=== PATIENT | female | born 1975 | race Caucasian/White ===

== ENCOUNTER 2023-02-05 13:14 | Emergency (ER) | payer BC, MEDICAID, SELFPAY ==
[2023-02-05 13:18] VITALS: BP 130/97; PULSE 97; RESP 20; TEMP 36.6; O2SAT 98; BMI 42.0
--- NOTE | 2023-02-05 13:39 | ED.GENADUL1 ---
HPI - General Adult General Chief complaint: Extremity Problem, Nontraumatic Stated complaint: LOWER EXTREMITY PAIN, LEFT CALF Time Seen by Provider: 02/05/23 13:31 Source: patient Mode of arrival: walk-in Limitations: no limitations History of Present Illness HPI narrative: 48 year old female presents to the ED for left calf pain. She had left knee surgery on 12/21/22 for a torn meniscus. She has had mild calf discomfort since the surgery. Over the past few days her discomfort has increased. States it is now severe. She is in physical therapy. She has been ambulatory with crutches. Denies fever, chills, recent injury. She has intermittent swelling to the left ankle, intermittent N/T to the first and second toes of the left foot. She had a venous Doppler on Wednesday02/02/23 which ruled out a DVT. She has Percocet from her procedure that she takes PRN. Rates her pain 8/10 at this time. Denies chance of . Location: Reports lower extremity Radiation: Reports non-radiation Severity: severe Quality: Reports other (cramping, spasms) Pain Consistency: Reports constant Relieving factors: Reports none Associated symptoms: Reports denies other symptoms Review of Systems ROS Constitutional Denies: fever, chills or fatigue Cardiovascular Denies: chest pain or edema Respiratory Denies: shortness of breath or cough Gastrointestinal Denies: vomiting or diarrhea Musculoskeletal Reports: extremity pain, extremity swelling and muscle cramps; Denies: muscle weakness Integumentary/Breast Denies: rash, itching or redness Neurological Denies: headache or dizziness Exam Constitutional: Vital Signs, click to edit/add: Vital Signs - 24 hr 02/05/23 13:18 Temperature 98 F Pulse Rate [Monito r] 97 H Respiratory Rate 20 Blood Pressure [Le ft Arm] 130/97 H Pulse Oximetry 98 Oxygen Delivery Me thod Room Air Common normals: no apparent distress and oriented x3 General appearance: cooperative; not in distress, not ill appearing and not diaphoretic Respiratory: Common normals: normal respiratory effort Cardio: Rhythm: regular rhythm Peripheral pulses: popliteal pulses present, posterior tibial pulses present and dorsalis pedis pulses present Extremity: Common normals: normal to inspection General: normal exam except as noted Left lower extremity: knee joint Left knee: inspection (No erythema, drainage noted to surgical incision sites; healing well.) and ROM (Full ROM.), lower leg (Tenderness to left calf area. No swelling, erythema, wound, bruising noted.) Left lower leg: inspection and palpation and ankle joint Left ankle: inspection (No swelling noted.), palpation (Nontender.), ROM (Full ROM.) and neurovascular exam (Distal sensation intact.) Skin: Common normals: no rashes or lesions noted, no wounds and no jaundice Course Vital Signs Vital signs: Vital Signs Temperature 98 F 02/05/23 13:18 Pulse Rate 97 H 02/05/23 13:18 Respiratory Rate 20 02/05/23 13:18 Blood Pressure 130/97 H 02/05/23 13:18 Pulse Oximetry 98 02/05/23 13:18 Oxygen Delivery Method Room Air 02/05/23 13:18 Temperature 98 F 02/05/23 13:18 Pulse Rate 97 H 02/05/23 13:18 Respiratory Rate 20 02/05/23 13:18 Blood Pressure 130/97 H 02/05/23 13:18 Pulse Oximetry 98 02/05/23 13:18 Oxygen Delivery Method Room Air 02/05/23 13:18 Discharge Plan Discharge Chief Complaint: Extremity Problem, Nontraumatic Referrals: CARL MONTOYA [Primary Care Provider] - 1 week
[2023-02-05] MEDS: KETOROLAC TROMETHAMINE 60 MG/2 ML VIAL IM (13:53)
[2023-02-05 14:15] LABS: BUN Creatinine Ratio 19.1; Calcium 8.5 mg/dL (8.5-10.1); Carbon Dioxide 27.2 mmol/L (21.0-32.0); Chloride 104 mmol/L (98-107); Estimated GFR (African America >60 (>=60); Estimated GFR (Non-African Ame >60 (>=60); Glucose 93 mg/dL (74-106); Magnesium 1.8 mg/dL (1.8-2.4); Potassium 4.2 mmol/L (3.5-5.1); Sodium 139 mmol/L (136-145)
[2023-02-05 14:47] LABS: Basophils Percent Auto 0.4 % (0.2-2.0); Eosinophils Absolute Auto 0.1 10^3/uL (0.0-0.7); Eosinophils Percent Auto 1.1 % (0.9-7.0); Hematocrit 33.5 % (36.0-48.0); Immature Granulocytes Abs Auto 0.02 10^3/uL (0.00-0.03); Immature Granulocytes Pct Auto 0.2 % (0.0-0.5); Lymphocytes Percent Auto 24.4 % (20.5-60.0); Mean Corpuscular HGB Conc 29.9 g/dL (29.9-35.2); Mean Corpuscular Hemoglobin 23.9 pg (26.7-34.0); Mean Corpuscular Volume 80.1 fL (81.0-99.0); Mean Platelet Volume 11.2 fL (9.5-13.5); Monocytes Absolute Auto 0.4 10^3/uL (0.3-0.8); Monocytes Percent Auto 4.8 % (1.7-12.0); Neutrophils Absolute Auto 5.6 10^3/uL (1.4-6.5); Neutrophils Percent Auto 69.1 % (43.0-75.0); Platelet Count 308 10^3/uL (150-450); Red Blood Count 4.18 10^6/uL (4.20-5.40); Red Cell Distribution Width 14.6 % (11.0-15.0); White Blood Count 8.1 10^3/uL (4.0-11.0)
--- NOTE | 2023-02-05 15:17 | ED_ITS ---
Documented by User: Tia Monroy 02/05/23 16:22 HPI - General Adult General Chief complaint: Extremity Problem, Nontraumatic Stated complaint: LOWER EXTREMITY PAIN, LEFT CALF Time Seen by Provider: 02/05/23 13:31 Source: patient Mode of arrival: walk-in Limitations: no limitations History of Present Illness HPI narrative: 48 year old female presents to the ED for left calf pain. She had left knee surgery on 12/21/22 for a torn meniscus. She has had mild calf discomfort since the surgery. Over the past few days her discomfort has increased. States it is now severe. She is in physical therapy. She has been ambulatory with crutches. Denies fever, chills, recent injury. She has intermittent swelling to the left ankle, intermittent N/T to the first and second toes of the left foot. She had a venous Doppler on Wednesday02/02/23 which ruled out a DVT. She has Percocet from her procedure that she takes PRN. Rates her pain 8/10 at this time. Denies chance of . Location: Reports lower extremity Radiation: Reports non-radiation Severity: severe Quality: Reports other (cramping, spasms) Pain Consistency: Reports constant Relieving factors: Reports none Associated symptoms: Reports denies other symptoms Related Data Previous Rx's Medication Instructions Recorded tizanidine 2 mg capsule (Zanaflex) 2 mg PO TID PRN muscle spasm #14 02/05/23 caps Review of Systems ROS Constitutional Denies: fever, chills or fatigue Cardiovascular Denies: chest pain, edema or shortness of breath with exertion Respiratory Denies: shortness of breath or cough Gastrointestinal Denies: vomiting or diarrhea Musculoskeletal Reports: extremity pain, extremity swelling and muscle cramps; Denies: muscle weakness Integumentary/Breast Denies: rash, itching or redness Neurological Denies: headache or dizziness Endocrine Denies: fatigue Exam Constitutional: Vital Signs, click to edit/add: Vital Signs - 24 hr 02/05/23 13:18 Temperature 98 F Pulse Rate [Monito r] 97 H Respiratory Rate 20 Blood Pressure [Le ft Arm] 130/97 H Pulse Oximetry 98 Oxygen Delivery Me thod Room Air Common normals: no apparent distress and oriented x3 General appearance: cooperative; not in distress, not ill appearing and not diaphoretic Respiratory: Common normals: normal respiratory effort Cardio: Common normals: regular rhythm Rhythm: regular rhythm Peripheral pulses: popliteal pulses present, posterior tibial pulses present and dorsalis pedis pulses present Extremity: Common normals: normal to inspection General: normal exam except as noted Left lower extremity: knee joint Left knee: inspection (No erythema, drainage noted to surgical incision sites; healing well.) and ROM (Full ROM.), lower leg (Tenderness to left calf area. No swelling, erythema, wound, bruising noted.) Left lower leg: inspection and palpation, ankle joint Left ankle: inspection (No swelling noted.), palpation (Nontender.), ROM (Full ROM.) and neurovascular exam (Distal sensation intact.) and foot and digits Left foot and digits: ROM (Full ROM to left foot. ) and neurovascular exam (Distal sensation intact. ) Neuro: Common normals: oriented x3 Skin: Common normals: no rashes or lesions noted, no wounds and no jaundice General skin exam: no rashes or lesions noted Course Vital Signs Vital signs: Vital Signs Temperature 98 F 02/05/23 13:18 Pulse Rate 97 H 02/05/23 13:18 Respiratory Rate 20 02/05/23 13:18 Blood Pressure 130/97 H 02/05/23 13:18 Pulse Oximetry 98 02/05/23 13:18 Oxygen Delivery Method Room Air 02/05/23 13:18 Temperature 98 F 02/05/23 13:18 Pulse Rate 97 H 02/05/23 13:18 Respiratory Rate 20 02/05/23 13:18 Blood Pressure 130/97 H 02/05/23 13:18 Pulse Oximetry 98 02/05/23 13:18 Oxygen Delivery Method Room Air 02/05/23 13:18 Medical Decision Making MDM Narrative Medical decision making narrative: The patient had a negative venous Doppler of the LLE 3 days ago. CBC, BMP, magnesium labs were completed today. Laboratory studies were unremarkable. Follow up with pcp and orthopedist for a recheck, further evaluation and treatment. Return precautions were discussed. She has crutches with her. A prescription was provided for Zanaflex. Lab Data Lab results reviewed: Yes I reviewed the patient's lab results Labs: Lab Results 02/05/23 Range/Units 13:53 WBC 8.1 (4.0-11.0) 10^3/uL RBC 4.18 L (4.20-5.40) 10^6/uL Hgb 10.0 L (12.0-16.0) g/dL Hct 33.5 L (36.0-48.0) % MCV 80.1 L (81.0-99.0) fL MCH 23.9 L (26.7-34.0) pg MCHC 29.9 (29.9-35.2) g/dL RDW 14.6 (11.0-15.0) % Plt Count 308 (150-450) 10^3/uL MPV 11.2 (9.5-13.5) fL Neut % (Auto) 69.1 (43.0-75.0) % Lymph % (Auto) 24.4 (20.5-60.0) % [place] % (Auto) 4.8 (1.7-12.0) % Eos % (Auto) 1.1 (0.9-7.0) % Baso % (Auto) 0.4 (0.2-2.0) % Neut # (Auto) 5.6 (1.4-6.5) 10^3/uL Lymph # (Auto) 2.0 (1.2-3.8) 10^3/uL [place] # (Auto) 0.4 (0.3-0.8) 10^3/uL Eos # (Auto) 0.1 (0.0-0.7) 10^3/uL Baso # (Auto) 0.0 (0.0-0.1) 10^3/uL Sodium 139 (136-145) mmol/L Potassium 4.2 (3.5-5.1) mmol/L Chloride 104 (98-107) mmol/L Carbon Dioxide 27.2 (21.0-32.0) mmol/L Anion Gap 12.0 BUN 17.0 (7.0-18.0) mg/dL Creatinine 0.89 (0.55-1.02) mg/dL Est GFR ( Amer) >60 (>=60) Est GFR (Non-Af Amer) >60 (>=60) BUN/Creatinine Ratio 19.1 Glucose 93 (74-106) mg/dL Calcium 8.5 (8.5-10.1) mg/dL Magnesium 1.8 (1.8-2.4) mg/dL Discharge Plan Discharge Chief Complaint: Extremity Problem, Nontraumatic Clinical Impression: Pain of left calf Patient Disposition: Home, Self-Care Time of Disposition Decision: 15:34 Condition: Good Mode of Transportation: Private Vehicle Prescriptions / Home Meds: New tizanidine [Zanaflex] 2 mg capsule 2 mg PO TID PRN (Reason: muscle spasm) Qty: 14 0RF Instructions: Muscle Cramp (ED), Leg Pain (ED) Additional Instructions: Follow up with your family physician and orthopedist for a recheck, further evaluation and treatment. Stand Alone Forms: Portal Instructions Referrals: CARL MONTOYA [Physician] - 1 week Discharge Date/Time: 02/05/23 16:15 Documented by User: Alex Zamora MD 02/05/23 19:40 HPI - General Adult General Chief complaint: Extremity Problem, Nontraumatic Stated complaint: LOWER EXTREMITY PAIN, LEFT CALF Time Seen by Provider: 02/05/23 13:31 Related Data Previous Rx's Medication Instructions Recorded tizanidine 2 mg capsule (Zanaflex) 2 mg PO TID PRN muscle spasm #14 02/05/23 caps Exam Constitutional: Vital Signs, click to edit/add: Vital Signs - 24 hr 02/05/23 13:18 Temperature 98 F Pulse Rate [Monito r] 97 H Respiratory Rate 20 Blood Pressure [Le ft Arm] 130/97 H Pulse Oximetry 98 Oxygen Delivery Me thod Room Air Course Vital Signs Vital signs: Vital Signs Temperature 98 F 02/05/23 13:18 Pulse Rate 97 H 02/05/23 13:18 Respiratory Rate 20 02/05/23 13:18 Blood Pressure 130/97 H 02/05/23 13:18 Pulse Oximetry 98 02/05/23 13:18 Oxygen Delivery Method Room Air 02/05/23 13:18 Temperature 98 F 02/05/23 13:18 Pulse Rate 97 H 02/05/23 13:18 Respiratory Rate 20 02/05/23 13:18 Blood Pressure 130/97 H 02/05/23 13:18 Pulse Oximetry 98 02/05/23 13:18 Oxygen Delivery Method Room Air 02/05/23 13:18 Medical Decision Making Lab Data Labs: Lab Results 02/05/23 Range/Units 13:53 WBC 8.1 (4.0-11.0) 10^3/uL RBC 4.18 L (4.20-5.40) 10^6/uL Hgb 10.0 L (12.0-16.0) g/dL Hct 33.5 L (36.0-48.0) % MCV 80.1 L (81.0-99.0) fL MCH 23.9 L (26.7-34.0) pg MCHC 29.9 (29.9-35.2) g/dL RDW 14.6 (11.0-15.0) % Plt Count 308 (150-450) 10^3/uL MPV 11.2 (9.5-13.5) fL Neut % (Auto) 69.1 (43.0-75.0) % Lymph % (Auto) 24.4 (20.5-60.0) % [place] % (Auto) 4.8 (1.7-12.0) % Eos % (Auto) 1.1 (0.9-7.0) % Baso % (Auto) 0.4 (0.2-2.0) % Neut # (Auto) 5.6 (1.4-6.5) 10^3/uL Lymph # (Auto) 2.0 (1.2-3.8) 10^3/uL [place] # (Auto) 0.4 (0.3-0.8) 10^3/uL Eos # (Auto) 0.1 (0.0-0.7) 10^3/uL Baso # (Auto) 0.0 (0.0-0.1) 10^3/uL Sodium 139 (136-145) mmol/L Potassium 4.2 (3.5-5.1) mmol/L Chloride 104 (98-107) mmol/L Carbon Dioxide 27.2 (21.0-32.0) mmol/L Anion Gap 12.0 BUN 17.0 (7.0-18.0) mg/dL Creatinine 0.89 (0.55-1.02) mg/dL Est GFR ( Amer) >60 (>=60) Est GFR (Non-Af Amer) >60 (>=60) BUN/Creatinine Ratio 19.1 Glucose 93 (74-106) mg/dL Calcium 8.5 (8.5-10.1) mg/dL Magnesium 1.8 (1.8-2.4) mg/dL Critical Care Time Critical Care Time Attestation: I, Dr Zamora, have reviewed the above progress note and course of action in the ER; agree with the above. I have personally seen and evaluated this patient, gone over history and physical, and discussed disposition and treatment plan with the patient. Discharge Plan Discharge Chief Complaint: Extremity Problem, Nontraumatic Clinical Impression: Pain of left calf Patient Disposition: Home, Self-Care Time of Disposition Decision: 15:34 Condition: Good Mode of Transportation: Private Vehicle Prescriptions / Home Meds: New tizanidine [Zanaflex] 2 mg capsule 2 mg PO TID PRN (Reason: muscle spasm) Qty: 14 0RF Instructions: Muscle Cramp (ED), Leg Pain (ED) Additional Instructions: Follow up with your family physician and orthopedist for a recheck, further evaluation and treatment. Stand Alone Forms: Portal Instructions Referrals: CARL MONTYOA [Physician] - 1 week Discharge Date/Time: 02/05/23 16:15
== END 2023-02-05 16:15 | disposition home or self-care (01) ==
PROVIDERS: Nurse Practitioner Family; Emergency Provider Emergency Medicine
DX: M79.662 Pain in left lower leg (principal)
CPT/HCPCS: 36415; 80048; 83735; 85025; 96372; 99284

== ENCOUNTER 2024-11-01 11:33 | Outpatient (REF) | payer MEDICARE, MEDICAID, SELFPAY ==
--- OUTSIDE RECORDS SUMMARY | 2024-11-07 11:42 | XMS_ITS | CCD ---
Author Organization [facility] Care Team Providers Care Physical Therapist Aide Name Role Phone MARKER, AMY Admitting Unavailable MARKER, AMY Attending Unavailable SOFIYA COLE Primary Care UnavailRUPINDER Wahl Consulting Unavailable MARKER, AMY Consulting Unavailable AMBREEN ZENDEJAS Consulting Unavailable None, No PCP Unavailable Unavailable Unavailable Unavailable Lidnsay, Toney P Unavailable Melody Brandon Unavailable Sofiya Cole MD Primary Care Provider [phone] Korey Ford MD Attending Provider [phone] Simms DO Toney P Primary Care Provider Toney Montoya MD Primary Care Provider Lindsay KAUFMAN Toney P Primary Care Provider LINDSAY, TONEY P Referring Unavailable HOUSE, TONEY P Primary Care Unavailable NIENBERG, KYLER Whitmore Attending Unavailable HOUSE, TONEY P Referring Unavailable HOUSE, TONEY P Primary Care Unavailable PERRY, ZEESHAN Renteria Attending Unavailable PERRY, ZEESHAN E Referring Unavailable HOUSE, TONEY P Primary Care Unavailable PERRY, ZEESHAN E Admitting Unavailable PERRY, ZEESHAN E Attending Unavailable HOUSE, TONEY P Referring Unavailable HOUSE, TONEY P Primary Care Unavailable HOUSE, TONEY P Referring Unavailable HOUSE, TONEY P Primary Care Unavailable HOUSE, TONEY P Referring Unavailable HOUSE, TONEY P Primary Care Unavailable HOUSE, TONEY P Referring Unavailable HOUSE, TONEY P Primary Care Unavailable PERRY, ZEESHAN E Attending Unavailable PERRY, ZEESHAN E Referring Unavailable HOUSE, TONEY P Primary Care Unavailable PRERY, ZEESHAN E Admitting Unavailable PERRY, ZEESHAN E Attending Unavailable PERRY, ZEESHAN E Referring Unavailable HOUSE, TONEY P Primary Care Unavailable HOUSE, TONEY P Referring Unavailable HOUSE, TONEY P Primary Care Unavailable NIENBERG, KYLER S Attending Unavailable HOUSE, TONEY P Referring Unavailable HOUSE, TONEY P Primary Care Unavailable KYLER CARVAJAL Haim Attending Unavailable HOUSE, TONEY P Referring Unavailable HOUSE, TONEY P Primary Care Unavailable Naye SANTIZO, Sofiya Primary Care Provider [phone] Jorge Aguilar DO Attending Provider [phone] JORGE AGUILAR Attending Unavailable KAT, THI Hanna Attending Unavailable THI STEPHENS Referring Unavailable LAUREN, JORGE Attending Unavailable Lauren, Jorge Admitting Unavailable Sofiya Cole Primary Care Unavailable Lauren, Jorge Attending Unavailable Sofiya Cole Primary Care Unavailable Korey Ford Attending Unavailable Korey Ford Admitting Unavailable Korey Ford Attending Unavailable HOUSE, TONEY P Primary Care Unavailable HOUSE, TONEY P Primary Care Unavailable Logan, Korey Admitting Unavailable Korey Ford Attending Unavailable HOUSE, TONEY P Primary Care Unavailable HOUSE, DO TONEY P Attending Unavailable HOUSE, TONEY P Primary Care Unavailable HOUSE, DO TONEY P Attending Unavailable HOUSE, TONEY P Primary Care Unavailable HOUSE, DO TONEY P Attending Unavailable HOUSE, DO TONEY P Attending Unavailable HOUSE, TONEY P Primary Care Unavailable Allergies Allergy Classification Reported Allergen(s) Allergy Type Date of Onset Reaction(s) Facility (1 source) Amoxicillin Drug Allergy itching Acompli Other (1 source) Amoxicillin Drug Allergy 08-16-2021 [facility] Repository Medications Current Medications Medication Drug Class(es) Dates Sig (Normalized) Sig (Original) acetaminophen 500 mg oral tablet (10 sources) take 1 tablet by mouth every six hours as needed for pain acetaminophen (TYLENOL EXTRA STRENGTH) 500 mg tablet Take 1 tablet (500 mg total) by mouth every 6 (six) hours as needed for pain. Active [id number] 200 actuat albuterol 0.09 mg/actuat metered dose inhaler (2 sources) beta2-Adrenergic Agonist Start: 08-16-2021 take 2 puff(s) by inhalation four times daily as needed Albuterol Sulfate HFA 108 (90 Base) MCG/ACT 2 puffs Inhalation qid prn Aug, Active Start: 09-05-2020 End: 05-18-2024 take 2 puff(s) by mouth every four hours VENTOLIN HFA 90 mcg/actuation inhaler INHALE 2 PUFFS BY MOUTH EVERY 4 HOURS DIRECTED 09/05/2020 05/18/2024 Discontinued amitriptyline hydrochloride 100 mg oral tablet (15 sources) Tricyclic Antidepressant Start: 05-14-2024 End: 09-19-2024 take 1 tablet by mouth once daily at bedtime amitriptyline (ELAVIL) 100 mg tablet Take 1 tablet (100 mg total) by mouth once daily at bedtime. 05/14/2024 Active Azithromycin (1 source) Macrolide Antimicrobial Azithromycin Active busPIRone hydrochloride 10 mg oral tablet (20 sources) Start: 04-26-2024 End: 09-19-2024 busPIRone (BUSPAR) 10 mg tablet Take 1 tablet (10 mg total) by mouth. 04/26/2024 Active take 1 tablet by mouth in the mo rning busPIRone (BUSPAR) 5 mg tablet Take 1 tablet (5 mg total) by mouth in the morning. Active calcium carbonate 1250 mg or al tablet (16 sources) Start: 12-05-2021 calcium carbon ate (OS-CHRIS) 500 mg calcium (1,250 mg) tablet 12/05/2021 Active End: 09-19-2024 take 1 tablet by mouth in the morning calcium carbonate (Os-Chris) 1250 (500 Ca) MG tablet Take 1 tablet by mouth in the morning and 1 tablet before bedtime. 09/19/2024 Discontinued cariprazine 1.5 mg oral capsule (20 sources) Atypical Antipsychotic Start: 10-01-2020 take 1 capsule by mouth once daily VRAYLAR 1.5 mg capsule Take by mouth daily. 10/01/2020 Active Vraylar Active cholecalciferol 0.125 mg oral tablet (15 sources) Vitamin D End: 09-19-2024 take 1 tablet by mouth in the morning cholecalciferol, vitamin D3, 5,000 units tablet Take 1 tablet (5,000 Units total) by mouth in the morning. Active citalopram 20 mg oral tablet (12 sources) Serotonin Reuptake Inhibitor Start: 04-26-2024 End: 09-19-2024 take 1 tablet by mouth in the morning citalopram (CeleXA) 20 mg tablet Take 1 tablet (20 mg total) by mouth in the morning. 04/26/2024 Active dicyclomine hydrochloride 20 mg oral tablet (17 sources) Anticholinergic Start: 08-24-2023 take 1 tablet by mouth every six hours dicyclomine (Bentyl) 20 MG tablet Take 20 mg by mouth every 6 (six) hours 08/24/2023 Active ferrous gluconate 324 mg oral tablet (12 sources) Start: 08-07-2024 take 1 tablet by mouth at mealtime ferrous gluconate (Fergon) 324 (38 Fe) MG tablet Take 324 mg by mouth in the morning. Take with meals. 08/07/2024 Active levothyroxine sodium 0.2 mg oral tablet (20 sources) l-Thyroxine Start: 09-11-2024 End: 09-06-2025 take 1 tablet by mouth once daily levothyroxine (Synthroid, Levoxyl) 200 MCG tablet Indications: Postoperative hypothyroidism (CMS/HCC) Take 1 tablet (200 mcg) by mouth Daily 90 tablet 3 09/11/2024 09/06/2025 Active Start: 09-11-2024 End: 09-06-2025 take 1 tablet by mouth once daily levothyroxine (Synthroid, Levoxyl) 50 MCG tablet Indications: Postoperative hypothyroidism (CMS/HCC) Take 1 tablet (50 mcg) by mouth Daily 90 tablet 3 09/11/2024 09/06/2025 Active Start: 02-19-2024 End: 09-11-2024 take 1 tablet by mouth before mealtime levothyroxine (Synthroid, Unithroid) 300 MCG tablet Take 1 tablet by mouth in the morning. Take before meals. 02/19/2024 09/11/2024 Discontinued (Dose adjustment) Start: 01-01-2022 take 300 ug by mouth in the morning levothyroxine sodium (EUTHYROX ORAL) Take 300 mcg by mouth in the morning. 01/01/2022 Active Start: 12-05-2021 take 1 tablet by sommer th once daily Euthyrox 200 MCG Oral Tablet TAKE 1 TABLET BY MOUTH ONCE DAILY Quantity: 30 Refills: 0 Ordered: 05-Dec-2021 DO Start : 05-Dec-2021 Active End: 05-18-2024 take 1 tablet by mouth in the morning levothyroxine (EUTHYROX) 50 MCG tablet Take 1 tablet (50 mcg total) by mouth in the morning. 05/18/2024 Discontinued (Ineffective) meclizine hydrochloride 25 mg oral tablet (5 sources) Antiemetic Start: 09-14-2024 take 1 tablet by mouth three times daily as needed for dizziness meclizine (Antivert) 25 MG tablet Take 25 mg by mouth 3 (three) times a day as needed for dizziness 09/14/2024 Active meloxicam 7.5 mg oral tablet (11 sources) Nonsteroidal Anti-inflammatory Drug Start: 06-07-2024 take 1 tablet by mouth in the morning meloxicam (MOBIC) 7.5 mg tablet Take 1 tablet (7.5 mg total) by mouth in the morning. 06/07/2024 Active mirtazapine 30 mg oral tablet (11 sources) Start: 06-28-2024 take 1 tablet by mouth at bedtime mirtazapine (Remeron) 30 MG tablet Take 30 mg by mouth at bedtime 06/28/2024 Active omeprazole 40 mg delayed release oral capsule (20 sources) Proton Pump Inhibitor End: 09-19-2024 take 1 capsule by mouth once daily omeprazole (PriLOSEC) [address] capsule Take 40 mg by mouth Daily Active PriLOSEC Active Completed/Discontinued Medications Medication Drug Class(es) Dates Sig (Normalized) Sig (Original) ascorbic acid 500 mg oral capsule (2 sources) Vitamin C End: 09-19-2024 take 1 capsule by mouth once daily Ascorbic Acid (Vitamin C) 500 MG capsule Take 1 each by mouth Daily 09/19/2024 Discontinued aspirin 845 mg / caffeine 65 mg oral powder (1 source) Platelet Aggregation Inhibitor, Nonsteroidal Anti-inflammatory Drug, Central Nervous System Stimulant, Methylxanthine End: 05-18-2024 aspirin-caffeine 845-65 mg powder in packet Take by mouth as needed (headache). 05/18/2024 Discontinued diclofenac sodium 50 mg delayed release oral tablet (1 source) Nonsteroidal Anti-inflammatory Drug Start: 06-16-2023 End: 05-18-2024 take 1 tablet by mouth in the morning, then take 1 tablet by mouth at bedtime diclofenac (VOLTAREN) 50 mg EC tablet Take 1 tablet (50 mg total) by mouth in the morning and 1 tablet (50 mg total) before bedtime. 60 tablet 06/16/2023 05/18/2024 Discontinued dimenhyDRINATE 50 mg oral tablet (1 source) End: 05-18-2024 take 1 tablet by mouth once daily as needed dimenhyDRINATE (DRAMAMINE) 50 mg tablet Take 50 mg by mouth nightly as needed for movement disorders. 05/18/2024 Discontinued docusate sodium 100 mg oral capsule (6 sources) Start: 12-05-2021 End: 09-19-2024 take 1 capsule by mouth twice daily Docusate Sodium 100 MG Oral Capsule TAKE 1 CAPSULE BY MOUTH TWICE DAILY Quantity: 28 Refills: 0 Ordered: 05-Dec-2021 DO Start : 05-Dec-2021 Active doxycycline monohydrate 100 mg oral capsule (1 source) Tetracycline-class Drug Start: 12-17-2020 take 1 capsule by mouth every twelve hours Doxycycline Monohydrate 100 MG 1 capsule Orally every 12 hrs for 7 days Dec, Not-Taking fluticasone propionate 0.05 mg/actuat metered dose nasal spray (2 sources) Corticosteroid Start: 12-17-2020 take 1 spray(s) nasal route once daily Fluticasone Propionate 50 MCG/ACT 1 spray in each nostril Nasally Once a day for 30 day(s) Dec, Not-Taking Start: 11-06-2020 End: 05-18-2024 take 1 spray(s) nasal route once daily fluticasone propionate (FLONASE) 50 mcg/actuation nasal spray Indications: Chronic rhinitis Administer 1 spray into each nostril daily. 15.8 mL 12 11/06/2020 05/18/2024 Discontinued magnesium gluconate 550 mg oral tablet (1 source) End: 05-18-2024 take 1 tablet by mouth in the morning, then take 1 tablet by mouth at bedtime magnesium 30 mg tablet Take 1 tablet (30 mg total) by mouth in the morning and 1 tablet (30 mg total) before bedtime. 05/18/2024 Discontinued methylPREDNISolone 4 MG Oral Tablet Therapy Pack (1 source) Start: 08-07-2021 methylPREDNISo lone 4 MG Oral Tablet Therapy Pack TAKE BY MOUTH DIRECTED ON INSIDE OF PACKAGE Quantity: 21 Refills: 0 Ordered: 07-Aug-2021 DO Start : 07-Aug-2021 Active Omeprazole TBEC (10 sources) Omeprazole TBEC Quantity: 0 Refills: 0 Ordered: 07-Apr-2021 DO Active predniSONE 10 mg oral tablet (2 sources) Start: 08-12-2022 End: 05-18-2024 take 1 tablet by mouth twice daily, then take 1 tablet by mouth once daily predniSONE (DELTASONE) 10 mg tablet TAKE 1 TABLET BY MOUTH TWICE DAILY FOR 7 DAYS. THEN TAKE 1 TABLET ONCE DAILY FOR 7 DAYS UNTIL GONE 08/12/2022 05/18/2024 Discontinued predniSONE Activ e sertraline 25 mg oral tablet (7 sources) Serotonin Reuptake Inhibitor End: 09-19-2024 take 1 tablet by mouth once daily sertraline (Zoloft) 25 MG tablet Take 1 tablet by mouth Daily 09/19/2024 Discontinued Zoloft Active Sertraline HCl CONC (10 sources) Sertraline HCl C ONC Quantity: 0 Refills: 0 Ordered: 07-Apr-2021 DO Active traMADol hydrochloride 50 mg oral tablet (2 sources) Opioid Agonist Start: 2 take 1 tablet by mouth every six hours as needed for pain traMADol HCl - 50 MG Oral Tablet TAKE 1 TABLET Every 6 hours As Needed for pain Quantity: 12 Refills: 0 Ordered: 05-Dec-2021 Edy Dominguez MD Start : 05-Dec-2021 Active traZODone hydrochloride 50 mg oral tablet (1 source) Serotonin Reuptake Inhibitor Start: 1 End: 4 traZODone (DESYREL) 50 mg tablet 09/19/2020 05/18/2024 Discontinued Problems Active Problems Problem Classification Problem Date Documented Date Episodic/Chronic Administrative/social admission (2 sources) Patient encounter status; Translations: [Dietary counseling and surveillance] 09-11-2024 Episodic Anxiety disorders (1 source) Anxiety disorder, unspecified; Translations: [ANXIETY DISORDER UNSPECIFIED] Onset: 09-02-2020 Chronic Cancer of thyroid (11 sources) Malignant tumor of thyroid gland; Translations: [Malignant neoplasm of thyroid gland] Onset: 03-06-2024 09-11-2024 Chronic Complications of surgical procedures or medical care (8 sources) Postoperative hypothyroidism; Translations: [Postprocedural hypothyroidism] Onset: 03-06-2024 09-11-2024 Chronic Conditions associated with dizziness or vertigo (4 sources) Dizziness and giddiness; Translations: [DIZZINESS AND GIDDINESS] Onset: 08-28-2020 Episodic Deficiency and other anemia (2 sources) Iron deficiency anemia; Translations: [Iron deficiency anemia, unspecified] 09-19-2024 Episodic Deficiency and other anemia (1 source) Iron deficiency anemia, unspecified; Translations: [Iron deficiency anemia, unspecified] Onset: 08-01-2024 Episodic Disorders of lipid metabolism (1 source) Hyperlipidemia, unspecified; Translations: [Hyperlipidemia, unspecified] Onset: 06-19-2024 Chronic Essential hypertension (1 source) Essential (primary) hypertension; Translations: [Essential (primary) hypertension] Onset: 06-19-2024 Chronic Nutritional deficiencies (2 sources) Vitamin D deficiency; Translations: [Vitamin D deficiency, unspecified] 09-11-2024 Chronic Osteoarthritis (10 sources) Osteoarthritis of left knee joint; Translations: [Unilateral primary osteoarthritis, left knee] Onset: 11-03-2022 11-03-2022 Chronic Other connective tissue disease (1 source) Arthrodesis status; Translations: [ARTHRODESIS STATUS] Onset: 09-02-2020 Episodic Other female genital disorders (3 sources) Abnormal uterine bleeding; Translations: [Other specified abnormal uterine and vaginal bleeding] 09-19-2024 Chronic Other lower respiratory disease (1 source) Shortness of breath; Translations: [SHORTNESS OF BREATH] Onset: 09-02-2020 Episodic Other lower respiratory disease (1 source) Unspecified acute lower respiratory infection; Translations: [Unspecified acute lower respiratory infection] Onset: 08-14-2024 Episodic Other nervous system disorders (2 sources) Acute postoperative pain; Translations: [Other acute postoperative pain] Episodic Other non-traumatic joint disorders (1 source) Knee pain Onset: 10-26-2024 Episodic Other nutritional; endocrine; and metabolic disorders (10 sources) Body mass index 40+ - severely obese; Translations: [Body mass index (BMI) 40.0-44.9, adult] Onset: 12-04-2020 12-04-2020 Chronic Other nutritional; endocrine; and metabolic disorders (2 sources) Severe obesity; Translations: [Class 3 severe obesity due to excess calories without serious comorbidity with body mass index (BMI) of 40.0 to 44.9 in adult ([facility])] 09-11-2024 Chronic Other nutritional; endocrine; and metabolic disorders (1 source) Obesity, unspecified; Translations: [Obesity, unspecified] Onset: 06-19-2024 Chronic Pulmonary heart disease (1 source) Personal history of pulmonary embolism; Translations: [PERSONAL HISTORY PULMONARY EMBOLISM] Onset: 09-02-2020 Episodic Spondylosis; intervertebral disc disorders; other back problems (20 sources) Lumbosacral spondylosis without myelopathy; Translations: [Spondylosis without myelopathy or radiculopathy, lumbosacral region] Onset: 04-12-2017 09-07-2024 Chronic Spondylosis; intervertebral disc disorders; other back problems (20 sources) Peripheral neuritis; Translations: [Radiculopathy, lumbar region] Onset: 11-19-2021 11-19-2021 Episodic Thyroid disorders (20 sources) Nontoxic goiter, unspecified; Translations: [Thyroid nodule] Onset: 09-02-2020 01-30-2021 Chronic Urinary tract infections (1 source) Urinary tract infection, site not specified; Translations: [UTI SITE NOT SPECIFIED] Onset: 09-02-2020 Episodic Past or Other Problems Problem Classification Problem Date Documented Da te Episodic/Chronic Joint disorders and dislocations; trauma-related (10 sources) Acute tear of meniscus of left knee; Translations: [Unspecified tear of unspecified meniscus, current injury, left knee, initial encounter] Onset: 11-03-2022 11-03-2022 Episodic Mood disorders (10 sources) Mood disorders Onset: 12-25-2020 12-25-2020 Other non-traumatic joint disorders (9 sources) Hip pain; Translations: [Pain in right hip] Onset: 07-18-2018 07-18-2018 Episodic Other non-traumatic joint disorders (1 source) Pain in right hip joint; Translations: [Pain in right hip] Onset: 07-18-2018 07-18-2018 Episodic Unclassified (1 source) Cough R05.9 Onset: 08-16-2021 Resolved: 08-16-2021 Viral infection (1 source) COVID-19 Onset: 08-16-2021 Resolved: 08-16-2021 Results Test Name Value Interpretation Reference Range Facility ECG 12-LEADon 11-05-[address] [address] Electrocardiograph Report Signed Patient: LAURO PINTO MR#: [id number] : 1975 Acct:[id number] Age/Sex: 49 / F ADM Date: 11/03/24 Loc: PST Attending Dr: Jorge Aguilar D.O. Ordering Physician: Jorge Aguilar D.O. Date of Service: 11/03/24 Procedure(s): ECG 12 lead Accession Number(s): [id number] cc: [facility] Test Date: 2024-11-03 Pat Name: LAURO PINTO Department: Room: - Gender: Female Solids Control Technician: : 1975 Requested By: JORGE AGUILAR Order Number: [id number] Reading MD: CHUCKY MANZANO Measurements Intervals [place] Rate: 63 P: 56 FL: 147 QRS: -5 QRSD: 92 T: 17 QT: 410 QTc: 421 Interpretive Statements SINUS RHYTHM Electronically Signed On 11-05-2024 8:08:21 EST by CHUCKY MANZANO Dictated By: Chucky Manzano D.O. Signed By: 11/05/24 0808 DD/ 1358 TD/TT: Universal Winding Machine Operator: [facility] Radiology, Radiologi MD gwyn - 11/05/2024 [place] [address] Electrocardiograph Report Signed Patient: LAURO PINTO MR#: [id number] : 1975 Acct:[id number] Age/Sex: 49 / F ADM Date: 11/03/24 Loc: PST Attending Dr: Jorge Aguilar D.O. Ordering Physician: Jorge Aguilar D.O. Date of Service: 11/03/24 Procedure(s): ECG 12 lead Accession Number(s): [id number] cc: [facility] Test Date: 2024-11-03 Pat Name: LAURO PINTO Department: Room: - Gender: Female Solids Control Technician: : 1975 Requested By: JORGE AGUILAR Order Number: [id number] Reading MD: CHUCKY MANZANO Measurements Intervals [place] Rate: 63 P: 56 FL: 147 QRS: -5 QRSD: 92 T: 17 QT: 410 QTc: 421 Interpretive Statements SINUS RHYTHM Electronically Signed On 11-05-2024 8:08:21 EST by CHUCKY MANZANO Dictated By: Chucky Manzano D.O. Signed By: 11/05/24 0808 DD/ 1358 TD/TT: Universal Winding Machine Operator: [facility] ECG 12-LEADOrdered By: Radio logist Radiology on 11-05-2024 [facility] Work Phone: ECG 12-LEADon 11-03-2024 Radiology Study observation (narrative) [facility] HCG ( test) Ql (U)o n 11-01-2024 Interpretation and review of laboratory results Normal [facility] Preg Test, Ur Negative Negative [facility] Claudio 11-01-2024 L ------ Specimen: [id number] Received: 11/02/24123 Status: WALDO Madsen Num: [id number] Spec Type: Surgical Subm Dr: Jorge Aguilar Tissues: A Endometrium - Biopsy (ENDOMETRIAL BX) Procedures: JADA/Herson Yusuf/Va L4 Age/ Patient Sex Location Account Attending Physician Lauro Pinto 49/F LABELL [id number] Jorge Aguilar SPEC NUM: [id number] RECD: 11/02/24 STATUS: WALDO MADSEN NUM: [id number] MIGUELITO: 11/01/240000 SUBM DR: Jorge Aguilar ENTERED: 11/02/[address]: NEAL TYPE: Surgical DEPT: S ENTERED BY: [id number] RECV BY: [id number] ORDERED: HE/2, Gross/Micro L4 ORDERED: HE/2, Gross/Micro L4 Pathological Diagnosis Endometrium, biopsy: Fragments of stripped surface endometrium with ciliated cell metaplasia and scant endometrial stroma (see comment). Comment: The findings are consistent with endometrial atrophy. The differential diagnosis includes sampling error. Clinical and radiographic correlation is recommended. Clinical Information Dysfunctional uterine bleeding Gross Description Part A is received in formalin labeled with the patients name, date of , and EMBx is a pale perez mucoid material, admixed with feathery duarte-pink tissue fragments, 0.8 x 0.3 x 0.1 cm in aggregate. The specimen is filtered and entirely submitted in a single cassette. (1, ns, [id number] A) Microscopic Description Sections examined support the above rendered diagnosis. Specimen: [id number] Received: 11/02/24 Status: WALDO Madsen Num: [id number] Spec Type: Surgical Subm Dr: Jorge Aguilar Tissues: A Endometrium - Biopsy (ENDOMETRIAL BX) Procedures: HE/2, Gross/Micro L4 Patient: Lauro Pinto [id number] (Continued) Signed (signature on file) India Reyes MD 11/03/24 0838 Normal [facility] Outside Recordson 10-31-2024 Outside Records [id number][id number] Other Radiology Report on 08-15-2024 Rad - Other Radiology Report [id number]#[id number] [facility] XR CHEST 2 VWSon 08-14-2024 XR CHEST 2 VWS XR CHEST 2 VWS XR CHEST 2 VWS INDICATION: Chest cold. FINDINGS: The cardiac silhouette is normal in size. The trachea is midline. No focal pulmonary consolidation. No pleural effusion. No pneumothorax. IMPRESSION: Normal chest x-ray. Finalized by Modesto Montalvo MD on 08/14/2024 4:51 PM Normal [facility] Coding Summaryon 08-02-2024 Coding Summary HTMLBase 64 WylejypoOIb9bUi+PGhlYWQ+PE 1WKUDuZ21vcEYboY5xD0QHJHpY BrzgAWOZWTcLRoJwjrVhBB2teN NjZXJu IC8+HO7gRFDcRetfiSWsa7K4gG U2J10gis0sCEcxtJE6TKCzDfJa nicoo6duwBy2TUvlZqszHsSc BWHosK74YQA5jQ54Rf82wAWrqJ Wrw2madSw8GjQpWXCwTQC5gQow MGblg6JjNZGjK56qlUPav7Q4 CAPfcAvoyHLbKfDhsUW0hZ9yQC zdhgbye2ifiibkFwt7rr24gHHc l5R2bWK0D0XtumC0ZUYtpWUl PhoouPWJyE8sletxd6ktmiifGi FhXQJmMZc1YFf2ZBNztIzmQgLq DF96SMB5OTCvjyHcL3ExXARj rYsiNcF0j2A0Rc7FT5CBIcuaW7 VNTUFSWTwvdGQ+DX27vb25A7Vu QzoxFum1LVAkTCE8eEO3mA1o YVIxNLuwi8R9tFI9C5VmnqGbnf 9tv8sqPJGsJVazC21qjWTbc0N0 JGKfbQX0XVJlrYrpMbYmaL76 Oyc+KLNleDpwh7GbZmovs0pvd5 mygZi2WdrvVYKhwfWreFjhLSG7 l5FfJn9qSMKjvJX8yJQ5oZ6v ObEbKhH6DEpeK985QkIilYJwEv fdK90zW8HxcET+ZOQwCrr6JFWo xAesPL2aK2EkQXFlowihgJCh xXuvLJ9dTMKilirvPZFqwD7cUU DgY6s8LjNaQwL8AKlgG0SbUAYf fecpZj21yD6kHjQdRhR2HZns M6VmvwY2GDDmiYArJLkfAIU8S4 0sa2I7FIRfTVZkPUX6mSQ5pE0u bGlnbjogbGVmdDsgdmVydGlj RAkbYTokJ349OXAliPftMaGeTM luZyBEYXRlOiAgMTEvMjcvMjAy NDwvdGQ+IYRjOEY2aZpjMFFg rRSmDIdcDk1vfJxvcCqyAN6zXI XznhmeLRNvjM4lBTLdmGNzoYjw FA2lXBNpkbpdr586LsZaSEY6 FMNcvUGyT1WmfL5xCyVlSQBwEK XwU1FssAMtQQwdG111IJgxMnZ3 GQBwkxMvK6HmHWDfuFyiCsV7 h8X4Uw2Oq2ZvugcdX8OqkWCrLo GzPhdaSRg1W0PcLczytOP+PC90 ZAWoSQ58VJa0PYT7nZfrSAlx BVRgJ7EswC9tCuXoVFXwXTPlBw c+PHRhYmxlIHdpZHRoPScxMDAl OkSouPlgHW0jTn3yIRBiODGg rLujoFTdFsMzz6kkIALgJFyfHR 9nlBiwQ3EmvAF4MZBcr2b9De86 R77kJ4UdvNF+ZVFkcNW5zHQ7 oR9fGhYqPmL8APcaL248PvSshC BzVatnl9cco3slmDh8OcX3BBDn huZulNstNYC7o3YoYc66S44n IHdpZHRoPSIxNSUiIHZhbGlnbj 2qjW3hCw0+SIElbEO8nQK8uQ5z GsYuNgZ1TLneX388TiPmkRMx Ijxou3jwm8giiVw6HaJlMAFgiy DqeVjzOGH8e0VqEt37F6AerLxi v0EtZdv4kz37zJZvv9D4mUD5 D7JuBORfjpkmkLNswPhoMB3wYQ QfteplIHDpqY3gERAnR9x4MlKj XtH1IHqyW6AtaaZ7WFRdgUOc BVGhlLSBnB6bxgtta8xvxikxAs ChPCVgSVh1FUs0OVWoxKfaUkKt TRW5EuT8GBV5iSYiwR6hoJhd prmvxL5iDpo+ERL4lDKxqOMQMB 1lOjwvdGQ+PXUoDUG3uAwiLMql TWMkqD3eBKEzN0x6WqYgAfM1 XEqwK7FxftP8PPWwrJGaWBRgoC WEdG0mfkylb8wiqufzToBsIMRg MYw1XUb9DBBwdDktLkGkNPZ8 DiG7ASR4fDOctR7woIokosvgjW 9wOyc+RxupdFamHWH6XLk7D8Um Sst8GJMzdIqfSX4lwQUrLUtp Lv4dbPbjzOiqRC3lKPHkwpxrp3 00CeCrv9zaJCSilJFyORfwXZJ0 D19bx5S6ZCXbILRiHQU4yEW7 oE9jwFzdhyvitFBxqInnimLcuE iuHYtbCKcfL229QSCrtUaqWyRx VSt4K1MoCrj9UFCncDaqMD8d aNReLDigLs2vrQpflLpzYT8kYW Siaolen911DhFgg3eeCBYzkVEr AGrhNKL2V54fl7U1ECZcXCYk GAV4kOK4tC0juGfhekynoJKarB gabzBumNdhRBsdETddH086FDLd oJuxAgNofAi5H4DcHyh5XMLe cFycUB0tkJBvQKnvYg4tiEzmtL ppZX8uEALqymvqg458RaKaf0ht CXWwyXKuSLsmQIN4Q32xg0Z2 TEKbBZEgHNV5iAV4rV6exLscav ogbGVmdDsgdmVydGljYWwtYWxp Y190YZWkwUuyTdNerUskqkHt YOfpWDd5Y7TeBcxluIS+PC90YW EpQT09yOTqeFUkx6tatWi8XrLw UIQsPHY2qBszZRmla8TpVFGk T45hpGZuu1W3YIBjmZprfRHyDw QqkDC1rC3zVKihmhsuc9tcbyiu Lawpk0jxmi08mX67X24rHFem XRYgVZOpGKBnVLIftHpsvk1jsX 9wIi8+VUKokGH5gKX3jM1qBBJv UhN7WJspV168KuUhbUWjIkdd y5shb9jqiVr1ZrA9TAGgyvRaeG rlXNQ0v1AwPs18P43yRTtjBUWr CGRwNWFgTFIasUhlkk3xvK7y Ii8+PXNimED5bSL9hE9nYcDnIk J9ENnaD102NuNunTOsGniiY80a H0OspKU+SHOnNcv9GCLfeUog VX7nxZKnVNlyJy4iGRH5BvNhAg QlPRtdC3OpDFHkktashyflmFF9 ZWOuGRZuyP08Bo3alSqiJBMk mQLBcT5lfyqxu3wzkarpTpYnDL XdGPg2BRb0GANztDbbXiDmPRN1 ZtP2RHY2iSOqpT5euDihybzd aN7fS9WlMDDsdixnLq35kN8gUn SiKyG3AIqyKym+TUFSVElOLCBN LNDVVDwTBJVGBH80CD76cHBy k7Y7wJC6P1BuVXZaqiloorohzD M2FFGxAHLncW45hYOxVFfjXb0e a5X8z627NPArWYOwaD39Wp3v zPllSRWzxMQBhM1ifbmhy5nodj xnEdFnTIOiWAj7POk7HVToyCkp GaLfOXF2QeX9BEO2aBBmqU9d uFygkytlrS7eOjp+MDUvMjEvMT y9HawmrBH+RMWsRBN2gZbaWEal FNXwnZ4bICXyS6k0NxZtYaH7 JMdkB0OiNSNznrxrKw59iW4dBn GqIvX0MWtxS7IynkW5VDHyuKKj PDwtILU4Y72lw6T9ESFxPRHv EAR0nWV1aO1zrCbnpvggvCLlgD craxEyaWufPCnkOGemE243EILu uUpcFdL1MUsnIDJvOV93YZ60 uBMvg6S5iOG1D9MjUDPfmoixgx iyvIE8FTLlRDJwbZ28qPMzAGrg Pm8lg5V7l444UTHzBPAmmH16 Jb0ilVfbBDMvpHYBuO7ydjzet0 ctmpvpCoHrWHUuAUs7TSb2RDBw kVmiOlYlFLC4UcE6LXI4xERl zP3jmTdtkdcazF6pCeb+RkVNQU fASS24TK87pOKlk6P4xYO3P1Pk KEKgnngadeelzJC1YRCdWBQp nR44oSGcSVgjGi0xx8J9g867FJ PsPHAwjB96Ma1anJioHQDpcRCO nT5yzuugp5filjjoFeGeWCZl NOk0UMz9ZXDusRaxYqYcJLV9Yp Y2KLM3hDWqiT8irDxtapmylN8w Oyc+PNH3TJQ4qfoxrhd2H1Sf PjwvdHI+IC71CLWnLG84uFSzkF Qwo5mxsGg5SgSaXXQgSQF3tUgn FWxik3DsHYBxD25xsULvl8P7 QALfzTdefDZzEoUnjJO1qF5jMO ubsxatp2kdsghxJkjad7bdvb06 sR49C95aXSpzEUXmVDChHTTs NUZtyTdncm0aeT9iAq5+PGNvbC D1cKI5iM0jIzJlJuE8DAnfU811 QdJveVQpMqocx9ecs5wykFr5 OnDbQPLknjUghAjsCVV6u9SuRd 20G56mKBtlYXSpOIXhQWEyOYDs sKewil9haB0jJx4+CS6vc4id zy70jW83kVS+QAXsQKZ0dIaiPT iyFLMyaZ9vZWjkGnL9QPVjYjQi cE74sTDyAJlaFp9snDgnoVlg LO4hWTJyavjkc039MfYqg1zfUJ BiqUIhPOqoNMR3X02gn6C2PPRl AEJaUJP6jAD1oX7dgYxrbttx bGVmdDsgdmVydGljYWwtYWxpZ2 29BXLdoJgqPwDfnNZmZ5ogneAC RV2wHndplWV+YVDaTDS3iLhv BUcnNVMtxW2gHCTvZ8k5OrZsMm W8NDpaJ3OchnE4LBPjnXEgJHIb iPMDcY1dvnaun1jkporfTlIz OUTvNSo0VLp7GXIazXitKfWeVH M1VsK1BUI6wKChfH5ovGjyozot qQ2qJno+RklOOjwvdGQ+PHRk UGY7oCqyZJxbYRRmyY5eTNYrN6 h4PgSxHeX6QFnaL4LktwY3OMVk hVPpQMWrhNFPhU3andpex1si ldqvFdSmBINoBBs3AEc8LOKijV szHcPhVDH7BkR8TNU5pRJqlX2s hQfdwogysD6bAxl+TVJOOjwv dGQ+IIQqRUH9iDohPOzmRVMuxY 1bGVPnQ5c4FhSsGzG0QCguE4Ze puY2EWSlxENeMONoqUOYqI3c ngmqm5ssqeiuIfHmYRZwKUs6RD t2PDKafVsxThSzTCF5AsD7TCU8 bIWdhJ3icJoaaciiwE9iTeh+ OPL2YLJ3PO32UG13V6QkLvnloO FibGU+PHRhYmxlIHdpZHRoPScx BOYjQtXxlZzwAY8lLc3uOLZu LWN (more content not included)... Normal [facility] CBC AND AUTO DIFFon 08-01-20 ABSOLUTE BASOPHIL 0.1 X10E9/L Normal 0.0-0.2 [facility] Comment on above: Performed By: #### C BCA #### [facility] ([id number]) [address], [address] [place] [address] ABSOLUTE NEUTROPHIL 5.2 X10E9/L Normal 1.5-6.6 [facility] Comment on above: Performed By: #### C BCA #### [facility] ([id number]) [address], [address] [place] [address] Basophils/100 WBC (Bld) 0.9 % Normal [facility] Comment on above: Performed By: #### C BCA #### [facility] ([id number]) [address], [address] [place] [address] Eosinophils (Bld) [#/Vol] 0.1 10*3/uL Normal 0.0-0.4 [facility] Comment on above: Performed By: #### C BCA #### [facility] ([id number]) [address], [address] [place] [address] Eosinophils/100 WBC (Bld) 1.1 % Normal [facility] Comment on above: Performed By: #### C BCA #### [facility] ([id number]) [address], [address] [place] [address] Erythrocyte distribution width (RBC) [Ratio] 16.9 % High 11.5-15.0 [facility] Comment on above: Performed By: #### C BCA #### [facility] ([id number]) [address] [place] [address] Hematocrit (Bld) [Volume fraction] 28.5 % Low 35-47 [facility] Comment on above: Performed By: #### C BCA #### [facility] ([id number]) [address], [address] [place] [address] Hemoglobin (Bld) [Mass/Vol] 8.6 g/dL Low 11.7-15.5 [facility] Comment on above: Performed By: #### C BCA #### [facility] ([id number]) [address], [address] [place] [address] Lymphocytes (Bld) [#/Vol] 2.0 10*3/uL Normal 1.0-3.5 [facility] Comment on above: Performed By: #### C BCA #### [facility] ([id number]) [address], [address] [place] [address] Lymphocytes/100 WBC (Bld) 25.7 % Normal [facility] Comment on above: Performed By: #### C BCA #### [facility] ([id number]) [address], [address] [place] [address] MCH (RBC) [Entitic mass] 22.1 pg Low 27-34 [facility] Comment on above: Performed By: #### C BCA #### [facility] ([id number]) [address], [address] [place] [address] MCHC (RBC) [Mass/Vol] 30.3 g/dL Low 32-36 [facility] Comment on above: Performed By: #### C BCA #### [facility] ([id number]) [address], [address] [place] [address] MCV (RBC) [Entitic vol] 73 fL Low 80-100 [facility] Comment on above: Performed By: #### C BCA #### [facility] ([id number]) [address], [facility] [address] [place] [address] Monocytes (Bld) [#/Vol] 0.4 10*3/uL Normal 0-0.9 [facility] Comment on above: Performed By: #### C BCA #### [facility] ([id number]) [address] [address] [place] [address] Monocytes/100 WBC (Bld) 4.6 % Normal [facility] Comment on above: Performed By: #### C BCA #### [facility] ([id number]) [address] [address] [place] [address] Neutrophils/100 WBC (Bld) 67.7 % Normal [facility] Comment on above: Performed By: #### C BCA #### [facility] ([id number]) [address] [address] [place] [address] Platelet mean volume (Bld) [Entitic vol] 8.8 fL Normal 7-12 [facility] Comment on above: Performed By: #### C BCA #### [facility] ([id number]) [address] [address] [place] [address] Platelets (Bld) [#/Vol] 257 10*3/uL Normal 150-450 [facility] Comment on above: Performed By: #### C BCA #### [facility] ([id number]) [address] [address] [place] [address] RBC COUNT 3.91 X10E12/L Normal 3.80-5.20 [facility] Comment on above: Performed By: #### C BCA #### [facility] ([id number]) [address] [place] [address] WBC (Bld) [#/Vol] 7.7 10*3/uL Normal 4.0-11.0 [facility] Comment on above: Performed By: #### C BCA #### [facility] ([id number]) [address] [place] [address] Lab - AP Resultson Lab - AP Results [id number]#1.00[facility] Consent Form[facility] 07-26-2024 Consent Forms [id number]#1.00[facility] Provider Orderson 07-26-2024 Provider Orders [id number]#1.00[facility] Anesthesia Noteon 07-25-2024 Anesthesia Note Patient: DEBORAH PINTO Age: 49 years Sex: FEMALE : 1975 Associated Diagnoses: None Author: Chilo Abernathy MD Postoperative Information Post Operative Note Health Status Allergies: Allergic Reactions (All) No known allergies Problem list (past medical history): All Problems Anxiety / SNOMED CT 47147859 / Confirmed Arthritis / SNOMED CT 3830807 / Confirmed Asthma / SNOMED CT 812253827 / Confirmed Constipated / SNOMED CT 19283841 / Confirmed Depressed / SNOMED CT 32809060 / Confirmed Thyroid disease / SNOMED CT 67661245 / Confirmed GERD (gastroesophageal reflux disease) / SNOMED CT 197533948 / Confirmed HTN (hypertension) / SNOMED CT 7108247038 / Confirmed Hypothyroid / SNOMED CT 03229181 / Confirmed Insomnia / SNOMED CT 247695335 / Confirmed IBS (irritable bowel syndrome) / SNOMED CT 81617549 / Confirmed Microcytic anemia / SNOMED CT 833118745 / Confirmed Migraine / SNOMED CT 96180283 / Confirmed Rheumatoid arthritis / SNOMED CT 252003881 / Confirmed Physical Examination VS/Measurements Vital Signs (last 24 hrs) Last Charted Temp Temporal L 36.1 DegC (JUL 25 09:35) Heart Rate Monitored 77 bpm (JUL 25 10:06) Resp Rate 18 br/min (JUL 25:06) SBP H 132 mmHg (JUL 25 10:06) DBP H 83 mmHg (JUL 25 10:06) Weight 129.7 kg (JUL 25 06:36) Assessment Anesthetic outcome No anesthetic complications noted. Plan Transfer/ Discharge: To home, Patient can be discharged from PACU when criteria met. Condition good. [Electronically Signed on: 07/25/2024 13:53 EST] Chilo Abernathy MD [Verified on: 07/25/2024 13:53 EST] Chilo Abernathy MD [facility] Anesthesia Note Patient: DEBORAH PINTO Age: 49 years Sex: FEMALE : 1975 Associated Diagnoses: None Author: Chilo Abernathy MD Preoperative Information Anesthesia history: Patient history: No difficult intubation, No malignant hyperthermia. Family history: Malignant hyperthermia, mother's sister and possibly pts sister with ?ho MH. Review of Systems Constitutional: Negative. Respiratory: Negative, No shortness of breath. Cardiovascular: Negative, No chest pain. Gastrointestinal: No heartburn. Health Status Allergies: Allergic Reactions (All) No known allergies Current medications: Home Medications (7) Active busPIRone 10 mg oral tablet See Instructions citalopram 20 mg oral tablet 20 mg = 1 tab(s), Oral, Daily dicyclomine 20 mg oral tablet 1 tab(s), Oral, QID levothyroxine 300 mcg, Oral, Daily MiraLax oral powder for reconstitution 17 gm, Oral, Daily omeprazole 40 mg oral delayed release capsule 40 mg = 1 cap(s), Oral, Daily Remeron 30 mg oral tablet 30 mg = 1 tab(s), Oral, Once a day (at bedtime) Problem list (past medical history): All Problems Anxiety / SNOMED CT 17623182 / Confirmed Arthritis / SNOMED CT 0112623 / Confirmed Asthma / SNOMED CT 336463100 / Confirmed Constipated / SNOMED CT 99502485 / Confirmed Depressed / SNOMED CT 75317880 / Confirmed Thyroid disease / SNOMED CT 70165731 / Confirmed GERD (gastroesophageal reflux disease) / SNOMED CT 201030225 / Confirmed HTN (hypertension) / SNOMED CT 9586415086 / Confirmed Hypothyroid / SNOMED CT 70675276 / Confirmed Insomnia / SNOMED CT 850659484 / Confirmed IBS (irritable bowel syndrome) / SNOMED CT 77593992 / Confirmed Microcytic anemia / SNOMED CT 542933350 / Confirmed Migraine / SNOMED CT 67223044 / Confirmed Rheumatoid arthritis / SNOMED CT 147107710 / Confirmed Histories Family History: Thyroid Sister Anxiety Mother Diabetes mellitus Mother Hypertension Father Mother Arthritis Mother CHF - Congestive heart failure Grandparent Migraine Sister Cancer Grandparent Crohn disease Grandparent Parkinsons disease Grandparent Procedure history: Thyroid (374150616). Knee (173540333). Foot (84069598). Tonsil (354358553). Appendectomy (516545079). Back (293857530). Social History Electronic Cigarette/Vaping Assessment Electronic Cigarette Use: Never. Tobacco Assessment Never tobacco user Tobacco Use:. Home/Environment Assessment Lives with Children. Other Assessment Dr Kat Watson - Podiatry Dr Toney Montoya - PCP . Social & Psychosocial Habits Home/Environment 08/23/2023 Lives with: Children Other 08/23/2023 Category: Dr Toney Montoya - PCP 08/23/2023 Category: Dr Watson - Podiatry 08/23/2023 Category: Dr Torie Hernadez 08/23/2023 Category: Dr Orlando Davila [facility] 08/23/2023 Category: Dr Kat Nagel Tobacco 08/23/2023 Smoking tobacco use: Never tobacco user Electronic Cigarette/Vaping 08/23/2023 Electronic Cigarette Use: Never . Physical Examination VS/Measurements Measurements from flowsheet : Measurements 07/25/2024 6:36 EST Height 186 cm Weight 129.7 kg Weight Dosing 129.700 kg Body Mass Index 37.49 kg/m2 , Vital Signs (last 24 hrs) Last Charted Temp Temporal 36.3 DegC (JUL 25:) Heart Rate Monitored 87 bpm (JUL 25:) Resp Rate 18 br/min (JUL 25:) SBP H 138 mmHg (JUL 25:) DBP H 88 mmHg (JUL 25:) Weight 129.7 kg (JUL 25) Review / Management Laboratory Results Plan [place] [employer]hesiologists#(ASA) physical status classification: Class III. Anesthetic Preoperative Plan Anesthesia: Monitored anesthesia care, non-triggering, vaporizors removed and machine flushed per protocol . Anesthetic plan, risks, benefits, and alternatives discussed with the patient and/or family. Patient verbalized understanding. [Electronically Signed on: 07/25/2024 09:17 EST] Chilo Abernathy MD [Verified on: 07/25/2024 09:17 EST] Chilo Abernathy MD [facility] Inpatient Patient Summaryon 07-25-2024 Inpatient [place] [address] Patient Discharge Instructions Name: LAURO PINTO : 1975 Patient Address: [address] [place] [address] Primary Care Provider: Name: TONEY MONTOYA DO After you are discharged if you find you have any questions, please, call [phone] ext [phone] to speak to a nurse. Discharge Diagnosis: 1:Microcytic anemia Prescription Information: If you have been given a prescription for narcotics, seek immediate medical attention if you have any difficulty breathing or any sudden status changes such as confusion and sleepiness. If you or anyone you know is experiencing suicidal thoughts, mental health, alcohol and/or drug addiction problems; contact the Mental Health & Recovery Board [facility] 29/03 Crisis Hotline -Text 4HMUH hb 960293. If you received any narcotics, sedation, or any other medication that causes drowsiness for the next 24 hours, unless otherwise directed: ? Do not drive a car. ? Do not operate machinery such as power tools, lawn mowers, drills, sewing machines, or stoves ? Avoid alcoholic beverages and drugs for allergies, nerves, or sleep ? Do not make important personal or business decisions or sign any legal documents [facility] would like to thank you for allowing us to assist you with your healthcare needs. The following includes patient education materials and information regarding your injury/illness. LAURO PINTO has been given the following list of follow-up instructions, prescriptions, and patient education materials: Follow-up Instructions With: Address: When: Korey Ford [address] [place] [address], [place] [address] Business (1) , only if needed With: Address: When: TONEY MONTOYA Medications During the course of your visit, your medication list was updated with the most current information. The details of those changes are reflected below: Medications to Continue That Have Not Changed Other Medications busPIRone (busPIRone 10 mg oral tablet) 1 tab(s) Oral BID prn. Refills: 2. citalopram (citalopram 20 mg oral tablet) 1 tab(s) Oral (given by mouth) every day. Refills: 2. dicyclomine (dicyclomine 20 mg oral tablet) 1 tab(s) Oral (given by mouth) 4 times a day. Refills: 2. levothyroxine 300 Microgram Oral (given by mouth) every day. mirtazapine (Remeron 30 mg oral tablet) 1 tab(s) Oral (given by mouth) once a day (at bedtime). Refills: 2. omeprazole (omeprazole 40 mg oral delayed release capsule) 1 cap(s) Oral (given by mouth) every day. Refills: 5. polyethylene glycol 3350 (MiraLax oral powder for reconstitution) 17 gram Oral (given by mouth) every day. dissolve in water before taking. Refills: 1. It is important to always keep an active list of medications available so that you can share with other providers and manage your medications appropriately. As an additional courtesy, we are also providing you with your final active medications list that you can keep with you. busPIRone (busPIRone 10 mg oral tablet) 1 tab(s) Oral BID prn. Refills: 2. citalopram (citalopram 20 mg oral tablet) 1 tab(s) Oral (given by mouth) every day. Refills: 2. dicyclomine (dicyclomine 20 mg oral tablet) 1 tab(s) Oral (given by mouth) 4 times a day. Refills: 2. levothyroxine 300 Microgram Oral (given by mouth) every day. mirtazapine (Remeron 30 mg oral tablet) 1 tab(s) Oral (given by mouth) once a day (at bedtime). Refills: 2. omeprazole (omeprazole 40 mg oral delayed release capsule) 1 cap(s) Oral (given by mouth) every day. Refills: 5. polyethylene glycol 3350 (MiraLax oral powder for reconstitution) 17 gram Oral (given by mouth) every day. dissolve in water before taking. Refills: 1. Take only the medications listed above. Contact your doctor prior to taking any medications not on this list. Diet & Activity Patient Activity Level: Patient Diet: Regular Patient Activity Restrictions: Comment: Patient education materials, if any, will display below Upper and lower endoscopy, Care After The following information offers guidance on how to care for yourself after your procedure. Your health care provider may also give you more specific instructions. If you have problems or questions, contact your health care provider. Findings: Esophageal mucosa appeared normal. The stomach was unremarkable throughout its length. The first portion of the small intestine appeared normal. The colonoscope was advanced the entire length of the colon. The prep was pretty good. There was a small polyp in the descending colon. It was removed and will be sent to pathology. There was a small polyp in the distal sigmoid colon. It was removed and will be sent to pathology. There were some hemorrhoids. Otherwise, the colon and rectum appeared unremarkable. What can I expect after the procedure? After the procedure, (more content not included)... [facility] 07-25-2024 L ------ Specimen: [id number] Received: 07/25/24 Status: WALDO Madsen Num: [id number] Spec Type: Surgical Subm Dr: Korey Ford MD Tissues: A Colon Biopsy (DESCENDING COLON POLYP) B Colon Biopsy (SIGMOID COLON POLYP) Procedures: JADA/Alexx, Gross/[place] L4/2 Age/ Patient Sex Location Account Attending Physician Lauro Pinto 49/F [facility] [id number] Korey Ford MD SPEC NUM: [id number] RECD: 07/25/24 STATUS: WALDO MADSEN NUM: [id number] MIGUELITO: 07/25/[address]: Korey Ford MD ENTERED: 07/25/24 [facility] DR: Lucinda,Leighton SPEC TYPE: Surgical DEPT: MAG KULKARNI ENTERED BY: [id number] RECV BY: [id number] ORDERED: HE/4, Gross/Micro L4/2 ORDERED: HE/4, Gross/Micro L4/2 Pathological Diagnosis A. Polyp, descending colon: Tubular Adenoma. - Negative For High Grade Dysplasia And Malignancy. B. Polyp, sigmoid colon: Hyperplastic polyp. Clinical Information Surgery-Endo gastroduodenoscopy and colonoscopy-anemia and family history colon cancer Gross Description Part A is received in formalin labeled with the patients name, date of , and descending colon polyp is a duarte-perez, focally erythematous, delicate, 0.7 cm in length by 0.5 cm in diameter, pedunculated polypoid structure. The specimen is inked black at the apparent point of attachment, longitudinally bisected, and entirely submitted in a single cassette. (1, ns, [id number] A) J Part B is received in formalin labeled with the patients name, date of , and sigmoid colon polyp is a duarte-perez, focally erythematous, friable, 0.4 cm polypoid fragment. The specimen is inked black at the apparent point of attachment, bisected, and entirely submitted in a single cassette. (1, ns, [id number] B) JG Specimen: [id number] Received: 07/25/24 Status: WALDO Madsen Num: [id number] Spec Type: Surgical Subm Dr: Korey Ford MD Tissues: A Colon Biopsy (DESCENDING COLON POLYP) B Colon Biopsy (SIGMOID COLON POLYP) Procedures: HE/4, Gross/Micro L4/2 Patient: Lauro Pinto [id number] (Continued) Specimen: [id number] Received: 07/25/24 (Continued) Signed (signature on file) Brody Jordan MD 07/26/241444 Specimen: [id number] Received: 07/25/24 Status: WALDO Madsen Num: [id number] Spec Type: Surgical Subm Dr: Korey Ford MD Tissues: A Colon Biopsy (DESCENDING COLON POLYP) B Colon Biopsy (SIGMOID COLON POLYP) Procedures: JADA/Alexx, Herson/[place] L4/2 Patient: Lauro Pinto [id number] (Continued) Specimen: [id number] Received: 07/25/24 (Continued) CPT Codes 12322s5 Specimen: [id number] Received: 07/25/24 Status: WALDO Madsen Num: [id number] Spec Type: Surgical Subm Dr: Korey Ford MD Tissues: A Colon Biopsy (DESCENDING COLON POLYP) B Colon Biopsy (SIGMOID COLON POLYP) Procedures: JADA/Herson Coffey/Va L4/2 Patient: Lauro Pinto [id number] (Continued) Signed (signature on file) Brody Jordan MD 07/26/[address] [facility] Intraoperative Recordon 07-25-2024 MAGR Intraoperative Record MAGR Intra-Op Record Summary Primary Physician: Korey Ford MD Finalized Date/Time: 07/25/24 12:59:58 Pt. Name: LAURO PINTO/Sex: 1975 FEMALE Med Rec #: [id number] Physician: Korey Ford MD Financial #: [id number] Pt. Type: D Room/Bed: / Admit/Disch: 07/25/24 06:22:59 - 07/25/24 10:14:00 Institution: Case Times MAGR Entry 1 Patient In Room Time 07/25/24 09:01:00 Out Room Time 07/25/24 09:31:00 Anesthesia Start Time 07/25/24 09:02:00 Stop Time 07/25/24 09:30:00 Surgery Start Time 07/25/24 09:05:00 Stop Time 07/25/24 09:29:00 Last Modified By: Isabel Martinez RN 07/25/24 09:37:11 General Comments: EGD START 904, END 909 COLONOSCOPY START 913, CECUM 0918, STOP Case Attendance MAGR Entry 1 Entry 2 Entry 3 Case Attendee Korey Ford MD, John M MD Baumer, Erica RN Role Performed Surgeon - Primary Anesthesiologist of Account Retention Representative Record Time In 07/25/24 09:01:00 07/25/24 09:01:00 07/25/24 09:01:00 Time Out 07/25/24 09:31:00 07/25/24 09:31:00 07/25/24 09:31:00 Procedure Esophagogastroduodenosco Esophagogastroduodenosco Esophagogastroduodenosco py and Colonosco py and Colonosco py and Colonosco Last Modified By: Isabel Martinez RN, Erica RN Baumer, Erica RN 07/25/24 09:37:34 07/25/24 09:37:34 07/25/24 09:37:34 Entry 4 Entry 5 Case Attendee Awilda CastilloA Lianna Box [employer] Role Performed Scrub Personnel Special Inspector Time In 07/25/24 09:01:00 07/25/24 09:01:00 Time Out 07/25/24 09:31:00 07/25/24 09:31:00 Procedure Esophagogastroduodenosco Esophagogastroduodenosco py and Colonosco py and Colonosco Last Modified By: Isabel Martinez RN, Erica RN 07/25/24 09:37:34 07/25/24 09:37:34 Surgical Procedures MAGR Pre-Care Text: A.20 Verifies operative procedure, surgical site, and laterality Im.150 Develops individualized plan of care Entry 1 Procedure Esophagogastroduodenosco Primary Procedure Yes py and Colonoscopy Primary Surgeon Korey Ford MD Surgeon Comment EGD AND COLONOSCOPY WITH SNARE POLYPECTOMIES Start 07/25/24 09:05:00 Stop 07/25/24 09:29:00 Anesthesia Type MAC Surgical Service General Wound Class Clean-Contaminated Technique Details Closure Technique N/A Entire procedure No was performed via laparoscope or robotic assistance Last Modified By: Isabel Martinez RN 07/25/24 09:30:35 Post-Care Text: O.730 The patient's care is consistent with the individualized perioperative plan of care General Case Data MAGR Pre-Care Text: A.350.1 Classifies surgical wound Entry 1 Case Information OR MAGR OR 01 Case Level Level 3 Wound Class Clean-Contaminated Specialty General ASA Class 3 Diagnosis Preop Diagnosis ANEMIA AND FAMILY HX OF Postop Same As Preop No COLON CANCER Postop Diagnosis ANEMIA AND FAMILY HX OF COLON CANCER, DESCENDING COLON POLYP, SIGMOID COLON POLYP Blunt or No Is the procedure No penetrating injury considered occured prior to Emergent/Urgent? the start of the procedure: Last Modified By: Isabel Martinez RN 07/25/24 09:31:02 Post-Care Text: O.760 Patient receives consistent and comparable care regardless of the setting Time Out MAGR Entry 1 Procedure(s) Esophagogastroduodenosco py and Colonosco Time Out Checklist Verifications Team Introductions Yes Confirmed Identity, Yes Completed Procedure, Incision Site, and Consent(s) Presence of Yes Site Verification, Yes Necessary Site Marking, Site Procedural Marking Equipment, Devices, Alternative, and/or and Implants Site Marking Verified Exception in Accordance with Facility Policy Anesthesia Review Antibiotic Received n/a All Anesthesia Yes Within an Concerns Addressed Appropriate Time Interval Prior to Surgical Incision Surgeon Review Anticipated Blood Yes Expected Case Yes Loss Risk Addressed Duration Addressed Critical and Yes Non-Routine Steps to be Performed Addressed Nurse Review Equipment Yes Fire Risk Yes Checks/Concerns Assessment Addressed Completed and Interventions Performed Diagnostic and n/a Sterilization n/a Radiological Test Concerns Addressed Results Displayed are Appropriate and Labeled Other Concerns n/a Addressed Time Out Korey Ford MD, Time Out Time 07/25/24 09:03:00 Participants Chilo Abernathy MD, Isabel Martinez RN, Lianna Box [employer], Aw[facility] Castillo [facility] [employer] Last Modified By: Isabel Martinez RN 07/25/24 09:04:39 Patient Positioning MAGR Pre-Care Text: A.280 Identifies baseline musculoskeletal status Im.40 Positions the patient Im.80 Applies safety devices Entry 1 Procedure Esophagogastroduodenosco Body Position Lateral py and [place] Left Arm Position Resting at Side Right Arm Position Resting at Side Left Leg Position Extended Right Leg Position Extended Feet Uncrossed? Yes Press Points Checked Yes Positioning Device Pillow Outcome Met (O.80 (more content not included)... Normal [facility] MAGR Postoperative Recordon 07-25-2024 MAGR Postoperative Record MAGR Phase II Record Summary Primary Physician: Korey Ford MD Finalized Date/Time: 07/25/24 10:30:12 Pt. Name: LAURO PINTO/Sex: 1975 FEMALE Med Rec #: [id number] Physician: Korey Ford MD Financial #: [id number] Pt. Type: D Room/Bed: / Admit/Disch: 07/25/24 06:22:59 - Institution: Phase II Case Times MAGR Pre-Care Text: Patient is free from s/s of injury. Patient remains free from compromised physical state related to surgery or anesthesia. Patient comfort maintained. Patient/family verbalize understanding of discharge instructions. Entry 1 In PACU II 07/25/24 09:35:00 Discharge from PACU 07/25/24 10:14:00 II Last Modified By: Jumana Herbert RN 07/25/24 10:30:05 Post-Care Text: The patient remains free from s/s of injury. Patient's vital signs stable, circulation maintained, return to preop mental and physical status, opsite/dressing intact, minimal or absent nausea and vomiting, tolerates po intake. Patient verbalizes adequate pain control. Patient/family express understanding of discharge instructions. Finalized By: Jumana Herbert RN Document Signatures Signed By: Jumana Herbert RN 07/25/24 10:30 [facility] Preoperative Recordon 1 09-24-2023 [facility] Preoperative Record [facility] Pre-Op Record Summary Primary Physician: Korey Ford MD Finalized Date/Time: 07/25/24 09:05:27 Pt. Name: LAURO PINTO/Sex: 1975 FEMALE Med Rec #: [id number] Physician: Korey Ford MD Financial #: [id number] Pt. Type: D Room/Bed: / Admit/Disch: 07/25/24 06:22:59 - Institution: Pre-Op Case Times [facility] Pre-Care Text: Patient will be optimally prepared for surgery. Patient is free from s/s of injury. Provide information to patient/family related to plan of care. Verify patient allergies. Confirm identity and verify consent before the operative or invasive procedure. Entry 1 Patient Arrival Time 07/25/24 06:31:00 Preop Departure 07/25/24 09:00:00 Last Modified By: Isabel Martinez RN 07/25/24 09:05:25 Post-Care Text: Patient is prepared mentally and physically and is ready for surgery. The patient remains free from s/s of injury. Patient/family express understanding of plan of care and participate in decisions affecting his or her perioperrative plan of care. Allergies documented appropriately. Patient identifiers and consent correct. General Comments: Pt arrives to [facility]. Pt denies SOB,cp,cough and flu like symptoms. Pt also denies pacemaker,defibrillator and sleep apnea. Pt is not a diabetic Finalized By: Isabel Martinez RN Document Signatures Signed By: Isabel Martinez RN 07/25/24 09:05 Normal [facility] Patient Handouton 07-25-2024 Patient Handout Radiology Upper and lower endoscopy, Care After The following information offers guidance on how to care for yourself after your procedure. Your health care provider may also give you more specific instructions. If you have problems or questions, contact your health care provider. Findings: Esophageal mucosa appeared normal. The stomach was unremarkable throughout its length. The first portion of the small intestine appeared normal. The colonoscope was advanced the entire length of the colon. The prep was pretty good. There was a small polyp in the descending colon. It was removed and will be sent to pathology. There was a small polyp in the distal sigmoid colon. It was removed and will be sent to pathology. There were some hemorrhoids. Otherwise, the colon and rectum appeared unremarkable. What can I expect after the procedure? After the procedure, it is common to have: ? A small amount of blood in your stool for 24 hours after the procedure. ? Some gas. ? Mild cramping or bloating of your abdomen. Follow these instructions at home: Eating and drinking ? Drink enough fluid to keep your urine pale yellow. ? Follow instructions from your health care provider about eating or drinking restrictions. ? Resume your normal diet as told by your health care provider. Avoid heavy or fried foods that are hard to digest. Activity ? Rest as told by your health care provider. ? Avoid sitting for a long time without moving. Get up to take short walks every 1?2 hours. This is important to improve blood flow and breathing. Ask for help if you feel weak or unsteady. ? Return to your normal activities as told by your health care provider. Ask your health care provider what activities are safe for you. Managing cramping and bloating ? Try walking around when you have cramps or feel bloated. ? If directed, apply heat to your abdomen as told by your health care provider. Use the heat source that your health care provider recommends, such as a moist heat pack or a heating pad. ? Place a towel between your skin and the heat source. ? Leave the heat on for 20?30 minutes. ? Remove the heat if your skin turns bright red. This is especially important if you are unable to feel pain, heat, or cold. You have a greater risk of getting burned. General instructions ? If you were given a sedative during the procedure, it can affect you for several hours. Do not drive or operate machinery until your health care provider says that it is safe. ? For the first 24 hours after the procedure: ? Do not sign important documents. ? Do not drink alcohol. ? Do your regular daily activities at a slower pace than normal. ? Eat soft foods that are easy to digest. ? Take odak-mzk-yhptefq and prescription medicines only as told by your health care provider. ? Keep all follow-up visits. This is important. Contact a health care provider if: ? You have blood in your stool 2?3 days after the procedure. Get help right away if: ? You have more than a small spotting of blood in your stool. ? You have large blood clots in your stool. ? You have swelling of your abdomen. ? You have nausea or vomiting. ? You have a fever. ? You have increasing pain in your abdomen that is not relieved with medicine. These symptoms may be an emergency. Get help right away. Call 911. ? Do not wait to see if the symptoms will go away. ? Do not drive yourself to the hospital. Summary ? After the procedure, it is common to have a small amount of blood in your stool. You may also have mild cramping and bloating of your abdomen. ? If you were given a sedative during the procedure, it can affect you for several hours. Do not drive or operate machinery until your health care provider says that it is safe. ? Get help right away if you have a lot of blood in your stool, nausea or vomiting, a fever, or increased pain in your abdomen. - Dr. Ford's office will call you with the pathology results. This information is not intended to replace advice given to you by your health care provider. Make sure you discuss any questions you have with your health care provider. Document Revised: 10/05/2023 Document Reviewed: 04/15/2022 [employer] Patient Education ? 2023 [employer] Normal [facility] Test Urine 1 U Preg Negative [facility] Comment on above: Performed By: #### [id number] ####[facility] (DEFAULT)[address] [place] [address] U Preg Internal Control Pass [facility] Comment on above: Performed By: #### [id number] ####[facility] (DEFAULT)[address] [place] [address] Progress Note - Nurseon 07-07 Progress Note - Nurse Digital Forensics Examiner spoke with pt and pt stated that she has a family hx of malignant hyperthermia. Per pt her moms sister had an issue. Pt put web content writer on a 3 way call with pts mom. Per pts mom her sister had to be packed in ice and pts younger sister also had an issue. After speaking with pt and pts mom web content writer let Dr Abernathy know the above details. [Electronically Signed on: 07/24/2024 11:38 EST] Jumana Herbert RN [Verified on: 07/24/2024 11:38 EST] Jumana Herbert RN [facility] Outside Recordson 06-28-2024 Outside Records [id number]#1.00OTGTIF F [facility] Lab - Other Lab Resultson Lab - Other Lab Results [id number]#1.00OTGTIF [facility] CBC AND AUTO DIFFon 06-22-20 24 ABSOLUTE BASOPHIL 0.0 X10E9/L Normal 0.0-0.2 [facility] Comment on above: Performed By: #### C BCA, CMP, 60522-0, THYR #### [facility] ([id number]) [address], [address] [place] [address] ABSOLUTE NEUTROPHIL 5.6 X10E9/L Normal 1.5-6.6 [facility] Comment on above: Performed By: #### Rao ARREDONDO CMP, 15031-1, THYR #### [facility] ([id number]) [address], [address] [place] [address] Basophils/100 WBC (Bld) 0.5 % Normal [facility] Comment on above: Performed By: #### C BRENDA ARREDONDO, 68540-5, THYR #### [facility] ([id number]) [address], [address] [place] [address] Eosinophils (Bld) [#/Vol] 0.1 10*3/uL Normal 0.0-0.4 [facility] Comment on above: Performed By: #### Rao ARREDONDO CMP, 92419-7, THYR #### [facility] ([id number]) [address], [address] [place] [address] Eosinophils/100 WBC (Bld) 0.9 % Normal [facility] Comment on above: Performed By: #### Rao ARREDONDO CMP, 07694-1, THYR #### [facility] ([id number]) [address], [address] [place] [address] Erythrocyte distribution width (RBC) [Ratio] 16.8 % High 11.5-15.0 [facility] Comment on above: Performed By: #### Rao ARREDONDO CMP, 19289-7, THYR #### [facility] ([id number]) [address], [address] [place] [address] Hematocrit (Bld) [Volume fraction] 28.9 % Low 35-47 [facility] Comment on above: Performed By: #### C ARNULFO CMP, 66584-3, THYR #### [facility] ([id number]) [address], [address] [place] [address] Hemoglobin (Bld) [Mass/Vol] 8.8 g/dL Low 11.7-15.5 [facility] Comment on above: Performed By: #### C ARNULFO CMP, 77323-4, THYR #### [facility] ([id number]) [address], [address] [place] [address] Lymphocytes (Bld) [#/Vol] 1.7 10*3/uL Normal 1.0-3.5 [facility] Comment on above: Performed By: #### C ARNULFO CMP, 69969-0, THYR #### [facility] ([id number]) [address], [facility] [address] [place] [address] Lymphocytes/100 WBC (Bld) 22.0 % Normal [facility] Comment on above: Performed By: #### Rao ARREDONDO CMP, 26068-3, THYR #### [facility] ([id number]) [address], [address] [place] [address] MCH (RBC) [Entitic mass] 22.2 pg Low 27-34 [facility] Comment on above: Performed By: #### Rao ARREDONDO CMP, 91363-8, THYR #### [facility] ([id number]) [address], [address] [place] [address] MCHC (RBC) [Mass/Vol] 30.4 g/dL Low 32-36 [facility] Comment on above: Performed By: #### Rao BCA, CMP, 98490-9, THYR #### [facility] ([id number]) [address], [address] [place] [address] MCV (RBC) [Entitic vol] 73 fL Low 80-100 [facility] Comment on above: Performed By: #### Rao BCA CMP, 23958-6, THYR #### [facility] ([id number]) [address], [address] [place] [address] Monocytes (Bld) [#/Vol] 0.4 10*3/uL Normal 0-0.9 [facility] Comment on above: Performed By: #### C ARNULFO CMP, 07526-8, THYR #### [facility] ([id number]) [address], [address] [place] [address] Monocytes/100 WBC (Bld) 4.9 % Normal [facility] Comment on above: Performed By: #### C ARNULFO, CMP, 04661-2, THYR #### [facility] ([id number]) [address], [address] [place] [address] Neutrophils/100 WBC (Bld) 71.7 % Normal [facility] Comment on above: Performed By: #### C ARNULFO, CMP, 49215-5, THYR #### [facility] ([id number]) [address], [address] [place] [address] Platelet mean volume (Bld) [Entitic vol] 8.9 fL Normal 7-12 [facility] Comment on above: Performed By: #### Rao ARREDONDO, CMP, 34851-7, THYR #### [facility] ([id number]) [address], [address] [place] [address] Platelets (Bld) [#/Vol] 316 10*3/uL Normal 150-450 [facility] Comment on above: Performed By: #### C ARNULFO, CMP, 50161-6, THYR #### [facility] ([id number]) [address], [address] [place] [address] RBC COUNT 3.96 X10E12/L Normal 3.80-5.20 [facility] Comment on above: Performed By: #### C BCA, CMP, 39457-8, THYR #### [facility] ([id number]) [address], [address] [place] [address] WBC (Bld) [#/Vol] 7.8 10*3/uL Normal 4.0-11.0 [facility] Comment on above: Performed By: #### C BCA, CMP, 60135-4, THYR #### [facility] ([id number]) [address], [address] [place] [address] COMPREHENSIVE METABOLIC PANE Claudio 06-22-2024 Albumin [Mass/Vol] 3.7 g/dL Normal 3.2-5.3 [facility] Comment on above: Performed By: #### C BCA, CMP, 72111-9, THYR #### [facility] ([id number]) [address], [address] [place] [address] ALP [Catalytic activity/Vol] 50 U/L Normal 39-130 [facility] Comment on above: Performed By: #### C BCA, CMP, 92315-2, THYR #### [facility] ([id number]) [address], [address] [place] [address] ALT [Catalytic activity/Vol] 4 U/L Normal 0-31 [facility] Comment on above: Performed By: #### C BCA, CMP, 01132-8, THYR #### [facility] ([id number]) [address], [address] [place] [address] Anion gap [Moles/Vol] 9 mmol/L Normal 5-15 [facility] Comment on above: Performed By: #### C BCA, CMP, 76263-5, THYR #### [facility] ([id number]) [address], [address] [place] [address] AST [Catalytic activity/Vol] 14 U/L Normal 0-41 [facility] Comment on above: Performed By: #### C BCA, CMP, 51241-0, THYR #### [facility] ([id number]) [address], [address] [place] [address] Bilirubin [Mass/Vol] 0.5 mg/dL Normal 0.3-1.2 [facility] Comment on above: Performed By: #### C ARNULFO CMP, 31220-2, THYR #### [facility] ([id number]) [address], [address] [place] [address] Calcium [Mass/Vol] 9.1 mg/dL Normal 8.5-10.5 [facility] Comment on above: Performed By: #### C BCA, CMP, 66999-7, THYR #### [facility] ([id number]) [address], [address] [place] [address] Chloride [Moles/Vol] 102 mmol/L Normal 98-109 [facility] Comment on above: Performed By: #### C ARNULFO CMP, 14591-1, THYR #### [facility] ([id number]) [address], [address] [place] [address] CO2 [Moles/Vol] 26 mmol/L Normal 22-32 [facility] Comment on above: Performed By: #### C BCA, CMP, 63143-8, THYR #### [facility] ([id number]) [address], [address] [place] [address] Creatinine [Mass/Vol] 0.81 mg/dL Normal 0.40-1.00 [facility] Comment on above: Result Comment: METH OD TRACEABLE TO IDMS STANDARD Performed By: #### C BCA, CMP, 21165-8, THYR #### [facility] ([id number]) [address], [address] [place] [address] GFR/1.73 sq M.predicted among non-blacks MDRD (S/P/Bld) [Vol rate/Area] 89 mL/min/{1.73_m2} Normal >59 [facility] Comment on above: Result Comment: Reported eGFR is based on the CKD-EPI 2020 equation that does not use a race coefficient. Performed By: #### C BCA, CMP, 95542-8, THYR #### [facility] ([id number]) [address], [address] [place] [address] Glucose [Mass/Vol] 84 mg/dL Normal 65-99 [facility] Comment on above: Performed By: #### C BCA, CMP, 39338-4, THYR #### [facility] ([id number]) [address], [address] [place] [address] Potassium [Moles/Vol] 4.3 mmol/L Normal 3.5-5.0 [facility] Comment on above: Performed By: #### C BCA, CMP, 35293-7, THYR #### [facility] ([id number]) [address], [address] [place] [address] Protein [Mass/Vol] 6.8 g/dL Normal 6.0-8.0 [facility] Comment on above: Performed By: #### C BCA, CMP, 95829-7, THYR #### [facility] ([id number]) [address], [address] [place] [address] Sodium [Moles/Vol] 137 mmol/L Normal 134-146 [facility] Comment on above: Performed By: #### C BCA, CMP, 17792-4, THYR #### [facility] ([id number]) [address], [address] [place] [address] Urea nitrogen [Mass/Vol] 11 mg/dL Normal 5-23 [facility] Comment on above: Performed By: #### C BCA, CMP, 42895-1, THYR #### [facility] ([id number]) [address], [address] [place] [address] Lipid 1996 panelon 4 Cholesterol [Mass/Vol] 162 mg/dL Normal 150-200 [facility] Comment on above: Performed By: #### C BCA, CMP, 76124-1, THYR #### [facility] ([id number]) [address], [address] [place] [address] Cholesterol in HDL [Mass/Vol] 75 mg/dL Normal >39 [facility] Comment on above: Result Comment: HDL <40 mg/dL - High Risk HDL > or = 40mg/dL- Desirable HDL >60 mg/dL - Negative Risk Performed By: #### Rao ARREDONDO, BRENDA, 17288-8, THYR #### [facility] ([id number]) [address], [address] [place] [address] Cholesterol in LDL [Mass/Vol] 71 mg/dL Normal <130 [facility] Comment on above: Result Comment: LDL <100 mg/dL - Desirable LDL >160 mg/dL - High Risk Performed By: #### Rao ARREDONDO, BRENDA, 17782-7, THYR #### [facility] ([id number]) [address], [address] [place] [address] Cholesterol in VLDL [Mass/Vol] 16 mg/dL Normal 0-30 [facility] Comment on above: Performed By: #### Rao ARREDONDO, CMP, 63730-0, THYR #### [facility] ([id number]) [address], [address] [place] [address] CHOLESTEROL:HDL 2.2 Normal 1.0-5.0 [facility] Comment on above: Performed By: #### Rao ARREDONDO, CMP, 93435-2, THYR #### [facility] ([id number]) [address], [address] [place] [address] Triglyceride [Mass/Vol] 81 mg/dL Normal 27-150 [facility] Comment on above: Performed By: #### C ARNULFO CMP, 33106-2, THYR #### [facility] ([id number]) [address], [address] [place] [address] THYROID PROFILEon 06-22-2024 Free T4 [Mass/Vol] 1.62 ng/dL High 0.61-1.60 [facility] Comment on above: Performed By: #### C ARNULFO, CMP, 99543-5, THYR #### [facility] ([id number]) [address], [address] [place] [address] TSH 0.02 uIU/mL Low 0.49-4.67 [facility] Comment on above: Performed By: #### C ARNULFO, BRENDA, 66691-5, THYR #### [facility] ([id number]) [address], [address] [place] [address] FREE T3on 03-06-2024 Free T3 [Mass/Vol] 3.30 pg/mL Normal 2.50-3.90 [facility] Comment on above: Performed By: #### T HYR, 3051-0, 8098-6 #### [facility] ([id number]) [address], [address] [place] [address] #### THYROG #### [facility] ([id number]) [address] [place] [address] THYROGLOBULIN ABon 4 Thyroglobulin Ab Qn [IU]/mL Normal <4.0 [facility] Comment on above: Performed By: #### T HYR, 3051-0, 8098-6 #### [facility] ([id number]) [address], [address] [place] [address] #### THYROG #### [facility] ([id number]) [address] [place] [address] THYROGLOBULIN, S/Kin 024 THYROGLOBULIN <0.5 Low 1.3-31.8 [facility] Comment on above: Result Comment: NOTE Results obtained with different test methods or kits cannot be used interchangeably. Thyroglobulin results, regardless of concentration, should not be interpreted as absolute evidence for the presence or absence of papillary or follicular thyroid cancer. Thyroglobulin testing is not recommended for use as a screening procedure to detect the presence of thyroid cancer in the general population. INTERPRETIVE INFORMATION: Thyroglobulin by LC-MS/MS, Serum/Plasma Lower limit of detection for Thyroglobulin by LC-MS/MS is 0.5 ng/mL. This test was developed and its performance characteristics determined by [facility]. It has not been cleared or approved by the [place] Food and Drug Administration. This test was performed in a CLIA certified laboratory and is intended for clinical purposes. Performed By: [facility] [address] [place] [address] [employer] Patternmaker Apprentice: Dawit Garcia MD, PhD CLIA Number: [id number] Performed By: #### T HYR, 3051-0, 8098-6 #### [facility] ([id number]) [address] [place] [address], [address] [address] #### THYROG #### [facility] ([id number]) [address] [place] [address] THYROID PROFILEon 03-06-2024 Free T4 [Mass/Vol] 1.17 ng/dL Normal 0.61-1.60 [facility] Comment on above: Performed By: #### T HYR, 3051-0, 8098-6 #### [facility] ([id number]) [address] [place] [address], [facility] [address] [place] [address] #### THYROG #### [facility] ([id number]) [address] [place] [address] TSH 0.39 uIU/mL Low 0.49-4.67 [facility] Comment on above: Performed By: #### T HYR, 3051-0, 8098-6 #### [facility] ([id number]) [address] [place] [address] #### THYROG #### [facility] ([id number]) [address] [facility] [place] [address] Established Visit (Otolaryng ology)on 03-23-2022 Established Visit (Otolaryngology) No report was sent Normal [facility] Established Visit (Otolaryng ology)on 12-19-2021 Established Visit (Otolaryngology) Diagnoses/Problems Thyroid cancer (193) (C73) Provider Impressions 46 year old female 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 She is now s/p completion thyroidectomy -advised her to establish care with local pinion polisher to discuss BOB. They may just decide to follow lab work -follow up with me in 3 months, earlier with any issues Chief Complaint f/u thyroid cancer History of Present IllnessPatient presents today for follow up after completion thyroidectomy. Pathology after initial surgery showed multifocal carcinoma. No cancer identified on completion. She has been doing well No issues with voice or swallowing Review of Systems ENT and Constitutional systems have been reviewed and are negative for complaint except what is stated in the HPI and/or Past Medical History. Active Problems Acute postoperative pain (338.18) (G89.18) Thyroid cancer (193) (C73) Thyroid nodule (241.0) (E04.1) Allergies No Known Drug Allergies Recorded By: lAayna Vazquez; 04/07/2021 2:26:54 PM Current Meds Medication NameInstruction Docusate Sodium 100 MG Oral CapsuleTAKE 1 CAPSULE BY MOUTH TWICE DAILY Euthyrox 200 MCG Oral TabletTAKE 1 TABLET BY MOUTH ONCE DAILY methylPREDNISolone 4 MG Oral Tablet Therapy PackTAKE BY MOUTH DIRECTED ON INSIDE OF PACKAGE Omeprazole TBEC Oyster Shell Calcium 500 MG Oral TabletTAKE 1 TABLET BY MOUTH THREE TIMES DAILY - TAKE FOR ANY NUMBNESS OR TINGLING IN FINGERTIPS Sertraline HCl CONC traMADol HCl - 50 MG Oral TabletTAKE 1 TABLET Every 6 hours As Needed for pain Vraylar 1.5 MG Oral CapsuleTAKE 1 CAPSULE BY MOUTH ONCE DAILY Vitals Vital Signs Recorded: 19Dec2021 04:25PM Ymuuucbetqo28.8 F Height6 ft 1 in Ggqdek738 lb 9.6 oz BMI Bhfocujkfn91.33 kg/m2 BSA Calculated2.71 Tobacco Useb) No Fall Screeninga) No falls within the last year Physical Exam Well appearing individual in no acute distress. No stertor and no Stridor. Good voice. No LAD. Skin is soft and supple. Oral cavity and oropharynx are without lesions. No thyromegaly. Anterior rhinoscopy reveals normal nasal mucosa bilaterally. EAC normal AU with RITIKA. Cranial Nerves grossly intact. Neck incision healing well Results/Data Surgical [id number] 09:52AMEdy Dominguez [Dec 18, 2021 4:12PM Edy Dominguez] f/u 12/19 Test NameResultFlagReference Case Surgical Pathology(Report) Name LAURO PINTO Pathologist: LILLI AMAYA ASA, MD, PhD Date of Procedure: 12/04/2021 Date Received: 12/04/2021 Date Reported 12/10/2021 Submitting Physician: EDY DOMINGUEZ MD Location: [facility] External # FINAL DIAGNOSIS A. RIGHT HEMITHYROID STITCH@ ISTHMUS: MILD FOLLICULAR NODULAR DISEASE: THYROID, RIGHT COMPLETION THYROIDECTOMY SPECIMEN Electronically Signed Out By LILLI AMAYA ASA, MD, PhD/SLA By the signature on this report, the individual or group listed as making the Final Interpretation/Diagnosis certifies that they have reviewed this case. Clinical History: Completion Right Thyroidectomy Specimens Submitted As: A: RIGHT HEMITHYROID STITCH@ ISTHMUS Gross Description: Received in formalin, labeled with the patient's name and hospital number and right hemithyroid, stitch at isthmus , is an oriented thyroid lobectomy that weighs 11.8 gm and measures 4.8 x 2.6 x 1.5 cm. The surface has fibrous adhesions and is inked as follows: anterior blue, posterior black. The isthmus resection margin, as indicated by a stitch, is inked green. There are no surface nodules. On section, there are no nodules identified. The specimen is entirely submitted in 16 cassettes. Gross specimen was reviewed in person with Jennifer on 12/06/2021 at 6:00 PM. A 1-16 Lobe in toto superior to inferior AMD amd/12/06/2021 [facility] Department of Pathology [address] [place] [address] Procedure 'Scores and Scales' Signatures Electronically signed by : Edy Dominguez MD; Dec 19 2021 7:05PM EST (Author) Normal Touchworks Tobacco Screening.on Fall risk assessment a) No falls within the last year [facility] Work Phone: Tobacco use status [facility] b) No [facility] Work Phone: Daily Progress Note-ENTon Daily Progress Note-ENT Service: ENT Subjective Data: LAURO PINTO is a 46 year old Female who is Hospital Day # 2 and POD #1 for 1. Completion right thyroidectomy. Additional Information: no issues overnight eating and drinking without issue O: AFVSS postop PTH normal steris in place, neck flat A/P s/p completion thyroidectomy -d/c today -scripts provided Objective Data: Objective Information: T PRBPMAPSpO2 [id number]% Date/Time12/05 4:004 4: 4: 4: 17:004 4:00 Range(36.2C - 37.2C ) (79 - 90 ) (16 - 18 ) (117 - 142 )/ (59 - 67 ) (90 - 90 ) (93% - 94% ) Highest temp of 37.2 C was recorded at 12/04 20:00 Pain reported at 12/05 5:10: 3 = Mild ---- Intake and Output ----- Mn/Dy/Year TimeIntakeOutputNet Dec 04, 2021 10:00 pm000 Dec 04, 2021 2:00 [id number] The Intake and Output Totals for the last 24 hours are: IntakeOutputNet [id number] Recent Lab Results: Results: RFP: 12/04/2021 11:09 NA+ Cl- BUN / 136 106 15 / ------ Glucose - 116 H K+ HCO3- Creat \ 4.1 21 0.89 \ Calcium : 8.5 LAnion Gap : 13 Albumin : 3.6 Phos : 2.5 Assessment and Plan: Comorbidities: Comorbidityobesity Obesitymorbid obesity (BMI 40+) Code Status: Code StatusFull Code Electronic Signatures: Edy Dominguez) (Signed 05-Dec-2021 07:10) Authored: Service, Subjective Data, Objective Data, Assessment and Plan, Note Completion Last Updated: 05-Dec-2021 07:10 by Edy Dominguez) Normal [facility] MAGNESIUMon 12-05-2021 Magnesium [Mass/Vol] 1.80 mg/dL Normal 1.60 - 2.40 [facility] Comment on above: Performed By: #### M G #### [address] [address] Magnesium, Serumon 2 Magnesium [Mass/Vol] 1.80 mg/dL See Below [facility] Work Phone: Comment on above: Reference Range: 1.6 0 - 2.40 PARATHYROID HORMONE,INTACTon 12-05-2021 PARATHYROID HORMONE,INTACT 77.2 pg/mL Normal 12.0 - 88.0 [facility] Comment on above: Performed By: #### P TH #### [address] [address] Parathormone Intact, Serumon 12-05-2021 Parathyrin.intact [Mass/Vol] 77.2 pg/mL See Below [facility] Work Phone: Comment on above: Reference Range: 12. 0 - 88.0 RENAL FUNCTION PANELon 12-05 Albumin [Mass/Vol] 3.4 g/dL Normal 3.4 - 5.0 [facility] Comment on above: Performed By: #### R ENAL #### [address] [address] Anion gap [Moles/Vol] 11 mmol/L Normal 10 - 20 [facility] Comment on above: Performed By: #### R ENAL #### [address] [address] Calcium [Mass/Vol] 8.5 mg/dL Low 8.6 - 10.3 [facility] Comment on above: Performed By: #### R ENAL #### [address] [address] Chloride [Moles/Vol] 105 mmol/L Normal 98 - 107 [facility] Comment on above: Performed By: #### R ENAL #### [address] [address] Creatinine [Mass/Vol] 0.77 mg/dL Normal 0.50 - 1.05 [facility] Comment on above: Performed By: #### R ENAL #### [address] [address] eGFR FEMALE >90 Normal >90 [facility] Comment on above: Result Comment: CALC ULATIONS OF ESTIMATED GFR ARE PERFORMED USING THE 2020 CKD-EPI STUDY REFIT EQUATION WITHOUT THE RACE VARIABLE FOR THE IDMS-TRACEABLE CREATININE METHODS. https://jasn.asnjournals.org/content//ASN.735461772 8 Performed By: #### R ENAL #### [address] [address] Glucose [Mass/Vol] 123 mg/dL High 74 - 99 [facility] Comment on above: Performed By: #### R ENAL #### [address] [address] HCO3 (Bld) [Moles/Vol] 25 mmol/L Normal 21 - 32 [facility] Comment on above: Performed By: #### R ENAL #### [address] [address] Phosphate [Mass/Vol] 3.6 mg/dL Normal 2.5 - 4.9 [facility] Comment on above: Result Comment: The performance characteristics of phosphorus testing in heparinized plasma have been validated by the individual laboratory site where testing is performed. Testing on heparinized plasma is not approved by the FDA; however, such approval is not necessary. Performed By: #### R ENAL #### [address] [address] Potassium [Moles/Vol] 4.4 mmol/L Normal 3.5 - 5.3 [facility] Comment on above: Performed By: #### R ENAL #### [address] [address] Sodium [Moles/Vol] 137 mmol/L Normal 136 - 145 [facility] Comment on above: Performed By: #### R ENAL #### [address] [address] Urea nitrogen [Mass/Vol] 17 mg/dL Normal 6 - 23 [facility] Comment on above: Performed By: #### R ENAL #### [address] [address] Renal Function Panelon 12-05 Albumin BCP dye [Mass/Vol] 3.4 g/dL 3.4 - 5.0 [facility] Work Phone: Anion gap [Moles/Vol] 11 mmol/L 10 - 20 [facility] Work Phone: Calcium [Mass/Vol] 8.5 mg/dL below low threshold 8.6 - 10.3 [facility] Work Phone: Chloride [Moles/Vol] 105 mmol/L 98 - 107 [facility] Work Phone: CO2 [Moles/Vol] 25 mmol/L 21 - 32 [facility] yng[facility] Work Phone: Creatinine [Mass/Vol] 0.77 mg/dL See Below [facility] Work Phone: Comment on above: Reference Range: 0.5 0 - 1.05 Glucose [Mass/Vol] 123 mg/dL above high threshold 74 - 99 [facility] Work Phone: Phosphate [Mass/Vol] 3.6 mg/dL 2.5 - 4.9 [facility] Work Phone: Comment on above: The performance ya acteristics of phosphorus testing in heparinized plasma have been validated by the individual laboratory site where testing is performed. Testing on heparinized plasma is not approved by the FDA; however, such approval is not necessary. Potassium [Moles/Vol] 4.4 mmol/L 3.5 - 5.3 [facility] Work Phone: Sodium [Moles/Vol] 137 mmol/L 136 - 145 [facility] Work Phone: Urea nitrogen [Mass/Vol] 17 mg/dL 6 - 23 [facility] Work Phone: Renal Function Panel >90 >90 [facility] Work Phone: Comment on above: CALCULATIONS OF ROSALIA MATED GFR ARE PERFORMED USING THE 2020 CKD-EPI STUDY REFIT EQUATION WITHOUT THE RACE VARIABLE FOR THE IDMS-TRACEABLE CREATININE METHODS.https://jasn.asnjournals.org/content//ASN.2 306589417 Admission Risk Screen - Adul ton 12-04-2021 Admission Risk Screen - Adult Allergies: Allergies: Succinylcholine Chloride: Unknown (Severe) Patient Verification: New W ID Band Applied in my Departmentno Type of ID Patient is WearingW wristband, but not applied here Patient Transferred from Other Facility ([facility], [facility],etc)no Patient Identity Verified Bypatient ID Band FULL Name, include Middle, spelling matches patient's ID used for verificationyes ID Band Matches Patient ID used for Verficationyes ID Band MRN Matches EMR MRNyes Visitor Restriction: Coronavirus Visitor Restriction: Reasonable restrictions to in-person visitors will be observed due to current coronavirus pandemic. Travel History: COVID-19 Screening Completedno exposure or symptoms Travel or Exposure Past 30 DaysNO travel to International locations in the past 30 days Ebola AlertFor Ebola-like Symptoms: Isolate Patient and Notify Provider/Rehabilitation Manager For Contact: Notify Provider/Rehabilitation Manager Advance Directive: Advance Directive/DNRno Advance Directive Information Givenpatient/family declined [place] Fall Screen: History of falling (immediate or previous)no (0) Secondary Diagnosisno (0) Intravenous Therapy/ Heparin/Saline Lockyes (20) Gait/Transferringnormal/be drest/wheelchair (0) Ambulatory Aidsnone/bedrest/nurse assist (0) Mental Statusoriented to own ability (0) Score: Low risk (<25). Moderate risk (25-44). High risk (>44).20 [place] InterventionsLOW INTERVENTIONS: *patient oriented to surroundings and call system, * patient/family falls education completed and documented, *patients fall status communicated during bedside handoff, *whiteboard updated, *mode of toileting discussed with patient, *bed in low position with brakes locked, *call light in reach, * non-skid footwear Family Violence Screen: Are you or have you been threatened or abused physically, emotionally, or sexually by anyoneno Do you feel UNSAFE going back to the place where you are livingno Clinical assessment: Are there any apparent signs of injuries/behaviors that could be related to abuse/neglectno Social Service Consult for abuse/neglect needed this visitno Functional Screen: Functional Screen: In the recent/past 2-4 weeks, patient or family have noticedno issues that require a speech/language consult at this time AM-PAC- Basic Mobility/Daily Activity: Patient baseline bedboundno Learning Assessment (Patient): Patient is Able to be Assessed for Learningyes Factors Influencing Readiness to Learninterest in learning Factors that Impact Ability to Learnnone Devices/Methods Used to Communicatecommunication board Learning Preferencesverbal instruction Cultural Considerationsnone Developmental Considerationsnone Yazidism Considerationsnone Learning Assessment (Other Learner): Other learner availableno Depression Screen: During the past month, have you often been bothered by feeling down, depressed or hopelessno During the past month, have you often had little interest or pleasure in doing thingsno Have you had any thoughts of harming anyone elseno [place] Suicide: Risk Screen Not Applicable/Able to Answerable to be screened In the Past Month: Have you wished you were or could go to sleep and not wake upno(1) In the Past Month: Have you had any actual thoughts of killing yourself no(1) Lifetime: Have you ever done, started to do, or prepared to do anything to end your lifeno(1) [place] Suicide Risknegative Adult Nutrition Screen: Have you recently lost weight without tryingno Have you been eating poorly because of a decreased appetiteno Malnutrition Screening Tool Score0 Malnutrition Screening Tool RiskMST = 0 or 1 Not at risk. Eating well with little or no weight loss Nutrition Consult needed this visitno Can Patient Participate in Room Serviceno Patient requires Paper Dishes/Plastic Utensilsno Pain Screen: Pain Scalenumerical 0-10 Pain Scale Educationteaching provided Current Pain Level5 = Moderate Acceptable Pain Level5 = Moderate Expression of Pain (nonverbal)none Chronic Painno Spiritual Screen: Are there any cultural, spiritual, hindu practices/values/needs that are important for us to knowno CAGE: Is this an injured patient at a Trauma Center ([facility]/[place]): no Vaccinations: Vaccination - Influenza Vaccination Screen: Is it flu season (between and December 04)Yes Screening for identified contraindications to influenza vaccination patient/caregiver refusal Vaccination - Pneumonia Vaccination Screen: Patient has received a previous pneumonia vaccine:no/unknown... Immunocompetent persons with underlying chronic conditions or reside in predatory animal exterminator care facilitiesnone of these conditions Persons with Functional or Anatomic Asplenianone of these conditions Immunocompromised Personsnone of these conditions Pneumonia v (more content not included)... Normal [facility] CORONAVIRUS 2019, SCREEN ASY MPTOMATICon 12-04-2021 DATE OF SYMPTOM ONSET [[id number]]? Canceled Normal [facility] Comment on above: Order Comment: TEST PT/INR WAS CANCELLED, 07/07/2021 12:20 SPECIMEN CLOTTED.PLEASE RESUBMITDUPLICATE ORDER. Performed By: #### P TINR #### [facility] [address] [place] [address] SARS-CoV-2 (COVID-19) RNA APURVA+probe Ql (Unsp spec) Canceled Normal [facility] Comment on above: Order Comment: TEST PT/INR WAS CANCELLED, 07/07/2021 12:20 SPECIMEN CLOTTED.PLEASE RESUBMITDUPLICATE ORDER. Result Comment: . This test has received FDA Emergency Use Authorization (EUA) and has been verified by [facility]. This test is only authorized for the duration of time that circumstances exist to justify the authorization of the emergency use of in vitro diagnostic tests for the detection of SARS-CoV-2 virus and/or diagnosis of COVID-19 infection under section 564(b)(1) of the Act, 21 U.S.C. 360bbb-3(b)(1), unless the authorization is terminated or revoked sooner. [facility] is certified under CLIA-88 as qualified to perform high complexity testing. Testing is performed in the [facility] laboratory located at [address] [place] [address]. SARS-CoV-2/Flu/RSV Multiplex Test: Fact sheet for providers: https://www.fda.gov/media/811897/download Fact sheet for patients: https://www.fda.gov/media/607205/download Performed By: #### P TINR #### [place] [address] Lab Specimen Source Nasal, Nasopharyngeal Normal [facility] Comment on above: Order Comment: TEST PT/INR WAS CANCELLED, 07/07/2021 12:20 SPECIMEN CLOTTED.PLEASE RESUBMITDUPLICATE ORDER. Performed By: #### P TINR #### [place] [address] Clinical Intervention - Jona osorio 12-04-2021 Clinical Intervention - Pharmacy Pharmacist's Clinical Intervention: Is this intervention medication reconciliation related: yes, History Electronic Signatures: Feliciano Martínez (BizeeBee) (Signed 04-Dec-2021 13:41) Authored: Pharmacist's Clinical Intervention Last Updated: 04-Dec-2021 13:41 by Feliciano Martínez (BizeeBee) Normal [facility] Coronavirus 2019 RNA by PCR, Screening Asymptomticon 12-04-2021 Date and time of symptom onset Canceled [facility] Work Phone: Coronavirus 2019 RNA by PCR, Screening Asymptomtic Canceled [facility] Work Phone: Comment on above: SOURCE: Nasal, Nasop haryngeal.This test has received FDA Emergency Use Authorization (EUA) and has been verified by [facility]. This test is only authorized for the duration of time that circumstances exist to justify the authorization of the emergency use of in vitro diagnostic tests for the detection of SARS-CoV-2 virus and/or diagnosis of COVID-19 infection under section 564(b)(1) of the Act, 21 U.S.C. 360bbb-3(b)(1), unless the authorization is terminated or revoked sooner. [facility] is certified under CLIA-88 as qualified to perform high complexity testing. Testing is performed in the [facility] laboratory located at [address] [place] [address].SARS-CoV-2/Flu/RSV Multiplex Test: Fact sheet for providers: https://www.fda.gov/media/295738/downloadFact sheet for patients: https://www.fda.gov/media/466261/download Discharge [id number] 022 Discharge Profile2 Discharge Orders: Anticipated Discharge Date: Anticipated Discharge [id number] Anticipated Discharge Time11:00 Problem List: Additional Dx: Thyroid cancer: Catalog Name: Malignant neoplasm of thyroid gland Medical History: Anxiety and depression: Catalog Name: Anxiety disorder, unspecified GERD (gastroesophageal reflux disease): Catalog Name: Gastro-esophageal reflux disease without esophagitis Thyroid nodule: Catalog Name: Nontoxic single thyroid nodule Surg History: History of back surgery: Catalog Name: Other specified postprocedural states History of foot surgery: Catalog Name: Other specified postprocedural states History of umbilical hernia repair: Catalog Name: Other specified postprocedural states History of appendectomy: Catalog Name: Acquired absence of other specified parts of digestive tract History of tubal ligation: Catalog Name: Tubal ligation status History of tonsillectomy: Catalog Name: Acquired absence of other organs Significant Events: Surgical Procedure: Clinical Events This Visit, 04-Dec-2021, 1. Completion right thyroidectomy see problem list: Past Medical History Hospital Providers: Provider RoleProvider Name AttendingEdy Dominguez Charles DNAR: Code Status at Discharge: Full Code Activity: activity as tolerated. May shower. do not submerge wound. May not drive while taking narcotics. No pushing, pulling, or lifting objects greater than 10 pounds for 2 week(s). Weight-bearing Instructions: full weight bearing. Diet: Dietregular Wound Care 1: Wound SiteNeck Wound Typesurgical incision Other InstructionsYou have small paper tapes over small surgery incisions. These tapes may get wet in shower, pat dry. The strips may become loose and fall off on their own, any strips that remain will be removed at your follow up visit. Additional Orders: Additional Instructions If you have numbness or tingling of the finger tips or around the mouth, please take calcium carbonate and call Dr. Dominguez's office. This may be a sign of low calcium in the blood. Please let us know if you have any changes in speech, swallow, or breathing or any moderate to severe swelling of the front of the neck. Call Provider If (Homegoing Patients): Breathing faster than normal. Breathing harder than normal or having retractions. Fever of 100.4 F (38 C) or higher. Temperature is greater than 102 degrees. Chills. Drinking less than normal. Not being able to go 4-6 hours between albuterol treatments. Urinating less than normal, over 1 day. Urinating less than 4 times per day. Acting very sleepy and difficult to awaken. Vomiting (throwing up) and not able to eat or drink for 12 hours. 3 or more loose, watery bowel movements in 24 hours (diarrhea). Any new concerning symptoms. 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 She presented on 12/04 for completion thyroidectomy. Transferred to PACU post-operatively for monitoring, then to regular nursing floor. Post-op course was uncomplicated. PACU PTH and calcium levels were normal. Diet was advanced as tolerated. IV medication transitioned to oral as diet advanced. On the day of discharge, the pt was tolerating a diet, pain was controlled on PO pain medication, and ambulating and voiding spontaneously. They were discharged home in stable condition and will follow up as an outpatient. Infectious Disease: PPD Statusnot given MRSAno VREno C. Diffno Other Resistant Organismno Isolation Typenone Provider FINAL REVIEW of Orders: Final Review: Final Review of Medication Reconciliation and Orders Completedby Physician Reviewing ProviderModesto Blackburn MD (Resident) at 05-Dec-2021 05:34:20 Appointments: Follow-Up Appointment 01: Physician/Dept/ServiceDr. Dominguez Reason for ReferralPostoperative (POV) Call to Schedule in2 weeks Phone [phone], please call with any questions CommentsYou will be called with a follow up appointment. IF you have not heard from us in 3 business days, please call the above number. Please arrive 10-15 minutes early, bring photo ID, insurance information, and current list of medications. If unable to keep this appointment, please call to cancel at least 24 hours prior to appointment. Other Clinician Instructions: Handouts Given: Topic 1thyroidectomy Topic 2colace Topic 3calcium carbonate Topic 4tramadol Topic 5low iodine diet Electronic Signatures: Modesto Blackburn (Resident)) (Signed 05-Dec-2021 05:34) Authored: Discharge Orders, Hospital Course (Home Care/Gold Form), Provider FINAL REVIEW of Orders, Appointments, Gold Form - Credit Analysis Manager Summary Alejandra Shukla (ASST N MGR) (Signed 05-Dec-19 (more content not included)... Normal [facility] HCG,URINEon 12-04-2021 Beta HCG ( test) Ql (U) Negative Normal Negative [facility] Comment on above: Performed By: #### H CGU #### [facility] [address] [place] [address] No Panel Informationon 12-04 Name JEAN-CLAUDE PINTO Myra Pathologist: LILLI AMAYA ASA, MD, PhD Date of Procedure: 12/04/2021 Date [facility] Work Phone: Order Reconciliationon 12-04 Order Reconciliation Page 1 Discharge Reconciliation Document Reconciliation Type: Discharge requested on behalf of Edy Dominguez (Physician) done by Edy Dominguez) Discharge - Reconciliation: 04-Dec-2021 05:53 by: Modesto Blackburn (Resident)) Discharge - Reset to Incomplete: 05-Dec-2021 06:53 by: Edy Dominguez) Discharge - Reconciliation: 05-Dec-2021 06:57 by: Edy Dominguez) Home Medications EnteredHOME MEDICATIONS AT DISCHARGE DateReconciliation Comment/ Additional Information omeprazole 20 mg oral delayed release capsule 1 cap(s) orally once a day 04-Jul-2021 11:26 omeprazole 20 mg oral delayed release capsule 1 cap(s) orally once a day 04-Jul-2021 11:26 omeprazole 20 mg oral delayed release capsule is continued as omeprazole 20 mg oral delayed release capsule traMADol 50 mg oral tablet 1 tab(s) orally every 6 hours as needed for pain not controlled with tylenol cesilia mckee, ICD10: G89.18 10-Jul-2021 13:57 Discontinued; Discontinue from ORM traMADol 50 mg oral tablet is not required Vraylar 1.5 mg oral capsule 1 cap(s) orally once a day 04-Jul-2021 11:27 Vraylar 1.5 mg oral capsule 1 cap(s) orally once a day 04-Jul-2021 11:27 Vraylar 1.5 mg oral capsule is continued as Vraylar 1.5 mg oral capsule Zoloft 25 mg oral tablet 0.5 tab(s) orally once a day 07-Jul-2021 11:03 Zoloft 25 mg oral tablet 0.5 tab(s) orally once a day 07-Jul-2021 11:03 Zoloft 25 mg oral tablet is continued as Zoloft 25 mg oral tablet Current OrdersDateHOME MEDICATIONS AT DISCHARGE DateReconciliation Comment/ Additional Information Acetaminophen Tablet (TYLENOL)DOSE = 975 mg Oral Every 8 Hours 04-Dec-2021 05:03 Acetaminophen is not required Bisacodyl Enteric Coated Enteric Coated Tablet (DULCOLAX)DOSE = 10 mg Oral Daily, PRN moderate constipation 04-Dec-2021 05:03 Bisacodyl Enteric Coated is not required Bisacodyl Rectal Suppository (DULCOLAX)DOSE = 10 mg Rectal Daily, PRN moderate constipation and no bm in 3 days 04-Dec-2021 05:03 Bisacodyl Rectal is not required Calcium Carbonate TabletDOSE = 2,500 mg Oral 3 Times a Day, PRN Calcium level less than 8.0Notes from Pharmacy: Calcium Carbonate 1,250 mg = Elemental Calcium 500 mg 04-Dec-2021 05:03 calcium carbonate 1250 mg (500 mg elemental calcium) oral tablet 1 tab(s) orally 3 times a day; to be taken for any numbness or tingling in fingertips 05-Dec-2021 06:54 Calcium Carbonate reconciled with the existing calcium carbonate 1250 mg (500 mg elemental calcium) oral tablet Calcium Carbonate TabletDOSE = 2,500 mg Oral 3 Times a Day, PRN For calcium levels 8.0 - 8.5Notes from Pharmacy: Calcium Carbonate 1,250 mg = Elemental Calcium 500 mg 04-Dec-2021 05:03 Calcium Carbonate is not required Calcium Gluconate IVPB in Dextrose 5% in Water 50 mLDOSE = 1 gram(s) Once, PRN For Calcium level less than 8.0Recommended Infusion Time: 30 minute(s)Stop After 1 Doses 04-Dec-2021 05:03 Calcium Gluconate IVPB is not required Cariprazine Capsule (VRAYLAR)DOSE = 1.5 mg Oral Daily 04-Dec-2021 05:06 Cariprazine is not required Docusate Capsule (COLACE)DOSE = 100 mg Oral 2 Times a Day 04-Dec-2021 05:03 docusate sodium 100 mg oral tablet 1 tab(s) orally 2 times a day 05-Dec-2021 06:54 Docusate reconciled with the existing docusate sodium 100 mg oral tablet Fleet Adult (Sodium Phosphate) Rectal EnemaDOSE = 1 enema Rectal Daily, PRN severe constipation 04-Dec-2021 05:03 Fleet Adult (Sodium Phosphate) Rectal is not required Heparin SubCutaneous DOSE = 5,000 unit(s) SubCutaneous Every 8 HoursNotes from Pharmacy: Note Concentration Prior to Administration 04-Dec-2021 05:03 Heparin SubCutaneous is not required Magnesium Hydroxide Oral Liquid CONCENTRATE (MILK OF MAGNESIA)DOSE = 10 mL Oral Every 24 Hours, PRN no bowel movement in 3 days 04-Dec-2021 05:03 Magnesium Hydroxide Oral Liquid CONCENTRATE is not required Ondansetron Injectable (ZOFRAN)DOSE = 4 mg IntraVenous Push Every 6 Hours, PRN Nausea & Vomiting 04-Dec-2021 05:03 Ondansetron Injectable is not required oxyCODONE Immediate Release Tablet (OXYIR, ROXICODONE)DOSE = 10 mg Oral Every 4 Hours, PRN Pain - Severe (7-10) 04-Dec-2021 05:03 oxyCODONE Immediate Release is not required oxyCODONE Immediate Release Tablet (OXYIR, ROXICODONE)DOSE = 5 mg Oral Every 4 Hours, PRN Pain - Mod (4-6) 04-Dec-2021 05:03 oxyCODONE Immediate Release is not required Pantoprazole Enteric Coated Tablet (PROTONIX)DOSE = 40 mg Oral Daily, PRN indigestion/acid reflux 04-Dec-2021 05:03 Pantoprazole is not required Sennosides Tablet (SENOKOT)DOSE = 1 tablet(s) Oral Daily 04-Dec-2021 05:03 Sennosides is not required Sore Throat Lozenge LozengeDOSE = 1 lozenge(s) Oral Every 2 Hours, PRN Sore Throat 04-Dec-2021 05:03 Sore Throat Lozenge is not required Home Medications Added During Discharge Reconciliation Synthroid 200 mcg (0.2 mg) oral tablet 1 tab(s) orally once a day traMADol 50 mg oral tablet 1 tab(s) orally christina (more content not included)... Normal [facility] Order Reconciliation Page 1 Admission Reconciliation Document Reconciliation Type: Admission from OR requested on behalf of Modesto Blackburn (Resident) done by Modesto Blackburn (Resident)) Admission from OR - Reconciliation: 04-Dec-2021 05:06 by: Modesto Blackburn ( (Resident)) Home MedicationsEnteredLast Dose TakenReconciled with current Order Reconciliation Comment/ Additional Information omeprazole 20 mg oral delayed release capsule 1 cap(s) orally once a day 04-Dec-2021 Reviewed and Held traMADol 50 mg oral tablet 1 tab(s) orally every 6 hours as needed for pain not controlled with tylenol an rylee, ICD10: [id number] Reviewed and Held Vraylar 1.5 mg oral capsule 1 cap(s) orally once a [id number] Cariprazine Capsule (VRAYLAR)DOSE = 1.5 mg Oral DailyVraylar 1.5 mg oral capsule continued as the inpatient order Cariprazine Zoloft 25 mg oral tablet 0.5 tab(s) orally once a [id number] Reviewed and Held Additional Current Orders Acetaminophen Tablet (TYLENOL)DOSE = 975 mg Oral Every 8 Hours Bisacodyl Enteric Coated Enteric Coated Tablet (DULCOLAX)DOSE = 10 mg Oral Daily, PRN moderate constipation Bisacodyl Rectal Suppository (DULCOLAX)DOSE = 10 mg Rectal Daily, PRN moderate constipation and no bm in 3 days Calcium Carbonate TabletDOSE = 2,500 mg Oral 3 Times a Day, PRN Calcium level less than 8.0 Calcium Carbonate TabletDOSE = 2,500 mg Oral 3 Times a Day, PRN For calcium levels 8.0 - 8.5 Calcium Gluconate IVPB in Dextrose 5% in Water 50 mLDOSE = 1 gram(s) Once, PRN For Calcium level less than 8.0Recommended Infusion Time: 30 minute(s)Stop After 1 Doses Docusate Capsule (COLACE)DOSE = 100 mg Oral 2 Times a Day Fleet Adult (Sodium Phosphate) Rectal EnemaDOSE = 1 enema Rectal Daily, PRN severe constipation Heparin SubCutaneous DOSE = 5,000 unit(s) SubCutaneous Every 8 Hours Magnesium Hydroxide Oral Liquid CONCENTRATE (MILK OF MAGNESIA)DOSE = 10 mL Oral Every 24 Hours, PRN no bowel movement in 3 days Ondansetron Injectable (ZOFRAN)DOSE = 4 mg IntraVenous Push Every 6 Hours, PRN Nausea & Vomiting oxyCODONE Immediate Release Tablet (OXYIR, ROXICODONE)DOSE = 10 mg Oral Every 4 Hours, PRN Pain - Severe (7-10) oxyCODONE Immediate Release Tablet (OXYIR, ROXICODONE)DOSE = 5 mg Oral Every 4 Hours, PRN Pain - Mod (4-6) Pantoprazole Enteric Coated Tablet (PROTONIX)DOSE = 40 mg Oral Daily, PRN indigestion/acid reflux Sennosides Tablet (SENOKOT)DOSE = 1 tablet(s) Oral Daily Sore Throat Lozenge LozengeDOSE = 1 lozenge(s) Oral Every 2 Hours, PRN Sore Throat Normal [facility] PARATHYROID HORMONE,INTACTon 12-04-2021 PARATHYROID HORMONE,INTACT 38.9 pg/mL Normal 12.0 - 88.0 [facility] Comment on above: Performed By: #### P TH #### [facility] [address] [place] [address] Parathormone Intact, Serumon 12-04-2021 Parathyrin.intact [Mass/Vol] 38.9 pg/mL See Below MG-Otolaryngol Dave Work Phone: Comment on above: Reference Range: 12. 0 - 88.0 Patient Profile - Adult v2on 12-04-2021 Patient Profile - Adult v2 Profile: Initial Info: How to be Addressedmichelle(1) Spoken Language PreferredEnglish (1) Stated Reason for AdmissionSurgery Wants Family/Rep Notified of Admissionn/a; family present Notify PCPnotify PCP Informed of Patient Visiting Rightsyes Arrived FromOR Patient Belongingsnone Medications Brought to Hospitalno General Health: Blood Avoidance/Restrictionsnone (1) Previous Transfusion Reactionnot applicable(1) Weight in kg155.9 kilogram(s)(2) Weight in xyk063.7 pound(s) Weight Methodstated Scale Typebed Height in cm185.1 centimeter(s)(2) Height in feet6 feet Height in inches0.91 inch(es) Height Methodstated BMI (kg/m2)45.502 square meter RSP Based Care: How would you like to participate in your careas much as possible. What is the number one concern for you during this hospitalizationPain control. What is the most important thing we can do to support you during this hospitalizationPain management. Is there anything we need to know to best care for youNo. Substance: Smoking Statusnever smoker Health Mgmt: Symptoms/Conditions Managed at Homegastrointestinal Are You no (3) Are You Currently Breastfeedingno (3) Gastrointestinal 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 Relationship/Environ: Living Environment Commentsdaughter is 16yo(4) Resource/Environmental Concernsnone Primary Source of Support/Comfortsibling(s) Lives Withdependent child(fely) Living Arrangementshouse Services Anticipated at Transitionnone Anticipated Transition Tohome Significant IndicatorsComplete Information Review: Allergies, Home Meds and Significant Events have been Reviewed and Verified with Patient/Familyyes ALLERGY, INTOLERANCE, ADVERSE EVENT: Allergies: Succinylcholine Chloride: Drug, Unknown (Severe), Active Electronic Signatures: Nisha Chiu (DENISE) (Signed 04-Dec-2021 15:45) Authored: Initial Info, General Health, RSP Based Care, Substance, Health Mgmt, Relationship/Environ, Additional Information Last Updated: 04-Dec-2021 15:45 by Nisha Chiu (DENISE) References: 1. Data Referenced From Patient Profile - Preop v3 04-Dec-2021 06:23 2. Data Referenced From 1. Vital Signs 04-Dec-2021 06:23 3. Data Referenced From History and Physical - Surgery > 30 days 04-Dec-2021 07:30 4. Data Referenced From Patient Profile - Adult v2 10-Jul-2021 12:57 [facility] Patient Profile - Preop v3on 12-04-2021 Patient Profile - Preop v3 Patient Profile - Preop: Initial Info: Patient DemographicsName: LAURO PINTO Date: 1975 Address: [address] [place] [address] Primary Phone [phone] How to be Addressedmichelle Spoken Language PreferredEnglish Source of Informationpatient Stated Reason for Admissionthyroidectomy Primary Contact Name and Numberbrenda-mother Limitations on Visitors/Phone Callsonly immediate family may visit Medications Brought to Hospitalno General Health: Weight in kg155.9 kilogram(s) Weight in mxm572.7 pound(s) Weight Methodstated Height in feet6 feet Height in inches0.95 inch(es) Height in cm185.2 centimeter(s) Height Methodstated BMI (kg/m2)45.453 square meter Patient or Family Member Reaction to Anesthesiafamily reaction; no previous reaction Family Reaction to Anesthesiamalignant hyperthermia Blood Avoidance/Restrictionsnone Previous Transfusion Reactionnot applicable Health Mgmt: Symptoms/Conditions Managed at Homesee problem list; respiratory Are You no Are You Currently Breastfeedingno Barriers to Managing Healthnone Relationship/Environ: Lives Withdependent child(fely) Living Arrangementshouse Resource/Environmental Concernsnone Anticipated Transition Toinpatient acute unit Services Anticipated at Transitionnone Tobacco Use: Tobacco Useno Pre-op Checklist: Arrival [id number] Arrival Time06:03 Procedure Typethyroidectomy NPOyes Last Food [id number] 20:00 Last Clear Fluid Ohbkdq84-Wpe-1216 20:00 ID Band On Patientpatient ID (name), allergy Consent Signedyes H&P Completeyes Anesthesia Assessment Completedpending EKG Performedyes Chest X-Ray Performednot ordered Preop Antibioticsnot ordered COVID 19 Results in Last 7 daysneg Type and Screen Resultedn/a HCG Urine TestUrine Sent Chlorhexadine Bath Givennot applicable Nasal Antiseptic Appliednot applicable Soap and Water Bath the Night Before Surgeryyes Hair Washed with Shampooyes Bowel Prepno Surgical Site Infection Preventionyes Pain Scales and Managementyes Additional Information: Information Review: Allergies, Home Meds and Significant Events have been Reviewed and Verified with Patient/Familyyes Allergy, Intolerance, Adverse Event: Allergies: Succinylcholine Chloride: Drug, Unknown (Severe), Active Significant Events: 04-Dec-2021 see problem list: Past Medical History, Active Electronic Signatures: Portia Naylor (SALLY) (Signed 04-Dec-2021 06:47) Authored: Initial Info, General Health, Health Mgmt, Relationship/Environ, Tobacco Use, Pre-op Checklist, Additional Information Last Updated: 04-Dec-2021 06:47 by Portia Naylor (SALLY) Normal [facility] RENAL FUNCTION PANELon 12-04 Albumin [Mass/Vol] 3.6 g/dL Normal 3.4 - 5.0 [facility] Comment on above: Performed By: #### R ENAL #### [address] [address] Anion gap [Moles/Vol] 13 mmol/L Normal 10 - 20 [facility] Comment on above: Performed By: #### R ENAL #### [address] [address] Calcium [Mass/Vol] 8.5 mg/dL Low 8.6 - 10.3 [facility] Comment on above: Performed By: #### R ENAL #### [address] [address] Chloride [Moles/Vol] 106 mmol/L Normal 98 - 107 [facility] Comment on above: Performed By: #### R ENAL #### [address] [place] [address] Creatinine [Mass/Vol] 0.89 mg/dL Normal 0.50 - 1.05 [facility] Comment on above: Performed By: #### R ENAL #### [address] [address] GFR/1.73 sq M.predicted among non-blacks MDRD (S/P/Bld) [Vol rate/Area] 81 mL/min/{1.73_m2} Normal >90 [facility] Comment on above: Result Comment: CALC ULATIONS OF ESTIMATED GFR ARE PERFORMED USING THE 2020 CKD-EPI STUDY REFIT EQUATION WITHOUT THE RACE VARIABLE FOR THE IDMS-TRACEABLE CREATININE METHODS. https://jasn.asnjournals.org/content/early//ASN.226451189 8 Performed By: #### R ENAL #### [address] [address] Glucose [Mass/Vol] 116 mg/dL High 74 - 99 [facility] Comment on above: Performed By: #### R ENAL #### [address] [address] HCO3 (Bld) [Moles/Vol] 21 mmol/L Normal 21 - 32 [facility] Comment on above: Performed By: #### R ENAL #### [address] [address] Phosphate [Mass/Vol] 2.5 mg/dL Normal 2.5 - 4.9 [facility] Comment on above: Result Comment: The performance characteristics of phosphorus testing in heparinized plasma have been validated by the individual laboratory site where testing is performed. Testing on heparinized plasma is not approved by the FDA; however, such approval is not necessary. Performed By: #### R ENAL #### [place] [id number] [facility] [place] [address] Potassium [Moles/Vol] 4.1 mmol/L Normal 3.5 - 5.3 [facility] Comment on above: Performed By: #### R ENAL #### [address] [place] [address] Sodium [Moles/Vol] 136 mmol/L Normal 136 - 145 [facility] Comment on above: Performed By: #### R ENAL #### [address] [place] [address] Urea nitrogen [Mass/Vol] 15 mg/dL Normal 6 - 23 [facility] Comment on above: Performed By: #### R ENAL #### [address] [place] [address] Renal Function Panelon 12-04 Albumin BCP dye [Mass/Vol] 3.6 g/dL 3.4 - 5.0 [facility] Work Phone: Anion gap [Moles/Vol] 13 mmol/L 10 - 20 [facility] Work Phone: Calcium [Mass/Vol] 8.5 mg/dL below low threshold 8.6 - 10.3 [facility] Work Phone: Chloride [Moles/Vol] 106 mmol/L 98 - 107 [facility] Work Phone: CO2 [Moles/Vol] 21 mmol/L 21 - 32 [facility]Otolar yngol [facility] Work Phone: Creatinine [Mass/Vol] 0.89 mg/dL See Below [facility] Work Phone: Comment on above: Reference Range: 0.5 0 - 1.05 Glucose [Mass/Vol] 116 mg/dL above high threshold 74 - 99 [facility] Work Phone: Phosphate [Mass/Vol] 2.5 mg/dL 2.5 - 4.9 [facility] Work Phone: Comment on above: The performance ya acteristics of phosphorus testing in heparinized plasma have been validated by the individual laboratory site where testing is performed. Testing on heparinized plasma is not approved by the FDA; however, such approval is not necessary. Potassium [Moles/Vol] 4.1 mmol/L 3.5 - 5.3 [facility] Work Phone: Sodium [Moles/Vol] 136 mmol/L 136 - 145 [facility]erino laryngol [facility] Work Phone: Urea nitrogen [Mass/Vol] 15 mg/dL 6 - 23 [facility] Work Phone: Renal Function Panel 81 {mL/min/1.73m2} >90 [facility] Work Phone: Comment on above: CALCULATIONS OF ROSALIA MATED GFR ARE PERFORMED USING THE 2020 CKD-EPI STUDY REFIT EQUATION WITHOUT THE RACE VARIABLE FOR THE IDMS-TRACEABLE CREATININE METHODS.https://jasn.asnjournals.org/content/early//ASN.2 763968856 [facility] Surgical Pathology Department Name LAURO PINTO Pathologist: LILLI AMAYA ASA, MD, PhD Date of Procedure: 12/04/2021 Date Received: 12/04/2021 Date Reported 12/10/2021 Submitting Physician: EDY DOMINGUEZ MD Location: [facility] Other External # FINAL DIAGNOSIS A. RIGHT HEMITHYROID STITCH@ ISTHMUS: MILD FOLLICULAR NODULAR DISEASE: THYROID, RIGHT COMPLETION THYROIDECTOMY SPECIMEN Electronically Signed Out By LILLI AMAYA ASA, MD, PhD/SLA By the signature on this report, the individual or group listed as making the Final Interpretation/Diagnosis certifies that they have reviewed this case. Clinical History: Completion Right Thyroidectomy Specimens Submitted As: A: RIGHT HEMITHYROID STITCH@ ISTHMUS Gross Description: Received in formalin, labeled with the patient's name and hospital number and right hemithyroid, stitch at isthmus , is an oriented thyroid lobectomy that weighs 11.8 gm and measures 4.8 x 2.6 x 1.5 cm. The surface has fibrous adhesions and is inked as follows: anterior blue, posterior black. The isthmus resection margin, as indicated by a stitch, is inked green. There are no surface nodules. On section, there are no nodules identified. The specimen is entirely submitted in 16 cassettes. Gross specimen was reviewed in person with Jennifer on 12/06/2021 at 6:00 PM. A 1-16 Lobe in toto superior to inferior AMD amd/12/06/2021 [facility] Department of Pathology [address] [place] [address] Normal [facility] Comment on above: Performed By: #### [facility] #### [facility] Surgical Pathology Department [address] [place] [address] Urine Teston 12-04 HCG ( test) Ql (U) Negative Negative MG-Otolaryngol [facility] Work Phone: Established Visit (Otolaryng ology)on 10-27-2021 Established Visit (Otolaryngology) Diagnoses/Problems Thyroid nodule (241.0) (E04.1) Provider Impressions 46 year old female 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 Outside images were requested and reviewed. 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 Completion thyroidectomy recommended. We discussed risks of bleeding, infection, damage to recurrent laryngeal nerve, hypocalcemia. Since she is traveling from far away she will stay overnight for observation. All questions answered and consent was obtained Chief Complaint f/u thyroid cancer History of Present IllnessPatient presents today to discuss completion thyroidectomy. 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 She has been doing well and has not had any significant changes. No issues with voice or swallowing Review of Systems ENT and Constitutional systems have been reviewed and are negative for complaint except what is stated in the HPI and/or Past Medical History. Active Problems Thyroid nodule (241.0) (E04.1) Allergies No Known Drug Allergies Recorded By: Alayna Vazquez; 04/07/2021 2:26:54 PM Current Meds Medication NameInstruction Omeprazole TBEC Sertraline HCl CONC Vraylar 1.5 MG Oral CapsuleTAKE 1 CAPSULE BY MOUTH ONCE DAILY Vitals Vital Signs Recorded: 75Loz9506 09:32AM Lycadiykdkj09.9 F Gznhteak754 Jhqdpumkj02 Height6 ft 1 in Tpdlre826 lb BMI Yaxirznebk32.25 kg/m2 BSA Calculated2.71 Tobacco Useb) No Fall Screeninga) No falls within the last year Pain Scale0 Physical Exam Well appearing individual in no acute distress. No stertor and no Stridor. Good voice. No LAD. Skin is soft and supple. Oral cavity and oropharynx are without lesions. No thyromegaly. Anterior rhinoscopy reveals normal nasal mucosa bilaterally. EAC normal AU with RITIKA. Cranial Nerves grossly intact. Neck incision well-healed. Strong gag reflex Procedure Due to an excessive gag reflex after verbal consent a flexible laryngoscopy was performed. No lesions in the nasal cavity, nasopharynx, oropharynx, hypopharynx or larynx were seen. Normal TVC mobility was appreciated. 'Scores and Scales' Signatures Electronically signed by : Edy Dominguez MD; Oct 27 2021 10:15AM EST (Author) Normal [facility] Falls Risk Screeningon 10-27 Fall risk assessment a) No falls within the last year [facility]-Otolaryngol [employer] Work Phone: Tobacco use status [facility] b) No [facility]tol[facility] [facility] 250 Work Phone: COVID + FLU Quick Testingon 08-16-2021 SARS-CoV-2 (COVID-19) RNA APURVA+probe Ql (Unsp spec) Positive [facility] Other COVID + FLU Quick Testing Negative [facility] Other Established Visit (Otolaryng ology)on 07-21-2021 Established Visit (Otolaryngology) Diagnoses/Problems Thyroid nodule (241.0) (E04.1) Provider Impressions 46 year old female 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 Outside images were requested and reviewed. 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 She is now status post left hemithyroidectomy -Follow-up final pathology, will contact once available -She will make a follow-up for approximately 2 months, we may adjust this pending final pathology Chief Complaint postop History of Present IllnessPatient presents today after hemithyroidectomy. Final pathology pending. Doing well since her surgery. No issues with voice or swallowing Review of Systems ENT and Constitutional systems have been reviewed and are negative for complaint except what is stated in the HPI and/or Past Medical History. Active Problems Thyroid nodule (241.0) (E04.1) Allergies No Known Drug Allergies Recorded By: Alayna Vazquez; 04/07/2021 2:26:54 PM Current Meds Medication NameInstruction Omeprazole TBEC Sertraline HCl CONC Vraylar 1.5 MG Oral CapsuleTAKE 1 CAPSULE BY MOUTH ONCE DAILY Vitals Vital Signs Recorded: 68Mcr4686 02:48PM Lpplpaltqrc53.9 F Qttnphfd114 Kfrzvjxgz09 Height6 ft 1 in Usxlvu117 lb BMI Uiavcinyig58.59 kg/m2 BSA Calculated2.69 Tobacco Useb) No Fall Screeninga) No falls within the last year Pain Scale2 Physical Exam Steri-Strips removed, neck incision healing well, no sign of infection or fluid collection 'Scores and Scales' Signatures Electronically signed by : Edy Dominguez MD; Jul 25 2021 4:35AM EST (Author) Normal [facility] Tobacco Screening.on 021 Fall risk assessment a) No falls within the last year [facility] Work Phone: Tobacco use status [facility] b) No [facility] Work Phone: Daily Progress Note-ENTon Daily Progress Note-ENT Service: ENT Subjective Data: LAURO PINTO is a 46 year old Female who is Hospital Day # 2 and POD #1 for 1. Left hemithyroid lobectomy. Additional Information: no issues overnight pain and headache improved O: AFVSS drain output minimal-removed neck soft and flat steri strips in place A/P s/p left hemithyroidectomy for thyroid nodule -drain removed -d/c today Objective Data: Objective Information: T PRBPSpO2 [id number]/5698% Date/Time07/10 22:5307/10 22: 19: 22: 22:53 Range(36.2C - 36.8C ) (69 - 83 ) (13 - 18 ) (108 - 133 )/ (56 - 73 ) (97% - 98% ) As of 10-Jul-2021 16:01:00, patient is on 2 L/min of oxygen via room air. Pain reported at 07/11 2:45: 4 = Moderate ---- Intake and Output ----- Mn/Dy/Year TimeIntakeOutputNet Jul 11, 2021 6:00 [id number] Jul 10, 2021 10:00 [id number] Jul 10, 2021 2:00 [id number] The Intake and Output Totals for the last 24 hours are: IntakeOutputNet [id number] Recent Lab Results: Results: Coagulation: 07/10/2021 07:50 PT / 12.0 / -------< INR < 1.0 PTT\ 26 \ Assessment and Plan: Comorbidities: Comorbidityobesity Obesitymorbid obesity (BMI 40+) Code Status: Code StatusFull Code Electronic Signatures: Edy Dominguez) (Signed 11-Jul-2021 06:06) Authored: Service, Subjective Data, Objective Data, Assessment and Plan, Note Completion Last Updated: 11-Jul-2021 06:06 by Edy Dominguez) Normal [facility] APTTon 07-10-2021 aPTT Coag (Bld) [Time] 26 s Normal 25 - 35 [facility] Comment on above: Result Comment: THE APTT IS NO LONGER USED FOR MONITORING UNFRACTIONATED HEPARIN THERAPY. FOR MONITORING HEPARIN THERAPY, USE THE HEPARIN ASSAY. Performed By: #### A PTT #### [facility] [address] [facility] [place] [address] Activated Partial Thrombopla stin Timeon 07-10-2021 aPTT Coag (PPP) [Time] 26 s 25 - 35 [facility]tolaryngol [facility] Work Phone: Comment on above: THE APTT IS NO LONGE R USED FOR MONITORING UNFRACTIONATED HEPARIN THERAPY. FOR MONITORING HEPARIN THERAPY, USE THE HEPARIN ASSAY. Admission Risk Screen - Adul ton 07-10-2021 Admission Risk Screen - Adult Allergies: Allergies: Succinylcholine Chloride: Unknown (Severe) Patient Verification: New W ID Band Applied in my Departmentyes Patient Identity Verified Bypatient ID Band FULL Name, include Middle, spelling matches patient's ID used for verificationyes ID Band Matches Patient ID used for Verficationyes ID Band MRN Matches EMR MRNyes Visitor Restriction: Coronavirus Visitor Restriction: Reasonable restrictions to in-person visitors will be observed due to current coronavirus pandemic. Travel History: COVID-19 Screening Completedno exposure or symptoms(1) Travel or Exposure Past 30 DaysNO travel to International locations in the past 30 days Ebola AlertFor Ebola-like Symptoms: Isolate Patient and Notify Provider/Rehabilitation Manager For Contact: Notify Provider/Rehabilitation Manager Advance Directive: Advance Directive/DNRno Advance Directive Information Givenpatient/family declined [place] Fall Screen: History of falling (immediate or previous)no (0) Secondary Diagnosisno (0) Intravenous Therapy/ Heparin/Saline Lockyes (20) Gait/Transferringweak (10) Ambulatory Aidsnone/bedrest/nurse assist (0) Mental Statusoriented to own ability (0) Score: Low risk (<25). Moderate risk (25-44). High risk (>44).30 [place] InterventionsLOW INTERVENTIONS: *patient oriented to surroundings and call system, * patient/family falls education completed and documented, *patients fall status communicated during bedside handoff, *whiteboard updated, *mode of toileting discussed with patient, *bed in low position with brakes locked, *call light in reach, * non-skid footwear, MODERATE INTERVENTIONS: *Low Interventions Plus: * falls risk band/sticker applied to patient, *yellow non-skid footwear, *instruct to call for assistance before getting out of bed, *bed/chair/bedside commode/toilet alarms, *sensory devices/ambulatory aides available and in reach, *medications reviewed for potential side effects and care planning., HIGH INTERVENTIONS *Low and Moderate Interventions Plus: * supervised toileting at all times Family Violence Screen: Are you or have you been threatened or abused physically, emotionally, or sexually by anyoneno Has anyone ever threatened to hurt your family or your petsno Does anyone try to keep you from having/contacting other friends or doing things outside your homeno Do you feel UNSAFE going back to the place where you are livingno Do you feel anyone has exploited or taken advantage of you financially or of your personal propertyno Clinical assessment: Are there any apparent signs of injuries/behaviors that could be related to abuse/neglectno Social Service Consult for abuse/neglect needed this visitno Functional Screen: Functional Screen: In the recent/past 2-4 weeks, patient or family have noticedno issues that require a speech/language consult at this time AM-PAC- Basic Mobility/Daily Activity: Patient baseline bedboundno Turning from your back to your side while in a flat bed without using bedrailsa little Moving from lying on your back to sitting on the side of a flat bed without using bedrailsa little Moving to and from bed to chair (including a wheelchair)a little Standing up from a chair using your arms (e.g. wheelchair or bedside chair)a little To walk in hospital rooma little Climbing 3-5 steps with railinga little Basic Mobility - Total Score18 Putting on and taking off regular lower body clothinga little Bathing (including washing, rinsing, drying)a little Putting on and taking off regular upper body clothinga little Toileting, which includes using toilet, bedpan or urinala little Taking care of personal grooming such as brushing teethnone Eating Mealsnone Daily Activity - Total Score20 Learning Assessment (Patient): Patient is Able to be Assessed for Learningyes Factors Influencing Readiness to Learnmotivation lacking Factors that Impact Ability to Learnnone Devices/Methods Used to Communicatenone Learning Preferencesskill demonstration; verbal instruction Cultural Considerationsnone Developmental Considerationsnone Yazidism Considerationsnone Learning Assessment (Other Learner): Other learner availableno Depression Screen: During the past month, have you often been bothered by feeling down, depressed or hopelessno During the past month, have you often had little interest or pleasure in doing thingsno Have you had any thoughts of harming anyone elseno [place] Suicide: Risk Screen Not Applicable/Able to Answerable to be screened In the Past Month: Have you wished you were or could go to sleep and not wake upno(1) In the Past Month: Have you had any actual thoughts of killing yourself no(1) Lifetime: Have you ever done, started to do, or prepared to do anything to end your lifeno(1) [place] Suicide Risknegative Adult Nutrition Screen: (more content not included)... [facility] Discharge [id number] Discharge Profile2 Discharge Orders: Anticipated Discharge Date: Anticipated Discharge [id number] Anticipated Discharge Time11:00 Problem List: Medical History: Thyroid nodule: Catalog Name: Nontoxic single thyroid nodule Significant Events: Surgical Procedure: Clinical Events This Visit, 10-Jul-2021, 1. Left hemithyroid lobectomy Hospital Providers: Provider RoleProvider Name AttendingEdy Dominguez DNAR: DNAR Status: none Activity: activity as tolerated. May shower. Avoid direct water on incision. May not drive while taking narcotics. No pushing, pulling, or lifting objects greater than 10 pounds for 2 week(s). Weight-bearing Instructions: full weight bearing. Diet: Dietregular Wound Care 1: Wound SiteNeck Wound Typesurgical incision Other InstructionsYou have small paper tapes over small surgery incisions. These tapes may get wet in shower, pat dry. The strips may become loose and fall off on their own, any strips that remain will be removed at your follow up visit. Drain/Tube Care 1: TypeJP (Palmer Salamanca) Suctionself Call Provider If (Homegoing Patients): Breathing faster than normal. Breathing harder than normal or having retractions. Fever of 100.4 F (38 C) or higher. Temperature is greater than 102 degrees. Chills. Drinking less than normal. Acting very sleepy and difficult to awaken. Vomiting (throwing up) and not able to eat or drink for 12 hours. 3 or more loose, watery bowel movements in 24 hours (diarrhea). Any new concerning symptoms. Hospital Course (Home Care/Gold Form): Hospital Course: Hospital Course: include significant abnormal lab values Lauro Pinto is a 46 yr old female with a left thyroid nodule s/p left hemithyroidectomy on 07/10/[address] Dominguez. Please see operative report for full details. Patient tolerated the procedure well and recovered briefly in PACU before being transitioned to regular nursing floor. Post-op course was uncomplicated. Diet was advanced as tolerated. IV medication transitioned to oral as diet advanced. On the day of discharge, the pt was tolerating a diet, pain was controlled on PO pain medication, and they were ambulating and voiding spontaneously. She was discharged home in stable condition with instructions to follow up as outpatient. Drain was removed prior to d/c Provider FINAL REVIEW of Orders: Final Review: Final Review of Medication Reconciliation and Orders Completedby Physician Reviewing ProviderEdy Dominguez MD at 11-Jul-2021 06:07:48 Electronic Signatures: Juan Becerra (Resident)) (Signed 10-Jul-2021 13:56) Authored: Discharge Orders, Hospital Course (Home Care/Gold Form), Gold Form - Credit Analysis Manager Summary Edy Dominguez) (Signed 11-Jul-2021 06:07) Authored: Discharge Orders, Hospital Course (Home Care/Gold Form), Provider FINAL REVIEW of Orders Last Updated: 11-Jul-2021 06:07 by Edy Dominguez) [facility] HCG,URINEon 07-10-2021 Beta HCG ( test) Ql (U) Negative Normal Negative [facility] Comment on above: Performed By: #### H CGU #### [facility] [address] [place] [address] Laboratory - Coagulationon 1 09-09-2020 INR Coag (PPP) [Relative time] 1.0 {INR} 0.9 - 1.1 [facility] Work Phone: PT Coag (PPP) [Time] 12.0 s See Below [facility] Work Phone: Comment on above: Reference Range: 10. 1 - 13.3 No Panel Informationon 07-10 Name JEAN-CLAUDE PINTO Pathologist: LILLI AMAYA ASA, MD, PhD Date of Procedure: 07/10/2021 Date Receive [facility] Work Phone: Order Reconciliationon 07-10 Order Reconciliation Page 1 Discharge Reconciliation Document Reconciliation Type: Discharge requested on behalf of Juan Becerra (Resident) done by Juan Becerra ( (Resident)) Discharge - Reconciliation: 10-Jul-2021 13:57 by: Juan Becerra ( (Resident)) Home Medications EnteredHOME MEDICATIONS AT DISCHARGE DateReconciliation Comment/ Additional Information omeprazole 20 mg oral delayed release capsule 1 cap(s) orally once a day 04-Jul-2021 11:26 omeprazole 20 mg oral delayed release capsule 1 cap(s) orally once a day 04-Jul-2021 11:26 omeprazole 20 mg oral delayed release capsule is continued as omeprazole 20 mg oral delayed release capsule Vraylar 1.5 mg oral capsule 1 cap(s) orally once a day 04-Jul-2021 11:27 Vraylar 1.5 mg oral capsule 1 cap(s) orally once a day 04-Jul-2021 11:27 Vraylar 1.5 mg oral capsule is continued as Vraylar 1.5 mg oral capsule Zoloft 25 mg oral tablet 0.5 tab(s) orally once a day 07-Jul-2021 11:03 Zoloft 25 mg oral tablet 0.5 tab(s) orally once a day 07-Jul-2021 11:03 Zoloft 25 mg oral tablet is continued as Zoloft 25 mg oral tablet Current OrdersDateHOME MEDICATIONS AT DISCHARGE DateReconciliation Comment/ Additional Information Acetaminophen Tablet (TYLENOL)DOSE = 975 mg Oral Every 8 Hours 10-Jul-2021 08:48 Acetaminophen is not required Bisacodyl Enteric Coated Enteric Coated Tablet (DULCOLAX)DOSE = 10 mg Oral Daily, PRN moderate constipation 10-Jul-2021 08:48 Bisacodyl Enteric Coated is not required Cariprazine Capsule (VRAYLAR)DOSE = 1.5 mg Oral Daily 10-Jul-2021 08:48 Cariprazine is not required Heparin SubCutaneous DOSE = 5,000 unit(s) SubCutaneous Every 8 HoursNotes from Pharmacy: Note Concentration Prior to Administration 10-Jul-2021 08:48 Heparin SubCutaneous is not required Pantoprazole Enteric Coated Tablet (PROTONIX)DOSE = 40 mg Oral DailyNotes from Pharmacy: Substitution for Omeprazole 20 mg Oral Capsule Daily 10-Jul-2021 08:48 Pantoprazole is not required Sennosides Tablet (SENOKOT)DOSE = 1 tablet(s) Oral Daily 10-Jul-2021 08:48 Sennosides is not required Sertraline - PEDS Tablet (ZOLOFT)DOSE = 12.5 mg Oral DailyCa.5 mg/DOSE x 1 = 12.5 mg/Dose (Daily Total is 12.5 mg) 10-Jul-2021 08:48 Sertraline - PEDS is not required traMADol Tablet (ULTRAM)DOSE = 50 mg Oral Every 6 Hours, PRN Pain - Mod (4-6) 10-Jul-2021 08:48 traMADol is not required Home Medications Added During Discharge Reconciliation traMADol 50 mg oral tablet 1 tab(s) orally every 6 hours as needed for pain not controlled with tylenol an motrin, ICD10: G89.18 All Active Home Medications at time of Discharge Reconciliation: 10-Jul-2021 13:57 omeprazole 20 mg oral delayed release capsule 1 cap(s) orally once a day traMADol 50 mg oral tablet 1 tab(s) orally every 6 hours as needed for pain not controlled with tylenol an motrin, ICD10: G89.18 Vraylar 1.5 mg oral capsule 1 cap(s) orally once a day Zoloft 25 mg oral tablet 0.5 tab(s) orally once a day [facility] Order Reconciliation Page 1 Admission Reconciliation Document Reconciliation Type: Admission from OR requested on behalf of Juan Becerra (Resident) done by Juan Becerra (Resident)) Admission from OR - Reconciliation: 10-Jul-2021 08:48 by: Juan Becerra ( (Resident)) Home MedicationsEnteredLast Dose TakenReconciled with current Order Reconciliation Comment/ Additional Information omeprazole 20 mg oral delayed release capsule 1 cap(s) orally once a day [id number] PM Pantoprazole Enteric Coated Tablet (PROTONIX)DOSE = 40 mg Oral DailyNotes from Pharmacy: Substitution for Omeprazole 20 mg Oral Capsule Dailyomeprazole 20 mg oral delayed release capsule continued as the inpatient order Pantoprazole Vraylar 1.5 mg oral capsule 1 cap(s) orally once a [id number] PM Cariprazine Capsule (VRAYLAR)DOSE = 1.5 mg Oral DailyVraylar 1.5 mg oral capsule continued as the inpatient order Cariprazine Zoloft 25 mg oral tablet 0.5 tab(s) orally once a [id number] PM Sertraline - PEDS Tablet (ZOLOFT)DOSE = 12.5 mg Oral DailyCa.5 mg/DOSE x 1 = 12.5 mg/Dose (Daily Total is 12.5 mg)Zoloft 25 mg oral tablet continued as the inpatient order Sertraline - PEDS Additional Current Orders Acetaminophen Tablet (TYLENOL)DOSE = 975 mg Oral Every 8 Hours Bisacodyl Enteric Coated Enteric Coated Tablet (DULCOLAX)DOSE = 10 mg Oral Daily, PRN moderate constipation Call Physician For: BP, systolic Less Than 90 mmHg Greater Than 140 mmHg Call Physician For: hematocrit Less Than 25 Call Physician For: persistent oozing, drainage, swelling from incision sites Call Physician For: pulse Less Than 60 Greater Than 110 Call Physician For: respirations Less Than 10 Greater Than 22 Call Physician For: SpO2 Less Than 92% Call Physician For: temperature Greater Than 38.5 Call Physician For: urine output Less Than 120 ml over 4 hours Complete Blood Count ConditionalOrder Lab to Collect - STATLavender EDTA Compression Device, Sequential Culture, Blood ConditionalOrder Lab to Collect - STATAEROBIC (Mint or Blue capped) blood culture vial AND Anaerobic (Maroon capped) blood culture vials.-Separate sites for each set of cultures. Clean venipuncture site with alcohol then antiseptic prep. Clean top of culture bottle with Alcohol wipe. Send to microbiology lab immediately at Ambient temperature. Clinician Instructions: 1 of 2 Culture, Blood ConditionalOrder Lab to Collect - STATAEROBIC (Mint or Blue capped) blood culture vial AND Anaerobic (Maroon capped) blood culture vials.-Separate sites for each set of cultures. Clean venipuncture site with alcohol then antiseptic prep. Clean top of culture bottle with Alcohol wipe. Send to microbiology lab immediately at Ambient temperature. Clinician Instructions: 2 of 2 Diet Regular DVT Risk Assessment Complete DVT Risk Score: 6 Highest Risk DVT Risk Factors:Age 41-60 years (1), Current Major Surgery > 45 min (2), History of DVT/PE (3) Education Begin incision care and dressing change teaching. Electrocardiogram 12 Lead RoutineClinical Indications: ACS SymptomsNotify MD if performed fentaNYL Injectable (SUBLIMAZE)DOSE = 50 microgram(s) IntraVenous Push Every 5 Minutes, PRN Pain - Mod (4-6) (PACU) if unable to take oralClinician Notes: Rosalba-operative order ONLYMax total of 200 micrograms regardless of dose. Heparin SubCutaneous DOSE = 5,000 unit(s) SubCutaneous Every 8 Hours HYDROmorphone Injectable (DILAUDID)DOSE = 0.5 mg IntraVenous Push Every 5 Minutes, PRN Pain - Severe (7-10) (PACU)Clinician Notes: Rosalba-operative order ONLYMax total of 4 mg regardless of dose. Intake & Output Every 4 Hours Strict Lactate, Level ConditionalOrder Lab to Collect - STATGrey Sodium Fluoride-Draw without stasis and immediately send tube on ice to laboratory Metoclopramide Injectable (REGLAN)DOSE = 10 mg IntraVenous Push Once, PRN PONV, first lineClinician Notes: Rosalba-operative order ONLY oxyCODONE Immediate Release Tablet (OXYIR, ROXICODONE)DOSE = 10 mg Oral Every 4 Hours, PRN Pain - Severe (7-10) (PACU) when able to take oralClinician Notes: Rosalba-operative order ONLY oxyCODONE Immediate Release Tablet (OXYIR, ROXICODONE)DOSE = 5 mg Oral Every 4 Hours, PRN Pain - Mod (4-6) (PACU) when able to take OralClinician Notes: Rosalba-operative order ONLY Oxygen Nasal CannulaTitrate to Maintain SpO2 greater than: 92% Wean to humidified room air. Place Patient in Extended Stay/Outpatient Adult Observation Diagnosis, E04.1 Thyroid nodule , Attending Provider Edy Dominguez Pulse Oximetry Every 4 Hours Renal Function Panel ConditionalOrder Lab to Collect - STATPlasma/Serum Separator RN to Release Orders Release Criteria: On arrival to floor Sennosides Tablet (SENOKOT)DOSE = 1 tablet(s) Oral Daily traMADol Tablet (ULTRAM)DOSE = 50 mg Oral Every 6 Hours, PRN Pain - Mod (4-6) Up in Chair T, Routine, 4 Times a Day, and ambulat (more content not included)... [facility] PT/INRon 07-10-2021 PT Coag (PPP) [Time] 12.0 s Normal 10.1 - 13.3 [facility] Comment on above: Performed By: #### M G #### [address] [place] [address] PT, INR 1.0 Normal 0.9 - 1.1 [facility] Comment on above: Performed By: #### M G #### [address] [place] [address] Patient Profile - Adult v2on 07-10-2021 Patient Profile - Adult v2 Profile: Initial Info: How to be Addressedmichelle(1) Spoken Language PreferredEnglish (1) Source of Informationpatient Stated Reason for Admissionleft thyroidectomy Primary Contact Name and Numberheather [phone] Wants Family/Rep Notified of Admissionyes, primary contact Notify PCPnotify PCP Informed of Patient Visiting Rightsyes Arrived FromOR Was Admitted To in Past 90 Daysnone Patient Belongingsremains with patient Patient Belongings Remaining with Patientclothing; cell phone/electronics; purse/wallet; Purse, clothing, cell phone Medications Brought to Hospitalno General Health: Blood Avoidance/Restrictionsnone (1) Previous Transfusion Reactionno(1) Weight in kg152.9 kilogram(s) Weight in kcc456 pound(s) Weight Methodstated Scale Typestanding Height in cm185.4 centimeter(s) Height in feet6 feet Height in inches1 inch(es) Height Methodstated BMI (kg/m2)44.482 square meter RSP Based Care: How would you like to participate in your careKeep pain under control What is the number one concern for you during this hospitalizationn/a What is the most important thing we can do to support you during this hospitalizationn/a Is there anything we need to know to best care for baylee/a Substance: Smoking Statusnever smoker Alcohol Useoccasionally Drug Usedenies Drug 2 Usedenies Health Mgmt: Symptoms/Conditions Managed at [facility]; See problem list. 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 Barriers to Managing Healthnone Relationship/Environ: Living Environment Commentsdaughter is 16yo(2) Resource/Environmental Concernsnone Primary Source of Support/Comfortchild(fely) Lives Withadult child(fely) Living Arrangementshouse Services Anticipated at Transitionnone Anticipated Transition [place] Significant IndicatorsComplete Information Review: Allergies, Home Meds and Significant Events have been Reviewed and Verified with Patient/Familyyes ALLERGY, INTOLERANCE, ADVERSE EVENT: Allergies: Succinylcholine Chloride: Drug, Unknown (Severe), Active Electronic Signatures: Shelbie Benavides (ASST N MGR) (Signed 10-Jul-2021 13:00) Authored: Initial Info, General Health, RSP Based Care, Substance, Health Mgmt, Relationship/Environ, Additional Information Last Updated: 10-Jul-2021 13:00 by Shelbie Benavides (ASST N MGR) References: 1. Data Referenced From Patient Profile - Preop v3 10-Jul-2021 07:46 2. Data Referenced From Patient Profile - Preop v3 07-Jul-2021 11:02 [facility] Patient Profile - Preop v3on 07-10-2021 Patient Profile - Preop v3 Patient Profile - Preop: Initial Info: Patient DemographicsName: LAURO PINTO Date: 1975 Address: [address] [place] [address] Primary Phone [phone] How to be Addressedmichelle Spoken Language PreferredEnglish Source of Informationpatient Stated Reason for Admissionleft thyroidectomy Primary Contact Name and Numberheather [phone] Patient Belongingsnone Medications Brought to Hospitalno General Health: Weight Methodstated Height in feet6 feet Height in inches1 inch(es) Height in cm185.4 centimeter(s) Height Methodstated Patient or Family Member Reaction to Anesthesiano previous reaction Blood Avoidance/Restrictionsnone Previous Transfusion Reactionno Health Mgmt: Symptoms/Conditions Managed at [facility] Are You no (1) Are You Currently Breastfeedingno Barriers to Managing Healthnone Relationship/Environ: Lives Withadult child(fely) Living Arrangementshouse Resource/Environmental Concernsnone Anticipated Transition [place] Services Anticipated at Transitionnone Tobacco Use: Tobacco Useno Pre-op Checklist: Arrival [id number] Arrival Time06:45 Procedure Typeleft hemithyroidectomy NPOyes Last Food [id number] 18:00 Last Clear Fluid [id number] 06:20 ID Band On Patientpatient ID (name) Consent Signedyes H&P Completeyes Anesthesia Assessment Completedyes EKG Performedyes Chest X-Ray Performednot ordered Preop Antibioticsnot ordered COVID 19 Results in Last 7 dayscovid negative Type and Screen Resultedn/a HCG Urine TestComplete Chlorhexadine Bath Givennot applicable Nasal Antiseptic Appliednot applicable Soap and Water Bath the Night Before Surgeryyes Hair Washed with Shampooyes SCD's Appliedyes BRIA Hose Appliednot ordered Bowel Prepno Additional Information: Information Review: Allergies, Home Meds and Significant Events have been Reviewed and Verified with Patient/Familyyes Allergy, Intolerance, Adverse Event: Allergies: No Known Allergies: Active Electronic Signatures: Zainab Wright (STAFF N) (Signed 10-Jul-2021 08:04) Authored: Initial Info, General Health, Health Mgmt, Relationship/Environ, Tobacco Use, Pre-op Checklist, Additional Information Last Updated: 10-Jul-2021 08:04 by Zainab Wright (STAFF N) References: 1. Data Referenced From History and Physical - Surgical Update < 30 days 10-Jul-2021 07:14 [facility] Surgical Pathology Depar tmenton 07-10-2021 [facility] Surgical Pathology Department Name LAURO PINTO Pathologist: LILLI AMAYA ASA, MD, PhD Date of Procedure: 07/10/2021 Date Received: 07/10/2021 Date Reported 07/23/2021 Submitting Physician: EDY DOMINGUEZ MD Location: Other External # FINAL DIAGNOSIS A. 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 Within this cluster of nodules there are multiple foci of proliferations with nuclear atypia consistent with follicular variant papillary carcinoma; the largest of these measures 0.8 cm and therefore all are consistent with microcarcinomas. CANCER SUMMARY REPORT SPECIMEN Procedure: Left lobectomy with isthmusectomy (hemithyroidectomy) TUMOR Tumor Focality: Multifocal Tumor Characteristics Tumor Site: Left lobe Histologic Type: Papillary carcinoma, follicular variant, encapsulated / well demarcated, with tumor capsular invasion Tumor Size: Greatest Dimension (Centimeters): 0.8 cm Extrathyroidal Extension: Not identified Angioinvasion (vascular invasion): Not identified Lymphatic Invasion: Not identified Perineural Invasion: Not identified Margins: Uninvolved by carcinoma LYMPH NODES Regional Lymph Nodes: No lymph nodes submitted or found PATHOLOGIC STAGE CLASSIFICATION (pTNM, AJCC 8th Edition) TNM Descriptors: m (multiple primary tumors) Primary Tumor (pT): pT1a Regional Lymph Nodes (pN): pNX ADDITIONAL FINDINGS Additional Findings: Adenomatoid nodule(s) or nodular follicular disease ADDITIONAL TESTING CLEARANCE COORDINATOR BLOCKS: Normal Block: A20 Tumor Block: A8, A5, A14 Electronically Signed Out By LILLI AMAYA ASA, MD, PhD/SLA By the signature on this report, the individual or group listed as making the Final Interpretation/Diagnosis certifies that they have reviewed this case. Clinical History: NONTOXIC GOITER a) stitch at superior pole Specimens Submitted As: A: LEFT HEMITHYROID Gross Description: Received in formalin, labeled with the patient's name and hospital number, is an oriented hemithyroidectomy that weighs 57.14 gm. The lobe measures 5.6 x 3.8 x 3.2 cm, and the isthmus measures 4.7 x 3.2 x 1.4 cm. The surface has fibrous adhesions and is inked as follows: anterior blue, posterior black, and isthmic resection margin yellow. There are no surface nodules. On section, there is a nodule replacing most of the left thyroid lobe and a portion of the isthmus. The nodule is well delineated and has a heterogeneous, gelatinous cut surface. [employer] sections of the specimen are submitted in 20 cassettes. A 1 superior lobe, resources representative perpendicular sections 2-15 superior to inferior, resources representative sections 16 inferior lobe, resources representative perpendicular sections 17 isthmus resection margin, en face 18-20 resources representative sections of isthmus, from margin to lobe DLS 07/14/2021 [facility] Department of Pathology [address] [place] [address] Comment on above: Performed By: #### U HCS #### [facility] Surgical Pathology Department [address] [facility] [address] Urine Teston 07-10 HCG ( test) Ql (U) Negative Negative [facility]tolaryngol [facility] Work Phone: APTTon 07-07-2021 APTT Canceled Normal [facility] Comment on above: Order Comment: TEST APTT WAS CANCELLED, 07/07/2021 12:20 SPECIMEN CLOTTED.PLEASE RESUBMIT. Result Comment: THE APTT IS NO LONGER USED FOR MONITORING UNFRACTIONATED HEPARIN THERAPY. FOR MONITORING HEPARIN THERAPY, USE THE HEPARIN ASSAY. Performed By: #### A PTT #### [address] [address] Activated Partial Thrombopla stin Timeon 07-07-2021 aPTT Coag (PPP) [Time] Canceled [facility]-Otolaryngol [facility] Work Phone: Comment on above: THE APTT IS NO LONGE R USED FOR MONITORING UNFRACTIONATED HEPARIN THERAPY. FOR MONITORING HEPARIN THERAPY, USE THE HEPARIN ASSAY. CBC AND DIFFERENTIALon 07-07 % AUTOMATED IMMATURE GRAN 0.3 % Normal 0.0 - 0.9 [facility] Comment on above: Result Comment: Lizeth ture Granulocyte Count (IG) includes promyelocytes, myelocytes and metamyelocytes but does not include bands. Percent differential counts (%) should be interpreted in the context of the absolute cell counts (cells/L). Performed By: #### P TINR #### [address] [address] Basophils (Bld) [#/Vol] 0.03 10*3/uL Normal 0.00 - 0.10 [facility] Comment on above: Performed By: #### P TINR #### [address] [address] Basophils/100 WBC (Bld) 0.4 % Normal 0.0 - 2.0 [facility] Comment on above: Performed By: #### P TINR #### [address] [address] Eosinophils (Bld) [#/Vol] 0.10 10*3/uL Normal 0.00 - 0.70 [facility] Comment on above: Performed By: #### P TINR #### [address] [address] Eosinophils/100 WBC (Bld) 1.5 % Normal 0.0 - 6.0 [facility] Comment on above: Performed By: #### P TINR #### [address] [address] Erythrocyte distribution width (RBC) [Ratio] 13.9 % Normal 11.5 - 14.5 [facility] Comment on above: Performed By: #### P TINR #### [address] [address] Hematocrit (Bld) [Volume fraction] 39.1 % Normal 36.0 - 46.0 [facility] Comment on above: Performed By: #### P TINR #### [address] [address] Hemoglobin (Bld) [Mass/Vol] 11.7 g/dL Low 12.0 - 16.0 [facility] Comment on above: Performed By: #### P TINR #### [address] [address] Lymphocytes (Bld) [#/Vol] 1.82 10*3/uL Normal 1.20 - 4.80 [facility] Comment on above: Performed By: #### P TINR #### [address] [address] Lymphocytes/100 WBC (Bld) 26.6 % Normal 13.0 - 44.0 [facility] Comment on above: Performed By: #### P TINR #### [address] [address] MCHC (RBC) [Mass/Vol] 29.9 g/dL Low 32.0 - 36.0 [facility] Comment on above: Performed By: #### P TINR #### [address] [address] MCV (RBC) [Entitic vol] 89 fL Normal 80 - 100 [facility] Comment on above: Performed By: #### P TINR #### [address] [address] Monocytes (Bld) [#/Vol] 0.40 10*3/uL Normal 0.10 - 1.00 [facility] Comment on above: Performed By: #### P TINR #### [address] [address] Monocytes/100 WBC (Bld) 5.8 % Normal 2.0 - 10.0 [facility] Comment on above: Performed By: #### P TINR #### [address] [address] Neutrophils (Bld) [#/Vol] 4.47 10*3/uL Normal 1.20 - 7.70 [facility] Comment on above: Performed By: #### P TINR #### [address] [address] Neutrophils/100 WBC (Bld) 65.4 % Normal 40.0 - 80.0 [facility] Comment on above: Performed By: #### P TINR #### [address] [address] NUCLEATED RBC 0.0 /100 WBC Normal 0.0 - 0.0 [facility] Comment on above: Performed By: #### P TINR #### [address] [address] Platelets (Bld) [#/Vol] 243 10*3/uL Normal 150 - 450 [facility] Comment on above: Performed By: #### P TINR #### [address] [address] RBC 4.40 x10E12/L Normal 4.00 - 5.20 [facility] Comment on above: Performed By: #### P TINR #### [address] [address] WBC (Bld) [#/Vol] 6.8 10*3/uL Normal 4.4 - 11.3 [facility] Comment on above: Performed By: #### P TINR #### [address] [address] COMPREHENSIVE PANELon 2020 Albumin [Mass/Vol] 4.0 g/dL Normal 3.4 - 5.0 [facility] Comment on above: Performed By: #### P TINR #### [address] [address] ALP [Catalytic activity/Vol] 49 U/L Normal 33 - 110 [facility] Comment on above: Performed By: #### P TINR #### [address] [address] ALT [Catalytic activity/Vol] 5 U/L Low 7 - 45 [facility] Comment on above: Result Comment: Nano ents treated with Sulfasalazine may generate falsely decreased results for ALT. Performed By: #### P TINR #### [address] [address] Anion gap [Moles/Vol] 11 mmol/L Normal 10 - 20 [facility] Comment on above: Performed By: #### P TINR #### [address] [address] AST [Catalytic activity/Vol] 13 U/L Normal 9 - 39 [facility] Comment on above: Performed By: #### P TINR #### [address] [address] Bilirubin [Mass/Vol] 0.5 mg/dL Normal 0.0 - 1.2 [facility] Comment on above: Performed By: #### P TINR #### [address] [address] Calcium [Mass/Vol] 8.8 mg/dL Normal 8.6 - 10.3 [facility] Comment on above: Performed By: #### P TINR #### [address] [address] Chloride [Moles/Vol] 106 mmol/L Normal 98 - 107 [facility] Comment on above: Performed By: #### P TINR #### [address] [address] Creatinine [Mass/Vol] 0.69 mg/dL Normal 0.50 - 1.05 [facility] Comment on above: Performed By: #### P TINR #### [address] [address] GFR- AM. >60 Normal >60 [facility] Comment on above: Result Comment: CALC ULATIONS OF ESTIMATED GFR ARE PERFORMED USING THE MDRD STUDY EQUATION FOR THE IDMS-TRACEABLE CREATININE METHODS. CLIN CHEM 2007;53:766-72 Performed By: #### P TINR #### [address] [address] GFR-NON AM. >60 Normal >60 [facility] Comment on above: Performed By: #### P TINR #### [address] [address] Glucose [Mass/Vol] 101 mg/dL High 74 - 99 [facility] Comment on above: Performed By: #### P TINR #### [address] [address] HCO3 (Bld) [Moles/Vol] 24 mmol/L Normal 21 - 32 [facility] Comment on above: Performed By: #### P TINR #### [address] [address] Potassium [Moles/Vol] 4.0 mmol/L Normal 3.5 - 5.3 [facility] Comment on above: Performed By: #### P TINR #### [address] [address] Protein [Mass/Vol] 7.1 g/dL Normal 6.4 - 8.2 [facility] Comment on above: Performed By: #### P TINR #### [address] [address] Sodium [Moles/Vol] 137 mmol/L Normal 136 - 145 [facility] Comment on above: Performed By: #### P TINR #### [facility] [address] [place] [address] Urea nitrogen [Mass/Vol] 16 mg/dL Normal 6 - 23 [facility] Comment on above: Performed By: #### P TINR #### [facility] [address] [place] [address] CORONAVIRUS 2019, SCREEN ASY MPTOMATICon 07-07-2021 SARS-CoV-2 (COVID-19) RNA APURVA+probe Ql (Unsp spec) Not detected Normal Not Detected [facility] Comment on above: Result Comment: . This assay is designed to detect the N, ORF1ab and/or S genes of SARS-CoV-2 via nucleic acid amplification. A Negative (NOT DETECTED) result does not preclude 2019-nCoV infection since the adequacy of sample collection and/or low viral burden may result in presence of viral nucleic acids below the clinical sensitivity of this test method. Negative (NOT DETECTED) result should not be used as the sole basis for treatment or other patient management decisions. Rather negative results should be combined with clinical observations, patient history, and epidemiological information to make patient management decisions. Fact sheet for providers: https://www.fda.gov/media/496605/download Fact sheet for patients: https://www.fda.gov/media/709014/download This test has received FDA Emergency Use Authorization (EUA) and has been verified by [facility] ([facility]). This test is only authorized for the duration of time that circumstances exist to justify the authorization of the emergency use of in vitro diagnostic tests for the detection of SARS-CoV-2 virus and/or diagnosis of COVID-19 infection under section 564(b)(1) of the Act, 21 U.S.C. 360bbb-3(b)(1), unless the authorization is terminated or revoked sooner. [facility] is certified under CLIA-88 as qualified to perform high complexity testing. Testing is performed in the [facility] laboratories located at [address] [place] [address]. Performed By: #### C OVSC #### [facility] [id number] [place] [id number] Lab Specimen Source Nasal, Nasopharyngeal Normal [facility] Comment on above: Performed By: #### C OVSC #### [facility] [address] [place] [address] Complete Blood Count + Diffe eveline 07-07-2021 Basophils/100 WBC (Bld) 0.4 % 0.0 - 2.0 [facility] Work Phone: Erythrocyte distribution width (RBC) [Ratio] 13.9 % See Below [facility] Work Phone: Comment on above: Reference Range: 11. 5 - 14.5 Hematocrit (Bld) [Volume fraction] 39.1 % See Below [facility] Work Phone: Comment on above: Reference Range: 36. 0 - 46.0 Hemoglobin (Bld) [Mass/Vol] 11.7 g/dL below low threshold See Below [facility] Work Phone: Comment on above: Reference Range: 12. 0 - 16.0 Lymphocytes/100 WBC (Bld) 26.6 % See Below [facility] Work Phone: Comment on above: Reference Range: 13. 0 - 44.0 MCHC (RBC) [Mass/Vol] 29.9 g/dL below low threshold See Below [facility] Work Phone: Comment on above: Reference Range: 32. 0 - 36.0 MCV (RBC) [Entitic vol] 89 fL 80 - 100 [facility] Work Phone: Monocytes/100 WBC (Bld) 5.8 % 2.0 - 10.0 [facility] Work Phone: Neutrophils/100 WBC (Bld) 65.4 % See Below [facility] Work Phone: Comment on above: Reference Range: 40. 0 - 80.0 Platelets (Bld) [#/Vol] 243 10*3/uL 150 - 450 [facility]aryngol [facility] Work Phone: RBC (Bld) [#/Vol] 4.40 {x10E12/L} See Below [facility] Work Phone: Comment on above: Reference Range: 4.0 0 - 5.20 WBC (Bld) [#/Vol] 6.8 10*3/uL 4.4 - 11.3 MG-Seferino laryngol [employer] Work Phone: Complete Blood Count + Differential 0.03 {x10E9/L} See Below MG-Otolaryngol [employer] Work Phone: Comment on above: Reference Range: 0.0 0 - 0.10 Complete Blood Count + Differential 0.10 {x10E9/L} See Below MG-Otolaryngol [facility] Work Phone: Comment on above: Reference Range: 0.0 0 - 0.70 Complete Blood Count + Differential 0.40 {x10E9/L} See Below [facility]tolaryngol [employer] Work Phone: Comment on above: Reference Range: 0.1 0 - 1.00 Complete Blood Count + Differential 1.82 {x10E9/L} See Below MG[facility]Otolaryngol [employer] Work Phone: Comment on above: Reference Range: 1.2 0 - 4.80 Complete Blood Count + Differential 4.47 {x10E9/L} See Below MG-Otolaryngol [facility] Work Phone: Comment on above: Reference Range: 1.2 0 - 7.70 Complete Blood Count + Differential 1.5 % 0.0 - 6.0 [facility]tolaryngol [employer] Work Phone: Complete Blood Count + Differential 0.3 % 0.0 - 0.9 [facility] Work Phone: Comment on above: Immature Granulocyte Count (IG) includes promyelocytes, myelocytes and metamyelocytes but does not include bands. Percent differential counts (%) should be interpreted in the context of the absolute cell counts (cells/L). Complete Blood Count + Differential 0.0 {/100_WBC} 0.0 - 0.0 [facility] Work Phone: Coronavirus 2019 RNA by PCR, Screening Asymptomticon 07-07-2021 Coronavirus 2019 RNA by PCR, Screening Asymptomtic Not detected Normal See Below [facility] Work Phone: Comment on above: SOURCE: Nasal, Nasop haryngealReference Range: Not Detected.This assay is designed to detect the N, ORF1ab and/or S genes of SARS-CoV-2 via nucleic acid amplification. A Negative (NOT DETECTED) result does not preclude 2019-nCoV infection since the adequacy of sample collection and/or low viral burden may result in presence of viral nucleic acids below the clinical sensitivity of this test method. Negative (NOT DETECTED) result should not be used as the sole basis for treatment or other patient management decisions. Rather negative results should be combined with clinical observations, patient history, and epidemiological information to make patient management decisions.Fact sheet for providers: https://www.fda.gov/media/907877/downloadFact sheet for patients: https://www.fda.gov/media/191403/downloadThis test has received FDA Emergency Use Authorization (EUA) and has been verified by [facility] ([facility]). This test is only authorized for the duration of time that circumstances exist to justify the authorization of the emergency use of in vitro diagnostic tests for the detection of SARS-CoV-2 virus and/or diagnosis of COVID-19 infection under section 564(b)(1) of the Act, 21 U.S.C. 360bbb-3(b)(1), unless the authorization is terminated or revoked sooner. [facility] is certified under CLIA-88 as qualified to perform high complexity testing. Testing is performed in the [facility] laboratories located at [address] [place] [address]. Covid 19 Resultson 1 SARS-CoV-2 (COVID-19) RNA APURVA+probe Ql (Unsp spec) NEGATIVE COVID-19 Test Coronaviruses are common world-wide and are the cause of many common colds. SARS-COV2 is a new coronavirus that began circulating worldwide in 2019 so we are calling it COVID-19. It has been estimated that four out of five patients with COVID-19 will recover at home without the need for medical attention. Symptoms of COVID-19 may include cough, fever, shortness of breath, loss of taste or smell and other flu-like symptoms including chills, sore muscles, sore throat, and headache. Severe illness is more common in older people and people with other health problems such as high blood pressure, obesity, and immune system problems. If the test is positive, you have COVID-19. You will be contacted by the ordering physicians office and instructed to remain on home isolation, in accordance with CDC guidelines. You may also be contacted by the [place] Department of Health to see if any of your close contacts may have been exposed to the virus and need to quarantine. If the test is negative, you likely do not have COVID-19 at this time, but you still may have a different illness that can spread to other people (like Influenza, or the Flu) and could still be at risk for getting COVID-19. We recommend that you stay away from other people to limit the spread of illness until your symptoms are improving and you are fever-free for 24 hours without the use of fever lowering medications such as acetaminophen or ibuprofen. No test is 100% accurate so if you are still concerned you may have COVID-19, talk to your doctor about the need to continue to stay away from others. Medicines Unless your provider told you not to use the following: Acetaminophen (Tylenol and others) is generally safe. Anti-inflammatory medications, such as Ibuprofen (Advil or Motrin) or Naproxen (Aleve) can also be used. Kdqp-lyx-yuovnui cough and cold medicines can be used according to the instructions on the package. Some uvut-hft-cftjhug medicines also contain acetaminophen. Make sure you are not taking more than your recommended dose. For those not hospitalized, there is no specific treatment available for this illness. Antibiotics do not treat Coronaviruses. Follow-Up Follow up with your doctor by scheduling a virtual visit or consider follow-up at one of our urgent care fever clinics. If you are having difficulty breathing, or are very weak and having difficulty standing, this is a medical emergency. Call 911 or have someone take you to the nearest emergency room immediately. If possible, wear a facemask. Additional guidance from the CDC for patients who tested POSITIVE for COVID-19 How to isolate: Isolate yourself in a specific room at home and limit your contact with others. Use a separate bathroom from other members of the household, when possible. Leave home only to get essential medical care. Do not go to work, school or public areas. Avoid using public transportation, ride-sharing, or taxis. Restrict contact with pets and other animals. If you must care for your pet or be around animals while you are sick, wash your hands before and after your interaction and wear a facemask. Make sure that shared spaces in the home have good airflow, such as by an air conditioner or an opened window, weather permitting. Personal Hygiene Procedures: Wear a face mask when in the same room as other people or pets. If a face mask interferes with your breathing, others should wear a mask when sharing space with you. Frequent hand-washing: wash your hands with soap and water for at least 20 seconds. If soap and water are not available, use alcohol-based hand long term care pharmacist. Avoid touching your eyes, nose, and mouth with unwashed hands. Household Hygiene Procedures: Avoid sharing personal household items such as dishes, glassware, cups, eating utensils, towels or bedding with other people or pets in your home. After use, these items should be washed with soap and hot water. Disinfect all high-touch surfaces every day with antibacterial cleaning solutions such as Lysol wipes, bleach, cleansers, etc. High-touch surfaces include tabletops, doorknobs, bathroom fixtures, toilets, phones, keyboards, tablets and bedside tables. Immediately clean any surfaces that may have blood, poop or body fluids on them, using antibacterial cleaning solutions such as Lysol wipes, bleach, cleansers, etc. If clothing or bedding come into contact with blood, poop or body fluids, they should be washed immediately. Follow the directions on the laundry detergent and clothing labels but hot water is recommended when possible. Stopping home isolation precautions: If possible, consult your doctor before stopping home isolation precautions. According to the CDC, you can discontinue home isolation precautions when you have met both of these criteria: Your fever and respiratory symptoms have been gone for 24 carson (more content not included)... 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 Outside images were requested and reviewed. 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 Once her outside records were available for review we went over everything in detail. We discussed some of the Limitations of FNA with larger nodules. Considering the tracheal deviation and large size of the nodule we discussed surgical options which could include hemithyroidectomy or total thyroidectomy. We discussed the pros and cons of each. At this time she wants to proceed with hemithyroidectomy. We discussed risks of bleeding, infection, numbness, damage to recurrent laryngeal nerve, potential need for completion thyroidectomy, potential shoulder thyroid replacement. All questions answered and consent was obtained Chief Complaint Goiter, thyroid nodule History of Present [id number] female referred by Dr. Christian for evaluation of goiter and thyroid nodule. Patient had incidental finding of a left-sided thyroid nodule on a CT scan. I do not have the CT scan for review. Based on outside documentation there is substernal extension with mild tracheal compression. Patient denies any significant compressive symptoms. She also had a thyroid ultrasound which reports a 5-1/2 cm left-sided nodule. I do not have that report for review. This was biopsied and returned as benign. She denies any family history of thyroid cancer. Her TSH is reportedly normal She reports history of depression and reflux. She has had multiple prior surgeries including appendix, tonsillectomy, multiple foot surgeries, hernia repair, and back surgeries. She denies any allergies. She reports family history of diabetes and hypertension. She denies history of smoking. She reports social alcohol use. She is on disability She presents today to discuss surgery scheduled for later this week. She saw preadmission testing this morning. She has not developed any symptoms Review of Systems All other systems have been reviewed and are negative for complaint. Active Problems Thyroid nodule (241.0) (E04.1) Allergies No Known Drug Allergies Recorded By: Alayna Vazquez; 04/07/2021 2:26:54 PM Current Meds Medication NameInstruction Omeprazole TBEC Sertraline HCl CONC Vraylar 1.5 MG Oral CapsuleTAKE 1 CAPSULE BY MOUTH ONCE DAILY Physical Exam Well appearing individual in no acute distress. No stertor and no Stridor. Good voice. No LAD. Skin is soft and supple. Oral cavity and oropharynx are without lesions. No thyromegaly. Anterior rhinoscopy reveals normal nasal mucosa bilaterally. EAC normal AU with RITIKA. Cranial Nerves grossly intact. Procedure Due to an excessive gag reflex after verbal consent a flexible laryngoscopy was performed. No lesions in the nasal cavity, nasopharynx, oropharynx, hypopharynx or larynx were seen. Normal TVC mobility was appreciated. 'Scores and Scales' Signatures Electronically signed by : Edy Dominguez MD; Jul 07 2021 12:41PM EST (Author) Normal [facility] - Chemistry and C hemistry - challengeon 07-07-2021 Albumin BCP dye [Mass/Vol] 4.0 g/dL 3.4 - 5.0 [facility] Work Phone: ALP [Catalytic activity/Vol] 49 U/L 33 - 110 [facility] Work Phone: ALT With P-5'-P [Catalytic activity/Vol] 5 U/L below low threshold 7 - 45 [facility] Work Phone: Comment on above: Patients treated wit h Sulfasalazine may generate falsely decreased results for ALT. Anion gap [Moles/Vol] 11 mmol/L 10 - 20 [facility] Work Phone: AST With P-5'-P [Catalytic activity/Vol] 13 U/L 9 - 39 [facility] Work Phone: Bilirubin [Mass/Vol] 0.5 mg/dL 0.0 - 1.2 [facility] Work Phone: Calcium [Mass/Vol] 8.8 mg/dL 8.6 - 10.3 MG-Heron laryngol [facility] Work Phone: Chloride [Moles/Vol] 106 mmol/L 98 - 107 [facility] Work Phone: CO2 [Moles/Vol] 24 mmol/L 21 - 32 [facility]Otolar yngol [facility] Work Phone: Creatinine [Mass/Vol] 0.69 mg/dL See Below [facility] Work Phone: Comment on above: Reference Range: 0.5 0 - 1.05 Glucose [Mass/Vol] 101 mg/dL above high threshold 74 - 99 [facility] Work Phone: Potassium [Moles/Vol] 4.0 mmol/L 3.5 - 5.3 [facility] Work Phone: Protein [Mass/Vol] 7.1 g/dL 6.4 - 8.2 [facility] Work Phone: Sodium [Moles/Vol] 137 mmol/L 136 - 145 [facility] Work Phone: Urea nitrogen [Mass/Vol] 16 mg/dL 6 - 23 [facility] Work Phone: Laboratory - Coagulationon 1 09-06-2020 INR Coag (PPP) [Relative time] Canceled [facility] Work Phone: PT Coag (PPP) [Time] Canceled [facility] Work Phone: No Panel Informationon 07-07 >60 >60 [facility] Work Phone: Comment on above: CALCULATIONS OF ROSALIA MATED GFR ARE PERFORMED USING THE MDRD STUDY EQUATION FOR THE IDMS-TRACEABLE CREATININE METHODS. CLIN CHEM 2007;53:766-72 [email or web address] 1:[email or web address]?R etrieveTestByDateTime?Nano wulMG=[id number]&Date=09-16&Time=10%3a44%3a00%3a 00&TestType=ECG&Site=12&Ou tputType=PDF&Ext=PDF [facility] Work Phone: Normal sinus rhythm [facility] Work Phone: Abnormal [facility] Work Phone: 438 1 [facility] Work Phone: 413 1 [facility] Work Phone: 198 1 [facility] Work Phone: 147 1 [facility] Work Phone: 218 1 [facility] Work Phone: 14 1 [facility] Work Phone: 18 1 [facility] Work Phone: 9 1 [facility] Work Phone: 59 1 [facility] Work Phone: 464 1 [facility] Work Phone: 390 1 [facility] Work Phone: 76 1 [facility] Work Phone: 142 1 [facility] Work Phone: 85 1 [facility] Work Phone: PT/INRon 07-07-2021 PROTHROMBIN TIME Canceled Normal [facility] Comment on above: Order Comment: TEST PT/INR WAS CANCELLED, 07/07/2021 12:20 SPECIMEN CLOTTED.PLEASE RESUBMITDUPLICATE ORDER. Performed By: #### P TINR #### [address] [place] [address] PT, INR Canceled Normal [facility] Comment on above: Order Comment: TEST PT/INR WAS CANCELLED, 07/07/2021 12:20 SPECIMEN CLOTTED.PLEASE RESUBMITDUPLICATE ORDER. 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 Outside images were requested and reviewed. 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 Once her outside records were available for review we went over everything in detail. She does have substernal extension on the left however this can likely be accessed without sternotomy. The ultrasound report backwards in terms of the size of the nodule as it reports a larger nodule on the right-hand side. Biopsy was labeled as left benign follicular nodule. We discussed some of the Limitations of FNA with larger nodules. Considering the tracheal deviation and large size of the nodule we discussed surgical options which could include hemithyroidectomy or total thyroidectomy. We discussed the pros and cons of each. At this time she wants to proceed with hemithyroidectomy. We will arrange for an in person visit and preadmission testing Chief Complaint Goiter, thyroid nodule History of Present Yaxjrsl88-shti-nof female referred by Dr. Christian for evaluation of goiter and thyroid nodule. Patient had incidental finding of a left-sided thyroid nodule on a CT scan. I do not have the CT scan for review. Based on outside documentation there is substernal extension with mild tracheal compression. Patient denies any significant compressive symptoms. She also had a thyroid ultrasound which reports a 5-1/2 cm left-sided nodule. I do not have that report for review. This was biopsied and returned as benign. She denies any family history of thyroid cancer. Her TSH is reportedly normal She reports history of depression and reflux. She has had multiple prior surgeries including appendix, tonsillectomy, multiple foot surgeries, hernia repair, and back surgeries. She denies any allergies. She reports family history of diabetes and hypertension. She denies history of smoking. She reports social alcohol use. She is on disability 06/12: Virtual visit to review recent ultrasound. The nodules have been essentially stable in size. She has not noticed any change in symptoms Review of Systems All other systems have been reviewed and are negative for complaint. Active Problems Thyroid nodule (241.0) (E04.1) Allergies No Known Drug Allergies Recorded By: Alayna Vazquez; 04/07/2021 2:26:54 PM Current Meds Medication NameInstruction Omeprazole TBEC Sertraline HCl CONC Vraylar 1.5 MG Oral CapsuleTAKE 1 CAPSULE BY MOUTH ONCE DAILY 'Scores and Scales' Signatures Electronically signed by : Edy Dominguez MD; Jun 13 2021 4:51AM EST (Author) Normal [facility] No Panel Informationon 04-28 [facility] Work Phone: [facility] Surgical Pathology Depar tmenton 04-28-2021 [facility] Surgical Pathology Department Name LAURO PINTO Pathologist: MIGUEL GAMBLE MD Date of Procedure: 04/28/2021 Date Received: 04/28/2021 Date Reported 04/29/2021 Submitting Physician: EDY DOMINGUEZ MD Location: [facility] Other External # FINAL DIAGNOSIS A. [facility] [id number] (11/14/2020): LEFT THYROID FINE NEEDLE ASPIRATE: --BENIGN FOLLICULAR NODULAR (NODULAR HYPERPLASIA). Electronically Signed Out By MIGUEL GAMBLE MD/BEBA By the signature on this report, the individual or group listed as making the Final Interpretation/Diagnosis certifies that they have reviewed this case. Clinical History: FNA thyroid nodule Specimens Submitted As: A: [facility] [id number] (11/14/2020) Slide/Block Description Received from [facility], [address] [place] [id number], are thirteen (13) slides labeled [id number] Keep Slides: N Slides Returned: N Personal Consult: N Normal [facility] Comment on above: Performed By: #### U [facility] #### [facility] Surgical Pathology Department [address] [facility] [address] Initial Visit (Otolaryngolog y)on 04-07-2021 Initial Visit (Otolaryngology) Diagnoses/Problems Thyroid nodule (241.0) (E04.1) Provider Impressions 46 year old female 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 Outside images were requested and reviewed. 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 Once her outside records were available for review we went over everything in detail. She does have substernal extension on the left however this can likely be accessed without sternotomy. The ultrasound report backwards in terms of the size of the nodule as it reports a larger nodule on the right-hand side. Biopsy was labeled as left benign follicular nodule. We discussed some of the Limitations of FNA with larger nodules. Considering the tracheal deviation and large size of the nodule we discussed surgical options which could include hemithyroidectomy or total thyroidectomy. We discussed the pros and cons of each. She would like to think about her options. She would also like to see at least one follow-up ultrasound to see if there has been any significant change. She will likely follow-up after ultrasound to review Chief Complaint Goiter, thyroid nodule History of Present Sfkukto32-vqgg-coc female referred by Dr. Christian for evaluation of goiter and thyroid nodule. Patient had incidental finding of a left-sided thyroid nodule on a CT scan. I do not have the CT scan for review. Based on outside documentation there is substernal extension with mild tracheal compression. Patient denies any significant compressive symptoms. She also had a thyroid ultrasound which reports a 5-1/2 cm left-sided nodule. I do not have that report for review. This was biopsied and returned as benign. She denies any family history of thyroid cancer. Her TSH is reportedly normal She reports history of depression and reflux. She has had multiple prior surgeries including appendix, tonsillectomy, multiple foot surgeries, hernia repair, and back surgeries. She denies any allergies. She reports family history of diabetes and hypertension. She denies history of smoking. She reports social alcohol use. She is on disability Review of Systems All other systems have been reviewed and are negative for complaint. Allergies No Known Drug Allergies Recorded By: Alayna Vazquez; 04/07/2021 2:26:54 PM Current Meds Medication NameInstruction Omeprazole TBEC Sertraline HCl CONC Vraylar 1.5 MG Oral CapsuleTAKE 1 CAPSULE BY MOUTH ONCE DAILY Vitals Vital Signs Recorded: [id number] 02:27PM Rhcoqtiehsb52.2 F Mjzxrrlp775 Xtynxdezy05 Height6 ft 1 in Tfxsgn540 lb BMI Ejurxvrhta20.33 kg/m2 BSA Calculated2.68 Tobacco Useb) No Fall Screeninga) No falls within the last year Pain Scale0 Physical Exam CONSTITUTIONAL: Vitals -deferred due to Covid precautions, well developed, well nourished. VOICE: Normal RESPIRATION: Breathing comfortably, no stridor. CV: No clubbing/cyanosis/edema in hands. EYES: EOM Intact, sclera normal. NEURO: Alert and oriented times 3, Cranial nerves II-XII intact and symmetric bilaterally. HEAD AND FACE: Symmetric facial features, no masses or lesions, sinuses nontender to palpation. SALIVARY GLANDS: Parotid and submandibular glands normal bilaterally. EARS: Normal external ears, external auditory canals, and TMs to otoscopy, normal hearing to whispered voice. NOSE: External nose midline, anterior rhinoscopy is normal with limited visualization to the anterior aspect of the interior turbinates. No lesions noted. ORAL CAVITY/OROPHARYNX/LIPS: Normal mucous membranes, normal floor of mouth/tongue/OP, no masses or lesions are noted. PHARYNGEAL UMANZOR: No masses noted. Mucosa appears clean and moist NECK/LYMPH: No LAD, palpable left-sided goiter. Trachea palpably midline SKIN: Neck skin is without scar or injury PSYCH: Alert and oriented with appropriate mood and affect 'Scores and Scales' Signatures Electronically signed by : Edy Dominguez MD; May 04 2021 2:13PM EST (Author) Normal [employer] Tobacco Screening.on Fall risk assessment a) No falls within the last year [facility] Work Phone: Tobacco use status CPHS b) No [facility] Work Phone: CTA CHEST WO W CONon 020 CTA CHEST WO W CON EXAMINATION: CTA MITZI ST WO W CON HISTORY: SHORTNESS OF BREATH COMPARISON: None. TECHNIQUE: CT angiography of the pulmonary arteries following the administration of 100 mL of Omnipaque 350 intravenous contrast. Coronal and sagittal MIP (maximum intensity projection) images were performed. Dose reduction techniques were achieved by using automated exposure control and/or adjustment of mA and/or kV according to patient size and/or use of iterative reconstruction technique. FINDINGS: This is a limited examination due to suboptimal contrast opacification of pulmonary arteries. There is no definite CT evidence for central pulmonary arterial embolism. The pulmonary arteries are normal in caliber. The heart size is within normal limits. There is no evidence for pericardial effusion. There is no evidence for pleural effusion, pneumothorax or significant pleural thickening. Small hiatal hernia is seen. No significant enlarged hilar, mediastinal or axillary adenopathy is seen. The lungs appear clear. No focal consolidation is seen. Bilateral thyroid lobes are partially visualized. The left thyroid lobe appears enlarged and heterogeneous, and measures at least 5.3 x 3.7 cm (CC x ML) in its visualized portion, and results in mild tracheal deviation to the right. No significant tracheal narrowing is seen. At least 1 cm retrosternal extension of the left thyroid lobe is seen. IMPRESSION: Limited examination due to suboptimal contrast opacification of the pulmonary arteries. There is no CT evidence for central pulmonary embolism. No focal infiltrate or other acute pulmonary process is seen. Enlarged left thyroid lobe measuring at least 5.3 x 3.7 cm, with mild tracheal deviation to the right. Small hiatal hernia. Electronically authenticated by: AMBREEN ZENDEJAS Date: 2020-08-28 22:10 Normal [facility] CBC AUTO DIFFon 08-28-2020 Basophils (Bld) [#/Vol] 0.0 103/ul Normal 0.0-0.1 [facility] Comment on above: Performed By: #### C BC #### [facility] [address] [place], [place] [id number] Aminata Lotus Basophils/100 WBC (Bld) 0.3 % Normal 0.2-2.0 [facility] Comment on above: Performed By: #### C BC #### [facility] [address] [place] [address] Aminata Lotus Eosinophils (Bld) [#/Vol] 0.0 103/ul Normal 0.0-0.7 [facility] Comment on above: Performed By: #### C BC #### [facility] [address] [place], [place] [id number] Aminata Lotus Eosinophils/100 WBC (Bld) 0.2 % Critically low 0.9-7.0 [facility] Comment on above: Performed By: #### C BC #### [facility] [address] [place], [place] [id number] Aminata Lotus Erythrocyte distribution width (RBC) [Ratio] 13.6 % Normal 11.0-15.0 [facility] Comment on above: Performed By: #### C BC #### [facility] [address] [place], [place] [id number] Aminata Lotus Hematocrit (Bld) [Volume fraction] 39.9 % Normal 36.0-48.0 [facility] Comment on above: Performed By: #### C BC #### [facility] [address] [place], [place] [id number] Aminata Lotus Hemoglobin (Bld) [Mass/Vol] 12.5 g/dL Normal 12.0-16.0 [facility] Comment on above: Performed By: #### C BC #### [facility] [address] [place] [address] Aminata Lotus IG # 0.02 10e3/ul Normal 0.00-0.03 [facility] Comment on above: Performed By: #### C BC #### [facility] [address] [place], [place] [address] Aminata Lotus IG % 0.2 % Normal 0.0-0.5 [facility] Comment on above: Performed By: #### C BC #### [facility] [address] [place] [id number] Aminata Lotus Lymphocytes (Bld) [#/Vol] 2.3 103/ul Normal 1.2-3.8 [facility] Comment on above: Performed By: #### C BC #### [facility] [address] [place], [place] [id number] Aminata Lotus Lymphocytes/100 WBC (Bld) 20.1 % Critically low 20.5-60.0 [facility] Comment on above: Performed By: #### C BC #### [facility] [address] [place], [place] [phone] Aminata Lotus MANUAL DIFF REQ NO Normal [facility] Comment on above: Performed By: #### C BC #### [facility] [address] [place], [place] [phone] Aminata Lotus MCH (RBC) [Entitic mass] 27.0 pg Normal 26.7-34.0 [facility] Comment on above: Performed By: #### C BC #### [facility] [address] [place], [place] [phone] Aminata Lotus MCHC (RBC) [Mass/Vol] 31.3 g/dL Normal 29.9-35.2 [facility] Comment on above: Performed By: #### C BC #### [facility] [address] [place], [place] [phone] Aminata Lotus MCV (RBC) [Entitic vol] 86.2 fL Normal 81.0-99.0 [facility] Comment on above: Performed By: #### C BC #### [facility] [address] [place], [place] [phone] Aminata Lotus Monocytes (Bld) [#/Vol] 0.5 103/ul Normal 0.3-0.8 [facility] Comment on above: Performed By: #### C BC #### [facility] [address] [place], [place] [address] Aminata Lotus Monocytes/100 WBC (Bld) 4.5 % Normal 1.7-12.0 [facility] Comment on above: Performed By: #### C BC #### [facility] [address] [place], [place] [address] Aminata Lotus Neutrophils (Bld) [#/Vol] 8.4 103/ul Critically high 1.4-6.5 [facility] Comment on above: Performed By: #### C BC #### [facility] [address] [place], [place] [address] Aminata Lotus Neutrophils/100 WBC (Bld) 74.7 % Normal 43.0-75.0 [facility] Comment on above: Performed By: #### C BC #### [facility] [address] [place] [address] Aminata Lotus Platelet mean volume (Bld) [Entitic vol] 10.6 fL Normal 9.5-13.5 [facility] Comment on above: Performed By: #### C BC #### [facility] [address] [place], [place] [address] Aminata Lotus Platelets (Bld) [#/Vol] 293 103/ul Normal 150-450 [facility] Comment on above: Performed By: #### C BC #### [facility] [address] [place], [place] [address] Aminata Lotus RBC (Bld) [#/Vol] 4.63 106/ul Normal 4.20-5.40 [facility] Comment on above: Performed By: #### C BC #### [facility] [address] [place], [place] [address] Aminata Lotus WBC (Bld) [#/Vol] 11.2 103/ul Critically high 4.0-11.0 [facility] Comment on above: Performed By: #### C BC #### [facility] [address] [place], [place] [address] Aminata Lotus CULTURE URINEon 08-28-2020 CULTURE URINE Culture Observations : NORMAL GENITAL FRANK. NO POTENTIAL PATHOGENS SEEN Normal [facility] Comment on above: Performed By: #### U RCX #### [facility] [address] [place] [address] Aminata Lotus ER URINE PROFILEon 0 Bilirubin [Mass/Vol] Negative Normal NEGATIVE [facility] Comment on above: Performed By: #### U MICRO, ERUR #### [facility] [address] [place] [address] Aminata Lotus BLOOD TRACE-INTACT Abnormal NEGATIVE [facility] Comment on above: Performed By: #### U MICRO, ERUR #### [facility] [address] [place] [address] Aminata Lotus Clarity (U) CLEAR Normal CLEAR [facility] Comment on above: Performed By: #### U MICRO, ERUR #### [facility] [address] [place] [address] Aminata Lotus Color (U) LT. YELLOW Normal YELLOW [facility] Comment on above: Performed By: #### U MICRO, ERUR #### [facility] [address] [place] [address] Aminata Lotus ERUAHD A micrscopic examina tion will be performed if indicated. Normal [facility] Comment on above: Performed By: #### U MICRO, ERUR #### [facility] [address] [place] [address] Aminata Lotus Glucose [Mass/Vol] Negative Normal NEGATIVE [facility] Comment on above: Performed By: #### U MICRO, ERUR #### [facility] [address] [place] [address] Aminata Lotus Ketones Ql (U) Negative Normal NEGATIVE [facility] Comment on above: Performed By: #### U MICRO, ERUR #### [facility] [address] [place] [address] Aminata Lotus Nitrite Ql (U) Negative Normal NEGATIVE [facility] Comment on above: Performed By: #### U MICRO, ERUR #### [facility] [address] [place] [address] Aminata Lotus pH (Bld) 7.5 Normal 5-9 [facility] Comment on above: Performed By: #### U MICRO, ERUR #### [facility] [address] [place], [place] [phone] Aminata Gautam Protein (U) [Mass/Vol] Negative Normal NEGATIVE/ TRACE [facility] Comment on above: Performed By: #### U MICRO, ERUR #### [facility] [address] [place] [phone] Aminata Gautam SPEC GRAVITY 1.015 Normal 1.005-<=1.0 25 [facility] Comment on above: Performed By: #### U MICRO, ERUR #### [facility] [address] [place] [address] Aminata Gautam UR MICRO IND INDICATED Normal [facility] Comment on above: Performed By: #### U MICRO, ERUR #### [facility] [address] [place], [place] [phone] Aminata Gautam Urobilinogen Qn (U) 0.2 EU/dl Normal 0.2 - 1.0 [facility] Comment on above: Performed By: #### U MICRO, ERUR #### [facility] [address] [place], [place] [phone] Aminata Gautam WBC (Bld) [#/Vol] SMALL Abnormal NEGATIVE [facility] Comment on above: Performed By: #### U MICRO, ERUR #### [facility] [address] [place], [place] [phone] Aminata Lotus PREG HCG QUALon 08-28-2020 , QUAL Negative Normal NEGATIVE [facility] Comment on above: Performed By: #### C BC #### [facility] [address] [place], [place] [phone] Aminata Gautam PROF 14(COMP METB)on 020 Albumin [Mass/Vol] 3.7 g/dL Normal 3.5-5.0 [facility] Comment on above: Performed By: #### H STROPN, TSH, CMP #### [facility] [address] [place], [place] [phone] Aminata Gautam Albumin/Globulin [Mass ratio] 1.0 {ratio} Normal [facility] Comment on above: Performed By: #### H STROPN, TSH, CMP #### [facility] [address] [phone] Aminata Lotus ALP [Catalytic activity/Vol] 88 U/L Normal 38-126 [facility] Comment on above: Performed By: #### H STROPN, TSH, CMP #### [facility] [address] [place] [address] Aminata Lotus ALT [Catalytic activity/Vol] 13 U/L Normal 9-52 [facility] Comment on above: Performed By: #### H STROPN, TSH, CMP #### [facility] [address] [place] [address] Aminata Lotus Anion gap [Moles/Vol] 14.5 mmol/L Normal [facility] Comment on above: Performed By: #### H STROPN, TSH, CMP #### [facility] [address] [place] [address] Aminata Lotus AST [Catalytic activity/Vol] 16 U/L Normal 14-36 [facility] Comment on above: Performed By: #### H STROPN, TSH, CMP #### [facility] [address] [place] [address] Aminata Lotus Bilirubin Ql (U) 0.7 mg/dL Normal 0.2-1.3 [facility] Comment on above: Performed By: #### H STROPN, TSH, CMP #### [facility] [address] [place] [address] Aminata Lotus Calcium [Mass/Vol] 8.8 mg/dL Normal 8.4-10.2 [facility] Comment on above: Performed By: #### H STROPN, TSH, CMP #### [facility] [address] [place] [address] Aminata Lotus Chloride [Moles/Vol] 106 mmol/L Normal 98-107 [facility] Comment on above: Performed By: #### H STROPN, TSH, CMP #### [facility] [address] [address] Aminata Lotus CO2 [Moles/Vol] 24.3 mmol/L Normal 22.0-30.0 [facility] Comment on above: Performed By: #### H STROPN, TSH, CMP #### [facility] [address] [id number] Aminata Lotus Creatinine [Mass/Vol] 0.96 mg/dL Normal 0.52-1.04 [facility] Comment on above: Performed By: #### H STROPN, TSH, CMP #### [facility] [address] [place] [address] Aminata Lotus EGFR-AF TAJIK >60 Normal >=60 [facility] Comment on above: Performed By: #### H STROPN, TSH, CMP #### [facility] [address] [address] Aminata Lotus EGFR-NON AF TAJIK >60 Normal >=60 [facility] Comment on above: Performed By: #### H STROPN, TSH, CMP #### [facility] [address] [address] Aminata Lotus Globulin (S) [Mass/Vol] 3.8 g/dL Normal [facility] Comment on above: Performed By: #### H STROPN, TSH, CMP #### [facility] [address] [address] Aminata Lotus Glucose [Mass/Vol] 141 mg/dL Critically high 74-106 T [facility] Comment on above: Performed By: #### H STROPN, TSH, CMP #### [facility] [address] [address] Aminata Lotus Potassium [Moles/Vol] 3.8 mmol/L Normal 3.4-5.0 [facility] Comment on above: Performed By: #### H STROPN, TSH, CMP #### [facility] [address] [address] Aminata Lotus Protein [Mass/Vol] 7.5 g/dL Normal 6.1-8.2 [facility] Comment on above: Performed By: #### H STROPN, TSH, CMP #### [facility] [address] [address] Aminata Lotus Sodium [Moles/Vol] 141 mmol/L Normal 137-145 [facility] Comment on above: Performed By: #### H SALOMON CORTEZ, CMP #### [facility] [address] [place] [address] Aminata Lotus Urea nitrogen [Mass/Vol] 10.0 mg/dL Normal 7.0-17.0 [facility] Comment on above: Performed By: #### H SALOMON CORTEZ, CMP #### [facility] [address] [place] [address] Aminatayohan Gautam Urea nitrogen/Creatinin e [Mass ratio] 10.4 mg/mg Normal [facility] Comment on above: Performed By: #### H SALOMON CORTEZ, CMP #### [facility] [address] [place] [address] Aminatayohan Gautam PROTIMEon 08-28-2020 INR Coag (PPP) [Relative time] 1.00 {INR} Normal [facility] Comment on above: Performed By: #### P T, PTT #### [facility] [address] [place] [address] Aminata Lotus PT Coag (PPP) [Time] SEE BELOW Normal [facility] Comment on above: Result Comment: TANYA RED INR: 2.0 - 3.0 CONDITIONS NOT LISTED BELOW 2.5 - 3.5 FOR PROSTHETIC HEART VALVE REPLACEMENT 2.5 - 3.5 RECURRENT THROMBOSIS Performed By: #### P T, PTT #### [facility] [address] [place] [address] Aminata Lotus PT Coag (PPP) [Time] 10.9 s Normal 9.0-11.6 [facility] Comment on above: Performed By: #### P T, PTT #### [facility] [address] [place] [address] Aminatayohan Gautam PTTon 08-28-2020 aPTT Coag (Bld) [Time] 23.9 s Normal 22.3-36.2 [facility] Comment on above: Performed By: #### P T, PTT #### [facility] [address] [place] [address] Aminata Gautam TROPONIN, HIGH SENSITIVITYon 08-28-2020 HSTROP <4.0 Normal 4.0-35.5 [facility] Comment on above: Result Comment: CUT- OFF POINTS HAVE BEEN ESTABLISHED BASED ON THE FOURTH UNIVERSAL DEFINITIONS OF MYOCARDIAL INFARCTION. THE UPPER REFERENCE LIMIT (URL) OF TROPONIN, DEFINED THE 99TH PERCENTILE OF cTnI DISTRIBUTION IN A REFERENCE POPULATION, HAS BEEN CONFIRMED THE DECISION THRESHOLD FOR TN DIAGNOSIS. 90TH PERCENTILE (O=1006)= 35.6 - 109.2 PG/ML 99TH PERCENTILE = 51.4 PG/ML NOTE: HIGH-SENSITIVITY TROPONIN ASSAY IS NOT INTENDED TO BE USED IN ISOLATION BUT SHOULD BE INTERPRETED IN CONJUNCTION WITH OTHER DIAGNOSTIC AND CLINICAL INFORMATION. Performed By: #### H STROCHOCO, TSH, CMP #### [facility] [address] [place] [address] Aminata Gautam TSHon 08-28-2020 TSH Qn 2.034 uIU/mL Normal 0.470-4.680 [facility] Comment on above: Performed By: #### H STROPN, TSH, CMP #### [facility] [address] [place] [address] Aminata Gautam TSH Qn SEE BELOW Normal [facility] Comment on above: Result Comment: <0.3 4 UIU/ml HYPERTHYROID 0.34-5.60 UIU/ml EUTHYROID >5.60 UIU/ml HYPOTHYROID Performed By: #### H STROPN, TSH, CMP #### [facility] [address] [place] [address] Aminata Gautam URINE MICROSCOPIC ONLYon Bacteria LM.HPF (Urine sed) [#/Area] NONE SEEN Normal NONE SEEN The [facility] Comment on above: Performed By: #### U MICRO, ERUR #### [facility] [address] [place] [address] Aminata Lotus CAST SEEN Abnormal NONE SEEN [facility] Comment on above: Performed By: #### U MICRO, ERUR #### [facility] [address] [place] [address] Aminata Lotus Crystals LM Nom (Urine sed) NONE SEEN Normal NONE SEEN The [facility] Comment on above: Performed By: #### U MICRO, ERUR #### [facility] [address] [address] Aminata Lotus CULTURE INDICATED Normal [facility] Comment on above: Performed By: #### U MICRO, ERUR #### [facility] [address] [place] [address] Aminata Lotus Epithelial cells LM.HPF (Urine sed) [#/Area] FEW Abnormal NONE SEEN /RARE [facility] Comment on above: Performed By: #### U MICRO, ERUR #### [facility] [address] [place] [address] Aminata Lotus HYALINE CAST RARE Normal [facility] Comment on above: Performed By: #### U MICRO, ERUR #### [facility] [address] [place] [address] Aminata Lotus MUCOUS NONE SEEN Normal NONE SEEN The [facility] Comment on above: Performed By: #### U MICRO, ERUR #### [facility] [address] [place] [address] Aminata Lotus RBC (U) [#/Vol] 2-5 Abnormal 0-2 [facility] Comment on above: Performed By: #### U MICRO, ERUR #### [facility] [address] [place] [address] Aminata Lotus WBC (Bld) [#/Vol] 5-10 Abnormal NONE SEEN [facility] Comment on above: Performed By: #### U MICRO, ERUR #### [facility] [address] [place] [address] Aminatayohan Baileyen OPERATIVE REPORTon 7 OPERATIVE REPORT Name: LIAN PINTO LEMR: [id number]: MORIS MITTAL D.P.M.DATE OF SURGERY: 02/24/2017ANESTHESIA: General.1ST DIRECTOR OF OPTIMIZATION:PREOP DIAGNOSIS: Complication of external fixator, right.POSTOP DIAGNOSIS: Complication of external fixator, right.OPERATION: Removal of external fixator, right foot and leg.TRANSPORTATION ATTENDANT: Luis Fitzpatrick, PGY-2.HEMOSTASIS: Maintained on the field.ESTIMATED BLOOD LOSS: Minimal.COMPLICATIONS: None.SURGICAL INDICATIONS: This is a 42-year-old female, who presents to theoperating room for removal of external fixator. The patient has undergone amuscle flap transpositional procedure as well as a nerve release revisional,and the patient is ready to have her external fixator removed. The nature ofher condition, anticipated procedure, postop recovery, risks and complicationsincluding, but not limited to, numbness, tingling, burning, over and undercorrection, problems with healing of soft tissue or bone, chronic pain anddisability, need for further surgery have been explained to the patient indetail. All questions were answered to the patient's satisfaction. Nopromises or guarantees have been given.OPERATIVE REPORT: Under mild sedation, the patient was brought in to theoperating room and placed on the operating table in supine position. Generalanesthesia was induced. The right lower extremity was scrubbed, prepped, anddraped in the usual aseptic manner.Next, attention was directed to the right lower extremity. The externalfixation pins were loosened and then pulled out in a sterile fashion of theleg. It was noted that all hardware was removed in total with no remnantsleft. The external fixator was completely removed. The leg was then dressed [facility] LAURO [id number] [address] [place] [address] [id number]: CATALINO KnoxERATIVE REPORTwith sterile gauze, Rojas, Kerlix, and an William bandage. The patient toleratedthe procedure and anesthesia well in apparent satisfactory condition, wastransferred to the PACU. All vital signs were stable and vascular statusintact to her digits.COMPLICATIONS: None.PATHOLOGICAL SPECIMENS: External fixator, right leg. RADHA KNOX/Zuleyka/[id number]: 03/16/2017 10:56:16 E/S: Moris Mittal, DELMA03/25/17 1448Signature on File ___[facility] LAURO [id number] [address] [place] [address] [id number] DR: CATALINO KnoxERATIVE REPORT Normal [facility] Vital Signs Date Time Vital Sign Value Performing Clinician Facility 11-01-2024 13:03-0500 Body mass index (BMI) [Ratio] 39.46 kg/m2 Jorge Lauren DO Work Phone: [facility] 11-01-2024 13:03-0500 Body weight 135.68 kg Jorge Lauren DO Work Phone: [facility] 11-01-2024 13:03-0500 Diastolic blood pressure 74 mm[Hg] Jorge Lauren DO Work Phone: [facility] 11-01-2024 13:03-0500 Systolic blood pressure 120 mm[Hg] Jorge Lauren DO Work Phone: [facility] 10-26-2024 13:57-0500 Body height 182.9 cm Kyler FRANCO Work Phone: [facility] 10-26-2024 13:57-0500 Body mass index (BMI) [Ratio] 40.96 kg/m2 Kyler FRANCO Work Phone: [facility] 10-26-2024 13:57-0500 Body weight 136.99 kg Kyler FRANCO Work Phone: [facility] 10-26-2024 13:57-0500 Diastolic blood pressure 62 mm[Hg] Kyler Carvajal PA Work Phone: [facility] 10-26-2024 13:57-0500 Heart rate 71 /min Kyler Carvajal PA Work Phone: [facility] 10-26-2024 13:57-0500 Respiratory rate 18 /min Kyler Carvajal PA Work Phone: [facility] 10-26-2024 13:57-0500 SaO2% (BldA) [Mass fraction] 100 % Kyler Carvajal PA Work Phone: [facility] 10-26-2024 13:57-0500 Systolic blood pressure 123 mm[Hg] Kyler Carvajal PA Work Phone: [facility] 09-19-2024 13:21-0500 Body height 185.4 cm Jorge Lauren DO Work Phone: [facility] 09-19-2024 13:21-0500 Body mass index (BMI) [Ratio] 38.37 kg/m2 Jorge Lauren DO Work Phone: [facility] 09-19-2024 13:21-0500 Body weight 131.91 kg Jorge Lauren DO Work Phone: [facility] 09-19-2024 13:21-0500 Diastolic blood pressure 70 mm[Hg] Jorge Lauren DO Work Phone: [facility] 09-19-2024 13:21-0500 Systolic blood pressure 120 mm[Hg] Jorge Lauren DO Work Phone: [facility] 09-07-2024 14:37-0500 Body height 185.4 cm Kyler Carvajal PA Work Phone: [facility] 09-07-2024 14:37-0500 Body mass index (BMI) [Ratio] 38.39 kg/m2 Kyler Carvajal PA Work Phone: [facility] 09-07-2024 14:37-0500 Body weight 132 kg Kyler Nienberg PA Work Phone: [facility] [employer] [facility] 09-07-2024 14:37-0500 Diastolic blood pressure 83 mm[Hg] Kyler Nienberg PA Work Phone: [facility] [employer] [facility] 09-07-2024 14:37-0500 Heart rate 80 /min Kyler Nienberg PA Work Phone: [facility] [employer] [facility] 09-07-2024 14:37-0500 Respiratory rate 16 /min Kyler Nienberg PA Work Phone: [facility] [employer] [facility] 09-07-2024 14:37-0500 SaO2% (BldA) [Mass fraction] 100 % Kyler Nienberg PA Work Phone: [facility] [employer] [facility] 09-07-2024 14:37-0500 Systolic blood pressure 126 mm[Hg] Kyler Nienberg PA Work Phone: [facility] [employer] [facility] 05-18-2024 11:25-0400 Body height 185.4 cm Kyler Nienberg PA Work Phone: [facility] [employer] [facility] 05-18-2024 11:25-0400 Body mass index (BMI) [Ratio] 38.26 kg/m2 Kyler Nienberg PA Work Phone: [facility] [employer] [facility] 05-18-2024 11:25-0400 Body weight 131.54 kg Kyler Nienberg PA Work Phone: [facility] [employer] [facility] 05-18-2024 11:25-0400 Diastolic blood pressure 85 mm[Hg] [facility]berg [facility] 05-18-2024 11:25-0400 Heart rate 71 /min Kyler Nienberg PA Work Phone: [facility] [employer] [facility] 05-18-2024 11:25-0400 Respiratory rate 20 /min Kyler Nienberg PA Work Phone: [facility] [employer] 05-18-2024 11:25-0400 Systolic blood pressure 118 mm[Hg] Kyler Nienberg PA Work Phone: [facility] 12-19-2021 16:25-0400 Body height 185.42 cm Toney P House Work Phone: NV-Qwgdfmiitaqjao-Sy [address] Work Phone: 12-19-2021 16:25-0400 Body mass index (BMI) [Ratio] 45.33 kg/m2 Toney P House Work Phone: PU-Ljbtnonxiogvsi-Rd [address] Work Phone: 12-19-2021 16:25-0400 Body surface area Derived from formula 2.71 m2 Toney P House Work Phone: YG-Zojhzzrzffppdq-Ud [address] Work Phone: 12-19-2021 16:25-0400 Body temperature 96.8 [degF] Toney P House Work Phone: IF-Iijjzehiyxnruy-Gn [address] Work Phone: 12-19-2021 16:25-0400 Body weight 155.86 kg Toney P House Work Phone: NZ-Xemmzmemkmasax-Dy [address] Work Phone: 10-27-2021 09:32-0500 Body height 185.42 cm No PCP None MP-Otolaryngolog y-We [address] [address] Work Phone: 10-27-2021 09:32-0500 Body mass index (BMI) [Ratio] 45.25 kg/m2 No PCP None RE-Dzouzccjgdnpoh-Hl [address] Work Phone: 10-27-2021 09:32-0500 Body surface area Derived from formula 2.71 m2 No PCP None QD-Rwraibvpsrviqg-[address]q [address] Work Phone: 10-27-2021 09:32-0500 Body temperature 97.9 [degF] No PCP None MP-Otolaryngolo gy-We [address] [facility] [address] Work Phone: 10-27-2021 09:32-0500 Body weight 155.58 kg No PCP None MP-Otolaryngolog y-We [address] [facility] [address] Work Phone: 10-27-2021 09:32-0500 Diastolic blood pressure 83 mm[Hg] No PCP None ZT-Mhakmnpyuqgclq-Rz [address] [address] Work Phone: 10-27-2021 09:32-0500 Systolic blood pressure 133 mm[Hg] No PCP None WZ-Iofaxiwkgiwnok-Dk [address] Work Phone: 10-27-2021 09:32-0500 0 1 No PCP None MP-Otolaryngolog y-We [address] [address] Work Phone: Comment on above: [facility] 08-16-2021 12:45-0500 Body height 185.42 cm Melody Roma Other [facility] Other 08-16-2021 12:45-0500 Body mass index (BMI) [Ratio] 41.55 kg/m2 Melody Roma Other [facility] Other 08-16-2021 12:45-0500 Body temperature 97.6 [degF] Melody Roma Other [facility] Other 08-16-2021 12:45-0500 Body weight 142.88 kg Melody Roma Other [facility] Other 08-16-2021 12:45-0500 Respiratory rate 18 /min Melody Roma Other [facility] Other 08-16-2021 12:45-0500 SaO2% (BldA) [Mass fraction] 98 % Melody Brandon Other [facility] Other 07-21-2021 14:48-0500 Body height 185.42 cm No PCP None MG-Otolaryngolog y-We [address] Work Phone: 07-21-2021 14:48-0500 Body mass index (BMI) [Ratio] 44.59 kg/m2 No PCP None GQ-Qiqhsbzbnmllwy-Gp [address] Work Phone: 07-21-2021 14:48-0500 Body surface area Derived from formula 2.69 m2 No PCP None EM-Zeibrnllspzxzk-Kn [address] Work Phone: 07-21-2021 14:48-0500 Body temperature 97.9 [degF] No PCP None MG-Otolaryngolo gy-We [address] Work Phone: 07-21-2021 14:48-0500 Body weight 153.32 kg No PCP None MG-Otolaryngolog y-We [address] Work Phone: 07-21-2021 14:48-0500 Diastolic blood pressure 81 mm[Hg] No PCP None NB-Tbapjdtqjktvjs-Ok [address] Work Phone: 07-21-2021 14:48-0500 Systolic blood pressure 120 mm[Hg] No PCP None FC-Cquapmitdtgblt-Gx [address] Work Phone: 07-21-2021 14:48-0500 2 1 No PCP None MG-Otolaryngolog y-We [address] Work Phone: Comment on above: [facility] 04-07-2021 14:27-0400 Body height 185.42 cm No PCP None MG-Otolaryngolog y-We [address] Work Phone: 04-07-2021 14:27-0400 Body mass index (BMI) [Ratio] 44.33 kg/m2 No PCP None ZJ-Tsdtillfmyiwtb-Nl [address] Work Phone: 04-07-2021 14:27-0400 Body surface area Derived from formula 2.68 m2 No PCP None CK-Mtowakzsxvedek-Gn [address] Work Phone: 04-07-2021 14:27-0400 Body temperature 98.2 [degF] No PCP None MG-Otolaryngolo gy-We [address] Work Phone: 04-07-2021 14:27-0400 Body weight 152.41 kg No PCP None MG-Otolaryngolog y-We [address] Work Phone: 04-07-2021 14:27-0400 Diastolic blood pressure 85 mm[Hg] No PCP None KY-Bbkkdfjdlseuis-Xz [address] Work Phone: 04-07-2021 14:27-0400 Systolic blood pressure 133 mm[Hg] No PCP None GD-Xtvagostrtkzzv-Rh [address] Work Phone: 04-07-2021 14:27-0400 0 1 No PCP None MG-Otolaryngolog y-We [address] Work Phone: Comment on above: [facility] Encounters Encounter Date Encounter Type Care Provider Facility Start: 11-03-2024 End: 11-05-2024 Clinisync Result Encounter Jorge Lauren DO Work Phone: [facility] Unsolicited Start: 11-03-2024 End: 11-05-2024 Clinisync Result Encounter Jorge Lauren DO Work Phone: [facility] Unsolicited Start: 11-01-2024 End: 11-01-2024 Patient encounter procedure Jorge Lauren DO Work Phone: [facility] Comment on above: Dysfunctional uterin e bleeding; Pre-operative exam Start: 11-01-2024 End: 11-01-2024 Preprocedural examination done Jorge Lauren DO Work Phone: [facility] Start: 11-01-2024 End: 11-01-2024 ambulatory Sofiya Cole MD Work Phone: [facility] Work Phone: Start: 11-01-2024 End: 11-01-2024 Departed Referred Sofiya Cole MD Work Phone: [facility] Start: 10-26-2024 End: 10-26-2024 Office outpatient visit 25 minutes Kyler FRANCO Work Phone: [facility] Comment on above: Disorder of sacrum ( Primary Dx) Start: 10-26-2024 End: 10-26-2024 ambulatory KYLER CARVAJAL [facility] Start: 09-19-2024 End: 09-19-2024 Bamboo flowsheet Jorge Lauren DO Work Phone: [facility] Start: 09-19-2024 End: 09-19-2024 Bamboo flowsheet Jorge Lauren DO Work Phone: [facility] Start: 09-19-2024 End: 09-19-2024 Office outpatient new 20 minutes Jorge Lauren DO Work Phone: [facility] Comment on above: Dysfunctional uterin e bleeding; Iron deficiency anemia, unspecified iron deficiency anemia type Start: 09-19-2024 End: 09-19-2024 ambulatory JORGE LAUREN Not Available Start: 09-11-2024 End: 09-11-2024 Orders Only Kyler FRANCO Work Phone: [facility] Comment on above: Postprocedural hypot hyroidism; Malignant neoplasm of thyroid gland ([facility]-H[facility]) Start: 09-11-2024 End: 09-11-2024 ambulatory THI STEPHENS Not Available Start: 09-11-2024 End: 09-11-2024 Office outpatient visit 25 minutes Thi Stephens MD Work Phone: [facility] Comment on above: Postoperative hypoth yroidism (CMS/HCC) (Primary Dx); Papillary thyroid carcinoma (CMS/HCC); Vitamin D deficiency; Encounter for dietary consultation; Class 3 severe obesity due to excess calories without serious comorbidity with body mass index (BMI) of 40.0 to 44.9 in adult (CMS/HCC) Start: 09-07-2024 End: 09-07-2024 Office outpatient visit 15 minutes Kyler FRANCO Work Phone: [facility] Comment on above: 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) Start: 09-07-2024 End: 09-07-2024 ambulatory KYLER CARVAJAL [facility] Start: 08-14-2024 End: 08-14-2024 ambulatory TONEY MONTOYA [facility] Start: 08-11-2024 End: 08-11-2024 ambulatory ZEESHAN Renteria PERRY [facility] Start: 08-09-2024 End: 08-18-2024 Telephone encounter Lata Mary RN [facility] Start: 08-07-2024 End: 08-07-2024 ambulatory DO TONEY MONTOYA Facility:[facility] Start: 08-01-2024 End: 08-01-2024 ambulatory TONEY MONTOYA [facility] Start: 07-25-2024 End: 07-25-2024 Departed Referred Sofiya Cole MD Work Phone: [facility] Start: 07-25-2024 End: 07-25-2024 ambulatory Sofiya Cole MD Work Phone: [facility] Work Phone: Start: 07-25-2024 End: 07-25-2024 ambulatory TONEY MONTOYA Facility:[facility] Start: 07-25-2024 End: 07-25-2024 ambulatory Korey Ford Facility: [facility] Start: 06-28-2024 End: 06-28-2024 ambulatory TONEY MONTOYA Facility:[facility] Start: 06-22-2024 End: 06-22-2024 ambulatory TONEY Melara [facility] Start: 06-19-2024 End: 06-19-2024 ambulatory TONEY Melara [facility] Start: 06-17-2024 End: 06-17-2024 ambulatory [facility] Start: 06-16-2024 End: 06-16-2024 ambulatory [facility] Start: 06-05-2024 End: 06-05-2024 ambulatory TONEY Melara PURCELL Facility:[facility] Start: 05-29-2024 End: 08-18-2024 Telephone encounter Kyler FRANCO Work Phone: [facility] Start: 05-18-2024 End: 05-18-2024 Office outpatient visit 25 minutes Kyler FRANCO Work Phone: [facility] Comment on above: Disorder of sacrum ( Primary Dx) Start: 05-18-2024 End: 05-18-2024 ambulatory [facility] Start: 04-26-2024 End: 04-26-2024 ambulatory TONEY MONTOYA Facility:[facility] Start: 03-06-2024 End: 03-06-2024 ambulatory TONEY Melara [facility] Start: 12-19-2021 Postop follow up vis it related to original px Toney Montoya Work Phone: [facility]-Ufnqnaimgbiixr-[place] Work Phone: Start: 12-05-2021 AUDIT Toney P Hous e Work Phone: [facility] Work Phone: Start: 11-28-2021 AUDIT Toney P Hous e Work Phone: [facility] Work Phone: Start: 10-27-2021 Office outpatient vi sit 15 minutes No PCP None ES-Wgjwdpusndpivz-[place] [facility] Work Phone: Start: 08-16-2021 End: 08-16-2021 ambulatory Melody Brandon Other [facility] Other Start: 08-16-2021 Office outpatient vi sit 15 minutes Melody Brandon [facility] Start: 07-21-2021 Postop follow up vis it related to original px No PCP None GF-Fceqmrdzsuwuuj-[place] Work Phone: Start: 07-10-2021 [facility], Provider: Edy Dominguez, Status: Pen, Time: 11:00 AM No PCP None KJ-Rwuvaufpytmmjb-[place] Work Phone: Start: 07-08-2021 Chart Update No PCP None [facility] Phone: Start: 07-07-2021 Office outpatient vi sit 25 minutes No PCP None SE-Svhgybvtmgsegn-Sqdp [place] Work Phone: Start: 06-12-2021 Phys/qhp telephone evaluation 5-10 min No PCP None ZD-Aqjfzcqoecntpw-F[place]x [place] Work Phone: Start: 04-29-2021 Chart Update No PCP None [facility] Phone: Start: 04-07-2021 Office outpatient ne w 45 minutes No PCP None ER-Qgzwmtsrwriapl-Ucfz [place] Work Phone: Start: 08-28-2020 End: 08-29-2020 Patient encounter procedure AMY MARKER Facility: Procedures Date Procedure Procedure Detail Performing Clinician Start: 11-03-2024 ECG 12-LEAD Jorge Fazi o DO Work Phone: Start: 11-01-2024 Urine test visual color cmprsn meths Jorge Lauren DO Work Phone: Plan of Treatment Date Care Activity Detail Author Start: 10-26-2025 Adult BMI Screening Adult BMI Screen ing [facility] Start: 10-26-2025 Tobacco Screening Tobacco Screening [facility] Start: 09-07-2025 Adult BMI Screening Adult BMI Screen ing [facility] Start: 09-07-2025 Tobacco Screening Tobacco Screening [facility] Start: 08-11-2025 Tobacco Screening Tobacco Screening [facility] Start: 05-18-2025 Adult BMI Screening Adult BMI Screen ing [facility] Start: 05-18-2025 Tobacco Screening Tobacco Screening [facility] Start: 12-07-2024 End: 12-07-2024 Patient encounter procedure 12/07/2024 1:30 PM EDT Office Visit [facility] [address] [place] [address] Kyler Carvajal PA [address] [place] [address] [facility] Start: 11-17-2024 End: 11-17-2024 Admission to same day surgery center 11/17/2024 10:26 AM EDT - 11/17/2024 10:33 AM EDT Surgery [facility] [address] [place] [address] Zeeshan Perry MD [address] [place] [address] INJECTION BLOCK SACROILIAC JOINT [67536 (CPT )] [facility] Comment on above: INJECTION BLOCK SACR OILIAC JOINT [32618 (CPT )] Start: 11-17-2024 End: 11-17-2024 Inject si joint arthrgrphy&/anes/steroid w/trav INJECTION BLOCK SACROILIAC JOINT Disorder of sacrum 11/17/2024 10:26 AM EDT [facility] Start: 11-17-2024 Subsequent hospital visit by physician 11/17/2024 10:26 AM EDT Hospital Encounter [facility] [address] [facility] [place] [phone] Zeeshan Perry MD [address] [place], [place] [id number] [facility] Start: 11-09-2024 End: 11-09-2024 Patient encounter procedure 11/09/2024 2:45 PM EST Office Visit [facility] [address] [place] [phone] Kyler Carvajal PA [address] [place], [place] [id number] [facility] Start: 10-17-2024 End: 10-17-2024 Patient encounter procedure 10/17/2024 2:30 PM EST Procedure Visit [facility] [address] [place] [phone] Jorge Aguilar, [address] [place] [address] [facility] Start: 09-19-2024 End: 09-19-2025 US Pelvis US Pelvis w/ TV Imaging Routine Dysfunctional uterine bleeding Expected: 09/19/2024, Expires: 09/19/2025 [facility] Work Phone: Comment on above: Expected: 09/19/2024 , Expires: 09/19/2025 Start: 09-19-2024 End: 09-19-2024 Patient encounter procedure [facility] Comment on above: Arrived Start: 09-11-2024 End: 09-11-2025 Thyroglobulin [facility] Work Phone: Comment on above: Expected: 09/11/2024 (Approximate), Expires: 09/11/2025 Expected: 09/11/2024 , Expires: 09/11/2025 Start: 09-11-2024 End: 09-11-2025 Thyroglobulin Ab [Units/volume] in Serum or Plasma Thyroglobulin Ab Lab Routine Postprocedural hypothyroidism Malignant neoplasm of thyroid gland (CMS-HCC) Expected: 09/11/2024, Expires: 09/11/2025 [employer] Work Phone: Comment on above: Expected: 09/11/2024 , Expires: 09/11/2025 Start: 09-11-2024 End: 09-11-2025 Thyroglobulin Antibody Thyroglobulin Antibody Lab Routine Postoperative hypothyroidism (CMS/HCC) Papillary thyroid carcinoma (CMS/HCC) Expected: 09/11/2024 (Approximate), Expires: 09/11/2025 [facility] Comment on above: Expected: 09/11/2024 (Approximate), Expires: 09/11/2025 Start: 09-11-2024 End: 09-11-2025 Thyroid profile includes TSH FT4 Thyroid profile includes TSH FT4 Lab Routine Postprocedural hypothyroidism Malignant neoplasm of thyroid gland (CMS-HCC) Expected: 09/11/2024, Expires: 09/11/2025 [employer] Work Phone: Comment on above: Expected: 09/11/2024 , Expires: 09/11/2025 Start: 09-11-2024 End: 09-11-2025 Thyrotropin [Units/volume] in Serum or Plasma TSH Lab Routine Postoperative hypothyroidism (CMS/HCC) Papillary thyroid carcinoma (CMS/HCC) Expected: 09/11/2024 (Approximate), Expires: 09/11/2025 [facility] Comment on above: Expected: 09/11/2024 (Approximate), Expires: 09/11/2025 Start: 09-11-2024 End: 09-11-2025 Thyroxine (T4) free [Mass/volume] in Serum or Plasma [facility] [employer] [facility] Comment on above: Expected: 09/11/2024 (Approximate), Expires: 09/11/2025 Expected: 09/11/2024 , Expires: 09/11/2025 Start: 09-11-2024 End: 09-11-2025 Triiodothyronine (T3) Free [Mass/volume] in Serum or Plasma [facility] [employer] [facility] Comment on above: Expected: 09/11/2024 (Approximate), Expires: 09/11/2025 Expected: 09/11/2024 , Expires: 09/11/2025 Start: 09-07-2024 End: 09-07-2024 Patient encounter procedure 09/07/2024 2:30 PM EST Office Visit [facility] [address] [place] [address] Kyler Carvajal PA [address] [place], [place] [phone] [facility] Start: 07-04-2024 End: 07-04-2024 Patient encounter procedure 07/04/2024 12:30 PM EDT Office Visit [facility] [address] [place] [phone] Kyler Carvajal PA [address] [place], [place] [phone] [facility] Start: 06-16-2024 End: 06-16-2024 Admission to same day surgery center 06/16/2024 11:15 AM EDT - 06/16/2024 11:22 AM EDT Surgery [facility] [address] [place] [phone] Zeeshan Perry MD [address] [facility], [place] [phone] INJECTION BLOCK SACROILIAC JOINT [75946 (CPT )] [facility] Comment on above: INJECTION BLOCK SACR OILIAC JOINT [63547 (CPT )] Start: 06-16-2024 End: 06-16-2024 Inject si joint arthrgrphy&/anes/steroid w/trav INJECTION BLOCK SACROILIAC JOINT Disorder of sacrum 06/16/2024 11:15 AM EDT [facility] Start: 06-16-2024 Subsequent hospital visit by physician 06/16/2024 11:15 AM EDT Hospital Encounter [facility] [address] [place] [phone] Zeeshan Perry MD [address] [facility] [address] [facility] Start: 05-07-2024 Influenza vaccination Influenza Vacc ine [facility] Start: 03-23-2022 FUV, Provider: Edy Dominguez, Status: Pen, Time: 2:30 PM FUV, Provider: Edy Dominguez, Status: Pen, Time: 2:30 PM YB-Hyaindxgqjvdry-P [place] Work Phone: Start: 12-19-2021 POV, Provider: Edy Dominguez, Status: Pen, Time: 4:00 PM POV, Provider: Edy Dominguez, Status: Pen, Time: 4:00 PM XO-Ohqoopvsynjrau-H [place] Work Phone: Start: 12-04-2021 [facility] Provider: Edy Dominguez, Status: Pen, Time: 7:00 AM [facility], Provider: Edy Dominguez, Status: Pen, Time: 7:00 AM QU-Yotjiwwwcfvadd-A [place] Work Phone: Start: 10-06-2021 [facility], Provider: Edy Dominguez, Status: Pen, Time: 3:00 PM [facility], Provider: Edy Dominguez, Status: Pen, Time: 3:00 PM SY-Nubrfandwirpjw-T [place] Work Phone: Start: 07-10-2021 [facility], Provider: Edy Dominguez, Status: Pen, Time: 11:00 AM [facility], Provider: Edy Dominguez, Status: Pen, Time: 11:00 AM XT-Jgboplulsessbe-I [place] Work Phone: Start: 01-24-1997 Screening for malign ant neoplasm of cervix Pap Smear [facility] Start: 01-24-1995 DTaP,Tdap and Td Vac cines (1 - Tdap) DTaP,Tdap and Td Vaccines (1 - Tdap) [facility] Start: 01-24-1994 Adult BMI Follow Up Plan Adult BMI Follow Up Plan [facility] Start: 1988 Depression Screening Depression Scre ening [facility] Tissue exam Tissue exam Path ology and Cytology Routine Dysfunctional uterine bleeding Pre-operative exam Ordered: 11/01/2024 [facility] [employer] Work Phone: Comment on above: Ordered: 11/01/2024 Immunizations Immunization Date Immunization Notes Care Provider [facility] 08-21-2020 influenza, injectabl e, quadrivalent, contains preservative Thi Stephens MD Work Phone: [facility] 08-21-2020 influenza virus vaccine, unspecified formulation Kyler FRANCO Work Phone: [facility] 05-23-2019 influenza, injectabl e, quadrivalent, contains preservative Thi Stephens MD Work Phone: [facility] Healthcare Payers Date Payer Category Payer Self-pay 2023 Medicare (Managed Care) [facility] [id number] 2023 Medicaid [id number] 2022 Medicare ANTHEM MEDICARE [employer] MEDICARE ADVANTAGE [id number] 2022-Present [phone] [address] [place] [address] [id number] 2022 Medicare HMO ANTHEM MEDICARE [id number] 2022 Medicare [id number] 2019 Auto Insurance [employer] [id number] 1976 Unknown [id number] 2.840.1.769837.3.579.2. 593 1976 Unknown [id number] 2.840.1.047791.3.579.2. 1286 1976 Unknown [id number] 2.16840.1.997501.3.579.2. 1286 1976 Unknown [id number] 2.840.1.679952.3.579.2. 1286 1976 Unknown [id number] 2.16.840.1.017722.3.579.2. 1285 1976 Unknown [id number] 2.16.840.1.101653.3.579.2. 1285 1976 Unknown [id number] 2.16.840.1.254914.3.579.2. 1285 1976 Unknown [id number] 2.16.840.1.092894.3.579.2. 1285 1976 Unknown [id number] 2.16.840.1.603126.3.579.2. 1285 1976 Unknown [id number] 2.16840.1.737232.3.579.2. 1285 1976 Unknown [id number] 2.16840.1.528701.3.579.2. 1285 1976 Unknown [id number] 2.16840.1.159526.3.579.2. 1285 1976 Unknown [id number] 2.16840.1.287504.3.579.2. 1285 1976 Unknown [id number] 2.16840.1.403878.3.579.2. 1258 1976 Unknown [id number] 2.16840.1.733955.3.579.2. 1258 1976 Unknown [id number] 2.16840.1.680882.3.579.2. 1258 1976 Unknown [id number] 2.16840.1.456405.3.579.2. 1976 Unknown [id number] 2.16840.1.497697.3.579.2. 1976 Unknown [id number] 2.16840.1.903771.3.579.2. 1976 Unknown [id number] 2.16840.1.615147.3.579.2. 1976 Unknown [id number] 2.16.840.1.316790.3.579.2. 718 1976 Unknown [id number] 2.16.840.1.539550.3.579.2. 718 1959 Medicaid [id number] 1958 Medicare [id number] Private Health Insurance [employer] [id number] Unknown Unknown [id number] 2.16.840.1.155235.3.579.2. 531 Unknown [id number] 2.16.840.1.758434.3.579.2. 531 Social History Date Type Detail Facility Unknown if ever smoked [facility] Start: 08-09-2024 End: 09-07-2024 Sex Assigned At [facility] ystem Tobacco smoking stat us HIIS Unknown if ever smoked [facility] Work Phone: Start: 07-26-2024 End: 11-03-2024 Sex Female (finding) [facility] Start: 1975 Sex Assigned At Female F [facility] Start: 07-08-2022 End: 08-09-2024 Tobacco smoking status NHIS Never smoked tobacco [facility] Start: 07-08-2022 End: 08-09-2024 Tobacco use and exposure Smokeless tobacco non-user [facility] Start: 09-07-2024 End: 10-26-2024 Alcoholic beverage intake Current drinker of alcohol (finding) [facility] Start: 08-09-2024 End: 09-07-2024 History of Social function [facility] Adolescent depressio n screening assessment 0 [facility] Start: 04-12-2017 Alcohol Comment Socially [facility] Start: 1975 Sex assigned at Not on file [facility] Medical Equipment Procedure Code Equipment Code Equipment Origin al Text Equipment Identifier Dates Scr Bn Twstof Fr s 2.0x13 Ns - Sws13 - [id number] Start: 02-11-2018 Comment on above: Description: WS13 2. 0 major thread, 13 mm screw, pitch 0.87 - SCR BN TWSTOF FRS 2.0X13 NS Titanium Fixos 2.0 WS twist off screws Scr Bn Twstof Fr s 2.0x15 Ns - Sws15 - [id number] Start: 02-11-2018 Comment on above: Description: WS15 2. 0 major thread, 15 mm screw, pitch 0.87 - SCR BN TWSTOF FRS 2.0X 15 NS Titanium Fixos 2.0 WS twist off screws Clinical Notes 05-04-2021 to 11-06-2024 Lotus Bailey LPN - 11/01/2024 1:00 PM ESTJOAN John - 10/26/2024 2:00 PM ESTPatient Renny Bailey LPN - 09/19/2024 1:10 PM Rach Stephens MD - 09/11/2024 11:40 AM EST Note Date & Type Note Facility 11-06-2024 Note Entered by MILTON MONTOYA DO on November 06, 2024 11:01:24 EST From: TONEY MONTOYA DO To: [facility] Sent: 11/06/2024 11:01:24 EST Subject: Medication Management Submitted: Complete:citalopram (citalopram 20 mg oral tablet) Signed by TONEY MONTOYA DO 11/06/2024 11:01:00 EST Approved with modifications: citalopram (Citalopram Hydrobromide 20 MG Oral Tablet) Take 1 tablet by mouth once daily Qty: 30 tab(s) Days Supply: 30 Refills: 5 Substitutions Allowed Route To Pharmacy - [place] [id number] From: [place] [address] To: TONEY MONTOYA DO Sent: November 06, 2024 8:20:27 AM [employer] Subject: Medication Management Due: November 07, 2024 12:02:49 AM [employer] On Hold Pending Signature Dispensed Drug: citalopram (citalopram 20 mg oral tablet), Take 1 tablet by mouth once daily Quantity: 30 tab(s) Days Supply: 30 Refills: 0 Substitutions Allowed Notes from Pharmacy: [facility] 11-01-2024 History of Presen t illness Narrative Reason for Appointment: Patient ID: Lauro Pinto is a 49 y.o. female who presents for Vaginal Bleeding and Pre-op Visit Patient presents today for Pre Op/Endometrial Biopsy appointment. Patient is scheduled to undergo Endometrial Ablation with Anya on 11/10/[address] Aguilar at [facility]. MEDICATIONS Current Outpatient Medications Medication Instructions Cariprazine HCl (Vraylar) 1.5 MG capsule 1 capsule, Daily dicyclomine (BENTYL) 20 mg, Every 6 hours ferrous gluconate (FERGON) 324 mg, Daily with breakfast levothyroxine (SYNTHROID, LEVOXYL) 200 mcg, Oral, Daily levothyroxine (SYNTHROID, LEVOXYL) 50 mcg, Oral, Daily meclizine (ANTIVERT) 25 mg, 3 times daily PRN meloxicam (MOBIC) 7.5 mg, Daily mirtazapine (REMERON) 30 mg, Nightly omeprazole (PRILOSEC) 40 mg, Daily ALLERGIES No Known Allergies PROBLEMS Active Ambulatory Problems Diagnosis Date Noted No Active Ambulatory Problems Resolved Ambulatory Problems Diagnosis Date Noted No Resolved Ambulatory Problems Past Medical History: Diagnosis Date Dietary counseling and surveillance Morbid obesity with body mass index (BMI) of 40.0 to 49.9 (CMS/HCC) Papillary thyroid carcinoma (CMS/HCC) 07/2021 Post-surgical hypothyroidism (CMS/HCC) Vitamin D deficiency, unspecified HISTORY PAST MEDICAL HISTORY SOCIAL HISTORY Past Medical History: Diagnosis Date Dietary counseling and surveillance Morbid obesity with body mass index (BMI) of 40.0 to 49.9 (CMS/HCC) Papillary thyroid carcinoma (CMS/HCC) 07/2021 left side Jul 2021, Completion sx November 2021 Post-surgical hypothyroidism (CMS/HCC) Vitamin D deficiency, unspecified Social History Tobacco Use Smoking status: Never Smokeless tobacco: Never Substance Use Topics Alcohol use: Not on file Drug use: Not on file FAMILY HISTORY Family History Problem Relation Name Age of Onset Heart attack Sister Cancer Maternal Grandmother Heart failure Maternal Grandfather SURGICAL HISTORY Past Surgical History: Procedure Laterality Date APPENDECTOMY BACK SURGERY COLONOSCOPY FOOT SURGERY Right KNEE SURGERY THYROIDECTOMY, PARTIAL Left 07/2021 TONSILLECTOMY TOTAL THYROIDECTOMY Right 11/2021 Papillary thyroid cancer TUBAL LIGATION UMBILICAL HERNIA REPAIR US GUIDED FINE PERCUTANEOUS ASPIRATION 11/14/2020 US GUIDED FINE PERCUTANEOUS ASPIRATION 11/14/2020 REVIEW OF SYSTEMS Review of Systems: Review of Systems Constitutional: Negative. HENT: Negative. Eyes: Negative. Respiratory: Negative. Cardiovascular: Negative. Gastrointestinal: Negative. Genitourinary: Positive for menstrual problem. Musculoskeletal: Negative. Skin: Negative. Neurological: Negative. All other systems reviewed and are negative. Hematological: Negative. Endocrine: Negative. Allergic/Immunologic: Negative. OBJECTIVE Objective: Physical Exam Constitutional: Appearance: Normal appearance. She is well-developed. Genitourinary: Vulva normal. Cardiovascular: Rate and Rhythm: Normal rate and regular rhythm. Pulmonary: Effort: Pulmonary effort is normal. Breath sounds: Normal breath sounds. Abdominal: General: Bowel sounds are normal. There is no distension. Palpations: Abdomen is soft. Tenderness: There is no abdominal tenderness. There is no guarding or rebound. Musculoskeletal: General: No swelling. Normal range of motion. Right lower leg: No edema. Left lower leg: No edema. Neurological: Mental Status: She is alert and oriented to person, place, and time. Skin: General: Skin is warm and dry. Psychiatric: Mood and Affect: Mood normal. Behavior: Behavior normal. Vitals and nursing note reviewed. Exam conducted with a publication editor present. Vitals: Estimated body mass index is 39.46 kg/m as calculated from the following: Height as of 09/19/24: 6' 1 . Weight as of this encounter: 299 lb 1.9 oz. BP: 120/74 No LMP recorded (within weeks). ASSESSMENT & PLAN ICD-10-CM 1. Dysfunctional uterine bleeding N93.8 POCT , urine manually resulted Tissue exam 2. Pre-operative exam Z01.818 POCT , urine manually resulted Tissue exam EMBX: Patient was placed in dorsal lithotomy position with feet in stirrups. A sterile speculum was placed into the vagina and the cervix was visualized. The cervix was grasped with a single tooth tenaculum. The endometrial pipette was placed through the cervix into the uterus, endometrial curettage was performed and sampling was obtained, endometrial curettings were placed in formalin, and single tooth tenaculum was removed. Excellent hemostasis was assured. All instruments were removed from vagina. Pre Op: Patient is doing well but has complaints of heavy periods. I have discussed conservative management vs. surgical management with the patient in detail and patient desires surgical management at this time. Patient will undergo Endometrial Ablation with Anya on 11/10/24. Surgical consents were signed, mmc was reviewed, and patient is to proceed to [facility] OR. Follow Up: Patient is to follow up between 1-2 weeks post operative to assess proper healing and recovery from procedure. Documented by Lotus Bailey LPN on behalf of: Jorge Aguialr DO documented in this encounter [facility] 10-31-2024 Note Entered by MILTON MONTOYA DO on October 31, 2024 14:25:57 EST From: TONEY MONTOYA DO [email or web address] Sent: 10/31/2024 14:25:57 EST Subject: Medication Management Submitted: Complete:omeprazole (omeprazole 40 mg oral delayed release capsule) Signed by TONEY MONTOYA DO 10/31/2024 14:25:00 EST Approved with modifications: omeprazole (OMEPRAZOLE DR 40MG CAP) Take 1 capsule by mouth once daily Qty: 30 cap(s) Days Supply: 30 Refills: 5 Substitutions Allowed [email or web address] To: TONEY MONTOYA DO Sent: October 31, 2024 12:02:15 PM [employer] Subject: Medication Management Due: November 01, 2024 12:11:39 AM [employer] On Hold Pending Signature Dispensed Drug: omeprazole (omeprazole 40 mg oral delayed release capsule), Take 1 capsule by mouth once daily Quantity: 30 cap(s) Days Supply: 30 Refills: 0 Substitutions Allowed Notes from Pharmacy: [facility] 10-26-2024 History of Presen t illness Narrative [facility] [address] [place] [address] Patient: Lauro Pinto Sex: female : 1975 Age: 49 y.o. PCP: TONEY MONTOYA, DO 10/26/2024 Lauro Pinto is here for a(n) follow up for low back and left knee pain. Chief Complaint Patient presents with Back Pain Knee Pain HPI: PT/Water therapy 12/2022 last visit Back: 02/06/22 Bilateral L4/5, 5/1 MBB with 75% relief x1 week Bilat L4/5 5/1 MBB 03/20/2022 80% relief x few days. 04/24/2022 right then 05/15/2022 Left L4/5 L5/1 RFA w/ 25 % relief Bilat SI joint injection 08/07/2022 80% relief that continues. 07/09/23 Bilateral SI injection with 30% temporary relief. 08/11/2024 bilateral sacroiliac injection with 70% relief that continues. Back Pain This is a chronic (1993) problem. The current episode started more than 1 year ago. The problem occurs constantly. Progression since onset: SI pain has decreased. The pain is present in the lumbar spine, sacro-iliac and thoracic spine. The quality of the pain is described as aching and cramping (sharp). The pain is at a severity of 5/10 (up to 7/10). The pain is moderate. The pain is Worse during the day (thoracic pain is the worst with lying). The symptoms are aggravated by sitting, standing, position, lying down, twisting and bending. Stiffness is present In the morning (getting up from lying position). Pertinent negatives include no bladder incontinence, bowel incontinence, chest pain, fever, leg pain, numbness, tingling or weakness. Risk factors include history of steroid use, poor posture and obesity. She has tried ice, heat, bed rest, home exercises, NSAIDs, muscle relaxant and walking (Previous injections, PT/Water therapy (06/2021), Nsaidsx2, tizanadine, tyl, topical, mobic, tramadol) for the symptoms. The treatment provided mild relief. Knee Pain Incident onset: Mid Aug 2022. Incident location: n/a. There was no injury mechanism. The pain is present in the left knee (Lt Calf). The quality of the pain is described as burning, aching and stabbing (stiff, locking up, popping). The pain is at a severity of 5/10 (9/10 with work). The pain is moderate. The pain has been Constant since onset. Associated symptoms include an inability to bear weight, a loss of motion and muscle weakness (Lt knee). Pertinent negatives include no numbness or tingling. She reports no foreign bodies present. The symptoms are aggravated by movement, palpation and weight bearing. She has tried ice, heat, non-weight bearing and NSAIDs (ice, heat, bed rest, home exercises, NSAIDs, muscle relaxant and walking (Previous injections, PT/Water therapy (06/2021), Nsaidsx2, tizanadine, tyl, topical, mobic, tramadol, Post Lt Knee Arthroscopy 11/2022) for the symptoms. The treatment provided mild relief. The effect of pain on patient's ADLS: Mild Impairment. Past Medical History: Diagnosis Date Anemia Asthma Chronic back pain Chronic pain disorder Constipation Depression GERD (gastroesophageal reflux disease) Low back pain Lumbosacral disc disease Migraine Neuropathy Obesity Osteoarthritis Thyroid cancer (CMS-HCC) left side but both sides removed Past Surgical History: Procedure Laterality Date APPENDECTOMY FOOT SURGERY x4; plantar fascitis and tarsal tunnel INJECTION BLOCK NERVE MEDIAL BRANCH Bilat L 4/5, 5 Bilateral 03/20/2022 Performed by Zeeshan Perry MD at [facility] INJECTION BLOCK NERVE MEDIAL BRANCH Bilat L 4/5,5/ Bilateral 02/06/2022 Performed by Zeeshan Perry MD at [facility] INJECTION BLOCK SACROILIAC JOINT Bilateral 08/11/2024 Performed by Zeeshan Perry MD at [facility] INJECTION BLOCK SACROILIAC JOINT Bilateral 07/09/2023 Performed by Zeeshan Peryr MD at [facility] INJECTION BLOCK SACROILIAC JOINT Bilateral 08/07/2022 Performed by Zeeshan Perry MD at [facility] INJECTION MEDIAL BRANCH NERVE BLOCK Bialteral L 3/4, 4/5 Medial Branhc Block X 1 Bilateral 05/07/2017 Performed by Zeeshan Perry MD at [facility] BARROW MEDIAL BRANCH NERVE BLOCK BILATERAL L3/4, 4/5 Bilateral 10/22/2017 Performed by Zeeshan Perry MD at [facility] KNEE ARTHROSCOPY W/ MENISCECTOMY Left 11/2022 OSTEOTOMY KELTON PROCEDURE METATARSAL Right 02/11/2018 Performed by [facility] Watson DPM at [facility] RADIOFREQUENCY ABLATION SPINAL left L 4/5, 5/1 Left 05/15/2022 Performed by Zeeshan Perry MD at [facility] RADIOFREQUENCY ABLATION SPINAL right L 4/5,5/1 Right 04/24/2022 Performed by Zeeshan Perry MD at [facility] RADIOFREQUENCY ABLATION SPINAL: right L34 45 rfa Right 03/11/2018 Performed by Zeeshan Perry MD at [facility] SPINE SURGERY 09/06/2009 L5/S1 diskectomy and fusion THYROID LOBECTOMY TONSILLECTOMY TOTAL THYROIDECTOMY Bilateral TUBAL LIGATION UMBILICAL HERNIA REPAIR No Known Allergies Family History Problem Relation Age of Onset Diabetes Mother Cancer Maternal Grandmother No Known Problems Father Social History Socioeconomic History Marital status: Single Spouse name: Not on file Number of children: Not on file Years of education: Not on file Highest education level: Not on file Occupational History Not on file Tobacco Use Smoking status: Never Smokeless tobacco: Never Vaping Use Vaping status: Never Used Substance and Sexual Activity Alcohol use: Yes Comment: Socially Drug use: No Sexual activity: Defer Partners: Male Other Topics Concern Not on file Social History Narrative Not on file Social Drivers of Health Financial Resource Strain: Not on file Food Insecurity: No Food Insecurity (10/26/2024) Hunger Screening Food Insecurity - Worry: Never True Food Insecurity - Inability: Never True Transportation Needs: Not on file Physical Activity: Not on file Stress: Not on file Social Connections: Not on file Interpersonal Safety: Not on file Housing Instability: Not on file Review of Systems Constitutional: Negative. Negative for chills, fatigue and fever. Respiratory: Negative. Negative for cough and shortness of breath. Cardiovascular: Negative. Negative for chest pain. Gastrointestinal: Negative. Negative for bowel incontinence. Genitourinary: Negative. Negative for bladder incontinence. Musculoskeletal: Positive for back pain. Negative for gait problem. Skin: Negative. Negative for rash and wound. Neurological: Negative. Negative for tingling, weakness and numbness. Hematological: Negative. Does not bruise/bleed easily. Psychiatric/Behavioral: Negative. Negative for self-injury and suicidal ideas. Vital Signs: BP 123/62 Pulse 71 Resp 18 Ht 182.9 cm (6') Wt (!) 137 kg (302 lb) SpO2 100% BMI 40.96 kg/m Physical Exam: GENERAL - Healthy patient that appears stated age. HEENT - Normocephalic / Atraumatic, Extraoccular movements intact, trachea midline, thyroid within normal limits. CV - pulse regular, Warm extremities with appropriate color of nailbeds. RESP - No obvious wheezing, No Shortness of Breath, No overexertion response to exam maneuvers. COORDINATION - remains intact. PSYCH - Alert and Oriented x4, Attentive and appropriate, constitutionally normal, displays normal mood and affect per situation, answered questions appropriately during examination, demonstrated appropriate attention during discussion, demonstrated appropriate cognitive reasoning and understanding of the medical condition by asking appropriate questions regarding the diagnosis and risks/benefits/alternatives of treatment modalities. No obvious deficits in memory, reasoning, or intellect. Lumbar: SKIN - No rashes or bruising in the area of the patient s pain. LYMPH NODES - demonstrate no obvious enlargement. EXTREMITIES - Lower extremities are warm, with minimal edema and palpable pulses. Tenderness to palpation noted in the lumbar spine and paraspinal musculature. Pain is elicited with flexion, extension, and lateral rotation of the lumbar spine. Range of motion is diminished with these motions due to pain. Facet palpation is noted to be somewhat tender and facet loading maneuvers are mildly positive, but not concordant with the patient s normal pain complaints. STRENGTH - noted to be 5 out of 5 all muscle groups bilateral lower extremities including muscles involving hip flexion and abduction, knee flexion and extension, as well as foot dorsiflexion and plantarflexion. No notable atrophy, fasciculations or spasm. SENSORY - No notable sensory deficits in the bilateral lower extremities to touch or pinprick in all dermatomal distributions. Straight Leg Raise is negative. Tenderness to palpation is noted over the Bilateral SacroIliac Joint: Fabere sign (Angel's Test) is significantly positive, as is compression and distraction of the sacroiliac joints, which is consistent with some of the patient's normal pain. Gait is normal. Assessment/Treatment Plan: Lauro was seen today for back pain and knee pain. Diagnoses and all orders for this visit: Disorder of sacrum - Case request operating room: INJECTION BLOCK SACROILIAC JOINT Bilateral Sacroiliac Joint Injection - under fluoroscopy with the use of contrast dye (unless contraindicated) It is hopeful that the described procedure will provide symptomatic pain relief. It is felt to be medically necessary noting that the patient has tried and failed more conservative modalities of therapy and this is the next most appropriate step. The procedure was described in detail to the patient as well as the potential benefits of pain reduction alongside risks of the procedure and alternatives. Risks were described as including, but not limited to bleeding, infection, nerve damage, spinal cord injury, paralysis, stroke, dural puncture headache, and medication reaction. The patient expressed understanding regarding the risks and benefits and wishes to proceed. SI injections should provide information to confirm that the noted SI Joint arthropathy is the patient s most significant pain generator. Follow up 2 weeks after procedure The medications prescribed have been reviewed for medication interactions/contraindications and/or for upcoming procedures: continue current medication regimen without any changes. DISCUSSION: Treatment options discussed with patient and all questions answered to patient's satisfaction. Discussed the rules and regulations surrounding prescription of opioids and compliance at length. Failure to follow the rules and regulation will result in tapering and discontinuation of medications if applicable. Prescribed medication that requires intensive monitoring for toxicity We do not currently prescribe any controlled substance from this practice. It is noted that the patient did have good response from the previously performed procedure. It is felt that the patient would benefit from an additional procedure of the same nature in that the same symptoms have returned. It is hopeful that this additional injection will provide additional benefit and duration when combined with the previous injection. The spine model was demonstrated and MRI was reviewed and used to explain the condition. Chronic conditions not treated during this visit that affected my overall medical decision making: Comorbidity- Obesity The patient does have a comorbid condition of obesity. This will be taken into account in that obesity will contribute to certain pain conditions. It can contribute to pain from degenerative disc disease as well as osteoarthritis of the joints. Many neuropathic symptoms are also amplified due to axial spine loading. Special benefits will also need to be given to procedures. Many procedures are technically more difficult in the light of severe obesity. I will also consider the possibility of undiagnosed obstructive sleep apnea (which often accompanies obesity) when prescribing any narcotic medications. I will weigh the risks and benefits and fully discuss them with the patient for these reasons. Comorbidity- Depression The patient has an ongoing issue with depression and currently feels these symptoms are under control and further feels that appropriate pain management would also help these symptoms. The patient is optimistic about the treatment plan we have laid out. We will continue to monitor these symptoms and remain cogniscent that they may affect the patients perceived improvement from the treatment and willingness to pursue further treatment. At this time the patient appears to be mentally and emotionally stable to undergo procedural and medical therapy. If any warning signs become present, I may refer the patient to a mental health professional for further evaluation. OARRS: Reviewed. Scribe Statement: Zainab Hunt CNA, scribed for and in the presence of JOAN JOHN who performed the above service. Provider Statement: KYLER Hunt PA, personally performed the services described in the documentation, as scribed by Zainab Robles CNA in my presence, and it is both accurate and complete. Zainab Robles CNA 10/26/24 [id number] JOAN John 10/31/24 [id number] documented in this encounter [employer] 10-26-2024 Instructions Zainab Robles CNA - 10/26/2024 2:00 PM EST Facet Injection / Medial Branch Block (MBB) / Sacroiliac (SI) Joint Injection / Cluneal NB A facet injection and sacroiliac joint injection are injections of local anesthetic and steroid into a joint in the spine. A medial branch block is similar, but the medication is placed outside the joint space near the nerve that supplies the joint called the medial branch (steroid may or may not be used). You may require multiple injections depending upon how many joints are involved. How Long Will This Procedure Last? The extent and duration of pain relief may depend on the amount of inflammation and how many areas are involved. Other coexisting factors may be responsible for your pain. If your pain goes away for a short time, but then returns, you may be a candidate for radiofrequency ablation (RFA). Activity Be active. Attempt activities and movements that typically cause pain to see if it feels better while doing them. We will give you a pain diary. Please fill this out as directed by your nurse in pre-op. This will help your doctor determine the effectiveness of the injection, and how to proceed. Bring the pain diary with you to your follow-up appointment. Medications You should not take your pain medications for 4-6 hours before or after the injection in order to properly diagnose if the injection provides adequate relief. Resume your routine medications after your procedure. You may resume blood thinners per your regular schedule after the procedure. If you received sedation: If you received sedation for your procedure, you may feel sleepy or not yourself for several hours today. For the next 24 hours avoid activities that requires alertness or coordination. This includes: Driving or operating heavy machinery Using power tools Consuming alcohol Do not make important or complex decisions or sign legal documents in the next 24 hours. Other Instructions: If you feel severe pain at the injection site with swelling and redness, increased leg weakness, a fever of 101 or higher, headache (or worsening headache), changes in vision or urinary retention: Please call the office at , or have someone take you to the nearest emergency room. Tell the emergency room staff that you recently had a spine injection. A doctor must evaluate you for bleeding and injection complications. If you lose control over bowel, bladder, or legs: Go to the nearest emergency room. documented in this encounter [employer] 10-09-2024 Note Entered by MILTON MONTOYA DO on October 09, 2024 07:30:49 EST From: TONEY MONTOYA DO To: [id number] Sent: 10/09/2024 07:30:49 EST Subject: Medication Management Submitted: Complete:busPIRone (busPIRone 10 mg oral tablet) Signed by TONEY MONTOYA DO 10/09/2024 07:30:00 EST Approved with modifications: busPIRone (busPIRone HCl 10 MG Oral Tablet) Take 1 tablet by mouth twice daily as needed Qty: 60 tab(s) Days Supply: 30 Refills: 2 Substitutions Allowed Route To Pharmacy - [id number] To: TONEY MONTOYA DO Sent: October 06, 2024 12:01:36 PM [employer] Subject: Medication Management Due: October 07, 2024 12:04:38 AM [employer] On Hold Pending Signature Dispensed Drug: busPIRone (busPIRone 10 mg oral tablet), Take 1 tablet by mouth twice daily as needed Quantity: 60 tab(s) Days Supply: 30 Refills: 0 Substitutions Allowed Notes from Pharmacy: [facility] 09-19-2024 History of Presen t illness Narrative Reason for Appointment: Patient ID: Lauro Pinto is a 49 y.o. female who presents for Vaginal Bleeding and anemia Patient presents today for Acute Visit. and Consult appointment. MEDICATIONS Current Outpatient Medications Medication Instructions Cariprazine HCl (Vraylar) 1.5 MG capsule 1 capsule, Daily dicyclomine (BENTYL) 20 mg, Every 6 hours ferrous gluconate (FERGON) 324 mg, Daily with breakfast levothyroxine (SYNTHROID, LEVOXYL) 200 mcg, Oral, Daily levothyroxine (SYNTHROID, LEVOXYL) 50 mcg, Oral, Daily meclizine (ANTIVERT) 25 mg, 3 times daily PRN meloxicam (MOBIC) 7.5 mg, Daily mirtazapine (REMERON) 30 mg, Nightly omeprazole (PRILOSEC) 40 mg, Daily ALLERGIES No Known Allergies PROBLEMS Active Ambulatory Problems Diagnosis Date Noted No Active Ambulatory Problems Resolved Ambulatory Problems Diagnosis Date Noted No Resolved Ambulatory Problems Past Medical History: Diagnosis Date Dietary counseling and surveillance Morbid obesity with body mass index (BMI) of 40.0 to 49.9 ([facility]) Papillary thyroid carcinoma ([facility]) 07/2021 Post-surgical hypothyroidism ([facility]) Vitamin D deficiency, unspecified HISTORY PAST MEDICAL HISTORY SOCIAL HISTORY Past Medical History: Diagnosis Date Dietary counseling and surveillance Morbid obesity with body mass index (BMI) of 40.0 to 49.9 ([facility]) Papillary thyroid carcinoma ([facility]) 07/2021 left side Jul 2021, Completion sx November 2021 Post-surgical hypothyroidism ([facility]) Vitamin D deficiency, unspecified Social History Tobacco Use Smoking status: Never Smokeless tobacco: Never Substance Use Topics Alcohol use: Not on file Drug use: Not on file FAMILY HISTORY Family History Problem Relation Name Age of Onset Heart attack Sister Cancer Maternal Grandmother Heart failure Maternal Grandfather SURGICAL HISTORY Past Surgical History: Procedure Laterality Date APPENDECTOMY BACK SURGERY COLONOSCOPY FOOT SURGERY Right KNEE SURGERY THYROIDECTOMY, PARTIAL Left 07/2021 TONSILLECTOMY TOTAL THYROIDECTOMY Right 11/2021 Papillary thyroid cancer TUBAL LIGATION UMBILICAL HERNIA REPAIR US GUIDED FINE PERCUTANEOUS ASPIRATION 11/14/2020 US GUIDED FINE PERCUTANEOUS ASPIRATION 11/14/2020 REVIEW OF SYSTEMS Review of Systems: Review of Systems Constitutional: Negative. HENT: Negative. Eyes: Negative. Respiratory: Negative. Cardiovascular: Negative. Gastrointestinal: Negative. Genitourinary: Positive for menstrual problem. Musculoskeletal: Negative. Skin: Negative. Neurological: Negative. All other systems reviewed and are negative. Hematological: Negative. Endocrine: Negative. Allergic/Immunologic: Negative. OBJECTIVE Objective: Physical Exam Constitutional: Appearance: Normal appearance. She is well-developed. Cardiovascular: Rate and Rhythm: Normal rate and regular rhythm. Pulmonary: Effort: Pulmonary effort is normal. Breath sounds: Normal breath sounds. Abdominal: General: Bowel sounds are normal. There is no distension. Palpations: Abdomen is soft. Tenderness: There is no abdominal tenderness. There is no guarding or rebound. Musculoskeletal: General: No swelling. Normal range of motion. Right lower leg: No edema. Left lower leg: No edema. Neurological: Mental Status: She is alert and oriented to person, place, and time. Skin: General: Skin is warm and dry. Psychiatric: Mood and Affect: Mood normal. Behavior: Behavior normal. Vitals and nursing note reviewed. Exam conducted with a publication editor present. Vitals: Estimated body mass index is 38.37 kg/m as calculated from the following: Height as of this encounter: 6' 1 . Weight as of this encounter: 290 lb 12.8 oz. BP: 120/70 Patient's last menstrual period was 09/16/2023. ASSESSMENT & PLAN ICD-10-CM 1. Dysfunctional uterine bleeding N93.8 2. Iron deficiency anemia, unspecified iron deficiency anemia type D50.9 Pt presents as a referral for AUB and anemia. Pt last hemoglobin was 8.6. Pt on iron. Pt given ultrasound to have obtained. Discussed all options with pt in detail mirena vs endometrial ablation. Pt desires surgical management- pt to be scheduled for Endometrial ablation pt to return in preop/embx. Documented by Lotus Bailey LPN on behalf of: Jorge Aguilar DO documented in this encounter [facility] 09-11-2024 History of Presen t illness Narrative Lauro Pinto is a 49 y.o. female Thi Stephens MD presents with chief complaint of No chief complaint on file. HPI: IM : 09/2024 follow up visit on 09/11/2024 on 300 mcg daily, lab on 07/2024 TSH 0.02, FT4 1.62(0.61-1.6), we saw her with tele, clinically he she feels hyper IM : 03/2024 follow up visit on 03/08/2024 on 300 mcg daily, lab on 03/2024 TSH 0.39, FT4 1.17(0.61-1.6), FT3 3.30(2.5-3.9). we saw her with tele. IM : 08/2023 follow up visit on 08/25/2023 on 250 mcg daily, lab on 08/2023 TSH 13, FT4 1.39(0.61-1.6), FT3 2.71(2.5-3.9). IM : 08/2022 follow up visit on 08/18/2022 on 200+78=971 mcg daily. no new lab yet. HPI: 01/2022 New patient sent from Dr. Edy Dominguez, the surgeon, with the surgery for her twice in [facility] in [place], first one in left lobe for thyroid cancer, papillary, in July 2021. She does not remember if had been told if she needed radioactive treatment. Then, completion surgery done in November 2021, and ultrasound done of that, no lymphadenopathy. She is currently on 200 Euthyrox. She takes it without other medication. The pathology report on her right side normal. I do not have the pathology report left side. [id number], largest foci 0.8 cm. SUBJECTIVE: MEDICATIONS: Current Outpatient Medications Medication Instructions amitriptyline (ELAVIL) 100 mg, Nightly calcium carbonate (Os-Chris) 1250 (500 Ca) MG tablet 1 tablet, Oral, 2 times daily Cariprazine HCl (Vraylar) 1.5 MG capsule 1 capsule, Oral, Daily cholecalciferol (VITAMIN D-3) 5,000 Units, Oral, Daily RT dicyclomine (BENTYL) 20 mg, Every 6 hours docusate sodium (Colace) 100 MG capsule 1 capsule, Oral, 2 times daily PRN levothyroxine (SYNTHROID, LEVOXYL) 200 mcg, Oral, Daily levothyroxine (SYNTHROID, LEVOXYL) 50 mcg, Oral, Daily omeprazole (PRILOSEC) 40 mg, Oral, Daily sertraline (Zoloft) 25 MG tablet 1 tablet, Oral, Daily ALLERGIES: No Known Allergies Past Medical History: Diagnosis Date Dietary counseling and surveillance Morbid obesity with body mass index (BMI) of 40.0 to 49.9 (CMS/HCC) Papillary thyroid carcinoma (CMS/HCC) 07/2021 left side Jul 2021, Completion sx November 2021 Post-surgical hypothyroidism (CMS/HCC) Vitamin D deficiency, unspecified Past Surgical History: Procedure Laterality Date THYROIDECTOMY, PARTIAL Left 07/2021 TOTAL THYROIDECTOMY Right 11/2021 Papillary thyroid cancer US GUIDED FINE PERCUTANEOUS ASPIRATION 11/14/2020 US GUIDED FINE PERCUTANEOUS ASPIRATION 11/14/2020 REVIEW OF SYMPTOMS: 14 POINT OF SYSTEM REVIEWED AND NEGATIVE OBJECTIVE: Visit Vitals Smoking Status Never ASSESSMENT AND PLAN: Assessment/Plan Diagnoses and all orders for this visit: Postoperative hypothyroidism (CMS/HCC) - levothyroxine (Synthroid, Levoxyl) 200 MCG tablet; Take 1 tablet (200 mcg) by mouth Daily - levothyroxine (Synthroid, Levoxyl) 50 MCG tablet; Take 1 tablet (50 mcg) by mouth Daily - Thyroglobulin; Future - Thyroglobulin Antibody; Future - T3, free; Future - T4, free; Future - TSH; Future Overcorrected in July/2024, I will cut the dose to 250 mcg daily. Papillary thyroid carcinoma (CMS/HCC) - Thyroglobulin; Future - Thyroglobulin Antibody; Future - T3, free; Future - T4, free; Future - TSH; Future thyroid cancer, done completion in two surgeries, first one in July 2021 showing papillary thyroid cancer, then they do completion surgery in November 2021 for the right side. Vitamin D deficiency Encounter for dietary consultation Diet and exercise reviewed with the patient Class 3 severe obesity due to excess calories without serious comorbidity with body mass index (BMI) of 40.0 to 44.9 in adult (CMS/HCC) Follow up in about 3 months (around 12/10/2024). documented in this encounter [facility] 09-07-2024 History of Presen t illness Narrative [facility] [address] [place] [address] Patient: Lauro Pinto Sex: female : 1975 Age: 49 y.o. PCP: TONEY MONTOYA DO 09/07/2024 Lauronathen Pinto is here for a(n) post procedure follow up 08/11/2024 bilateral sacroiliac injection with 70% relief that continues. Pain is the worst to thoracic spine. The pain is the worst with lying down. Date of onset of pain: 1993 , pain has lasted greater than 3 months. Pain scale before treatment: 6/10 Pre-op pain score: 6/10 Post-op pain score: 6/10 Percentage of relief after and duration: see above Pain scale after treatment: 2-11/13 Chief Complaint Patient presents with Back Pain HPI: PT/Water therapy (06/2021) Back: 02/06/22 Bilateral L4/5, 5/1 MBB with 75% relief x1 week Bilat L4/5 5/1 MBB 03/20/2022 80% relief x few days. 04/24/2022 right then 05/15/2022 Left L4/5 L5/1 RFA w/ 25 % relief Bilat SI joint injection 08/07/2022 80% relief that continues. 07/09/23 Bilateral SI injection with 30% temporary relief. 08/11/2024 bilateral sacroiliac injection with 70% relief that continues. Back Pain This is a chronic (1993) problem. The current episode started more than 1 year ago. The problem occurs constantly. Progression since onset: SI pain has decreased. The pain is present in the lumbar spine, sacro-iliac and thoracic spine. The quality of the pain is described as aching and cramping (sharp). The pain is at a severity of 3/10 (2-3/10 for lower back, 3/10 thoracic - increases to 8/10 with lying down). The pain is moderate. The pain is Worse during the day (thoracic pain is the worst with lying). The symptoms are aggravated by sitting, standing, position, lying down, twisting and bending. Stiffness is present In the morning (getting up from lying position). Pertinent negatives include no bladder incontinence, bowel incontinence, chest pain, fever, leg pain, numbness, tingling or weakness. Risk factors include history of steroid use, poor posture and obesity. She has tried ice, heat, bed rest, home exercises, NSAIDs, muscle relaxant and walking (Previous injections, PT/Water therapy (06/2021), Nsaidsx2, tizanadine, tyl, topical, mobic, tramadol) for the symptoms. The treatment provided mild relief. Knee Pain Incident onset: Mid Aug 2022. Incident location: n/a. There was no injury mechanism. The pain is present in the left knee (Lt Calf). The quality of the pain is described as burning, aching and stabbing (stiff, locking up, popping). The pain is at a severity of 7/10. The pain is moderate. The pain has been Constant since onset. Associated symptoms include an inability to bear weight, a loss of motion and muscle weakness (Lt knee). Pertinent negatives include no numbness or tingling. She reports no foreign bodies present. The symptoms are aggravated by movement, palpation and weight bearing. She has tried ice, heat, non-weight bearing and NSAIDs (ice, heat, bed rest, home exercises, NSAIDs, muscle relaxant and walking (Previous injections, PT/Water therapy (06/2021), Nsaidsx2, tizanadine, tyl, topical, mobic, tramadol, Post Lt Knee Arthroscopy 11/2022) for the symptoms. The treatment provided mild relief. The effect of pain on patient's ADLS: Moderate Impairment. Past Medical History: Diagnosis Date Asthma Chronic back pain Chronic pain disorder Constipation Depression GERD (gastroesophageal reflux disease) Low back pain Lumbosacral disc disease Migraine Neuropathy Obesity Osteoarthritis Thyroid cancer (CMS-HCC) left side but both sides removed Past Surgical History: Procedure Laterality Date APPENDECTOMY FOOT SURGERY x4; plantar fascitis and tarsal tunnel INJECTION BLOCK NERVE MEDIAL BRANCH Bilat L 4/5, 5/ Bilateral 03/20/2022 Performed by Zeeshan Perry MD at [facility] INJECTION BLOCK NERVE MEDIAL BRANCH Bilat L 4/5,/ Bilateral 02/06/2022 Performed by Zeeshan Perry MD at [facility] INJECTION BLOCK SACROILIAC JOINT Bilateral 08/11/2024 Performed by Zeeshan Perry MD at [facility] INJECTION BLOCK SACROILIAC JOINT Bilateral 07/09/2023 Performed by Zeeshan Perry MD at [facility] INJECTION BLOCK SACROILIAC JOINT Bilateral 08/07/2022 Performed by Zeeshan Perry MD at [facility] INJECTION MEDIAL BRANCH NERVE BLOCK Bialteral L 3/4, 4/5 Medial Branhc Block X 1 Bilateral 05/07/2017 Performed by Zeeshan Perry MD at [facility] INJECTION MEDIAL BRANCH NERVE BLOCK BILATERAL L3/4, 4/5 Bilateral 10/22/2017 Performed by Zeeshan Perry MD at [facility] KNEE ARTHROSCOPY W/ MENISCECTOMY Left 11/2022 OSTEOTOMY KELTON PROCEDURE METATARSAL Right 02/11/2018 Performed by Hector Watson DPM at [facility] RADIOFREQUENCY ABLATION SPINAL left L 4/5, 5/ Left 05/15/2022 Performed by Zeeshan Perry MD at [facility] RADIOFREQUENCY ABLATION SPINAL right L 4/5,5/ Right 04/24/2022 Performed by Zeeshan Perry MD at [facility] RADIOFREQUENCY ABLATION SPINAL: right L34 45 rfa Right 03/11/2018 Performed by Zeeshan Perry MD at [facility] SPINE SURGERY 09/06/2009 L5/S1 diskectomy and fusion THYROID LOBECTOMY TONSILLECTOMY TOTAL THYROIDECTOMY Bilateral TUBAL LIGATION UMBILICAL HERNIA REPAIR No Known Allergies Family History Problem Relation Age of Onset Diabetes Mother Cancer Maternal Grandmother No Known Problems Father Social History Socioeconomic History Marital status: Single Spouse name: Not on file Number of children: Not on file Years of education: Not on file Highest education level: Not on file Occupational History Not on file Tobacco Use Smoking status: Never Smokeless tobacco: Never Vaping Use Vaping status: Never Used Substance and Sexual Activity Alcohol use: Yes Comment: Socially Drug use: No Sexual activity: Defer Partners: Male Other Topics Concern Not on file Social History Narrative Not on file Social Drivers of Health Financial Resource Strain: Not on file Food Insecurity: No Food Insecurity (05/18/2024) Hunger Screening Food Insecurity - Worry: Never True Food Insecurity - Inability: Never True Transportation Needs: Not on file Physical Activity: Not on file Stress: Not on file Social Connections: Not on file Interpersonal Safety: Not on file Housing Instability: Not on file Review of Systems Constitutional: Negative for fever. Cardiovascular: Negative for chest pain. Gastrointestinal: Negative for bowel incontinence. Genitourinary: Negative for bladder incontinence. Musculoskeletal: Positive for back pain. Neurological: Negative for tingling, weakness and numbness. Vital Signs: BP 126/83 Pulse 80 Resp 16 Ht 185.4 cm (6' 1 ) Wt 132 kg (291 lb) SpO2 100% BMI 38.39 kg/m Physical Exam: GENERAL - Healthy patient that appears stated age. HEENT - Normocephalic / Atraumatic, Extraoccular movements intact, trachea midline, thyroid within normal limits. CV - pulse regular, Warm extremities with appropriate color of nailbeds. RESP - No obvious wheezing, No Shortness of Breath, No overexertion response to exam maneuvers. COORDINATION - remains intact. PSYCH - Alert and Oriented x4, Attentive and appropriate, constitutionally normal, displays normal mood and affect per situation, answered questions appropriately during examination, demonstrated appropriate attention during discussion, demonstrated appropriate cognitive reasoning and understanding of the medical condition by asking appropriate questions regarding the diagnosis and risks/benefits/alternatives of treatment modalities. No obvious deficits in memory, reasoning, or intellect. Lumbar: SKIN - No rashes or bruising in the area of the patient s pain. LYMPH NODES - demonstrate no obvious enlargement. EXTREMITIES - Lower extremities are warm, with minimal edema and palpable pulses. Tenderness to palpation noted in the lumbar spine and paraspinal musculature. Pain is elicited with flexion, extension, and lateral rotation of the lumbar spine. Range of motion is diminished with these motions due to pain. Facet palpation is noted to be somewhat tender and facet loading maneuvers are mildly positive, but not concordant with the patient s normal pain complaints. STRENGTH - noted to be 5 out of 5 all muscle groups bilateral lower extremities including muscles involving hip flexion and abduction, knee flexion and extension, as well as foot dorsiflexion and plantarflexion. No notable atrophy, fasciculations or spasm. SENSORY - No notable sensory deficits in the bilateral lower extremities to touch or pinprick in all dermatomal distributions. Straight Leg Raise is negative Gait is normal. Assessment/Treatment Plan: Lauro was seen today for back pain. Diagnoses and all orders for this visit: Lumbosacral spondylosis without myelopathy Monitor Follow up 2 months The medications prescribed have been reviewed for medication interactions/contraindications and/or for upcoming procedures: continue current medication regimen without any changes. DISCUSSION: Treatment options discussed with patient and all questions answered to patient's satisfaction. Prescribed medication that requires intensive monitoring for toxicity We do not currently prescribe any controlled substance from this practice. It does appear that the patient benefited from the previous injection and the benefit has continued through this visit. At this time, we will monitor the patient s symptoms from an interventional standpoint and consider another injection in the future if the patient s symptoms return or intensify severely. The patient was made aware that they should call if symptoms worsen or if their pain begins to have a negative impact on their quality of life and activities of daily living again. The spine model was demonstrated and MRI was reviewed and used to explain the condition. OARRS: Reviewed. Scribe Statement: Scribed for and in the presence of JOAN JOHN by Zainab Robles CNA. Provider Statement: IKYLER PA, personally performed the services described in the documentation, as scribed by Zainab Robles CNA in my presence, and it is both accurate and complete. Zainab Robles CNA 09/07/24 [id number] documented in this encounter [facility] 08-09-2024 Miscellaneous Notes Pt calls asking if she can still have bilateral SI joint injection this Saturday 08/11 with MAC; as she currently has a cold, symptoms include cough, runny nose, sore throat, hoarseness, denies fevers; has SOB but she relates it to low hemoglobin. Advised pt to call PCP to address sick symptoms and I will ask provider in this office if she can proceed with procedure. PVU noted documented in this encounter [facility] 08-09-2024 Telephone encounter Note Pt calls asking if she can still have bilateral SI joint injection this Saturday 08/11 with MAC; as she currently has a cold, symptoms include cough, runny nose, sore throat, hoarseness, denies fevers; has SOB but she relates it to low hemoglobin. Advised pt to call PCP to address sick symptoms and I will ask provider in this office if she can proceed with procedure. PVU [facility] 08-09-2024 Telephone encounter Note noted [facility] 07-27-2024 Note [id number] [id number] SURGERY Clinical Discharge Summary PERSON INFORMATION Name LAURO PINTO Age 49 Years 1975 Sex FEMALE Language Divehi TONEY BARRAGAN DO Marital Status Single [facility] Service Ambulatory Surgery Acct# Arrival 07/25/2024 06:22:59 Visit Reason SURGERY - EGD AND COLONOSCOPY - ANEMIA AND FAMILY HX COLON CANCER Acuity LOS 019 02:30 Address: [address] [place] [id number] Comment: PROVIDER INFORMATION VITALS INFORMATION Vital Sign Triage Latest Temp Oral Temp Temporal Temp Intravascular Temp Axillary Temp Rectal 02 Sat 100 % 97 % Respiratory Rate Peripheral Pulse Rate Apical Heart Rate Blood Pressure / 88 mmHg / 69 mmHg Comment: MEDICAL INFORMATION Allergy Info: No known allergies Prescriptions Given: busPIRone (busPIRone 10 mg oral tablet) 1 tab(s) Oral BID prn. Refills: 2. citalopram (citalopram 20 mg oral tablet) 1 tab(s) Oral (given by mouth) every day. Refills: 2. dicyclomine (dicyclomine 20 mg oral tablet) 1 tab(s) Oral (given by mouth) 4 times a day. Refills: 2. levothyroxine 300 Microgram Oral (given by mouth) every day. mirtazapine (Remeron 30 mg oral tablet) 1 tab(s) Oral (given by mouth) once a day (at bedtime). Refills: 2. omeprazole (omeprazole 40 mg oral delayed release capsule) 1 cap(s) Oral (given by mouth) every day. Refills: 5. polyethylene glycol 3350 (MiraLax oral powder for reconstitution) 17 gram Oral (given by mouth) every day. dissolve in water before taking. Refills: 1. Medication List: Medications to Continue That Have Not Changed Other Medications busPIRone (busPIRone 10 mg oral tablet) 1 tab(s) Oral BID prn. Refills: 2. citalopram (citalopram 20 mg oral tablet) 1 tab(s) Oral (given by mouth) every day. Refills: 2. dicyclomine (dicyclomine 20 mg oral tablet) 1 tab(s) Oral (given by mouth) 4 times a day. Refills: 2. levothyroxine 300 Microgram Oral (given by mouth) every day. mirtazapine (Remeron 30 mg oral tablet) 1 tab(s) Oral (given by mouth) once a day (at bedtime). Refills: 2. omeprazole (omeprazole 40 mg oral delayed release capsule) 1 cap(s) Oral (given by mouth) every day. Refills: 5. polyethylene glycol 3350 (MiraLax oral powder for reconstitution) 17 gram Oral (given by mouth) every day. dissolve in water before taking. Refills: 1. Medications to Continue That Have Not Changed Other Medications busPIRone (busPIRone 10 mg oral tablet) 1 tab(s) Oral BID prn. Refills: 2. citalopram (citalopram 20 mg oral tablet) 1 tab(s) Oral (given by mouth) every day. Refills: 2. dicyclomine (dicyclomine 20 mg oral tablet) 1 tab(s) Oral (given by mouth) 4 times a day. Refills: 2. levothyroxine 300 Microgram Oral (given by mouth) every day. mirtazapine (Remeron 30 mg oral tablet) 1 tab(s) Oral (given by mouth) once a day (at bedtime). Refills: 2. omeprazole (omeprazole 40 mg oral delayed release capsule) 1 cap(s) Oral (given by mouth) every day. Refills: 5. polyethylene glycol 3350 (MiraLax oral powder for reconstitution) 17 gram Oral (given by mouth) every day. dissolve in water before taking. Refills: 1. Medications to Continue That Have Not Changed Other Medications busPIRone (busPIRone 10 mg oral tablet) 1 tab(s) Oral BID prn. Refills: 2. citalopram (citalopram 20 mg oral tablet) 1 tab(s) Oral (given by mouth) every day. Refills: 2. dicyclomine (dicyclomine 20 mg oral tablet) 1 tab(s) Oral (given by mouth) 4 times a day. Refills: 2. levothyroxine 300 Microgram Oral (given by mouth) every day. mirtazapine (Remeron 30 mg oral tablet) 1 tab(s) Oral (given by mouth) once a day (at bedtime). Refills: 2. omeprazole (omeprazole 40 mg oral delayed release capsule) 1 cap(s) Oral (given by mouth) every day. Refills: 5. polyethylene glycol 3350 (MiraLax oral powder for reconstitution) 17 gram Oral (given by mouth) every day. dissolve in water before taking. Refills: 1. Comment: Lab and Radiology Results Laboratory or Other Results This Visit (last charted value for your 07/25/2024 visit) Chemistry 07/25/2024 6:31 AM U Preg: Negative DIET & ACTIVITY Patient Activity Level: Patient Diet: Patient Activity Restrictions: DISCHARGE INFORMATION Discharge Disposition: Discharge Location: DEPART REASON INCOMPLETE INFORMATION PATIENT EDUCATION INFORMATION Instructions: Colonoscopy, Adult, Care After Follow up: With: Address: When: [place] [address] [place] [address], [address] [place] [id number] Business (1) , only if needed With: Address: When: TONEY MONTOYA DIAGNOSIS 1:Microcytic anemia Comment: PHYS DOC NOTES [facility] 07-07-2024 Note Entered by MILTON MONTOYA DO on July 07, 2024 16:49:08 EDT From: TONEY MONTOYA DO To: [place] [id number] Sent: 07/07/2024 16:49:08 EDT Subject: Medication Management Submitted: Complete:amitriptyline (amitriptyline 100 mg oral tablet) Signed by TONEY MONTOYA DO 07/07/2024 16:49:00 EDT Approved with modifications: amitriptyline (Amitriptyline HCl 100 MG Oral Tablet) TAKE 1 TABLET BY MOUTH ONCE DAILY AT BEDTIME Qty: 30 tab(s) Days Supply: 30 Refills: 5 Substitutions Allowed Route To Pharmacy - [place] [id number] From: [place] [id number] To: TONEY MONTOYA DO Sent: July 07, 2024 4:41:06 AM CDT Subject: Medication Management Due: July 08, 2024 12:19:20 AM CDT On Hold Pending Signature Dispensed Drug: amitriptyline (amitriptyline 100 mg oral tablet), TAKE 1 TABLET BY MOUTH ONCE DAILY AT BEDTIME Quantity: 30 tab(s) Days Supply: 30 Refills: 0 Substitutions Allowed Notes from Pharmacy: [facility] 05-29-2024 Miscellaneous Notes Insurance called requesting further clinical information regarding procedure that was requested. They stated Case not meeting criteria for requested procedure because: The notes do not show that the previous injection met requirements for 50% and 3 months duration of relief. How do you want to proceed? Chart please Please call pt and ask how much relief she had after SI injection last year. I can do appeal if she had greater than 50%. Called patient and she reported that 30% was a mistake. She claims she received at least 50% temporary relief. May appeal: It is noted that the patient last completed a bilateral SI joint injection in July of 2023 which resulted in at least 50% pain reduction that led to considerable improvements in ADL performance and quality of life. This result lasted for over 6 months. As a result, it is felt that repeat SI injection is medically necessary. Date of service changed for patient. Could not change date of service with insurance so a new authorization needed to be submitted. New auth is pending further medical review. Insurance states The notes do not show Low back pain below L5 without radiculopathy. Clinicals have been submitted. Waiting response from insurance. Auth came back approved. documented in this encounter [facility] 05-29-2024 Telephone encounter Note Insurance called requesting further clinical information regarding procedure that was requested. They stated Case not meeting criteria for requested procedure because: The notes do not show that the previous injection met requirements for 50% and 3 months duration of relief. How do you want to proceed? [facility] 05-29-2024 Telephone encounter Note Chart please [facility] 05-29-2024 Telephone encounter Note Please call pt and ask how much relief she had after SI injection last year. I can do appeal if she had greater than 50%. [facility] 05-29-2024 Telephone encounter Note Called patient and she reported that 30% was a mistake. She claims she received at least 50% temporary relief. [facility] 05-29-2024 Telephone encounter Note May appeal: It is noted that the patient last completed a bilateral SI joint injection in July of 2023 which resulted in at least 50% pain reduction that led to considerable improvements in ADL performance and quality of life. This result lasted for over 6 months. As a result, it is felt that repeat SI injection is medically necessary. [facility] 05-29-2024 Telephone encounter Note Date of service changed for patient. Could not change date of service with insurance so a new authorization needed to be submitted. New auth is pending further medical review. Insurance states The notes do not show Low back pain below L5 without radiculopathy. Clinicals have been submitted. Waiting response from insurance. [facility] 05-29-2024 Telephone encounter Note Auth came back approved. [facility] 05-18-2024 History of Presen t illness Narrative [facility] [address] [place] [address] Patient: Lauro Pinto Sex: female : 1975 Age: 49 y.o. PCP: TONEY MONTOYA, 05/18/2024 Lauro Pinto is here for a(n) follow up for chronic low back and knee pain. Knee pain is currently being treated by Dr paiz (ortho). Patient requests treatment for pain across low back worse on right side and occasionally gets burning feeling on thigh. Chief Complaint Patient presents with Back Pain HPI: PT/Water therapy (06/2021) Back: 02/06/22 Bilateral L4/5, 5/1 MBB with 75% relief x1 week Bilat L4/5 5/1 MBB 03/20/2022 80% relief x few days. 04/24/2022 right then 05/15/2022 Left L4/5 L5/1 RFA w/ 25 % relief Bilat SI joint injection 08/07/2022 80% relief that continues. 07/09/23 Bilateral SI injection with 30% temporary relief. Back Pain This is a chronic (1993) problem. The current episode started more than 1 year ago. The problem occurs constantly. The problem is unchanged. The pain is present in the lumbar spine, sacro-iliac and thoracic spine (across low back but right side is worse). The quality of the pain is described as aching, cramping and burning. Radiates to: bilateral anterior ankles lisha horses. Pain scale: 5/10 today; can reach 8/10. The pain is moderate. The pain is Worse during the day (worse depending on what patient is doing). The symptoms are aggravated by sitting, standing, position, lying down, twisting and bending. Stiffness is present In the morning (getting up from lying position). Associated symptoms include numbness (Daniel hands, Daniel feet), tingling (Daniel hands, Daniel feet) and weakness (Lt Knee). Pertinent negatives include no bladder incontinence, bowel incontinence, chest pain, fever or leg pain. Risk factors include history of steroid use, poor posture and obesity. She has tried ice, heat, bed rest, home exercises, NSAIDs, muscle relaxant and walking (Previous injections, PT/Water therapy (06/2021), Nsaidsx2, tizanadine, tyl, topical, mobic, tramadol) for the symptoms. The treatment provided mild relief. Knee Pain Incident onset: Mid Aug 2022. Incident location: n/a. There was no injury mechanism. The pain is present in the left knee (Lt Calf). The quality of the pain is described as burning, aching and stabbing (stiff, locking up, popping). The pain is at a severity of 7/10. The pain is moderate. The pain has been Constant since onset. Associated symptoms include an inability to bear weight, a loss of motion, muscle weakness (Lt knee), numbness (Daniel hands, Daniel feet) and tingling (Daniel hands, Daniel feet). She reports no foreign bodies present. The symptoms are aggravated by movement, palpation and weight bearing. She has tried ice, heat, non-weight bearing and NSAIDs (ice, heat, bed rest, home exercises, NSAIDs, muscle relaxant and walking (Previous injections, PT/Water therapy (06/2021), Nsaidsx2, tizanadine, tyl, topical, mobic, tramadol, Post Lt Knee Arthroscopy 11/2022) for the symptoms. The treatment provided mild relief. The effect of pain on patient's ADLS: Moderate Impairment. Past Medical History: Diagnosis Date Asthma Chronic back pain Chronic pain disorder Constipation Depression GERD (gastroesophageal reflux disease) Low back pain Lumbosacral disc disease Migraine Neuropathy Obesity Osteoarthritis Thyroid cancer (CMS-HCC) left side but both sides removed Past Surgical History: Procedure Laterality Date APPENDECTOMY FOOT SURGERY x4; plantar fascitis and tarsal tunnel INJECTION BLOCK NERVE MEDIAL BRANCH Bilat L 12/09, 01/04 Bilateral 03/20/2022 Performed by Zeeshan Perry MD at [facility] INJECTION BLOCK NERVE MEDIAL BRANCH Bilat L 4/5,5/1 Bilateral 02/06/2022 Performed by Zeeshan Perry MD at [facility] INJECTION BLOCK SACROILIAC JOINT Bilateral 07/09/2023 Performed by Zeeshan Perry MD at [facility] INJECTION BLOCK SACROILIAC JOINT Bilateral 08/07/2022 Performed by Zeeshan Perry MD at [facility] [place] MEDIAL BRANCH NERVE BLOCK Bialteral L 3/4, 4/5 Medial Branhc Block X 1 Bilateral 05/07/2017 Performed by Zeeshan Perry MD at [facility] BARROW MEDIAL BRANCH NERVE BLOCK BILATERAL L3/4, 4/5 Bilateral 10/22/2017 Performed by Zeeshan Perry MD at [facility] KNEE ARTHROSCOPY W/ MENISCECTOMY Left 11/2022 OSTEOTOMY KELTON PROCEDURE METATARSAL Right 02/11/2018 Performed by Hector Watson DPM at [facility] RADIOFREQUENCY ABLATION SPINAL left L 4/5, 5/1 Left 05/15/2022 Performed by Zeeshan Perry MD at [facility] RADIOFREQUENCY ABLATION SPINAL right L 4/5,5/1 Right 04/24/2022 Performed by Zeeshan Perry MD at [facility] RADIOFREQUENCY ABLATION SPINAL: right L34 45 rfa Right 03/11/2018 Performed by Zeeshan Perry MD at [facility] SPINE SURGERY 09/06/2009 L5/S1 diskectomy and fusion THYROID LOBECTOMY TONSILLECTOMY TOTAL THYROIDECTOMY Bilateral TUBAL LIGATION UMBILICAL HERNIA REPAIR No Known Allergies Family History Problem Relation Age of Onset Diabetes Mother Cancer Maternal Grandmother No Known Problems Father Social History Socioeconomic History Marital status: Single Spouse name: Not on file Number of children: Not on file Years of education: Not on file Highest education level: Not on file Occupational History Not on file Tobacco Use Smoking status: Never Smokeless tobacco: Never Vaping Use Vaping status: Never Used Substance and Sexual Activity Alcohol use: Yes Comment: Socially Drug use: No Sexual activity: Defer Partners: Male Other Topics Concern Not on file Social History Narrative Not on file Social Determinants of Health Financial Resource Strain: Not on file Food Insecurity: No Food Insecurity (05/18/2024) Hunger Screening Food Insecurity - Worry: Never True Food Insecurity - Inability: Never True Transportation Needs: Not on file Physical Activity: Not on file Stress: Not on file Social Connections: Not on file Interpersonal Safety: Not on file Housing Instability: Not on file Review of Systems Constitutional: Negative. Negative for chills, fatigue and fever. HENT: Negative. Eyes: Negative. Respiratory: Negative. Negative for cough and shortness of breath. Cardiovascular: Negative. Negative for chest pain. Gastrointestinal: Negative. Negative for bowel incontinence. Endocrine: Negative. Genitourinary: Negative. Negative for bladder incontinence. Musculoskeletal: Positive for back pain. Negative for gait problem. Skin: Negative. Neurological: Positive for tingling (Daniel hands, Daniel feet), weakness (Lt Knee) and numbness (Daniel hands, Daniel feet). Hematological: Negative. Psychiatric/Behavioral: Negative. Negative for suicidal ideas. Vital Signs: BP 118/85 (BP Site: Left Arm, BP Postition: Sitting) Pulse 71 Resp 20 Ht 185.4 cm (6' 1 ) Wt 131.5 kg (290 lb) BMI 38.26 kg/m Physical Exam: GENERAL - Healthy patient that appears stated age. HEENT - Normocephalic / Atraumatic, Extraoccular movements intact, trachea midline, thyroid within normal limits. CV - pulse regular, Warm extremities with appropriate color of nailbeds. RESP - No obvious wheezing, No Shortness of Breath, No overexertion response to exam maneuvers. COORDINATION - remains intact. PSYCH - Alert and Oriented x4, Attentive and appropriate, constitutionally normal, displays normal mood and affect per situation, answered questions appropriately during examination, demonstrated appropriate attention during discussion, demonstrated appropriate cognitive reasoning and understanding of the medical condition by asking appropriate questions regarding the diagnosis and risks/benefits/alternatives of treatment modalities. No obvious deficits in memory, reasoning, or intellect. Lumbar: SKIN - No rashes or bruising in the area of the patient s pain. LYMPH NODES - demonstrate no obvious enlargement. EXTREMITIES - Lower extremities are warm, with minimal edema and palpable pulses. No significant tenderness to palpation noted in the lumbar spine and paraspinal musculature. Mild pain is elicited with flexion, extension, and lateral rotation of the lumbar spine. Range of motion is not diminished with these motions. Facet palpation is negative for significant pain and facet loading maneuvers elicit only mild pain that is not concordant with the patient s normal pain complaints. STRENGTH - noted to be 5 out of 5 all muscle groups bilateral lower extremities including muscles involving hip flexion and abduction, knee flexion and extension, as well as foot dorsiflexion and plantarflexion. No notable atrophy, fasciculations or spasm. SENSORY - No notable sensory deficits in the bilateral lower extremities to touch or pinprick in all dermatomal distributions. Straight Leg Raise is negative bilaterally. Tenderness to palpation is noted over the Bilateral SacroIliac Joint: Fabere sign (Angel's Test) is significantly positive, as is compression and distraction of the sacroiliac joints, which is consistent with some of the patient's normal pain. Gait is normal. Assessment/Treatment Plan: Lauro was seen today for back pain. Diagnoses and all orders for this visit: Disorder of sacrum - Case request operating room: INJECTION BLOCK SACROILIAC JOINT Bilateral Sacroiliac Joint Injection - under fluoroscopy with the use of contrast dye (unless contraindicated) It is hopeful that the described procedure will provide symptomatic pain relief. It is felt to be medically necessary noting that the patient has tried and failed more conservative modalities of therapy and this is the next most appropriate step. The procedure was described in detail to the patient as well as the potential benefits of pain reduction alongside risks of the procedure and alternatives. Risks were described as including, but not limited to bleeding, infection, nerve damage, spinal cord injury, paralysis, stroke, dural puncture headache, and medication reaction. The patient expressed understanding regarding the risks and benefits and wishes to proceed. Diagnostic SI injections should provide information to confirm that the noted SI Joint arthropathy is the patient s most significant pain generator. If this provides significant but only temporary pain relief, the patient may in the future be a candidate for radiofrequency denervation of the SI joint to provide pain relief for approximately 1 year. Follow up 2 weeks after procedure The medications I have prescribed have been reviewed for medication interactions/contraindications and/or for upcoming procedures: continue current medication regimen without any changes. DISCUSSION: Treatment options discussed with patient and all questions answered to patient's satisfaction. Discussed the rules and regulations surrounding prescription of opioids and compliance at length. Failure to follow the rules and regulation will result in tapering and discontinuation of medications if applicable. Prescribed medication that requires intensive monitoring for toxicity We do not currently prescribe any controlled substance from this practice. It is noted that the patient did have good response from the previously performed procedure. It is felt that the patient would benefit from an additional procedure of the same nature in that the same symptoms have returned. It is hopeful that this additional injection will provide additional benefit and duration when combined with the previous injection. The spine model was demonstrated and MRI was reviewed and used to explain the condition. Chronic conditions not treated during this visit that affected my overall medical decision making: Comorbidity- Obesity The patient does have a comorbid condition of obesity. This will be taken into account in that obesity will contribute to certain pain conditions. It can contribute to pain from degenerative disc disease as well as osteoarthritis of the joints. Many neuropathic symptoms are also amplified due to axial spine loading. Special benefits will also need to be given to procedures. Many procedures are technically more difficult in the light of severe obesity. I will also consider the possibility of undiagnosed obstructive sleep apnea (which often accompanies obesity) when prescribing any narcotic medications. I will weigh the risks and benefits and fully discuss them with the patient for these reasons. Comorbidity- Depression The patient has an ongoing issue with depression and currently feels these symptoms are under control and further feels that appropriate pain management would also help these symptoms. The patient is optimistic about the treatment plan we have laid out. We will continue to monitor these symptoms and remain cogniscent that they may affect the patients perceived improvement from the treatment and willingness to pursue further treatment. At this time the patient appears to be mentally and emotionally stable to undergo procedural and medical therapy. If any warning signs become present, I may refer the patient to a mental health professional for further evaluation. OARRS: Reviewed. Scribe Statement: Scribed for and in the presence of JOAN JOHN by Zainab Robles CNA. Provider Statement: I, JOAN JOHN, personally performed the services described in the documentation, as scribed by Zainab Robles CNA in my presence, and it is both accurate and complete. Zainab Robles CNA 05/18/24 1204 JOAN John 05/18/24 1340 documented in this encounter [employer] 05-18-2024 Instructions Zainab Robles CNA - 05/18/2024 10:45 AM EDT Facet Injection / Medial Branch Block (MBB) / Sacroiliac (SI) Joint Injection / Cluneal NB A facet injection and sacroiliac joint injection are injections of local anesthetic and steroid into a joint in the spine. A medial branch block is similar, but the medication is placed outside the joint space near the nerve that supplies the joint called the medial branch (steroid may or may not be used). You may require multiple injections depending upon how many joints are involved. How Long Will This Procedure Last? The extent and duration of pain relief may depend on the amount of inflammation and how many areas are involved. Other coexisting factors may be responsible for your pain. If your pain goes away for a short time, but then returns, you may be a candidate for radiofrequency ablation (RFA). Activity Be active. Attempt activities and movements that typically cause pain to see if it feels better while doing them. We will give you a pain diary. Please fill this out as directed by your nurse in pre-op. This will help your doctor determine the effectiveness of the injection, and how to proceed. Bring the pain diary with you to your follow-up appointment. Medications You should not take your pain medications for 4-6 hours before or after the injection in order to properly diagnose if the injection provides adequate relief. Resume your routine medications after your procedure. You may resume blood thinners per your regular schedule after the procedure. If you received sedation: If you received sedation for your procedure, you may feel sleepy or not yourself for several hours today. For the next 24 hours avoid activities that requires alertness or coordination. This includes: Driving or operating heavy machinery Using power tools Consuming alcohol Do not make important or complex decisions or sign legal documents in the next 24 hours. Other Instructions: If you feel severe pain at the injection site with swelling and redness, increased leg weakness, a fever of 101 or higher, headache (or worsening headache), changes in vision or urinary retention: Please call the office at , or have someone take you to the nearest emergency room. Tell the emergency room staff that you recently had a spine injection. A doctor must evaluate you for bleeding and injection complications. If you lose control over bowel, bladder, or legs: Go to the nearest emergency room. documented in this encounter [employer] 04-11-2024 Note Entered by MILTON MONTOYA DO on April 11, 2024 07:45:16 EDT From: TONEY MONTOYA DO To: [place] [id number] Sent: 04/11/2024 07:45:16 EDT Subject: Medication Management Submitted: Complete:dicyclomine (dicyclomine 20 mg oral tablet) Signed by TONEY MONTOYA DO 04/11/2024 07:45:00 EDT Approved with modifications: dicyclomine (Dicyclomine HCl 20 MG Oral Tablet) Take 1 tablet by mouth 4 times daily Qty: 120 tab(s) Days Supply: 30 Refills: 2 Substitutions Allowed Route To Pharmacy - [place] [id number] From: [place] [id number] To: TONEY MONTOYA DO Sent: April 11, 2024 4:41:15 AM CDT Subject: Medication Management Due: April 12, 2024 12:06:30 AM CDT On Hold Pending Signature Dispensed Drug: dicyclomine (dicyclomine 20 mg oral tablet), Take 1 tablet by mouth 4 times daily Quantity: 120 tab(s) Days Supply: 30 Refills: 0 Substitutions Allowed Notes from Pharmacy: [facility] 01-14-2024 Note Entered by MILTON MONTOYA DO on January 14, 2024 18:17:35 EDT From: TONEY MONTOYA DO To: [place] [id number] Sent: 01/14/2024 18:17:35 EDT Subject: Medication Management Submitted: Complete:amitriptyline (amitriptyline 100 mg oral tablet) Signed by TONEY MONTOYA DO 01/14/2024 18:17:00 EDT Approved with modifications: amitriptyline (Amitriptyline HCl 100 MG Oral Tablet) TAKE 1 TABLET BY MOUTH ONCE DAILY AT BEDTIME Qty: 30 tab(s) Days Supply: 30 Refills: 5 Substitutions Allowed Route To Pharmacy - [id number] From: [facility] To: TONEY MONTOYA DO Sent: January 14, 2024 8:12:24 AM CDT Subject: Medication Management Due: January 15, 2024 12:11:58 AM CDT On Hold Pending Signature Dispensed Drug: amitriptyline (amitriptyline 100 mg oral tablet), TAKE 1 TABLET BY MOUTH ONCE DAILY AT BEDTIME Quantity: 30 tab(s) Days Supply: 30 Refills: 0 Substitutions Allowed Notes from Pharmacy: [facility] 12-05-2021 Note Send Summary: Discharge Summary Providers: Provider RoleProvider Name Edy Morrow Jason PrimaryHouse, Charles Note Recipients: Toney Montoya MD - [id number] [] Edy Dominguez MD Discharge: Summary: Admission Date: .04-Dec-2021 05:12:00 Discharge Date: 05-Dec-2021 Admission Reason: thyroid cancer Final Discharge Diagnoses: thyroid cancer Procedures: Date: 04-Dec-2021 10:30:00 Procedure Name: 1. 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 She presented on 12/04 for completion thyroidectomy. Transferred to PACU post-operatively for monitoring, then to regular nursing floor. Post-op course was uncomplicated. PACU PTH and calcium levels were normal. Diet was advanced as tolerated. IV medication transitioned to oral as diet advanced. On the day of discharge, the pt was tolerating a diet, pain was controlled on PO pain medication, and ambulating and voiding spontaneously. They were discharged home in stable condition and will follow up as an outpatient. Discharge Information: and Continuing Care: Lab Results - Pending: Magnesium, Serum Drawn at 05-Dec-2021 05:24:00 Renal Function Panel Drawn at 05-Dec-2021 05:24:00 Parathormone Intact, Serum Drawn at 05-Dec-2021 05:24:00 Surgical Pathology Drawn at 04-Dec-2021 09:52:00 Radiology Results - Pending: None Discharge Instructions: Activity: activity as tolerated. May shower.. do not submerge wound May not drive while taking narcotics. No pushing, pulling, or lifting objects greater than 10 pounds for 2 week(s). Weight-bearing Instructions: full weight bearing. Nutrition/Diet: regular Wound Care: Wound Site: Neck Wound Type: surgical incision Other Instructions: You have small paper tapes over small surgery incisions. These tapes may get wet in shower, pat dry. The strips may become loose and fall off on their own, any strips that remain will be removed at your follow up visit. Additional Orders: Additional Instructions: If you have numbness or tingling of the finger tips or around the mouth, please take calcium carbonate and call Dr. Dominguez's office. This may be a sign of low calcium in the blood. Please let us know if you have any changes in speech, swallow, or breathing or any moderate to severe swelling of the front of the neck. Infectious Disease: PPD Status: not given MRSA: no VRE: no C. Diff: no Other Resistant Organism: no Isolation Type: none Follow Up Appointments: Follow-Up Appointment 01: Physician/Dept/Service: Dr. Dominguez Reason for Referral: Postoperative (POV) Call to Schedule in: 2 weeks , please call with any questions Discharge Medications: Home Medication omeprazole 20 mg oral delayed release capsule - 1 cap(s) orally once a day Vraylar 1.5 mg oral capsule - 1 cap(s) orally once a day Zoloft 25 mg oral tablet - 0.5 tab(s) orally once a day traMADol 50 mg oral tablet - 1 tab(s) orally every 6 hours as needed for pain, ICD-10: G89.18 calcium carbonate 1250 mg (500 mg elemental calcium) oral tablet - 1 tab(s) orally 3 times a day; to be taken for any numbness or tingling in fingertips docusate sodium 100 mg oral tablet - 1 tab(s) orally 2 times a day Synthroid 200 mcg (0.2 mg) oral tablet - 1 tab(s) orally once a day PRN Medication DNR Status: Code StatusCode Status order at time of discharge: Full Code Electronic Signatures: Edy Dominguez) (Signed 05-Dec-2021 07:11) Authored: Send Summary, Summary Content, Ongoing Care, DNR Status, Note Completion Last Updated: 05-Dec-2021 07:11 by Edy Dominguez) [facility] [place] 12-04-2021 Note PROCEDURE DETAILS Preoperative Diagnosis: Follicular variant papillary thyroid cancer Postoperative Diagnosis: Follicular variant papillary thyroid cancer Surgeon: Edy Dominguez MD Resident/Fellow/Other Adjunct Nursing Faculty: Alexey Procedure: 1. Completion right thyroidectomy with intraoperative nerve monitoring Anesthesia: GET Estimated Blood Loss: 15 Blood Replaced: None Findings: Please see operative report Specimens(s) Collected: yes, R thyroid Complications: No immediate intraoperative complications Urine Output: NR Drains and/or Catheters: Please see operative report Implants: None Patient Returned To/Condition: PACU/Stable Operative Report: Findings: 1. 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 She underwent left hemithyroidectomy on 07/10/21. 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 After discussion of risks (bleeding, infection, numbness, recurrent laryngeal nerve injury, hypocalcemia.), benefits, and alternatives, the decision was made to pursue the above listed procedure. All questions were answered, the patient expressed understanding. Description of Procedure: Patient was seen and evaluated in the pre-op area. Informed consent was obtained as described above. Patient was then taken to the operating room by the anesthesia team. General anesthesia was induced and patient was orotracheally intubated using a Glidescope and a nerve monitoring tube. Appropriate position was confirmed by anesthesia and ENT. The nerve monitor was hooked up and confirmed to be working appropriately. This was used throughout the case to identify and ensure function of the bilateral recurrent laryngeal nerves. Pre-operative huddle was performed by Dr. Dominguez. The previous incision low in the midline neck was outlined, injected, and then prepped and draped in appropriate fashion. A #15 blade was used to incise the skin. Electrocautery was used to incise down to the anterior jugular veins. Subplatysmal flaps were elevated superiorly and inferiorly. The strap muscles were identified and and elevated off the thyroid, and retractors were placed. The superior pole was identified, isolated, clipped, and cut. A [place] was placed on the superior pole being careful not to rupture any nodules/masses, as we mobilized the superior pole further. It was retracted down and all the soft tissue down to the joint space was freed. We then identified the lateral aspect of the gland and the middle thyroid vein which was isolated, clipped, and cut. The inferior pole vessels were isolated, clipped, and cut. The fascia was swept off the gland. The trachea had been identified. The inferior pole was mobilized off the trachea and the tubercle of Zuckerkandl was identified, it was mobilized up. The parathyroids were released and protected. All the vessels lateral to the recurrent nerve were isolated, clipped, and cut. Dhillon's ligament was released. The vessels medial to the nerve were isolated, clipped, and cut. The thyroid lobe was removed. It was oriented and sent to Pathology. There were no complications noted. The vagus nerve stimulated at the end of the case. A small amount of fibrillar was placed after Valsalva and hemostasis was achieved and a single 3-0 vicryl stitch was placed in the straps. The platysma was reapproximated with interrupted deep 3-0 vicryl sutures and a 4-0 Biosyn was used for skin closure. Steri-Strips and mastisol were placed. Patient's care was then turned over to the anesthesia and was awakened, extubated and transported to the PACU in stable condition. Dr. Dominguez was present and participated in all critical portions of the procedure.. Attestation: Note Completion: I am a:Resident/Fellow Attending AttestationI was present for reis portions of the procedure and the procedure lasted longer than 5 minutes. Electronic Signatures: Modesto Blackburn (Resident)) (Signed 04-Dec-2021 06:24) Authored: Post-Operative Note, Chart Review, Note Completion Edy Dominguez) (Signed 04-Dec-2021 09:55) Authored: Post-Operative Note, Chart Review, Note Completion Last Updated: 04-Dec-2021 09:55 by Edy Dominguez) [facility] [place] 12-04-2021 Note History of Present I llness: /Lactating: Are You no Are You Currently Breastfeedingno History Present Illness: Reason for surgery: Thyroid cancer - completion thyroidectomy HPI: Surgery: Completion Right Thyroidectomy Name: Lauro Pinto ([id number]) Surgeon: Edy Dominguez MD Age: 46 Date of Surgery: 12/04/21 Dispo: Outpt vs ext stay HPI: Lauro is a 46 year old woman who 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 She underwent left hemithyroidectomy on 07/10/21. 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 After discussion of risks, benefits, and alternatives, the decision was made to pursue the above listed procedure. All questions were answered, the patient expressed understanding. PMH: Thyroid cancer PSH: Thyroidectomy, left SHx: Denies current tobacco use FHx: NR All: NKDA Rx: Vraylar, sertraline, omeprazole Imaging: TUS dated 11/19/21 with now TIRADS 5 nodule in the left thyroid isthmus F/U: To be scheduled Allergies: Allergies: Succinylcholine Chloride: Unknown (Severe) Home Medication Review: Home Medications Reviewed: yes Impression/Procedure: Impression and Planned Procedure: Thyroid Ca - Thyroidectomy ERAS (Enhanced Recovery After Surgery): ERAS Patient: no Physical Exam by System: Respiratory/Thorax: Unlabored room air Cardiovascular: Well perfused Consent: COVID-19 Consent: COVID-19 Risk ConsentSurgeon has reviewed reis risks related to the risk of petrona COVID-19 and if they contract COVID-19 what the risks are. Attestation: Note Completion: I am a: Resident/Fellow Attending AttestationI saw and evaluated the patient. I personally obtained the reis and critical portions of the history and physical exam or was physically present for reis and critical portions performed by the resident/fellow. I reviewed the resident/fellows documentation and discussed the patient with the resident/fellow. I agree with the resident/fellows medical decision making as documented in the note. I personally evaluated the patient [id number] Electronic Signatures: Modesto Blackburn (Resident)) (Signed 04-Dec-2021 04:52) Authored: History of Present Illness, Allergies, Home Medication Review, Impression/Procedure, ERAS, Physical Exam, Consent, Note Completion Edy Dominguez) (Signed 04-Dec-2021 05:52) Authored: History of Present Illness, Note Completion Co-Signer: History of Present Illness, Allergies, Home Medication Review, Impression/Procedure, ERAS, Physical Exam, Consent, Note Completion Last Updated: 04-Dec-2021 05:52 by Edy Dominguez) [facility] [place] 08-16-2021 Evaluation note Encounter Date Diagnosis Assessment Notes Aug, Cough (ICD-10 - R05.9) Aug, COVID-19 (ICD-10 - U07.1) Drink plenty fluids, get plenty of rest. Continue home medications as prescribed. Use the albuterol inhaler as prescribed as needed for cough or shortness of breath. Follow-up with your family physician if no improvement in 2 to 3 days [employer] Other 11-05-2021 NoteSend Summary: Discharge Summary Providers: Provider RoleProvider Name AttendingEdy Dominguez ReferringEdy Dominguez PrimaryRequired, No Pcp Note Recipients: Required, No Pcp, Edy Loyd MD Discharge: Summary: Admission Date: .10-Jul-2021 05:38:00 Discharge Date: 11-Jul-2021 Admission Reason: left thyroid nodule Final Discharge Diagnoses: thyroid nodule Procedures: Date: 10-Jul-2021 13:32:00 Procedure Name: 1. Left hemithyroidectomy with nerve monitor Hospital Course: Lauro Pinto is a 46 yr old female with a left thyroid nodule s/p left hemithyroidectomy on 07/10/[address] Dominguez. Please see operative report for full details. Patient tolerated the procedure well and recovered briefly in PACU before being transitioned to regular nursing floor. Post-op course was uncomplicated. Diet was advanced as tolerated. IV medication transitioned to oral as diet advanced. On the day of discharge, the pt was tolerating a diet, pain was controlled on PO pain medication, and they were ambulating and voiding spontaneously. She was discharged home in stable condition with instructions to follow up as outpatient. Drain was removed prior to d/c Discharge Information: and Continuing Care: Lab Results - Pending: Surgical Pathology Drawn at 10-Jul-2021 10:38:00 Radiology Results - Pending: None Discharge Instructions: Activity: activity as tolerated. May shower.. Avoid direct water on incision May not drive while taking narcotics. No pushing, pulling, or lifting objects greater than 10 pounds for 2 week(s). Weight-bearing Instructions: full weight bearing. Nutrition/Diet: regular Wound Care: Wound Site: Neck Wound Type: surgical incision Other Instructions: You have small paper tapes over small surgery incisions. These tapes may get wet in shower, pat dry. The strips may become loose and fall off on their own, any strips that remain will be removed at your follow up visit. Drain/Tube Care: Type: LAST ([place]mer [place]) Suction: self Discharge Medications: Home Medication traMADol 50 mg oral tablet - 1 tab(s) orally every 6 hours as needed for pain not controlled with tylenol an motrin ICD10: G89.18 omeprazole 20 mg oral delayed release capsule - 1 cap(s) orally once a day Vraylar 1.5 mg oral capsule - 1 cap(s) orally once a day Zoloft 25 mg oral tablet - 0.5 tab(s) orally once a day PRN Medication Electronic Signatures: Edy Dominguez) (Signed 11-Jul-2021 06:09) Authored: Send Summary, Summary Content, Ongoing Care, Note Completion Last Updated: 11-Jul-2021 06:09 by Edy Dominguez)[facility] [place] 07-10-2021 NotePROCEDURE DETAILS Preoperative Diagnosis: Left thyroid nodule Postoperative Diagnosis: Left thyroid nodule Surgeon: Edy Dominguez Resident/Fellow/Other Adjunct Nursing Faculty: Juan Becerra Procedure: 1. Left hemithyroidectomy with nerve monitor Anesthesia: GET Estimated Blood Loss: 10cc Findings: Left thyroid nodule removed, left RLN identified, preserved, and stimulated at the end of the case. Specimens(s) Collected: yes, Left hemithyroidectomy, stitch beaver left superior pole Complications: None Operative Report: Indications: Patient is a 46 yo female with an incidentally found 5.5cm left thyroid nodule. Therefore, discussion was held in clinic regarding proceeding to the OR for the above procedures. After discussing all risks (bleeding, infection, numbness, damage to recurrent laryngeal nerve and parathyroid glands), benefits, indications and alternatives to the planned procedures patient signed written informed consent to proceed. Description of Procedure: Patient was seen and evaluated in the pre-op area. Informed consent was obtained as described above. Patient was then taken to the operating room by the anesthesia team. General anesthesia was induced and patient was orotracheally intubated using a Glidescope and a nerve monitoring tube. Appropriate position was confirmed by anesthesia and ENT. The nerve monitor was hooked up and confirmed to be working appropriately. This was used throughout the case to identify and ensure function of the bilateral recurrent laryngeal nerves. A 8-cm incision low in the midline neck was outlined, injected with 1% lidocaine with 1:100,000 epinephrine, and then prepped and draped in appropriate fashion with a shoulder roll in place. A #15 blade was used to incise the skin. Electrocautery was used to incise down to the anterior jugular veins. Subplatysmal flaps were elevated superiorly and inferiorly. The strap muscles were identified and on the left and elevated off the left thyroid and isthmus, and retractors were placed. The superior pole was identified, isolated, clipped, and cut. A Garry was placed on the superior pole being careful not to rupture any nodules/masses, as we mobilized the superior pole further. It was retracted down and all the soft tissue down to the joint space was freed. We then identified the lateral aspect of the gland and the middle thyroid vein which was isolated, clipped, and cut. The inferior pole vessels were isolated, clipped, and cut. The fascia was swept off the gland. The trachea had been identified. The inferior pole was mobilized off the trachea and the tubercle of Zuckerkandl was identified, it was mobilized up off the recurrent nerve which was encountered at this point, heading towards the joint space. The parathyroids were released and protected. All the vessels lateral to the recurrent nerve were isolated, clipped, and cut. Dhillon's ligament was released. The vessels medial to the nerve were isolated, clipped, and cut. The thyroid lobe was removed. It was oriented and sent to Pathology. There were no complications noted. The recurrent laryngeal nerve stimulated at the end of the case. A Valsalva was performed and hemostasis obtained with bipolar electrocautery. A drain was placed in the left neck and sutured in placed. The left strap mucles were reapproximated with 3-0 vicryl suture and a single 3-0 vicryl stitch was placed to reapproximate the straps in midline. The platysma was reapproximated with interrupted deep 3-0 vicryl sutures and a 4-0 Monocryl was used for skin closure. Steri-Strips and mastisol were placed. Patient's care was then turned over to the anesthesia and was awakened, extubated and transported to the PACU in stable condition. Dr. Dominguez was present and participated in all critical portions of the procedure.. Attestation: Note Completion: I am a:Resident/Fellow Attending Janine was present for reis portions of the procedure and the procedure lasted longer than 5 minutes. Electronic Signatures: Juan Becerra (Resident)) (Signed 10-Jul-2021 13:40) Authored: Post-Operative Note, Chart Review, Note Completion Edy Dominguez) (Signed 10-Jul-2021 13:54) Authored: Post-Operative Note, Chart Review, Note Completion Co-Signer: Post-Operative Note, Chart Review, Note Completion Last Updated: 10-Jul-2021 13:54 by Edy Dominguez)[facility] [place] 07-10-2021 NoteHistory & Physical Reviewed: /Lactating: Are You no Are You Currently Breastfeedingno I have reviewed the History and Physical dated: 07-Jul-2021 History and Physical reviewed and relevant findings noted. Patient examined to review pertinent physical findings.: No significant changes Home Medications Reviewed: no changes noted Allergies Reviewed: no changes noted ERAS (Enhanced Recovery After Surgery): ERAS Patient: no Consent: COVID-19 Consent: COVID-19 Risk ConsentSurgeon has reviewed reis risks related to the risk of petrona COVID-19 and if they contract COVID-19 what the risks are. Attestation: Note Completion: I am a: Resident/Fellow Attending Janine saw and evaluated the patient. I personally obtained the reis and critical portions of the history and physical exam or was physically present for reis and critical portions performed by the resident/fellow. I reviewed the resident/fellows documentation and discussed the patient with the resident/fellow. I agree with the resident/fellows medical decision making as documented in the note. I personally evaluated the patient [id number] Electronic Signatures: Juan Becerra (Resident)) (Signed 10-Jul-2021 07:14) Authored: History & Physical Reviewed, ERAS, Consent, Note Completion Edy Dominguez) (Signed 10-Jul-2021 08:58) Authored: Note Completion Co-Signer: History & Physical Reviewed, ERAS, Consent, Note Completion Last Updated: 10-Jul-2021 08:58 by Edy Dominguez)[facility] [place] [facility] 07-07-2021 History of Present illness Narrative* 46-year-old female referred by Dr. Christian for evaluation of goiter and thyroid nodule. Patient had incidental finding of a left-sided thyroid nodule on a CT scan. I do not have the CT scan for review. Based on outside documentation there is substernal extension with mild tracheal compression. Patient denies any significant compressive symptoms. She also had a thyroid ultrasound which reports a 5-1/2 cm left- sided nodule. I do not have that report for review. This was biopsied and returned as benign. She denies any family history of thyroid cancer. Her TSH is reportedly normal * She reports history of depression and reflux. She has had multiple prior surgeries including appendix, tonsillectomy, multiple foot surgeries, hernia repair, and back surgeries. She denies any allergies. She reports family history of diabetes and hypertension. She denies history of smoking. She repo rts social alcohol use. She is on disability * She presents today to discuss surgery scheduled for later this week. She saw preadmission testing this morning. She has not developed any symptoms EA-Adoqoghakjxjob-Ytcjxzzx Work Phone: [phone]) 722-832508-29-2021 History of Present illness Narrative* 46-year-old female referred by Dr. Christian for evaluation of goiter and thyroid nodule. Patient had incidental finding of a left-sided thyroid nodule on a CT scan. I do not have the CT scan for review. Based on outside documentation there is substernal extension with mild tracheal compression. Patient denies any significant compressive symptoms. She also had a thyroid ultrasound which reports a 5-1/2 cm left-sided nodule. I do not have that report for review. This was biopsied and returned as benign. She denies any family history of thyroid cancer. Her TSH is reportedly normal * She reports history of depression and reflux. She has had multiple prior surgeries including appendix, tonsillectomy, multiple foot surgeries, hernia repair, and back surgeries. She denies any allergies. She reports family history of diabetes and hypertension. She denies history of smoking. She repo rts social alcohol use. She is on disability OJ-Aczrsqaezkcjvg-Jhgfzykq Work Phone: Evaluation noteNo assessment information available [facility] Work Phone: Evaluation note* Diagnosis Lumbosacral spondylosis without myelopathy- Primary [facility] Diagnosis Postprocedural hypothyroidism Postsurgical hypothyroidism Malignant neoplasm of thyroid gland (CMS-HCC) Malignant neoplasm of thyroid gland [facility] Diagnosis Postoperative hypothyroidism (CMS/HCC)- Primary Postsurgical hypothyroidism Papillary thyroid carcinoma (CMS/HCC) Vitamin D deficiency Encounter for dietary consultation Class 3 severe obesity due to excess calories without serious comorbidity with body mass index (BMI) of 40.0 to 44.9 in adult (CMS/HCC) documented in this encounter [facility]* Diagnosis Dysfunctional uterine bleeding Other disorder of menstruation and other abnormal bleeding from female genital tract Iron deficiency anemia, unspecified iron deficiency anemia type documented in this encounter [facility]* Diagnosis Disorder of sacrum- Primary Disorders of sacrum Disorder of sacrum- Primary Disorders of sacrum Disorder of sacrum Disorders of sacrum [facility] Diagnosis Disorder of sacrum- Primary Disorders of sacrum Disorder of sacrum- Primary Disorders of sacrum Disorder of sacrum Disorders of sacrum [facility]* Diagnosis Dysfunctional uterine bleeding Other disorder of menstruation and other abnormal bleeding from female genital tract Pre-operative exam Unspecified pre-operative examination documented in [facility] encounter [facility] Healthcare[facility] general Narrative - Reported* Type Description Date Medical History heartburn Medical History pulmonary embolism Surgical History tonsillectomy Surgical History umbilical hernia repair Surgical History appendectomy Surgical History tubal ligation Surgical History back surgery x2 Surgical History right foot x5 Hospitalization History see above Acompli Other History of Present illness Narrative* 46-year-old female referred by Dr. Christian for evaluation of goiter and thyroid nodule. Patient had incidental finding of a left-sided thyroid nodule on a CT scan. I do not have the CT scan for review. Based on outside documentation there is substernal extension with mild tracheal compression. Patient denies any significant compressive symptoms. She also had a thyroid ultrasound which reports a 5-1/2 cm left-sided nodule. I do not have that report for review. This was biopsied and returned as benign. She denies any family history of thyroid cancer. Her TSH is reportedly normal * She reports history of depression and reflux. She has had multiple prior surgeries including appendix, tonsillectomy, multiple foot surgeries, hernia repair, and back surgeries. She denies any allergies. She reports family history of diabetes and hypertension. She denies history of smoking. She repo rts social alcohol use. She is on disability * 06/12: Virtual visit to review recent ultrasound. The nodules have been essentially stable in size. She has not noticed any change in symptoms PW-Eoddiutverbxbr-Qpjgizzs Work Phone: History of Present illness NarrativePatient presents today after hemithyroidectomy. Final pathology pending. Doing well since her surgery. No issues with voice or ohmmgxjeglRL-Glezobtntxwrdh-Klsnpbif Work Phone: History of Present illness NarrativePatient presents today to discuss completion thyroidectomy. 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 She has been doing well and has not had any significant changes. No issues with voice or tfagyytbeoWI-Upybsbblnlonng-Caeotoms [address] Work Phone: History of Present illness NarrativePatient presents today for follow up after completion thyroidectomy. Pathology after initial surgery showed multifocal carcinoma. No cancer identified on completion. She has been doing well No issueswith voice or svojlpiolqDM-Cwaijwimajzery-Klbuglyn Work Phone: InstructionsNot on filedocumented in this encounter [facility] on filedocumented in this encounter [facility] filed[facility]ructionsNot on filedocumented in this [facility] Summary Purpose Family History No Family History Records Found Relationship Condition Age at Onset Recorded Date/T margot mother Diabetes mellitus Unknown Advance Directives No Advanced Directives Records FoundNo Advanced Directives Records FoundNo Advanced Directives Records FoundNo Advanced Directives Records FoundNo Advanced Directives Records FoundNo Advanced Directives Records FoundNo Advanced Directives Records FoundNo Advanced Directives Records FoundNo Advanced Directives Records Found Chief Complaint Goiter, thyroid noduleGoiter, thyroid noduleGoiter, thyroid nodulepostopf/u thyroid cancerf/u thyroid cancer Reason for Referral Specialty Diagnoses / Procedures Referred By Contac t Referred To Contact Diagnoses Disorder of sacrum Procedures Case request operating room: INJECTION BLOCK SACROILIAC JOINT Kyler Carvajal, JOAN [address] [place] [id number] Referral ID Status Reason Start Date Expiration Date V isits Requested Visits Authorized [id number] Pending Review 05/18/2024 05/18/2025 1 1 Additional Source Comments INFORMATION SOURCE (unrecogn ized section and content) DATE CREATED AUTHOR 03/02/2018 [facility] DATE CREATED AUTHOR AUTHOR'S ORGANIZ ATION 10/03/2020 [facility] DATE CREATED AUTHOR AUTHOR'S ORGANIZ ATION 12/13/2021 [facility] [place] [facility] DATE CREATED AUTHOR AUTHOR'S ORGANIZ ATION 12/21/2021 [facility] DATE CREATED AUTHOR AUTHOR'S ORGANIZ ATION 03/27/2022 [employer] DATE CREATED AUTHOR AUTHOR'S ORGANIZ ATION 10/28/2024 [facility] DATE CREATED AUTHOR AUTHOR'S ORGANIZ ATION 11/03/2024 [facility] DATE CREATED AUTHOR AUTHOR'S ORGANIZ ATION 11/04/2024 [facility] DATE CREATED AUTHOR AUTHOR'S ORGANIZ ATION 11/07/2024 [facility] REASON FOR VISIT (unrecogniz ed section and content) Reason Comments Back Pain Reason Comments Vaginal Bleeding anemia Reason Comments Back Pain Reason Comments Back Pain Knee Pain Reason Comments Vaginal Bleeding Pre-op Visit Care Teams (unrecognized sec tion and content) Team Status: Active Member Role Status Dates Sofiya Cole MD Primary Care Provider Active Team Status: Inactive Member Role Status Dates Sofiya Cole MD Primary Care Provider Active Start: July 25, 2024 End: July 25, 2024 Korey Ford MD Attending Provider Active Start: July 25, 2024 End: July 25, 2024 Physical Therapist Aide Relationship Specialty Start Date End Date Toney Montoya DO PCP - General Family Medicine 09/13/20 Physical Therapist Aide Relationship Specialty Start Date End Date Tnoey Montoya DO PCP - General Family Medicine 09/13/20 Physical Therapist Aide Relationship Specialty Start Date End Date Toney Montoya MD [address] [place] [address] PCP - General Family Medicine 08/09/24 Physical Therapist Aide Relationship Specialty Start Date End Date Toney Montoya MD [address] [place] [address] PCP - General Family Medicine 08/09/24 Physical Therapist Aide Relationship Specialty Start Date End Date Toney Montoya MD [address] [place] [address] PCP - General Family Medicine 08/09/24 Physical Therapist Aide Relationship Specialty Start Date End Date Toney Montoya DO [address] [place] [address] PCP - General Family Medicine 09/13/20 Physical Therapist Aide Relationship Specialty Start Date End Date Toney Montoya DO PCP - General Family Medicine 09/13/20 Physical Therapist Aide Relationship Specialty Start Date End Date Toney Montoya DO PCP - General Family Medicine 09/13/20 Physical Therapist Aide Relationship Specialty Start Date End Date Toney Montoya DO PCP - General Family Medicine 09/13/20 Physical Therapist Aide Relationship Specialty Start Date End Date Toney Montoya MD [address] [place] [address] PCP - General Family Medicine 08/09/24 Team Status: Inactive Member Role Status Tom Cole MD Primary Care Provider Active Start: November 01, 2024 End: November 01, 2024 Jorge Aguilar DO Attending Provider Active Start : November 01, 2024 End: November 01, 2024 Physical Therapist Aide Relationship Specialty Start Date End Date Toney Montoya MD [address] [place] [address] PCP - General Family Medicine 08/09/24 Goals (unrecognized section and content) Goals may be documented in a n alternate section FOR RECORDS PERTAINING TO PATIENTS WHO ARE OR HAVE BEEN ENROLLED IN A CHEMICAL DEPENDENCY/SUBSTANCEABUSE PROGRAM, SOME INFORMATION MAY BE OMITTED. This clinical summary was aggregated from multiple sources. Caution should be exercised in using it in the provision of clinical care. This summary normalizes information from multiple sources, and as a consequence, information in this document may materially change the coding, format and clinical context of patient data. In addition, data may be omitted in some cases. CLINICAL DECISIONS SHOULD BE BASED ON THE PRIMARY CLINICAL RECORDS. [employer] provides no warranty or guarantee of the accuracy or completeness of information in this document.
== END 2024-11-01 11:34 | disposition home or self-care (01) ==
LOC: LAB 11:33
PROVIDERS: PCP Family Medicine; Visit Provider Obstetrics & Gynecology
DX: N93.8 Other specified abnormal uterine and vaginal bleeding (principal)

== ENCOUNTER 2024-11-03 13:18 | Outpatient (OUT) | payer MEDICARE, MEDICAID, SELFPAY ==
--- NOTE | 2024-11-03 13:26 | ECG_ITS ---
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
== END 2024-11-03 13:19 | disposition home or self-care (01) ==
LOC: PST 13:21
PROVIDERS: PCP Family Medicine; Visit Provider Obstetrics & Gynecology
DX: Z01.810 Encounter for preprocedural cardiovascular examination (principal); N92.0 Excessive and frequent menstruation with regular cycle; N93.9 Abnormal uterine and vaginal bleeding, unspecified; R10.2 Pelvic and perineal pain
CPT/HCPCS: 93005

== ENCOUNTER 2024-11-10 08:02 | Day surgery (SDC) | payer MEDICARE, MEDICAID, SELFPAY ==
[2024-11-03 13:58] VITALS: BP 113/74; PULSE 68; TEMP 36.2; O2SAT 100; BMI 40.0
[2024-11-10] VITALS (9 sets, daily range): BP systolic 116–136; BP diastolic 69–86; PULSE 59–89; TEMP 36.3–36.6; O2SAT 94–100; BMI 39.4
[2024-11-10 08:12] LABS: Basophils Percent Auto 0.5 % (0.2-2.0); Eosinophils Absolute Auto 0.1 10^3/uL (0.0-0.7); Eosinophils Percent Auto 1.2 % (0.9-7.0); Hemoglobin 11.6 g/dL (12.0-16.0); Immature Granulocytes Abs Auto 0.01 10^3/uL (0.00-0.03); Immature Granulocytes Pct Auto 0.1 % (0.0-0.5); Lymphocytes Absolute Auto 2.8 10^3/uL (1.2-3.8); Lymphocytes Percent Auto 33.9 % (20.5-60.0); Mean Corpuscular Hemoglobin 24.8 pg (26.7-34.0); Mean Corpuscular Volume 85.5 fL (81.0-99.0); Mean Platelet Volume 10.4 fL (9.5-13.5); Monocytes Absolute Auto 0.5 10^3/uL (0.3-0.8); Monocytes Percent Auto 6.5 % (1.7-12.0); Neutrophils Absolute Auto 4.7 10^3/uL (1.4-6.5); Neutrophils Percent Auto 57.8 % (43.0-75.0); Platelet Count 264 10^3/uL (150-450); Red Blood Count 4.68 10^6/uL (4.20-5.40); Red Cell Distribution Width 15.9 % (11.0-15.0); White Blood Count 8.1 10^3/uL (4.0-11.0)
--- OUTSIDE RECORDS SUMMARY | 2024-11-10 08:16 | XMS_ITS | CCD ---
Author Organization [facility] Care Team Providers Care Marine Design Engineer Name Role Phone MARKER, AMY Admitting Unavailable MARKER, AMY Attending Unavailable SOFIYA COLE Primary Care UnavailRUPINDER Wahl Consulting Unavailable MARKER, AMY Consulting Unavailable AMBREEN ZENDEJAS Consulting Unavailable None, No PCP Unavailable Unavailable Unavailable Unavailable Lindsay, Toney P Unavailable Melody Brandon Unavailable Sofiya Cole MD Primary Care Provider Korey Ford MD Attending Provider [place] DO Toney P Primary Care Provider Toney [...] TONEY P Primary Care Unavailable KYLER CARVAJAL Attending Unavailable HOUSE, TONEY P Referring Unavailable HOUSE, TONEY P Primary Care Unavailable Naye SANTIZO, Sofiya Primary Care Provider Jorge Aguilar DO Attending Provider JORGE AGUILAR Attending Unavailable KAT, THI F Attending Unavailable THI STEPHENS F Referring Unavailable JORGE AGUILAR Attending Unavailable Korey Ford Attending Unavailable HOUSE, TONEY P Primary Care Unavailable HOUSE, TONEY P Primary Care Unavailable Korey Ford Admitting Unavailable Korey Ford Attending Unavailable HOUSE, TONEY P Primary Care Unavailable HOUSE, DO TONEY P Attending Unavailable HOUSE, TONEY P Primary Care Unavailable HOUSE, DO TONEY P Attending Unavailable HOUSE, TONEY P Primary Care Unavailable HOUSE, DO TONEY P Attending Unavailable HOUSE, DO TONEY P Attending Unavailable HOUSE, TONEY P Primary Care Unavailable Sofiya Cole Primary Care Unavailable Jorge Aguilar Admitting Unavailable Jorge Aguilar Attending Unavailable Sofiya Cole Primary Care Unavailable Korey Ford Admitting Unavailable Korey Ford Attending Unavailable Allergies Allergy Classification Reported Allergen(s) Allergy Type Date of Onset Reaction(s) Facility (1 source) Amoxicillin Drug Allergy itching [facility] Other (1 source) Amoxicillin Drug Allergy 08-16-2021 [facility] Repository Medications Current Medications Medication Drug Class(es) Dates Sig (Normalized) Sig (Original) acetaminophen 500 mg oral tablet (10 sources) take 1 tablet by mouth every six hours as needed for pain acetaminophen (TYLENOL EXTRA STRENGTH) 500 mg tablet Take 1 tablet (500 mg total) by mouth every 6 (six) hours as needed for pain. Active [id number] 200 actuat albuterol 0.09 mg/actuat metered dose [...] (BMI) of 40.0 to 44.9 in adult ([facility])] 09-11-2024 Chronic Other nutritional; endocrine; and metabolic [...] Interpretation Reference Range Facility ECG 12-LEADon 11-05-[address] [address] Electrocardiograph Report Signed Patient: LAURO PINTO MR#: [id number] : 1975 Acct:[id number] Age/Sex: 49 / F ADM Date: 11/03/24 Loc: PST Attending Dr: Jorge Aguilar D.O. Ordering Physician: Jorge Aguilar D.O. Date of Service: 11/03/24 Procedure(s): ECG 12 lead Accession Number(s): [id number] cc: [facility] Test Date: 2024-11-03 Pat Name: LAURO PINTO Department: Room: - Gender: Female Way Inspector: : 1975 Requested By: JORGE AGUILAR Order Number: [id number] Reading MD: CHUCKY MANZANO Measurements Intervals [place] Rate: 63 P: 56 PA: 147 QRS: -5 QRSD: 92 T: 17 QT: 410 QTc: 421 Interpretive Statements SINUS RHYTHM Electronically Signed On 11-05-2024 8:08:21 EST by CHUCKY MANZANO Dictated By: Chucky Manzano D.O. Signed By: 11/05/24 0808 DD/ 1358 TD/TT: Bulk Station Operator: [facility] Radiology, Radiologi MD gwyn - 11/05/2024 [place] [address] Electrocardiograph Report Signed Patient: LAURO PINTO MR#: [id number] : 1975 Acct:[id number] Age/Sex: 49 / F ADM Date: 11/03/24 Loc: PST Attending Dr: Jorge Aguilar D.O. Ordering Physician: Jorge Aguilar D.O. Date of Service: 11/03/24 Procedure(s): ECG 12 lead Accession Number(s): [id number] cc: [facility] Test Date: 2024-11-03 Pat Name: LAURO PINTO Department: Room: - Gender: Female Way Inspector: : 1975 Requested By: JORGE AGUILAR Order Number: [id number] Reading MD: CHUCKY MANZANO Measurements Intervals [place] Rate: 63 P: 56 PA: 147 QRS: -5 QRSD: 92 T: 17 QT: 410 QTc: 421 Interpretive Statements SINUS RHYTHM Electronically Signed On 11-05-2024 8:08:21 EST by CHUCKY MANZANO Dictated By: Chucky Manzano D.O. Signed By: 11/05/24 0808 DD/ 1358 TD/TT: Bulk Station Operator: [facility] ECG 12-LEADOrdered By: Radio logist Radiology on 11-05-2024 [facility] Work Phone: ECG 12-LEADon 11-03-2024 Radiology Study observation (narrative) [facility] HCG ( test) Ql (U)o n 11-01-2024 Interpretation and review of laboratory results Normal [facility] Preg Test, Ur Negative Negative [facility] Claudio 11-01-2024 L ------ Specimen: [id number] Received: 11/02/24123 Status: WALDO Madsen Num: [id number] Spec Type: Surgical Subm Dr: Jorge Aguilar Tissues: A Endometrium - Biopsy (ENDOMETRIAL BX) Procedures: JADA/Herson Yusuf/Va L4 Age/ Patient Sex Location Account Attending Physician Lauro Pinto 49/F [place] [id number] Jorge Aguilar SPEC NUM: [id number] RECD: 11/02/24 STATUS: WALDO MADSEN NUM: [id number] MIGUELITO: 11/01/240000 SUBM DR: Jorge Aguilar ENTERED: 11/02/[address]: NEAL TYPE: Surgical DEPT: S ENTERED BY: [id number] RECV BY: [id number] ORDERED: HE/2, Gross/Micro L4 ORDERED: HE/2, Gross/Micro [...] submitted in a single cassette. (1, ns, [id number] A) Microscopic Description Sections examined support the above rendered diagnosis. Specimen: [id number] Received: 11/02/24 Status: WALDO Madsen Num: [id number] Spec Type: Surgical Subm Dr: Jorge Aguilar Tissues: A Endometrium - Biopsy (ENDOMETRIAL BX) Procedures: Herson HURT/Va L4 Patient: Lauro Pinto [id number] (Continued) Signed (signature on file) India Reyes MD 11/03/24 0838 Normal [facility] L ------ Specimen: [id number] Received: 11/02/24-135 Status: WALDO Madsen Num: [id number] Spec Type: Surgical Subm Dr: Jorge Aguilar Tissues: A Endometrium - Biopsy (ENDOMETRIAL BIOPSY) Procedures: Herson HURT/Va L4 Age/ Patient Sex Location Account Attending Physician Lauro Pinto 49/F [place] [id number] Jorge Aguilar SPEC NUM: [id number] RECD: 11/02/24 STATUS: WALDO MADSEN NUM: [id number] MIGUELITO: 11/01/24-[address]: Jorge Aguilar ENTERED: 11/07/24-[address] [facility] [address]: NEAL TYPE: Surgical DEPT: JORGE KULKARNI ENTERED BY: [id number] RECV BY: [id number] ORDERED: HE/2, Gross/Micro L4 ORDERED: HE/2, Gross/Micro L4 Pathological Diagnosis Endometrium, biopsy: -Fragments of stripped surface endometrium with ciliated cell metaplasia of the irregular glandular strips, and only scant endometrial stromal portion obtained -Incidental rare cells with eosinophilic metaplasia per reparative effect of prior breakdown (see comment) Comment: -The findings may suggest inactive endometrium versus evolving atrophy. The differential diagnosis may include limited superficial sampling. No evidence of hyperplasia or atypia observed or suspected. Clinical and radiographic correlations are recommended -A correction of the surgical case number is also noted. The proxy pathologist sign off the case on behalf of the initially assigned staff Clinical Information Dysfunctional uterine bleeding Specimen: [id number] Received: 11/02/24 Status: WALDO Madsen Num: [id number] Spec Type: Surgical Subm Dr: Jorge Aguilar Tissues: A Endometrium - Biopsy (ENDOMETRIAL BIOPSY) Procedures: HE/2, Gross/Micro L4 Patient: Lauro Pinto [id number] (Continued) Specimen: [id number] Received: 11/02/24 (Continued) Signed (signature on file) Elisabeth Beaulieu MD 11/07/24 1928 Specimen: [id number] Received: 11/02/24 Status: WALDO Madsen Num: [id number] Spec Type: Surgical Subm Dr: Jorge Aguilar Tissues: A Endometrium - Biopsy (ENDOMETRIAL BIOPSY) Procedures: HE/2, Gross/Micro L4 Patient: Lauro Pinto [id number] (Continued) Specimen: [id number] Received: 11/02/24 (Continued) Gross Description Part A is received in formalin labeled with the patients name, date of , and EMBx is a pale perez mucoid material, admixed with feathery duarte-pink tissue fragments, 0.8 x 0.3 x 0.1 cm in aggregate. The specimen is filtered and entirely submitted in a single cassette. (1, ns, [id number] A) Microscopic Description Sections examined support the above rendered diagnosis. CPT Codes 60317 Specimen: [id number] Received: 11/02/24 Status: WALDO Madsen Num: [id number] Spec Type: Surgical Subm Dr: Jorge Aguilar Tissues: A Endometrium - Biopsy (ENDOMETRIAL BIOPSY) Procedures: HE/2, Gross/Micro L4 Patient: Lauro Pinto [id number] (Continued) Signed (signature on file) Dunia Beaulieu MD 11/07/241927 Normal [facility] Outside Recordson 10-31-2024 Outside Records [id number]#1.00[facility] Rad - Other Radiology Report on 08-15-2024 Rad - Other Radiology Report [id number]#1.00[facility]IFF [facility] XR CHEST 2 VWSon 08-14-2024 XR CHEST 2 VWS XR CHEST 2 VWS XR CHEST 2 VWS INDICATION: Chest cold. FINDINGS: The cardiac silhouette is normal in size. The trachea is midline. No focal pulmonary consolidation. No pleural effusion. No pneumothorax. IMPRESSION: Normal chest x-ray. Finalized by Modesto Montalvo MD on 08/14/2024 4:51 PM Normal [facility] Coding Summaryon 08-02-2024 Coding Summary HTMLBase 64 PxgjtibcGGm9sVh+PGhlYWQ+PE 5EHWPmX73oeVWgfI2cR0AHQXaZ QwsoAFSJOScQMoByesDhHU9mmJ NjZXJu IC8+BU1qYWXkBaspgKWvy7M0sR F5V10cba3lCCkfmRB2VBAkLfRw yrqpi3zyeVf7IOoxSqxoEtBu QHTxnL97DUF7oL25Qj16sIAmuQ Rpf3uicEp7KgTkIRKyWWV2nGrc MIdyk7OrZJEcJ47qjETmt3Q7 TQQkdLnhbMVeTqAitHX1yU9hIJ ulxanws4tkxgdpElr1lv53pGXj x8N4tWH6J6PdqwG1JJCxqQDo YxzxgFNDdD5tkppje8vqtqqcTq EjLUAoBSz6ORp7NTStaNytYwSg VJ53MTO3GBUohvFiT5UbFUUh xPtqCfZ3w1Y9Co0BJ4VVAhgzV5 VNTUFSWTwvdGQ+QU40wz41E6Bb VqumAeq8KDSuDCB3vRW4xJ2n XBEsGPfpc9B3oAB3V0XnjnVpig 0lm1npZPAvZRkwX88ueZJir0V5 TAJauXZ9BHCkuQpoKeUorR00 Oyc+TNWslVmno5MjVijso3mix8 swnPc7WsudMYKhnlYvnJzzUMJ0 u5AcIx9cHHVcnUV5qJS1mH6p XkTdBkH9SEnrT765RwTqdKCxEs pnK17dL5EjiVQ+HECbFxm2ICFe gOreHD8sB6ImQKSxzggzhQHw mDhhOR7nUTTlektgAATsqA6jYB IhP3d2PdJaVyR7JXxdZ0CmSFMt qwsiZs38eM2dNhInYrC6NJyj Z7DqejC6JTOzwMKuJTkoGVC9O8 9ss5X9FAWaFBFdDHC2zTC8sV4p bGlnbjogbGVmdDsgdmVydGlj REscGBziR913NJSrsBsiPjMlCZ luZyBEYXRlOiAgMTEvMjcvMjAy NDwvdGQ+QZKlMJF0uMiaOXLl nDLrJObzUc6sjNsnpFhiBW5vHR MvgpttHUZxvT0bBXClsYBiaMcp BP5wRMAmgdmqp635GtIhKSQ2 IYNvoWPhU4WpvH0yKgKxKNIzXI IdL7KhoTNcKXfdV780MAlyJiK6 IYYbdyFjO7BfAIOkcYnwPaU9 o0Q7Tk9Qm8HuakhyF9AziKKiKd CjFjjvKIs4P9KqHemioKT+PC90 WTMgLJ82LVv9YIL6dZwcFOzs HTCiU8TawC6bPkXdBXBcQJJrFm c+PHRhYmxlIHdpZHRoPScxMDAl HdDoyMcmNS1xLx1uZWDjGMXb qFwvwUCmPfHwh5fkPYZwKFlsRZ 5hnPmyX7DvrYZ0ICGjr7e6Fh26 X98dP8OtxBD+YWXzdEJ6dPF0 qF6oOnPfUzB6GOvrW893LhPhsX DoAvswj9qys9efdHb0DpQ6GRPm skKufItkRZD8u5HaXe21O46k IHdpZHRoPSIxNSUiIHZhbGlnbj 9ehH4iLy3+JFUnhBS6yED5uG8v KsXpBtJ7ZLsqC638UeLuxRUq Raqgm5bxq8mtaUe8ZsGxZADyeu YxxQdgNAI6b6CsVg03T1HreHce c2WtDpf5an85wVNix8I5dYA7 J6IsCHRjlbzszISpuTlhFR4fPC LpmlmwBIFfyK3qSVJuD9u0XrZu XnV9ORncI7JxqlL8FJVekPNq UKTekPTPhK7ylhrbk7nphqirYg WnXPDjQDw9YTr0VWSscWvyLbYn SRS6RyP6CPH1sRWirC7yaDqv ireqrC9fZsd+TXK5tXDipEJBOM 1lOjwvdGQ+KEYsBZA3dSfeLYza QPNvhV5mISDoL2p3PhLiRdE7 DAevF8JxxhT5MHWvvGDtJJZxzE FSoG9waqjbx7robdxyGdLnNRKc YGg2WQw0XXAtbPzvRnBkUMT4 MnR9IKZ3wLCflS3onNeluvspnI 9wOyc+QuobhPjsKXM3CKp1N4Tw Yjb1FAAopTxhKA6ieSUdIBkd Og3gaJnqaKwiYP4gQIJnypnal6 55ShBew7brCJLycRKxNQumPGB1 U75le7G7JPNkKWKgOPK4zMZ5 mX5tkRptqxfnlGJppRimtqLktQ taYMomMCffJ771JSGsiCreGzMs OXd4F1QvCmw4JWFzbJuaYU1z dJWrGIboAl9fqPrvnMeeFR4pRP Jiitzjq467SlEpv0pwYHBiwLJp UVzzJUB1Z81bd7X0ZVQfVSNo DDU1wMH4pT1nsHksfckijPXonO xqgpXgbOiiTZecYNqgD208ZHIw qUsuPnKuyHu2M0HgOuv9LSLb bHuvZU3fdLTfIVbfCh9rdZgahL wwNZ3nRBEaaplyp174TdIzf9ah UDLebKHuNQndINB4X91te1D7 JTUvVNPkYIV1hAS8oO8gkLxnxb ogbGVmdDsgdmVydGljYWwtYWxp E318NLGoiAgdHfNiyAdcikAz AAolTLu5N2AzNorgqBR+PC90YW ZqSJ72wPHqsQVee9dadMv3LxUk EILaZYS0cFvqWRiui9OjBWCt N43grIFye2M6KLPbmDoymXZxHe BebEI0dO8xTMbufjunn5gfqkcx Iamis5atra81dD84X26uNFrx NJWsHWJxSJLbKDFtdPvksu2gyS 9wIi8+SBPhaPA0jIU9jI5lTCUz MwD3QTlhC895SqRwtTSyUohu b4xrp8fojDe0OwA9MEBrxrEbwS lpAUA2r1ZlDf74T21cGPmgQHFk NUGxLTEuEALuvIzveb4qhF2f Ii8+VIYuwEG4dFP5nD0oVaLvLe V4NDbjD837EvHhgKWmOtalI53r M9SbfKN+USPtEgi4NIJuaBtv SS2wxQAqNKytVh4tBQF8UfTsUd GgPBmqD4XzMFDuweyzkrdgiIG7 FPHjEUQawF85Zr7hcIckDEJp dNONxD8yhqqay8vktwnbWgQvKQ KlTRe7OCf3IKBfjNtcDlKmDCE5 VuZ8APT3aBZdaM4ouEhvdjyy gI3hB6CzCOBnikxsYc28jJ6wXm IrIaL6WQcnDzt+TUFSVElOLCBN ZHMAUJzPFUHIZD65BT42bDAj n6B3yUC2O4KqZSNblorqakvfvN K1BKJgFXVuyB36eGNqYHzjGb8g i1D7o890ZKExLJHgyC03Ne4c kQoiNTYbqNEHxV3yqakmd4kerb bkWzNfRRPuQOq3QRg8EGKbdDhi RyGkWJG8QiW2IKM4qUPjdY9v yWusfntqhA2oJxk+MDUvMjEvMT o7VtkplGH+OZIpEMA5tMhrELjm EFWmlW8rLTBdR3y6HxIrVeN2 FWpqX9AuLKGdwogoIb98kF5yTi GjDeS3OElmP6CvpzC8URRokRDt FZzhGDM6A08lt3A0CZUeDRTn AKN3uEE2kG4cyRflmgsnnLHsxX kubfCojHrkEBxrPHwkK447KAGx tWkhEmM4OGdbBNXtOJ59VZ19 uXZgd1X3kUP8S4RmCVPzcbmbxr hqjME0XCRrQIMwgB66tETsFAuz Ji9xz7E9j103RWOpAWDpeM94 Er4qsKxkYWEocJTUeA6uqeskg0 gobfktVqShPXVbBXs4UNr6DXIc zOowHfRyEJE7UfP0QMN6pMHv gF6zuAlsmeonhO3tQis+RkVNQU rRJD46MY77fNJyf8F1vIL6T7Nv ZLHonsezqqmtmCT5NMYqCCBw cR30sWKeMFtzGr9gs6Y4n002ME BlSYYscZ36Av4myFghJBDbhJZQ hQ6kurovf4nolqznTxVaFXLe FTx8CVd4MGIggUpoPuCvLVL3Rz G4OOJ6lKGunG8fvCkzwejxcQ3r Oyc+PDH3WCU2hemxtpo5H9Ve PjwvdHI+NK98DSQoNF76pDKepJ Tgf8mrcNs4OlRtSVXuODF2mQtr GJdcj7DdIFBaT14qpFBaa7A3 LTGdtWpjqKAyMwFuzLP0xV1xYS qxbchkz4qawufqZkblc7yavj15 zI29W59uQCkwAXMjENEaEYAy SPAfrBgfrv9jyH8cGx2+PGNvbC C0sIF1iP4dFsEaTtA0OOmmV558 RfLgfDXjTrtol1qjr7zltRp4 BmToXBZvckDzoHdrKHK5y0BaEy 39C15dVGkiDOVtWACiOFHfHIQg kIzqjz9dqZ2mEx2+EF0sa9uk vb82tN52tZR+GIWkHIZ6wCftEP upAJLhpP0yZKtuPsE6ABVrHyPb iP65yORhFAtoKd5daInilGje GN6nYDYslligt882VhNhg7ymSF UmiPUtEClcWZX9Z22ny7H5GRIi TLLoXLV8gNP6dV2jjUsdfeyl bGVmdDsgdmVydGljYWwtYWxpZ2 54ISBmvKrgUzOumWCzD0tuspUC RB5qLoximOW+BJElNQD9nFsk XLhwLWGvaT4jQBUmM6h1KqMrNg A4GJkjE4RunrA6FRGroOSlORQl zBTStC6admmew8ecngnuTtXd QYRjHYp4WJd5MXMtzWzwTyZkZX L1QtH1NHX2iCFrkD5joVywmstt hH1oExk+RklOOjwvdGQ+PHRk RCQ5bOhfZBpeFBHlkK7yLWWrD2 m6GbZxBzL7ZRaaJ8AtfyC2TVXb bCYeGQRdcJBLpL6tbkfuq6kf efbvVhBgQCOyKQq7LXr5XXTmaO apNiCvNWT3ZuF4QFI9rEMpgA6l aJbgpyzotE8pNsu+TVJOOjwv dGQ+ASToZSE0lLhtTDyeYFVugV 1oHYFiG3a1QfOvVkY3OLygV4Nk maC4IZLtqAAsFZVmcOXNgI1e hkeju6hkuqnmAcCbZSBiAXl0OZ v5NRJnoZcoGdQsINP4LnN4JHK3 zGImiK9xfKruaieylN9gHyx+ EHL3JBG9FZ21OX19K8AgDueghH FibGU+PHRhYmxlIHdpZHRoPScx GZOiOrBmbKfdLE5jCp0kZIAg LWN (more content not included)... Normal [facility] CBC AND AUTO DIFFon 08-01-20 ABSOLUTE BASOPHIL 0.1 X10E9/L Normal 0.0-0.2 [facility] Comment on above: Performed By: #### C BCA #### [facility] ([id number]) [address], [address] [place] [address] ABSOLUTE NEUTROPHIL 5.2 X10E9/L Normal 1.5-6.6 [facility] Comment on above: Performed By: #### C BCA #### [facility] ([id number]) [address], [address] [place] [address] Basophils/100 WBC (Bld) 0.9 % Normal [facility] Comment on above: Performed By: #### C BCA #### [facility] ([id number]) [address], [address] [place] [address] Eosinophils (Bld) [#/Vol] 0.1 10*3/uL Normal 0.0-0.4 [facility] Comment on above: Performed By: #### C BCA #### [facility] ([id number]) [address], [address] [place] [address] Eosinophils/100 WBC (Bld) 1.1 % Normal [facility] Comment on above: Performed By: #### C BCA #### [facility] ([id number]) [address], [address] [place] [address] Erythrocyte distribution width (RBC) [Ratio] 16.9 % High 11.5-15.0 [facility] Comment on above: Performed By: #### C BCA #### [facility] ([id number]) [address], [address] [place] [address] Hematocrit (Bld) [Volume fraction] 28.5 % Low 35-47 [facility] Comment on above: Performed By: #### C BCA #### [facility] ([id number]) [address] [place] [address] Hemoglobin (Bld) [Mass/Vol] 8.6 g/dL Low 11.7-15.5 [facility] Comment on above: Performed By: #### C BCA #### [facility] ([id number]) [address], [address] [place] [address] Lymphocytes (Bld) [#/Vol] 2.0 10*3/uL Normal 1.0-3.5 [facility] Comment on above: Performed By: #### C BCA #### [facility] ([id number]) [address], [address] [place] [address] Lymphocytes/100 WBC (Bld) 25.7 % Normal [facility] Comment on above: Performed By: #### C BCA #### [facility] ([id number]) [address], [address] [place] [address] MCH (RBC) [Entitic mass] 22.1 pg Low 27-34 [facility] Comment on above: Performed By: #### C BCA #### [facility] ([id number]) [address], [address] [place] [address] MCHC (RBC) [Mass/Vol] 30.3 g/dL Low 32-36 [facility] Comment on above: Performed By: #### C BCA #### [facility] ([id number]) [address], [address] [place] [address] MCV (RBC) [Entitic vol] 73 fL Low 80-100 [facility] Comment on above: Performed By: #### C BCA #### [facility] ([id number]) [address], [address] [place] [address] Monocytes (Bld) [#/Vol] 0.4 10*3/uL Normal 0-0.9 [facility] Comment on above: Performed By: #### C BCA #### [facility] ([id number]) [address], [address] [place] [address] Monocytes/100 WBC (Bld) 4.6 % Normal [facility] Comment on above: Performed By: #### C BCA #### [facility] ([id number]) [address], [address] [place] [address] Neutrophils/100 WBC (Bld) 67.7 % Normal [facility] Comment on above: Performed By: #### C BCA #### [facility] ([id number]) [address] [place] [address] Platelet mean volume (Bld) [Entitic vol] 8.8 fL Normal 7-12 [facility] Comment on above: Performed By: #### C BCA #### [facility] ([id number]) [address], [address] [place] [address] Platelets (Bld) [#/Vol] 257 10*3/uL Normal 150-450 [facility] Comment on above: Performed By: #### C BCA #### [facility] ([id number]) [address], [address] [place] [address] RBC COUNT 3.91 X10E12/L Normal 3.80-5.20 [facility] Comment on above: Performed By: #### C BCA #### [facility] ([id number]) [address] [place] [address], [address] [place] [address] WBC (Bld) [#/Vol] 7.7 10*3/uL Normal 4.0-11.0 [facility] Comment on above: Performed By: #### C BCA #### [facility] ([id number]) [address], [address] [place] [address] Lab - AP Resultson Lab - AP Results [id number]#1.00[facility] Consent Formson 07-26-2024 Consent Forms [id number]#1.00[facility] Provider Orderson 07-26-2024 Provider Orders [id number]#1.00[facility] Anesthesia Noteon 07-25-2024 Anesthesia Note Patient: DEBORAH PINTO Age: 49 years Sex: FEMALE : 1975 Associated Diagnoses: None Author: Chilo Abernathy MD Postoperative Information Post Operative Note Health Status Allergies: Allergic Reactions (All) No known allergies Problem list (past medical history): All Problems Anxiety / SNOMED CT 23273594 / Confirmed Arthritis / SNOMED CT 2752621 / Confirmed Asthma / SNOMED CT 135255914 / Confirmed Constipated / SNOMED CT 53752631 / Confirmed Depressed / SNOMED CT 26634651 / Confirmed Thyroid disease / SNOMED CT 75297036 / Confirmed GERD (gastroesophageal reflux disease) / SNOMED CT 718640019 / Confirmed HTN (hypertension) / SNOMED CT 6636508051 / Confirmed Hypothyroid / SNOMED CT 36192043 / Confirmed Insomnia / SNOMED CT 624903824 / Confirmed IBS (irritable bowel syndrome) / SNOMED CT 56353869 / Confirmed Microcytic anemia / SNOMED CT 493604800 / Confirmed Migraine / SNOMED CT 60053671 / Confirmed Rheumatoid arthritis / SNOMED CT 189873891 / Confirmed Physical Examination VS/Measurements Vital Signs (last 24 hrs) Last Charted Temp Temporal L 36.1 DegC (JUL 25 09:35) Heart Rate Monitored 77 bpm (JUL 25:06) Resp Rate 18 br/min (JUL 25:) SBP H 132 mmHg (JUL 25:) DBP H 83 mmHg (JUL 25:) Weight 129.7 kg (JUL 25 06:36) Assessment Anesthetic outcome No anesthetic complications noted. Plan Transfer/ Discharge: To home, Patient can be discharged from PACU when criteria met. Condition good. [Electronically Signed on: 07/25/2024 13:53 EST] Chilo Abernathy MD [Verified on: 07/25/2024 13:53 EST] Chilo Abernathy MD [facility] Anesthesia Note Patient: DEBORAH PINTO Age: 49 years Sex: FEMALE : 1975 Associated Diagnoses: None Author: Chiol Abernathy MD Preoperative Information Anesthesia history: Patient [...] history): All Problems Anxiety / SNOMED CT 98262771 / Confirmed Arthritis / SNOMED CT 1783490 / Confirmed Asthma / SNOMED CT 844187316 / Confirmed Constipated / SNOMED CT 35913637 / Confirmed Depressed / SNOMED CT 36701456 / Confirmed Thyroid disease / SNOMED CT 77032848 / Confirmed GERD (gastroesophageal reflux disease) / SNOMED CT 703730950 / Confirmed HTN (hypertension) / SNOMED CT 8419959252 / Confirmed Hypothyroid / SNOMED CT 80789277 / Confirmed Insomnia / SNOMED CT 638818288 / Confirmed IBS (irritable bowel syndrome) / SNOMED CT 72701822 / Confirmed Microcytic anemia / SNOMED CT 653182198 / Confirmed Migraine / SNOMED CT 86452690 / Confirmed Rheumatoid arthritis / SNOMED CT 363695265 / Confirmed Histories Family History: Thyroid Sister Anxiety Mother Diabetes mellitus Mother Hypertension Father Mother Arthritis Mother CHF - Congestive heart failure Grandparent Migraine Sister Cancer Grandparent Crohn disease Grandparent Parkinsons disease Grandparent Procedure history: Thyroid (372924476). Knee (931901477). Foot (63948264). Tonsil (402789299). Appendectomy (153989746). Back (681063652). Social History Electronic Cigarette/Vaping Assessment Electronic Cigarette [...] Dr Torie Hernadez 08/23/2023 Category: Dr Orlando Matute 08/23/2023 Category: Dr Kat Nagel Tobacco 08/23/2023 Smoking tobacco use: Never tobacco user Electronic Cigarette/Vaping 08/23/2023 Electronic Cigarette Use: Never . Physical Examination VS/Measurements Measurements from flowsheet : Measurements 07/25/2024 6:36 EST Height 186 cm Weight 129.7 kg Weight Dosing 129.700 kg Body Mass Index 37.49 kg/m2 , Vital Signs (last 24 hrs) Last Charted Temp Temporal 36.3 DegC (JUL 25 06:36) Heart Rate Monitored 87 bpm (JUL 25:36) Resp Rate 18 br/min (JUL 25:36) SBP H 138 mmHg (JUL 25:36) DBP H 88 mmHg (JUL 25:36) Weight 129.7 kg (JUL 25:36) Review / Management Laboratory Results Plan [place] [employer]#(ASA) physical status classification: Class III. Anesthetic Preoperative Plan Anesthesia: Monitored anesthesia care, non-triggering, vaporizors removed and machine flushed per protocol . Anesthetic plan, risks, benefits, and alternatives discussed with the patient and/or family. Patient verbalized understanding. [Electronically Signed on: 07/25/2024 09:17 EST] Chilo Abernathy MD [Verified on: 07/25/2024 09:17 EST] Chilo Abernathy MD Normal [facility] Inpatient Patient Summaryon 07-25-2024 Inpatient Patient Summary [place] [id number] Patient Discharge Instructions Name: LAURO PINTO : 1975 Patient Address: [address] [place] [address] Primary Care Provider: Name: TONEY MONTOYA DO After you are discharged if you find you have any questions, please, call [phone] ext [phone] to speak to a nurse. Discharge Diagnosis: 1:Microcytic anemia Prescription Information: If you have been given a prescription for narcotics, seek immediate medical attention if you have any difficulty breathing or any sudden status changes such as confusion and sleepiness. If you or anyone you know is experiencing suicidal thoughts, mental health, alcohol and/or drug addiction problems; contact the [facility] [facility] 29/03 Crisis Hotline -Text 4HYQD to [id number]. If you received any narcotics, sedation, or [...] business decisions or sign any legal documents [facility] would like to thank you for allowing us to assist you with your healthcare needs. The following includes patient education materials and information regarding your injury/illness. LAURO PINTO has been given the following list of follow-up instructions, prescriptions, and patient education materials: Follow-up Instructions With: Address: When: Korey Ford [address] [place] [address], [place] [address] Business (1) , only if needed With: [...] After the procedure, (more content not included)... [facility] 07-25-2024 L ------ Specimen: [id number] Received: 07/25/24 Status: WALDO Madsen Num: [id number] Spec Type: Surgical Subm Dr: Korey Ford MD Tissues: A Colon Biopsy (DESCENDING COLON POLYP) B Colon Biopsy (SIGMOID COLON POLYP) Procedures: JADA/Alexx, Gross/Micro L4/2 Age/ Patient Sex Location Account Attending Physician Lauro Pinto 49/F [facility] [id number] Korey Ford MD SPEC NUM: [id number] RECD: 07/25/24 STATUS: WALDO MADSEN NUM: [id number] MIGUELITO: 07/25/[address] [facility] [address]: Korey Ford MD ENTERED: 07/25/[address] [facility] [address]: Lucinda,Lab SPEC TYPE: Surgical DEPT: MAG KULKARNI ENTERED BY: [id number] RECV BY: [id number] ORDERED: HE/4, Gross/Micro L4/2 ORDERED: HE/4, Gross/Micro [...] submitted in a single cassette. (1, ns, [id number] A) JG Part B is received in formalin labeled with the patients name, date of , and sigmoid colon polyp is a duarte-perez, focally erythematous, friable, 0.4 cm polypoid fragment. The specimen is inked black at the apparent point of attachment, bisected, and entirely submitted in a single cassette. (1, ns, [id number] B) JG Specimen: [id number] Received: 07/25/24 Status: WALDO Madsen Num: [id number] Spec Type: Surgical Subm Dr: Korey Ford MD Tissues: A Colon Biopsy (DESCENDING COLON POLYP) B Colon Biopsy (SIGMOID COLON POLYP) Procedures: HE/4, Gross/Micro L4/2 Patient: Lauro Pinto [id number] (Continued) Specimen: [id number] Received: 07/25/24 (Continued) Signed (signature on file) Brody Jordan MD 07/26/24 1445 Specimen: [id number] Received: 07/25/24 Status: WALDO Madsen Num: [id number] Spec Type: Surgical Subm Dr: Korey Ford MD Tissues: A Colon Biopsy (DESCENDING COLON POLYP) B Colon Biopsy (SIGMOID COLON POLYP) Procedures: JADAHerson Coffey/Micro L4/2 Patient: Lauro Pinto [id number] (Continued) Specimen: [id number] Received: 07/25/24 (Continued) CPT Codes 24438v4 Specimen: [id number] Received: 07/25/24 Status: WALDO Madsen Num: [id number] Spec Type: Surgical Subm Dr: Korey Ford MD Tissues: A Colon Biopsy (DESCENDING COLON POLYP) B Colon Biopsy (SIGMOID COLON POLYP) Procedures: HE/4, Gross/Micro L4/2 Patient: Lauro Pinto [id number] (Continued) Signed (signature on file) Brody Jordan MD 07/26/24 1445 Normal [facility] MAGR Intraoperative Recordon 07-25-2024 MAGR Intraoperative Record MAGR Intra-Op Record Summary Primary Physician: Korey Ford MD Finalized Date/Time: 07/25/24 12:59:58 Pt. Name: LAURO PINTO Stephanie Blair/Sex: 1975 FEMALE Med Rec #: [id number] Physician: Korey Ford MD Financial #: [id number] Pt. Type: D Room/Bed: / Admit/Disch: 07/25/24 [...] 904, END 909 COLONOSCOPY START 913, CECUM 917, STOP Case Attendance MAGR Entry 1 Entry 2 Entry 3 Case Attendee Korey Ford MD, John M MD Baumer, Erica RN Role Performed Surgeon - Primary Anesthesiologist of Phlebotomy Manager Record Time In 07/25/24 09:01:00 07/25/24 09:01:00 07/25/24 09:01:00 Time Out 07/25/24 09:31:00 07/25/24 09:31:00 07/25/24 09:31:00 Procedure Esophagogastroduodenosco Esophagogastroduodenosco Esophagogastroduodenosco py and Colonosco py and Colonosco py and Colonosco Last Modified By: Isabel Martinez RN, Erica RN Baumer, Erica RN 07/25/24 09:37:34 07/25/24 09:37:34 07/25/24 09:37:34 Entry 4 Entry 5 Case Attendee Awilda Castillo CSFA Lianna Box MEDICAL CLERICAL ASSISTANT MEDICAL CLERICAL ASSISTANT CSFA Role Performed Scrub Personnel Credit Director Time In 07/25/24 09:01:00 07/25/24 09:01:00 Time [...] Abernathy MD, Isabel Martinez RN, Lianna Box MEDICAL CLERICAL ASSISTANT CSFA, Awilda Castillo CSFA MEDICAL CLERICAL ASSISTANT Last Modified By: Isabel Martinez RN 07/25/24 [...] Met (O.80 (more content not included)... [facility] MAGR Postoperative Record MAGR Phase II Record Summary Primary Physician: Korey Ford MD Finalized Date/Time: 07/25/24 10:30:12 Pt. Name: LAURO PINTO D.O.B./Sex: 1975 FEMALE Med Rec #: [id number] Physician: Korey Ford MD Financial #: [id number] Pt. Type: D Room/Bed: / Admit/Disch: 07/25/24 [...] Signed By: Jumana Herbert RN 07/25/24 10:30 [facility]2023 [facility] Record Summary Primary Physician: Korey Ford MD Finalized Date/Time: 07/25/24 09:05:27 Pt. Name: BLAIR LAURO Stephanie Hernandez/Sex: 1975 FEMALE Med Rec #: [id number] Physician: Korey Ford MD Financial #: [id number] Pt. Type: D Room/Bed: / Admit/Disch: 07/25/24 06:22:59 - Institution: Pre-Op Case Times MAGR Pre-Care Text: Patient will be optimally prepared [...] Signed By: Isabel Martinez RN 07/25/24 09:05 [facility] Patient Handouton 07-25-2024 Patient Handout [...] that are easy to digest. ? Take yafj-tha-sszotib and prescription medicines only as told by [...] provider. Document Revised: 10/05/2023 Document Reviewed: 04/15/2022 [employer] Patient Education ? 2023 [employer] [facility] Test Urine 1on U Preg Negative [facility] Comment on above: Performed By: #### 3 [id number] ####[facility] (DEFAULT)[address] [place] [address] U Preg Internal Control Pass [facility] Comment on above: Performed By: #### 3 [id number] ####[facility] (DEFAULT)[address] [place] [address] Progress Note - Nurseon 07-07 Progress Note - Nurse Tests Superintendent spoke with pt and pt stated that she has a family hx of malignant hyperthermia. Per pt her moms sister had an issue. Pt put insurance underwriter on a 3 [address] call with pts mom. Per pts mom her sister had to be packed in ice and pts younger sister also had an issue. After speaking with pt and pts mom insurance underwriter let Dr Abernathy know the above details. [Electronically Signed on: 07/24/2024 11:38 EST] Jumana Herbert RN [Verified on: 07/24/2024 11:38 EST] Jumana Herbert RN [facility] Outside Recordson 06-28-2024 Outside Records [id number]#1.00OTGTIF F [facility] Lab - Other Lab Resultson Lab - Other Lab Results [id number]#1.00OTGTIF F [facility] CBC AND AUTO DIFFon 06-22-20 ABSOLUTE BASOPHIL 0.0 X10E9/L Normal 0.0-0.2 [facility] Comment on above: Performed By: #### C ARNULFO CMP, 29329-5, THYR #### [facility] ([id number]) [address], [address] [place] [address] ABSOLUTE NEUTROPHIL 5.6 X10E9/L Normal 1.5-6.6 [facility] Comment on above: Performed By: #### C ARUNLFO CMP, 02223-2, THYR #### [facility] ([id number]) [address], [address] [place] [address] Basophils/100 WBC (Bld) 0.5 % Normal [facility] Comment on above: Performed By: #### C ARNULFO CMP, 08885-2, THYR #### [facility] ([id number]) [address], [address] [place] [address] Eosinophils (Bld) [#/Vol] 0.1 10*3/uL Normal 0.0-0.4 [facility] Comment on above: Performed By: #### C ARNULFO CMP, 71707-5, THYR #### [facility] ([id number]) [address], [address] [place] [address] Eosinophils/100 WBC (Bld) 0.9 % Normal [facility] Comment on above: Performed By: #### C ARNULFO CMP, 03750-5, THYR #### [facility] ([id number]) [address], [address] [place] [address] Erythrocyte distribution width (RBC) [Ratio] 16.8 % High 11.5-15.0 [facility] Comment on above: Performed By: #### C BCA, CMP, 49700-7, THYR #### [facility] ([id number]) [address], [address] [place] [address] Hematocrit (Bld) [Volume fraction] 28.9 % Low 35-47 [facility] Comment on above: Performed By: #### C BCA, CMP, 08664-8, THYR #### [facility] ([id number]) [address], [address] [place] [address] Hemoglobin (Bld) [Mass/Vol] 8.8 g/dL Low 11.7-15.5 [facility] Comment on above: Performed By: #### C BRENDA ARREDONDO, 92776-2, THYR #### [facility] ([id number]) [address], [address] [place] [address] Lymphocytes (Bld) [#/Vol] 1.7 10*3/uL Normal 1.0-3.5 [facility] Comment on above: Performed By: #### C BRENDA ARREDONDO, 00769-4, THYR #### [facility] ([id number]) [address], [address] [place] [address] Lymphocytes/100 WBC (Bld) 22.0 % Normal [facility] Comment on above: Performed By: #### Rao ARREDONDO CMP, 85586-8, THYR #### [facility] ([id number]) [address], [address] [place] [address] MCH (RBC) [Entitic mass] 22.2 pg Low 27-34 [facility] Comment on above: Performed By: #### C BRENDA ARREDONDO, 38643-4, THYR #### [facility] ([id number]) [address], [address] [place] [address] MCHC (RBC) [Mass/Vol] 30.4 g/dL Low 32-36 [facility] Comment on above: Performed By: #### C ARNULFO, CMP, 21797-3, THYR #### [facility] ([id number]) [address], [address] [place] [address] MCV (RBC) [Entitic vol] 73 fL Low 80-100 [facility] Comment on above: Performed By: #### C BCA, CMP, 09999-5, THYR #### [facility] ([id number]) [address], [address] [place] [address] Monocytes (Bld) [#/Vol] 0.4 10*3/uL Normal 0-0.9 [facility] Comment on above: Performed By: #### C BCA, CMP, 35399-7, THYR #### [facility] ([id number]) [address], [address] [place] [address] Monocytes/100 WBC (Bld) 4.9 % Normal [facility] Comment on above: Performed By: #### C ARNULFO, CMP, 68089-8, THYR #### [facility] ([id number]) [address], [address] [place] [address] Neutrophils/100 WBC (Bld) 71.7 % Normal [facility] Comment on above: Performed By: #### C BCA, CMP, 22001-8, THYR #### [facility] ([id number]) [address], [address] [place] [address] Platelet mean volume (Bld) [Entitic vol] 8.9 fL Normal 7-12 [facility] Comment on above: Performed By: #### C ARNULFO, CMP, 12395-4, THYR #### [facility] ([id number]) [address], [address] [place] [address] Platelets (Bld) [#/Vol] 316 10*3/uL Normal 150-450 [facility] Comment on above: Performed By: #### C BCA, CMP, 40749-3, THYR #### [facility] ([id number]) [address], [address] [place] [address] RBC COUNT 3.96 X10E12/L Normal 3.80-5.20 [facility] Comment on above: Performed By: #### C BCA, CMP, 12659-3, THYR #### [facility] ([id number]) [address], [address] [place] [address] WBC (Bld) [#/Vol] 7.8 10*3/uL Normal 4.0-11.0 [facility] Comment on above: Performed By: #### C BCA, CMP, 14649-8, THYR #### [facility] ([id number]) [address], [address] [place] [address] COMPREHENSIVE METABOLIC PANE Claudio 06-22-2024 Albumin [Mass/Vol] 3.7 g/dL Normal 3.2-5.3 [facility] Comment on above: Performed By: #### C BCA, CMP, 02465-5, THYR #### [facility] ([id number]) [address], [address] [place] [address] ALP [Catalytic activity/Vol] 50 U/L Normal 39-130 [facility] Comment on above: Performed By: #### C BCA, CMP, 29468-2, THYR #### [facility] ([id number]) [address], [address] [place] [address] ALT [Catalytic activity/Vol] 4 U/L Normal 0-31 [facility] Comment on above: Performed By: #### C BCA, CMP, 71496-3, THYR #### [facility] ([id number]) [address], [address] [place] [address] Anion gap [Moles/Vol] 9 mmol/L Normal 5-15 [facility] Comment on above: Performed By: #### C BCA, CMP, 36439-7, THYR #### [facility] ([id number]) [address], [address] [place] [address] AST [Catalytic activity/Vol] 14 U/L Normal 0-41 [facility] Comment on above: Performed By: #### C BCA, CMP, 25841-2, THYR #### [facility] ([id number]) [address], [address] [place] [address] Bilirubin [Mass/Vol] 0.5 mg/dL Normal 0.3-1.2 [facility] Comment on above: Performed By: #### C BCA, CMP, 33464-6, THYR #### [facility] ([id number]) [address], [address] [place] [address] Calcium [Mass/Vol] 9.1 mg/dL Normal 8.5-10.5 [facility] Comment on above: Performed By: #### C BCA, CMP, 15497-2, THYR #### [facility] ([id number]) [address], [address] [place] [address] Chloride [Moles/Vol] 102 mmol/L Normal 98-109 [facility] Comment on above: Performed By: #### C BCA, CMP, 90193-2, THYR #### [facility] ([id number]) [address], [address] [place] [address] CO2 [Moles/Vol] 26 mmol/L Normal 22-32 [facility] Comment on above: Performed By: #### C BCA, CMP, 12878-0, THYR #### [facility] ([id number]) [address], [address] [place] [address] Creatinine [Mass/Vol] 0.81 mg/dL Normal 0.40-1.00 [facility] Comment on above: Result Comment: METH OD TRACEABLE TO IDMS STANDARD Performed By: #### C BCA, CMP, 62361-2, THYR #### [facility] ([id number]) [address], [address] [place] [address] GFR/1.73 sq M.predicted among non-blacks MDRD (S/P/Bld) [Vol rate/Area] 89 mL/min/{1.73_m2} Normal >59 [facility] Comment on above: Result Comment: Reported eGFR is based on the CKD-EPI 2020 equation that does not use a race coefficient. Performed By: #### C BRENDA ARREDONDO, 77275-5, THYR #### [facility] ([id number]) [address], [address] [place] [address] Glucose [Mass/Vol] 84 mg/dL Normal 65-99 [facility] Comment on above: Performed By: #### C ARNULFO, BRENDA, 09411-4, THYR #### [facility] ([id number]) [address], [address] [place] [address] Potassium [Moles/Vol] 4.3 mmol/L Normal 3.5-5.0 [facility] Comment on above: Performed By: #### C BRENDA ARREDONDO, 26288-5, THYR #### [facility] ([id number]) [address] [place] [address] Protein [Mass/Vol] 6.8 g/dL Normal 6.0-8.0 [facility] Comment on above: Performed By: #### C ARNULFO, CMP, 26793-1, THYR #### [facility] ([id number]) [address] [place] [address] Sodium [Moles/Vol] 137 mmol/L Normal 134-146 [facility] Comment on above: Performed By: #### C BCA, CMP, 75562-1, THYR #### [facility] ([id number]) [address] [place] [address] Urea nitrogen [Mass/Vol] 11 mg/dL Normal 5-23 [facility] Comment on above: Performed By: #### C BCA, CMP, 65011-4, THYR #### [facility] ([id number]) [address], [address] [place] [address] Lipid 1996 panelon 10-17-202 4 Cholesterol [Mass/Vol] 162 mg/dL Normal 150-200 [facility] Comment on above: Performed By: #### Rao ARREDONDO CMP, 31394-0, THYR #### [facility] ([id number]) [address] [place] [address] Cholesterol in HDL [Mass/Vol] 75 mg/dL Normal >39 [facility] Comment on above: Result Comment: HDL <40 mg/dL - High Risk HDL > or = 40mg/dL- Desirable HDL >60 mg/dL - Negative Risk Performed By: #### Rao ARREDONDO, BRENDA, 53492-1, THYR #### [facility] ([id number]) [address] [place] [address] Cholesterol in LDL [Mass/Vol] 71 mg/dL Normal <130 [facility] Comment on above: Result Comment: LDL <100 mg/dL - Desirable LDL >160 mg/dL - High Risk Performed By: #### Rao ARREDONDO CMP, 52842-5, THYR #### [facility] ([id number]) [address], [address] [place] [address] Cholesterol in VLDL [Mass/Vol] 16 mg/dL Normal 0-30 [facility] Comment on above: Performed By: #### Rao ARREDONDO CMP, 66882-0, THYR #### [facility] ([id number]) [address], [address] [place] [address] CHOLESTEROL:HDL 2.2 Normal 1.0-5.0 [facility] Comment on above: Performed By: #### Rao ARREDONDO, BRENDA, 54304-4, THYR #### [facility] ([id number]) [address], [address] [place] [address] Triglyceride [Mass/Vol] 81 mg/dL Normal 27-150 [facility] Comment on above: Performed By: #### C BCA, CMP, 46213-4, THYR #### [facility] ([id number]) [address], [address] [place] [address] THYROID PROFILEon 06-22-2024 Free T4 [Mass/Vol] 1.62 ng/dL High 0.61-1.60 [facility] Comment on above: Performed By: #### C BCA, CMP, 35231-2, THYR #### [facility] ([id number]) [address], [address] [place] [address] TSH 0.02 uIU/mL Low 0.49-4.67 [facility] Comment on above: Performed By: #### C BCA, CMP, 41785-0, THYR #### [facility] ([id number]) [address], [address] [place] [address] FREE T3on 03-06-2024 Free T3 [Mass/Vol] 3.30 pg/mL Normal 2.50-3.90 [facility] Comment on above: Performed By: #### T HYR, 3051-0, 8098-6 #### [facility] ([id number]) [address] [place] [address] #### THYROG #### [facility] ([id number]) [address] [place] [address], [place] [address] THYROGLOBULIN ABon 4 Thyroglobulin Ab Qn [IU]/mL Normal <4.0 [facility] Comment on above: Performed By: #### T HYR, 305-0, 8098-6 #### [facility] ([id number]) [address] [place] [address] #### THYROG #### [facility] ([id number]) [address] [place] [address] THYROGLOBULIN, S/Kin 024 THYROGLOBULIN <0.5 Low 1.3-31.8 [facility] Comment on above: Result Comment: NOTE Results [...] developed and its performance characteristics determined by [employer] [facility]. It has not been cleared or approved by the US Food and Drug Administration. This test was performed in a CLIA certified laboratory and is intended for clinical purposes. Performed By: [facility] [address] [place] [address] Aerial Survey Technician: Dawit Garcia MD, PhD CLIA Number: [id number] Performed By: #### T CATHY, 3051-0, 8098-6 #### [facility] ([id number]) [address] [facility], [address] [place] [address] #### THYROG #### [facility] ([id number]) [address] [place] [address] THYROID PROFILEon 03-06-2024 Free T4 [Mass/Vol] 1.17 ng/dL Normal 0.61-1.60 [facility] Comment on above: Performed By: #### T SANDYR, 3051-0, 8098-6 #### [facility] ([id number]) [address] [place] [address] #### THYROG #### [facility] ([id number]) [address] [facility] [address] [address], [place] [address] TSH 0.39 uIU/mL Low 0.49-4.67 [facility] Comment on above: Performed By: #### T HYR, 3051-0, 8098-6 #### [facility] ([id number]) [address] [place] [address] #### THYROG #### [facility] ([id number]) [address] [facility] [address], [place] [address] Established Visit (Otolaryng ology)on 03-23-2022 Established Visit [...] -advised her to establish care with local gluing machine offbearer to discuss BOB. They may just decide [...] DAILY Vitals Vital Signs Recorded: 19Dec2021 04:25PM Eiqdnfqpxlw54.8 F Height6 ft 1 in Pgoykt737 lb 9.6 oz BMI Bjtcibssiq46.33 kg/m2 BSA Calculated2.71 Tobacco Useb) No Fall [...] intact. Neck incision healing well Results/Data Surgical [id number] 09:52AMEdy Dominguez [Dec 18, 2021 4:12PM Edy Dominguez] f/u 12/19 Test NameResultFlagReference Case Surgical Pathology(Report) Name LAURO PINTO Pathologist: LILLI AMAYA ASA, MD, PhD Date of Procedure: 12/04/2021 Date Received: 12/04/2021 Date Reported 12/10/2021 Submitting Physician: EDY DOMINGUEZ MD Location: [facility] External # FINAL DIAGNOSIS A. RIGHT HEMITHYROID [...] in toto superior to inferior AMD amd/12/06/2021 [facility] Department of Pathology [address] [place] [address] Procedure 'Scores and Scales' Signatures Electronically signed by : Edy Dominguez MD; Dec 19 2021 7:05PM EST (Author) Normal [employer] Tobacco Screening.on 022 Fall risk assessment a) No falls within [...] provided Objective Data: Objective Information: T PRBPMAPSpO2 Value36.27326869/016556% Date/Time12/05 4:004 4:004 4: 4: 17:004 4:00 Range(36.2C - 37.2C [...] 2021 10:00 pm000 Dec 04, 2021 2:00 [id number] The Intake and Output Totals for the last 24 hours are: IntakeOutputNet [id number] Recent Lab Results: Results: RFP: 12/04/2021 11:09 [...] Updated: 05-Dec-2021 07:10 by Edy Dominguez) Normal [facility] MAGNESIUMon 12-05-2021 Magnesium [Mass/Vol] 1.80 mg/dL Normal 1.60 - 2.40 [facility] Comment on above: Performed By: #### M G #### [facility] [id number] [place] [address] Magnesium, Serumon Magnesium [Mass/Vol] 1.80 mg/dL See Below MG-Otolaryngol [facility] Work Phone: Comment on above: Reference Range: 1.6 0 - 2.40 PARATHYROID HORMONE,INTACTon 12-05-2021 PARATHYROID HORMONE,INTACT 77.2 pg/mL Normal 12.0 - 88.0 [facility] Comment on above: Performed By: #### P TH #### [address] [address] Parathormone Intact, Serumon 12-05-2021 Parathyrin.intact [Mass/Vol] 77.2 pg/mL See Below MG-Otolaryngol [facility] Work Phone: Comment on above: Reference Range: 12. 0 - 88.0 RENAL FUNCTION PANELon 12-05 Albumin [Mass/Vol] 3.4 g/dL Normal 3.4 - 5.0 [facility] Comment on above: Performed By: #### R ENAL #### [address] [address] Anion gap [Moles/Vol] 11 mmol/L Normal 10 - 20 [facility] [place] above: Performed By: #### R ENAL #### [address] [address] Calcium [Mass/Vol] 8.5 mg/dL Low 8.6 - 10.3 [facility] Comment on above: Performed By: #### R ENAL #### [address] [address] Chloride [Moles/Vol] 105 mmol/L Normal 98 - 107 [facility] [place] above: Performed By: #### R ENAL #### [address] [address] Creatinine [Mass/Vol] 0.77 mg/dL Normal 0.50 - 1.05 [facility] [place] above: Performed By: #### R ENAL #### [address] [address] eGFR FEMALE >90 Normal >90 [facility] [place] above: Result Comment: CALC ULATIONS OF ESTIMATED GFR ARE PERFORMED USING THE 2020 CKD-EPI STUDY REFIT EQUATION WITHOUT THE RACE VARIABLE FOR THE IDMS-TRACEABLE CREATININE METHODS. [email or web address]://jasn.asnjournals.org/[email or web address] Performed By: #### R ENAL #### [address] [address] Glucose [Mass/Vol] 123 mg/dL High 74 - 99 [facility] [facility] Comment on above: Performed By: #### R ENAL #### [address] [address] HCO3 (Bld) [Moles/Vol] 25 mmol/L Normal 21 - 32 [facility] Comment on above: Performed By: #### R ENAL #### [address] [address] Phosphate [Mass/Vol] 3.6 mg/dL Normal 2.5 - 4.9 [facility] Comment on above: Result Comment: The performance characteristics of phosphorus testing in heparinized plasma have been validated by the individual laboratory site where testing is performed. Testing on heparinized plasma is not approved by the FDA; however, such approval is not necessary. Performed By: #### R ENAL #### [address] [address] Potassium [Moles/Vol] 4.4 mmol/L Normal 3.5 - 5.3 [facility] Comment on above: Performed By: #### R ENAL #### [address] [address] Sodium [Moles/Vol] 137 mmol/L Normal 136 - 145 [facility] Comment on above: Performed By: #### R ENAL #### [address] [address] Urea nitrogen [Mass/Vol] 17 mg/dL Normal 6 - 23 [facility] Comment on above: Performed By: #### R ENAL #### [address] [address] Renal Function Panelon 12-05 Albumin BCP dye [Mass/Vol] 3.4 g/dL 3.4 - 5.0 [facility] Work Phone: Anion gap [Moles/Vol] 11 mmol/L 10 - 20 [facility] Work Phone: Calcium [Mass/Vol] 8.5 mg/dL below low threshold 8.6 - 10.3 [facility] Work Phone: Chloride [Moles/Vol] 105 mmol/L 98 - 107 [facility] Work Phone: CO2 [Moles/Vol] 25 mmol/L 21 - 32 [facility] Work Phone: Creatinine [Mass/Vol] 0.77 mg/dL See Below [facility] Work Phone: Comment on above: Reference Range: 0.5 0 - 1.05 Glucose [Mass/Vol] 123 mg/dL above high threshold 74 - 99 [facility] Work Phone: Phosphate [Mass/Vol] 3.6 mg/dL 2.5 - 4.9 [facility] Work Phone: Comment on above: The performance ya acteristics of phosphorus testing in heparinized plasma have been validated by the individual laboratory site where testing is performed. Testing on heparinized plasma is not approved by the FDA; however, such approval is not necessary. Potassium [Moles/Vol] 4.4 mmol/L 3.5 - 5.3 [facility] Work Phone: Sodium [Moles/Vol] 137 mmol/L 136 - 145 [facility] Work Phone: Urea nitrogen [Mass/Vol] 17 mg/dL 6 - 23 [facility] Work Phone: Renal Function Panel >90 >90 [facility] Work Phone: Comment on above: CALCULATIONS OF ROSALIA MATED GFR ARE PERFORMED USING THE 2020 CKD-EPI STUDY REFIT EQUATION WITHOUT THE RACE VARIABLE FOR THE IDMS-TRACEABLE CREATININE METHODS.https://jasn.asnjournals.org/content//ASN.2 690127386 Admission Risk Screen - Adul ton 12-04-2021 Admission Risk Screen - Adult Allergies: Allergies: Succinylcholine Chloride: Unknown (Severe) Patient Verification: New W ID Band Applied in my Departmentno Type of ID Patient is WearingW wristband, but not applied here Patient Transferred from Other Facility ([facility], [facility],etc)no Patient Identity Verified Bypatient [...] AlertFor Ebola-like Symptoms: Isolate Patient and Notify Provider/Research And Development Manager For Contact: Notify Provider/Research And Development Manager Advance Directive: Advance Directive/DNRno Advance Directive [...] Learning Preferencesverbal instruction Cultural Considerationsnone Developmental Considerationsnone Religion Considerationsnone Learning Assessment (Other Learner): Other learner availableno Depression Screen: During the past month, have you often been bothered by feeling down, depressed or hopelessno During the past month, have you often had little interest or pleasure in doing thingsno Have you had any thoughts of harming anyone elseno [place] Suicide: Risk Screen Not Applicable/Able to Answerable to be screened In the Past Month: Have you wished you were or could go to sleep and not wake upno(1) In the Past Month: Have you had any actual thoughts of killing yourself no(1) Lifetime: Have you ever done, started to do, or prepared to do anything to end your lifeno(1) [place] Suicide Risknegative Adult Nutrition Screen: Have you [...] Spiritual Screen: Are there any cultural, spiritual, denominational practices/values/needs that are important for us to knowno CAGE: Is this an injured patient at a Trauma Center ([facility]): no Vaccinations: Vaccination - Influenza Vaccination Screen: Is it flu season (between and December 04)Yes Screening for identified contraindications to influenza vaccination patient/caregiver refusal Vaccination - Pneumonia Vaccination Screen: Patient has received a previous pneumonia vaccine:no/unknown... Immunocompetent persons with underlying chronic conditions or reside in halfway care facilitiesnone of these conditions Persons with Functional or Anatomic Asplenianone of these conditions Immunocompromised Personsnone of these conditions Pneumonia v (more content not included)... Normal [facility] CORONAVIRUS 2019, SCREEN ASY MPTOMATICon 12-04-2021 DATE OF SYMPTOM ONSET [YYYYMMDD]? Canceled Normal [facility] Comment on above: Order Comment: TEST PT/INR WAS CANCELLED, 07/07/2021 12:20 SPECIMEN CLOTTED.PLEASE RESUBMITDUPLICATE ORDER. Performed By: #### P TINR #### [place] [address] SARS-CoV-2 (COVID-19) RNA APURVA+probe Ql (Unsp spec) Canceled Normal [facility] Comment on above: Order Comment: TEST PT/INR WAS CANCELLED, 07/07/2021 12:20 SPECIMEN CLOTTED.PLEASE RESUBMITDUPLICATE ORDER. Result Comment: . This test has received FDA Emergency Use Authorization (EUA) and has been verified by [facility]. This test is only authorized for the duration of time that circumstances exist to justify the authorization of the emergency use of in vitro diagnostic tests for the detection of SARS-CoV-2 virus and/or diagnosis of COVID-19 infection under section 564(b)(1) of the Act, 21 U.S.C. 360bbb-3(b)(1), unless the authorization is terminated or revoked sooner. [facility] is certified under CLIA-88 as qualified to perform high complexity testing. Testing is performed in the [facility] laboratory located at [address] [place] [address]. SARS-CoV-2/Flu/RSV Multiplex Test: Fact sheet for providers: https://www.fda.gov/media/036633/download Fact sheet for patients: https://www.fda.gov/media/343000/download Performed By: #### P TINR #### [place] [address] Lab Specimen Source Nasal, Nasopharyngeal Normal [facility] Comment on above: Order Comment: TEST PT/INR WAS CANCELLED, 07/07/2021 12:20 SPECIMEN CLOTTED.PLEASE RESUBMITDUPLICATE ORDER. Performed By: #### P TINR #### [place] [id number] Clinical Intervention - Jona osorio 12-04-2021 Clinical Intervention - Pharmacy Pharmacist's Clinical Intervention: Is this intervention medication reconciliation related: yes, History Electronic Signatures: Feliciano Martínez ([email or web address]) (Signed 04-Dec-2021 13:41) Authored: Pharmacist's Clinical Intervention Last Updated: 04-Dec-2021 13:41 by Feliciano Martínez ([facility]) Normal [facility] Coronavirus 2019 RNA by PCR, Screening Asymptomticon 12-04-2021 Date and time of symptom onset Canceled [facility] Work Phone: Coronavirus 2019 RNA by PCR, Screening Asymptomtic Canceled [facility] Work Phone: Comment on above: SOURCE: Nasal, Nasop haryngeal.This test has received FDA Emergency Use Authorization (EUA) and has been verified by [facility]. This test is only authorized for the duration of time that circumstances exist to justify the authorization of the emergency use of in vitro diagnostic tests for the detection of SARS-CoV-2 virus and/or diagnosis of COVID-19 infection under section 564(b)(1) of the Act, 21 U.S.C. 360bbb-3(b)(1), unless the authorization is terminated or revoked sooner. [facility] is certified under CLIA-88 as qualified to perform high complexity testing. Testing is performed in the [facility] laboratory located at [address] [place] [address].SARS-CoV-2/Flu/RSV Multiplex Test: Fact sheet for providers: https://www.fda.gov/media/025103/downloadFact sheet for patients: https://www.fda.gov/media/462124/download Discharge Vzomekp1yi 022 Discharge Profile2 Discharge Orders: Anticipated Discharge Date: Anticipated Discharge [id number]-[id number] Anticipated Discharge Time11:00 Problem List: Additional Dx: [...] (POV) Call to Schedule in2 weeks Phone [phone], please call with any questions CommentsYou will [...] REVIEW of Orders, Appointments, Gold Form - Belt Machine Operator Summary Alejandra Shukla (ASST N MGR) (Signed 05-Dec-19 (more content not included)... Normal [facility] HCG,URINEon 12-04-2021 Beta HCG ( test) Ql (U) Negative Normal Negative [facility] Comment on above: Performed By: #### H CGU #### [facility] [address] [place] [address] No Panel Informationon 12-04 Name JEAN-CLAUDE PINTO Pathologist: LILLI AMAYA ASA, MD, PhD Date of Procedure: 12/04/2021 Date Receive [facility] Work Phone: Order Reconciliationon 12-04 Order Reconciliation [...] orally christina (more content not included)... Normal [facility] Order Reconciliation Page 1 Admission Reconciliation Document Reconciliation Type: Admission from OR requested on behalf of Modesto Blackburn (Resident) done by Modesto Blackburn ( (Resident)) Admission from OR - Reconciliation: 04-Dec-2021 05:06 by: Modesto Blackburn ( (Resident)) Home MedicationsEnteredLast Dose TakenReconciled with current Order Reconciliation Comment/ Additional Information omeprazole 20 mg oral delayed release capsule 1 cap(s) orally once a day 04-Dec-2021 Reviewed and Held traMADol 50 mg oral tablet 1 tab(s) orally every 6 hours as needed for pain not controlled with tylenol an motrin, ICD10: [id number] Reviewed and Held Vraylar 1.5 mg oral capsule 1 cap(s) orally once a aif06-Hee-1077 Cariprazine Capsule (VRAYLAR)DOSE = 1.5 mg Oral DailyVraylar 1.5 mg oral capsule continued as the inpatient order Cariprazine Zoloft 25 mg oral tablet 0.5 tab(s) orally once a [id number]-1128 Reviewed and Held Additional Current Orders Acetaminophen [...] Every 2 Hours, PRN Sore Throat Normal [facility] PARATHYROID HORMONE,INTACTon 12-04-2021 PARATHYROID HORMONE,INTACT 38.9 pg/mL Normal 12.0 - 88.0 [facility] Comment on above: Performed By: #### P TH #### [facility] [address] [place] [address] Parathormone Intact, Serumon 12-04-2021 Parathyrin.intact [Mass/Vol] 38.9 [...] applicable(1) Weight in kg155.9 kilogram(s)(2) Weight in wlj568.7 pound(s) Weight Methodstated Scale Typebed Height in [...] Chloride: Drug, Unknown (Severe), Active Electronic Signatures: iNsha Chiu (RN) (Signed 04-Dec-2021 15:45) Authored: Initial Info, General Health, RSP Based Care, Substance, Health Mgmt, Relationship/Environ, Additional Information Last Updated: 04-Dec-2021 15:45 by Nisha Chiu (RN) References: 1. Data Referenced From Patient Profile - Preop v3 04-Dec-2021 06:23 2. Data Referenced From 1. Vital Signs 04-Dec-2021 06:23 3. Data Referenced From History and Physical - Surgery > 30 days 04-Dec-2021 07:30 4. Data Referenced From Patient Profile - Adult v2 10-Jul-2021 12:57 Normal [facility] Patient Profile - Preop v3on 12-04-2021 Patient Profile - Preop v3 Patient Profile - Preop: Initial Info: Patient DemographicsName: LAURO PINTO Date: 1975 Address: [address] [place] [address] Primary Phone [phone] How to be Addressedmichelle Spoken Language PreferredEnglish Source of Informationpatient Stated Reason for Admissionthyroidectomy Primary Contact Name and Numberbrenda-mother Limitations on Visitors/Phone Callsonly immediate family may visit Medications Brought to Hospitalno General Health: Weight in kg155.9 kilogram(s) Weight in czh190.7 pound(s) Weight Methodstated Height in feet6 feet [...] Tobacco Use: Tobacco Useno Pre-op Checklist: Arrival [id number] Arrival Time06:03 Procedure Typethyroidectomy NPOyes Last Food Ykhskb78-Iby-4102 20:00 Last Clear Fluid Wshqup08-Wxu-9368 20:00 ID Band On Patientpatient ID (name), [...] Past Medical History, Active Electronic Signatures: Portia Naylor) (Signed 04-Dec-2021 06:47) Authored: Initial Info, General Health, Health Mgmt, Relationship/Environ, Tobacco Use, Pre-op Checklist, Additional Information Last Updated: 04-Dec-2021 06:47 by Portia Naylor (SALLY) Normal [facility] RENAL FUNCTION PANELon 12-04 Albumin [Mass/Vol] 3.6 g/dL Normal 3.4 - 5.0 [facility] Comment on above: Performed By: #### R ENAL #### [facility] [address] [place] [address] Anion gap [Moles/Vol] 13 mmol/L Normal 10 - 20 [facility] Comment on above: Performed By: #### R ENAL #### [address] [place] [address] Calcium [Mass/Vol] 8.5 mg/dL Low 8.6 - 10.3 [facility] Comment on above: Performed By: #### R ENAL #### [address] [address] Chloride [Moles/Vol] 106 mmol/L Normal 98 - 107 [facility] Comment on above: Performed By: #### R ENAL #### [address] [address] Creatinine [Mass/Vol] 0.89 mg/dL Normal 0.50 - 1.05 [facility] Comment on above: Performed By: #### R ENAL #### [address] [address] GFR/1.73 sq M.predicted among non-blacks MDRD (S/P/Bld) [Vol rate/Area] 81 mL/min/{1.73_m2} Normal >90 [facility] Comment on above: Result Comment: CALC ULATIONS OF ESTIMATED GFR ARE PERFORMED USING THE 2020 CKD-EPI STUDY REFIT EQUATION WITHOUT THE RACE VARIABLE FOR THE IDMS-TRACEABLE CREATININE METHODS. https://jasn.asnjournals.org/content//ASN.209932296 8 Performed By: #### R ENAL #### [address] [address] Glucose [Mass/Vol] 116 mg/dL High 74 - 99 [facility] Comment on above: Performed By: #### R ENAL #### [address] [address] HCO3 (Bld) [Moles/Vol] 21 mmol/L Normal 21 - 32 [facility] Comment on above: Performed By: #### R ENAL #### [address] [address] Phosphate [Mass/Vol] 2.5 mg/dL Normal 2.5 - 4.9 [facility] Comment on above: Result Comment: The performance characteristics of phosphorus testing in heparinized plasma have been validated by the individual laboratory site where testing is performed. Testing on heparinized plasma is not approved by the FDA; however, such approval is not necessary. Performed By: #### R ENAL #### [address] [place] [address] Potassium [Moles/Vol] 4.1 mmol/L Normal 3.5 - 5.3 [facility] Comment on above: Performed By: #### R ENAL #### [address] [address] Sodium [Moles/Vol] 136 mmol/L Normal 136 - 145 [facility] Comment on above: Performed By: #### R ENAL #### [address] [place] [address] Urea nitrogen [Mass/Vol] 15 mg/dL Normal 6 - 23 [facility] Comment on above: Performed By: #### R ENAL #### [address] [place] [address] Renal Function Panelon 12-04 Albumin BCP dye [Mass/Vol] 3.6 g/dL 3.4 - 5.0 [facility] Work Phone: Anion gap [Moles/Vol] 13 mmol/L 10 - 20 [facility] Work Phone: Calcium [Mass/Vol] 8.5 mg/dL below low threshold 8.6 - 10.3 [facility] Work Phone: Chloride [Moles/Vol] 106 mmol/L 98 - 107 [facility] Work Phone: CO2 [Moles/Vol] 21 mmol/L 21 - 32 [facility] Work Phone: Creatinine [Mass/Vol] 0.89 mg/dL See Below [facility] Work Phone: Comment on above: Reference Range: 0.5 0 - 1.05 Glucose [Mass/Vol] 116 mg/dL above high threshold 74 - 99 [facility] Work Phone: Phosphate [Mass/Vol] 2.5 mg/dL 2.5 - 4.9 [facility] Work Phone: Comment on above: The performance ya acteristics of phosphorus testing in heparinized plasma have been validated by the individual laboratory site where testing is performed. Testing on heparinized plasma is not approved by the FDA; however, such approval is not necessary. Potassium [Moles/Vol] 4.1 mmol/L 3.5 - 5.3 [facility] Work Phone: Sodium [Moles/Vol] 136 mmol/L 136 - 145 [facility] [facility] Work Phone: Urea nitrogen [Mass/Vol] 15 mg/dL 6 - 23 [facility] Work Phone: Renal Function Panel 81 {mL/min/1.73m2} >90 [facility] Work Phone: Comment on above: CALCULATIONS OF ROSALIA MATED GFR ARE PERFORMED USING THE 2020 CKD-EPI STUDY REFIT EQUATION WITHOUT THE RACE VARIABLE FOR THE IDMS-TRACEABLE CREATININE METHODS.https://jasn.asnjournals.org/content//ASN.2 353612877 [facility] Surgical Pathology Depar tmenton 12-04-2021 [facility] Surgical Pathology Department Name LAURO PINTO Pathologist: LILLI AMAYA ASA, MD, PhD Date of Procedure: 12/04/2021 Date Received: 12/04/2021 Date Reported 12/10/2021 Submitting Physician: EDY DOMINGUEZ MD Location: [facility] Other External # FINAL DIAGNOSIS [...] in toto superior to inferior AMD amd/12/06/2021 [facility] Department of Pathology [address] [place] [address] Normal [facility] Comment on above: Performed By: #### [facility] #### [facility] Surgical Pathology Department [address] [place] [address] Urine Teston 12-04 HCG ( test) Ql (U) Negative Negative [facility]ol [facility]FAA[facility] Work Phone: Established Visit (Otolaryng ology)on 10-27-2021 [...] MOUTH ONCE DAILY Vitals Vital Signs Recorded: [id number] 09:32AM Jofofqilval15.9 F Untbgkyf368 Cmmdvdndy34 Height6 ft 1 in Eajovy304 lb BMI Hbxkwzmwmm88.25 kg/m2 BSA Calculated2.71 Tobacco Useb) No Fall [...] Oct 27 2021 10:15AM EST (Author) Normal [place] [place] Risk Screeningon 10-27 Fall risk assessment a) No falls within the last year [facility] Work Phone: Tobacco use status CPHS b) No [facility] Work Phone: COVID + FLU Quick Testingon 08-16-2021 SARS-CoV-2 (COVID-19) RNA APURVA+probe Ql (Unsp spec) Positive [facility] Other COVID + FLU Quick Testing Negative [facility] Other Established Visit (Otolaryng ology)on 07-21-2021 Established [...] MOUTH ONCE DAILY Vitals Vital Signs Recorded: 57Way1214 02:48PM Fbaxvquzihs88.9 F Ziohksvv065 Rjlnqlnev21 Height6 ft 1 in Eoyvoz759 lb BMI Ewpomqhmxx85.59 kg/m2 BSA Calculated2.69 Tobacco Useb) No Fall Screeninga) No falls within the last year Pain Scale2 Physical Exam Steri-Strips removed, neck incision healing well, no sign of infection or fluid collection 'Scores and Scales' Signatures Electronically signed by : Edy Dominguez MD; Jul 25 2021 4:35AM EST (Author) Normal [facility] Tobacco Screening.on 021 Fall risk assessment a) No falls within the last year [facility] Work Phone: Tobacco use status CPHS b) No [facility] Work Phone: Daily Progress Note-ENTon Daily Progress [...] today Objective Data: Objective Information: T PRBPSpO2 [id number]/5698% Date/Time07/10 22:5307/10 22:5307/10 19:40109/09 22:5307/10 22:53 Range(36.2C - 36.8C ) (69 - 83 ) (13 - 18 ) (108 - 133 )/ (56 - 73 ) (97% - 98% ) As of 10-Jul-2021 16:01:00, patient is on 2 L/min of oxygen via room air. Pain reported at 07/11 2:45: 4 = Moderate ---- Intake and Output ----- Mn/Dy/Year TimeIntakeOutputNet Jul 11, 2021 6:00 [id number] Jul 10, 2021 10:00 [id number] Jul 10, 2021 2:00 [id number] The Intake and Output Totals for the last 24 hours are: IntakeOutputNet [id number] Recent Lab Results: Results: Coagulation: 07/10/2021 07:50 PT / 12.0 / -------< INR < 1.0 PTT\ 26 \ Assessment and Plan: Comorbidities: Comorbidityobesity Obesitymorbid obesity (BMI 40+) Code Status: Code StatusFull Code Electronic Signatures: Edy Dominguez) (Signed 11-Jul-2021 06:06) Authored: Service, Subjective Data, Objective Data, Assessment and Plan, Note Completion Last Updated: 11-Jul-2021 06:06 by Edy Dominguez) Normal [facility] APTTon 07-10-2021 aPTT Coag (Bld) [Time] 26 s Normal 25 - 35 [facility] Comment on above: Result Comment: THE APTT IS NO LONGER USED FOR MONITORING UNFRACTIONATED HEPARIN THERAPY. FOR MONITORING HEPARIN THERAPY, USE THE HEPARIN ASSAY. Performed By: #### A PTT #### [facility] [address] [facility] [place] [id number] Activated Partial Thrombopla stin Timeon 07-10-2021 aPTT [...] AlertFor Ebola-like Symptoms: Isolate Patient and Notify Provider/Research And Development Manager For Contact: Notify Provider/Research And Development Manager Advance Directive: Advance Directive/DNRno Advance Directive [...] demonstration; verbal instruction Cultural Considerationsnone Developmental Considerationsnone Religion Considerationsnone Learning Assessment (Other Learner): Other learner availableno Depression Screen: During the past month, have you often been bothered by feeling down, depressed or hopelessno During the past month, have you often had little interest or pleasure in doing thingsno Have you had any thoughts of harming anyone elseno [place] Suicide: Risk Screen Not Applicable/Able to Answerable to be screened In the Past Month: Have you wished you were or could go to sleep and not wake upno(1) In the Past Month: Have you had any actual thoughts of killing yourself no(1) Lifetime: Have you ever done, started to do, or prepared to do anything to end your lifeno(1) [place] Suicide Risknegative Adult Nutrition Screen: (more content not included)... Normal [facility] Discharge Givtdsw6xg 021 Discharge Profile2 Discharge Orders: Anticipated Discharge Date: Anticipated Discharge Mhgn49-Ppt-7212 Anticipated Discharge Time11:00 Problem List: Medical History: Thyroid nodule: Catalog Name: Nontoxic single thyroid nodule Significant Events: Surgical Procedure: Clinical Events This Visit, 10-Jul-2021, 1. Left hemithyroid lobectomy Hospital Providers: Provider RoleProvider Name Edy Morrow DNAR: DNAR Status: none Activity: activity as [...] Course (Home Care/Gold Form), Gold Form - Belt Machine Operator Summary Edy Dominguez) (Signed 11-Jul-2021 06:07) Authored: Discharge Orders, Hospital Course (Home Care/Gold Form), Provider FINAL REVIEW of Orders Last Updated: 11-Jul-2021 06:07 by Edy Dominguez) Normal [facility] HCG,URINEon 07-10-2021 Beta HCG ( test) Ql (U) Negative Normal Negative [facility] Comment on above: Performed By: #### H CGU #### [facility] [address] [place] [address] Laboratory - Coagulationon 1 09-09-2020 INR Coag (PPP) [Relative time] 1.0 {INR} 0.9 - 1.1 [facility] Work Phone: PT Coag (PPP) [Time] 12.0 s See Below [facility] Work Phone: Comment on above: Reference Range: 10. 1 - 13.3 No Panel Informationon 07-10 Name JEAN-CLAUDE PINTO Pathologist: LILLI AMAYA ASA, MD, PhD Date of Procedure: 07/10/2021 Date Receive [facility] Work Phone: Order Reconciliationon 07-10 Order Reconciliation [...] 0.5 tab(s) orally once a day Normal [facility] Order Reconciliation Page 1 Admission Reconciliation Document Reconciliation Type: Admission from OR requested on behalf of Juan Becerra (Resident) done by Juan Becerra ( (Resident)) Admission from OR - Reconciliation: 10-Jul-2021 08:48 by: Juan Becerra ( (Resident)) Home MedicationsEnteredLast Dose TakenReconciled with current Order Reconciliation Comment/ Additional Information omeprazole 20 mg oral delayed release capsule 1 cap(s) orally once a day [id number] PM Pantoprazole Enteric Coated Tablet (PROTONIX)DOSE = 40 mg Oral DailyNotes from Pharmacy: Substitution for Omeprazole 20 mg Oral Capsule Dailyomeprazole 20 mg oral delayed release capsule continued as the inpatient order Pantoprazole Vraylar 1.5 mg oral capsule 1 cap(s) orally once a [id number] PM Cariprazine Capsule (VRAYLAR)DOSE = 1.5 mg Oral DailyVraylar 1.5 mg oral capsule continued as the inpatient order Cariprazine Zoloft 25 mg oral tablet 0.5 tab(s) orally once a [id number] PM Sertraline - PEDS Tablet (ZOLOFT)DOSE = [...] and ambulat (more content not included)... Normal [facility] PT/INRon 07-10-2021 PT Coag (PPP) [Time] 12.0 s Normal 10.1 - 13.3 [facility] Comment on above: Performed By: #### M G #### [address] [place] [address] PT, INR 1.0 Normal 0.9 - 1.1 [facility] Comment on above: Performed By: #### M G #### [address] [place] [address] Patient Profile - Adult v2on 07-10-2021 Patient Profile - Adult v2 Profile: Initial Info: How to be Addressedmichelle(1) Spoken Language PreferredEnglish (1) Source of Informationpatient Stated Reason for Admissionleft thyroidectomy Primary Contact Name and Numberheather [phone] Wants Family/Rep Notified of Admissionyes, primary contact Notify PCPnotify PCP Informed of Patient Visiting Rightsyes Arrived FromOR Was Admitted To in Past 90 Daysnone Patient Belongingsremains with patient Patient Belongings Remaining with Patientclothing; cell phone/electronics; purse/wallet; Purse, clothing, cell phone Medications Brought to Hospitalno General Health: Blood Avoidance/Restrictionsnone (1) Previous Transfusion Reactionno(1) Weight in kg152.9 kilogram(s) Weight in zlj656 pound(s) Weight Methodstated Scale Typestanding Height in [...] no (1) Are You Currently Breastfeedingno (1) HANDER IN 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 Barriers to Managing Healthnone Relationship/Environ: Living [...] Profile - Preop v3 07-Jul-2021 11:02 Normal [facility] Patient Profile - Preop v3on 07-10-2021 Patient Profile - Preop v3 Patient Profile - Preop: Initial Info: Patient DemographicsName: LAURO PINTO Date: 1975 Address: [address] [place] [address] Primary Phone [phone] How to be Addressedmichelle Spoken Language PreferredEnglish Source of Informationpatient Stated Reason for Admissionleft thyroidectomy Primary Contact Name and Numberheather [phone] Patient Belongingsnone Medications Brought to Hospitalno General [...] child(fely) Living Arrangementshouse Resource/Environmental Concernsnone [facility] Anticipated at Transitionnone Tobacco Use: Tobacco Useno Pre-op Checklist: Arrival [id number] Arrival Time06:45 Procedure Typeleft hemithyroidectomy NPOyes Last Food [id number] 18:00 Last Clear Fluid [id number]-[id number]-7290 06:20 ID Band On Patientpatient ID (name) [...] Update < 30 days 10-Jul-2021 07:14 Normal [facility] Surgical Pathology Depar tmenton 07-10-2021 [facility] Surgical Pathology Department Name LAURO PINTO Pathologist: [...] nodule(s) or nodular follicular disease ADDITIONAL TESTING STUDIO TECHNICIAN VIDEO OPERATOR BLOCKS: Normal Block: A20 Tumor Block: A8, [...] and has a heterogeneous, gelatinous cut surface. Hose Inspector And Patcher sections of the specimen are submitted in 20 cassettes. A 1 superior lobe, telephone claims representative perpendicular sections 2-15 superior to inferior, telephone claims representative sections 16 inferior lobe, telephone claims representative perpendicular sections 17 isthmus resection margin, en face 18-20 telephone claims representative sections of isthmus, from margin to lobe DLS dls/07/14/2021 [facility] Department of Pathology [address] [place] [address] Normal [facility] Comment on above: Performed By: #### U HCS #### [facility] Surgical Pathology Department [address] [facility] [address] Urine Teston 07-10 HCG ( test) Ql (U) Negative Negative [facility] Work Phone: APTTon 07-07-2021 APTT Canceled Normal [facility] Comment on above: Order Comment: TEST APTT WAS CANCELLED, 07/07/2021 12:20 SPECIMEN CLOTTED.PLEASE RESUBMIT. Result Comment: THE APTT IS NO LONGER USED FOR MONITORING UNFRACTIONATED HEPARIN THERAPY. FOR MONITORING HEPARIN THERAPY, USE THE HEPARIN ASSAY. Performed By: #### A PTT #### [address] [address] Activated Partial Thrombopla stin Timeon 07-07-2021 aPTT Coag (PPP) [Time] Canceled [facility] Work Phone: Comment on above: THE APTT IS NO LONGE R USED FOR MONITORING UNFRACTIONATED HEPARIN THERAPY. FOR MONITORING HEPARIN THERAPY, USE THE HEPARIN ASSAY. CBC AND DIFFERENTIALon 07-07 % AUTOMATED IMMATURE GRAN 0.3 % Normal 0.0 - 0.9 [facility] Comment on above: Result Comment: Lizeth ture Granulocyte Count (IG) includes promyelocytes, myelocytes and metamyelocytes but does not include bands. Percent differential counts (%) should be interpreted in the context of the absolute cell counts (cells/L). Performed By: #### P TINR #### [address] [address] Basophils (Bld) [#/Vol] 0.03 10*3/uL Normal 0.00 - 0.10 [facility] Comment on above: Performed By: #### P TINR #### [address] [address] Basophils/100 WBC (Bld) 0.4 % Normal 0.0 - 2.0 [facility] Comment on above: Performed By: #### P TINR #### [address] [address] Eosinophils (Bld) [#/Vol] 0.10 10*3/uL Normal 0.00 - 0.70 [facility] Comment on above: Performed By: #### P TINR #### [address] [address] Eosinophils/100 WBC (Bld) 1.5 % Normal 0.0 - 6.0 [facility] Comment on above: Performed By: #### P TINR #### [address] [address] Erythrocyte distribution width (RBC) [Ratio] 13.9 % Normal 11.5 - 14.5 [facility] Comment on above: Performed By: #### P TINR #### [address] [address] Hematocrit (Bld) [Volume fraction] 39.1 % Normal 36.0 - 46.0 [facility] Comment on above: Performed By: #### P TINR #### [address] [address] Hemoglobin (Bld) [Mass/Vol] 11.7 g/dL Low 12.0 - 16.0 [facility] Comment on above: Performed By: #### P TINR #### [address] [address] Lymphocytes (Bld) [#/Vol] 1.82 10*3/uL Normal 1.20 - 4.80 [facility] Comment on above: Performed By: #### P TINR #### [address] [address] Lymphocytes/100 WBC (Bld) 26.6 % Normal 13.0 - 44.0 [facility] Comment on above: Performed By: #### P TINR #### [address] [address] MCHC (RBC) [Mass/Vol] 29.9 g/dL Low 32.0 - 36.0 [facility] Comment on above: Performed By: #### P TINR #### [address] [address] MCV (RBC) [Entitic vol] 89 fL Normal 80 - 100 [facility] Comment on above: Performed By: #### P TINR #### [address] [address] Monocytes (Bld) [#/Vol] 0.40 10*3/uL Normal 0.10 - 1.00 [facility] Comment on above: Performed By: #### P TINR #### [address] [address] Monocytes/100 WBC (Bld) 5.8 % Normal 2.0 - 10.0 [facility] Comment on above: Performed By: #### P TINR #### [address] [address] Neutrophils (Bld) [#/Vol] 4.47 10*3/uL Normal 1.20 - 7.70 [facility] Comment on above: Performed By: #### P TINR #### [address] [address] Neutrophils/100 WBC (Bld) 65.4 % Normal 40.0 - 80.0 [facility] Comment on above: Performed By: #### P TINR #### [address] [address] NUCLEATED RBC 0.0 /100 WBC Normal 0.0 - 0.0 [facility] Comment on above: Performed By: #### P TINR #### [address] [address] Platelets (Bld) [#/Vol] 243 10*3/uL Normal 150 - 450 [facility] Comment on above: Performed By: #### P TINR #### [address] [address] RBC 4.40 x10E12/L Normal 4.00 - 5.20 [facility] Comment on above: Performed By: #### P TINR #### [address] [address] WBC (Bld) [#/Vol] 6.8 10*3/uL Normal 4.4 - 11.3 [facility] Comment on above: Performed By: #### P TINR #### [address] [address] COMPREHENSIVE PANELon 2020 Albumin [Mass/Vol] 4.0 g/dL Normal 3.4 - 5.0 [facility] Comment on above: Performed By: #### P TINR #### [address] [address] ALP [Catalytic activity/Vol] 49 U/L Normal 33 - 110 [facility] Comment on above: Performed By: #### P TINR #### [address] [address] ALT [Catalytic activity/Vol] 5 U/L Low 7 - 45 [facility] Comment on above: Result Comment: Nano ents treated with Sulfasalazine may generate falsely decreased results for ALT. Performed By: #### P TINR #### [address] [address] Anion gap [Moles/Vol] 11 mmol/L Normal 10 - 20 [facility] Comment on above: Performed By: #### P TINR #### [address] [address] AST [Catalytic activity/Vol] 13 U/L Normal 9 - 39 [facility] Comment on above: Performed By: #### P TINR #### [address] [address] Bilirubin [Mass/Vol] 0.5 mg/dL Normal 0.0 - 1.2 [facility] Comment on above: Performed By: #### P TINR #### [address] [address] Calcium [Mass/Vol] 8.8 mg/dL Normal 8.6 - 10.3 [facility] Comment on above: Performed By: #### P TINR #### [address] [address] Chloride [Moles/Vol] 106 mmol/L Normal 98 - 107 [facility] Comment on above: Performed By: #### P TINR #### [address] [address] Creatinine [Mass/Vol] 0.69 mg/dL Normal 0.50 - 1.05 [facility] Comment on above: Performed By: #### P TINR #### [address] [address] GFR- AM. >60 Normal >60 [facility] Comment on above: Result Comment: CALC ULATIONS OF ESTIMATED GFR ARE PERFORMED USING THE MDRD STUDY EQUATION FOR THE IDMS-TRACEABLE CREATININE METHODS. CLIN CHEM 2007;53:766-72 Performed By: #### P TINR #### [address] [address] GFR-NON AM. >60 Normal >60 [facility] Comment on above: Performed By: #### P TINR #### [address] [address] Glucose [Mass/Vol] 101 mg/dL High 74 - 99 [facility] Comment on above: Performed By: #### P TINR #### [address] [address] HCO3 (Bld) [Moles/Vol] 24 mmol/L Normal 21 - 32 [facility] Comment on above: Performed By: #### P TINR #### [address] [address] Potassium [Moles/Vol] 4.0 mmol/L Normal 3.5 - 5.3 [facility] Comment on above: Performed By: #### P TINR #### [address] [address] Protein [Mass/Vol] 7.1 g/dL Normal 6.4 - 8.2 [facility] Comment on above: Performed By: #### P TINR #### [facility] [address] [place] [address] Sodium [Moles/Vol] 137 mmol/L Normal 136 - 145 [facility] Comment on above: Performed By: #### P TINR #### [facility] [address] [place] [address] Urea nitrogen [Mass/Vol] 16 mg/dL Normal 6 - 23 [facility] Comment on above: Performed By: #### P TINR #### [place] [id number] [place] [address] CORONAVIRUS 2019, SCREEN ASY MPTOMATICon 07-07-2021 SARS-CoV-2 (COVID-19) RNA APURVA+probe Ql (Unsp spec) Not detected Normal Not Detected [facility] Comment on above: Result Comment: . This [...] patient management decisions. Fact sheet for providers: https://www.fda.gov/media/648236/download Fact sheet for patients: https://www.fda.gov/media/687098/download This test has received FDA Emergency Use Authorization (EUA) and has been verified by [facility] ([facility]). This test is only authorized for the duration of time that circumstances exist to justify the authorization of the emergency use of in vitro diagnostic tests for the detection of SARS-CoV-2 virus and/or diagnosis of COVID-19 infection under section 564(b)(1) of the Act, 21 U.S.C. 360bbb-3(b)(1), unless the authorization is terminated or revoked sooner. [facility] is certified under CLIA-88 as qualified to perform high complexity testing. Testing is performed in the [facility] laboratories located at [address] [place] [address]. Performed By: #### C OVSC #### [facility] [address] [facility] [place] [id number] Lab Specimen Source Nasal, Nasopharyngeal Normal [facility] Comment on above: Performed By: #### C OVSC #### [facility] [address] [place] [id number] Complete Blood Count + Diffe felytialon 07-07-2021 Basophils/100 WBC (Bld) 0.4 % 0.0 - 2.0 [facility] Work Phone: Erythrocyte distribution width (RBC) [Ratio] 13.9 % See Below [facility] Work Phone: Comment on above: Reference Range: 11. 5 - 14.5 Hematocrit (Bld) [Volume fraction] 39.1 % See Below [facility] Work Phone: Comment on above: Reference Range: 36. 0 - 46.0 Hemoglobin (Bld) [Mass/Vol] 11.7 g/dL below low threshold See Below [facility] Work Phone: Comment on above: Reference Range: 12. 0 - 16.0 Lymphocytes/100 WBC (Bld) 26.6 % See Below [facility] Work Phone: Comment on above: Reference Range: 13. 0 - 44.0 MCHC (RBC) [Mass/Vol] 29.9 g/dL below low threshold See Below [facility] Work Phone: Comment on above: Reference Range: 32. 0 - 36.0 MCV (RBC) [Entitic vol] 89 fL 80 - 100 [facility] Work Phone: Monocytes/100 WBC (Bld) 5.8 % 2.0 - 10.0 [facility] Work Phone: Neutrophils/100 WBC (Bld) 65.4 % See Below [facility] Work Phone: Comment on above: Reference Range: 40. 0 - 80.0 Platelets (Bld) [#/Vol] 243 10*3/uL 150 - 450 [facility] Work Phone: RBC (Bld) [#/Vol] 4.40 {x10E12/L} See Below [facility] Work Phone: Comment on above: Reference Range: 4.0 0 - 5.20 WBC (Bld) [#/Vol] 6.8 10*3/uL 4.4 - 11.3 [facility]erino laryngol [employer] Work Phone: Complete Blood Count + Differential 0.03 {x10E9/L} See Below [facility] Work Phone: Comment on above: Reference Range: 0.0 0 - 0.10 Complete Blood Count + Differential 0.10 {x10E9/L} See Below [facility] Work Phone: Comment on above: Reference Range: 0.0 0 - 0.70 Complete Blood Count + Differential 0.40 {x10E9/L} See Below [facility] Work Phone: Comment on above: Reference Range: 0.1 0 - 1.00 Complete Blood Count + Differential 1.82 {x10E9/L} See Below [facility] Work Phone: Comment on above: Reference Range: 1.2 0 - 4.80 Complete Blood Count + Differential 4.47 {x10E9/L} See Below [facility] Work Phone: Comment on above: Reference Range: 1.2 0 - 7.70 Complete Blood Count + Differential 1.5 % 0.0 - 6.0 [facility] Work Phone: Complete Blood Count + Differential 0.3 % 0.0 - 0.9 [facility] Work Phone: Comment on above: Immature Granulocyte Count (IG) includes promyelocytes, myelocytes and metamyelocytes but does not include bands. Percent differential counts (%) should be interpreted in the context of the absolute cell counts (cells/L). Complete Blood Count + Differential 0.0 {/100_WBC} 0.0 - 0.0 [facility] Work Phone: Coronavirus 2019 RNA by PCR, Screening Asymptomticon 07-07-2021 Coronavirus 2019 RNA by PCR, Screening Asymptomtic Not detected Normal See Below [facility] Work Phone: Comment on above: SOURCE: Nasal, [...] make patient management decisions.Fact sheet for providers: https://www.fda.gov/media/835833/downloadFact sheet for patients: https://www.fda.gov/media/168142/downloadThis test has received FDA Emergency Use Authorization (EUA) and has been verified by [facility] ([facility]). This test is only authorized for the duration of time that circumstances exist to justify the authorization of the emergency use of in vitro diagnostic tests for the detection of SARS-CoV-2 virus and/or diagnosis of COVID-19 infection under section 564(b)(1) of the Act, 21 U.S.C. 360bbb-3(b)(1), unless the authorization is terminated or revoked sooner. [facility] is certified under CLIA-88 as qualified to perform high complexity testing. Testing is performed in the [facility] laboratories located at [address] [place] [address]. Covid 19 Resultson 1 SARS-CoV-2 (COVID-19) RNA [...] You may also be contacted by the [facility] to see if any [...] or Naproxen (Aleve) can also be used. Afab-fno-zwodhjx cough and cold medicines can be used according to the instructions on the package. Some iphh-ejy-hlhnrxm medicines also contain acetaminophen. Make sure you [...] water are not available, use alcohol-based hand house admin. Avoid touching your eyes, nose, and mouth [...] 24 carson (more content not included)... Normal [facility] Established Visit (Otolaryng ology)on 07-07-2021 Established Visit [...] Complaint Goiter, thyroid nodule History of Present Gvvoyup08-gpiz-eqx female referred by Dr. Christian for evaluation [...] Jul 07 2021 12:41PM EST (Author) Normal [facility] - Chemistry and C hemistry - challengeon 07-07-2021 Albumin BCP dye [Mass/Vol] 4.0 g/dL 3.4 - 5.0 [facility] Work Phone: ALP [Catalytic activity/Vol] 49 U/L 33 - 110 [facility] Work Phone: ALT With P-5'-P [Catalytic activity/Vol] 5 U/L below low threshold 7 - 45 [facility] Work Phone: Comment on above: Patients treated wit h Sulfasalazine may generate falsely decreased results for ALT. Anion gap [Moles/Vol] 11 mmol/L 10 - 20 [facility] Work Phone: AST With P-5'-P [Catalytic activity/Vol] 13 U/L 9 - 39 [facility] Work Phone: Bilirubin [Mass/Vol] 0.5 mg/dL 0.0 - 1.2 [facility] Work Phone: Calcium [Mass/Vol] 8.8 mg/dL 8.6 - 10.3 [facility] [facility] Work Phone: Chloride [Moles/Vol] 106 mmol/L 98 - 107 [facility] Work Phone: CO2 [Moles/Vol] 24 mmol/L 21 - 32 [facility] [employer] Work Phone: Creatinine [Mass/Vol] 0.69 mg/dL See Below [facility] Work Phone: Comment on above: Reference Range: 0.5 0 - 1.05 Glucose [Mass/Vol] 101 mg/dL above high threshold 74 - 99 [facility] Work Phone: Potassium [Moles/Vol] 4.0 mmol/L 3.5 - 5.3 [facility] Work Phone: Protein [Mass/Vol] 7.1 g/dL 6.4 - 8.2 [facility] [facility] Work Phone: Sodium [Moles/Vol] 137 mmol/L 136 - 145 [facility] Work Phone: Urea nitrogen [Mass/Vol] 16 mg/dL 6 - 23 [facility] Work Phone: Laboratory - Coagulationon 1 09-06-2020 INR Coag (PPP) [Relative time] Canceled [facility] Work Phone: PT Coag (PPP) [Time] Canceled [facility] Work Phone: No Panel Informationon 07-07 >60 >60 [facility] Work Phone: Comment on above: CALCULATIONS OF ROSALIA MATED GFR ARE PERFORMED USING THE MDRD STUDY EQUATION FOR THE IDMS-TRACEABLE CREATININE METHODS. CLIN CHEM 2007;53:766-72 [email or web address] 1:8080 /musescripts/museweb.dll?R etrieveTestByDateTime?Nano wnbNC=[id number]&Date=09-16&Time=10%3a44%3a00%3a 00&TestType=ECG&Site=12&Ou tputType=PDF&Ext=PDF [facility] Work Phone: Normal sinus rhythm [facility] Work Phone: Abnormal [facility] Work Phone: 438 1 [facility] Work Phone: 413 1 [facility] Work Phone: 198 1 [facility] Work Phone: 147 1 [facility] Work Phone: 218 1 [facility] Work Phone: 14 1 [facility] Work Phone: 18 1 [facility] Work Phone: 9 1 [facility] Work Phone: 59 1 [facility] Work Phone: 464 1 [facility] Work Phone: 390 1 [facility] Work Phone: 76 1 [facility] Work Phone: 142 1 [facility] Work Phone: 85 1 [facility] Work Phone: PT/INRon 07-07-2021 PROTHROMBIN TIME Canceled Normal [facility] Comment on above: Order Comment: TEST PT/INR WAS CANCELLED, 07/07/2021 12:20 SPECIMEN CLOTTED.PLEASE RESUBMITDUPLICATE ORDER. Performed By: #### P TINR #### [address] [place] [address] PT, INR Canceled Normal [facility] Comment on above: Order Comment: TEST PT/INR WAS CANCELLED, 07/07/2021 12:20 SPECIMEN CLOTTED.PLEASE RESUBMITDUPLICATE ORDER. Performed By: #### P TINR #### [address] [place] [address] Established Visit (Otolaryng ology)on 06-12-2021 Established Visit [...] Complaint Goiter, thyroid nodule History of Present Fzhbjxy05-utzj-gny female referred by Dr. Christian for evaluation [...] alcohol use. She is on disability 06/12: visit to review recent ultrasound. The nodules [...] Jun 13 2021 4:51AM EST (Author) Normal [facility] No Panel Informationon 04-28 [facility] Work Phone: [facility] Surgical Pathology Depar tmenton 04-28-2021 [facility] Surgical Pathology Department Name LAURO PINTO Pathologist: MIGUEL GAMBLE MD Date of Procedure: 04/28/2021 Date Received: 04/28/2021 Date Reported 04/29/2021 Submitting Physician: EDY DOMINGUEZ MD Location: [facility] Other External # FINAL DIAGNOSIS A. [facility] [id number] (11/14/2020): LEFT THYROID FINE NEEDLE ASPIRATE: --BENIGN FOLLICULAR NODULAR (NODULAR HYPERPLASIA). Electronically Signed Out By MIGUEL GAMBLE MD/BEBA By the signature on this report, the individual or group listed as making the Final Interpretation/Diagnosis certifies that they have reviewed this case. Clinical History: FNA thyroid nodule Specimens Submitted As: A: [facility] [id number] (11/14/2020) Slide/Block Description Received from [facility], [address] [place] [address], are thirteen (13) slides labeled [id number] Keep Slides: N Slides Returned: N Personal Consult: N Normal [facility] Comment on above: Performed By: #### U [facility] #### [facility] Surgical Pathology Department [address] [facility] [address] Initial Visit (Otolaryngolog y)on 04-07-2021 Initial Visit [...] Complaint Goiter, thyroid nodule History of Present Qlougkp31-cfms-gws female referred by Dr. Christian for evaluation [...] MOUTH ONCE DAILY Vitals Vital Signs Recorded: 07Apr2021 02:27PM Twomcloopkf99.2 F Xnbfzilb698 Igdgoowfa08 Height6 ft 1 in Nwaiin878 lb BMI Vbvgaljszk75.33 kg/m2 BSA Calculated2.68 Tobacco Useb) No Fall [...] May 04 2021 2:13PM EST (Author) Normal [facility] Tobacco Screening.on Fall risk assessment a) No falls within the last year [facility] Work Phone: Tobacco use status CPHS b) No [facility] Work Phone: CTA CHEST WO W CONon [...] AMBREEN ZENDEJAS Date: 2020-08-28 22:10 Normal [facility] CBC AUTO DIFFon 08-28-2020 Basophils (Bld) [#/Vol] 0.0 103/ul Normal 0.0-0.1 [facility] Comment on above: Performed By: #### C BC #### [facility] [address] [place] [address] Aminata Lotus Basophils/100 WBC (Bld) 0.3 % Normal 0.2-2.0 [facility] Comment on above: Performed By: #### C BC #### [facility] [address] [place] [address] [phone] Aminata Lotus Eosinophils (Bld) [#/Vol] 0.0 103/ul Normal 0.0-0.7 [facility] Comment on above: Performed By: #### C BC #### [facility] [address] [place] [address] 11477 Aminata Lotus Eosinophils/100 WBC (Bld) 0.2 % Critically low 0.9-7.0 [facility] Comment on above: Performed By: #### C BC #### [facility] [address] [place] [address] 78095 Aminata Lotus Erythrocyte distribution width (RBC) [Ratio] 13.6 % Normal 11.0-15.0 [facility] Comment on above: Performed By: #### C BC #### [facility] [address] [place] [address] 11903 Aminata Lotus Hematocrit (Bld) [Volume fraction] 39.9 % Normal 36.0-48.0 [facility] Comment on above: Performed By: #### C BC #### [facility] [address] [place] [address] 77841 Aminata Lotus Hemoglobin (Bld) [Mass/Vol] 12.5 g/dL Normal 12.0-16.0 [facility] Comment on above: Performed By: #### C BC #### [facility] [address] [id number] Aminata Lotus IG # 0.02 10e3/ul Normal 0.00-0.03 [facility] Comment on above: Performed By: #### C BC #### [facility] [address] [phone] Aminata Lotus IG % 0.2 % Normal 0.0-0.5 [facility] Comment on above: Performed By: #### C BC #### [facility] [address] [place], [place] [id number] Aminata Lotus Lymphocytes (Bld) [#/Vol] 2.3 103/ul Normal 1.2-3.8 [facility] Comment on above: Performed By: #### C BC #### [facility] [address] [place] [address] Aminata Lotus Lymphocytes/100 WBC (Bld) 20.1 % Critically low 20.5-60.0 [facility] Comment on above: Performed By: #### C BC #### [facility] [address] [place], [place] [phone] Aminata Lotus MANUAL DIFF REQ NO Normal [facility] Comment on above: Performed By: #### C BC #### [facility] [address] [place], [place] [phone] Aminata Lotus MCH (RBC) [Entitic mass] 27.0 pg Normal 26.7-34.0 [facility] Comment on above: Performed By: #### C BC #### [facility] [address] [place] [address] Aminata Lotus MCHC (RBC) [Mass/Vol] 31.3 g/dL Normal 29.9-35.2 [facility] Comment on above: Performed By: #### C BC #### [facility] [address] [place], [place] [phone] Aminata Lotus MCV (RBC) [Entitic vol] 86.2 fL Normal 81.0-99.0 [facility] Comment on above: Performed By: #### C BC #### [facility] [address], [place] [address] Aminata Lotus Monocytes (Bld) [#/Vol] 0.5 103/ul Normal 0.3-0.8 [facility] Comment on above: Performed By: #### C BC #### [facility] [address] [place] [address] 61889 Aminata Lotus Monocytes/100 WBC (Bld) 4.5 % Normal 1.7-12.0 [facility] Comment on above: Performed By: #### C BC #### [facility] [address] [place] [address] 51201 Aminata Lotus Neutrophils (Bld) [#/Vol] 8.4 103/ul Critically high 1.4-6.5 [facility] Comment on above: Performed By: #### C BC #### [facility] [address] [place], [place] [phone] Aminata Lotus Neutrophils/100 WBC (Bld) 74.7 % Normal 43.0-75.0 [facility] Comment on above: Performed By: #### C BC #### [facility] [address] [place] [address] 22642 Aminata Lotus Platelet mean volume (Bld) [Entitic vol] 10.6 fL Normal 9.5-13.5 [facility] Comment on above: Performed By: #### C BC #### [facility] [address] [place] [address] 06839 Aminata Lotus Platelets (Bld) [#/Vol] 293 103/ul Normal 150-450 [facility] Comment on above: Performed By: #### C BC #### [facility] [address] [place] [address] 02239 Aminata Lotus RBC (Bld) [#/Vol] 4.63 106/ul Normal 4.20-5.40 [facility] [place] Comment on above: Performed By: #### C BC #### [facility] [address] [place] [address] 54991 Aminata Lotus WBC (Bld) [#/Vol] 11.2 103/ul Critically high 4.0-11.0 [facility] Comment on above: Performed By: #### C BC #### [facility] [address] [place] [address] Aminata Lotus CULTURE URINEon 08-28-2020 CULTURE URINE Culture Observations : NORMAL GENITAL FRANK. NO POTENTIAL PATHOGENS SEEN Normal [facility] Comment on above: Performed By: #### U RCX #### [facility] [address] [place] [address] Aminata Lotus ER URINE PROFILEon 0 Bilirubin [Mass/Vol] Negative Normal NEGATIVE [facility] Comment on above: Performed By: #### U MICRO, ERUR #### [facility] [address] [place] [address] Aminata Lotus BLOOD TRACE-INTACT Abnormal NEGATIVE [facility] Comment on above: Performed By: #### U MICRO, ERUR #### [facility] [address] [place] [address] Aminata Lotus Clarity (U) CLEAR Normal CLEAR [facility] Comment on above: Performed By: #### U MICRO, ERUR #### [facility] [address] [place] [address] Aminata Lotus Color (U) LT. YELLOW Normal YELLOW [facility] Comment on above: Performed By: #### U MICRO, ERUR #### [facility] [address] [place] [address] Aminata Lotus ERUAHD A micrscopic examina tion will be performed if indicated. Normal [facility] Comment on above: Performed By: #### U MICRO, ERUR #### [facility] [address] [place] [address] Aminata Lotus Glucose [Mass/Vol] Negative Normal NEGATIVE [facility] [place] Comment on above: Performed By: #### U MICRO, ERUR #### [facility] [address] [place] [address] Aminata Lotus Ketones Ql (U) Negative Normal NEGATIVE [facility] Comment on above: Performed By: #### U MICRO, ERUR #### [facility] [address] [place] [address] Aminata Lotus Nitrite Ql (U) Negative Normal NEGATIVE [facility] Comment on above: Performed By: #### U MICRO, ERUR #### [facility] [address] [place], [place] [phone] Aminata Gautam pH (Bld) 7.5 Normal 5-9 [facility] Comment on above: Performed By: #### U MICRO, ERUR #### [facility] [address] [place], [place] [phone] Aminata Gautam Protein (U) [Mass/Vol] Negative Normal NEGATIVE/ TRACE [facility] Comment on above: Performed By: #### U MICRO, ERUR #### [facility] [address] [place] [address] Aminata Gautam SPEC GRAVITY 1.015 Normal 1.005-<=1.0 25 [facility] Comment on above: Performed By: #### U MICRO, ERUR #### [facility] [address] [place] [address] Aminata Gautam UR MICRO IND INDICATED Normal [facility] Comment on above: Performed By: #### U MICRO, ERUR #### [facility] [address] [place], [place] [phone] Aminata Gautam Urobilinogen Qn (U) 0.2 EU/dl Normal 0.2 - 1.0 [facility] Comment on above: Performed By: #### U MICRO, ERUR #### [facility] [address] [place], [place] [phone] Aminata Gautam WBC (Bld) [#/Vol] SMALL Abnormal NEGATIVE [facility] Comment on above: Performed By: #### U MICRO, ERUR #### [facility] [address] [place], [place] [phone] Aminata Lotus PREG HCG QUALon 08-28-2020 , QUAL Negative Normal NEGATIVE [facility] Comment on above: Performed By: #### C BC #### [facility] [address] [place], [place] [phone] Aminata Gautam PROF 14(COMP METB)on 020 Albumin [Mass/Vol] 3.7 g/dL Normal 3.5-5.0 [facility] Comment on above: Performed By: #### H STROPN, TSH, CMP #### [facility] [address] [place], [place] [address] Aminata Lotus Albumin/Globulin [Mass ratio] 1.0 {ratio} Normal [facility] Comment on above: Performed By: #### H STROPN, TSH, CMP #### [facility] [address] [place], [place] [address] Aminata Lotus ALP [Catalytic activity/Vol] 88 U/L Normal 38-126 [facility] Comment on above: Performed By: #### H STROPN, TSH, CMP #### [facility] [address] [phone] Aminata Lotus ALT [Catalytic activity/Vol] 13 U/L Normal 9-52 [facility] Comment on above: Performed By: #### H STROPN, TSH, CMP #### [facility] [address] [phone] Aminata Lotus Anion gap [Moles/Vol] 14.5 mmol/L Normal [facility] Comment on above: Performed By: #### H STROPN, TSH, CMP #### [facility] [address] [phone] Aminata Lotus AST [Catalytic activity/Vol] 16 U/L Normal 14-36 [facility] Comment on above: Performed By: #### H STROPN, TSH, CMP #### [facility] [address] [place], [place] [address] Aminata Lotus Bilirubin Ql (U) 0.7 mg/dL Normal 0.2-1.3 [facility] Comment on above: Performed By: #### H STROPN, TSH, CMP #### [facility] [address] [place], [place] [address] Aminata Lotus Calcium [Mass/Vol] 8.8 mg/dL Normal 8.4-10.2 [facility] [place] Comment on above: Performed By: #### H STROPN, TSH, CMP #### [facility] [address] [place], [place] [address] Aminata Lotus Chloride [Moles/Vol] 106 mmol/L Normal 98-107 [facility] Comment on above: Performed By: #### H STROPN, TSH, CMP #### [facility] [address] [phone] Aminata Lotus CO2 [Moles/Vol] 24.3 mmol/L Normal 22.0-30.0 [facility] Comment on above: Performed By: #### H STROPN, TSH, CMP #### [facility] [address] [address] Aminata Lotus Creatinine [Mass/Vol] 0.96 mg/dL Normal 0.52-1.04 [facility] Comment on above: Performed By: #### H STROPN, TSH, CMP #### [facility] [address] [address] Aminata Lotus EGFR-AF CYMRAES >60 Normal >=60 [facility] Comment on above: Performed By: #### H STROPN, TSH, CMP #### [facility] [address] [address] Aminata Lotus EGFR-NON AF CYMRAES >60 Normal >=60 [facility] Comment on above: Performed By: #### H STROPN, TSH, CMP #### [facility] [address] [address] Aminata Lotus Globulin (S) [Mass/Vol] 3.8 g/dL Normal [facility] Comment on above: Performed By: #### H STROPN, TSH, CMP #### [facility] [address] [address] Aminata Lotus Glucose [Mass/Vol] 141 mg/dL Critically high 74-106 T [facility] Comment on above: Performed By: #### H STROPN, TSH, CMP #### [facility] [address] [address] Aminata Lotus Potassium [Moles/Vol] 3.8 mmol/L Normal 3.4-5.0 [facility] Comment on above: Performed By: #### H STROPN, TSH, CMP #### [facility] [address] [address] Aminata Lotus Protein [Mass/Vol] 7.5 g/dL Normal 6.1-8.2 [facility] Comment on above: Performed By: #### H STROPN, TSH, CMP #### [facility] [address] [place] [address] Aminata Lotus Sodium [Moles/Vol] 141 mmol/L Normal 137-145 [facility] [place] Comment on above: Performed By: #### H STROPN, TSH, CMP #### [facility] [address] [place] [address] Aminata Lotus Urea nitrogen [Mass/Vol] 10.0 mg/dL Normal 7.0-17.0 [facility] Comment on above: Performed By: #### H STROCHOCO, TSH, CMP #### [facility] [address] [place] [address] Aminata Lotus Urea nitrogen/Creatinin e [Mass ratio] 10.4 mg/mg Normal [facility] Comment on above: Performed By: #### H DIEGO, TSH, CMP #### [facility] [address] [place] [address] Aminata Lotus PROTIMEon 08-28-2020 INR Coag (PPP) [Relative time] 1.00 {INR} Normal [facility] Comment on above: Performed By: #### P T, PTT #### [facility] [address] [place] [address] Aminata Lotus PT Coag (PPP) [Time] SEE BELOW Normal [facility] Comment on above: Result Comment: TANYA RED INR: 2.0 - 3.0 CONDITIONS NOT LISTED BELOW 2.5 - 3.5 FOR PROSTHETIC HEART VALVE REPLACEMENT 2.5 - 3.5 RECURRENT THROMBOSIS Performed By: #### P T, PTT #### [facility] [address] [place] [address] Aminata Lotus PT Coag (PPP) [Time] 10.9 s Normal 9.0-11.6 [facility] Comment on above: Performed By: #### P T, PTT #### [facility] [address] [place] [address] Aminata Lotus PTTon 08-28-2020 aPTT Coag (Bld) [Time] 23.9 s Normal 22.3-36.2 [facility] Comment on above: Performed By: #### P T, PTT #### [facility] [address] [place] [address] Aminata Gautam TROPONIN, HIGH SENSITIVITYon 08-28-2020 HSTROP <4.0 Normal 4.0-35.5 [facility] Comment on above: Result Comment: CUT- OFF POINTS HAVE BEEN ESTABLISHED BASED ON THE FOURTH UNIVERSAL DEFINITIONS OF MYOCARDIAL INFARCTION. THE UPPER REFERENCE LIMIT (URL) OF TROPONIN, DEFINED THE 99TH PERCENTILE OF cTnI DISTRIBUTION IN A REFERENCE POPULATION, HAS BEEN CONFIRMED THE DECISION THRESHOLD FOR NE DIAGNOSIS. 90TH PERCENTILE (A=0546)= 35.6 - 109.2 PG/ML 99TH PERCENTILE = 51.4 PG/ML NOTE: HIGH-SENSITIVITY TROPONIN ASSAY IS NOT INTENDED TO BE USED IN ISOLATION BUT SHOULD BE INTERPRETED IN CONJUNCTION WITH OTHER DIAGNOSTIC AND CLINICAL INFORMATION. Performed By: #### H STROPN, TSH, CMP #### [facility] [address] [place] [address] Aminata Gautam TSHon 08-28-2020 TSH Qn 2.034 uIU/mL Normal 0.470-4.680 [facility] Comment on above: Performed By: #### H STROPN, TSH, CMP #### [facility] [address] [place] [address] Aminata Gautam TSH Qn SEE BELOW Normal [facility] Comment on above: Result Comment: <0.3 4 UIU/ml HYPERTHYROID 0.34-5.60 UIU/ml EUTHYROID >5.60 UIU/ml HYPOTHYROID Performed By: #### H STROPN, TSH, CMP #### [facility] [address] [place] [address] Aminata Gautam URINE MICROSCOPIC ONLYon Bacteria LM.HPF (Urine sed) [#/Area] NONE SEEN Normal NONE SEEN [facility] Comment on above: Performed By: #### U MICRO, ERUR #### [facility] [address] [place] [address] Aminata Gautam CAST SEEN Abnormal NONE SEEN [facility] Comment on above: Performed By: #### U MICRO, ERUR #### [facility] [address] [address] Aminata Lotus Crystals LM Nom (Urine sed) NONE SEEN Normal NONE SEEN [facility] Comment on above: Performed By: #### U MICRO, ERUR #### [facility] [address] [address] Aminata Lotus CULTURE INDICATED Normal [facility] Comment on above: Performed By: #### U MICRO, ERUR #### [facility] [address] [address] Aminata Lotus Epithelial cells LM.HPF (Urine sed) [#/Area] FEW Abnormal NONE SEEN /RARE [facility] Comment on above: Performed By: #### U MICRO, ERUR #### [facility] [address] [place] [address] Aminata Lotus HYALINE CAST RARE Normal [facility] Comment on above: Performed By: #### U MICRO, ERUR #### [facility] [address] [place] [address] Aminata Lotus MUCOUS NONE SEEN Normal NONE SEEN [facility] Comment on above: Performed By: #### U MICRO, ERUR #### [facility] [address] [place] [address] Aminata Lotus RBC (U) [#/Vol] 2-5 Abnormal 0-2 [facility] Comment on above: Performed By: #### U MICRO, ERUR #### [facility] [address] [place] [address] Aminata Lotus WBC (Bld) [#/Vol] 5-10 Abnormal NONE SEEN [facility] Comment on above: Performed By: #### U MICRO, ERUR #### [facility] [address] [address] Aminata Lotus OPERATIVE REPORTon 7 OPERATIVE REPORT Name: LIAN PINTO GILLES: [id number]: MORIS MITTAL D.P.M.DATE OF SURGERY: 02/24/2017ANESTHESIA: General.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 It was noted that all hardware was removed in total with no remnantsleft. The external fixator was completely removed. The leg was then dressed [facility] LAURO [id number] [address] [place] [id number]: Moris Mittal, DOPERATIVE REPORTwith sterile gauze, Rojas, Kerlix, and an William bandage. The patient toleratedthe procedure and anesthesia well in apparent satisfactory condition, wastransferred to the PACU. All vital signs were stable and vascular statusintact to her digits.COMPLICATIONS: None.PATHOLOGICAL SPECIMENS: External fixator, right leg. MORIS MITTAL D.P.M.CC/MedQ/[id number]: 03/16/2017 10:56:16 E/S: Moris Mittal, DPM07 1448Signature on File ___[facility] TRUNG [id number] [address] [place] [address] [id number]CTATING DR: Moris Mittal, DOPERATIVE REPORT Normal [facility] Vital Signs Date Time Vital Sign Value Performing Clinician Facility 11-01-2024 13:03-0500 Body mass index (BMI) [Ratio] 39.46 kg/m2 Jorge Lauren DO Work Phone: [facility] 11-01-2024 13:03-0500 Body weight 135.68 kg Jorge Lauren DO Work Phone: [facility] 11-01-2024 13:03-0500 Diastolic blood pressure 74 mm[Hg] Jorge Lauren DO Work Phone: [facility] 11-01-2024 13:03-0500 Systolic blood pressure 120 mm[Hg] Jorge Lauren DO Work Phone: [facility] 10-26-2024 13:57-0500 Body height 182.9 cm Kyler FRANCO Work Phone: [facility] 10-26-2024 13:57-0500 Body mass index (BMI) [Ratio] 40.96 kg/m2 Kyler FRANCO Work Phone: [facility] 10-26-2024 13:57-0500 Body weight 136.99 kg Kyler Carvajal PA Work Phone: [facility] [employer] [facility] 10-26-2024 13:57-0500 Diastolic blood pressure 62 mm[Hg] Kyler Carvajal PA Work Phone: [facility] 10-26-2024 13:57-0500 Heart rate 71 /min Kyler Carvajal PA Work Phone: [facility] 10-26-2024 13:57-0500 Respiratory rate 18 /min Kyler Carvajal PA Work Phone: [facility] 10-26-2024 13:57-0500 SaO2% (BldA) [Mass fraction] 100 % Kyler Carvajal PA Work Phone: [facility] 10-26-2024 13:57-0500 Systolic blood pressure 123 mm[Hg] Kyler Carvajal PA Work Phone: [facility] 09-19-2024 13:21-0500 Body height 185.4 cm Jorge Lauren DO Work Phone: [facility] [employer] 09-19-2024 13:21-0500 Body mass index (BMI) [Ratio] 38.37 kg/m2 Jorge Lauren DO Work Phone: [facility] 09-19-2024 13:21-0500 Body weight 131.91 kg Jorge Lauren DO Work Phone: [facility] [employer] 09-19-2024 13:21-0500 Diastolic blood pressure 70 mm[Hg] Jorge Lauren DO Work Phone: [facility] [employer] 09-19-2024 13:21-0500 Systolic blood pressure 120 mm[Hg] Jorge Lauren DO Work Phone: [facility] 09-07-2024 14:37-0500 Body height 185.4 cm Kyler Carvajal PA Work Phone: [facility] 09-07-2024 14:37-0500 Body mass index (BMI) [Ratio] 38.39 kg/m2 Kyler Nienberg PA [facility] 09-07-2024 14:37-0500 Body weight 132 kg Kyler Nienberg PA Work Phone: [facility] [employer] 09-07-2024 14:37-0500 Diastolic blood pressure 83 mm[Hg] Kyler Nienberg PA Work Phone: [facility] [employer] [facility] 09-07-2024 14:37-0500 Heart rate 80 /min Kyler Nienberg PA [facility] 09-07-2024 14:37-0500 Respiratory rate 16 /min Kyler Nienberg PA Work Phone: [facility] [employer] 09-07-2024 14:37-0500 SaO2% (BldA) [Mass fraction] 100 % Kyler Nienberg PA Work Phone: [facility] [employer] 09-07-2024 14:37-0500 Systolic blood pressure 126 mm[Hg] Kyler Nienberg PA [facility] 05-18-2024 11:25-0400 Body height 185.4 cm Kyler Nienberg PA Work Phone: [facility] [employer] [facility] 05-18-2024 11:25-0400 Body mass index (BMI) [Ratio] 38.26 kg/m2 Kyler Nienberg PA Work Phone: [facility] [employer] [facility] 05-18-2024 11:25-0400 Body weight 131.54 kg Kyler Nienberg PA [facility] 05-18-2024 11:25-0400 Diastolic blood pressure 85 mm[Hg] Kyler Nienberg PA Work Phone: [facility] [employer] 05-18-2024 11:25-0400 Heart rate 71 /min Kyler Nienberg PA Work Phone: [facility] [employer] 05-18-2024 11:25-0400 Respiratory rate 20 /min Kyler Nienberg PA Work Phone: [email or web address] 05-18-2024 11:25-0400 Systolic blood pressure 118 mm[Hg] Kyler FRANCO Work Phone: [email or web address] 12-19-2021 16:25-0400 Body height 185.42 cm Toney icomply Work Phone: WP-Aktxzfwozxylna-Um [place] Work Phone: 12-19-2021 16:25-0400 Body mass index (BMI) [Ratio] 45.33 kg/m2 Toney P ADOP Work Phone: CA-Qrwisvzmgbauqe-Lf [place] Work Phone: 12-19-2021 16:25-0400 Body surface area Derived from formula 2.71 m2 Toney [employer] Work Phone: DS-Ufwjfyxqthykjm-Sm [place] Work Phone: 12-19-2021 16:25-0400 Body temperature 96.8 [degF] Toney [employer]ply Work Phone: CL-Vukaqjbipmxrmx-In [place] Work Phone: 12-19-2021 16:25-0400 Body weight 155.86 kg Toney P ADOP Work Phone: IH-Vpnqkqlgnzsocl-Fn [place] Work Phone: 10-27-2021 09:32-0500 Body height 185.42 cm No PCP None MP-Otolaryngolog y-We [place] [facility] Work Phone: 10-27-2021 09:32-0500 Body mass index (BMI) [Ratio] 45.25 kg/m2 No PCP None KD-Rhoyefkscxvnvj-Fx [place] [facility] [address] Work Phone: 10-27-2021 09:32-0500 Body surface area Derived from formula 2.71 m2 No PCP None UN-Rhlluwhpgsmzxu-Gk [place] [facility] [address] Work Phone: 10-27-2021 09:32-0500 Body temperature 97.9 [degF] No PCP None MP-Otolaryngolo gy-We [place] [facility] [address] Work Phone: 10-27-2021 09:32-0500 Body weight 155.58 kg No PCP None MP-Otolaryngolog y-We [place] [facility] [address] Work Phone: 10-27-2021 09:32-0500 Diastolic blood pressure 83 mm[Hg] No PCP None YU-Eoyazhdedtgcgm-Fj [place] [facility] [address] Work Phone: 10-27-2021 09:32-0500 Systolic blood pressure 133 mm[Hg] No PCP None KZ-Tbmykxiqeugash-Lv [place] [facility] [address] Work Phone: 10-27-2021 09:32-0500 0 1 No PCP None MP-Otolaryngolog y-We [place] [facility] [address] Work Phone: Comment on above: [employer] 08-16-2021 12:45-0500 Body height 185.42 cm Melody Brandon Other [employer] Other 08-16-2021 12:45-0500 Body mass index (BMI) [Ratio] 41.55 kg/m2 Melody Brandon Other [employer] Other 08-16-2021 12:45-0500 Body temperature 97.6 [degF] Melody Brandon Other [employer] Other 08-16-2021 12:45-0500 Body weight 142.88 kg Melody Brandon Other [employer] Other 08-16-2021 12:45-0500 Respiratory rate 18 /min Melody Brandon Other [employer] Other 08-16-2021 12:45-0500 SaO2% (BldA) [Mass fraction] 98 % Melody Brandon Other [facility] Other 07-21-2021 14:48-0500 Body height 185.42 cm No PCP None MG-Otolaryngolog y-We [place] Work Phone: 07-21-2021 14:48-0500 Body mass index (BMI) [Ratio] 44.59 kg/m2 No PCP None ZR-Ggpajbbvahadet-Ol [place] Work Phone: 07-21-2021 14:48-0500 Body surface area Derived from formula 2.69 m2 No PCP None KN-Iavncsdwsdixtd-Da [place] Work Phone: 07-21-2021 14:48-0500 Body temperature 97.9 [degF] No PCP None MG-Otolaryngolo gy-We [place] Work Phone: 07-21-2021 14:48-0500 Body weight 153.32 kg No PCP None MG-Otolaryngolog y-We [place] Work Phone: 07-21-2021 14:48-0500 Diastolic blood pressure 81 mm[Hg] No PCP None HZ-Ujiamtqqmkowim-Xy [place] Work Phone: 07-21-2021 14:48-0500 Systolic blood pressure 120 mm[Hg] No PCP None KW-Kzxpcswvynvekx-Fh [place] Work Phone: 07-21-2021 14:48-0500 2 1 No PCP None MG-Otolaryngolog y-We [place] Work Phone: Comment on above: [facility] 04-07-2021 14:27-0400 Body height 185.42 cm No PCP None MG-Otolaryngolog y-We [place] Work Phone: 04-07-2021 14:27-0400 Body mass index (BMI) [Ratio] 44.33 kg/m2 No PCP None NY-Wfrbosekdxshsu-Dr [place] Work Phone: 04-07-2021 14:27-0400 Body surface area Derived from formula 2.68 m2 No PCP None JP-Umotphupcaovnw-Aa [place] Work Phone: 04-07-2021 14:27-0400 Body temperature 98.2 [degF] No PCP None MG-Otolaryngolo gy-We [place] Work Phone: 04-07-2021 14:27-0400 Body weight 152.41 kg No PCP None MG-Otolaryngolog y-We [place] Work Phone: 04-07-2021 14:27-0400 Diastolic blood pressure 85 mm[Hg] No PCP None CF-Yhbmbzcyrgoagc-Ct [place] Work Phone: 04-07-2021 14:27-0400 Systolic blood pressure 133 mm[Hg] No PCP None VU-Lgfcgxngtvqigl-Xu [place] Work Phone: 04-07-2021 14:27-0400 0 1 [...] 11-01-2024 ambulatory Sofiya Cole MD Work Phone: [facility] Work Phone: Start: 11-01-2024 End: 11-01-2024 Departed Referred Sofiya Cole MD Work Phone: [facility] Start: 10-26-2024 End: 10-26-2024 Office outpatient visit 25 minutes Kyler FRANCO Work Phone: [facility] Comment on above: Disorder of sacrum ( Primary Dx) Start: 10-26-2024 End: 10-26-2024 ambulatory KYLER CARVAJAL [facility] Start: 09-19-2024 End: 09-19-2024 Bamboo flowsheet Jorge [...] hypot hyroidism; Malignant neoplasm of thyroid gland ([facility]-HCC) Start: 09-11-2024 End: 09-11-2024 ambulatory THI STEPHENS Not Available Start: 09-11-2024 End: 09-11-2024 Office outpatient visit 25 minutes Thi Stephens MD Work Phone: [facility] Comment on above: Postoperative hypoth yroidism (CMS/HCC) (Primary Dx); Papillary thyroid carcinoma (CMS/HCC); Vitamin D deficiency; Encounter for dietary consultation; Class 3 severe obesity due to excess calories without serious comorbidity with body mass index (BMI) of 40.0 to 44.9 in adult (CMS/HCC) Start: 09-07-2024 End: 09-07-2024 Office outpatient visit 15 minutes Kyler FRANCO Work Phone: [facility] Comment on above: 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) Start: 09-07-2024 End: 09-07-2024 ambulatory KYLER CARVAJAL [facility] Start: 08-14-2024 End: 08-14-2024 ambulatory TONEY Melara [facility] Start: 08-11-2024 End: 08-11-2024 ambulatory ZEESHAN Renteria PERRY [facility] Start: 08-09-2024 End: 08-18-2024 Telephone encounter Lata Mary RN [facility] Start: 08-07-2024 End: 08-07-2024 ambulatory DO TONEY MONTOYA Facility:[facility] Start: 08-01-2024 End: 08-01-2024 ambulatory TONEY MONTOYA [facility] Start: 07-25-2024 End: 07-25-2024 Departed Referred Sofiya Cole MD Work Phone: [facility] Start: 07-25-2024 End: 07-25-2024 ambulatory Sofiya Cole MD Work Phone: [facility] Work Phone: Start: 07-25-2024 End: 07-25-2024 ambulatory TONEY MONTOYA Facility:[facility] Start: 07-25-2024 End: 07-25-2024 ambulatory Korey Ford Facility[facility] Start: 06-28-2024 End: 06-28-2024 ambulatory TONEY MONTOYA Facility:[facility] Start: 06-22-2024 End: 06-22-2024 ambulatory TONEY MONTOYA [facility] Start: 06-19-2024 End: 06-19-2024 ambulatory TONEY MONTOYA [facility] Start: 06-17-2024 End: 06-17-2024 ambulatory [facility] Start: 06-16-2024 End: 06-16-2024 ambulatory [facility] Start: 06-05-2024 End: 06-05-2024 ambulatory TONEY MONTOYA Facility:[facility] Start: 05-29-2024 End: 08-18-2024 Telephone encounter Kyler FRANCO Work Phone: [facility] Start: 05-18-2024 End: 05-18-2024 Office outpatient visit 25 minutes Kyler FRANCO Work Phone: [facility] Comment on above: Disorder of sacrum ( Primary Dx) Start: 05-18-2024 End: 05-18-2024 ambulatory KYLER CARVAJAL [facility] Start: 04-26-2024 End: 04-26-2024 ambulatory TONEY MONTOYA Facility:[facility] Start: 03-06-2024 End: 03-06-2024 ambulatory TONEY MONTOYA [facility] Start: 12-19-2021 Postop follow up vis it related to original px Toney Montoya Work Phone: UB-Mzousrxfcliocg-Nrmw lake Work Phone: Start: 12-05-2021 AUDIT Toney P Hous e Work Phone: WO-Ekiukqnnhndixa-Elcf lake Work Phone: Start: 11-28-2021 AUDIT Toney P Hous e Work Phone: BI-Abywwtteldrmez-Giux lake Work Phone: Start: 10-27-2021 Office outpatient vi sit 15 minutes No PCP None RM-Srtnzsramuxjtl-Tncn lake [facility] [address] Work Phone: Start: 08-16-2021 End: 08-16-2021 ambulatory Melody Roma Other [facility] Other Start: 08-16-2021 Office outpatient vi sit 15 minutes Melody Brandon [facility] Start: 07-21-2021 Postop follow up vis it related to original px No PCP None QO-Zutfrmccholiju-Tjrz lake Work Phone: Start: 07-10-2021 [facility], Provider: Edy Dominguez, Status: Pen, Time: 11:00 AM No PCP None ZL-Wsqnepkltlgdws-Hjlu lake Work Phone: Start: 07-08-2021 Chart Update No PCP None -Otolary [facility] Work Phone: Start: 07-07-2021 Office outpatient vi sit 25 minutes No PCP None LC-Ugiozgkrsgkgpi-Hvef lake Work Phone: Start: 06-12-2021 Phys/qhp telephone evaluation 5-10 min No PCP None QO-Rpkgweoswisekd-Vczk lake Work Phone: Start: 04-29-2021 Chart Update No PCP None -Otolary [facility] Work Phone: Start: 04-07-2021 Office outpatient ne w 45 minutes No PCP None HR-Ywltpylxkdrswm-Ktyk lake Work Phone: Start: 08-28-2020 End: 08-29-2020 Patient encounter procedure AMY MARKER Facility:[facility]1 Procedures Date Procedure Procedure Detail Performing Clinician Start: 11-03-2024 ECG 12-LEAD Jorge Fazi o DO Work Phone: Start: 11-01-2024 Urine test visual color cmprsn meths Jorge Lauren DO Work Phone: Plan of Treatment Date Care Activity Detail Author Start: 10-26-2025 Adult BMI Screening Adult BMI Screen ing [facility] Start: 10-26-2025 Tobacco Screening Tobacco Screening [facility] Start: 09-07-2025 Adult BMI Screening Adult BMI Screen ing [facility] Start: 09-07-2025 Tobacco Screening Tobacco Screening [facility] Start: 08-11-2025 Tobacco Screening Tobacco Screening [facility] Start: 05-18-2025 Adult BMI Screening Adult BMI Screen ing [facility] Start: 05-18-2025 Tobacco Screening Tobacco Screening [facility] Start: 12-07-2024 End: 12-07-2024 Patient encounter procedure 12/07/2024 1:30 PM EDT Office Visit [facility] [address] [place] [phone] Kyler Carvajal PA [address] [place], [place] [phone] [facility] Start: 11-17-2024 End: 11-17-2024 Admission to same day surgery center 11/17/2024 10:26 AM EDT - 11/17/2024 10:33 AM EDT Surgery [facility] [address] [place] [phone] Zeeshan Perry MD [address] [place], [place] [id number] INJECTION BLOCK SACROILIAC JOINT [13847 (CPT )] [facility] Comment on above: INJECTION BLOCK SACR OILIAC JOINT [76059 (CPT )] Start: 11-17-2024 End: 11-17-2024 Inject si joint arthrgrphy&/anes/steroid w/trav INJECTION BLOCK SACROILIAC JOINT Disorder of sacrum 11/17/2024 10:26 AM EDT [facility] Start: 11-17-2024 Subsequent hospital visit by physician 11/17/2024 10:26 AM EDT Hospital Encounter [facility] [address] [place] [phone] Zeeshan Perry MD [address] [place] [address] [facility] Start: 11-09-2024 End: 11-09-2024 Patient encounter procedure 11/09/2024 2:45 PM EST Office Visit [facility] [address] [place] [phone] Kyler Carvajal PA [address] [place] [address] [facility] Start: 10-17-2024 End: 10-17-2024 Patient encounter procedure 10/17/2024 2:30 PM EST Procedure Visit [facility] [address] [place] [phone] Jorge Aguilar DO [address] [place] [address] [facility] Start: 09-19-2024 End: 09-19-2025 [...] thyroid gland (CMS-HCC) Expected: 09/11/2024, Expires: 09/11/2025 [facility] Work Phone: Comment on above: Expected: 09/11/2024 , Expires: 09/11/2025 Start: 09-11-2024 End: 09-11-2025 Thyroglobulin Antibody Thyroglobulin Antibody Lab Routine Postoperative hypothyroidism (CMS/HCC) Papillary thyroid carcinoma (CMS/HCC) Expected: 09/11/2024 (Approximate), Expires: 09/11/2025 [facility] Comment on above: Expected: 09/11/2024 (Approximate), Expires: 09/11/2025 Start: 09-11-2024 End: 09-11-2025 Thyroid profile includes TSH FT4 Thyroid profile includes TSH FT4 Lab Routine Postprocedural hypothyroidism Malignant neoplasm of thyroid gland (CMS-HCC) Expected: 09/11/2024, Expires: 09/11/2025 [facility] Work Phone: Comment on above: Expected: 09/11/2024 , Expires: 09/11/2025 Start: 09-11-2024 End: 09-11-2025 Thyrotropin [Units/volume] in Serum or Plasma TSH Lab Routine Postoperative hypothyroidism (CMS/HCC) Papillary thyroid carcinoma (CMS/HCC) Expected: 09/11/2024 (Approximate), Expires: 09/11/2025 [facility] Comment on above: Expected: 09/11/2024 (Approximate), Expires: 09/11/2025 Start: 09-11-2024 End: 09-11-2025 Thyroxine (T4) free [Mass/volume] in Serum or Plasma [facility] Comment on above: Expected: 09/11/2024 (Approximate), Expires: 09/11/2025 Expected: 09/11/2024 , Expires: 09/11/2025 Start: 09-11-2024 End: 09-11-2025 Triiodothyronine (T3) Free [Mass/volume] in Serum or Plasma [facility] Comment on above: Expected: 09/11/2024 (Approximate), Expires: 09/11/2025 Expected: 09/11/2024 , Expires: 09/11/2025 Start: 09-07-2024 End: 09-07-2024 Patient encounter procedure 09/07/2024 2:30 PM EST Office Visit [facility] [address] [place] [phone] Kyler Carvajal PA [address] [place], [place] [phone] [facility] Start: 07-04-2024 End: 07-04-2024 Patient encounter procedure 07/04/2024 12:30 PM EDT Office Visit [facility] [address] [place] [phone] Kyler Carvajal PA [address], [address] [place] [phone] [facility] Start: 06-16-2024 End: 06-16-2024 Admission to same day surgery center 06/16/2024 11:15 AM EDT - 06/16/2024 11:22 AM EDT Surgery [facility] [address] [place] [phone] Zeeshan Perry MD [address] [place], [place] [phone] INJECTION BLOCK SACROILIAC JOINT [94205 (CPT )] [facility] Comment on above: INJECTION BLOCK SACR OILIAC JOINT [23186 (CPT )] Start: 06-16-2024 End: 06-16-2024 Inject si joint arthrgrphy&/anes/steroid w/trav INJECTION BLOCK SACROILIAC JOINT Disorder of sacrum 06/16/2024 11:15 AM EDT [facility] Start: 06-16-2024 Subsequent hospital visit by physician 06/16/2024 11:15 AM EDT Hospital Encounter [facility] [address] [place] [phone] Zeeshan Perry MD [address] [facility] [address] [facility] Start: 05-07-2024 Influenza vaccination Influenza Vacc ine [facility] Start: 03-23-2022 [facility], Provider: Edy Dominguez, Status: Pen, Time: 2:30 PM [facility], Provider: Edy Dominguez, Status: Pen, Time: 2:30 PM UK-Qwqkcrxpucozut-N [place] Work Phone: Start: 12-19-2021 POV, Provider: Edy Dominguez, Status: Pen, Time: 4:00 PM POV, Provider: Edy Dominguez, Status: Pen, Time: 4:00 PM VL-Dheleisfdylach-Z [place] Work Phone: Start: 12-04-2021 [facility]: Edy Dominguez, Status: Pen, Time: 7:00 AM [facility] Provider: Edy Dominguez, Status: Pen, Time: 7:00 AM SC-Nbyzhgrwoikmhr-W [place] Work Phone: Start: 10-06-2021 [facility], Provider: Edy Dominguez, Status: Pen, Time: 3:00 PM [facility], Provider: Edy Dominguez, Status: Pen, Time: 3:00 PM YK-Xtkautukdrlidv-X [place] Work Phone: Start: 07-10-2021 [facility] Provider: Edy Dominguez, Status: Pen, Time: 11:00 AM [facility], Provider: Edy Dominguez, Status: Pen, Time: 11:00 AM GK-Ukerjnvhglzomm-P [place] Work Phone: Start: 01-24-1997 Screening for malign ant neoplasm of cervix Pap Smear [facility] Start: 01-24-1995 DTaP,Tdap and Td Vac cines (1 - Tdap) DTaP,Tdap and Td Vaccines (1 - Tdap) [facility] Start: 01-24-1994 Adult BMI Follow Up Plan Adult BMI Follow Up Plan [facility] Start: 1988 Depression Screening Depression Scre ening [facility] Tissue exam Tissue exam Path ology and Cytology Routine Dysfunctional uterine bleeding Pre-operative exam Ordered: 11/01/2024 [facility] Work Phone: Comment on above: Ordered: 11/01/2024 Immunizations Immunization Date Immunization Notes Care Provider [facility] 08-21-2020 influenza, injectabl e, quadrivalent, contains preservative Thi Stephens MD Work Phone: [facility] 08-21-2020 influenza virus vaccine, unspecified formulation Kyler FRANCO Work Phone: [facility] 05-23-2019 influenza, injectabl e, quadrivalent, contains preservative Thi Stephens MD Work Phone: [facility] Payers Date Payer Category Payer Self-pay 2023 Medicare (Managed Care) VERENICE VIVEROS [id number] 2023 Medicaid [id number] 2022 Medicare [facility] MEDICARE ANTHEM MEDICARE ADVANTAGE [id number] 2022-Present [phone] [address] [place] [address] [id number] 2022 Medicare HMO [employer]M MEDICARE [id number] 2022 Medicare [id number] 2019 Auto Insurance [employer] [id number] 1976 Unknown [id number] 2.16.840.1.526276.3.579.2. 593 1976 Unknown [id number] 2.16.840.1.069091.3.579.2. 1286 1976 Unknown [id number] 2..840.1.473507.3.579.2. 1285 1976 Unknown [id number] 2.16.840.1.252245.3.579.2. 1285 1976 Unknown [id number] 2.16.840.1.174041.3.579.2. 1285 1976 Unknown [id number] 2.16.840.1.200019.3.579.2. 1285 1976 Unknown [id number] 2.16.840.1.074755.3.579.2. 1285 1976 Unknown [id number] 2.16.840.1.987541.3.579.2. 1285 1976 Unknown [id number] 2.16.840.1.640377.3.579.2. 1285 1976 Unknown [id number] 2.16.840.1.400678.3.579.2. 1285 1976 Unknown [id number] 2.16.840.1.363442.3.579.2. 1285 1976 Unknown [id number] 2.16.840.1.131593.3.579.2. 1285 1976 Unknown [id number] 2.16.840.1.391028.3.579.2. 1285 1976 Unknown [id number] 2.16.840.1.273270.3.579.2. 1258 1976 Unknown [id number] 2.16.840.1.274483.3.579.2. 1258 1976 Unknown [id number] 2.16.840.1.616858.3.579.2. 1258 1976 Unknown [id number] 2.16.840.1.045379.3.579.2. 1976 Unknown [id number] 2.16.840.1.059910.3.579.2. 1976 Unknown [id number] 2.16.840.1.341361.3.579.2. 718 1976 Unknown [id number] 2.16.840.1.850255.3.579.2. 718 1976 Unknown [id number] 2.16.840.1.077837.3.579.2. 718 1976 Unknown [id number] 2.16.840.1.497981.3.579.2. 718 1959 Medicaid [id number] 1958 Medicare [id number] Private Health Insurance [employer] [id number] Unknown Unknown [id number] 2.16.840.1.864135.3.579.2. 531 Unknown [id number] 2.16.840.1.206764.3.579.2. 531 Social History Date Type Detail Facility Unknown if ever smoked [facility] Other Start: 08-09-2024 End: 09-07-2024 Sex Assigned At [facility] ystem Tobacco smoking stat us GAIS Unknown if ever smoked [facility] Work Phone: Start: 07-26-2024 End: 11-03-2024 Sex Female (finding) [facility] Start: 1975 Sex Assigned At Female F [facility] Start: 07-08-2022 End: 08-09-2024 Tobacco smoking status NHIS Never smoked tobacco [facility] Start: 07-08-2022 End: 08-09-2024 Tobacco use and exposure Smokeless tobacco non-user [facility] Start: 09-07-2024 End: 10-26-2024 Alcoholic beverage intake Current drinker of alcohol (finding) [facility] Start: 08-09-2024 End: 09-07-2024 History of Social function [facility] Adolescent depressio n screening assessment 0 [facility] Start: 04-12-2017 Alcohol Comment Socially [facility] Start: 1975 Sex assigned at [facility] Equipment Procedure Code Equipment Code Equipment Origin al Text Equipment Identifier Dates Scr Bn Twstof Fr s 2.0x13 Ns - Sws13 - [id number] Start: 02-11-2018 Comment on above: Description: WS13 2. 0 major thread, 13 mm screw, pitch 0.87 - SCR BN TWSTOF FRS 2.0X13 NS Titanium Fixos 2.0 WS twist off screws Scr Bn Twstof Fr s 2.0x15 Ns - Sws15 - [id number] Start: 02-11-2018 Comment on above: Description: WS15 2. 0 major thread, 15 mm screw, pitch 0.87 - SCR BN TWSTOF FRS 2.0X 15 NS Titanium Fixos 2.0 WS twist off screws Clinical Notes 05-04-2021 to 11-06-2024 Lotus Bailey LPN - 11/01/2024 1:00 PM ESTMaJOAN Spears - 10/26/2024 2:00 PM ESTPatient Renny Bailey LPN - 09/19/2024 1:10 PM Rach Stephens MD - 09/11/2024 11:40 AM EST Note Date & Type Note Facility 11-06-2024 Note Entered by MILTON MONTOYA DO on November 06, 2024 11:01:24 EST From: TONEY MONTOYA DO To: [place] [id number] Sent: 11/06/2024 11:01:24 EST Subject: Medication Management Submitted: Complete:citalopram (citalopram 20 mg oral tablet) Signed by TONEY MONTOYA DO 11/06/2024 11:01:00 EST Approved with modifications: citalopram (Citalopram Hydrobromide 20 MG Oral Tablet) Take 1 tablet by mouth once daily Qty: 30 tab(s) Days Supply: 30 Refills: 5 Substitutions Allowed Route To Pharmacy - [place] [id number] From: [facility] To: TONEY MONTOYA DO Sent: November 06, 2024 8:20:27 AM MEDICAL CLERICAL ASSISTANT Subject: Medication Management Due: November 07, 2024 12:02:49 AM MEDICAL CLERICAL ASSISTANT On Hold Pending Signature Dispensed Drug: citalopram (citalopram 20 mg oral tablet), Take 1 tablet by mouth once daily Quantity: 30 tab(s) Days Supply: 30 Refills: 0 Substitutions Allowed Notes from Pharmacy: [facility] 11-01-2024 History of Presen t illness Narrative Reason for Appointment: Patient ID: Lauro Pinto is a 49 y.o. female who presents for Vaginal Bleeding and Pre-op Visit Patient presents today for Pre Op/Endometrial Biopsy appointment. Patient is scheduled to undergo Endometrial Ablation with Anya on 11/10/[address] Aguilar at [facility]. 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 Exam conducted with a recreation clerk present. Vitals: Estimated body mass index is [...] reviewed, and patient is to proceed to [facility]. Follow Up: Patient is to follow up between 1-2 weeks post operative to assess proper healing and recovery from procedure. Documented by Lotus Bailey LPN on behalf of: Jorge Aguilar DO documented in this encounter [facility] 10-31-2024 Note Entered by MILTON MONTOYA DO on October 31, 2024 14:25:57 EST From: TONEY MONTOYA DO To: [place] [id number] Sent: 10/31/2024 14:25:57 EST Subject: Medication Management Submitted: Complete:omeprazole (omeprazole 40 mg oral delayed release capsule) Signed by TONEY MONTOYA DO 10/31/2024 14:25:00 EST Approved with modifications: omeprazole (OMEPRAZOLE DR 40MG CAP) Take 1 capsule by mouth once daily Qty: 30 cap(s) Days Supply: 30 Refills: 5 Substitutions Allowed Route To Pharmacy - [place] [id number] From: [facility] To: TONEY MONTOYA DO Sent: October 31, 2024 12:02:15 PM MEDICAL CLERICAL ASSISTANT Subject: Medication Management Due: November 01, 2024 12:11:39 AM MEDICAL CLERICAL ASSISTANT On Hold Pending Signature Dispensed Drug: omeprazole (omeprazole 40 mg oral delayed release capsule), Take 1 capsule by mouth once daily Quantity: 30 cap(s) Days Supply: 30 Refills: 0 Substitutions Allowed Notes from Pharmacy: [facility] 10-26-2024 History of Presen t illness Narrative [facility] [address] [place] [address] Patient: Lauro A Blair Sex: female : 1975 Age: 49 y.o. PCP: TONEY MONTOYA DO 10/26/2024 Lauro Pinto is here for [...] 03/20/2022 Performed by Zeeshan Perry MD at [facility] INJECTION BLOCK NERVE MEDIAL BRANCH Bilat L 4/5,5/1 Bilateral 02/06/2022 Performed by Zeeshan Perry MD at [facility] INJECTION BLOCK SACROILIAC JOINT Bilateral 08/11/2024 Performed by Zeeshan Perry MD at [facility] INJECTION BLOCK SACROILIAC JOINT Bilateral 07/09/2023 Performed by Zeeshan Perry MD at [facility] INJECTION BLOCK SACROILIAC JOINT Bilateral 08/07/2022 Performed by Zeeshan Perry MD at [facility] MEDIAL BRANCH NERVE BLOCK Bialteral L 3/4, 4/5 Medial Branhc Block X 1 Bilateral 05/07/2017 Performed by Zeeshan Perry MD at [facility] MEDIAL BRANCH NERVE BLOCK BILATERAL L3/4, 4/5 Bilateral 10/22/2017 Performed by Zeeshan Perry MD at [facility] KNEE ARTHROSCOPY W/ MENISCECTOMY Left 11/2022 OSTEOTOMY KELTON PROCEDURE METATARSAL Right 02/11/2018 Performed by Hector Watson DPM at [facility] RADIOFREQUENCY ABLATION SPINAL left L 4/5, 5/1 Left 05/15/2022 Performed by Zeeshan Perry MD at [facility] RADIOFREQUENCY ABLATION SPINAL right L 4/5,5/1 Right 04/24/2022 Performed by Zeeshan Perry MD at [facility] RADIOFREQUENCY ABLATION SPINAL: right [id number] [id number] Right 03/11/2018 Performed by Zeeshan Perry MD at [facility] SPINE SURGERY 09/06/2009 L5/S1 diskectomy and [...] John 10/31/24 1146 documented in this encounter [email or web address] 10-26-2024 Instructions Zainab Robles CNA - 10/26/2024 [...] nearest emergency room. documented in this encounter [email or web address] 10-09-2024 Note Entered by MILTON MONTOYA DO on October 09, 2024 07:30:49 EST From: TONEY MONTOYA DO To: [facility] Sent: 10/09/2024 07:30:49 EST Subject: Medication Management Submitted: Complete:busPIRone (busPIRone 10 mg oral tablet) Signed by TONEY MONTOYA DO 10/09/2024 07:30:00 EST Approved with modifications: busPIRone (busPIRone HCl 10 MG Oral Tablet) Take 1 tablet by mouth twice daily as needed Qty: 60 tab(s) Days Supply: 30 Refills: 2 Substitutions Allowed Route To Pharmacy - [place] [address] From: [place] [address] To: TONEY MONTOYA DO Sent: October 06, 2024 12:01:36 PM MEDICAL CLERICAL ASSISTANT Subject: Medication Management Due: October 07, 2024 12:04:38 AM MEDICAL CLERICAL ASSISTANT On Hold Pending Signature Dispensed Drug: busPIRone (busPIRone 10 mg oral tablet), Take 1 tablet by mouth twice daily as needed Quantity: 60 tab(s) Days Supply: 30 Refills: 0 Substitutions Allowed Notes from Pharmacy: [facility] 09-19-2024 History of Presen t illness Narrative [...] mass index (BMI) of 40.0 to 49.9 ([facility]) Papillary thyroid carcinoma ([facility]) 07/2021 Post-surgical hypothyroidism ([facility]) Vitamin D deficiency, unspecified HISTORY PAST MEDICAL HISTORY SOCIAL HISTORY Past Medical History: Diagnosis Date Dietary counseling and surveillance Morbid obesity with body mass index (BMI) of 40.0 to 49.9 ([facility]) Papillary thyroid carcinoma ([facility]) 07/2021 left side Jul 2021, Completion sx November 2021 Post-surgical hypothyroidism ([facility]) Vitamin D deficiency, unspecified Social History Tobacco [...] nursing note reviewed. Exam conducted with a recreation clerk present. Vitals: Estimated body mass index is [...] Jorge Aguilar DO documented in this encounter [facility] 09-11-2024 History of Presen t illness Narrative [...] 08/2022 follow up visit on 08/18/2022 on 200+21=825 mcg daily. no new lab yet. HPI: 01/2022 New patient sent from Dr. Edy Dominguez, the surgeon, with the surgery for her twice in [facility] in [place], first one in left lobe for thyroid [...] not have the pathology report left side. tH2vqVy, largest foci 0.8 cm. SUBJECTIVE: MEDICATIONS: Current [...] months (around 12/10/2024). documented in this encounter [facility] 09-07-2024 History of Presen t illness Narrative [facility] [address] [place] [address] Patient: Lauro Pinto Sex: female : 1975 Age: 49 y.o. PCP: TONEY MONTOYA DO 09/07/2024 Lauro Pinto is here for a(n) post procedure [...] duration: see above Pain scale after treatment: 2-310 Chief Complaint Patient presents with Back Pain [...] BLOCK NERVE MEDIAL BRANCH Bilat L 4/5, 5/1 Bilateral 03/20/2022 Performed by Zeeshan Perry MD at [facility] INJECTION BLOCK NERVE MEDIAL BRANCH Bilat L 4/5,5/ Bilateral 02/06/2022 Performed by Zeeshan Perry MD at [facility] INJECTION BLOCK SACROILIAC JOINT Bilateral 08/11/2024 Performed by Zeeshan Perry MD at [facility] INJECTION BLOCK SACROILIAC JOINT Bilateral 07/09/2023 Performed by Zeeshan Perry MD at [facility] INJECTION BLOCK SACROILIAC JOINT Bilateral 08/07/2022 Performed by Zeeshan Perry MD at [facility] INJECTION MEDIAL BRANCH NERVE BLOCK Bialteral L 3/4, 4/5 Medial Branhc Block X 1 Bilateral 05/07/2017 Performed by Zeeshan Perry MD at [facility] MEDIAL BRANCH NERVE BLOCK BILATERAL L3/4, 4/5 Bilateral 10/22/2017 Performed by Zeeshan Perry MD at [facility] KNEE ARTHROSCOPY W/ MENISCECTOMY Left 11/2022 OSTEOTOMY KELTON PROCEDURE METATARSAL Right 02/11/2018 Performed by Hector Watson DPM at [facility] RADIOFREQUENCY ABLATION SPINAL left L 4/5, 5/1 Left 05/15/2022 Performed by Zeeshan Perry MD at [facility] RADIOFREQUENCY ABLATION SPINAL right L 4/5,5/ Right 04/24/2022 Performed by Zeeshan Perry MD at [facility] RADIOFREQUENCY ABLATION SPINAL: right L34 45 rfa Right 03/11/2018 Performed by Zeeshan Perry MD at [facility] SPINE SURGERY 09/06/2009 L5/S1 diskectomy and [...] and it is both accurate and complete. Zainba Robles CNA 09/07/24 1507 documented in this encounter [facility] 08-09-2024 Miscellaneous Notes Pt calls asking [...] procedure. PVU noted documented in this encounter [facility] 08-09-2024 Telephone encounter Note Pt calls [...] if she can proceed with procedure. PVU [facility] 08-09-2024 Telephone encounter Note noted [facility] 07-27-2024 Note [phone] [id number] [facility] 07-25-2024 Note [facility] SURGERY Clinical Discharge Summary PERSON INFORMATION Name LAURO PINTO Age 49 Years 1975 Sex FEMALE Language Swiss PCP TONEY MONTOYA DO Marital Status Single Med Service Ambulatory Surgery Acct# Arrival 07/25/2024 06:22:59 Visit Reason SURGERY - EGD AND COLONOSCOPY - ANEMIA AND FAMILY HX COLON CANCER [facility] 019 02:30 Address: [address] [place] [address] Comment: PROVIDER INFORMATION VITALS INFORMATION Vital Sign [...] Care After Follow up: With: Address: When: Koreyisaiah Ford [address] [place] [address], [place] [address] Business (1) , only if needed With: Address: When: TONEY MONTOYA DIAGNOSIS 1:Microcytic anemia Comment: PHYS DOC NOTES [facility] 07-07-2024 Note Entered by MILTON MONTOYA DO on July 07, 2024 16:49:08 EDT From: TONEY MONTOYA DO To: [facility] 142 Sent: 07/07/2024 16:49:08 EDT Subject: Medication Management Submitted: Complete:amitriptyline (amitriptyline 100 mg oral tablet) Signed by TONEY MONTOYA DO 07/07/2024 16:49:00 EDT Approved with modifications: amitriptyline (Amitriptyline HCl 100 MG Oral Tablet) TAKE 1 TABLET BY MOUTH ONCE DAILY AT BEDTIME Qty: 30 tab(s) Days Supply: 30 Refills: 5 Substitutions Allowed Route To Pharmacy - [facility] 1429 From: [facility] 1429 To: TONEY MONTOYA DO Sent: July 07, 2024 4:41:06 AM CDT Subject: Medication Management Due: July 08, 2024 12:19:20 AM CDT On Hold Pending Signature Dispensed Drug: amitriptyline (amitriptyline 100 mg oral tablet), TAKE 1 TABLET BY MOUTH ONCE DAILY AT BEDTIME Quantity: 30 tab(s) Days Supply: 30 Refills: 0 Substitutions Allowed Notes from Pharmacy: [facility] 05-29-2024 Miscellaneous Notes Insurance called requesting further [...] came back approved. documented in this encounter [facility] 05-29-2024 Telephone encounter Note Insurance called requesting further clinical information regarding procedure that was requested. They stated Case not meeting criteria for requested procedure because: The notes do not show that the previous injection met requirements for 50% and 3 months duration of relief. How do you want to proceed? [facility] 05-29-2024 Telephone encounter Note Chart please [facility] 05-29-2024 Telephone encounter Note Please call pt and ask how much relief she had after SI injection last year. I can do appeal if she had greater than 50%. [facility] 05-29-2024 Telephone encounter Note Called patient and she reported that 30% was a mistake. She claims she received at least 50% temporary relief. [facility] 05-29-2024 Telephone encounter Note May appeal: [...] that repeat SI injection is medically necessary. [facility] 05-29-2024 Telephone encounter Note Date of service changed for patient. Could not change date of service with insurance so a new authorization needed to be submitted. New auth is pending further medical review. Insurance states The notes do not show Low back pain below L5 without radiculopathy. Clinicals have been submitted. Waiting response from insurance. [facility] 05-29-2024 Telephone encounter Note Auth came back approved. [facility] 05-18-2024 History of Presen t illness Narrative [facility] [address] [place] [address] Patient: Lauro Pinto Sex: female : 1975 [...] BLOCK NERVE MEDIAL BRANCH Bilat L 4/5, 5/1 Bilateral 03/20/2022 Performed by Zeeshan Perry MD at [facility] INJECTION BLOCK NERVE MEDIAL BRANCH Bilat L 4/5,5/1 Bilateral 02/06/2022 Performed by Zeeshan Perry MD at [facility] INJECTION BLOCK SACROILIAC JOINT Bilateral 07/09/2023 Performed by Zeeshan Perry MD at [facility] INJECTION BLOCK SACROILIAC JOINT Bilateral 08/07/2022 Performed by Zeeshan Perry MD at [facility] MEDIAL BRANCH NERVE BLOCK Bialteral L 3/4, 4/5 Medial Branhc Block X 1 Bilateral 05/07/2017 Performed by Zeeshan Perry MD at [facility] MEDIAL BRANCH NERVE BLOCK BILATERAL L3/4, 4/5 Bilateral 10/22/2017 Performed by Zeeshan Perry MD at [facility] KNEE ARTHROSCOPY W/ MENISCECTOMY Left 11/2022 OSTEOTOMY KELTON PROCEDURE METATARSAL Right 02/11/2018 Performed by Hector Watson DPM at [facility] RADIOFREQUENCY ABLATION SPINAL left L 4/5, 5/1 Left 05/15/2022 Performed by Zeeshan Perry MD at [facility] RADIOFREQUENCY ABLATION SPINAL right L 4/5,5/1 Right 04/24/2022 Performed by Zeeshan Perry MD at [facility] RADIOFREQUENCY ABLATION SPINAL: right L34 45 rfa Right 03/11/2018 Performed by Zeeshan Perry MD at [facility] SPINE SURGERY 09/06/2009 L5/S1 diskectomy and [...] John 05/18/24 1340 documented in this encounter [facility] 05-18-2024 Instructions Zainab Robles CNA - 05/18/2024 [...] nearest emergency room. documented in this encounter [facility] 04-11-2024 Note Entered by MILTON MONTOYA DO on April 11, 2024 07:45:16 EDT From: TONEY MONTOYA DO To: [place] [address] Sent: 04/11/2024 07:45:16 EDT Subject: Medication Management Submitted: Complete:dicyclomine (dicyclomine 20 mg oral tablet) Signed by TONEY MONTOYA DO 04/11/2024 07:45:00 EDT Approved with modifications: dicyclomine (Dicyclomine HCl 20 MG Oral Tablet) Take 1 tablet by mouth 4 times daily Qty: 120 tab(s) Days Supply: 30 Refills: 2 Substitutions Allowed Route To Pharmacy - [place] [address] From: [place] [address] To: TONEY MONTOYA DO Sent: April 11, 2024 4:41:15 AM CDT Subject: Medication Management Due: April 12, 2024 12:06:30 AM CDT On Hold Pending Signature Dispensed Drug: dicyclomine (dicyclomine 20 mg oral tablet), Take 1 tablet by mouth 4 times daily Quantity: 120 tab(s) Days Supply: 30 Refills: 0 Substitutions Allowed Notes from Pharmacy: [facility] 01-14-2024 Note Entered by MILTON MONTOYA DO on January 14, 2024 18:17:35 EDT From: TONEY MONTOYA DO To: [place] [address] Sent: 01/14/2024 18:17:35 EDT Subject: Medication Management Submitted: Complete:amitriptyline (amitriptyline 100 mg oral tablet) Signed by TONEY MONTOYA DO 01/14/2024 18:17:00 EDT Approved with modifications: amitriptyline (Amitriptyline HCl 100 MG Oral Tablet) TAKE 1 TABLET BY MOUTH ONCE DAILY AT BEDTIME Qty: 30 tab(s) Days Supply: 30 Refills: 5 Substitutions Allowed Route To Pharmacy - [facility] From: [facility] To: TONEY MONTOYA DO Sent: January 14, 2024 8:12:24 AM CDT Subject: Medication Management Due: January 15, 2024 12:11:58 AM CDT On Hold Pending Signature Dispensed Drug: amitriptyline (amitriptyline 100 mg oral tablet), TAKE 1 TABLET BY MOUTH ONCE DAILY AT BEDTIME Quantity: 30 tab(s) Days Supply: 30 Refills: 0 Substitutions Allowed Notes from Pharmacy: [facility] 12-05-2021 Note Send Summary: Discharge Summary Providers: Provider RoleProvider Name Edy Morrow Jason PrimaryHouse, Charles Note Recipients: Toney Montoya MD - [id number] [] Edy Dominguez MD Discharge: Summary: Admission [...] Last Updated: 05-Dec-2021 07:11 by Edy Dominguez) [facility] 12-04-2021 Note PROCEDURE DETAILS Preoperative Diagnosis: Follicular variant papillary thyroid cancer Postoperative Diagnosis: Follicular variant papillary thyroid cancer Surgeon: Edy Dominguez MD Resident/Fellow/Other Waste Collector: Alexey Procedure: 1. Completion right thyroidectomy with [...] was identified, isolated, clipped, and cut. A [place] was placed on the superior pole being [...] than 5 minutes. Electronic Signatures: Modesto Blackburn ( (Resident)) (Signed 04-Dec-2021 06:24) Authored: Post-Operative Note, Chart Review, Note Completion Edy Dominguez) (Signed 04-Dec-2021 09:55) Authored: Post-Operative Note, Chart Review, Note Completion Last Updated: 04-Dec-2021 09:55 by Edy Dominguez) [facility] 12-04-2021 Note History of Present I llness: /Lactating: Are You no Are You Currently Breastfeedingno History Present Illness: Reason for surgery: Thyroid cancer - completion thyroidectomy HPI: Surgery: Completion Right Thyroidectomy Name: Lauro Pinto ([id number]) Surgeon: Edy Dominguez MD Age: 46 Date [...] the note. I personally evaluated the patient [id number] Electronic Signatures: Modesto Blackburn (Resident)) (Signed 04-Dec-2021 04:52) Authored: History of Present Illness, Allergies, Home Medication Review, Impression/Procedure, ERAS, Physical Exam, Consent, Note Completion Edy Dominguez) (Signed 04-Dec-2021 05:52) Authored: History of Present Illness, Note Completion Co-Signer: History of Present Illness, Allergies, Home Medication Review, Impression/Procedure, ERAS, Physical Exam, Consent, Note Completion Last Updated: 04-Dec-2021 05:52 by Edy Dominguez) [facility] 08-16-2021 Evaluation note Encounter Date Diagnosis Assessment Notes Aug, Cough (ICD-10 - R05.9) Aug, COVID-19 (ICD-10 - U07.1) Drink plenty fluids, get plenty of rest. Continue home medications as prescribed. Use the albuterol inhaler as prescribed as needed for cough or shortness of breath. Follow-up with your family physician if no improvement in 2 to 3 days [facility] Other 11-05-2021 NoteSend Summary: Discharge Summary Providers: [...] Completion Last Updated: 11-Jul-2021 06:09 by Edy Dominguez)[facility] 07-10-2021 NotePROCEDURE DETAILS Preoperative Diagnosis: Left thyroid nodule Postoperative Diagnosis: Left thyroid nodule Surgeon: Edy Dominguez Resident/Fellow/Other Waste Collector: Juan Becerra Procedure: 1. Left hemithyroidectomy with [...] was identified, isolated, clipped, and cut. A [place] was placed on the superior pole being [...] Completion Last Updated: 10-Jul-2021 13:54 by Edy Dominguez)[facility] 07-10-2021 NoteHistory & Physical Reviewed: /Lactating: Are [...] the note. I personally evaluated the patient [id number] Electronic Signatures: Juan Becerra (Resident)) (Signed 10-Jul-2021 07:14) Authored: History & Physical Reviewed, ERAS, Consent, Note Completion Edy Dominguez) (Signed 10-Jul-2021 08:58) Authored: Note Completion Co-Signer: History & Physical Reviewed, ERAS, Consent, Note Completion Last Updated: 10-Jul-2021 08:58 by Edy Dominguez)[facility] 07-07-2021 History of Present illness Narrative* 46-year-old [...] morning. She has not developed any symptoms UP-Vnatdlctomfyai-Zsfibpdm Work Phone: [phone]) 463-631808-29-2021 History of Present illness Narrative* 46-year-old female [...] social alcohol use. She is on disability FF-Cjhxewxflbqdmd-Stsvoqba Work Phone: Evaluation noteNo assessment information available [facility] Work Phone: Evaluation note* Diagnosis Lumbosacral spondylosis without myelopathy- Primary [facility] Diagnosis Postprocedural hypothyroidism Postsurgical hypothyroidism Malignant neoplasm of thyroid gland (CMS-HCC) Malignant neoplasm of thyroid gland [facility] Diagnosis Postoperative hypothyroidism (CMS/HCC)- Primary Postsurgical hypothyroidism Papillary thyroid carcinoma (CMS/HCC) Vitamin D deficiency Encounter for dietary consultation Class 3 severe obesity due to excess calories without serious comorbidity with body mass index (BMI) of 40.0 to 44.9 in adult (CMS/HCC) documented in this encounter [facility]* Diagnosis Dysfunctional uterine bleeding Other disorder of menstruation and other abnormal bleeding from female genital tract Iron deficiency anemia, unspecified iron deficiency anemia type documented in this encounter [facility] HealthcareEvaluation note* Diagnosis Disorder of sacrum- Primary Disorders of sacrum Disorder of sacrum- Primary Disorders of sacrum Disorder of sacrum Disorders of sacrum [facility] Diagnosis Disorder of sacrum- Primary Disorders of sacrum Disorder of sacrum- Primary Disorders of sacrum Disorder of sacrum Disorders of sacrum [facility] Diagnosis Dysfunctional uterine bleeding Other disorder of menstruation and other abnormal bleeding from female genital tract Pre-operative exam Unspecified pre-operative examination documented [facility] this encounter [facility] Narrative - Reported* Type Description Date Medical History heartburn Medical History pulmonary embolism Surgical History tonsillectomy Surgical History umbilical hernia repair Surgical History appendectomy Surgical History tubal ligation Surgical History back surgery x2 Surgical History right foot x5 Hospitalization History see above [facility] Other History of Present illness Narrative* 46-year-old [...] has not noticed any change in symptoms [employer]jem[employer]ph[facility] Work Phone: History of Present illness NarrativePatient presents today after hemithyroidectomy. Final pathology pending. Doing well since her surgery. No issues with voice or iepkmdfqauLY-Siqkiehojhrjyz-Ybhsdlfe Work Phone: History of Present illness NarrativePatient presents today to discuss completion thyroidectomy. 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 She has been doing well and has not had any significant changes. No issues with voice or znhqzpfrhpBC-Vkwwkmdlmkeqaw-Pagugsff [facility] Work Phone: History of Present illness NarrativePatient presents today for follow up after completion thyroidectomy. Pathology after initial surgery showed multifocal carcinoma. No cancer identified on completion. She has been doing well No issueswith voice or aopztomiqwSJ-Jxmgtrozykuhzd-Qpxltuul Work Phone: InstructionsNot on filedocumented in this encounter [facility] filed[facility]ed [facility] filedocumented in this encounter [facility] filedocumented in this encounter [facility] Summary Purpose Family History No Family [...] Referral Specialty Diagnoses / Procedures Referred By Alicia abbott Referred To Contact Diagnoses Disorder of sacrum Procedures Case request operating room: INJECTION BLOCK SACROILIAC JOINT Kyler Carvajal, JOAN [address], [address] [place] [address] Referral ID Status Reason Start Date Expiration Date V isits Requested Visits Authorized [id number] Pending Review 05/18/2024 05/18/2025 1 1 Additional Source Comments INFORMATION SOURCE (unrecogn ized section and content) DATE CREATED AUTHOR 03/02/2018 [facility] DATE CREATED AUTHOR AUTHOR'S ORGANIZ ATION 10/03/2020 [facility] DATE CREATED AUTHOR AUTHOR'S ORGANIZ ATION 12/13/2021 [facility] DATE CREATED AUTHOR AUTHOR'S ORGANIZ ATION 12/21/2021 [facility] DATE CREATED AUTHOR AUTHOR'S ORGANIZ ATION 03/27/2022 [employer] DATE CREATED AUTHOR AUTHOR'S ORGANIZ ATION 10/28/2024 [facility] DATE CREATED AUTHOR AUTHOR'S ORGANIZ ATION 11/03/2024 [facility] DATE CREATED AUTHOR AUTHOR'S ORGANIZ ATION 11/07/2024 [facility] DATE CREATED AUTHOR AUTHOR'S ORGANIZ ATION 11/09/2024 [facility] REASON FOR VISIT (unrecogniz ed section and content) Reason Comments Back Pain Reason Comments Vaginal Bleeding anemia Reason Comments Back Pain Reason Comments Back Pain Knee Pain Reason Comments Vaginal Bleeding Pre-op Visit Care Teams (unrecognized sec tion and content) Team Status: Active Member Role Status Dates Sofiya Cole MD Primary Care Provider Active Team Status: Inactive Member Role Status Dates Sofyia Cole MD Primary Care Provider Active Start: July 25, 2024 End: July 25, 2024 Korey Ford MD Attending Provider Active Start: July 25, 2024 End: July 25, 2024 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 Design 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 Relationship Specialty Start Date End Date Toney Montoya DO PCP - General Family Medicine 09/13/20 Marine Design Engineer Relationship Specialty Start Date End Date Toney Montoya DO PCP - General Family Medicine 09/13/20 Marine Design Engineer Relationship Specialty Start Date End Date Toney Montoya MD [address] [place] [address] PCP - General Family Medicine 08/09/24 Marine Design Engineer Relationship Specialty Start Date End Date Toney Montoya MD [address] [place] [address] PCP - General Family Medicine 08/09/24 Marine Design Engineer Relationship Specialty Start Date End Date Toney Montoya MD [address] [place] [address] PCP - General Family Medicine 08/09/24 Marine Design Engineer Relationship Specialty Start Date End Date Toney Montoya DO [address] [place] [id number] PCP - General Family Medicine 09/13/20 Marine Design Engineer Relationship Specialty Start Date End Date Toney Montoya DO PCP - General Family Medicine 09/13/20 Marine Design Engineer Relationship Specialty Start Date End Date Toney Montoya DO PCP - General Family Medicine 09/13/20 Marine Design Engineer Relationship Specialty Start Date End Date Toney Montoya DO PCP - General Family Medicine 09/13/20 Marine Design Engineer Relationship Specialty Start Date End Date Toney Montoya MD [address] [place] [address] PCP - General Family Medicine 08/09/24 Team Status: Inactive Member Role Status Tom Cole MD Primary Care Provider Active Start: November 01, 2024 End: November 01, 2024 Jorge Aguilar DO Attending Provider Active Start : November 01, 2024 End: November 01, 2024 Marine Design Engineer Relationship Specialty Start Date End Date Toney Montoya MD [address] [place] [address] PCP - General Family Medicine 08/09/24 Goals [...] BE BASED ON THE PRIMARY CLINICAL RECORDS. [facility] [employer] [facility]. provides no warranty or guarantee of the accuracy or completeness of information in this document.
[2024-11-10 08:35] LABS: HCG Quantitative 3 mIU/mL
[2024-11-10] MEDS: LACTATED RINGER'S SOLUTION 1,000 ML 50 ML IV ×2 (08:44→11:28)
--- NOTE | 2024-11-10 10:17 | PM.ONB ---
Brief Operative Note Date of procedure: 11/10/24 Pre-op diagnosis general: menorrhagia, uterine polyp Post-op diagnosis: same as pre-op Procedure: NAME OF PROCEDURE: [ ] Anya endometrial ablation with hysteroscopy. with polypectomy PROCEDURE: The patient was taken back to the OR where she was prepped and draped in the normal sterile fashion after being placed in the dorsal lithotomy position, after being placed under general anesthesia without difficulty.? A weighted speculum was placed into the vagina. The anterior lip was grasped with a single tooth tenaculum. The patient was then sounded to approximated 8cm. The patient?s cervix was gently dilated using hegar dilators. The hysteroscope was passed through the cervix into the uterus where both ostia were seen. No gross evidence of fibroids or malignancy. uterine polyp noted. The cervical length was noted to be 4 cm. The total cavity length is 4cm.?please note prior to ablation uterine polyp was removed using polyp forcep. The Anya ablation apparatus was set to approximately 4cm in length. This was placed through the cervix and into the uterus. After the seal was tested, at that time the total ablation of 120 seconds was performed with the Anya withoutdifficulty. All instruments were removed from the vagina. Excellent hemostasis noted.? Sponge and lap count correct times 2.? Patient taken to recovery in stable condition. Anesthesia: MAC Surgeon: Jorge Aguilar Estimated blood loss (mL): 5 Pathology: other (uterine polyp) Condition: stable Disposition: PACU Urinary Catheter Management Urinary Catheter Management Straight: Cath placed during this visit: no
--- NOTE | 2024-11-10 12:28 | PC.NURSE ---
PATIENT URINATED PRIOR TO DISCHARGE. PATIENT DENIES ANY PAIN AT THIS TIME
== END 2024-11-10 12:20 | disposition home or self-care (01) ==
PROVIDERS: PCP Family Medicine; Visit Provider Obstetrics & Gynecology
PROC: (CPT 952; principal; 2024-11-10 09:25)
DX: N92.0 Excessive and frequent menstruation with regular cycle (principal); N93.8 Other specified abnormal uterine and vaginal bleeding; R10.2 Pelvic and perineal pain; N84.0 Polyp of corpus uteri; E89.0 Postprocedural hypothyroidism; E66.01 Morbid (severe) obesity due to excess calories; Z68.39 Body mass index [BMI] 39.0-39.9, adult; Z98.51 Tubal ligation status; Z86.711 Personal history of pulmonary embolism; K21.9 Gastro-esophageal reflux disease without esophagitis; Z85.850 Personal history of malignant neoplasm of thyroid
CPT/HCPCS: 58563; 36415; 84702; 85025; 88305; J1100; J1171; J1885; J2250; J2405; J2704; J3010

== ENCOUNTER 2025-05-29 19:40 | Outpatient (REF) | payer MEDICARE, MEDICAID, SELFPAY ==
--- OUTSIDE RECORDS SUMMARY | 2025-05-29 19:45 | XMS_ITS | CCD ---
Author Organization [facility] Care Team Providers Care Gold Nib Grinder Name Role Phone MARKER, AMY Admitting Unavailable MARKER, AMY Attending Unavailable SOFIYA COLE Primary Care Unavailabl e RUPINDER CHANG Consulting Unavailable MARKER, AMY Consulting Unavailable AMBREEN ZENDEJAS Consulting Unavailable None, No PCP Unavailable Unavailable Unavailable Unavailable Toney Montoya Unavailable Melody Brandon Unavailable Sofiya Cole MD Primary Care Provider [phone] Korey Ford MD Attending Provider Toney Montoya DO Primary Care Provider Toney Montoya MD Primary Care Provider Toney Montoya DO Primary Care Provider Sofiya Cole MD Primary Care Provider [phone] Jorge Aguilar DO Attending Provider [phone] Jose Aguilary Admitting Unavailable Jorge Aguilar Attending Unavailable Sofiya Cole Primary Care Unavailable Lauren, Jorge Admitting Unavailable Lauren, Joreg Attending Unavailable Korey Ford Admitting Unavailable Korey Ford Attending Unavailable Sofiya Cole Primary Care Unavailable Sofiya Cole MD Primary Care Provider [phone] Jorge Aguilar DO Attending Provider Toney Montoya DO Primary Care Provider KYLER CARVAJAL Attending Unavailable TONEY MONTOYA Referring Unavailable TONEY MONTOYA Primary Care Unavailable ZEESHAN PERRY Attending Unavailable ZEESHAN PERRY Referring Unavailable HOUSE, TONEY P Primary Care Unavailable PERRY, ZEESHAN Renteria Admitting Unavailable PERRY, ZEESHAN Renteria Attending Unavailable HOUSE, TONEY P Referring Unavailable [...] P Primary Care Unavailable PERRY, ZEESHAN Renteria Admitting Unavailable PERRY, ZEESHAN Renteria Attending Unavailable PERRY, ZEESHAN E Referring Unavailable HOUSE, TONEY P Primary Care Unavailable HOUSE, TONEY P Referring Unavailable HOUSE, TONEY P Primary Care Unavailable NIENBERG, KYLER S Attending Unavailable HOUSE, TONEY P Referring Unavailable HOUSE, TONEY P Primary Care Unavailable NIENBERG, KYLER S Attending Unavailable HOUSE, TONEY P Referring Unavailable HOUSE, TONEY P Primary Care Unavailable PERRY, ZEESHAN Renteria Admitting Unavailable PERRY, ZEESHAN Renteria Attending Unavailable HOUSE, TONEY P Referring Unavailable HOUSE, TONEY P Primary Care Unavailable PERRY, ZEESHAN Renteria Attending Unavailable PERRY, ZEESHAN Renteria Referring Unavailable HOUSE, TONEY P Primary Care Unavailable NIENBERG, KYLER S Attending Unavailable HOUSE, TONEY P Referring Unavailable HOUSE, TONEY P Primary Care Unavailable NIENBERG, KYLER S Attending Unavailable HOUSE, TONEY P Referring Unavailable HOUSE, TONEY P Primary Care Unavailable PERRY, ZEESHAN Renteria Attending Unavailable PERRY, ZEESHAN Renteria Referring Unavailable HOUSE, TONEY P Primary Care Unavailable PERRY, ZEESHAN Renteria Admitting Unavailable PERRY, ZEESHAN Renteria Attending Unavailable HOUSE, TONEY P Referring Unavailable HOUSE, TONEY P Primary Care Unavailable NIENBERG, KYLER S Attending Unavailable HOUSE, TONEY P Referring Unavailable HOUSE, TONEY P Primary Care Unavailable House Toney SANTIZO Primary Care Provider JORGE AGUILAR Attending Unavailable THI STEPHENS Attending Unavailable JORGE AGUILAR Attending Unavailable KATTHI HER F Attending Unavailable KAT, AHMAD F Referring Unavailable JORGE AGUILAR Attending Unavailable HOUSE, TONEY P Primary Care Unavailable HOUSE, DO TONEY P Attending Unavailable HOUSE, DO TONEY P Attending Unavailable HOUSE, TONEY P Primary Care Unavailable Korey Ford Attending Unavailable HOUSE, TONEY P Primary Care Unavailable Korey Ford Admitting Unavailable Korey Ford Attending Unavailable HOUSE, TONEY P Primary Care Unavailable HOUSE, TONEY P Primary Care Unavailable HOUSE, DO TONEY Melara Attending Unavailable HOUSE, DO TONEY P Attending Unavailable HOUSE, TONEY P Primary Care Unavailable HOUSE, DO TONEY P Attending Unavailable HOUSE, TONEY Melara Primary Care Unavailable HOUSE, DO TONEY Melara Attending Unavailable HOUSE, TONEY Melara Primary Care Unavailable Allergies Allergy Classification Reported Allergen(s) Allergy Type Date of Onset Reaction(s) Facility (1 source) Amoxicillin Drug Allergy itching [facility] [employer] Other (1 source) Amoxicillin Drug Allergy 08-16-2021 [facility] Repository Medications Current Medications Medication Drug Class(es) Dates Sig (Normalized) Sig (Original) acetaminophen 500 mg oral tablet (12 sources) take 1 tablet by mouth every six hours as needed for pain acetaminophen (TYLENOL EXTRA STRENGTH) 500 mg tablet Take 1 tablet (500 mg total) by mouth every 6 (six) hours as needed for pain. Active [id number] 200 actuat albuterol 0.09 mg/actuat metered dose [...] Discontinued amitriptyline hydrochloride 100 mg oral tablet (17 sources) Tricyclic Antidepressant Start: 05-14-2024 End: 09-19-2024 [...] calcium carbonate 1250 mg or al tablet (18 sources) Start: 12-05-2021 calcium carbon ate (OS-CHRIS) 500 mg calcium (1,250 mg) tablet 12/05/2021 Active End: 09-19-2024 take 1 tablet by mouth in the morning calcium carbonate (Os-Chris) 1250 (500 Ca) MG tablet Take 1 tablet by mouth in the morning and 1 tablet before bedtime. 09/19/2024 Discontinued cariprazine 1.5 mg oral capsule (20 sources) Atypical Antipsychotic Start: 10-01-2020 End: 04-18-2025 take 1 capsule by mouth in the morning VRAYLAR 1.5 mg capsule Take by mouth in the morning. 10/01/2020 Active Vraylar Active cholecalciferol 0.125 mg oral tablet (17 sources) Vitamin D End: 09-19-2024 take 1 tablet by mouth in the morning cholecalciferol, vitamin D3, 5,000 units tablet Take 1 tablet (5,000 Units total) by mouth in the morning. Active citalopram 20 mg oral tablet (19 sources) Serotonin Reuptake Inhibitor Start: 04-26-2024 End: 09-19-2024 take 1 tablet by mouth in the morning citalopram (CeleXA) 20 mg tablet Take 1 tablet (20 mg total) by mouth in the morning. 04/26/2024 Active take 1 tablet by mouth once eboni y citalopram (CeleXA) 10 MG tablet Take 10 mg by mouth Daily Active dicyclomine hydrochloride 20 mg oral tablet (20 sources) Anticholinergic Start: 08-24-2023 take 1 tablet by mouth every six hours dicyclomine (Bentyl) 20 MG tablet Take 20 mg by mouth every 6 (six) hours 08/24/2023 Active ferrous gluconate 324 mg oral tablet (20 sources) Start: 08-07-2024 take 1 tablet by mouth at mealtime ferrous gluconate (Fergon) 324 (38 Fe) MG tablet Take 324 mg by mouth in the morning. Take with meals. 08/07/2024 Active hydrOXYzine hydrochloride 10 mg oral tablet (1 source) Antihistamine Start: 01-24-2025 take 1 tablet by mouth three times daily as needed for anxiety hydrOXYzine (ATARAX) 10 mg tablet Take 1 tablet (10 mg total) by mouth 3 (three) times a day as needed for anxiety. 01/24/2025 Active levothyroxine sodium 0.2 mg oral tablet (20 sources) l-Thyroxine Start: 09-11-2024 End: 09-06-2025 take 1 tablet by mouth once daily levothyroxine (Synthroid, Levoxyl) 200 MCG tablet Indications: Postoperative hypothyroidism Take 1 tablet (200 mcg) by mouth Daily 90 tablet 3 09/11/2024 09/06/2025 Active Start: 09-11-2024 End: 09-06-2025 take 1 tablet by mouth once daily levothyroxine (Synthroid, Levoxyl) 50 MCG tablet Indications: Postoperative hypothyroidism Take 1 tablet (50 mcg) by mouth [...] mouth in the morning. 05/18/2024 Discontinued (Ineffective) LORazepam 0.5 mg oral tablet (6 sources) Benzodiazepine Start: 02-12-2025 take 1 tablet by mouth in the morning, then take 1 tablet by mouth at bedtime LORazepam (ATIVAN) 0.5 mg tablet Take 1 tablet (0.5 mg total) by mouth in the morning and 1 tablet (0.5 mg total) before bedtime. 02/12/2025 Active meclizine hydrochloride 25 mg oral tablet (13 sources) Antiemetic Start: 09-14-2024 meclizine (Antivert) 25 MG tablet Take 25 mg by mouth as needed in the morning and 25 mg as needed at noon and 25 mg as needed in the evening for dizziness. 09/14/2024 Active meloxicam 7.5 mg oral tablet (19 sources) Nonsteroidal Anti-inflammatory Drug Start: 06-07-2024 take 1 tablet by mouth in the morning meloxicam (MOBIC) 7.5 mg tablet Take 1 tablet (7.5 mg total) by mouth in the morning. 06/07/2024 Active mirtazapine 30 mg oral tablet (19 sources) Start: 06-28-2024 take 1 tablet by [...] Problem Classification Problem Date Documented Date Episodic/Chronic Abdominal pain (1 source) Pain in pelvis; Translations: [Pelvic and perineal pain] 05-29-2025 Episodic Administrative/social admission (5 sources) Patient encounter status; Translations: [Dietary counseling and surveillance] 09-11-2024 Episodic Anxiety disorders (2 sources) Anxiety disorder, unspecified; Translations: [ANXIETY DISORDER UNSPECIFIED] Onset: 09-02-2020 Chronic Cancer of thyroid (12 sources) Malignant tumor of thyroid gland; Translations: [Malignant neoplasm of thyroid gland] 09-11-2024 Chronic Complications of surgical procedures or medical care (9 sources) Postoperative hypothyroidism; Translations: [Postprocedural hypothyroidism] 09-11-2024 Chronic Conditions associated with dizziness or vertigo (4 sources) Dizziness and giddiness; Translations: [DIZZINESS AND GIDDINESS] Onset: 08-28-2020 Episodic Deficiency and other anemia (2 sources) Iron deficiency anemia; Translations: [Iron deficiency anemia, unspecified] 09-19-2024 Episodic Disorders of lipid metabolism (1 source) Hyperlipidemia, unspecified; Translations: [Hyperlipidemia, unspecified] Onset: 06-19-2024 Chronic Essential hypertension (2 sources) Essential (primary) hypertension; Translations: [Essential (primary) hypertension] Onset: 06-19-2024 Chronic Menstrual disorders (2 sources) Menorrhagia; Translations: [Excessive and frequent menstruation with regular cycle] 05-29-2025 Chronic Nutritional deficiencies (4 sources) Vitamin D deficiency; Translations: [Vitamin D deficiency, unspecified] 09-11-2024 Chronic Osteoarthritis (12 sources) Osteoarthritis of left knee joint; Translations: [Unilateral primary osteoarthritis, left knee] Onset: 11-03-2022 11-03-2022 Chronic Other connective tissue disease (1 source) Arthrodesis status; Translations: [ARTHRODESIS STATUS] Onset: 09-02-2020 Episodic Other female genital disorders (4 sources) Abnormal uterine bleeding; Translations: [Other specified abnormal uterine and vaginal bleeding] 09-19-2024 Chronic Other female genital disorders (1 source) Pain in female genitalia on intercourse; Translations: [Unspecified dyspareunia] 05-29-2025 Chronic Other hereditary and degenerative nervous system conditions (1 source) Drug induced akathisia; Translations: [Drug induced akathisia] Onset: 05-15-2025 Chronic Other lower respiratory disease (1 source) Shortness of breath; Translations: [SHORTNESS OF BREATH] Onset: 09-02-2020 Episodic Other nervous system disorders (2 sources) Acute postoperative pain; Translations: [Other acute postoperative pain] Episodic Other nutritional; endocrine; and metabolic disorders (12 sources) Body mass index 40+ - severely obese; Translations: [Body mass index (BMI) 40.0-44.9, adult] Onset: 12-04-2020 12-04-2020 Chronic Other nutritional; endocrine; and metabolic disorders (4 sources) Severe obesity; Translations: [Class 3 severe obesity due to excess calories without serious comorbidity with body mass index (BMI) of 40.0 to 44.9 in adult ([facility])] 09-11-2024 Chronic Other nutritional; endocrine; and metabolic disorders (2 sources) Obesity, unspecified; Translations: [Obesity, unspecified] Onset: 06-19-2024 Chronic Pulmonary heart disease (1 source) Personal history of pulmonary embolism; Translations: [PERSONAL HISTORY PULMONARY EMBOLISM] Onset: 09-02-2020 Episodic Residual codes; unclassified (1 source) Insomnia, unspecified; Translations: [Insomnia, unspecified] Onset: 05-15-2025 Episodic Rheumatoid arthritis and related disease (1 source) Rheumatoid arthritis, unspecified; Translations: [Rheumatoid arthritis, unspecified] Onset: 05-15-2025 Chronic Spondylosis; intervertebral disc disorders; other back [...] Classification Problem Date Documented Da te Episodic/Chronic Deficiency and other anemia (1 source) Iron deficiency anemia, unspecified; Translations: [Iron deficiency anemia, unspecified] Onset: 08-01-2024 Episodic Joint disorders and dislocations; trauma-related (12 sources) Acute tear of meniscus of left knee; Translations: [Unspecified tear of unspecified meniscus, current injury, left knee, initial encounter] Onset: 11-03-2022 11-03-2022 Episodic Mood disorders (12 sources) Mood disorders Onset: 12-25-2020 12-25-2020 Other lower respiratory disease (1 source) Unspecified acute lower respiratory infection; Translations: [Unspecified acute lower respiratory infection] Onset: 08-14-2024 Episodic Other non-traumatic joint disorders (11 sources) Hip pain; Translations: [Pain in right hip] Onset: 07-18-2018 07-18-2018 Episodic Other non-traumatic joint disorders (1 source) Pain in right hip joint; Translations: [Pain in right hip] Onset: 07-18-2018 07-18-2018 Episodic Other non-traumatic joint disorders (1 source) Knee pain Onset: 10-26-2024 Episodic Unclassified (1 source) Cough R05.9 Onset: 08-16-2021 Resolved: 08-16-2021 Viral infection (1 source) COVID-19 Onset: 08-16-2021 Resolved: 08-16-2021 Results Test Name Value Interpretation Reference Range Facility Outside Recordson 04-09-2025 Outside Records [id number]#1.00OTGTI [facility] Outside Recordson 03-05-2025 Outside Records [id number]#1.00OTGTIFF [facility] Pathology Sendout Teston Pathology Send Out. See Report [facility] Comment on above: Order Comment: SIGMO ID COLON POLYPFAMILY HX COLON CANCER, ANEMIA Performed By: #### [id number] ####[facility] (DEFAULT)[address] [place] [address] Pathology Send Out. See Report [facility] Comment on above: Order Comment: VOLODYMYRE NDING COLON POLYPFAMILY HX COLON CANCER, ANEMIA Performed By: #### 2 [id number] ####[facility] (DEFAULT)[address] [place] [address] Outside [facility] 11-14-2024 Outside Records [id number]#1.00OTGTI [facility] Pathology study report docum entOrdered By: Dunia Beaulieu on 11-13-2024 Pathology study [facility] Other Claudio 11-10-2024 L ------ Specimen: [id number] Received: 11/10/24 Status: WALDO Madsen Num: [id number] Spec Type: Surgical Subm Dr: Jorge Aguilar Tissues: A Endometrial Polyp (ENDOMETRIAL POLYP) Procedures: HE/2, Gross/Micro L4 Age/ Patient Sex Location Account Attending Physician Lauro Pinto 49/F LABELL [id number] Jorge Aguilar SPEC NUM: [id number] RECD: 11/10/24 STATUS: WALDO MADSEN NUM: [id number] MIGUELITO: 11/10/24 [facility] DR: Jorge Aguilar ENTERED: 11/10/24 [facility] DR: Leighton Cristina SPEC TYPE: Surgical DEPT: JORGE KULKARNI ORDERED: HE/2, Gross/Micro L4 ORDERED: HE/2, Gross/Micro L4 Pathological Diagnosis Endometrial polyp, polypectomy: -1 large benign endometrial polyp with mildly associated simple cystic hyperplasia without atypia Clinical Information Menorrhagia, abnormal uterine bleeding, pelvic pain Gross Description Part A is received in formalin labeled with the patients name, date of , and endometrial polyp is a duarte-pink, delicate 2 x 1.1 x 0.6 cm polypoid structure. The specimen is inked black at the apparent point of attachment, longitudinally bisected, and entirely submitted in a single cassette. (1, matthew, [id number] A) Microscopic Description Microscopic examinations are performed supporting the above interpretation Specimen: [id number] Received: 11/10/24 Status: WALDO Madsen Num: [id number] Spec Type: Surgical Subm Dr: Jorge Aguilar Tissues: A Endometrial Polyp (ENDOMETRIAL POLYP) Procedures: HE/2, Gross/Micro L4 Patient: Lauro Pinto [id number] (Continued) Specimen: [id number] Received: 11/10/24 (Continued) Signed (signature on file) Dunia Beaulieu MD 11/13/24 1608 Specimen: [id number] Received: 11/10/24 Status: WALDO Madsen Num: [id number] Spec Type: Surgical Subm Dr: Jorge Aguilar Tissues: A Endometrial Polyp (ENDOMETRIAL POLYP) Procedures: /, Herson/Va L4 Patient: Lauro Pinto [id number] (Continued) Specimen: [id number] Received: 11/10/24 (Continued) CPT Codes 96146 Specimen: [id number] Received: 11/10/24 Status: WALDO Madsen Num: [id number] Spec Type: Surgical Subm Dr: Jorge Aguilra Tissues: A Endometrial Polyp (ENDOMETRIAL POLYP) Procedures: JADA/Herson Yusuf/Va L4 Patient: Lauro Pinto [id number] (Continued) Signed (signature on file) Dunia Beaulieu MD 11/13/24 1608 Normal [facility] ECG 12-LEADon 11-05-2024 [place] [address] Electrocardiograph Report Signed Patient: LAURO PINTO MR#: [id number] : 1975 Acct:[id number] Age/Sex: 49 / F ADM Date: 11/03/24 Loc: [facility] Attending Dr: Jorge Aguilar D.O. Ordering Physician: Jorge Aguilar D.O. 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 Signed By: 11/05/24 0808 DD/ 1358 TD/TT: Cad Detailer: [employer] Rad[facility], Radiologduarte pascal MD - 11/05/2024 [place] [address] Electrocardiograph Report Signed Patient: LAURO PINTO MR#: [id number] : 1975 Acct:[id number] Age/Sex: 49 / F ADM Date: 11/03/24 Loc: PST Attending Dr: Jorge Aguilar D.O. Ordering Physician: Jorge Aguilar D.O. 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 Signed By: 11/05/24 0808 DD/ 1358 TD/TT: Cad Detailer: [facility] ECG 12-LEADOrdered By: Radio logist Radiology on 11-05-2024 [facility] Work Phone: ECG 12-LEADon 11-03-2024 Radiology Study observation (narrative) [facility] HCG ( test) Ql (U)o n 11-01-2024 Interpretation and review of laboratory results Normal [facility] Preg Test, Ur Negative Negative [facility] Claudio 11-01-2024 L ------ Specimen: [id number] Received: 11/02/24 Status: WALDO Cale Num: [id number] Spec Type: Surgical Subm Dr: Jorge Aguilar Tissues: A Endometrium - Biopsy (ENDOMETRIAL BX) Procedures: HE/2, Herson/Va L4 Age/ Patient Sex Location Account Attending Physician Lauro Pinto 49/F LABELL [id number] Jorge Aguilar SPEC NUM: [id number] RECD: 11/02/24 STATUS: WALDO MADSEN NUM: [id number] MIGUELITO: 11/01/24- SUBM DR: Jorge Aguilar ENTERED: 11/02/24 [facility] DR: SPEC TYPE: Surgical DEPT: S ENTERED BY: [id number] RECV BY: [id number] ORDERED: HE/2, Gross/Micro L4 ORDERED: HE/2, Gross/Micro [...] submitted in a single cassette. (1, ns, [id number] A) Microscopic Description Sections examined support the above rendered diagnosis. Specimen: [id number] Received: 11/02/24 Status: WALDO Cale Num: [id number] Spec Type: Surgical Subm Dr: Jorge Aguilar Tissues: A Endometrium - Biopsy (ENDOMETRIAL BX) Procedures: Rosa Elena HURT L4 Patient: Lauro Pinto [id number] (Continued) Signed (signature on file) India Reyes MD 11/03/24 0838 [facility] L ------ Specimen: [id number] Received: 11/02/24 Status: WALDO Madsen Num: [id number] Spec Type: Surgical Subm : Jorge Aguilar Tissues: A Endometrium - Biopsy (ENDOMETRIAL BIOPSY) Procedures: Rosa Elena HURT L4 Age/ Patient Sex Location Account Attending Physician Lauro Pinto 49/F LABELL [id number] Jorge Aguilar SPEC NUM: [id number] RECD: 11/02/24 STATUS: WALDO CALE NUM: [id number] MIGUELITO: 11/01/24-[address]: Jorge Aguilar ENTERED: 11/07/24 [facility] : NEAL TYPE: Surgical DEPT: JORGE KULKARNI ENTERED BY: [id number] RECV BY: [id number] ORDERED: HE/2, Gross/Micro L4 ORDERED: HE/2, Gross/Micro [...] staff Clinical Information Dysfunctional uterine bleeding Specimen: [id number] Received: 11/02/24 Status: WALDO Madsen Num: [id number] Spec Type: Surgical Subm Dr: Jorge Aguilar Tissues: A Endometrium - Biopsy (ENDOMETRIAL BIOPSY) Procedures: Herson HURT/Va L4 Patient: Lauro Pinto [id number] (Continued) Specimen: [id number] Received: 11/02/24 (Continued) Signed (signature on file) Dunia Beaulieu MD 11/07/24 1928 Specimen: [id number] Received: 11/02/24 Status: WALDO Madsen Num: [id number] Spec Type: Surgical Subm Dr: Jorge Aguilar Tissues: A Endometrium - Biopsy (ENDOMETRIAL BIOPSY) Procedures: HE/2, Gross/Micro L4 Patient: Lauro Pinto [id number] (Continued) Specimen: [id number] Received: 11/02/24-1350 (Continued) Gross Description Part A is received in formalin labeled with the patients name, date of , and EMBx is a pale perez mucoid material, admixed with feathery duarte-pink tissue fragments, 0.8 x 0.3 x 0.1 cm in aggregate. The specimen is filtered and entirely submitted in a single cassette. (1, ns, [id number] A) Microscopic Description Sections examined support the above rendered diagnosis. CPT Codes 86121 Specimen: [id number] Received: 11/02/24135 Status: WALDO Madsen Num: [id number] Spec Type: Surgical Subm Dr: Jorge Aguilar Tissues: A Endometrium - Biopsy (ENDOMETRIAL BIOPSY) Procedures: HE/2, Gross/Micro L4 Patient: BlairLauro [id number] (Continued) Signed (signature on file) Dunia Beaulieu MD 11/07/241927 Normal [facility] Outside [facility] 10-31-2024 Outside Records [id number]#1.00OTGTIFF [facility] Rad - Other Radiology Report on 08-15-2024 Rad - Other Radiology Report [id number]#1.00OTGTIFF [facility] XR CHEST 2 VWSon 08-14-2024 XR CHEST 2 VWS XR CHEST 2 VWS XR CHEST 2 VWS INDICATION: Chest cold. FINDINGS: The cardiac silhouette is normal in size. The trachea is midline. No focal pulmonary consolidation. No pleural effusion. No pneumothorax. IMPRESSION: Normal chest x-ray. Finalized by Modesto Montalvo MD on 08/14/2024 4:[address] [facility] Coding Summaryon 08-02-2024 Coding Summary HTMLBase 64 QnffnbdaHZp5hQt+PGhlYWQ+PE 8YAXRvY01lfAHwwR0yT2GPWNrV EbqaYMUDLExQBkOtabKeFV1etS NjZXJu IC8+LC2kZTFqAzeflQHoo5H0xX C0F68vtc3lXXixuCJ6OUUlBrTe gawyo7gpkCh7ZZhyJxbaYuEf HOSqpX05FGR4iE09Ut97cQLhoA Fja6nduQs4EmAfWVExNIV1dJbx KAggj6FoREOvO45ucLZad6B0 HOOwaFvhlLJjFgNmkJL7nZ8bRU ialgevn9lbvfctGdq2it85vXKu r8K9mBC4K3TzgsL4UPHxsGSt VmwvxKYSzJ6sydtju6xaqjhjWo VmMAMtYNb0CZx1KCBkgDvqRqBe PL06YDJ2TBQeqyOwL6BaGJTy qUgbQsT8u6J2Sb7ZH1YRUgjiR4 VNTUFSWTwvdGQ+DQ42ws94R8Zf VseeNta9XFLlUKB1hEC7pY7o VBKhTSgkt3B1bSN1U4MfiwUcbc 4tg7baONQdAPxuY68ouXCgw3A6 PZRshNM2KVXssKdaCzOvgE41 Oyc+FBPlyZdjm9EiGxmxm0omz0 inlSg3KzraTVVnnzQtuTdtDOT2 o7FtMr8eNQJjlRN2kSW6mO3q TiVwSqH7NAsjV814ObWapDXoRs vmX12sJ6EgvLY+IXBeLsj7JWPe yQefXP3bN2ViFZIkqlponXHh hGpqEK4oNAJnjhzlKHDjdL9qVN KmK9r8DzXqKsB0HGtrK6MnTBNz ygruBr07fZ5xFqPpYgO2JUuz J7CfgpH6TJKbvDKrFOliXDN4M9 5vq5Y5EUOyPLCtDQP4vIX8xP7y bGlnbjogbGVmdDsgdmVydGlj XPwzGKcfH887IDRsqLarBhQqMJ luZyBEYXRlOiAgMTEvMjcvMjAy NDwvdGQ+MWBwXGH6wIwgILIv wTWdXZcyLz6weDzasYfhED9qLH JkirmkJJLsfC0bHXOqsHQguYta OE3nBVRrpnnbq118BkPsZPY1 ASIizKPtC1BizB5iIeGdYJQqWM OrQ6FzeTLgBColD938MHwtGbB4 NZUdmaSnK4WzWMFhnExjJcL9 i6A3Gb5Mu6IxhyzsM4MhxUUtFp AoLmrsWCs0R2VsRmpcgAP+PC90 KRXdAA43QPj0XMC5mBfePXsh VQSuG1YvcY9eLeXyFONbKXNvGl c+PHRhYmxlIHdpZHRoPScxMDAl ZpZvcUcaDH3eYm2rADBfFLGp zFbzlENiHgHaj1poOPTkTBffAY 8hqSouB4EbbGP7UPSyv6c9Pg33 Q24oD1NpfGZ+DQWinZG7uYE2 jK5iBhBdGaM6UAmoF221XsNveT SzGlwnm6kse5xeiEl9VhR7LQBw ggLcwRedBEF3p5KqNe93R02h IHdpZHRoPSIxNSUiIHZhbGlnbj 9pdL4iNg4+DSPwhOC3tHG3hM7h MjXlCxK4ZAecL832QtWkcMIc Eoszu2rnm2cmgZw1MoDwKQTexd DydCsoPBC9g6KrXj90T9MenHss e5OfNwu7xc12aEZnb9N4pON9 X5OfUGRinoxtbWMffMnwMP0eTT RfcgtaGNIcnB4xQTHpV4j0OwIl MuL1STziU3FalgJ0QATqnRWv PQYukQPHiP8zdjpxp3drutaaAd JlEVZsYPf3LIt7GMTzyKzjDxMj QFE9KxP9LOE6xWLflY8utBwv smzlcJ5kWzx+VIY1iTAbrYJDKY 1lOjwvdGQ+CYTpLKZ4pQpyXMnv BYTruX8oIXHmA0z0FoSqBpY6 XZdaW7GjmyB9FYHjlRDmJHXzaS IYgP9ahjvln3vsohonQdBiMOMb WJp0MWv8DZOlmBkrZuOvUWX3 CoS8USR7mHClyH1nvBhhnfayrU 9wOyc+UgeobLauLPJ3ASi8J4Rw Xyz2PPRrdEafNO1afEKuJHmn Fw0saKdjqOspVF1oFREextgsa6 87GeVpw3wqJZJgvKVkFYbxZOA8 E38yq5H2CUJiGBEmXCV8cNF3 kY2xaBguvrjgiYXnhZzqbvLjuN cvZKxqBEtpW871RDIpuAjnJbLs SEq0Y6XrNwb9NEYxjLykHZ5g gDDyCJypVk7mjYwamIljOC6vTA Dvlnjpr953RpZds0owMVBbkDXm LPtcPSO1B73hf2F7NISqBWMh JGZ0wYN9zF5bwKngzbieiARsqK ypeyTvcIcrVYqkXPnpX569EQIr fCzkYsRqiHs5R8WjNsu3SYRt mQvtKZ9mdYWpYAjwTw5rbNcebR qsUM4fWEPvaguoo050BhAfg1wl BSJxlDBrXQooMGQ9Q02mv4C6 SVRtCNCyQNV4zMJ4kK0wfYpcop ogbGVmdDsgdmVydGljYWwtYWxp J061XPWqxHzaTtLyvUcakbXd OUjnHKw4Y6AhMphxjDH+PC90YW FyDQ99cHQtjEIxv4uhjNw3KjLa OMPtZWX0iDqcXXyek2SsFCHl U69waMUuu0K6YUZagJbvzCPqFk HveZD9lQ0gTHwdzzciw3pkeqst Guthi1gdrx15rP85P24xYYlh ZHIcMTDaIGSyCWBkvDwast7beM 9wIi8+TOHosQC6gAU2mJ8cNKVe DkU2TUllG110MeLjoKSiBxsf a4esy5fquFt1MpH9VJEoquNciX xdMJJ8e2YlNr09N94tLYiyRNAm BDWvCOJtPATzzVlazn6biY4m Ii8+QHEdrXG3gSD4rU1rJyXtRk Q2PUnlT570AoKsiPYtKrstO58q G0BeuDC+WLFvGlp5WZSjtYtv MA9kuDJjASfaMg4pPGL8VeEkGw ImXLxrV1EbTVXmuasfbpvlbBV6 OXKfGAOodS15Wb0ugIwkGIMl eRMRvY2bssooa6gdosrvVpMkHZ JmJUn2ALx6PGOumSdwQfPmICS3 DsL1MKW9zJBgsC9zaUygexvx eP7tX5DqFZDzjwjwUj55cW6eDg XrGoH8PDrzOaf+TUFSVElOLCBN OBORIYkDCIYHLS04PK48xPMu s3N8zOF9K2QdAGWtcefcxpxzpM D2ZDYuEYHmeX69gXYiIBnwPo9x b5U2d313AYZqHFGrnD55Kq9f bTnqOKGcyQJPvG3liskgo9hljn ipFxHfPEJeCTs5MAp0TODytSig RcRbPNV5KvT7AAX9vHCgpU5f qJsqgnrzpE3nLvk+MDUvMjEvMT b3ZhnxzVX+JHGsNNS4nOwoYNrw SXLmqP1rPZMeE9g1YsIiOhX8 DDpgM7CoWKZtbwkkGm49aW8xPb MgLhE7OSplH3NabzK3KBPykHQt KUrdRGS4H58eu9Z7UZCvCFBq YON1kEZ3lQ5wgErsechidLHijJ othzUxtUkxQChlRPqcQ931BQBm fAdnSzV0UWjiUQZxBX78VY84 tXVah8X4eLB3M5WuDWQzohccin jeeJZ3VSEjCGIgtE21mHEvOXqu Dt7gk1S1x752KYOfYEWdxG30 Sg2eiGbjLIIagKRXqT1cchebi2 tfuiuuPlRdQULmDIg5SKk4BFYt zHrwKmNzYPB3YdM2XRY2kEEj oH7ivQshzraghG4gHpz+RkVNQU zIYH11DJ57iQEnw0A1zUW0W3Bb QXHmsmkdawwjjXU2CDUpFAOu jY44wDJkLClgCj3io2C0e146ED VnYGQmiF82Op9wbVqvEJLvfMIP bY2oiaedc2rrsympAhTjFGDj HBh8UTq5JBYmkRfdYnFtIRN8Lh V6CWX2fFPicF5jmJljzhthhM4c Oyc+IVL2UJD4suecjqe6G6Ua PjwvdHI+LX66FVOqKU38dNLosK Dvd2rhcKd6XvSmCKZnQII1wMxr KVbfw5RvSYZzV33avUWjd1W7 ZMJakWxdiPZvPgVhgSX6bX4nNK bligcbl2ghfcfsNzjtx6ymli02 tJ24H39jLFggEQAjRDMcAVXf MPSxxKwlxx0iiL1yFe1+PGNvbC G6fYI7iO6aBaDbRtW4IWgcE143 PfTojBIqVhdio6pkb2lqhPh6 XcYyXFGnmqElbCwkPDV7r4OaTk 74I57tUSnbFTNpYCWjLSJfRPXo xVotkt8hqH5aGc2+SH9yg0ih pj60kI59nFU+QDEbFEN2uVlcKK gqVULwdS0sCAvjNvW1OMLcEdSk wA48mLPkGHtaXc4huQkyjVfk DM9yFAStvhqcc084MwXke2hrOT BegMGpBMwmZYK1J33nk1P9MTEc NZQsGYP3mHU4oE7umVxuhesk bGVmdDsgdmVydGljYWwtYWxpZ2 76RHQwhZthZuQcrNKfN8npefKZ LC7zAobyjTL+EIDoQAY4uRnn LWgaEMGqnG5wRENaR7x6ZtYtFy W6SXdsW3UdrzH0UEKefDZuWAWl cBYBjD4pfyfwt3lvdetcIiNd PCLdWWu8ZKg5OGLmoXkmGvPrMI F9EtZ2NEZ3oAHdyP5etXnjcqfb kK9dRmy+RklOOjwvdGQ+PHRk DWS9tMhlIZvvUSAxeD2dRUWrV8 v6TiYpFtT6VTpeC2HbhmF5MIZg hCEnAWOxaORVyU1khogmp1wh zduoZdXuZVOgHAr7QGh6CAUugZ paDiYcSLB7LdJ7UQE4aEAgjT8p aMnmuooydJ6bLik+TVJOOjwv dGQ+CWLaSXX8pNofUOpnQGDuaU 1bNGDzT6l9MvAdMmL3AWqlK8Mk vfO4UXZxzAMrMYLxvIXRuJ9q rvdir3sbmbeeRlZsZYBcZTl1WF t4ZVDmwInpCuVlTIE4XzP2USE1 rSUjiM0leHinxcqmvP4aEks+ YLS7NRX0YP49ZQ01C2RxAmnbnO FibGU+PHRhYmxlIHdpZHRoPScx HTKkYmOwjZseVB1rIb3kWIKn LWN (more content not included)... Normal [facility] CBC AND AUTO DIFFon 08-01-20 ABSOLUTE BASOPHIL 0.1 X10E9/L Normal 0.0-0.2 [facility] Comment on above: Performed By: #### C BCA #### [facility] ([id number]) [address], [address] [place] [address] ABSOLUTE NEUTROPHIL 5.2 X10E9/L Normal 1.5-6.6 [facility] Comment on above: Performed By: #### C BCA #### [facility] ([id number]) [address], [address] [place] [address] Basophils/100 WBC (Bld) 0.9 % Normal [facility] Comment on above: Performed By: #### C BCA #### [facility] ([id number]) [address], [address] [place] [address] Eosinophils (Bld) [#/Vol] 0.1 10*3/uL Normal 0.0-0.4 [facility] Comment on above: Performed By: #### C BCA #### [facility] ([id number]) [address], [address] [place] [address] Eosinophils/100 WBC (Bld) 1.1 % Normal [facility] Comment on above: Performed By: #### C BCA #### [facility] ([id number]) [address], [address] [place] [address] Erythrocyte distribution width (RBC) [Ratio] 16.9 % High 11.5-15.0 [facility] Comment on above: Performed By: #### C BCA #### [facility] ([id number]) [address], [address] [place] [address] Hematocrit (Bld) [Volume fraction] 28.5 % Low 35-47 [facility] Comment on above: Performed By: #### C BCA #### [facility] ([id number]) [address], [address] [place] [address] Hemoglobin (Bld) [Mass/Vol] 8.6 g/dL Low 11.7-15.5 [facility] Comment on above: Performed By: #### C BCA #### [facility] ([id number]) [address], [address] [place] [address] Lymphocytes (Bld) [#/Vol] 2.0 10*3/uL Normal 1.0-3.5 [facility] Comment on above: Performed By: #### C BCA #### [facility] ([id number]) [address], [address] [place] [address] Lymphocytes/100 WBC (Bld) 25.7 % Normal [facility] Comment on above: Performed By: #### C BCA #### [facility] ([id number]) [address], [address] [place] [address] MCH (RBC) [Entitic mass] 22.1 pg Low 27-34 [facility] Comment on above: Performed By: #### C BCA #### [facility] ([id number]) [address], [address] [place] [address] MCHC (RBC) [Mass/Vol] 30.3 g/dL Low 32-36 [facility] Comment on above: Performed By: #### C BCA #### [facility] ([id number]) [address], [address] [place] [address] MCV (RBC) [Entitic vol] 73 fL Low 80-100 [facility] Comment on above: Performed By: #### C BCA #### [facility] ([id number]) [address], [address] [place] [address] Monocytes (Bld) [#/Vol] 0.4 10*3/uL Normal 0-0.9 [facility] Comment on above: Performed By: #### C BCA #### [facility] ([id number]) [address], [address] [place] [address] Monocytes/100 WBC (Bld) 4.6 % Normal [facility] Comment on above: Performed By: #### C BCA #### [facility] ([id number]) [address], [address] [place] [address] Neutrophils/100 WBC (Bld) 67.7 % Normal [facility] Comment on above: Performed By: #### C BCA #### [facility] ([id number]) [address], [address] [place] [address] Platelet mean volume (Bld) [Entitic vol] 8.8 fL Normal 7-12 [facility] Comment on above: Performed By: #### C BCA #### [facility] ([id number]) [address], [address] [place] [address] Platelets (Bld) [#/Vol] 257 10*3/uL Normal 150-450 [facility] Comment on above: Performed By: #### C BCA #### [facility] ([id number]) [address], [address] [place] [address] RBC COUNT 3.91 X10E12/L Normal 3.80-5.20 [facility] Comment on above: Performed By: #### C BCA #### [facility] ([id number]) [address], [address] [place] [address] WBC (Bld) [#/Vol] 7.7 10*3/uL Normal 4.0-11.0 [facility] Comment on above: Performed By: #### C BCA #### [facility] ([id number]) [address] [place] [address] Lab - AP Resultson Lab - AP Results [id number]#1.[facility] Consent [facility] 07-26-2024 Consent Forms [id number]#1.00[facility] Provider Orderson 07-26-2024 Provider Orders [id number]#1.00[facility] Anesthesia Noteon 07-25-2024 Anesthesia Note Patient: DEBORAH PINTO Age: 49 years Sex: FEMALE : 1975 Associated Diagnoses: None Author: Chilo Abernathy MD Postoperative Information Post Operative Note Health Status Allergies: Allergic Reactions (All) No known allergies Problem list (past medical history): All Problems Anxiety / SNOMED CT 00010392 / Confirmed Arthritis / SNOMED CT 6184216 / Confirmed Asthma / SNOMED CT 072184077 / Confirmed Constipated / SNOMED CT 94446430 / Confirmed Depressed / SNOMED CT 47896574 / Confirmed Thyroid disease / SNOMED CT 21487674 / Confirmed GERD (gastroesophageal reflux disease) / SNOMED CT 570685999 / Confirmed HTN (hypertension) / SNOMED CT 9526421035 / Confirmed Hypothyroid / SNOMED CT 63680967 / Confirmed Insomnia / SNOMED CT 957128130 / Confirmed IBS (irritable bowel syndrome) / SNOMED CT 47380362 / Confirmed Microcytic anemia / SNOMED CT 678534635 / Confirmed Migraine / SNOMED CT 78671960 / Confirmed Rheumatoid arthritis / SNOMED CT 074312585 / Confirmed Physical Examination VS/Measurements Vital Signs (last 24 hrs) Last Charted Temp Temporal L 36.1 DegC (JUL 25 09:35) Heart Rate Monitored 77 bpm (JUL 25 10:06) Resp Rate 18 br/min (JUL 25 10:06) SBP H 132 mmHg (JUL 25 10:06) DBP H 83 mmHg (JUL 25 10:06) Weight 129.7 kg (JUL 25 06:36) Assessment Anesthetic outcome No anesthetic complications noted. Plan Transfer/ Discharge: To home, Patient can be discharged from PACU when criteria met. Condition good. [Electronically Signed on: 07/25/2024 13:53 EST] Chilo Abernathy MD [Verified on: 07/25/2024 13:53 EST] Chilo Abernathy MD [facility] Anesthesia Note Patient: DEBORAH PINTO Age: 49 [...] history): All Problems Anxiety / SNOMED CT 57490169 / Confirmed Arthritis / SNOMED CT 8128417 / Confirmed Asthma / SNOMED CT 469865616 / Confirmed Constipated / SNOMED CT 86446390 / Confirmed Depressed / SNOMED CT 37264590 / Confirmed Thyroid disease / SNOMED CT 62568943 / Confirmed GERD (gastroesophageal reflux disease) / SNOMED CT 915252034 / Confirmed HTN (hypertension) / SNOMED CT 0395830981 / Confirmed Hypothyroid / SNOMED CT 08189367 / Confirmed Insomnia / SNOMED CT 185717889 / Confirmed IBS (irritable bowel syndrome) / SNOMED CT 53005765 / Confirmed Microcytic anemia / SNOMED CT 822462730 / Confirmed Migraine / SNOMED CT 77245246 / Confirmed Rheumatoid arthritis / SNOMED CT 306558965 / Confirmed Histories Family History: Thyroid Sister Anxiety Mother Diabetes mellitus Mother Hypertension Father Mother Arthritis Mother CHF - Congestive heart failure Grandparent Migraine Sister Cancer Grandparent Crohn disease Grandparent Parkinsons disease Grandparent Procedure history: Thyroid (491108773). Knee (619341994). Foot (54245903). Tonsil (844802539). Appendectomy (086214959). Back (556718901). Social History Electronic Cigarette/Vaping Assessment Electronic Cigarette [...] Torie Hernadez 08/23/2023 Category: Dr Orlando Davila [facility] 08/23/2023 Category: Dr Kat Nagel Tobacco 08/23/2023 Smoking tobacco use: Never tobacco user Electronic Cigarette/Vaping 08/23/2023 Electronic Cigarette Use: Never . Physical Examination VS/Measurements Measurements from flowsheet : Measurements 07/25/2024 6:36 EST Height 186 cm Weight 129.7 kg Weight Dosing 129.700 kg Body Mass Index 37.49 kg/m2 , Vital Signs (last 24 hrs) Last Charted Temp Temporal 36.3 DegC (JUL 25:36) Heart Rate Monitored 87 bpm (JUL 25:36) Resp Rate 18 br/min (JUL 25) SBP H 138 mmHg (JUL 25:) DBP H 88 mmHg (JUL 25:) Weight 129.7 kg (JUL 25:) Review / Management Laboratory Results Plan [place] [employer]hesi[employer]#(ASA) physical status classification: Class III. Anesthetic Preoperative Plan Anesthesia: Monitored anesthesia care, non-triggering, vaporizors removed and machine flushed per protocol . Anesthetic plan, risks, benefits, and alternatives discussed with the patient and/or family. Patient verbalized understanding. [Electronically Signed on: 07/25/2024 09:17 EST] Chilo Abernathy MD [Verified on: 07/25/2024 09:17 EST] Chilo Abernathy MD [facility] Inpatient Patient Summaryon 07-25-2024 Inpatient [place] [address] Patient Discharge Instructions Name: LAURO PINTO : 1975 Patient Address: [address] [place] [address] Primary Care Provider: Name: TONEY MONTOYA DO After you are discharged if you find you have any questions, please, call [phone] ext [phone] to speak to a nurse. Discharge Diagnosis: 1:Microcytic anemia Prescription Information: If you have been given a prescription for narcotics, seek immediate medical attention if you have any difficulty breathing or any sudden status changes such as confusion and sleepiness. If you or anyone you know is experiencing suicidal thoughts, mental health, alcohol and/or drug addiction problems; contact the [facility] 29/03 Crisis Hotline -Text 7GGNZ sr 470047. If you received any narcotics, sedation, or [...] business decisions or sign any legal documents [facility] would like to thank you for allowing us to assist you with your healthcare needs. The following includes patient education materials and information regarding your injury/illness. LAURO PINTO has been given the following list of follow-up instructions, prescriptions, and patient education materials: Follow-up Instructions With: Address: When: Korey Ford [address] [place] [address], [place] [address] Business (1) , only if needed With: Address: When: [facility] Medications During the course of your visit, [...] After the procedure, (more content not included)... [facility] 07-25-2024 L ------ Specimen: [id number] Received: 07/25/24 Status: WALDO Cale Num: [id number] Spec Type: Surgical Subm Dr: Korey Ford MD Tissues: A Colon Biopsy (DESCENDING COLON POLYP) B Colon Biopsy (SIGMOID COLON POLYP) Procedures: HE/4, Gross/Micro L4/2 Age/ Patient Sex Location Account Attending Physician Lauro Pinto 49/F [facility] [id number] Korey Ford MD SPEC NUM: [id number] RECD: 07/25/24 STATUS: WALDO CALE NUM: [id number] MIGUELITO: 07/25/24 [facility] DR: Korey Ford MD ENTERED: 07/25/24 [facility] DR: LucindaLeighton SPEC TYPE: Surgical DEPT: MAG KULKARNI ENTERED BY: [id number] RECV BY: [id number] ORDERED: HE/4, Gross/Micro L4/2 ORDERED: HE/, Gross/Micro L4/2 Pathological Diagnosis A. Polyp, descending [...] submitted in a single cassette. (1, ns, [id number] A) JG Part B is received in formalin labeled with the patients name, date of , and sigmoid colon polyp is a duarte-perez, focally erythematous, friable, 0.4 cm polypoid fragment. The specimen is inked black at the apparent point of attachment, bisected, and entirely submitted in a single cassette. (1, ns, [id number] B) JG Specimen: [id number] Received: 07/25/24 Status: WALDO Cale Num: [id number] Spec Type: Surgical Subm Dr: Korey Ford MD Tissues: A Colon Biopsy (DESCENDING COLON POLYP) B Colon Biopsy (SIGMOID COLON POLYP) Procedures: HE/4, Gross/Micro L4/2 Patient: Lauro Pinto [id number] (Continued) Specimen: [id number] Received: 07/25/24 (Continued) Signed (signature on file) Brody Jordan MD 07/26/24 144 Specimen: [id number] Received: 07/25/24 Status: WALDO Madsen Num: [id number] Spec Type: Surgical Subm Dr: Korey Ford MD Tissues: A Colon Biopsy (DESCENDING COLON POLYP) B Colon Biopsy (SIGMOID COLON POLYP) Procedures: Herson SARAVIA/Va L4/2 Patient: Lauro Pinto [id number] (Continued) Specimen: [id number] Received: 07/25/24 (Continued) CPT Codes 48632c1 Specimen: [id number] Received: 07/25/24 Status: WALDO Madsen Num: [id number] Spec Type: Surgical Subm Dr: Korey Ford MD Tissues: A Colon Biopsy (DESCENDING COLON POLYP) B Colon Biopsy (SIGMOID COLON POLYP) Procedures: JADA/Alexx Gross/Micro L4/2 Patient: Lauro Pinto [id number] (Continued) Signed (signature on file) Brody Jordan MD 07/26/24 1445 Normal [facility]R Intraoperative Recordon 07-25-2024 MAGR Intraoperative Record MAGR Intra-Op Record Summary Primary Physician: Korey Ford MD Finalized Date/Time: 07/25/24 12:59:58 Pt. Name: LAURO PINTO/Sex: 1975 FEMALE Med Rec #: [id number] Physician: Korey Ford MD Financial #: [id number] Pt. Type: D Room/Bed: / Admit/Disch: 07/25/24 [...] Role Performed Surgeon - Primary Anesthesiologist of Director Of Transportation Record Time In 07/25/24 09:01:00 07/25/24 09:01:00 07/25/24 09:01:00 Time Out 07/25/24 09:31:00 07/25/24 09:31:00 07/25/24 09:31:00 Procedure Esophagogastroduodenosco Esophagogastroduodenosco Esophagogastroduodenosco py and Colonosco py and Colonosco py and Colonosco Last Modified By: Isabel Martinez RN, Erica RN Baumer, Erica RN 07/25/24 09:37:34 07/25/24 09:37:34 07/25/24 09:37:34 Entry 4 Entry 5 Case Attendee Awilda Castillo Lauren M PRODUCT MANAGEMENT CONSULTANT PRODUCT MANAGEMENT CONSULTANT CSFA Role Performed Scrub Personnel Asp Net Developer Time In 07/25/24 09:01:00 07/25/24 09:01:00 Time [...] Abernathy MD, Isabel Martinez RN, Lianna Box PRODUCT MANAGEMENT CONSULTANT CSFA, Awilda Castillo CSFA PRODUCT MANAGEMENT CONSULTANT Last Modified By: Isabel Martinez RN 07/25/24 [...] Met (O.80 (more content not included)... [facility] Postoperative Record MAGR Phase II Record Summary Primary Physician: Korey Ford MD Finalized Date/Time: 07/25/24 10:30:12 Pt. Name: LAURO PINTO/Sex: 1975 FEMALE Med Rec #: [id number] Physician: Korey Ford MD Financial #: [id number] Pt. Type: D Room/Bed: / Admit/Disch: 07/25/24 [...] Signed By: Jumana Herbert RN 07/25/24 10:30 [facility] Preoperative Recordon 1 09-24-2023 [facility] Preoperative Record [facility] Pre-Op Record Summary Primary Physician: Korey Ford MD Finalized Date/Time: 07/25/24 09:05:27 Pt. Name: LAURO PINTO/Sex: 1975 FEMALE Med Rec #: [id number] Physician: Korey Ford MD Financial #: [id number] Pt. Type: D Room/Bed: / Admit/Disch: 07/25/24 06:22:59 - Institution: Pre-Op Case Times [facility] Pre-Care Text: Patient will be optimally prepared [...] By: Isabel Martinez RN 07/25/24 09:05 Normal [facility] Patient Handouton 07-25-2024 Patient Handout Radiology Upper [...] that are easy to digest. ? Take afww-tfj-gswsbae and prescription medicines only as told by [...] provider. Document Revised: 10/05/2023 Document Reviewed: 04/15/2022 [employer] Patient Education ? 2023 [employer]. Normal [facility] Test Urine 1on U Preg Negative [facility] Comment on above: Performed By: #### 3 [id number] ####[facility] (DEFAULT)[address] [place] [address] U Preg Internal Control Pass [facility] Comment on above: Performed By: #### 3 [id number] ####[facility] (DEFAULT)[address] [place] [address] Progress Note - Nurseon - Progress Note - Nurse Maxillofacial Pathology spoke with pt and pt stated that she has a family hx of malignant hyperthermia. Per pt her moms sister had an issue. Pt put policy writer sales on a 3 way call with pts mom. Per pts mom her sister had to be packed in ice and pts younger sister also had an issue. After speaking with pt and pts mom policy writer sales let Dr Abernathy know the above details. [Electronically Signed on: 07/24/2024 11:38 EST] Jumana Herbert RN [Verified on: 07/24/2024 11:38 EST] Jumana Herbert RN [facility] Outside Recordson 06-28-2024 Outside Records [id number]#1.00OTGTIF F [facility] Lab - Other Lab Resultson Lab - Other Lab Results [id number]#1.00OTGTIF F [facility] CBC AND AUTO DIFFon 06-22-20 24 ABSOLUTE BASOPHIL 0.0 X10E9/L Normal 0.0-0.2 [facility] Comment on above: Performed By: #### 2 4331-1, THYR, CBCA, CMP #### [facility] ([id number]) [address] [place] [address] ABSOLUTE NEUTROPHIL 5.6 X10E9/L Normal 1.5-6.6 [facility] Comment on above: Performed By: #### 2 4331-1, THYR, CBCA, CMP #### [facility] ([id number]) [address], [address] [place] [address] Basophils/100 WBC (Bld) 0.5 % Normal [facility] Comment on above: Performed By: #### 2 4331-1, THYR, CBCA, CMP #### [facility] ([id number]) [address] [address] [place] [address] Eosinophils (Bld) [#/Vol] 0.1 10*3/uL Normal 0.0-0.4 [facility] Comment on above: Performed By: #### 2 4331-1, THYR, CBCA, CMP #### [facility] ([id number]) [address] [address] [place] [address] Eosinophils/100 WBC (Bld) 0.9 % Normal [facility] Comment on above: Performed By: #### 2 4331-1, THYR, CBCA, CMP #### [facility] ([id number]) [address] [address] [place] [address] Erythrocyte distribution width (RBC) [Ratio] 16.8 % High 11.5-15.0 [facility] Comment on above: Performed By: #### 2 4331-1, THYR, CBCA, CMP #### [facility] ([id number]) [address] [address] [place] [address] Hematocrit (Bld) [Volume fraction] 28.9 % Low 35-47 [facility] Comment on above: Performed By: #### 2 4331-1, THYR, CBCA, CMP #### [facility] ([id number]) [address] [address] [place] [address] Hemoglobin (Bld) [Mass/Vol] 8.8 g/dL Low 11.7-15.5 [facility] Comment on above: Performed By: #### 2 4331-1, THYR, CBCA, CMP #### [facility] ([id number]) [address], [address] [place] [address] Lymphocytes (Bld) [#/Vol] 1.7 10*3/uL Normal 1.0-3.5 [facility] Comment on above: Performed By: #### 2 4331-1, THYR, CBCA, CMP #### [facility] ([id number]) [address] [address] [place] [address] Lymphocytes/100 WBC (Bld) 22.0 % Normal [facility] Comment on above: Performed By: #### 2 4331-1, THYR, CBCA, CMP #### [facility] ([id number]) [address] [facility] [address] [place] [address] MCH (RBC) [Entitic mass] 22.2 pg Low 27-34 [facility] Comment on above: Performed By: #### 2 4331-1, THYR, CBCA, CMP #### [facility] ([id number]) [address] [address] [place] [address] MCHC (RBC) [Mass/Vol] 30.4 g/dL Low 32-36 [facility] Comment on above: Performed By: #### 2 4331-1, THYR, CBCA, CMP #### [facility] ([id number]) [address] [address] [place] [address] MCV (RBC) [Entitic vol] 73 fL Low 80-100 [facility] Comment on above: Performed By: #### 2 4331-1, THYR, CBCA, CMP #### [facility] ([id number]) [address], [address] [place] [address] Monocytes (Bld) [#/Vol] 0.4 10*3/uL Normal 0-0.9 [facility] Comment on above: Performed By: #### 2 4331-1, THYR, CBCA, CMP #### [facility] ([id number]) [address], [address] [place] [address] Monocytes/100 WBC (Bld) 4.9 % Normal [facility] Comment on above: Performed By: #### 2 4331-1, THYR, CBCA, CMP #### [facility] ([id number]) [address], [facility] [address] [place] [address] Neutrophils/100 WBC (Bld) 71.7 % Normal [facility] Comment on above: Performed By: #### 2 4331-1, THYR, CBCA, CMP #### [facility] ([id number]) [address], [address] [place] [address] Platelet mean volume (Bld) [Entitic vol] 8.9 fL Normal 7-12 [facility] Comment on above: Performed By: #### 2 4331-1, THYR, CBCA, CMP #### [facility] ([id number]) [address], [address] [place] [address] Platelets (Bld) [#/Vol] 316 10*3/uL Normal 150-450 [facility] Comment on above: Performed By: #### 2 4331-1, THYR, CBCA, CMP #### [facility] ([id number]) [address], [address] [place] [address] RBC COUNT 3.96 X10E12/L Normal 3.80-5.20 [facility] Comment on above: Performed By: #### 2 4331-1, THYR, CBCA, CMP #### [facility] ([id number]) [address], [address] [place] [address] WBC (Bld) [#/Vol] 7.8 10*3/uL Normal 4.0-11.0 [facility] Comment on above: Performed By: #### 2 4331-1, THYR, CBCA, CMP #### [facility] ([id number]) [address], [address] [place] [address] COMPREHENSIVE METABOLIC PANE Claudio 06-22-2024 Albumin [Mass/Vol] 3.7 g/dL Normal 3.2-5.3 [facility] Comment on above: Performed By: #### 2 4331-1, THYR, CBCA, CMP #### [facility] ([id number]) [address], [address] [place] [address] ALP [Catalytic activity/Vol] 50 U/L Normal 39-130 [facility] Comment on above: Performed By: #### 2 4331-1, THYR, CBCA, CMP #### [facility] ([id number]) [address], [address] [place] [address] ALT [Catalytic activity/Vol] 4 U/L Normal 0-31 [facility] Comment on above: Performed By: #### 2 4331-1, THYR, CBCA, CMP #### [facility] ([id number]) [address], [address] [place] [address] Anion gap [Moles/Vol] 9 mmol/L Normal 5-15 [facility] Comment on above: Performed By: #### 2 4331-1, THYR, CBCA, CMP #### [facility] ([id number]) [address], [address] [place] [address] AST [Catalytic activity/Vol] 14 U/L Normal 0-41 [facility] Comment on above: Performed By: #### 2 4331-1, THYR, CBCA, CMP #### [facility] ([id number]) [address], [address] [place] [address] Bilirubin [Mass/Vol] 0.5 mg/dL Normal 0.3-1.2 [facility] Comment on above: Performed By: #### 2 4331-1, THYR, CBCA, CMP #### [facility] ([id number]) [address], [address] [place] [address] Calcium [Mass/Vol] 9.1 mg/dL Normal 8.5-10.5 [facility] Comment on above: Performed By: #### 2 4331-1, THYR, CBCA, CMP #### [facility] ([id number]) [address], [address] [place] [address] Chloride [Moles/Vol] 102 mmol/L Normal 98-109 [facility] Comment on above: Performed By: #### 2 4331-1, THYR, CBCA, CMP #### [facility] ([id number]) [address], [address] [place] [address] CO2 [Moles/Vol] 26 mmol/L Normal 22-32 [facility] Comment on above: Performed By: #### 2 4331-1, THYR, CBCA, CMP #### [facility] ([id number]) [address], [address] [place] [address] Creatinine [Mass/Vol] 0.81 mg/dL Normal 0.40-1.00 [facility] Comment on above: Result Comment: METH OD TRACEABLE TO IDMS STANDARD Performed By: #### 2 4331-1, THYR, CBCA, CMP #### [facility] ([id number]) [address], [address] [place] [address] GFR/1.73 sq M.predicted among non-blacks MDRD (S/P/Bld) [Vol rate/Area] 89 mL/min/{1.73_m2} Normal >59 [facility] Comment on above: Result Comment: Reported eGFR is based on the CKD-EPI 2020 equation that does not use a race coefficient. Performed By: #### 2 4331-1, THYR, CBCA, CMP #### [facility] ([id number]) [address], [address] [place] [address] Glucose [Mass/Vol] 84 mg/dL Normal 65-99 [facility] Comment on above: Performed By: #### 2 4331-1, THYR, CBCA, CMP #### [facility] ([id number]) [address], [address] [place] [address] Potassium [Moles/Vol] 4.3 mmol/L Normal 3.5-5.0 [facility] Comment on above: Performed By: #### 2 4331-1, THYR, CBCA, CMP #### [facility] ([id number]) [address], [address] [place] [address] Protein [Mass/Vol] 6.8 g/dL Normal 6.0-8.0 [facility] Comment on above: Performed By: #### 2 4331-1, THYR, CBCA, CMP #### [facility] ([id number]) [address], [address] [place] [address] Sodium [Moles/Vol] 137 mmol/L Normal 134-146 [facility] Comment on above: Performed By: #### 2 4331-1, THYR, CBCA, CMP #### [facility] ([id number]) [address], [address] [place] [address] Urea nitrogen [Mass/Vol] 11 mg/dL Normal 5-23 [facility] Comment on above: Performed By: #### 2 4331-1, THYR, CBCA, CMP #### [facility] ([id number]) [address], [address] [place] [address] Lipid 1996 panelon 4 Cholesterol [Mass/Vol] 162 mg/dL Normal 150-200 [facility] Comment on above: Performed By: #### 2 4331-1, THYR, CBCA, CMP #### [facility] ([id number]) [address], [address] [place] [address] Cholesterol in HDL [Mass/Vol] 75 mg/dL Normal >39 [facility] Comment on above: Result Comment: HDL <40 mg/dL - High Risk HDL > or = 40mg/dL- Desirable HDL >60 mg/dL - Negative Risk Performed By: #### 2 4331-1, THYR, CBCA, CMP #### [facility] ([id number]) [address], [address] [place] [address] Cholesterol in LDL [Mass/Vol] 71 mg/dL Normal <130 [facility] Comment on above: Result Comment: LDL <100 mg/dL - Desirable LDL >160 mg/dL - High Risk Performed By: #### 2 4331-1, THYR, CBCA, CMP #### [facility] ([id number]) [address], [address] [place] [address] Cholesterol in VLDL [Mass/Vol] 16 mg/dL Normal 0-30 [facility] Comment on above: Performed By: #### 2 4331-1, THYR, CBCA, CMP #### [facility] ([id number]) [address], [address] [place] [address] CHOLESTEROL:HDL 2.2 Normal 1.0-5.0 [facility] Comment on above: Performed By: #### 2 4331-1, THYR, CBCA, CMP #### [facility] ([id number]) [address], [address] [place] [address] Triglyceride [Mass/Vol] 81 mg/dL Normal 27-150 [facility] Comment on above: Performed By: #### 2 4331-1, THYR, CBCA, CMP #### [facility] ([id number]) [address] [facility] [place] [address] THYROID PROFILEon 06-22-2024 Free T4 [Mass/Vol] 1.62 ng/dL High 0.61-1.60 [facility] Comment on above: Performed By: #### 2 4331-1, THYR, CBCA, CMP #### [facility] ([id number]) [address] [facility] [facility] [place] [address] TSH 0.02 uIU/mL Low 0.49-4.67 [facility] Comment on above: Performed By: #### 2 4331-1, THYR, CBCA, CMP #### [facility] ([id number]) [address], [address] [place] [address] Established Visit (Otolaryng ology)on 03-23-2022 Established Visit [...] -advised her to 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 They may just decide [...] DAILY Vitals Vital Signs Recorded: 19Dec2021 04:25PM Cjfaghpwzjw09.8 F Height6 ft 1 in Aybxkq137 lb 9.6 oz BMI Nyervfmhjw14.33 kg/m2 BSA Calculated2.71 Tobacco Useb) No Fall [...] intact. Neck incision healing well Results/Data Surgical [id number] 09:52AMEdy Dominguez [Dec 18, 2021 4:12PM Edy Dominguez] f/u 12/19 Test NameResultFlagReference Case Surgical Pathology(Report) Name LAURO PINTO Pathologist: LILLI AMAYA ASA, MD, PhD Date of Procedure: 12/04/2021 Date Received: 12/04/2021 Date Reported 12/10/2021 Submitting Physician: EDY DOMINGUEZ MD Location: [facility] Other External # FINAL DIAGNOSIS A. RIGHT [...] in toto superior to inferior AMD amd/12/06/2021 [facility] Department of Pathology [address] [place] [address] Procedure 'Scores and Scales' Signatures Electronically signed by : Edy Dominguez MD; Dec 19 2021 7:05PM EST (Author) Normal [facility] Tobacco Screening.on 022 Fall risk assessment a) No falls within the last year [facility] Work Phone: Tobacco use status CP b) No [facility] Work Phone: Daily [...] provided Objective Data: Objective Information: T PRBPMAPSpO2 [id number]/414956% Date/Time12/05 4:004/ 4:004/ 4:004/ 4:003/31 17:004/ 4:00 Range(36.2C - 37.2C ) (79 - 90 ) (16 - 18 ) (117 - 142 )/ (59 - 67 ) (90 - 90 ) (93% - 94% ) Highest temp of 37.2 C was recorded at 12/04 20:00 Pain reported at 12/05 5:10: 3 = Mild ---- Intake and Output ----- Mn/Dy/Year TimeIntakeOutputNet Dec 04, 2021 10:00 pm000 Dec 04, 2021 2:00 [id number] The Intake and Output Totals for the last 24 hours are: IntakeOutputNet [id number] Recent Lab Results: Results: RFP: 12/04/2021 11:09 [...] Updated: 05-Dec-2021 07:10 by Edy Dominguez) Normal [facility] MAGNESIUMon 12-05-2021 Magnesium [Mass/Vol] 1.80 mg/dL Normal 1.60 - 2.40 [facility] Comment on above: Performed By: #### M G #### [facility] [address] [place] [address] Magnesium, Serumon Magnesium [Mass/Vol] 1.80 mg/dL See Below [facility] Work Phone: Comment on above: Reference Range: 1.6 0 - 2.40 PARATHYROID HORMONE,INTACTon 12-05-2021 PARATHYROID HORMONE,INTACT 77.2 pg/mL Normal 12.0 - 88.0 [facility] Comment on above: Performed By: #### P TH #### [address] [address] Parathormone Intact, Serumon 12-05-2021 Parathyrin.intact [Mass/Vol] 77.2 pg/mL See Below [facility] Work Phone: Comment on above: Reference Range: 12. 0 - 88.0 RENAL FUNCTION PANELon 12-05 Albumin [Mass/Vol] 3.4 g/dL Normal 3.4 - 5.0 [facility] Comment on above: Performed By: #### R ENAL #### [address] [address] Anion gap [Moles/Vol] 11 mmol/L Normal 10 - 20 [facility] Comment on above: Performed By: #### R ENAL #### [address] [address] Calcium [Mass/Vol] 8.5 mg/dL Low 8.6 - 10.3 [facility] Comment on above: Performed By: #### R ENAL #### [address] [address] Chloride [Moles/Vol] 105 mmol/L Normal 98 - 107 [facility] Comment on above: Performed By: #### R ENAL #### [address] [address] Creatinine [Mass/Vol] 0.77 mg/dL Normal 0.50 - 1.05 [facility] Comment on above: Performed By: #### R ENAL #### [address] [address] eGFR FEMALE >90 Normal >90 [facility] Comment on above: Result Comment: CALC ULATIONS OF ESTIMATED GFR ARE PERFORMED USING THE 2020 CKD-EPI STUDY REFIT EQUATION WITHOUT THE RACE VARIABLE FOR THE IDMS-TRACEABLE CREATININE METHODS. https://jasn.asnjournals.org/content//ASN.883337888 8 Performed By: #### R ENAL #### [address] [address] Glucose [Mass/Vol] 123 mg/dL High 74 - 99 [facility] Comment on above: Performed By: #### R ENAL #### [address] [address] HCO3 (Bld) [Moles/Vol] 25 mmol/L Normal 21 - 32 [facility] Comment on above: Performed By: #### R ENAL #### [address] [address] Phosphate [Mass/Vol] 3.6 mg/dL Normal 2.5 - 4.9 [facility] Comment on above: Result Comment: The performance characteristics of phosphorus testing in heparinized plasma have been validated by the individual laboratory site where testing is performed. Testing on heparinized plasma is not approved by the FDA; however, such approval is not necessary. Performed By: #### R ENAL #### [address] [address] Potassium [Moles/Vol] 4.4 mmol/L Normal 3.5 - 5.3 [facility] Comment on above: Performed By: #### R ENAL #### [address] [address] Sodium [Moles/Vol] 137 mmol/L Normal 136 - 145 [facility] Comment on above: Performed By: #### R ENAL #### [address] [address] Urea nitrogen [Mass/Vol] 17 mg/dL Normal 6 - 23 [facility] Comment on above: Performed By: #### R ENAL #### [address] [address] Renal Function Panelon 12-05 Albumin BCP dye [Mass/Vol] 3.4 g/dL 3.4 - 5.0 [facility] Work Phone: Anion gap [Moles/Vol] 11 mmol/L 10 - 20 [facility] Work Phone: Calcium [Mass/Vol] 8.5 mg/dL below low threshold 8.6 - 10.3 [facility] Work Phone: Chloride [Moles/Vol] 105 mmol/L 98 - 107 [facility] Work Phone: CO2 [Moles/Vol] 25 mmol/L 21 - 32 [facility] yng[facility] Work Phone: Creatinine [Mass/Vol] 0.77 mg/dL See Below [facility] Work Phone: Comment on above: Reference Range: 0.5 0 - 1.05 Glucose [Mass/Vol] 123 mg/dL above high threshold 74 - 99 [facility] Work Phone: Phosphate [Mass/Vol] 3.6 mg/dL 2.5 - 4.9 [facility] Work Phone: Comment on above: The performance ya acteristics of phosphorus testing in heparinized plasma have been validated by the individual laboratory site where testing is performed. Testing on heparinized plasma is not approved by the FDA; however, such approval is not necessary. Potassium [Moles/Vol] 4.4 mmol/L 3.5 - 5.3 [facility] Work Phone: Sodium [Moles/Vol] 137 mmol/L 136 - 145 [facility] [facility] Work Phone: Urea nitrogen [Mass/Vol] 17 mg/dL 6 - 23 [facility] Work Phone: Renal Function Panel >90 >90 [facility] Work Phone: Comment on above: CALCULATIONS OF ROSALIA MATED GFR ARE PERFORMED USING THE 2020 CKD-EPI STUDY REFIT EQUATION WITHOUT THE RACE VARIABLE FOR THE IDMS-TRACEABLE CREATININE METHODS.https://jasn.asnjournals.org/content//ASN.2 897878561 Admission Risk Screen - Adul ton 12-04-2021 Admission Risk Screen - Adult Allergies: Allergies: Succinylcholine Chloride: Unknown (Severe) Patient Verification: New W ID Band Applied in my Departmentno Type of ID Patient is WearingW wristband, but not applied here Patient Transferred from Other Facility ([facility], [facility],etc)no Patient Identity Verified Bypatient [...] AlertFor Ebola-like Symptoms: Isolate Patient and Notify Provider/Cafeteria Attendant For Contact: Notify Provider/Cafeteria Attendant Advance Directive: Advance Directive/DNRno Advance Directive Information [...] Learning Preferencesverbal instruction Cultural Considerationsnone Developmental Considerationsnone Hindu Considerationsnone Learning Assessment (Other Learner): Other learner availableno Depression Screen: During the past month, have you often been bothered by feeling down, depressed or hopelessno During the past month, have you often had little interest or pleasure in doing thingsno Have you had any thoughts of harming anyone elseno [place] Suicide: Risk Screen Not Applicable/Able to Answerable to be screened In the Past Month: Have you wished you were or could go to sleep and not wake upno(1) In the Past Month: Have you had any actual thoughts of killing yourself no(1) Lifetime: Have you ever done, started to do, or prepared to do anything to end your lifeno(1) [place] Suicide Risknegative Adult Nutrition Screen: Have you [...] Spiritual Screen: Are there any cultural, spiritual, holiness practices/values/needs that are important for us to knowno CAGE: Is this an injured patient at a Trauma Center ([facility]/[place]/Wily/Haim Woo/Kristine): no Vaccinations: Vaccination - Influenza Vaccination Screen: Is it flu season (between and December 04)Yes Screening for identified contraindications to influenza vaccination patient/caregiver refusal Vaccination - Pneumonia Vaccination Screen: Patient has received a previous pneumonia vaccine:no/unknown... Immunocompetent persons with underlying chronic conditions or reside in terminal worker care facilitiesnone of these conditions Persons with Functional or Anatomic Asplenianone of these conditions Immunocompromised Personsnone of these conditions Pneumonia v (more content not included)... Normal [facility] CORONAVIRUS 2019, SCREEN ASY MPTOMATICon 12-04-2021 DATE OF SYMPTOM ONSET [YYYYMMDD]? Canceled Normal [facility] Comment on above: Order Comment: TEST PT/INR WAS CANCELLED, 07/07/2021 12:20 SPECIMEN CLOTTED.PLEASE RESUBMITDUPLICATE ORDER. Performed By: #### P TINR #### [place] [id number] SARS-CoV-2 (COVID-19) RNA APURVA+probe Ql (Unsp spec) Canceled Normal [facility] Comment on above: Order Comment: TEST PT/INR WAS CANCELLED, 07/07/2021 12:20 SPECIMEN CLOTTED.PLEASE RESUBMITDUPLICATE ORDER. Result Comment: . This test has received FDA Emergency Use Authorization (EUA) and has been verified by [facility]. This test is only authorized for the duration of time that circumstances exist to justify the authorization of the emergency use of in vitro diagnostic tests for the detection of SARS-CoV-2 virus and/or diagnosis of COVID-19 infection under section 564(b)(1) of the Act, 21 U.S.C. 360bbb-3(b)(1), unless the authorization is terminated or revoked sooner. [facility] is certified under CLIA-88 as qualified to perform high complexity testing. Testing is performed in the [facility] laboratory located at [address] [place] [address]. SARS-CoV-2/Flu/RSV Multiplex Test: Fact sheet for providers: https://www.fda.gov/media/802285/download Fact sheet for patients: https://www.fda.gov/media/140154/download Performed By: #### P TINR #### [address] [place] [id number] Lab Specimen Source Nasal, Nasopharyngeal Normal [facility] Comment on above: Order Comment: TEST PT/INR WAS CANCELLED, 07/07/2021 12:20 SPECIMEN CLOTTED.PLEASE RESUBMITDUPLICATE ORDER. Performed By: #### P TINR #### [facility] [id number] [place] [address] [place] [id number] Clinical Intervention - Jona osorio 12-04-2021 Clinical Intervention - Pharmacy Pharmacist's Clinical Intervention: Is this intervention medication reconciliation related: yes, History Electronic Signatures: Feliciano Martínez ([employer] (Signed 04-Dec-2021 13:41) Authored: Pharmacist's Clinical Intervention Last Updated: 04-Dec-2021 13:41 by Feliciano Martínez ([employer] Normal [facility] Coronavirus 2019 RNA by PCR, Screening Asymptomticon 12-04-2021 Date and time of symptom onset Canceled [facility] Work Phone: Coronavirus 2019 RNA by PCR, Screening Asymptomtic Canceled [facility] Work Phone: Comment on above: SOURCE: Nasal, Nasop haryngeal.This test has received FDA Emergency Use Authorization (EUA) and has been verified by [facility]. This test is only authorized for the duration of time that circumstances exist to justify the authorization of the emergency use of in vitro diagnostic tests for the detection of SARS-CoV-2 virus and/or diagnosis of COVID-19 infection under section 564(b)(1) of the Act, 21 U.S.C. 360bbb-3(b)(1), unless the authorization is terminated or revoked sooner. [facility] is certified under CLIA-88 as qualified to perform high complexity testing. Testing is performed in the [facility] laboratory located at [address] [place] [address].SARS-CoV-2/Flu/RSV Multiplex Test: Fact sheet for providers: https://www.fda.gov/media/166470/downloadFact sheet for patients: https://www.fda.gov/media/918208/download Discharge Hxqzmzt5yx 022 Discharge Profile2 Discharge Orders: Anticipated Discharge Date: Anticipated Discharge [id number] Anticipated Discharge Time11:00 Problem List: Additional Dx: [...] Medical History Hospital Providers: Provider RoleProvider Name Edy Morrow Charles DNAR: Code Status at Discharge: Full [...] (POV) Call to Schedule in2 weeks Phone [phone], please call with any questions CommentsYou will [...] REVIEW of Orders, Appointments, Gold Form - Bureau Chief Summary Mogus, Alejandra (ASST N MGR) (Signed 05-Dec-19 (more content not included)... Normal [facility] HCG,URINEon 12-04-2021 Beta HCG ( test) Ql (U) Negative Normal Negative [facility] Comment on above: Performed By: #### H CGU #### [facility] [address] [place] [address] No Panel Informationon 12-04 Name JEAN-CLAUDE PINTO Pathologist: LILLI AMAYA ASA, MD, PhD Date of Procedure: 12/04/2021 Date Receive [facility] Work Phone: Order Reconciliationon 12-04 Order Reconciliation [...] controlled with tylenol an motrin, ICD10: G89.18 10-Jul-2021 13:57 Discontinued; Discontinue from [...] orally christina (more content not included)... Normal [facility] Order Reconciliation Page 1 Admission Reconciliation Document [...] not controlled with tylenol an motrin, ICD10: [id number]-6989 Reviewed and Held Vraylar 1.5 mg oral capsule 1 cap(s) orally once a [id number] Cariprazine Capsule (VRAYLAR)DOSE = 1.5 mg Oral DailyVraylar 1.5 mg oral capsule continued as the inpatient order Cariprazine Zoloft 25 mg oral tablet 0.5 tab(s) orally once a [id number] Reviewed and Held Additional Current Orders Acetaminophen [...] Every 2 Hours, PRN Sore Throat Normal [facility] PARATHYROID HORMONE,INTACTon 12-04-2021 PARATHYROID HORMONE,INTACT 38.9 pg/mL Normal 12.0 - 88.0 [facility] Comment on above: Performed By: #### P TH #### [facility] [address] [place] [address] Parathormone Intact, Serumon 12-04-2021 Parathyrin.intact [Mass/Vol] 38.9 [...] Arrived FromOR Patient Belongingsnone [facility]: Blood Avoidance/Restrictionsnone (1) Previous Transfusion Reactionnot applicable(1) Weight in kg155.9 kilogram(s)(2) Weight in lnq955.7 pound(s) Weight Methodstated Scale Typebed Height in [...] Profile - Adult v2 10-Jul-2021 12:57 Normal [facility] Patient Profile - Preop v3on 12-04-2021 Patient Profile - Preop v3 Patient Profile - Preop: Initial Info: Patient DemographicsName: LAURO PINTO Date: 1975 Address: [address] [place] [address] Primary Phone [phone] How to be Addressedmichelle Spoken Language PreferredEnglish Source of Informationpatient Stated Reason for Admissionthyroidectomy Primary Contact Name and Numberbrenda-mother Limitations on Visitors/Phone Callsonly immediate family may visit Medications Brought to [facility]: Weight in kg155.9 kilogram(s) Weight in kkv730.7 pound(s) Weight Methodstated Height in feet6 feet Height in inches0.95 inch(es) Height in cm185.2 centimeter(s) Height Methodstated BMI (kg/m2)45.453 square meter Patient or Family Member Reaction to Anesthesiafamily reaction; no previous reaction Family Reaction to Anesthesiamalignant hyperthermia Blood Avoidance/Restrictionsnone Previous Transfusion Reactionnot applicable Health Mgmt: [facility]; respiratory Are You no Are You Currently Breastfeedingno Barriers to Managing Healthnone Relationship/Environ: Lives Withdependent child(fely) Living Arrangementshouse Resource/Environmental Concernsnone Anticipated Transition Toinpatient acute unit Services Anticipated at Transitionnone Tobacco Use: Tobacco Useno Pre-op Checklist: Arrival [id number] Arrival Time06:03 Procedure Typethyroidectomy NPOyes Last Food Kbuwuc77-Wyk-8998 20:00 Last Clear Fluid Lunbbh04-Iax-7783 20:00 ID Band On Patientpatient ID (name), [...] 04-Dec-2021 06:47 by Portia Naylor (SALLY) Normal [facility] RENAL FUNCTION PANELon 12-04 Albumin [Mass/Vol] 3.6 g/dL Normal 3.4 - 5.0 [facility] Comment on above: Performed By: #### R ENAL #### [address] [place] [address] Anion gap [Moles/Vol] 13 mmol/L Normal 10 - 20 [facility] Comment on above: Performed By: #### R ENAL #### [address] [place] [address] Calcium [Mass/Vol] 8.5 mg/dL Low 8.6 - 10.3 [facility] Comment on above: Performed By: #### R ENAL #### [address] [place] [address] Chloride [Moles/Vol] 106 mmol/L Normal 98 - 107 [facility] Comment on above: Performed By: #### R ENAL #### [address] [address] Creatinine [Mass/Vol] 0.89 mg/dL Normal 0.50 - 1.05 [facility] Comment on above: Performed By: #### R ENAL #### [address] [place] [address] GFR/1.73 sq M.predicted among non-blacks MDRD (S/P/Bld) [Vol rate/Area] 81 mL/min/{1.73_m2} Normal >90 [facility] Comment on above: Result Comment: CALC ULATIONS OF ESTIMATED GFR ARE PERFORMED USING THE 2020 CKD-EPI STUDY REFIT EQUATION WITHOUT THE RACE VARIABLE FOR THE IDMS-TRACEABLE CREATININE METHODS. https://jasn.asnjournals.org/content/early/ASN.920743407 8 Performed By: #### R ENAL #### [address] [place] [address] Glucose [Mass/Vol] 116 mg/dL High 74 - 99 [facility] Comment on above: Performed By: #### R ENAL #### [address] [place] [address] HCO3 (Bld) [Moles/Vol] 21 mmol/L Normal 21 - 32 [facility] Comment on above: Performed By: #### R ENAL #### [address] [place] [address] Phosphate [Mass/Vol] 2.5 mg/dL Normal 2.5 - 4.9 [facility] Comment on above: Result Comment: The performance characteristics of phosphorus testing in heparinized plasma have been validated by the individual laboratory site where testing is performed. Testing on heparinized plasma is not approved by the FDA; however, such approval is not necessary. Performed By: #### R ENAL #### [address] [place] [address] Potassium [Moles/Vol] 4.1 mmol/L Normal 3.5 - 5.3 [facility] Comment on above: Performed By: #### R ENAL #### [address] [address] Sodium [Moles/Vol] 136 mmol/L Normal 136 - 145 [facility] Comment on above: Performed By: #### R ENAL #### [address] [address] Urea nitrogen [Mass/Vol] 15 mg/dL Normal 6 - 23 [facility] Comment on above: Performed By: #### R ENAL #### [address] [place] [address] Renal Function Panelon 12-04 Albumin BCP dye [Mass/Vol] 3.6 g/dL 3.4 - 5.0 [facility] Work Phone: Anion gap [Moles/Vol] 13 mmol/L 10 - 20 [facility] Work Phone: Calcium [Mass/Vol] 8.5 mg/dL below low threshold 8.6 - 10.3 [facility] Work Phone: Chloride [Moles/Vol] 106 mmol/L 98 - 107 [facility] Work Phone: CO2 [Moles/Vol] 21 mmol/L 21 - 32 [facility] yngol [facility] Work Phone: Creatinine [Mass/Vol] 0.89 mg/dL See Below [facility] Work Phone: Comment on above: Reference Range: 0.5 0 - 1.05 Glucose [Mass/Vol] 116 mg/dL above high threshold 74 - 99 [facility] Work Phone: Phosphate [Mass/Vol] 2.5 mg/dL 2.5 - 4.9 [facility] Work Phone: Comment on above: The performance ya acteristics of phosphorus testing in heparinized plasma have been validated by the individual laboratory site where testing is performed. Testing on heparinized plasma is not approved by the FDA; however, such approval is not necessary. Potassium [Moles/Vol] 4.1 mmol/L 3.5 - 5.3 [facility] Work Phone: Sodium [Moles/Vol] 136 mmol/L 136 - 145 [facility] [facility] Work Phone: Urea nitrogen [Mass/Vol] 15 mg/dL 6 - 23 [facility] Work Phone: Renal Function Panel 81 {mL/min/1.73m2} >90 [facility] Work Phone: Comment on above: CALCULATIONS OF ROSALIA MATED GFR ARE PERFORMED USING THE 2020 CKD-EPI STUDY REFIT EQUATION WITHOUT THE RACE VARIABLE FOR THE IDMS-TRACEABLE CREATININE METHODS.https://jasn.asnjournals.org/content//ASN.2 274670671 [facility] Surgical Pathology Depar tmenton 12-04-2021 [facility] Surgical Pathology Department Name LAURO PINTO Pathologist: LILLI AMAYA ASA, MD, PhD Date of Procedure: 12/04/2021 Date Received: 12/04/2021 Date Reported 12/10/2021 Submitting Physician: EDY DOMINGUEZ MD Location: [facility] Other External # FINAL DIAGNOSIS A. RIGHT [...] in toto superior to inferior AMD amd/12/06/2021 [facility] Department of Pathology [address] [place] [address] Normal [facility] Comment on above: Performed By: #### U [facility] #### [facility] Surgical Pathology Department [address] [place] [address] Urine Teston 12-04 HCG ( test) Ql (U) Negative Negative [facility] Work Phone: Established Visit (Otolaryng ology)on 10-27-2021 [...] MOUTH ONCE DAILY Vitals Vital Signs Recorded: [id number] 09:32AM Zxriscwjlrv79.9 F Aiouyskm574 Tvrzjsbrc50 Height6 ft 1 in Aorfpm911 lb BMI Ihssziwjmm54.25 kg/m2 BSA Calculated2.71 Tobacco Useb) No Fall [...] Oct 27 2021 10:15AM EST (Author) Normal [place] Risk Screeningon 10-27 Fall risk assessment a) No falls within the last year [facility] Work Phone: Tobacco use status [facility] b) No [facility] Work Phone: COVID + FLU Quick Testingon 08-16-2021 SARS-CoV-2 (COVID-19) RNA APURVA+probe Ql (Unsp spec) Positive [facility] Other COVID + FLU Quick Testing Negative [facility] Other Established Visit (Otolaryng ology)on 07-21-2021 Established [...] MOUTH ONCE DAILY Vitals Vital Signs Recorded: 21Jul2021 02:48PM Kaerpkfayko48.9 F Mcakevtu401 Vmxydcnxi84 Height6 ft 1 in Xfcrsk082 lb BMI Wvzrnxemxh33.59 kg/m2 BSA Calculated2.69 Tobacco Useb) No Fall Screeninga) No falls within the last year Pain Scale2 Physical Exam Steri-Strips removed, neck incision healing well, no sign of infection or fluid collection 'Scores and Scales' Signatures Electronically signed by : Edy Dominguez MD; Jul 25 2021 4:35AM EST (Author) Normal [place] Tobacco Screening.on Fall risk assessment a) No falls within the last year [facility] Work Phone: Tobacco use status CP b) No [facility] Work Phone: Daily Progress Note-ENTon Daily Progress [...] today Objective Data: Objective Information: T PRBPSpO2 Value36.69816630/5698% Date/Time07/10 22:5311/4 22:5311/4 19:4011/4 22:5311/4 22:53 Range(36.2C - 36.8C ) (69 - 83 ) (13 - 18 ) (108 - 133 )/ (56 - 73 ) (97% - 98% ) As of 10-Jul-2021 16:01:00, patient is on 2 L/min of oxygen via room air. Pain reported at 07/11 2:45: 4 = Moderate ---- Intake and Output ----- Mn/Dy/Year TimeIntakeOutputNet Jul 11, 2021 6:00 [id number] Jul 10, 2021 10:00 [id number] Jul 10, 2021 2:00 [id number] The Intake and Output Totals for the last 24 hours are: IntakeOutputNet [id number] Recent Lab Results: Results: Coagulation: 07/10/2021 07:50 PT / 12.0 / -------< INR < 1.0 PTT\ 26 \ Assessment and Plan: Comorbidities: Comorbidityobesity Obesitymorbid obesity (BMI 40+) Code Status: Code StatusFull Code Electronic Signatures: Edy Dominguez) (Signed 11-Jul-2021 06:06) Authored: Service, Subjective Data, Objective Data, Assessment and Plan, Note Completion Last Updated: 11-Jul-2021 06:06 by Edy Dominguez) Normal [facility] APTTon 07-10-2021 aPTT Coag (Bld) [Time] 26 s Normal 25 - 35 [facility] Comment on above: Result Comment: THE APTT IS NO LONGER USED FOR MONITORING UNFRACTIONATED HEPARIN THERAPY. FOR MONITORING HEPARIN THERAPY, USE THE HEPARIN ASSAY. Performed By: #### A PTT #### [facility] [address] [place] [id number] Activated Partial Thrombopla stin Timeon 07-10-2021 aPTT Coag (PPP) [Time] 26 s 25 - 35 [facility] Work Phone: Comment on above: THE APTT [...] AlertFor Ebola-like Symptoms: Isolate Patient and Notify Provider/Cafeteria Attendant For Contact: Notify Provider/Cafeteria Attendant Advance Directive: Advance Directive/DNRno Advance Directive Information [...] demonstration; verbal instruction Cultural Considerationsnone Developmental Considerationsnone Hindu Considerationsnone Learning Assessment (Other Learner): Other learner availableno Depression Screen: During the past month, have you often been bothered by feeling down, depressed or hopelessno During the past month, have you often had little interest or pleasure in doing thingsno Have you had any thoughts of harming anyone elseno [place] Suicide: Risk Screen Not Applicable/Able to Answerable to be screened In the Past Month: Have you wished you were or could go to sleep and not wake upno(1) In the Past Month: Have you had any actual thoughts of killing yourself no(1) Lifetime: Have you ever done, started to do, or prepared to do anything to end your lifeno(1) [place] Suicide Risknegative Adult Nutrition Screen: (more content not included)... Normal [facility] Discharge Mcilcxn0sc 021 Discharge Profile2 Discharge Orders: Anticipated Discharge Date: Anticipated Discharge Tyyp12-Poe-8602 Anticipated Discharge Time11:00 Problem List: Medical History: [...] Course (Home Care/Gold Form), Gold Form - Bureau Chief Summary Edy Dominguez) (Signed 11-Jul-2021 06:07) Authored: Discharge Orders, Hospital Course (Home Care/Gold Form), Provider FINAL REVIEW of Orders Last Updated: 11-Jul-2021 06:07 by Edy Dominguez) Normal [facility] HCG,URINEon 07-10-2021 Beta HCG ( test) Ql (U) Negative Normal Negative [facility] Comment on above: Performed By: #### H CGU #### [facility] [address] [place] [address] Laboratory - Coagulationon 1 09-09-2020 INR Coag (PPP) [Relative time] 1.0 {INR} 0.9 - 1.1 [facility] Work Phone: PT Coag (PPP) [Time] 12.0 s See Below [facility] Work Phone: Comment on above: Reference Range: 10. 1 - 13.3 No Panel Informationon 07-10 Name JEAN-CLAUDE PINTO Pathologist: LILLI AMAYA ASA, MD, PhD Date of Procedure: 07/10/2021 Date Receive [facility] Work Phone: Order Reconciliationon 07-10 Order Reconciliation Page 1 Discharge Reconciliation Document Reconciliation Type: Discharge requested on behalf of Juan Becerra (Resident) done by Juan Becerra ( (Resident)) Discharge - Reconciliation: 10-Jul-2021 13:57 by: Juan Becerra (Resident)) Home Medications EnteredHOME MEDICATIONS AT DISCHARGE [...] 0.5 tab(s) orally once a day Normal [facility] Order Reconciliation Page 1 Admission Reconciliation Document Reconciliation Type: Admission from OR requested on behalf of Juan Becerra (Resident) done by Juan Becerra ( (Resident)) Admission from OR - Reconciliation: 10-Jul-2021 08:48 by: Juan Becerra ( (Resident)) Home MedicationsEnteredLast Dose TakenReconciled with current Order Reconciliation Comment/ Additional Information omeprazole 20 mg oral delayed release capsule 1 cap(s) orally once a day [id number] PM Pantoprazole Enteric Coated Tablet (PROTONIX)DOSE = 40 mg Oral DailyNotes from Pharmacy: Substitution for Omeprazole 20 mg Oral Capsule Dailyomeprazole 20 mg oral delayed release capsule continued as the inpatient order Pantoprazole Vraylar 1.5 mg oral capsule 1 cap(s) orally once a [id number]-Mye-412989-Oxl-9354 PM Cariprazine Capsule (VRAYLAR)DOSE = 1.5 mg Oral DailyVraylar 1.5 mg oral capsule continued as the inpatient order Cariprazine Zoloft 25 mg oral tablet 0.5 tab(s) orally once a [id number]-Tdp-086847-Lvj-9708 PM Sertraline - PEDS Tablet (ZOLOFT)DOSE = [...] and ambulat (more content not included)... Normal [facility] PT/INRon 07-10-2021 PT Coag (PPP) [Time] 12.0 s Normal 10.1 - 13.3 [facility] Comment on above: Performed By: #### M G #### [address] [address] PT, INR 1.0 Normal 0.9 - 1.1 [facility] Comment on above: Performed By: #### M G #### [address] [address] Patient Profile - Adult v2on 07-10-2021 Patient Profile - Adult v2 Profile: Initial Info: How to be Addressedmichelle(1) Spoken Language PreferredEnglish (1) Source of Informationpatient Stated Reason for Admissionleft thyroidectomy Primary Contact Name and Numberheather [phone] Wants Family/Rep Notified of Admissionyes, primary contact Notify PCPnotify PCP Informed of Patient Visiting Rightsyes Arrived FromOR Was Admitted To in Past 90 Daysnone Patient Belongingsremains with patient Patient Belongings Remaining with Patientclothing; cell phone/electronics; purse/wallet; Purse, clothing, cell phone Medications Brought to Hospitalno General Health: Blood Avoidance/Restrictionsnone (1) Previous Transfusion Reactionno(1) Weight in kg152.9 kilogram(s) Weight in xep518 pound(s) Weight Methodstated Scale Typestanding Height in [...] no (1) Are You Currently Breastfeedingno (1) 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 Barriers to Managing Healthnone Relationship/Environ: [...] Profile - Preop v3 07-Jul-2021 11:02 Normal [facility] Patient Profile - Preop v3on 07-10-2021 Patient Profile - Preop v3 Patient Profile - Preop: Initial Info: Patient DemographicsName: LAURO PINTO Date: 1975 Address: [address] [place] [address] Primary Phone [phone] How to be Addressedmichelle Spoken Language PreferredEnglish Source of Informationpatient Stated Reason for Admissionleft thyroidectomy Primary Contact Name and Numberheather [phone] Patient Belongingsnone Medications Brought to Hospitalno General [...] child(fely) Living Arrangementshouse Resource/Environmental Concernsnone [facility] at [facility] Tobacco Use: Tobacco Useno Pre-op Checklist: Arrival Ltaw99-Dzz-8148 Arrival Time06:45 Procedure Typeleft hemithyroidectomy NPOyes Last Food Tgfybs45-Tuw-8153 18:00 Last Clear Fluid Xqkvya70-Mav-7136 06:20 ID Band On Patientpatient ID (name) [...] Update < 30 days 10-Jul-2021 07:14 Normal [facility] Surgical Pathology Depar tmenton 07-10-2021 [facility] Surgical Pathology Department Name LAURO PINTO Pathologist: [...] nodule(s) or nodular follicular disease ADDITIONAL TESTING CYLINDER WORKER BLOCKS: Normal Block: A20 Tumor Block: A8, [...] and has a heterogeneous, gelatinous cut surface. Fire Apparatus Engineer sections of the specimen are submitted in 20 cassettes. A 1 superior lobe, environmental marketing representative perpendicular sections 2-15 superior to inferior, environmental marketing representative sections 16 inferior lobe, environmental marketing representative perpendicular sections 17 isthmus resection margin, en face 18-20 environmental marketing representative sections of isthmus, from margin to lobe DLS dls/07/14/2021 [facility] Department of Pathology [address] [place] [address] Normal [facility] Comment on above: Performed By: #### U HCS #### [facility] Surgical Pathology Department [address] [facility] [address] Urine Teston 07-10 HCG ( test) Ql (U) Negative Negative [facility] Work Phone: APTTon 07-07-2021 APTT Canceled Normal [facility] Comment on above: Order Comment: TEST APTT WAS CANCELLED, 07/07/2021 12:20 SPECIMEN CLOTTED.PLEASE RESUBMIT. Result Comment: THE APTT IS NO LONGER USED FOR MONITORING UNFRACTIONATED HEPARIN THERAPY. FOR MONITORING HEPARIN THERAPY, USE THE HEPARIN ASSAY. Performed By: #### A PTT #### [facility] [address] [place] [address] Activated Partial Thrombopla stin Timeon 07-07-2021 aPTT Coag (PPP) [Time] Canceled [facility] Work Phone: Comment on above: THE APTT IS NO LONGE R USED FOR MONITORING UNFRACTIONATED HEPARIN THERAPY. FOR MONITORING HEPARIN THERAPY, USE THE HEPARIN ASSAY. CBC AND DIFFERENTIALon 07-07 % AUTOMATED IMMATURE GRAN 0.3 % Normal 0.0 - 0.9 [facility] Comment on above: Result Comment: Lizeth ture Granulocyte Count (IG) includes promyelocytes, myelocytes and metamyelocytes but does not include bands. Percent differential counts (%) should be interpreted in the context of the absolute cell counts (cells/L). Performed By: #### P TINR #### [address] [address] Basophils (Bld) [#/Vol] 0.03 10*3/uL Normal 0.00 - 0.10 [facility] Comment on above: Performed By: #### P TINR #### [address] [address] Basophils/100 WBC (Bld) 0.4 % Normal 0.0 - 2.0 [facility] Comment on above: Performed By: #### P TINR #### [address] [address] Eosinophils (Bld) [#/Vol] 0.10 10*3/uL Normal 0.00 - 0.70 [facility] Comment on above: Performed By: #### P TINR #### [address] [address] Eosinophils/100 WBC (Bld) 1.5 % Normal 0.0 - 6.0 [facility] Comment on above: Performed By: #### P TINR #### [address] [address] Erythrocyte distribution width (RBC) [Ratio] 13.9 % Normal 11.5 - 14.5 [facility] Comment on above: Performed By: #### P TINR #### [address] [address] Hematocrit (Bld) [Volume fraction] 39.1 % Normal 36.0 - 46.0 [facility] Comment on above: Performed By: #### P TINR #### [address] [address] Hemoglobin (Bld) [Mass/Vol] 11.7 g/dL Low 12.0 - 16.0 [facility] Comment on above: Performed By: #### P TINR #### [address] [address] Lymphocytes (Bld) [#/Vol] 1.82 10*3/uL Normal 1.20 - 4.80 [facility] Comment on above: Performed By: #### P TINR #### [address] [address] Lymphocytes/100 WBC (Bld) 26.6 % Normal 13.0 - 44.0 [facility] Comment on above: Performed By: #### P TINR #### [address] [address] MCHC (RBC) [Mass/Vol] 29.9 g/dL Low 32.0 - 36.0 [facility] Comment on above: Performed By: #### P TINR #### [address] [address] MCV (RBC) [Entitic vol] 89 fL Normal 80 - 100 [facility] Comment on above: Performed By: #### P TINR #### [address] [address] Monocytes (Bld) [#/Vol] 0.40 10*3/uL Normal 0.10 - 1.00 [facility] Comment on above: Performed By: #### P TINR #### [address] [address] Monocytes/100 WBC (Bld) 5.8 % Normal 2.0 - 10.0 [facility] Comment on above: Performed By: #### P TINR #### [address] [address] Neutrophils (Bld) [#/Vol] 4.47 10*3/uL Normal 1.20 - 7.70 [facility] Comment on above: Performed By: #### P TINR #### [address] [address] Neutrophils/100 WBC (Bld) 65.4 % Normal 40.0 - 80.0 [facility] Comment on above: Performed By: #### P TINR #### [address] [address] NUCLEATED RBC 0.0 /100 WBC Normal 0.0 - 0.0 [facility] Comment on above: Performed By: #### P TINR #### [address] [address] Platelets (Bld) [#/Vol] 243 10*3/uL Normal 150 - 450 [facility] Comment on above: Performed By: #### P TINR #### [address] [address] RBC 4.40 x10E12/L Normal 4.00 - 5.20 [facility] Comment on above: Performed By: #### P TINR #### [address] [address] WBC (Bld) [#/Vol] 6.8 10*3/uL Normal 4.4 - 11.3 [facility] Comment on above: Performed By: #### P TINR #### [address] [address] COMPREHENSIVE PANELon 2020 Albumin [Mass/Vol] 4.0 g/dL Normal 3.4 - 5.0 [facility] Comment on above: Performed By: #### P TINR #### [address] [address] ALP [Catalytic activity/Vol] 49 U/L Normal 33 - 110 [facility] Comment on above: Performed By: #### P TINR #### [address] [address] ALT [Catalytic activity/Vol] 5 U/L Low 7 - 45 [facility] Comment on above: Result Comment: Nano ents treated with Sulfasalazine may generate falsely decreased results for ALT. Performed By: #### P TINR #### [address] [address] Anion gap [Moles/Vol] 11 mmol/L Normal 10 - 20 [facility] Comment on above: Performed By: #### P TINR #### [address] [address] AST [Catalytic activity/Vol] 13 U/L Normal 9 - 39 [facility] Comment on above: Performed By: #### P TINR #### [address] [address] Bilirubin [Mass/Vol] 0.5 mg/dL Normal 0.0 - 1.2 [facility] Comment on above: Performed By: #### P TINR #### [address] [address] Calcium [Mass/Vol] 8.8 mg/dL Normal 8.6 - 10.3 [facility] Comment on above: Performed By: #### P TINR #### [address] [address] Chloride [Moles/Vol] 106 mmol/L Normal 98 - 107 [facility] Comment on above: Performed By: #### P TINR #### [address] [address] Creatinine [Mass/Vol] 0.69 mg/dL Normal 0.50 - 1.05 [facility] Comment on above: Performed By: #### P TINR #### [address] [address] GFR- AM. >60 Normal >60 [facility] Comment on above: Result Comment: CALC ULATIONS OF ESTIMATED GFR ARE PERFORMED USING THE MDRD STUDY EQUATION FOR THE IDMS-TRACEABLE CREATININE METHODS. CLIN CHEM 2007;53:766-72 Performed By: #### P TINR #### [address] [address] GFR-NON AM. >60 Normal >60 [facility] Comment on above: Performed By: #### P TINR #### [address] [address] Glucose [Mass/Vol] 101 mg/dL High 74 - 99 [facility] Comment on above: Performed By: #### P TINR #### [address] [address] HCO3 (Bld) [Moles/Vol] 24 mmol/L Normal 21 - 32 [facility] Comment on above: Performed By: #### P TINR #### [address] [place] [address] Potassium [Moles/Vol] 4.0 mmol/L Normal 3.5 - 5.3 [facility] Comment on above: Performed By: #### P TINR #### [address] [place] [address] Protein [Mass/Vol] 7.1 g/dL Normal 6.4 - 8.2 [facility] Comment on above: Performed By: #### P TINR #### [address] [place] [address] Sodium [Moles/Vol] 137 mmol/L Normal 136 - 145 [facility] Comment on above: Performed By: #### P TINR #### [address] [place] [address] Urea nitrogen [Mass/Vol] 16 mg/dL Normal 6 - 23 [facility] Comment on above: Performed By: #### P TINR #### [address] [place] [address] CORONAVIRUS 2019, SCREEN ASY MPTOMATICon 07-07-2021 SARS-CoV-2 (COVID-19) RNA APURVA+probe Ql (Unsp spec) Not detected Normal Not Detected [facility] Comment on above: Result Comment: [...] patient management decisions. Fact sheet for providers: https://www.fda.gov/media/740166/download Fact sheet for patients: https://www.fda.gov/media/347670/download This test has received FDA Emergency Use Authorization (EUA) and has been verified by [facility] ([facility]). This test is only authorized for the duration of time that circumstances exist to justify the authorization of the emergency use of in vitro diagnostic tests for the detection of SARS-CoV-2 virus and/or diagnosis of COVID-19 infection under section 564(b)(1) of the Act, 21 U.S.C. 360bbb-3(b)(1), unless the authorization is terminated or revoked sooner. [facility] is certified under CLIA-88 as qualified to perform high complexity testing. Testing is performed in the [facility] laboratories located at [address] [place] [address]. Performed By: #### C OVSC #### [place] [address] Lab Specimen Source Nasal, Nasopharyngeal Normal [facility] Comment on above: Performed By: #### C OVSC #### [address] [place] [address] Complete Blood Count + Diffe eveline 07-07-2021 Basophils/100 WBC (Bld) 0.4 % 0.0 - 2.0 [facility] Work Phone: Erythrocyte distribution width (RBC) [Ratio] 13.9 % See Below [facility] Work Phone: Comment on above: Reference Range: 11. 5 - 14.5 Hematocrit (Bld) [Volume fraction] 39.1 % See Below [facility] Work Phone: Comment on above: Reference Range: 36. 0 - 46.0 Hemoglobin (Bld) [Mass/Vol] 11.7 g/dL below low threshold See Below [facility] Work Phone: Comment on above: Reference Range: 12. 0 - 16.0 Lymphocytes/100 WBC (Bld) 26.6 % See Below [facility] Work Phone: Comment on above: Reference Range: 13. 0 - 44.0 MCHC (RBC) [Mass/Vol] 29.9 g/dL below low threshold See Below [facility] Work Phone: Comment on above: Reference Range: 32. 0 - 36.0 MCV (RBC) [Entitic vol] 89 fL 80 - 100 [facility] Work Phone: Monocytes/100 WBC (Bld) 5.8 % 2.0 - 10.0 [facility] Work Phone: Neutrophils/100 WBC (Bld) 65.4 % See Below [facility] Work Phone: Comment on above: Reference Range: 40. 0 - 80.0 Platelets (Bld) [#/Vol] 243 10*3/uL 150 - 450 [facility] Work Phone: RBC (Bld) [#/Vol] 4.40 {x10E12/L} See Below [facility] Work Phone: Comment on above: Reference Range: 4.0 0 - 5.20 WBC (Bld) [#/Vol] 6.8 10*3/uL 4.4 - 11.3 MG-Seferino laryngol [employer] Work Phone: Complete Blood Count + Differential 0.03 {x10E9/L} See Below [facility] Work Phone: Comment on above: Reference Range: 0.0 0 - 0.10 Complete Blood Count + Differential 0.10 {x10E9/L} See Below [facility] Work Phone: Comment on above: Reference Range: 0.0 0 - 0.70 Complete Blood Count + Differential 0.40 {x10E9/L} See Below [facility] Work Phone: Comment on above: Reference Range: 0.1 0 - 1.00 Complete Blood Count + Differential 1.82 {x10E9/L} See Below [facility] Work Phone: Comment on above: Reference Range: 1.2 0 - 4.80 Complete Blood Count + Differential 4.47 {x10E9/L} See Below [facility] Work Phone: Comment on above: Reference Range: 1.2 0 - 7.70 Complete Blood Count + Differential 1.5 % 0.0 - 6.0 [facility] Work Phone: Complete Blood Count + Differential 0.3 % 0.0 - 0.9 [facility] Work Phone: Comment on above: Immature Granulocyte Count (IG) includes promyelocytes, myelocytes and metamyelocytes but does not include bands. Percent differential counts (%) should be interpreted in the context of the absolute cell counts (cells/L). Complete Blood Count + Differential 0.0 {/100_WBC} 0.0 - 0.0 [facility] Work Phone: Coronavirus 2019 RNA by PCR, Screening Asymptomticon 07-07-2021 Coronavirus 2019 RNA by PCR, Screening Asymptomtic Not detected Normal See Below [facility] Work Phone: Comment on above: SOURCE: Nasal, [...] make patient management decisions.Fact sheet for providers: https://www.fda.gov/media/914531/downloadFact sheet for patients: https://www.fda.gov/media/628358/downloadThis test has received FDA Emergency Use Authorization (EUA) and has been verified by [facility] ([facility]). This test is only authorized for the duration of time that circumstances exist to justify the authorization of the emergency use of in vitro diagnostic tests for the detection of SARS-CoV-2 virus and/or diagnosis of COVID-19 infection under section 564(b)(1) of the Act, 21 U.S.C. 360bbb-3(b)(1), unless the authorization is terminated or revoked sooner. [facility] is certified under CLIA-88 as qualified to perform high complexity testing. Testing is performed in the [facility] laboratories located at [address] [place] [address]. Covid 19 Resultson 1 SARS-CoV-2 (COVID-19) RNA [...] You may also be contacted by the [facility] to see if any of your [...] or Naproxen (Aleve) can also be used. Uanb-olr-qtgqgph cough and cold medicines can be used according to the instructions on the package. Some izjr-ebz-kezumqi medicines also contain acetaminophen. Make sure you [...] water are not available, use alcohol-based hand embedded systems designer. Avoid touching your eyes, nose, and mouth [...] 24 carson (more content not included)... Normal [facility] Established Visit (Otolaryng ology)on 07-07-2021 [...] Complaint Goiter, thyroid nodule History of Present Mxdhhqx31-fiwf-fcp female referred by Dr. Christian for evaluation [...] Jul 07 2021 12:41PM EST (Author) Normal [facility] - Chemistry and C hemistry - challengeon 07-07-2021 Albumin BCP dye [Mass/Vol] 4.0 g/dL 3.4 - 5.0 [facility] Work Phone: ALP [Catalytic activity/Vol] 49 U/L 33 - 110 [facility] Work Phone: ALT With P-5'-P [Catalytic activity/Vol] 5 U/L below low threshold 7 - 45 [facility] Work Phone: Comment on above: Patients treated wit h Sulfasalazine may generate falsely decreased results for ALT. Anion gap [Moles/Vol] 11 mmol/L 10 - 20 [facility] Work Phone: AST With P-5'-P [Catalytic activity/Vol] 13 U/L 9 - 39 [facility] Work Phone: Bilirubin [Mass/Vol] 0.5 mg/dL 0.0 - 1.2 [facility] Work Phone: Calcium [Mass/Vol] 8.8 mg/dL 8.6 - 10.3 [facility] laryngol [facility] Work Phone: Chloride [Moles/Vol] 106 mmol/L 98 - 107 [facility] Work Phone: CO2 [Moles/Vol] 24 mmol/L 21 - 32 MG-Otolar yngol [facility] Work Phone: Creatinine [Mass/Vol] 0.69 mg/dL See Below [facility] Work Phone: Comment on above: Reference Range: 0.5 0 - 1.05 Glucose [Mass/Vol] 101 mg/dL above high threshold 74 - 99 [facility] Work Phone: Potassium [Moles/Vol] 4.0 mmol/L 3.5 - 5.3 [facility] Work Phone: Protein [Mass/Vol] 7.1 g/dL 6.4 - 8.2 [facility] [facility] Work Phone: Sodium [Moles/Vol] 137 mmol/L 136 - 145 [facility] [facility] Work Phone: Urea nitrogen [Mass/Vol] 16 mg/dL 6 - 23 [facility] Work Phone: Laboratory - Coagulationon 1 09-06-2020 INR Coag (PPP) [Relative time] Canceled [facility] Work Phone: PT Coag (PPP) [Time] Canceled [facility] Work Phone: No Panel Informationon 07-07 >60 >60 [facility] Work Phone: Comment on above: CALCULATIONS OF ROSALIA MATED GFR ARE PERFORMED USING THE MDRD STUDY EQUATION FOR THE IDMS-TRACEABLE CREATININE METHODS. CLIN CHEM 2007;53:766-72 [email or web address] 1:8080 /musescripts/museweb.dll?R etrieveTestByDateTime?Nano iykPO=[id number]&Date=09-16&Time=10%3a44%3a00%3a 00&TestType=ECG&Site=12&Ou tputType=PDF&Ext=PDF [facility] Work Phone: Normal sinus rhythm [facility] ol[facility] Work Phone: Abnormal [facility] Work Phone: 438 1 [facility] Work Phone: 413 1 [facility] Work Phone: 198 1 [facility] Work Phone: 147 1 [facility] Work Phone: 218 1 [facility] Work Phone: 14 1 [facility] Work Phone: 18 1 [facility] Work Phone: 9 1 [facility] Work Phone: 59 1 [facility] Work Phone: 464 1 [facility] Work Phone: 390 1 [facility] Work Phone: 76 1 [facility] Work Phone: 142 1 [facility] Work Phone: 85 1 [facility] Work Phone: PT/INRon 07-07-2021 PROTHROMBIN TIME Canceled Normal [facility] Comment on above: Order Comment: TEST PT/INR WAS CANCELLED, 07/07/2021 12:20 SPECIMEN CLOTTED.PLEASE RESUBMITDUPLICATE ORDER. Performed By: #### P TINR #### [address] [place] [address] PT, INR Canceled Normal [facility] Comment on above: Order Comment: TEST PT/INR WAS CANCELLED, 07/07/2021 12:20 SPECIMEN CLOTTED.PLEASE RESUBMITDUPLICATE ORDER. Performed By: #### P TINR #### [address] [place] [address] Established Visit (Otolaryng ology)on 06-12-2021 Established Visit [...] Complaint Goiter, thyroid nodule History of Present Cnhilcl01-sojo-vyy female referred by Dr. Christian for evaluation [...] Jun 13 2021 4:51AM EST (Author) Normal [facility] No Panel Informationon 04-28 [facility]ol [facility] Work Phone: [facility] Surgical Pathology Depar tmenton 04-28-2021 [facility] Surgical Pathology Department Name LAURO PINTO Pathologist: MIGUEL GAMBLE MD Date of Procedure: 04/28/2021 Date Received: 04/28/2021 Date Reported 04/29/2021 Submitting Physician: EDY DOMINGUEZ MD Location: [facility] [place] Other External # FINAL DIAGNOSIS A. [facility] Lab [id number] (11/14/2020): LEFT THYROID FINE NEEDLE ASPIRATE: --BENIGN FOLLICULAR NODULAR (NODULAR HYPERPLASIA). Electronically Signed Out By MIGUEL GAMBLE MD/[facility] By the signature on this report, the individual or group listed as making the Final Interpretation/Diagnosis certifies that they have reviewed this case. Clinical History: FNA thyroid nodule Specimens Submitted As: A: [facility] [id number] (11/14/2020) Slide/Block Description Received from [email or web address], [address] [place] [id number], are thirteen (13) slides labeled [id number] Keep Slides: N Slides Returned: N Personal Consult: N Normal [facility] Comment on above: Performed By: #### U [facility] #### [facility] Surgical Pathology Department [id number] [facility] [address] Initial Visit (Otolaryngolog y)on 04-07-2021 Initial Visit [...] Complaint Goiter, thyroid nodule History of Present Tmfedqp34-muym-nxj female referred by Dr. Christian for evaluation [...] DAILY Vitals Vital Signs Recorded: 07Apr2021 02:27PM Cdnomwbbaxc00.2 F Sodrvkgp380 Coexspsmm55 Height6 ft 1 in Swlofe123 lb BMI Payaixcdct66.33 kg/m2 BSA Calculated2.68 Tobacco Useb) No Fall [...] May 04 2021 2:13PM EST (Author) Normal [facility] Tobacco Screening.on 021 Fall risk assessment a) No falls within the last year [facility] Work Phone: Tobacco use status CPHS b) No [facility] Work Phone: CTA CHEST WO W CONon [...] AMBREEN ZENDEJAS Date: 2020-08-28 22:10 Normal [facility] CBC AUTO DIFFon 08-28-2020 Basophils (Bld) [#/Vol] 0.0 103/ul Normal 0.0-0.1 [facility] Comment on above: Performed By: #### C BC #### [facility] [address] [place] [address] Aminata Lotus Basophils/100 WBC (Bld) 0.3 % Normal 0.2-2.0 [facility] Comment on above: Performed By: #### C BC #### [facility] [address] [place] [address] Aminata Lotus Eosinophils (Bld) [#/Vol] 0.0 103/ul Normal 0.0-0.7 [facility] Comment on above: Performed By: #### C BC #### [facility] [address] [place], [place] [address] Aminata Lotus Eosinophils/100 WBC (Bld) 0.2 % Critically low 0.9-7.0 [facility] Comment on above: Performed By: #### C BC #### [facility] [address] [place] [address] Aminata Lotus Erythrocyte distribution width (RBC) [Ratio] 13.6 % Normal 11.0-15.0 [facility] Comment on above: Performed By: #### C BC #### [facility] [address] [place] [phone] Aminata Lotus Hematocrit (Bld) [Volume fraction] 39.9 % Normal 36.0-48.0 [facility] Comment on above: Performed By: #### C BC #### [facility] [address] [place] [phone] Aminata Lotus Hemoglobin (Bld) [Mass/Vol] 12.5 g/dL Normal 12.0-16.0 [facility] Comment on above: Performed By: #### C BC #### [facility] [address] [phone] Aminata Lotus IG # 0.02 10e3/ul Normal 0.00-0.03 [facility] Comment on above: Performed By: #### C BC #### [facility] [address] [place] [address] Aminata Lotus IG % 0.2 % Normal 0.0-0.5 [facility] Comment on above: Performed By: #### C BC #### [facility] [address] [phone] Aminata Lotus Lymphocytes (Bld) [#/Vol] 2.3 103/ul Normal 1.2-3.8 [facility] Comment on above: Performed By: #### C BC #### [facility] [address] [place], [place] [phone] Aminata Lotus Lymphocytes/100 WBC (Bld) 20.1 % Critically low 20.5-60.0 [facility] Comment on above: Performed By: #### C BC #### [facility] [address] [phone] Aminata Lotus MANUAL DIFF REQ NO Normal [facility] Comment on above: Performed By: #### C BC #### [facility] [address] [place], [place] [phone] Aminata Lotus MCH (RBC) [Entitic mass] 27.0 pg Normal 26.7-34.0 [facility] Comment on above: Performed By: #### C BC #### [facility] [address] [place], [place] [address] Aminata Lotus MCHC (RBC) [Mass/Vol] 31.3 g/dL Normal 29.9-35.2 [facility] Comment on above: Performed By: #### C BC #### [facility] [address] [place], [place] [address] Aminata Lotus MCV (RBC) [Entitic vol] 86.2 fL Normal 81.0-99.0 [facility] Comment on above: Performed By: #### C BC #### [facility] [address] [place] [address] Aminata Lotus Monocytes (Bld) [#/Vol] 0.5 103/ul Normal 0.3-0.8 [facility] Comment on above: Performed By: #### C BC #### [facility] [address] [place] [address] Aminata Lotus Monocytes/100 WBC (Bld) 4.5 % Normal 1.7-12.0 [facility] Comment on above: Performed By: #### C BC #### [facility] [address] [place] [address] Aminata Lotus Neutrophils (Bld) [#/Vol] 8.4 103/ul Critically high 1.4-6.5 [facility] Comment on above: Performed By: #### C BC #### [facility] [address] [place] [address] Aminata Lotus Neutrophils/100 WBC (Bld) 74.7 % Normal 43.0-75.0 [facility] Comment on above: Performed By: #### C BC #### [facility] [address] [place] [address] Aminata Lotus Platelet mean volume (Bld) [Entitic vol] 10.6 fL Normal 9.5-13.5 [facility] Comment on above: Performed By: #### C BC #### [facility] [address] [place] [address] Aminata Lotus Platelets (Bld) [#/Vol] 293 103/ul Normal 150-450 [facility] Comment on above: Performed By: #### C BC #### [facility] [address] [place] [address] Aminata Gautam RBC (Bld) [#/Vol] 4.63 106/ul Normal 4.20-5.40 [facility] Comment on above: Performed By: #### C BC #### [facility] [address] [place] [address] Aminata Gautam WBC (Bld) [#/Vol] 11.2 103/ul Critically high 4.0-11.0 [facility] Comment on above: Performed By: #### C BC #### [facility] [address] [place], [place] [phone] Aminata Gautam CULTURE URINEon 08-28-2020 CULTURE URINE Culture Observations : NORMAL GENITAL FRANK. NO POTENTIAL PATHOGENS SEEN [facility] Comment on above: Performed By: #### U RCX #### [facility] [address] [place] [address] Aminata Gautam ER URINE PROFILEon 0 Bilirubin [Mass/Vol] Negative Normal NEGATIVE [facility] Comment on above: Performed By: #### U MICRO, ERUR #### [facility] [address] [place] [address] Aminata Gautam BLOOD TRACE-INTACT Abnormal NEGATIVE [facility] Comment on above: Performed By: #### U MICRO, ERUR #### [facility] [address] [place] [address] Aminata Gautam Clarity (U) CLEAR Normal CLEAR [facility] Comment on above: Performed By: #### U MICRO, ERUR #### [facility] [address] [place] [address] Aminata Gautam Color (U) LT. YELLOW Normal YELLOW [facility] Comment on above: Performed By: #### U MICRO, ERUR #### [facility] [address] [place] [address] Aminata Gautam ERUAHD A micrscopic examina tion will be performed if indicated. Normal [facility] Comment on above: Performed By: #### U MICRO, ERUR #### [facility] [address] [place] [address] Aminata Lotus Glucose [Mass/Vol] Negative Normal NEGATIVE [facility] Comment on above: Performed By: #### U MICRO, ERUR #### [facility] [address] [place] [address] Aminata Lotus Ketones Ql (U) Negative Normal NEGATIVE [facility] Comment on above: Performed By: #### U MICRO, ERUR #### [facility] [address] [place] [address] Aminata Lotus Nitrite Ql (U) Negative Normal NEGATIVE [facility] Comment on above: Performed By: #### U MICRO, ERUR #### [facility] [address] [place] [address] Aminata Lotus pH (Bld) 7.5 Normal 5-9 [facility] Comment on above: Performed By: #### U MICRO, ERUR #### [facility] [address] [place] [address] Aminata Lotus Protein (U) [Mass/Vol] Negative Normal NEGATIVE/ TRACE [facility] Comment on above: Performed By: #### U MICRO, ERUR #### [facility] [address] [place] [address] Aminata Lotus SPEC GRAVITY 1.015 Normal 1.005-<=1.0 25 [facility] Comment on above: Performed By: #### U MICRO, ERUR #### [facility] [address] [place] [address] Aminata Lotus UR MICRO IND INDICATED Normal [facility] Comment on above: Performed By: #### U MICRO, ERUR #### [facility] [address] [place] [address] Aminata Lotus Urobilinogen Qn (U) 0.2 EU/dl Normal 0.2 - 1.0 [facility] Comment on above: Performed By: #### U MICRO, ERUR #### [facility] [address] [place] [address] Aminata Lotus WBC (Bld) [#/Vol] SMALL Abnormal NEGATIVE [facility] Comment on above: Performed By: #### U MICRO, ERUR #### [facility] [address] [place], [place] [address] Aminata Lotus PREG HCG QUALon 08-28-2020 , QUAL Negative Normal NEGATIVE [facility] Comment on above: Performed By: #### C BC #### [facility] [address] [place], [place] [address] Aminatayohan Baileyen PROF 14(COMP METB)on 020 Albumin [Mass/Vol] 3.7 g/dL Normal 3.5-5.0 [facility] Comment on above: Performed By: #### H STROPN, TSH, CMP #### [facility] [address] [place] [phone] Aminata Lotus Albumin/Globulin [Mass ratio] 1.0 {ratio} Normal [facility] Comment on above: Performed By: #### H STROPN, TSH, CMP #### [facility] [address] [place] [phone] Aminata Lotus ALP [Catalytic activity/Vol] 88 U/L Normal 38-126 [facility] Comment on above: Performed By: #### H STROPN, TSH, CMP #### [facility] [address] [phone] Aminata Lotus ALT [Catalytic activity/Vol] 13 U/L Normal 9-52 [facility] Comment on above: Performed By: #### H STROPN, TSH, CMP #### [facility] [address] [phone] Aminata Lotus Anion gap [Moles/Vol] 14.5 mmol/L Normal [facility] Comment on above: Performed By: #### H STROPN, TSH, CMP #### [facility] [address] [phone] Aminata Lotus AST [Catalytic activity/Vol] 16 U/L Normal 14-36 [facility] Comment on above: Performed By: #### H STROPN, TSH, CMP #### [facility] [address] [phone] Aminata Lotus Bilirubin Ql (U) 0.7 mg/dL Normal 0.2-1.3 [facility] Comment on above: Performed By: #### H STROPN, TSH, CMP #### [facility] [address] [place] [address] Aminata Lotus Calcium [Mass/Vol] 8.8 mg/dL Normal 8.4-10.2 [facility] Comment on above: Performed By: #### H STROPN, TSH, CMP #### [facility] [address] [address] Aminata Lotus Chloride [Moles/Vol] 106 mmol/L Normal 98-107 [facility] Comment on above: Performed By: #### H STROPN, TSH, CMP #### [facility] [address] [place] [address] Aminata Lotus CO2 [Moles/Vol] 24.3 mmol/L Normal 22.0-30.0 [facility] Comment on above: Performed By: #### H STROPN, TSH, CMP #### [facility] [address] [place] [address] Aminata Lotus Creatinine [Mass/Vol] 0.96 mg/dL Normal 0.52-1.04 [facility] Comment on above: Performed By: #### H STROPN, TSH, CMP #### [facility] [address] [place] [address] Aminata Lotus EGFR-AF SOMALI >60 Normal >=60 [facility] Comment on above: Performed By: #### H STROPN, TSH, CMP #### [facility] [address] [place] [address] Aminata Lotus EGFR-NON AF SOMALI >60 Normal >=60 [facility] Comment on above: Performed By: #### H STROPN, TSH, CMP #### [facility] [address] [place] [address] Aminata Lotus Globulin (S) [Mass/Vol] 3.8 g/dL Normal [facility] Comment on above: Performed By: #### H STROPN, TSH, CMP #### [facility] [address] [place] [address] Aminata Lotus Glucose [Mass/Vol] 141 mg/dL Critically high 74-106 T [facility] Comment on above: Performed By: #### H STROCHOCO, TSH, CMP #### [facility] [address] [place] [address] Aminata Lotus Potassium [Moles/Vol] 3.8 mmol/L Normal 3.4-5.0 [facility] Comment on above: Performed By: #### H STROCHOCO, TSH, CMP #### [facility] [address] [place] [address] Aminata Lotus Protein [Mass/Vol] 7.5 g/dL Normal 6.1-8.2 [facility] Comment on above: Performed By: #### H STROCHOCO TSH, CMP #### [facility] [address] [place] [address] Aminata Lotus Sodium [Moles/Vol] 141 mmol/L Normal 137-145 [facility] Comment on above: Performed By: #### H STROPN, TSH, CMP #### [facility] [address] [place] [address] Aminata Lotus Urea nitrogen [Mass/Vol] 10.0 mg/dL Normal 7.0-17.0 [facility] Comment on above: Performed By: #### H STROCHOCO TSH, CMP #### [facility] [address] [place] [address] Aminata Lotus Urea nitrogen/Creatinin e [Mass ratio] 10.4 mg/mg Normal [facility] Comment on above: Performed By: #### H STROCHOCO, TSH, CMP #### [facility] [address] [place] [address] Aminata Lotus PROTIMEon 08-28-2020 INR Coag (PPP) [Relative time] 1.00 {INR} Normal [facility] Comment on above: Performed By: #### P T, PTT #### [facility] [address] [place] [address] Aminata Lotus PT Coag (PPP) [Time] SEE BELOW Normal [facility] Comment on above: Result Comment: TANYA RED INR: 2.0 - 3.0 CONDITIONS NOT LISTED BELOW 2.5 - 3.5 FOR PROSTHETIC HEART VALVE REPLACEMENT 2.5 - 3.5 RECURRENT THROMBOSIS Performed By: #### P T, PTT #### [facility] [address] [address] Aminata Gautam PT Coag (PPP) [Time] 10.9 s Normal 9.0-11.6 [facility] Comment on above: Performed By: #### P T, PTT #### [facility] [address] [address] Aminata Gautam PTTon 08-28-2020 aPTT Coag (Bld) [Time] 23.9 s Normal 22.3-36.2 [facility] Comment on above: Performed By: #### P T, PTT #### [facility] [address] [place] [address] Aminata Gautam TROPONIN, HIGH SENSITIVITYon 08-28-2020 HSTROP <4.0 Normal 4.0-35.5 [facility] Comment on above: Result Comment: CUT- OFF POINTS HAVE BEEN ESTABLISHED BASED ON THE FOURTH UNIVERSAL DEFINITIONS OF MYOCARDIAL INFARCTION. THE UPPER REFERENCE LIMIT (URL) OF TROPONIN, DEFINED THE 99TH PERCENTILE OF cTnI DISTRIBUTION IN A REFERENCE POPULATION, HAS BEEN CONFIRMED THE DECISION THRESHOLD FOR VA DIAGNOSIS. 90TH PERCENTILE (C=9386)= 35.6 - 109.2 PG/ML 99TH PERCENTILE = 51.4 PG/ML NOTE: HIGH-SENSITIVITY TROPONIN ASSAY IS NOT INTENDED TO BE USED IN ISOLATION BUT SHOULD BE INTERPRETED IN CONJUNCTION WITH OTHER DIAGNOSTIC AND CLINICAL INFORMATION. Performed By: #### H STROPN, TSH, CMP #### [facility] [address] [place] [address] Aminata Gautam TSHon 08-28-2020 TSH Qn 2.034 uIU/mL Normal 0.470-4.680 [facility] Comment on above: Performed By: #### H STROPN, TSH, CMP #### [facility] [address] [place] [address] Aminata Gautam TSH Qn SEE BELOW Normal [facility] Comment on above: Result Comment: <0.3 4 UIU/ml HYPERTHYROID 0.34-5.60 UIU/ml EUTHYROID >5.60 UIU/ml HYPOTHYROID Performed By: #### H ELHAMPN, TSH, CMP #### [facility] [address] [id number] Aminata Lotus URINE MICROSCOPIC ONLYon Bacteria LM.HPF (Urine sed) [#/Area] NONE SEEN Normal NONE SEEN [facility] Comment on above: Performed By: #### U MICRO, ERUR #### [facility] [address] [place] [address] Aminata Lotus CAST SEEN Abnormal NONE SEEN [facility] Comment on above: Performed By: #### U MICRO, ERUR #### [facility] [address] [place] [address] Aminata Lotus Crystals LM Nom (Urine sed) NONE SEEN Normal NONE SEEN [facility] Comment on above: Performed By: #### U MICRO, ERUR #### [facility] [address] [place] [address] Aminata Lotus CULTURE INDICATED Normal [facility] Comment on above: Performed By: #### U MICRO, ERUR #### [facility] [address] [place] [address] Aminata Lotus Epithelial cells LM.HPF (Urine sed) [#/Area] FEW Abnormal NONE SEEN /RARE [facility] Comment on above: Performed By: #### U MICRO, ERUR #### [facility] [address] [place] [address] Aminata Lotus HYALINE CAST RARE Normal [facility] Comment on above: Performed By: #### U MICRO, ERUR #### [facility] [address] [place] [address] Aminata Lotus MUCOUS NONE SEEN Normal NONE SEEN [facility] Comment on above: Performed By: #### U MICRO, ERUR #### [facility] [address] [place] [address] Aminata Lotus RBC (U) [#/Vol] 2-5 Abnormal 0-2 [facility] Comment on above: Performed By: #### U MICRO, ERUR #### [facility] [address] [place] [address] Aminata Lotus WBC (Bld) [#/Vol] 5-10 Abnormal NONE SEEN The [facility] Comment on above: Performed By: #### U MICRO, ERUR #### [facility] [address] [place] [address] Aminata Gautam OPERATIVE REPORTon 7 OPERATIVE REPORT Name: LIAN PINTOR: [id number]: IDANIA MOBLEY D.P.M.DATE OF SURGERY: 02/24/2017ANESTHESIA: General.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 The leg was then dressed [facility] BLAIR,[id number] [address] [place] [id number]: ANA M Knox REPORTwith sterile gauze, Rojas, Kerlix, and an William bandage. The patient toleratedthe procedure and anesthesia well in apparent satisfactory condition, wastransferred to the PACU. All vital signs were stable and vascular statusintact to her digits.COMPLICATIONS: None.PATHOLOGICAL SPECIMENS: External fixator, right leg. RADHA KNOX/[facility]/[id number]: 03/16/2017 10:56:16 E/S: DELMA Knox03/25/17 1448Signature on File ___[facility] [id number] [address] [place] [address] [id number] DR: ANA M Knox REPORT Normal [facility] Vital Signs Date Time Vital Sign Value Performing Clinician Facility 05-29-2025 14: Body mass index (BMI) [Ratio] 40.24 kg/m2 [employer] Work Phone: [facility] 05-29-2025 14: Body weight 138.35 kg [employer] Work Phone: [facility] 05-29-2025 14:040 Diastolic blood pressure 74 mm[Hg] Jorge Lauren DO Work Phone: [facility] 05-29-2025 14:22-0400 Systolic blood pressure 110 mm[Hg] Jorge Lauren DO Work Phone: [facility] 04-18-2025 14:11-0400 Body mass index (BMI) [Ratio] 39.86 kg/m2 Jorge Lauren DO Work Phone: [facility] 04-18-2025 14:11-0400 Body weight 137.04 kg Jorge Lauren DO Work Phone: [facility] 04-18-2025 14:11-0400 Diastolic blood pressure 70 mm[Hg] Jorge Lauren DO Work Phone: [facility] 04-18-2025 14:11-0400 Systolic blood pressure 108 mm[Hg] Jorge Lauren DO Work Phone: [facility] 03-01-2025 13:08-0400 Body height 185.4 cm Kyler Carvajal PA Work Phone: [facility] 03-01-2025 13:08-0400 Body mass index (BMI) [Ratio] 39.71 kg/m2 Kyler Carvajal PA Work Phone: [facility] 03-01-2025 13:08-0400 Body weight 136.53 kg Kyler Carvajal PA Work Phone: [facility] 03-01-2025 13:08-0400 Diastolic blood pressure 80 mm[Hg] Kyler Carvajal PA Work Phone: [facility] 03-01-2025 13:08-0400 Heart rate 70 /min Kyler Carvajal PA Work Phone: [facility] 03-01-2025 13:08-0400 Respiratory rate 16 /min Kyler Carvajal PA Work Phone: [facility] 03-01-2025 13:08-0400 SaO2% (BldA) [Mass fraction] 96 % Kyler Carvajal PA Work Phone: [facility] 03-01-2025 13:08-0400 Systolic blood pressure 122 mm[Hg] Kyler FRANCO Work Phone: [facility] 02-28-2025 13:15-0400 Body height 185.4 cm Thi Stephens MD Work Phone: [facility] 02-28-2025 13:15-0400 Body mass index (BMI) [Ratio] 40.11 kg/m2 Thi Stephens MD Work Phone: [facility] 02-28-2025 13:15-0400 Body weight 137.89 kg Thi Stephens MD Work Phone: [facility] 02-28-2025 13:15-0400 Heart rate 73 /min Thi Stephens MD Work Phone: [facility] 02-28-2025 13:15-0400 Respiratory rate 16 /min Thi Stephens MD Work Phone: [facility] 02-28-2025 13:15-0400 SaO2% (BldA) [Mass fraction] 99 % Thi Stephens MD Work Phone: [facility] 11-30-2024 09:00-0400 Body height 185.4 cm Kyler FRANCO Work Phone: [facility] 11-30-2024 09:00-0400 Body mass index (BMI) [Ratio] 39.98 kg/m2 Kyler FRANCO Work Phone: [facility] 11-30-2024 09:00-0400 Body weight 137.44 kg Kyler FRANCO Work Phone: [facility] 11-30-2024 09:00-0400 Diastolic blood pressure 80 mm[Hg] Kyler FRANCO Work Phone: [facility] 11-30-2024 09:00-0400 Heart rate 82 /min Kyler FRANCO Work Phone: [facility] 11-30-2024 09:00-0400 Respiratory rate 18 /min Kyler FRANCO Work Phone: [facility] 11-30-2024 09:00-0400 SaO2% (BldA) [Mass fraction] 99 % Kyler FRANCO Work Phone: [facility] 11-30-2024 09:00-0400 Systolic blood pressure 118 mm[Hg] Kyler FRANCO Work Phone: [facility] 11-01-2024 13:03-0500 Body mass index (BMI) [Ratio] 39.46 kg/m2 Jorge Lauren DO Work Phone: [facility] 11-01-2024 13:03-0500 Body weight 135.68 kg Jorge Lauren DO Work Phone: [facility] 11-01-2024 13:03-0500 Diastolic blood pressure 74 mm[Hg] Jorge Lauren DO Work Phone: [facility] 11-01-2024 13:03-0500 Systolic blood pressure 120 mm[Hg] Jorge Lauren DO Work Phone: [facility] 10-26-2024 13:57-0500 Body height 182.9 cm Kyler FRANCO Work Phone: [facility] 10-26-2024 13:57-0500 Body mass index (BMI) [Ratio] 40.96 kg/m2 Kyler FRANCO Work Phone: [facility] 10-26-2024 13:57-0500 Body weight 136.99 kg Kyler Carvajal PA Work Phone: [facility] 10-26-2024 13:57-0500 Diastolic blood pressure 62 mm[Hg] Kyler FRANCO Work Phone: [facility] 10-26-2024 13:57-0500 Heart rate 71 /min Kyler FRANCO Work Phone: [facility] 10-26-2024 13:57-0500 Respiratory rate 18 /min Kyler Carvajal PA Work Phone: [facility] 10-26-2024 13:57-0500 SaO2% (BldA) [Mass fraction] 100 % Kyler Carvajal PA Work Phone: [facility] 10-26-2024 13:57-0500 Systolic blood pressure 123 mm[Hg] Kyler Carvajal PA Work Phone: [facility] 09-19-2024 13:21-0500 Body height 185.4 cm Jorge Lauren DO Work Phone: [facility] 09-19-2024 13:21-0500 Body mass index (BMI) [Ratio] 38.37 kg/m2 Jorge Lauren DO Work Phone: [facility] 09-19-2024 13:21-0500 Body weight 131.91 kg Jorge Lauren DO Work Phone: [facility] 09-19-2024 13:21-0500 Diastolic blood pressure 70 mm[Hg] Jorge Lauren DO Work Phone: [facility] 09-19-2024 13:21-0500 Systolic blood pressure 120 mm[Hg] Jorge Lauren DO Work Phone: [facility] 09-07-2024 14:37-0500 Body height 185.4 cm Kyler Carvajal PA Work Phone: [facility] 09-07-2024 14:37-0500 Body mass index (BMI) [Ratio] 38.39 kg/m2 Kyler Carvajal PA Work Phone: [facility] 09-07-2024 14:37-0500 Body weight 132 kg Kyler Carvajal PA Work Phone: [facility] 09-07-2024 14:37-0500 Diastolic blood pressure 83 mm[Hg] Kyler Carvajal PA Work Phone: [facility] 09-07-2024 14:37-0500 Heart rate 80 /min Kyler Nienberg PA Work Phone: [facility] 09-07-2024 14:37-0500 Respiratory rate 16 /min Kyler Nienberg PA Work Phone: [facility] [employer] [facility] 09-07-2024 14:37-0500 SaO2% (BldA) [Mass fraction] 100 % Kyler Nienberg PA Work Phone: [facility] [employer] 09-07-2024 14:37-0500 Systolic blood pressure 126 mm[Hg] Kyler Nienberg PA Work Phone: [facility] 05-18-2024 11:25-0400 Body height 185.4 cm Kyler Nienberg PA Work Phone: [facility] [employer] 05-18-2024 11:25-0400 Body mass index (BMI) [Ratio] 38.26 kg/m2 Kyler Nienberg PA Work Phone: [facility] [employer] 05-18-2024 11:25-0400 Body weight 131.54 kg Kyler Nienberg PA Work Phone: [facility] 05-18-2024 11:25-0400 Diastolic blood pressure 85 mm[Hg] Kyler Nienberg PA Work Phone: [facility] [employer] 05-18-2024 11:25-0400 Heart rate 71 /min Kyler Nienberg PA Work Phone: [facility] 05-18-2024 11:25-0400 Respiratory rate 20 /min Kyler Nienberg PA Work Phone: [facility] [facility] 05-18-2024 11:25-0400 Systolic blood pressure 118 mm[Hg] Kyler Nienberg PA Work Phone: [facility] 12-19-2021 16:25-0400 Body height 185.42 cm Toney P House Work Phone: MP-Rzicyrilaghuln-Sa [address] Work Phone: 12-19-2021 16:25-0400 Body mass index (BMI) [Ratio] 45.33 kg/m2 Toney P House Work Phone: GH-Ixablgyjtdohuq-Pa [address] Work Phone: 12-19-2021 16:25-0400 Body surface area Derived from formula 2.71 m2 Toney P House Work Phone: BD-Fwwtavkyfkqwxb-Oj [address] Work Phone: 12-19-2021 16:25-0400 Body temperature 96.8 [degF] Toney P House Work Phone: NV-Efdqqnhvqkpmur-Sl [address] Work Phone: 12-19-2021 16:25-0400 Body weight 155.86 kg Toney P House Work Phone: AI-Xneuvnbipotrnh-Ij [address] Work Phone: 10-27-2021 09:32-0500 Body height 185.42 cm No PCP None MP-Otolaryngolog y-We [address] [facility] Work Phone: 10-27-2021 09:32-0500 Body mass index (BMI) [Ratio] 45.25 kg/m2 No PCP None CJ-Pfffweswxunlvu-Ra [address] [facility] [address] Work Phone: 10-27-2021 09:32-0500 Body surface area Derived from formula 2.71 m2 No PCP None YI-Yiwpeewpothdln-Kl [address] [facility] [address] Work Phone: 10-27-2021 09:32-0500 Body temperature 97.9 [degF] No PCP None MP-Otolaryngolo gy-We [address] [facility] [address] Work Phone: 10-27-2021 09:32-0500 Body weight 155.58 kg No PCP None MP-Otolaryngolog y-We [address] [facility] [address] Work Phone: 10-27-2021 09:32-0500 Diastolic blood pressure 83 mm[Hg] No PCP None OO-Exruvwwytjapwm-Mt [address] [facility] [address] Work Phone: 10-27-2021 09:32-0500 Systolic blood pressure 133 mm[Hg] No PCP None SG-Lpawwvohlznetc-Do [address] [facility] [address] Work Phone: 10-27-2021 09:32-0500 0 1 No PCP None MP-Otolaryngolog y-We [address] [facility] [address] Work Phone: Comment on above: [facility] 08-16-2021 12:45-0500 Body height 185.42 cm Melody Roma Other [facility] Other 08-16-2021 12:45-0500 Body mass index (BMI) [Ratio] 41.55 kg/m2 Melody Roma Other [facility] Other 08-16-2021 12:45-0500 Body temperature 97.6 [degF] Melody Roma Other [facility] Other 08-16-2021 12:45-0500 Body weight 142.88 kg Melody Roma Other [facility] Other 08-16-2021 12:45-0500 Respiratory rate 18 /min Melody Roma Other [facility] Other 08-16-2021 12:45-0500 SaO2% (BldA) [Mass fraction] 98 % Melody Brandon Other [facility] Other 07-21-2021 14:48-0500 Body height 185.42 cm No PCP None MG-Otolaryngolog y-We [place] Work Phone: 07-21-2021 14:48-0500 Body mass index (BMI) [Ratio] 44.59 kg/m2 No PCP None DG-Xyzhbzbfzzjcyu-He [address] Work Phone: 07-21-2021 14:48-0500 Body surface area Derived from formula 2.69 m2 No PCP None OM-Mafutqtfcdiios-Dl [address] Work Phone: 07-21-2021 14:48-0500 Body temperature 97.9 [degF] No PCP None MG-Otolaryngolo gy-We [place] Work Phone: 07-21-2021 14:48-0500 Body weight 153.32 kg No PCP None MG-Otolaryngolog y-We [place] Work Phone: 07-21-2021 14:48-0500 Diastolic blood pressure 81 mm[Hg] No PCP None KC-Xzocorlrcrcftd-Xd [address] Work Phone: 07-21-2021 14:48-0500 Systolic blood pressure 120 mm[Hg] No PCP None ZJ-Ppicsyfaucnfty-Cf [place] Work Phone: 07-21-2021 14:48-0500 2 1 No PCP None MG-Otolaryngolog y-We [address] Work Phone: Comment on above: [facility] 04-07-2021 14:27-0400 Body height 185.42 cm No PCP None MG-Otolaryngolog y-We [place] Work Phone: 04-07-2021 14:27-0400 Body mass index (BMI) [Ratio] 44.33 kg/m2 No PCP None EY-Nylttedfnibsbq-Ia [place] Work Phone: 04-07-2021 14:27-0400 Body surface area Derived from formula 2.68 m2 No PCP None GA-Xdvxnkcoeytzlm-Hc [address] Work Phone: 04-07-2021 14:27-0400 Body temperature 98.2 [degF] No PCP None MG-Otolaryngolo gy-We [place] Work Phone: 04-07-2021 14:27-0400 Body weight 152.41 kg No PCP None MG-Otolaryngolog y-We [place] Work Phone: 04-07-2021 14:27-0400 Diastolic blood pressure 85 mm[Hg] No PCP None SB-Prkivgbnvswjoh-Ap [address] Work Phone: 04-07-2021 14:27-0400 Systolic blood pressure 133 mm[Hg] No PCP None ZV-Fvkumyujndguuo-Yd [address] Work Phone: 04-07-2021 14:27-0400 0 1 No PCP None MG-Otolaryngolog y-We [place] Work Phone: Comment on above: [facility] Encounters Encounter Date Encounter Type Care Provider Facility Start: 05-29-2025 End: 05-29-2025 Patient encounter procedure Jorge Lauren DO Work Phone: [facility] Comment on above: Pre-op examination; Menorrhagia with regular cycle; Pelvic pain; Dysmenorrhea; Dyspareunia in female; Well woman exam with routine gynecological exam; Breast cancer screening by mammogram Start: 05-29-2025 End: 05-29-2025 Preprocedural examination done Jorge Lauren DO Work Phone: [facility] Start: 05-15-2025 Encounter for genera l adult medical examination without abnormal findings DO [facility] Start: 05-15-2025 End: 05-15-2025 ambulatory DO [facility] Facility:[facility] Start: 04-18-2025 End: 04-18-2025 Bamboo flowsheet Jorge Lauren DO Work Phone: [facility] Start: 04-18-2025 End: 04-18-2025 Bamboo flowsheet Jorge Lauren DO Work Phone: [facility] Start: 04-18-2025 End: 04-18-2025 Office outpatient visit 15 minutes Jorgefederica Bermano DO Work Phone: [facility] Comment on above: Dysfunctional uterin e bleeding Start: 04-18-2025 End: 04-18-2025 ambulatory JORGE LAUREN Not Available Start: 04-12-2025 End: 04-12-2025 ambulatory [facility] Start: 03-30-2025 End: 03-30-2025 ambulatory ZEESHAN Renteria PERRY [facility] Start: 03-27-2025 ambulatory DO TONEY MONTOYA Faci lity:[facility] Start: 03-01-2025 End: 03-01-2025 Office outpatient visit 15 minutes [facility] PA Work Phone: [facility] Comment on above: Disorder of sacrum ( Primary Dx) Start: 03-01-2025 End: 03-01-2025 ambulatory [facility] Start: 02-28-2025 End: 02-28-2025 Bamboo flowsheet Thi Stephens MD Work Phone: [facility] Start: 02-28-2025 End: 02-28-2025 Bamboo flowsheet Thi Stephens MD Work Phone: [facility] Start: 02-28-2025 End: 02-28-2025 Office outpatient visit 25 minutes Thi Stephens MD Work Phone: [facility] Comment on above: Postoperative hypoth yroidism (Primary Dx); Papillary thyroid carcinoma (HCC); Vitamin D deficiency; Encounter for dietary consultation; Class 3 severe obesity due to excess calories without serious comorbidity with body mass index (BMI) of 40.0 to 44.9 in adult ([facility]) Start: 02-28-2025 End: 02-28-2025 ambulatory THI STEPHENS Not Available Start: 02-12-2025 ambulatory TONEY MONTOYA Facilit y:[facility] Start: 11-30-2024 End: 11-30-2024 Office outpatient visit 15 minutes Kyler FRANCO Work Phone: [facility] Comment on above: Lumbar spondylosis ( Primary Dx) Start: 11-30-2024 End: 11-30-2024 ambulatory KYLER CARVAJAL [facility] Start: 11-17-2024 End: 11-17-2024 ambulatory ZEESHAN PERRY [facility] Start: 11-10-2024 End: 11-10-2024 ambulatory Jorge Lauren Facility:[facility] Start: 11-10-2024 End: 11-10-2024 Departed Referred Sofiya Cole MD Work Phone: [facility] Start: 11-03-2024 End: 11-05-2024 Clinisync Result Encounter [...] 11-01-2024 ambulatory Sofiya Cole MD Work Phone: [facility] Work Phone: Start: 11-01-2024 End: 11-01-2024 Departed Referred Sofiya Cole MD Work Phone: [facility] Start: 10-26-2024 End: 10-26-2024 Office outpatient visit 25 minutes Kyler FRANCO Work Phone: [facility] Comment on above: Disorder of sacrum ( Primary Dx) Start: 10-26-2024 End: 10-26-2024 ambulatory KYLER CARVAJAL [facility] Start: 09-19-2024 End: 09-19-2024 Bamboo flowsheet Jorge Lauren DO Work Phone: [facility] Start: 09-19-2024 End: 09-19-2024 Bamboo flowsheet Jorge Lauren DO Work Phone: [facility] Start: 09-19-2024 End: 09-19-2024 Office outpatient new 20 minutes Jorge Lauren DO Work Phone: [facility] Comment on above: Dysfunctional uterin e bleeding; Iron deficiency anemia, unspecified iron deficiency anemia type Start: 09-19-2024 End: 09-19-2024 ambulatory JORGE LAUREN Not Available Start: 09-11-2024 End: 09-11-2024 Orders Only Kyler FRANCO Work Phone: [facility] Comment on above: Postprocedural hypot hyroidism; Malignant neoplasm of thyroid gland (CMS-HCC) Start: 09-11-2024 End: 09-11-2024 ambulatory THI STEPHENS Not Available Start: 09-11-2024 End: 09-11-2024 Office outpatient visit 25 minutes Thi Stephens MD Work Phone: [facility] Comment on above: Postoperative hypoth yroidism (CMS/HCC) (Primary Dx); Papillary thyroid carcinoma (CMS/HCC); Vitamin D deficiency; Encounter for dietary consultation; Class 3 severe obesity due to excess calories without serious comorbidity with body mass index (BMI) of 40.0 to 44.9 in adult (CMS/HCC) Start: 09-07-2024 End: 09-07-2024 Office outpatient visit 15 minutes Kyler FRANCO Work Phone: [place] [facility] Comment on above: 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) Start: 09-07-2024 End: 09-07-2024 ambulatory KYLER DUMONTELIZABETH [facility] Start: 08-14-2024 End: 08-14-2024 ambulatory TONEY Melara [facility] Start: 08-11-2024 End: 08-11-2024 ambulatory [facility] Start: 08-09-2024 End: 08-18-2024 Telephone encounter Lata Mary RN [facility] Start: 08-07-2024 End: 08-07-2024 ambulatory TONEY MONTOYA Facility:[facility] Start: 08-01-2024 End: 08-01-2024 ambulatory TONEY Melara [facility] Start: 07-25-2024 End: 07-25-2024 Departed Referred Sofiya Cole MD Work Phone: [facility] Start: 07-25-2024 End: 07-25-2024 ambulatory Sofiya Cole MD Work Phone: [facility] Work Phone: Start: 07-25-2024 End: 07-25-2024 ambulatory Korey [facility] Facility:[facility] Start: 07-25-2024 End: 07-25-2024 ambulatory Korey [place] Facility: [facility] Start: 06-28-2024 End: 06-28-2024 ambulatory TONEY MONTOYA Facility:[facility] Start: 06-22-2024 End: 06-22-2024 ambulatory TONEY MONTOYA [facility] Start: 06-19-2024 End: 06-19-2024 ambulatory TONEY MONTOYA [facility] Start: 06-17-2024 End: 06-17-2024 ambulatory ZEESHAN Myra [facility] Start: 06-16-2024 End: 06-16-2024 ambulatory [facility] Start: 06-05-2024 End: 06-05-2024 ambulatory DO TONEY MONTOYA Facility:[facility] Start: 05-29-2024 End: 08-18-2024 Telephone encounter Kyler FRANCO Work Phone: [facility] Start: 05-18-2024 End: 05-18-2024 Office outpatient visit 25 minutes Kyler FRANCO Work Phone: [facility] Comment on above: Disorder of sacrum ( Primary Dx) Start: 05-18-2024 End: 05-18-2024 ambulatory KYLER CARVAJAL [facility] Start: 12-19-2021 Postop follow up vis it related to original px Toney Melara Xavier Work Phone: LU-Zwrvbwckdistch-Qtuz [place] Work Phone: Start: 12-05-2021 AUDIT Toney renteria Work Phone: OL-Hjtgzwtkgiqvxk-Esiv [place] Work Phone: Start: 11-28-2021 AUDIT Toney renteria Work Phone: QP-Ecukoacfqlegic-Vagl [place] Work Phone: Start: 10-27-2021 Office outpatient vi sit 15 minutes No PCP None BZ-Caeqaxwbgjobyj-Imqc [place] [facility] Work Phone: Start: 08-16-2021 End: 08-16-2021 ambulatory Melody Brandon Other [facility] Other Start: 08-16-2021 Office outpatient vi sit 15 minutes Melody Brandon [facility] Start: 07-21-2021 Postop follow up vis it related to original px No PCP None SG-Wpmxcahkfwnxnt-Rxoz [place] Work Phone: Start: 07-10-2021 [facility], Provider: Edy Dominguez, Status: Pen, Time: 11:00 AM No PCP None KI-Stshadpuddokwa-Axpc [place] Work Phone: Start: 07-08-2021 Chart Update No PCP None -Otolary [facility] Work Phone: Start: 07-07-2021 Office outpatient vi sit 25 minutes No PCP None CJ-Yhpgkihgususkg-Haqf [place] Work Phone: Start: 06-12-2021 Phys/qhp telephone evaluation 5-10 min No PCP None RL-Dpenolyqtxqkyu-Kegn [place] Work Phone: Start: 04-29-2021 Chart Update No PCP None -Otolary [facility] Work Phone: Start: 04-07-2021 Office outpatient ne w 45 minutes No PCP None HX-Kmcexqmjcvfpjx-Shdk [place] Work Phone: Start: 08-28-2020 End: 08-29-2020 Patient encounter procedure AMY MARKER Facility: Procedures Date Procedure Procedure Detail Performing Clinician Start: 11-03-2024 ECG 12-LEAD Jorge Fazi o DO Work Phone: Start: 11-01-2024 Urine test visual color cmprsn meths Jorge Lauren DO Work Phone: Plan of Treatment Date Care Activity Detail Author Start: 03-01-2026 Adult BMI Screening Adult BMI Screening [facility] Start: 03-01-2026 Tobacco Screening Tobacco Screening [facility] Start: 11-30-2025 Adult BMI Screening Adult BMI Screening [facility] Start: 11-30-2025 Tobacco Screening Tobacco Screening [facility] Start: 10-26-2025 Adult BMI Screening Adult BMI Screening [facility] Start: 10-26-2025 Tobacco Screening Tobacco Screening [facility] Start: 09-07-2025 Adult BMI Screening Adult BMI Screening [facility] Start: 09-07-2025 Tobacco Screening Tobacco Screening [facility] Start: 08-22-2025 End: 08-22-2025 Patient encounter procedure [facility] Start: 08-11-2025 Tobacco Screening Tobacco Screening [facility] Start: 05-29-2025 End: 11-23-2026 MG Breast - bilateral Screening Bilateral screening mammogram Imaging Routine Breast cancer screening by mammogram Expected: 05/29/2025 (Approximate), Expires: 07/29/2026 [facility] Work Phone: Comment on above: Expected: 05/29/2025 (Approximate), Expi res: 07/29/2026 Start: 05-29-2025 End: 05-29-2025 Patient encounter procedure 05/29/2025 1:40 PM EDT Procedure Visit MAZIN MENDOZA [address] [place] [address] Jorge Aguilar DO [address] [place] [address] MAZIN MENDOZA Start: 05-23-2025 End: 05-23-2025 Professional / ancillary services management 05/23/2025 1:00 PM EDT Ancillary Procedure MAZIN MENDOZA [address] [place] [address] MAZIN Cristina OBERLIN Start: 05-18-2025 Adult BMI Screening Adult BMI Screening [facility] Start: 05-18-2025 Tobacco Screening Tobacco Screening [facility] Start: 05-07-2025 Influenza vaccination Influenza Vaccine [facility] Start: 04-18-2025 End: 10-19-2025 US Pelvis US Pelvis w/ TV Imaging Routine Dysfunctional uterine bleeding Expected: 04/18/2025, Expires: 10/19/2025 [facility] Work Phone: Comment on above: Expected: 04/18/2025, Expires: Start: 04-12-2025 End: 04-12-2025 Patient encounter procedure 04/12/2025 1:30 PM EDT Office Visit [facility] [address] [place] [phone] Kyler Carvajal, PA [address] [place] [address] [facility] Start: 03-30-2025 End: 03-30-2025 Admission to same day surgery center 03/30/2025 11:58 AM EDT - 03/30/2025 12:05 PM EDT Surgery [facility] [address] [place] [address] Zeeshan Perry MD [address] [place] [facility] [place] [address] INJECTION BLOCK NERVE SACROILIAC [40615 (CPT )] [facility] Comment on above: INJECTION BLOCK NERVE SACROILIAC [79389 (CPT )] Start: 03-30-2025 End: 03-30-2025 Inject si joint arthrgrphy&/anes/steroid w/trav INJECTION BLOCK NERVE SACROILIAC Disorder of sacrum 03/30/2025 11:58 AM EDT [facility] Start: 03-30-2025 Subsequent hospital visit by physician 03/30/2025 11:58 AM EDT Hospital Encounter [facility] [address] [place] [phone] Zeeshan Perry MD [address] [facility] [place] [address] [facility] Start: 02-28-2025 End: 02-28-2026 Thyroglobulin Thyroglobulin Lab Routine Postoperative hypothyroidism Papillary thyroid carcinoma (HCC) Expected: 02/28/2025 (Approximate), Expires: 02/28/2026 [facility] Work Phone: Comment on above: Expected: 02/28/2025 (Approximate), Expi res: 02/28/2026 Start: 02-28-2025 End: 02-28-2026 Thyroglobulin Antibody Thyroglobulin Antibody Lab Routine Postoperative hypothyroidism Papillary thyroid carcinoma (HCC) Expected: 02/28/2025 (Approximate), Expires: 02/28/2026 [facility] Comment on above: Expected: 02/28/2025 (Approximate), Expi res: 02/28/2026 Start: 02-28-2025 End: 02-28-2026 Thyrotropin [Units/volume] in Serum or Plasma TSH Lab Routine Postoperative hypothyroidism Expected: 02/28/2025 (Approximate), Expires: 02/28/2026 [facility] Comment on above: Expected: 02/28/2025 (Approximate), Expi res: 02/28/2026 Start: 02-28-2025 End: 02-28-2026 Thyroxine (T4) free [Mass/volume] in Serum or Plasma T4, free Lab Routine Postoperative hypothyroidism Expected: 02/28/2025 (Approximate), Expires: 02/28/2026 [facility] Comment on above: Expected: 02/28/2025 (Approximate), Expi res: 02/28/2026 Start: 02-28-2025 End: 02-28-2026 Triiodothyronine (T3) Free [Mass/volume] in Serum or Plasma T3, free Lab Routine Postoperative hypothyroidism Expected: 02/28/2025 (Approximate), Expires: 02/28/2026 [facility] Comment on above: Expected: 02/28/2025 (Approximate), Expi res: 02/28/2026 Start: 02-28-2025 End: 02-28-2025 Patient encounter procedure 02/28/2025 1:20 PM EDT Office Visit [facility] [address] [place] [address] Thi Stephens MD [address] [place] [address] Arrived [facility] Comment on above: Arrived Start: 01-30-2025 End: 01-30-2025 Patient encounter procedure 01/30/2025 2:30 PM EDT Office Visit [facility] [address] [place] [phone] Kyler Carvajal PA [address] [place] [address] [facility] Start: 12-07-2024 End: 12-07-2024 Patient encounter procedure 12/07/2024 1:30 PM EDT Office Visit [facility] [address] [place] [phone] Kyler Carvajal PA [address] [facility] [place] [address] [facility] Start: 11-17-2024 End: 11-17-2024 Admission to same day surgery center 11/17/2024 10:26 AM EDT - 11/17/2024 10:33 AM EDT Surgery [facility] [address] [place] [phone] Zeeshan ePrry MD [address] [place] [address] INJECTION BLOCK SACROILIAC JOINT [80360 (CPT )] [facility] Comment on above: INJECTION BLOCK SACROILIAC JOINT [76869 (CPT )] Start: 11-17-2024 End: 11-17-2024 Inject si joint arthrgrphy&/anes/steroid w/trav INJECTION BLOCK SACROILIAC JOINT Disorder of sacrum 11/17/2024 10:26 AM EDT [facility] Start: 11-17-2024 Subsequent hospital visit by physician 11/17/2024 10:26 AM EDT Hospital Encounter [facility] [address] [place] [phone] Zeeshan Perry MD [address] [place] [address] [facility] Start: 11-09-2024 End: 11-09-2024 Patient encounter procedure 11/09/2024 2:45 PM EST Office Visit [facility] [address] [place] [phone] Kyler Carvajal PA [address] [place] [address] [facility] Start: 10-17-2024 End: 10-17-2024 Patient encounter procedure 10/17/2024 2:30 PM EST Procedure Visit [facility] [address] [place] [address] Jorge Aguilar DO [address] [place] [address] [facility] Start: 09-19-2024 End: 09-19-2025 US Pelvis US Pelvis w/ TV Imaging Routine Dysfunctional uterine bleeding Expected: 09/19/2024, Expires: 09/19/2025 [facility] Work Phone: Comment on above: Expected: 09/19/2024, Expires: Start: 09-19-2024 End: 09-19-2024 Patient encounter procedure [facility] Comment on above: Arrived Start: 09-11-2024 End: 09-11-2025 Thyroglobulin [facility] Work Phone: Comment on above: Expected: 09/11/2024 (Approximate), Expi res: 09/11/2025 Expected: 09/11/2024 , Expires: 09/11/2025 Start: 09-11-2024 End: 09-11-2025 Thyroglobulin Ab [Units/volume] in Serum or Plasma Thyroglobulin Ab Lab Routine Postprocedural hypothyroidism Malignant neoplasm of thyroid gland (CMS-HCC) Expected: 09/11/2024, Expires: 09/11/2025 [facility] Work Phone: Comment on above: Expected: 09/11/2024, Expires: Start: 09-11-2024 End: 09-11-2025 Thyroglobulin Antibody Thyroglobulin Antibody Lab Routine Postoperative hypothyroidism (CMS/HCC) Papillary thyroid carcinoma (CMS/HCC) Expected: 09/11/2024 (Approximate), Expires: 09/11/2025 [facility] Comment on above: Expected: 09/11/2024 (Approximate), Expi res: 09/11/2025 Start: 09-11-2024 End: 09-11-2025 Thyroid profile includes TSH FT4 Thyroid profile includes TSH FT4 Lab Routine Postprocedural hypothyroidism Malignant neoplasm of thyroid gland (CMS-HCC) Expected: 09/11/2024, Expires: 09/11/2025 [facility] Work Phone: Comment on above: Expected: 09/11/2024, Expires: Start: 09-11-2024 End: 09-11-2025 Thyrotropin [Units/volume] in Serum or Plasma TSH Lab Routine Postoperative hypothyroidism (CMS/HCC) Papillary thyroid carcinoma (CMS/HCC) Expected: 09/11/2024 (Approximate), Expires: 09/11/2025 [facility] Comment on above: Expected: 09/11/2024 (Approximate), Expi res: 09/11/2025 Start: 09-11-2024 End: 09-11-2025 Thyroxine (T4) free [Mass/volume] in Serum or Plasma [facility] Comment on above: Expected: 09/11/2024 (Approximate), Expi res: 09/11/2025 Expected: 09/11/2024 , Expires: 09/11/2025 Start: 09-11-2024 End: 09-11-2025 Triiodothyronine (T3) Free [Mass/volume] in Serum or Plasma [facility] Comment on above: Expected: 09/11/2024 (Approximate), Expi res: 09/11/2025 Expected: 09/11/2024 , Expires: 09/11/2025 Start: 09-07-2024 End: 09-07-2024 Patient encounter procedure 09/07/2024 2:30 PM EST Office Visit [facility] [address] [place] [address] Kyler Carvajal PA [address] [facility] [place], [place] [phone] [facility] Start: 07-04-2024 End: 07-04-2024 Patient encounter procedure 07/04/2024 12:30 PM EDT Office Visit [facility] [address] [place] [address] Kyelr Carvajal PA [address] [place], [place] [address] [facility] Start: 06-16-2024 End: 06-16-2024 Admission to same day surgery center 06/16/2024 11:15 AM EDT - 06/16/2024 11:22 AM EDT Surgery [facility] [address] [place] [phone] Zeeshan Perry MD [address] [place], [place] [phone] INJECTION BLOCK SACROILIAC JOINT [95446 (CPT )] [facility] Comment on above: INJECTION BLOCK SACROILIAC JOINT [10373 (CPT )] Start: 06-16-2024 End: 06-16-2024 Inject si joint arthrgrphy&/anes/steroid w/trav INJECTION BLOCK SACROILIAC JOINT Disorder of sacrum 06/16/2024 11:15 AM EDT [facility] Start: 06-16-2024 Subsequent hospital visit by physician 06/16/2024 11:15 AM EDT Hospital Encounter [facility] [address] [place] [phone] Zeeshan Perry MD [address] [place] [address] [facility] Start: 05-07-2024 Influenza vaccination Influenza Vaccine [facility] Start: 03-23-2022 [facility], Provider: Edy Dominguez, Status: Pen, Time: 2:30 PM [facility], Provider: Edy Dominguez, Status: Pen, Time: 2:30 PM FH-Rerwxhrxabyuny-Cwy tlake Work Phone: Start: 12-19-2021 POV, Provider: Edy Dominguez, Status: Pen, Time: 4:00 PM POV, Provider: Edy Dominguez, Status: Pen, Time: 4:00 PM XS-Wacdhedgdxaiiv-Pqy tlake Work Phone: Start: 12-04-2021 [facility], Provider: Edy Dominguez, Status: Pen, Time: 7:00 AM [facility], Provider: Edy Dominguez, Status: Pen, Time: 7:00 AM OZ-Gulkihfqsodkcl-Liv tlake Work Phone: Start: 10-06-2021 [facility], Provider: Edy Dominguez, Status: Pen, Time: 3:00 PM [facility], Provider: Edy Dominguez, Status: Pen, Time: 3:00 PM LK-Bwsqghkeslzbeh-Uju tlake Work Phone: Start: 07-10-2021 [facility], Provider: Edy Dominguez, Status: Pen, Time: 11:00 AM [facility], Provider: Edy Dominguez, Status: Pen, Time: 11:00 AM QP-Hjkjnijxgdcjgs-Syy tlake Work Phone: Start: 01-24-1997 Screening for malignant neoplasm of cervix Pap Smear [facility] Start: 01-24-1995 DTaP,Tdap and Td Vaccines (1 - Tdap) DTaP,Tdap and Td Vaccines (1 - Tdap) [facility] Start: 01-24-1994 Adult BMI Follow Up Plan Adult BMI Follow Up Plan [facility] Start: 1988 Depression Screening Depression Screening [facility] THIN PREP TIS PAP AN D HR HPV DNA THIN PREP TIS PAP AND HR HPV DNA Pathology and Cytology Routine Well woman exam with routine gynecological exam Ordered: 05/29/2025 [facility] Comment on above: Ordered: 05/29/2025 Tissue exam Tissue exam Path ology and Cytology Routine Dysfunctional uterine bleeding Pre-operative exam Ordered: 11/01/2024 [facility] Work Phone: Comment on above: Ordered: 11/01/2024 Immunizations Immunization Date Immunization Notes Care Provider Fa [facility] 08-21-2020 influenza, injectabl e, quadrivalent, contains preservative Thi Stephens MD Work Phone: [facility] 08-21-2020 influenza virus vaccine, unspecified formulation Kyler FRANCO Work Phone: [facility] 05-23-2019 influenza, injectabl e, quadrivalent, contains preservative Thi Stephens MD Work Phone: [facility] Payers Date Payer Category Payer Self-pay 2023 Medicare (Managed Care) [facility] [employer] [id number] 2023 Medicaid [id number] 2022 Medicare ANTHEM MEDICARE ANTHEM MEDICARE ADVANTAGE [id number] 2022-Present [phone] [address] [place] [address] [id number] 2022 Medicare HMO [facility] MEDICARE [id number] 2022 Unknown [id number] 2019 Auto Insurance [employer]ber [id number] 1976 Unknown [id number] 2.840.1.509955.3.579.2. 593 1976 Unknown [id number] 2.840.1.378762.3.579.2. 128 1976 Unknown [id number] 2840.1.686024.3.579.2. 128 1976 Unknown [id number] 2.0.1.714422.3.579.2. 128 1976 Unknown [id number] 2.16.840.1.303390.3.579.2. 1285 1976 Unknown [id number] 2.16.840.1.701005.3.579.2. 1285 1976 Unknown [id number] 2.16.840.1.014436.3.579.2. 1285 1976 Unknown [id number] 2.16.840.1.976107.3.579.2. 1285 1976 Unknown [id number] 2.16.840.1.977238.3.579.2. 1285 1976 Unknown [id number] 2.16.840.1.178941.3.579.2. 1285 1976 Unknown [id number] 2.16.840.1.738593.3.579.2. 1285 1976 Unknown [id number] 2.16.840.1.719028.3.579.2. 1285 1976 Unknown [id number] 2.16.840.1.843208.3.579.2. 1285 1976 Unknown [id number] 2.16.840.1.127973.3.579.2. 1285 1976 Unknown [id number] 2.16.840.1.678123.3.579.2. 1285 1976 Unknown [id number] 2.16.840.1.934673.3.579.2. 1285 1976 Unknown [id number] 2.16.840.1.994001.3.579.2. 1285 1976 Unknown [id number] 2.16.840.1.052120.3.579.2. 1285 1976 Unknown [id number] 2.16.840.1.106580.3.579.2. 1285 1976 Unknown [id number] 2.16.840.1.389875.3.579.2. 1258 1976 Unknown [id number] 2.16.840.1.733989.3.579.2. 1258 1976 Unknown [id number] 2.16.840.1.291013.3.579.2. 1258 1976 Unknown [id number] 2.16.840.1.277407.3.579.2. 1258 1976 Unknown [id number] 2.16.840.1.290307.3.579.2. 1258 1976 Unknown [id number] 2.16.840.1.245912.3.579.2. 1976 Unknown [id number] 2.16.840.1.612435.3.579.2. 1976 Unknown [id number] 2.16.840.1.483596.3.579.2. 1976 Unknown [id number] 2.16.840.1.327965.3.579.2. 1976 Unknown [id number] 2.16.840.1.327236.3.579.2. 1976 Unknown [id number] 2.16.840.1.282379.3.579.2. 1976 Unknown [id number] 2.16.840.1.130984.3.579.2. 1976 Unknown [id number] 2.16.840.1.641324.3.579.2. 1959 Medicaid [id number] 1958 Medicare [id number] Private Health Insurance [employer] [id number] Unknown Unknown [id number] 2.16.840.1.012750.3.579.2. 531 Unknown [id number] 2.16.840.1.048327.3.579.2. 531 Unknown [id number] 2.16.840.1.222638.3.579.2. 531 Social History Date Type Detail Facility Unknown if ever smoked [facility] Other Start: 08-09-2024 End: 09-07-2024 Sex Assigned At [facility] Tobacco smoking stat us NHIS Unknown if ever smoked [facility] Work Phone: Start: 04-11-2015 End: 07-26-2024 Sex Female (finding) [facility] Start: 1975 Sex Assigned At Female [facility] Start: 07-08-2022 End: 08-09-2024 Tobacco smoking status NHIS Never smoked tobacco [facility] Start: 07-08-2022 End: 08-09-2024 Tobacco use and exposure Smokeless tobacco non-user [facility] Start: 09-07-2024 End: 03-01-2025 Alcoholic beverage intake Current drinker of alcohol (finding) [facility] Start: 08-09-2024 End: 09-07-2024 History of Social function [facility] Adolescent depressio n screening assessment 0 [facility] Start: 04-12-2017 Alcohol Comment Socially [facility] Start: 1975 Sex assigned at Not on file P [facility] Medical Equipment Procedure Code Equipment Code Equipment Origin al Text Equipment Identifier Dates Scr Bn Twstof Fr s 2.0x13 Ns - Sws13 - [id number] Start: 02-11-2018 Comment on above: Description: WS13 2. 0 major thread, 13 mm screw, pitch 0.87 - SCR BN TWSTOF FRS 2.0X13 NS Titanium Fixos 2.0 WS twist off screws Scr Bn Twstof Fr s 2.0x15 Ns - Sws15 - [id number] Start: 02-11-2018 Comment on above: Description: WS15 2. 0 major thread, 15 mm screw, pitch 0.87 - SCR BN TWSTOF FRS 2.0X 15 NS Titanium Fixos 2.0 WS twist off screws Clinical Notes 05-04-2021 to 05-29-2025 Leandra Rangel - 05/29/2025 1:40 PM Vu Bailey LPN - 04/18/2025 1:50 PM JOAN Maldonado - 03/01/2025 1:00 PM EDTPatient Thao Stephens MD - 02/28/2025 1:20 PM EDT Note Date & Type Note Facility 05-29-2025 History of Presen t illness Narrative Reason for Appointment: Patient ID: Lauro Pinto is a 50 y.o. female who presents for Gynecologic Exam and Pre-op Visit Patient presents today for Pre Op/Annual appointment. Patient is scheduled to undergo Da Alison assisted Laparoscopic Hysterectomy, possible exploratory laparotomy, possible BSO, possible cystoscopy on 06-27-[address] Aguilar at [facility]. MEDICATIONS Current Outpatient Medications Medication Instructions citalopram (CELEXA) 10 mg, Daily dicyclomine (BENTYL) 20 mg, Every 6 hours ferrous gluconate (FERGON) 324 mg, Daily with breakfast levothyroxine (SYNTHROID, LEVOXYL) 200 mcg, Oral, Daily levothyroxine (SYNTHROID, LEVOXYL) 50 mcg, Oral, Daily LORazepam (ATIVAN) 0.5 mg, 2 times daily meclizine (ANTIVERT) 25 mg, 3 times daily [...] mass index (BMI) of 40.0 to 49.9 ([facility]-HCC) Papillary thyroid carcinoma (HCC) 07/2021 Post-surgical hypothyroidism Vitamin D deficiency, unspecified HISTORY PAST MEDICAL HISTORY SOCIAL HISTORY Past Medical History: Diagnosis Date Dietary counseling and surveillance Morbid obesity with body mass index (BMI) of 40.0 to 49.9 (CMS-HCC) Papillary thyroid carcinoma (HCC) 07/2021 left side Jul 2021, Completion sx November 2021 Post-surgical hypothyroidism Vitamin D deficiency, unspecified Social History Tobacco Use Smoking status: Never Smokeless tobacco: Never Substance Use Topics Alcohol use: Not on file Drug use: Not on file FAMILY HISTORY Family History Problem Relation Name Age of Onset Heart attack Sister Cancer Maternal Grandmother Heart failure Maternal Grandfather SURGICAL HISTORY Past Surgical History: Procedure Laterality Date APPENDECTOMY BACK SURGERY COLONOSCOPY ENDOMETRIAL ABLATION FOOT SURGERY Right KNEE SURGERY THYROIDECTOMY, PARTIAL Left 07/2021 TONSILLECTOMY TOTAL THYROIDECTOMY Right 11/2021 Papillary thyroid cancer TUBAL LIGATION UMBILICAL HERNIA REPAIR US GUIDED FINE PERCUTANEOUS ASPIRATION 11/14/2020 US GUIDED FINE PERCUTANEOUS ASPIRATION 11/14/2020 REVIEW OF SYSTEMS Review of Systems: Review of Systems Constitutional: Negative. HENT: Negative. Eyes: Negative. Respiratory: Negative. Cardiovascular: Negative. Gastrointestinal: Negative. Genitourinary: Positive for dyspareunia, menstrual problem and pelvic pain. Musculoskeletal: Negative. Skin: Negative. Neurological: Negative. All other systems reviewed and are negative. Hematological: Negative. Endocrine: Negative. Allergic/Immunologic: Negative. OBJECTIVE Objective: Physical Exam Constitutional: Appearance: Normal appearance. She is well-developed. Genitourinary: Vulva normal. Breasts: Breasts are soft. Right: Normal. Left: Normal. Cardiovascular: Rate and Rhythm: Normal rate and [...] nursing note reviewed. Exam conducted with a coil builder present. Vitals: Estimated body mass index is 39.86 kg/m as calculated from the following: Height as of 02/28/25: 6' 1 . Weight as of 04/18/25: 302 lb 1.9 oz. BP: No LMP recorded. Patient has had an ablation. ASSESSMENT & PLAN ICD-10-CM 1. Pre-op examination Z01.818 2. Menorrhagia with regular cycle N92.0 3. Pelvic pain R10.2 4. Dysmenorrhea N94.6 5. Dyspareunia in female N94.10 Annual: Patient presents today for an annual exam. Patient states she is doing well and has no complaints. Pap was obtained without difficulty. Pre Op: Patient is doing well but has complaints of menorrhagia, dyspareunia, dysmenorrhea and pelvic pain. I have discussed conservative management vs. surgical management with the patient in detail and patient desires surgical management at this time. Patient will undergo [facility] Alison assisted Laparoscopic Hysterectomy, possible exploratory laparotomy, possible BSO, possible cystoscopy on 06-27-25. Surgical consents were signed, mmc was reviewed, and patient is to proceed to [facility] OR. Follow Up: Patient is to follow up at 1 & 6 weeks post operative to assess proper healing and recovery from procedure. Documented by Lotus Bailey LPN on behalf of: Jorge Aguilar DO documented in this encounter [facility] 05-28-2025 Note - From: TONEY MONTOYA DO To: [facility] Clinical Pool ([id number]); Sent: 05/28/2025 12:54:45 EDT Subject: FW: Medication Management Due Date/Time: 05/29/2025 12:26:00 EDT Caller Name: LAURO PINTO; Caller Number: , From: [id number] To: TONEY MONTOYA DO Sent: May 28, 2025 11:26:13 AM CDT Subject: Medication Management Due: May 29, 2025 12:02:02 AM CDT On Hold Pending Signature Dispensed Drug: LORazepam (LORazepam 0.5 mg oral tablet), TAKE 1 TABLET BY MOUTH THREE TIMES DAILY Quantity: 90 tab(s) Days Supply: 30 Refills: 0 Substitutions Allowed Notes from Pharmacy: From: Mey Gutierrez To: [place] [address] Sent: 05/28/2025 13:25:06 EDT Subject: FW: Medication Management Not Approved: proposed to provider LORazepam (LORazepam 0.5 MG Oral Tablet) TAKE 1 TABLET BY MOUTH THREE TIMES DAILY Qty: 90 tab(s) Days Supply: 30 Refills: 0 Substitutions Allowed Route To [place] [id number] Signed by Mey Gutierrez rx sent [facility] 05-12-2025 Note Entered by MILTON MONTOYA DO on May 12, 2025 11:34:27 EDT From: TONEY MONTOYA DO To: [place] [address] Sent: 05/12/2025 11:34:27 EDT Subject: Medication Management Submitted: Complete:deutetrabenazine (Austedo 6 mg oral tablet) Signed by TONEY MONTOYA DO 05/12/2025 11:34:00 EDT Approved deutetrabenazine (Austedo 6 MG Oral Tablet) Take 1 tablet by mouth twice daily with food Qty: 60 tab(s) Days Supply: 30 Refills: 0 Substitutions Allowed Route To [facility] [place] [address] From: [place] [address] To: TONEY MONTOYA DO Sent: May 12, 2025 9:03:43 AM CDT Subject: Medication Management Due: May 13, 2025 12:23:41 AM CDT On Hold Pending Signature Dispensed Drug: deutetrabenazine (Austedo 6 mg oral tablet), Take 1 tablet by mouth twice daily with food Quantity: 60 tab(s) Days Supply: 30 Refills: 0 Substitutions Allowed Notes from Pharmacy: [facility] 04-30-2025 Note Entered by MILTON MONTOYA DO on April 30, 2025 11:41:27 EDT From: TONEY MONTOYA DO To: [place] [address] Sent: 04/30/2025 11:41:27 EDT Subject: Medication Management Submitted: Complete:citalopram (citalopram 20 mg oral tablet) Signed by TONEY MONTOYA DO 04/30/2025 11:41:00 EDT Approved with modifications: citalopram (Citalopram Hydrobromide 20 MG Oral Tablet) Take 1 tablet by mouth once daily Qty: 30 tab(s) Days Supply: 30 Refills: 5 Substitutions Allowed Route To Pharmacy - [place] [address] From: [place] [address] To: TONEY MONTOYA DO Sent: April 30, 2025 10:03:45 AM CDT Subject: Medication Management Due: May 01, 2025 12:02:58 AM CDT On Hold Pending Signature Dispensed Drug: citalopram (citalopram 20 mg oral tablet), Take 1 tablet by mouth once daily Quantity: 30 tab(s) Days Supply: 30 Refills: 0 Substitutions Allowed Notes from Pharmacy: [facility] 04-18-2025 History of Presen t illness Narrative Reason for Appointment: Patient ID: Lauro Pinto is a 50 y.o. female who presents for Consult For Hysterectomy and Vaginal Bleeding Patient presents today for Consult appointment. MEDICATIONS Current Outpatient Medications Medication Instructions citalopram (CELEXA) 10 mg, Daily dicyclomine (BENTYL) 20 mg, Every 6 hours ferrous gluconate (FERGON) 324 mg, Daily with breakfast levothyroxine (SYNTHROID, LEVOXYL) 200 mcg, Oral, Daily levothyroxine (SYNTHROID, LEVOXYL) 50 mcg, Oral, Daily LORazepam (ATIVAN) 0.5 mg, 2 times daily meclizine (ANTIVERT) 25 mg, 3 times daily [...] mass index (BMI) of 40.0 to 49.9 ([facility]) Papillary thyroid carcinoma (HCC) 07/2021 Post-surgical hypothyroidism Vitamin D deficiency, unspecified HISTORY PAST MEDICAL HISTORY SOCIAL HISTORY Past Medical History: Diagnosis Date Dietary counseling and surveillance Morbid obesity with body mass index (BMI) of 40.0 to 49.9 ([facility]) Papillary thyroid carcinoma (HCC) 07/2021 left side Jul 2021, Completion sx November 2021 Post-surgical hypothyroidism Vitamin D deficiency, unspecified Social History Tobacco Use Smoking status: Never Smokeless tobacco: Never Substance Use Topics Alcohol use: Not on file Drug use: Not on file FAMILY HISTORY Family History Problem Relation Name Age of Onset Heart attack Sister Cancer Maternal Grandmother Heart failure Maternal Grandfather SURGICAL HISTORY Past Surgical History: Procedure Laterality Date APPENDECTOMY BACK SURGERY COLONOSCOPY ENDOMETRIAL ABLATION FOOT SURGERY Right KNEE SURGERY THYROIDECTOMY, PARTIAL [...] nursing note reviewed. Exam conducted with a coil builder present. Vitals: Estimated body mass index is 39.86 kg/m as calculated from the following: Height as of 02/28/25: 6' 1 . Weight as of this encounter: 302 lb 1.9 oz. BP: 108/70 No LMP recorded. Patient has had an ablation. ASSESSMENT & PLAN ICD-10-CM 1. Dysfunctional uterine bleeding N93.8 Pt desires hysterectomy . Pt had ablation in november still having heavy bleeding every month. Pt given ultrasound to have obtained. Pt to return for preop exam. Documented by Lotus Bailey LPN on behalf of: Jorge Aguilar DO documented in this encounter [facility] 03-08-2025 Note Entered by MILTON MONTOYA DO on March 08, 2025 10:58:59 EDT From: TONEY MONTOYA DO To: [place] [address] Sent: 03/08/2025 10:58:58 EDT Subject: Medication Management Submitted: Complete:cariprazine (Vraylar 6 mg oral capsule) Signed by TONEY MONTOYA DO 03/08/2025 10:58:00 EDT Approved with modifications: cariprazine (Vraylar 6 MG Oral Capsule) Take 1 capsule by mouth once daily Qty: 30 cap(s) Days Supply: 30 Refills: 2 Substitutions Allowed Route To Pharmacy - [place] [address] From: [facility] To: TONEY MONTOYA DO Sent: March 08, 2025 9:53:19 AM CDT Subject: Medication Management Due: March 09, 2025 12:01:42 AM CDT On Hold Pending Signature Dispensed Drug: cariprazine (Vraylar 6 mg oral capsule), Take 1 capsule by mouth once daily Quantity: 30 cap(s) Days Supply: 30 Refills: 0 Substitutions Allowed Notes from Pharmacy: [facility] 03-01-2025 History of Presen t illness Narrative [facility] [address] [place] [address] Patient: Lauro A Blair Sex: female : 1975 Age: 50 y.o. PCP: TONEY MONTOYA DO 03/01/2025 Lauro Pinto is here for a(n) 3 month follow up. Chief Complaint Patient presents with Back Pain HPI: PT/Water therapy 12/2022 last visit Back: Bilat SI joint injection 60% relief that continues. Preop pain was 5/10 now 2/10 continued relief. 02/06/22 Bilateral L4/5, 5/1 MBB with 75% [...] present in the lumbar spine, sacro-iliac and gluteal. The quality of the pain is described as aching (sharp intermittently). The pain does not radiate. The pain is at a severity of 4/10 (up to 8/10). The pain is moderate (to severe). Worse during: after working or prolonged standing. The symptoms are aggravated by sitting, standing, position, lying down, twisting and bending. Stiffness is present In the morning (getting up from lying position). Pertinent negatives include no bladder incontinence, bowel incontinence, chest pain, fever, leg pain or weakness. Risk factors include history of steroid use, poor posture and obesity. She has tried ice, heat, bed rest, home exercises, NSAIDs, muscle relaxant and walking (Previous injections, PT/Water therapy (06/2021), Nsaidsx2, tizanadine, tyl, topical, mobic, tramadol) for the symptoms. The treatment provided mild relief. The effect of pain on patient's ADLS: Moderate Impairment. Past Medical History: Diagnosis Date Anemia [...] 03/20/2022 Performed by Zeeshan Perry MD at [facility] INJECTION BLOCK NERVE MEDIAL BRANCH Bilat L 4/5,5/ Bilateral 02/06/2022 Performed by Zeeshan Perry MD at [facility] IN[facility] BLOCK SACROILIAC JOINT Bilateral 11/17/2024 Performed by Zeeshan Perry MD at [facility] INJECTION BLOCK SACROILIAC JOINT Bilateral 08/11/2024 Performed by Zeeshan Perry MD at [facility] IN[facility]CTION BLOCK SACROILIAC JOINT Bilateral 07/09/2023 Performed by Zeeshan Perry MD at [facility] IN[facility]CTION BLOCK SACROILIAC JOINT Bilateral 08/07/2022 Performed by Zeeshan Perry MD at [facility] IN[facility] MEDIAL BRANCH NERVE BLOCK Bialteral L 3/4, 4/5 Medial Branhc Block X 1 Bilateral 05/07/2017 Performed by Zeeshan Perry MD at [facility] INJECTION MEDIAL BRANCH NERVE BLOCK BILATERAL L3/4, 4/5 Bilateral 10/22/2017 Performed by Zeeshan Perry MD at [facility] KNEE ARTHROSCOPY W/ MENISCECTOMY Left 11/2022 OSTEOTOMY KELTON PROCEDURE METATARSAL Right 02/11/2018 Performed by Hector Watson DPM at [facility] RADIOFREQUENCY ABLATION SPINAL left L 4/5, 5/1 Left 05/15/2022 Performed by Zeeshan Perry MD at [facility] RADIOFREQUENCY ABLATION SPINAL right L 4/5,5/1 Right 04/24/2022 Performed by Zeeshan Perry MD at [facility] RADIOFREQUENCY ABLATION SPINAL: right L34 45 rfa Right 03/11/2018 Performed by Zeeshan Perry MD at [facility] SPINE SURGERY 09/06/2009 L5/S1 diskectomy and fusion [...] on file Food Insecurity: No Food Insecurity (03/01/2025) Hunger Screening Food Insecurity - Worry: Never True Food Insecurity - Inability: Never True Transportation Needs: Not on file Physical Activity: Not on file Stress: Not on file Social Connections: Not on file Interpersonal Safety: Not on file Housing Instability: Not on file Review of Systems Constitutional: Negative for fever. HENT: Negative. Respiratory: Negative for cough and shortness of breath. Cardiovascular: Negative for chest pain. Gastrointestinal: Negative for blood in stool, bowel incontinence and constipation. Genitourinary: Negative for bladder incontinence, difficulty urinating, frequency and urgency. Musculoskeletal: Positive for back pain. Skin: Negative. Neurological: Negative for weakness. Psychiatric/Behavioral: Negative. Vital Signs: BP 122/80 Pulse 70 Resp 16 Ht 185.4 cm (6' 1 ) Wt (!) 136.5 kg (301 lb) SpO2 96% BMI 39.71 kg/m Physical Exam: GENERAL - Healthy patient [...] - Case request operating room: INJECTION BLOCK NERVE SACROILIAC Therapeutic Bilateral Sacroiliac Joint Injection - under fluoroscopy [...] risks and benefits and wishes to proceed. Follow up 2 weeks after procedure DISCUSSION: Treatment options discussed with patient and [...] them with the patient for these reasons. OARRS: Reviewed. Scribe Statement: I, Zainab Robles CNA, scribed for and in the presence of JOAN JOHN who performed the above service. Zainab Robles CNA 03/01/25 [id number] JOAN John 03/01/25 [id number] documented in this encounter [facility] 03-01-2025 Instructions Zainab Robles CNA - 03/01/2025 1:00 PM EDT Facet Injection / Medial Branch Block [...] nearest emergency room. [facility] History of Presen t illness Narrative Images from the original note were not included. Lauro Pinto is a 50 y.o. female No ref. provider found presents with chief complaint of Thyroid Problem and Follow-up HPI: IM : 02/2025 follow up visit on 02/28/2025 on 250 mcg daily, no new lab IM : 09/2024 follow up visit on [...] 08/2022 follow up visit on 08/18/2022 on 200+65=593 mcg daily. no new lab yet. HPI: 01/2022 New patient sent from Dr. Edy Dominguez, the surgeon, with the surgery for her twice in [facility] in [place], first one in left lobe for thyroid [...] not have the pathology report left side. [id number], largest foci 0.8 cm. SUBJECTIVE: MEDICATIONS: Current Outpatient Medications Medication Instructions Cariprazine HCl (Vraylar) 1.5 MG capsule 1 capsule, Daily citalopram (CELEXA) 10 mg, Daily dicyclomine (BENTYL) 20 mg, Every 6 hours ferrous gluconate (FERGON) 324 mg, Daily with breakfast levothyroxine (SYNTHROID, LEVOXYL) 200 mcg, Oral, Daily levothyroxine (SYNTHROID, LEVOXYL) 50 mcg, Oral, Daily LORazepam (ATIVAN) 0.5 mg, 2 times daily meclizine (ANTIVERT) 25 mg, 3 times daily PRN meloxicam (MOBIC) 7.5 mg, Daily mirtazapine (REMERON) 30 mg, Nightly omeprazole (PRILOSEC) 40 mg, Daily ALLERGIES: No Known Allergies Past Medical History: Diagnosis Date Dietary counseling and surveillance Morbid obesity with body mass index (BMI) of 40.0 to 49.9 ([facility]) Papillary thyroid carcinoma (HCC) 07/2021 left side Jul 2021, Completion sx November 2021 Post-surgical hypothyroidism Vitamin D deficiency, unspecified Past Surgical History: Procedure Laterality Date APPENDECTOMY BACK SURGERY COLONOSCOPY FOOT SURGERY Right KNEE SURGERY THYROIDECTOMY, PARTIAL Left 07/2021 TONSILLECTOMY TOTAL THYROIDECTOMY Right 11/2021 Papillary thyroid cancer TUBAL LIGATION UMBILICAL HERNIA REPAIR US GUIDED FINE PERCUTANEOUS ASPIRATION 11/14/2020 US GUIDED FINE PERCUTANEOUS ASPIRATION 11/14/2020 REVIEW OF SYMPTOMS: 14 POINT OF SYSTEM REVIEWED AND NEGATIVE OBJECTIVE: 08/11/2021 12:00 PM 09/17/2021 12:00 PM 08/12/2022 12:00 PM 08/25/2023 12:51 PM 09/19/2024 1:21 PM 11/01/2024 1:03 PM 02/28/2025 1:15 PM Vitals BMI 44.46 kg/m2 44.46 kg/m2 44.46 kg/m2 41.56 kg/m2 38.37 kg/m2 39.46 kg/m2 40.11 kg/m2 BSA (m2) 2.81 m2 2.81 m2 2.81 m2 2.71 m2 2.61 m2 2.65 m2 2.67 m2 Systolic 118 120 120 Diastolic 70 70 74 Heart Rate 77 73 SpO2 99 % 99 % Resp 18 16 Height (in) 6' 1 6' 1 6' 1 6' 1 6' 1 6' 1 Weight (lb) 337 337 337 315 290.8 299.12 304 Visit Report Report Report ASSESSMENT AND PLAN: Assessment/Plan Diagnoses and all orders for this visit: Postoperative hypothyroidism - Thyroglobulin; Future - Thyroglobulin Antibody; Future - T3, free; Future - T4, free; Future - TSH; Future We will continue with levothyroxine 250 mcg daily, we will check lab and adjust the dose now. Papillary thyroid carcinoma (HCC) - Thyroglobulin; Future - Thyroglobulin Antibody; Future thyroid cancer, done completion in two surgeries, first one in July 2021 showing papillary thyroid cancer, then they do completion surgery in November 2021 for the right side. Vitamin D deficiency Encounter for dietary consultation Class 3 severe obesity due to excess calories without serious comorbidity with body mass index (BMI) of 40.0 to 44.9 in adult ([facility]) Diet and exercise reviewed with the patient Follow up in about 6 months (around 08/30/2025). documented in this encounter [facility] 02-07-2025 Note Entered by MILTON MONTOYA DO on February 07, 2025 16:09:29 EDT From: TONEY MONTOYA DO To: [id number] Sent: 02/07/2025 16:09:29 EDT Subject: Medication Management Submitted: Complete:ferrous gluconate (ferrous gluconate 324 mg (38 mg elemental iron) oral tablet) Signed by TONEY MONTOYA DO 02/07/2025 16:09:00 EDT Approved with modifications: ferrous gluconate (Ferrous Gluconate 324 (38 Fe) MG Oral Tablet) Take 1 tablet by mouth once daily Qty: 100 tab(s) Days Supply: 100 Refills: 1 Substitutions Allowed Route To Pharmacy - [facility] Hester From: [facility] [employer] [address] To: TONEY MONTOYA DO Sent: February 07, 2025 2:42:48 PM CDT Subject: Medication Management Due: February 08, 2025 12:58:21 PM CDT On Hold Pending Signature Dispensed Drug: ferrous gluconate (ferrous gluconate 324 mg (38 mg elemental iron) oral tablet), Take 1 tablet by mouth once daily Quantity: 100 tab(s) Days Supply: 100 Refills: 0 Substitutions Allowed Notes from Pharmacy: [facility] 01-01-2025 Note Entered by MILTON MONTOYA DO on January 01, 2025 11:36:04 EDT From: TONEY MONTOYA DO To: [facility] Sent: 01/01/2025 11:36:03 EDT Subject: Medication Management Submitted: Complete:busPIRone (busPIRone 10 mg oral tablet) Signed by TONEY MONTOYA DO 01/01/2025 11:36:00 EDT Approved with modifications: busPIRone (busPIRone HCl 10 MG Oral Tablet) Take 1 tablet by mouth twice daily as needed Qty: 60 tab(s) Days Supply: 30 Refills: 1 Substitutions Allowed Route To Pharmacy - [place] [address] From: [place] [address] To: TONEY MONTOYA DO Sent: January 01, 2025 10:01:56 AM CDT Subject: Medication Management Due: January 02, 2025 9:38:10 AM CDT On Hold Pending Signature Dispensed Drug: busPIRone (busPIRone 10 mg oral tablet), Take 1 tablet by mouth twice daily as needed Quantity: 60 tab(s) Days Supply: 30 Refills: 0 Substitutions Allowed Notes from Pharmacy: [facility] 12-18-2024 Note Entered by MILTON MONTOYA DO on December 18, 2024 07:29:23 EDT From: TONEY MONTOYA DO To: [place] [address] Sent: 12/18/2024 07:29:23 EDT Subject: Medication Management Submitted: Complete:mirtazapine (Remeron 30 mg oral tablet) Signed by TONEY MONTOYA DO 12/18/2024 07:29:00 EDT Submitted: Complete:dicyclomine (dicyclomine 20 mg oral tablet) Signed by TONEY MONTOYA DO 12/18/2024 07:29:00 EDT Approved with modifications: dicyclomine (Dicyclomine HCl 20 MG Oral Tablet) Take 1 tablet by mouth 4 times daily Qty: 120 tab(s) Days Supply: 30 Refills: 5 Substitutions Allowed Route To Pharmacy - [place] [address] Approved with modifications: mirtazapine (Mirtazapine 30 MG Oral Tablet) TAKE 1 TABLET BY MOUTH ONCE DAILY AT BEDTIME Qty: 30 tab(s) Days Supply: 30 Refills: 5 Substitutions Allowed Route To [facility] [place] [address] From: [place] [address] To: TONEY MONTOYA DO Sent: December 17, 2024 5:41:55 AM CDT Subject: Medication Management Due: December 18, 2024 12:21:47 AM CDT On Hold Pending Signature Dispensed Drug: dicyclomine (dicyclomine 20 mg oral tablet), Take 1 tablet by mouth 4 times daily Quantity: 120 tab(s) Days Supply: 30 Refills: 0 Substitutions Allowed Notes from Pharmacy: On Hold Pending Signature Dispensed Drug: mirtazapine (mirtazapine 30 mg oral tablet), TAKE 1 TABLET BY MOUTH ONCE DAILY AT BEDTIME Quantity: 30 tab(s) Days Supply: 30 Refills: 0 Substitutions Allowed Notes from Pharmacy: [facility] 11-30-2024 History of Presen t illness Narrative [facility] [address] [place] [address] Patient: Lauro Pinto Sex: female : 1975 Age: 49 y.o. PCP: TONEY MONTOYA, DO 11/30/2024 Lauro Pinto is here for a(n) post procedure follow up Bilateral sacroiliac joint injection with 60% relief that continues. Preop pain was 5/10 now 2/10 continued relief.. . Date of onset of pain: 1993 , pain has lasted greater than 3 months. Pain scale before treatment: 5/10 Pre-op pain score: 5/10 Post-op pain score: 2/10 2 hour post-op pain score: 2/10 4 hour post-op pain score: 2/10 Percentage and duration of relief after treatment: see above Pain scale after treatment: 2/10 Chief Complaint Patient presents with Back Pain HPI: PT/Water therapy 12/2022 last visit Back: Bilat SI joint injection 60% relief that continues. Preop pain was 5/10 now 2/10 continued relief. 02/06/22 Bilateral L4/5, 5/1 MBB with 75% [...] as aching and cramping (sharp). The pain does not radiate. The pain is at a severity of 2/10. The pain is mild. The symptoms are aggravated by sitting, standing, [...] 03/20/2022 Performed by Zeeshan Perry MD at [facility] INJECTION BLOCK NERVE MEDIAL BRANCH Bilat L 4/5,5/1 Bilateral 02/06/2022 Performed by Zeeshan Perry MD at [facility] INJECTION BLOCK SACROILIAC JOINT Bilateral 11/17/2024 Performed by Zeeshan Perry MD at [facility] INJECTION BLOCK SACROILIAC JOINT Bilateral 08/11/2024 Performed by Zeeshan Perry MD at [facility] INJECTION BLOCK SACROILIAC JOINT Bilateral 07/09/2023 Performed by Zeeshan Perry MD at [facility] INJECTION BLOCK SACROILIAC JOINT Bilateral 08/07/2022 Performed by Zeeshan Perry MD at [facility] MEDIAL BRANCH NERVE BLOCK Bialteral L 3/4, 4/5 Medial Branhc Block X 1 Bilateral 05/07/2017 Performed by Zeeshan Perry MD at [facility] MEDIAL BRANCH NERVE BLOCK BILATERAL L3/4, 4/5 Bilateral 10/22/2017 Performed by Zeeshan Perry MD at [facility] KNEE ARTHROSCOPY W/ MENISCECTOMY Left 11/2022 OSTEOTOMY KELTON PROCEDURE METATARSAL Right 02/11/2018 Performed by Hector Watson DPM at [facility] RADIOFREQUENCY ABLATION SPINAL left L 4/5, 5/1 Left 05/15/2022 Performed by Zeeshan Perry MD at [facility] RADIOFREQUENCY ABLATION SPINAL right L 4/5,5/1 Right 04/24/2022 Performed by Zeeshan Perry MD at [facility] RADIOFREQUENCY ABLATION SPINAL: right L34 45 rfa Right 03/11/2018 Performed by Zeeshan Perry MD at [facility] SPINE SURGERY 09/06/2009 L5/S1 diskectomy and fusion [...] on file Food Insecurity: No Food Insecurity (11/30/2024) Hunger Screening Food Insecurity - Worry: Never True Food Insecurity - Inability: Never True Transportation Needs: Not on file Physical Activity: Not on file Stress: Not on file Social Connections: Not on file Interpersonal Safety: Not on file Housing Instability: Not on file Review of Systems Constitutional: Negative. Negative for chills, fatigue and fever. HENT: Negative. Respiratory: Negative. Negative for cough and shortness of breath. Cardiovascular: Negative. Negative for chest pain. Gastrointestinal: Negative. Negative for bowel incontinence. Genitourinary: Negative. Negative for bladder incontinence. Musculoskeletal: Positive for arthralgias (left knee) and back pain. Negative for gait problem. Skin: Negative. Negative for rash and wound. Neurological: Negative. Negative for tingling, weakness and numbness. Hematological: Negative. Does not bruise/bleed easily. Psychiatric/Behavioral: Negative. Negative for self-injury and suicidal ideas. Vital Signs: BP 118/80 Pulse 82 Resp 18 Ht 185.4 cm (6' 1 ) Wt (!) 137.4 kg (303 lb) SpO2 99% BMI 39.98 kg/m Physical Exam: GENERAL - Healthy patient [...] pain. Facet palpation is noted to be painful and facet loading maneuvers elicit pain that is concordant with the patient s normal pain complaints. Some muscle spasm is noted in the overlying musculature. STRENGTH - noted to be 5 out [...] distributions. Straight Leg Raise is negative bilaterally. Gait is normal. Assessment/Treatment Plan: Lauro was seen today for back pain. Diagnoses and all orders for this visit: Lumbar spondylosis Monitor Follow up 2-3 months The medications prescribed have been reviewed [...] prescribe any controlled substance from this practice. Treatment plans discussed but not opted for at this time: Lumbar Medial Branch Block. Pain is under adequate control. It does appear that the patient benefited [...] that affected my overall medical decision making: Obesity OARRS: Reviewed. Scribe Statement: I, Camelia Chakraborty RN, scribed for and in the presence of JOAN JOHN who performed the above service. Camleia Chakraborty RN 11/30/24 0924 JOAN John 11/30/24 0932 documented in this encounter 5 Minutes 11-20-2024 Note Entered by MILTON MONTOYA DO on November 20, 2024 07:29:00 EDT From: TONEY MONTOYA DO To: [place] [address] Sent: 11/20/2024 07:29:00 EDT Subject: Medication Management Submitted: Complete:cariprazine (Vraylar 1.5 mg oral capsule) Signed by TONEY MONTOYA DO 11/20/2024 07:28:00 EDT Approved with modifications: cariprazine (Vraylar 1.5 MG Oral Capsule) Take 1 capsule by mouth once daily Qty: 30 cap(s) Days Supply: 30 Refills: 5 Substitutions Allowed Route To Pharmacy - [place] [address] From: [place] [address] To: TONEY MONTOYA DO Sent: November 19, 2024 5:41:47 AM CDT Subject: Medication Management Due: November 20, 2024 12:27:06 AM CDT On Hold Pending Signature Dispensed Drug: cariprazine (Vraylar 1.5 mg oral capsule), Take 1 capsule by mouth once daily Quantity: 30 cap(s) Days Supply: 30 Refills: 0 Substitutions Allowed Notes from Pharmacy: [facility] 11-06-2024 Note Entered by MILTON MONTOYA DO on November 06, 2024 11:01:24 EST From: TONEY MONTOYA DO To: [place] [address] Sent: 11/06/2024 11:01:24 EST Subject: Medication Management Submitted: Complete:citalopram (citalopram 20 mg oral tablet) Signed by TONEY MONTOYA DO 11/06/2024 11:01:00 EST Approved with modifications: citalopram (Citalopram Hydrobromide 20 MG Oral Tablet) Take 1 tablet by mouth once daily Qty: 30 tab(s) Days Supply: 30 Refills: 5 Substitutions Allowed Route To Pharmacy - [facility] From: [facility] To: TONEY MONTOYA DO Sent: November 06, 2024 8:20:27 AM PRODUCT MANAGEMENT CONSULTANT Subject: Medication Management Due: November 07, 2024 12:02:49 AM PRODUCT MANAGEMENT CONSULTANT On Hold Pending Signature Dispensed Drug: citalopram (citalopram 20 mg oral tablet), Take 1 tablet by mouth once daily Quantity: 30 tab(s) Days Supply: 30 Refills: 0 Substitutions Allowed Notes from Pharmacy: [facility] 11-01-2024 History of Presen t illness Narrative Reason for Appointment: Patient ID: Lauro Pinto is a 49 y.o. female who presents for Vaginal Bleeding and Pre-op Visit Patient presents today for Pre Op/Endometrial Biopsy appointment. Patient is scheduled to undergo Endometrial Ablation with Anya on 11/10/[address] Aguilar at [facility] MEDICATIONS Current Outpatient Medications Medication Instructions Cariprazine [...] mass index (BMI) of 40.0 to 49.9 ([facility]) Papillary thyroid carcinoma ([facility]) 07/2021 Post-surgical hypothyroidism ([facility]) Vitamin D deficiency, unspecified HISTORY PAST MEDICAL HISTORY SOCIAL HISTORY Past Medical History: Diagnosis Date Dietary counseling and surveillance Morbid obesity with body mass index (BMI) of 40.0 to 49.9 ([facility]) Papillary thyroid carcinoma ([facility]) 07/2021 left side Jul 2021, Completion sx November 2021 Post-surgical hypothyroidism ([facility]) Vitamin D deficiency, unspecified Social History Tobacco [...] nursing note reviewed. Exam conducted with a coil builder present. Vitals: Estimated body mass index is [...] reviewed, and patient is to proceed to [facility] OR. Follow Up: Patient is to follow up between 1-2 weeks post operative to assess proper healing and recovery from procedure. Documented by Lotus Bailey LPN on behalf of: Jorge Aguilar DO documented in this encounter [facility] 10-31-2024 Note Entered by MILTON MONTOYA DO on October 31, 2024 14:25:57 EST From: TONEY MONTOYA DO To: [facility] Sent: 10/31/2024 14:25:57 EST Subject: Medication Management Submitted: Complete:omeprazole (omeprazole 40 mg oral delayed release capsule) Signed by TONEY MONTOYA DO 10/31/2024 14:25:00 EST Approved with modifications: omeprazole (OMEPRAZOLE DR 40MG CAP) Take 1 capsule by mouth once daily Qty: 30 cap(s) Days Supply: 30 Refills: 5 Substitutions Allowed Route To Pharmacy - [facility] From: [facility] To: TONEY MONTOYA DO Sent: October 31, 2024 12:02:15 PM PRODUCT MANAGEMENT CONSULTANT Subject: Medication Management Due: November 01, 2024 12:11:39 AM PRODUCT MANAGEMENT CONSULTANT On Hold Pending Signature Dispensed Drug: omeprazole (omeprazole 40 mg oral delayed release capsule), Take 1 capsule by mouth once daily Quantity: 30 cap(s) Days Supply: 30 Refills: 0 Substitutions Allowed Notes from Pharmacy: [facility] 10-26-2024 History of Presen t illness Narrative [facility] [address] [place] [address] Patient: Lauro Pinto Sex: female : 1975 [...] 03/20/2022 Performed by Zeeshan Perry MD at [facility] INJECTION BLOCK NERVE MEDIAL BRANCH Bilat L 4/5,5/1 Bilateral 02/06/2022 Performed by Zeeshan Perry MD at [facility] INJECTION BLOCK SACROILIAC JOINT Bilateral 08/11/2024 Performed by Zeeshan Perry MD at [facility] INJECTION BLOCK SACROILIAC JOINT Bilateral 07/09/2023 Performed by Zeeshan Perry MD at [facility] INJECTION BLOCK SACROILIAC JOINT Bilateral 08/07/2022 Performed by Zeeshan Perry MD at [facility] MEDIAL BRANCH NERVE BLOCK Bialteral L 3/4, 4/5 Medial Branhc Block X 1 Bilateral 05/07/2017 Performed by Zeeshan Perry MD at [facility] MEDIAL BRANCH NERVE BLOCK BILATERAL L3/4, 4/5 Bilateral 10/22/2017 Performed by Zeeshan Perry MD at [facility] KNEE ARTHROSCOPY W/ MENISCECTOMY Left 11/2022 OSTEOTOMY KELTON PROCEDURE METATARSAL Right 02/11/2018 Performed by Hector Watson DPM at [facility] RADIOFREQUENCY ABLATION SPINAL left L 4/5, 5/1 Left 05/15/2022 Performed by Zeeshan Perry MD at [facility] RADIOFREQUENCY ABLATION SPINAL right L 4/5,5/1 Right 04/24/2022 Performed by Zeeshan Perry MD at [facility] RADIOFREQUENCY ABLATION SPINAL: right L34 45 rfa Right 03/11/2018 Performed by Zeeshan Perry MD at [facility] SPINE SURGERY 09/06/2009 L5/S1 diskectomy and fusion [...] accurate and complete. Zainab Robles CNA 10/26/24 3953 JOAN John 10/31/24 1146 [facility] Instructions Zainab Robles SPEECH LANGUAGE PATHOLOGY ASSISTANT - 10/26/2024 2:00 PM EST Facet Injection [...] nearest emergency room. documented in this encounter [facility] 10-09-2024 Note Entered by MILTON MONTOYA DO on October 09, 2024 07:30:49 EST From: TONEY MONTOYA DO To: [place] [address] Sent: 10/09/2024 07:30:49 EST Subject: Medication Management Submitted: Complete:busPIRone (busPIRone 10 mg oral tablet) Signed by TONEY MONTOYA DO 10/09/2024 07:30:00 EST Approved with modifications: busPIRone (busPIRone HCl 10 MG Oral Tablet) Take 1 tablet by mouth twice daily as needed Qty: 60 tab(s) Days Supply: 30 Refills: 2 Substitutions Allowed Route To Pharmacy - [place] [address] From: [place] [address] To: TONEY MONTOYA DO Sent: October 06, 2024 12:01:36 PM PRODUCT MANAGEMENT CONSULTANT Subject: Medication Management Due: October 07, 2024 12:04:38 AM PRODUCT MANAGEMENT CONSULTANT On Hold Pending Signature Dispensed Drug: busPIRone (busPIRone 10 mg oral tablet), Take 1 tablet by mouth twice daily as needed Quantity: 60 tab(s) Days Supply: 30 Refills: 0 Substitutions Allowed Notes from Pharmacy: [facility] 09-19-2024 History of Presen t illness [...] mass index (BMI) of 40.0 to 49.9 ([facility]) Papillary thyroid carcinoma ([facility]) 07/2021 Post-surgical hypothyroidism ([facility]) Vitamin D deficiency, unspecified HISTORY PAST MEDICAL HISTORY SOCIAL HISTORY Past Medical History: Diagnosis Date Dietary counseling and surveillance Morbid obesity with body mass index (BMI) of 40.0 to 49.9 ([facility]) Papillary thyroid carcinoma (CMS/HCC) 07/2021 left side Jul 2021, Completion sx November 2021 Post-surgical hypothyroidism ([facility]) Vitamin D deficiency, unspecified Social History Tobacco [...] nursing note reviewed. Exam conducted with a coil builder present. Vitals: Estimated body mass index is [...] Jorge Aguilar DO documented in this encounter [facility] 09-11-2024 History of Presen t illness [...] 08/2022 follow up visit on 08/18/2022 on 200+50=869 mcg daily. no new lab yet. HPI: 01/2022 New patient sent from Dr. Edy Dominguez, the surgeon, with the surgery for her twice in [facility] in [place], first one in left lobe for thyroid [...] not have the pathology report left side. [id number], largest foci 0.8 cm. SUBJECTIVE: MEDICATIONS: Current [...] mass index (BMI) of 40.0 to 49.9 ([facility]) Papillary thyroid carcinoma (CMS/HCC) 07/2021 left side [...] months (around 12/10/2024). documented in this encounter [facility] 09-07-2024 History of Presen t illness Narrative [facility] [address] [place] [address] Patient: Lauro Pinto Sex: female : 1975 Age: 49 y.o. PCP: TONEY MONTOYA, 09/07/2024 Lauro Pinto is here for a(n) [...] 03/20/2022 Performed by Zeeshan Perry MD at [facility] INJECTION BLOCK NERVE MEDIAL BRANCH Bilat L 4/5,5/ Bilateral 02/06/2022 Performed by Zeeshan Perry MD at [facility] INJECTION BLOCK SACROILIAC JOINT Bilateral 08/11/2024 Performed by Zeeshan Perry MD at [facility] INJECTION BLOCK SACROILIAC JOINT Bilateral 07/09/2023 Performed by Zeeshan Perry MD at [facility] INJECTION BLOCK SACROILIAC JOINT Bilateral 08/07/2022 Performed by Zeeshan Perry MD at [facility] INJECTION MEDIAL BRANCH NERVE BLOCK Bialteral L 3/4, 4/5 Medial Branhc Block X 1 Bilateral 05/07/2017 Performed by Zeeshan Perry MD at [facility] IN[facility]CTION MEDIAL BRANCH NERVE BLOCK BILATERAL L3/4, 4/5 Bilateral 10/22/2017 Performed by Zeeshan Perry MD at [facility] KNEE ARTHROSCOPY W/ MENISCECTOMY Left 11/2022 OSTEOTOMY KELTON PROCEDURE METATARSAL Right 02/11/2018 Performed by Hector Watson DPM at [facility] RADIOFREQUENCY ABLATION SPINAL left L 4/5, 5/1 Left 05/15/2022 Performed by Zeeshan Perry MD at [facility] RADIOFREQUENCY ABLATION SPINAL right L 4/5,5/1 Right 04/24/2022 Performed by Zeeshan Perry MD at [facility] RADIOFREQUENCY ABLATION SPINAL: right L34 45 rfa Right 03/11/2018 Performed by Zeeshan Perry MD at [facility] SPINE SURGERY 09/06/2009 L5/S1 diskectomy and fusion [...] accurate and complete. Zainab Robles CNA 09/07/24 1507 documented in this encounter [facility] 08-09-2024 Miscellaneous Notes Pt calls asking [...] procedure. PVU noted documented in this encounter [facility] 08-09-2024 Telephone encounter Note Pt calls [...] if she can proceed with procedure. PVU [facility] 08-09-2024 Telephone encounter Note noted [facility] 07-27-2024 Note [id number] [facility] 07-25-2024 Note [facility] SURGERY Clinical Discharge Summary PERSON INFORMATION Name LAURO PINTO Age 49 Years 1975 Sex FEMALE Language Kuwaiti PCP TONEY MONTOYA DO Marital Status Single Med Service Ambulatory Surgery Acct# Arrival 07/25/2024 06:22:59 Visit Reason SURGERY - EGD AND COLONOSCOPY - ANEMIA AND FAMILY HX COLON CANCER Ac[facility] LOS 019 02:30 Address: [address] [place] [id number] Comment: PROVIDER INFORMATION VITALS INFORMATION Vital Sign [...] Follow up: With: Address: When: [place]y [place] [address] [place], [place] [id number] [employer] () , only if needed With: Address: When: TONEY MONTOYA DIAGNOSIS 1:Microcytic anemia Comment: PHYS DOC NOTES [facility] 07-07-2024 Note Entered by MILTON MONTOYA DO on July 07, 2024 16:49:08 EDT From: TONEY MONTOYA DO To: [place] [address] Sent: 07/07/2024 16:49:08 EDT Subject: Medication Management Submitted: Complete:amitriptyline (amitriptyline 100 mg oral tablet) Signed by TONEY MONTOYA DO 07/07/2024 16:49:00 EDT Approved with modifications: amitriptyline (Amitriptyline HCl 100 MG Oral Tablet) TAKE 1 TABLET BY MOUTH ONCE DAILY AT BEDTIME Qty: 30 tab(s) Days Supply: 30 Refills: 5 Substitutions Allowed Route To Pharmacy - [place] [address] From: [facility] To: TONEY MONTOYA DO Sent: July 07, 2024 4:41:06 AM CDT Subject: Medication Management Due: July 08, 2024 12:19:20 AM CDT On Hold Pending Signature Dispensed Drug: amitriptyline (amitriptyline 100 mg oral tablet), TAKE 1 TABLET BY MOUTH ONCE DAILY AT BEDTIME Quantity: 30 tab(s) Days Supply: 30 Refills: 0 Substitutions Allowed Notes from Pharmacy: [facility] 05-29-2024 Miscellaneous Notes Insurance called requesting [...] came back approved. documented in this encounter [facility] 05-29-2024 Telephone encounter Note Insurance called requesting further clinical information regarding procedure that was requested. They stated Case not meeting criteria for requested procedure because: The notes do not show that the previous injection met requirements for 50% and 3 months duration of relief. How do you want to proceed? [facility] 05-29-2024 Telephone encounter Note Chart please [facility] 05-29-2024 Telephone encounter Note Please call pt and ask how much relief she had after SI injection last year. I can do appeal if she had greater than 50%. [facility] 05-29-2024 Telephone encounter Note Called patient and she reported that 30% was a mistake. She claims she received at least 50% temporary relief. [facility] 05-29-2024 Telephone encounter Note May appeal: [...] that repeat SI injection is medically necessary. [facility] 05-29-2024 Telephone encounter Note Date of service changed for patient. Could not change date of service with insurance so a new authorization needed to be submitted. New auth is pending further medical review. Insurance states The notes do not show Low back pain below L5 without radiculopathy. Clinicals have been submitted. Waiting response from insurance. [facility] 05-29-2024 Telephone encounter Note Auth came back approved. [facility] 05-18-2024 History of Presen t illness Narrative [facility] [address] [place] [address] Patient: Lauro Pinto Sex: female : 1975 [...] 03/20/2022 Performed by Zeeshan Perry MD at [facility] INJECTION BLOCK NERVE MEDIAL BRANCH Bilat L 4/5,5/1 Bilateral 02/06/2022 Performed by Zeeshan Perry MD at [facility] INJECTION BLOCK SACROILIAC JOINT Bilateral 07/09/2023 Performed by Zeeshan Perry MD at [facility] INJECTION BLOCK SACROILIAC JOINT Bilateral 08/07/2022 Performed by Zeeshan Perry MD at [facility] MEDIAL BRANCH NERVE BLOCK Bialteral L 3/4, 4/5 Medial Branhc Block X 1 Bilateral 05/07/2017 Performed by Zeeshan Perry MD at [facility] INJECTION MEDIAL BRANCH NERVE BLOCK BILATERAL L3/4, 4/5 Bilateral 10/22/2017 Performed by Zeeshan Perry MD at [facility] KNEE ARTHROSCOPY W/ MENISCECTOMY Left 11/2022 OSTEOTOMY KELTON PROCEDURE METATARSAL Right 02/11/2018 Performed by Hector Watson DPM at [facility] RADIOFREQUENCY ABLATION SPINAL left L 4/5, 5/1 Left 05/15/2022 Performed by Zeeshan Perry MD at [facility] RADIOFREQUENCY ABLATION SPINAL right L 4/5,5/1 Right 04/24/2022 Performed by Zeeshan Perry MD at [facility] RADIOFREQUENCY ABLATION SPINAL: right L34 45 rfa Right 03/11/2018 Performed by Zeeshan Perry MD at [facility] SPINE SURGERY 09/06/2009 L5/S1 diskectomy and fusion [...] John 05/18/24 1340 documented in this encounter 5 Minutes 05-18-2024 Instructions Zainab Robles CNA - 05/18/2024 [...] nearest emergency room. documented in this encounter [facility] 12-05-2021 Note Send Summary: Discharge Summary Providers: Provider RoleProvider Name Edy Morrow Jason [facility], Charles Note Recipients: Toney Montoya MD - [phone] [] Edy Dominguez MD Discharge: Summary: Admission [...] Last Updated: 05-Dec-2021 07:11 by Edy Dominguez) [facility] 12-04-2021 Note PROCEDURE DETAILS Preoperative Diagnosis: Follicular variant papillary thyroid cancer Postoperative Diagnosis: Follicular variant papillary thyroid cancer Surgeon: Edy Dominguez MD Resident/Fellow/Other Fha Underwriter: Alexey Procedure: 1. Completion right thyroidectomy with [...] was identified, isolated, clipped, and cut. A [place] was placed on the superior pole being [...] Last Updated: 04-Dec-2021 09:55 by Edy Dominguez) [facility] 12-04-2021 Note History of Present I llness: /Lactating: Are You no Are You Currently Breastfeedingno History Present Illness: Reason for surgery: Thyroid cancer - completion thyroidectomy HPI: Surgery: Completion Right Thyroidectomy Name: Lauro Pinto ([id number]) Surgeon: Edy Dominguez MD Age: 46 Date [...] the note. I personally evaluated the patient [id number] Electronic Signatures: Modesto Blackburn (Resident)) (Signed 04-Dec-2021 04:52) Authored: History of Present Illness, Allergies, Home Medication Review, Impression/Procedure, ERAS, Physical Exam, Consent, Note Completion Edy Dominguez) (Signed 04-Dec-2021 05:52) Authored: History of Present Illness, Note Completion Co-Signer: History of Present Illness, Allergies, Home Medication Review, Impression/Procedure, ERAS, Physical Exam, Consent, Note Completion Last Updated: 04-Dec-2021 05:52 by Edy Dominguez) [facility] 08-16-2021 Evaluation note Encounter Date Diagnosis Assessment Notes Aug, Cough (ICD-10 - R05.9) Aug, COVID-19 (ICD-10 - U07.1) Drink plenty fluids, get plenty of rest. Continue home medications as prescribed. Use the albuterol inhaler as prescribed as needed for cough or shortness of breath. Follow-up with your family physician if no improvement in 2 to 3 days [facility] Other 11-05-2021 NoteSend Summary: Discharge Summary Providers: [...] Completion Last Updated: 11-Jul-2021 06:09 by Edy Dominguez)[facility] 07-10-2021 NotePROCEDURE DETAILS Preoperative Diagnosis: Left thyroid nodule Postoperative Diagnosis: Left thyroid nodule Surgeon: Edy Dominguez Resident/Fellow/Other Fha Underwriter: Juan Becerra Procedure: 1. Left hemithyroidectomy with [...] Completion Last Updated: 10-Jul-2021 13:54 by Edy Dominguez)[facility] 07-10-2021 NoteHistory & Physical Reviewed: /Lactating: Are [...] the note. I personally evaluated the patient [id number] Electronic Signatures: Juan Becerra (Resident)) (Signed 10-Jul-2021 07:14) Authored: History & Physical Reviewed, ERAS, Consent, Note Completion Edy Dominguez) (Signed 10-Jul-2021 08:58) Authored: Note Completion Co-Signer: History & Physical Reviewed, ERAS, Consent, Note Completion Last Updated: 10-Jul-2021 08:58 by Edy Dominguez)[facility] 07-07-2021 History of Present illness Narrative* 46-year-old [...] She denies history of smoking. She repo [employer] social alcohol use. She is on disability * She presents today to discuss surgery scheduled for later this week. She saw preadmission testing this morning. She has not developed any symptoms [facility] Work Phone: 1(179) 734-379208-29-2021 History of Present illness Narrative* 46-year-old female [...] social alcohol use. She is on disability [employer] Work Phone: Evaluation noteNo assessment information available [facility] Work Phone: Evaluation note* Diagnosis Lumbosacral spondylosis without myelopathy- Primary [facility] Diagnosis Postprocedural hypothyroidism Postsurgical hypothyroidism Malignant neoplasm of thyroid gland (CMS-HCC) Malignant neoplasm of thyroid gland [facility] Diagnosis Postoperative hypothyroidism (CMS/HCC)- Primary Postsurgical hypothyroidism Papillary thyroid carcinoma (CMS/HCC) Vitamin D deficiency Encounter for dietary consultation Class 3 severe obesity due to excess calories without serious comorbidity with body mass index (BMI) of 40.0 to 44.9 in adult ([facility]) documented in this encounter [facility]* Diagnosis Dysfunctional uterine bleeding Other disorder of menstruation and other abnormal bleeding from female genital tract Iron deficiency anemia, unspecified iron deficiency anemia type documented in this encounter [facility]* Diagnosis Disorder of sacrum- Primary Disorders of sacrum Disorder of sacrum- Primary Disorders of sacrum Disorder of sacrum Disorders of sacrum [facility] Diagnosis Disorder of sacrum- Primary Disorders of sacrum Disorder of sacrum- Primary Disorders of sacrum Disorder of sacrum Disorders of sacrum [facility] Diagnosis Dysfunctional uterine bleeding Other disorder of menstruation and other abnormal bleeding from female genital tract Pre-operative exam Unspecified pre-operative examination documented in this encounter [facility]* Diagnosis Lumbar spondylosis- Primary Lumbosacral spondylosis without myelopathy [facility] Diagnosis Postoperative hypothyroidism- Primary Postsurgical hypothyroidism Papillary thyroid carcinoma (HCC) Vitamin D deficiency Encounter for dietary consultation Class 3 severe obesity due to excess calories without serious comorbidity with body mass index (BMI) of 40.0 to 44.9 in adult ([facility]) documented in this encounter [facility]* Diagnosis Disorder of sacrum- Primary Disorders of sacrum Disorder of sacrum- Primary Disorders of sacrum Disorder of sacrum Disorders of sacrum [facility] Diagnosis Dysfunctional uterine bleeding Other disorder of menstruation and other abnormal bleeding from female genital tract documented in this encounter [facility]* Diagnosis Pre-op examination Menorrhagia with regular cycle Pelvic pain Dysmenorrhea Dyspareunia in female Well woman exam with routine gynecological exam Routine gynecological examination Breast cancer screening by mammogram documented in this encounter [facility] HealthcareHistory general Narrative - Reported* Type Description Date Medical History heartburn Medical History pulmonary embolism Surgical History tonsillectomy Surgical History umbilical hernia repair Surgical History appendectomy Surgical History tubal ligation Surgical History back surgery x2 Surgical History right foot x5 Hospitalization History see above [facility] Other History of Present illness Narrative* 46-year-old [...] has not noticed any change in symptoms [facility]pt[facility]ax[facility]ue[facility] Work Phone: History of Present illness NarrativePatient presents today after hemithyroidectomy. Final pathology pending. Doing well since her surgery. No issues with voice or [id number]-Tgsytwyjhfpbdn-Edhjenus Work Phone: History of Present illness NarrativePatient presents today to discuss completion thyroidectomy. 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 She has been doing well and has not had any significant changes. No issues with voice or [id number]-Yqladgwzlsodms-[id number] SJ[facility] [address] Work Phone: History of Present illness NarrativePatient presents today for follow up after completion thyroidectomy. Pathology after initial surgery showed multifocal carcinoma. No cancer identified on completion. She has been doing well No issueswith voice or kmpdaofyuoCZ-Dbskihwuvwbwge-Vmugywhl [facility] Phone: InstructionsNot on filedocumented in this encounter [facility]ructionsNot on filedocumented in this encounter [facility] SystemInstructionsNot on filedocumented in this encounter [facility] SystemInstructionsNot on filedocumented in this encounter [facility] SystemInstructionsNot on filedocumented in this encounter [facility] Summary Purpose Family History Relationship Condition Age at Onset Recorded Date/T margot mother Diabetes mellitus Unknown Advance Directives Advance Directive Response Recorded Date/ Time Advance Directives No November 10 1:38pm Chief Complaint Goiter, thyroid noduleGoiter, thyroid noduleGoiter, thyroid nodulepostopf/u thyroid cancerf/u thyroid cancer Reason for Referral Specialty Diagnoses / Procedures Referred By Alicia abbott Referred To Contact Diagnoses Disorder of sacrum Procedures Case request operating room: INJECTION BLOCK SACROILIAC JOINT Kyler Carvajal, JOAN [address], [address] [place] [address] Referral ID Status Reason Start Date Expiration Date V isits Requested Visits Authorized [id number] Pending Review 05/18/2024 05/18/2025 1 1 Additional Source Comments INFORMATION SOURCE (unrecogn ized section and content) DATE CREATED AUTHOR 03/02/2018 [facility] DATE CREATED AUTHOR AUTHOR'S ORGANIZ ATION 10/03/2020 [facility] DATE CREATED AUTHOR AUTHOR'S ORGANIZ ATION 12/13/2021 [facility] DATE CREATED AUTHOR AUTHOR'S ORGANIZ ATION 12/21/2021 [facility] [place] DATE CREATED AUTHOR AUTHOR'S ORGANIZ ATION 03/27/2022 [facility] DATE CREATED AUTHOR AUTHOR'S ORGANIZ ATION 11/15/2024 [facility] DATE CREATED AUTHOR AUTHOR'S ORGANIZ ATION 04/15/2025 [facility] DATE CREATED AUTHOR AUTHOR'S ORGANIZ ATION 04/20/2025 [facility] DATE CREATED AUTHOR AUTHOR'S ORGANIZ ATION 05/29/2025 [facility] REASON FOR VISIT (unrecogniz ed section and content) Reason Comments Back Pain Reason Comments Vaginal Bleeding anemia Reason Comments Back Pain Reason Comments Back Pain Knee Pain Reason Comments Vaginal Bleeding Pre-op Visit Reason Comments Thyroid Problem Follow-up Reason Comments Consult For Hysterectomy Vaginal Bleeding Reason Comments Gynecologic Exam Pre-op Visit Care Teams (unrecognized sec tion and content) Team Status: Active Member Role Status Dates Sofiya Cole MD Primary Care Provider Active Team Status: Inactive Member Role Status Dates Sofiya Cole MD Primary Care Provider Active Start: July 25, 2024 End: July 25, 2024 Korey Ford MD Attending Provider Active Start: July 25, 2024 End: July 25, 2024 [employer] Relationship Specialty Start Date End Date Toney Montoya DO PCP - General Family Medicine 09/13/20 [employer] Grinder Relationship Specialty Start Date End Date Toney Montoya DO PCP - General Family Medicine 09/13/20 Gold Nib Grinder Relationship Specialty Start Date End Date Toney Montoya MD [address] [place] [id number] PCP - General Family Medicine 08/09/24 Gold Nib Grinder Relationship Specialty Start Date End Date Toney Montoya MD [address] [place] [address] PCP - General Family Medicine 08/09/24 Gold Nib Grinder Relationship Specialty Start Date End Date Toney Montoya MD [address] [place] [address] PCP - General Family Medicine 08/09/24 Gold Nib Grinder Relationship Specialty Start Date End Date Toney Montoya DO [address] [place] [id number] PCP - General Family Medicine 09/13/20 Gold Nib Grinder Relationship Specialty Start Date End Date Toney Montoya DO PCP - General Family Medicine 09/13/20 Gold Nib Grinder Relationship Specialty Start Date End Date Toney Montoya DO PCP - General Family Medicine 09/13/20 Gold Nib Grinder Relationship Specialty Start Date End Date Toney Montoya DO PCP - General Family Medicine 09/13/20 Gold Nib Grinder Relationship Specialty Start Date End Date Toney Montoya MD [address] [place] [id number] PCP - General Family Medicine 08/09/24 Team Status: Inactive Member Role Status Dates Sofiya Cole MD Primary Care Provider Active Start: November 01, 2024 End: November 01, 2024 Jorge Aguilar DO Attending Provider Active Start : November 01, 2024 End: November 01, 2024 Gold Nib Grinder Relationship Specialty Start Date End Date Toney Montoya MD [address] [place] [phone] PCP - General Family Medicine 08/09/24 Team Status: Inactive Member Role Status Dates Jorge Aguilar DO Attending Provider Active Start : November 10, 2024 End: November 10, 2024 Gold Nib Grinder Relationship Specialty Start Date End Date Toney Montoya DO PCP - General Family Medicine 09/13/20 Gold Nib Grinder Relationship Specialty Start Date End Date Toney Montoya MD [address] [place] [id number] PCP - General Family Medicine 08/09/24 Gold Nib Grinder Relationship Specialty Start Date End Date Toney Montoya MD [address] [place] [address] PCP - General Family Medicine 08/09/24 Gold Nib Grinder Relationship Specialty Start Date End Date Toney Montoya MD [address] [place] [address] PCP - General Family Medicine 08/09/24 Gold Nib Grinder Relationship Specialty [place] [address] [place] [phone] PCP - General Family Medicine 08/09/24 Goals [...] BE BASED ON THE PRIMARY CLINICAL RECORDS. [facility]. provides no warranty or guarantee of the accuracy or completeness of information in this document.
[2025-06-05 13:08] LABS: Age Gdln ACOG Testing Note (.); IGP, Aptima HPV, rfx 16/18,45 Note (.)
== END 2025-05-29 19:41 | disposition home or self-care (01) ==
LOC: LAB 19:40
PROVIDERS: PCP Family Medicine; Visit Provider Obstetrics & Gynecology
DX: Z01.419 Encounter for gynecological examination (general) (routine) without abnormal findings (principal)
CPT/HCPCS: 87624; 88175

== ENCOUNTER 2025-05-31 13:43 | Outpatient (OUT) | payer MEDICARE, MEDICAID, SELFPAY ==
--- OUTSIDE RECORDS SUMMARY | 2025-05-31 13:47 | XMS_ITS | CCD ---
Author Organization [facility] Care Team Providers Care Supervisor [place]chard Name Role Phone MARKER, AMY Admitting Unavailable MARKER, AMY Attending Unavailable SOFIYA COLE Primary Care UnavailRUPINDER Wahl Consulting Unavailable MARKER, AMY Consulting Unavailable AMBREEN ZENDEJAS Consulting Unavailable None, No PCP Unavailable Unavailable Unavailable Unavailable Toney Montoya Unavailable Melody Brandon Unavailable Sofiya Cole MD Primary Care Provider [phone] Korey Ford MD Attending Provider Tnoey Montoya DO Primary Care Provider Toney Montoya MD Primary Care Provider Toney Montoya DO Primary Care Provider Sofiya Cole MD Primary Care Provider Jorge Aguilar DO Attending Provider Lauren, Jorge Admitting Unavailable Jorge Aguilar Attending Unavailable Sofiya Cole Primary Care Unavailable Lauren, Jorge Admitting Unavailable Lauren, Jorge Attending Unavailable Korey Ford Admitting Unavailable Korey Ford Attending Unavailable Sofiya Cole Primary Care Unavailable Sofiya Cole MD Primary Care Provider [phone] Jorge Aguilar DO Attending Provider Toney Montoya DO Primary Care Provider KYLER CARVAJAL Attending Unavailable TONEY MONTOYA Referring Unavailable TONEY MONTOYA Primary Care Unavailable ZEESHAN PERRY Attending Unavailable PERRY, ZEESHAN Renteria Referring Unavailable HOUSE, TONEY P Primary Care Unavailable PERRY, ZEESHAN E Admitting Unavailable PERRY, ZEESHAN Renteria Attending Unavailable [...] PERRY, ZEESHAN E Admitting Unavailable PERRY, ZEESHAN Renteria Attending Unavailable [...] Unavailable House Toney SANTIZO Primary Care Provider HOUSE, TONEY P Primary Care Unavailable HOUSE, [...] Unavailable HOUSE, TONEY P Primary Care Unavailable JORGE AGUILAR Attending Unavailable THI STEPHENS Attending Unavailable JORGE AGUILAR Attending Unavailable JORGE AGUILAR Attending Unavailable THI STEPHENS Attending Unavailable THI STEPHENS Referring Unavailable JORGE AGUILAR Attending Unavailable Allergies Allergy Classification Reported Allergen(s) Allergy Type Date of Onset Reaction(s) Facility (1 source) Amoxicillin Drug Allergy itching [facility] Other (1 source) Amoxicillin Drug Allergy 08-16-2021 [facility] Repository Medications Current Medications Medication Drug Class(es) Dates Sig (Normalized) Sig (Original) acetaminophen 500 mg oral tablet (12 sources) take 1 tablet by mouth every six hours as needed for pain acetaminophen (TYLENOL EXTRA STRENGTH) 500 mg tablet Take 1 tablet (500 mg total) by mouth every 6 (six) hours as needed for pain. Active [id number] 200 actuat albuterol 0.09 mg/actuat metered dose [...] (BMI) of 40.0 to 44.9 in adult ([facility])] 09-11-2024 Chronic Other nutritional; endocrine; [...] Range Facility Outside [facility] 04-09-2025 Outside Records [id number]#1.00OTGTI FF [facility] Outside [facility] 03-05-2025 Outside Records [id number]#1.00OTGTIFF [facility] Pathology Sendout Teston Pathology Send Out. See Report [facility] Comment on above: Order Comment: SIGMO ID COLON POLYPFAMILY HX COLON CANCER, ANEMIA Performed By: #### 2 [id number] ####[facility] (DEFAULT)[address] [place] [address] Pathology Send Out. See Report [facility] Comment on above: Order Comment: ELENA NDING COLON POLYPFAMILY HX COLON CANCER, ANEMIA Performed By: #### 2 [id number] ####[facility] (DEFAULT)[address] [place] [address] Outside [facility] 11-14-2024 Outside Records [id number]#1.00OTGTI FF [facility] Pathology study report docum entOrdered By: Dunia Beaulieu on 11-13-2024 Pathology study [facility] Other Claudio 11-10-2024 L ------ Specimen: [id number] Received: 11/10/24 Status: WALDO Cale Num: [id number] Spec Type: Surgical Subm Dr: Jorge Aguilar Tissues: A Endometrial Polyp (ENDOMETRIAL POLYP) Procedures: HE/2, Gross/Micro L4 Age/ Patient Sex Location Account Attending Physician Lauro Pinto 49/F LABELL [id number] Jorge gAuilar SPEC NUM: [id number] RECD: 11/10/24 STATUS: WALDO CALE NUM: [id number] MIGUELITO: 11/10/24-[address]: Jorge Aguilar ENTERED: 11/10/[address]: Leighton Cristina SPEC TYPE: Surgical DEPT: [...] submitted in a single cassette. (1, ns, [id number]) Microscopic Description Microscopic examinations are performed supporting the above interpretation Specimen: [id number] Received: 11/10/24 Status: WALDO Madsen Num: [id number] Spec Type: Surgical Subm Dr: Jorge Aguilar Tissues: A Endometrial Polyp (ENDOMETRIAL POLYP) Procedures: HE/2, Gross/Micro L4 Patient: Lauro Pinto [id number] (Continued) Specimen: [id number] Received: 11/10/24 (Continued) Signed (signature on file) Chin-Antione Beaulieu, MD 11/13/24 1608 Specimen: [id number] Received: 11/10/24 Status: WALDO Jeanyashira Num: [id number] Spec Type: Surgical Subm Dr: Jorge Aguilar Tissues: A Endometrial Polyp (ENDOMETRIAL POLYP) Procedures: HE/Paramjit, Herson/Tg L4 Patient: Lauro Pinto [id number] (Continued) Specimen: [id number] Received: 11/10/24 (Continued) CPT Codes 88579 Specimen: [id number] Received: 11/10/24 Status: WALDO Madsen Num: [id number] Spec Type: Surgical Subm Dr: Jorge Aguilar Tissues: A Endometrial Polyp (ENDOMETRIAL POLYP) Procedures: HE/2, Gross/Micro L4 Patient: Lauro Pinto [id number] (Continued) Signed (signature on file) Dunia Beaulieu MD 11/13/24 1608 Normal [facility] ECG 12-LEADon 11-05-2024 [place] [address] Electrocardiograph Report Signed Patient: LAURO PINTO MR#: [id number] : 1975 Acct:[id number] Age/Sex: 49 / F ADM Date: 11/03/24 Loc: PST Attending Dr: Jorge Aguilar D.O. Ordering Physician: Jorge Aguilar D.O. 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 Signed By: 11/05/24 0808 DD/ 1358 TD/TT: [employer] Whe[employer] Ax[employer] Inspector: [facility] Radiology, Radiologi MD gwyn - 11/05/2024 [place] [address] Electrocardiograph Report Signed Patient: LAURO PINTO MR#: [id number] : 1975 Acct:[id number] Age/Sex: 49 / F ADM Date: 11/03/24 Loc: [facility] Attending Dr: Jorge Aguilar D.O. Ordering Physician: Jorge Aguilar D.O. 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 Signed By: 11/05/24 0808 DD/ 1358 TD/TT: [employer] Inspector: [facility] ECG 12-LEADOrdered By: Radio logist Radiology on 11-05-2024 [facility] Work Phone: ECG 12-LEADon 11-03-2024 Radiology Study observation (narrative) [facility] HCG ( test) Ql (U)o n 11-01-2024 Interpretation and review of laboratory results Normal [facility] Preg Test, Ur Negative Negative [facility] Claudio 11-01-2024 L ------ Specimen: [id number] Received: 11/02/24 Status: WALDO Jeanyashira Num: [id number] Spec Type: Surgical Subm Dr: Jorge Aguilar Tissues: A Endometrium - Biopsy (ENDOMETRIAL BX) Procedures: JADA/Herson Yusuf/Tg Maxwell Age/ Patient Sex Location Account Attending Physician Lauro Pinto 49/F LABELL [id number] Jorge Aguilar SPEC NUM: [id number] RECD: 11/02/24 STATUS: WALDO MADSEN NUM: [id number] MIGUELITO: 11/01/24-0000 [facility] DR: Jorge Aguilar ENTERED: 11/02/[address]: NEAL TYPE: Surgical DEPT: S ENTERED BY: [id number] RECV BY: [id number] ORDERED: HE/2, Gross/Micro L4 ORDERED: HE/2, Gross/Micro [...] submitted in a single cassette. (1, ns, [id number] A) Microscopic Description Sections examined support the above rendered diagnosis. Specimen: [id number] Received: 11/02/24 Status: WALDO Cale Num: [id number] Spec Type: Surgical Subm Dr: Jorge Aguilar Tissues: A Endometrium - Biopsy (ENDOMETRIAL BX) Procedures: Rosa Elena HURT L4 Patient: Lauro Pinto [id number] (Continued) Signed (signature on file) India Reyes MD 11/03/24 0893 Normal [facility] L ------ Specimen: [id number] Received: 11/02/24 Status: WALDO Madsen Num: [id number] Spec Type: Surgical Subm Dr: Jorge Aguilar Tissues: A Endometrium - Biopsy (ENDOMETRIAL BIOPSY) Procedures: Herson HURT/Tg L4 Age/ Patient Sex Location Account Attending Physician Lauro Pinto 49/F LABELL [id number] Jorge Aguilar SPEC NUM: [id number] RECD: 11/02/24 STATUS: WALDO MADSEN NUM: [id number] MIGUELITO: 11/01/24-[address]: Jorge Agiular ENTERED: 11/07/[address] [facility] [address]: NEAL TYPE: Surgical DEPT: JORGE KULKARNI ENTERED BY: [id number] RECV BY: [id number] ORDERED: HE/2, Gross/Micro L4 ORDERED: HE/2, Gross/Micro [...] staff Clinical Information Dysfunctional uterine bleeding Specimen: [id number] Received: 11/02/24 Status: WALDO Madsen Num: [id number] Spec Type: Surgical Subm Dr: Jorge Aguilar Tissues: A Endometrium - Biopsy (ENDOMETRIAL BIOPSY) Procedures: HE/2, Gross/Micro L4 Patient: Lauro Pinto [id number] (Continued) Specimen: [id number] Received: 11/02/24 (Continued) Signed (signature on file) Dunia Beaulieu MD 11/07/24 1928 Specimen: [id number] Received: 11/02/24 Status: WALDO Madsen Num: [id number] Spec Type: Surgical Subm Dr: Jorge Aguilar Tissues: A Endometrium - Biopsy (ENDOMETRIAL BIOPSY) Procedures: HE/2, Gross/Micro L4 Patient: Lauro Pinto [id number] (Continued) Specimen: [id number] Received: 11/02/24-1351 (Continued) Gross Description Part A is received in formalin labeled with the patients name, date of , and EMBx is a pale perez mucoid material, admixed with feathery duarte-pink tissue fragments, 0.8 x 0.3 x 0.1 cm in aggregate. The specimen is filtered and entirely submitted in a single cassette. (1, ns, [id number] A) Microscopic Description Sections examined support the above rendered diagnosis. CPT Codes 08399 Specimen: [id number] Received: 11/02/24 Status: WALDO Madsen Num: [id number] Spec Type: Surgical Subm Dr: Jorge Aguilar Tissues: A Endometrium - Biopsy (ENDOMETRIAL BIOPSY) Procedures: HE/2, Gross/Micro L4 Patient: BlairLauro [id number] (Continued) Signed (signature on file) Dunia Beaulieu MD 11/07/241927 Normal [facility] Outside [facility] 10-31-2024 Outside Records [id number]#1.00OTGTIFF [facility] Rad - Other Radiology Report on 08-15-2024 Rad - Other Radiology Report [id number]#1.00OTGTIFF [facility] XR CHEST 2 VWSon 08-14-2024 XR CHEST 2 VWS XR CHEST 2 VWS XR CHEST 2 VWS INDICATION: Chest cold. FINDINGS: The cardiac silhouette is normal in size. The trachea is midline. No focal pulmonary consolidation. No pleural effusion. No pneumothorax. IMPRESSION: Normal chest x-ray. Finalized by Modesto Montalvo MD on 08/14/2024 4:51 PM Normal [facility] Coding Summaryon 08-02-2024 Coding Summary HTMLBase 64 MsscqwngZKj4tBl+PGhlYWQ+PE 4WCUZnP05ymBEnxY7iD4UXSHlR MvccYMVNXGhDMmQwmmGqMY3zgY NjZXJu IC8+AY0qKWKlJfnaxYUmf8H6qF C0S84peg7nBElryUA1JPXgIjPj ckeni5nbcGw2OYieHdplVtNd HNOyxL70IAU2nZ85Tf60yATydW Xxo0ftuPn1OxNxRPDhJSI3bVnt KIkqv5AkGCZpZ64tqBPfz6I4 DKYqtVbglDPtQmDxmOE0qF2yWY ngteung0zfvocyZqb3zf48wMAr j9W8jFY7G5IpcsK6TXJifGSq TdcnqEICzE2cvplyc0grhsnlFg KcMZAyURi5PJm1TOHfwZarVhGa IF98FEO4SNEbxjDfH3GqVGHl cVouXzX8e8G0Xi2IV3NSIwxlY2 VNTUFSWTwvdGQ+ZU20vg79J9Fp XjcrCyq6KUQxOWQ7aDG1nI6x HRDqJPszh1Y8cCY5Y8BzpfErlx 4pf2rdUMDhJCyeF80tkJPru6V0 GRPfsMU6YCWwiNxiLaTtkW74 Oyc+PEXbxEmau5LnCqlss9iir9 jxvNu7LjjlNRMxwhAzsRcrQJR7 l4RnTu8lTBQwqOX8yRU6lL7l GzRcTrA2ETdsU752OrXxoZTtYk ztT71lX5IehZO+WRIpDwi7VYMt cJhzFD1kN2XaALUwmulubGNz bHbpPQ2uONZnnpntVXRweJ9tKO IoH1m6VbEvRmY3FTzuU4DnPIYw lprsMz74yK7yVsXkWpQ9JJzi Z2IuatW9ECYprYHcAZpiPHN7T4 7dr6H3LGGpFAQxIWL5aBN3bK8w bGlnbjogbGVmdDsgdmVydGlj HTwsJOgdT752GPCznEwgKuQnTV luZyBEYXRlOiAgMTEvMjcvMjAy NDwvdGQ+SFOdBNZ8jCsoCKKl aNUwRQmyBh1cjVuteCkfJT8tGC PwugxuPMMscU7iMOJgkDTqfYum WO1uJASjzykvf837VzPsXHO6 HTGwhJXqI3QchI0hClFeEJJpKW LcQ8XslNCgXItqI192BGxtFlF4 ZCBuwgZjX6HkKWNmuKejLvP3 h4M9Fz2Du7LbduwfO9YihREqEf UuZaanSQu8V0UtDnsgrWZ+PC90 EPInAA45EKb2JFW4cTokVQvj ERHzU5YszO8kBkXdFMLcZWBtFy c+PHRhYmxlIHdpZHRoPScxMDAl WgBeqCowWD1tHd0fVRTuVNIg oWbblXEsCjGke8fmZVGdSXenTT 6xnPiaF2UljGI7BKDlt9y4Pr79 Y91vX6ZpeCE+BIOkpSP4eYZ5 vI8pGgMiUzH6AFcvK401TjEgjJ WxPkpyl9dwe4gbbDh3UgX9FXZy fsHkmLfiPMT8r7UfJg21I34c IHdpZHRoPSIxNSUiIHZhbGlnbj 2hyR6gRh3+WLTmqWH7iUV0tM8u UpMcErU5ZCekJ431LnSblADk Peyyq0prv8tnoBq2VfHfMTIiqt DpzCscRQF1o9XoAa52L1BbeEjk e3DmEzs8qc65xOOoc8I4wQF6 F6LlWBQhavfvwBMvgRaoTZ7lVH JxoggwSPLjgC0kAKOpD0s7EbCo IsP1TRlrJ8LrunJ8SFVkeGSu SAQeeNQKgA0dipvhk9mfgsbmQp LqTWSwLXi6UPg4MSAugRkaClTw FWA5FnT3FST0qAYmsC4juScs ntztaU9wYta+MEV3dLExyROMMY 1lOjwvdGQ+TNUhNMU2vIqsBDoz OWIgnY7wBSZxG9j6WxEkDpT9 WGsjE5QnykB4XLYdzUElWPTjaA ZDnG1hyrovd5atdgowAtZnMZKy CDf4VHd6AXQrnXscIoQrETX7 EiX0EVX3mYCmsU0unUvrkbaxcX 9wOyc+BaarvKjoZDO2ZLi3H7Gr Jto8DQZdaJpeEG8gnNDqLPzd Wc5duGkfwLeqAP4bQLLlezqvu6 33UnAkw1rvSUFvxZOdDAnpRVF3 S35fp7B9RWAlWGKgGGS3nDQ0 iB2wkMghuvhorRPwePxcksFzeM lpJKexSJthY690OBIbgIzpGrUs YIv3E5SyZxe0PJGpyEwgTQ9i fGNwNRhgRt9gpOmnfHteET7iVT Hklbixt834WbLxn5qnWNHiwXPt FWpvUNZ5Y43dm2D7UYDsHOOn JUB2vHZ5rP8puYknezxurTMxdX chwdGejIqnUDmoFUjeM360YIZu xYupGmAuiJb3H8XiOeb0XVIr oSagYR1umBDnGTwoSm7xcQvrxK ryOK3rYSZnvsvvl861CvMpq7dk WSXlhXSmKJfsZYL2W78ar2J9 EXHmSXQqRQC8hZJ0lY8qeYkptq ogbGVmdDsgdmVydGljYWwtYWxp A045RRFcxYxzOiUpuHgyxhMs LUzpUIi3M3SdYhucnFN+PC90YW FbDN59sFGlwXOes7rucEt4GkUp JZZeNQO1dZfgFUnnh0OlPCEt H83xoLDaa4D1RKNtnFcjcPIyMf ZlnCE8tF6dNEqmpasrc6iiwzmv Kvydx2tyld40pJ39K19cMRwl AJBiOZFrYYKuEYTvkGutrz3moX 9wIi8+IZZztIL7qPO9lE8lDNGm MnK0FUtyH867GcNetZOeXohw a6era3ajhAm5SuT8MBWessSciA vfEHN1l3IuCy27J67aUMiyQDNd QIMnOBSfDPAoiEiert1ilJ1c Ii8+MQMlbJC8wIB9yP1bGbBjEx I4LBxvJ998GdMjzNEmYgpkL55u B1PvaYY+ANTgHgj5YNKemBkq HZ4btXTzMHvpMk2aXKV3EcVvZm WwTPhtM4IhFPKeiaqhnaeioSS1 RAOwTMNtzF55Qk3ccQjvCLCa fFMOkB5nnneon6vyvkgcWgDqEI OkYLc5KOd1YQAmrLkmSrVwSEW4 CdU1FTK3nOIgwA0hsDzidhhh zK1rP4MyVWWgpnjuVy69kC2pNb KyBpH6RLxeKit+TUFSVElOLCBN IJEEVYvPXPJJIV09CP54bNIg d5W9oSF8Y8CwBISajsfcxxnysP V1OKSqVYSfbB06jTTsPFbkSd5x k7W0w813ALYmUXOacT05Av9v iVuhTYMsyMBPaF5yxgpcq0tvix fdIlOfMBAjWYj7TMi0YIQdvPum KiVsJZB3KwY6ZHH7pCGihF5b eTlieuubhZ2oNzt+MDUvMjEvMT c5WtgugOW+RIJxUOK1yPowNEzm SQLvrJ8sASYwR6i9OsCsNiR2 TQnrC1BzYABsfbrrDq21xF9hDt RnCrT9YJfxS6AnwyC1WQYehGXn OYjxMBH1F57jo9M6APPyQYOn KQC0kDJ4rR8feKvpkzzwrKGxiG csuoGdjWvxOTeqHRmaS090TAKo rDqoJzH8NDylBYEtNS57OE09 bYKuo8Z8qGI4B0RsMGFxvpnais gxpQT8XIRrBCGftI24iURxYFhv Mq3lu3Y0a469NSOdZTTwlW97 Jd3vtGvlEZJslDNJrS3nnmory5 vcluqoSrVhZYQgQLf7ARa2XRVn rGjjMfPiMIH2LbA7MVZ9bXFm jB1txKltsmhufW5pOnv+RkVNQU sMRF19SN00pTVpy6D6tIT5R4Et SXCekfuzwzvkdAD4OIEbUONg eC24yAEfCLgkUk0wu9P0i404MP YyVFQpzA73Nj5qkSpqULFfeZRD lD0psbdzz8lrvfsjLgWpQDTf QZa2XYq3QBPxzDfxIiBoKFC0Dy Q3GZL6iZKlmW2wrJjlkdjscO2e Oyc+CYK4INS6bjanfga6F7Ys PjwvdHI+AB95GMGeMM81hJHzkR Vvy0plnCl2QrWeCJRmLXR2zZod MUmfr2CsVDLnB99tbWTib8A7 EVHhlPqegQZvOqYaaUP6xZ5pHP pkstfxb9smhscfJembp5aqnp50 kX53W00fIWmlJFSlVVRmVAPq JSPaiCgfdm3uwP5aYo3+PGNvbC S5fHO3tF2tBhFcQfZ5XOvqD383 BzNscSSqVqjhh7hiz8shrLd0 OoQzLFRyesAsiFjoZWW9r2VeMd 58H02cYFgsYSDuPOAcMHUfWQKn pNjvmz6msG2mZj6+UC5sv3nd xc79kJ68uRK+WPZqWVR6oIoyXC haBPBasF2cELsyPnL4JGObCdEa oW04mERlUEypFt3yeNyccUwo IH0fHMKzfyijt662WjHgm6vnSL BpuHHuZQbpTYY9G39ed2F8TUPn YEUtZRP5xLF9oJ6gfQpumunt bGVmdDsgdmVydGljYWwtYWxpZ2 25CGUcmGhzNmNbyAAjN5rxlnXP UU1kAejxpYB+LNTuJES5bDqr PQvrUBZseH7nTZWuL7b6PcCnQn E8YLhkC0XqtqZ4JOXfoPMjMSHz yFQVuB6nkbemq0txlyuuJgEx JFSlNMu8XGs4WGHyjAkrFiLrDH P9OsH9ADB4uINebK8ooMetqiqd oL8wNrk+RklOOjwvdGQ+PHRk ONV6bFpzYFamCYRtgD2iJROxB9 g6JeKdHxL9AHssF9MusdL0YJRu aNRiBMJzgVZHtH4woojym3oh zkdpVrYeENXyJOq6AVy1UDEkpC fyMoMtBCT8GfR7WLG0sSDjsX4k tKphxqtazY1sNiy+TVJOOjwv dGQ+WALuANS6bEkcXHedAXGciN 2gNKFyM5k0WwArEyX9HBnbM3Zi blV1NHCrgOPeNZUmcTMNvX4x ajocx8gztlxcXdEtPHTwRPq5BR o7EQRqsEahUbFhKOD1AyR0TEQ4 fCFutK3wdSvqwungrP5fHee+ DND8CFQ4RN95XL93O2PeMwegsW FibGU+PHRhYmxlIHdpZHRoPScx LOXvIoJtcMrdUF9kXx5hPJFz LWN (more content not included)... Normal [facility] CBC AND AUTO DIFFon 08-01-20 ABSOLUTE BASOPHIL 0.1 X10E9/L Normal 0.0-0.2 [facility] Comment on above: Performed By: #### C BCA #### [facility] ([id number]) [address], [address] [place] [address] ABSOLUTE NEUTROPHIL 5.2 X10E9/L Normal 1.5-6.6 [facility] Comment on above: Performed By: #### C BCA #### [facility] ([id number]) [address], [address] [place] [address] Basophils/100 WBC (Bld) 0.9 % Normal [facility] Comment on above: Performed By: #### C BCA #### [facility] ([id number]) [address], [address] [place] [address] Eosinophils (Bld) [#/Vol] 0.1 10*3/uL Normal 0.0-0.4 [facility] Comment on above: Performed By: #### C BCA #### [facility] ([id number]) [address], [address] [place] [address] Eosinophils/100 WBC (Bld) 1.1 % Normal [facility] Comment on above: Performed By: #### C BCA #### [facility] ([id number]) [address], [address] [place] [address] Erythrocyte distribution width (RBC) [Ratio] 16.9 % High 11.5-15.0 [facility] Comment on above: Performed By: #### C BCA #### [facility] ([id number]) [address], [address] [place] [address] Hematocrit (Bld) [Volume fraction] 28.5 % Low 35-47 [facility] Comment on above: Performed By: #### C BCA #### [facility] ([id number]) [address] [place] [address] Hemoglobin (Bld) [Mass/Vol] 8.6 g/dL Low 11.7-15.5 [facility] Comment on above: Performed By: #### C BCA #### [facility] ([id number]) [address], [address] [place] [address] Lymphocytes (Bld) [#/Vol] 2.0 10*3/uL Normal 1.0-3.5 [facility] Comment on above: Performed By: #### C BCA #### [facility] ([id number]) [address], [address] [place] [address] Lymphocytes/100 WBC (Bld) 25.7 % Normal [facility] Comment on above: Performed By: #### C BCA #### [facility] ([id number]) [address], [address] [place] [address] MCH (RBC) [Entitic mass] 22.1 pg Low 27-34 [facility] Comment on above: Performed By: #### C BCA #### [facility] ([id number]) [address], [address] [place] [address] MCHC (RBC) [Mass/Vol] 30.3 g/dL Low 32-36 [facility] Comment on above: Performed By: #### C BCA #### [facility] ([id number]) [address], [address] [place] [address] MCV (RBC) [Entitic vol] 73 fL Low 80-100 [facility] Comment on above: Performed By: #### C BCA #### [facility] ([id number]) [address], [address] [place] [address] Monocytes (Bld) [#/Vol] 0.4 10*3/uL Normal 0-0.9 [facility] Comment on above: Performed By: #### C BCA #### [facility] ([id number]) [address], [address] [place] [address] Monocytes/100 WBC (Bld) 4.6 % Normal [facility] Comment on above: Performed By: #### C BCA #### [facility] ([id number]) [address], [address] [place] [address] Neutrophils/100 WBC (Bld) 67.7 % Normal [facility] Comment on above: Performed By: #### C BCA #### [facility] ([id number]) [address], [address] [place] [address] Platelet mean volume (Bld) [Entitic vol] 8.8 fL Normal 7-12 [facility] Comment on above: Performed By: #### C BCA #### [facility] ([id number]) [address], [address] [place] [address] Platelets (Bld) [#/Vol] 257 10*3/uL Normal 150-450 [facility] Comment on above: Performed By: #### C BCA #### [facility] ([id number]) [address], [address] [place] [address] RBC COUNT 3.91 X10E12/L Normal 3.80-5.20 [facility] Comment on above: Performed By: #### C BCA #### [facility] ([id number]) [address], [address] [place] [address] WBC (Bld) [#/Vol] 7.7 10*3/uL Normal 4.0-11.0 [facility] Comment on above: Performed By: #### C BCA #### [facility] ([id number]) [address] [facility], [address] [place] [address] Lab - AP Resultson Lab - AP Results [id number]#1.[facility] 07-26-2024 Consent Forms [id number]#1.00[facility] Provider Orderson 07-26-2024 Provider Orders [id number]#1.00[facility] Anesthesia Noteon 07-25-2024 Anesthesia Note Patient: DEBORAH PINTO Age: 49 years Sex: FEMALE : 1975 Associated Diagnoses: None Author: Chilo Abernathy MD Postoperative Information Post Operative Note Health Status Allergies: Allergic Reactions (All) No known allergies Problem list (past medical history): All Problems Anxiety / SNOMED CT 40125061 / Confirmed Arthritis / SNOMED CT 5843318 / Confirmed Asthma / SNOMED CT 326876469 / Confirmed Constipated / SNOMED CT 09515444 / Confirmed Depressed / SNOMED CT 51770043 / Confirmed Thyroid disease / SNOMED CT 97684530 / Confirmed GERD (gastroesophageal reflux disease) / SNOMED CT 278495859 / Confirmed HTN (hypertension) / SNOMED CT 2054232483 / Confirmed Hypothyroid / SNOMED CT 56116006 / Confirmed Insomnia / SNOMED CT 250877426 / Confirmed IBS (irritable bowel syndrome) / SNOMED CT 06112712 / Confirmed Microcytic anemia / SNOMED CT 516184527 / Confirmed Migraine / SNOMED CT 62961522 / Confirmed Rheumatoid arthritis / SNOMED CT 874975785 / Confirmed Physical Examination VS/Measurements Vital Signs [...] on: 07/25/2024 13:53 EST] Chilo Abernathy MD [facility] Anesthesia Note Patient: DEBORAH PINTO Age: 49 [...] history): All Problems Anxiety / SNOMED CT 08758528 / Confirmed Arthritis / SNOMED CT 5338708 / Confirmed Asthma / SNOMED CT 156652721 / Confirmed Constipated / SNOMED CT 80835341 / Confirmed Depressed / SNOMED CT 18652245 / Confirmed Thyroid disease / SNOMED CT 09691780 / Confirmed GERD (gastroesophageal reflux disease) / SNOMED CT 252950246 / Confirmed HTN (hypertension) / SNOMED CT 0295199794 / Confirmed Hypothyroid / SNOMED CT 30996803 / Confirmed Insomnia / SNOMED CT 019782292 / Confirmed IBS (irritable bowel syndrome) / SNOMED CT 04870908 / Confirmed Microcytic anemia / SNOMED CT 318737280 / Confirmed Migraine / SNOMED CT 96571989 / Confirmed Rheumatoid arthritis / SNOMED CT 305513581 / Confirmed Histories Family History: Thyroid Sister Anxiety Mother Diabetes mellitus Mother Hypertension Father Mother Arthritis Mother CHF - Congestive heart failure Grandparent Migraine Sister Cancer Grandparent Crohn disease Grandparent Parkinsons disease Grandparent Procedure history: Thyroid (148273935). Knee (234774878). Foot (61572045). Tonsil (263731684). Appendectomy (238505848). Back (924693489). Social History Electronic Cigarette/Vaping Assessment Electronic Cigarette [...] (JUL 25:) Resp Rate 18 br/min (JUL 25) SBP H 138 mmHg (JUL 25:) DBP H 88 mmHg (JUL 25:) Weight 129.7 kg (JUL 25:) Review / Management Laboratory Results Plan [employer]#(ASA) physical status classification: Class III. Anesthetic Preoperative Plan Anesthesia: Monitored anesthesia care, non-triggering, vaporizors removed and machine flushed per protocol . Anesthetic plan, risks, benefits, and alternatives discussed with the patient and/or family. Patient verbalized understanding. [Electronically Signed on: 07/25/2024 09:17 EST] Chilo Abernathy MD [Verified on: 07/25/2024 09:17 EST] Chilo Abernathy MD [facility] Inpatient Patient Summaryon 07-25-2024 [place]patient [place] [address] Patient Discharge Instructions Name: BLAIRSUKUMARLAURO A : 1975 Patient Address: [address] [place] [address] Primary Care Provider: Name: TONEY MONTOYA DO After you are discharged if you find you have any questions, please, call [phone] ext [phone] to speak to a nurse. Discharge Diagnosis: 1:Microcytic anemia Prescription Information: If you have been given a prescription for narcotics, seek immediate medical attention if you have any difficulty breathing or any sudden status changes such as confusion and sleepiness. If you or anyone you know is experiencing suicidal thoughts, mental health, alcohol and/or drug addiction problems; contact the Mental Health & Recovery [facility] 29/03 Crisis Hotline -Text 4HUAI fs 938497. If you received any narcotics, sedation, or [...] business decisions or sign any legal documents [facility] would like to thank you for allowing us to assist you with your healthcare needs. The following includes patient education materials and information regarding your injury/illness. LAURO PINTO has been given the following list of follow-up instructions, prescriptions, and patient education materials: Follow-up Instructions With: Address: When: Korey Ford [address] [place] [address] Business (1) , only if needed With: [...] After the procedure, (more content not included)... [facility] 07-25-2024 L ------ Specimen: [id number] Received: 07/25/24 Status: WALDO Madsen Num: [id number] Spec Type: Surgical Subm Dr: Korey Ford MD Tissues: A Colon Biopsy (DESCENDING COLON POLYP) B Colon Biopsy (SIGMOID COLON POLYP) Procedures: HE/Alexx, Gross/Tg L4/2 Age/ Patient Sex Location Account Attending Physician Lauro Pinto 49/F [facility] [id number] Korey Ford MD SPEC NUM: [id number] RECD: 07/25/24 STATUS: WALDO MADSEN NUM: [id number] MIGUELITO: 07/25/24 [facility] DR: Korey Ford MD ENTERED: 07/25/[address] [facility] [address]: Leighton Jane SPEC TYPE: Surgical DEPT: MAG KULKARNI ENTERED BY: [id number] RECV BY: [id number] ORDERED: HE/4, Gross/Micro L4/2 ORDERED: HE/4, Gross/Micro [...] submitted in a single cassette. (1, ns, [id number] A) J Part B is received in formalin labeled with the patients name, date of , and sigmoid colon polyp is a duarte-perez, focally erythematous, friable, 0.4 cm polypoid fragment. The specimen is inked black at the apparent point of attachment, bisected, and entirely submitted in a single cassette. (1, ns, [id number] B) JG Specimen: [id number] Received: 07/25/24 Status: WALDO Jeanyashira Num: [id number] Spec Type: Surgical Subm Dr: Korey Ford MD Tissues: A Colon Biopsy (DESCENDING COLON POLYP) B Colon Biopsy (SIGMOID COLON POLYP) Procedures: HE/4, Gross/Micro L4/2 Patient: Lauro Pinto [id number] (Continued) Specimen: [id number] Received: 07/25/24 (Continued) Signed (signature on file) Brody Jordan MD 07/26/24 1445 Specimen: [id number] Received: 07/25/24 Status: WALDO Madsen Num: [id number] Spec Type: Surgical Subm Dr: Korey Ford MD Tissues: A Colon Biopsy (DESCENDING COLON POLYP) B Colon Biopsy (SIGMOID COLON POLYP) Procedures: JADA/Herson Coffey/Tg L4/2 Patient: Lauro Pinto [id number] (Continued) Specimen: [id number] Received: 07/25/24 (Continued) CPT Codes 61516h9 Specimen: [id number] Received: 07/25/24 Status: WALDO Madsen Num: [id number] Spec Type: Surgical Subm Dr: Korey Ford MD Tissues: A Colon Biopsy (DESCENDING COLON POLYP) B Colon Biopsy (SIGMOID COLON POLYP) Procedures: JAAD/Herson Coffey/Tg L4/2 Patient: Lauro Pinto [id number] (Continued) Signed (signature on file) Brody Jordan MD 07/26/[address] [facility]R Intraoperative Recordon 07-25-2024 MAGR Intraoperative Record MAGR Intra-Op Record Summary Primary Physician: Korey Ford MD Finalized Date/Time: 07/25/24 12:59:58 Pt. Name: LAURO PINTO/Sex: 1975 FEMALE Med Rec #: [id number] Physician: Korey Ford MD Financial #: [id number] Pt. Type: D Room/Bed: / Admit/Disch: 07/25/24 [...] Role Performed Surgeon - Primary Anesthesiologist of Sprinkler Fitter Helper Record Time In 07/25/24 09:01:00 07/25/24 09:01:00 07/25/24 09:01:00 Time Out 07/25/24 09:31:00 07/25/24 09:31:00 07/25/24 09:31:00 Procedure Esophagogastroduodenosco Esophagogastroduodenosco Esophagogastroduodenosco py and Colonosco py and Colonosco py and Colonosco Last Modified By: Isabel Martinez RN, Erica RN Baumer, Erica RN 07/25/24 09:37:34 07/25/24 09:37:34 07/25/24 09:37:34 Entry 4 Entry 5 Case Attendee Awilda Castillo CSFA Lianna Box CUSTOMER ACCOUNT MANAGER CUSTOMER ACCOUNT MANAGER CSFA Role Performed Scrub Personnel Returned Goods Repairer Time In 07/25/24 09:01:00 07/25/24 09:01:00 Time [...] Abernathy MD, Isabel Martinez RN, Lianna Box CUSTOMER ACCOUNT MANAGER CSFA, Awilda Castillo [facility] CUSTOMER ACCOUNT MANAGER Last Modified By: Isabel Martinez RN 07/25/24 [...] Met (O.80 (more content not included)... Normal [facility] MAGR Postoperative Recordon 07-25-2024 MAGR Postoperative Record MAGR Phase II Record Summary Primary Physician: Korey Ford MD Finalized Date/Time: 07/25/24 10:30:12 Pt. Name: LAURO PINTO/Sex: 1975 FEMALE Med Rec #: [id number] Physician: Korey Ford MD Financial #: [id number] Pt. Type: D Room/Bed: / Admit/Disch: 07/25/24 [...] Signed By: Jumana Herbert RN 07/25/24 10:30 [facility] Preoperative Recordon 1 09-24-2023 [facility] Preoperative Record [facility] Pre-Op Record Summary Primary Physician: Korey Ford MD Finalized Date/Time: 07/25/24 09:05:27 Pt. Name: LAURO PINTO/Sex: 1975 FEMALE Med Rec #: [id number] Physician: Korey Ford MD Financial #: [id number] Pt. Type: D Room/Bed: / Admit/Disch: 07/25/24 [...] By: Isabel Martinez RN 07/25/24 09:05 Normal [facility] Patient Handouton 07-25-2024 Patient Handout Radiology [...] that are easy to digest. ? Take iooz-nzt-sjkdori and prescription medicines only as told by [...] provider. Document Revised: 10/05/2023 Document Reviewed: 04/15/2022 [employer] Patient Education ? 2023 [employer]. Normal [facility] Test Urine 1on U Preg Negative [facility] Comment on above: Performed By: #### 3 [id number] ####[facility] (DEFAULT)[address] [place] [address] U Preg Internal Control Pass [facility] Comment on above: Performed By: #### 3 [id number] ####[facility] (DEFAULT)[address] [place] [address] Progress Note - Nurseon 07-07 Progress Note - Nurse Provider Scribe spoke with pt and pt stated that she has a family hx of malignant hyperthermia. Per pt her moms sister had an issue. Pt put life underwriter on a 3 way call with pts mom. Per pts mom her sister had to be packed in ice and pts younger sister also had an issue. After speaking with pt and pts mom life underwriter let Dr Abernathy know the above details. [Electronically Signed on: 07/24/2024 11:38 EST] Jumana Herbert RN [Verified on: 07/24/2024 11:38 EST] Jumana Herbert RN [facility] Outside Recordson 06-28-2024 Outside Records [id number]#1.00OTGTIF F [facility] Lab - Other Lab Resultson Lab - Other Lab Results [id number]#1.00OTGTIF F [facility] CBC AND AUTO DIFFon 06-22-20 24 ABSOLUTE BASOPHIL 0.0 X10E9/L Normal 0.0-0.2 [facility] Comment on above: Performed By: #### 2 4331-1, THYR, CBCA, CMP #### [facility] ([id number]) [address] [facility], [address] [place] [address] ABSOLUTE NEUTROPHIL 5.6 X10E9/L Normal 1.5-6.6 [facility] Comment on above: Performed By: #### 2 4331-1, THYR, CBCA, CMP #### [facility] ([id number]) [address], [address] [place] [address] Basophils/100 WBC (Bld) 0.5 % Normal [facility] Comment on above: Performed By: #### 2 4331-1, THYR, CBCA, CMP #### [facility] ([id number]) [address] [address] [place] [address] Eosinophils (Bld) [#/Vol] 0.1 10*3/uL Normal 0.0-0.4 [facility] Comment on above: Performed By: #### 2 4331-1, THYR, CBCA, CMP #### [facility] ([id number]) [address], [address] [place] [address] Eosinophils/100 WBC (Bld) 0.9 % Normal [facility] Comment on above: Performed By: #### 2 4331-1, THYR, CBCA, CMP #### [facility] ([id number]) [address] [address] [place] [address] Erythrocyte distribution width (RBC) [Ratio] 16.8 % High 11.5-15.0 [facility] Comment on above: Performed By: #### 2 4331-1, THYR, CBCA, CMP #### [facility] ([id number]) [address] [address] [place] [address] Hematocrit (Bld) [Volume fraction] 28.9 % Low 35-47 [facility] Comment on above: Performed By: #### 2 4331-1, THYR, CBCA, CMP #### [facility] ([id number]) [address] [facility] [address] [place] [address] Hemoglobin (Bld) [Mass/Vol] 8.8 g/dL Low 11.7-15.5 [facility] Comment on above: Performed By: #### 2 4331-1, THYR, CBCA, CMP #### [facility] ([id number]) [address] [address] [place] [address] Lymphocytes (Bld) [#/Vol] 1.7 10*3/uL Normal 1.0-3.5 [facility] Comment on above: Performed By: #### 2 4331-1, THYR, CBCA, CMP #### [facility] ([id number]) [address] [address] Lymphocytes/100 WBC (Bld) 22.0 % Normal [facility] Comment on above: Performed By: #### 2 4331-1, THYR, CBCA, CMP #### [facility] ([id number]) [address] [address] MCH (RBC) [Entitic mass] 22.2 pg Low 27-34 [facility] Comment on above: Performed By: #### 2 4331-1, THYR, CBCA, CMP #### [facility] ([id number]) [address] [address] MCHC (RBC) [Mass/Vol] 30.4 g/dL Low 32-36 [facility] Comment on above: Performed By: #### 2 4331-1, THYR, CBCA, CMP #### [facility] ([id number]) [address] [address] [place] [address] MCV (RBC) [Entitic vol] 73 fL Low 80-100 [facility] Comment on above: Performed By: #### 2 4331-1, THYR, CBCA, CMP #### [facility] ([id number]) [address] [address] [place] [address] Monocytes (Bld) [#/Vol] 0.4 10*3/uL Normal 0-0.9 [facility] Comment on above: Performed By: #### 2 4331-1, THYR, CBCA, CMP #### [facility] ([id number]) [address] [facility] [address] [place] [address] Monocytes/100 WBC (Bld) 4.9 % Normal [facility] Comment on above: Performed By: #### 2 4331-1, THYR, CBCA, CMP #### [facility] ([id number]) [address], [facility] [address] [place] [address] Neutrophils/100 WBC (Bld) 71.7 % Normal [facility] Comment on above: Performed By: #### 2 4331-1, THYR, CBCA, CMP #### [facility] ([id number]) [address], [address] [place] [address] Platelet mean volume (Bld) [Entitic vol] 8.9 fL Normal 7-12 [facility] Comment on above: Performed By: #### 2 4331-1, THYR, CBCA, CMP #### [facility] ([id number]) [address] [address] [place] [address] Platelets (Bld) [#/Vol] 316 10*3/uL Normal 150-450 [facility] Comment on above: Performed By: #### 2 4331-1, THYR, CBCA, CMP #### [facility] ([id number]) [address], [address] [place] [address] RBC COUNT 3.96 X10E12/L Normal 3.80-5.20 [facility] Comment on above: Performed By: #### 2 4331-1, THYR, CBCA, CMP #### [facility] ([id number]) [address], [address] [place] [address] WBC (Bld) [#/Vol] 7.8 10*3/uL Normal 4.0-11.0 [facility] Comment on above: Performed By: #### 2 4331-1, THYR, CBCA, CMP #### [facility] ([id number]) [address], [address] [place] [address] COMPREHENSIVE METABOLIC PANE Claudio 06-22-2024 Albumin [Mass/Vol] 3.7 g/dL Normal 3.2-5.3 [facility] Comment on above: Performed By: #### 2 4331-1, THYR, CBCA, CMP #### [facility] ([id number]) [address], [address] [place] [address] ALP [Catalytic activity/Vol] 50 U/L Normal 39-130 [facility] Comment on above: Performed By: #### 2 4331-1, THYR, CBCA, CMP #### [facility] ([id number]) [address], [address] [place] [address] ALT [Catalytic activity/Vol] 4 U/L Normal 0-31 [facility] Comment on above: Performed By: #### 2 4331-1, THYR, CBCA, CMP #### [facility] ([id number]) [address], [address] [place] [address] Anion gap [Moles/Vol] 9 mmol/L Normal 5-15 [facility] Comment on above: Performed By: #### 2 4331-1, THYR, CBCA, CMP #### [facility] ([id number]) [address], [address] [place] [address] AST [Catalytic activity/Vol] 14 U/L Normal 0-41 [facility] Comment on above: Performed By: #### 2 4331-1, THYR, CBCA, CMP #### [facility] ([id number]) [address] [address] [place] [address] Bilirubin [Mass/Vol] 0.5 mg/dL Normal 0.3-1.2 [facility] Comment on above: Performed By: #### 2 4331-1, THYR, CBCA, CMP #### [facility] ([id number]) [address] [address] [place] [address] Calcium [Mass/Vol] 9.1 mg/dL Normal 8.5-10.5 [facility] Comment on above: Performed By: #### 2 4331-1, THYR, CBCA, CMP #### [facility] ([id number]) [address] [address] [place] [address] Chloride [Moles/Vol] 102 mmol/L Normal 98-109 [facility] Comment on above: Performed By: #### 2 4331-1, THYR, CBCA, CMP #### [facility] ([id number]) [address] [address] [place] [address] CO2 [Moles/Vol] 26 mmol/L Normal 22-32 [facility] Comment on above: Performed By: #### 2 4331-1, THYR, CBCA, CMP #### [facility] ([id number]) [address] [address] [place] [address] Creatinine [Mass/Vol] 0.81 mg/dL Normal 0.40-1.00 [facility] Comment on above: Result Comment: METH OD TRACEABLE TO IDMS STANDARD Performed By: #### 2 4331-1, THYR, CBCA, CMP #### [facility] ([id number]) [address] [address] [place] [address] GFR/1.73 sq M.predicted among non-blacks MDRD (S/P/Bld) [Vol rate/Area] 89 mL/min/{1.73_m2} Normal >59 [facility] Comment on above: Result Comment: Reported eGFR is based on the CKD-EPI 2021 equation that does not use a race coefficient. Performed By: #### 2 4331-1, THYR, CBCA, CMP #### [facility] ([id number]) [address] [address] [place] [address] Glucose [Mass/Vol] 84 mg/dL Normal 65-99 [facility] Comment on above: Performed By: #### 2 4331-1, THYR, CBCA, CMP #### [facility] ([id number]) [address] [address] [place] [address] Potassium [Moles/Vol] 4.3 mmol/L Normal 3.5-5.0 [facility] Comment on above: Performed By: #### 2 4331-1, THYR, CBCA, CMP #### [facility] ([id number]) [address] [address] [place] [address] Protein [Mass/Vol] 6.8 g/dL Normal 6.0-8.0 [facility] Comment on above: Performed By: #### 2 4331-1, THYR, CBCA, CMP #### [facility] ([id number]) [address] [address] [place] [address] Sodium [Moles/Vol] 137 mmol/L Normal 134-146 [facility] Comment on above: Performed By: #### 2 4331-1, THYR, CBCA, CMP #### [facility] ([id number]) [address] [address] [place] [address] Urea nitrogen [Mass/Vol] 11 mg/dL Normal 5-23 [facility] Comment on above: Performed By: #### 2 4331-1, THYR, CBCA, CMP #### [facility] ([id number]) [address] [address] [place] [address] Lipid 1996 panelon 4 Cholesterol [Mass/Vol] 162 mg/dL Normal 150-200 [facility] Comment on above: Performed By: #### 2 4331-1, THYR, CBCA, CMP #### [facility] ([id number]) [address], [address] [place] [address] Cholesterol in HDL [Mass/Vol] 75 mg/dL Normal >39 [facility] Comment on above: Result Comment: HDL <40 mg/dL - High Risk HDL > or = 40mg/dL- Desirable HDL >60 mg/dL - Negative Risk Performed By: #### 2 4331-1, THYR, CBCA, CMP #### [facility] ([id number]) [address], [address] [place] [address] Cholesterol in LDL [Mass/Vol] 71 mg/dL Normal <130 [facility] Comment on above: Result Comment: LDL <100 mg/dL - Desirable LDL >160 mg/dL - High Risk Performed By: #### 2 4331-1, THYR, CBCA, CMP #### [facility] ([id number]) [address], [address] [place] [address] Cholesterol in VLDL [Mass/Vol] 16 mg/dL Normal 0-30 [facility] Comment on above: Performed By: #### 2 4331-1, THYR, CBCA, CMP #### [facility] ([id number]) [address], [address] [place] [address] CHOLESTEROL:HDL 2.2 Normal 1.0-5.0 [facility] Comment on above: Performed By: #### 2 4331-1, THYR, CBCA, CMP #### [facility] ([id number]) [address], [address] [place] [address] Triglyceride [Mass/Vol] 81 mg/dL Normal 27-150 [facility] Comment on above: Performed By: #### 2 4331-1, THYR, CBCA, CMP #### [facility] ([id number]) [address], [address] [place] [address] THYROID PROFILEon 06-22-2024 Free T4 [Mass/Vol] 1.62 ng/dL High 0.61-1.60 [facility] Comment on above: Performed By: #### 2 4331-1, THYR, CBCA, CMP #### [facility] ([id number]) [address], [address] [place] [address] TSH 0.02 uIU/mL Low 0.49-4.67 [facility] Comment on above: Performed By: #### 2 4331-1, THYR, CBCA, CMP #### 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 She is now s/p completion thyroidectomy -advised her to establish care with local maintenance mechanic elevators to discuss BOB. They may just decide [...] DAILY Vitals Vital Signs Recorded: 19Dec2021 04:25PM Vbtgxqugtlm72.8 F Height6 ft 1 in Pojfmx331 lb 9.6 oz BMI Akqwyavcxt96.33 kg/m2 BSA Calculated2.71 Tobacco Useb) No Fall [...] intact. Neck incision healing well Results/Data Surgical [id number] 09:52AMEdy Dominguez [Dec 18, 2021 4:12PM Edy Dominguez] f/u 12/19 Test NameResultFlagReference Case Surgical Pathology(Report) Name LAURO PINTO Pathologist: LILLI AMAYA ASA, MD, PhD Date of Procedure: 12/04/2021 Date Received: 12/04/2021 Date Reported 12/10/2021 Submitting Physician: EDY DOMINGUEZ MD Location: [facility] Other External # FINAL DIAGNOSIS A. RIGHT [...] in toto superior to inferior AMD amd/12/06/2021 [facility] Department of Pathology [address] [place] [address] Procedure 'Scores and Scales' Signatures Electronically signed by : Edy Dominguez MD; Dec 19 2021 7:05PM EST (Author) Normal [employer] Tobacco Screening.on 022 Fall risk assessment a) No falls within the last year [facility]-Otolaryngol [facility] Work Phone: Tobacco use status [facility] b) [...] provided Objective Data: Objective Information: T PRBPMAPSpO2 Value36.51931397/871699% Date/Time12/05 4:004/ 4:004/ 4:004/ 4:003/31 17:004/1 4:00 Range(36.2C - 37.2C ) (79 - 90 ) (16 - 18 ) (117 - 142 )/ (59 - 67 ) (90 - 90 ) (93% - 94% ) Highest temp of 37.2 C was recorded at 12/04 20:00 Pain reported at 12/05 5:10: 3 = Mild ---- Intake and Output ----- Mn/Dy/Year TimeIntakeOutputNet Dec 04, 2021 10:00 pm000 Dec 04, 2021 2:00 [id number] The Intake and Output Totals for the last 24 hours are: IntakeOutputNet [id number] Recent Lab Results: Results: RFP: 12/04/2021 11:09 [...] Updated: 05-Dec-2021 07:10 by Edy Dominguez) Normal [facility] MAGNESIUMon 12-05-2021 Magnesium [Mass/Vol] 1.80 mg/dL Normal 1.60 - 2.40 [facility] Comment on above: Performed By: #### M G #### [facility] [address] [place] [address] Magnesium, Serumon Magnesium [Mass/Vol] 1.80 mg/dL See Below MG-Otolaryngol Dave Work Phone: Comment on above: Reference Range: 1.6 0 - 2.40 PARATHYROID HORMONE,INTACTon 12-05-2021 PARATHYROID HORMONE,INTACT 77.2 pg/mL Normal 12.0 - 88.0 [facility] Comment on above: Performed By: #### P TH #### [address] [address] Parathormone Intact, Serumon 12-05-2021 Parathyrin.intact [Mass/Vol] 77.2 pg/mL See Below -Otolaryngol Dave Work Phone: Comment on above: Reference Range: 12. 0 - 88.0 RENAL FUNCTION PANELon 12-05 Albumin [Mass/Vol] 3.4 g/dL Normal 3.4 - 5.0 [facility] Comment on above: Performed By: #### R ENAL #### [address] [address] Anion gap [Moles/Vol] 11 mmol/L Normal 10 - 20 [facility] Comment on above: Performed By: #### R ENAL #### [address] [address] Calcium [Mass/Vol] 8.5 mg/dL Low 8.6 - 10.3 [facility] Comment on above: Performed By: #### R ENAL #### [address] [address] Chloride [Moles/Vol] 105 mmol/L Normal 98 - 107 [facility] Comment on above: Performed By: #### R ENAL #### [address] [address] Creatinine [Mass/Vol] 0.77 mg/dL Normal 0.50 - 1.05 [facility] Comment on above: Performed By: #### R ENAL #### [address] [address] eGFR FEMALE >90 Normal >90 [facility] Comment on above: Result Comment: CALC ULATIONS OF ESTIMATED GFR ARE PERFORMED USING THE 2020 CKD-EPI STUDY REFIT EQUATION WITHOUT THE RACE VARIABLE FOR THE IDMS-TRACEABLE CREATININE METHODS. https://jasn.asnjournals.org/content/early//ASN.163206303 8 Performed By: #### R ENAL #### [address] [address] Glucose [Mass/Vol] 123 mg/dL High 74 - 99 [facility] Comment on above: Performed By: #### R ENAL #### [address] [address] HCO3 (Bld) [Moles/Vol] 25 mmol/L Normal 21 - 32 [facility] Comment on above: Performed By: #### R ENAL #### [address] [address] Phosphate [Mass/Vol] 3.6 mg/dL Normal 2.5 - 4.9 [facility] Comment on above: Result Comment: The performance characteristics of phosphorus testing in heparinized plasma have been validated by the individual laboratory site where testing is performed. Testing on heparinized plasma is not approved by the FDA; however, such approval is not necessary. Performed By: #### R ENAL #### [address] [address] Potassium [Moles/Vol] 4.4 mmol/L Normal 3.5 - 5.3 [facility] [place] Comment on above: Performed By: #### R ENAL #### [address] [address] Sodium [Moles/Vol] 137 mmol/L Normal 136 - 145 [facility] Comment on above: Performed By: #### R ENAL #### [address] [address] Urea nitrogen [Mass/Vol] 17 mg/dL Normal 6 - 23 [facility] [place] Comment on above: Performed By: #### R ENAL #### [address] [address] Renal Function Panelon 12-05 Albumin BCP dye [Mass/Vol] 3.4 g/dL 3.4 - 5.0 [facility] Work Phone: Anion gap [Moles/Vol] 11 mmol/L 10 - 20 [facility] Work Phone: Calcium [Mass/Vol] 8.5 mg/dL below low threshold 8.6 - 10.3 [facility] Work Phone: Chloride [Moles/Vol] 105 mmol/L 98 - 107 [facility] Work Phone: CO2 [Moles/Vol] 25 mmol/L 21 - 32 [facility] Work Phone: Creatinine [Mass/Vol] 0.77 mg/dL See Below [facility] Work Phone: Comment on above: Reference Range: 0.5 0 - 1.05 Glucose [Mass/Vol] 123 mg/dL above high threshold 74 - 99 [facility] Work Phone: Phosphate [Mass/Vol] 3.6 mg/dL 2.5 - 4.9 [facility] Work Phone: Comment on above: The performance ya acteristics of phosphorus testing in heparinized plasma have been validated by the individual laboratory site where testing is performed. Testing on heparinized plasma is not approved by the FDA; however, such approval is not necessary. Potassium [Moles/Vol] 4.4 mmol/L 3.5 - 5.3 [facility] Work Phone: Sodium [Moles/Vol] 137 mmol/L 136 - 145 [facility] l[facility] Work Phone: Urea nitrogen [Mass/Vol] 17 mg/dL 6 - 23 [facility] Work Phone: Renal Function Panel >90 >90 [facility] Work Phone: Comment on above: CALCULATIONS OF ROSALIA MATED GFR ARE PERFORMED USING THE 2020 CKD-EPI STUDY REFIT EQUATION WITHOUT THE RACE VARIABLE FOR THE IDMS-TRACEABLE CREATININE METHODS.https://jasn.asnjournals.org/content//ASN.2 119263738 Admission Risk Screen - Adul ton 12-04-2021 Admission Risk Screen - Adult Allergies: Allergies: Succinylcholine Chloride: Unknown (Severe) Patient Verification: New W ID Band Applied in my Departmentno Type of ID Patient is WearingW wristband, but not applied here Patient Transferred from Other Facility ([facility], [facility],etc)no Patient Identity Verified Bypatient ID [...] AlertFor Ebola-like Symptoms: Isolate Patient and Notify Provider/Joiners Supervisor For Contact: Notify Provider/Joiners Supervisor Advance Directive: Advance Directive/DNRno Advance Directive Information [...] Learning Preferencesverbal instruction Cultural Considerationsnone Developmental Considerationsnone Holiness Considerationsnone Learning Assessment (Other Learner): Other learner availableno Depression Screen: During the past month, have you often been bothered by feeling down, depressed or hopelessno During the past month, have you often had little interest or pleasure in doing thingsno Have you had any thoughts of harming anyone elseno Nocona Suicide: Risk Screen Not Applicable/Able to Answerable to be screened In the Past Month: Have you wished you were or could go to sleep and not wake upno(1) In the Past Month: Have you had any actual thoughts of killing yourself no(1) Lifetime: Have you ever done, started to do, or prepared to do anything to end your lifeno(1) Nocona Suicide Risknegative Adult Nutrition Screen: Have you [...] Spiritual Screen: Are there any cultural, spiritual, methodist practices/values/needs that are important for us to knowno CAGE: Is this an injured patient at a Trauma Center ([facility]/Cathy/Keyona/Wily/Haim Woo/Kristine): no Vaccinations: Vaccination - Influenza Vaccination Screen: Is it flu season (between and December 04)Yes Screening for identified contraindications to influenza vaccination patient/caregiver refusal Vaccination - Pneumonia Vaccination Screen: Patient has received a previous pneumonia vaccine:no/unknown... Immunocompetent persons with underlying chronic conditions or reside in ad terminal makeup operator care facilitiesnone of these conditions Persons with Functional or Anatomic Asplenianone of these conditions Immunocompromised Personsnone of these conditions Pneumonia v (more content not included)... Normal [facility] CORONAVIRUS 2019, SCREEN ASY MPTOMATICon 12-04-2021 DATE OF SYMPTOM ONSET [YYYYMMDD]? Canceled Normal [facility] Comment on above: Order Comment: TEST PT/INR WAS CANCELLED, 07/07/2021 12:20 SPECIMEN CLOTTED.PLEASE RESUBMITDUPLICATE ORDER. Performed By: #### P TINR #### [place] [address] SARS-CoV-2 (COVID-19) RNA APURVA+probe Ql (Unsp spec) Canceled Normal [facility] Comment on above: Order Comment: TEST PT/INR WAS CANCELLED, 07/07/2021 12:20 SPECIMEN CLOTTED.PLEASE RESUBMITDUPLICATE ORDER. Result Comment: . This test has received FDA Emergency Use Authorization (EUA) and has been verified by [facility]. This test is only authorized for the duration of time that circumstances exist to justify the authorization of the emergency use of in vitro diagnostic tests for the detection of SARS-CoV-2 virus and/or diagnosis of COVID-19 infection under section 564(b)(1) of the Act, 21 U.S.C. 360bbb-3(b)(1), unless the authorization is terminated or revoked sooner. [facility] is certified under CLIA-88 as qualified to perform high complexity testing. Testing is performed in the [facility] laboratory located at [address] [place] [address]. SARS-CoV-2/Flu/RSV Multiplex Test: Fact sheet for providers: https://www.fda.gov/media/869494/download Fact sheet for patients: https://www.fda.gov/media/171735/download Performed By: #### P TINR #### [address] [place] [address] Lab Specimen Source Nasal, Nasopharyngeal Normal [facility] Comment on above: Order Comment: TEST PT/INR WAS CANCELLED, 07/07/2021 12:20 SPECIMEN CLOTTED.PLEASE RESUBMITDUPLICATE ORDER. Performed By: #### P TINR #### [address] [place] [facility] Clinical Intervention - Phar macyon 12-04-2021 Clinical Intervention - Pharmacy Pharmacist's Clinical Intervention: Is this intervention medication reconciliation related: yes, History Electronic Signatures: Feliciano Martínez ([employer]) (Signed 04-Dec-2021 13:41) Authored: Pharmacist's Clinical Intervention Last Updated: 04-Dec-2021 13:41 by Feliciano Martínez ([employer]) Normal [facility] Coronavirus 2019 RNA by PCR, Screening Asymptomticon 12-04-2021 Date and time of symptom onset Canceled [facility] Work Phone: Coronavirus 2019 RNA by PCR, Screening Asymptomtic Canceled [facility] Work Phone: Comment on above: SOURCE: Nasal, Nasop haryngeal.This test has received FDA Emergency Use Authorization (EUA) and has been verified by [facility]. This test is only authorized for the duration of time that circumstances exist to justify the authorization of the emergency use of in vitro diagnostic tests for the detection of SARS-CoV-2 virus and/or diagnosis of COVID-19 infection under section 564(b)(1) of the Act, 21 U.S.C. 360bbb-3(b)(1), unless the authorization is terminated or revoked sooner. [facility] is certified under CLIA-88 as qualified to perform high complexity testing. Testing is performed in the [facility] laboratory located at [address] [place] [address] [address] [place] [id number].SARS-CoV-2/Flu/RSV Multiplex Test: Fact sheet for providers: https://www.fda.gov/media/718504/downloadFact sheet for patients: https://www.fda.gov/media/032512/download Discharge Oikzeuv9pe 022 Discharge Profile2 Discharge Orders: Anticipated Discharge Date: Anticipated Discharge Tlqj55-Mnn-4887 Anticipated Discharge Time11:00 Problem List: Additional Dx: [...] (POV) Call to Schedule in2 weeks Phone [phone], please call with any questions CommentsYou will [...] REVIEW of Orders, Appointments, Gold Form - Nurse Ldr Summary Alejandra Shukla (ASST N MGR) (Signed 05-Dec-19 (more content not included)... Normal [facility] HCG,URINEon 12-04-2021 Beta HCG ( test) Ql (U) Negative Normal Negative [facility] Comment on above: Performed By: #### H CGU #### [facility] [address] [place] [address] No Panel Informationon 12-04 Name JEAN-CLAUDE PINTO Pathologist: LILLI AMAYA ASA, MD, PhD Date of Procedure: 12/04/2021 Date Receive [facility] Work Phone: Order Reconciliationon 12-04 Order Reconciliation [...] orally christina (more content not included)... Normal [facility] Order Reconciliation Page 1 Admission Reconciliation Document [...] for pain not controlled with tylenol an roserin, ICD10: [id number]-3720 Reviewed and Held Vraylar 1.5 mg oral capsule 1 cap(s) orally once a [id number]-8315 Cariprazine Capsule (VRAYLAR)DOSE = 1.5 mg Oral DailyVraylar 1.5 mg oral capsule continued as the inpatient order Cariprazine Zoloft 25 mg oral tablet 0.5 tab(s) orally once a [id number]-4889 Reviewed and Held Additional Current Orders Acetaminophen [...] Every 2 Hours, PRN Sore Throat Normal [facility] PARATHYROID HORMONE,INTACTon 12-04-2021 PARATHYROID HORMONE,INTACT 38.9 pg/mL Normal 12.0 - 88.0 [facility] Comment on above: Performed By: #### P TH #### [facility] [address] [place] [id number] Parathormone Intact, Serumon 12-04-2021 Parathyrin.intact [Mass/Vol] 38.9 [...] applicable(1) Weight in kg155.9 kilogram(s)(2) Weight in kny613.7 pound(s) Weight Methodstated Scale Typebed Height in [...] Profile - Adult v2 10-Jul-2021 12:57 Normal [facility] Patient Profile - Preop v3on 12-04-2021 Patient Profile - Preop v3 Patient Profile - Preop: Initial Info: Patient DemographicsName: LAURO PINTO Date: 1975 Address: [address] [place] [address] Primary Phone [phone] How to be Addressedmichelle Spoken Language PreferredEnglish Source of Informationpatient Stated Reason for Admissionthyroidectomy Primary Contact Name and Numberbrenda-mother Limitations on Visitors/Phone Callsonly immediate family may visit Medications Brought to Hospitalno General Health: Weight in kg155.9 kilogram(s) Weight in toe823.7 pound(s) Weight Methodstated Height in feet6 feet Height in inches0.95 inch(es) Height in cm185.2 centimeter(s) Height Methodstated BMI (kg/m2)45.453 square meter Patient or Family Member Reaction to Anesthesiafamily reaction; no previous reaction Family Reaction to Anesthesiamalignant hyperthermia Blood Avoidance/Restrictionsnone Previous Transfusion Reactionnot applicable Health Mgmt: [facility]; respiratory Are You no Are You Currently Breastfeedingno Barriers to Managing Healthnone Relationship/Environ: Lives Withdependent child(fely) Living Arrangementshouse Resource/Environmental Concernsnone Anticipated Transition Toinpatient acute unit Services Anticipated at Transitionnone Tobacco Use: Tobacco Useno Pre-op Checklist: Arrival [id number] Arrival Time06:03 Procedure Typethyroidectomy NPOyes Last Food Fpeuhw44-Qgq-8287 20:00 Last Clear Fluid Tbtfxy75-Bkb-3431 20:00 ID Band On Patientpatient ID (name), [...] 04-Dec-2021 06:47 by Portia Naylor (SALLY) Normal [facility] RENAL FUNCTION PANELon 12-04 Albumin [Mass/Vol] 3.6 g/dL Normal 3.4 - 5.0 [facility] Comment on above: Performed By: #### R ENAL #### [address] [address] Anion gap [Moles/Vol] 13 mmol/L Normal 10 - 20 [facility] Comment on above: Performed By: #### R ENAL #### [address] [address] Calcium [Mass/Vol] 8.5 mg/dL Low 8.6 - 10.3 [facility] Comment on above: Performed By: #### R ENAL #### [address] [address] Chloride [Moles/Vol] 106 mmol/L Normal 98 - 107 [facility] Comment on above: Performed By: #### R ENAL #### [address] [address] Creatinine [Mass/Vol] 0.89 mg/dL Normal 0.50 - 1.05 [facility] Comment on above: Performed By: #### R ENAL #### [address] [address] GFR/1.73 sq M.predicted among non-blacks MDRD (S/P/Bld) [Vol rate/Area] 81 mL/min/{1.73_m2} Normal >90 [facility] Comment on above: Result Comment: CALC ULATIONS OF ESTIMATED GFR ARE PERFORMED USING THE 2020 CKD-EPI STUDY REFIT EQUATION WITHOUT THE RACE VARIABLE FOR THE IDMS-TRACEABLE CREATININE METHODS. https://jasn.asnjournals.org/content/early//ASN.877742941 8 Performed By: #### R ENAL #### [address] [place] [address] Glucose [Mass/Vol] 116 mg/dL High 74 - 99 [facility] Comment on above: Performed By: #### R ENAL #### [address] [address] HCO3 (Bld) [Moles/Vol] 21 mmol/L Normal 21 - 32 [facility] Comment on above: Performed By: #### R ENAL #### [address] [address] Phosphate [Mass/Vol] 2.5 mg/dL Normal 2.5 - 4.9 [facility] Comment on above: Result Comment: The performance characteristics of phosphorus testing in heparinized plasma have been validated by the individual laboratory site where testing is performed. Testing on heparinized plasma is not approved by the FDA; however, such approval is not necessary. Performed By: #### R ENAL #### [address] [address] Potassium [Moles/Vol] 4.1 mmol/L Normal 3.5 - 5.3 [facility] Comment on above: Performed By: #### R ENAL #### [address] [address] Sodium [Moles/Vol] 136 mmol/L Normal 136 - 145 [facility] Comment on above: Performed By: #### R ENAL #### [address] [address] Urea nitrogen [Mass/Vol] 15 mg/dL Normal 6 - 23 [facility] Comment on above: Performed By: #### R ENAL #### [address] [address] Renal Function Panelon 12-04 Albumin BCP dye [Mass/Vol] 3.6 g/dL 3.4 - 5.0 [facility] Work Phone: Anion gap [Moles/Vol] 13 mmol/L 10 - 20 [facility] Work Phone: Calcium [Mass/Vol] 8.5 mg/dL below low threshold 8.6 - 10.3 [facility] Work Phone: Chloride [Moles/Vol] 106 mmol/L 98 - 107 [facility] Work Phone: CO2 [Moles/Vol] 21 mmol/L 21 - 32 [facility] Work Phone: Creatinine [Mass/Vol] 0.89 mg/dL See Below [facility] Work Phone: Comment on above: Reference Range: 0.5 0 - 1.05 Glucose [Mass/Vol] 116 mg/dL above high threshold 74 - 99 [facility] Work Phone: Phosphate [Mass/Vol] 2.5 mg/dL 2.5 - 4.9 [facility] Work Phone: Comment on above: The performance ya acteristics of phosphorus testing in heparinized plasma have been validated by the individual laboratory site where testing is performed. Testing on heparinized plasma is not approved by the FDA; however, such approval is not necessary. Potassium [Moles/Vol] 4.1 mmol/L 3.5 - 5.3 [facility] Work Phone: Sodium [Moles/Vol] 136 mmol/L 136 - 145 [facility] Work Phone: Urea nitrogen [Mass/Vol] 15 mg/dL 6 - 23 [facility] Work Phone: Renal Function Panel 81 {mL/min/1.73m2} >90 [facility] Work Phone: Comment on above: CALCULATIONS OF ROSALIA MATED GFR ARE PERFORMED USING THE 2020 CKD-EPI STUDY REFIT EQUATION WITHOUT THE RACE VARIABLE FOR THE IDMS-TRACEABLE CREATININE METHODS.https://jasn.asnjournals.org/content/early//ASN.2 050219197 [facility] Surgical Pathology Depar tmenton 12-04-2021 [facility] Surgical Pathology Department Name LAURO PINTO Pathologist: LILLI AMAYA ASA, MD, PhD Date of Procedure: 12/04/2021 Date Received: 12/04/2021 Date Reported 12/10/2021 Submitting Physician: EDY DOMINGUEZ MD Location: [facility] Other External # FINAL DIAGNOSIS A. RIGHT [...] in toto superior to inferior AMD amd/12/06/2021 [facility] Department of Pathology [address] [place] [address] [facility] Comment on above: Performed By: #### U [facility] #### [facility] Surgical Pathology Department [address] [place], [place] [id number] Urine Teston 12-04 HCG ( test) Ql (U) Negative Negative [facility] brainUnveilCon[facility] Work Phone: Established Visit (Otolaryng ology)on 10-27-2021 [...] MOUTH ONCE DAILY Vitals Vital Signs Recorded: 73Nmv1156 09:32AM Ytnepjaiunv04.9 F Qdxtlmrd539 Codevahra47 Height6 ft 1 in Kwmeuf849 lb BMI Rqfodxyixy24.25 kg/m2 BSA Calculated2.71 Tobacco Useb) No Fall [...] Oct 27 2021 10:15AM EST (Author) Normal [facility] Falls Risk Screeningon 02-21 -2022 Fall risk assessment a) No falls within the last year [facility] Work Phone: Tobacco use status [facility] b) No [facility] [facility] Work Phone: COVID + FLU Quick Testingon 08-16-2021 SARS-CoV-2 (COVID-19) RNA APURVA+probe Ql (Unsp spec) Positive [employer] Other COVID + FLU Quick Testing Negative [employer] Other Established Visit (Otolaryng ology)on 07-21-2021 Established [...] DAILY Vitals Vital Signs Recorded: 21Jul2021 02:48PM Ucczwrzogxg75.9 F Dweecgoj703 Wukfxwubz25 Height6 ft 1 in Mfhinw906 lb BMI Tomollaekn28.59 kg/m2 BSA Calculated2.69 Tobacco Useb) No Fall Screeninga) No falls within the last year Pain Scale2 Physical Exam Steri-Strips removed, neck incision healing well, no sign of infection or fluid collection 'Scores and Scales' Signatures Electronically signed by : Edy Dominguez MD; Jul 25 2021 4:35AM EST (Author) Normal [facility] Tobacco Screening.on 021 Fall risk assessment a) [...] today Objective Data: Objective Information: T PRBPSpO2 Value36.74817914/5698% Date/Time07/10 22:5311/4 22:5311/4 19:401/4 22:5311/4 22:53 Range(36.2C - 36.8C ) (69 - 83 ) (13 - 18 ) (108 - 133 )/ (56 - 73 ) (97% - 98% ) As of 10-Jul-2021 16:01:00, patient is on 2 L/min of oxygen via room air. Pain reported at 07/11 2:45: 4 = Moderate ---- Intake and Output ----- Mn/Dy/Year TimeIntakeOutputNet Jul 11, 2021 6:00 ab716-52 Jul 10, 2021 10:00 [id number] Jul 10, 2021 2:00 [id number] The Intake and Output Totals for the last 24 hours are: IntakeOutputNet [id number] Recent Lab Results: Results: Coagulation: 07/10/2021 07:50 PT / 12.0 / -------< INR < 1.0 PTT\ 26 \ Assessment and Plan: Comorbidities: Comorbidityobesity Obesitymorbid obesity (BMI 40+) Code Status: Code StatusFull Code Electronic Signatures: Edy Dominguez) (Signed 11-Jul-2021 06:06) Authored: Service, Subjective Data, Objective Data, Assessment and Plan, Note Completion Last Updated: 11-Jul-2021 06:06 by Edy Dominguez) Normal [facility] APTTon 07-10-2021 aPTT Coag (Bld) [Time] 26 s Normal 25 - 35 [facility] Comment on above: Result Comment: THE APTT IS NO LONGER USED FOR MONITORING UNFRACTIONATED HEPARIN THERAPY. FOR MONITORING HEPARIN THERAPY, USE THE HEPARIN ASSAY. Performed By: #### A PTT #### [facility] [address] [place] [address] Activated Partial Thrombopla stin Timeon 07-10-2021 aPTT Coag (PPP) [Time] 26 s 25 - 35 -Otolaryngol [facility] Work Phone: Comment on above: THE [...] AlertFor Ebola-like Symptoms: Isolate Patient and Notify Provider/Joiners Supervisor For Contact: Notify Provider/Joiners Supervisor Advance Directive: Advance Directive/DNRno Advance Directive Information [...] demonstration; verbal instruction Cultural Considerationsnone Developmental Considerationsnone Holiness Considerationsnone Learning Assessment (Other Learner): Other learner availableno Depression Screen: During the past month, have you often been bothered by feeling down, depressed or hopelessno During the past month, have you often had little interest or pleasure in doing thingsno Have you had any thoughts of harming anyone elseno Nocona Suicide: Risk Screen Not Applicable/Able to Answerable to be screened In the Past Month: Have you wished you were or could go to sleep and not wake upno(1) In the Past Month: Have you had any actual thoughts of killing yourself no(1) Lifetime: Have you ever done, started to do, or prepared to do anything to end your lifeno(1) Nocona Suicide Risknegative Adult Nutrition Screen: (more content not included)... Normal [facility] Discharge Ndjsmtx1yc 021 Discharge Profile2 Discharge Orders: Anticipated Discharge Date: Anticipated Discharge Hlgt06-Sjv-3338 Anticipated Discharge Time11:00 Problem List: Medical History: [...] Course (Home Care/Gold Form), Gold Form - Nurse Ldr Summary Edy Dominguez) (Signed 11-Jul-2021 06:07) Authored: Discharge Orders, Hospital Course (Home Care/Gold Form), Provider FINAL REVIEW of Orders Last Updated: 11-Jul-2021 06:07 by Edy Dominguez) Normal [facility] HCG,URINEon 07-10-2021 Beta HCG ( test) Ql (U) Negative Normal Negative [facility] Comment on above: Performed By: #### H CGU #### [facility] [address] [place] [address] Laboratory - Coagulationon 1 09-09-2020 INR Coag (PPP) [Relative time] 1.0 {INR} 0.9 - 1.1 [facility] Work Phone: PT Coag (PPP) [Time] 12.0 s See Below [facility] Work Phone: Comment on above: Reference Range: 10. 1 - 13.3 No Panel Informationon 07-10 Name JEAN-CLAUDE PINTO Pathologist: LILLI AMAYA ASA, MD, PhD Date of Procedure: 07/10/2021 Date Receive [facility] Work Phone: Order Reconciliationon 07-10 Order Reconciliation [...] 0.5 tab(s) orally once a day Normal [facility] Order Reconciliation Page 1 Admission Reconciliation Document Reconciliation Type: Admission from OR requested on behalf of Juan Becerra (Resident) done by Juan Becerra ( (Resident)) Admission from OR - Reconciliation: 10-Jul-2021 08:48 by: Juan Becerra ( (Resident)) Home MedicationsEnteredLast Dose TakenReconciled with current Order Reconciliation Comment/ Additional Information omeprazole 20 mg oral delayed release capsule 1 cap(s) orally once a day [id number]-[id number] PM Pantoprazole Enteric Coated Tablet (PROTONIX)DOSE = 40 mg Oral DailyNotes from Pharmacy: Substitution for Omeprazole 20 mg Oral Capsule Dailyomeprazole 20 mg oral delayed release capsule continued as the inpatient order Pantoprazole Vraylar 1.5 mg oral capsule 1 cap(s) orally once a [id number]-Uda-224325-Cmc-5190 PM Cariprazine Capsule (VRAYLAR)DOSE = 1.5 mg Oral DailyVraylar 1.5 mg oral capsule continued as the inpatient order Cariprazine Zoloft 25 mg oral tablet 0.5 tab(s) orally once a yyt00-Azg-210055-Iro-3740 PM Sertraline - PEDS Tablet (ZOLOFT)DOSE = [...] and ambulat (more content not included)... Normal [facility] PT/INRon 07-10-2021 PT Coag (PPP) [Time] 12.0 s Normal 10.1 - 13.3 [facility] Comment on above: Performed By: #### M G #### [place] [address] PT, INR 1.0 Normal 0.9 - 1.1 [facility] Comment on above: Performed By: #### M G #### [place] [id number] Patient Profile - Adult v2on 07-10-2021 Patient Profile - Adult v2 Profile: Initial Info: How to be Addressedmichelle(1) Spoken Language PreferredEnglish (1) Source of Informationpatient Stated Reason for Admissionleft thyroidectomy Primary Contact Name and Numberheather [phone] Wants Family/Rep Notified of Admissionyes, primary contact Notify PCPnotify PCP Informed of Patient Visiting Rightsyes Arrived FromOR Was Admitted To in Past 90 Daysnone Patient Belongingsremains with patient Patient Belongings Remaining with Patientclothing; cell phone/electronics; purse/wallet; Purse, clothing, cell phone Medications Brought to Hospitalno General Health: Blood Avoidance/Restrictionsnone (1) Previous Transfusion Reactionno(1) Weight in kg152.9 kilogram(s) Weight in ove325 pound(s) Weight Methodstated Scale Typestanding Height in [...] no (1) Are You Currently Breastfeedingno (1) STERILE PROCESS TECH 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 Barriers to Managing Healthnone Relationship/Environ: Living [...] Profile - Preop v3 07-Jul-2021 11:02 Normal [facility] Patient Profile - Preop v3on 07-10-2021 Patient Profile - Preop v3 Patient Profile - Preop: Initial Info: Patient DemographicsName: LAURO PINTO Date: 1975 Address: [address] [place] [address] Primary Phone [phone] How to be Addressedmichelle Spoken Language PreferredEnglish Source of Informationpatient Stated Reason for Admissionleft thyroidectomy Primary Contact Name and Numberheather [phone] Patient Belongingsnone Medications Brought to Hospitalno General [...] child(fely) Living Arrangementshouse Resource/Environmental Concernsnone Anticipated Transition [place] Services Anticipated at Transitionnone Tobacco Use: Tobacco Useno Pre-op Checklist: Arrival Szam78-Cfj-3573 Arrival Time06:45 Procedure Typeleft hemithyroidectomy NPOyes Last Food [id number] 18:00 Last Clear Fluid [id number] 06:20 ID Band On Patientpatient ID (name) [...] Update < 30 days 10-Jul-2021 07:14 Normal [facility] Surgical Pathology Depar tmenton 07-10-2021 [facility] Surgical Pathology Department Name LAURO PINTO Pathologist: [...] nodule(s) or nodular follicular disease ADDITIONAL TESTING SERVICE TEAM LEADER BLOCKS: Normal Block: A20 Tumor Block: A8, [...] and has a heterogeneous, gelatinous cut surface. Charge Rn sections of the specimen are submitted in 20 cassettes. A 1 superior lobe, manufacturer representative perpendicular sections 2-15 superior to inferior, manufacturer representative sections 16 inferior lobe, manufacturer representative perpendicular sections 17 isthmus resection margin, en face 18-20 manufacturer representative sections of isthmus, from margin to lobe DLS dls/07/14/2021 [facility] Department of Pathology [address] [place] [address] [facility] Comment on above: Performed By: #### U HCS #### [facility] Surgical Pathology Department [address] [facility] [address] Urine Teston 07-10 HCG ( test) Ql (U) Negative Negative [facility] Work Phone: APTTon 07-07-2021 APTT Canceled Normal [facility] Comment on above: Order Comment: TEST APTT WAS CANCELLED, 07/07/2021 12:20 SPECIMEN CLOTTED.PLEASE RESUBMIT. Result Comment: THE APTT IS NO LONGER USED FOR MONITORING UNFRACTIONATED HEPARIN THERAPY. FOR MONITORING HEPARIN THERAPY, USE THE HEPARIN ASSAY. Performed By: #### A PTT #### [facility] [address] [place] [address] Activated Partial Thrombopla stin Timeon 07-07-2021 aPTT Coag (PPP) [Time] Canceled [facility] Work Phone: Comment on above: THE APTT IS NO LONGE R USED FOR MONITORING UNFRACTIONATED HEPARIN THERAPY. FOR MONITORING HEPARIN THERAPY, USE THE HEPARIN ASSAY. CBC AND DIFFERENTIALon 07-07 % AUTOMATED IMMATURE GRAN 0.3 % Normal 0.0 - 0.9 [facility] Comment on above: Result Comment: Lizeth ture Granulocyte Count (IG) includes promyelocytes, myelocytes and metamyelocytes but does not include bands. Percent differential counts (%) should be interpreted in the context of the absolute cell counts (cells/L). Performed By: #### P TINR #### [address] [address] Basophils (Bld) [#/Vol] 0.03 10*3/uL Normal 0.00 - 0.10 [facility] Comment on above: Performed By: #### P TINR #### [address] [address] Basophils/100 WBC (Bld) 0.4 % Normal 0.0 - 2.0 [facility] Comment on above: Performed By: #### P TINR #### [address] [address] Eosinophils (Bld) [#/Vol] 0.10 10*3/uL Normal 0.00 - 0.70 [facility] Comment on above: Performed By: #### P TINR #### [address] [address] Eosinophils/100 WBC (Bld) 1.5 % Normal 0.0 - 6.0 [facility] Comment on above: Performed By: #### P TINR #### [address] [address] Erythrocyte distribution width (RBC) [Ratio] 13.9 % Normal 11.5 - 14.5 [facility] Comment on above: Performed By: #### P TINR #### [address] [address] Hematocrit (Bld) [Volume fraction] 39.1 % Normal 36.0 - 46.0 [facility] Comment on above: Performed By: #### P TINR #### [address] [address] Hemoglobin (Bld) [Mass/Vol] 11.7 g/dL Low 12.0 - 16.0 [facility] Comment on above: Performed By: #### P TINR #### [address] [address] Lymphocytes (Bld) [#/Vol] 1.82 10*3/uL Normal 1.20 - 4.80 [facility] Comment on above: Performed By: #### P TINR #### [address] [address] Lymphocytes/100 WBC (Bld) 26.6 % Normal 13.0 - 44.0 [facility] Comment on above: Performed By: #### P TINR #### [address] [address] MCHC (RBC) [Mass/Vol] 29.9 g/dL Low 32.0 - 36.0 [facility] Comment on above: Performed By: #### P TINR #### [address] [address] MCV (RBC) [Entitic vol] 89 fL Normal 80 - 100 [facility] Comment on above: Performed By: #### P TINR #### [address] [address] Monocytes (Bld) [#/Vol] 0.40 10*3/uL Normal 0.10 - 1.00 [facility] Comment on above: Performed By: #### P TINR #### [address] [address] Monocytes/100 WBC (Bld) 5.8 % Normal 2.0 - 10.0 [facility] Comment on above: Performed By: #### P TINR #### [address] [address] Neutrophils (Bld) [#/Vol] 4.47 10*3/uL Normal 1.20 - 7.70 [facility] Comment on above: Performed By: #### P TINR #### [address] [address] Neutrophils/100 WBC (Bld) 65.4 % Normal 40.0 - 80.0 [facility] Comment on above: Performed By: #### P TINR #### [address] [address] NUCLEATED RBC 0.0 /100 WBC Normal 0.0 - 0.0 [facility] Comment on above: Performed By: #### P TINR #### [address] [address] Platelets (Bld) [#/Vol] 243 10*3/uL Normal 150 - 450 [facility] Comment on above: Performed By: #### P TINR #### [address] [address] RBC 4.40 x10E12/L Normal 4.00 - 5.20 [facility] Comment on above: Performed By: #### P TINR #### [address] [address] WBC (Bld) [#/Vol] 6.8 10*3/uL Normal 4.4 - 11.3 [facility] Comment on above: Performed By: #### P TINR #### [address] [address] COMPREHENSIVE PANELon 2020 Albumin [Mass/Vol] 4.0 g/dL Normal 3.4 - 5.0 [facility] Comment on above: Performed By: #### P TINR #### [address] [address] ALP [Catalytic activity/Vol] 49 U/L Normal 33 - 110 [facility] Comment on above: Performed By: #### P TINR #### [address] [address] ALT [Catalytic activity/Vol] 5 U/L Low 7 - 45 [facility] Comment on above: Result Comment: Nano ents treated with Sulfasalazine may generate falsely decreased results for ALT. Performed By: #### P TINR #### [address] [address] Anion gap [Moles/Vol] 11 mmol/L Normal 10 - 20 [facility] Comment on above: Performed By: #### P TINR #### [address] [address] AST [Catalytic activity/Vol] 13 U/L Normal 9 - 39 [facility] Comment on above: Performed By: #### P TINR #### [address] [address] Bilirubin [Mass/Vol] 0.5 mg/dL Normal 0.0 - 1.2 [facility] Comment on above: Performed By: #### P TINR #### [address] [address] Calcium [Mass/Vol] 8.8 mg/dL Normal 8.6 - 10.3 [facility] Comment on above: Performed By: #### P TINR #### [address] [address] Chloride [Moles/Vol] 106 mmol/L Normal 98 - 107 [facility] Comment on above: Performed By: #### P TINR #### [address] [address] Creatinine [Mass/Vol] 0.69 mg/dL Normal 0.50 - 1.05 [facility] Comment on above: Performed By: #### P TINR #### [address] [address] GFR- AM. >60 Normal >60 [facility] Comment on above: Result Comment: CALC ULATIONS OF ESTIMATED GFR ARE PERFORMED USING THE MDRD STUDY EQUATION FOR THE IDMS-TRACEABLE CREATININE METHODS. CLIN CHEM 2007;53:766-72 Performed By: #### P TINR #### [address] [address] GFR-NON AM. >60 Normal >60 [facility] Comment on above: Performed By: #### P TINR #### [address] [address] Glucose [Mass/Vol] 101 mg/dL High 74 - 99 [facility] Comment on above: Performed By: #### P TINR #### [address] [address] HCO3 (Bld) [Moles/Vol] 24 mmol/L Normal 21 - 32 [facility] Comment on above: Performed By: #### P TINR #### [address] [address] Potassium [Moles/Vol] 4.0 mmol/L Normal 3.5 - 5.3 [facility] Comment on above: Performed By: #### P TINR #### [address] [address] Protein [Mass/Vol] 7.1 g/dL Normal 6.4 - 8.2 [facility] Comment on above: Performed By: #### P TINR #### [address] [address] Sodium [Moles/Vol] 137 mmol/L Normal 136 - 145 [facility] Comment on above: Performed By: #### P TINR #### [address] [address] Urea nitrogen [Mass/Vol] 16 mg/dL Normal 6 - 23 [facility] Comment on above: Performed By: #### P TINR #### [address] [address] CORONAVIRUS 2019, SCREEN ASY MPTOMATICon 07-07-2021 SARS-CoV-2 (COVID-19) RNA APURVA+probe Ql (Unsp spec) Not detected Normal Not Detected [facility] Comment on above: Result Comment: [...] patient management decisions. Fact sheet for providers: https://www.fda.gov/media/918659/download Fact sheet for patients: https://www.fda.gov/media/652131/download This test has received FDA Emergency Use Authorization (EUA) and has been verified by [facility] ([facility]). This test is only authorized for the duration of time that circumstances exist to justify the authorization of the emergency use of in vitro diagnostic tests for the detection of SARS-CoV-2 virus and/or diagnosis of COVID-19 infection under section 564(b)(1) of the Act, 21 U.S.C. 360bbb-3(b)(1), unless the authorization is terminated or revoked sooner. [facility] is certified under CLIA-88 as qualified to perform high complexity testing. Testing is performed in the [facility] laboratories located at [address] [place] [address]. Performed By: #### C OVSC #### [facility] [address] [facility] [place] [address] Lab Specimen Source Nasal, Nasopharyngeal Normal [facility] Comment on above: Performed By: #### C OVSC #### [facility] [id number] [place] [address]. [place] [address] Complete Blood Count + Diffe shiramica 07-07-2021 Basophils/100 WBC (Bld) 0.4 % 0.0 - 2.0 [facility] Work Phone: Erythrocyte distribution width (RBC) [Ratio] 13.9 % See Below [facility] Work Phone: Comment on above: Reference Range: 11. 5 - 14.5 Hematocrit (Bld) [Volume fraction] 39.1 % See Below [facility] Work Phone: Comment on above: Reference Range: 36. 0 - 46.0 Hemoglobin (Bld) [Mass/Vol] 11.7 g/dL below low threshold See Below [facility] Work Phone: Comment on above: Reference Range: 12. 0 - 16.0 Lymphocytes/100 WBC (Bld) 26.6 % See Below [facility] Work Phone: Comment on above: Reference Range: 13. 0 - 44.0 MCHC (RBC) [Mass/Vol] 29.9 g/dL below low threshold See Below MG-Otolaryngol [employer] Work Phone: Comment on above: Reference Range: 32. 0 - 36.0 MCV (RBC) [Entitic vol] 89 fL 80 - 100 [facility]Otolaryngol [employer] Work Phone: Monocytes/100 WBC (Bld) 5.8 % 2.0 - 10.0 [facility] Work Phone: Neutrophils/100 WBC (Bld) 65.4 % See Below MG-Otolaryngol [employer] Work Phone: Comment on above: Reference Range: 40. 0 - 80.0 Platelets (Bld) [#/Vol] 243 10*3/uL 150 - 450 [facility] [place] Work Phone: RBC (Bld) [#/Vol] 4.40 {x10E12/L} See Below [facility] -[facility]tolaryngol [place] Work Phone: Comment on above: Reference Range: 4.0 0 - 5.20 WBC (Bld) [#/Vol] 6.8 10*3/uL 4.4 - 11.3 [facility]-Seferino laryngol [place] Work Phone: Complete Blood Count + Differential 0.03 {x10E9/L} See Below [facility]tolaryngol [place] Work Phone: Comment on above: Reference Range: 0.0 0 - 0.10 Complete Blood Count + Differential 0.10 {x10E9/L} See Below MG-Otolaryngol [employer] Work Phone: Comment on above: Reference Range: 0.0 0 - 0.70 Complete Blood Count + Differential 0.40 {x10E9/L} See Below [facility]tolaryngol [place] Work Phone: Comment on above: Reference Range: 0.1 0 - 1.00 Complete Blood Count + Differential 1.82 {x10E9/L} See Below [place]-Otolaryngol [place] Work Phone: Comment on above: Reference Range: 1.2 0 - 4.80 Complete Blood Count + Differential 4.47 {x10E9/L} See Below [place]-Otolaryngol [place] Work Phone: Comment on above: Reference Range: 1.2 0 - 7.70 Complete Blood Count + Differential 1.5 % 0.0 - 6.0 [facility]tolaryng[facility] [place] Work Phone: Complete Blood Count + Differential 0.3 % 0.0 - 0.9 [place] [place] Work Phone: Comment on above: Immature Granulocyte Count (IG) includes promyelocytes, myelocytes and metamyelocytes but does not include bands. Percent differential counts (%) should be interpreted in the context of the absolute cell counts (cells/L). Complete Blood Count + Differential 0.0 {/100_WBC} 0.0 - 0.0 [facility] [place] Work Phone: Coronavirus 2019 RNA by PCR, Screening Asymptomticon 07-07-2021 Coronavirus 2019 RNA by PCR, Screening Asymptomtic Not detected Normal See Below [place]-Otolaryngol [place] Work Phone: Comment on above: SOURCE: Nasal, [...] make patient management decisions.Fact sheet for providers: https://www.fda.gov/media/640858/downloadFact sheet for patients: https://www.fda.gov/media/450907/downloadThis test has received FDA Emergency Use Authorization (EUA) and has been verified by [facility] ([facility]). This test is only authorized for the duration of time that circumstances exist to justify the authorization of the emergency use of in vitro diagnostic tests for the detection of SARS-CoV-2 virus and/or diagnosis of COVID-19 infection under section 564(b)(1) of the Act, 21 U.S.C. 360bbb-3(b)(1), unless the authorization is terminated or revoked sooner. [facility] is certified under CLIA-88 as qualified to perform high complexity testing. Testing is performed in the [facility] laboratories located at [address] [place] [address]. Covid 19 Resultson 1 SARS-CoV-2 (COVID-19) RNA [...] You may also be contacted by the [facility] to see if any of your close [...] or Naproxen (Aleve) can also be used. Zdxj-kqr-tjaolyr cough and cold medicines can be used according to the instructions on the package. Some mxuy-jwf-ozyuhgm medicines also contain acetaminophen. Make sure you [...] water are not available, use alcohol-based hand slip feeder. Avoid touching your eyes, nose, and mouth [...] 24 carson (more content not included)... Normal [facility] Established Visit (Otolaryng ology)on 07-07-2021 [...] Complaint Goiter, thyroid nodule History of Present Iqdlias05-rvfs-yas female referred by Dr. Christian for evaluation [...] Jul 07 2021 12:41PM EST (Author) Normal [facility] - Chemistry and C hemistry - challengeon 07-07-2021 Albumin BCP dye [Mass/Vol] 4.0 g/dL 3.4 - 5.0 MG-Otolaryngol [employer] Work Phone: ALP [Catalytic activity/Vol] 49 U/L 33 - 110 [facility] Work Phone: ALT With P-5'-P [Catalytic activity/Vol] 5 U/L below low threshold 7 - 45 [facility] Work Phone: Comment on above: Patients treated wit h Sulfasalazine may generate falsely decreased results for ALT. Anion gap [Moles/Vol] 11 mmol/L 10 - 20 [facility]Otolaryngol [employer] Work Phone: AST With P-5'-P [Catalytic activity/Vol] 13 U/L 9 - 39 [facility]Otolaryngol [employer] Work Phone: Bilirubin [Mass/Vol] 0.5 mg/dL 0.0 - 1.2 [facility] [place] Work Phone: Calcium [Mass/Vol] 8.8 mg/dL 8.6 - 10.3 [facility] laryngol [place] Work Phone: Chloride [Moles/Vol] 106 mmol/L 98 - 107 [facility] [place] Work Phone: CO2 [Moles/Vol] 24 mmol/L 21 - 32 [facility]-Otolar yngol [place] Work Phone: Creatinine [Mass/Vol] 0.69 mg/dL See Below [facility]Otolaryngol [employer] Work Phone: Comment on above: Reference Range: 0.5 0 - 1.05 Glucose [Mass/Vol] 101 mg/dL above high threshold 74 - 99 [facility]aryngol [employer] Work Phone: Potassium [Moles/Vol] 4.0 mmol/L 3.5 - 5.3 [facility] Work Phone: Protein [Mass/Vol] 7.1 g/dL 6.4 - 8.2 [facility]er[facility] laryngol [facility] Work Phone: Sodium [Moles/Vol] 137 mmol/L 136 - 145 [facility] laryngol [facility] Work Phone: Urea nitrogen [Mass/Vol] 16 mg/dL 6 - 23 [facility] Work Phone: Laboratory - Coagulationon 1 09-06-2020 INR Coag (PPP) [Relative time] Canceled [facility] Work Phone: PT Coag (PPP) [Time] Canceled [facility] Work Phone: No Panel Informationon 07-07 >60 >60 [facility] Work Phone: Comment on above: CALCULATIONS OF ROSALIA MATED GFR ARE PERFORMED USING THE MDRD STUDY EQUATION FOR THE IDMS-TRACEABLE CREATININE METHODS. CLIN CHEM 2007;53:766-72 [email or web address] 1:8080 /musescripts/museweb.dll?R etrieveTestByDateTime?Nano xtfQP=[id number]&Date=09-16&Time=10%3a44%3a00%3a 00&TestType=ECG&Site=12&Ou tputType=PDF&Ext=PDF [facility] Work Phone: Normal sinus rhythm [facility]-Ot olaryngol [facility] Work Phone: Abnormal [facility] Work Phone: 438 1 [facility] Work Phone: 413 1 [facility] Work Phone: 198 1 [facility] Work Phone: 147 1 [facility] Work Phone: 218 1 [facility] Work Phone: 14 1 [facility] Work Phone: 18 1 [facility] Work Phone: 9 1 [facility] Work Phone: 59 1 [facility] Work Phone: 464 1 [facility] Work Phone: 390 1 [facility] Work Phone: 76 1 [facility] Work Phone: 142 1 [facility] Work Phone: 85 1 [facility] Work Phone: PT/INRon 07-07-2021 PROTHROMBIN TIME Canceled Normal [facility] Comment on above: Order Comment: TEST PT/INR WAS CANCELLED, 07/07/2021 12:20 SPECIMEN CLOTTED.PLEASE RESUBMITDUPLICATE ORDER. Performed By: #### P TINR #### [address] [place] [address] PT, INR Canceled Normal [facility] Comment on above: Order Comment: TEST PT/INR WAS CANCELLED, 07/07/2021 12:20 SPECIMEN CLOTTED.PLEASE RESUBMITDUPLICATE ORDER. Performed By: #### P TINR #### [address] [place] [address] Established Visit (Otolaryng ology)on 06-12-2021 Established Visit [...] Complaint Goiter, thyroid nodule History of Present Pzpzwkq84-wcru-cmb female referred by Dr. Christian for evaluation [...] and Scales' Signatures Electronically signed by : Eyd Dominguez MD; Jun 13 2021 4:51AM EST (Author) Normal [facility] No Panel Informationon 04-28 [facility]-Otolaryngol [facility] Work Phone: [facility] Surgical Pathology Depar tmenton 04-28-2021 [facility] Surgical Pathology Department Name LAURO PINTO Pathologist: MIGUEL GAMBLE MD Date of Procedure: 04/28/2021 Date Received: 04/28/2021 Date Reported 04/29/2021 Submitting Physician: EDY DOMINGUEZ MD Location: [facility] Other External # FINAL DIAGNOSIS A. [employer] [id number] (11/14/2020): LEFT THYROID FINE NEEDLE ASPIRATE: --BENIGN FOLLICULAR NODULAR (NODULAR HYPERPLASIA). Electronically Signed Out By MIGUEL GAMBLE MD/[facility] By the signature on this report, the individual or group listed as making the Final Interpretation/Diagnosis certifies that they have reviewed this case. Clinical History: FNA thyroid nodule Specimens Submitted As: A: [facility] [id number] (11/14/2020) Slide/Block Description Received from [employer], [address] [place] [address], are thirteen (13) slides labeled [id number] Keep Slides: N Slides Returned: N Personal Consult: N Normal [facility] Comment on above: Performed By: #### U [facility] #### [facility] Surgical Pathology Department [address] [facility] [address] Initial Visit (Otolaryngolog y)on 04-07-2021 Initial Visit [...] Complaint Goiter, thyroid nodule History of Present Wrpzihu82-jpfs-mih female referred by Dr. Christian for evaluation [...] DAILY Vitals Vital Signs Recorded: 07Apr2021 02:27PM Xggutajfjco97.2 F Eicsgqww566 Lajyrsofb30 Height6 ft 1 in Omapzs633 lb BMI Ahnbdjxoll93.33 kg/m2 BSA Calculated2.68 Tobacco Useb) No Fall [...] May 04 2021 2:13PM EST (Author) Normal [facility] Tobacco Screening.on 021 Fall risk assessment a) No falls within the last year [facility] Work Phone: Tobacco use status CPHS b) No [facility] Work Phone: CTA CHEST WO W CONon [...] AMBREEN ZENDEJAS Date: 2020-08-28 22:10 Normal [facility] CBC AUTO DIFFon 08-28-2020 Basophils (Bld) [#/Vol] 0.0 103/ul Normal 0.0-0.1 [facility] Comment on above: Performed By: #### C BC #### [facility] [address] [place], [place] [address] Amin[employer] Lotus Basophils/100 WBC (Bld) 0.3 % Normal 0.2-2.0 [facility] Comment on above: Performed By: #### C BC #### [facility] [address] [place], [place] [address] [employer] Eosinophils (Bld) [#/Vol] 0.0 103/ul Normal 0.0-0.7 [facility] Comment on above: Performed By: #### C BC #### [facility] [address] [place], [place] [address] [employer] Eosinophils/100 WBC (Bld) 0.2 % Critically low 0.9-7.0 [facility] Comment on above: Performed By: #### C BC #### [facility] [address] [place], [place] [address] [employer] Erythrocyte distribution width (RBC) [Ratio] 13.6 % Normal 11.0-15.0 [facility] Comment on above: Performed By: #### C BC #### [facility] [address] [place] [address] Aminata Gautam Hematocrit (Bld) [Volume fraction] 39.9 % Normal 36.0-48.0 [facility] Comment on above: Performed By: #### C BC #### [facility] [address] [place], [place] [address] Aminatayohan Gautam Hemoglobin (Bld) [Mass/Vol] 12.5 g/dL Normal 12.0-16.0 [facility] Comment on above: Performed By: #### C BC #### [facility] [address] [place] [address] Aminata Gautam IG # 0.02 10e3/ul Normal 0.00-0.03 [facility] Comment on above: Performed By: #### C BC #### [facility] [address] [place] [address] Aminata Gautam IG % 0.2 % Normal 0.0-0.5 [facility] Comment on above: Performed By: #### C BC #### [facility] [address] [place], [place] [id number] Aminata Gautam Lymphocytes (Bld) [#/Vol] 2.3 103/ul Normal 1.2-3.8 [facility] Comment on above: Performed By: #### C BC #### [facility] [address] [place], [place] [address] Aminata Gautam Lymphocytes/100 WBC (Bld) 20.1 % Critically low 20.5-60.0 [facility] Comment on above: Performed By: #### C BC #### [facility] [address] [place], [place] [address] Aminata Gautam MANUAL DIFF REQ NO Normal [facility] Comment on above: Performed By: #### C BC #### [facility] [address] [place], [place] [address] Aminata Gautam MCH (RBC) [Entitic mass] 27.0 pg Normal 26.7-34.0 [facility] Comment on above: Performed By: #### C BC #### [facility] [address] [place], [place] [address] Aminata Lotus MCHC (RBC) [Mass/Vol] 31.3 g/dL Normal 29.9-35.2 [facility] Comment on above: Performed By: #### C BC #### [facility] [address] [place], [place] [address] Aminata Lotus MCV (RBC) [Entitic vol] 86.2 fL Normal 81.0-99.0 [facility] Comment on above: Performed By: #### C BC #### [facility] [address] [place], [place] [address] Aminata Lotus Monocytes (Bld) [#/Vol] 0.5 103/ul Normal 0.3-0.8 [facility] Comment on above: Performed By: #### C BC #### [facility] [address] [place], [place] [address] Amin[employer] Lotus Monocytes/100 WBC (Bld) 4.5 % Normal 1.7-12.0 [facility] Comment on above: Performed By: #### C BC #### [facility] [address] [place] [address] Aminata Lotus Neutrophils (Bld) [#/Vol] 8.4 103/ul Critically high 1.4-6.5 [facility] Comment on above: Performed By: #### C BC #### [facility] [address] [place] [address] Amin[employer] Lotus Neutrophils/100 WBC (Bld) 74.7 % Normal 43.0-75.0 [facility] Comment on above: Performed By: #### C BC #### [facility] [address] [place], [place] [address] Aminata Lotus Platelet mean volume (Bld) [Entitic vol] 10.6 fL Normal 9.5-13.5 [facility] [facility] Comment on above: Performed By: #### C BC #### [facility] [address], [place] [address] Aminata Lotus Platelets (Bld) [#/Vol] 293 103/ul Normal 150-450 [facility] Comment on above: Performed By: #### C BC #### [facility] [address] [place] [address] Aminata Gautam RBC (Bld) [#/Vol] 4.63 106/ul Normal 4.20-5.40 [facility] Comment on above: Performed By: #### C BC #### [facility] [address] [place] [address] Aminata Gautam WBC (Bld) [#/Vol] 11.2 103/ul Critically high 4.0-11.0 [facility] Comment on above: Performed By: #### C BC #### [facility] [address] [place] [address] Aminata Gautam CULTURE URINEon 08-28-2020 CULTURE URINE Culture Observations : NORMAL GENITAL FRANK. NO POTENTIAL PATHOGENS SEEN [facility] Comment on above: Performed By: #### U RCX #### [facility] [address] [place] [address] Aminata Gautam ER URINE PROFILEon 0 Bilirubin [Mass/Vol] Negative Normal NEGATIVE [facility] Comment on above: Performed By: #### U MICRO, ERUR #### [facility] [address] [place] [address] Aminata Gautam BLOOD TRACE-INTACT Abnormal NEGATIVE [facility] Comment on above: Performed By: #### U MICRO, ERUR #### [facility] [address] [place] [address] Aminata Gautam Clarity (U) CLEAR Normal CLEAR [facility] Comment on above: Performed By: #### U MICRO, ERUR #### [facility] [address] [place] [address] Aminata Gautam Color (U) LT. YELLOW Normal YELLOW [facility] Comment on above: Performed By: #### U MICRO, ERUR #### [facility] [address] [place] [address] Aminata Gautam ERUAHD A micrscopic examina tion will be performed if indicated. [facility] Comment on above: Performed By: #### U MICRO, ERUR #### [facility] [address] [address] Aminata Lotus Glucose [Mass/Vol] Negative Normal NEGATIVE [facility] Comment on above: Performed By: #### U MICRO, ERUR #### [facility] [address] [place] [address] Aminata Lotus Ketones Ql (U) Negative Normal NEGATIVE [facility] Comment on above: Performed By: #### U MICRO, ERUR #### [facility] [address] [place] [address] Aminata Lotus Nitrite Ql (U) Negative Normal NEGATIVE [facility] Comment on above: Performed By: #### U MICRO, ERUR #### [facility] [address] [place] [address] Aminata Lotus pH (Bld) 7.5 Normal 5-9 [facility] Comment on above: Performed By: #### U MICRO, ERUR #### [facility] [address] [place] [address] Aminata Lotus Protein (U) [Mass/Vol] Negative Normal NEGATIVE/ TRACE [facility] Comment on above: Performed By: #### U MICRO, ERUR #### [facility] [address] [place] [address] Aminata Lotus SPEC GRAVITY 1.015 Normal 1.005-<=1.0 25 [facility] Comment on above: Performed By: #### U MICRO, ERUR #### [facility] [address] [place] [address] Aminaat Lotus UR MICRO IND INDICATED [facility] Comment on above: Performed By: #### U MICRO, ERUR #### [facility] [address] [place] [address] Aminata Lotus Urobilinogen Qn (U) 0.2 EU/dl Normal 0.2 - 1.0 [facility] Comment on above: Performed By: #### U MICRO, ERUR #### [facility] [address] [place] [address] Aminata Lotus WBC (Bld) [#/Vol] SMALL Abnormal NEGATIVE [facility] Comment on above: Performed By: #### U MICRO, ERUR #### [facility] [address] [place], [place] [address] Aminata Lotus PREG HCG QUALon 08-28-2020 , QUAL Negative Normal NEGATIVE [facility] Comment on above: Performed By: #### C BC #### [facility] [address] [id number] Aminatayohan Gautam PROF 14(COMP METB)on 020 Albumin [Mass/Vol] 3.7 g/dL Normal 3.5-5.0 [facility] Comment on above: Performed By: #### H STROPN, TSH, CMP #### [facility] [address] [id number] Aminata Lotus Albumin/Globulin [Mass ratio] 1.0 {ratio} [facility] Comment on above: Performed By: #### H STROPN, TSH, CMP #### [facility] [address] [phone] Aminata Lotus ALP [Catalytic activity/Vol] 88 U/L Normal 38-126 [facility] Comment on above: Performed By: #### H STROPN, TSH, CMP #### [facility] [address] [phone] Aminata Lotus ALT [Catalytic activity/Vol] 13 U/L Normal 9-52 [facility] Comment on above: Performed By: #### H STROPN, TSH, CMP #### [facility] [address] [phone] Aminata Lotus Anion gap [Moles/Vol] 14.5 mmol/L [facility] Comment on above: Performed By: #### H STROPN, TSH, CMP #### [facility] [address] [phone] Aminata Lotus AST [Catalytic activity/Vol] 16 U/L Normal 14-36 [facility] Comment on above: Performed By: #### H STROPN, TSH, CMP #### [facility] [address] [phone] Aminata Lotus Bilirubin Ql (U) 0.7 mg/dL Normal 0.2-1.3 [facility] Comment on above: Performed By: #### H STROPN, TSH, CMP #### [facility] [address] [place] [address] Aminata Lotus Calcium [Mass/Vol] 8.8 mg/dL Normal 8.4-10.2 [facility] Comment on above: Performed By: #### H STROPN, TSH, CMP #### [facility] [address] [place] [address] Aminata Lotus Chloride [Moles/Vol] 106 mmol/L Normal 98-107 [facility] Comment on above: Performed By: #### H STROPN, TSH, CMP #### [facility] [address] [place] [address] Aminata Lotus CO2 [Moles/Vol] 24.3 mmol/L Normal 22.0-30.0 [facility] Comment on above: Performed By: #### H STROPN, TSH, CMP #### [facility] [address] [place] [address] Aminata Lotus Creatinine [Mass/Vol] 0.96 mg/dL Normal 0.52-1.04 [facility] Comment on above: Performed By: #### H STROPN, TSH, CMP #### [facility] [address] [place] [address] Aminata Lotus EGFR-AF ARGENTINE >60 Normal >=60 [facility] Comment on above: Performed By: #### H STROPN, TSH, CMP #### [facility] [address] [place] [address] Aminata Lotus EGFR-NON AF ARGENTINE >60 Normal >=60 [facility] Comment on above: Performed By: #### H STROPN, TSH, CMP #### [facility] [address] [place] [address] Aminata Lotus Globulin (S) [Mass/Vol] 3.8 g/dL Normal [facility] Comment on above: Performed By: #### H STROPN, TSH, CMP #### [facility] [address] [place] [address] Aminata Lotus Glucose [Mass/Vol] 141 mg/dL Critically high 74-[address] [facility] Comment on above: Performed By: #### H DIEGO TSH, CMP #### [facility] [address] [address] Aminata Lotus Potassium [Moles/Vol] 3.8 mmol/L Normal 3.4-5.0 [facility] Comment on above: Performed By: #### H DIEOG TSH, CMP #### [facility] [address] [place] [address] Aminata Lotus Protein [Mass/Vol] 7.5 g/dL Normal 6.1-8.2 [facility] Comment on above: Performed By: #### H DIEGO TSH, CMP #### [facility] [address] [place] [address] Aminata Lotus Sodium [Moles/Vol] 141 mmol/L Normal 137-145 [facility] Comment on above: Performed By: #### H DIEGO TSH, CMP #### [facility] [address] [place] [address] Aminata Lotus Urea nitrogen [Mass/Vol] 10.0 mg/dL Normal 7.0-17.0 [facility] Comment on above: Performed By: #### H DIEGO TSH, CMP #### [facility] [address] [place] [address] Aminata Lotus Urea nitrogen/Creatinin e [Mass ratio] 10.4 mg/mg [facility] Comment on above: Performed By: #### H DIEGO TSH, CMP #### [facility] [address] [place] [address] Aminata Lotus PROTIMEon 08-28-2020 INR Coag (PPP) [Relative time] 1.00 {INR} Normal [facility] Comment on above: Performed By: #### P T, PTT #### [facility] [address] [place], [place] [id number] Aminata Lotus PT Coag (PPP) [Time] SEE BELOW Normal [facility] Comment on above: Result Comment: TANYA RED INR: 2.0 - 3.0 CONDITIONS NOT LISTED BELOW 2.5 - 3.5 FOR PROSTHETIC HEART VALVE REPLACEMENT 2.5 - 3.5 RECURRENT THROMBOSIS Performed By: #### P T, PTT #### [facility] [address] [place] [address] Aminata Gautam PT Coag (PPP) [Time] 10.9 s Normal 9.0-11.6 [facility] Comment on above: Performed By: #### P T, PTT #### [facility] [address] [phone] Aminata Gautam PTTon 08-28-2020 aPTT Coag (Bld) [Time] 23.9 s Normal 22.3-36.2 [facility] Comment on above: Performed By: #### P T, PTT #### [facility] [address] [place] [address] Aminata Gautam TROPONIN, HIGH SENSITIVITYon 08-28-2020 HSTROP <4.0 Normal 4.0-35.5 [facility] Comment on above: Result Comment: CUT- OFF POINTS HAVE BEEN ESTABLISHED BASED ON THE FOURTH UNIVERSAL DEFINITIONS OF MYOCARDIAL INFARCTION. THE UPPER REFERENCE LIMIT (URL) OF TROPONIN, DEFINED THE 99TH PERCENTILE OF cTnI DISTRIBUTION IN A REFERENCE POPULATION, HAS BEEN CONFIRMED THE DECISION THRESHOLD FOR SD DIAGNOSIS. 90TH PERCENTILE (X=[phone])= 35.6 - 109.2 PG/ML 99TH PERCENTILE = 51.4 PG/ML NOTE: HIGH-SENSITIVITY TROPONIN ASSAY IS NOT INTENDED TO BE USED IN ISOLATION BUT SHOULD BE INTERPRETED IN CONJUNCTION WITH OTHER DIAGNOSTIC AND CLINICAL INFORMATION. Performed By: #### H STROPN, TSH, CMP #### [facility] [address] [place] [address] Aminata Gautam TSHon 08-28-2020 TSH Qn 2.034 uIU/mL Normal 0.470-4.680 [facility] Comment on above: Performed By: #### H STROPN, TSH, CMP #### [facility] [address] [place] [address] Aminata Gautma TSH Qn SEE BELOW Normal [facility] Comment on above: Result Comment: <0.3 4 UIU/ml HYPERTHYROID 0.34-5.60 UIU/ml EUTHYROID >5.60 UIU/ml HYPOTHYROID Performed By: #### H STROPN, TSH, CMP #### [facility] [address] [place] [address] Aminata Lotus URINE MICROSCOPIC ONLYon Bacteria LM.HPF (Urine sed) [#/Area] NONE SEEN Normal NONE SEEN [facility] Comment on above: Performed By: #### U MICRO, ERUR #### [facility] [address] [place] [address] Aminata Lotus CAST SEEN Abnormal NONE SEEN [facility] Comment on above: Performed By: #### U MICRO, ERUR #### [facility] [address] [place] [address] Aminata Lotus Crystals LM Nom (Urine sed) NONE SEEN Normal NONE SEEN [facility] Comment on above: Performed By: #### U MICRO, ERUR #### [facility] [address] [place] [address] Aminata Lotus CULTURE INDICATED Normal [facility] Comment on above: Performed By: #### U MICRO, ERUR #### [facility] [address] [place] [address] Aminata Lotus Epithelial cells LM.HPF (Urine sed) [#/Area] FEW Abnormal NONE SEEN /RARE [facility] Comment on above: Performed By: #### U MICRO, ERUR #### [facility] [address] [place] [address] Aminata Lotus HYALINE CAST RARE Normal [facility] Comment on above: Performed By: #### U MICRO, ERUR #### [facility] [address] [place] [address] Aminata Lotus MUCOUS NONE SEEN Normal NONE SEEN [facility] Comment on above: Performed By: #### U MICRO, ERUR #### [facility] [address] [place] [address] Aminata Lotus RBC (U) [#/Vol] 2-5 Abnormal 0-2 [facility] Comment on above: Performed By: #### U MICRO, ERUR #### [facility] [address] [place] [address] Aminata Lotus WBC (Bld) [#/Vol] 5-10 Abnormal NONE SEEN [facility] Comment on above: Performed By: #### U TG, ERUR #### [facility] [address] [phone] Aminata Gautam OPERATIVE REPORTon OPERATIVE REPORT Name: LIAN PINTO LEMR: [id number]: MORIS MITTAL D.P.M.DATE OF SURGERY: 02/24/2017ANESTHESIA: General.1ST ELECTRICAL TECH/PROJECT MANAGER:PREOP DIAGNOSIS: Complication of external fixator, right.POSTOP DIAGNOSIS: Complication of external fixator, right.OPERATION: Removal of external fixator, right foot and leg.MACHINE OPERATOR TRANSPLANTER: Luis Fitzpatrick, PGY-2.HEMOSTASIS: Maintained on the field.ESTIMATED [...] completely removed. The leg was then dressed [facility] LAURO [id number] [address] [place] [address] [id number] DR: ANA M Knox REPORTwith sterile gauze, Rojas, Kerlix, and an William bandage. The patient toleratedthe procedure and anesthesia well in apparent satisfactory condition, wastransferred to the PACU. All vital signs were stable and vascular statusintact to her digits.COMPLICATIONS: None.PATHOLOGICAL SPECIMENS: External fixator, right leg. MORIS MITTAL D.P.M./[facility]/[id number]: 03/16/2017 10:56:16 E/S: Moris Mittal [facility]/25[facility]17 1448Signature on File ___[facility] [id number] [address] [place] [address] [id number] 76DICTATING DR: ANA M Knox REPORT Normal [facility] Vital Signs Date Time Vital Sign Value Performing Clinician Facility 05-29-2025 14: Body mass index (BMI) [Ratio] 40.24 kg/m2 [employer] Work Phone: [facility] 05-29-2025 14: Body weight 138.35 kg [employer] Work Phone: [facility] 05-29-2025 14:-0400 Diastolic blood pressure 74 mm[Hg] Jorge Lauren DO Work Phone: [facility] 05-29-2025 14:220400 Systolic blood pressure 110 mm[Hg] Jorge Lauren DO Work Phone: [facility] 04-18-2025 14:11-0400 Body mass index (BMI) [Ratio] 39.86 kg/m2 Jorge Lauren DO Work Phone: [facility] 04-18-2025 14:11040 Body weight 137.04 kg Jorge Lauren DO Work Phone: [facility] 04-18-2025 14:11040 Diastolic blood pressure 70 mm[Hg] Jorge Lauren DO Work Phone: [facility] 04-18-2025 14:11-0400 Systolic blood pressure 108 mm[Hg] Jorge Lauren DO Work Phone: [facility] 03-01-2025 13:08-0400 Body height 185.4 cm Kyler Carvajal PA Work Phone: [facility] 03-01-2025 13:08-0400 Body mass index (BMI) [Ratio] 39.71 kg/m2 Kyler Carvajal PA Work Phone: [facility] 03-01-2025 13:08-0400 Body weight 136.53 kg Kyler Carvajal PA Work Phone: [facility] 03-01-2025 13:08-0400 Diastolic blood pressure 80 mm[Hg] Kyler Carvaajl PA Work Phone: [facility] 03-01-2025 13:08-0400 Heart rate 70 /min Kyler Carvajal PA Work Phone: [facility] 03-01-2025 13:08-0400 Respiratory rate 16 /min Kyler Carvajal PA Work Phone: [facility] 03-01-2025 13:08-0400 SaO2% (BldA) [Mass fraction] 96 % Kyler FRANCO Work Phone: [facility] 03-01-2025 13:08-0400 Systolic blood pressure 122 mm[Hg] Kyler FRANCO Work Phone: [facility] 02-28-2025 13:15-0400 Body height 185.4 cm Thi Stephens MD Work Phone: [facility] 02-28-2025 13:15-0400 Body mass index (BMI) [Ratio] 40.11 kg/m2 Thi Stephens MD Work Phone: [facility] 02-28-2025 13:15-0400 Body weight 137.89 kg Thi Stephens MD Work Phone: [facility] 02-28-2025 13:15-0400 Heart rate 73 /min Thi Stephens MD Work Phone: [facility] 02-28-2025 13:15-0400 Respiratory rate 16 /min Thi Stephens MD Work Phone: [facility] 02-28-2025 13:15-0400 SaO2% (BldA) [Mass fraction] 99 % hTi Stephens MD Work Phone: [facility] 11-30-2024 09:00-0400 Body height 185.4 cm Kyler FRANCO Work Phone: [facility] 11-30-2024 09:00-0400 Body mass index (BMI) [Ratio] 39.98 kg/m2 Kyler FRANCO Work Phone: [facility] 11-30-2024 09:00-0400 Body weight 137.44 kg Kyler FRANCO Work Phone: [facility] 11-30-2024 09:00-0400 Diastolic blood pressure 80 mm[Hg] Kyler FRANCO Work Phone: [facility] 11-30-2024 09:00-0400 Heart rate 82 /min Kyler FRANCO Work Phone: [facility] 11-30-2024 09:00-0400 Respiratory rate 18 /min Kylerterence Carvajal PA Work Phone: [facility] 11-30-2024 09:00-0400 SaO2% (BldA) [Mass fraction] 99 % Kyler Carvajal PA Work Phone: [facility] 11-30-2024 09:00-0400 Systolic blood pressure 118 mm[Hg] Kyler Carvajal PA Work Phone: [facility] 11-01-2024 13:03-0500 Body mass index (BMI) [Ratio] 39.46 kg/m2 Jorge Lauren DO Work Phone: [facility] 11-01-2024 13:03-0500 Body weight 135.68 kg Jorge Lauren DO Work Phone: [facility] 11-01-2024 13:03-0500 Diastolic blood pressure 74 mm[Hg] Jorge Lauren DO Work Phone: [facility] 11-01-2024 13:03-0500 Systolic blood pressure 120 mm[Hg] Jorge Lauren DO Work Phone: [facility] 10-26-2024 13:57-0500 Body height 182.9 cm Kylerterence Carvajal PA Work Phone: [facility] 10-26-2024 13:57-0500 Body mass index (BMI) [Ratio] 40.96 kg/m2 Kyler Carvajal PA Work Phone: [facility] 10-26-2024 13:57-0500 Body weight 136.99 kg Kyler Carvajal PA Work Phone: [facility] 10-26-2024 13:57-0500 Diastolic blood pressure 62 mm[Hg] Kyler Carvajal PA Work Phone: [facility] 10-26-2024 13:57-0500 Heart rate 71 /min Kyler Carvajal PA Work Phone: [facility] 10-26-2024 13:57-0500 Respiratory rate 18 /min Kyler Carvajal PA Work Phone: [facility] 10-26-2024 13:57-0500 SaO2% (BldA) [Mass fraction] 100 % Kyler Carvajal PA Work Phone: [facility] 10-26-2024 13:57-0500 Systolic blood pressure 123 mm[Hg] Kyler Carvajal PA Work Phone: [facility] 09-19-2024 13:21-0500 Body height 185.4 cm Jorge Lauren DO Work Phone: [facility] 09-19-2024 13:21-0500 Body mass index (BMI) [Ratio] 38.37 kg/m2 Jorge Lauren DO Work Phone: [facility] 09-19-2024 13:21-0500 Body weight 131.91 kg Jorge Lauren DO Work Phone: [facility] 09-19-2024 13:21-0500 Diastolic blood pressure 70 mm[Hg] Jorge Lauren DO Work Phone: [facility] 09-19-2024 13:21-0500 Systolic blood pressure 120 mm[Hg] Jorge Lauren DO Work Phone: [facility] 09-07-2024 14:37-0500 Body height 185.4 cm Kyler Carvajal PA Work Phone: [facility] 09-07-2024 14:37-0500 Body mass index (BMI) [Ratio] 38.39 kg/m2 Kyler Carvajal PA Work Phone: [facility] 09-07-2024 14:37-0500 Body weight 132 kg Kyler Carvajal PA Work Phone: [facility] 09-07-2024 14:37-0500 Diastolic blood pressure 83 mm[Hg] Kyler Carvajal PA Work Phone: [facility] 09-07-2024 14:37-0500 Heart rate 80 /min Kyler Nienberg PA Work Phone: [facility] 09-07-2024 14:37-0500 Respiratory rate 16 /min Kyler Nienberg PA Work Phone: [facility] 09-07-2024 14:37-0500 SaO2% (BldA) [Mass fraction] 100 % Kyler Nienberg PA Work Phone: [facility] 09-07-2024 14:37-0500 Systolic blood pressure 126 mm[Hg] Kyler Nienberg PA Work Phone: [facility] 05-18-2024 11:25-0400 Body height 185.4 cm Kyler Nienberg PA Work Phone: [facility] 05-18-2024 11:25-0400 Body mass index (BMI) [Ratio] 38.26 kg/m2 Kyler Nienberg PA Work Phone: [facility] 05-18-2024 11:25-0400 Body weight 131.54 kg Kyler Nienberg PA Work Phone: [facility] 05-18-2024 11:25-0400 Diastolic blood pressure 85 mm[Hg] Kyler Nienberg PA Work Phone: [facility] 05-18-2024 11:25-0400 Heart rate 71 /min Kyler Nienberg PA Work Phone: [facility] 05-18-2024 11:25-0400 Respiratory rate 20 /min [facility]berg [facility] 05-18-2024 11:25-0400 Systolic blood pressure 118 mm[Hg] Kyler Nienberg PA Work Phone: [facility] 12-19-2021 16:25-0400 Body height 185.42 cm Toney P House Work Phone: TO-Ecvsvzlxsvzayu-[place] Work Phone: 12-19-2021 16:25-0400 Body mass index (BMI) [Ratio] 45.33 kg/m2 Toney P House Work Phone: WD-Dldpudhbmywvgc-Rj [place] Work Phone: 12-19-2021 16:25-0400 Body surface area Derived from formula 2.71 m2 Toney P House Work Phone: GJ-Ozxmikshkazadn-Vy [place] Work Phone: 12-19-2021 16:25-0400 Body temperature 96.8 [degF] Toney P House Work Phone: IK-Tuczlxvlhrmcbg-Hg [place] Work Phone: 12-19-2021 16:25-0400 Body weight 155.86 kg Toney P House Work Phone: DH-Wpbnteahczkmzq-St [place] Work Phone: 10-27-2021 09:32-0500 Body height 185.42 cm No PCP None MP-Otolaryngolog y-We [place] [facility] Work Phone: 10-27-2021 09:32-0500 Body mass index (BMI) [Ratio] 45.25 kg/m2 No PCP None QY-Uluspcvqsmnvql-Up [place] [facility] [address] Work Phone: 10-27-2021 09:32-0500 Body surface area Derived from formula 2.71 m2 No PCP None NB-Xcfftergyneywb-Tz [place] [facility] [address] Work Phone: 10-27-2021 09:32-0500 Body temperature 97.9 [degF] No PCP None MP-Otolaryngolo gy-We [place] [facility] Work Phone: 10-27-2021 09:32-0500 Body weight 155.58 kg No PCP None MP-Otolaryngolog y-We [place] [facility] Work Phone: 10-27-2021 09:32-0500 Diastolic blood pressure 83 mm[Hg] No PCP None WJ-Liflokyptadnjn-Qw [place] [facility] Work Phone: 10-27-2021 09:32-0500 Systolic blood pressure 133 mm[Hg] No PCP None WB-Grktmqqopzlivy-Qo [place] [facility] [address] Work Phone: 10-27-2021 09:32-0500 0 1 No PCP None MP-Otolaryngolog y-We [place] [facility] Work Phone: Comment on above: [employer] 08-16-2021 12:45-0500 Body height 185.42 cm Melody Casonmond Other [employer] Other 08-16-2021 12:45-0500 Body mass index (BMI) [Ratio] 41.55 kg/m2 Melody Casonmond Other [employer] Other 08-16-2021 12:45-0500 Body temperature 97.6 [degF] Melody Casonmond Other [employer] Other 08-16-2021 12:45-0500 Body weight 142.88 kg Melody Casonmond Other [employer] Other 08-16-2021 12:45-0500 Respiratory rate 18 /min Melody Casonmond Other [employer] Other 08-16-2021 12:45-0500 SaO2% (BldA) [Mass fraction] 98 % Melody Casonmond Other [employer] Other 07-21-2021 14:48-0500 Body height 185.42 cm No PCP None MG-Otolaryngolog y-We [place] Work Phone: 07-21-2021 14:48-0500 Body mass index (BMI) [Ratio] 44.59 kg/m2 No PCP None EP-Szrjdthemaufzt-Oa [place] Work Phone: 07-21-2021 14:48-0500 Body surface area Derived from formula 2.69 m2 No PCP None CY-Xacgkphjqzdfib-Zq [place] Work Phone: 07-21-2021 14:48-0500 Body temperature 97.9 [degF] No PCP None MG-Otolaryngolo gy-We [place] Work Phone: 07-21-2021 14:48-0500 Body weight 153.32 kg No PCP None MG-Otolaryngolog y-We stlake Work Phone: 07-21-2021 14:48-0500 Diastolic blood pressure 81 mm[Hg] No PCP None IY-Cmgbqohwzbkznn-Yl stlake Work Phone: 07-21-2021 14:48-0500 Systolic blood pressure 120 mm[Hg] No PCP None ZX-Gpgipiyposyvwb-Gl stlake Work Phone: 07-21-2021 14:48-0500 2 1 No PCP None MG-Otolaryngolog y-We [place]lake Work Phone: Comment on above: [employer] 04-07-2021 14:27-0400 Body height 185.42 cm No PCP None MG-Otolaryngolog y-We [facility]lake Work Phone: 04-07-2021 14:27-0400 Body mass index (BMI) [Ratio] 44.33 kg/m2 No PCP None EX-Nfglztzttufsgm-Zf stlake Work Phone: 04-07-2021 14:27-0400 Body surface area Derived from formula 2.68 m2 No PCP None EU-Whrnrlqjqxhgso-Nl stlake Work Phone: 04-07-2021 14:27-0400 Body temperature 98.2 [degF] No PCP None MG-Otolaryngolo gy-We stlake Work Phone: 04-07-2021 14:27-0400 Body weight 152.41 kg No PCP None MG-Otolaryngolog y-We [facility] Work Phone: 04-07-2021 14:27-0400 Diastolic blood pressure 85 mm[Hg] No PCP None LH-Ufdtzzejtijpeg-Kf stlake Work Phone: 04-07-2021 14:27-0400 Systolic blood pressure 133 mm[Hg] No PCP None DJ-Qeiwclseiysxkc-Fh stlake Work Phone: 04-07-2021 14:27-0400 0 1 [...] examination done Jorge Lauren DO Work Phone: [facility] Start: 05-29-2025 End: 05-29-2025 ambulatory JORGE LAUREN Not Available Start: 05-15-2025 Encounter for genera l adult medical examination without abnormal findings DO TONEY Melara [facility] Start: 05-15-2025 End: 05-15-2025 ambulatory DO TONEY [facility] Facility:[facility] Start: 04-18-2025 End: 04-18-2025 Bamboo flowsheet Jorge Lauren DO Work Phone: [facility] Start: 04-18-2025 End: 04-18-2025 Bamboo flowsheet Jorge Lauren DO Work Phone: [facility] Start: 04-18-2025 End: 04-18-2025 Office outpatient visit 15 minutes Jorge Lauren DO Work Phone: [facility] Comment on above: Dysfunctional uterin e bleeding Start: 04-18-2025 End: 04-18-2025 ambulatory JORGE LAUREN Not Available Start: 04-12-2025 End: 04-12-2025 ambulatory [facility] Start: 03-30-2025 End: 03-30-2025 ambulatory ZEESHAN Myra PERRY [facility] Start: 03-27-2025 ambulatory DO TONEY Pickett lity:[facility] Start: 03-01-2025 End: 03-01-2025 Office outpatient visit 15 minutes Kyler Justa FRANCO Work Phone: [facility] Comment on above: Disorder of sacrum ( Primary Dx) Start: 03-01-2025 End: 03-01-2025 ambulatory [facility] Start: 02-28-2025 End: 02-28-2025 Bamboo flowsheet Thi Stephens MD Work Phone: [facility] Start: 02-28-2025 End: 02-28-2025 Bamboo flowsheet Thi Stephens MD Work Phone: [facility] Start: 02-28-2025 End: 02-28-2025 Office outpatient visit 25 minutes Thi Stephens MD Work Phone: [facility] Comment on above: Postoperative hypoth yroidism (Primary Dx); Papillary thyroid carcinoma (HCC); Vitamin D deficiency; Encounter for dietary consultation; Class 3 severe obesity due to excess calories without serious comorbidity with body mass index (BMI) of 40.0 to 44.9 in adult ([facility]) Start: 02-28-2025 End: 02-28-2025 ambulatory THI STEPHENS Not Available Start: 02-12-2025 ambulatory TONEY MONTOYA Facilit y:[facility] Start: 11-30-2024 End: 11-30-2024 Office outpatient visit 15 minutes Kyler FRANCO Work Phone: [facility] Comment on above: Lumbar spondylosis ( Primary Dx) Start: 11-30-2024 End: 11-30-2024 ambulatory KYLER CARVAJAL [facility] Start: 11-17-2024 End: 11-17-2024 ambulatory ZEESHAN PERRY [facility] Start: 11-10-2024 End: 11-10-2024 ambulatory Jorge Lauren Facility:[facility] Start: 11-10-2024 End: 11-10-2024 Departed Referred Sofiya Cole MD Work Phone: [facility] Start: 11-03-2024 [...] 11-01-2024 ambulatory Sofiya Cole MD Work Phone: [facility] Work Phone: Start: 11-01-2024 End: 11-01-2024 Departed Referred Sofiya Cole MD Work Phone: [facility] Start: 10-26-2024 End: 10-26-2024 Office outpatient visit 25 minutes Kyler FRANCO Work Phone: [facility] Comment on above: Disorder of sacrum ( Primary Dx) Start: 10-26-2024 End: 10-26-2024 ambulatory KYLER CARVAJAL [facility] Start: 09-19-2024 End: 09-19-2024 Bamboo flowsheet Jorge [...] 25 minutes Thi Stephens MD Work Phone: [facility] Comment on above: Postoperative hypoth yroidism (CMS/HCC) (Primary Dx); Papillary thyroid carcinoma (CMS/HCC); Vitamin D deficiency; Encounter for dietary consultation; Class 3 severe obesity due to excess calories without serious comorbidity with body mass index (BMI) of 40.0 to 44.9 in adult (CMS/HCC) Start: 09-07-2024 End: 09-07-2024 Office outpatient visit 15 minutes Kyler FRANCO Work Phone: [facility] Comment on above: 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) Start: 09-07-2024 End: 09-07-2024 ambulatory KYLER CARVAJAL [facility] Start: 08-14-2024 End: 08-14-2024 ambulatory TONEY [facility] Start: 08-11-2024 End: 08-11-2024 ambulatory ZEESHAN [facility] Start: 08-09-2024 End: 08-18-2024 Telephone encounter Lata Mary RN [facility] Start: 08-07-2024 End: 08-07-2024 ambulatory TONEY Melara LINDSAY Facility:[facility] Start: 08-01-2024 End: 08-01-2024 ambulatory TONEY [facility] Start: 07-25-2024 End: 07-25-2024 Departed Referred Sofiya Cole MD Work Phone: [facility] Start: 07-25-2024 End: 07-25-2024 ambulatory Sofiya Cole MD Work Phone: [facility] Work Phone: Start: 07-25-2024 End: 07-25-2024 ambulatory [facility] Facility:[facility] Start: 07-25-2024 End: 07-25-2024 ambulatory Korey Ford Facility: [facility] Start: 06-28-2024 End: 06-28-2024 ambulatory TONEY Melara LINDSAY Facility:[facility] Start: 06-22-2024 End: 06-22-2024 ambulatory TONEY [facility] Start: 06-19-2024 End: 06-19-2024 ambulatory TONEY Melara [facility] Start: 06-17-2024 End: 06-17-2024 ambulatory [facility] Start: 06-16-2024 End: 06-16-2024 ambulatory ZEESHAN PERRY [facility] Start: 06-05-2024 End: 06-05-2024 ambulatory DO TONEY MONTOYA Facility:[facility] Start: 05-29-2024 End: 08-18-2024 Telephone encounter Kyler FRANCO Work Phone: [facility] Start: 05-18-2024 End: 05-18-2024 Office outpatient visit 25 minutes Kyler FRANCO Work Phone: [facility] Comment on above: Disorder of sacrum ( Primary Dx) Start: 05-18-2024 End: 05-18-2024 ambulatory KYLERTERENCE CARVAJAL [facility] Start: 12-19-2021 Postop follow up vis it related to original px Toney Melara Lindsay Work Phone: SN-Tkpzsdhzxfxldn-Gmuq lake Work Phone: Start: 12-05-2021 AUDIT Toney renteria Work Phone: GD-Hlygeybffrnlfe-Zudc lake Work Phone: Start: 11-28-2021 AUDIT Toney renteria Work Phone: YL-Ddqujxgvnhisdn-Lyli lake Work Phone: Start: 10-27-2021 Office outpatient vi sit 15 minutes No PCP None CS-Erqsdfjfdhfxfu-Vftz lake [facility] [address] Work Phone: Start: 08-16-2021 End: 08-16-2021 ambulatory Melody Brandon Other [employer] Other Start: 08-16-2021 Office outpatient vi sit 15 minutes Melody Brandon [facility] Start: 07-21-2021 Postop follow up vis it related to original px No PCP None EE-Vnpgutxdkdyvkv-Vwex lake Work Phone: Start: 07-10-2021 [facility], Provider: Edy Dominguez, Status: Pen, Time: 11:00 AM No PCP None AH-Dnwatthmgqyaqc-Boaj lake Work Phone: Start: 07-08-2021 Chart Update No PCP None -Otolary [facility] Work Phone: Start: 07-07-2021 Office outpatient vi sit 25 minutes No PCP None EI-Xagveuhzibrdas-Twgk lake Work Phone: Start: 06-12-2021 Phys/qhp telephone evaluation 5-10 min No PCP None DI-Fflhlltzezfras-Cdfc lake Work Phone: Start: 04-29-2021 Chart Update No PCP None -Otolary [facility] Work Phone: Start: 04-07-2021 Office outpatient ne w 45 minutes No PCP None WZ-Omlojpxhykubqy-Ejff lake Work Phone: Start: 08-28-2020 End: 08-29-2020 Patient encounter procedure AMY MARKER Facility: Procedures Date Procedure Procedure Detail Performing Clinician Start: 11-03-2024 ECG 12-LEAD Jorge Fazi o DO Work Phone: Start: 11-01-2024 Urine test visual color cmprsn meths Jorge Lauren DO Work Phone: Plan of Treatment Date Care Activity Detail Author Start: 03-01-2026 Adult BMI Screening Adult BMI Screening [facility] Start: 03-01-2026 Tobacco Screening Tobacco Screening [facility] Start: 11-30-2025 Adult BMI Screening Adult BMI Screening [facility] Start: 11-30-2025 Tobacco Screening Tobacco Screening [facility] Start: 10-26-2025 Adult BMI Screening Adult BMI Screening [facility] Start: 10-26-2025 Tobacco Screening Tobacco Screening [facility] Start: 09-07-2025 Adult BMI Screening Adult BMI Screening [facility] Start: 09-07-2025 Tobacco Screening Tobacco Screening [facility] Start: 08-22-2025 End: 08-22-2025 Patient encounter procedure [facility] Start: 08-11-2025 Tobacco Screening Tobacco Screening [facility] Start: 05-29-2025 End: 07-29-2026 MG Breast - bilateral Screening Bilateral screening mammogram Imaging Routine Breast cancer screening by mammogram Expected: 05/29/2025 (Approximate), Expires: 07/29/2026 [facility] Work Phone: Comment on above: Expected: 05/29/2025 (Approximate), Expi res: 07/29/2026 Start: 05-29-2025 End: 05-29-2025 Patient encounter procedure 05/29/2025 1:40 PM EDT Procedure Visit MAZIN MENDOZA [address] [place] [address] Jorge Aguilar DO [address] [place] Crist[place], [place] [id number] [facility] Start: 05-23-2025 End: 05-23-2025 Professional / ancillary services management 05/23/2025 1:00 PM EDT Ancillary Procedure MAZIN MENDOZA [address] [place] [address] [facility] Start: 05-18-2025 Adult BMI Screening Adult BMI Screening [facility] Start: 05-18-2025 Tobacco Screening Tobacco Screening [facility] Start: 05-07-2025 Influenza vaccination Influenza Vaccine [facility] Start: 04-18-2025 End: 10-19-2025 US Pelvis US Pelvis w/ TV Imaging Routine Dysfunctional uterine bleeding Expected: 04/18/2025, Expires: 10/19/2025 [facility] Work Phone: Comment on above: Expected: 04/18/2025, Expires: Start: 04-12-2025 End: 04-12-2025 Patient encounter procedure 04/12/2025 1:30 PM EDT Office Visit [facility] [address] [place] [address] Kyler Carvajal PA [address] [place], [place] [id number] [facility] Start: 03-30-2025 End: 03-30-2025 Admission to same day surgery center 03/30/2025 11:58 AM EDT - 03/30/2025 12:05 PM EDT Surgery [facility] [address] [place] [phone] Zeeshan Perry MD [address] [place], [place] [id number] INJECTION BLOCK NERVE SACROILIAC [84084 (CPT )] [facility] Comment on above: INJECTION BLOCK NERVE SACROILIAC [81150 (CPT )] Start: 03-30-2025 End: 03-30-2025 Inject si joint arthrgrphy&/anes/steroid w/trav INJECTION BLOCK NERVE SACROILIAC Disorder of sacrum 03/30/2025 11:58 AM EDT [facility] Start: 03-30-2025 Subsequent hospital visit by physician 03/30/2025 11:58 AM EDT Hospital Encounter [facility] [address] [place] [phone] Zeeshan Perry MD [address] [place], [place] [phone] [facility] Start: 02-28-2025 End: 02-28-2026 Thyroglobulin Thyroglobulin Lab Routine Postoperative hypothyroidism Papillary thyroid carcinoma (HCC) Expected: 02/28/2025 (Approximate), Expires: 02/28/2026 [facility] Work Phone: Comment on above: Expected: 02/28/2025 (Approximate), Expi res: 02/28/2026 Start: 02-28-2025 End: 02-28-2026 Thyroglobulin Antibody Thyroglobulin Antibody Lab Routine Postoperative hypothyroidism Papillary thyroid carcinoma (HCC) Expected: 02/28/2025 (Approximate), Expires: 02/28/2026 [facility] Comment on above: Expected: 02/28/2025 (Approximate), Expi res: 02/28/2026 Start: 02-28-2025 End: 02-28-2026 Thyrotropin [Units/volume] in Serum or Plasma TSH Lab Routine Postoperative hypothyroidism Expected: 02/28/2025 (Approximate), Expires: 02/28/2026 [facility] Comment on above: Expected: 02/28/2025 (Approximate), Expi res: 02/28/2026 Start: 02-28-2025 End: 02-28-2026 Thyroxine (T4) free [Mass/volume] in Serum or Plasma T4, free Lab Routine Postoperative hypothyroidism Expected: 02/28/2025 (Approximate), Expires: 02/28/2026 [facility] Comment on above: Expected: 02/28/2025 (Approximate), Expi res: 02/28/2026 Start: 02-28-2025 End: 02-28-2026 Triiodothyronine (T3) Free [Mass/volume] in Serum or Plasma T3, free Lab Routine Postoperative hypothyroidism Expected: 02/28/2025 (Approximate), Expires: 02/28/2026 [facility] Comment on above: Expected: 02/28/2025 (Approximate), Expi res: 02/28/2026 Start: 02-28-2025 End: 02-28-2025 Patient encounter procedure 02/28/2025 1:20 PM EDT Office Visit [facility] [address] [place] [address] Thi Stephens MD [address] [place] [address] [facility] Comment on above: Arrived Start: 01-30-2025 End: 01-30-2025 Patient encounter procedure 01/30/2025 2:30 PM EDT Office Visit [facility] [address] [place] [address] Kyler Carvajal, PA [address] [place], [place] [phone] [facility] Start: 12-07-2024 End: 12-07-2024 Patient encounter procedure 12/07/2024 1:30 PM EDT Office Visit [facility] [address] [place] [address] Kyler Carvajal PA [address] [place], [place] [phone] [facility] Start: 11-17-2024 End: 11-17-2024 Admission to same day surgery center 11/17/2024 10:26 AM EDT - 11/17/2024 10:33 AM EDT Surgery [facility] [address] [place] [phone] Zeeshan Perry MD [address] [place], [place] [phone] INJECTION BLOCK SACROILIAC JOINT [10601 (CPT )] [facility] Comment on above: INJECTION BLOCK SACROILIAC JOINT [61209 (CPT )] Start: 11-17-2024 End: 11-17-2024 Inject si joint arthrgrphy&/anes/steroid w/trav INJECTION BLOCK SACROILIAC JOINT Disorder of sacrum 11/17/2024 10:26 AM EDT [facility] Start: 11-17-2024 Subsequent hospital visit by physician 11/17/2024 10:26 AM EDT Hospital Encounter [facility] [address] [place] [phone] Zeeshan Perry MD [address] [place] [address] [facility] Start: 11-09-2024 End: 11-09-2024 Patient encounter procedure 11/09/2024 2:45 PM EST Office Visit [facility] [address] [place] [phone] Kyler Carvajal, PA [address] [place] [address] [facility] Start: 10-17-2024 End: 10-17-2024 Patient encounter procedure 10/17/2024 2:30 PM EST Procedure Visit [facility] [address] [place] [phone] Jorge Aguilar, [address] [place] [address] [facility] Start: 09-19-2024 End: 09-19-2025 [...] thyroid gland (CMS-HCC) Expected: 09/11/2024, Expires: 09/11/2025 [employer] Work Phone: Comment on above: Expected: 09/11/2024, Expires: Start: 09-11-2024 End: 09-11-2025 Thyroglobulin Antibody Thyroglobulin Antibody Lab Routine Postoperative hypothyroidism (CMS/HCC) Papillary thyroid carcinoma (CMS/HCC) Expected: 09/11/2024 (Approximate), Expires: 09/11/2025 [facility] Comment on above: Expected: 09/11/2024 (Approximate), Expi res: 09/11/2025 Start: 09-11-2024 End: 09-11-2025 Thyroid profile includes TSH FT4 Thyroid profile includes TSH FT4 Lab Routine Postprocedural hypothyroidism Malignant neoplasm of thyroid gland (CMS-HCC) Expected: 09/11/2024, Expires: 09/11/2025 [employer] Work Phone: Comment on above: Expected: 09/11/2024, Expires: Start: 09-11-2024 End: 09-11-2025 Thyrotropin [Units/volume] in Serum or Plasma TSH Lab Routine Postoperative hypothyroidism (CMS/HCC) Papillary thyroid carcinoma (CMS/HCC) Expected: 09/11/2024 (Approximate), Expires: 09/11/2025 [facility] Comment on above: Expected: 09/11/2024 (Approximate), Expi res: 09/11/2025 Start: 09-11-2024 End: 09-11-2025 Thyroxine (T4) free [Mass/volume] in Serum or Plasma [facility] Comment on above: Expected: 09/11/2024 (Approximate), Expi res: 09/11/2025 Expected: 09/11/2024 , Expires: 09/11/2025 Start: 09-11-2024 End: 09-11-2025 Triiodothyronine (T3) Free [Mass/volume] in Serum or Plasma [facility] Comment on above: Expected: 09/11/2024 (Approximate), Expi res: 09/11/2025 Expected: 09/11/2024 , Expires: 09/11/2025 Start: 09-07-2024 End: 09-07-2024 Patient encounter procedure 09/07/2024 2:30 PM EST Office Visit [facility] [address] [place] [address] Kyler Carvajal PA [address] [place] [address] [facility] Start: 07-04-2024 End: 07-04-2024 Patient encounter procedure 07/04/2024 12:30 PM EDT Office Visit [facility] [address] [place] [address] Kyler Carvajal PA [address] [place] [address] [facility] Start: 06-16-2024 End: 06-16-2024 Admission to same day surgery center 06/16/2024 11:15 AM EDT - 06/16/2024 11:22 AM EDT Surgery [facility] [address] [place] [address] Zeeshan Perry MD [address] [place] [address] INJECTION BLOCK SACROILIAC JOINT [27407 (CPT )] [facility] Comment on above: INJECTION BLOCK SACROILIAC JOINT [83929 (CPT )] Start: 06-16-2024 End: 06-16-2024 Inject si joint arthrgrphy&/anes/steroid w/trav INJECTION BLOCK SACROILIAC JOINT Disorder of sacrum 06/16/2024 11:15 AM EDT [facility] Start: 06-16-2024 Subsequent hospital visit by physician 06/16/2024 11:15 AM EDT Hospital Encounter [facility] [address] [facility] [phone] Zeeshan Perry MD [address] [place] [address] [facility] Start: 05-07-2024 Influenza vaccination Influenza Vaccine [facility] Start: 03-23-2022 FUV, Provider: Edy Dominguez, Status: Pen, Time: 2:30 PM FUV, Provider: Edy Dominguez, Status: Pen, Time: 2:30 PM BB-Nolkjyuvxqmvbj-Nri tlake Work Phone: Start: 12-19-2021 POV, Provider: Edy Dominguez, Status: Pen, Time: 4:00 PM POV, Provider: Edy Dominguez, Status: Pen, Time: 4:00 PM TQ-Ljgyduvzlggncg-Uva tlake Work Phone: Start: 12-04-2021 [facility]: Edy Dominguez, Status: Pen, Time: 7:00 AM [facility], Provider: Edy Dominguez, Status: Pen, Time: 7:00 AM BI-Bwjtwfdmmxnppa-Vse tlake Work Phone: Start: 10-06-2021 [facility], Provider: Edy Dominguez, Status: Pen, Time: 3:00 PM FUV, Provider: Edy Dominguez, Status: Pen, Time: 3:00 PM KJ-Khfqucjfyytwte-Qli tlake Work Phone: Start: 07-10-2021 [facility] Provider: Edy Dominguez, Status: Pen, Time: 11:00 AM [facility] Provider: Edy Dominguez, Status: Pen, Time: 11:00 AM EZ-Pevsfovlbwmzuz-Mfk tlake Work Phone: Start: 01-24-1997 Screening for malignant neoplasm of cervix Pap Smear [facility] Start: 01-24-1995 DTaP,Tdap and Td Vaccines (1 - Tdap) DTaP,Tdap and Td Vaccines (1 - Tdap) [facility] Start: 01-24-1994 Adult BMI Follow Up Plan Adult BMI Follow Up Plan [facility] Start: 1988 Depression Screening Depression Screening [facility] THIN PREP TIS PAP AN D HR HPV DNA THIN PREP TIS PAP AND HR HPV DNA Pathology and Cytology Routine Well woman exam with routine gynecological exam Ordered: 05/29/2025 [facility] Comment on above: Ordered: 05/29/2025 Tissue exam Tissue exam Path ology and Cytology Routine Dysfunctional uterine bleeding Pre-operative exam Ordered: 11/01/2024 [facility] Work Phone: Comment on above: Ordered: 11/01/2024 Immunizations Immunization Date Immunization Notes Care Provider [facility] 08-21-2020 influenza, injectabl e, quadrivalent, contains preservative Thi Stephens MD Work Phone: [facility] 08-21-2020 influenza virus vaccine, unspecified formulation Kyler FRANCO Work Phone: [facility] 05-23-2019 influenza, injectabl e, quadrivalent, contains preservative Thi Stephens MD Work Phone: [facility] Payers Date Payer Category Payer Self-pay 2023 Medicare (Managed Care) VERENICE DRISCOLL [facility] [id number] 2023 Medicaid [id number] 2022 Medicare [facility] MEDICARE [employer]AGE [id number] 2022-Present [phone] [address] [place] [address] [id number] 2022 Medicare HMO [employer]ICARE [id number] 2022 Unknown [id number] 2019 Auto Insurance [employer] [id number] 1976 Unknown [id number] 2.840.1.827833.3.579.2. 593 1976 Unknown [id number] 2..840.1.464772.3.579.2. 1286 1976 Unknown [id number] 2.840.1.008709.3.579.2. 128 1976 Unknown [id number] 2.16.840.1.099969.3.579.2. 1285 1976 Unknown [id number] 2.16.840.1.282519.3.579.2. 1285 1976 Unknown [id number] 2.16.840.1.963355.3.579.2. 1285 1976 Unknown [id number] 2.16.840.1.193537.3.579.2. 1285 1976 Unknown [id number] 2.16.840.1.312342.3.579.2. 1285 1976 Unknown [id number] 2.16.840.1.047679.3.579.2. 1285 1976 Unknown [id number] 2.16.840.1.354901.3.579.2. 1285 1976 Unknown [id number] 2.16.840.1.085287.3.579.2. 1285 1976 Unknown [id number] 2.16.840.1.828441.3.579.2. 1285 1976 Unknown [id number] 2.16.840.1.163728.3.579.2. 1285 1976 Unknown [id number] 2.16.840.1.901953.3.579.2. 1285 1976 Unknown [id number] 2.16.840.1.552447.3.579.2. 1285 1976 Unknown [id number] 2.16.840.1.970624.3.579.2. 1285 1976 Unknown [id number] 2.16.840.1.206521.3.579.2. 1285 1976 Unknown [id number] 2.16.840.1.233622.3.579.2. 1285 1976 Unknown [id number] 2.16.840.1.526182.3.579.2. 1286 1976 Unknown [id number] 2.16.840.1.943218.3.579.2. 1976 Unknown [id number] 2.16.840.1.261057.3.579.2. 1976 Unknown [id number] 2.16.840.1.941361.3.579.2. 1976 Unknown [id number] 2.16.840.1.760382.3.579.2. 1976 Unknown [id number] 2.16.840.1.395290.3.579.2. 1976 Unknown [id number] 2.16.840.1.705084.3.579.2. 1976 Unknown [id number] 1975 Unknown [id number]. 1975 Unknown [id number]. 1258 1975 Unknown [id number]. 1258 1975 Unknown [id number]. 1258 1975 Unknown [id number] [id number]. 1258 1975 Unknown [id number]. 1258 1975 Unknown [id number]. 1259 1958 Medicaid [id number] 1958 Medicare [id number] Private Health Insurance [employer] [place] [id number] Unknown Unknown [id number]. 531 Unknown [id number]. 531 Unknown [id number]. 531 Social History Date Type Detail Facility Unknown if ever smoked [employer] Other Start: 08-09-2024 End: 09-07-2024 Sex Assigned At [facility] ystem Tobacco smoking stat us NHIS Unknown if ever smoked [facility] Work Phone: Start: 04-11-2015 End: 07-26-2024 Sex Female (finding) [facility] Start: 1975 Sex Assigned At Female F [facility] Start: 07-08-2022 End: 08-09-2024 Tobacco smoking status NHIS Never smoked tobacco [facility] Start: 07-08-2022 End: 08-09-2024 Tobacco use and exposure Smokeless tobacco non-user [facility] Start: 09-07-2024 End: 03-01-2025 Alcoholic beverage intake Current drinker of alcohol (finding) [facility] Start: 08-09-2024 End: 09-07-2024 History of Social function [facility] Adolescent depressio n screening assessment 0 [facility] Start: 04-12-2017 Alcohol Comment Socially [facility] Start: 1975 Sex assigned at Not on file P [facility] Medical Equipment Procedure Code Equipment Code Equipment Origin al Text Equipment Identifier Dates Scr Bn Twstof Fr s 2.0x13 Ns - Sws13 - [id number] Start: 02-11-2018 Comment on above: Description: WS13 2. 0 major thread, 13 mm screw, pitch 0.87 - SCR BN TWSTOF FRS 2.0X13 NS Titanium Fixos 2.0 WS twist off screws Scr Bn Twstof Fr s 2.0x15 Ns - Sws15 - [id number] Start: 02-11-2018 Comment on above: Description: WS15 2. 0 major thread, 15 mm screw, pitch 0.87 - SCR BN TWSTOF FRS 2.0X 15 NS Titanium Fixos 2.0 WS twist off screws Clinical Notes 05-04-2021 to 05-29-2025 Leandra Rangel - 05/29/2025 1:40 PM EDTLotus Bailey LPN - 04/18/2025 1:50 PM EDJOAN Ramirez - 03/01/2025 1:00 PM EDTPatient Thao Stephens [...] on 06-27-[address] Aguilar at [facility]. MEDICATIONS Current Outpatient Medications Medication [...] mass index (BMI) of 40.0 to 49.9 ([facility]) Papillary thyroid carcinoma (HCC) 07/2021 Post-surgical hypothyroidism Vitamin D deficiency, unspecified HISTORY PAST MEDICAL HISTORY SOCIAL HISTORY Past Medical History: Diagnosis Date Dietary counseling and surveillance Morbid obesity with body mass index (BMI) of 40.0 to 49.9 ([facility]) Papillary thyroid carcinoma (HCC) 07/2021 left side [...] nursing note reviewed. Exam conducted with a moving picture operator present. Vitals: Estimated body mass index is [...] reviewed, and patient is to proceed to [facility] OR. Follow Up: Patient is to follow up at 1 & 6 weeks post operative to assess proper healing and recovery from procedure. Documented by Lotus Bailey LPN on behalf of: Jorge Aguilar DO documented in this encounter [facility] 05-28-2025 Note - From: TONEY MONTOYA DO To: [facility] Clinical Pool ([facility]); Sent: 05/28/2025 12:54:45 EDT Subject: FW: Medication Management Due Date/Time: 05/29/2025 12:26:00 EDT Caller Name: BLAIR LAURO Brown; Caller Number: , From: [facility] To: TONEY MONTOYA DO Sent: May 28, 2025 11:26:13 AM CDT Subject: Medication Management Due: May 29, 2025 12:02:02 AM CDT On Hold Pending Signature Dispensed Drug: LORazepam (LORazepam 0.5 mg oral tablet), TAKE 1 TABLET BY MOUTH THREE TIMES DAILY Quantity: 90 tab(s) Days Supply: 30 Refills: 0 Substitutions Allowed Notes from Pharmacy: From: Mey Gutierrez To: [place] [address] Sent: 05/28/2025 13:25:06 EDT Subject: FW: Medication Management Not Approved: proposed to provider LORazepam (LORazepam 0.5 MG Oral Tablet) TAKE 1 TABLET BY MOUTH THREE TIMES DAILY Qty: 90 tab(s) Days Supply: 30 Refills: 0 Substitutions Allowed Route To Pharmacy - [place] [address] Signed by Mey Gutierrez rx sent [facility] 05-12-2025 Note Entered by MILTON MONTOYA DO on May 12, 2025 11:34:27 EDT From: TONEY MONTOYA DO To: [place] [address] Sent: 05/12/2025 11:34:27 EDT Subject: Medication Management Submitted: Complete:deutetrabenazine (Austedo 6 mg oral tablet) Signed by TONEY MONTOYA DO 05/12/2025 11:34:00 EDT Approved deutetrabenazine (Austedo 6 MG Oral Tablet) Take 1 tablet by mouth twice daily with food Qty: 60 tab(s) Days Supply: 30 Refills: 0 Substitutions Allowed Route To Pharmacy - [place] [address] From: [place] [address] To: TONEY MONTOYA DO Sent: May 12, 2025 9:03:43 AM CDT Subject: Medication Management Due: May 13, 2025 12:23:41 AM CDT On Hold Pending Signature Dispensed Drug: deutetrabenazine (Austedo 6 mg oral tablet), Take 1 tablet by mouth twice daily with food Quantity: 60 tab(s) Days Supply: 30 Refills: 0 Substitutions Allowed Notes from Pharmacy: [facility] 04-30-2025 Note Entered by MILTON MONTOYA DO on April 30, 2025 11:41:27 EDT From: TONEY MONTOYA DO To: [place] [address] Sent: 04/30/2025 11:41:27 EDT Subject: Medication Management Submitted: Complete:citalopram (citalopram 20 mg oral tablet) Signed by TONEY MONTOYA DO 04/30/2025 11:41:00 EDT Approved with modifications: citalopram (Citalopram Hydrobromide 20 MG Oral Tablet) Take 1 tablet by mouth once daily Qty: 30 tab(s) Days Supply: 30 Refills: 5 Substitutions Allowed Route To Pharmacy - [place] [address] From: [place] [address] To: TONEY MONTOYA DO Sent: April 30, 2025 10:03:45 AM CDT Subject: Medication Management Due: May 01, 2025 12:02:58 AM CDT On Hold Pending Signature Dispensed Drug: citalopram (citalopram 20 mg oral tablet), Take 1 tablet by mouth once daily Quantity: 30 tab(s) Days Supply: 30 Refills: 0 Substitutions Allowed Notes from Pharmacy: [facility] 04-18-2025 History of Presen t illness [...] mass index (BMI) of 40.0 to 49.9 ([facility]) Papillary thyroid carcinoma (HCC) 07/2021 Post-surgical hypothyroidism Vitamin D deficiency, unspecified HISTORY PAST MEDICAL HISTORY SOCIAL HISTORY Past Medical History: Diagnosis Date Dietary counseling and surveillance Morbid obesity with body mass index (BMI) of 40.0 to 49.9 ([facility]) Papillary thyroid carcinoma (HCC) 07/2021 [...] nursing note reviewed. Exam conducted with a moving picture operator present. Vitals: Estimated body mass index is [...] Jorge Aguilar DO documented in this encounter [facility] 03-08-2025 Note Entered by MILTON MONTOYA DO on March 08, 2025 10:58:59 EDT From: TONEY MONTOYA DO To: [facility] Sent: 03/08/2025 10:58:58 EDT Subject: Medication Management Submitted: Complete:cariprazine (Vraylar 6 mg oral capsule) Signed by TONEY MONTOYA DO 03/08/2025 10:58:00 EDT Approved with modifications: cariprazine (Vraylar 6 MG Oral Capsule) Take 1 capsule by mouth once daily Qty: 30 cap(s) Days Supply: 30 Refills: 2 Substitutions Allowed Route To Pharmacy - [facility] From: [facility] To: TONEY MONTOYA DO Sent: March 08, 2025 9:53:19 AM CDT Subject: Medication Management Due: March 09, 2025 12:01:42 AM CDT On Hold Pending Signature Dispensed Drug: cariprazine (Vraylar 6 mg oral capsule), Take 1 capsule by mouth once daily Quantity: 30 cap(s) Days Supply: 30 Refills: 0 Substitutions Allowed Notes from Pharmacy: [facility] 03-01-2025 History of Presen t illness Narrative [facility] [address] [place] [address] Patient: Lauro Pinto Sex: female : 1975 Age: 50 y.o. PCP: TONEY MONTOYA DO 03/01/2025 Lauroneena Pinto is here for a(n) 3 month [...] 03/20/2022 Performed by Zeeshan Perry MD at [facility] INJECTION BLOCK NERVE MEDIAL BRANCH Bilat L 4/5,5/ Bilateral 02/06/2022 Performed by Zeeshan Perry MD at [facility] INJECTION BLOCK SACROILIAC JOINT Bilateral 11/17/2024 Performed by Zeeshan Perry MD at [facility] INJECTION BLOCK SACROILIAC JOINT Bilateral 08/11/2024 Performed by Zeeshan Perry MD at [facility] IN[facility]CTION BLOCK SACROILIAC JOINT Bilateral 07/09/2023 Performed by Zeeshan Perry MD at [facility] INJECTION BLOCK SACROILIAC JOINT Bilateral 08/07/2022 Performed by Zeeshan Perry MD at [facility] MEDIAL BRANCH NERVE BLOCK Bialteral L 3/4, 4/5 Medial Branhc Block X 1 Bilateral 05/07/2017 Performed by Zeeshan Perry MD at [facility] MEDIAL BRANCH NERVE BLOCK BILATERAL L3/4, 4/5 Bilateral 10/22/2017 Performed by Zeeshan Perry MD at [facility] KNEE ARTHROSCOPY W/ MENISCECTOMY Left 11/2022 OSTEOTOMY KELTON PROCEDURE METATARSAL Right 02/11/2018 Performed by Hector Watson DPM at [facility] RADIOFREQUENCY ABLATION SPINAL left L 4/5, 5/1 Left 05/15/2022 Performed by Zeeshan Perry MD at [facility] RADIOFREQUENCY ABLATION SPINAL right L 4/5,5/1 Right 04/24/2022 Performed by Zeeshan Perry MD at [facility] RADIOFREQUENCY ABLATION SPINAL: right L34 45 rfa Right 03/11/2018 Performed by Zeeshan Perry MD at [facility] SPINE SURGERY 09/06/2009 L5/S1 diskectomy and [...] the above service. Zainab Robles CNA 03/01/25 1336 JOAN John 03/01/25 1342 documented in this encounter [facility] Arav 03-01-2025 Instructions Zainab VIVIAN Robles - 03/01/2025 1:00 PM EDT Facet Injection [...] nearest emergency room. documented in this encounter [facility] 02-28-2025 History of Presen t illness Narrative [...] 08/2022 follow up visit on 08/18/2022 on 200+32=973 mcg daily. no new lab yet. HPI: 01/2022 New patient sent from Dr. Edy Dominguez, the surgeon, with the surgery for her twice in [facility] in [place], first one in left lobe for thyroid [...] not have the pathology report left side. [id number], largest foci 0.8 cm. SUBJECTIVE: MEDICATIONS: Current [...] mass index (BMI) of 40.0 to 49.9 ([facility]) Papillary thyroid carcinoma (HCC) 07/2021 left side [...] (BMI) of 40.0 to 44.9 in adult ([facility]) Diet and exercise reviewed with the patient Follow up in about 6 months (around 08/30/2025). documented in this encounter [facility] 02-07-2025 Note Entered by MILTON MONTOYA DO on February 07, 2025 16:09:29 EDT From: TONEY MONTOYA DO To: [facility] Sent: 02/07/2025 16:09:29 EDT Subject: Medication Management Submitted: Complete:ferrous gluconate (ferrous gluconate 324 mg (38 mg elemental iron) oral tablet) Signed by TONEY MONTOYA DO 02/07/2025 16:09:00 EDT Approved with modifications: ferrous gluconate (Ferrous Gluconate 324 (38 Fe) MG Oral Tablet) Take 1 tablet by mouth once daily Qty: 100 tab(s) Days Supply: 100 Refills: 1 Substitutions Allowed Route To Pharmacy - [facility] 1429 From: [place] [address] To: TONEY MONTOYA DO Sent: February 07, 2025 2:42:48 PM CDT Subject: Medication Management Due: February 08, 2025 12:58:21 PM CDT On Hold Pending Signature Dispensed Drug: ferrous gluconate (ferrous gluconate 324 mg (38 mg elemental iron) oral tablet), Take 1 tablet by mouth once daily Quantity: 100 tab(s) Days Supply: 100 Refills: 0 Substitutions Allowed Notes from Pharmacy: [facility] 01-01-2025 Note Entered by MILTON MONTOYA DO on January 01, 2025 11:36:04 EDT From: TONEY MONTOYA DO To: [place] [address] Sent: 01/01/2025 11:36:03 EDT Subject: Medication Management Submitted: Complete:busPIRone (busPIRone 10 mg oral tablet) Signed by TONEY MONTOYA DO 01/01/2025 11:36:00 EDT Approved with modifications: busPIRone (busPIRone HCl 10 MG Oral Tablet) Take 1 tablet by mouth twice daily as needed Qty: 60 tab(s) Days Supply: 30 Refills: 1 Substitutions Allowed Route To Pharmacy - [place] [address] From: [place] [address] To: TONEY MONTOYA DO Sent: January 01, 2025 10:01:56 AM CDT Subject: Medication Management Due: January 02, 2025 9:38:10 AM CDT On Hold Pending Signature Dispensed Drug: busPIRone (busPIRone 10 mg oral tablet), Take 1 tablet by mouth twice daily as needed Quantity: 60 tab(s) Days Supply: 30 Refills: 0 Substitutions Allowed Notes from Pharmacy: [facility] 12-18-2024 Note Entered by MILTON MONTOYA DO on December 18, 2024 07:29:23 EDT From: TONEY MONTOYA DO To: [place] [address] Sent: 12/18/2024 07:29:23 EDT Subject: Medication Management [...] 30 Refills: 5 Substitutions Allowed Route To [place] [address] Approved with modifications: mirtazapine (Mirtazapine 30 MG Oral Tablet) TAKE 1 TABLET BY MOUTH ONCE DAILY AT BEDTIME Qty: 30 tab(s) Days Supply: 30 Refills: 5 Substitutions Allowed Route To [place] [address] From: [place] [address] To: TONEY MONTOYA DO Sent: December 17, [...] Refills: 0 Substitutions Allowed Notes from Pharmacy: [facility] 11-30-2024 History of Presen t illness Narrative [facility] [address] [place] [address] Patient: Lauro Pinto Sex: female : 1975 Age: 49 y.o. PCP: TONEY MONTOYA, 11/30/2024 Lauro Pinto is here for a(n) [...] 03/20/2022 Performed by Zeeshan Perry MD at [facility] INJECTION BLOCK NERVE MEDIAL BRANCH Bilat L 4/5,5/1 Bilateral 02/06/2022 Performed by Zeeshan Perry MD at [facility] INJECTION BLOCK SACROILIAC JOINT Bilateral 11/17/2024 Performed by Zeeshan Perry MD at [facility] INJECTION BLOCK SACROILIAC JOINT Bilateral 08/11/2024 Performed by Zeeshan Perry MD at [facility] INJECTION BLOCK SACROILIAC JOINT Bilateral 07/09/2023 Performed by Zeeshan Perry MD at [facility] INJECTION BLOCK SACROILIAC JOINT Bilateral 08/07/2022 Performed by Zeeshan Perry MD at [facility] MEDIAL BRANCH NERVE BLOCK Bialteral L 3/4, 4/5 Medial Branhc Block X 1 Bilateral 05/07/2017 Performed by Zeeshan Perry MD at [facility] MEDIAL BRANCH NERVE BLOCK BILATERAL L3/4, 4/5 Bilateral 10/22/2017 Performed by Zeeshan Perry MD at [facility] KNEE ARTHROSCOPY W/ MENISCECTOMY Left 11/2022 OSTEOTOMY KELTON PROCEDURE METATARSAL Right 02/11/2018 Performed by Hector Watson DPM at [facility] RADIOFREQUENCY ABLATION SPINAL left L 4/5, 5/1 Left 05/15/2022 Performed by Zeeshan Perry MD at [facility] RADIOFREQUENCY ABLATION SPINAL right L 4/5,5/1 Right 04/24/2022 Performed by Zeeshan Perry MD at [facility] RADIOFREQUENCY ABLATION SPINAL: right L34 45 rfa Right 03/11/2018 Performed by Zeeshan Perry MD at [facility] SPINE SURGERY 09/06/2009 L5/S1 diskectomy and [...] decision making: Obesity OARRS: Reviewed. Scribe Statement: Camelia Hunt RN, scribed for and in the presence of JOAN JOHN who performed the above service. Camelia Chakraborty RN 11/30/2424 JOAN John 11/30/24 0932 documented in this encounter [facility] 11-20-2024 Note Entered by MILTON MONTOYA DO on November 20, 2024 07:29:00 EDT From: TONEY MONTOYA DO To: [place] [address] Sent: 11/20/2024 07:29:00 EDT Subject: Medication Management Submitted: Complete:cariprazine (Vraylar 1.5 mg oral capsule) Signed by TONEY MONTOYA DO 11/20/2024 07:28:00 EDT Approved with modifications: cariprazine (Vraylar 1.5 MG Oral Capsule) Take 1 capsule by mouth once daily Qty: 30 cap(s) Days Supply: 30 Refills: 5 Substitutions Allowed Route To Pharmacy - [place] [address] From: [place] [address] To: TONEY MONTOYA DO Sent: November 19, 2024 5:41:47 AM CDT Subject: Medication Management Due: November 20, 2024 12:27:06 AM CDT On Hold Pending Signature Dispensed Drug: cariprazine (Vraylar 1.5 mg oral capsule), Take 1 capsule by mouth once daily Quantity: 30 cap(s) Days Supply: 30 Refills: 0 Substitutions Allowed Notes from Pharmacy: [facility] 11-06-2024 Note Entered by MILTON MONTOYA DO on November 06, 2024 11:01:24 EST From: TONEY MONTOYA DO To: [facility] Sent: 11/06/2024 11:01:24 EST Subject: Medication Management Submitted: Complete:citalopram (citalopram 20 mg oral tablet) Signed by TONEY MONTOYA DO 11/06/2024 11:01:00 EST Approved with modifications: citalopram (Citalopram Hydrobromide 20 MG Oral Tablet) Take 1 tablet by mouth once daily Qty: 30 tab(s) Days Supply: 30 Refills: 5 Substitutions Allowed Route To Pharmacy - [place] [address] From: [place] [address] To: TONEY MONTOYA DO Sent: November 06, 2024 8:20:27 AM CUSTOMER ACCOUNT MANAGER Subject: Medication Management Due: November 07, 2024 12:02:49 AM CUSTOMER ACCOUNT MANAGER On Hold Pending Signature Dispensed Drug: citalopram (citalopram 20 mg oral tablet), Take 1 tablet by mouth once daily Quantity: 30 tab(s) Days Supply: 30 Refills: 0 Substitutions Allowed Notes from Pharmacy: [facility] 11-01-2024 History of Presen t illness Narrative Reason for Appointment: Patient ID: Lauro Pinto is a 49 y.o. female who presents for Vaginal Bleeding and Pre-op Visit Patient presents today for Pre Op/Endometrial Biopsy appointment. Patient is scheduled to undergo Endometrial Ablation with Anya on 11/10/[address] Aguilar at [facility]. MEDICATIONS Current Outpatient Medications Medication [...] mass index (BMI) of 40.0 to 49.9 ([facility]) Papillary thyroid carcinoma ([facility]) 07/2021 Post-surgical hypothyroidism ([facility]) Vitamin D deficiency, unspecified HISTORY PAST MEDICAL HISTORY SOCIAL HISTORY Past Medical History: Diagnosis Date Dietary counseling and surveillance Morbid obesity with body mass index (BMI) of 40.0 to 49.9 ([facility]) Papillary thyroid carcinoma ([facility]) 07/2021 left side Jul 2021, Completion sx November 2021 Post-surgical hypothyroidism ([facility]) Vitamin D deficiency, unspecified Social [...] nursing note reviewed. Exam conducted with a moving picture operator present. Vitals: Estimated body mass index is [...] reviewed, and patient is to proceed to [facility]. Follow Up: Patient is to follow up between 1-2 weeks post operative to assess proper healing and recovery from procedure. Documented by Lotus Bailey LPN on behalf of: Jorge Aguilar DO documented in this encounter [facility] 10-31-2024 Note Entered by MILTON MONTOYA DO on October 31, 2024 14:25:57 EST From: TONEY MONTOYA DO To: [facility] 14[facility] Sent: 10/31/2024 14:25:57 EST Subject: Medication Management Submitted: Complete:omeprazole (omeprazole 40 mg oral delayed release capsule) Signed by TONEY MONTOYA DO 10/31/2024 14:25:00 EST Approved with modifications: omeprazole (OMEPRAZOLE DR 40MG CAP) Take 1 capsule by mouth once daily Qty: 30 cap(s) Days Supply: 30 Refills: 5 Substitutions Allowed Route To Pharmacy - [facility] From: [facility] 14[facility] To: TONEY MONTOYA DO Sent: October 31, 2024 12:02:15 PM CUSTOMER ACCOUNT MANAGER Subject: Medication Management Due: November 01, 2024 12:11:39 AM CUSTOMER ACCOUNT MANAGER On Hold Pending Signature Dispensed Drug: omeprazole (omeprazole 40 mg oral delayed release capsule), Take 1 capsule by mouth once daily Quantity: 30 cap(s) Days Supply: 30 Refills: 0 Substitutions Allowed Notes from Pharmacy: [facility] 10-26-2024 History of Presen t illness Narrative [facility] [address] [place] [address] Patient: Lauro Brown Blair Sex: female : 1975 Age: 49 y.o. PCP: TONEY MONTOYA DO 10/26/2024 Lauroneena Pinot is here for a(n) follow up for [...] 03/20/2022 Performed by Zeeshan Perry MD at [facility] INJECTION BLOCK NERVE MEDIAL BRANCH Bilat L 4/5,5/1 Bilateral 02/06/2022 Performed by Zeeshan Perry MD at [facility] INJECTION BLOCK SACROILIAC JOINT Bilateral 08/11/2024 Performed by Zeeshan Perry MD at [facility] IN[facility]CTION BLOCK SACROILIAC JOINT Bilateral 07/09/2023 Performed by Zeeshan Perry MD at [facility] INJECTION BLOCK SACROILIAC JOINT Bilateral 08/07/2022 Performed by Zeeshan Perry MD at [facility] INJECTION MEDIAL BRANCH NERVE BLOCK Bialteral L 3/4, 4/5 Medial Branhc Block X 1 Bilateral 05/07/2017 Performed by Zeeshan Perry MD at [facility] INJECTION MEDIAL BRANCH NERVE BLOCK BILATERAL L3/4, 4/5 Bilateral 10/22/2017 Performed by Zeeshan Perry MD at [facility] KNEE ARTHROSCOPY W/ MENISCECTOMY Left 11/2022 OSTEOTOMY KELTON PROCEDURE METATARSAL Right 02/11/2018 Performed by Hector Watson DPM at [facility] RADIOFREQUENCY ABLATION SPINAL left L 4/5, 5/1 Left 05/15/2022 Performed by Zeeshan Perry MD at [facility] RADIOFREQUENCY ABLATION SPINAL right L 4/5,5/1 Right 04/24/2022 Performed by Zeeshan Perry MD at [facility] RADIOFREQUENCY ABLATION SPINAL: right L34 45 rfa Right 03/11/2018 Performed by Zeeshan Perry MD at [facility] SPINE SURGERY 09/06/2009 L5/S1 diskectomy and [...] in the documentation, as scribed by Zainab Boonie, HOME CARE MANAGER in my presence, and it is both accurate and complete. Zainab Robles CNA 10/26/24 1434 JOAN John 10/31/24 1146 documented in this encounter [facility] 10-26-2024 Instructions Zainab Robles CNA - 10/26/2024 [...] nearest emergency room. documented in this encounter [facility] 10-09-2024 Note Entered by MILTON MONTOYA DO on October 09, 2024 07:30:49 EST From: TONEY MONTOYA DO To: [place] [address] Sent: 10/09/2024 07:30:49 EST Subject: Medication Management Submitted: Complete:busPIRone (busPIRone 10 mg oral tablet) Signed by TONEY MONTOYA DO 10/09/2024 07:30:00 EST Approved with modifications: busPIRone (busPIRone HCl 10 MG Oral Tablet) Take 1 tablet by mouth twice daily as needed Qty: 60 tab(s) Days Supply: 30 Refills: 2 Substitutions Allowed Route To Pharmacy - [place] [address] From: [place] [address] To: TONEY MONTOYA DO Sent: October 06, 2024 12:01:36 PM CUSTOMER ACCOUNT MANAGER Subject: Medication Management Due: October 07, 2024 12:04:38 AM CUSTOMER ACCOUNT MANAGER On Hold Pending Signature Dispensed Drug: busPIRone (busPIRone 10 mg oral tablet), Take 1 tablet by mouth twice daily as needed Quantity: 60 tab(s) Days Supply: 30 Refills: 0 Substitutions Allowed Notes from Pharmacy: [facility] 09-19-2024 History of Presen t illness [...] mass index (BMI) of 40.0 to 49.9 ([facility]) Papillary thyroid carcinoma ([facility]) 07/2021 Post-surgical hypothyroidism ([facility]) Vitamin D deficiency, unspecified HISTORY PAST MEDICAL HISTORY SOCIAL HISTORY Past Medical History: Diagnosis Date Dietary counseling and surveillance Morbid obesity with body mass index (BMI) of 40.0 to 49.9 (CMS/HCC) Papillary thyroid carcinoma (CMS/HCC) 07/2021 left side Jul 2021, Completion sx November 2021 Post-surgical hypothyroidism ([facility]/HCC) Vitamin D deficiency, unspecified Social History Tobacco [...] nursing note reviewed. Exam conducted with a moving picture operator present. Vitals: Estimated body mass index is [...] Jorge Aguilar DO documented in this encounter [facility] 09-11-2024 History of Presen t illness [...] 08/2022 follow up visit on 08/18/2022 on 200+94=786 mcg daily. no new lab yet. HPI: 01/2022 New patient sent from Dr. Edy Dominguez, the surgeon, with the surgery for her twice in [facility] in [place], first one in left lobe for thyroid [...] not have the pathology report left side. [id number], largest foci 0.8 cm. SUBJECTIVE: MEDICATIONS: Current [...] months (around 12/10/2024). documented in this encounter [facility] 09-07-2024 History of Presen t illness Narrative [facility] [address] [place] [address] Patient: Lauro Pinto Sex: female : 1975 [...] 03/20/2022 Performed by Zeeshan Perry MD at [facility] INJECTION BLOCK NERVE MEDIAL BRANCH Bilat L 4/5,/ Bilateral 02/06/2022 Performed by Zeeshan Perry MD at [facility] INJECTION BLOCK SACROILIAC JOINT Bilateral 08/11/2024 Performed by Zeeshan Perry MD at [facility] INJECTION BLOCK SACROILIAC JOINT Bilateral 07/09/2023 Performed by Zeeshan Perry MD at [facility] INJECTION BLOCK SACROILIAC JOINT Bilateral 08/07/2022 Performed by Zeeshan Perry MD at [facility] INJECTION MEDIAL BRANCH NERVE BLOCK Bialteral L 3/4, 4/5 Medial Branhc Block X 1 Bilateral 05/07/2017 Performed by Zeeshan Perry MD at [facility] INJECTION MEDIAL BRANCH NERVE BLOCK BILATERAL L3/4, 4/5 Bilateral 10/22/2017 Performed by Zeeshan Perry MD at [facility] KNEE ARTHROSCOPY W/ MENISCECTOMY Left 11/2022 OSTEOTOMY KELTON PROCEDURE METATARSAL Right 02/11/2018 Performed by Hector Watson DPM at [facility] RADIOFREQUENCY ABLATION SPINAL left L 4/5, 5/1 Left 05/15/2022 Performed by Zeeshan Perry MD at [facility] RADIOFREQUENCY ABLATION SPINAL right L 4/5,5/1 Right 04/24/2022 Performed by Zeeshan Perry MD at [facility] RADIOFREQUENCY ABLATION SPINAL: right L34 45 rfa Right 03/11/2018 Performed by Zeeshan Perry MD at [facility] SPINE SURGERY 09/06/2009 L5/S1 diskectomy and [...] CNA 09/07/24 1507 documented in this encounter [facility] 08-09-2024 Miscellaneous Notes Pt calls asking [...] procedure. PVU noted documented in this encounter [facility] 08-09-2024 Telephone encounter Note Pt calls [...] if she can proceed with procedure. PVU [facility] 08-09-2024 Telephone encounter Note noted [facility] 07-27-2024 Note [id number] [facility] 07-25-2024 Note [facility] SURGERY Clinical Discharge Summary PERSON INFORMATION Name LAURO PINTO Age 49 Years 1975 Sex FEMALE Language Danish PCP TONEY MONTOYA DO Marital Status Single Med Service Ambulatory Surgery Acct# Arrival 07/25/2024 06:22:59 Visit Reason SURGERY - EGD AND COLONOSCOPY - ANEMIA AND FAMILY HX COLON CANCER Acuity LOS 019 02:30 Address: [address] [place] [address] Comment: PROVIDER INFORMATION VITALS INFORMATION Vital Sign [...] Follow up: With: Address: When: Korey Ford [address] [place] [address], [place] [id number] Business (1) , only if needed With: Address: When: TONEY MONTOYA DIAGNOSIS 1:Microcytic anemia Comment: PHYS DOC NOTES [facility] 07-07-2024 Note Entered by MILTON MONTOYA DO on July 07, 2024 16:49:08 EDT From: TONEY MONTOYA DO To: [id number] Sent: 07/07/2024 16:49:08 EDT Subject: Medication Management Submitted: Complete:amitriptyline (amitriptyline 100 mg oral tablet) Signed by TONEY MONTOYA DO 07/07/2024 16:49:00 EDT Approved with modifications: amitriptyline (Amitriptyline HCl 100 MG Oral Tablet) TAKE 1 TABLET BY MOUTH ONCE DAILY AT BEDTIME Qty: 30 tab(s) Days Supply: 30 Refills: 5 Substitutions Allowed Route To Pharmacy - [facility] From: [place] [id number] To: TOENY MONTOYA DO Sent: July 07, 2024 4:41:06 AM CDT Subject: Medication Management Due: July 08, 2024 12:19:20 AM CDT On Hold Pending Signature Dispensed Drug: amitriptyline (amitriptyline 100 mg oral tablet), TAKE 1 TABLET BY MOUTH ONCE DAILY AT BEDTIME Quantity: 30 tab(s) Days Supply: 30 Refills: 0 Substitutions Allowed Notes from Pharmacy: [facility] 05-29-2024 Miscellaneous Notes Insurance called requesting [...] came back approved. [facility] Telephone encounter Note Insurance called requesting further clinical information regarding procedure that was requested. They stated Case not meeting criteria for requested procedure because: The notes do not show that the previous injection met requirements for 50% and 3 months duration of relief. How do you want to proceed? [facility] 05-29-2024 Telephone encounter Note Chart please [facility] 05-29-2024 Telephone encounter Note Please call pt and ask how much relief she had after SI injection last year. I can do appeal if she had greater than 50%. [facility] Telephone encounter Note Called patient and she reported that 30% was a mistake. She claims she received at least 50% temporary relief. [facility] 05-29-2024 Telephone encounter Note May appeal: [...] that repeat SI injection is medically necessary. [facility] 05-29-2024 Telephone encounter Note Date of service changed for patient. Could not change date of service with insurance so a new authorization needed to be submitted. New auth is pending further medical review. Insurance states The notes do not show Low back pain below L5 without radiculopathy. Clinicals have been submitted. Waiting response from insurance. [facility] 05-29-2024 Telephone encounter Note Auth came back approved. [facility] 05-18-2024 History of Presen t illness Narrative [facility] [address] [place] [address] Patient: Lauro Pinto Sex: female : 1975 [...] 03/20/2022 Performed by Zeeshan Perry MD at [facility] INJECTION BLOCK NERVE MEDIAL BRANCH Bilat L 4/5,5/ Bilateral 02/06/2022 Performed by Zeeshan Perry MD at [facility] INJECTION BLOCK SACROILIAC JOINT Bilateral 07/09/2023 Performed by Zeeshan Perry MD at [facility] INJECTION BLOCK SACROILIAC JOINT Bilateral 08/07/2022 Performed by Zeeshan Perry MD at [facility] MEDIAL BRANCH NERVE BLOCK Bialteral L 3/4, 4/5 Medial Branhc Block X 1 Bilateral 05/07/2017 Performed by Zeeshan Perry MD at [facility] MEDIAL BRANCH NERVE BLOCK BILATERAL L3/4, 4/5 Bilateral 10/22/2017 Performed by Zeeshan Perry MD at [facility] KNEE ARTHROSCOPY W/ MENISCECTOMY Left 11/2022 OSTEOTOMY KELTON PROCEDURE METATARSAL Right 02/11/2018 Performed by Hector Watson DPM at [facility] RADIOFREQUENCY ABLATION SPINAL left L 4/5, 5/ Left 05/15/2022 Performed by Zeeshan Perry MD at [facility] RADIOFREQUENCY ABLATION SPINAL right L 4/5,5/1 Right 04/24/2022 Performed by Zeeshan Perry MD at [facility] RADIOFREQUENCY ABLATION SPINAL: right L34 45 rfa Right 03/11/2018 Performed by Zeehsan Perry MD at [facility] SPINE SURGERY 09/06/2009 L5/S1 diskectomy and [...] John 05/18/24 1340 documented in this encounter [facility] 05-18-2024 Instructions Zainab Robles CNA - 05/18/2024 [...] nearest emergency room. [facility] Note Send Summary: Discharge Summary Providers: Provider RoleProvider Name Edy Morrow Jason [facility], Charles Note Recipients: Toney Montoya MD - [id number] [] Edy Dominguez MD Discharge: Summary: Admission [...] Last Updated: 05-Dec-2021 07:11 by Edy Dominguez) [facility] 12-04-2021 Note PROCEDURE DETAILS Preoperative Diagnosis: Follicular variant papillary thyroid cancer Postoperative Diagnosis: Follicular variant papillary thyroid cancer Surgeon: Edy Dominguez MD Resident/Fellow/Other Install Technician: Alexey Procedure: 1. Completion right thyroidectomy with [...] Last Updated: 04-Dec-2021 09:55 by Edy Dominguez) [facility] 12-04-2021 Note History of Present I llness: /Lactating: Are You no Are You Currently Breastfeedingno History Present Illness: Reason for surgery: Thyroid cancer - completion thyroidectomy HPI: Surgery: Completion Right Thyroidectomy Name: Lauro Pinto ([id number]) Surgeon: Edy Dominguez MD Age: 46 Date [...] the note. I personally evaluated the patient [id number] Electronic Signatures: Modesto Blackburn (Resident)) (Signed 04-Dec-2021 04:52) Authored: History of Present Illness, Allergies, Home Medication Review, Impression/Procedure, ERAS, Physical Exam, Consent, Note Completion Edy Dominguez) (Signed 04-Dec-2021 05:52) Authored: History of Present Illness, Note Completion Co-Signer: History of Present Illness, Allergies, Home Medication Review, Impression/Procedure, ERAS, Physical Exam, Consent, Note Completion Last Updated: 04-Dec-2021 05:52 by Edy Dominguez) [facility] 08-16-2021 Evaluation note Encounter Date Diagnosis Assessment Notes Aug, Cough (ICD-10 - R05.9) Aug, COVID-19 (ICD-10 - U07.1) Drink plenty fluids, get plenty of rest. Continue home medications as prescribed. Use the albuterol inhaler as prescribed as needed for cough or shortness of breath. Follow-up with your family physician if no improvement in 2 to 3 days [employer] Other 11-05-2021 NoteSend Summary: Discharge Summary Providers: [...] Completion Last Updated: 11-Jul-2021 06:09 by Edy Dominguez)[facility] 07-10-2021 NotePROCEDURE DETAILS Preoperative Diagnosis: Left thyroid nodule Postoperative Diagnosis: Left thyroid nodule Surgeon: Edy Dominguez Resident/Fellow/Other Install Technician: Juan Becerra Procedure: 1. Left hemithyroidectomy with [...] was identified, isolated, clipped, and cut. A [place] was placed on the superior pole being [...] recurrent nerve were isolated, clipped, and cut. Hdillon's ligament was released. The vessels medial to [...] than 5 minutes. Electronic Signatures: Juan Becerra ( (Resident)) (Signed 10-Jul-2021 13:40) Authored: Post-Operative Note, Chart Review, Note Completion Edy Dominguez) (Signed 10-Jul-2021 13:54) Authored: Post-Operative Note, Chart Review, Note Completion Co-Signer: Post-Operative Note, Chart Review, Note Completion Last Updated: 10-Jul-2021 13:54 by Edy Dominguez)[facility] 07-10-2021 NoteHistory & Physical Reviewed: /Lactating: Are [...] the note. I personally evaluated the patient [id number] Electronic Signatures: Juan Becerra (Resident)) (Signed 10-Jul-2021 07:14) Authored: History & Physical Reviewed, ERAS, Consent, Note Completion Edy Dominguez) (Signed 10-Jul-2021 08:58) Authored: Note Completion Co-Signer: History & Physical Reviewed, ERAS, Consent, Note Completion Last Updated: 10-Jul-2021 08:58 by Edy Dominguez)[facility] 07-07-2021 History of Present illness Narrative* 46-year-old [...] morning. She has not developed any symptoms EH-Bzjerwkikehagx-Owjxsocb Work Phone: 1(519) 458-983908-29-2021 History of Present illness Narrative* 46-year-old female [...] social alcohol use. She is on disability EW-Gnqfajxxtciydv-Lfoifigy Work Phone: Evaluation noteNo assessment information available [facility] Work Phone: Evaluation note* Diagnosis Lumbosacral spondylosis without myelopathy- Primary documented in this encounter [facility]* Diagnosis Postprocedural hypothyroidism Postsurgical hypothyroidism Malignant neoplasm of thyroid gland (CMS-HCC) Malignant neoplasm of thyroid gland [facility] Diagnosis Postoperative hypothyroidism (CMS/HCC)- Primary Postsurgical hypothyroidism Papillary thyroid carcinoma (CMS/HCC) Vitamin D deficiency Encounter for dietary consultation Class 3 severe obesity due to excess calories without serious comorbidity with body mass index (BMI) of 40.0 to 44.9 in adult ([facility]) documented in this encounter [facility] Healthcare[facility]* Diagnosis Dysfunctional uterine bleeding Other disorder of menstruation and other abnormal bleeding from female genital tract Iron deficiency anemia, unspecified iron deficiency anemia type documented in this encounter [facility] Healthcare[facility]* Diagnosis Disorder of sacrum- Primary Disorders of sacrum Disorder of sacrum- Primary Disorders of sacrum Disorder of sacrum Disorders of sacrum documented in this encounter [facility]* Diagnosis Disorder of sacrum- Primary Disorders of sacrum Disorder of sacrum- Primary Disorders of sacrum Disorder of sacrum Disorders of sacrum documented in this encounter [facility] SystemEvaluation note* Diagnosis Dysfunctional uterine bleeding Other disorder of menstruation and other abnormal bleeding from female genital tract Pre-operative exam Unspecified pre-operative examination documented in this encounter [facility] HealthcareEvaluation note* Diagnosis Lumbar spondylosis- Primary Lumbosacral spondylosis without myelopathy documented in this encounter [facility]* Diagnosis Postoperative hypothyroidism- Primary Postsurgical hypothyroidism Papillary thyroid carcinoma (HCC) Vitamin D deficiency Encounter for dietary consultation Class 3 severe obesity due to excess calories without serious comorbidity with body mass index (BMI) of 40.0 to 44.9 in adult ([facility]-HCC) documented in this encounter [facility]* Diagnosis Disorder of sacrum- Primary Disorders of sacrum Disorder of sacrum- Primary Disorders of sacrum Disorder of sacrum Disorders of sacrum documented in this encounter [facility] SystemEvaluation note* Diagnosis Dysfunctional uterine bleeding Other disorder of menstruation and other abnormal bleeding from female genital tract documented in this encounter [facility]* Diagnosis Pre-op examination Menorrhagia with regular cycle Pelvic pain Dysmenorrhea Dyspareunia in female Well woman exam with routine gynecological exam Routine gynecological examination Breast cancer screening by mammogram documented in this encounter [facility] HealthcareHistory general Narrative - Reported* Type Description Date Medical History heartburn Medical History pulmonary embolism Surgical History tonsillectomy Surgical History umbilical hernia repair Surgical History appendectomy Surgical History tubal ligation Surgical History back surgery x2 Surgical History right foot x5 Hospitalization History see above [employer] Other History of Present illness Narrative* 46-year-old [...] has not noticed any change in symptoms FL-Skyhcnngvbdris-Xbvohfir Work Phone: History of Present illness NarrativePatient presents today after hemithyroidectomy. Final pathology pending. Doing well since her surgery. No issues with voice or irsjjzqedkDS-Zbpxdmkrdzggct-Dbmpvjob Work Phone: History of Present illness NarrativePatient presents today to discuss completion thyroidectomy. 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 She has been doing well and has not had any significant changes. No issues with voice or azxzundebjGZ-Vrihsttarswfdt-Ddrazcxc SJW 250 Work Phone: History of Present illness NarrativePatient presents today for follow up after completion thyroidectomy. Pathology after initial surgery showed multifocal carcinoma. No cancer identified on completion. She has been doing well No issueswith voice or etowrhwxryWL-Sjmuybfgnoarwp-Zbwnlmdn Work Phone: InstructionsNot on filedocumented in this [...] Unknown Advance Directives No Advanced Directives Records Found Advance Directive Response Recorded Date/ Time Advance Directives No November 10 1:38pm Chief Complaint Goiter, thyroid noduleGoiter, thyroid noduleGoiter, thyroid nodulepostopf/u thyroid cancerf/u thyroid cancer Reason for Referral Specialty Diagnoses / Procedures Referred By Contangela t Referred To Contact Diagnoses Disorder of sacrum Procedures Case request operating room: INJECTION BLOCK SACROILIAC JOINT Kyler Carvajal, JOAN [address], [address] [place] [address] Referral ID Status Reason Start Date Expiration Date V isits Requested Visits Authorized [id number] Pending Review 05/18/2024 05/18/2025 1 1 Additional Source Comments INFORMATION SOURCE (unrecogn ized section and content) DATE CREATED AUTHOR 03/02/2018 [facility] DATE CREATED AUTHOR AUTHOR'S ORGANIZ ATION 10/03/2020 [facility] DATE CREATED AUTHOR AUTHOR'S ORGANIZ ATION 12/13/2021 [facility] DATE CREATED AUTHOR AUTHOR'S ORGANIZ ATION 12/21/2021 [facility] DATE CREATED AUTHOR AUTHOR'S ORGANIZ ATION 03/27/2022 [facility] DATE CREATED AUTHOR AUTHOR'S ORGANIZ ATION 11/15/2024 [facility] DATE CREATED AUTHOR AUTHOR'S ORGANIZ ATION 04/15/2025 [facility] DATE CREATED AUTHOR AUTHOR'S ORGANIZ ATION 05/29/2025 [facility] DATE CREATED AUTHOR AUTHOR'S ORGANIZ ATION 05/30/2025 [facility] EPIC REASON FOR VISIT (unrecogniz ed section and [...] July 25, 2024 End: July 25, 2024 Supervisor Orchard Relationship Specialty Start Date End Date Toney Montoya DO PCP - General Family Medicine 09/13/20 Supervisor Orchard Relationship Specialty Start Date End Date Toney Montoya DO PCP - General Family Medicine 09/13/20 Supervisor Orchard Relationship Specialty Start Date End Date Toney Montoya MD [address] [place] [address] PCP - General Family Medicine 08/09/24 Supervisor Orchard Relationship Specialty Start Date End Date Toney Montoya MD [address] [place] [address] PCP - General Family Medicine 08/09/24 Supervisor Orchard Relationship Specialty Start Date End Date Toney Montoya MD [address] [place] [address] PCP - General Family Medicine 08/09/24 Supervisor Orchard Relationship Specialty Start Date End Date Toney Montoya DO [address] [place] [id number] PCP - General Family Medicine 09/13/20 Supervisor Orchard Relationship Specialty Start Date End Date Toney Montoya DO PCP - General Family Medicine 09/13/20 Supervisor Orchard Relationship Specialty Start Date End Date Toney Montoya DO PCP - General Family Medicine 09/13/20 Supervisor Orchard Relationship Specialty Start Date End Date Toney Montoya DO PCP - General Family Medicine 09/13/20 Supervisor Orchard Relationship Specialty Start Date End Date Toney Montoya MD [address] [place] [address] PCP - General Family Medicine 08/09/24 Team Status: Inactive Member Role Status Dates Sofiya Cole MD Primary Care Provider Active Start: November 01, 2024 End: November 01, 2024 Jorge Aguilar DO Attending Provider Active Start : November 01, 2024 End: November 01, 2024 Supervisor Orchard Relationship Specialty Start Date End Date Toney Montoya MD [address] [place] [address] PCP - General Family Medicine 08/09/24 Team Status: Inactive Member Role Status Dates Jorge Aguilar DO Attending Provider Active Start : November 10, 2024 End: November 10, 2024 Supervisor Orchard Relationship Specialty Start Date End Date Toney Montoya DO PCP - General Family Medicine 09/13/20 Supervisor Orchard Relationship Specialty Start Date End Date Toney Montoya MD [address] [place] [address] PCP - General Family Medicine 08/09/24 Supervisor Orchard Relationship Specialty Start Date End Date Toney Montoya MD [address] [facility] [place] [address] PCP - [facility] 08/09/24 Supervisor Orchard Relationship Specialty Start Date End Date Toney Montoya MD [address] [facility] [place] [address] PCP - General [facility] 08/09/24 Supervisor Orchard Relationship Specialty Start Date End Date Toney Montoya MD [address] [facility] [place] [address] PCP - General [facility] 08/09/24 Goals (unrecognized section and content) Goals [...] BASED ON THE PRIMARY CLINICAL RECORDS. [employer] [facility]. provides no warranty or guarantee of the accuracy or completeness of information in this document.
--- NOTE | 2025-05-31 13:50 | US_ITS ---
The [address] [address] Patient Name: LAURO TRAVIS MRN: [id number] date: 1975 Sex: F Assigned Patient Location: US Current Patient Location: Accession/Order Number: [id number] Exam Date: 05/31/2025 13:55 Report Date: 05/31/2025 14:52 At the request of: ISAI QUINN DO Procedure: US pelvis w/ transvaginal Pelvic ultrasound. Reason for exam: Dysfunctional bleeding. Comparison: none Technique: Transabdominal imaging of the uterus and ovaries was performed. Transvaginal imaging of the uterus and ovaries was also obtained. Findings: Uterus measures 9.7 x 3.6 x 4.5 cm. No measurable fibroid. Endometrium measures 8.5 mm without focal abnormality. Right ovary not visualized. Left ovary measures 2.0 x 2.0 x 2.1 cm. No adnexal mass or cyst. No free fluid. US/US pelvis w/ transvaginal Impression: Unremarkable uterus, endometrium and left ovary. Right ovary not visualized. Impression dictated by: Vlad Chamberlain Jr., D.O. 05/31/2025 2:52 PM Dictation Location: [place] [address] Electronically authenticated by: [id number] Y Date: 05/31/2025 14:52
== END 2025-05-31 13:44 | disposition home or self-care (01) ==
LOC: US 13:43
PROVIDERS: PCP Family Medicine; Visit Provider Obstetrics & Gynecology
DX: N93.8 Other specified abnormal uterine and vaginal bleeding (principal)
CPT/HCPCS: 76830; 76856

== ENCOUNTER 2025-06-14 13:24 | Outpatient (OUT) | payer MEDICARE, MEDICAID, SELFPAY ==
--- NOTE | 2025-06-14 13:27 | ECG_ITS ---
The [facility] Test Date: 2025-06-14 Pat Name: LAURO TRAVIS Department: Room: - Gender: Female [employer]: : 1975 Requested By: ISAI QUINN Order Number: [id number] Reading MD: MICHELLE HIDALGO M.D. Measurements Intervals [place] Rate: 61 P: 56 TX: 138 QRS: -18 QRSD: 86 T: 24 QT: 407 QTc: 411 Interpretive Statements SINUS RHYTHM POSSIBLE LEFT ATRIAL ENLARGEMENT [-0.1mV P WAVE IN V1/V2] Abnormal ECG Compared to ECG 11/03/2024 13:58:01 No significant changes Electronically Signed On 06-14-2025 14:08:13 EDT by MICHELLE HIDALGO M.D.
--- OUTSIDE RECORDS SUMMARY | 2025-06-14 13:33 | XMS_ITS | CCD ---
Author Organization [facility] Care Team Providers Care [employer] Driver Name Role Phone MARKER, AMY Admitting Unavailable MARKER, AMY Attending Unavailable SOFIYA COLE Primary Care Unavailabl RUPINDER Roblero Consulting Unavailable MARKER, AMY Consulting Unavailable AMBREEN ZENDEJAS Consulting Unavailable None, No PCP Unavailable Unavailable Unavailable Unavailable Toney Montoya Unavailable Melody Brandon Unavailable Sofiya Cole MD Primary Care Provider [phone] Korey Ford MD Attending Provider Toney Montoya DO Primary Care Provider Toney Montoya MD Primary Care Provider Toney Montoya DO Primary Care Provider Sofiya Cole MD Primary Care Provider Jorge Aguilar DO Attending Provider [phone] Lauren Jorge Admitting Unavailable Jorge Aguilar Attending Unavailable Sofiya Cole Primary Care Unavailable Lauren, Jorge Admitting Unavailable Jose Aguilary Attending Unavailable Korey Ford Admitting Unavailable Korey Ford Attending Unavailable Sofiya Cole Primary Care Unavailable Sofiya Cole MD Primary Care Provider [phone] Jorge Aguilar DO Attending Provider [phone] Toney Montoya DO Primary Care Provider Toney Montoya MD Primary Care Provider JORGE AGUILAR Attending Unavailable KAT, AHMAD F Attending Unavailable LAUREN, JORGE Attending Unavailable LAUREN, JORGE Attending Unavailable KAT, AHMAD F Attending Unavailable KAT, GISELAMAD F Referring Unavailable LAUREN, JORGE Attending Unavailable PERRY, ZEESHAN Renteria Attending Unavailable PERRY, [...] Care Unavailable NIENBERG, KYLER S Attending Unavailable NIENBERG, KYLER S Referring Unavailable HOUSE, TONEY P Primary Care Unavailable HOUSE, TONEY P Primary Care Unavailable Korey Ford Attending Unavailable Korey Ford Admitting Unavailable Korey Ford Attending Unavailable HOUSE, TONEY P Primary Care Unavailable HOUSE, DO TONYE P Admitting Unavailable HOUSE, DO TONEY P Attending Unavailable [...] Facility (1 source) Amoxicillin Drug Allergy itching [facility] Other (1 source) Amoxicillin Drug Allergy 08-16-2021 [facility] Repository Medications Current Medications Medication Drug Class(es) Dates Sig (Normalized) Sig (Original) acetaminophen 500 mg oral tablet (13 sources) take 1 tablet by mouth every six hours as needed for pain acetaminophen (TYLENOL EXTRA STRENGTH) 500 mg tablet Take 1 tablet (500 mg total) by mouth every 6 (six) hours as needed for pain. Active [id number] 200 actuat albuterol 0.09 mg/actuat metered dose [...] Discontinued amitriptyline hydrochloride 100 mg oral tablet (18 sources) Tricyclic Antidepressant Start: 05-14-2024 End: 09-19-2024 [...] calcium carbonate 1250 mg or al tablet (19 sources) Start: 12-05-2021 calcium carbon ate (OS-CHRIS) [...] Vraylar Active cholecalciferol 0.125 mg oral tablet (18 sources) Vitamin D End: 09-19-2024 take 1 tablet by mouth in the morning cholecalciferol, vitamin D3, 5,000 units tablet Take 1 tablet (5,000 Units total) by mouth in the morning. Active citalopram 20 mg oral tablet (20 sources) Serotonin Reuptake Inhibitor Start: 04-26-2024 End: [...] tablet by mouth every six hours dicyclomine (BENTYL) 20 mg tablet Take 1 tablet (20 mg total) by mouth every 6 (six) hours. 08/24/2023 Active ferrous gluconate 324 mg oral tablet (20 sources) Start: 08-07-2024 take 1 tablet by mouth once daily at breakfast ferrous gluconate (FERGON) 324 mg tablet Take 1 tablet (324 mg total) by mouth daily with breakfast. 08/09/2024 Active hydrOXYzine hydrochloride 10 mg oral tablet (2 sources) Antihistamine Start: 01-24-2025 take 1 tablet by [...] Start: 12-05-2021 take 1 tablet by sommer once daily Euthyrox 200 MCG Oral Tablet TAKE 1 TABLET BY MOUTH ONCE DAILY Quantity: 30 Refills: 0 Ordered: 05-Dec-2021 DO Start : 05-Dec-2021 Active End: 05-18-2024 take 1 tablet by mouth in the morning levothyroxine (EUTHYROX) 50 MCG tablet Take 1 tablet (50 mcg total) by mouth in the morning. 05/18/2024 Discontinued (Ineffective) LORazepam 0.5 mg oral tablet (9 sources) Benzodiazepine Start: 02-12-2025 take 1 tablet by mouth in the morning, then take 1 tablet by mouth at bedtime LORazepam (ATIVAN) 0.5 mg tablet Take 1 tablet (0.5 mg total) by mouth in the morning and 1 tablet (0.5 mg total) before bedtime. 02/12/2025 Active meclizine hydrochloride 25 mg oral tablet (16 sources) Antiemetic Start: 09-14-2024 meclizine (Antivert) 25 MG tablet Take 25 mg by mouth as needed in the morning and 25 mg as needed at noon and 25 mg as needed in the evening for dizziness. 09/14/2024 Active meloxicam 7.5 mg oral tablet (20 sources) Nonsteroidal Anti-inflammatory Drug Start: 06-07-2024 take 1 tablet by mouth in the morning meloxicam (MOBIC) 7.5 mg tablet Take 1 tablet (7.5 mg total) by mouth in the morning. 06/07/2024 Active methylPREDNISolone (1 source) Corticosteroid Start: 06-07-2025 methylPREDNISolone (MEDROL, GEMMA,) 4 mg tablet follow package directions 21 tablet 06/07/2025 Active mirtazapine 30 mg oral tablet (20 sources) Start: 06-28-2024 take 1 tablet by mouth at bedtime mirtazapine (Remeron) 30 MG tablet Take 30 mg by mouth at bedtime 06/28/2024 Active omeprazole 40 mg delayed release oral capsule (20 sources) Proton Pump Inhibitor End: 09-19-2024 take 1 capsule by mouth once daily before breakfast omeprazole (PriLOSEC) 40 mg capsule Take 1 capsule (40 mg total) by mouth every morning before breakfast. Active PriLOSEC Active Completed/Discontinued Medications Medication Drug [...] [Vitamin D deficiency, unspecified] 09-11-2024 Chronic Osteoarthritis (13 sources) Osteoarthritis of left knee joint; Translations: [...] Episodic Other nutritional; endocrine; and metabolic disorders (13 sources) Body mass index 40+ - severely obese; Translations: [Body mass index (BMI) 40.0-44.9, adult] Onset: 12-04-2020 12-04-2020 Chronic Other nutritional; endocrine; and metabolic disorders (4 sources) Severe obesity; Translations: [Class 3 severe obesity due to excess calories without serious comorbidity with body mass index (BMI) of 40.0 to 44.9 in adult ([facility])] 09-11-2024 Chronic Other nutritional; endocrine; and metabolic disorders (2 sources) Obesity, unspecified; Translations: [Obesity, unspecified] Onset: 06-19-2024 Chronic Other screening for suspected conditions (not mental disorders or infectious disease) (1 source) Encounter for screening mammogram for malignant neoplasm of breast; Translations: [Encounter for screening mammogram for malignant neoplasm of breast] Onset: 05-30-2025 Episodic Pulmonary heart disease (1 source) Personal history [...] radiculopathy, lumbosacral region] Onset: 04-12-2017 09-07-2024 Chronic Thyroid disorders (20 sources) Nontoxic goiter, unspecified; [...] 08-01-2024 Episodic Joint disorders and dislocations; trauma-related (13 sources) Acute tear of meniscus of left knee; Translations: [Unspecified tear of unspecified meniscus, current injury, left knee, initial encounter] Onset: 11-03-2022 11-03-2022 Episodic Mood disorders (13 sources) Mood disorders Onset: 12-25-2020 12-25-2020 Other lower respiratory disease (1 source) Unspecified acute lower respiratory infection; Translations: [Unspecified acute lower respiratory infection] Onset: 08-14-2024 Episodic Other non-traumatic joint disorders (12 sources) Hip pain; Translations: [Pain in right hip] Onset: 07-18-2018 07-18-2018 Episodic Other non-traumatic joint disorders (1 source) Pain in right hip joint; Translations: [Pain in right hip] Onset: 07-18-2018 07-18-2018 Episodic Other non-traumatic joint disorders (1 source) Knee pain Onset: 10-26-2024 Episodic Spondylosis; intervertebral disc disorders; other back problems (20 sources) Peripheral neuritis; Translations: [Radiculopathy, lumbar region] Onset: 11-19-2021 11-19-2021 Episodic Unclassified (1 source) Cough R05.9 Onset: 08-16-2021 Resolved: 08-16-2021 Viral infection (1 source) COVID-19 Onset: 08-16-2021 Resolved: 08-16-2021 Results Test Name Value Interpretation Reference Range Facility Coding Summaryon 06-11-2025 Coding Summary HTMLBase 64 KyvhexvkRDb9eUh+PGhlYWQ+PE 6FPYSgE43utFJzbI9wI7LXUGgQ FvhyHJDFBXdZTsVijxDpBM2cyN NjZXJu IC8+WH0eVMWqHoydaYWkl6N1rW O0P06crx2gEVdkjTB7DEYjXhQl hhmri2rbtFs2PGpePvtwFzUh FAScwV13UVX8mI85Ug94hNZtxU Syw8qmpNx4HhDmTRYzBHY3uHxe IUmtx2GiJKPwT12cwLNmr5S1 IEFcsZfelMCcDeFsaGL9zR7uCL evtjmrd9todfldZmy1dw47xNLn t7F4yOG1M4WfuwJ2IMAygOSu LxyrhCGYsI0myheos4qptbmzEl JkWNYiKLb5FTu1SYSaoHpxRuQx CS45XNW2VVSxmiSrY6FqPSBv lEkrXpJ6g3H1Aa8ES0NIItftR9 VNTUFSWTwvdGQ+SK79ka59O0Ra DqvzRjh7LBKsDWS7qXR2tQ4f XFRuFRtkk8V9iKE1M3WmgfQyha 2us6psOKOcXCriS44iyZZxf0F2 ZSNsdVM8NCMhvTjrFvOzvY94 Oyc+CVTsiSmmb2HgDpcqc9ywv9 wamWm9WefiVKBxieSwvRmjLPF1 g8YjBg1eLTHwePI5sAW9eZ7h OyWnPzT5RKkqT819TsFcqVOcMe bjE05aX1XuxHM+SPVaOpl0YAUb iKrtYS6uP0PqJMHyjcvclEIh jMhxLT9iQZGdpsoxJZFffI2dRW EhF9q5VbUhSpV9UDuyW9NgNHSg tnruQi58jT5zIwIfMkR1KQlw A4BjdrN3NQMxyNImTYxiZWD3S7 0ui9G3MXWmKPAcURH5aQZ3dZ9a bGlnbjogbGVmdDsgdmVydGlj BHycUVwaX245NHReiDtgXwFdVU luZyBEYXRlOiAgMTAvMDYvMjAy NTwvdGQ+ZPYtRHP4gNbnJOSj uSDoUFvrZl8zqCaioFmiKM6sJQ VblgtyDBTraJ4gSGLbxFVqbGep UF6pBQZlypudo103KkIcPPM7 CMFslTOmL6HoqN6oJaXhSZDtGS YpL5DigJRyZMmkO380GYlcGvA1 JIXubkFfB7HlRKWtlVbyNhC1 v3N3Kg0Yu2HjzxwlJ4ZmpXWhJo MbBkonUVy0C6YbFogchPJ+PC90 DQNhWX65JUf6GIK2sOjdSRdo KFRgL0QxjU9lBbKoZMRhNMYrUk c+PHRhYmxlIHdpZHRoPScxMDAl KzBspTaxJG6qDd6eTYCnBOUf zOyypOWjXyAhn3wkKFDgBYmzAU 9omSzyK9IqdCV0KOBbp2k9Tn74 M76yV2MhjGZ+OQDjrSQ7vPO5 lE0aPmEzAzP2TCmlW542UoFdjP XrZgmht6ljk5ihsSv0VaU4TFXs cxDkxGsyRRC1s4UaBb87E48o IHdpZHRoPSIxNSUiIHZhbGlnbj 8msE3wGu8+TSYoxXK6tOQ8iV9c YcTkOgR7BZzbU087GdPceVZf Sxfzc6rzj1tlrOn3FyDsXZPqxg UzzImbCGJ1h5OyIl34S7CdiDcx p8IpShc9aq11nLDen8K9wWQ4 D4RtCFAqjjshuRNqgPpxYB8sAR SpkvthXHOalA9oORCmW0i6HmDh FzD8KWzvF5GasrE7ZADxeXHb PXHpaCFEdF0bukqbi0zejfehDj SdPVHeRNt5WVn6JGBrpMybAdVn HAS1VgQ2ILA4cYNmeB5ojGso pcyfjJ1fYul+NYK7rSAkdKTQAS 1lOjwvdGQ+ADMgRMY2qOvgFGwc RETovB8lKRDoE4t5IdWiQjC4 INrrC5XywjN7PFPdiHZoRHRhxI KPoR8ibqlzj7ttllmbYrVvNGSg SBv4QCr7WJTmmGxkAxUuSXN3 ExE3PQE9nOBgcS1wkYdyxqwxwR 9wOyc+MhkocSogJDC9JAh2W6Bu Mqe8COCgpGilKX8kuVLhNRli Nf0nzDvgwIdjVS2mVGGawyjev1 65HtRqo7chLEPizPWrVEuhLMH6 S46ob3D9EBEePWGlLTB5gPJ5 lC5joCwzdtbndFDleTthxaSriO cmEIizUKwfP148ZOXmxLwkKoZs NXn8N2QcMky4RRLmdUtaSD5m mUEdVKdeIv3kzMoorJpwGY5fKY Whyvttn548BgNbw2rrLCNvbYCf ASxrPZA6F36og6R2GBXaWIQp LAU3vJP0vN2pfYsjjpxciRDgiA vuvcZzdXlyJFkaLKocK641IQIl vXrmPeQxvJg4J3LyDbo8NDUg uLobZU6qvWDmQYyyKh1fxQltsO cwLP4zDTSufxsji990ByHvz9eh TTCkrXKuFOqgHOW1P75qy1B7 ZGMjHDBwVUR4rZQ7bX4jgPdjrq ogbGVmdDsgdmVydGljYWwtYWxp Y448NUPgpUgeBcLetOrqydGu FLsxCSx1S3XbYavtpOW+PC90YW OrNQ85nZBznMIeg5pxiGq6LwUt TLHnRBE4hLtpAXgzn2SxCJXg L13pdHRmc0D3JFFzvCvofILbXb ZhwZS8kG6wZXkxeocdc7sockmw Awyyq8ivsr31vF40X99tJInz JDXnSNGmIVRiPYOnzEvhti7ldD 9wIi8+XIRdkYL6gTO2gQ0uBSAo NgI3CWnoI059BdQvaGJrLhtt z2jwq2wfzOi9XoE4YRMbqwUvmK blZFJ7f9KgUb57B24iBYqaSPMd WUPaPBJdTGWmmOpexc4swX1r Ii8+YQHskVJ4nXZ8nX8aBnCwEq W4WSehE704HuZooBQwHjzaX71d X4KhkDS+UCPuWgh1NPDkvLzz YG0aoFOyFKedBz3xRTR0EbLnSv MbYLvvF0VnJWXhorompxwgqMX9 UYSmYFVtrN11Cc7svXbdNWFa sQPOtQ3hwwbpt8hsgvypXjXzFO QnFZi9RUe2YWWxaDsqYvJxSCB8 RwT6QZW4xQXciG0tbZghntqs xW6hQ0ClQSLgibhvGs90kA5zEt QmPsS7ZCymXtx+TUFSVElOLCBN NQDNXOvZZAYBNP85MF90nHTk w5K3hCE9I4BpPORdbisfnebmrZ C2FBKvZYNpzA95lTKfEMelOy3b z3U6e366JSCiLTCckH19Jw3h kEmaYNCqtBHNpM2xrilxh8znjb fxZqHbKWKwTQf6GCf4QYBapZeu CkXuQTX3WnF7YYK5pMBlaW6k kFoxlrzbpF1oLtp+MDUvMjEvMT v7LeapzAZ+YEHxVBT9kYmgTXdi DFEfwX6gZBHjB3o6CgBwWpO8 XVjnR5FaQTCprfmnCg14cS7fXy FzAcI2SFhwV9BdykK5PURlnQWd MNfqDHE5A92at0G5BQHbDEJw ZKK0dSG2fY3tvXlftlwxjKAfbR zeecIgqMqzNJrsJYilU981XHPh sMtcFnG6GWlkDHXzAI96VL35 oUZzw9Y5tHN4R7RtBOAyftuyrl bvaEN3MESjPMZznP47zWAiBRct Xp6gf6Q2v548ANFsDZZnoZ11 Sf1ueFiyAPSacMVQiT0cnjzlj2 wscxmrLnQtWJXkHDk0DIj4YXJn iUtaEiLvGQY1ByN3RQT2gHHi cD8upGknqtahoS9vXie+RkVNQU eWQM78YR72hSKgw0I6mZZ2T2Bu XIDjmqeieqpdeNF2SURnGSAk bA90rIVnVLbeFt5ab6V1x870FC DwFIEveJ02Bs9owEnrVOExuFPU hV1fbemtu1lrbdeeFhVvONAe IZq9EFk2VWCfsAdoWtPxBWZ7Cf K6WTI1rVVekD2bfGvcgxzojD8f Oyc+K8N4C8MqZvploIL+PC90 ZTRoNV17xZEnySCgd0hafXo9Yt MpXNNjLGU2dFviCGlcm3JfBBVo C46zbWPof0U6AHStwDzryQWc CoWziWM7lC8oEPaioraak2psns ycBptvo2pves84qN01O30bBDwv OGFfNZSkPXGtNCBzbGrnqj3w yA9hFq8+SUKvlLH3yXB2hQ4hYg XbNpA6BSrfY352WqUimIFyBtkt z2vst8opqOy6UzSuROTvrjNp kFwfKGT2k6AtCf67L78cUQbrSR DbOCVnZVAwFOJhrIngyz9nbK7b Ii8+TE4bh6rwxf76wS05uQS+ NVNzLEK9xAukNDvyQHJryB4zDA kyPjE7YLKiXoDobS35lUMvIXzp Xq5ogWezlUdoEA5nREBogpox i565WfBil1agTWGurGGoMKwhDD Z3V26qq5E5XKZbDMDhRKI8sES0 iN7ygNznbfwgkUEkwTolnqVw dTpuYDuiASjpN696ZPSnmKpoEq RnpFAbU5zmskSMWF0yIwkynWK+ PJMiCKM1cFuvUFotUSEnhZ4q HUPlQ7l1HqBfXfR3ITflT3Xasm S5HSLbdNPyMDVirRBAdY6twmtg u5lxqiueXmMcNTUaRGe7HYt6 QDFxdUtjEnRlEUQ5BkB9ISK8kE JmhD6dmUkafwgsjE5kYzr+RklO OjwvdGQ+OMIdSFJ4mAgaYHsv JRDpmV3lSFDoI3l6KdLwVnR7YR adJ2VetxF5EUOtxJFkOWTamBTP jK5awpudo9iktwowFzTpOABq DCo0IXf6YGEcxNkgXwKiHNZ5Um M7AID7fVWbkR1vaYwxlhubjT1r Oyc+TVJOOjwvdGQ+PHRkIHN0 wGeuXDckOUAurI4dFFXxL0u7Fb YpHpQ3YRbaG9UjdrR4XWXqvGVf IXQacMURoU8fcayfl7pzjqbb RuXnKYEwAGa5GCr3BGAgxDhxXu IlESV9KwG8SFA1yXZxsT8awFtd gxnuzT6dIcu+KFR3PHK8RL24 CN80V7UqFmmxrVItoKU+PHRhYm xlIHdpZHRoPScxMDAlJyBzdHls VV8xZo6kMVUdHLNpnUrmiPOv OiB (more content not included)... Normal [facility] XR SPINE LUMBAR 2 OR 3 VWSon 06-08-2025 XR SPINE LUMBAR 2 OR 3 VWS XR SPINE LUMBAR 2 OR 3 VWS HISTORY: Pain TECHNIQUE: Frontal lateral and spot views of the lumbar spine were obtained. . COMPARISON: 03/20/2019. FINDINGS: Right-sided interpedicular screws are again seen at L5-S1. Metallic cages are seen in the L5-S1 intervertebral disc space. There is increasing disc space narrowing at L4-5 since the prior study. The vertebral body heights and remaining disc spaces are well-maintained. There is no evidence for an acute osseous abnormalities.. IMPRESSION: * Increased displacement at L4-5 * Stable postoperative changes at L5-S1.. Finalized by Ty De Los Santos MD on 06/08/2025 10:19 AM Normal [facility] IGP,APTIMA HPV,AGE GDLNon AGE GDLN ACOG TESTING Note . [facility] Comment on above: TESTS RESULT FLAG UN ITS REF RANGE LAB Clinician Provided Cytology Information Source.............Cervix;Endocervix No. of containers..01 ThinPrep Vial Age Algo ACOG Kyleigh... FLAG LEGEND: L-Low Normal,H-High Normal,LL-Alert Low,HH-Alert High <-Panic Low,>-Panic High,A-Abnormal,AA-Critical Abnormal Performed at: 01 =[address] [place] [address] Salome Li MD, HPV APTIMA Negative Negative [facility] Comment on above: This nucleic acid am plification test detects fourteen high- risk HPV types (16,18,31,33,35,39,45,51,52,56,58,59,66,68) without differentiation. Performed at: =[address] [id number] Eligibility Worker: Salome Li MD, Phone: [phone] Performed at: [address] [id number] Eligibility Worker: Salome Li MD, Phone: [phone] IGP, APTIMA HPV, RFX 16/18,45 Note . [facility] Comment on above: TESTS RESULT FLAG UN ITS REF RANGE LAB DIAGNOSIS: 02 NEGATIVE FOR INTRAEPITHELIAL LESION OR MALIGNANCY. TRICHOMONAS VAGINALIS IS PRESENT. Specimen adequacy: 02 Satisfactory for evaluation. Endocervical and/or squamous metaplastic cells (endocervical component) are present. Performed by: 02 Shayy Mclain [facility] Operations Specialist ([facility]) . 02 Note: Note 02 The Pap smear is a screening test designed to aid in the detection of premalignant and malignant conditions of the uterine cervix. It is not a diagnostic procedure and should not be used as the sole means of detecting cervical cancer. Both false-positive and false-negative reports do occur. Test Methodology: Note 02 This liquid based ThinPrep(R) pap test was screened with the use of an image guided system. HPV Genotype Reflex Note 02 Criteria not met, HPV Genotype not performed. FLAG LEGEND: L-Low Normal,H-High Normal,LL-Alert Low,HH-Alert High <-Panic Low,>-Panic High,A-Abnormal,AA-Critical Abnormal Performed at: [address] [facility] [address] [address] Salome Li MD, BRUSH-SPATULA CERVIX ENDOCERVIX [facility] Rad - Mammography Reporton 0 06-05-2025 Rad - Mammography Report [id number] [facility] Reminder Messageson 06-05-20 Reminder Messages - From: TONEY MONTOYA DO To: [facility] Clinical [place] ([facility]); Sent: 06/04/2025 07:49:47 EDT ! Show up: 06/04/2025 07:49:47 EDT Subject: Results Follow Up Actions: Call the patient with result(s) Due Date/Time: 06/05/2025 07:49:00 EDT Reminder Comments: looks okay Results: Date Result Name Ind Value Ref Range 06/01/2025 12:29 T4 12.11 mcg/dL (6.09 - 12.23) 06/01/2025 12:29 TSH (L) 0.07 mcIU/mL (0.45 - 5.33) Patient notified of results Normal [facility] Rad - Other Radiology Report on 06-04-2025 Rad - Other Radiology Report [id number] [facility] Reminder Messageson 06-04-20 Reminder Messages - From: TONEY MONTOYA DO To: [facility] Clinical [place] ([facility]); Sent: 06/01/2025 14:32:11 EDT ! Show up: 06/01/2025 14:32:11 EDT Subject: Results Follow Up Actions: Call the patient with result(s) Due Date/Time: 06/02/2025 14:32:00 EDT Reminder Comments: looks okay Results: Date Result Name Ind Value Ref Range 06/01/2025 12:29 Sodium Level (L) 133.0 mmol/L (136.0 - 144.0) 06/01/2025 12:29 Potassium Level 4.1 mmol/L (3.6 - 5.1) 06/01/2025 12:29 Chloride Level 102 mmol/L (101 - 111) 06/01/2025 12:29 CO2 22 mmol/L (21 - 32) 06/01/2025 12:29 Anion Gap 13.1 mmol/L (5.0 - 19.0) 06/01/2025 12:29 Glucose Level 85.0 mg/dL (74.0 - 118.0) 06/01/2025 12:29 BUN 15 mg/dL (8 - 26) 06/01/2025 12:29 Creatinine Level 0.79 mg/dL (0.60 - 1.30) 06/01/2025 12:29 BUN/Creat Ratio (H) 18.9 (4.6 - 16.2) 06/01/2025 12:29 eGFR AA >60 mL/min/1.73m2 06/01/2025 12:29 eGFR Non AA >60 mL/min/1.73m2 06/01/2025 12:29 Calcium Level (L) 8.8 mg/dL (8.9 - 10.3) 06/01/2025 12:29 Bili Total 0.7 mg/dL (0.3 - 1.2) 06/01/2025 12:29 Alk Phos 49 IU/L (32 - 91) 06/01/2025 12:29 AST/SGOT 17 IU/L (15 - 41) 06/01/2025 12:29 ALT/SGPT (L) 7.0 IU/L (14.0 - 54.0) 06/01/2025 12:29 Protein Total 6.9 gm/dL (6.5 - 8.1) 06/01/2025 12:29 Albumin Level (L) 3.4 gm/dL (3.5 - 5.0) 06/01/2025 12:29 Globulin 3.5 gm/dL (1.5 - 4.3) 06/01/2025 12:29 A/G Ratio (L) 0.9 (1.4 - 2.6) 06/01/2025 12:29 Osmolality 266 mOsm/L 06/01/2025 12:29 Cholesterol 194.0 mg/dL (66.0 - 200.0) 06/01/2025 12:29 HDL 64 mg/dL (40 - 71) 06/01/2025 12:29 Chol/HDL Ratio 3.0 (0.0 - 4.5) 06/01/2025 12:29 LDL (H) 117 mg/dL (1 - 100) 06/01/2025 12:29 Trig 65.0 mg/dL (0.0 - 150.0) 06/01/2025 12:29 VLDL. 13 mg/dL (5 - 40) 06/01/2025 12:29 WBC 6.9 x103/mcL (3.5 - 10.5) 06/01/2025 12:29 RBC 4.74 x106/mcL (3.70 - 5.30) 06/01/2025 12:29 Hgb 14.0 gm/dL (11.3 - 15.9) 06/01/2025 12:29 Hct (H) 41.6 % (33.7 - 40.4) 06/01/2025 12:29 MCV 88 fL (81 - 100) 06/01/2025 12: MCH 30 pg (24 - 34) 06/01/2025 12:29 MCHC 34 gm/dL (26 - 37) 06/01/2025 12:29 RDW 14.0 % (11.5 - 15.0) 06/01/2025 12:29 Platelet 256 x103/mcL (138 - 427) 06/01/2025 12:29 MPV 9.5 fL (6.3 - 10.2) 06/01/2025 12:29 Auto Neut % 65 % (44 - 88) 06/01/2025 12:29 Auto Lymph % 28 % (14 - 48) 06/01/2025 12:29 Auto [place] % 5 % (1 - 12) 06/01/2025 12:29 Auto Eos % 1.4 % (0.9 - 4.0) 06/01/2025 12:29 Auto Baso % 0.9 % (0.2 - 2.0) 06/01/2025 12:29 Neut Abs# 4.5 x103/mcL (1.5 - 9.2) 06/01/2025 12:29 Lymph Abs# 1.9 x103/mcL (1.3 - 2.9) 06/01/2025 12:29 [place] Abs# 0.3 x103/mcL (0.0 - 0.8) 06/01/2025 12:29 Eos Abs# 0.1 x103/mcL (0.0 - 0.4) 06/01/2025 12:29 Baso Abs# 0.1 x103/mcL (0.0 - 0.2) pt notified Normal [facility] .Auto Diff 06-01-2025 Auto [place] % 5 % Normal -12 [facility] Comment on above: Performed By: #### 1 [id number], [id number], [id number], [id number], 9838865, 8371888 ####[facility] (DEFAULT)[address] [place] [address] Baso Abs# 0.1 x10 Normal 0.0-0.2 [facility] Comment on above: Performed By: #### 1 [id number], 99163978, 96901256, [id number], 9218194, 9152521 ####[facility] (DEFAULT)[address] [place] [address] Basophils/100 WBC (Bld) 0.9 % Normal 0.2-2.0 [facility] Comment on above: Performed By: #### 1 [id number], 47392946, 44612417, [id number], 2088009, 7079452 ####[facility] (DEFAULT)[address] [place] [address] Eos Abs# 0.1 x10 Normal 0.0-0.4 [facility] Comment on above: Performed By: #### 1 [id number], 73087554, 06927029, [id number], 1891480, 9121287 ####[facility] (DEFAULT)[address] [place] [address] Eosinophils/100 WBC (Bld) 1.4 % Normal 0.9-4.0 [facility] Comment on above: Performed By: #### 1 [id number], 90275475, 66585192, [id number], 4330866, 3050653 ####[facility] (DEFAULT)[address] [place] [address] Lymph Abs# 1.9 x10 Normal 1.3-2.9 [facility] Comment on above: Performed By: #### 1 [id number], 46465100, 20064651, 3134486545, 2836890, 3857930 ####[facility] (DEFAULT)[address] [place] [address] Lymphocytes/100 WBC (Bld) 28 % Normal 14-48 [facility] Comment on above: Performed By: #### 1 [id number], 00281110, 05161526, 9038509449, 7842467, 8225483 ####[facility] (DEFAULT)[address] [place] [address] [place] Abs# 0.3 x10 Normal 0.0-0.8 [facility] Comment on above: Performed By: #### 1 [id number], 60378512, 59848923, 7829869502, 4935480, 2834150 ####[facility] (DEFAULT)[address] [place] [address] Neut Abs# 4.5 x10 Normal 1.5-9.2 [facility] Comment on above: Performed By: #### 1 [id number], 54370113, 05853057, 1034346362, 5456334, 0018981 ####[facility] (DEFAULT)[address] [place] [address] Neutrophils/100 WBC (Bld) 65 % Normal 44-88 [facility] Comment on above: Performed By: #### 1 [id number], 94077935, 48136447, 1081054716, 6217195, 2683103 ####[facility] (DEFAULT)[address] [place] [address] CBC w/ Auto Diffon 5 Erythrocyte distribution width (RBC) [Ratio] 14.0 % Normal 11.5-15.0 [facility] Comment on above: Performed By: #### 1 [id number], 88145553, 68058574, 1944669618, 8150915, 9188926 #### [facility] (DEFAULT) [address] [place] [address] Hematocrit (Bld) [Volume fraction] 41.6 % High 33.7-40.4 [facility] Comment on above: Performed By: #### 1 [id number], 51507730, 83193547, 4868514673, 7046259, 7452602 #### [facility] (DEFAULT) [address] [place] [address] Hemoglobin (Bld) [Mass/Vol] 14.0 g/dL Normal 11.3-15.9 [facility] Comment on above: Performed By: #### 1 [id number], 21333704, 62981029, 8650010641, 2976685, 9233756 #### [facility] (DEFAULT) [address] [place] [address] Man Diff? Auto Invalid Interpretation Code [facility] Comment on above: Performed By: #### 1 [id number], 76925160, 96974254, [id number], 7200421, 6089255 #### [facility] (DEFAULT) [address] [place] [address] MCH (RBC) [Entitic mass] 30 pg Normal 24-34 [facility] Comment on above: Performed By: #### 1 [id number], 64944327, 99533470, 8598586841, 2657944, 9065777 #### [facility] (DEFAULT) [address] [place] [address] MCHC (RBC) [Mass/Vol] 34 g/dL Normal 26-37 [facility] Comment on above: Performed By: #### 1 [id number], 62916391, 50229315, 0299150594, 8023041, 3260418 #### [facility] (DEFAULT) [address] [place] [address] MCV (RBC) [Entitic vol] 88 fL Normal 81-100 [facility] Comment on above: Performed By: #### 1 [id number], 50625467, 90623476, 8903643607, 3172577, 9096406 #### [facility] (DEFAULT) [address] [place] [address] Platelet 256 x10 Normal 138-427 [facility] Comment on above: Performed By: #### 1 [id number], 91673917, 57750763, 9351172833, 3241616, 4029437 #### [facility] (DEFAULT) [address] [place] [address] Platelet mean volume (Bld) [Entitic vol] 9.5 fL Normal 6.3-10.2 [facility] Comment on above: Performed By: #### 1 [id number], 43124268, 14542748, 3852235130, 4874528, 0943523 #### [facility] (DEFAULT) [address] [place] [address] RBC 4.74 x10 Normal 3.70-5.30 [facility] Comment on above: Performed By: #### 1 [id number], 20728484, 51095857, 9014605389, 4165233, 9761394 #### [facility] (DEFAULT) [address] [place] [address] WBC 6.9 x10 Normal 3.5-10.5 [facility] Comment on above: Performed By: #### 1 [id number], 59491073, 66068631, 4008464758, 9317563, 4541460 #### [facility] (DEFAULT) [address] [place] [address] CMP Standardon 06-01-2025 eGFR Non AA >60 Invalid Interpretation Code [facility] Comment on above: Performed By: #### 1 [id number], 81946649, 96503047, 5285635115, 2146343, 8467717 ####[facility] (DEFAULT)[address] [place] [address] eGFR AA >60 Invalid Interpretation Code [facility] Comment on above: Performed By: #### 1 [id number], 20858445, 98092802, 6576262026, 7651808, 5235891 ####[facility] (DEFAULT)[address] [place] [address] Albumin [Mass/Vol] 3.4 g/dL Low 3.5-5.0 [facility] Comment on above: Performed By: #### 1 [id number], 99796034, 73002764, 2028633184, 5078359, 1062037 ####[facility] (DEFAULT)[address] [place] [address] Alk Phos 49 IU/L Normal 32-91 [facility] Comment on above: Performed By: #### 1 [id number], 77432477, 41118618, 9696904050, 5530303, 4458746 ####[facility] (DEFAULT)[address] [place] [address] ALT [Catalytic activity/Vol] 7.0 U/L Low 14.0-54.0 [facility] Comment on above: Performed By: #### 1 [id number], 68531532, 25543821, 4897940113, 6424653, 3818789 ####[facility] (DEFAULT)[address] [place] [address] AST [Catalytic activity/Vol] 17 U/L Normal 15-41 [facility] Comment on above: Performed By: #### 1 [id number], 07037163, 29117632, 8469926636, 3262861, 6253441 ####[facility] (DEFAULT)[address] [place] [address] Bili Total 0.7 mg/dL Normal 0.3-1.2 [facility] Comment on above: Performed By: #### 1 419398745, 40753292, 57312740, 1587914649, 6878606, 8599185 ####[facility] (DEFAULT)[address] [place] [address] Calcium [Mass/Vol] 8.8 mg/dL Low 8.9-10.3 [facility] Comment on above: Performed By: #### 1 [id number], 25508841, 99517942, 5449700439, 3100260, 5402962 ####[facility] (DEFAULT)[address] [place] [address]98 Chloride [Moles/Vol] 102 mmol/L Normal 101-111 [facility] Comment on above: Performed By: #### 1 [id number], 93065711, 04625601, 1946357593, 5577516, 6417035 ####[facility] (DEFAULT)[address] [place] [address]606 CO2 [Moles/Vol] 22 mmol/L Normal 21-32 [facility] Comment on above: Performed By: #### 1 [id number], 42162621, 41866677, 1617199645, 1801634, 3814466 ####[facility] (DEFAULT)[address] [place] [address]58 Creatinine [Mass/Vol] 0.79 mg/dL Normal 0.60-1.30 [facility] Comment on above: Performed By: #### 1 [id number], 19947886, 64526936, 4375118369, 2734597, 3035005 ####[facility] (DEFAULT)[address] [place] [address] Glucose [Mass/Vol] 85.0 mg/dL Normal 74.0-118.0 [facility] Comment on above: Performed By: #### 1 [id number], 75580211, 72872939, 4907002661, 9355162, 9446128 ####[facility] (DEFAULT)[address] [place] [address] Potassium [Moles/Vol] 4.1 mmol/L Normal 3.6-5.1 [facility] Comment on above: Performed By: #### 1 897553638, 03029369, 78934676, 7647690596, 5850467, 2343322 ####[facility] (DEFAULT)[address] [place] [address]46 Protein [Mass/Vol] 6.9 g/dL Normal 6.5-8.1 [facility] Comment on above: Performed By: #### 1 124622304, 51038043, 25758901, 2181485002, 6605716, 4840443 ####[facility] (DEFAULT)[address] [place] [address] Sodium [Moles/Vol] 133.0 mmol/L Low 136.0-144 . 0 [facility] Comment on above: Performed By: #### 1 466558814, 29819162, 22488726, 4354128629, 3702256, 2121019 ####[facility] (DEFAULT)[address] [place] [address]1507 Urea nitrogen [Mass/Vol] 15 mg/dL Normal 8-26 [facility] Comment on above: Performed By: #### 1 932449870, 87611134, 90700567, 0248569469, 4089177, 6229541 ####[facility] (DEFAULT)[address] [place] [address] Albumin/Globulin [Mass ratio] 0.9 {ratio} Low 1.4-2.6 [facility] Comment on above: Performed By: #### 1 422721073, 74180088, 11008810, 7343519529, 5026808, 3593358 ####[facility] (DEFAULT)[address] [place] [address] Anion gap [Moles/Vol] 13.1 mmol/L Normal 5.0-19.0 [facility] Comment on above: Performed By: #### 1 517797237, 62407428, 76378766, 1848875855, 8059368, 7312103 ####[facility] (DEFAULT)[address] [place] [address] Globulin (S) [Mass/Vol] 3.5 g/dL Normal 1.5-4.3 [facility] Comment on above: Performed By: #### 1 435702278, 51611835, 55529160, 0544786112, 0952765, 3790720 ####[facility] (DEFAULT)[address] [place] [address] Osmolality 266 mOsm/L Invalid Interpretation Code [facility] Comment on above: Performed By: #### 1 [id number], 65540445, 08441816, 9934732400, 6979358, 4737735 ####[facility] (DEFAULT)[address] [place] [address] 37398 Urea nitrogen/Creatinine [Mass ratio] 18.9 mg/mg High 4.6-16.2 [facility] Comment on above: Performed By: #### 1 [id number], 14954019, 04089362, 0063871211, 5404474, 3851516 ####[facility] (DEFAULT)[address] [place] [address] Lipid Panel Standardon 06-01 Cholesterol [Mass/Vol] 194.0 mg/dL Normal 66.0-200.0 [facility] Comment on above: Performed By: #### 1 066186169, 11461347, 06620629, 5496915238, 5117206, 7247962 ####[facility] (DEFAULT)[address] [place] [address] 98595 Cholesterol in HDL [Mass/Vol] 64 mg/dL Normal 40-71 [facility] Comment on above: Performed By: #### 1 444124085, 20554657, 43055924, 1406572989, 8219853, 0362593 ####[facility] (DEFAULT)[address] [place] [address]1909 Triglyceride [Mass/Vol] 65.0 mg/dL Normal 0.0-150.0 [facility] Comment on above: Performed By: #### 1 666092191, 82168768, 91248091, 0683177128, 8981970, 8195629 ####[facility] (DEFAULT)[address] [place] [address] 80105 Cholesterol in LDL [Mass/Vol] 117 mg/dL High 1-100 [facility] Comment on above: Performed By: #### 1 911715654, 42103313, 46669498, 9914822813, 5227517, 4738953 ####[facility] (DEFAULT)[address] [place] [address] 58053 Cholesterol.total/Cho lesterol in HDL [Mass ratio] 3.0 {ratio} Normal 0.0-4.5 [facility] Comment on above: Performed By: #### 1 189864152, 04280301, 36741160, 8937424585, 8737291, 1909092 ####[facility] (DEFAULT)[address] [place] [address] 87239 VLDL. 13 mg/dL Normal 5-40 [facility] Comment on above: Performed By: #### 1 153603007, 17676413, 88242650, 1829568471, 3877121, 4959669 ####[facility] (DEFAULT)[address] [place] [address] T4, Totalon 06-01-2025 T4 [Mass/Vol] 12.11 ug/dL Normal 6.09-12.23 [facility] Comment on above: Performed By: #### 1 237212005, 86366677, 26125590, 7506899565, 5901318, 1060437 ####[facility] (DEFAULT)[address] [place] [address] 99256 TSHon 06-01-2025 TSH Qn 0.07 m[IU]/L Low 0.45-5.33 [facility] Comment on above: Result Comment: Gene ral Population (males and non- females, aged 21-88) 0.45 - 5.33 Females, 1st Trimester 0.05 - 3.70 Females, 2nd Trimester 0.31 - 4.35 Females, 3rd Trimester 0.41 - 5.18 Performed By: #### 1 [id number], 11764625, 89932180, 9735678307, 8858412, 2252495 ####[facility] (DEFAULT)[address] [place] [address] 93066 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 TECHNIQUE: Bilateral digital tomosynthesis MLO and CC views of the breasts were obtained, with creation of synthetic 2D views. Computer aided detection was utilized. FINDINGS: There are scattered areas of fibroglandular density. Right breast: Mass at the 9:00 position of the right breast at anterior depth 2 cm from the nipple. Mass in the right axilla seen on the MLO projection, likely representing a small lymph node. No suspicious calcifications or architectural distortion. Left breast: Negative for malignancy. IMPRESSION: Right breast mass and right axillary mass. Right breast/axillary ultrasound recommended for further assessment. BI-RADS: BI-RADS 0 - Incomplete. Needs additional imaging evaluation. RECOMMENDATION: Additional imaging required. RISK ASSESSMENT: TC Lifetime risk: 11.03%. The patient's reported personal and family medical history was used calculate their Tyrer-Cuzick lifetime risk of malignancy. Scores less than 20% are not considered high risk per ACR guidelines and patient should continue with the above recommendation. Finalized by Joss Richey MD on 05/31/2025 12:22 PM 0A b ADDITIONAL I Normal [facility] US PELVIS W/ TRANSVAGINALon 05-31-2025 [place] [address] Ultrasound Report Signed Patient: LAURO PINTO MR#: [id number] : 1975 Acct:[id number] Age/Sex: 50 / F ADM Date: 05/31/25 Loc: US Attending Dr: Jorge Aguilar D.O. Ordering Physician: Jorge Aguilar D.O. Date of Service: 05/31/25 Procedure(s): US pelvis w/ transvaginal Accession Number(s): [id number] cc: Jorge Aguilar D.O.; TONEY MONTOYA [place] [address] Patient Name: LAURO PINTO MRN: TBH:[id number] date: 1975 Sex: F Assigned Patient Location: Current Patient Location: Accession/Order Number: [id number] Exam Date: 05/31/2025 13:55 Report Date: 05/31/2025 14:52 At the request of: JORGE AGUILAR DO Procedure: US pelvis w/ transvaginal Pelvic ultrasound. Reason for exam: Dysfunctional bleeding. Comparison: none Technique: Transabdominal imaging of the uterus and ovaries was performed. Transvaginal imaging of the uterus and ovaries was also obtained. Findings: Uterus measures 9.7 x 3.6 x 4.5 cm. No measurable fibroid. Endometrium measures 8.5 mm without focal abnormality. Right ovary not visualized. Left ovary measures 2.0 x 2.0 x 2.1 cm. No adnexal mass or cyst. No free fluid. US/US pelvis w/ transvaginal Impression: Unremarkable uterus, endometrium and left ovary. Right ovary not visualized. Impression dictated by: Vlad Chamberlain Jr., D.O. 05/31/2025 2:52 PM Dictation Location: [place] [address] Electronically authenticated by: [id number] Y Date: 05/31/2025 14:52 Dictated By: Vlad Chamberlain M.D. Signed By: 05/31/25 1455 DD/ 51 TD/TT: Supervisor Compressed Yeast: [facility] Radiology, Radiologduarte pascal MD - 05/31/2025 [place] [address] Ultrasound Report Signed Patient: LAURO PINTO MR#: [id number] : 1975 Acct:[id number] Age/Sex: 50 / F ADM Date: 05/31/25 Loc: US Attending Dr: Jorge Aguilar D.O. Ordering Physician: Jorge Aguilar D.O. Date of Service: 05/31/25 Procedure(s): US pelvis w/ transvaginal Accession Number(s): [id number] cc: Jorge Aguilar D.O.; TONEY MONTOYA [place] [id number] Patient Name: LAURO PINTO MRN: [facility]:[id number] date: 1975 Sex: F Assigned Patient Location: Current Patient Location: US Accession/Order Number: [id number] Exam Date: 05/31/2025 13:55 Report Date: 05/31/2025 14:52 At the request of: JORGE AGUILAR DO Procedure: US pelvis w/ transvaginal Pelvic ultrasound. Reason for exam: Dysfunctional bleeding. Comparison: none Technique: Transabdominal imaging of the uterus and ovaries was performed. Transvaginal imaging of the uterus and ovaries was also obtained. Findings: Uterus measures 9.7 x 3.6 x 4.5 cm. No measurable fibroid. Endometrium measures 8.5 mm without focal abnormality. Right ovary not visualized. Left ovary measures 2.0 x 2.0 x 2.1 cm. No adnexal mass or cyst. No free fluid. US/US pelvis w/ transvaginal Impression: Unremarkable uterus, endometrium and left ovary. Right ovary not visualized. Impression dictated by: Vlad Chamberlain Jr., D.O. 05/31/2025 2:52 PM Dictation Location: [place] [address] Electronically authenticated by: [id number] Y Date: 05/31/2025 14:52 Dictated By: Vlad Chamberlain M.D. Signed By: 05/31/251454 DD/ 51 TD/TT: Supervisor Compressed Yeast: [facility] Radiology Study observation (narrative) [facility] US PELVIS W/ TRANSVAGINALOrd ered By: Radiologist Radiology on 05-31-2025 [facility] Work Phone: Outside Recordson 04-09-2025 Outside Records [id number]#1.00OTGTI FF [facility] Outside Recordson 03-05-2025 Outside Records [id number]#1.00OTGTIFF [facility] Pathology Sendout Teston Pathology Send Out. See Report Normal [facility] Comment on above: Order Comment: SIGMO ID COLON POLYPFAMILY HX COLON CANCER, ANEMIA Performed By: #### 2 [id number] ####[facility] (DEFAULT)[address] [place] [address] Pathology Send Out. See Report Normal [facility] Comment on above: Order Comment: DESCE NDING COLON POLYPFAMILY HX COLON CANCER, ANEMIA Performed By: #### 2 [id number] ####[facility] (DEFAULT)[address] [place] [address] Outside [facility] 11-14-2024 Outside Records [id number]#1.00OTGTI FF [facility] Pathology study report docum entOrdered By: Dunia Beaulieu on 11-13-2024 Pathology study [facility] Other Claudio 11-10-2024 L ------ Specimen: [id number] Received: 11/10/24 Status: WALDO Madsen Num: [id number] Spec Type: Surgical Subm Dr: Jorge Aguilar Tissues: A Endometrial Polyp (ENDOMETRIAL POLYP) Procedures: HE/2, Herson/Va L4 Age/ Patient Sex Location Account Attending Physician Lauro Pinto/F LABELL [id number] Jorge Aguilar SPEC NUM: [id number] RECD: 11/10/24 STATUS: WALDO MADSEN NUM: [id number] MIGUELITO: 11/10/24-1011 SUBM : Jorge Aguilar ENTERED: 11/10/24-[address] [facility] [address]: Ibeth,Lab SPEC TYPE: Surgical DEPT: JORGE KULKARNI ORDERED: HE/2, Gross/Micro L4 ORDERED: HE2, Gross/Micro L4 Pathological Diagnosis Endometrial polyp, polypectomy: [...] submitted in a single cassette. (1, ns, [id number] A) Microscopic Description Microscopic examinations are performed supporting the above interpretation Specimen: [id number] Received: 11/10/24 Status: WALDO Madsen Num: [id number] Spec Type: Surgical Subm Dr: Jorge Aguilar Tissues: A Endometrial Polyp (ENDOMETRIAL POLYP) Procedures: LICHA, Gross/Micro L4 Patient: Lauro Pinto [id number] (Continued) Specimen: [id number] Received: 11/10/24 (Continued) Signed (signature on file) AngelaAntione Beaulieu MD 11/13/24 1608 Specimen: [id number] Received: 11/10/24 Status: WALDO Bradley Num: [id number] Spec Type: Surgical Subm Dr: Jorge Aguilar Tissues: A Endometrial Polyp (ENDOMETRIAL POLYP) Procedures: JADA/Herson Yusuf/Va L4 Patient: Lauro Pinto [id number] (Continued) Specimen: [id number] Received: 11/10/24 (Continued) CPT Codes 07946 Specimen: [id number] Received: 11/10/24 Status: WALDO Madsen Num: [id number] Spec Type: Surgical Subm Dr: Jorge Aguilar Tissues: A Endometrial Polyp (ENDOMETRIAL POLYP) Procedures: Herson HURT/Va L4 Patient: Lauro Pinto [id number] (Continued) Signed (signature on file) Dunia Beaulieu MD 11/13/24 6439 Normal [facility] ECG 12-LEADon 11-05-[address] [address] Electrocardiograph Report Signed Patient: LAURO PINTO MR#: [id number] : 1975 Acct:[id number] Age/Sex: 49 / F ADM Date: 11/03/24 Loc: PST Attending Dr: Jorge Aguilar D.O. Ordering Physician: Jorge Aguilar D.O. 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 Signed By: 11/05/24 0808 DD/ 1358 TD/TT: Supervisor Compressed Yeast: [facility] Radiology, Radiologi MD gwyn - 11/05/2024 [place] [address] Electrocardiograph Report Signed Patient: LAURO PINTO MR#: [id number] : 1975 Acct:[id number] Age/Sex: 49 / F ADM Date: 11/03/24 Loc: PST Attending Dr: Jorge Aguilar D.O. Ordering Physician: Jorge Aguilar D.O. 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 Signed By: 11/05/24 0808 DD/ 1358 TD/TT: Supervisor Compressed Yeast: [facility] ECG 12-LEADOrdered By: Radio logist Radiology on 11-05-2024 [facility] Work Phone: ECG 12-LEADon 11-03-2024 Radiology Study observation (narrative) [facility] HCG ( test) Ql (U)o n 11-01-2024 Interpretation and review of laboratory results Normal [facility] Preg Test, Ur Negative Negative [facility] Claudio 11-01-2024 L ------ Specimen: [id number] Received: 11/02/24-123 Status: WALDO Bradley Num: [id number] Spec Type: Surgical Subm Dr: Jorge Aguilar Tissues: A Endometrium - Biopsy (ENDOMETRIAL BX) Procedures: HE/2, Gross/Micro L4 Age/ Patient Sex Location Account Attending Physician Lauro Pinto 49/F LABELL [id number] Jorge Aguilar SPEC NUM: [id number] RECD: 11/02/24 STATUS: WALDO MADSEN NUM: [id number] MIGUELITO: 11/01/240000 SUBM DR: Jorge Aguilar ENTERED: 11/02/[address]: NEAL TYPE: Surgical DEPT: S ENTERED BY: [id number] RECV BY: [id number] ORDERED: HE/2, Gross/Micro L4 ORDERED: HE/2, Gross/Micro [...] submitted in a single cassette. (1, ns, [id number] A) Microscopic Description Sections examined support the above rendered diagnosis. Specimen: [id number] Received: 11/02/241 Status: WALDO Madsen Num: [id number] Spec Type: Surgical Subm Dr: Jorge Aguilar Tissues: A Endometrium - Biopsy (ENDOMETRIAL BX) Procedures: Herson HURT/Va L4 Patient: Lauro Pinto [id number] (Continued) Signed (signature on file) India Reyes MD 11/03/24 0850 [facility] L ------ Specimen: [id number] Received: 11/02/24-135 Status: WALDO Madsen Num: [id number] Spec Type: Surgical Subm Dr: Jorge Aguilar Tissues: A Endometrium - Biopsy (ENDOMETRIAL BIOPSY) Procedures: HE/2, Gross/Micro L4 Age/ Patient Sex Location Account Attending Physician Lauro Pinto 49/F LABELL [id number] Jorge Aguilar SPEC NUM: [id number] RECD: 11/02/24 STATUS: WALDO MADSEN NUM: [id number] MIGUELITO: 11/01/24-0000 [facility] DR: Jorge Aguilar ENTERED: 11/07/24-[address] [facility] [address]: NEAL TYPE: Surgical DEPT: JORGE KULKARNI ENTERED BY: [id number] RECV BY: [id number] ORDERED: HE/2, Gross/Micro L4 ORDERED: HE/2, Gross/Micro [...] staff Clinical Information Dysfunctional uterine bleeding Specimen: [id number] Received: 11/02/24 Status: WALDO Madsen Num: [id number] Spec Type: Surgical Subm Dr: Jorge Aguilar Tissues: A Endometrium - Biopsy (ENDOMETRIAL BIOPSY) Procedures: HE/2, Gross/Micro L4 Patient: BlairLauro [id number] (Continued) Specimen: [id number] Received: 11/02/24 (Continued) Signed (signature on file) Dunia Beaulieu MD 11/07/24 1928 Specimen: [id number] Received: 11/02/24 Status: WALDO Madsen Num: [id number] Spec Type: Surgical Subm Dr: Jorge Aguilar Tissues: A Endometrium - Biopsy (ENDOMETRIAL BIOPSY) Procedures: HE/2, Gross/Micro L4 Patient: Lauro Pinto [id number] (Continued) Specimen: [id number] Received: 11/02/24 (Continued) Gross Description Part A is received in formalin labeled with the patients name, date of , and EMBx is a pale perez mucoid material, admixed with feathery duarte-pink tissue fragments, 0.8 x 0.3 x 0.1 cm in aggregate. The specimen is filtered and entirely submitted in a single cassette. (1, ns, [id number] A) Microscopic Description Sections examined support the above rendered diagnosis. CPT Codes 37200 Specimen: [id number] Received: 11/02/24 Status: WALDO Jeanyashira Num: [id number] Spec Type: Surgical Subm Dr: Jorge Aguilar Tissues: A Endometrium - Biopsy (ENDOMETRIAL BIOPSY) Procedures: HE/2, Gross/Micro L4 Patient: Lauro Pinto [id number] (Continued) Signed (signature on file) Dunia Beaulieu MD 11/07/241927 Normal [facility] Outside Recordson 10-31-2024 Outside Records [id number]#[facility] Other Radiology Report on 08-15-2024 Rad - Other Radiology Report [id number]#1.00OTGTIFF [facility] XR CHEST 2 VWSon 08-14-2024 XR CHEST 2 VWS XR CHEST 2 VWS XR CHEST 2 VWS INDICATION: Chest cold. FINDINGS: The cardiac silhouette is normal in size. The trachea is midline. No focal pulmonary consolidation. No pleural effusion. No pneumothorax. IMPRESSION: Normal chest x-ray. Finalized by Modesto Montalvo MD on 08/14/2024 4:51 PM Normal [facility] Coding Summaryon 08-02-2024 Coding Summary HTMLBase 64 NccvhzokWWt1aSt+PGhlYWQ+PE 7HSXOpQ59kcQFvjF8mT5MSUVtG KpdtOIGXWUxDRyYjzyKyUI2cbO NjZXJu IC8+TR0sXHDfYolseZGxl8D7jN Y4J45jkp9kFZpjlAJ3WXCaUaWu egdej8fkiXl3AOylFsqrVzVh DBLweL55YAT1cD18Nq22aUVmiE Pvn0qkwRk5PzOuZZLcQQU5lIdj BJhmv0FqALBzX06iuICyb2J5 TCFtgJyuqWMgWjShsWX9aC0hPY liohkee8aslgfgEqq5pb10oJPk g1C7hOY5R5YqcpC1EYJgiVCu XybqrEXUiC1seplsp8sstlqsRw ViOIMnWZh2YSa8JIMwoFzfSjBa CV42XAF7CLYcizXbA0IlASSn wVfcReI0k8J1Ss7KK1NLCyxbY0 VNTUFSWTwvdGQ+KM91cd62Z5Hl CvktWeg9UYPyTUG7xEJ7wH0o GXYiPApdm1J0bVQ1J5YnqgFeqr 4dw8puKVXmTGuhP61veRMke9I5 MPKirZC2USIgoTomCaGmuY12 Oyc+CEVdbYoiy8WjPnucn4mzl0 lexGv5BhoyDDVgwjPbsIhzBSP5 u1UkBc4vTYBmcMX6hXC4pA3a XqAxAtO2MJfnL617IuUnnPKoPm znW69hF2MqgLD+CBTiBec5EESp tPbkGV7fD1JqUEHsqjmqyUNp tSipDS2lMBEncmpzXHRruV0fQJ VlY7c3VuLtYiT6FGetM5XnPHCi biffWe76vV3tJwJsMeR2ZUil A6CfweY8RBTfsWWlMVlcWSY2Y2 5yu6K3JQUyLXVpKQF0dLR6gK0d bGlnbjogbGVmdDsgdmVydGlj XYbfQFhrW426VGJelQjpLgJeQP luZyBEYXRlOiAgMTEvMjcvMjAy NDwvdGQ+IGIwHUE3uAhmHQKh bSXmCPhwPa5ogSlcpYupXF5iIU YgvcjcFZWofL7rCBBhyYMqaXhq OU1wCHAxxilel496UxYoILF5 XDRmqYFjO4JauD3vNkHpQQIgHY KxU7GjiVKyBKozN433IAjgZoU3 JZGktuAtM1BkWALrgPbhFqB7 h0B1Xr2Fe7MihpvkA3VbbHJtKq DzJjqtMBm2A0PqLlqqjUK+PC90 YMRjDH69YJh9LYN5cOhgLUnj MHQaJ4FgaK6vAeNlMIKpPTGsAm c+PHRhYmxlIHdpZHRoPScxMDAl EcGgsOujHS4vOl7uOSZiORXi xZcqyKBtZgIeb4sqQVIpFGpcKB 8neVzfJ6YxcXJ0DYLgc2d7Rn79 S71zQ6BhlFK+XSEvvSJ6dSS9 zB9yZxByAyH5YOzaT963NxXryQ YgTjbgf6lxm9kcyUw4GxS9CZDh zwOunJgvZTP4h8IpNs85S35s IHdpZHRoPSIxNSUiIHZhbGlnbj 3reD7kJq3+WMAbhQR9mZB7xU0q OvBvIzL8XZfxJ402UxNroFMu Nudbx8xpm6dvaJy9KiPaXCInwe EagNncZNM2g1UyUs78J8RzkMqh t4MiCrv3jb47sITvs2H0qRN3 G7ViBZSrdxoihBVxeNhcCI3zWO GxalbiZITxyB6dXJVvQ9t9IkRo OdZ3FLxaJ1VwsbR9YYMzcATg RHDrcYEXcN4zwsvgg4apzmfjFo XuXOJlPKt9IXx0PMYifBrxIxAj CUI2NtY8EKH5uMDmyI5ybUmt kopcrA5hTkf+VRK9iCDmcTYDKF 1lOjwvdGQ+VYOuYBY1zEcfDKfq SBRtiR1jDGJyY1y6CgKfPeT2 TItoQ3ZagyD4BPFmwBVmFHMceJ NSoN0dgxvyg8vdujroIbSuKXBy VCy6YJk4HHCnpUolIfWbGFY3 DbZ6SZS3gIFzdN2vnAygytnvuA 9wOyc+YhnvlPfaRYC8YVv3D6Gl Bll3KXRzxOaqMZ5tkVHvCEqq Fd2hqAcpbTqcRZ9qHWEsztarg4 30ThKnb9olUKAuhCJzJXapFQJ1 L69kj0U2AEVpGHAsMIP0iTH4 pI6ayZgvrnvlwHEhpWpduwItiB yyLIskIAenX100LPWpmTozHfTp ZDr8L6BoSnb6LGQztSxbUY6a kACkTCcxCs6wyVtvxQvpUP9ySJ Fjovuum423WsYoo3arSSXfwBBh SLirEPR0L31ga3T6MZDnMNKb IDD4nAI4nH8fsTgkguupeUWonM diwiFsuRlwVUkjBVaeO735CQRf cAuoMmPhvYj3J8YpNup8ESGu zFpeSW1zdFXxQRoaXq7wmKbqmE puZQ1jOJIgjpftw075SfHhi3xn LZOivBReFZgnCKU0I73fx6H0 BGFkBNWqJZP7yYM0cF2vvJmhjs ogbGVmdDsgdmVydGljYWwtYWxp O771SOYneVxoLzNypYezonBv EUurJTk2Z1IjSgsxzWP+PC90YW DxPF79uCHmrGHkl8yolSq5TrYm ENSmQBV0uMrxGSgkc8PzHLBl N30fxBZqf3S3MRUulRjwmMIdAr PdxGG7vS5rNAioiatrz1mbtupz Lwsdo5ytgx93bW90S75xDFvg DJPtFESlPAIjMHOejUjwgk1vuM 9wIi8+CZPzoHU5qEK0aA5wNJRl ZhC7JDuuZ075GzOvxCSsMgkd p3lte7rsgKb8TnS6FQMdsmVuyE xoXCE2n2OdBp17N50aNWunBMXc JIEnONFlRRXbmFjpvq5xbZ6n Ii8+UBGudCD2rWO7oU1kPhFfKl R6TOvxE199PoWjhDClLresT70h X0IutYE+MBQjYto2NFFroIpw QX3piFVlFXvbBs8sIXB1CvVdFe IvJPgzI7PtEDTqacuccegyuEO2 HSLwSWDqkJ23Zr3jbJvlANDu zZQZwX8cffkou3ywyjuyUyExMK SpLBf5AKm9SOVuwRcjFjRnYQO0 AkZ0XJY5xSCbmT0rcMpljxly tI3iZ3TrSVAczkhvKb41wJ2fAf LaRjS8WDdeWyi+TUFSVElOLCBN USHLVRuJMSTKDW34RU22pUYk y9H0eMH2I8EnRQAgkibfuzuzvG X0BZAqEGRwfK37cICkQFhsDd2d c1Y6v635JMZbRKBvhL51Kk2m dXuwFCVtjHAQwU8qbugho8oupi eeHmOlXXZvIXy1KHg0RTSmeIns SoRbANM2GcF4MOD1tSUdiQ4q iBrbsielpS0jZkp+MDUvMjEvMT g6GuhwcYL+CLCaOQE4sMjrPHwe LCLuxX1dMOPyZ9a5TfCoExO2 GUunC9FhNQLvrkqfVu67vI4eBu KlZjV0NNzzK3HekbO1FBHmaHOx VOicGTM2S09gd6C9DNLeGDXj KLJ9qSL1wA8ltNcagiicrGBauY gyodByxAupUGfpYZkxO184AUJh vJhwXzE8SEqjGHSzGH43QT69 rIRqj1C7gHL5G8QpUYBqlqhtbl onfXN2KJIxKCXshK43kZGtIYim Pa4gw6D4h228RLGxFSNnqU18 Ug4waRaoSKGjvMAMbU3czawla6 rdmmaoKkTqJPCbDIs4SBf8VGSs sZxqNkLfVGC6ZbR0WEW2kRRr nF5rlTciogdjyN3sDjl+RkVNQU vRQW58SV46kLWau7F8fKM1X0Ko SROfbremgqdtrXB5BHGiEMCz eM52oJAhVNbsWs7cd8G9o794QJ WaSFSdgF60Tp3vlShbIWSnfZWY zB1lpeshy1ststzrSjBzHOVf AKo2AYj4JBBseQhhAhDaEUP8Vq Q9SQP5dAWwdX1wrPhhmgtiiJ7s Oyc+GKM5FXF2xyrelke4O3Qb PjwvdHI+SL33CGBcHJ14sYHvhK Vqr0nvxIb1DtKpBVBiKKK1hQip HAoxd2FiTFCdZ66roKOil3D0 EFOxkWcawIQuAoUzsMX5fJ0mKS biykcvc4kdtaldBbstj2dfpn36 hB26L53cEItaYNBkBTAzDMSh DUDepIczwh5csU6hTx8+PGNvbC J9yTT4hZ5oBkFqLyZ1BMdeV769 KhSnoBWhYqbpp5owu1mfhWs2 QwFqRMJslkRxkYzrOAE9m5SySx 59V05oPPyrITPgBMEsJEWjUCOv yWetcv5cvV7pLg4+WK9sa1zi hh83eZ74pSQ+FLQdZTQ6cZfdRF bkTHMoyB6kJTscVhJ3JOBvHbTo aB45lGAhJGmtVu4fyWowoZbl IE9bEIMuzkqlw340IeSfs2twTV RitODiZPxwLJG5W61fx2A1QEXz LZJdLUF3gTP6dJ8fuDqxvptr bGVmdDsgdmVydGljYWwtYWxpZ2 63NWUndFikIrWduSToR4tcgyQH VS4aPxspjUZ+MIToRVL2pVch YWlmFUHpoP3fRPCvV7v3HmQkWf C0QXozB4NofeN0ISOayKIkYASn pBSFjW8pqkgyq5zhaldfTkUp JLHnLZe0JKi3QHMacLvvVtXiUK Y5ClG9RGG0tYDshK1syAuhhcfc lL0kHlh+RklOOjwvdGQ+PHRk ZRM9lAcvMWeaYNBcmF3zRPDdM1 m1JtXxErU6ARdiA9TrbfG2TLWf xBPsJZOoyUOHzL4jjreed4vp hrnaMaSiQWEoJFp9CSn9WKTuuQ yoPwFwENW5MlD4LRU5mRStgT1x bVaspmsflG0sGfz+TVJOOjwv dGQ+JWGlAOK7rWhdNUtkEQSjxZ 3cWLLwK3u3JgPgAkP5YFucV1Cv tbU6DDEsePGpUTYnlXRZaM2c kmtds0kuywoqMyUkEYTuHDh5MS x9XDWgcIkzRhSdCTT0ElL3GUR8 eBUsfS9lmExsqgrgeP6oPya+ WZP0RHR5NA85DI62I6VhCbdvjL FibGU+PHRhYmxlIHdpZHRoPScx TGZbRaZegYkuWT9aUh2iBLEk LWN (more content not included)... Normal [facility] CBC AND AUTO DIFFon 08-01-20 ABSOLUTE BASOPHIL 0.1 X10E9/L Normal 0.0-0.2 [facility] Comment on above: Performed By: #### C BCA #### [facility] ([id number]) [address], [address] [place] [address] ABSOLUTE NEUTROPHIL 5.2 X10E9/L Normal 1.5-6.6 [facility] Comment on above: Performed By: #### C BCA #### [facility] ([id number]) [address], [address] [place] [address] Basophils/100 WBC (Bld) 0.9 % Normal [facility] Comment on above: Performed By: #### C BCA #### [facility] ([id number]) [address], [address] [place] [address] Eosinophils (Bld) [#/Vol] 0.1 10*3/uL Normal 0.0-0.4 [facility] Comment on above: Performed By: #### C BCA #### [facility] ([id number]) [address], [address] [place] [address] Eosinophils/100 WBC (Bld) 1.1 % Normal [facility] Comment on above: Performed By: #### C BCA #### [facility] ([id number]) [address], [address] [place] [address] Erythrocyte distribution width (RBC) [Ratio] 16.9 % High 11.5-15.0 [facility] Comment on above: Performed By: #### C BCA #### [facility] ([id number]) [address], [address] [place] [address] Hematocrit (Bld) [Volume fraction] 28.5 % Low 35-47 [facility] Comment on above: Performed By: #### C BCA #### [facility] ([id number]) [address] [address] [place] [address] Hemoglobin (Bld) [Mass/Vol] 8.6 g/dL Low 11.7-15.5 [facility] Comment on above: Performed By: #### C BCA #### [facility] ([id number]) [address], [address] [place] [address] Lymphocytes (Bld) [#/Vol] 2.0 10*3/uL Normal 1.0-3.5 [facility] Comment on above: Performed By: #### C BCA #### [facility] ([id number]) [address], [address] [place] [address] Lymphocytes/100 WBC (Bld) 25.7 % Normal [facility] Comment on above: Performed By: #### C BCA #### [facility] ([id number]) [address], [address] [place] [address] MCH (RBC) [Entitic mass] 22.1 pg Low 27-34 [facility] Comment on above: Performed By: #### C BCA #### [facility] ([id number]) [address] [address] [place] [address] MCHC (RBC) [Mass/Vol] 30.3 g/dL Low 32-36 [facility] Comment on above: Performed By: #### C BCA #### [facility] ([id number]) [address], [address] [place] [address] MCV (RBC) [Entitic vol] 73 fL Low 80-100 [facility] Comment on above: Performed By: #### C BCA #### [facility] ([id number]) [address], [address] [place] [address] Monocytes (Bld) [#/Vol] 0.4 10*3/uL Normal 0-0.9 [facility] Comment on above: Performed By: #### C BCA #### [facility] ([id number]) [address], [address] [place] [address] Monocytes/100 WBC (Bld) 4.6 % Normal [facility] Comment on above: Performed By: #### C BCA #### [facility] ([id number]) [address], [address] [place] [address] Neutrophils/100 WBC (Bld) 67.7 % Normal [facility] Comment on above: Performed By: #### C BCA #### [facility] ([id number]) [address], [address] [place] [address] Platelet mean volume (Bld) [Entitic vol] 8.8 fL Normal 7-12 [facility] Comment on above: Performed By: #### C BCA #### [facility] ([id number]) [address], [address] [place] [address] Platelets (Bld) [#/Vol] 257 10*3/uL Normal 150-450 [facility] Comment on above: Performed By: #### C BCA #### [facility] ([id number]) [address], [address] [place] [address] RBC COUNT 3.91 X10E12/L Normal 3.80-5.20 [facility] Comment on above: Performed By: #### C BCA #### [facility] ([id number]) [address] [facility], [address] [place] [address] WBC (Bld) [#/Vol] 7.7 10*3/uL Normal 4.0-11.0 [facility] Comment on above: Performed By: #### C BCA #### [facility] ([id number]) [address] [facility] [place] [address] Lab - AP Resultson Lab - AP Results [id number]#1.00[facility] Consent Formson 07-26-2024 Consent Forms [id number]#[address] Provider Orderson 07-26-2024 Provider Orders [id number]#[address] Anesthesia Noteon 07-25-2024 Anesthesia Note Patient: DEBORAH PINTO Age: 49 years Sex: FEMALE : 1975 Associated Diagnoses: None Author: Chilo Abernathy MD Postoperative Information Post Operative Note Health Status Allergies: Allergic Reactions (All) No known allergies Problem list (past medical history): All Problems Anxiety / SNOMED CT 42072500 / Confirmed Arthritis / SNOMED CT 1417312 / Confirmed Asthma / SNOMED CT 527234139 / Confirmed Constipated / SNOMED CT 45536258 / Confirmed Depressed / SNOMED CT 41192214 / Confirmed Thyroid disease / SNOMED CT 78265034 / Confirmed GERD (gastroesophageal reflux disease) / SNOMED CT 633748045 / Confirmed HTN (hypertension) / SNOMED CT 1692501440 / Confirmed Hypothyroid / SNOMED CT 99212007 / Confirmed Insomnia / SNOMED CT 302946439 / Confirmed IBS (irritable bowel syndrome) / SNOMED CT 15363516 / Confirmed Microcytic anemia / SNOMED CT 944061416 / Confirmed Migraine / SNOMED CT 47187616 / Confirmed Rheumatoid arthritis / SNOMED CT 365201404 / Confirmed Physical Examination VS/Measurements Vital Signs (last 24 hrs) Last Charted Temp Temporal L 36.1 DegC (JUL 25 09:35) Heart Rate Monitored 77 bpm (JUL 25:) Resp Rate 18 br/min [...] on: 07/25/2024 13:53 EST] Chilo Abernathy MD [facility] Anesthesia Note Patient: DEBORAH PINTO [...] history): All Problems Anxiety / SNOMED CT 29680852 / Confirmed Arthritis / SNOMED CT 7993624 / Confirmed Asthma / SNOMED CT 544840957 / Confirmed Constipated / SNOMED CT 69185868 / Confirmed Depressed / SNOMED CT 18902501 / Confirmed Thyroid disease / SNOMED CT 43826767 / Confirmed GERD (gastroesophageal reflux disease) / SNOMED CT 637004971 / Confirmed HTN (hypertension) / SNOMED CT 5371015108 / Confirmed Hypothyroid / SNOMED CT 41787621 / Confirmed Insomnia / SNOMED CT 455591082 / Confirmed IBS (irritable bowel syndrome) / SNOMED CT 51227827 / Confirmed Microcytic anemia / SNOMED CT 118069584 / Confirmed Migraine / SNOMED CT 20941645 / Confirmed Rheumatoid arthritis / SNOMED CT 752114204 / Confirmed Histories Family History: Thyroid Sister Anxiety Mother Diabetes mellitus Mother Hypertension Father Mother Arthritis Mother CHF - Congestive heart failure Grandparent Migraine Sister Cancer Grandparent Crohn disease Grandparent Parkinsons disease Grandparent Procedure history: Thyroid (619232317). Knee (158657722). Foot (05887205). Tonsil (504500151). Appendectomy (419554920). Back (694016848). Social History Electronic Cigarette/Vaping Assessment Electronic Cigarette Use: Never. Tobacco Assessment Never tobacco user Tobacco Use:. Home/Environment Assessment Lives with Children. Other Assessment Dr Kat Perry - Lola Watson - Podiatry Dr Toney Montoya - PCP . Social & Psychosocial Habits Home/Environment 08/23/2023 Lives with: Children Other 08/23/2023 Category: Dr Toney Montoya - PCP 08/23/2023 Category: Dr Watson - Podiatry 08/23/2023 Category: Dr Torie Hernadez 08/23/2023 Category: Dr Perry - [facility] 08/23/2023 Category: Dr Kat Nagel Tobacco 08/23/2023 [...] 25:36) Heart Rate Monitored 87 bpm (JUL 25:) Resp Rate 18 br/min (JUL 25) SBP H 138 mmHg (JUL 25:) DBP H 88 mmHg (JUL 25:) Weight 129.7 kg (JUL 25:) Review / Management Laboratory Results Plan [place] [employer]esthesiologists#(ASA) physical status classification: Class III. Anesthetic Preoperative Plan Anesthesia: Monitored anesthesia care, non-triggering, vaporizors removed and machine flushed per protocol . Anesthetic plan, risks, benefits, and alternatives discussed with the patient and/or family. Patient verbalized understanding. [Electronically Signed on: 07/25/2024 09:17 EST] Chilo Abernathy MD [Verified on: 07/25/2024 09:17 EST] Chilo Abernathy MD [facility] Inpatient Patient Summaryon 07-25-2024 [place]patient [place] [address] Patient Discharge Instructions Name: LAURO PINTO Stephanie : 1975 Patient Address: [address] [place] [address] Primary Care Provider: Name: TONEY MONTOYA DO After you are discharged if you find you have any questions, please, call [phone] ext [phone] to speak to a nurse. Discharge Diagnosis: 1:Microcytic anemia Prescription Information: If you have been given a prescription for narcotics, seek immediate medical attention if you have any difficulty breathing or any sudden status changes such as confusion and sleepiness. If you or anyone you know is experiencing suicidal thoughts, mental health, alcohol and/or drug addiction problems; contact the [facility] 29/03 Crisis Hotline -Text 4HOPE to 771435. If you received any narcotics, sedation, or [...] business decisions or sign any legal documents [facility] would like to thank you for allowing us to assist you with your healthcare needs. The following includes patient education materials and information regarding your injury/illness. LAURO PINTO has been given the following list of follow-up instructions, prescriptions, and patient education materials: Follow-up Instructions With: Address: When: Korey Ford [address] [place] [address], [place] [address] Business (1) , only if needed With: [...] After the procedure, (more content not included)... [facility] 07-25-2024 L ------ Specimen: [id number] Received: 07/25/24 Status: WALDO Madsen Num: [id number] Spec Type: Surgical Subm Dr: Korey Ford MD Tissues: A Colon Biopsy (DESCENDING COLON POLYP) B Colon Biopsy (SIGMOID COLON POLYP) Procedures: JADA/Alexx, Herson/Va L4/2 Age/ Patient Sex Location Account Attending Physician Lauro Pinto 49/F [facility] [id number] Korey Ford MD SPEC NUM: [id number] RECD: 07/25/24 STATUS: WALDO MADSEN NUM: [id number] MIGUELITO: 07/25/[address] [facility] [address]: Korey Ford MD ENTERED: 07/25/[address] [facility] [address]: Lucinda,Leighton SPEC TYPE: Surgical DEPT: MAG KULKARNI ENTERED BY: [id number] RECV BY: [id number] ORDERED: HE/4, Gross/Micro L4/2 ORDERED: HE/4, Gross/Micro [...] submitted in a single cassette. (1, ns, [id number] A) JG Part B is received in formalin labeled with the patients name, date of , and sigmoid colon polyp is a duarte-perez, focally erythematous, friable, 0.4 cm polypoid fragment. The specimen is inked black at the apparent point of attachment, bisected, and entirely submitted in a single cassette. (1, ns, [id number] B) JG Specimen: [id number] Received: 07/25/24 Status: WALDO Madsen Num: [id number] Spec Type: Surgical Subm Dr: Korey Ford MD Tissues: A Colon Biopsy (DESCENDING COLON POLYP) B Colon Biopsy (SIGMOID COLON POLYP) Procedures: Herson SARAVIA/Micro L4/2 Patient: Lauro Pinto [id number] (Continued) Specimen: [id number] Received: 07/25/24 (Continued) Signed (signature on file) Brody Jordan MD 07/26/24 1445 Specimen: [id number] Received: 07/25/24 Status: WALDO Madsen Num: [id number] Spec Type: Surgical Subm Dr: Korey Ford MD Tissues: A Colon Biopsy (DESCENDING COLON POLYP) B Colon Biopsy (SIGMOID COLON POLYP) Procedures: Herson SARAVIA/Micro L4/2 Patient: Lauro Pinto [id number] (Continued) Specimen: [id number] Received: 07/25/24 (Continued) CPT Codes 56213z5 Specimen: [id number] Received: 07/25/24 Status: WALDO Madsen Num: [id number] Spec Type: Surgical Subm Dr: Korey Ford MD Tissues: A Colon Biopsy (DESCENDING COLON POLYP) B Colon Biopsy (SIGMOID COLON POLYP) Procedures: HE/4, Gross/Micro L4/2 Patient: Lauro Pinto [id number] (Continued) Signed (signature on file) Brody Jordan MD 07/26/24 1445 [facility] MAGR Intraoperative Recordon 07-25-2024 MAGR Intraoperative Record MAGR Intra-Op Record Summary Primary Physician: Korey Ford MD Finalized Date/Time: 07/25/24 12:59:58 Pt. Name: LAURO PINTO Stephanie /Sex: 1975 FEMALE Med Rec #: [id number] Physician: Korey Ford MD Financial #: [id number] Pt. Type: D Room/Bed: / Admit/Disch: 07/25/24 [...] Role Performed Surgeon - Primary Anesthesiologist of Steel Shot Header Operator Record Time In 07/25/24 09:01:00 07/25/24 09:01:00 07/25/24 09:01:00 Time Out 07/25/24 09:31:00 07/25/24 09:31:00 07/25/24 09:31:00 Procedure Esophagogastroduodenosco Esophagogastroduodenosco Esophagogastroduodenosco py and Colonosco py and Colonosco py and Colonosco Last Modified By: Isabel Martinez RN, Erica RN Baumer, Erica RN 07/25/24 09:37:34 07/25/24 09:37:34 07/25/24 09:37:34 Entry 4 Entry 5 Case Attendee Awilda Castillo CSFA Lianna Box PLUMBING INSPECTOR PLUMBING INSPECTOR CSFA Role Performed Scrub Personnel Auger Press Operator Time In 07/25/24 09:01:00 07/25/24 09:01:00 Time [...] Abernathy MD, Isabel Martinez RN, Lianna Box PLUMBING INSPECTOR CSFA, Awilda Castillo CSFA PLUMBING INSPECTOR Last Modified By: Isabel Martinez RN 07/25/24 [...] Met (O.80 (more content not included)... Normal [facility] MAGR Postoperative Recordon 07-25-2024 MAGR Postoperative Record MAGR Phase II Record Summary Primary Physician: Korey Ford MD Finalized Date/Time: 07/25/24 10:30:12 Pt. Name: LAURO PINTO/Sex: 1975 FEMALE Med Rec #: [id number] Physician: Korey Ford MD Financial #: [id number] Pt. Type: D Room/Bed: / Admit/Disch: 07/25/24 [...] Signed By: Jumana Herbert RN 07/25/24 10:30 [facility] Preoperative Record MAGR Pre-Op Record Summary Primary Physician: Korey Ford MD Finalized Date/Time: 07/25/24 09:05:27 Pt. Name: LAURO PINTO Stephanie Hernandez/Sex: 1975 FEMALE Med Rec #: [id number] Physician: Korey Ford MD Financial #: [id number] Pt. Type: D Room/Bed: / Admit/Disch: 07/25/24 [...] Signed By: Isabel Martinez RN 07/25/24 09:05 [facility] Patient Handouton 07-25-2024 Patient Handout [...] that are easy to digest. ? Take oyho-rnz-hhvecxj and prescription medicines only as told by [...] provider. Document Revised: 10/05/2023 Document Reviewed: 04/15/2022 Elsevier Patient Education ? 2023 [employer] [facility] Test Urine 1on U Preg Negative [facility] Comment on above: Performed By: #### 3 [id number] ####[facility] (DEFAULT)[address] [place] [address] U Preg Internal Control Pass [facility] Comment on above: Performed By: #### 3 [id number] ####[facility] (DEFAULT)[address] [place] [address] Progress Note - Nurseon 07-07 Progress Note - Nurse Retail Experience Specialist spoke with pt and pt stated that she has a family hx of malignant hyperthermia. Per pt her moms sister had an issue. Pt put chart writer on a 3 way call with pts mom. Per pts mom her sister had to be packed in ice and pts younger sister also had an issue. After speaking with pt and pts mom chart writer let Dr Abernathy know the above details. [Electronically Signed on: 07/24/2024 11:38 EST] Jumana Herbert RN [Verified on: 07/24/2024 11:38 EST] Jumana Herbert RN [facility] Lab - Other Lab [facility] Lab - Other Lab Results [id number]#[id number] F [facility] CBC AND AUTO DIFFon 06-22-20 24 ABSOLUTE BASOPHIL 0.0 X10E9/L Normal 0.0-0.2 [facility] Comment on above: Performed By: #### 2 4331-1, THYR, CMP, CBCA #### [facility] ([id number]) [address], [address] [place] [address] ABSOLUTE NEUTROPHIL 5.6 X10E9/L Normal 1.5-6.6 [facility] Comment on above: Performed By: #### 2 4331-1, THYR, CMP, CBCA #### [facility] ([id number]) [address], [facility] [address] [place] [address] Basophils/100 WBC (Bld) 0.5 % Normal [facility] Comment on above: Performed By: #### 2 4331-1, THYR, CMP, CBCA #### [facility] ([id number]) [address] [address] [place] [address] Eosinophils (Bld) [#/Vol] 0.1 10*3/uL Normal 0.0-0.4 [facility] Comment on above: Performed By: #### 2 4331-1, THYR, CMP, CBCA #### [facility] ([id number]) [address] [address] [place] [address] Eosinophils/100 WBC (Bld) 0.9 % Normal [facility] Comment on above: Performed By: #### 2 4331-1, THYR, CMP, CBCA #### [facility] ([id number]) [address] [address] [place] [address] Erythrocyte distribution width (RBC) [Ratio] 16.8 % High 11.5-15.0 [facility] Comment on above: Performed By: #### 2 4331-1, THYR, CMP, CBCA #### [facility] ([id number]) [address] [address] [place] [address] Hematocrit (Bld) [Volume fraction] 28.9 % Low 35-47 [facility] Comment on above: Performed By: #### 2 4331-1, THYR, CMP, CBCA #### [facility] ([id number]) [address], [address] [place] [address] Hemoglobin (Bld) [Mass/Vol] 8.8 g/dL Low 11.7-15.5 [facility] Comment on above: Performed By: #### 2 4331-1, THYR, CMP, CBCA #### [facility] ([id number]) [address], [facility] [address] [place] [address] Lymphocytes (Bld) [#/Vol] 1.7 10*3/uL Normal 1.0-3.5 [facility] Comment on above: Performed By: #### 2 4331-1, THYR, CMP, CBCA #### [facility] ([id number]) [address] [address] [place] [address] Lymphocytes/100 WBC (Bld) 22.0 % Normal [facility] Comment on above: Performed By: #### 2 4331-1, THYR, CMP, CBCA #### [facility] ([id number]) [address] [place] [address] MCH (RBC) [Entitic mass] 22.2 pg Low 27-34 [facility] Comment on above: Performed By: #### 2 4331-1, THYR, CMP, CBCA #### [facility] ([id number]) [address] [place] [address] MCHC (RBC) [Mass/Vol] 30.4 g/dL Low 32-36 [facility] Comment on above: Performed By: #### 2 4331-1, THYR, CMP, CBCA #### [facility] ([id number]) [address], [address] [place] [address] MCV (RBC) [Entitic vol] 73 fL Low 80-100 [facility] Comment on above: Performed By: #### 2 4331-1, THYR, CMP, CBCA #### [facility] ([id number]) [address] [address] [place] [address] Monocytes (Bld) [#/Vol] 0.4 10*3/uL Normal 0-0.9 [facility] Comment on above: Performed By: #### 2 4331-1, THYR, CMP, CBCA #### [facility] ([id number]) [address] [address] [place] [address] Monocytes/100 WBC (Bld) 4.9 % Normal [facility] Comment on above: Performed By: #### 2 4331-1, THYR, CMP, CBCA #### [facility] ([id number]) [address] [address] [place] [address] Neutrophils/100 WBC (Bld) 71.7 % Normal [facility] Comment on above: Performed By: #### 2 4331-1, THYR, CMP, CBCA #### [facility] ([id number]) [address] [address] [place] [address] Platelet mean volume (Bld) [Entitic vol] 8.9 fL Normal 7-12 [facility] Comment on above: Performed By: #### 2 4331-1, THYR, CMP, CBCA #### [facility] ([id number]) [address] [address] [place] [address] Platelets (Bld) [#/Vol] 316 10*3/uL Normal 150-450 [facility] Comment on above: Performed By: #### 2 4331-1, THYR, CMP, CBCA #### [facility] ([id number]) [address] [address] [place] [address] RBC COUNT 3.96 X10E12/L Normal 3.80-5.20 [facility] Comment on above: Performed By: #### 2 4331-1, THYR, CMP, CBCA #### [facility] ([id number]) [address] [facility] [address] [place] [address] WBC (Bld) [#/Vol] 7.8 10*3/uL Normal 4.0-11.0 [facility] Comment on above: Performed By: #### 2 4331-1, THYR, CMP, CBCA #### [facility] ([id number]) [address], [address] [place] [address] COMPREHENSIVE METABOLIC PANE Claudio 06-22-2024 Albumin [Mass/Vol] 3.7 g/dL Normal 3.2-5.3 [facility] Comment on above: Performed By: #### 2 4331-1, THYR, CMP, CBCA #### [facility] ([id number]) [address] [address] [place] [address] ALP [Catalytic activity/Vol] 50 U/L Normal 39-130 [facility] Comment on above: Performed By: #### 2 4331-1, THYR, CMP, CBCA #### [facility] ([id number]) [address], [facility] [address] [place] [address] ALT [Catalytic activity/Vol] 4 U/L Normal 0-31 [facility] Comment on above: Performed By: #### 2 4331-1, THYR, CMP, CBCA #### [facility] ([id number]) [address] [facility] [address] [place], [place] [address] Anion gap [Moles/Vol] 9 mmol/L Normal 5-15 [facility] Comment on above: Performed By: #### 2 4331-1, THYR, CMP, CBCA #### [facility] ([id number]) [address], [facility] [address] [place] [address] AST [Catalytic activity/Vol] 14 U/L Normal 0-41 [facility] Comment on above: Performed By: #### 2 4331-1, THYR, CMP, CBCA #### [facility] ([id number]) [address] [address] [place] [address] Bilirubin [Mass/Vol] 0.5 mg/dL Normal 0.3-1.2 [facility] Comment on above: Performed By: #### 2 4331-1, THYR, CMP, CBCA #### [facility] ([id number]) [address] [address] [place] [address] Calcium [Mass/Vol] 9.1 mg/dL Normal 8.5-10.5 [facility] Comment on above: Performed By: #### 2 4331-1, THYR, CMP, CBCA #### [facility] ([id number]) [address] [address] [place] [address] Chloride [Moles/Vol] 102 mmol/L Normal 98-109 [facility] Comment on above: Performed By: #### 2 4331-1, THYR, CMP, CBCA #### [facility] ([id number]) [address] [address] [place] [address] CO2 [Moles/Vol] 26 mmol/L Normal 22-32 [facility] Comment on above: Performed By: #### 2 4331-1, THYR, CMP, CBCA #### [facility] ([id number]) [address] [address] [place] [address] Creatinine [Mass/Vol] 0.81 mg/dL Normal 0.40-1.00 [facility] Comment on above: Result Comment: METH OD TRACEABLE TO IDMS STANDARD Performed By: #### 2 4331-1, THYR, CMP, CBCA #### [facility] ([id number]) [address] [address] [place] [address] GFR/1.73 sq M.predicted among non-blacks MDRD (S/P/Bld) [Vol rate/Area] 89 mL/min/{1.73_m2} Normal >59 [facility] Comment on above: Result Comment: Reported eGFR is based on the CKD-EPI 2020 equation that does not use a race coefficient. Performed By: #### 2 4331-1, THYR, CMP, CBCA #### [facility] ([id number]) [address] [address] [place] [address] Glucose [Mass/Vol] 84 mg/dL Normal 65-99 [facility] Comment on above: Performed By: #### 2 4331-1, THYR, CMP, CBCA #### [facility] ([id number]) [address] [address] [place] [address] Potassium [Moles/Vol] 4.3 mmol/L Normal 3.5-5.0 [facility] Comment on above: Performed By: #### 2 4331-1, THYR, CMP, CBCA #### [facility] ([id number]) [address], [address] [place] [address] Protein [Mass/Vol] 6.8 g/dL Normal 6.0-8.0 [facility] Comment on above: Performed By: #### 2 4331-1, THYR, CMP, CBCA #### [facility] ([id number]) [address] [address] [place] [address] Sodium [Moles/Vol] 137 mmol/L Normal 134-146 [facility] Comment on above: Performed By: #### 2 4331-1, THYR, CMP, CBCA #### [facility] ([id number]) [address] [address] [place] [address] Urea nitrogen [Mass/Vol] 11 mg/dL Normal 5-23 [facility] Comment on above: Performed By: #### 2 4331-1, THYR, CMP, CBCA #### [facility] ([id number]) [address], [address] [place] [address] Lipid 1996 panelon 4 Cholesterol [Mass/Vol] 162 mg/dL Normal 150-200 [facility] Comment on above: Performed By: #### 2 4331-1, THYR, CMP, CBCA #### [facility] ([id number]) [address], [address] [place] [address] Cholesterol in HDL [Mass/Vol] 75 mg/dL Normal >39 [facility] Comment on above: Result Comment: HDL <40 mg/dL - High Risk HDL > or = 40mg/dL- Desirable HDL >60 mg/dL - Negative Risk Performed By: #### 2 4331-1, THYR, CMP, CBCA #### [facility] ([id number]) [address], [address] [place] [address] Cholesterol in LDL [Mass/Vol] 71 mg/dL Normal <130 [facility] Comment on above: Result Comment: LDL <100 mg/dL - Desirable LDL >160 mg/dL - High Risk Performed By: #### 2 4331-1, THYR, CMP, CBCA #### [facility] ([id number]) [address], [address] [place] [address] Cholesterol in VLDL [Mass/Vol] 16 mg/dL Normal 0-30 [facility] Comment on above: Performed By: #### 2 4331-1, THYR, CMP, CBCA #### [facility] ([id number]) [address], [address] [place] [address] CHOLESTEROL:HDL 2.2 Normal 1.0-5.0 [facility] Comment on above: Performed By: #### 2 4331-1, THYR, CMP, CBCA #### [facility] ([id number]) [address], [address] [place] [address] Triglyceride [Mass/Vol] 81 mg/dL Normal 27-150 [facility] Comment on above: Performed By: #### 2 4331-1, THYR, CMP, CBCA #### [facility] ([id number]) [address], [address] [place] [address] THYROID PROFILEon 06-22-2024 Free T4 [Mass/Vol] 1.62 ng/dL High 0.61-1.60 [facility] Comment on above: Performed By: #### 2 4331-1, THYR, CMP, CBCA #### [facility] ([id number]) [address], [address] [place] [address] TSH 0.02 uIU/mL Low 0.49-4.67 [facility] Comment on above: Performed By: #### 2 4331-1, THYR, CMP, CBCA #### [facility] ([id number]) [address], [address] [place] [address] Established Visit (Otolaryng ology)on 03-23-2022 Established Visit [...] -advised her to establish care with local movement therapist to discuss BOB. They may just decide [...] DAILY Vitals Vital Signs Recorded: 19Dec2021 04:25PM Nexoifxuihh89.8 F Height6 ft 1 in Zutter688 lb 9.6 oz BMI Jzftivnmtl41.33 kg/m2 BSA Calculated2.71 Tobacco Useb) No Fall [...] intact. Neck incision healing well Results/Data Surgical [id number] 09:52AMEdy Dominguez [Dec 18, 2021 4:12PM Edy Dominguez] f/u 12/19 Test NameResultFlagReference Case Surgical Pathology(Report) Name LAURO PINTO Pathologist: LILLI AMAYA ASA, MD, PhD Date of Procedure: 12/04/2021 Date Received: 12/04/2021 Date Reported 12/10/2021 Submitting Physician: EDY DOMINGUEZ MD Location: [facility] Other External # FINAL DIAGNOSIS A. RIGHT [...] in toto superior to inferior AMD amd/12/06/2021 [facility] Department of Pathology [address] [place] [address] Procedure 'Scores and Scales' Signatures Electronically signed by : Edy Dominguez MD; Dec 19 2021 7:05PM EST (Author) Normal [facility] Tobacco Screening.on 022 Fall risk assessment a) No falls within the last year [facility] Work Phone: Tobacco use status [facility] b) No [place]-Otolaryngo [facility] Work Phone: Daily Progress Note-ENTon Daily Progress [...] provided Objective Data: Objective Information: T PRBPMAPSpO2 [id number]/777773% Date/Time12/05 4: 4: 4: 4: 17:004 4:00 Range(36.2C - [...] 2021 10:00 pm000 Dec 04, 2021 2:00 [id number] The Intake and Output Totals for the last 24 hours are: IntakeOutputNet [id number] Recent Lab Results: Results: RFP: 12/04/2021 11:09 [...] Updated: 05-Dec-2021 07:10 by Edy Dominguez) Normal [facility] MAGNESIUMon 12-05-2021 Magnesium [Mass/Vol] 1.80 mg/dL Normal 1.60 - 2.40 [facility] Comment on above: Performed By: #### M G #### [facility] [address] [facility] [place] [place] [address] Magnesium, Serumon Magnesium [Mass/Vol] 1.80 mg/dL See Below MG-O tolaryngo [facility] Work Phone: Comment on above: Reference Range: 1.6 0 - 2.40 PARATHYROID HORMONE,INTACTon 12-05-2021 PARATHYROID HORMONE,INTACT 77.2 pg/mL Normal 12.0 - 88.0 [facility] Comment on above: Performed By: #### P TH #### [address] [place] [address] Parathormone Intact, Serumon 12-05-2021 Parathyrin.intact [Mass/Vol] 77.2 pg/mL See Below -[facility]o [facility] Work Phone: Comment on above: Reference Range: 12. 0 - 88.0 RENAL FUNCTION PANELon 12-05 Albumin [Mass/Vol] 3.4 g/dL Normal 3.4 - 5.0 [facility] Comment on above: Performed By: #### R ENAL #### [address] [address] Anion gap [Moles/Vol] 11 mmol/L Normal 10 - 20 [facility] Comment on above: Performed By: #### R ENAL #### [address] [address] Calcium [Mass/Vol] 8.5 mg/dL Low 8.6 - 10.3 [facility] Comment on above: Performed By: #### R ENAL #### [address] [address] Chloride [Moles/Vol] 105 mmol/L Normal 98 - 107 [facility] Comment on above: Performed By: #### R ENAL #### [address] [address] Creatinine [Mass/Vol] 0.77 mg/dL Normal 0.50 - 1.05 [facility] Comment on above: Performed By: #### R ENAL #### [address] [address] eGFR FEMALE >90 Normal >90 [facility] Comment on above: Result Comment: CALC ULATIONS OF ESTIMATED GFR ARE PERFORMED USING THE 2020 CKD-EPI STUDY REFIT EQUATION WITHOUT THE RACE VARIABLE FOR THE IDMS-TRACEABLE CREATININE METHODS. https://jasn.asnjournals.org/content//ASN.680824 6531 Performed By: #### R ENAL #### [address] [address] Glucose [Mass/Vol] 123 mg/dL High 74 - 99 [facility] Comment on above: Performed By: #### R ENAL #### [address] [address] HCO3 (Bld) [Moles/Vol] 25 mmol/L Normal 21 - 32 [facility] Comment on above: Performed By: #### R ENAL #### [address] [address] Phosphate [Mass/Vol] 3.6 mg/dL Normal 2.5 - 4.9 [facility] Comment on above: Result Comment: The performance characteristics of phosphorus testing in heparinized plasma have been validated by the individual laboratory site where testing is performed. Testing on heparinized plasma is not approved by the FDA; however, such approval is not necessary. Performed By: #### R ENAL #### [address] [address] Potassium [Moles/Vol] 4.4 mmol/L Normal 3.5 - 5.3 [facility] Comment on above: Performed By: #### R ENAL #### [address] [address] Sodium [Moles/Vol] 137 mmol/L Normal 136 - 145 [facility] Comment on above: Performed By: #### R ENAL #### [address] [address] Urea nitrogen [Mass/Vol] 17 mg/dL Normal 6 - 23 [facility] Comment on above: Performed By: #### R ENAL #### [address] [address] Renal Function Panelon 12-05 Albumin BCP dye [Mass/Vol] 3.4 g/dL 3.4 - 5.0 [facility] Work Phone: [phone] Anion gap [Moles/Vol] 11 mmol/L 10 - 20 [facility] Work Phone: Calcium [Mass/Vol] 8.5 mg/dL below low threshold 8.6 - 10.3 [facility] Work Phone: Chloride [Moles/Vol] 105 mmol/L 98 - 107 [facility]o [facility] Work Phone: CO2 [Moles/Vol] 25 mmol/L 21 - 32 [facility]Otolar yngo [facility] Work Phone: [phone] Creatinine [Mass/Vol] 0.77 mg/dL See Below [facility] Work Phone: Comment on above: Reference Range: 0.5 0 - 1.05 Glucose [Mass/Vol] 123 mg/dL above high threshold 74 - 99 [facility] Work Phone: [phone] Phosphate [Mass/Vol] 3.6 mg/dL 2.5 - 4.9 [facility] Work Phone: [phone] Comment on above: The performance ya acteristics of phosphorus testing in heparinized plasma have been validated by the individual laboratory site where testing is performed. Testing on heparinized plasma is not approved by the FDA; however, such approval is not necessary. Potassium [Moles/Vol] 4.4 mmol/L 3.5 - 5.3 [facility] Work Phone: Sodium [Moles/Vol] 137 mmol/L 136 - 145 [facility]eferino laryngo [facility] Work Phone: Urea nitrogen [Mass/Vol] 17 mg/dL 6 - 23 [facility] Work Phone: Renal Function Panel >90 >90 [facility] Work Phone: Comment on above: CALCULATIONS OF ROSALIA MATED GFR ARE PERFORMED USING THE 2020 CKD-EPI STUDY REFIT EQUATION WITHOUT THE RACE VARIABLE FOR THE IDMS-TRACEABLE CREATININE METHODS.https://jasn.asnjournals.org/content/early/ N.8490856494 Admission Risk Screen - Adul ton 12-04-2021 Admission Risk Screen - Adult Allergies: Allergies: Succinylcholine Chloride: Unknown (Severe) Patient Verification: New W ID Band Applied in my Departmentno Type of ID Patient is WearingW wristband, but not applied here Patient Transferred from Other Facility ([facility], [facility],etc)no Patient Identity Verified [...] AlertFor Ebola-like Symptoms: Isolate Patient and Notify Provider/Milk Receiver For Contact: Notify Provider/Milk Receiver Advance Directive: Advance Directive/DNRno Advance Directive Information [...] Learning Preferencesverbal instruction Cultural Considerationsnone Developmental Considerationsnone Mandaeism Considerationsnone Learning Assessment (Other Learner): Other learner availableno Depression Screen: During the past month, have you often been bothered by feeling down, depressed or hopelessno During the past month, have you often had little interest or pleasure in doing thingsno Have you had any thoughts of harming anyone elseno [place] Suicide: Risk Screen Not Applicable/Able to Answerable to be screened In the Past Month: Have you wished you were or could go to sleep and not wake upno(1) In the Past Month: Have you had any actual thoughts of killing yourself no(1) Lifetime: Have you ever done, started to do, or prepared to do anything to end your lifeno(1) [place] Suicide Risknegative Adult Nutrition Screen: Have you [...] Spiritual Screen: Are there any cultural, spiritual, yarsani practices/values/needs that are important for us to knowno CAGE: Is this an injured patient at a Trauma Center ([facility]/Cathy/[place]/Wily/Haim Woo/Kristine): no Vaccinations: Vaccination - Influenza Vaccination Screen: Is it flu season (between and December 04)Yes Screening for identified contraindications to influenza vaccination patient/caregiver refusal Vaccination - Pneumonia Vaccination Screen: Patient has received a previous pneumonia vaccine:no/unknown... Immunocompetent persons with underlying chronic conditions or reside in technician terminal and repeater care facilitiesnone of these conditions Persons with Functional or Anatomic Asplenianone of these conditions Immunocompromised Personsnone of these conditions Pneumonia v (more content not included)... Normal [facility] CORONAVIRUS 2019, SCREEN ASY MPTOMATICon 12-04-2021 DATE OF SYMPTOM ONSET [YYYYMMDD]? Canceled Normal [facility] Comment on above: Order Comment: TEST PT/INR WAS CANCELLED, 07/07/2021 12:20 SPECIMEN CLOTTED.PLEASE RESUBMITDUPLICATE ORDER. Performed By: #### P TINR #### [place] [address] SARS-CoV-2 (COVID-19) RNA APURVA+probe Ql (Unsp spec) Canceled Normal [facility] Comment on above: Order Comment: TEST PT/INR WAS CANCELLED, 07/07/2021 12:20 SPECIMEN CLOTTED.PLEASE RESUBMITDUPLICATE ORDER. Result Comment: . This test has received [facility] Emergency Use Authorization (EUA) and has been verified by [facility]. This test is only authorized for the duration of time that circumstances exist to justify the authorization of the emergency use of in vitro diagnostic tests for the detection of SARS-CoV-2 virus and/or diagnosis of COVID-19 infection under section 564(b)(1) of the Act, 21 U.S.C. 360bbb-3(b)(1), unless the authorization is terminated or revoked sooner. [facility] is certified under CLIA-88 as qualified to perform high complexity testing. Testing is performed in the [facility] laboratory located at [address] [place] [address]. SARS-CoV-2/Flu/RSV Multiplex Test: Fact sheet for providers: https://www.fda.gov/media/547773/download Fact sheet for patients: https://www.fda.gov/media/669071/download Performed By: #### P TINR #### [address] [place] [id number] Lab Specimen Source Nasal, Nasopharyngeal Normal [facility] Comment on above: Order Comment: TEST PT/INR WAS CANCELLED, 07/07/2021 12:20 SPECIMEN CLOTTED.PLEASE RESUBMITDUPLICATE ORDER. Performed By: #### P TINR #### [address] [place] [id number] Clinical Intervention - Jona osorio 12-04-2021 Clinical Intervention - Pharmacy Pharmacist's Clinical Intervention: Is this intervention medication reconciliation related: yes, History Electronic Signatures: Feliciano Martínez ([employer]) (Signed 04-Dec-2021 13:41) Authored: Pharmacist's Clinical Intervention Last Updated: 04-Dec-2021 13:41 by Feliciano Martínez ([employer]) Normal [facility] Coronavirus 2019 RNA by PCR, Screening Asymptomticon 12-04-2021 Date and time of symptom onset Canceled [facility] Work Phone: Coronavirus 2019 RNA by PCR, Screening Asymptomtic Canceled [facility] Work Phone: Comment on above: SOURCE: Nasal, Nasop haryngeal.This test has received FDA Emergency Use Authorization (EUA) and has been verified by [facility]. This test is only authorized for the duration of time that circumstances exist to justify the authorization of the emergency use of in vitro diagnostic tests for the detection of SARS-CoV-2 virus and/or diagnosis of COVID-19 infection under section 564(b)(1) of the Act, 21 U.S.C. 360bbb-3(b)(1), unless the authorization is terminated or revoked sooner. [facility] is certified under CLIA-88 as qualified to perform high complexity testing. Testing is performed in the [facility] laboratory located at [address] [place] [address].SARS-CoV-2/Flu/RSV Multiplex Test: Fact sheet for providers: https://www.fda.gov/media/803816/downloadFact sheet for patients: https://www.[employer]out[employer].gov/media/853940/download Discharge Ojnvchh4ff 022 Discharge Profile2 Discharge Orders: Anticipated Discharge Date: Anticipated Discharge [id number] Anticipated Discharge Time11:00 Problem List: Additional Dx: [...] (POV) Call to Schedule in2 weeks Phone [phone], please call with any questions CommentsYou will [...] 5low iodine diet Electronic Signatures: Modesto Blackburn ( (Resident)) (Signed 05-Dec-2021 05:34) Authored: Discharge Orders, Hospital Course (Home Care/Gold Form), Provider FINAL REVIEW of Orders, Appointments, Gold Form - Director Of Design Summary Jasmine Alejandra (ASST N MGR) (Signed 05-Dec-19 (more content not included)... Normal [facility] HCG,URINEon 12-04-2021 Beta HCG ( test) Ql (U) Negative Normal Negative [facility] Comment on above: Performed By: #### H CGU #### [facility] [address] [place] [address] No Panel Informationon 12-04 Name JEAN-CLAUDE PINTO Pathologist: LILLI AMAYA ASA, MD, PhD Date of Procedure: 12/04/2021 Date Receive [facility] Work Phone: Order Reconciliationon 12-04 Order Reconciliation [...] orally christina (more content not included)... Normal [facility] Order Reconciliation Page 1 [...] not controlled with tylenol cesilia mckee, ICD10: [id number] Reviewed and Held Vraylar 1.5 mg oral capsule 1 cap(s) orally once a [id number]-7930 Cariprazine Capsule (VRAYLAR)DOSE = 1.5 mg Oral DailyVraylar 1.5 mg oral capsule continued as the inpatient order Cariprazine Zoloft 25 mg oral tablet 0.5 tab(s) orally once a [id number]-7500 Reviewed and Held Additional Current Orders Acetaminophen [...] Every 2 Hours, PRN Sore Throat Normal [facility] PARATHYROID HORMONE,INTACTon 12-04-2021 PARATHYROID HORMONE,INTACT 38.9 pg/mL Normal 12.0 - 88.0 [facility] Comment on above: Performed By: #### P TH #### [facility] [address] [place] [id number] Parathormone Intact, Serumon 12-04-2021 Parathyrin.intact [Mass/Vol] 38.9 pg/mL See Below [facility] Work Phone: Comment on above: Reference Range: 12. 0 - 88.0 Patient Profile - Adult v2on 12-04-2021 Patient Profile - Adult v2 Profile: Initial Info: How to be Addressedmichelle(1) Spoken Language PreferredEnglish (1) Stated Reason for AdmissionSurgery Wants Family/Rep Notified of Admissionn/a; family present Notify PCPnotify PCP Informed of Patient Visiting Rightsyes Arrived FromOR Patient Belongingsnone Medications Br[facility] to [facility]: Blood Avoidance/Restrictionsnone (1) Previous Transfusion Reactionnot applicable(1) Weight in kg155.9 kilogram(s)(2) Weight in hmy488.7 pound(s) Weight Methodstated Scale Typebed Height in [...] Profile - Adult v2 10-Jul-2021 12:[address] [facility] Patient Profile - Preop v3on 12-04-2021 Patient Profile - Preop v3 Patient Profile - Preop: Initial Info: Patient DemographicsName: LAURO PINTO Date: 1975 Address: [address] [place] [address] Primary Phone [phone] How to be Addressedmichelle Spoken Language PreferredEnglish Source of Informationpatient Stated Reason for Admissionthyroidectomy Primary Contact Name and Numberbrenda-mother Limitations on Visitors/Phone Callsonly immediate family may visit Medications Brought to Hospitalno General Health: Weight in kg155.9 kilogram(s) Weight in hcg664.7 pound(s) Weight Methodstated Height in feet6 feet [...] Tobacco Use: Tobacco Useno Pre-op Checklist: Arrival [id number] Arrival Time06:03 Procedure Typethyroidectomy NPOyes Last Food Xbtltt00-Iet-5829 20:00 Last Clear Fluid Ylwgou97-Pvl-8239 20:00 ID Band On Patientpatient ID (name), [...] 04-Dec-2021 06:47 by Portia Naylor (SALLY) Normal [facility] RENAL FUNCTION PANELon 12-04 Albumin [Mass/Vol] 3.6 g/dL Normal 3.4 - 5.0 [facility] Comment on above: Performed By: #### R ENAL #### [address] [address] Anion gap [Moles/Vol] 13 mmol/L Normal 10 - 20 [facility] Comment on above: Performed By: #### R ENAL #### [address] [address] Calcium [Mass/Vol] 8.5 mg/dL Low 8.6 - 10.3 [facility] Comment on above: Performed By: #### R ENAL #### [address] [address] Chloride [Moles/Vol] 106 mmol/L Normal 98 - 107 [facility] Comment on above: Performed By: #### R ENAL #### [address] [address] Creatinine [Mass/Vol] 0.89 mg/dL Normal 0.50 - 1.05 [facility] Comment on above: Performed By: #### R ENAL #### [address] [address] GFR/1.73 sq M.predicted among non-blacks MDRD (S/P/Bld) [Vol rate/Area] 81 mL/min/{1.73_m2} Normal >90 [facility] Comment on above: Result Comment: CALC ULATIONS OF ESTIMATED GFR ARE PERFORMED USING THE 2020 CKD-EPI STUDY REFIT EQUATION WITHOUT THE RACE VARIABLE FOR THE IDMS-TRACEABLE CREATININE METHODS. https://jasn.asnjournals.org/content//ASN.477678 5489 Performed By: #### R ENAL #### [address] [address] Glucose [Mass/Vol] 116 mg/dL High 74 - 99 [facility] Comment on above: Performed By: #### R ENAL #### [address] [address] HCO3 (Bld) [Moles/Vol] 21 mmol/L Normal 21 - 32 [facility] Comment on above: Performed By: #### R ENAL #### [address] [address] Phosphate [Mass/Vol] 2.5 mg/dL Normal 2.5 - 4.9 [facility] Comment on above: Result Comment: The performance characteristics of phosphorus testing in heparinized plasma have been validated by the individual laboratory site where testing is performed. Testing on heparinized plasma is not approved by the FDA; however, such approval is not necessary. Performed By: #### R ENAL #### [address] [address] Potassium [Moles/Vol] 4.1 mmol/L Normal 3.5 - 5.3 [facility] [facility] [place] on above: Performed By: #### R ENAL #### [address] [address] Sodium [Moles/Vol] 136 mmol/L Normal 136 - 145 [facility] Comment on above: Performed By: #### R ENAL #### [address] [address] Urea nitrogen [Mass/Vol] 15 mg/dL Normal 6 - 23 [facility] Comment on above: Performed By: #### R ENAL #### [address] [address] Renal Function Panelon 12-04 Albumin BCP dye [Mass/Vol] 3.6 g/dL 3.4 - 5.0 MG-Otolaryngo [facility] Work Phone: [phone] Anion gap [Moles/Vol] 13 mmol/L 10 - 20 MG- Otolaryn [facility] Work Phone: Calcium [Mass/Vol] 8.5 mg/dL below low threshold 8.6 - 10.3 [facility] Work Phone: [phone] Chloride [Moles/Vol] 106 mmol/L 98 - 107 [facility] tol[facility]o [facility] Work Phone: CO2 [Moles/Vol] 21 mmol/L 21 - 32 MG-Otolar yngo [facility] Work Phone: Creatinine [Mass/Vol] 0.89 mg/dL See Below [facility]- Otolaryngo [facility] Work Phone: Comment on above: Reference Range: 0.5 0 - 1.05 Glucose [Mass/Vol] 116 mg/dL above high threshold 74 - 99 [facility]tol[facility]o [facility] Work Phone: Phosphate [Mass/Vol] 2.5 mg/dL 2.5 - 4.9 MG-O tolaryngo [facility] Work Phone: Comment on above: The performance ya acteristics of phosphorus testing in heparinized plasma have been validated by the individual laboratory site where testing is performed. Testing on heparinized plasma is not approved by the FDA; however, such approval is not necessary. Potassium [Moles/Vol] 4.1 mmol/L 3.5 - 5.3 [facility]- Otolaryngo [facility] Work Phone: Sodium [Moles/Vol] 136 mmol/L 136 - 145 [facility] laryngo [facility] Work Phone: Urea nitrogen [Mass/Vol] 15 mg/dL 6 - 23 [facility] Work Phone: Renal Function Panel 81 {mL/min/1.73m2} >90 [facility] Work Phone: Comment on above: CALCULATIONS OF ROSALIA MATED GFR ARE PERFORMED USING THE 2020 CKD-EPI STUDY REFIT EQUATION WITHOUT THE RACE VARIABLE FOR THE IDMS-TRACEABLE CREATININE METHODS.https://jasn.asnjournals.org/content/early// N.1226945426 [facility] Surgical Pathology Depar tmenton 12-04-2021 [facility] Surgical Pathology Department Name LAURO PINTO Pathologist: LILLI AMAYA ASA, MD, PhD Date of Procedure: 12/04/2021 Date Received: 12/04/2021 Date Reported 12/10/2021 Submitting Physician: EDY DOMINGUEZ MD Location: [facility] Other External # FINAL DIAGNOSIS A. RIGHT [...] in toto superior to inferior AMD amd/12/06/2021 [facility] Department of Pathology [address] [place] [address] Normal [facility] Comment on above: Performed By: #### U [facility] #### [facility] Surgical Pathology Department [address] [place] [address] Urine Teston 12-04 HCG ( test) Ql (U) Negative Negative MG-Otolaryngo [facility] Work Phone: Established Visit (Otolaryng ology)on 10-27-2021 [...] MOUTH ONCE DAILY Vitals Vital Signs Recorded: [id number] 09:32AM Btaxsybjdwj69.9 F Xgbeqzqs568 Zwpvlxlzr68 Height6 ft 1 in Saoavw802 lb BMI Dtfbtznmyd44.25 kg/m2 BSA Calculated2.71 Tobacco Useb) No Fall [...] Oct 27 2021 10:15AM EST (Author) Normal [facility] Falls Risk Screeningon 02-21 -2022 Fall risk assessment a) No falls within the last year MP-Otolaryngo [facility] Work Phone: Tobacco use status [facility] b) No [facility]o [facility] Work Phone: COVID + FLU Quick Testingon 08-16-2021 SARS-CoV-2 (COVID-19) RNA APURVA+probe Ql (Unsp spec) Positive [facility] Other COVID + FLU Quick Testing Negative [facility] Other Established Visit (Otolaryng ology)on 07-21-2021 Established [...] DAILY Vitals Vital Signs Recorded: 21Jul2021 02:48PM Cqajnkiprdp70.9 F Wbjyejcw293 Sbwxkqxah91 Height6 ft 1 in Texxdn701 lb BMI Ouawdqmfgl32.59 kg/m2 BSA Calculated2.69 Tobacco Useb) No Fall Screeninga) No falls within the last year Pain Scale2 Physical Exam Steri-Strips removed, neck incision healing well, no sign of infection or fluid collection 'Scores and Scales' Signatures Electronically signed by : Edy Dominguez MD; Jul 25 2021 4:35AM EST (Author) Normal [facility] Tobacco Screening.on 021 Fall risk assessment a) No falls within the last year [facility]Otolaryngo [facility] Work Phone: Tobacco use status [facility] b) No [facility]-Otolaryngo [facility] Work Phone: Daily Progress Note-ENTon Daily Progress [...] today Objective Data: Objective Information: T PRBPSpO2 [id number]/5698% Date/Time07/10 22:5311/4 22:5311/4 19:4011/4 22:5311/4 22:53 Range(36.2C - 36.8C ) (69 - 83 ) (13 - 18 ) (108 - 133 )/ (56 - 73 ) (97% - 98% ) As of 10-Jul-2021 16:01:00, patient is on 2 L/min of oxygen via room air. Pain reported at 07/11 2:45: 4 = Moderate ---- Intake and Output ----- Mn/Dy/Year TimeIntakeOutputNet Jul 11, 2021 6:00 [id number] Jul 10, 2021 10:00 [id number] Jul 10, 2021 2:00 [id number] The Intake and Output Totals for the last 24 hours are: IntakeOutputNet [id number] Recent Lab Results: Results: Coagulation: 07/10/2021 07:50 PT / 12.0 / -------< INR < 1.0 PTT\ 26 \ Assessment and Plan: Comorbidities: Comorbidityobesity Obesitymorbid obesity (BMI 40+) Code Status: Code StatusFull Code Electronic Signatures: Edy Dominguez) (Signed 11-Jul-2021 06:06) Authored: Service, Subjective Data, Objective Data, Assessment and Plan, Note Completion Last Updated: 11-Jul-2021 06:06 by Edy Dominguez) Normal [facility] APTTon 07-10-2021 aPTT Coag (Bld) [Time] 26 s Normal 25 - 35 [facility] Comment on above: Result Comment: THE APTT IS NO LONGER USED FOR MONITORING UNFRACTIONATED HEPARIN THERAPY. FOR MONITORING HEPARIN THERAPY, USE THE HEPARIN ASSAY. Performed By: #### A PTT #### [facility] [address] [place] [address] Activated Partial Thrombopla stin Timeon 07-10-2021 aPTT Coag (PPP) [Time] 26 s 25 - 35 -[facility]o [facility] Work Phone: Comment on above: THE APTT [...] AlertFor Ebola-like Symptoms: Isolate Patient and Notify Provider/Milk Receiver For Contact: Notify Provider/Milk Receiver Advance Directive: Advance Directive/DNRno Advance Directive Information [...] demonstration; verbal instruction Cultural Considerationsnone Developmental Considerationsnone Mandaeism Considerationsnone Learning Assessment (Other Learner): Other learner availableno Depression Screen: During the past month, have you often been bothered by feeling down, depressed or hopelessno During the past month, have you often had little interest or pleasure in doing thingsno Have you had any thoughts of harming anyone elseno [place] Suicide: Risk Screen Not Applicable/Able to Answerable to be screened In the Past Month: Have you wished you were or could go to sleep and not wake upno(1) In the Past Month: Have you had any actual thoughts of killing yourself no(1) Lifetime: Have you ever done, started to do, or prepared to do anything to end your lifeno(1) [place] Suicide Risknegative Adult Nutrition Screen: (more content not included)... Normal [facility] Discharge Ihhwfau7la 021 Discharge Profile2 Discharge Orders: Anticipated Discharge Date: Anticipated Discharge [id number] Anticipated Discharge Time11:00 Problem List: Medical History: [...] Course (Home Care/Gold Form), Gold Form - Director Of Design Summary Edy Dominguez) (Signed 11-Jul-2021 06:07) Authored: Discharge Orders, Hospital Course (Home Care/Gold Form), Provider FINAL REVIEW of Orders Last Updated: 11-Jul-2021 06:07 by Edy Dominguez) Normal [facility] HCG,URINEon 07-10-2021 Beta HCG ( test) Ql (U) Negative Normal Negative [facility] Comment on above: Performed By: #### H CGU #### [facility] [address] [facility] [place] [address] Laboratory - Coagulationon 1 09-09-2020 INR Coag (PPP) [Relative time] 1.0 {INR} 0.9 - 1.1 MG-Otolaryngo [facility] Work Phone: PT Coag (PPP) [Time] 12.0 s See Below MG-O tolaryngo [facility] Work Phone: Comment on above: Reference Range: 10. 1 - 13.3 No Panel Informationon 07-10 Name JEAN-CLAUDE PINTO Pathologist: LILLI AMAYA ASA, MD, PhD Date of Procedure: 07/10/2021 Date Receive MG-Otolaryngo [facility] Work Phone: Order Reconciliationon 07-10 Order Reconciliation [...] 0.5 tab(s) orally once a day Normal [facility] Order Reconciliation Page 1 [...] capsule 1 cap(s) orally once a day [id number] PM Pantoprazole Enteric Coated Tablet (PROTONIX)DOSE = 40 mg Oral DailyNotes from Pharmacy: Substitution for Omeprazole 20 mg Oral Capsule Dailyomeprazole 20 mg oral delayed release capsule continued as the inpatient order Pantoprazole Vraylar 1.5 mg oral capsule 1 cap(s) orally once a [id number] PM Cariprazine Capsule (VRAYLAR)DOSE = 1.5 mg Oral DailyVraylar 1.5 mg oral capsule continued as the inpatient order Cariprazine Zoloft 25 mg oral tablet 0.5 tab(s) orally once a [id number]-[id number] PM Sertraline - PEDS Tablet (ZOLOFT)DOSE = [...] and ambulat (more content not included)... Normal [facility] PT/INRon 07-10-2021 PT Coag (PPP) [Time] 12.0 s Normal 10.1 - 13.3 [facility] Comment on above: Performed By: #### M G #### [place] [address] PT, INR 1.0 Normal 0.9 - 1.1 [facility] Comment on above: Performed By: #### M G #### [place] [id number] Patient Profile - Adult v2on 07-10-2021 Patient Profile - Adult v2 Profile: Initial Info: How to be Addressedmichelle(1) Spoken Language PreferredEnglish (1) Source of Informationpatient Stated Reason for Admissionleft thyroidectomy Primary Contact Name and Numberheather [phone] Wants Family/Rep Notified of Admissionyes, primary contact Notify PCPnotify PCP Informed of Patient Visiting Rightsyes Arrived FromOR Was Admitted To in Past 90 Daysnone Patient Belongingsremains with patient Patient Belongings Remaining with Patientclothing; cell phone/electronics; purse/wallet; Purse, clothing, cell phone Medications Brought to Hospitalno General Health: Blood Avoidance/Restrictionsnone (1) Previous Transfusion Reactionno(1) Weight in kg152.9 kilogram(s) Weight in did482 pound(s) Weight Methodstated Scale Typestanding Height in [...] no (1) Are You Currently Breastfeedingno (1) EGG SEPARATOR 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 Barriers to Managing Healthnone Relationship/Environ: Living [...] Profile - Preop v3 07-Jul-2021 11:[address] [facility] Patient Profile - Preop v3on 07-10-2021 Patient Profile - Preop v3 Patient Profile - Preop: Initial Info: Patient DemographicsName: LAURO PINTO Date: 1975 Address: [address] [place] [address] Primary Phone [phone] How to be Addressedmichelle Spoken Language PreferredEnglish Source of Informationpatient Stated Reason for Admissionleft thyroidectomy Primary Contact Name and Numberheather [phone] Patient Belongingsnone Medications Brought to Hospitalno General [...] child(fely) Living Arrangementshouse Resource/Environmental Concernsnone [facility] Anticipated at Transitionnone Tobacco Use: Tobacco Useno Pre-op Checklist: Arrival [id number] Arrival Time06:45 Procedure Typeleft hemithyroidectomy NPOyes Last Food Hieqsq71-Bzj-6152 18:00 Last Clear Fluid Hqnirq65-Ngg-3643 06:20 ID Band On Patientpatient ID (name) [...] Update < 30 days 10-Jul-2021 07:14 Normal [facility] Surgical Pathology Depar tmenton 07-10-2021 [facility] Surgical Pathology Department Name LAURO PINTO [...] nodule(s) or nodular follicular disease 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 Nondestructive Tester sections of the specimen are submitted in 20 cassettes. A 1 superior lobe, mechanical service representative perpendicular sections 2-15 superior to inferior, mechanical service representative sections 16 inferior lobe, mechanical service representative perpendicular sections 17 isthmus resection margin, en face 18-20 mechanical service representative sections of isthmus, from margin to lobe DLS dls/07/14/2021 [facility] Department of Pathology [address] [place] [address] Normal [facility] Comment on above: Performed By: #### U HCS #### [facility] Surgical Pathology Department [address] [facility] [address] Urine Teston 07-10 HCG ( test) Ql (U) Negative Negative -[facility]o [facility] Work Phone: APTTon 07-07-[address] [facility] Comment on above: Order Comment: TEST APTT WAS CANCELLED, 07/07/2021 12:20 SPECIMEN CLOTTED.PLEASE RESUBMIT. Result Comment: THE APTT IS NO LONGER USED FOR MONITORING UNFRACTIONATED HEPARIN THERAPY. FOR MONITORING HEPARIN THERAPY, USE THE HEPARIN ASSAY. Performed By: #### A PTT #### [facility] [address] [place] [address] Activated Partial Thrombopla stin Timeon 07-07-2021 aPTT Coag (PPP) [Time] Canceled [facility] Work Phone: Comment on above: THE APTT IS NO LONGE R USED FOR MONITORING UNFRACTIONATED HEPARIN THERAPY. FOR MONITORING HEPARIN THERAPY, USE THE HEPARIN ASSAY. CBC AND DIFFERENTIALon 07-07 % AUTOMATED IMMATURE GRAN 0.3 % Normal 0.0 - 0.9 [facility] Comment on above: Result Comment: Lizeth ture Granulocyte Count (IG) includes promyelocytes, myelocytes and metamyelocytes but does not include bands. Percent differential counts (%) should be interpreted in the context of the absolute cell counts (cells/L). Performed By: #### P TINR #### [address] [address] Basophils (Bld) [#/Vol] 0.03 10*3/uL Normal 0.00 - 0.10 [facility] Comment on above: Performed By: #### P TINR #### [address] [address] Basophils/100 WBC (Bld) 0.4 % Normal 0.0 - 2.0 [facility] Comment on above: Performed By: #### P TINR #### [address] [address] Eosinophils (Bld) [#/Vol] 0.10 10*3/uL Normal 0.00 - 0.70 [facility] Comment on above: Performed By: #### P TINR #### [address] [address] Eosinophils/100 WBC (Bld) 1.5 % Normal 0.0 - 6.0 [facility] Comment on above: Performed By: #### P TINR #### [address] [address] Erythrocyte distribution width (RBC) [Ratio] 13.9 % Normal 11.5 - 14.5 [facility] Comment on above: Performed By: #### P TINR #### [address] [address] Hematocrit (Bld) [Volume fraction] 39.1 % Normal 36.0 - 46.0 [facility] Comment on above: Performed By: #### P TINR #### [address] [address] Hemoglobin (Bld) [Mass/Vol] 11.7 g/dL Low 12.0 - 16.0 [facility] Comment on above: Performed By: #### P TINR #### [address] [address] Lymphocytes (Bld) [#/Vol] 1.82 10*3/uL Normal 1.20 - 4.80 [facility] Comment on above: Performed By: #### P TINR #### [address] [address] Lymphocytes/100 WBC (Bld) 26.6 % Normal 13.0 - 44.0 [facility] Comment on above: Performed By: #### P TINR #### [address] [address] MCHC (RBC) [Mass/Vol] 29.9 g/dL Low 32.0 - 36.0 [facility] Comment on above: Performed By: #### P TINR #### [address] [address] MCV (RBC) [Entitic vol] 89 fL Normal 80 - 100 [facility] Comment on above: Performed By: #### P TINR #### [address] [address] Monocytes (Bld) [#/Vol] 0.40 10*3/uL Normal 0.10 - 1.00 [facility] Comment on above: Performed By: #### P TINR #### [address] [address] Monocytes/100 WBC (Bld) 5.8 % Normal 2.0 - 10.0 [facility] Comment on above: Performed By: #### P TINR #### [address] [address] Neutrophils (Bld) [#/Vol] 4.47 10*3/uL Normal 1.20 - 7.70 [facility] Comment on above: Performed By: #### P TINR #### [address] [address] Neutrophils/100 WBC (Bld) 65.4 % Normal 40.0 - 80.0 [facility] Comment on above: Performed By: #### P TINR #### [address] [place] [address] NUCLEATED RBC 0.0 /100 WBC Normal 0.0 - 0.0 [facility] Comment on above: Performed By: #### P TINR #### [address] [address] Platelets (Bld) [#/Vol] 243 10*3/uL Normal 150 - 450 [facility] Comment on above: Performed By: #### P TINR #### [address] [address] RBC 4.40 x10E12/L Normal 4.00 - 5.20 [facility] Comment on above: Performed By: #### P TINR #### [address] [address] WBC (Bld) [#/Vol] 6.8 10*3/uL Normal 4.4 - 11.3 [facility] Comment on above: Performed By: #### P TINR #### [address] [address] COMPREHENSIVE PANELon 2020 Albumin [Mass/Vol] 4.0 g/dL Normal 3.4 - 5.0 [facility] Comment on above: Performed By: #### P TINR #### [address] [address] ALP [Catalytic activity/Vol] 49 U/L Normal 33 - 110 [facility] Comment on above: Performed By: #### P TINR #### [address] [address] ALT [Catalytic activity/Vol] 5 U/L Low 7 - 45 [facility] Comment on above: Result Comment: Nano ents treated with Sulfasalazine may generate falsely decreased results for ALT. Performed By: #### P TINR #### [address] [address] Anion gap [Moles/Vol] 11 mmol/L Normal 10 - 20 [facility] Comment on above: Performed By: #### P TINR #### [address] [address] AST [Catalytic activity/Vol] 13 U/L Normal 9 - 39 [facility] Comment on above: Performed By: #### P TINR #### [address] [address] Bilirubin [Mass/Vol] 0.5 mg/dL Normal 0.0 - 1.2 [facility] Comment on above: Performed By: #### P TINR #### [address] [address] Calcium [Mass/Vol] 8.8 mg/dL Normal 8.6 - 10.3 [facility] Comment on above: Performed By: #### P TINR #### [address] [address] Chloride [Moles/Vol] 106 mmol/L Normal 98 - 107 [facility] Comment on above: Performed By: #### P TINR #### [address] [address] Creatinine [Mass/Vol] 0.69 mg/dL Normal 0.50 - 1.05 [facility] Comment on above: Performed By: #### P TINR #### [address] [address] GFR- AM. >60 Normal >60 [facility] Comment on above: Result Comment: CALC ULATIONS OF ESTIMATED GFR ARE PERFORMED USING THE MDRD STUDY EQUATION FOR THE IDMS-TRACEABLE CREATININE METHODS. CLIN CHEM 2007;53:766-72 Performed By: #### P TINR #### [address] [address] GFR-NON AM. >60 Normal >60 [facility] Comment on above: Performed By: #### P TINR #### [address] [address] Glucose [Mass/Vol] 101 mg/dL High 74 - 99 [facility] Comment on above: Performed By: #### P TINR #### [address] [address] HCO3 (Bld) [Moles/Vol] 24 mmol/L Normal 21 - 32 [facility] Comment on above: Performed By: #### P TINR #### [address] [address] Potassium [Moles/Vol] 4.0 mmol/L Normal 3.5 - 5.3 [facility] Comment on above: Performed By: #### P TINR #### [address] [address] Protein [Mass/Vol] 7.1 g/dL Normal 6.4 - 8.2 [facility] Comment on above: Performed By: #### P TINR #### [address] [address] Sodium [Moles/Vol] 137 mmol/L Normal 136 - 145 [facility] Comment on above: Performed By: #### P TINR #### [address] [address] Urea nitrogen [Mass/Vol] 16 mg/dL Normal 6 - 23 [facility] Comment on above: Performed By: #### P TINR #### [address] [address] CORONAVIRUS 2019, SCREEN ASY MPTOMATICon 07-07-2021 SARS-CoV-2 (COVID-19) RNA APURVA+probe Ql (Unsp spec) Not detected Normal Not Detected [facility] Comment on above: Result Comment: [...] patient management decisions. Fact sheet for providers: https://www.fda.gov/media/034685/download Fact sheet for patients: https://www.fda.gov/media/267659/download This test has received FDA Emergency Use Authorization (EUA) and has been verified by [facility] ([facility]). This test is only authorized for the duration of time that circumstances exist to justify the authorization of the emergency use of in vitro diagnostic tests for the detection of SARS-CoV-2 virus and/or diagnosis of COVID-19 infection under section 564(b)(1) of the Act, 21 U.S.C. 360bbb-3(b)(1), unless the authorization is terminated or revoked sooner. [facility] is certified under CLIA-88 as qualified to perform high complexity testing. Testing is performed in the [facility] laboratories located at [id number] [place] [address]. Performed By: #### C OVSC #### [facility] [address] [place] [address] Lab Specimen Source Nasal, Nasopharyngeal Normal [facility] Comment on above: Performed By: #### C OVSC #### [facility] [address] [place] [address] Complete Blood Count + Diffe felykeylaon 07-07-2021 Basophils/100 WBC (Bld) 0.4 % 0.0 - 2.0 [employer] Work Phone: Erythrocyte distribution width (RBC) [Ratio] 13.9 % See Below [employer] Work Phone: Comment on above: Reference Range: 11. 5 - 14.5 Hematocrit (Bld) [Volume fraction] 39.1 % See Below [employer] Work Phone: Comment on above: Reference Range: 36. 0 - 46.0 Hemoglobin (Bld) [Mass/Vol] 11.7 g/dL below low threshold See Below [employer] Work Phone: Comment on above: Reference Range: 12. 0 - 16.0 Lymphocytes/100 WBC (Bld) 26.6 % See Below [employer] Work Phone: Comment on above: Reference Range: 13. 0 - 44.0 MCHC (RBC) [Mass/Vol] 29.9 g/dL below low threshold See Below MG-Otolaryng[facility] Work Phone: Comment on above: Reference Range: 32. 0 - 36.0 MCV (RBC) [Entitic vol] 89 fL 80 - 100 [facility]aryng[facility] Work Phone: Monocytes/100 WBC (Bld) 5.8 % 2.0 - 10.0 [facility]aryng[facility] Work Phone: Neutrophils/100 WBC (Bld) 65.4 % See Below [facility] Work Phone: Comment on above: Reference Range: 40. 0 - 80.0 Platelets (Bld) [#/Vol] 243 10*3/uL 150 - 450 [facility] Work Phone: RBC (Bld) [#/Vol] 4.40 {x10E12/L} See Below [place] -Otolaryng[facility] Work Phone: Comment on above: Reference Range: 4.0 0 - 5.20 WBC (Bld) [#/Vol] 6.8 10*3/uL 4.4 - 11.3 MG-Seferino laryngo [facility] [employer] Work Phone: Complete Blood Count + Differential 0.03 {x10E9/L} See Below [facility]tolaryng[facility] [employer] Work Phone: Comment on above: Reference Range: 0.0 0 - 0.10 Complete Blood Count + Differential 0.10 {x10E9/L} See Below [facility]tolaryng[facility] [employer] Work Phone: Comment on above: Reference Range: 0.0 0 - 0.70 Complete Blood Count + Differential 0.40 {x10E9/L} See Below [facility]Otol[facility] [employer] Work Phone: Comment on above: Reference Range: 0.1 0 - 1.00 Complete Blood Count + Differential 1.82 {x10E9/L} See Below [employer] Work Phone: Comment on above: Reference Range: 1.2 0 - 4.80 Complete Blood Count + Differential 4.47 {x10E9/L} See Below [employer] Work Phone: Comment on above: Reference Range: 1.2 0 - 7.70 Complete Blood Count + Differential 1.5 % 0.0 - 6.0 [facility] Work Phone: Complete Blood Count + Differential 0.3 % 0.0 - 0.9 [employer] Work Phone: Comment on above: Immature Granulocyte Count (IG) includes promyelocytes, myelocytes and metamyelocytes but does not include bands. Percent differential counts (%) should be interpreted in the context of the absolute cell counts (cells/L). Complete Blood Count + Differential 0.0 {/100_WBC} 0.0 - 0.0 [employer] Work Phone: Coronavirus 2019 RNA by PCR, Screening Asymptomticon 07-07-2021 Coronavirus 2019 RNA by PCR, Screening Asymptomtic Not detected Normal See Below [employer] Work Phone: Comment on above: SOURCE: Nasal, [...] make patient management decisions.Fact sheet for providers: https://www.fda.gov/media/118251/downloadFact sheet for patients: https://www.fda.gov/media/064339/downloadThis test has received FDA Emergency Use Authorization (EUA) and has been verified by [facility] ([facility]). This test is only authorized for the duration of time that circumstances exist to justify the authorization of the emergency use of in vitro diagnostic tests for the detection of SARS-CoV-2 virus and/or diagnosis of COVID-19 infection under section 564(b)(1) of the Act, 21 U.S.C. 360bbb-3(b)(1), unless the authorization is terminated or revoked sooner. [facility] is certified under CLIA-88 as qualified to perform high complexity testing. Testing is performed in the [facility] laboratories located at [address] [place] [address]. Covid 19 Resultson 1 SARS-CoV-2 (COVID-19) RNA [...] You may also be contacted by the [facility] to see if any of your [...] or Naproxen (Aleve) can also be used. Vukq-fhd-rfnijvh cough and cold medicines can be used according to the instructions on the package. Some veda-kvq-ymupcev medicines also contain acetaminophen. Make sure you [...] water are not available, use alcohol-based hand environmental health nurse. Avoid touching your eyes, nose, and mouth [...] 24 carson (more content not included)... Normal [facility] Established Visit (Otolaryng ology)on 07-07-2021 [...] Complaint Goiter, thyroid nodule History of Present Praplqs84-hrsl-vha female referred by Dr. Christian for evaluation [...] Jul 07 2021 12:41PM EST (Author) Normal [facility] - Chemistry and C hemistry - challengeon 07-07-2021 Albumin BCP dye [Mass/Vol] 4.0 g/dL 3.4 - 5.0 MG-Otolaryngo logy[facility] Work Phone: ALP [Catalytic activity/Vol] 49 U/L 33 - 110 MG-Otolaryngo [employer] Work Phone: ALT With P-5'-P [Catalytic activity/Vol] 5 U/L below low threshold 7 - 45 MG-Otolaryngo [employer] Work Phone: Comment on above: Patients treated wit h Sulfasalazine may generate falsely decreased results for ALT. Anion gap [Moles/Vol] 11 mmol/L 10 - 20 MG- Otolaryngo [employer] Work Phone: AST With P-5'-P [Catalytic activity/Vol] 13 U/L 9 - 39 MG-Otolaryngo [employer] Work Phone: Bilirubin [Mass/Vol] 0.5 mg/dL 0.0 - 1.2 MG-O tolaryngo [employer] Work Phone: Calcium [Mass/Vol] 8.8 mg/dL 8.6 - 10.3 MG-Seferino laryngo [employer] Work Phone: Chloride [Moles/Vol] 106 mmol/L 98 - 107 MG-O tolaryngo [employer] Work Phone: CO2 [Moles/Vol] 24 mmol/L 21 - 32 MG-Otolar yngo [employer] Work Phone: Creatinine [Mass/Vol] 0.69 mg/dL See Below MG- Otolaryngo [employer] Work Phone: Comment on above: Reference Range: 0.5 0 - 1.05 Glucose [Mass/Vol] 101 mg/dL above high threshold 74 - 99 MG-Otolaryngo [employer] Work Phone: Potassium [Moles/Vol] 4.0 mmol/L 3.5 - 5.3 MG- Otolaryngo [employer] Work Phone: Protein [Mass/Vol] 7.1 g/dL 6.4 - 8.2 MG-[place] laryngo logy[facility] Work Phone: Sodium [Moles/Vol] 137 mmol/L 136 - 145 MG-Seferino laryngo [facility] Work Phone: Urea nitrogen [Mass/Vol] 16 mg/dL 6 - 23 MG-Otolaryngo [facility] Work Phone: Laboratory - Coagulationon 1 09-06-2020 INR Coag (PPP) [Relative time] Canceled MG-Otolaryngo [facility] Work Phone: PT Coag (PPP) [Time] Canceled MG-O tolaryngo log[facility] Work Phone: No Panel Informationon 07-07 >60 >60 MG-Otolaryngo [facility] Work Phone: Comment on above: CALCULATIONS OF ROSALIA MATED GFR ARE PERFORMED USING THE MDRD STUDY EQUATION FOR THE IDMS-TRACEABLE CREATININE METHODS. CLIN CHEM 2007;53:766-72 [email or web address] 1:8080 [email or web address]?R etrieveTestByDateTime?Nano hsuLT=[id number]&Date=09-16&Time=10%3a44%3a00%3a 00&TestType=ECG&Site=12&Ou tputType=PDF&Ext=PDF [facility] Work Phone: Normal sinus rhythm MG-Ot olaryngo [facility] Work Phone: [phone] Abnormal MG-Otolaryngo logy[facility] Work Phone: [phone] MG-Otolaryngo [facility] Work Phone: 413 1 [facility]-Otolaryngo [facility] Work Phone: [phone] 198 1 MG-Otolaryngo logy[facility] Work Phone: [phone] 147 1 [facility]-Otolaryngo log[facility] Work Phone: 218 1 [facility]-Otolaryngo [facility] Work Phone: 14 1 [facility]-Otolaryngo log[facility] Work Phone: 18 1 [facility]-Otolaryngo [facility] Work Phone: 9 1 [facility]-Otolaryngo log[facility] Work Phone: 59 1 [facility]Otolaryngo [facility] Work Phone: 464 1 [facility]-Otolaryngo log[facility] Work Phone: 390 1 [facility]tolaryngo [facility] Work Phone: 76 1 [facility]Otolaryngo log[facility] Work Phone: 142 1 [facility]Otolaryngo [facility] Work Phone: 85 1 [facility]Otolaryngo [facility] Work Phone: PT/INRon 07-07-2021 PROTHROMBIN TIME Canceled Normal [facility] Comment on above: Order Comment: TEST PT/INR WAS CANCELLED, 07/07/2021 12:20 SPECIMEN CLOTTED.PLEASE RESUBMITDUPLICATE ORDER. Performed By: #### P TINR #### [address] [address] PT, INR Canceled Normal [facility] Comment on above: Order Comment: TEST PT/INR WAS CANCELLED, 07/07/2021 12:20 SPECIMEN CLOTTED.PLEASE RESUBMITDUPLICATE ORDER. Performed By: #### P TINR #### [address] [address] Established Visit (Otolaryng ology)on 06-12-2021 Established Visit [...] Complaint Goiter, thyroid nodule History of Present Hfnzcmv24-wenw-jvi female referred by Dr. Christian for evaluation [...] (Author) Normal [facility] No Panel Informationon 04-28 [facility]-Otolaryngo [facility] Work Phone: [facility] Surgical Pathology Depar tmenton 04-28-2021 [facility] Surgical Pathology Department Name LAURO PINTO Pathologist: MIGUEL GAMBLE MD Date of Procedure: 04/28/2021 Date Received: 04/28/2021 Date Reported 04/29/2021 Submitting Physician: EDY DOMINGUEZ MD Location: [facility] Other External # FINAL DIAGNOSIS A. [facility] [id number] (11/14/2020): LEFT THYROID FINE NEEDLE ASPIRATE: --BENIGN FOLLICULAR NODULAR (NODULAR HYPERPLASIA). Electronically Signed Out By MIGUEL GAMBLE MD/M By the signature on this report, the individual or group listed as making the Final Interpretation/Diagnosis certifies that they have reviewed this case. Clinical History: FNA thyroid nodule Specimens Submitted As: A: [facility] [id number] (11/14/2020) Slide/Block Description Received from [facility] [employer], [address] [place] [id number], are thirteen (13) slides labeled [id number] Keep Slides: N Slides Returned: N Personal Consult: N Normal [facility] Comment on above: Performed By: #### U [facility] #### [facility] Surgical Pathology Department [address] [facility] [address] Initial Visit (Otolaryngolog y)on 04-07-2021 Initial Visit [...] Complaint Goiter, thyroid nodule History of Present Wsyfuwo49-zkrb-bsk female referred by Dr. Christian for evaluation [...] DAILY Vitals Vital Signs Recorded: 07Apr2021 02:27PM Kftldgisxmu53.2 F Vaarxppo290 Rgmxiyeij02 Height6 ft 1 in Synvqz367 lb BMI Atlgqrrqck14.33 kg/m2 BSA Calculated2.68 Tobacco Useb) No Fall [...] May 04 2021 2:13PM EST (Author) Normal [facility] Tobacco Screening.on Fall risk assessment a) No falls within the last year [facility] Work Phone: Tobacco use status CPHS b) No [facility]tolaryngo [facility] Work Phone: CTA CHEST WO W CONon [...] AMBREEN ZENDEJAS Date: 2020-08-28 22:10 Normal [facility] CBC AUTO DIFFon 08-28-2020 Basophils (Bld) [#/Vol] 0.0 103/ul Normal 0.0-0.1 [facility] Comment on above: Performed By: #### C BC #### [facility] [address] [id number] Aminata Lotus Basophils/100 WBC (Bld) 0.3 % Normal 0.2-2.0 [facility] Comment on above: Performed By: #### C BC #### [facility] [address] [place], [place] [address] Aminata Lotus Eosinophils (Bld) [#/Vol] 0.0 103/ul Normal 0.0-0.7 [facility] Comment on above: Performed By: #### C BC #### [facility] [address] [place], [place] [address] Aminata Lotus Eosinophils/100 WBC (Bld) 0.2 % Critically low 0.9-7.0 [facility] Comment on above: Performed By: #### C BC #### [facility] [address], [place] [address] Aminata Lotus Erythrocyte distribution width (RBC) [Ratio] 13.6 % Normal 11.0-15.0 [facility] Comment on above: Performed By: #### C BC #### [facility] [address], [place] [address] Aminata Lotus Hematocrit (Bld) [Volume fraction] 39.9 % Normal 36.0-48.0 [facility] Comment on above: Performed By: #### C BC #### [facility] [address] [place], [place] [address] Aminata Lotus Hemoglobin (Bld) [Mass/Vol] 12.5 g/dL Normal 12.0-16.0 [facility] Comment on above: Performed By: #### C BC #### [facility] [address] [place], [place] [address] Aminata Lotus IG # 0.02 10e3/ul Normal 0.00-0.03 [facility] Comment on above: Performed By: #### C BC #### [facility] [address] [place] [address] Aminata Lotus IG % 0.2 % Normal 0.0-0.5 [facility] Comment on above: Performed By: #### C BC #### [facility] [address] [place] [address] Aminata Lotus Lymphocytes (Bld) [#/Vol] 2.3 103/ul Normal 1.2-3.8 [facility] Comment on above: Performed By: #### C BC #### [facility] [address] [place], [place] [address] Aminata Lotus Lymphocytes/100 WBC (Bld) 20.1 % Critically low 20.5-60.0 [facility] Comment on above: Performed By: #### C BC #### [facility] [address] [place], [place] [address] Aminata Lotus MANUAL DIFF REQ NO Normal [facility] Comment on above: Performed By: #### C BC #### [facility] [address] [place], [place] [address] Aminata Lotus MCH (RBC) [Entitic mass] 27.0 pg Normal 26.7-34.0 [facility] Comment on above: Performed By: #### C BC #### [facility] [address] [place], [place] [address] Aminata Lotus MCHC (RBC) [Mass/Vol] 31.3 g/dL Normal 29.9-35.2 [facility] Comment on above: Performed By: #### C BC #### [facility] [address], [place] [address] Aminata Lotus MCV (RBC) [Entitic vol] 86.2 fL Normal 81.0-99.0 [facility] Comment on above: Performed By: #### C BC #### [facility] [address], [place] [address] Aminata Lotus Monocytes (Bld) [#/Vol] 0.5 103/ul Normal 0.3-0.8 [facility] Comment on above: Performed By: #### C BC #### [facility] [address] [place], [place] [address] Aminata Lotus Monocytes/100 WBC (Bld) 4.5 % Normal 1.7-12.0 [facility] Comment on above: Performed By: #### C BC #### [facility] [address] [place], [place] [address] Aminata Lotus Neutrophils (Bld) [#/Vol] 8.4 103/ul Critically high 1.4-6.5 [facility] Comment on above: Performed By: #### C BC #### [facility] [address] [place] [address] Aminata Lotus Neutrophils/100 WBC (Bld) 74.7 % Normal 43.0-75.0 [facility] Comment on above: Performed By: #### C BC #### [facility] [address] [place] [address] Aminata Lotus Platelet mean volume (Bld) [Entitic vol] 10.6 fL Normal 9.5-13.5 [facility] Comment on above: Performed By: #### C BC #### [facility] [address], [place] [address] Aminata Lotus Platelets (Bld) [#/Vol] 293 103/ul Normal 150-450 [facility] Comment on above: Performed By: #### C BC #### [facility] [address] [place], [place] [address] Aminata Lotus RBC (Bld) [#/Vol] 4.63 106/ul Normal 4.20-5.40 [facility] Comment on above: Performed By: #### C BC #### [facility] [address] [place] [address] Aminata Gautam WBC (Bld) [#/Vol] 11.2 103/ul Critically high 4.0-11.0 T [facility] Comment on above: Performed By: #### C BC #### [facility] [address] [place] [address] Aminata Lotus CULTURE URINEon 08-28-2020 CULTURE URINE Culture Observations : NORMAL GENITAL FRANK. NO POTENTIAL PATHOGENS SEEN Normal [facility] Comment on above: Performed By: #### U RCX #### [facility] [address] [place] [address] Aminatayohan Gautam ER URINE PROFILEon 0 Bilirubin [Mass/Vol] Negative Normal NEGATIVE [facility] Comment on above: Performed By: #### U MICRO, ERUR #### [facility] [address] [place] [address] Aminata Gautam BLOOD TRACE-INTACT Abnormal NEGATIVE [facility] Comment on above: Performed By: #### U MICRO, ERUR #### [facility] [address] [place] [address] Aminata Gautam Clarity (U) CLEAR Normal CLEAR [facility] Comment on above: Performed By: #### U MICRO, ERUR #### [facility] [address] [place] [address] Aminata Lotus Color (U) LT. YELLOW Normal YELLOW [facility] Comment on above: Performed By: #### U MICRO, ERUR #### [facility] [address] [place] [address] Aminata Lotus ERUAHD A micrscopic examina tion will be performed if indicated. Normal [facility] Comment on above: Performed By: #### U MICRO, ERUR #### [facility] [address] [place] [address] Aminata Lotus Glucose [Mass/Vol] Negative Normal NEGATIVE [facility] Comment on above: Performed By: #### U MICRO, ERUR #### [facility] [address] [place] [address] Aminata Lotus Ketones Ql (U) Negative Normal NEGATIVE [facility] Comment on above: Performed By: #### U MICRO, ERUR #### [facility] [address] [place] [address] Aminata Lotus Nitrite Ql (U) Negative Normal NEGATIVE [facility] Comment on above: Performed By: #### U MICRO, ERUR #### [facility] [address] [place] [address] Aminata Lotus pH (Bld) 7.5 Normal 5-9 [facility] Comment on above: Performed By: #### U MICRO, ERUR #### [facility] [address] [place] [address] Aminata Lotus Protein (U) [Mass/Vol] Negative Normal NEGATIVE/ TRACE [facility] Comment on above: Performed By: #### U MICRO, ERUR #### [facility] [address] [place] [address] Aminata Gautam SPEC GRAVITY 1.015 Normal 1.005-<=1. 025 [facility] Comment on above: Performed By: #### U MICRO, ERUR #### [facility] [address] [place] [address] Aminata Gautam UR MICRO IND INDICATED Normal [facility] Comment on above: Performed By: #### U MICRO, ERUR #### [facility] [address] [place] [address] Aminatayohan Gautam Urobilinogen Qn (U) 0.2 EU/dl Normal 0.2 - 1.0 [facility] Comment on above: Performed By: #### U MICRO, ERUR #### [facility] [address] [place], [place] [address] Aminata Gautam WBC (Bld) [#/Vol] SMALL Abnormal NEGATIVE [facility] Comment on above: Performed By: #### U MICRO, ERUR #### [facility] [address] [place], [place] [address] Aminatayohan Gautam PREG HCG QUALon 08-28-2020 , QUAL Negative Normal NEGATIVE [facility] Comment on above: Performed By: #### C BC #### [facility] [address] [id number] Aminatayohan Baileyen PROF 14(COMP METB)on 020 Albumin [Mass/Vol] 3.7 g/dL Normal 3.5-5.0 [facility] Comment on above: Performed By: #### H STROPN, TSH, CMP #### [facility] [address] [id number] Aminata Lotus Albumin/Globulin [Mass ratio] 1.0 {ratio} Normal [facility] Comment on above: Performed By: #### H STROCHOCO, TSH, CMP #### [facility] [address] [id number] Aminata Lotus ALP [Catalytic activity/Vol] 88 U/L Normal 38-126 [facility] Comment on above: Performed By: #### H STROCHOCO, TSH, CMP #### [facility] [address] [address] Aminata Lotus ALT [Catalytic activity/Vol] 13 U/L Normal 9-52 [facility] Comment on above: Performed By: #### H STROCHOCO, TSH, CMP #### [facility] [address] [id number] Aminata Lotus Anion gap [Moles/Vol] 14.5 mmol/L Normal [facility] Comment on above: Performed By: #### H STROPN, TSH, CMP #### [facility] [address] [id number] Aminata Lotus AST [Catalytic activity/Vol] 16 U/L Normal 14-36 [facility] Comment on above: Performed By: #### H STROPN, TSH, CMP #### [facility] [address] [id number] Aminata Lotus Bilirubin Ql (U) 0.7 mg/dL Normal 0.2-1.3 [facility] Comment on above: Performed By: #### H STROPN, TSH, CMP #### [facility] [address] [id number] Aminata Lotus Calcium [Mass/Vol] 8.8 mg/dL Normal 8.4-10.2 [facility] Comment on above: Performed By: #### H STROCHOCO, TSH, CMP #### [facility] [address] [address] Aminata Lotus Chloride [Moles/Vol] 106 mmol/L Normal 98-107 [facility] Comment on above: Performed By: #### H STROPN, TSH, CMP #### [facility] [address] [address] Aminata Lotus CO2 [Moles/Vol] 24.3 mmol/L Normal 22.0-30.0 [facility] Comment on above: Performed By: #### H STROCHOCO, TSH, CMP #### [facility] [address] [place] [address] Aminata Lotus Creatinine [Mass/Vol] 0.96 mg/dL Normal 0.52-1.04 [facility] Comment on above: Performed By: #### H STROPN, TSH, CMP #### [facility] [address] [place] [address] Aminata Lotus EGFR-AF ALBANIAN >60 Normal >=60 [facility] Comment on above: Performed By: #### H STROPN, TSH, CMP #### [facility] [address] [place] [address] Aminata Lotus EGFR-NON AF ALBANIAN >60 Normal >=60 [facility] Comment on above: Performed By: #### H STROPN, TSH, CMP #### [facility] [address] [place] [address] Aminata Lotus Globulin (S) [Mass/Vol] 3.8 g/dL Normal [facility] Comment on above: Performed By: #### H STROPN, TSH, CMP #### [facility] [address] [place] [address] Aminata Lotus Glucose [Mass/Vol] 141 mg/dL Critically high 74-106 T [facility] Comment on above: Performed By: #### H STROPN, TSH, CMP #### [facility] [address] [place] [address] Aminata Lotus Potassium [Moles/Vol] 3.8 mmol/L Normal 3.4-5.0 [facility] Comment on above: Performed By: #### H SALOMON CORTEZ, CMP #### [facility] [address] [address] Aminata Lotus Protein [Mass/Vol] 7.5 g/dL Normal 6.1-8.2 [facility] Comment on above: Performed By: #### H SALOMON CORTEZ, CMP #### [facility] [address] [place] [address] Aminata Lotus Sodium [Moles/Vol] 141 mmol/L Normal 137-145 [facility] Comment on above: Performed By: #### H SALOMON CORTEZ, CMP #### [facility] [address] [place] [address] Aminata Lotus Urea nitrogen [Mass/Vol] 10.0 mg/dL Normal 7.0-17.0 [facility] Comment on above: Performed By: #### H DIEGO TSH, CMP #### [facility] [address] [place] [address] Aminata Lotus Urea nitrogen/Creatinine [Mass ratio] 10.4 mg/mg Normal [facility] Comment on above: Performed By: #### H SALOMON CORTEZ, CMP #### [facility] [address] [place] [address] Aminata Lotus PROTIMEon 08-28-2020 INR Coag (PPP) [Relative time] 1.00 {INR} Normal [facility] Comment on above: Performed By: #### P T, PTT #### [facility] [address] [place] [address] Aminata Lotus PT Coag (PPP) [Time] SEE BELOW Normal [facility] Comment on above: Result Comment: TANYA RED INR: 2.0 - 3.0 CONDITIONS NOT LISTED BELOW 2.5 - 3.5 FOR PROSTHETIC HEART VALVE REPLACEMENT 2.5 - 3.5 RECURRENT THROMBOSIS Performed By: #### P T, PTT #### [facility] [address] [place] [address] Aminata Lotus PT Coag (PPP) [Time] 10.9 s Normal 9.0-11.6 [facility] Comment on above: Performed By: #### P T, PTT #### [facility] [address] [place], [place] [address] Aminata Gautam PTTon 08-28-2020 aPTT Coag (Bld) [Time] 23.9 s Normal 22.3-36.2 [facility] Comment on above: Performed By: #### P T, PTT #### [facility] [address] [place] [address] Aminata Gautam TROPONIN, HIGH SENSITIVITYon 08-28-2020 HSTROP <4.0 Normal 4.0-35.5 [facility] Comment on above: Result Comment: CUT- OFF POINTS HAVE BEEN ESTABLISHED BASED ON THE FOURTH UNIVERSAL DEFINITIONS OF MYOCARDIAL INFARCTION. THE UPPER REFERENCE LIMIT (URL) OF TROPONIN, DEFINED THE 99TH PERCENTILE OF cTnI DISTRIBUTION IN A REFERENCE POPULATION, HAS BEEN CONFIRMED THE DECISION THRESHOLD FOR LA DIAGNOSIS. 90TH PERCENTILE (B=6186)= 35.6 - 109.2 PG/ML 99TH PERCENTILE = 51.4 PG/ML NOTE: HIGH-SENSITIVITY TROPONIN ASSAY IS NOT INTENDED TO BE USED IN ISOLATION BUT SHOULD BE INTERPRETED IN CONJUNCTION WITH OTHER DIAGNOSTIC AND CLINICAL INFORMATION. Performed By: #### H STROPN, TSH, CMP #### [facility] [address] [place] [address] Aminata Gautam TSHon 08-28-2020 TSH Qn 2.034 uIU/mL Normal 0.470-4.68 0 [facility] Comment on above: Performed By: #### H STROPN, TSH, CMP #### [facility] [address] [place] [address] Aminata Gautam TSH Qn SEE BELOW Normal [facility] Comment on above: Result Comment: <0.3 4 UIU/ml HYPERTHYROID 0.34-5.60 UIU/ml EUTHYROID >5.60 UIU/ml HYPOTHYROID Performed By: #### H STROPN, TSH, CMP #### [facility] [address] [place] [address] Aminata Gautam URINE MICROSCOPIC ONLYon Bacteria LM.HPF (Urine sed) [#/Area] NONE SEEN Normal NONE SEEN [facility] Comment on above: Performed By: #### U MICRO, ERUR #### [facility] [address] [address] Aminata Lotus CAST SEEN Abnormal NONE SEEN [facility] Comment on above: Performed By: #### U MICRO, ERUR #### [facility] [address] [address] Aminata Lotus Crystals LM Nom (Urine sed) NONE SEEN Normal NONE SEEN [facility] Comment on above: Performed By: #### U MICRO, ERUR #### [facility] [address] [place] [address] Aminata Lotus CULTURE INDICATED Normal [facility] Comment on above: Performed By: #### U MICRO, ERUR #### [facility] [address] [place] [address] Aminata Lotus Epithelial cells LM.HPF (Urine sed) [#/Area] FEW Abnormal NONE SEEN /RARE [facility] Comment on above: Performed By: #### U MICRO, ERUR #### [facility] [address] [place] [address] Aminata Lotus HYALINE CAST RARE Normal [facility] Comment on above: Performed By: #### U MICRO, ERUR #### [facility] [address] [place] [address] Aminata Lotus MUCOUS NONE SEEN Normal NONE SEEN [facility] Comment on above: Performed By: #### U MICRO, ERUR #### [facility] [address] [address] Aminata Lotus RBC (U) [#/Vol] 2-5 Abnormal 0-2 [facility] Comment on above: Performed By: #### U MICRO, ERUR #### [facility] [address] [place] [address] Aminata Lotus WBC (Bld) [#/Vol] 5-10 Abnormal NONE SEEN [facility] Comment on above: Performed By: #### U MICRO, ERUR #### [facility] [address] [place] [address] Aminata Lotus OPERATIVE REPORTon 06-21-201 7 OPERATIVE REPORT Name: LIAN PINTO LEMR: [id number]: IDANIA MOBLEY D.P.M.DATE OF SURGERY: 02/24/2017ANESTHESIA: General.1ST PNEUMATIC RIVETER:PREOP DIAGNOSIS: Complication of external fixator, right.POSTOP DIAGNOSIS: Complication of external fixator, right.OPERATION: Removal of external fixator, right foot and leg.CUTTER WET MACHINE: Luis Fitzpatrick, PGY-2.HEMOSTASIS: Maintained on the field.ESTIMATED [...] completely removed. The leg was then dressed [facility] [id number] [address] [place] [id number]: ANA M Knox REPORTwith sterile gauze, Rojas, Kerlix, and an William bandage. The patient toleratedthe procedure and anesthesia well in apparent satisfactory condition, wastransferred to the PACU. All vital signs were stable and vascular statusintact to her digits.COMPLICATIONS: None.PATHOLOGICAL SPECIMENS: External fixator, right leg. IDANIA MOBLEY D.P.M./[facility]/[id number]: 03/16/2017 10:56:16 E/S: DELMA KnoxM03/25/17 1448Signature on File ___[facility] [id number] [address] [address] [id number] DR: ANA M Knox REPORT Normal [facility] Vital Signs Date Time Vital Sign Value Performing Clinician Facility 06-07-2025 13: Body height 185.4 cm Kyler FRANCO Work Phone: [facility] 06-07-2025 13: Body mass index (BMI) [Ratio] 39.58 kg/m2 [facility] 06-07-2025 13: Body weight 136.08 kg Kyler FRANCO Work Phone: [facility] 06-07-2025 13: Diastolic blood pressure 76 mm[Hg] Kyler FRANCO Work Phone: [facility] 06-07-2025 13:10-0400 Heart rate 92 /min Kyler FRANCO Work Phone: [facility] 06-07-2025 13:10-0400 Respiratory rate 18 /min Kyler FRANCO Work Phone: [facility] 06-07-2025 13:10-0400 SaO2% (BldA) [Mass fraction] 100 % Kyler FRANCO Work Phone: [facility] 06-07-2025 13:10-0400 Systolic blood pressure 111 mm[Hg] Kyler FRANCO Work Phone: [facility] 05-29-2025 14:22-0400 Body mass index (BMI) [Ratio] 40.24 kg/m2 Jorge Lauren DO Work Phone: [facility] 05-29-2025 14:22-0400 Body weight 138.35 kg Jorge Lauren DO Work Phone: [facility] 05-29-2025 14:22-0400 Diastolic blood pressure 74 mm[Hg] Jorge Lauren DO Work Phone: [facility] 05-29-2025 14:22-0400 Systolic blood pressure 110 mm[Hg] Jorge Lauren DO Work Phone: [facility] 04-18-2025 14:11-0400 Body mass index (BMI) [Ratio] 39.86 kg/m2 Jorge Lauren DO Work Phone: [facility] 04-18-2025 14:11-0400 Body weight 137.04 kg Jorge Lauren DO Work Phone: [facility] 04-18-2025 14:11-0400 Diastolic blood pressure 70 mm[Hg] Jorge Lauren DO Work Phone: [facility] 04-18-2025 14:11-0400 Systolic blood pressure 108 mm[Hg] Jorge Lauren DO Work Phone: [facility] 03-01-2025 13:08-0400 Body height 185.4 cm Kyler Carvajal PA Work Phone: [facility] 03-01-2025 13:08-0400 Body mass index (BMI) [Ratio] 39.71 kg/m2 Kyler Carvajal PA Work Phone: [facility] 03-01-2025 13:08-0400 Body weight 136.53 kg Kyler Carvajal PA Work Phone: [facility] 03-01-2025 13:08-0400 Diastolic blood pressure 80 mm[Hg] Kyler Carvajal PA Work Phone: [facility] 03-01-2025 13:08-0400 Heart rate 70 /min Kyler Carvajal PA Work Phone: [facility] 03-01-2025 13:08-0400 Respiratory rate 16 /min Kyler Carvajal PA Work Phone: [facility] 03-01-2025 13:08-0400 SaO2% (BldA) [Mass fraction] 96 % Kyler Carvajal PA Work Phone: [facility] 03-01-2025 13:08-0400 Systolic blood pressure 122 mm[Hg] Kyler Carvajal PA Work Phone: [facility] 02-28-2025 13:15-0400 Body height 185.4 cm Thi Stephens MD Work Phone: [facility] 02-28-2025 13:15-0400 Body mass index (BMI) [Ratio] 40.11 kg/m2 Thi Stephens MD Work Phone: [facility] 02-28-2025 13:15-0400 Body weight 137.89 kg Thi Stephens MD Work Phone: [facility] 02-28-2025 13:15-0400 Heart rate 73 /min Thi Stephens MD Work Phone: [facility] 02-28-2025 13:15-0400 Respiratory rate 16 /min Thi Stephens MD Work Phone: [facility] 02-28-2025 13:15-0400 SaO2% (BldA) [Mass fraction] 99 % Thi Stephens MD Work Phone: [facility] 11-30-2024 09:00-0400 Body height 185.4 cm Kylerhelga Carvajal PA Work Phone: [facility] 11-30-2024 09:00-0400 Body mass index (BMI) [Ratio] 39.98 kg/m2 Kyler Justa PA Work Phone: [facility] 11-30-2024 09:00-0400 Body weight 137.44 kg Kyler Justa PA Work Phone: [facility] 11-30-2024 09:00-0400 Diastolic blood pressure 80 mm[Hg] Kylerhelga Carvajal PA Work Phone: [facility] 11-30-2024 09:00-0400 Heart rate 82 /min Kyler Nienberg PA Work Phone: [facility] 11-30-2024 09:00-0400 Respiratory rate 18 /min Kyler Hongenberg PA Work Phone: [facility] 11-30-2024 09:00-0400 SaO2% (BldA) [Mass fraction] 99 % Kyler Nienberg PA Work Phone: [facility] 11-30-2024 09:00-0400 Systolic blood pressure 118 mm[Hg] Kyler Gelyenberg PA Work Phone: [facility] 11-01-2024 13:03-0500 Body mass index (BMI) [Ratio] 39.46 kg/m2 Jorge Lauren DO Work Phone: [facility] 11-01-2024 13:03-0500 Body weight 135.68 kg Jorge Lauren DO Work Phone: [facility] 11-01-2024 13:03-0500 Diastolic blood pressure 74 mm[Hg] Jorge Lauren DO Work Phone: [facility] 11-01-2024 13:03-0500 Systolic blood pressure 120 mm[Hg] Jorge Lauren DO Work Phone: [facility] 10-26-2024 13:57-0500 Body height 182.9 cm Kyler Carvajal PA Work Phone: [facility] 10-26-2024 13:57-0500 Body mass index (BMI) [Ratio] 40.96 kg/m2 Kyler Nienberg PA Work Phone: [facility] 10-26-2024 13:57-0500 Body weight 136.99 kg Kyler Hongenberg PA Work Phone: [facility] 10-26-2024 13:57-0500 Diastolic blood pressure 62 mm[Hg] Kyler Nienberg PA Work Phone: [facility] 10-26-2024 13:57-0500 Heart rate 71 /min Kyler Nienberg PA Work Phone: [facility] 10-26-2024 13:57-0500 Respiratory rate 18 /min Kyler Nienberg PA Work Phone: [facility] 10-26-2024 13:57-0500 SaO2% (BldA) [Mass fraction] 100 % Kyler Nienberg PA Work Phone: [facility] 10-26-2024 13:57-0500 Systolic blood pressure 123 mm[Hg] Kyler Hongenberg PA Work Phone: [facility] 09-19-2024 13:21-0500 Body height 185.4 cm Jorge Lauren DO Work Phone: [facility] 09-19-2024 13:21-0500 Body mass index (BMI) [Ratio] 38.37 kg/m2 Jorge Lauren DO Work Phone: [facility] 09-19-2024 13:21-0500 Body weight 131.91 kg Jorge Lauren DO Work Phone: [facility] 09-19-2024 13:21-0500 Diastolic blood pressure 70 mm[Hg] Jorge Lauren DO Work Phone: [facility] 09-19-2024 13:21-0500 Systolic blood pressure 120 mm[Hg] Jorge Lauren DO Work Phone: [facility] 09-07-2024 14:37-0500 Body height 185.4 cm Kyler Carvajal PA Work Phone: [facility] 09-07-2024 14:37-0500 Body mass index (BMI) [Ratio] 38.39 kg/m2 Kyler Hongenberg PA Work Phone: [facility] 09-07-2024 14:37-0500 Body weight 132 kg Kyler Carvajal PA Work Phone: [facility] 09-07-2024 14:37-0500 Diastolic blood pressure 83 mm[Hg] Kyler Carvajal PA Work Phone: [facility] 09-07-2024 14:37-0500 Heart rate 80 /min Kyler Gelyenberg PA Work Phone: [facility] 09-07-2024 14:37-0500 Respiratory rate 16 /min Kyler Nienberg PA Work Phone: [facility] 09-07-2024 14:37-0500 SaO2% (BldA) [Mass fraction] 100 % Kyler Hongenberg PA Work Phone: [facility] 09-07-2024 14:37-0500 Systolic blood pressure 126 mm[Hg] Kyler Carvajal PA Work Phone: [facility] 05-18-2024 11:25-0400 Body height 185.4 cm Kyler Carvajal PA Work Phone: [facility] 05-18-2024 11:25-0400 Body mass index (BMI) [Ratio] 38.26 kg/m2 Kyler Nienberg PA Work Phone: [employer] 05-18-2024 11:25-0400 Body weight 131.54 kg K[facility] Justa [facility] 05-18-2024 11:25-0400 Diastolic blood pressure 85 mm[Hg] Kyler Justa [facility] 05-18-2024 11:25-0400 Heart rate 71 /min [facility]a [facility] 05-18-2024 11:25-0400 Respiratory rate 20 /min K[facility] Justa [facility] 05-18-2024 11:25-0400 Systolic blood pressure 118 mm[Hg] Kyler Hongtima PA [facility] 12-19-2021 16:25-0400 Body height 185.42 cm Toney P [employer] Work Phone: EC-Uljppseewyitqb-Ek [address] Work Phone: 12-19-2021 16:25-0400 Body mass index (BMI) [Ratio] 45.33 kg/m2 Toney P [employer] Work Phone: BY-Vhqgtkdwwbatml-Bw [address] Work Phone: 12-19-2021 16:25-0400 Body surface area Derived from formula 2.71 m2 Toney P House Work Phone: RS-Ucgjidvmjuflyp-Uw [address] Work Phone: 12-19-2021 16:25-0400 Body temperature 96.8 [degF] Toney P House Work Phone: FJ-Lwmbwxjqwbeaqq-Og [address] Work Phone: 12-19-2021 16:25-0400 Body weight 155.86 kg Toney P House Work Phone: OA-Sjyrcqcglrvzji-Or [address] Work Phone: 10-27-2021 09:32-0500 Body height 185.42 cm No PCP None MP-Otolaryngolog y-We [address] [facility] [address] Work Phone: 10-27-2021 09:32-0500 Body mass index (BMI) [Ratio] 45.25 kg/m2 No PCP None LW-Uidydvahnxkkcz-Gy [address] [facility] [address] Work Phone: 10-27-2021 09:32-0500 Body surface area Derived from formula 2.71 m2 No PCP None RT-Jgndszzydudfky-Lp [address] [facility] [address] Work Phone: 10-27-2021 09:32-0500 Body temperature 97.9 [degF] No PCP None MP-Otolaryngolo gy-We [address] [facility] [address] Work Phone: 10-27-2021 09:32-0500 Body weight 155.58 kg No PCP None MP-Otolaryngolog y-We [address] [facility] [address] Work Phone: 10-27-2021 09:32-0500 Diastolic blood pressure 83 mm[Hg] No PCP None VM-Hmhxmjlvkruteo-Cv [address] [facility] [address] Work Phone: 10-27-2021 09:32-0500 Systolic blood pressure 133 mm[Hg] No PCP None YG-Tibdsrcyydxrnm-Vn [address] [facility] [address] Work Phone: 10-27-2021 09:32-0500 0 1 No PCP None MP-Otolaryngolog y-We [address] [facility] [address] Work Phone: Comment on above: Dolly 08-16-2021 12:45-0500 Body height 185.42 cm Melody Brandon Other [facility] Other 08-16-2021 12:45-0500 Body mass index (BMI) [Ratio] 41.55 kg/m2 Melody Brandon Other [facility] Other 08-16-2021 12:45-0500 Body temperature 97.6 [degF] Melody Brandon Other [facility] Other 08-16-2021 12:45-0500 Body weight 142.88 kg Melody Brandon Other [facility] Other 08-16-2021 12:45-0500 Respiratory rate 18 /min Melody Brandon Other [facility] Other 08-16-2021 12:45-0500 SaO2% (BldA) [Mass fraction] 98 % Melody Brandon Other [facility] Other 07-21-2021 14:48-0500 Body height 185.42 cm No PCP None MG-Otolaryngolog y-We [address] Work Phone: 07-21-2021 14:48-0500 Body mass index (BMI) [Ratio] 44.59 kg/m2 No PCP None RP-Gdbnmwhegeivko-Ms [address] Work Phone: 07-21-2021 14:48-0500 Body surface area Derived from formula 2.69 m2 No PCP None WS-Okypxpmakvsdpy-Lq [address] Work Phone: 07-21-2021 14:48-0500 Body temperature 97.9 [degF] No PCP None MG-Otolaryngolo gy-We [place] Work Phone: 07-21-2021 14:48-0500 Body weight 153.32 kg No PCP None MG-Otolaryngolog y-We [address] Work Phone: 07-21-2021 14:48-0500 Diastolic blood pressure 81 mm[Hg] No PCP None EB-Oawkwnjjdqktsh-Pn [address] Work Phone: 07-21-2021 14:48-0500 Systolic blood pressure 120 mm[Hg] No PCP None WK-Zackdelrfzihlb-Kf [address] Work Phone: 07-21-2021 14:48-0500 2 1 No PCP None MG-Otolaryngolog y-We [address] Work Phone: Comment on above: [facility] 04-07-2021 14:27-0400 Body height 185.42 cm No PCP None MG-Otolaryngolog y-We [address] Work Phone: 04-07-2021 14:27-0400 Body mass index (BMI) [Ratio] 44.33 kg/m2 No PCP None TP-Ccmdiewakoxgnk-Pe [address] Work Phone: 04-07-2021 14:27-0400 Body surface area Derived from formula 2.68 m2 No PCP None ZK-Eljneqemdnlxxc-Rb [address] Work Phone: 04-07-2021 14:27-0400 Body temperature 98.2 [degF] No PCP None MG-Otolaryngolo gy-We [place] Work Phone: 04-07-2021 14:27-0400 Body weight 152.41 kg No PCP None MG-Otolaryngolog y-We [place] Work Phone: 04-07-2021 14:27-0400 Diastolic blood pressure 85 mm[Hg] No PCP None VZ-Tzfcfcozmlshlx-Yu [address] Work Phone: 04-07-2021 14:27-0400 Systolic blood pressure 133 mm[Hg] No PCP None CU-Qknnkghkgxipay-Ru [address] Work Phone: 04-07-2021 14:27-0400 0 1 No PCP None MG-Otolaryngolog y-We [address] Work Phone: Comment on above: [employer] Encounters Encounter Date Encounter Type Care Provider Facility Start: 06-14-2025 ambulatory TONEY MONTOYA Facilit y:[facility] Start: 06-07-2025 End: 06-07-2025 Office outpatient visit 25 minutes Kyler Carvajal PA Work Phone: [facility] Comment on above: 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) Start: 06-07-2025 End: 06-07-2025 ambulatory KYLER CARVAJAL [facility] Start: 06-01-2025 ambulatory DO TONEY MONTOYA Faci lity:[facility] Start: 05-31-2025 End: 05-31-2025 Clinisync Result Encounter Jorge Lauren DO Work Phone: [facility] Unsolicited Start: 05-31-2025 End: 05-31-2025 Clinisync Result Encounter Jorge Lauren DO Work Phone: [facility] Unsolicited Start: 05-30-2025 End: 05-30-2025 ambulatory TONEY MONTOYA [facility] Start: 05-29-2025 End: 06-05-2025 Clinisync Result Encounter Jorge Lauren DO Work Phone: [facility] Unsolicited Start: 05-29-2025 End: 06-05-2025 Clinisync Result Encounter Jorge Lauren DO Work Phone: [facility] Unsolicited Start: 05-29-2025 End: 05-29-2025 Patient encounter procedure Jorge Lauren DO Work Phone: [facility] Comment on above: Pre-op examination; Menorrhagia with regular cycle; Pelvic pain; Dysmenorrhea; Dyspareunia in female; Well woman exam with routine gynecological exam; Breast cancer screening by mammogram Start: 05-29-2025 End: 05-29-2025 Preprocedural examination done Jorge Lauren DO Work Phone: [facility] Start: 05-29-2025 End: 05-29-2025 ambulatory JORGE LAUREN Not Available Start: 05-15-2025 Encounter for genera l adult medical examination without abnormal findings DO TONEY [facility] Start: 05-15-2025 End: 05-15-2025 ambulatory DO [facility] Facility:[facility] Start: 04-18-2025 End: 04-18-2025 Bamboo flowsheet Jorge Lauren DO Work Phone: [facility] Start: 04-18-2025 End: 04-18-2025 Bamboo flowsheet Jorge Lauren DO Work Phone: [facility] Start: 04-18-2025 End: 04-18-2025 Office outpatient visit 15 minutes Jorge Lauren DO Work Phone: [facility] Comment on above: Dysfunctional uterin e bleeding Start: 04-18-2025 End: 04-18-2025 ambulatory JORGE LAUREN Not Available Start: 04-12-2025 End: 04-12-2025 ambulatory [facility] Start: 03-30-2025 End: 03-30-2025 ambulatory ZEESHAN Myra [facility] Start: 03-27-2025 ambulatory DO [facility] Faci lity:[facility] Start: 03-01-2025 End: 03-01-2025 Office outpatient visit 15 minutes Kyler FRANCO Work Phone: [facility] Comment on above: Disorder of sacrum ( Primary Dx) Start: 03-01-2025 End: 03-01-2025 ambulatory [facility] Start: 02-28-2025 End: 02-28-2025 Bamboo flowsheet Thi Stephens MD [facility] Start: 02-28-2025 End: 02-28-2025 Bamboo flowsheet Thi Stephens MD Work Phone: [facility] Start: 02-28-2025 End: 02-28-2025 Office outpatient visit 25 minutes Thi Stephens MD Work Phone: [facility] Comment on above: Postoperative hypoth yroidism (Primary Dx); Papillary thyroid carcinoma (HCC); Vitamin D deficiency; Encounter for dietary consultation; Class 3 severe obesity due to excess calories without serious comorbidity with body mass index (BMI) of 40.0 to 44.9 in adult ([facility]) Start: 02-28-2025 End: 02-28-2025 ambulatory THI STEPHENS Not Available Start: 02-12-2025 ambulatory DO TONEY Melara LINDSAY Pickett lity:[facility] Start: 11-30-2024 End: 11-30-2024 Office outpatient visit 15 minutes Kyler FRANCO Work Phone: [facility] Comment on above: Lumbar spondylosis ( Primary Dx) Start: 11-30-2024 End: 11-30-2024 ambulatory KYLER CARVAJAL [facility] Start: 11-17-2024 End: 11-17-2024 ambulatory ZEESHAN Renteria [facility] Start: 11-10-2024 End: 11-10-2024 ambulatory Jorge Lauren Facility:[facility] Start: 11-10-2024 End: 11-10-2024 Departed Referred Sofiya Cole MD Work Phone: [facility] Start: 11-03-2024 [...] 11-01-2024 ambulatory Sofiya Cole MD Work Phone: [facility] Work Phone: Start: 11-01-2024 End: 11-01-2024 Departed Referred Sofiya Cole MD Work Phone: [facility] Start: 10-26-2024 End: 10-26-2024 Office outpatient visit 25 minutes Kyler FRANCO Work Phone: [facility] Comment on above: Disorder of sacrum ( Primary Dx) Start: 10-26-2024 End: 10-26-2024 ambulatory KYLER CARVAJAL [facility] Start: 09-19-2024 End: 09-19-2024 Bamboo flowsheet [...] hypot hyroidism; Malignant neoplasm of thyroid gland ([facility]) Start: 09-11-2024 End: 09-11-2024 ambulatory THI STEPHENS [...] visit 15 minutes Kyler FRANCO Work Phone: [facility] Comment on above: 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) Start: 09-07-2024 End: 09-07-2024 ambulatory KYLER CARVAJAL [facility] Start: 08-14-2024 End: 08-14-2024 ambulatory TONEY MONTOYA [facility] Start: 08-11-2024 End: 08-11-2024 ambulatory ZEESHAN PERRY [facility] Start: 08-09-2024 End: 08-18-2024 Telephone encounter Lata Mary RN [facility] Start: 08-07-2024 End: 08-07-2024 ambulatory DO TONEY MONTOYA Facility:[facility] Start: 08-01-2024 End: 08-01-2024 ambulatory TONEY MONTOYA [facility] Start: 07-25-2024 End: 07-25-2024 Departed Referred Sofiya Cole MD Work Phone: [facility] Start: 07-25-2024 End: 07-25-2024 ambulatory Sofiya Cole MD Work Phone: [facility] Work Phone: Start: 07-25-2024 End: 07-25-2024 ambulatory [facility] Facility[facility] Start: 07-25-2024 End: 07-25-2024 ambulatory TONEY MONTOYA Facility: [facility] Start: 06-28-2024 End: 06-28-2024 ambulatory DO TONEY MONTOYA Facility:[facility] Start: 06-22-2024 End: 06-22-2024 ambulatory TONEY MONTOYA [facility] Start: 06-19-2024 End: 06-19-2024 ambulatory TONEY MONTOYA [facility] Start: 06-17-2024 End: 06-17-2024 ambulatory ZEESHAN Myra [facility] Start: 06-16-2024 End: 06-16-2024 ambulatory [facility] Myra [facility] Start: 05-29-2024 End: 08-18-2024 Telephone encounter Kyler FRANCO Work Phone: [facility] Start: 05-18-2024 End: 05-18-2024 Office outpatient visit 25 minutes Kyler FRANCO Work Phone: [facility] Comment on above: Disorder of sacrum ( Primary Dx) Start: 12-19-2021 Postop follow up vis it related to original px Toney Montoya Work Phone: RY-Dmeljewxcfgzgd-Iztj [place] Work Phone: Start: 12-05-2021 AUDIT Toney Melara Hous e Work Phone: [facility] Work Phone: Start: 11-28-2021 AUDIT Toney Melara Hous e Work Phone: [facility] Work Phone: Start: 10-27-2021 Office outpatient vi sit 15 minutes No PCP None BZ-Azmukcoibphalu-Ifqx [place] [facility] Work Phone: Start: 08-16-2021 End: 08-16-2021 ambulatory Melody Brandon Other [facility] Other Start: 08-16-2021 Office outpatient vi sit 15 minutes Melody Brandon [facility] [place] Start: 07-21-2021 Postop follow up vis it related to original px No PCP None NZ-Xsbroeqdothmeq-Mqqn [place] Work Phone: Start: 07-10-2021 [facility], Provider: Edy Dominguez, Status: Pen, Time: 11:00 AM No PCP None IP-Dlrsitwgedhnhq-Ldhn [place] Work Phone: Start: 07-08-2021 Chart Update No PCP None -[facility]tolary [employer] [place] Work Phone: Start: 07-07-2021 Office outpatient vi sit 25 minutes No PCP None JW-Vnmqfrfxsgttdp-Drvx [place] Work Phone: Start: 06-12-2021 Phys/qhp telephone evaluation 5-10 min No PCP None CR-Knianneoekcept-Lgnv [place] Work Phone: Start: 04-29-2021 Chart Update No PCP None -Otolary [employer]ologyArray [employer] [place] Work Phone: Start: 04-07-2021 Office outpatient ne w 45 minutes No PCP None YE-Hjdzyayjuhabmj-Mjsv [place] Work Phone: Start: 08-28-2020 End: 08-29-2020 Patient encounter procedure AMY MARKER Facility: Procedures Date Procedure Procedure Detail Performing Clinician Start: 05-31-2025 US PELVIS W/ TRANSVAGINAL Jorge Lauren DO Work Phone: Start: 05-29-2025 IGP,APTIMA HPV,AGE GDLN Jorge Lauren DO Work Phone: Start: 11-03-2024 ECG 12-LEAD Jorge Fazi o DO Work Phone: Start: 11-01-2024 Urine test visual color cmprsn meths Jorge Lauren DO Work Phone: Plan of Treatment Date Care Activity Detail Author Start: 06-07-2026 Adult BMI Screening Adult BMI Screening [facility] Start: 06-07-2026 Tobacco Screening Tobacco Screening [facility] Start: 03-01-2026 Adult BMI Screening Adult BMI Screening [facility] Start: 03-01-2026 Tobacco Screening Tobacco Screening [facility] Start: 11-30-2025 Adult BMI Screening Adult BMI Screening [facility] Start: 11-30-2025 Tobacco Screening Tobacco Screening [facility] Start: 10-26-2025 Adult BMI Screening Adult BMI Screening [facility] Start: 10-26-2025 Tobacco Screening Tobacco Screening [facility] Start: 09-07-2025 Adult BMI Screening Adult BMI Screening [facility] Start: 09-07-2025 Tobacco Screening Tobacco Screening [facility] Start: 08-22-2025 End: 08-22-2025 Patient encounter procedure [facility] Start: 08-11-2025 Tobacco Screening Tobacco Screening [facility] Start: 08-08-2025 End: 08-08-2025 Patient encounter procedure 08/08/2025 2:30 PM EST Office Visit MAZIN MENDOZA [address] [facility] [place] [id number] Lindsey Collier, PA [address] [place] [address] MZAIN MENDOZA Start: 07-26-2025 End: 07-26-2025 Patient encounter procedure 07/26/2025 1:00 PM EST Office Visit [facility] [address] [place] [address] Kyler Carvajal PA [address], [address] [place] [address] [facility] Start: 07-04-2025 End: 07-04-2025 Patient encounter procedure 07/04/2025 2:30 PM EDT Office Visit MAZIN MENDOZA [address] [place] [phone] Lindsey Collier, PA [address] [place] [address] MAZIN Cristina [facility] Start: 05-29-2025 End: 07-29-2026 MG Breast - bilateral Screening Bilateral screening mammogram Imaging Routine Breast cancer screening by mammogram Expected: 05/29/2025 (Approximate), Expires: 07/29/2026 [facility] Work Phone: Comment on above: Expected: 05/29/2025 (Approximate), Expi res: 07/29/2026 Start: 05-29-2025 End: 05-29-2025 Patient encounter procedure 05/29/2025 1:40 PM EDT Procedure Visit MAZIN MENDOZA [address] [place] [address] Jorge Aguilar DO [address] [place] [address] MAZIN Cristina OBERLIN Start: 05-23-2025 End: 05-23-2025 Professional / ancillary services management 05/23/2025 1:00 PM EDT Ancillary Procedure MAZIN MENDOZA [address] [place] [address] MAZIN Cristina OBGYN Start: 05-18-2025 Adult BMI Screening Adult BMI Screening [facility] Start: 05-18-2025 Tobacco Screening Tobacco Screening [facility] Start: 05-07-2025 Influenza vaccination Influenza Vaccine [facility] Start: 04-18-2025 End: 10-19-2025 US Pelvis US Pelvis w/ TV Imaging Routine Dysfunctional uterine bleeding Expected: 04/18/2025, Expires: 10/19/2025 [facility] Work Phone: Comment on above: Expected: 04/18/2025, Expires: Start: 04-12-2025 End: 04-12-2025 Patient encounter procedure 04/12/2025 1:30 PM EDT Office Visit [facility] [address] [place] [address] Kyler Carvajal PA [address] [place], [place] [id number] [facility] Start: 03-30-2025 End: 03-30-2025 Admission to same day surgery center 03/30/2025 11:58 AM EDT - 03/30/2025 12:05 PM EDT Surgery [facility] [address] [facility] [place] [phone] Zeeshan Perry MD [address] [facility] [place], [place] [phone] INJECTION BLOCK NERVE SACROILIAC [13727 (CPT )] [facility] Comment on above: INJECTION BLOCK NERVE SACROILIAC [76702 (CPT )] Start: 03-30-2025 End: 03-30-2025 Inject si joint arthrgrphy&/anes/steroid w/trav INJECTION BLOCK NERVE SACROILIAC Disorder of sacrum 03/30/2025 11:58 AM EDT [facility] Start: 03-30-2025 Subsequent hospital visit by physician 03/30/2025 11:58 AM EDT Hospital Encounter [facility] [address] [place] [phone] Zeeshan Perry MD [address] [place], [place] [id number] [facility] Start: 02-28-2025 End: 02-28-2026 Thyroglobulin Thyroglobulin Lab Routine Postoperative hypothyroidism Papillary thyroid carcinoma (HCC) Expected: 02/28/2025 (Approximate), Expires: 02/28/2026 [facility] Work Phone: Comment on above: Expected: 02/28/2025 (Approximate), Expi res: 02/28/2026 Start: 02-28-2025 End: 02-28-2026 Thyroglobulin Antibody Thyroglobulin Antibody Lab Routine Postoperative hypothyroidism Papillary thyroid carcinoma (HCC) Expected: 02/28/2025 (Approximate), Expires: 02/28/2026 [facility] Comment on above: Expected: 02/28/2025 (Approximate), Expi res: 02/28/2026 Start: 02-28-2025 End: 02-28-2026 Thyrotropin [Units/volume] in Serum or Plasma TSH Lab Routine Postoperative hypothyroidism Expected: 02/28/2025 (Approximate), Expires: 02/28/2026 [facility] Comment on above: Expected: 02/28/2025 (Approximate), Expi res: 02/28/2026 Start: 02-28-2025 End: 02-28-2026 Thyroxine (T4) free [Mass/volume] in Serum or Plasma T4, free Lab Routine Postoperative hypothyroidism Expected: 02/28/2025 (Approximate), Expires: 02/28/2026 [facility] Comment on above: Expected: 02/28/2025 (Approximate), Expi res: 02/28/2026 Start: 02-28-2025 End: 02-28-2026 Triiodothyronine (T3) Free [Mass/volume] in Serum or Plasma T3, free Lab Routine Postoperative hypothyroidism Expected: 02/28/2025 (Approximate), Expires: 02/28/2026 [facility] Comment on above: Expected: 02/28/2025 (Approximate), Expi res: 02/28/2026 Start: 02-28-2025 End: 02-28-2025 Patient encounter procedure 02/28/2025 1:20 PM EDT Office Visit [facility] [address] [place] [address] Thi Stephens MD [address] [place] [address] Arrived [facility] Comment on above: Arrived Start: 01-30-2025 End: 01-30-2025 Patient encounter procedure 01/30/2025 2:30 PM EDT Office Visit [facility] [address] [place] [phone] Kyler Carvajal, PA [address] [place], [place] [phone] [facility] Start: 12-07-2024 End: 12-07-2024 Patient encounter procedure 12/07/2024 1:30 PM EDT Office Visit [facility] [address] [place] [phone] Kyler Carvajal PA [address] [facility], [place] [phone] [facility] Start: 11-17-2024 End: 11-17-2024 Admission to same day surgery center 11/17/2024 10:26 AM EDT - 11/17/2024 10:33 AM EDT Surgery [facility] [address] [place] [phone] Zeeshan Perry MD [address] [place], [place] [phone] INJECTION BLOCK SACROILIAC JOINT [97534 (CPT )] [facility] Comment on above: INJECTION BLOCK SACROILIAC JOINT [51671 (CPT )] Start: 11-17-2024 End: 11-17-2024 Inject si joint arthrgrphy&/anes/steroid w/trav INJECTION BLOCK SACROILIAC JOINT Disorder of sacrum 11/17/2024 10:26 AM EDT [place] [facility] Start: 11-17-2024 Subsequent hospital visit by physician 11/17/2024 10:26 AM EDT Hospital Encounter [facility] [address] [place] [phone] Zeeshan Perry MD [address] [place] [address] [facility] Start: 11-09-2024 End: 11-09-2024 Patient encounter procedure 11/09/2024 2:45 PM EST Office Visit [facility] [address] [place] [phone] Kyler Carvajal PA [address] [place] [address] [facility] Start: 10-17-2024 End: 10-17-2024 Patient encounter procedure 10/17/2024 2:30 PM EST Procedure Visit [facility] [address] [place] [address] Jorge Aguilar DO [address] [place] [address] [facility] Start: 09-19-2024 End: 09-19-2025 [...] thyroid gland (CMS-HCC) Expected: 09/11/2024, Expires: 09/11/2025 [facility] Work Phone: Comment on above: Expected: 09/11/2024, Expires: Start: 09-11-2024 End: 09-11-2025 Thyroglobulin Antibody Thyroglobulin Antibody Lab Routine Postoperative hypothyroidism (CMS/HCC) Papillary thyroid carcinoma (CMS/HCC) Expected: 09/11/2024 (Approximate), Expires: 09/11/2025 [facility] Comment on above: Expected: 09/11/2024 (Approximate), Expi res: 09/11/2025 Start: 09-11-2024 End: 09-11-2025 Thyroid profile includes TSH FT4 Thyroid profile includes TSH FT4 Lab Routine Postprocedural hypothyroidism Malignant neoplasm of thyroid gland (CMS-HCC) Expected: 09/11/2024, Expires: 09/11/2025 [facility] Work Phone: Comment on above: Expected: 09/11/2024, Expires: Start: 09-11-2024 End: 09-11-2025 Thyrotropin [Units/volume] in Serum or Plasma TSH Lab Routine Postoperative hypothyroidism (CMS/HCC) Papillary thyroid carcinoma (CMS/HCC) Expected: 09/11/2024 (Approximate), Expires: 09/11/2025 [facility] Comment on above: Expected: 09/11/2024 (Approximate), Expi res: 09/11/2025 Start: 09-11-2024 End: 09-11-2025 Thyroxine (T4) free [Mass/volume] in Serum or Plasma [facility] Comment on above: Expected: 09/11/2024 (Approximate), Expi res: 09/11/2025 Expected: 09/11/2024 , Expires: 09/11/2025 Start: 09-11-2024 End: 09-11-2025 Triiodothyronine (T3) Free [Mass/volume] in Serum or Plasma [facility] Comment on above: Expected: 09/11/2024 (Approximate), Expi res: 09/11/2025 Expected: 09/11/2024 , Expires: 09/11/2025 Start: 09-07-2024 End: 09-07-2024 Patient encounter procedure 09/07/2024 2:30 PM EST Office Visit [facility] [address] [place] [address] Kyler Carvajal, PA [address] [place] [address] [facility] Start: 07-04-2024 End: 07-04-2024 Patient encounter procedure 07/04/2024 12:30 PM EDT Office Visit [facility] Management [facility] [address] [place] [phone] Kyler Carvajal, PA [address] [place] [address] [facility] Start: 06-16-2024 End: 06-16-2024 Admission to same day surgery center 06/16/2024 11:15 AM EDT - 06/16/2024 11:22 AM EDT Surgery [facility] [address] [place] [phone] Zeeshan Perry MD [address] [place] [address] INJECTION BLOCK SACROILIAC JOINT [59454 (CPT )] [facility] Comment on above: INJECTION BLOCK SACROILIAC JOINT [96815 (CPT )] Start: 06-16-2024 End: 06-16-2024 Inject si joint arthrgrphy&/anes/steroid w/trav INJECTION BLOCK SACROILIAC JOINT Disorder of sacrum 06/16/2024 11:15 AM EDT [facility] Start: 06-16-2024 Subsequent hospital visit by physician 06/16/2024 11:15 AM EDT Hospital Encounter [facility] [address] [facility] [place] [address] Zeeshan Perry MD [address] [facility] [place] [address] [facility] Start: 05-07-2024 Influenza vaccination Influenza Vaccine [facility] Start: 03-23-2022 FUV, Provider: Edy Dominguez, Status: Pen, Time: 2:30 PM FUV, Provider: Edy Dominguez, Status: Pen, Time: 2:30 PM WK[facility]Lov[facility]ak[facility]ls [facility] Work Phone: Start: 12-19-2021 POV, Provider: Edy Dominguez, Status: Pen, Time: 4:00 PM POV, Provider: Edy Dominguez, Status: Pen, Time: 4:00 PM PY-Cgupphzainboht-Tpm [place] Work Phone: Start: 12-04-2021 [facility]: Edy Dominguez, Status: Pen, Time: 7:00 AM [facility], Provider: Edy Dominguez, Status: Pen, Time: 7:00 AM PX-Sogksaxulfflsl-Erz [place] Work Phone: Start: 10-06-2021 [facility], Provider: Edy Dominguez, Status: Pen, Time: 3:00 PM [facility], Provider: Edy Dominguez, Status: Pen, Time: 3:00 PM JH-Vigojkytpnsopo-Fpo [place] Work Phone: Start: 07-10-2021 [facility] Provider: Edy Dominguez, Status: Pen, Time: 11:00 AM [facility], Provider: Edy Dominguez, Status: Pen, Time: 11:00 AM YD-Bdutpparvhinge-Lhk [place] Work Phone: Start: 01-24-1997 Screening for malignant neoplasm of cervix Pap Smear [facility] Start: 01-24-1995 DTaP,Tdap and Td Vaccines (1 - Tdap) DTaP,Tdap and Td Vaccines (1 - Tdap) [facility] Start: 01-24-1994 Adult BMI Follow Up Plan Adult BMI Follow Up Plan [facility] Start: 1988 Depression Screening Depression Screening [facility] THIN PREP TIS PAP AN D HR HPV DNA THIN PREP TIS PAP AND HR HPV DNA Pathology and Cytology Routine Well woman exam with routine gynecological exam Ordered: 05/29/2025 [facility] [employer] Comment on above: Ordered: 05/29/2025 Tissue exam Tissue exam Path ology and Cytology Routine Dysfunctional uterine bleeding Pre-operative exam Ordered: 11/01/2024 [facility] Work Phone: Comment on above: Ordered: 11/01/2024 End: 06-07-2026 XR Lumbar spine 2 or 3 Views X-ray spine lumbar 2 or 3 views Imaging Routine Lumbosacral spondylosis without myelopathy 1 Occurrences starting 06/07/2025 until 06/07/2026 [facility] Work Phone: Comment on above: 1 Occurrences starting 06/07/2025 until 06/07/2026 XR Lumbar spine 2 or 3 Views X-ray spine lumbar 2 or 3 views Imaging Routine Lumbosacral spondylosis without myelopathy 06/07/2025 1:49 PM EDT [facility] Immunizations Immunization Date Immunization Notes Care Provider [facility] 08-21-2020 influenza, injectabl e, quadrivalent, contains preservative Thi Stephens MD Work Phone: [facility] 08-21-2020 influenza virus vaccine, unspecified formulation Kyler FRANCO Work Phone: [facility] 05-23-2019 influenza, injectabl e, quadrivalent, contains preservative Thi Stephens MD Work Phone: [facility] Payers Date Payer Category Payer Self-pay 2023 Medicare (Managed Care) VERENICE VIVEROS [id number] 2023 Medicaid [id number] 2022 Medicare AN[employer]M MEDICARE [facility]IC[facility] ADV[facility]AGE [id number] 2022-Present [id number] [place] [address] [id number] 2022 Medicare O [facility] MEDIC[facility] [id number] 2022 Unknown [id number] 2019 Auto Insurance [employer] [id number] 1976 Unknown [id number] 2.16.840.1.593306.3.579.2. 593 1976 Unknown [id number] 2.16.840.1.051205.3.579.2. 9 1976 Unknown [id number] 2.16.840.1.485538.3.579.2. 1258 1976 Unknown [id number] 2.16.840.1.009462.3.579.2. 1258 1976 Unknown [id number] 2.16.840.1.634122.3.579.2. 1258 1976 Unknown [id number] 2.16.840.1.769781.3.579.2. 1258 1976 Unknown [id number] 2.16.840.1.900092.3.579.2. 1258 1976 Unknown [id number] 2.16.840.1.996270.3.579.2. 1285 1976 Unknown [id number] 2.16.840.1.782023.3.579.2. 1285 1976 Unknown [id number] 2.16.840.1.828833.3.579.2. 1285 1976 Unknown [id number] 2.16.840.1.120436.3.579.2. 1285 1976 Unknown [id number] 2.16.840.1.304332.3.579.2. 1285 1976 Unknown [id number] 2.16.840.1.033144.3.579.2. 1285 1976 Unknown [id number] 2.16.840.1.327833.3.579.2. 1285 1976 Unknown [id number] 2.16.840.1.587841.3.579.2. 1285 1976 Unknown [id number] 2.16.840.1.005348.3.579.2. 1285 1976 Unknown [id number] 2.16.840.1.489539.3.579.2. 1285 1976 Unknown [id number] 2.16.840.1.979971.3.579.2. 1285 1976 Unknown [id number] 2.16.840.1.276559.3.579.2. 1285 1976 Unknown [id number] 2.16.840.1.351235.3.579.2. 1285 1976 Unknown [id number] 2.16.840.1.121956.3.579.2. 1285 1976 Unknown [id number] 2.16.840.1.091984.3.579.2. 1285 1976 Unknown [id number] 2.16.840.1.433132.3.579.2. 1285 1976 Unknown [id number] 2.16.840.1.736830.3.579.2. 1285 1976 Unknown [id number] 2.16.840.1.575080.3.579.2. 1285 1976 Unknown [id number] 2.16.840.1.004843.3.579.2. 1285 1976 Unknown [id number] 2.16.840.1.726306.3.579.2. 1285 1976 Unknown [id number] 2.16.840.1.928233.3.579.2. 1976 Unknown [id number] 2.16.840.1.325971.3.579.2. 1976 Unknown [id number] 2.16.840.1.220834.3.579.2. 1976 Unknown [id number] 2.16.840.1.933289.3.579.2. 8 1976 Unknown [id number] 2.16.840.1.274816.3.579.2. 1976 Unknown [id number] 2.16.840.1.294336.3.579.2. 1976 Unknown [id number] 2.16.840.1.542188.3.579.2. 1976 Unknown [id number] 2.16.840.1.781957.3.579.2. 1976 Unknown [id number] 2.16.840.1.484689.3.579.2. 718 1959 Medicaid [id number] 1959 Medicare [id number] Private Health Insurance [employer] [id number] Unknown Unknown [id number] 2.16.840.1.667029.3.579.2. 531 Unknown [id number] 2.16.840.1.485624.3.579.2. 531 Unknown [id number] 2.16.840.1.024672.3.579.2. 531 Social History Date Type Detail Facility Unknown if ever smoked [facility] Start: 09-26-2020 End: 09-07-2024 [facility]igned At [facility] Tobacco smoking stat us NHIS Unknown if ever smoked [facility] Work Phone: Start: 04-11-2015 End: 07-26-2024 Sex Female (finding) [facility] Start: 1975 Sex Assigned At Female F [facility] Start: 07-08-2022 End: 08-09-2024 Tobacco smoking status NHIS Never smoked tobacco [facility] Start: 07-08-2022 End: 08-09-2024 Tobacco use and exposure Smokeless tobacco non-user [facility] Start: 09-07-2024 End: 06-07-2025 Alcoholic beverage intake Current drinker of alcohol (finding) [facility] Start: 09-26-2020 End: 09-07-2024 History of Social function [facility] Adolescent depressio n screening assessment 0 [facility] Start: 04-12-2017 Alcohol Comment Socially [facility] Start: 1975 Sex assigned at Not on file P [facility] Medical Equipment Procedure Code Equipment Code Equipment Origin al Text Equipment Identifier Dates Scr Bn Twstof Fr s 2.0x13 Ns - Sws13 - [id number] Start: 02-11-2018 Comment on above: Description: WS13 2. 0 major thread, 13 mm screw, pitch 0.87 - SCR BN TWSTOF FRS 2.0X13 NS Titanium Fixos 2.0 WS twist off screws Scr Bn Twstof Fr s 2.0x15 Ns - Sws15 - [id number] Start: 02-11-2018 Comment on above: Description: WS15 2. 0 major thread, 15 mm screw, pitch 0.87 - SCR BN TWSTOF FRS 2.0X 15 NS Titanium Fixos 2.0 WS twist off screws Clinical Notes 05-04-2021 to 06-11-2025 JOAN John - 06/07/2025 1:15 PM EDTBmitchell Rangel - 05/29/2025 1:40 PM Vu Bailey LPN - 04/18/2025 1:50 PM EDJOAN Ramirez - 03/01/2025 1:00 PM EDTPatient Instructions Note Date & Type Note Facility 06-11-2025 Note Entered by MILTON MONTOYA DO on June 11, 2025 07:37:34 EDT From: TONEY MONTOYA DO To: [facility] Sent: 06/11/2025 07:37:34 EDT Subject: Medication Management Submitted: Complete:dicyclomine (dicyclomine 20 mg oral tablet) Signed by TONEY MONTOYA DO 06/11/2025 07:37:00 EDT Approved with modifications: dicyclomine (DICYCLOMINE 20MG TAB) Take 1 tablet by mouth 4 times daily Qty: 120 tab(s) Days Supply: 30 Refills: 5 Substitutions Allowed Route To Pharmacy - [facility] --------- From: [facility] To: TONEY MONTOYA DO Sent: June 10, 2025 5:41:15 AM CDT Subject: Medication Management Due: June 11, 2025 12:18:16 AM CDT On Hold Pending Signature Dispensed Drug: dicyclomine (dicyclomine 20 mg oral tablet), Take 1 tablet by mouth 4 times daily Quantity: 120 tab(s) Days Supply: 30 Refills: 0 Substitutions Allowed Notes from Pharmacy: --------- [facility] 06-07-2025 History of Present illness Narrative [facility] [address] [place] [address] Patient: Lauro Pinto Sex: female : 1975 Age: 50 y.o. PCP: TONEY MONTOYA DO 06/07/2025 Lauro Pinto is here for a(n) 2 month follow up. Patient has had worsening back and knee pain after a recent fall. Chief Complaint Patient presents with Back Pain [...] sacroiliac injection with 70% relief that continues. Bilat SI joint injection 60% relief that continues. Preop pain was 5/10 now 2/10 continued relief. 03/30/2025 bilateral sacroiliac joint injections with 80% relief that continues. Pain scale before treatment: 6/10 Pain scale after treatment: 1-2/10 Back Pain This is a chronic (1993) problem. The current episode started more than 1 year ago. The problem occurs constantly. The problem has been gradually worsening since onset. The pain is present in the lumbar spine, sacro-iliac and gluteal. The quality of the pain is described as aching. The pain does not radiate. The pain is at a severity of 9/10 (pain can reach a 9/10 (especially when patient is working); currently 6/10 in clinic today). The pain is severe. Worse during: after working or prolonged standing. The symptoms are aggravated by sitting, standing, position, lying down, twisting and bending. Stiffness is present In the morning (getting up from lying position). Associated symptoms include leg pain (left knee can radiate down leg to foot) and weakness (BLE; 2 falls 05-31-2025 because legs gave out ). Pertinent negatives include no bladder incontinence, bowel incontinence, chest pain, fever, numbness or tingling. Risk factors include history of steroid use, [...] 02/06/2022 Performed by Zeeshan Perry MD at [facility] INJECTION BLOCK SACROILIAC JOINT Bilateral 03/30/2025 Performed by Zeeshan Perry MD at [facility] INJECTION BLOCK SACROILIAC JOINT Bilateral 11/17/2024 Performed by Zeeshan Perry MD at [facility] INJECTION BLOCK SACROILIAC JOINT Bilateral 08/11/2024 Performed by Zeeshan Perry MD at [facility] INJECTION BLOCK SACROILIAC JOINT Bilateral 07/09/2023 Performed by Zeeshan Perry MD at [facility] INJECTION BLOCK SACROILIAC JOINT Bilateral 08/07/2022 Performed by Zeeshan Perry MD at [facility] MEDIAL BRANCH NERVE BLOCK Bialteral L 3/4, 4/5 Medial Branhc Block X 1 Bilateral 05/07/2017 Performed by Zeeshan Perry MD at [facility] MEDIAL BRANCH NERVE BLOCK BILATERAL L3/4, 4/5 Bilateral 10/22/2017 Performed by Zeeshan Perry MD at [facility] KNEE ARTHROSCOPY W/ MENISCECTOMY Left 11/2022 OSTEOTOMY KELTON PROCEDURE METATARSAL Right 02/11/2018 Performed by Hector Watson DPM at [facility] RADIOFREQUENCY ABLATION SPINAL left L 4/5, 5/1 Left 05/15/2022 Performed by Zeeshan Perry MD at [facility] RADIOFREQUENCY ABLATION SPINAL right L 4/5,5/1 Right 04/24/2022 Performed by Zeeshan Perry MD at [facility] RADIOFREQUENCY ABLATION SPINAL: right L34 45 rfa Right 03/11/2018 Performed by Zeeshan Perry MD at [facility] SPINE SURGERY 09/06/2009 L5/S1 diskectomy and fusion THYROID LOBECTOMY TONSILLECTOMY TOTAL THYROIDECTOMY Bilateral TUBAL LIGATION UMBILICAL HERNIA REPAIR No Known Allergies Family History Problem Relation Age of Onset Diabetes Mother No Known Problems Father Colon cancer Maternal Grandmother Cancer Maternal Grandmother Social History Socioeconomic History Marital status: Single [...] on file Food Insecurity: No Food Insecurity (06/07/2025) Hunger Screening Food Insecurity - Worry: Never True Food Insecurity - Inability: Never True Transportation Needs: Not on file Physical Activity: Not on file Stress: Not on file Social Connections: Not on file Interpersonal Safety: Not on file Housing Instability: Not on file Review of Systems Constitutional: Negative. Negative for fever. HENT: Negative. Eyes: Negative. Respiratory: Negative. Cardiovascular: Negative. Negative for chest pain. Gastrointestinal: Negative. Negative for bowel incontinence. Genitourinary: Negative. Negative for bladder incontinence. Musculoskeletal: Positive for back pain. Skin: Bruising on left knee from recent fall Neurological: Positive for weakness (BLE; 2 falls 05-31-2025 because legs gave out ). Negative for tingling and numbness. Vital Signs: BP 111/76 (BP Site: Left Arm, BP Postition: Sitting) Pulse 92 Resp 18 Ht 185.4 cm (6' 1 ) Wt 136.1 kg (300 lb) LMP 05/23/2025 SpO2 100% BMI 39.58 kg/m Physical Exam: GENERAL - Healthy patient [...] dermatomal distributions. Straight Leg Raise is negative. Gait is normal. Assessment/Treatment Plan: Lauro was seen today for back pain. Diagnoses and all orders for this visit: Lumbosacral spondylosis without myelopathy - X-ray spine lumbar 2 or 3 views; Future Other orders - methylPREDNISolone (MEDROL, GEMMA,) 4 mg tablet; follow package directions Medrol dose pack With Regard to medication management, it is felt that the patient would benefit from the changes mentioned above. This should provide symptomatic pain relief as part of the comprehensive pain management strategy outlined. Risks, Benefits, Side effects, and possible interactions of these medications were reviewed and the medication agreement has been discussed, agreed upon, and signed. The patient understands compliance concerns and the requirement of pill counts and drug screens while taking medications prescribed by this clinic. Lumbar spine xray Imaging/Diagnostic Testing - It is felt that additional diagnostic testing is necessary to further evaluate the patients current pain pathology. For this reason, we will order additional imaging/diagnostic testing noted above. It is hopeful that this study will identify a significant pain generator that will be amenable to therapy. It is felt that this modality is necessary due to the severity and chronicity of symptoms and physical exam findings combined with the lack of recent imaging/diagnostic testing of the area. Follow up 1 month The medications I have prescribed have been [...] not opted for at this time: Lumbar medial branch block injection. Patient would like to proceed with the current outlined treatment plan before moving forward with any other options. The spine model was demonstrated and MRI was reviewed and used to explain the condition. Chronic conditions not treated during this visit that affected my overall medical decision making: Obesity OARRS: Reviewed. Scribe Statement: I, Zainab Robles CNA, scribed for and in the presence of JOAN JOHN who performed the above service. Zainab Robles CNA 06/07/25 1347 JOAN John 06/07/25 1415 documented in this encounter [facility] 06-04-2025 Note Entered by MILTON MONTOYA DO on June 04, 2025 07:37:41 EDT From: TONEY MONTOYA DO To: [place] [address] Sent: 06/04/2025 07:37:41 EDT Subject: Medication Management Submitted: Complete:mirtazapine (mirtazapine 30 mg oral tablet) Signed by TONEY MONTOYA DO 06/04/2025 07:37:00 EDT Approved with modifications: mirtazapine (Mirtazapine 30 MG Oral Tablet) TAKE 1 TABLET BY MOUTH ONCE DAILY AT BEDTIME Qty: 30 tab(s) Days Supply: 30 Refills: 5 Substitutions Allowed Route To Pharmacy - [place] [address] --------- From: [place] [address] To: TONEY MONTOYA DO Sent: June 03, 2025 5:41:18 AM CDT Subject: Medication Management Due: June 04, 2025 12:20:17 AM CDT On Hold Pending Signature Dispensed Drug: mirtazapine (mirtazapine 30 mg oral tablet), TAKE 1 TABLET BY MOUTH ONCE DAILY AT BEDTIME Quantity: 30 tab(s) Days Supply: 30 Refills: 0 Substitutions Allowed Notes from Pharmacy: --------- [facility] 05-29-2025 History of Present illness Narrative Reason for Appointment: Patient ID: Lauro Pinto is a 50 y.o. female who presents for Gynecologic Exam and Pre-op Visit Patient presents today for Pre Op/Annual appointment. Patient is scheduled to undergo Da Alison assisted Laparoscopic Hysterectomy, possible exploratory laparotomy, possible BSO, possible cystoscopy on 06-27-[address] Aguilar at [facility]. MEDICATIONS Current Outpatient Medications Medication Instructions citalopram [...] mass index (BMI) of 40.0 to 49.9 ([facility]) Papillary thyroid carcinoma (HCC) 07/2021 Post-surgical hypothyroidism Vitamin D deficiency, unspecified HISTORY PAST MEDICAL HISTORY SOCIAL HISTORY Past Medical History: Diagnosis Date Dietary counseling and surveillance Morbid obesity with body mass index (BMI) of 40.0 to 49.9 ([facility]) Papillary thyroid carcinoma (HCC) 07/2021 [...] nursing note reviewed. Exam conducted with a sports medicine specialist present. Vitals: Estimated body mass index is [...] at this time. Patient will undergo Da Laison assisted Laparoscopic Hysterectomy, possible exploratory laparotomy, possible BSO, possible cystoscopy on 06-27-25. Surgical consents were signed, mmc was reviewed, and patient is to proceed to [facility] OR. Follow Up: Patient is to follow up at 1 & 6 weeks post operative to assess proper healing and recovery from procedure. Documented by Lotus Bailey LPN on behalf of: Jorge Aguilar DO documented in this encounter [facility] 05-28-2025 Note - From: TONEY MONTOYA DO To: [facility] Clinical Pool ([facility]_[place]); Sent: 05/28/2025 12:54:45 EDT Subject: FW: Medication Management Due Date/Time: 05/29/2025 12:26:00 EDT Caller Name: LAURO PINTO; Caller Number: , --------- [facility] To: TONEY MONTOYA DO Sent: May 28, 2025 11:26:13 AM CDT Subject: Medication Management Due: May 29, 2025 12:02:02 AM CDT On Hold Pending Signature Dispensed Drug: LORazepam (LORazepam 0.5 mg oral tablet), TAKE 1 TABLET BY MOUTH THREE TIMES DAILY Quantity: 90 tab(s) Days Supply: 30 Refills: 0 Substitutions Allowed Notes from Pharmacy: --------- From: Mey Gutierrez To: [place] [address] Sent: 05/28/2025 13:25:06 EDT Subject: FW: Medication Management Not Approved: proposed to provider LORazepam (LORazepam 0.5 MG Oral Tablet) TAKE 1 TABLET BY MOUTH THREE TIMES DAILY Qty: 90 tab(s) Days Supply: 30 Refills: 0 Substitutions Allowed Route To [place] [address] Signed by Mey Gutierrez sent [facility] 05-12-2025 Note Entered by MILTON MONTOYA DO on May 12, 2025 11:34:27 EDT From: TONEY MONTOYA DO To: [place] [address] Sent: 05/12/2025 11:34:27 EDT Subject: Medication Management Submitted: Complete:deutetrabenazine (Austedo 6 mg oral tablet) Signed by TONEY MONTOYA DO 05/12/2025 11:34:00 EDT Approved deutetrabenazine (Austedo 6 MG Oral Tablet) Take 1 tablet by mouth twice daily with food Qty: 60 tab(s) Days Supply: 30 Refills: 0 Substitutions Allowed Route To [facility] - [place] [address] --------- From: [place] [address] To: TONEY MONTOYA DO Sent: May 12, 2025 9:03:43 AM CDT Subject: Medication Management Due: May 13, 2025 12:23:41 AM CDT On Hold Pending Signature Dispensed Drug: deutetrabenazine (Austedo 6 mg oral tablet), Take 1 tablet by mouth twice daily with food Quantity: 60 tab(s) Days Supply: 30 Refills: 0 Substitutions Allowed Notes from Pharmacy: --------- [facility] 04-30-2025 Note Entered by MILTON MONTOYA DO on April 30, 2025 11:41:27 EDT From: TONEY MONTOYA DO To: [facility] 1429 Sent: 04/30/2025 11:41:27 EDT Subject: Medication Management Submitted: Complete:citalopram (citalopram 20 mg oral tablet) Signed by TONEY MONTOYA DO 04/30/2025 11:41:00 EDT Approved with modifications: citalopram (Citalopram Hydrobromide 20 MG Oral Tablet) Take 1 tablet by mouth once daily Qty: 30 tab(s) Days Supply: 30 Refills: 5 Substitutions Allowed Route To Pharmacy - [place] [address] --------- From: [place] [address] To: TONEY MONTOYA DO Sent: April 30, 2025 10:03:45 AM CDT Subject: Medication Management Due: May 01, 2025 12:02:58 AM CDT On Hold Pending Signature Dispensed Drug: citalopram (citalopram 20 mg oral tablet), Take 1 tablet by mouth once daily Quantity: 30 tab(s) Days Supply: 30 Refills: 0 Substitutions Allowed Notes from Pharmacy: --------- [facility] 04-18-2025 History of Present illness Narrative Reason for Appointment: Patient ID: [...] mass index (BMI) of 40.0 to 49.9 [place] Papillary thyroid carcinoma (HCC) 07/2021 Post-surgical hypothyroidism Vitamin D deficiency, unspecified HISTORY PAST MEDICAL HISTORY SOCIAL HISTORY Past Medical History: Diagnosis Date Dietary counseling and surveillance Morbid obesity with body mass index (BMI) of 40.0 to 49.9 [place] Papillary thyroid carcinoma (HCC) 07/2021 left side [...] nursing note reviewed. Exam conducted with a sports medicine specialist present. Vitals: Estimated body mass index is [...] Jorge Aguilar DO documented in this encounter [facility] 03-08-2025 Note Entered by MILTON MONTOYA DO on March 08, 2025 10:58:59 EDT From: TONEY MONTOYA DO To: [place] [address] Sent: 03/08/2025 10:58:58 EDT Subject: Medication Management Submitted: Complete:cariprazine (Vraylar 6 mg oral capsule) Signed by TONEY MONTOYA DO 03/08/2025 10:58:00 EDT Approved with modifications: cariprazine (Vraylar 6 MG Oral Capsule) Take 1 capsule by mouth once daily Qty: 30 cap(s) Days Supply: 30 Refills: 2 Substitutions Allowed Route To Pharmacy - [place] [address] --------- From: [facility] To: TONEY MONTOYA DO Sent: March 08, 2025 9:53:19 AM CDT Subject: Medication Management Due: March 09, 2025 12:01:42 AM CDT On Hold Pending Signature Dispensed Drug: cariprazine (Vraylar 6 mg oral capsule), Take 1 capsule by mouth once daily Quantity: 30 cap(s) Days Supply: 30 Refills: 0 Substitutions Allowed Notes from Pharmacy: --------- [facility] 03-01-2025 History of Present illness Narrative [facility] [address] [place] [address] Patient: Lauro Pinto Sex: female : 1975 Age: 50 y.o. PCP: TONEY MONTOYA, DO 03/01/2025 Lauro Pinto is here for [...] 03/20/2022 Performed by Zeeshan Perry MD at [facility] INJECTION BLOCK NERVE MEDIAL BRANCH Bilat L 4/5,5/ Bilateral 02/06/2022 Performed by Zeeshan Perry MD at [facility] INJECTION BLOCK SACROILIAC JOINT Bilateral 11/17/2024 Performed by Zeeshan Perry MD at [facility] INJECTION BLOCK SACROILIAC JOINT Bilateral 08/11/2024 Performed by Zeeshan Perry MD at [facility] INJECTION BLOCK SACROILIAC JOINT Bilateral 07/09/2023 Performed by Zeeshan Perry MD at [facility] INJECTION BLOCK SACROILIAC JOINT Bilateral 08/07/2022 Performed by Zeeshan Perry MD at [facility] INJECTION MEDIAL BRANCH NERVE BLOCK Bialteral L 3/4, 4/5 Medial Branhc Block X 1 Bilateral 05/07/2017 Performed by Zeeshan Perry MD at [facility] INJECTION MEDIAL BRANCH NERVE BLOCK BILATERAL L3/4, 4/5 Bilateral 10/22/2017 Performed by Zeeshan Perry MD at [facility] KNEE ARTHROSCOPY W/ MENISCECTOMY Left 11/2022 OSTEOTOMY KELTON PROCEDURE METATARSAL Right 02/11/2018 Performed by Hector Watson DPM at [facility] RADIOFREQUENCY ABLATION SPINAL left L 4/5, 5/1 Left 05/15/2022 Performed by Zeeshan Perry MD at [facility] RADIOFREQUENCY ABLATION SPINAL right L 4/5,5/1 Right 04/24/2022 Performed by Zeeshan Perry MD at [facility] RADIOFREQUENCY ABLATION SPINAL: right L34 45 rfa Right 03/11/2018 Performed by Zeeshan Perry MD at [facility] SPINE SURGERY 09/06/2009 L5/S1 diskectomy [...] for these reasons. OARRS: Reviewed. Scribe Statement: IZainab CNA, scribed for and in the presence of JOAN JOHN who performed the above service. Zainab Robles CNA 03/01/25 1336 JOAN John 03/01/25 1342 documented in this encounter [employer] 03-01-2025 Instructions Zainab Robles CNA - 03/01/2025 [...] nearest emergency room. [facility] History of Present illness Narrative Images from the original note [...] 08/2022 follow up visit on 08/18/2022 on 200+05=702 mcg daily. no new lab yet. HPI: 01/2022 New patient sent from Dr. Edy Dominguez, the surgeon, with the surgery for her twice in [facility] in [place], first one in left lobe for thyroid [...] not have the pathology report left side. [id number], largest foci 0.8 cm. SUBJECTIVE: MEDICATIONS: Current [...] mass index (BMI) of 40.0 to 49.9 ([facility]) Papillary thyroid carcinoma (HCC) 07/2021 left side [...] (BMI) of 40.0 to 44.9 in adult ([facility]) Diet and exercise reviewed with the patient Follow up in about 6 months (around 08/30/2025). documented in this encounter [facility] 02-07-2025 Note Entered by MILTON MONTOYA DO on February 07, 2025 16:09:29 EDT From: TONEY MONTOYA DO To: [place] [address] Sent: 02/07/2025 16:09:29 EDT Subject: Medication Management Submitted: Complete:ferrous gluconate (ferrous gluconate 324 mg (38 mg elemental iron) oral tablet) Signed by TONEY MONTOYA DO 02/07/2025 16:09:00 EDT Approved with modifications: ferrous gluconate (Ferrous Gluconate 324 (38 Fe) MG Oral Tablet) Take 1 tablet by mouth once daily Qty: 100 tab(s) Days Supply: 100 Refills: 1 Substitutions Allowed Route To Pharmacy - [place] [address] --------- From: [facility] To: TONEY MONTOYA DO Sent: February 07, 2025 2:42:48 PM CDT Subject: Medication Management Due: February 08, 2025 12:58:21 PM CDT On Hold Pending Signature Dispensed Drug: ferrous gluconate (ferrous gluconate 324 mg (38 mg elemental iron) oral tablet), Take 1 tablet by mouth once daily Quantity: 100 tab(s) Days Supply: 100 Refills: 0 Substitutions Allowed Notes from Pharmacy: --------- [facility] 01-01-2025 Note Entered by MILTON MONTOYA DO on January 01, 2025 11:36:04 EDT From: TONEY MONTOYA DO To: [place] [address] Sent: 01/01/2025 11:36:03 EDT Subject: Medication Management Submitted: Complete:busPIRone (busPIRone 10 mg oral tablet) Signed by TONEY MONTOYA DO 01/01/2025 11:36:00 EDT Approved with modifications: busPIRone (busPIRone HCl 10 MG Oral Tablet) Take 1 tablet by mouth twice daily as needed Qty: 60 tab(s) Days Supply: 30 Refills: 1 Substitutions Allowed Route To Pharmacy - [place] [address] --------- From: [place] [address] To: TONEY MONTOYA DO Sent: January 01, 2025 10:01:56 AM CDT Subject: Medication Management Due: January 02, 2025 9:38:10 AM CDT On Hold Pending Signature Dispensed Drug: busPIRone (busPIRone 10 mg oral tablet), Take 1 tablet by mouth twice daily as needed Quantity: 60 tab(s) Days Supply: 30 Refills: 0 Substitutions Allowed Notes from Pharmacy: --------- [facility] 12-18-2024 Note Entered by MILTON MONTOYA DO on December 18, 2024 07:29:23 EDT From: TONEY MONTOYA DO To: [place] [address] Sent: 12/18/2024 07:29:23 EDT Subject: Medication Management [...] 5 Substitutions Allowed Route To Pharmacy - [facility] Approved with modifications: mirtazapine (Mirtazapine 30 MG Oral Tablet) TAKE 1 TABLET BY MOUTH ONCE DAILY AT BEDTIME Qty: 30 tab(s) Days Supply: 30 Refills: 5 Substitutions Allowed Route To Pharmacy - [place] [address] --------- From: [place] [address] To: TONEY MONTOYA DO Sent: December 17, [...] Refills: 0 Substitutions Allowed Notes from Pharmacy: --------- [facility] 11-30-2024 History of Present illness Narrative [facility] [address] [place] [address] Patient: Lauro Pinto Sex: female : 1975 [...] treatment: see above Pain scale after treatment: 10/16 Chief Complaint Patient presents with Back Pain [...] 03/20/2022 Performed by Zeeshan Perry MD at [facility] IN[facility]CTION BLOCK NERVE MEDIAL BRANCH Bilat L 4/5,5/ Bilateral 02/06/2022 Performed by Zeeshan Perry MD at [facility] INJECTION BLOCK SACROILIAC JOINT Bilateral 11/17/2024 Performed by Zeeshan Perry MD at [facility] INJECTION BLOCK SACROILIAC JOINT Bilateral 08/11/2024 Performed by Zeeshan Perry MD at [facility] INJECTION BLOCK SACROILIAC JOINT Bilateral 07/09/2023 Performed by Zeeshan Perry MD at [facility] INJECTION BLOCK SACROILIAC JOINT Bilateral 08/07/2022 Performed by Zeeshan Perry MD at [facility] MEDIAL BRANCH NERVE BLOCK Bialteral L 3/4, 4/5 Medial Branhc Block X 1 Bilateral 05/07/2017 Performed by Zeeshan Perry MD at [facility] MEDIAL BRANCH NERVE BLOCK BILATERAL L3/4, 4/5 Bilateral 10/22/2017 Performed by Zeeshan Perry MD at [facility] KNEE ARTHROSCOPY W/ MENISCECTOMY Left 11/2022 OSTEOTOMY KELTON PROCEDURE METATARSAL Right 02/11/2018 Performed by Hector Watson DPM at [facility] RADIOFREQUENCY ABLATION SPINAL left L 4/5, 5/1 Left 05/15/2022 Performed by Zeeshan Perry MD at [facility] RADIOFREQUENCY ABLATION SPINAL right L 4/5,5/1 Right 04/24/2022 Performed by Zeeshan Perry MD at [facility] RADIOFREQUENCY ABLATION SPINAL: right L34 45 rfa Right 03/11/2018 Performed by Zeeshan Perry MD at [facility] SPINE SURGERY 09/06/2009 L5/S1 diskectomy [...] performed the above service. Camelia Chakraborty RN 11/30/24 0924 JOAN John 11/30/24 0932 documented in this encounter [facility] 11-20-2024 Note Entered by MILTON MONTOYA DO on November 20, 2024 07:29:00 EDT From: TONEY MONTOYA DO To: [facility] Sent: 11/20/2024 07:29:00 EDT Subject: Medication Management Submitted: Complete:cariprazine (Vraylar 1.5 mg oral capsule) Signed by TONEY MONTOYA DO 11/20/2024 07:28:00 EDT Approved with modifications: cariprazine (Vraylar 1.5 MG Oral Capsule) Take 1 capsule by mouth once daily Qty: 30 cap(s) Days Supply: 30 Refills: 5 Substitutions Allowed Route To Pharmacy - [place] [address] --------- From: [place] [address] To: TONEY MONTOYA DO Sent: November 19, 2024 5:41:47 AM CDT Subject: Medication Management Due: November 20, 2024 12:27:06 AM CDT On Hold Pending Signature Dispensed Drug: cariprazine (Vraylar 1.5 mg oral capsule), Take 1 capsule by mouth once daily Quantity: 30 cap(s) Days Supply: 30 Refills: 0 Substitutions Allowed Notes from Pharmacy: --------- [facility] 11-06-2024 Note Entered by MILTON MONTOYA DO on November 06, 2024 11:01:24 EST From: TONEY MONTOYA DO To: [place] [address] Sent: 11/06/2024 11:01:24 EST Subject: Medication Management Submitted: Complete:citalopram (citalopram 20 mg oral tablet) Signed by TONEY MONTOYA DO 11/06/2024 11:01:00 EST Approved with modifications: citalopram (Citalopram Hydrobromide 20 MG Oral Tablet) Take 1 tablet by mouth once daily Qty: 30 tab(s) Days Supply: 30 Refills: 5 Substitutions Allowed Route To Pharmacy - [place] [address] --------- From: [facility] To: TONEY MONTOYA DO Sent: November 06, 2024 8:20:27 AM PLUMBING INSPECTOR Subject: Medication Management Due: November 07, 2024 12:02:49 AM PLUMBING INSPECTOR On Hold Pending Signature Dispensed Drug: citalopram (citalopram 20 mg oral tablet), Take 1 tablet by mouth once daily Quantity: 30 tab(s) Days Supply: 30 Refills: 0 Substitutions Allowed Notes from Pharmacy: --------- [facility] 11-01-2024 History of Present illness Narrative Reason for Appointment: Patient ID: Lauro Pinto is a 49 y.o. female who presents for Vaginal Bleeding and Pre-op Visit Patient presents today for Pre Op/Endometrial Biopsy appointment. Patient is scheduled to undergo Endometrial Ablation with Anya on 11/10/[address] Aguilar at [facility]. MEDICATIONS Current Outpatient Medications Medication Instructions Cariprazine [...] mass index (BMI) of 40.0 to 49.9 ([facility] Papillary thyroid carcinoma ([facility]) 07/2021 Post-surgical hypothyroidism ([facility]) Vitamin D deficiency, unspecified HISTORY PAST MEDICAL HISTORY SOCIAL HISTORY Past Medical History: Diagnosis Date Dietary counseling and surveillance Morbid obesity with body mass index (BMI) of 40.0 to 49.9 ([facility]) Papillary thyroid carcinoma ([facility]) 07/2021 left side Jul 2021, Completion sx November 2021 Post-surgical hypothyroidism ([facility]) Vitamin D deficiency, unspecified Social [...] nursing note reviewed. Exam conducted with a sports medicine specialist present. Vitals: Estimated body mass index is [...] reviewed, and patient is to proceed to [facility] OR. Follow Up: Patient is to follow up between 1-2 weeks post operative to assess proper healing and recovery from procedure. Documented by Lotus Bailey LPN on behalf of: Jorge Aguilar DO documented in this encounter [facility] 10-31-2024 Note Entered by MILTON MONTOYA DO on October 31, 2024 14:25:57 EST From: TONEY MONTOYA DO To: [place] [address] Sent: 10/31/2024 14:25:57 EST Subject: Medication Management Submitted: Complete:omeprazole (omeprazole 40 mg oral delayed release capsule) Signed by TONEY MONTOYA DO 10/31/2024 14:25:00 EST Approved with modifications: omeprazole (OMEPRAZOLE DR 40MG CAP) Take 1 capsule by mouth once daily Qty: 30 cap(s) Days Supply: 30 Refills: 5 Substitutions Allowed Route To Pharmacy - [place] [address] --------- From: [facility] To: TONEY MONTOYA DO Sent: October 31, 2024 12:02:15 PM PLUMBING INSPECTOR Subject: Medication Management Due: November 01, 2024 12:11:39 AM PLUMBING INSPECTOR On Hold Pending Signature Dispensed Drug: omeprazole (omeprazole 40 mg oral delayed release capsule), Take 1 capsule by mouth once daily Quantity: 30 cap(s) Days Supply: 30 Refills: 0 Substitutions Allowed Notes from Pharmacy: --------- [facility] 10-26-2024 History of Present illness Narrative [facility] [address] [place] [address] Patient: Lauro A Blair Sex: female : [...] BLOCK NERVE MEDIAL BRANCH Bilat L 12/09, 5/1 Bilateral 03/20/2022 Performed by Zeeshan Perry MD at [facility] INJECTION BLOCK NERVE MEDIAL BRANCH Bilat L 4/5,5/1 Bilateral 02/06/2022 Performed by Zeeshan Perry MD at [facility] INJECTION BLOCK SACROILIAC JOINT Bilateral 08/11/2024 Performed by Zeeshan Perry MD at [facility] INJECTION BLOCK SACROILIAC JOINT Bilateral 07/09/2023 Performed by Zeeshan Perry MD at [facility] INJECTION BLOCK SACROILIAC JOINT Bilateral 08/07/2022 Performed by Zeeshan Perry MD at [facility] MEDIAL BRANCH NERVE BLOCK Bialteral L 3/4, 4/5 Medial Branhc Block X 1 Bilateral 05/07/2017 Performed by Zeeshan Perry MD at [facility] MEDIAL BRANCH NERVE BLOCK BILATERAL L3/4, 4/5 Bilateral 10/22/2017 Performed by Zeeshan Perry MD at [facility] KNEE ARTHROSCOPY W/ MENISCECTOMY Left 11/2022 OSTEOTOMY KELTON PROCEDURE METATARSAL Right 02/11/2018 Performed by Hector Watson DPM at [facility] RADIOFREQUENCY ABLATION SPINAL left L 4/5, 5/1 Left 05/15/2022 Performed by Zeeshan Perry MD at [facility] RADIOFREQUENCY ABLATION SPINAL right L 4/5,5/1 Right 04/24/2022 Performed by Zeeshan Perry MD at [facility] RADIOFREQUENCY ABLATION SPINAL: right L34 45 rfa Right 03/11/2018 Performed by Zeeshan Perry MD at [facility] SPINE SURGERY 09/06/2009 L5/S1 diskectomy [...] who performed the above service. Provider Statement: IKYLER PA, personally performed the services described in the documentation, as scribed by Zainab Robles CNA in my presence, and it is both accurate and complete. Zainab Robles CNA 10/26/24 1434 JOAN John 10/31/24 1146 documented in this encounter [employer] 10-26-2024 Instructions Zainab Robles CNA - 10/26/2024 [...] nearest emergency room. [facility] Note Entered by MILTON MONTOYA DO on October 09, 2024 07:30:49 EST From: TONEY MONTOYA DO To: [facility] Sent: 10/09/2024 07:30:49 EST Subject: Medication Management Submitted: Complete:busPIRone (busPIRone 10 mg oral tablet) Signed by TONEY MONTOYA DO 10/09/2024 07:30:00 EST Approved with modifications: busPIRone (busPIRone HCl 10 MG Oral Tablet) Take 1 tablet by mouth twice daily as needed Qty: 60 tab(s) Days Supply: 30 Refills: 2 Substitutions Allowed Route To Pharmacy - [place] [address] --------- From: [place] [address] To: TONEY MONTOYA DO Sent: October 06, 2024 12:01:36 PM PLUMBING INSPECTOR Subject: Medication Management Due: October 07, 2024 12:04:38 AM PLUMBING INSPECTOR On Hold Pending Signature Dispensed Drug: busPIRone (busPIRone 10 mg oral tablet), Take 1 tablet by mouth twice daily as needed Quantity: 60 tab(s) Days Supply: 30 Refills: 0 Substitutions Allowed Notes from Pharmacy: --------- [facility] 09-19-2024 History of Present illness Narrative Reason for Appointment: Patient ID: [...] mass index (BMI) of 40.0 to 49.9 ([facility]) Papillary thyroid carcinoma ([facility]/HCC) 07/2021 Post-surgical hypothyroidism ([facility]) Vitamin D deficiency, unspecified HISTORY PAST MEDICAL HISTORY SOCIAL HISTORY Past Medical History: Diagnosis Date Dietary counseling and surveillance Morbid obesity with body mass index (BMI) of 40.0 to 49.9 ([facility]) Papillary thyroid carcinoma ([facility]/HCC) 07/2021 left side Jul 2021, Completion sx November 2021 Post-surgical hypothyroidism ([facility]) Vitamin D deficiency, unspecified Social [...] nursing note reviewed. Exam conducted with a sports medicine specialist present. Vitals: Estimated body mass index is [...] Jorge Aguilar DO documented in this encounter [facility] 09-11-2024 History of Present illness Narrative Lauro Pinto is a 49 [...] 08/2022 follow up visit on 08/18/2022 on 200+36=733 mcg daily. no new lab yet. HPI: 01/2022 New patient sent from Dr. Edy Dominguez, the surgeon, with the surgery for her twice in [facility] in [place], first one in left lobe for thyroid [...] not have the pathology report left side. [id number], largest foci 0.8 cm. SUBJECTIVE: MEDICATIONS: Current [...] months (around 12/10/2024). documented in this encounter [facility] 09-07-2024 History of Present illness Narrative [facility] [address] [place] [address] Patient: Lauro Pinto Sex: female : 1975 [...] duration: see above Pain scale after treatment: 2-3/10 Chief Complaint Patient presents with Back Pain [...] 03/20/2022 Performed by Zeeshan Perry MD at [facility] INJECTION BLOCK NERVE MEDIAL BRANCH Bilat L 4/5,5/ Bilateral 02/06/2022 Performed by Zeeshan Perry MD at [facility] INJECTION BLOCK SACROILIAC JOINT Bilateral 08/11/2024 Performed by Zeeshan Perry MD at [facility] INJECTION BLOCK SACROILIAC JOINT Bilateral 07/09/2023 Performed by Zeeshan Perry MD at [facility] INJECTION BLOCK SACROILIAC JOINT Bilateral 08/07/2022 Performed by Zeeshan Perry MD at [facility] INJECTION MEDIAL BRANCH NERVE BLOCK Bialteral L 3/4, 4/5 Medial Branhc Block X 1 Bilateral 05/07/2017 Performed by Zeeshan Perry MD at [facility] INJECTION MEDIAL BRANCH NERVE BLOCK BILATERAL L3/4, 4/5 Bilateral 10/22/2017 Performed by Zeeshan Perry MD at [facility] KNEE ARTHROSCOPY W/ MENISCECTOMY Left 11/2022 OSTEOTOMY KELTON PROCEDURE METATARSAL Right 02/11/2018 Performed by Hector Watson DPM at [facility] RADIOFREQUENCY ABLATION SPINAL left L 4/5, 5/ Left 05/15/2022 Performed by Zeeshan Perry MD at [facility] RADIOFREQUENCY ABLATION SPINAL right L 4/5,5/ Right 04/24/2022 Performed by Zeeshan Perry MD at [facility] RADIOFREQUENCY ABLATION SPINAL: right L34 45 rfa Right 03/11/2018 Performed by Zeeshan Perry MD at [facility] SPINE SURGERY 09/06/2009 L5/S1 diskectomy [...] JOHN by Zainab Robles CNA. Provider Statement: KYLER Hunt PA, personally performed the services described in the documentation, as scribed by Zainab Robles CNA in my presence, and it is both accurate and complete. Zainab Robles CNA 09/07/24 1507 documented in this encounter [facility] 08-09-2024 Miscellaneous Notes Pt calls [...] procedure. PVU noted documented in this encounter [facility] 08-09-2024 Telephone encounter Note Pt [...] if she can proceed with procedure. PVU [facility] 08-09-2024 Telephone encounter Note noted [facility] 07-27-2024 Note [id number] [facility] 07-25-2024 Note [facility] SURGERY Clinical Discharge Summary PERSON INFORMATION Name LAURO PINTO Age 49 Years 1975 Sex FEMALE Language Luxembourgish PCP TONEY MONTOYA DO Marital Status Single [facility] Service Ambulatory Surgery Acct# Arrival 07/25/2024 06:22:59 Visit Reason SURGERY - EGD AND COLONOSCOPY - ANEMIA AND FAMILY HX COLON CANCER Acuity LOS 019 02:30 Address: [address] [place] [id number] Comment: PROVIDER INFORMATION VITALS INFORMATION Vital Sign [...] Follow up: With: Address: When: Korey Ford [address] [place] [address], [place] [address] Business (1) , only if needed With: Address: When: TONEY MONTOYA DIAGNOSIS 1:Microcytic anemia Comment: PHYS DOC NOTES [facility] 07-07-2024 Note Entered by MILTON MONTOYA DO on July 07, 2024 16:49:08 EDT From: TONEY MONTOYA DO To: [facility] Sent: 07/07/2024 16:49:08 EDT Subject: Medication Management Submitted: Complete:amitriptyline (amitriptyline 100 mg oral tablet) Signed by TONEY MONTOYA DO 07/07/2024 16:49:00 EDT Approved with modifications: amitriptyline (Amitriptyline HCl 100 MG Oral Tablet) TAKE 1 TABLET BY MOUTH ONCE DAILY AT BEDTIME Qty: 30 tab(s) Days Supply: 30 Refills: 5 Substitutions Allowed Route To Pharmacy - [facility] 1429 --------- From: [facility] To: TONEY MONTOYA DO Sent: July 07, 2024 4:41:06 AM CDT Subject: Medication Management Due: July 08, 2024 12:19:20 AM CDT On Hold Pending Signature Dispensed Drug: amitriptyline (amitriptyline 100 mg oral tablet), TAKE 1 TABLET BY MOUTH ONCE DAILY AT BEDTIME Quantity: 30 tab(s) Days Supply: 30 Refills: 0 Substitutions Allowed Notes from Pharmacy: --------- [facility] 05-29-2024 Miscellaneous Notes Insurance called [...] came back approved. documented in this encounter [facility] 05-29-2024 Telephone encounter Note Insurance called requesting further clinical information regarding procedure that was requested. They stated Case not meeting criteria for requested procedure because: The notes do not show that the previous injection met requirements for 50% and 3 months duration of relief. How do you want to proceed? [facility] 05-29-2024 Telephone encounter Note Chart please [facility] 05-29-2024 Telephone encounter Note Please call pt and ask how much relief she had after SI injection last year. I can do appeal if she had greater than 50%. [facility] 05-29-2024 Telephone encounter Note Called patient and she reported that 30% was a mistake. She claims she received at least 50% temporary relief. [facility] 05-29-2024 Telephone encounter Note May [...] that repeat SI injection is medically necessary. [facility] 05-29-2024 Telephone encounter Note Date of service changed for patient. Could not change date of service with insurance so a new authorization needed to be submitted. New auth is pending further medical review. Insurance states The notes do not show Low back pain below L5 without radiculopathy. Clinicals have been submitted. Waiting response from insurance. [facility] 05-29-2024 Telephone encounter Note Auth came back approved. [facility] 05-18-2024 History of Present illness Narrative [facility] [address] [place] [address] Patient: Lauro Pinto Sex: female : 1975 [...] 03/20/2022 Performed by Zeeshan Perry MD at [facility] INJECTION BLOCK NERVE MEDIAL BRANCH Bilat L 4/5,5/1 Bilateral 02/06/2022 Performed by Zeeshan Perry MD at [facility] INJECTION BLOCK SACROILIAC JOINT Bilateral 07/09/2023 Performed by Zeeshan Perry MD at [facility] INJECTION BLOCK SACROILIAC JOINT Bilateral 08/07/2022 Performed by Zeeshan Perry MD at [facility] MEDIAL BRANCH NERVE BLOCK Bialteral L 3/4, 4/5 Medial Branhc Block X 1 Bilateral 05/07/2017 Performed by Zeeshan Perry MD at [facility] MEDIAL BRANCH NERVE BLOCK BILATERAL L3/4, 4/5 Bilateral 10/22/2017 Performed by Zeeshan Perry MD at [facility] KNEE ARTHROSCOPY W/ MENISCECTOMY Left 11/2022 OSTEOTOMY KELTON PROCEDURE METATARSAL Right 02/11/2018 Performed by Hector Watson DPM at [facility] RADIOFREQUENCY ABLATION SPINAL left L 4/5, 5/1 Left 05/15/2022 Performed by Zeeshan Perry MD at [facility] RADIOFREQUENCY ABLATION SPINAL right L 4/5,5/1 Right 04/24/2022 Performed by Zeeshan Perry MD at [facility] RADIOFREQUENCY ABLATION SPINAL: right L34 45 rfa Right 03/11/2018 Performed by Zeeshan Perry MD at [facility] SPINE SURGERY 09/06/2009 L5/S1 diskectomy [...] John 05/18/24 1340 documented in this encounter [employer] 05-18-2024 Instructions Zainab RoblesSALLYA - 05/18/2024 10:45 AM EDT Facet Injection [...] nearest emergency room. documented in this encounter [facility] 12-05-2021 Note Send Summary: Discharge Summary Providers: Provider RoleProvider Name AttendingEdy Dominguez ReferringEdy Dominguez Charles Note Recipients: Toney Montoya MD - [id number] [] Edy Dominguez MD Discharge: Summary: Admission [...] Last Updated: 05-Dec-2021 07:11 by Edy Dominguez) [facility] [place] PROCEDURE DETAILS Preoperative Diagnosis: Follicular variant papillary thyroid cancer Postoperative Diagnosis: Follicular variant papillary thyroid cancer Surgeon: Edy Dominguez MD Resident/Fellow/Other Weed Thinner: Alexey Procedure: 1. Completion right thyroidectomy with [...] was identified, isolated, clipped, and cut. A [place] was placed on the superior pole being [...] Last Updated: 04-Dec-2021 09:55 by Edy Dominguez) [facility] [place]-04[place]21 Note History of Present I llness: /Lactating: Are You no Are You Currently Breastfeedingno History Present Illness: Reason for surgery: Thyroid cancer - completion thyroidectomy HPI: Surgery: Completion Right Thyroidectomy Name: Lauro Pinto ([id number]) Surgeon: Edy Dominguez MD Age: 46 Date [...] the note. I personally evaluated the patient [id number] Electronic Signatures: Modesto Blackburn (Resident)) (Signed 04-Dec-2021 04:52) Authored: History of Present Illness, Allergies, Home Medication Review, Impression/Procedure, ERAS, Physical Exam, Consent, Note Completion Edy Dominguez) (Signed 04-Dec-2021 05:52) Authored: History of Present Illness, Note Completion Co-Signer: History of Present Illness, Allergies, Home Medication Review, Impression/Procedure, ERAS, Physical Exam, Consent, Note Completion Last Updated: 04-Dec-2021 05:52 by Edy Dominguez) [facility] [place]-16-2021 Evaluation note Encounter Date Diagnosis Assessment Notes Aug, Cough (ICD-10 - R05.9) Aug, COVID-19 (ICD-10 - U07.1) Drink plenty fluids, get plenty of rest. Continue home medications as prescribed. Use the albuterol inhaler as prescribed as needed for cough or shortness of breath. Follow-up with your family physician if no improvement in 2 to 3 days [facility] Other 11-05-2021 NoteSend Summary: Discharge Summary Providers: [...] Completion Last Updated: 11-Jul-2021 06:09 by Edy Dominguez)[facility] [place]10-2021 NotePROCEDURE DETAILS Preoperative Diagnosis: Left thyroid nodule Postoperative Diagnosis: Left thyroid nodule Surgeon: Edy Dominguez Resident/Fellow/Other Weed Thinner: Juan Becerra Procedure: 1. Left hemithyroidectomy with [...] was identified, isolated, clipped, and cut. A [place] was placed on the superior pole being [...] Completion Last Updated: 10-Jul-2021 13:54 by Edy Dominguez)[facility] 07-10-2021 NoteHistory & Physical [...] the note. I personally evaluated the patient [id number] Electronic Signatures: Juan Becerra (Resident)) (Signed 10-Jul-2021 07:14) Authored: History & Physical Reviewed, ERAS, Consent, Note Completion Edy Dominguez) (Signed 10-Jul-2021 08:58) Authored: Note Completion Co-Signer: History & Physical Reviewed, ERAS, Consent, Note Completion Last Updated: 10-Jul-2021 08:58 by Edy Dominguez)[facility] [place]-07-2021 History of Present [...] morning. She has not developed any symptoms XM-Mznkvdnjljzerx-Uhcxwgvr Work Phone: [phone]) 139-589608-29-2021 History of Present illness Narrative* 46-year-old female [...] social alcohol use. She is on disability HM-Wncasygqzojjdy-Pcrrdclo Work Phone: Evaluation noteNo assessment information available [facility] Work Phone: Evaluation note* Diagnosis Lumbosacral spondylosis without myelopathy- Primary documented in this encounter [facility]* Diagnosis Postprocedural hypothyroidism Postsurgical hypothyroidism Malignant neoplasm of thyroid gland (CMS-HCC) Malignant neoplasm of thyroid gland [facility] Diagnosis Postoperative hypothyroidism (CMS/HCC)- Primary Postsurgical hypothyroidism Papillary thyroid carcinoma (CMS/HCC) Vitamin D deficiency Encounter for dietary consultation Class 3 severe obesity due to excess calories without serious comorbidity with body mass index (BMI) of 40.0 to 44.9 in adult (CMS/HCC) documented in this encounter [facility]* Diagnosis Dysfunctional uterine bleeding Other disorder of menstruation and other abnormal bleeding from female genital tract Iron deficiency anemia, unspecified iron deficiency anemia type documented in this encounter [facility]* Diagnosis Disorder of sacrum- Primary Disorders of sacrum Disorder of sacrum- Primary Disorders of sacrum Disorder of sacrum Disorders of sacrum [facility] Diagnosis Disorder of sacrum- Primary Disorders of sacrum Disorder of sacrum- Primary Disorders of sacrum Disorder of sacrum Disorders of sacrum documented in this encounter [facility]* Diagnosis Dysfunctional uterine bleeding Other disorder of menstruation and other abnormal bleeding from female genital tract Pre-operative exam Unspecified pre-operative examination documented in this encounter [facility]* Diagnosis Lumbar spondylosis- Primary Lumbosacral spondylosis without myelopathy documented in this encounter [facility]* Diagnosis Postoperative hypothyroidism- Primary Postsurgical hypothyroidism Papillary thyroid carcinoma (HCC) Vitamin D deficiency Encounter for dietary consultation Class 3 severe obesity due to excess calories without serious comorbidity with body mass index (BMI) of 40.0 to 44.9 in adult ([facility]) documented in this encounter [facility]* Diagnosis Disorder of sacrum- Primary Disorders of sacrum Disorder of sacrum- Primary Disorders of sacrum Disorder of sacrum Disorders of sacrum documented in this encounter [facility]* Diagnosis Dysfunctional uterine bleeding Other disorder of menstruation and other abnormal bleeding from female genital tract documented in this encounter [facility]* Diagnosis Pre-op examination Menorrhagia with regular cycle Pelvic pain Dysmenorrhea Dyspareunia in female Well woman exam with routine gynecological exam Routine gynecological examination Breast cancer screening by mammogram documented in this encounter [facility]* Diagnosis Lumbosacral spondylosis without myelopathy- Primary documented in this encounter [facility] general Narrative - Reported* Type Description Date Medical History heartburn Medical History pulmonary embolism Surgical History tonsillectomy Surgical History umbilical hernia repair Surgical History appendectomy Surgical History tubal ligation Surgical History back surgery x2 Surgical History right foot x5 Hospitalization History see above [facility] Other History of Present illness Narrative* 46-year-old [...] has not noticed any change in symptoms LV-Ezfmtuqtsffgnw-Meenayrx Work Phone: History of Present illness NarrativePatient presents today after hemithyroidectomy. Final pathology pending. Doing well since her surgery. No issues with voice or ejcynbrfhqYD-Kftingwzvdhwik-Fvbvkuev Work Phone: History of Present illness NarrativePatient presents today to discuss completion thyroidectomy. 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 She has been doing well and has not had any significant changes. No issues with voice or ctxqxoghirCP-Utbdnjmkteihtd-Ctavupjw SJ[address] Work Phone: History of Present illness NarrativePatient presents today for follow up after completion thyroidectomy. Pathology after initial surgery showed multifocal carcinoma. No cancer identified on completion. She has been doing well No issueswith voice or skrazvwtofOE-Apmotheucwlejk-Xwejkytn Work Phone: InstructionsNot on filedocumented in this [...] operating room: INJECTION BLOCK SACROILIAC JOINT Kyler Carvajal PA [address] [place] [address] Referral ID Status Reason Start Date Expiration Date V isits Requested Visits Authorized [id number] Pending Review 05/18/2024 05/18/2025 1 1 Additional Source Comments INFORMATION SOURCE (unrecogn ized section and content) DATE CREATED AUTHOR 03/02/2018 [facility] DATE CREATED AUTHOR AUTHOR'S ORGANIZ ATION 10/03/2020 [facility] DATE CREATED AUTHOR AUTHOR'S ORGANIZ ATION 12/13/2021 [facility] DATE CREATED AUTHOR AUTHOR'S ORGANIZ ATION 12/21/2021 [facility] DATE CREATED AUTHOR AUTHOR'S ORGANIZ ATION 03/27/2022 [employer] DATE CREATED AUTHOR AUTHOR'S ORGANIZ ATION 11/15/2024 [facility] DATE CREATED AUTHOR AUTHOR'S ORGANIZ ATION 05/30/2025 [facility] EPIC DATE CREATED AUTHOR AUTHOR'S ORGANIZ ATION 06/12/[address] [facility] DATE CREATED AUTHOR AUTHOR'S ORGANIZ ATION 06/13/2025 [facility] REASON FOR VISIT (unrecogniz ed section and [...] July 25, 2024 End: July 25, 2024 [employer] Relationship Specialty Start Date End Date Toney Montoya DO PCP - General Family Medicine 09/13/20 [employer] Relationship Specialty Start Date End Date Toney Montoya DO PCP - General Family Medicine 09/13/20 [employer] Relationship Specialty Start Date End Date Toney Montoya MD [address] [place] [id number] PCP - General Family Medicine 08/09/24 [employer] Relationship Specialty Start Date End Date Toney Montoya MD [address] [place] [address] PCP - General Family Medicine 08/09/24 [employer] Relationship Specialty Start Date End Date Toney Montoya MD [address] [place] [address] PCP - General Family Medicine 08/09/24 [employer] Relationship Specialty Start Date End Date Toney Montoya DO [address] [place] [address] PCP - General Family Medicine 09/13/20 [employer] Relationship Specialty Start Date End Date Toney Montoya DO PCP - General Family Medicine 09/13/20 [employer] Relationship Specialty Start Date End Date Toney Montoya DO PCP - General Family Medicine 09/13/20 [employer] Relationship Specialty Start Date End Date Toney Montoya DO PCP - General Family Medicine 09/13/20 [employer] Relationship Specialty Start Date End Date Toney Montoya MD [address] [place] [address] PCP - [facility] 08/09/24 Team Status: Inactive Member Role Status Dates Sofiya Cole MD Primary Care Provider Active Start: November 01, 2024 End: November 01, 2024 Jorge Aguilar DO Attending Provider Active Start : November 01, 2024 End: November 01, 2024 [employer] Relationship Specialty Start Date End Date Toney Montoya MD [address] [place] [address] PCP - [facility] Family Medicine 08/09/24 Team Status: Inactive Member Role Status Dates Jorge Aguilar DO Attending Provider Active Start : November 10, 2024 End: November 10, 2024 [employer] Relationship Specialty Start Date End Date Toney Montoya DO PCP - General Family Medicine 09/13/20 [employer] Relationship Specialty Start Date End Date Toney Montoya MD [address] [place] [address] PCP - General Family Medicine 08/09/24 [employer] Relationship Specialty Start Date End Date Toney Montoya MD [address] [place] [address] PCP - General Family Medicine 08/09/24 [employer] Relationship Specialty Start Date End Date Toney Montoya MD [address] [place] [address] PCP - General Family Medicine 08/09/24 [employer] Relationship Specialty Start Date End Date Toney Montoya MD [address] [place] [address] PCP - General Family Medicine 08/09/24 [employer] Relationship Specialty Start Date End Date Toney Montoya MD [address] [place] [address] PCP - General Family Medicine 08/09/24 [employer] Relationship Specialty Start Date End Date Toney Montoya DO PCP - General Family Medicine 09/13/20 Goals (unrecognized section and content) Goals may [...] BE BASED ON THE PRIMARY CLINICAL RECORDS. [employer] [facility]. provides no warranty or guarantee of the accuracy or completeness of information in this document.
[2025-06-14 14:09] LABS: Hematocrit 44.7 % (36.0-48.0); Hemoglobin 14.8 g/dL (12.0-16.0); Immature Granulocytes Abs Auto 0.03 10^3/uL (0.00-0.03); Immature Granulocytes Pct Auto 0.3 % (0.0-0.5); Lymphocytes Absolute Auto 1.0 10^3/uL (1.2-3.8); Mean Corpuscular HGB Conc 33.1 g/dL (29.9-35.2); Mean Corpuscular Hemoglobin 29.8 pg (26.7-34.0); Mean Corpuscular Volume 89.9 fL (81.0-99.0); Platelet Count 266 10^3/uL (150-450); Red Blood Count 4.97 10^6/uL (4.20-5.40); White Blood Count 9.4 10^3/uL (4.0-11.0)
[2025-06-14 14:36] LABS: Alanine Aminotransferase 8 U/L (14-59); Albumin Globulin Ratio 0.9; Albumin Level 3.7 g/dL (3.4-5.0); Alkaline Phosphatase 59 U/L (46-116); Anion Gap 13.9; Aspartate Amino Transferase 9 U/L (15-37); Blood Urea Nitrogen 16.0 mg/dL (7.0-18.0); Calcium 9.1 mg/dL (8.5-10.1); Carbon Dioxide 26.9 mmol/L (21.0-32.0); Chloride 103 mmol/L (98-107); Estimated GFR (African America >60 (>=60 mL/min/1.73m^2); Estimated GFR (Non-African Ame >60 (>=60 mL/min/1.73m^2); Globulin 4.0 g/dL; Glucose 118 mg/dL (74-106); Potassium 4.8 mmol/L (3.5-5.1); Sodium 139 mmol/L (136-145); Total Protein 7.7 g/dL (6.4-8.2)
[2025-06-14 14:59] LABS: INR 1.06; Partial Thromboplastin Time 25.4 sec (22.3-36.2); Prothrombin Time 11.2 sec (9.0-11.6)
== END 2025-06-14 13:25 | disposition home or self-care (01) ==
LOC: PST 13:25
PROVIDERS: PCP Family Medicine; Visit Provider Obstetrics & Gynecology
DX: Z01.810 Encounter for preprocedural cardiovascular examination (principal); Z01.812 Encounter for preprocedural laboratory examination; N93.8 Other specified abnormal uterine and vaginal bleeding; N92.0 Excessive and frequent menstruation with regular cycle; N94.10 Unspecified dyspareunia; N94.6 Dysmenorrhea, unspecified; R10.30 Lower abdominal pain, unspecified
CPT/HCPCS: 80048; 80076; 85025; 85610; 85730; 86850; 86900; 86901; 93005

== ENCOUNTER 2025-06-27 06:14 | Day surgery (SDC) | payer MEDICARE, MEDICAID, SELFPAY ==
[2025-06-14 13:57] VITALS: BP 123/84; PULSE 87; TEMP 36.3; O2SAT 100; BMI 39.1
--- OUTSIDE RECORDS SUMMARY | 2025-06-26 10:33 | XMS_ITS | Encounter Summary ---
Author Organization [facility] tem Address [id number] [address] [place] [address] Care Team Providers Care Poultry Cleaner Name Role Phone Toney Park DO Primary Care Provider [phone] Encounter Details DateTypeDepartmentCare Team (Latest Contact Info)Hobhprocqps29/21/2025 10:33 AM EDT - 06/26/2025 11:59 PM EDTHospital Encounter [facility] - Ultrasound [address] [place] [address] Abnormal mammogram Discharge Disposition: Home Social History Tobacco UseTypesPacks/DayYears UsedDateSmoking Tobacco: NeverSmokeless Tobacco: NeverAlcohol UseStandard Drinks/WeekCommentsYes0 (1 standard drink = 0.6 oz pure alcohol)SociallyPHQ-2AnswerDate RecordedTotal Khuyo2041ChildcareAnswer Date RuwajfvoMoypqgpiiQuwipjv05/10/2019EmploymentAnswerDate RecordedEmployment Zytkzmb4102/13/2019Hunger ScreeningAnswerDate RecordedWithin the past 12 months we worried whether our food would run out before we got money to buy more.Never True06/07/2025Within the past 12 months the food we bought just didn't last and we didn't have money to get more.Never True06/07/2025Purpose - LifeAnswerDate RecordedPurpose and direction in rjyqZazhtzi88/21/2021CommentsNoSex and Gender InformationValueDate RecordedSex Assigned at BirthNot on fileLegal Sex Bnwynz5604/11/2015 11:40 AM EDTGender IdentityNot on fileSexual OrientationNot [...] Plan of Treatment DateTypeDepartmentCare Team (Latest Contact Info)Djcifkchvnl55/20/2025 1:00 PM ESTOffice Visit [facility] [address] [place] [address] Eros Marr PA [address] [place] [address] documented as of this encounter Procedures Procedure NamePriorityDate/TimeAssociated DiagnosisCommentsUS BREAST RT LIMITED Kmryhhw9706/26/2025 11:14 AM EDT Abnormal mammogram documented in this encounter Results * Ultrasound breast limited right (06/26/2025 11:14 AM EDT)Anatomical Region LateralityModalityBreastRightUltrasoundSpecimen (Source)Anatomical Location / LateralityCollection Method / VolumeCollection TimeReceived Time06/26/2025 11:21 AM EDT Narrative 06/26/2025 11:24 AM EDT MALI PINTO 1975 [id number] EXAM: US BREAST RT LIMITED, 06/26/2025 10:58 [...] Betancur DO - 06/26/2025 MALI PINTO 1975 [id number] EXAM: US BREAST RT LIMITED, 06/26/2025 10:58 [...] MemberRelationshipSpecialtyStart DateEnd Date Toney Park DO [address] [place] [address] PCP - GeneralFamily Nrdkvzrm28/21/25documented as of this encounter
[2025-06-27] VITALS (24 sets, daily range): BP systolic 105–152; BP diastolic 68–118; PULSE 59–89; TEMP 36.1–36.9; O2SAT 86–98; BMI 38.9
--- OUTSIDE RECORDS SUMMARY | 2025-06-27 06:16 | XMS_ITS | Clinical Summary ---
Author Organization [facility] Address [address] [place] [address] Phone Care Team Providers Care Hand Surgeon Name Role Phone Toney Park DO Primary Care Provider [phone] Social History Tobacco UseTypesPacks/DayYears UsedDateSmoking Tobacco: Never Assessed CommentsUnknownSex and Gender InformationValueDate RecordedSex Assigned at Not on fileLegal WkfKtxsqx25/26/2022 4:58 AM ESTGender IdentityNot on fileSexual OrientationNot on file Last Filed Vital Signs Vital SignReadingTime TakenCommentsBlood Oolmqbce524/8302 9:32 AM EST Pulse--Gupvtuzipte73 ??C (96.8 ??F)12/19/2021 4:25 PM EDTRespiratory Rate-- Oxygen Saturation--Inhaled Oxygen Concentration--Lxbcly247 kg (343 lb 9.6 oz) 12/19/2021 4:25 PM SKDIddyge372.4 cm (6' 1 )12/19/2021 4:25 PM EDTBody Mass Index45.33012/19/2021 4:25 PM EDT Plan of Treatment Not on file Care Teams Team MemberRelationshipSpecialtyStart DateEnd Date Toney Park DO PCP - General11/04/21
--- OUTSIDE RECORDS SUMMARY | 2025-06-27 06:16 | XMS_ITS | Encounter Summary ---
[facility] tem Address [facility] [id number] [address] [place] [address] Care Team Providers Care Radio Time Salesperson Name Role Phone Toney Park DO Primary Care Provider Encounter Details DateTypeDepartmentCare Team (Latest Contact Info)Xpdchgrmhut80/21/2025Travel Social History Tobacco UseTypesPacks/DayYears UsedDateSmoking Tobacco: NeverSmokeless Tobacco: NeverAlcohol UseStandard Drinks/WeekCommentsYes0 (1 standard drink = 0.6 oz pure alcohol)SociallyPHQ-2AnswerDate RecordedTotal Unzat2801ChildcareAnswer Date TsiiuoizUbojptbtlBzateuf73/10/2019EmploymentAnswerDate RecordedEmployment Fqkjqge2902/13/2019Hunger ScreeningAnswerDate RecordedWithin the past 12 months we worried whether our food would run out before we got money to buy more.Never True06/07/2025Within the past 12 months the food we bought just didn't last and we didn't have money to get more.Never True06/07/2025Purpose - LifeAnswerDate RecordedPurpose and direction in qxxcUotnppw95/21/2021CommentsNoSex and Gender InformationValueDate RecordedSex Assigned at BirthNot on fileLegal Sex Txhwbe9204/11/2015 11:40 AM EDTGender IdentityNot on fileSexual OrientationNot on filedocumented as of this encounter Plan of Treatment DateTypeDepartmentCare Team (Latest Contact Info)Fpourtejjtq74/20/2025 1:00 PM ESTOffice Visit [facility] [address] [place] [address] Eros Marr, PA [address] [place] [address] documented as of this encounter Visit Diagnoses Not on filedocumented in this encounter Additional Health Concerns AssessmentNoted TimePHQ-9 Depression Total Score: 9:57 AM EDT documented as of this encounter Care Teams Team MemberRelationshipSpecialtyStart DateEnd Date Toney Park DO [address] [place] [address] PCP - GeneralFamily Etftfivg21/21/25documented as of this encounter
--- OUTSIDE RECORDS SUMMARY | 2025-06-27 06:17 | XMS_ITS | Encounter Summary ---
Author Organization [facility] Address [address] [place] [address] Care Team Providers Care Industrial Tractor Driver Name Role Phone House, Toney Melara MD Primary Care Provider [phone] Encounter Details DateTypeDepartmentCare Team (Latest Contact Info)Omrvgxtblcb98/09/2025linisync Result Encounter [facility] Unsolicited Isai Aguilar DO [address] [facility] [address] Nuris Cristina, [facility] Social History Tobacco UseTypesPacks/DayYears UsedDateSmoking Tobacco: NeverSmokeless Tobacco: NeverCommentsNoSex and Gender InformationValueDate RecordedSex Assigned at BirthNot on fileLegal SgtKlrnwe45/15/2023 7:23 PM EDTGender IdentityNot on fileSexual OrientationNot on filedocumented as of this encounter Plan of Treatment DateTypeDepartmentCare Team (Latest Contact Info)Eeiwqtwpkvx03/29/2025 2:30 PM EDTOffice Visit [facility]ENDO[facility] [address] [place] [address] [place] [address] Lindsey Collier PA [address] [facility] [facility] [address] [place], [place] [address] 08/08/2025 2:30 PM ESTOffice Visit MAZIN MENDOZA [address] [place] [address] [place] [address] Lindsey Collier, PA [address] [facility] [place], [facility] 08/22/2025 1:20 PM ESTOffice Visit [facility] [address] [place] [address] Thi Stephens MD [address] [place] [address] documented as of this encounter Procedures Procedure NamePriorityDate/TimeAssociated DiagnosisCommentsSRMCOH PROTHROMBIN TIME INR W/O ZFYCTfsxdse46/09/2025 2:00 PM EDT HMHP LIVER ZEGIQPbopukd94/09/2025 2:00 PM EDT C[facility] JNSWIuepfif77/09/2025 2:00 PM EDT ALL TYPE AND ESSJTQFvitqpc15/09/2025 2:00 PM EDT ALL CBC WITH AUTO BNBCRnfmoil99/09/2025 2:00 PM EDT ALL BASIC METABOLIC UTVSWChjlofd70/09/2025 2:00 PM EDT ECG 12-LEAD06/14/2025 11:55 AM EDT documented in this encounter Results * ALL TYPE AND SCREEN (06/14/2025 2:00 PM EDT)ComponentValueRef RangeTest Method Analysis TimePerformed AtPathologist SignatureBLOOD TYPEA PositiveTBHANTIBODY SCREENNEGATIVETBHSpecimen (Source)Anatomical Location / LateralityCollection Method / VolumeCollection TimeReceived Time06/14/2025 2:00 PM EDT1 2:05 PM EDT Narrative [facility] - 06/14/2025 3:34 PM EDT [facility] , ?? Authorizing ProviderResult TypeResult StatusCorey Lauren DOCLINISYNCFinal Result Performing OrganizationAddressCity/State/ZIP CodePhone Number [facility] TB * [facility] APTT (06/14/2025 2:00 PM EDT)ComponentValueRef RangeTest MethodAnalysis TimePerformed AtPathologist SignaturePARTIAL THROMBOPLASTIN TIME25.422.3 - 36.2 secTBHSpecimen (Source)Anatomical Location / LateralityCollection Method / VolumeCollection TimeReceived Time06/14/2025 2:00 PM EDT1 2:05 PM EDT Narrative [facility]IN[facility]RI - 06/14/2025 3:00 PM EDT Authorizing ProviderResult TypeResult StatusCorey Lauren DOCLINISYNCFinal Result Performing OrganizationAddressCity/State/ZIP CodePhone Number [facility] * SRMCOH PROTHROMBIN TIME INR W/O COUM (06/14/2025 2:00 PM EDT)ComponentValueRef RangeTest MethodAnalysis TimePerformed AtPathologist SignaturePROTHROMBIN TIME 11.29.0 - 11.6 secTBHTBH INR1.06TBHComment: DESIRED INR: 2.0-3.0 CONDITIONS NOT LISTED BELOW 2.5-3.5 FOR PROSTHETIC HEART VALVE REPLACEMENT 2.5-3.5 RECURRENT THROMBOSIS Specimen (Source)Anatomical Location / LateralityCollection Method / Volume Collection TimeReceived Time06/14/2025 2:00 PM EDT1 2:05 PM EDT [facility] - 06/14/2025 3:00 PM EDT Authorizing ProviderResult TypeResult StatusCorey Lauren DOCLINISYNCFinal Result Performing OrganizationAddressCity/State/ZIP CodePhone Number [facility] * (ABNORMAL) ALL BASIC METABOLIC PANEL (06/14/2025 2:00 PM EDT)ComponentValueRef RangeTest MethodAnalysis TimePerformed AtPathologist SnorrdkevLJZDNE040366 - 145 mmol/LTBHPOTASSIUM4.83.5 - 5.1 mmol/RKACUYYJAHAN68398 - 107 mmol/LTBH CAR[place] LKXTFZK11.921.0 - 32.0 mmol/LTBHANION GAP13.5WOWUGFEHKI329(H)74 - 106 mg/dLTBHBLOOD UREA PRSNIXFO83.07.0 - 18.0 mg/dLTBHCREATININE0.760.55 - 1.02 mg/dLTBHTBH EGFR-AF SINGAPOREAN>60>=60 mL/min/1.73m 2TBHTBH EGFR-NON AF [place]ING[place]OREAN >60>=60 mL/min/1.73m 2TBHBUN CREATININE RATIO21.9PBWUOMOGVC0.18.5 - 10.1 mg/dL TBHSpecimen (Source)Anatomical Location / LateralityCollection Method / Volume Collection TimeReceived Time06/14/2025 2:00 PM EDT1 2:05 PM EDT Narrative [facility] - 06/14/2025 2:38 PM EDT Authorizing ProviderResult TypeResult StatusCorey Lauren DOCLINISYNCFinal Result Performing OrganizationAddressCity/State/ZIP CodePhone Number [facility] * (ABNORMAL) [facility] LIVER PANEL (06/14/2025 2:00 PM EDT)ComponentValueRef Range Test MethodAnalysis TimePerformed AtPathologist SignatureBILIRUBIN TOTAL0.70.2 - 1.0 mg/dLTBHBILIRUBIN DIRECT0.20.0 - 0.2 mg/dLTBHASPARTATE AMINO TRANSFERASE 9(L)15 - 37 U/LTBHALANINE AMINOTRANSFERASE8(L)14 - 59 U/LTBHALKALINE BOGQQAXDLUR7253 - 116 U/LTBHTOTAL PROTEIN7.76.4 - 8.2 g/dLTBHALBUMIN LEVEL3.7 3.4 - 5.0 g/dLTBHGLOBULIN4.0g/dLTBHALBUMIN GLOBULIN RATIO0.9TBHSpecimen (Source)Anatomical Location / LateralityCollection Method / VolumeCollection TimeReceived Time06/14/2025 2:00 PM EDT1 2:05 PM EDT Narrative [facility] - 06/14/2025 2:38 PM EDT Authorizing ProviderResult TypeResult StatusCorey Lauren DOCLINISYNCFinal Result Performing OrganizationAddressty/State/ZIP CodePhone Number [facility] * (ABNORMAL) ALL CBC WITH AUTO DIFF (06/14/2025 2:00 PM EDT)ComponentValueRef RangeTest MethodAnalysis TimePerformed AtPathologist SignatureTBH WBC9.44.0 - 11.0 10 3/uLTBHTBH RBC4.974.20 - 5.40 10 6/uLTBHTBH HGB14.812.0 - 16.0 g/dLTBH TBH HCT44.736.0 - 48.0 %TBHTBH MCV89.981.0 - 99.0 fLTBHTBH MCH29.826.7 - 34.0 pgTBHTBH MCHC33.129.9 - 35.2 g/dLTBHTBH RDW13.211.0 - 15.0 %TBHTBH DKV874343 - 450 10 3/uLTBHTBH MPV10.59.5 - 13.5 fLTBHNEUTROPHILS PERCENT AUTO87.5(H)43.0 - 75.0 %TBHLYMPHOCYTES PERCENT AUTO10.1(L)20.5 - 60.0 %TBHMONOCYTES PERCENT AUTO 1.81.7 - 12.0 %TBHTBH EO %0.1(L)0.9 - 7.0 %TBHBASOPHILS PERCENT AUTO0.20.2 - 2.0 %TBHIMMATURE GRANULOCYTES PCT AUTO0.30.0 - 0.5 %TBHNEUTROPHILS ABSOLUTE AUTO8.2(H)1.4 - 6.5 10 3/uLTBHLYMPHOCYTES ABSOLUTE AUTO1.0(L)1.2 - 3.8 10 3/uL TBHMONOCYTES ABSOLUTE AUTO0.2(L)0.3 - 0.8 10 3/uLTBHTBH EO #0.00.0 - 0.7 10 3/uLTBHBASOPHILS ABSOLUTE AUTO0.00.0 - 0.1 10 3/uLTBHIMMATURE GRANULOCYTES ABS AUTO0.030.00 - 0.03 10 3/uLTBHSpecimen (Source)Anatomical Location / LateralityCollection Method / VolumeCollection TimeReceived Time06/14/2025 2:00 PM EDT1 2:05 PM EDT Narrative [facility] - 06/14/2025 2:14 PM EDT Authorizing ProviderResult TypeResult StatusCorey Lauren DOCLINISYNCFinal Result Performing OrganizationAddressCity/State/ZIP CodePhone Number [facility] * ECG 12-LEAD (06/14/2025 11:55 AM EDT)Anatomical RegionLateralityModalityOther Specimen (Source)Anatomical Location / LateralityCollection Method / Volume Collection TimeReceived Time06/14/2025 11:55 AM EDT Narrative 06/14/2025 2:08 PM EDT [facility] ?[address] ? [place] [address] ? Electrocardiograph Report ? Signed ? Patient: MALI PINTO ?MR#: [id number] ?? : 1975 ?Acct:[id number] ?? Age/Sex: 50 / F ?ADM Date: 06/14/25 ?? Loc: PST ? Attending Dr: Isai Aguilar D.O. ? Ordering Physician: Isai Aguilar D.O. ?? Date of Service: 06/14/25 ?? Procedure(s): ECG 12 lead ?? Accession Number(s): [id number] ? cc: ?[facility] ? Test Date: ?2025-06-14 ?? Pat Name: ? MALI PINTO ?Department: ? Room: ? - ?? Gender: ? Female ? Hedge Fund Accountant: ? : ?1975 ? Requested By: ISAI AGUILAR ?? Order Number: [id number] ?Reading MD: ?? MICHELLE ??Alicia HIDALGO ? Measurements ?? Intervals ?[place] ? Rate: ? 61 ? P: ?56 ?? [place]: ? 138 ?QRS: ?-18 ?? QRSD: ? 86 ? T: ?24 ?? QT: ? 407 ? QTc: ?411 ? Interpretive Statements ?? SINUS RHYTHM ?? POSSIBLE LEFT ATRIAL ENLARGEMENT [-0.1mV P WAVE IN V1/V2] ?? Abnormal ECG ?? Compared to ECG 11/03/2024 13:58:01 ?? No significant changes ?? Electronically Signed On 06-14-2025 14:08:13 EDT by MICHELLE ??Alicia HIDALGO ? Dictated By: ?MICHELLE HIDALGO ? Signed By: ?06/14/25 1408 ? DD/ 1155 ? TD/TT: ? Deicer Inspector Pneumatic: Procedure Note Radiology, Radiologist, MD - 06/14/2025 [place] [address] Electrocardiograph Report Signed Patient: MALI PINTO AMR#: [id number] : 1975Acct:[id number] Age/Sex: 50 / FADM Date: 06/14/25 Loc: [facility] Attending Dr: Isai Aguilar D.O. Ordering Physician: Isai Aguilar D.O. Date of Service: 06/14/25 Procedure(s): ECG 12 lead Accession Number(s): [id number] cc: [facility] Test Date: 2025-06-14 Pat Name: MALI PINTO Department: Room: - Gender: Female Hedge Fund Accountant: : 1975 Requested By: ISAI AGUILAR Order Number: [id number] Christine MD: MICHELLE HIDALGO M.D. Measurements Intervals [place] Rate: 61 P: 56 [place]: 138 QRS: -18 QRSD: 86 T: 24 QT: 407 QTc: 411 Interpretive Statements SINUS RHYTHM POSSIBLE LEFT ATRIAL ENLARGEMENT [-0.1mV P WAVE IN V1/V2] Abnormal ECG Compared to ECG 11/03/2024 13:58:01 No significant changes Electronically Signed On 06-14-2025 14:08:13 EDT by MICHELLE HIDALGO M.D. Dictated By: MICHELLE HIDALGO Signed By:06/14/25 1408 DD/ 1155 TD/TT: Deicer Inspector Pneumatic: Authorizing ProviderResult TypeResult StatusCorey Lauren DOCLINISYNC IMAGINGFinal Result documented in this encounter Visit Diagnoses Not on filedocumented in this encounter Care Teams Team MemberRelationshipSpecialtyStart DateEnd Date Toney Park MD [address] [place] [address] PCP - GeneralFamily Zrwehvcj42/4/24documented as of this encounter
--- OUTSIDE RECORDS SUMMARY | 2025-06-27 06:17 | XMS_ITS | Patient Health Record ---
Author Organization Formerly [facility] vices Address [address] [place], [place] [address] Support Name Relationship Address Phone Ariela Pinto [facility] , [place] [phone] BlairMali Guarantor Unknown Allergies No Known Allergies Reason For Referral No Information Problems Problem Type SNOMED Code ICD Code Onset Dates Problem Status W/U Status Risk Notes Problem Bacteremia (8937345) Bacteremia (R78.81) 04/04/2009 Acti ve confirmed ProblemDysphagia (82960913)Symptom, dysphagia (787.2) (787.2)08/13/2009ctive confirmedProblemAcute labyrinthitis (391823215254805)Acute labyrinthitis (H83.09)12/13/2007ctiveconfirmedDescription:LabyrinthitisProblemAcute sinusitis (25791765)Acute infection of nasal sinus (J01.90)12/20/2007ctiveconfirmed Description:Acute sinusitisProblemLow back pain (754349283)Lumbago (724.2) (724.2)07/10/2009ctiveconfirmedStory:ASSESSMENT: 1. Add Neurontin. 2. Keep follow up with Pain clinic and neurosurgery.,ProblemParoxysmal digital cyanosis (421029699)Paroxysmal digital cyanosis (I73.00)08/13/2009ctiveconfirmed Story:ASSESSMENT: Improving, CARROL, CRP, ESR, RF negative.,Description:Raynaud's syndromeProblemSpasm (37965459)Spasm, muscle (728.85) (728.85)03/05/2009ctive confirmedProblemSciatica (88962410)Neuralgia neuritis, sciatic nerve (M54.30) 07/10/2009ctiveconfirmedDescription:SciaticaProblemPyelonephritis, acute (590.1) (590.1)04/04/2009ctiveconfirmedProblemBackache (272071973)Backache (724.5) (724.5)03/05/2009ctiveconfirmedProblemSpinal stenosis of lumbar region (59275737)Lumbar canal stenosis (M48.061)10/01/2009ctiveconfirmed Description:Spinal stenosis of lumbar regionProblemIncreased frequency of urination (065302476)Urinary frequency (788.41) (788.41)04/18/2009ctive confirmedProblemDegeneration of lumbar intervertebral disc (90705202) Degeneration of lumbar or lumbosacral intervertebral disc (722.52) (722.52) 10/01/2009ctiveconfirmedProblemScleroderma (176965894)Scleroderma (M34.9) 08/13/2009ctiveconfirmedDescription:Systemic sclerosisProblemUrinary tract infectious disease (06504393)Infection of urinary tract (N39.0)04/18/2009ctive confirmedDescription:Urinary tract infection Plan Of Treatment No Information Medical (General) History Surgical History Surgery Date(Month/Year) SURGICAL: Appendectomy, ProblemStatus: A ctive, 2009-10-01 SURGICAL: Tonsillectomy and adenoidectom y, ProblemStatus: Active, 2009-10-01 SURGICAL: Laparoscopic tubal ligation by cautery, ProblemStatus: Active, 2009-10-01
--- OUTSIDE RECORDS SUMMARY | 2025-06-27 06:17 | XMS_ITS | Clinical Summary ---
Author Organization [facility] Healthcare Address [address] [place] [address] Care Team Providers Care Head Waiter Name Role Phone HouseToney MD Primary Care Provider [phone] Allergies No known active allergies Medications MedicationSigDispense QuantityRefillsLast FilledStart DateEnd DateStatus dicyclomine (Bentyl) 20 MG tablet Take 20 mg by mouth every 6 (six) hours08/24/2023ctive omeprazole (PriLOSEC) [address] capsule Take 40 mg by mouth DailyActive levothyroxine (Synthroid, Levoxyl) 200 MCG tablet Indications:Postoperative hypothyroidismTake 1 tablet (200 mcg) by mouth Daily 90 tablet 5009/06/2025ctive levothyroxine (Synthroid, Levoxyl) 50 MCG tablet Indications:Postoperative hypothyroidismTake 1 tablet (50 mcg) by mouth Daily 90 tablet 5009/06/2025ctive mirtazapine (Remeron) 30 MG tablet Take 30 mg by mouth at afkfyso8206/28/2024ctive meclizine (Antivert) 25 MG tablet Take 25 mg by mouth as needed in the morning and 25 mg as needed at noon and 25 mg as needed in theevening for dizziness.5Active ferrous gluconate (Fergon) 324 (38 Fe) MG tablet Take 324 mg by mouth in the morning. Take with meals.08/07/2024ctive meloxicam (Mobic) 7.5 MG tablet Take 7.5 mg by mouth DailyActive LORazepam (Ativan) 0.5 MG tablet Take 0.5 mg by mouth in the morning and 0.5 mg before bedtime.Active citalopram (CeleXA) 10 MG tablet Take 10 mg by mouth DailyActive metroNIDAZOLE (Flagyl) 500 MG tablet Indications:Vaginitis due to TrichomonasTake 1 tablet (500 mg) by mouth in the morning and 1 tablet (500 mg) before bedtime. Do all this for 7 days. Do not drink alcohol while taking this medication. 14 tablet Expired Encounters DateTypeDepartmentCare AbfdVqweadyretr51/09/2025[place] [address] Simi Weldon LPN 06/14/2025b[place] [address] Isai Aguilar, 5Clinisync Result Encounter NOMS External Department Unsolicited Isai Aguilar, 06/06/2025[place] [address] Barbie Manzano MA 5Clinisync Result Encounter NOMS External Department Unsolicited Isai Aguilar, 05/29/2025 1:40 PM EDTPro[place] [address] Isai Aguilar, Pre-op examination; Menorrhagia with regular cycle; Pelvic pain; Dysmenorrhea; Dyspareunia in female; Well woman exam with routine gynecological exam; Breast cancer screening by gakcpzhhc46/23/2025linisync Result Encounter NOMS External Department Unsolicited Isai Aguilar, 04/18/2025 1:50 [place] [address] Isai Aguilar, DO Dysfunctional uterine modcydud23/13/2025[place] [address] Isai Aguilar DO from Last 3 Months Immunizations ImmunizationAdministration DatesNext DueInfluenza, injectable, quadrivalent 08/21/2020,05/23/2019 Family History Medical HistoryRelationNameCommentsHeart failureMaternal GrandfatherCancer Maternal GrandmotherHeart attackSisterRelationNameStatusCommentsMaternal GrandfatherMaternal GrandmotherSister Social History Tobacco UseTypesPacks/DayYears UsedDateSmoking Tobacco: NeverSmokeless Tobacco: Never Tobacco Cessation:Counseling Given: Not Answered CommentsNoSex and Gender InformationValueDate RecordedSex Assigned at BirthNot on fileLegal WdqMqvffo50/15/2023 7:23 PM EDTGender IdentityNot on file Sexual OrientationNot on file Last Filed Vital Signs Vital SignReadingTime TakenCommentsBlood Qeryzpym275/7409 2:22 PM EDT Zgdob7766 1:15 PM EDTTemperature--Respiratory Xrvo291202/28/2025 1:15 PM EDTOxygen Rvciodthmy20%02/28/2025 1:15 PM EDTInhaled Oxygen Concentration-- Jzlmrl226 kg (305 lb)05/29/2025 2:22 PM MDEPifgns289.4 cm (6' 1 )02/28/2025 1:15 PM EDTBody Mass Index40.24002/28/2025 1:15 PM EDT Plan of Treatment DateTypeDepartmentCare Team (Latest Contact Info)Nkshnrnuyfi74/29/2025 2:30 PM EDTOffice Visit MAZIN MENDOZA [address] [place] [address] [place] [phone] Lindsey Collier, PA [address] [facility] [place] [address] 08/08/2025 2:30 PM ESTOffice Visit MAZIN MENDOZA [address] [place] [address] [place] [address] Lindsey Collier, PA [address] [facility] [facility] [address] [place], [place] [id number] 08/22/2025 1:20 PM ESTOffice Visit [facility] [place] [facility] [address] [place] [phone] Thi Stephens MD [address] [place] [address] Procedures Procedure NamePriorityDate/TimeAssociated DiagnosisCommentsALL TYPE AND SCREEN Bvcrucl9006/14/2025 2:00 PM EDT [facility] UNKJEfdcwoh93/09/2025 2:00 PM EDT SRMCOH PROTHROMBIN TIME INR W/O OHDFFceymsd22/09/2025 2:00 PM EDT ALL BASIC METABOLIC RWFHWIpmoqbz85/09/2025 2:00 PM EDT HMHP LIVER HCWMMArefrxm56/09/2025 2:00 PM EDT ALL CBC WITH AUTO BWXTKdlqsyy47/09/2025 2:00 PM EDT ECG 12-LEAD06/14/2025 11:55 AM EDT US PELVIS W/ CIRZMMQSVBQX68/25/2025 2:52 PM EDT IGP,APTIMA HPV,AGE DPDANjypwnp58/23/2025 2:15 PM EDT PAP FGIZLGwslqou59/23/2025 12:00 AM EDTfrom Last 3 Months Results * SRMCOH PROTHROMBIN TIME INR W/O COUM (06/14/2025 2:00 PM EDT)ComponentValueRef RangeTest MethodAnalysis TimePerformed AtPathologist SignaturePROTHROMBIN TIME 11.29.0 - 11.6 secTBHTBH INR1.06TBHComment: DESIRED INR: 2.0-3.0 CONDITIONS NOT LISTED BELOW 2.5-3.5 FOR PROSTHETIC HEART VALVE REPLACEMENT 2.5-3.5 RECURRENT THROMBOSIS Specimen (Source)Anatomical Location / LateralityCollection Method / Volume Collection TimeReceived Time06/14/2025 2:00 PM EDT1 2:05 PM EDT Narrative [facility] - 06/14/2025 3:00 PM EDT Authorizing ProviderResult TypeResult StatusCorey Lauren DOCLINISYNCFinal Result Performing OrganizationAddressCity/State/ZIP CodePhone Number [facility] * (ABNORMAL) [facility] LIVER PANEL (06/14/2025 2:00 PM EDT)ComponentValueRef Range Test MethodAnalysis TimePerformed AtPathologist SignatureBILIRUBIN TOTAL0.70.2 - 1.0 mg/dLTBHBILIRUBIN DIRECT0.20.0 - 0.2 mg/dLTBHASPARTATE AMINO TRANSFERASE 9(L)15 - 37 U/LTBHALANINE AMINOTRANSFERASE8(L)14 - 59 U/LTBHALKALINE JJDDDLSJCXH9183 - 116 U/LTBHTOTAL PROTEIN7.76.4 - 8.2 g/dLTBHALBUMIN LEVEL3.7 3.4 - 5.0 g/dLTBHGLOBULIN4.0g/dLTBHALBUMIN GLOBULIN RATIO0.9TBHSpecimen (Source)Anatomical Location / LateralityCollection Method / VolumeCollection TimeReceived Time06/14/2025 2:00 PM EDT1 2:05 PM EDT Narrative [facility] - 06/14/2025 2:38 PM EDT Authorizing ProviderResult TypeResult StatusCorey Lauren DOCLINISYNCFinal Result Performing OrganizationAddressCity/State/ZIP CodePhone Number [facility] * [facility]CF APTT (06/14/2025 2:00 PM EDT)ComponentValueRef RangeTest MethodAnalysis TimePerformed AtPathologist SignaturePARTIAL THROMBOPLASTIN TIME25.422.3 - 36.2 secTBHSpecimen (Source)Anatomical Location / LateralityCollection Method / VolumeCollection TimeReceived Time06/14/2025 2:00 PM EDT1 2:05 PM EDT Narrative [facility] - 06/14/2025 3:00 PM EDT Authorizing ProviderResult TypeResult StatusCorey Lauren DOCLINISYNCFinal Result Performing OrganizationAddressCity/State/ZIP CodePhone Number [facility] * ALL TYPE AND SCREEN (06/14/2025 2:00 PM EDT)ComponentValueRef RangeTest Method Analysis TimePerformed AtPathologist SignatureBLOOD TYPEA PositiveTBHANTIBODY SCREENNEGATIVETBHSpecimen (Source)Anatomical Location / LateralityCollection Method / VolumeCollection TimeReceived Time06/14/2025 2:00 PM EDT1 2:05 PM EDT Narrative [facility] - 06/14/2025 3:34 PM EDT [facility] , ?? Authorizing ProviderResult TypeResult StatusCorey Lauren DOCLINISYNCFinal Result Performing OrganizationAddressCity/State/ZIP CodePhone Number [facility] * (ABNORMAL) ALL CBC WITH AUTO DIFF (06/14/2025 2:00 PM EDT)ComponentValueRef RangeTest MethodAnalysis TimePerformed AtPathologist SignatureTBH WBC9.44.0 - 11.0 10 3/uLTBHTBH RBC4.974.20 - 5.40 10 6/uLTBHTBH HGB14.812.0 - 16.0 g/dLTBH TBH HCT44.736.0 - 48.0 %TBHTBH MCV89.981.0 - 99.0 fLTBHTBH MCH29.826.7 - 34.0 pgTBHTBH MCHC33.129.9 - 35.2 g/dLTBHTBH RDW13.211.0 - 15.0 %TBHTBH JFK660628 - 450 10 3/uLTBHTBH MPV10.59.5 - 13.5 [...] 2:00 PM EDT1 2:05 PM EDT Narrative KAREEN - 06/14/2025 2:14 PM EDT Authorizing ProviderResult TypeResult StatusCorey Lauren DOCLINISYNCFinal Result Performing OrganizationAddressCity/State/ZIP CodePhone Number [facility] * (ABNORMAL) ALL BASIC METABOLIC PANEL (06/14/2025 2:00 PM EDT)ComponentValueRef RangeTest MethodAnalysis TimePerformed AtPathologist VtbocpklhBTAXPR839362 - 145 mmol/LTBHPOTASSIUM4.83.5 - 5.1 mmol/AFWCECSZEHFH43503 - 107 mmol/LTBH CARBON OPBSAAK90.921.0 - 32.0 mmol/LTBHANION GAP13.5KUGFVDZYGS940(H)74 - 106 mg/dLTBHBLOOD UREA AJPKPPHU82.07.0 - 18.0 mg/dLTBHCREATININE0.760.55 - 1.02 mg/dLTBHTBH EGFR-AF IRAQI>60>=60 mL/min/1.73m 2TBHTBH EGFR-NON AF IRAQI >60>=60 mL/min/1.73m 2TBHBUN CREATININE RATIO21.3LKZKLNVPRL8.18.5 - 10.1 mg/dL TBHSpecimen (Source)Anatomical Location / LateralityCollection Method / Volume Collection TimeReceived Time06/14/2025 2:00 PM EDT1 2:05 PM EDT Narrative [facility] - 06/14/2025 2:38 PM EDT Authorizing ProviderResult TypeResult StatusCorey Lauren DOCLINISYNCFinal Result Performing OrganizationAddressCity/State/ZIP CodePhone Number [facility] * ECG 12-LEAD (06/14/2025 11:55 AM EDT)Anatomical RegionLateralityModalityOther Specimen (Source)Anatomical Location / LateralityCollection Method / Volume Collection TimeReceived Time06/14/2025 11:55 AM EDT Narrative 06/14/2025 2:08 PM EDT [facility] ?[address] ? [place], [place] [address] ? Electrocardiograph Report ? Signed ? Patient: MALI PINTO ?MR#: [id number] ?? : 1975 ?Acct:[id number] ?? Age/Sex: 50 / F ?ADM Date: 06/14/25 ?? Loc: PST ? Attending Dr: Isai Aguilar D.O. ? Ordering Physician: Isai Aguilar D.O. ?? Date of Service: 06/14/25 ?? Procedure(s): ECG 12 lead ?? Accession Number(s): [id number] ? cc: ?[facility] ? Test Date: ?2025-06-14 ?? Pat Name: ? MALI PITNO ?Department: ? Room: ? - ?? Gender: ? Female ? 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 Requested By: ISAI LOPEZZIO ?? Order Number: [id number] ?Reading MD: ?? MICHELLE ??Alicia HIDALGO ? Measurements ?? Intervals ?Soso ? Rate: ? 61 ? P: ?56 ?? MO: ? 138 ?QRS: ?-18 ?? QRSD: ? [...] 1408 ? DD/ 1155 ? TD/TT: ? Plant Sciences Professor: Procedure Note Radiology, Radiologist, MD - 06/14/[address] [address] Electrocardiograph Report Signed Patient: MALI PINTO [facility]#: [id number] : 1975Acct:[id number] Age/Sex: 50 / FADM Date: 06/14/25 Loc: PST Attending Dr: Isai Aguilar D.O. Ordering Physician: Isai Aguilar D.O. 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 Measurements Intervals Soso Rate: 61 P: 56 MO: 138 QRS: -18 QRSD: 86 T: 24 QT: 407 QTc: 411 Interpretive Statements SINUS RHYTHM POSSIBLE LEFT ATRIAL ENLARGEMENT [-0.1mV P WAVE IN V1/V2] Abnormal ECG Compared to ECG 11/03/2024 13:58:01 No significant changes Electronically Signed On 06-14-2025 14:08:13 EDT by MICHELLE HIDALGO M.D. Dictated By: MICHELLE HIDALGO Signed By:06/14/25 1408 DD/ 1155 TD/TT: Plant Sciences Professor: Authorizing ProviderResult TypeResult StatusCorefederica Aguilar DOCLINISYNC IMAGINGFinal Result * US PELVIS W/ TRANSVAGINAL (05/31/2025 2:52 PM EDT)Anatomical RegionLaterality ModalityOtherSpecimen (Source)Anatomical Location / LateralityCollection Method / VolumeCollection TimeReceived Time05/31/2025 2:52 PM EDT Narrative 05/31/2025 2:55 PM EDT [facility] ?[address] ? [place] [address] ? Ultrasound Report ? Signed ? Patient: MALI PINTO ?MR#: [id number] ?? : 1975 ?Acct:[id number] ?? Age/Sex: 50 / F ?ADM Date: 05/31/25 ?? Loc: US ? Attending Dr: Isai Aguilar D.O. ? Ordering Physician: Isai Aguilar D.O. ?? Date of Service: 05/31/25 ?? Procedure(s): US pelvis w/ transvaginal ?? Accession Number(s): [id number] ? cc: Isai Aguilar D.O.; TONEY MONTOYA ? [facility] ? [address] ? [place] [address] ? Patient Name: ?? MALI PINTO ? MRN: [facility]:[id number] ? date: 1975 ?Sex: F ?? Assigned Patient Location: ?? Current Patient Location: US ?? Accession/Order Number: [id number] ?? Exam Date: 05/31/2025 ??13:55 ?Report Date: 05/31/2025 ??14:52 ? At the request of: ?? ISAI ??LAUREN ??DO ? Procedure: ??US pelvis w/ transvaginal ? Pelvic ultrasound. ? Reason for exam: Dysfunctional bleeding. ? Comparison: none ? Technique: Transabdominal imaging of the uterus and ovaries was performed. ? Transvaginal imaging of the uterus and ovaries was also obtained. ? Findings: Uterus measures 9.7 x 3.6 x 4.5 cm. ??No measurable fibroid. ? Endometrium measures 8.5 mm without focal abnormality. ? Right ovary not visualized. ??Left ovary measures 2.0 x 2.0 x 2.1 cm. ??No ?? adnexal mass or cyst. ??No free fluid. ? US/US pelvis w/ transvaginal ?? Impression: Unremarkable uterus, endometrium and left ovary. ??Right ovary not ?? visualized. ? Impression dictated by: Vlad Chamberlain Jr., DMaryOMary ??05/31/2025 2:52 PM ? Dictation Location: [facility]PC-23 ? Electronically authenticated by: [id number] ??Y ?? Date: 05/31/2025 ??14:52 ? Dictated By: ?Vlad Chamberlain M.D. ? Signed By: ?05/31/25 1455 ? DD/ 51 ? TD/TT: ? Plant Sciences Professor: Procedure Note Radiology, Radiologist, MD - 05/31/[address] [address] Ultrasound Report Signed Patient: MALI PINTO [facility]#: [id number] : 1975Acct:[id number] Age/Sex: 50 / FADM Date: 05/31/25 Loc: US Attending Dr: Isai Lauren D.O. Ordering Physician: Isai Aguilar D.O. Date of Service: 05/31/25 Procedure(s): US pelvis w/ transvaginal Accession Number(s): [id number] cc: Isai Aguilar D.O.; TONEY MONTOYA [place] [id number] Patient Name: MALI PINTO MRN: [facility]:[id number] date: 1975 Sex: F Assigned Patient Location: US Current Patient Location: US Accession/Order Number: [id number] Exam Date: 05/31/2025 13:55 Report Date: 05/31/2025 14:52 At the request of: ISAI AGUILAR DO Procedure: US pelvis w/ transvaginal [...] Unremarkable uterus, endometrium and left ovary. Right ovarynot visualized. Impression dictated by: Vlad Chamberlain Jr., D.O. 05/31/2025 2:52 PM Dictation Location: [place] [address] Electronically authenticated by: [id number] Y Date: 4:52 Dictated By: Vlad Chamberlain M.D. Signed By:05/31/25 1455 DD/ 1452 TD/TT: Plant Sciences Professor: Authorizing ProviderResult TypeResult StatusCorey Lauren DOCLINISYNC IMAGINGFinal Result * IGP,APTIMA HPV,AGE GDLN (05/29/2025 2:15 PM EDT)ComponentValueRef RangeTest MethodAnalysis TimePerformed AtPathologist SignatureAGE GDLN ACOG TESTINGNote. TBHComment: ?? TESTS ? RESULT ??FLAG ??UNITS ?REF RANGE ??LAB ?? Clinician Provided Cytology Information ?? Source.............Cervix;Endocervix ?? No. of containers..01 ThinPrep Vial Age Algo ACOG Kyleigh... ??30-65 ? 01 ?FLAG LEGEND: ?L-Low Normal,H-High Normal,LL-Alert Low,HH-Alert High <-Panic Low,>-Panic High,A-Abnormal,AA-Critical Abnormal Performed at: 01 =G ?[facility] ?? [address] [place] ??[address] ?? Salome Li MD, IGP, APTIMA HPV, RFX 16/18,45Note.TBHComment: ?? TESTS ? RESULT ??FLAG ??UNITS ?REF RANGE ??LAB DIAGNOSIS: ?02 ?? NEGATIVE FOR INTRAEPITHELIAL LESION OR MALIGNANCY. ?? TRICHOMONAS VAGINALIS IS PRESENT. Specimen adequacy: ?02 ?? Satisfactory for evaluation. ??Endocervical and/or squamous metaplastic ?? cells (endocervical component) are present. Performed by: ? 02 ?? Shayy Mclain, Graphics Edit Technician (ASCP) . ? 02 Note: ? Note ?02 ?? The Pap smear is a screening test designed to aid in the ?? detection of premalignant and malignant conditions of the ?? uterine cervix. ??It is not a diagnostic procedure and ?? should not be used as the sole means of detecting cervical ?? cancer. ??Both false-positive and false-negative reports do ?? occur. Test Methodology: ? Note ?02 ?? This liquid based ThinPrep(R) pap test was screened with ?? the use of an image guided system. HPV Genotype Reflex ?? Note ?02 ?? Criteria not met, HPV Genotype not performed. ?FLAG LEGEND: ?L-Low Normal,H-High Normal,LL-Alert Low,HH-Alert High <-Panic Low,>-Panic High,A-Abnormal,AA-Critical Abnormal Performed at: 02 WB ?[facility] ?? [address] [place], [place] ??[address] ?? Salome Li MD, HPV APTIMANegativeNegativeTBHComment: This nucleic acid amplification test detects fourteen high- risk HPV types (16,18,31,33,35,39,45,51,52,56,58,59,66,68) without differentiation. Performed at: ??=G - [facility] ??[id number] [employer] Teacher: Salome Li MD, Phone: ??[phone] Performed at: ?? - [address] ??[id number] [employer] Teacher: Salome Li MD, Phone: ??[phone] Specimen (Source)Anatomical Location / LateralityCollection Method / Volume Collection TimeReceived Time05/29/2025 2:15 PM EDT05/29/2025 7:52 PM EDT Narrative [facility] - 06/05/2025 1:08 PM EDT BRUSH-SPATULA CERVIX ENDOCERVIX Authorizing ProviderResult TypeResult StatusCorey Lauren DOL BLOOD ORDERABLES Final ResultPerforming OrganizationAddressCity/State/[facility] CodePhone Number [facility] * Pap Smear (05/29/2025 12:00 AM EDT)Specimen (Source)Anatomical Location / LateralityCollection Method / VolumeCollection TimeReceived TimeSwabCervical swab / Unknown Narrative Authorizing ProviderResult TypeResult StatusFazio Nurse Noms Bcp ObLAB CYTOLOGY ORDERABLESFinal ResultPerforming OrganizationAddressCity/State/ZIP CodePhone Number EXTERNAL LAB from Last 3 Months Insurance Care Teams Team MemberRelationshipSpecialtyStart Date Toney Montoya MD [address] [place] [address] PCP - GeneralFamily Avqutnts54/4/24
--- OUTSIDE RECORDS SUMMARY | 2025-06-27 06:17 | XMS_ITS | Encounter Summary ---
Author Organization [facility] Address [address] [facility] [place] [address] Care Team Providers Care Lab Scientist Name Role Phone House, Toney Melara MD Primary Care Provider [phone] Encounter Details DateTypeDepartmentCare Team (Latest Contact Info)Tfvhrhpalzh85/09/2025bstract MAZIN MENDOZA [address] [place] [address] Jorge Aguilar DO [address] [facility] [address] Nuris Cristina, [facility] Social History Tobacco UseTypesPacks/DayYears UsedDateSmoking Tobacco: NeverSmokeless Tobacco: NeverCommentsNoSex and Gender InformationValueDate RecordedSex Assigned at BirthNot on fileLegal CmcHzjtfo60/15/2023 7:23 PM EDTGender IdentityNot on fileSexual OrientationNot on filedocumented as of this encounter Plan of Treatment DateTypeDehoward memorial hospitalCare Team (Latest Contact Info)Wtxhckdijbr75/29/2025 2:30 PM EDTOffice Visit MAZIN MENDOZA [address] [place] [address] [place] [address] Lindsey Collier PA [address] [facility] [place] [address] 08/08/2025 2:30 PM ESTOffice Visit MAZIN MENDOZA [address] [facility] [place] [address] Lindsey Collier, PA [address] [place] [address] 08/22/2025 1:20 PM ESTOffice Visit [facility] [address] [place] [address] Thi Stephens MD [address] [place] [address] documented as of this encounter Visit Diagnoses Not on filedocumented in this encounter Care Teams Team MemberRelationshipSpecialtyStart DateEnd Date CusickToney MD [address] [place] [address] PCP - GeneralFamily Ebphgssv19/4/24documented as of this encounter
--- OUTSIDE RECORDS SUMMARY | 2025-06-27 06:17 | XMS_ITS | Clinical Summary ---
Author Organization Priori Datas tem Address [id number] [address] [place] [address] Care Team Providers Care Nuclear Medicine Chief Technologist Name Role Phone Toney Park DO Primary Care Provider [phone] Allergies No known active allergies Medications MedicationSigDispense QuantityRefillsLast FilledStart DateEnd DateStatus omeprazole (PriLOSEC) 40 mg capsule Take 1 capsule (40 mg total) by mouth every morning before breakfast.Active busPIRone (BUSPAR) 5 mg tablet Take 1 tablet (5 mg total) by mouth in the morning.Active cholecalciferol, vitamin D3, 5,000 units tablet Take 1 tablet (5,000 Units total) by mouth in the morning.Active levothyroxine sodium (EUTHYROX ORAL) Take 300 mcg by mouth in the morning.01/01/2022ctive calcium carbonate (OS-CHRIS) 500 mg calcium (1,250 mg) tablet 12/05/2021ctive acetaminophen (TYLENOL EXTRA STRENGTH) 500 mg tablet Take 1 tablet (500 mg total) by mouth every 6 (six) hours as needed for pain. Active amitriptyline (ELAVIL) 100 mg tablet Take 1 tablet (100 mg total) by mouth once daily at bedtime.05/14/2024ctive busPIRone (BUSPAR) 10 mg tablet Take 1 tablet (10 mg total) by mouth.04/26/2024ctive citalopram (CeleXA) 20 mg tablet Take 1 tablet (20 mg total) by mouth in the morning.04/26/2024ctive dicyclomine (BENTYL) 20 mg tablet Take 1 tablet (20 mg total) by mouth every 6 (six) hours.3Active meloxicam (MOBIC) 7.5 mg tablet Take 1 tablet (7.5 mg total) by mouth in the morning.4Active mirtazapine (REMERON) 30 mg tablet Take 1 tablet (30 mg total) by mouth once daily at bedtime.Active ferrous gluconate (FERGON) 324 mg tablet Take 1 tablet (324 mg total) by mouth daily with breakfast.4Active meclizine (ANTIVERT) 25 mg tablet Active ferrous gluconate (FERGON) 324 mg tablet Take 1 tablet (324 mg total) by mouth in the morning.4Active LORazepam (ATIVAN) 0.5 mg tablet Take 1 tablet (0.5 mg total) by mouth in the morning and 1 tablet (0.5 mg total) before bedtime.5Active hydrOXYzine (ATARAX) 10 mg tablet Take 1 tablet (10 mg total) by mouth 3 (three) times a day as needed for anxiety.5Active methylPREDNISolone (MEDROL, GEMMA,) 4 mg tablet follow package directions 21 tablet 5Active Active Problems ProblemNoted DateDiagnosed DateThoracic spine pain3Primary osteoarthritis of left knee11/03/2022cute meniscal tear of left knee11/03/2022 Disorder of pppixw9807/08/2022 Overview (07/08/2022): Added automatically from request for surgery [id number] Thoracic dbwgobuihidqt67/22/2022Lumbar deosgbktfgz81/16/2022Lumbar neuritis 11/19/2021Thyroid kbkfnx791BMI 40.0-44.9, adult12/04/2020ight hip pain 07/18/2018 Overview (07/18/2018): Added automatically from request for surgery [id number] Cervical spondylosis without odlusrdlcw86/11/2018Lumbosacral spondylosis without cidiqmgcrh80/07/2017 Encounters DateTypeDepartmentCare RjgoZapwjmftkru77/21/2025 10:33 AM EDT - 06/26/2025 11:59 PM EDTHospital Encounter [facility] [address] [place] [address] Abnormal mammogram Discharge Disposition: Home06/26/20255033Psuite53/02/2025 1:35 PM EDT - 06/07/2025 11:59 PM EDTHospital Encounter [facility] Radiology [address] [place] [address] Eros Marr PA Lumbosacral spondylosis without myelopathy Discharge Disposition: Home06/07/2025 1:15 PM EDTOffice Visit [facility] [address] [place] [address] Eros Marr PA Lumbosacral spondylosis without myelopathy (Primary Dx)06/06/2025Travel 06/04/20252653Tbcnmp25/24/2025 2:49 PM EDT - 05/30/2025 11:59 PM EDTHospital Encounter [facility] Mammography[facility]DEXA Imaging [address] [place] [address] Visit for screening mammogram Discharge Disposition: Home05/29/20253977Cvqzlz25/07/2025 1:30 PM EDTOffice Visit [facility] [address] [place] [address] Eros Marr PA Lumbosacral spondylosis without myelopathy (Primary Dx)04/12/2025Travel 03/30/2025 11:59 AM EDT - 03/30/2025 12:06 PM EDTSurgery [facility] Procedures [address] [place] [address] Zeeshan Perry MD INJECTION BLOCK SACROILIAC JOINT [[id number] (CPT??)]03/30/2025 11:24 AM EDT Anesthesia Event [facility] Pain Procedures [address] [place] [address] Ty Lopez MD Gray, Barbara C, APRN-TIMING ADJUSTER 03/30/2025 11:04 AM EDT - 03/30/2025 11:59 PM EDTHospital Encounter [facility] [address] [place] [address] Zeeshan Perry MD Discharge Disposition: Home03/30/2025 8:15 AM EDT - 03/30/2025 11:03 AM EDT Hospital Encounter [facility] - Radiology [address] [place] [address] Zeeshan Perry MD Discharge Disposition: Homefrom Last 3 Months Family History Medical HistoryRelationNameCommentsNo Known ProblemsFatherCancerMaternal GrandmotherColon cancerMaternal GrandmotherDiabetesMotherRelationNameStatus CommentsFatherAliveMaternal GrandmotherMotherAlive Social History Tobacco UseTypesPacks/DayYears UsedDateSmoking Tobacco: NeverSmokeless Tobacco: Never Tobacco Cessation:Counseling Given: Not Answered Alcohol UseStandard Drinks/WeekCommentsYes0 (1 standard drink = 0.6 oz pure alcohol)SociallyPHQ-2AnswerDate RecordedTotal Shnat1361ChildcareAnswer Date PgowwfaxQkrpxnvhaGkzkugf13/10/2019EmploymentAnswerDate RecordedEmployment Ytqcqlj5502/13/2019Hunger ScreeningAnswerDate RecordedWithin the past 12 months we worried whether our food would run out before we got money to buy more.Never True06/07/2025Within the past 12 months the food we bought just didn't last and we didn't have money to get more.Never True06/07/2025Purpose - LifeAnswerDate RecordedPurpose and direction in xqwqIauodcg81/21/2021CommentsNoSex and Gender InformationValueDate RecordedSex Assigned at BirthNot on fileLegal Sex Bjuaxo6204/11/2015 11:40 AM EDTGender IdentityNot on fileSexual OrientationNot on file Last Filed Vital Signs Vital SignReadingTime TakenCommentsBlood Xuatnunf904/7610 1:10 PM EDT Ilryw880506/07/2025 1:10 PM FEGJhubhjpbjdf21 ??C (96.8 ??F)11/17/2024 11:08 AM EDT Respiratory Abbe2084 1:10 PM EDTOxygen Duebphleej326%06/07/2025 1:10 PM EDTInhaled Oxygen Concentration--Lgeorj266.1 kg (300 lb)06/07/2025 1:10 PM EDT Jruigw066.4 cm (6' 1 )06/07/2025 1:10 PM EDTBody Mass Index39.5806/07/2025 1:10 PM EDT Plan of Treatment DateTypeDepartmentCare Team (Latest Contact Info)Itakfrqpest89/20/2025 1:00 PM ESTOffice Visit [facility] [address] [place] [address] Eros Marr PA [address] [facility] [place], [place] [id number] Health MaintenanceDue DateLast DoneCommentsDepression Qkvxbpybx44/21/1988Adult BMI Follow Up Plan01/24/1994DTaP,Tdap and Td Vaccines (1 - Tdap)01/24/1995 Influenza Rwukyyn99/, 05/23/2019Adult BMI Kuwouwqsp61/02/2026 06/07/2025Tobacco Xgehhlyqv29/10/2024Pap Smear/ Medical Devices ImplantedTypeAreaManufacturerDevice IdentifierShelf Expiration DateModel / Serial / LotScr Bn Twstof Frs 2.0x13 Ns - Sws13 - [id number] Implanted:Qty: 1 on 02/11/2018 [facility] Foot[employer] [id number] / WS13 / NADescription:WS13 2.0 major thread, 13 mm screw, pitch 0.87 - SCR BN TWSTOF FRS 2.0X13 NS Titanium Fixos 2.0 WS twist off screwsScr Bn Twstof Frs 2.0x15 Ns - Sws15 - [id number] Implanted:Qty: 1 on 02/11/2018 [facility]: Foot/ WS15 / NADescription:WS15 2.0 major thread, 15 mm screw, pitch 0.87 - SCR BN TWSTOF FRS 2.0X 15 NS Titanium Fixos 2.0 WS twist off screwsLumbar Fusion Hardware Procedures Procedure NamePriorityDate/TimeAssociated DiagnosisCommentsUS BREAST RT LIMITED Nabvyod8406/26/2025 11:14 AM EDT Abnormal mammogram XR SPINE LUMBAR 2 OR 3 CLKGvjcwfa70/02/2025 1:49 PM EDT Lumbosacral spondylosis without myelopathy MAMM SCREENING BILATERAL W VLESnedhmj17/24/2025 3:08 PM EDT Visit for screening mammogram [place] FLUOROSCOPY UP TO 1 ALJKHhbdmyp83/25/2025 11:31 AM EDT Disorder of sacrum [place] INJECTION,SACROILIAC JOINT03/30/2025 11:23 AM EDT Disorder of sacrum Special Needs 2cc Total from Last 3 Months Results * Ultrasound breast limited right (06/26/2025 11:14 AM EDT)Anatomical Region LateralityModalityBreastRightUltrasoundSpecimen (Source)Anatomical Location / LateralityCollection Method / VolumeCollection TimeReceived Time06/26/2025 11:21 AM EDT Narrative 06/26/2025 11:24 AM EDT LAURO PINTO 1975 [id number] EXAM: US BREAST RT LIMITED, 06/26/2025 10:58 [...] Procedure Note Mao Betancur DO - 06/26/2025 LAURO PINTO 1975 [id number] EXAM: US BREAST RT LIMITED, 06/26/2025 10:58 [...] 2 MAMM 1 YR Authorizing ProviderResult TypeResult StatusCharles P House [facility] ORDERABLES Final Result * X-ray spine lumbar 2 or 3 views (06/07/2025 1:49 PM EDT)Anatomical Region LateralityModalityMSK, Neuro, Spine, L-spineN/AComputed RadiographySpecimen (Source)Anatomical Location / LateralityCollection Method / VolumeCollection TimeReceived Time06/08/2025 10:18 AM EDT Narrative 06/08/2025 10:19 AM EDT HISTORY: Pain TECHNIQUE: ??Frontal lateral and spot views of the lumbar spine were obtained. . COMPARISON: ??03/20/2019. FINDINGS: ??Right-sided interpedicular screws are again seen at L5-S1. Metallic cages are seen in the L5-S1 intervertebral disc space. There is increasing disc space narrowing at L4-5 since the prior study. The vertebral body heights and remaining disc spaces are well-maintained. There is no evidence for an acute osseous abnormalities.. IMPRESSION: ?? * ??Increased displacement at L4-5 * ??Stable postoperative changes at L5-S1.. Finalized by Ty De Los Santos MD on 06/08/2025 10:19 AM Procedure Note Ty De Los Santos MD - 06/08/2025 HISTORY: Pain TECHNIQUE: Frontal lateral and spot views of the lumbar spine wereobtained. . COMPARISON: 03/20/2019. FINDINGS: Right-sided interpedicular screws are again seen at L5-S1.Metallic cages are seen in the L5-S1 intervertebral disc space. There is increasing disc space narrowing at L4-5 since the prior study.The vertebral body heights and remaining disc spaces are well-maintained.There is no evidence for an acute osseous abnormalities.. IMPRESSION: * Increased displacement at L4-5 * Stable postoperative changes at L5-S1.. Finalized by Ty De Los Santos MD on 06/08/2025 10:19 AM Authorizing ProviderResult TypeResult StatusMattOur Lady of the Sea Hospital DIAGNOSTIC IMAGING ORDERABLESFinal Result * (ABNORMAL) Mammography screening bilateral with CAD (05/30/2025 3:08 PM EDT) Anatomical RegionLateralityModalityBreastBilateralMammographySpecimen (Source) Anatomical Location / LateralityCollection Method / VolumeCollection Time Received Time05/31/2025 12:17 PM EDT Narrative 05/31/2025 12:22 PM EDT LAURO PINTO 1975 [id number] EXAM: MAMM SCREENING BILATERAL W CAD, 05/30/2025 [...] at anterior depth 2 cm from the nipple.Mass in the right axilla seen on the MLO projection, likely representing a small lymph node. No suspicious calcifications or architectural distortion. Left breast: Negative for malignancy. IMPRESSION: Right breast mass and right axillary mass. Right breast/axillary ultrasound recommended for furtherassessment. BI-RADS: BI-RADS 0 - Incomplete. Needs additional imaging evaluation. RECOMMENDATION: ??Additional imaging required. RISK ASSESSMENT: TC Lifetime risk: 11.03%. The patient's reported personal and family medical history was used calculate their Tyrer-Cuzick lifetime risk of malignancy. Scores less than 20% are not considered high risk per ACR guidelines and patient should continue with the above recommendation. Finalized by Joss Richey MD on 05/31/2025 12:22 PM 0A b ADDITIONAL I FDA Accredited Performing Facility: [facility] - Mammography/DEXA Imaging [address] [facility] [id number] Procedure Note Joss Richey MD - 05/31/2025 LAURO Brown THADDEUS 1975 [id number] EXAM: MAMM SCREENING BILATERAL W CAD, 05/30/2025 2:49 PM CLINICAL INDICATIONS: Screening, Visit for screening mammogram COMPARISON: No prior studies currently available for comparison. TECHNIQUE: Bilateral digital tomosynthesis MLO and CC views of the breastswere obtained, with creation of synthetic 2D views. Computer aideddetection was utilized. FINDINGS: There are scattered areas of fibroglandular density. Right breast: Mass at the 9:00 position of the right breast at anteriordepth 2 cm from the nipple. Mass in the right axilla seen on the MLOprojection, likely representing a small lymph node. No suspiciouscalcifications or architectural distortion. Left breast: Negative for malignancy. IMPRESSION: Right breast mass and right axillary mass. Right breast/axillaryultrasound recommended for further assessment. BI-RADS: BI-RADS 0 - Incomplete. Needs additional imaging evaluation. RECOMMENDATION: Additional imaging required. RISK ASSESSMENT: TC Lifetime risk: 11.03%. The patient's reported personal and family medical history was usedcalculate their Tyrer-Cuzick lifetime risk of malignancy. Scores less than20% are not considered high risk per ACR guidelines and patient shouldcontinue with the above recommendation. Finalized by Joss Richey MD on 05/31/2025 12:22 PM 0A b ADDITIONAL I FDA Accredited Performing Facility: [facility]ammography[facility]DEXA Imaging [address] [facility] [id number] Authorizing ProviderResult TypeResult Jen Park DOIMG MAMMOGRAPHY ORDERABLESFinal Result * Fluoroscopy less than one hour (03/30/2025 11:31 AM EDT)Specimen (Source) Anatomical Location / LateralityCollection Method / VolumeCollection Time Received Time Narrative SYSTEMGENERATED, DOCUMENTATION - 03/30/2025 11:31 AM EDT No Reading Required. This procedure does not require a formal dictation. Non-Radiologist provider performed procedures can be reviewed under Post-Op, Procedure or Progress notes. For full report details, please reach out to your physician. ??Effective 01/21/2021 this image will be visible to you in [employer]. Authorizing ProviderResult TypeResult Bobbi Perry MDIMG FLUOROSCOPY ORDERABLESFinal Result from Last 3 Months Insurance * Guarantor: Lauro Pinto AAc TypeRelation to PatientDate of BirthPhone Billing AddressPersonal/WxlifdBdhh1975 [facility] [address] Care Teams Team MemberRelationshipSpecialtyStart DateEnd Toney Jose DO [address] [place] [address] PCP - GeneralFamily Afaheucz52/21/25
--- OUTSIDE RECORDS SUMMARY | 2025-06-27 06:17 | XMS_ITS | Encounter Summary ---
Author Organization [facility] Address [address] [facility] [place] [address] Care Team Providers Care Catheter Finisher And Inspector Name Role Phone House, Toney Melara MD Primary Care Provider Encounter Details DateTypeDepartmentCare Team (Latest Contact Info)Dmqjdxidrcv30/09/2025Orders Only MAZIN MENDOZA [address] [place] [address] Simi Weldon LPN [address] [facility] Social History Tobacco UseTypesPacks/DayYears UsedDateSmoking Tobacco: NeverSmokeless Tobacco: NeverCommentsNoSex and Gender InformationValueDate RecordedSex Assigned at BirthNot on fileLegal AimUgwnsq73/15/2023 7:23 PM EDTGender IdentityNot on fileSexual OrientationNot on filedocumented as of this encounter Plan of Treatment DateTypeDepartmclaren thumb regionCare Team (Latest Contact Info)Yzfxbgvczlz36/29/2025 2:30 PM EDTOffice Visit MAZIN MENDOZA [address] [place] [address] [place] [address] Lindsey Collier PA [address] [place] [address] 08/08/2025 2:30 PM ESTOffice Visit MAZIN MENDOZA [address] [place] [address] [place] [address] Lindsey Collier, PA [address] [place] [address] 08/22/2025 1:20 PM ESTOffice Visit [facility] [address] [place] [address] Thi Stephens MD [address] [place] [address] documented as of this encounter Procedures Procedure NamePriorityDate/TimeAssociated DiagnosisCommentsPAP SMEARRoutine 05/29/2025 12:00 AM EDTdocumented in this encounter Results * Pap Smear (05/29/2025 12:00 AM EDT)Specimen (Source)Anatomical Location / LateralityCollection Method / VolumeCollection TimeReceived TimeSwabCervical swab / Unknown Narrative Authorizing ProviderResult TypeResult StatusFazio Nurse Noms [facility]cp ObLAB CYTOLOGY ORDERABLESFinal ResultPerforming OrganizationAddressCity/State/ZIP CodePhone Number EXTERNAL LAB documented in this encounter Visit Diagnoses Not on filedocumented in this encounter Care Teams Team MemberRelationshipSpecialtyStart DateEnd Date Toney Park MD [address] [place] [address] PCP - GeneralFamily Lsysmopk30/4/24documented as of this encounter
--- OUTSIDE RECORDS SUMMARY | 2025-06-27 06:17 | XMS_ITS | Clinical Summary ---
Author Organization [facility] Address [address] [place] [address] Care Team Providers Care Staple Shear Operator Name Role Phone Twila Yancey Primary Care Provider Allergies No known active allergies Medications MedicationSigDispense QuantityRefillsLast FilledStart DateEnd DateStatus GABAPENTIN (NEURONTIN ORAL) Take by mouth.Active acetaminophen (TYLENOL) 325 mg tablet Take 650 mg by mouth every 6 hours as needed.Active traMADOL 50 mg tablet Indications:Postlaminectomy syndrome,Lumbar spondylosis,Lumbar facet arthropathy Take 1 tablet by mouth every 4 hours as needed for Pain. 20 tablet ctive omeprazole 10 mg capsule Take 1 capsule by mouth twice daily.08/23/2012ctive tiZANidine (ZANAFLEX) 4 mg tablet Take 1 tablet by mouth twice daily as needed. 60 tablet ctive gabapentin (NEURONTIN) 300 mg capsule Take 1 capsule by mouth three times daily. 90 capsule ctive amitriptyline 25 mg tablet Take 1 tablet by mouth daily at bedtime. 30 tablet ctive TENS Units Libby 1 Device as needed. 1 Device ctive PE/HYDROCOD/ACETAMINOPHEN/CPM (XZPKZCOY-NJE-KG-ACETAMINOPHEN ORAL) Take by mouth.Active RANITIDINE HCL ORAL Take by mouth.Active Family History Medical HistoryRelationCommentsDiabetesMotherHypertensionMotherRelationStatus CommentsFatherAliveMotherAlive Social History Tobacco UseTypesPacks/DayYears UsedDateSmoking Tobacco: NeverSmokeless Tobacco: NeverAlcohol UseStandard Drinks/WeekCommentsYes0 (1 standard drink = 0.6 oz pure alcohol)socialCommentsNoSex and Gender InformationValueDate RecordedSex Assigned at BirthNot on fileLegal WpkPzanou53/02/2012 10:16 AM ESTGender IdentityNot on fileSexual OrientationNot on fileOccupationIndustryJob Start Date Job End DateUNKNOWNNot on fileNot on fileNot on file Last Filed Vital Signs Vital SignReadingTime TakenCommentsBlood Tmcxtpxb124/8109/21/2012 11:15 AM EST Nymfm176309/21/2012 11:15 AM BTVCwnlaqbojys28.4 ??C (97.5 ??F)09/21/2012 11:15 AM ESTRespiratory Wzwx040509/21/2012 11:15 AM ESTOxygen Qbxgwxjaqg99%09/21/2012 11:15 AM ESTInhaled Oxygen Concentration--Lgaovb677.4 kg (250 lb)08/23/2012 9:41 AM EUKNxamxm557.4 cm (6' 1 )04/29/2012 12:02 PM EDTBody Mass Index32.9808 12:02 PM EDT Plan of Treatment Health MaintenanceDue DateLast DoneCommentsAnxiety Xmljnxqwc49/21/1994Depression Swnbsqggw05/21/1994HIV Iauxtxcxw21/21/1994Hepatitis C Jelisffyy77/21/1994 DTaP,Tdap,Td Vaccine (1 - Tdap)01/24/1995Hepatitis B Vaccine (1 of 3 - 19+ 3- dose series)01/24/1995Cervical Cancer Chxlsaqpu32/21/1997Mammogram Screening 2016CT Igrwkskhowsj82/21/2021Cologuard (FIT-DNA)01/24/2021olonoscopy 01/24/2021olorectal Cancer Ygntorznc18/21/2021Diabetes Gqzbuspdr96/21/2021Fecal Occult Blood1Lipid Tdxrssxzf70/21/0625Xyfrtubwensvf29/21/2021ovid-19 Vaccine (2024- season)2025Influenza Vaccine (#1)2025 Insurance * Guarantor: Mali PintoAccorhianna TypeRelation to PatientDate of BirthPhone Billing AddressSelf PkqFrdt4601/25/1975 [address] [place] [address] Care Teams Team MemberRelationshipSpecialtyStart DateEnd Date Twila Yancey [address] [facility] [place] [address] PCP - GeneralInternal Medicine03/01/12
--- OUTSIDE RECORDS SUMMARY | 2025-06-27 06:17 | XMS_ITS | CCD ---
Author Organization [facility] Care Team Providers Care Button Sewer Name Role Phone MARKER, AMY Admitting Unavailable MARKER, AMY Attending Unavailable SOFIYA COLE Primary Care Unavailabl RUPINDER Roblero Consulting Unavailable MARKER, AMY Consulting Unavailable AMBREEN ZENDEJAS Consulting Unavailable None, No PCP Unavailable Unavailable Unavailable Unavailable Toney Montoya Unavailable Melody Brandon Unavailable Sofiya Cole MD Primary Care Provider [phone] Korey Ford MD Attending Provider Toney Montoya DO Primary Care Provider Toney Montoya MD Primary Care Provider Toney Montoya DO Primary Care Provider Sofiya Cole MD Primary Care Provider Jorge Aguilar DO Attending Provider [phone] Lauren Jorge Admitting Unavailable Jorge Aguilar Attending Unavailable Sofiya Cole Primary Care Unavailable Lauren, Jorge Admitting Unavailable Jose Aguilary Attending Unavailable Korey Ford Admitting Unavailable Korey Ford Attending Unavailable Sofiya Cole Primary Care Unavailable Sofiya Cole MD Primary Care Provider [phone] Jorge Aguilar DO Attending Provider [phone] Toney Montoya DO Primary Care Provider [...] TONEY P Primary Care Unavailable PERRY, ZEESHAN Renteira Attending Unavailable PERRY, ZEESHAN Renteria Referring Unavailable [...] P Attending Unavailable HOUSE, DO TONEY P Admitting Unavailable HOUSE, TONEY P Primary Care Unavailable [...] Unavailable HOUSE, DO TONEY P Attending Unavailable Logan, Korey Attending Unavailable HOUSE, TONEY P Primary Care Unavailable Korey Ford Admitting Unavailable Logan, Korey Attending Unavailable HOUSE, TONEY P Primary Care Unavailable Allergies Allergy ClassificationReported Allergen(s)Allergy TypeDate of OnsetReaction(s) Facility (1 source)AmoxicillinDrug AllergyHeartland [facility]al [facility] Services [facility] Other (1 source)AmoxicillinDrug Snuirfb82-00-4330HaucmtlbfRegency Hospital Company Repository Medications Current Medications MedicationDrug Class(es)DatesSig (Normalized)Sig (Original)acetaminophen 500 mg oral tablet (13 sources)take 1 tablet by mouth every six hours as needed for pain acetaminophen (TYLENOL EXTRA STRENGTH) 500 mg tablet Take 1 tablet (500 mg total) by mouth every 6 (six) hours as needed for pain. [id number] 200 actuat albuterol 0.09 mg/actuat metered dose inhaler (2 sources)beta2-Adrenergic AgonistStart: 16-79-0025znsi 2 puff(s) by inhalation four times daily as neededAlbuterol Sulfate HFA 108 (90 Base) MCG/ACT 2 puffs Inhalation qid prn Aug, ActiveStart: 09-05-2020 End: 44-86-2274ulbe 2 puff(s) by mouth every four hoursVENTOLIN HFA 90 mcg/actuation inhaler INHALE 2 PUFFS BY MOUTH EVERY 4 HOURS DIRECTED 09/05/2020 05/18/2024 Discontinuedamitriptyline hydrochloride 100 mg oral tablet (18 sources)Tricyclic AntidepressantStart: 05-14-2024 End: 39-74-0267zbky 1 tablet by mouth once daily at bedtimeamitriptyline (ELAVIL) 100 mg tablet Take 1 tablet (100 mg total) by mouth once daily at bedtime. 05/14/2024 ActiveAzithromycin (1 source)Macrolide AntimicrobialAzithromycin ActivebusPIRone hydrochloride 10 mg oral tablet (20 sources)Start: 04-26-2024 End: 78-53-2135sckNJRhva (BUSPAR) 10 mg tablet Take 1 tablet (10 mg total) by mouth. 04/26/2024 Activetake 1 tablet by mouth in the morningbusPIRone (BUSPAR) 5 mg tablet Take 1 tablet (5 mg total) by mouth in the morning. Activecalcium carbonate 1250 mg oral tablet (19 sources)Start: 79-14-5685eavcche carbonate (OS-CHRIS) 500 mg calcium (1,250 mg) tablet 12/05/2021 Active End: 65-38-7567href 1 tablet by mouth in the morningcalcium carbonate (Os-Chris) 1250 (500 Ca) MG tablet Take 1 tablet by mouth in the morning and 1 tablet before bedtime. 09/19/2024 Discontinuedcariprazine 1.5 mg oral capsule (20 sources)Atypical AntipsychoticStart: 10-01-2020 End: 37-07-0231qbti 1 capsule by mouth in the morningVRAYLAR 1.5 mg capsule Take by mouth in the morning. 10/01/2020 ActiveVraylar Activecholecalciferol 0.125 mg oral tablet (18 sources)Vitamin D End: 37-95-3041sowb 1 tablet by mouth in the morningcholecalciferol, vitamin D3, 5,000 units tablet Take 1 tablet (5,000 Units total) by mouth in the morning. Activecitalopram 20 mg oral tablet (20 sources)Serotonin Reuptake InhibitorStart: 04-26-2024 End: 70-97-8591bkta 1 tablet by mouth in the morningcitalopram (CeleXA) 20 mg tablet Take 1 tablet (20 mg total) by mouth in the morning. 04/26/2024 Active take 1 tablet by mouth once dailycitalopram (CeleXA) 10 MG tablet Take 10 mg by mouth Daily Activedicyclomine hydrochloride 20 mg oral tablet (20 sources)AnticholinergicStart: 56-26-0035yhoh 1 tablet by mouth every six hoursdicyclomine (Bentyl) 20 MG tablet Take 20 mg by mouth every 6 (six) hours 08/24/2023 Activeferrous gluconate 324 mg oral tablet (20 sources)Start: 98-74-6989txjx 1 tablet by mouth at mealtimeferrous gluconate (Fergon) 324 (38 Fe) MG tablet Take 324 mg by mouth in the morning. Take with meals. 08/07/2024 ActivehydrOXYzine hydrochloride 10 mg oral tablet (2 sources)AntihistamineStart: 81-20-4473xyna 1 tablet by mouth three times daily as needed for anxietyhydrOXYzine (ATARAX) 10 mg tablet Take 1 tablet (10 mg total) by mouth 3 (three) times a day as needed for anxiety. 01/24/2025 Activelevothyroxine sodium 0.2 mg oral tablet (20 sources)l-ThyroxineStart: 09-11-2024 End: 63-69-5800ykhh 1 tablet by mouth once dailylevothyroxine (Synthroid, Levoxyl) 200 MCG tablet Indications: Postoperative hypothyroidism Take 1 tablet (200 mcg) by mouth Daily 90 tablet 3 09/11/2024 09/06/2025 ActiveStart: 09-11-2024 End: 62-08-7860odob 1 tablet by mouth once dailylevothyroxine (Synthroid, Levoxyl) 50 MCG tablet Indications: Postoperative hypothyroidism Take 1 tablet (50 mcg) by mouth Daily 90 tablet 3 09/11/2024 09/06/2025 ActiveStart: 02-19-2024 End: 65-37-9872femd 1 tablet by mouth before mealtimelevothyroxine (Synthroid, Unithroid) 300 MCG tablet Take 1 tablet by mouth in the morning. Take before meals. 02/19/2024 09/11/2024 Discontinued (Dose adjustment)Start: 84-45-4750jvdf 300 ug by mouth in the morninglevothyroxine sodium (EUTHYROX ORAL) Take 300 mcg by mouth in the morning. 01/01/2022 ActiveStart: 62-86-8180fakh 1 tablet by mouth once dailyEuthyrox 200 MCG Oral Tablet TAKE 1 TABLET BY MOUTH ONCE DAILY Quantity: 30 Refills: 0 Ordered: 05-Dec-2021 DO Start : 05-Dec-2021 Active End: 23-81-7432qqge 1 tablet by mouth in the morninglevothyroxine (EUTHYROX) 50 MCG tablet Take 1 tablet (50 mcg total) by mouth in the morning. 05/18/2024 Discontinued (Ineffective)LORazepam 0.5 mg oral tablet (10 sources)BenzodiazepineStart: 12-14-1478xazv 1 tablet by mouth in the morning, then take 1 tablet by mouth at bedtimeLORazepam (ATIVAN) 0.5 mg tablet Take 1 tablet (0.5 mg total) by mouth in the morning and 1 tablet (0.5 mg total) before bedtime. 02/12/2025 Activemeclizine hydrochloride 25 mg oral tablet (17 sources)AntiemeticStart: 36-61-2419ftqkjuvux (Antivert) 25 MG tablet Take 25 mg by mouth as needed in the morning and 25 mg as needed at noon and 25 mg as needed in the evening for dizziness. 09/14/2024 Activemeloxicam 7.5 mg oral tablet (20 sources)Nonsteroidal Anti-inflammatory DrugStart: 30-85-2752iukc 1 tablet by mouth in the morningmeloxicam (MOBIC) 7.5 mg tablet Take 1 tablet (7.5 mg total) by mouth in the morning. 06/07/2024 ActivemethylPREDNISolone (1 source)CorticosteroidStart: 86-10-3835vtwpkbAKMHKNKzgddy (MEDROL, GEMMA,) 4 mg tablet follow package directions 21 tablet 06/07/2025 Activemirtazapine 30 mg oral tablet (20 sources)Start: 25-12-3602cfas 1 tablet by mouth at bedtimemirtazapine (Remeron) 30 MG tablet Take 30 mg by mouth at bedtime 06/28/2024 Active omeprazole 40 mg delayed release oral capsule (20 sources)Proton Pump Inhibitor End: 10-72-4856yyqb 1 capsule by mouth once dailyomeprazole (PriLOSEC) [address] capsule Take 40 mg by mouth Daily ActivePriLOSEC Active Completed/Discontinued Medications MedicationDrug Class(es)DatesSig (Normalized)Sig (Original)ascorbic acid 500 mg oral capsule (2 sources)Vitamin C End: 83-59-0849ufcd 1 capsule by mouth once dailyAscorbic Acid (Vitamin C) 500 MG capsule Take 1 each by mouth Daily 09/19/2024 Discontinuedaspirin 845 mg / caffeine 65 mg oral powder (1 source)Platelet Aggregation Inhibitor, Nonsteroidal Anti-inflammatory Drug, Central Nervous System Stimulant, Methylxanthine End: 64-70-6070ipwqdgs-caffeine 845-65 mg powder in packet Take by mouth as needed (headache). 05/18/2024 Discontinueddiclofenac sodium 50 mg delayed release oral tablet (1 source)Nonsteroidal Anti-inflammatory DrugStart: 06-16-2023 End: 54-37-1283mkwm 1 tablet by mouth in the morning, then take 1 tablet by mouth at bedtimediclofenac (VOLTAREN) 50 mg EC tablet Take 1 tablet (50 mg total) by mouth in the morning and 1 tablet (50 mg total) before bedtime. 60 tablet 06/16/2023 05/18/2024 DiscontinueddimenhyDRINATE 50 mg oral tablet (1 source) End: 39-50-4528yvpc 1 tablet by mouth once daily as neededdimenhyDRINATE (DRAMAMINE) 50 mg tablet Take 50 mg by mouth nightly as needed for movement disorders. 05/18/2024 Discontinueddocusate sodium 100 mg oral capsule (6 sources)Start: 12-05-2021 End: 18-08-2775xnqo 1 capsule by mouth twice dailyDocusate Sodium 100 MG Oral Capsule TAKE 1 CAPSULE BY MOUTH TWICE DAILY Quantity: 28 Refills: 0 Ordered: 05-Dec-2021 DO Start : 05-Dec-2021 Activedoxycycline monohydrate 100 mg oral capsule (1 source)Tetracycline-class DrugStart: 92-18-3245nwko 1 capsule by mouth every twelve hoursDoxycycline Monohydrate 100 MG 1 capsule Orally every 12 hrs for 7 days Dec, Not-Takingfluticasone propionate 0.05 mg/actuat metered dose nasal spray (2 sources)CorticosteroidStart: 33-53-5962qewu 1 spray(s) nasal route once daily Fluticasone Propionate 50 MCG/ACT 1 spray in each nostril Nasally Once a day for 30 day(s) Dec, Not-TakingStart: 11-06-2020 End: 97-96-7812wrya 1 spray(s) nasal route once dailyfluticasone propionate (FLONASE) 50 mcg/actuation nasal spray Indications: Chronic rhinitis Administer 1 spray into each nostril daily. 15.8 mL 12 11/06/2020 05/18/2024 Discontinued magnesium gluconate 550 mg oral tablet (1 source) End: 73-00-1728aeum 1 tablet by mouth in the morning, then take 1 tablet by mouth at bedtimemagnesium 30 mg tablet Take 1 tablet (30 mg total) by mouth in the morning and 1 tablet (30 mg total) before bedtime. 05/18/2024 Discontinued methylPREDNISolone 4 MG Oral Tablet Therapy Pack (1 source)Start: 51-57-5633rjtjnaJUOIEWBnftvg 4 MG Oral Tablet Therapy Pack TAKE BY MOUTH DIRECTED ON INSIDE OF PACKAGE Quantity: 21 Refills: 0 Ordered: 07-Aug-2021 DO Start : 07-Aug-2021 ActiveOmeprazole TBEC (10 sources)Omeprazole TBEC Quantity: 0 Refills: 0 Ordered: 07-Apr-2021 DO Active predniSONE 10 mg oral tablet (2 sources)Start: 08-12-2022 End: 42-68-1336bmkf 1 tablet by mouth twice daily, then take 1 tablet by mouth once dailypredniSONE (DELTASONE) 10 mg tablet TAKE 1 TABLET BY MOUTH TWICE DAILY FOR 7 DAYS. THEN TAKE 1 TABLET ONCE DAILY FOR 7 DAYS UNTIL GONE 08/12/2022 05/18/2024 DiscontinuedpredniSONE Activesertraline 25 mg oral tablet (7 sources)Serotonin Reuptake Inhibitor End: 73-39-2100ykhw 1 tablet by mouth once dailysertraline (Zoloft) 25 MG tablet Take 1 tablet by mouth Daily 09/19/2024 DiscontinuedZoloft ActiveSertraline HCl CONC (10 sources)Sertraline HCl CONC Quantity: 0 Refills: 0 Ordered: 07-Apr-2021 DO ActivetraMADol hydrochloride 50 mg oral tablet (2 sources)Opioid AgonistStart: 29-11-8386jtqa 1 tablet by mouth every six hours as needed for paintraMADol HCl - 50 MG Oral Tablet TAKE 1 TABLET Every 6 hours As Needed for pain Quantity: 12 Refills: 0 Ordered: 05-Dec-2021 Edy Dominguez MD Start : 05-Dec-2021 ActivetraZODone hydrochloride 50 mg oral tablet (1 source)Serotonin Reuptake InhibitorStart: 09-19-2020 End: 50-77-9424zpnJYLsis (DESYREL) 50 mg tablet 09/19/2020 05/18/2024 Discontinued Problems Active Problems Problem ClassificationProblemDateDocumented DateEpisodic/ChronicAbdominal pain (1 source)Pain in pelvis; Translations: [Pelvic and perineal pain]05-29-2025 EpisodicAdministrative/social admission (5 sources)Patient encounter status; Translations: [Dietary counseling and surveillance]90-19-8334LaaxavyfSlzcdxv disorders (2 sources)Anxiety disorder, unspecified; Translations: [ANXIETY DISORDER UNSPECIFIED]Onset: 88-76-7113OjoehekJegpzg of thyroid (12 sources)Malignant tumor of thyroid gland; Translations: [Malignant neoplasm of thyroid gland]15-15-2238GcocuprStiqywuprtmzc of surgical procedures or medical care (9 sources)Postoperative hypothyroidism; Translations: [Postprocedural hypothyroidism]68-55-3957VgdohzgOhlyeegxrn associated with dizziness or vertigo (4 sources)Dizziness and giddiness; Translations: [DIZZINESS AND GIDDINESS] Onset: 74-32-0868VwwmrrdwGdqnkfucxp and other anemia (2 sources)Iron deficiency anemia; Translations: [Iron deficiency anemia, unspecified]36-27-3914JktddkdcXldnyaegs of lipid metabolism (1 source)Hyperlipidemia, unspecified; Translations: [Hyperlipidemia, unspecified]Onset: 36-72-7726OhyuwaxPbsksjcdh hypertension (2 sources)Essential (primary) hypertension; Translations: [Essential (primary) hypertension]Onset: 03-07-5528XwaczzpTwjuroddu disorders (2 sources)Menorrhagia; Translations: [Excessive and frequent menstruation with regular cycle]63-45-0760DwdtfakWlkfyqxattp deficiencies (4 sources)Vitamin D deficiency; Translations: [Vitamin D deficiency, unspecified]81-63-1005RdkprynYrbloyyztlmyub (13 sources)Osteoarthritis of left knee joint; Translations: [Unilateral primary osteoarthritis, left knee]Onset: 056740-72-2153FkzpuypHntkn connective tissue disease (1 source)Arthrodesis status; Translations: [ARTHRODESIS STATUS]Onset: 44-16-6282PycemwzjRiqwd female genital disorders (4 sources)Abnormal uterine bleeding; Translations: [Other specified abnormal uterine and vaginal bleeding]88-63-5997TlcoqcjXmdxq female genital disorders (1 source)Pain in female genitalia on intercourse; Translations: [Unspecified dyspareunia]45-76-4053KnffnhtHwxeu hereditary and degenerative nervous system conditions (1 source)Drug induced akathisia; Translations: [Drug induced akathisia]Onset: 34-98-7812TohmssbRtfwg lower respiratory disease (1 source)Shortness of breath; Translations: [SHORTNESS OF BREATH]Onset: 65-04-4873LdllloawGgdnj nervous system disorders (2 sources)Acute postoperative pain; Translations: [Other acute postoperative pain]EpisodicOther nutritional; endocrine; and metabolic disorders (13 sources)Body mass index 40+ - severely obese; Translations: [Body mass index (BMI) 40.0-44.9, adult]Onset: 817053-39-7656XonuxjtJpdiq nutritional; endocrine; and metabolic disorders (4 sources)Severe obesity; Translations: [Class 3 severe obesity due to excess calories without serious comorbidity with body mass index (BMI) of 40.0 to 44.9 in adult ([facility])]41-91-7272UaulvayAaqgj nutritional; endocrine; and metabolic disorders (2 sources)Obesity, unspecified; Translations: [Obesity, unspecified]Onset: 75-56-9573UqkmklnKbnwt screening for suspected conditions (not mental disorders or infectious disease) (1 source)Encounter for screening mammogram for malignant neoplasm of breast; Translations: [Encounter for screening mammogram for malignant neoplasm of breast]Onset: 73-41-5485FdcpgoryLekatwqja heart disease (1 source)Personal history of pulmonary embolism; Translations: [PERSONAL HISTORY PULMONARY EMBOLISM]Onset: 53-61-8928FwlmgovtUqiafqdb codes; unclassified (1 source)Insomnia, unspecified; Translations: [Insomnia, unspecified]Onset: 89-94-9513JcvpgotfGeaveeryly arthritis and related disease (1 source)Rheumatoid arthritis, unspecified; Translations: [Rheumatoid arthritis, unspecified]Onset: 79-78-0083XnzctdvWdemhortets; intervertebral disc disorders; other back problems (20 sources)Lumbosacral spondylosis without myelopathy; Translations: [Spondylosis without myelopathy or radiculopathy, lumbosacral region]Onset: 183198-49-2723HmjyqwrNkpohtj disorders (20 sources)Nontoxic goiter, unspecified; Translations: [Thyroid nodule]Onset: 398669-32-8548SkhrzomNbypqvk tract infections (1 source)Urinary tract infection, site not specified; Translations: [UTI SITE NOT SPECIFIED]Onset: 54-06-6240Hdmnlopa Past or Other Problems Problem ClassificationProblemDateDocumented DateEpisodic/ChronicDeficiency and other anemia (1 source)Iron deficiency anemia, unspecified; Translations: [Iron deficiency anemia, unspecified]Onset: 40-77-9516CnfbemukRxenk disorders and dislocations; trauma-related (13 sources)Acute tear of meniscus of left knee; Translations: [Unspecified tear of unspecified meniscus, current injury, left knee, initial encounter]Onset: 032151-14-8830MifbjbfiHbtk disorders (13 sources)Mood disordersOnset: 188058-53-8378Hnumd lower respiratory disease (1 source)Unspecified acute lower respiratory infection; Translations: [Unspecified acute lower respiratory infection]Onset: 11-32-5861MchztejnJswcx non-traumatic joint disorders (12 sources)Hip pain; Translations: [Pain in right hip]Onset: 07-18-2018 16-50-4219YzgquimgMherg non-traumatic joint disorders (1 source)Pain in right hip joint; Translations: [Pain in right hip]Onset: 546518-98-2635EoyqsardFlnmc non-traumatic joint disorders (1 source)Knee painOnset: 57-08-7959WoygilqrEyhsboproyr; intervertebral disc disorders; other back problems (20 sources)Peripheral neuritis; Translations: [Radiculopathy, lumbar region] Onset: 992944-35-1539JchbzmjjGpmodemsmybp (1 source)Cough R05.9Onset: 08-16-2021 Resolved: 40-99-4266Rhivn infection (1 source)COVID-19Onset: 08-16-2021 Resolved: 08-16-2021 Results Test NameValueInterpretationReference RangeFacilityECG 12-LEADon 71-01-4946Dkx[address] [address] Electrocardiograph Report Signed Patient: LAURO PINTO MR#: [id number] : 1975 Acct:[id number] Age/Sex: 50 / F ADM Date: 06/14/25 Loc: PST Attending Dr: Jorge Aguilar D.O. Ordering Physician: Jorge Aguilar D.O. Date of Service: 06/14/25 Procedure(s): ECG 12 lead Accession Number(s): [id number] cc: [facility] Test Date: 2025-06-14 Pat Name: LAURO PINTO Department: Room: - Gender: Female Biochemistry Technician: : 1975 Requested By: JORGE AGUILAR Order Number: [id number] Reading MD: MICHELLE HIDALGO M.D. Measurements Intervals [place] Rate: 61 P: 56 SC: 138 QRS: -18 QRSD: 86 T: 24 QT: 407 QTc: 411 Interpretive Statements SINUS RHYTHM POSSIBLE LEFT ATRIAL ENLARGEMENT [-0.1mV P WAVE IN V1/V2] Abnormal ECG Compared to ECG 11/03/2024 13:58:01 No significant changes Electronically Signed On 06-14-2025 14:08:13 EDT by MICHELLE HIDALGO M.D. Dictated By: MICHELLE HIDALGO Signed By: 06/14/25 1408 DD/ 1155 TD/TT: Machine Wood Sander:TBHRadiology, Radiologist, - 06/14/2025 [place] [address] Electrocardiograph Report Signed Patient: LAURO PINTO MR#: [id number] : 1975 Acct:[id number] Age/Sex: 50 / F ADM Date: 06/14/25 Loc: PST Attending Dr: Jorge Aguilar D.O. Ordering Physician: Jorge Aguilar D.O. Date of Service: 06/14/25 Procedure(s): ECG 12 lead Accession Number(s): [id number] cc: [facility] Test Date: 2025-06-14 Pat Name: LAURO PINTO Department: Room: - Gender: Female Biochemistry Technician: : 1975 Requested By: JORGE AGUILAR Order Number: [id number] Reading MD: MICHELLE HIDALGO M.D. Measurements Intervals [place] Rate: 61 P: 56 SC: 138 QRS: -18 QRSD: 86 T: 24 QT: 407 QTc: 411 Interpretive Statements SINUS RHYTHM POSSIBLE LEFT ATRIAL ENLARGEMENT [-0.1mV P WAVE IN V1/V2] Abnormal ECG Compared to ECG 11/03/2024 13:58:01 No significant changes Electronically Signed On 06-14-2025 14:08:13 EDT by MICHELLE HIDALGO M.D. Dictated By: MICHELLE HIDALGO Signed By: 06/14/25 1408 DD/ 1155 TD/TT: Machine Wood Sander: [facility] HealthcareRadiology Study observation (narrative)[facility] 12-LEAD Ordered By: Radiologist Radiology on 67-13-0002JIVX [employer] Work Phone: coding Summaryon 52-66-0542Zuifjm SummaryHTMLBase 64 AyonwhwtMIl8wSt+PGhlYWQ+ST9CLYNlT87olHBodC9qX4GZDEnNHdcaGDAWOWxBIpIccuVwGT5htGXl ZXJu [file] OiB (more content not included)...[facility] CenterXR SP[facility] LUM[facility] 2 OR 3 VWSon 58-59-9536XQ SPINE LUMBAR 2 OR 3 VWSXR SPINE LUMBAR 2 OR 3 VWS HISTORY: Pain TECHNIQUE: Frontal lateral and spot views of the lumbar spine were obtained. . COMPARISON: 03/20/2019. FINDINGS: Right-sided interpedicular screws are again seen at L5-S1. Metallic cages are seen in theL5-S1 intervertebral disc space. There is increasing disc space narrowing at L4-5 since the prior study. The vertebral body heights and remaining disc spaces are well-maintained. There is no evidence for an acute osseous abnormalities.. IMPRESSION: * Increased displacement at L4-5 * Stable postoperative changes at L5-S1.. Finalized by Ty De Los Santos MD on 06/08/2025 10:19 AMNormalProMedica San Francisco Va Medical CenterIGP,APTIMA HPV,AGE GDLNon 46-19-1973AND GDLN ACOG TESTINGNote.NOMS HealthcareComment on above:TESTS RESULT FLAG UNITS REF RANGE LAB Clinician Provided Cytology Information Source.............Cervix;Endocervix No. of containers..01 ThinPrep Vial Age Stano GARDENIAOG Kyleigh... FLAG LEGEND: L-Low Normal,H-High Normal,LL-Alert Low,HH-Alert High <-Panic Low,>-Panic High,A-Abnormal,AA-Critical Abnormal Performed at: 01 =[address] [address] Salome Li MD, HPV APTIMANegativeNegativeNOMS HealthcareComment on above:This nucleic acid amplification test detects fourteen high- risk HPV types (16,18,31,33,35,39,45,51,52,56,58,59,66,68) without differentiation. Performed at: =[address] [id number] [place]: Salome Li MD, Phone: [phone] Performed at: [address] [id number] [place]: Salome Li MD, Phone: [phone] IGP, APTIMA HPV, RFX 16/18,45Note.NOMS HealthcareComment on above:TESTS RESULT FLAG UNITS REF RANGE LAB DIAGNOSIS: 02 NEGATIVE FOR INTRAEPITHELIAL LESION OR MALIGNANCY. TRICHOMONAS VAGINALIS IS PRESENT. Specimen adequacy: 02 Satisfactory for evaluation. Endocervical and/or squamous metaplastic cells (endocervical component) are present. Performed by: 02 Shayy Mclain Sandblaster Supervisor ([facility]) . 02 Note: Note 02 The Pap [...] <-Panic Low,>-Panic High,A-Abnormal,AA-Critical Abnormal Performed at: [address] [address] Salome Li MD, BRUSH-SPATULA CERVIX ENDOCERVIX CLINISYNCNOMS [facility] Private HospitalRad - Mammography Reporton [id number] - Mammography [id number]#1.00OTGTCincinnati VA Medical CenterReminder Messageson 21-74-9480Sawtcsqk Messages From: TONEY MONTOYA DO To: [facility] Clinical Pool ([facility]); Sent: 06/04/2025 07:49:47 EDT ! Show up: 06/04/2025 07:49:47 EDT Subject: Results Follow Up Actions: Call the patient with result(s) Due Date/Time: 06/05/2025 07:49:00 EDT Reminder Comments: looks okay Results: Date Result Name Ind Value Ref Range 06/01/2025 12:29 T4 12.11 mcg/dL (6.09 - 12.23) 06/01/2025 12:29 TSH (L) 0.07 mcIU/mL (0.45 - 5.33) Patient notified of [facility] FoundationRad - Other Radiology Reporton [id number] - Other Radiology Report [id number]#1.00OTGTCincinnati VA Medical Center Reminder Messageson 70-82-2909Kgwlfzex Messages From: TONEY MONTOYA DO To: [facility] Clinical Pool ([facility]); Sent: 06/01/2025 14:32:11 EDT ! Show up: [...] WBC 6.9 x103/mcL (3.5 - 10.5) 06/01/2025 12: RBC 4.74 x106/mcL (3.70 - 5.30) 06/01/2025 12:29 Hgb 14.0 gm/dL (11.3 - 15.9) 06/01/2025 12:29 Hct (H) 41.6 % (33.7 - 40.4) 06/01/2025 12: MCV 88 fL (81 - 100) 06/01/2025 12: MCH 30 pg (24 - 34) 06/01/2025 12: MCHC 34 gm/dL (26 - 37) 06/01/2025 12: RDW 14.0 % (11.5 - 15.0) 06/01/2025 12: Platelet 256 x103/mcL (138 - 427) 06/01/2025 12: MPV 9.5 fL (6.3 - 10.2) 06/01/2025 12:29 Auto Neut % 65 % (44 - 88) 06/01/2025 12:29 Auto Lymph % 28 % (14 - 48) 06/01/2025 12:29 Auto [place] % 5 % (1 - 12) 06/01/2025 12:29 Auto Eos % 1.4 % (0.9 - 4.0) 06/01/2025 12:29 Auto Baso % 0.9 % (0.2 - 2.0) 06/01/2025 12: Neut Abs# 4.5 x103/mcL (1.5 - 9.2) 06/01/2025 12:29 Lymph Abs# 1.9 x103/mcL (1.3 - 2.9) 06/01/2025 12:29 [place] Abs# 0.3 x103/mcL (0.0 - 0.8) 06/01/2025 12: Eos Abs# 0.1 x103/mcL (0.0 - 0.4) 06/01/2025 12: Baso Abs# 0.1 x103/mcL (0.0 - 0.2) pt [facility]ifMer[facility].Auto Diff 141-05-5415Ywgt [place] %5 %Normal 1-12Magruder HospitalComment on above:Performed By: #### [id number], 19245519, 62289184, 1852327110, 0602984, 3236738 ####[facility] (DEFAULT)[address] [place] [address] 19474Tgjs Abs#0.1 t34Szayia1.0-0.2[facility] Comment on above:Performed By: #### 0141910243, 41371950, 95349270, 6206480831, 2427949, 4474602 ####[facility] (DEFAULT)[address] [place] [address] 87481Wifzyndet/100 WBC (Bld)0.9 %Normal0.2-2.0[facility] HospitalComment on above:Performed By: #### 7663868252, 81389316, 33071565, 5605668220, 1223280, 9585286 ####[facility] (DEFAULT)[address] [place] [address] 49836 Eos Abs#0.1 h82Wnrfrc9.0-0.4Magruder HospitalComment on above:Performed By: #### 0878724627, 14086643, 62927281, 1425660024, 2189924, 0379078 ####[facility] (DEFAULT)[address] [place] [address] 81096Uznsabezken/100 WBC (Bld)1.4 %Normal0.9-4.0[facility]rihealth HospitalComment on above:Performed By: #### 9005393216, 47807652, 60481548, 1370851477, 1881593, 1352339 ####[facility] (DEFAULT)[address] [place] [address] 77441Rsgao Abs#1.9 m75Ealiff 1.3-2.9Magrtri[facility] HospitalComment on above:Performed By: #### 3984702253, 86554140, 23898572, 4121712471, 9406434, 7217418 ####[facility] (DEFAULT)[address] [place] [address] 46036Jholztznazu/100 WBC (Bld)28 % Yihprq53-78Ketisbxh HospitalComment on above:Performed By: #### 1539025009, 68596183, 27786328, 9765145838, 6978428, 7269955 ####[facility] (DEFAULT)[address] [place] [address] 28907Mmss Abs#0.3 g66Adhrtp3.0-0.8 [facility] HospitalComment on above:Performed By: #### [id number], 09450485, 59281935, 8278550451, 0778428, 0048093 ####[facility] (DEFAULT)[address] [place] [address] 86160Etfi Abs#4.5 e67Rnwaqx0.5-9.2[facility] Hospital Comment on above:Performed By: #### 8610931499, 85845848, 84543515, 1331106925, 2046747, 9362757 ####[facility] (DEFAULT)[address] [place] [address] 06419Arvvzwcxkyt/100 WBC (Bld)65 %Mujbra53-16Vckbyfyb HospitalComment on above:Performed By: #### 3213354113, 67304651, 56900728, 0869863731, 3861857, 0272145 ####[facility] (DEFAULT)[address] [place] [address] 81021 CBC w/ Auto Diffon 25-26-2619Mgeffpumkwf distribution width (RBC) [Ratio]14.0 % Qbgaoi51.5-15.0[facility] HospitalComment on above:Performed By: #### [id number], 32140548, 77262982, 7477692809, 3363195, 1780709 #### [facility] (DEFAULT) [address] [place] [address] 18568Fnbhqynahs (Bld) [Volume fraction]41.6 %High33.7-40.4 [facility] HospitalComment on above:Performed By: #### [id number], 25984613, 23246538, 3803027222, 3266603, 3967973 #### [facility] (DEFAULT) [address] [place] [address] 25129Qeodoslnhb (Bld) [Mass/Vol]14.0 g/mUKgylml34.3-15.9 [facility] HospitalComment on above:Performed By: #### 5153376049, 44707603, 71269050, 0425721911, 1694112, 1171171 #### [facility] (DEFAULT) [address] [place], [place] [address]Man Diff?AutoInvalid Interpretation [facility] Comment on above:Performed By: #### 6991756146, 00823091, 06730124, 3507873774, 3352525, 6970511 #### [facility] (DEFAULT) [address] [place], [place] [address]H (RBC) [Entitic mass]30 orIolbaq80-17Uindvskz Hospital Comment on above:Performed By: #### 8616405723, 62928524, 61778835, 4424955410, 2262915, 4505302 #### [facility] (DEFAULT) [address] [place] [address] 48212ACHD (RBC) [Mass/Vol]34 g/nWQbduaw71-86Spzxkrwh Hospital Comment on above:Performed By: #### 3313524921, 34178985, 40546689, 5341271056, 1386864, 1477013 #### [facility] (DEFAULT) [address] [place] [address] 81703HHB (RBC) [Entitic vol]88 jZQtpmtr29-255Axieolaa Hospital Comment on above:Performed By: #### 9290759134, 50261420, 45677634, 7483544027, 2163778, 8649746 #### [facility] (DEFAULT) [address] [place], [place] [address]Platelet256 s55Dsvtnq367-122Ynwlfwqu HospitalComment on above:Performed By: #### 2097339357, 95407235, 64010917, 2532075245, 5706905, 6943171 #### [facility] (DEFAULT) [address] [place] [address] 63017Pevgidqd mean volume (Bld) [Entitic vol]9.5 fLNormal 6.3-10.2[facility]rtri[facility] HospitalComment on above:Performed By: #### 4866326789, 61119053, 28984633, 5367775725, 9786372, 9337316 #### [facility] (DEFAULT) [address] [place] [address] 95496URS2.74 g15Shffha1.70-5.30[facility] HospitalComment on above:Performed By: #### 0443578723, 19295900, 12991112, 3135871834, 3797993, 5224650 #### [facility] (DEFAULT) [address] [place] [address] 02353YRH0.9 b36Ajejpk0.5-10.5[facility] HospitalComment on above: Performed By: #### 7846519086, 87139776, 47515558, 4585894014, 5826823, 2583257 #### [facility] (DEFAULT) [address] [place] [address] 27072CAZ Standardon 40-19-8402uWUC Non AA>60Invalid Interpretation CodeKettering Health Dayton HospitalComment on above:Performed By: #### 8703852228, 89437777, 99954463, 9804417831, 6467212, 5559580 ####[facility] (DEFAULT)[address] [place] [address] 23037nFCE AA>60Invalid Interpretation CodeKettering Health Dayton HospitalComment on above:Performed By: #### 5257556955, 45835080, 14203880, 3183133564, 7667080, 7900678 ####[facility] (DEFAULT)[address] [place] [address] 68108Qrzdjls [Mass/Vol]3.4 g/dLLow3.5-5.0[facility] HospitalComment on above:Performed By: #### 8708645467, 91212201, 96800837, 4667650125, 7920548, 7470545 ####[facility] (DEFAULT)[address] [place] [address] 49377Bnu Phos49 IU/BNibcis10-79 [facility] HospitalComment on above:Performed By: #### 0079141493, 09036775, 05316821, 1385820599, 1581090, 4016360 ####[facility] (DEFAULT)[address] [place] [address] 18253TPX [Catalytic activity/Vol]7.0 U/LLow14.0-54.0 [facility] HospitalComment on above:Performed By: #### 5671394616, 61051792, 74142322, 2123353073, 6177471, 8100439 ####[facility] (DEFAULT)[address] [place] [address] 88404TPV [Catalytic activity/Vol]17 U/ZJfbzki27-72 [facility] HospitalComment on above:Performed By: #### 5189363555, 84634750, 95719518, 9809243375, 1945706, 1512453 ####[facility] (DEFAULT)[address] [place] [address] 40499Wocl Total0.7 mg/dLNormal0.3-1.2[facility] Hospital Comment on above:Performed By: #### 8726341766, 26669403, 43356761, 1916636024, 4646058, 6084704 ####[facility] (DEFAULT)[address] [place] [address] 89692Wypigzo [Mass/Vol]8.8 mg/dLLow8.9-10.3[facility] hospital HospitalComment on above: Performed By: #### 8989706655, 44607848, 44396212, 4772155138, 7814616, 2595031 ####[facility] (DEFAULT)[address] [place] [address] 24734Dbdzvxsx [Moles/Vol]102 mmol/TIrnvdb894-021Qtahozap HospitalComment on above:Performed By: #### 3903820323, 09554135, 89533694, 1265372283, 2152752, 8956970 ####[facility] (DEFAULT)[address] [place] [address] 45942VO1 [Moles/Vol]22 mmol/AOpfdpu27-36Fddaxznp HospitalComment on above:Performed By: #### 5618274054, 24929259, 06869600, 2274526239, 6538862, 5348586 ####[facility] (DEFAULT)[address] [place] [address] 83114Jdgcvkvezh [Mass/Vol] 0.79 mg/dLNormal0.60-1.30[facility] HospitalComment on above:Performed By: #### 6503717160, 71314971, 14509224, 9852627453, 2480947, 0938054 ####[facility] (DEFAULT)[address] [place] [address] 62554Tkvhfmw [Mass/Vol]85.0 mg/qNPamckj09.0-118.0[facility] HospitalComment on above:Performed By: #### 7433687765, 64158418, 01308532, 2813408040, 8275450, 0236623 ####[facility] (DEFAULT)[address] [place] [address] 98266Bwmhaixmf [Moles/Vol] 4.1 mmol/LNormal3.6-5.1[facility] HospitalComment on above:Performed By: #### 0195241978, 41331959, 34805777, 6992419019, 2654542, 7399603 ####[facility] (DEFAULT)[address] [place] [address] 33930Baplxka [Mass/Vol]6.9 g/dLNormal6.5-8.1Magrt[facility] HospitalComment on above:Performed By: #### 8230527216, 80030832, 38254643, 3172551807, 6461250, 5257853 ####[facility] (DEFAULT)[address] [place] [address] 42866Typoni [Moles/Vol]133.0 mmol/BWak140.0-144.0[facility] HospitalComment on above:Performed By: #### 1008366884, 62470413, 15539364, 3240055208, 4741035, 9857466 ####[facility] (DEFAULT)[address] [place] [address] 18799Ewsz nitrogen [Mass/Vol]15 mg/dLNormal8-26[facility] HospitalComment on above:Performed By: #### 9608355345, 89035462, 58971974, 0690156664, 8786140, 3882530 ####[facility] (DEFAULT)[address] [place] [address] 45841Hluhthq/Globulin [Mass ratio]0.9 {ratio}Low1.4-2.6[facility] HospitalComment on above:Performed By: #### 9177328041, 47984832, 69315198, 9912783963, 0156025, 9553119 ####[facility] (DEFAULT)[address] [place] [address] 98167Iprih gap [Moles/Vol] 13.1 mmol/LNormal5.0-19.0[facility] HospitalComment on above:Performed By: #### 0637631298, 06106844, 53401402, 8384244789, 6541618, 6945558 ####[facility] (DEFAULT)[address] [place] [address] 99458Askpziim (S) [Mass/Vol] 3.5 g/dLNormal1.5-4.3[facility] HospitalComment on above:Performed By: #### 1807200339, 06911723, 04723108, 2244562778, 4989951, 4395103 ####[facility] (DEFAULT)[address] [place] [address] 89810Rybnidtuub144 mOsm/L Invalid Interpretation CodeKettering Health Dayton HospitalComment on above:Performed By: #### 2598019514, 78479518, 39546739, 4202964220, 1509057, 0281256 ####[facility] (DEFAULT)[address] [place] [address] 64744Mxdm nitrogen/Creatinine [Mass ratio]18.9 mg/mgHigh4.6-16.2[facility] HospitalComment on above:Performed By: #### 5529596977, 12890356, 65498743, 8895826868, 3269637, 9388147 ####[facility] (DEFAULT)[address] [place] [address] 93533 Lipid Panel Standardon 36-79-0152Wxstugyhsga [Mass/Vol]194.0 mg/dLNormal 66.0-200.0[facility] HospitalComment on above:Performed By: #### 3372058371, 98616075, 98595384, 4104878764, 6055878, 0499311 ####[facility] (DEFAULT)[address] [place] [address] 53422Pnzsbcgwjxn in HDL [Mass/Vol]64 mg/bSNibqrs80-31Xldtiruk HospitalComment on above:Performed By: #### 7552385237, 65266815, 08846730, 4542449669, 3690877, 0002580 ####[facility] (DEFAULT)[address] [place] [address] 04810Gqtavkcekmpm [Mass/Vol]65.0 mg/dLNormal0.0-150.0[facility] HospitalComment on above:Performed By: #### 8108374482, 58268368, 92215785, 3933901143, 8133753, 3766539 ####[facility] (DEFAULT)[address] [place] [address] 15310Eraiqvdevgm in LDL [Mass/Vol]117 mg/dLHigh1-100[facility] HospitalComment on above:Performed By: #### 8021432222, 18685576, 32667387, 8579868783, 1818269, 9331025 ####[facility] (DEFAULT)[address] [place] [address] 30613 Cholesterol.total/Cholesterol in HDL [Mass ratio]3.0 {ratio}Normal0.0-4.5 [facility] HospitalComment on above:Performed By: #### 2903003697, 91271802, 48666183, 3956853387, 8376421, 0002027 ####[facility] (DEFAULT)[address] [place] [address] 94838IREX.13 mg/dLNormal5-40[facility] HospitalComment on above:Performed By: #### 6262629206, 26357014, 93598093, 5431678383, 8360751, 2594420 ####[facility] (DEFAULT)[address] [place] [address] T4, Totalon 96-34-8580X6 [Mass/Vol]12.11 ug/dLNormal6.09-12.23[facility] Comment on above:Performed By: #### 8857356822, 03807685, 46466243, 3771675807, 6758756, 9469973 ####[facility] (DEFAULT)[address] [place], [place] [address]FHIsu 61-51-2408HSL Qn0.07 m[IU]/LLow0.45-5.33[facility] HospitalComment on above:Result Comment: General Population (males and non- females, aged 21-88) 0.45 - 5.33 Females, 1st Trimester 0.05 - 3.70 Females, 2nd Trimester 0.31 - 4.35 Females, 3rd Trimester 0.41 - 5.18Performed By: #### 6875525873, 19747724, 46494947, 7045214865, 8365692, 4892919 ####[facility] (DEFAULT)[address] [place], [place] [address]MMFR SCREENING BILATERAL W CADon 60-04-3516NZSQ SCREENING BILATERAL W CADMAMM SCREENING BILATERAL W CAD LAURO PINTO 1975 [id number] EXAM: MAMM SCREENING BILATERAL W CAD, 05/30/2025 [...] on 05/31/2025 12:22 PM 0A b ADDITIONAL INormalProMedica Pat[facility] PELVIS W/ TRANSVAGINALon 73-96-[place]275[place] [address] Ultrasound Report Signed Patient: LAURO PINTO MR#: [id number] : 1975 Acct:[id number] Age/Sex: 50 / F ADM Date: 05/31/25 Loc: US Attending Dr: Jorge Aguilar D.O. Ordering Physician: Jorge Aguilar D.O. Date of Service: 05/31/25 Procedure(s): US pelvis w/ transvaginal Accession Number(s): [id number] cc: Jorge Aguilar D.O.; TONEY MONTOYA [address] [address] Patient Name: LAURO PINTO MRN: [id number] date: 1975 Sex: F Assigned Patient Location: Current Patient Location: [place] Accession/Order Number: [id number] Exam Date: 05/31/2025 13:55 Report Date: 05/31/2025 [...] Jr., D.O. 05/31/2025 2:52 PM Dictation Location: [place] [address] Electronically authenticated by: [id number] Y Date: 05/31/2025 14:52 Dictated By: Vlad Chamberlain M.D. Signed By: 05/31/251454 DD/ 51 TD/TT: Machine Wood Sander:ELIadiology, Radiologist, - 05/31/2025 [place] [address] Ultrasound Report Signed Patient: LAURO PINTO MR#: [id number] : 1975 Acct:[id number] Age/Sex: 50 / F ADM Date: 05/31/25 Loc: US Attending Dr: Jorge Aguilar D.O. Ordering Physician: Jorge Aguilar D.O. Date of Service: 05/31/25 Procedure(s): US pelvis w/ transvaginal Accession Number(s): [id number] cc: Jorge Aguilar D.O.; TONEY MONTOYA [place] [id number] Patient Name: LAURO PINTO MRN: [id number] date: 1975 Sex: F Assigned Patient Location: US Current Patient Location: [place] Accession/Order Number: [id number] Exam Date: 05/31/2025 13:55 Report Date: 05/31/2025 [...] Jr., D.O. 05/31/2025 2:52 PM Dictation Location: [place] [address] Electronically authenticated by: [id number] Y Date: 05/31/2025 14:52 Dictated By: Vlad Chamberlain M.D. Signed By: 05/31/251454 DD/ 51 TD/TT: Machine Wood Sander: [facility] HospitalRadiology Study observation (narrative)[facility] HospitalUS PELVIS W/ TRANSVAGINALOrdered By: Radiologist Radiology on 01-84-9437OIWBSalem Memorial District Hospital Work Phone: Outside Recordson 87-61-7777Vkidjvv Records [id number]#1.00[facility] Outside Recordson 95-94-3582Rgznesn Records [id number]#1.00[facility] Pathology Sendout Teston 32-33-0717Ucfenpvai Send Out.See ReportUniversity Hospitals Conneaut Medical CenterComment on above:Order Comment: SIGMOID COLON POLYPFAMILY HX COLON CANCER, ANEMIAPerformed By: #### [id number] ####[facility] (DEFAULT)[address] [place], [place] [address]Gttiyekyb Send Out.See ReportUniversity Hospitals Conneaut Medical CenterComment on above:Order Comment: DESCENDING COLON POLYPFAMILY HX COLON CANCER, ANEMIAPerformed By: #### [id number] ####[facility] (DEFAULT)[address] [place] [address]Mldqalo Recordson 69-26-3111Xlvavbc Records [id number]#1.00OTOhioHealth [facility]ide [facility] Pathology study report documentOrdered By: Dunia Beaulieu on 11-13-2024 Pathology studyRegency Hospital Company Other Lol 11-10-2024L Specimen: [id number] Received: 11/10/24 Status: WALDO Madsen Num: [id number] Spec Type: Surgical Subm Dr: Jorge Aguilar Tissues: A Endometrial Polyp (ENDOMETRIAL POLYP) Procedures: JADA/Herson Yusuf/Va Maxwell Age/ Patient Sex Location Account Attending Physician Lauro Pinto 49/F LABELL [id number] Jorge Aguilar SPEC NUM: [id number] RECD: 11/10/24 STATUS: WALDO MADSEN NUM: [id number] MIGUELITO: 11/10/24-[address]: Jorge Aguilar ENTERED: 11/10/24 [facility] DR: Ibeth,Lab SPEC TYPE: Surgical DEPT: [...] submitted in a single cassette. (1, ns, [id number] A) Microscopic Description Microscopic examinations are performed supporting the above interpretation Specimen: [id number] Received: 11/10/24 Status: WADLO Cale Num: [id number] Spec Type: Surgical Subm Dr: Jorge Aguilar Tissues: A Endometrial Polyp (ENDOMETRIAL POLYP) Procedures: HE/2, Gross/Micro L4 Patient: Lauro Pinto [id number] (Continued) Specimen: [id number] Received: 11/10/24 (Continued) Signed (signature on file) Dunia Beaulieu MD 11/13/24 1608 Specimen: [id number] Received: 11/10/24 Status: WALDO Madsen Num: [id number] Spec Type: Surgical Subm Dr: Jorge Aguilar Tissues: A Endometrial Polyp (ENDOMETRIAL POLYP) Procedures: Herson HURT/Va Maxwell Patient: Lauro Pinto [id number] (Continued) Specimen: [id number] Received: 11/10/24 (Continued) CPT Codes 46450 Specimen: [id number] Received: 11/10/24 Status: ADRIANDayana Cale Num: [id number] Spec Type: Surgical Subm Dr: Jorge Aguilar Tissues: A Endometrial Polyp (ENDOMETRIAL POLYP) Procedures: Herson HURT/Va L4 Patient: Lauro Pinto [id number] (Continued) Signed (signature on file) Zbigniew-Antione Beaulieu MD 11/13/[address] [place] [address] Physician GroupECG 12-LEADon 41-47-5778[place] [id number] Electrocardiograph Report Signed Patient: LAURO PINTO MR#: [id number] : 1975 Acct:[id number] Age/Sex: 49 / F ADM Date: 11/03/24 Loc: PST Attending Dr: Jorge Aguilar D.O. Ordering Physician: Jorge Aguilar D.O. Date of Service: 11/03/24 Procedure(s): ECG 12 lead Accession Number(s): [id number] cc: [facility] Test Date: 2024-11-03 Pat Name: LAURO PINTO Department: Room: - Gender: Female Biochemistry Technician: : 1975 Requested By: JORGE AGUILAR Order Number: [id number] Reading MD: CHUCKY MANZANO Measurements Intervals [place] Rate: 63 P: 56 SC: 147 QRS: -5 QRSD: 92 T: 17 QT: 410 QTc: 421 Interpretive Statements SINUS RHYTHM Electronically Signed On 11-05-2024 8:08:21 EST by CHUCKY MANZANO Dictated By: Chucky Manzano D.O. Signed By: 11/05/24 0808 DD/ 1358 TD/TT: Machine Wood Sander:TBHRadiology, Radiologist, - 11/05/2024 The [place] [id number] Electrocardiograph Report Signed Patient: LAURO PINTO MR#: [id number] : 1975 Acct:[id number] Age/Sex: 49 / F ADM Date: 11/03/24 Loc: PST Attending Dr: Jorge Aguilar D.O. Ordering Physician: Jorge Aguilar D.O. Date of Service: 11/03/24 Procedure(s): ECG 12 lead Accession Number(s): [id number] cc: [facility] Test Date: 2024-11-03 Pat Name: LAURO PINTO Department: Room: - Gender: Female Biochemistry Technician: : 1975 Requested By: JORGE AGUILAR Order Number: [id number] Reading MD: CHUCKY MANZANO Measurements Intervals [place] Rate: 63 P: 56 SC: 147 QRS: -5 QRSD: 92 T: 17 QT: 410 QTc: 421 Interpretive Statements SINUS RHYTHM Electronically Signed On 11-05-2024 8:08:21 EST by CHUCKY MANZANO Dictated By: Chucky Manzano D.O. Signed By: 11/05/24 0808 DD/ 1358 TD/TT: Machine Wood Sander: [facility] FlowdockGREAT PLAINS [facility] [place] 12-LEADOrdered By: Radiologist Radiology on 15-83-2677CHHY [employer] Work Phone: ECG 12-LEADon 75-51-3815Nehoepdvd Study observation (narrative)[facility] Medical CenterG ( test) Ql (U)on 96-88-7942Agycrwkxjrncbu and review of laboratory resultsNormalSalem Memorial District HospitalPre Test, UrNegative NegativeCritical access hospitalLon 11-01-2024L Specimen: [id number] Received: 11/02/24 Status: WALDO Madsen Num: [id number] Spec Type: Surgical Subm Dr: Jorge Aguilar Tissues: A Endometrium - Biopsy (ENDOMETRIAL BX) Procedures: HE/2, Gross/Micro L4 Age/ Patient Sex Location Account Attending Physician Lauro Pinto 49/F LABELL [id number] Jorge Aguilar SPEC NUM: [id number] RECD: 11/02/24 STATUS: WALDO MADSEN NUM: [id number] MIGUELITO: 11/01/24-[address]: Jogre Aguilar ENTERED: 11/02/[address]: NEAL TYPE: Surgical DEPT: S ENTERED BY: [id number] RECV BY: [id number] ORDERED: HE/2, Gross/Micro L4 ORDERED: HE/2, Gross/Micro [...] submitted in a single cassette. (1, ns, [id number] A) Microscopic Description Sections examined support the above rendered diagnosis. Specimen: [id number] Received: 11/02/24 Status: WALDO Madsen Num: [id number] Spec Type: Surgical Subm Dr: Jorge Aguilar Tissues: A Endometrium - Biopsy (ENDOMETRIAL BX) Procedures: Herson HURT/Va Maxwell Patient: Lauro Pitno [id number] (Continued) Signed (signature on file) India Reyes MD 11/03/24 [facility] Specimen: [id number] Received: 11/02/24 Status: WALDO Madsen Num: [id number] Spec Type: Surgical Subm Dr: Jorge Aguilar Tissues: A Endometrium - Biopsy (ENDOMETRIAL BIOPSY) Procedures: HE/Paramjit, Gross/Va L4 Age/ Patient Sex Location Account Attending Physician Lauro Pinto 49/F [facility] [id number] Jorge Aguilar SPEC NUM: [id number] RECD: 11/02/24 STATUS: WALDO CALE NUM: [id number] MIGUELITO: 11/01/24-[address]: Jorge Aguilar ENTERED: 11/07/[address]: SPEC TYPE: Surgical DEPT: JORGE KULKARNI ENTERED BY: [id number] RECV BY: [id number] ORDERED: HE/2, Gross/Micro L4 ORDERED: HE/2, Gross/Micro [...] staff Clinical Information Dysfunctional uterine bleeding Specimen: [id number] Received: 11/02/24 Status: WALDO Madsen Num: [id number] Spec Type: Surgical Subm Dr: Jorge Aguilar Tissues: A Endometrium - Biopsy (ENDOMETRIAL BIOPSY) Procedures: , Gross/Micro L4 Patient: Lauro Pinto [id number] (Continued) Specimen: [id number] Received: 11/02/24 (Continued) Signed (signature on file) Dunia Beaulieu MD 11/07/248 Specimen: [id number] Received: 11/02/24 Status: WALDO Cale Num: [id number] Spec Type: Surgical Subm Dr: Jorge Aguilar Tissues: A Endometrium - Biopsy (ENDOMETRIAL BIOPSY) Procedures: HE/2, Gross/Micro L4 Patient: Lauro Pinto [id number] (Continued) Specimen: [id number] Received: 11/02/24 (Continued) Gross Description Part A is received in formalin labeled with the patients name, date of , and EMBx is a pale perez mucoid material, admixed with feathery duarte-pink tissue fragments, 0.8 x 0.3 x 0.1 cm in aggregate. The specimen is filtered and entirely submitted in a single cassette. (1, ns, [id number] A) Microscopic Description Sections examined support the above rendered diagnosis. CPT Codes 23456 Specimen: [id number] Received: 11/02/24 Status: WALDO Madsen Num: [id number] Spec Type: Surgical Subm Dr: Jorge Aguilar Tissues: A Endometrium - Biopsy (ENDOMETRIAL BIOPSY) Procedures: JADA/Herson Yusuf/Va L4 Patient: Lauro Pinto [id number] (Continued) Signed (signature on file) Dunia Beaulieu MD 11/07/[address] [place] [address] Physician GroupOutside Recordson 66-44-0065Euvpoqm [id number]#1.00OTOhioHealth Riverside Methodist HospitalRad - Other Radiology Reporton 44-16-5871Neh - Other Radiology Report [id number]#1.00OTOhioHealth Riverside Methodist HospitalXR CHEST 2 VWSon 54-35-7446YK CHEST 2 VWSXR CHEST 2 VWS XR CHEST 2 VWS INDICATION: Chest cold. FINDINGS: The cardiac silhouette is normal in size. The trachea is midline. No focal pulmonary consolidation. No pleural effusion. No pneumothorax. IMPRESSION: Normal chest x-ray. Finalized by Modesto Montalvo MD on 08/14/2024 4:51 PMNormalProOur Lady Of Mercy Hospital - Andersonca [facility] Va Medical CenterCoding Summaryon 92-48-5342Pdqquc SummaryMLBase 64 FsxrwchbWMv8mVg+PGhlYWQ+BW2LRXCaF61heZZhrL1yM9ABQIzGRmeoPVRNMBfEFcUsoqVbZC5tiGOv ZXJu [file] LWN (more content not included)...[facility] AND AUTO DIFFon 09-14-3086BSUUTJOS BASOPHIL0.1 X10E9/LNormal0.0-0.2PHolzer Hospital Comment on above:Performed By: #### CBCA #### [facility] ([id number]) [address] [place], [place] [address]XHXAAXOF NEUTROPHIL5.2 X10E9/LNormal1.5-6.6Ohio[facility]field HospitalComment on above:Performed By: #### CBCA #### [facility] ([id number]) [address], [address] [place], [place] [address]Ktaubtprc/100 WBC (Bld)0.9 %[facility] Comment on above:Performed By: #### CBCA #### [facility] ([id number]) [address], [address] [place], [place] [address]Qziijwqqcpj (Bld) [#/Vol]0.1 10*3/uLNormal0.0-0.4OhioHealth Mansfield HospitalComment on above:Performed By: #### CBCA #### [facility] ([id number]) [address], [address] [place], [place] [address]Uyqofhvktin/100 WBC (Bld)1.1 %NormalProParkview Regional Hospital Comment on above:Performed By: #### CBCA #### [facility] ([id number]) [address], [address] [place], [place] [address]Hyjmwzoftcq distribution width (RBC) [Ratio]16.9 %High11.5-15.0 [facility] HospitalComment on above:Performed By: #### CBCA #### [facility] ([id number]) [address], [address] [place], [place] [address]Pqggtqolwf (Bld) [Volume fraction]28.5 %Sfj59-10JbnAhvfoyOhioHealth Mansfield HospitalComment on above:Performed By: #### CBCA #### [facility] ([id number]) [address] [place], [place] [address]Knlanyibxe (Bld) [Mass/Vol]8.6 g/dLLow11.7-15.5PHolzer HospitalComment on above:Performed By: #### CBCA #### [facility] ([id number]) [address], [address] [place], [place] [address]Gzmaarurcdg (Bld) [#/Vol]2.0 10*3/uLNormal1.0-3.5PHolzer HospitalComment on above:Performed By: #### CBCA #### [facility] ([id number]) [address], [address] [place], [place] [address]Nvxqlbbdbsq/100 WBC (Bld)25.7 %[facility] Comment on above:Performed By: #### CBCA #### [facility] ([id number]) [address], [address] [place], [place] [address]DDQ (RBC) [Entitic mass]22.1 smLvg34-05RlsGgaajuOhioHealth Mansfield HospitalComment on above:Performed By: #### CBCA #### [facility] ([id number]) [address], [address] [place], [place] [address]OEGR (RBC) [Mass/Vol]30.3 g/bCGtr36-50VeqAolzgrOhioHealth Mansfield Hospital Comment on above:Performed By: #### CBCA #### [facility] ([id number]) [address], [address] [place], [place] [address]ROB (RBC) [Entitic vol]73 fGEiw46-682UlpSwcvxoOhioHealth Mansfield Hospital Comment on above:Performed By: #### CBCA #### [facility] ([id number]) [address], [address] [place], [place] [address]Hsirpzjje (Bld) [#/Vol]0.4 10*3/uLNormal0-0.9Ohio[facility] Mansfield HospitalComment on above:Performed By: #### CBCA #### [facility] ([id number]) [address], [address] [place], [place] [address]Zrsrgznrv/100 WBC (Bld)4.6 %[facility] Comment on above:Performed By: #### CBCA #### [facility] ([id number]) [address], [address] [place], [place] [address]Tqxnpqfdcsx/100 WBC (Bld)67.7 %[facility] Comment on above:Performed By: #### CBCA #### [facility] ([id number]) [address], [address] [place], [place] [address]Aylwtyal mean volume (Bld) [Entitic vol]8.8 fLNormal7-12 [facility] HospitalComment on above:Performed By: #### CBCA #### [facility] ([id number]) [address], [address] [place], [place] [address]Mrrsnwwqd (Bld) [#/Vol]257 10*3/tYLzulbf653-856SlgIzgtut Fremont HospitalComment on above:Performed By: #### CBCA #### [facility] ([id number]) [address], [address] [place], [place] [address]QTR COUNT3.91 X10E12/LNormal3.80-5.20[facility] Comment on above:Performed By: #### CBCA #### [facility] ([id number]) [address], [address] [place], [place] [address]AVB (Bld) [#/Vol]7.7 10*3/uLNormal4.0-11.0Ohio[facility] Mansfield HospitalComment on above:Performed By: #### CBCA #### [facility] ([id number]) [address], [address] [place], [place] [address]Aih - AP Resultson 44-37-3085Qjj - AP Results [id number]#1.00[facility] Consent Formson 52-91-4480Lrjznss Forms [id number]#1.00[facility] Provider Orderson 08-04-7998Bmosevvg Orders [id number]#1.00[facility] Anesthesia Noteon 70-68-4729Anhgbmplpp NotePatient: LAURO PINTO Age: 49 years Sex: FEMALE : 1975 Associated Diagnoses: None Author: Chilo Abernathy MD Postoperative Information Post Operative Note Health Status Allergies: Allergic Reactions (All) No known allergies Problem list (past medical history): All Problems Anxiety / SNOMED CT 41064356 / Confirmed Arthritis / SNOMED CT 8531615 / Confirmed Asthma / SNOMED CT 921362019 / Confirmed Constipated / SNOMED CT 08815465 / Confirmed Depressed / SNOMED CT 71715681 / Confirmed Thyroid disease / SNOMED CT 51105253 / Confirmed GERD (gastroesophageal reflux disease) / SNOMED CT 950091564 / Confirmed HTN (hypertension) / SNOMED CT 0134944480 / Confirmed Hypothyroid / SNOMED CT 36539754 / Confirmed Insomnia / SNOMED CT 205136126 / Confirmed IBS (irritable bowel syndrome) / SNOMED CT 98154321 / Confirmed Microcytic anemia / SNOMED CT 642195128 / Confirmed Migraine / SNOMED CT 98775234 / Confirmed Rheumatoid arthritis / SNOMED CT 461506176 / Confirmed Physical Examination VS/Measurements Vital Signs (last 24 hrs) Last Charted Temp Temporal L 36.1 DegC (JUL 25 09:35) Heart Rate Monitored 77 bpm (JUL 25:06) Resp Rate 18 br/min (JUL 25:06) SBP H 132 mmHg (JUL 25:06) DBP H 83 mmHg (JUL 25:) Weight 129.7 kg (JUL 25 06:36) Assessment Anesthetic outcome No anesthetic complications noted. Plan Transfer/ Discharge: To home, Patient can be discharged from PACU when criteria met. Condition good. [Electronically Signed on: 07/25/2024 13:53 EST] Chilo Abernathy MD [Verified on: 07/25/2024 13:53 EST] Chilo Abernathy MDSelect Medical [facility] NotePatient: LAURO PINTO Age: 49 years Sex: FEMALE : [...] history): All Problems Anxiety / SNOMED CT 61022427 / Confirmed Arthritis / SNOMED CT 4064540 / Confirmed Asthma / SNOMED CT 652413655 / Confirmed Constipated / SNOMED CT 13419681 / Confirmed Depressed / SNOMED CT 95194192 / Confirmed Thyroid disease / SNOMED CT 15301571 / Confirmed GERD (gastroesophageal reflux disease) / SNOMED CT 806122250 / Confirmed HTN (hypertension) / SNOMED CT 3676713619 / Confirmed Hypothyroid / SNOMED CT 35897550 / Confirmed Insomnia / SNOMED CT 696253020 / Confirmed IBS (irritable bowel syndrome) / SNOMED CT 12615121 / Confirmed Microcytic anemia / SNOMED CT 618122961 / Confirmed Migraine / SNOMED CT 25406064 / Confirmed Rheumatoid arthritis / SNOMED CT 916365203 / Confirmed Histories Family History: Thyroid Sister Anxiety Mother Diabetes mellitus Mother Hypertension Father Mother Arthritis Mother CHF - Congestive heart failure Grandparent Migraine Sister Cancer Grandparent Crohn disease Grandparent Parkinsons disease Grandparent Procedure history: Thyroid (531145056). Knee (952222780). Foot (77738030). Tonsil (299498701). Appendectomy (435707522). Back (766020802). Social History Electronic Cigarette/Vaping Assessment Electronic Cigarette [...] Torie Hernadez 08/23/2023 Category: Dr Orlando Davila Mgmt 08/23/2023 Category: Dr Kat Nagel Tobacco 08/23/2023 [...] 06:36) Heart Rate Monitored 87 bpm (JUL 25 06:36) Resp Rate 18 br/min (JUL 25 06:36) SBP H 138 mmHg (JUL 25 06:36) DBP H 88 mmHg (JUL 25:36) Weight 129.7 kg (JUL 25 06:36) Review / Management Laboratory Results Plan [place] [employer]esthesiologists#(ASA) physical status classification: Class III. Anesthetic Preoperative Plan Anesthesia: Monitored anesthesia care, non-triggering, vaporizors removed and machine flushed per protocol . Anesthetic plan, risks, benefits, and alternatives discussed with the patient and/or family. Patient verbalized understanding. [Electronically Signed on: 07/25/2024 09:17 EST] Chilo Abernathy MD [Verified on: 07/25/2024 09:17 EST] Chilo Abernathy MDNoSuburban Community Hospital & Brentwood HospitalInpatient Patient Summaryon 07-25-2024 [facility] [address] [place], [place] [id number] Patient Discharge Instructions Name: LAURO PINTO : 1975 Patient Address: [address] [place] [address] Primary Care Provider: Name: TONEY MONTOYA DO After you are discharged if you find you have any questions, please, call [phone] ext [phone] to speak to a nurse. Discharge Diagnosis: 1:Microcytic anemia Prescription Information: If you have been given a prescription for narcotics, seek immediate medical attention if you have any difficulty breathing or any sudden status changes such as confusion andsleepiness. If you or anyone you know is experiencing suicidal thoughts, mental health, alcohol and/or drug addiction problems; contact the [facility] 29/03 Crisis Hotline -Text 4HUHJ zw 945432. If you received any narcotics, sedation, or [...] or sign any legal documents [facility] would like to thank you for allowing us to assist you with your healthcare needs.The following includes patient education materials and information regarding your injury/illness. LAURO PINTO has been given the following list of follow-up instructions, prescriptions, and patient education materials: Follow-up Instructions With: Address: When: Korey Ford [address] [place] [address], [place] [address] Business (1) , only if needed With: [...] procedure? After the procedure, (more content not included)...[facility] 07-25-2024L Specimen: [id number] Received: 07/25/24 Status: WALDO Madsen Num: [id number] Spec Type: Surgical Subm Dr: Korey Ford MD Tissues: A Colon Biopsy (DESCENDING COLON POLYP) B Colon Biopsy (SIGMOID COLON POLYP) Procedures: HE/4, Gross/Micro L4/2 Age/ Patient Sex Location Account Attending Physician Lauro Pinto 49/F [facility] [id number] Korey Ford MD SPEC NUM: [id number] RECD: 07/25/24 STATUS: WALDO MADSEN NUM: [id number] MIGUELITO: 07/25/[address] [facility] [address]: Korey Ford MD ENTERED: 07/25/[address] [facility] [address]: Leighton Jane SPEC TYPE: Surgical DEPT: MAG KULKARNI ENTERED BY: [id number] RECV BY: [id number] ORDERED: HE/4, Gross/Micro L4/2 ORDERED: HE/4, Gross/Micro [...] submitted in a single cassette. (1, ns, [id number] A) Part B is received in formalin labeled with the patients name, date of , and sigmoid colon polyp is a duarte-perez, focally erythematous, friable, 0.4 cm polypoid fragment. The specimen is inked black at the apparent point of attachment, bisected, and entirely submitted in a single cassette. (1, ns, [id number] B) BLANK Specimen: [id number] Received: 07/25/24 Status: WALDO Jeanyashira Num: [id number] Spec Type: Surgical Subm Dr: Korey Ford MD Tissues: A Colon Biopsy (DESCENDING COLON POLYP) B Colon Biopsy (SIGMOID COLON POLYP) Procedures: HE/4, Gross/Micro L4/2 Patient: Lauro Pinto [id number] (Continued) Specimen: [id number] Received: 07/25/24 (Continued) Signed (signature on file) Brody Jordan MD 07/26/24 6309 Specimen: [id number] Received: 07/25/24 Status: WALDO Madsen Num: [id number] Spec Type: Surgical Subm Dr: Korey Ford MD Tissues: A Colon Biopsy (DESCENDING COLON POLYP) B Colon Biopsy (SIGMOID COLON POLYP) Procedures: HE/4, Gross/Micro L4/2 Patient: Lauro Pinto [id number] (Continued) Specimen: [id number] Received: 07/25/24 (Continued) CPT Codes 07257n9 Specimen: [id number] Received: 07/25/24 Status: WALDO Madsen Num: [id number] Spec Type: Surgical Subm Dr: Korey Ford MD Tissues: A Colon Biopsy (DESCENDING COLON POLYP) B Colon Biopsy (SIGMOID COLON POLYP) Procedures: HE/4, Gross/Micro L4/2 Patient: Lauro Pinto [id number] (Continued) Signed (signature on file) Brody Jordan MD 07/26/[address] [place] [address] Physician GroupMAGR Intraoperative Recordon 55-61-5813DTLK Intraoperative RecordMAGR Intra-Op Record Summary Primary Physician: Korey Ford MD Finalized Date/Time: 07/25/24 12:59:58 Pt. Name: LAURO PINTO D.O.B./Sex: 1975 FEMALE Med Rec #: [id number] Physician: Korey Ford MD Financial #: [id number] Pt. Type: D Room/Bed: / Admit/Disch: 07/25/24 [...] Entry 3 Case Attendee Korey Ford MD, Isabel Tabares MD, RN Role Performed Surgeon - Primary Anesthesiologist of Head Miller Record Time In 07/25/24 09:01:00 07/25/24 09:01:00 07/25/24 09:01:00 Time Out 07/25/24 09:31:00 07/25/24 09:31:00 07/25/24 09:31:00 Procedure Esophagogastroduodenosco Esophagogastroduodenosco Esophagogastroduodenosco py and Colonosco py and Colonosco py and Colonosco Last Modified By: Isabel Martinez RN, Erica RN Baumer, Erica RN 07/25/24 09:37:34 07/25/24 09:37:34 07/25/24 09:37:34 Entry 4 Entry 5 Case Attendee Awilda Castillo Lauren M CST STAFF NURSE CSFA Role Performed Scrub Personnel Surgical Assistant Time In 07/25/24 09:01:00 07/25/24 09:01:00 Time [...] Abernathy MD, Isabel Martinez RN, Lianna Box STAFF NURSE CSFA, Awilda Castillo CSFA STAFF NURSE Last Modified By: Isabel Martinez RN 07/25/24 [...] Pillow Outcome Met (O.80 (more content not included)...Normal [facility] Postoperative Recordon 60-27-7732FOQJ Postoperative Record [facility] Phase II Record Summary Primary Physician: Korey Ford MD Finalized Date/Time: 07/25/24 10:30:12 Pt. Name: LAURO PINTO./Sex: 1975 FEMALE Med Rec #: [id number] Physician: Korey Ford MD Financial #: [id number] Pt. Type: D Room/Bed: / Admit/Disch: 07/25/24 06:22:59 - Institution: Phase II Case Times MAGR Pre-Care Text: Patient is free from s/s of injury. Patient remains free from compromised physical state related tosurgery or anesthesia. Patient comfort maintained. Patient/family verbalize [...] Signatures Signed By: Jumana Herbert RN 07/25/24 10:30[facility] Preoperative Recordon 84-23-4170IAGS Preoperative RecordCOP[facility] Pre-Op Record Summary Primary Physician: Korey Ford MD Finalized Date/Time: 07/25/24 09:05:27 Pt. Name: LAURO PINTO /Sex: 1975 FEMALE Med Rec #: [id number] Physician: Korey Ford MD Financial #: [id number] Pt. Type: D Room/Bed: / Admit/Disch: 07/25/24 [...] ready for surgery. The patient remains free froms/s of injury. Patient/family express understanding of plan of care and participate in decisions affectinghis or her perioperrative plan of care. Allergies documented appropriately. Patient identifiers and consent correct. General Comments: Pt arrives to PSW. Pt denies SOB,cp,cough and flu like symptoms. Pt also denies pacemaker,defibrillator and sleep apnea. Pt is not a diabetic Finalized By: Isabel Martinez RN Document Signatures Signed By: Isabel Martinez RN 07/25/24 09:05[facility] CenterPatient Handouton 61-38-7788Dqvxfjz HandoutRadiology Upper and lower endoscopy, Care After The [...] provider. Avoid heavy or fried foods that arehard to digest. Activity ? Rest as told by your health care provider. ? Avoid sitting for a long time without moving. Get up to take short walks every 1?2 hours. This isimportant to improve blood flow and breathing. Ask [...] your health care provider. Use the heat sourcethat your health care provider recommends, such as [...] that are easy to digest. ? Take wtkt-dzs-vvvqfot and prescription medicines only as told by [...] provider. Document Revised: 10/05/2023 Document Reviewed: 04/15/2022 [employer] Patient Education ? 2023 [employer].[facility] Conne[facility] Medical CenterPregnancy Test Urine 1on 07-25-2024U PregNegativeUniversity Hospitals Conneaut Medical CenterComment on above: Performed By: #### [id number] ####[facility] (DEFAULT)[address] [place] [address] Preg Internal ControlOhioHealth Marion General Hospital Comment on above:Performed By: #### [id number] ####[facility] (DEFAULT)[address] [place] [address]Bscxzktg Note - Nurseon 10-30-8078Dtqhfdzd Note - NurseWriter spoke with pt and pt stated that she has a family hx of malignant hyperthermia. Per pt her moms sister had an issue. Pt put specification writer on a 3 way call with pts mom. Per pts mom her sister had to be packed in ice and pts younger sister also had an issue. After speaking with pt and pts mom specification writer let Dr Abernathy know the above details. [Electronically Signed on: 07/24/2024 11:38 EST] Jumana Herbert RN [Verified on: 07/24/2024 11:38 EST] Jumana Herbert RNSt. Francis Hospital AND AUTO DIFFon 00-27-7186AAADENCJ BASOPHIL0.0 X10E9/LNormal0.0-0.2PHolzer HospitalComment on above: Performed By: #### 25821-8, THYR, CMP, CBCA #### [facility] ([id number]) [address], [address] [place] [address]KFHYEWGA NEUTROPHIL5.6 X10E9/LNormal1.5-6.6Ohio[facility] HospitalComment on above:Performed By: #### 22136-3, THYR, CMP, CBCA #### [facility] ([id number]) [address], [address] [place], [place] [address]Qkaewtxqj/100 WBC (Bld)0.5 %[facility] Comment on above:Performed By: #### 49570-4, THYR, CMP, CBCA #### [facility] ([id number]) [address], [address] [place], [place] [address]Jiyzcatjhbb (Bld) [#/Vol]0.1 10*3/uLNormal0.0-0.4OhioHealth Mansfield HospitalComment on above:Performed By: #### 77413-8, THYR, CMP, CBCA #### [facility] ([id number]) [address], [address] [place], [place] [address]Vyolbfakale/100 WBC (Bld)0.9 %[facility] Comment on above:Performed By: #### 24820-8, THYR, CMP, CBCA #### [facility] ([id number]) [address], [address] [place], [place] [address]Evbesstiwwz distribution width (RBC) [Ratio]16.8 %High11.5-15.0 [facility] HospitalComment on above:Performed By: #### 76065-8, THYR, CMP, CBCA #### [facility] ([id number]) [address], [address] [place] [address]Vbyqezeqpm (Bld) [Volume fraction]28.9 %Plj38-11AuzZobsuyParkview Regional HospitalComment on above:Performed By: #### 45276-5, THYR, CMP, CBCA #### [facility] ([id number]) [address], [address] [place] [address]Yjjdwrwyap (Bld) [Mass/Vol]8.8 g/dLLow11.7-15.5PHolzer HospitalComment on above:Performed By: #### 83935-4, THYR, CMP, CBCA #### [facility] ([id number]) [address], [address] [place], [place] [address]Yahzrbpgcix (Bld) [#/Vol]1.7 10*3/uLNormal1.0-3.5PHolzer HospitalComment on above:Performed By: #### 40066-7, THYR, CMP, CBCA #### [facility] ([id number]) [address], [address] [place] [address]Lntywriwwxc/100 WBC (Bld)22.0 %NormalOhioHealth Mansfield Hospital Comment on above:Performed By: #### 95651-4, THYR, CMP, CBCA #### [facility] ([id number]) [address], [address] [place] [address]QVV (RBC) [Entitic mass]22.2 wsEyh66-83CmjUqckypOhioHealth Mansfield HospitalComment on above:Performed By: #### 62806-7, THYR, CMP, CBCA #### [facility] ([id number]) [address], [address] [place], [place] [address]LERW (RBC) [Mass/Vol]30.4 g/hNFdi53-80VwpGwmjegOhioHealth Mansfield Hospital Comment on above:Performed By: #### 79846-3, THYR, CMP, CBCA #### [facility] ([id number]) [address], [address] [place], [place] [address]VFA (RBC) [Entitic vol]73 qVZoi81-984GavYwmuhmOhioHealth Mansfield Hospital Comment on above:Performed By: #### 11858-2, THYR, CMP, CBCA #### [facility] ([id number]) [address], [address] [place], [place] [address]Gyficraky (Bld) [#/Vol]0.4 10*3/uLNormal0-0.9OhioHealth Mansfield HospitalComment on above:Performed By: #### 12688-0, THYR, CMP, CBCA #### [facility] ([id number]) [address], [address] [place], [place] [address]Tlyaldgbu/100 WBC (Bld)4.9 %[facility] Comment on above:Performed By: #### 01522-1, THYR, CMP, CBCA #### [facility] ([id number]) [address], [address] [place], [place] [address]Sqghqymttts/100 WBC (Bld)71.7 %[facility] Comment on above:Performed By: #### 65248-4, THYR, CMP, CBCA #### [facility] ([id number]) [address], [address] [place], [place] [address]Rfurhrll mean volume (Bld) [Entitic vol]8.9 fLNormal7-12 [facility] HospitalComment on above:Performed By: #### 90601-1, THYR, CMP, CBCA #### [facility] ([id number]) [address], [address] [place], [place] [address]Wlnbpdfud (Bld) [#/Vol]316 10*3/eYEjdrav703-070VteNqgmtd [facility]remont HospitalComment on above:Performed By: #### 89175-2, THYR, CMP, CBCA #### [facility] ([id number]) [address], [address] [place], [place] [address]BZI COUNT3.96 X10E12/LNormal3.80-5.20[facility] on above:Performed By: #### 48678-2, THYR, CMP, CBCA #### [facility] ([id number]) [address], [address] [place], [place] [address]ITK (Bld) [#/Vol]7.8 10*3/uLNormal4.0-11.0OhioHealth Mansfield HospitalComment on above:Performed By: #### 68943-4, THYR, CMP, CBCA #### [facility] ([id number]) [address], [address] [place], [place] [address]YTOIEDPMOSGQS METABOLIC PANELon 89-21-7952Czmmwck [Mass/Vol]3.7 g/dLNormal3.2-5.3PHolzer HospitalComment on above:Performed By: #### 73665-5, THYR, CMP, CBCA #### [facility] ([id number]) [address], [address] [place], [place] [address]PSN [Catalytic activity/Vol]50 U/GEcobhj87-642KmfNthvqaOhioHealth Mansfield HospitalComment on above:Performed By: #### 28116-5, THYR, CMP, CBCA #### [facility] ([id number]) [address], [address] [place] [address]YKH [Catalytic activity/Vol]4 U/LNormal0-31PHolzer HospitalComment on above:Performed By: #### 26139-0, THYR, CMP, CBCA #### [facility] ([id number]) [address], [address] [place] [address]Ohztc gap [Moles/Vol]9 mmol/LNormal5-15ProParkview Regional HospitalComment on above:Performed By: #### 98066-4, THYR, CMP, CBCA #### [facility] ([id number]) [address], [address] [place] [address]AKE [Catalytic activity/Vol]14 U/LNormal0-41ProParkview Regional HospitalComment on above:Performed By: #### 44484-3, THYR, CMP, CBCA #### [facility] ([id number]) [address], [address] [place] [address]Qrssfmkfm [Mass/Vol]0.5 mg/dLNormal0.3-1.2PHolzer HospitalComment on above:Performed By: #### 60965-5, THYR, CMP, CBCA #### [facility] ([id number]) [address], [address] [place] [address]Vtiohny [Mass/Vol]9.1 mg/dLNormal8.5-10.5PHolzer HospitalComment on above:Performed By: #### 30553-5, THYR, CMP, CBCA #### [facility] ([id number]) [address], [address] [place] [address]Ikdvrkdi [Moles/Vol]102 mmol/DTausws94-719FtxEaqqmaParkview Regional HospitalComment on above:Performed By: #### 96167-2, THYR, CMP, CBCA #### [facility] ([id number]) [address], [address] [place], [place] [address]NI4 [Moles/Vol]26 mmol/CXpajps25-41WprPbscylHolzer Hospital Comment on above:Performed By: #### 90746-9, THYR CMP, CBCA #### [facility] ([id number]) [address], [facility] [address] [place], [place] [address]Xqayeblaxq [Mass/Vol]0.81 mg/dLNormal0.40-1.00OhioHealth Mansfield HospitalComment on above:Result Comment: METHOD TRACEABLE TO IDMS STANDARD Performed By: #### 17005-2, THYR, CMP, CBCA #### [facility] ([id number]) [address], [facility] [address] [place], [place] [address]PEJ/1.73 sq M.predicted among non-blacks MDRD (S/P/Bld) [Vol rate/Area]89 mL/min/{1.73_m2}Normal>59ProParkview Regional HospitalComment on above:Result Comment: Reported eGFR is based on the CKD-EPI 2020 equation that does not use a race coefficient.Performed By: #### 84109-5, THYR, CMP, CBCA #### [facility] ([id number]) [address] [address] [place] [address]Vpfzzod [Mass/Vol]84 mg/hZZwybst77-44UvpLiffjfOhioHealth Mansfield Hospital Comment on above:Performed By: #### 92700-2, THYR, CMP, CBCA #### [facility] ([id number]) [address] [address] [place], [place] [address]Qanpqkzwt [Moles/Vol]4.3 mmol/LNormal3.5-5.0OhioHealth Mansfield HospitalComment on above:Performed By: #### 01630-4, THYR, CMP, CBCA #### [facility] ([id number]) [address] [address] [place], [place] [address]Jnwpbvk [Mass/Vol]6.8 g/dLNormal6.0-8.0OhioHealth Mansfield HospitalComment on above:Performed By: #### 07263-9, THYR, CMP, CBCA #### [facility] ([id number]) [address], [address] [place], [place] [address]Jlnhpf [Moles/Vol]137 mmol/UMtvrzh284-619JhrRnecdk [facility]remont HospitalComment on above:Performed By: #### 18213-5, THYR, CMP, CBCA #### [facility] ([id number]) [address], [address] [place], [place] [address]Gnah nitrogen [Mass/Vol]11 mg/dLNormal5-23ProParkview Regional HospitalComment on above:Performed By: #### 84645-9, THYR, CMP, CBCA #### [facility] ([id number]) [address], [address] [place], [place] [address]Gzcgk 1996 panelon 68-45-6714Lxlxpmlpcyj [Mass/Vol]162 mg/dL Qnrevl444-150KprXqmumoParkview Regional HospitalComment on above:Performed By: #### 44965-6, THYR, CMP, CBCA #### [facility] ([id number]) [address], [address] [place] [address]Glcevlptayh in HDL [Mass/Vol]75 mg/dLNormal>39ProParkview Regional HospitalComment on above:Result Comment: HDL <40 mg/dL - High Risk HDL > or = 40mg/dL- Desirable HDL >60 mg/dL - Negative Risk Performed By: #### 04563-9, THYR, CMP, CBCA #### [facility] ([id number]) [address], [address] [place], [place] [address]Wtgxbtnzwdz in LDL [Mass/Vol]71 mg/dLNormal<130ProParkview Regional HospitalComment on above:Result Comment: LDL <100 mg/dL - Desirable LDL >160 mg/dL - High Risk Performed By: #### 84004-9, THYR, CMP, CBCA #### [facility] ([id number]) [address], [address] [place], [place] [address]Fwfugcvlymt in VLDL [Mass/Vol]16 mg/dLNormal0-30ProParkview Regional HospitalComment on above:Performed By: #### 22230-7, THYR, CMP, CBCA #### [facility] ([id number]) [address], [address] [place] [address]OQCXKDGWQGL:HDL2.7Xbntha6.0-5.0ProParkview Regional HospitalComment on above:Performed By: #### 30933-8, THYR, CMP, CBCA #### [facility] ([id number]) [address], [address] [place] [address]Pbdoivqnzckx [Mass/Vol]81 mg/oDNhkzzl06-835KrxMmtgoc [facility]remont HospitalComment on above:Performed By: #### 71871-6, THYR, CMP, CBCA #### [facility] ([id number]) [address], [address] [place] [address]HCGCSCA PROFILEon 83-58-8894Vrbc T4 [Mass/Vol]1.62 ng/dLHigh 0.61-1.60ProParkview Regional HospitalComment on above:Performed By: #### 11557-1, THYR, CMP, CBCA #### [facility] ([id number]) [address], [address] [place], [place] [address]DPY2.02 uIU/mLLow0.49-4.67ProParkview Regional HospitalComment on above:Performed By: #### 73135-5, THYR, CMP, CBCA #### [facility] ([id number]) [address] [facility] [place], [place] [address]Mhohrkwwwhy Visit (Otolaryngology)on 92-28-6743Vsvfeoeflki Visit (Otolaryngology)No report was sentNormalUH TouchworksEstablished Visit (Otolaryngology)on 13-36-9478Pdfjacsliaz Visit (Otolaryngology) Diagnoses/Problems Thyroid cancer (193) (C73) Provider Impressions 46 year old female 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 She is now s/p completion thyroidectomy -advised her to establish care with local job printer to discuss BOB. They may just decide to follow lab work -follow up with me in 3 months, earlier with any issues Chief Complaint f/u thyroid cancer History of Present IllnessPatient presents today for follow up after completion thyroidectomy. Pathology after initial surgery showed multifocal carcinoma. No cancer identified on completion. She hasbeen doing well No issues with voice or [...] DAILY Vitals Vital Signs Recorded: 19Dec2021 04:25PM Ivvmyraublu89.8 F Height6 ft 1 in Svdrlk674 lb 9.6 oz BMI Mreindblhn20.33 kg/m2 BSA Calculated2.71 Tobacco Useb) No Fall Screeninga) No falls within the last year Physical Exam Well appearing individual in no acute distress. No stertor and no Stridor. Good voice. No LAD. Skinis soft and supple. Oral cavity and oropharynx are without lesions. No thyromegaly. Anterior rhinoscopy reveals normal nasal mucosa bilaterally. EAC normal AU with RITIKA. Cranial Nerves grossly intact.Neck incision healing well Results/Data Surgical Wllfxjult21Rjb5294 09:52AMEdy Dominguez [Dec 18, 2021 4:12PM Edy Dominguez] f/u 12/19 Test NameResultFlagReference Case Surgical Pathology(Report) Name LAURO PINTO Pathologist: LILLI AMAYA ASA, MD, PhD Date of Procedure: 12/04/2021 Date Received: 12/04/2021 Date Reported 12/10/2021 Submitting Physician: EDY DOMINGUEZ MD Location: [facility] External # FINAL DIAGNOSIS A. RIGHT HEMITHYROID STITCH@ ISTHMUS: MILD FOLLICULAR NODULAR DISEASE: THYROID, RIGHT COMPLETION THYROIDECTOMY SPECIMEN Electronically Signed Out By S ELENO AMAYA ASA, MD, PhD/SLA By the signature [...] that weighs 11.8 gm and measures 4.8 x2.6 x 1.5 cm. The surface has fibrous [...] in toto superior to inferior AMD amd/12/06/2021 [facility] Department of Pathology [address] [place] [address] Procedure 'Scores and Scales' Signatures Electronically signed by : Edy Dominguez MD; Dec 19 2021 7:05PM EST (Author) Normal TouchworksTobacco Screening.on 40-78-9161Fkxv risk assessmenta) No falls within the last ycocIX-Hjtvgwsntcdyjf-Redbnvvg Work Phone: Tobacco use status CPHSb) ErYO-Rksjsdnnftjfem-Etfbipfd Work Phone: Daily Progress Note-ENTon 34-45-7087Izvzc Progress Note-ENTService: ENT Subjective Data: LAURO PINTO is a 46 year old Female who is Hospital Day # 2 and POD #1 for 1. Completion right thyroidectomy. Additional Information: no issues overnight eating and drinking without issue O: AFVSS postop PTH normal steris in place, neck flat A/P s/p completion thyroidectomy -d/c today -scripts provided Objective Data: Objective Information: T PRBPMAPSpO2 Value36.36104208/789125% Date/Time12/05 4:004 4:004 4:004 4: 17:004 4:00 Range(36.2C - 37.2C ) [...] 2021 10:00 pm000 Dec 04, 2021 2:00 [id number] The Intake and Output Totals for the last 24 hours are: IntakeOutputNet [id number] Recent Lab Results: Results: RFP: 12/04/2021 11:09 NA+ Cl- BUN / 136 106 15 / Glucose 116 H K+ HCO3- Creat \ 4.1 21 0.89 \ Calcium : 8.5 LAnion Gap : 13 Albumin : 3.6 Phos : 2.5 Assessment and Plan: Comorbidities: Comorbidityobesity Obesitymorbid obesity (BMI 40+) Code Status: Code StatusFull Code Electronic Signatures: Edy Dominguez) (Signed 05-Dec-2021 07:10) Authored: Service, Subjective Data, Objective Data, Assessment and Plan, Note Completion Last Updated: 05-Dec-2021 07:10 by Edy Dominguez)NormalSt. Greene County HospitalMAGNESIUMon 99-89-6695Oxosivbgv [Mass/Vol]1.80 mg/dLNormal1.60 - 2.40St. Greene County HospitalComment on above:Performed By: #### MG #### [address] [address]Ojzkpzmkn, Serumon 86-73-4320Pdjfwjayp [Mass/Vol]1.80 mg/dLSee LjaqnVS-Fnmxbfaixqembl-Edccwqcf Work Phone: comment on above:Reference Range: 1.60 - 2.40 PARATHYROID HORMONE,INTACTon 85-43-6796VFZADOKGJWJ HORMONE,DYPOID86.2 pg/mL Koeykp37.0 - 88.0St. Greene County HospitalComment on above:Performed By: #### PTH #### [address], [place] [address]Xuibgouayxbw Intact, Serumon 06-01-1048Uyysbfwhcm.intact [Mass/Vol]77.2 pg/mLSee JdihqDH-Lpwtcgqzugxmsa-Vysqmkni Work Phone: comment on above:Reference Range: 12.0 - 88.0RENAL FUNCTION PANELon 66-12-7147Mqxgddd [Mass/Vol]3.4 g/dLNormal3.4 - 5.0St. Greene County HospitalComment on above:Performed By: #### RENAL #### [address] [place], [place] [address]Lzdsp gap [Moles/Vol]11 mmol/RZxaqdz79 - 20St. Greene County HospitalComment on above:Performed By: #### RENAL #### [address] [place], [place] [address]Mhvgmel [Mass/Vol]8.5 mg/dLLow8.6 - 10.3St. Greene County HospitalComment on above:Performed By: #### RENAL #### [address] [place], [place] [address]Cavymsqz [Moles/Vol]105 mmol/JPttzfb52 - 107St. Greene County HospitalComment on above:Performed By: #### RENAL #### [address] [place], [place] [address]Xrihurdjav [Mass/Vol]0.77 mg/dLNormal0.50 - 1.05St. Greene County HospitalComment on above:Performed By: #### RENAL #### [address] [place], [place] [address]vFRC FEMALE>90Normal>90St. Greene County HospitalComment on above:Result Comment: CALCULATIONS OF ESTIMATED GFR ARE PERFORMED USING THE 2020 CKD-EPI STUDY REFIT EQUATION WITHOUT THE RACE VARIABLE FOR THE IDMS-TRACEABLE CREATININE METHODS. https://jasn.asnjournals.org/content/early/ASN.9091536376Thkfnomyg By: #### RENAL #### [address] [place], [place] [address]Ehkruyb [Mass/Vol]123 mg/hJWvzj33 - 99[facility] Comment on above:Performed By: #### RENAL #### [address] [place], [place] [address]AMH7 (Bld) [Moles/Vol]25 mmol/JCfntbg91 - 32St. Greene County HospitalComment on above:Performed By: #### RENAL #### [address] [place], [place] [address]Svoydnhxu [Mass/Vol]3.6 mg/dLNormal2.5 - 4.9St. Greene County HospitalComment on above:Result Comment: The performance characteristics of phosphorus testing in heparinized plasma have been validated by the individual laboratory site where testing is performed. Testing on heparinized plasma is not approved by the FDA; however, such approval is not necessary.Performed By: #### RENAL #### [address] [place], [place] [address]Nrljgtyac [Moles/Vol]4.4 mmol/LNormal3.5 - 5.3St. [facility] County HospitalComment on above:Performed By: #### RENAL #### [address] [place], [place] [address]Pmuntw [Moles/Vol]137 mmol/MTkmrew008 - 145St. Greene County HospitalComment on above:Performed By: #### RENAL #### [address] [place], [place] [address]Azrp nitrogen [Mass/Vol]17 mg/dLNormal6 - 23St. Greene County HospitalComment on above:Performed By: #### RENAL #### [address] [place], [place] [address]Gquls Function Panelon 49-97-9289Vqarirv BCP dye [Mass/Vol]3.4 g/dL3.4 - 5.8KG-Jnsnrqcqbmdqpo-Wxrxmcfj Work Phone: [phone] gap [Moles/Vol]11 mmol/L10 - 20 NJ-Eldkstxjdzoxob-Aysbeedl Work Phone: [phone] [Mass/Vol]8.5 mg/dLbelow low threshold8.6 - 10.6DY-Sprpxvzxnefnpl-Ozikqcql Work Phone: [phone] [Moles/Vol]105 mmol/L98 - 107 HH-Ysuyvhqwuuflaw-Utmltyjv Work Phone: [phone] [Moles/Vol]25 mmol/L21 - 32 HL-Ilhokajgjqejyk-Ufdkenbp Work Phone: [phone] [Mass/Vol]0.77 mg/dLSee Below MO-Ncdapjpuliuqof-Tcntlhfy Work Phone: Comment on above:Reference Range: 0.50 - 1.05Glucose [Mass/Vol]123 mg/dLabove high isgigpjyi69 - 08BJ-Zofnmzlfvdamvf-Atbemmwf Work Phone: Phosphate [Mass/Vol]3.6 mg/dL2.5 - 4.9 IH-Dboseyoemwdrvd-Alqbsltb Work Phone: Comment on above:The performance characteristics of phosphorus testing in heparinized plasma have been validated by the individual laboratory site where testing is performed. Testing on heparinized plasma is not approved by the FDA; however, such approval is not necessary.Potassium [Moles/Vol]4.4 mmol/L3.5 - 5.6LE-Ujbrymuhdamsak-Ysatsapq Work Phone: Sodium [Moles/Vol]137 mmol/L136 - 145 ZN-Erqeylxjzkksly-Kqedytkv Work Phone: Urea nitrogen [Mass/Vol]17 mg/dL6 - 23 DU-Nfzcjprdbdeevl-Qquohyee Work Phone: Renal Function Panel>90>18MF-Hgdtvndmbdhqqd-Ranlwjud Work Phone: Comment on above:CALCULATIONS OF ESTIMATED GFR ARE PERFORMED USING THE 2020 CKD-EPI STUDY REFIT EQUATION WITHOUT THERACE VARIABLE FOR THE IDMS-TRACEABLE CREATININE METHODS.https://jasn.asnjournals.org/content/early/ASN.9955758021 Admission Risk Screen - Adulton 60-74-6870Bjspfewzg Risk Screen - Adult Allergies: Allergies: Succinylcholine Chloride: Unknown (Severe) Patient Verification: New W ID Band Applied in my Departmentno Type of ID Patient is WearingW wristband, but not applied here Patient Transferred from Other Facility ([facility], [facility],etc)no Patient Identity Verified Bypatient ID [...] AlertFor Ebola-like Symptoms: Isolate Patient and Notify Provider/Film Reader For Contact: Notify Provider/Film Reader Advance Directive: Advance Directive/DNRno Advance Directive Information Givenpatient/family declined [place] Fall Screen: History of falling (immediate or previous)no (0) Secondary Diagnosisno (0) Intravenous Therapy/ Heparin/Saline Lockyes (20) Gait/Transferringnormal/bedrest/wheelchair (0) Ambulatory Aidsnone/bedrest/nurse assist (0) Mental Statusoriented [...] Learning Preferencesverbal instruction Cultural Considerationsnone Developmental Considerationsnone Anglican Considerationsnone Learning Assessment (Other Learner): Other learner availableno Depression Screen: During the past month, have you often been bothered by feeling down, depressed or hopelessno During the past month, have you often had little interest or pleasure in doing thingsno Have you had any thoughts of harming anyone elseno [place] Suicide: Risk Screen Not Applicable/Able to Answerable to be screened In the Past Month: Have you wished you were or could go to sleep and not wake upno(1) In the Past Month: Have you had any actual thoughts of killing yourself no(1) Lifetime: Have you ever done, started to do, or prepared to do anything to end your lifeno(1) [place] Suicide Risknegative Adult Nutrition Screen: Have you [...] Spiritual Screen: Are there any cultural, spiritual, mormonism practices/values/needs that are important for us to knowno CAGE: Is this an injured patient at a Trauma Center ([facility]/[place]): no Vaccinations: Vaccination - Influenza Vaccination Screen: Is it flu season (between and December 04)Yes Screening for identified contraindications to influenza vaccination patient/caregiver refusal Vaccination - Pneumonia Vaccination Screen: Patient has received a previous pneumonia vaccine:no/unknown... Immunocompetent persons with underlying chronic conditions or reside in half-way care facilitiesnone of these conditions Persons with Functional or Anatomic Asplenianone of these conditions Immunocompromised Personsnone of these conditions Pneumonia v (more content not included)...NormalSt. Greene County Hospital CORONAVIRUS 2019, SCREEN ASYMPTOMATICon 23-64-7764HGMX OF SYMPTOM ONSET [YYYYMMDD]?CanceledNormalSt. Greene County HospitalComment on above:Order Comment: TEST PT/INR WAS CANCELLED, 07/07/2021 12:20 SPECIMEN CLOTTED.PLEASE RESUBMITDUPLICATE ORDER.Performed By: #### PTINR #### [facility] [address] [place] [address]QHIO-TbX-9 (COVID-19) RNA APURVA+probe Ql (Unsp spec)Canceled NormalSt. Greene County HospitalComment on above:Order Comment: TEST PT/INR WAS CANCELLED, 07/07/2021 12:20 SPECIMEN CLOTTED.PLEASE RESUBMITDUPLICATE ORDER.Result Comment: . This test has received FDA Emergency Use Authorization (EUA) and has been verified by [facility]. This test is only authorized for the duration of time that circumstances exist to justify the authorization of the emergency use of in vitro diagnostic tests for the detection of SARS-CoV-2 virus and/or diagnosis of COVID-19 infection under section 564(b)(1) of the Act, 21 U.S.C. 360bbb-3(b)(1), unless the authorization is terminated or revoked sooner. [facility] is certified under CLIA-88 as qualified to perform high complexity testing. Testing is performed in [place] [facility] [place] at [address] [place] [address]. SARS-CoV-2/Flu/RSV Multiplex Test: Fact sheet for providers: https://www.fda.gov/media/935722/download Fact sheet for patients: https://www.fda.gov/media/084603/downloadPerformed By: #### PTINR #### [address] [address]Sqt Specimen SourceNasal, NasopharyngealNormalSt. Greene County HospitalComment on above:Order Comment: TEST PT/INR WAS CANCELLED, 07/07/2021 12:20 SPECIMEN CLOTTED.PLEASE RESUBMITDUPLICATE ORDER.Performed By: #### PTINR #### [address] [address]Dlkeisuc Intervention - Pharmacyon 74-37-9808Tmcrkbse Intervention - PharmacyPharmacist's Clinical Intervention: Is this intervention medication reconciliation related: yes, History Electronic Signatures: Feliciano Martínez ([employer]) (Signed 04-Dec-2021 13:41) Authored: Pharmacist's Clinical Intervention Last Updated: 04-Dec-2021 13:41 by Feliciano Martínez ([employer])NormalMercy Hospital [place] [facility] – [place] CityCoronavirus 2019 RNA by PCR, Screening Asymptomticon 12-04-2021 Date and time of symptom jzaxzIfodrchrHO-Pocreljgcgbyzu-Bkcwypnq Work Phone: coronavirus 2019 RNA by PCR, Screening Asymptomtic SmmmaworKF-Qfnyybklikwtiq-Jjllmihx Work Phone: comment on above:SOURCE: Nasal, Nasopharyngeal.This test has received FDA Emergency Use Authorization (EUA) and has been verified by [facility]. This test is only authorized for the duration of time that circumstances exist to justify the authorization of the emergency use of in vitro diagnostic tests for the detection of SARS-CoV-2 virus and/or diagnosis of COVID-19 infection under section 564(b)(1) of the Act, 21 U.S.C. 360bbb-3(b)(1), unless the authorization is terminated or revoked sooner. [facility] is certified under CLIA-88 as qualified to perform high complexity testing. Testing [place] [facility] [place] at [address] [place] [address].SARS-CoV-2/Flu/RSV Multiplex Test: Fact sheetfor providers: https://www.fda.gov/media/088428/downloadFact sheet for patients: https://www.fda.gov/media/561964/downloadDischarge Svqhcgs6ng 12-04-2021 Discharge Kgnbiot7Tsssorwmv Orders: Anticipated Discharge Date: Anticipated Discharge Estb96-Hsr-5255 Anticipated Discharge Time11:00 Problem List: Additional Dx: [...] (POV) Call to Schedule in2 weeks Phone [phone], please call with any questions CommentsYou will [...] REVIEW of Orders, Appointments, Gold Form - Implementation Project Coordinator Summary Alejandra Shukla (ASST N MGR) (Signed 05-Dec-19 (more content not included)... NormalSt. Greene County HospitalHCG,URINEon 89-87-3461Ztly HCG ( test) Ql (U)NegativeNormalNegativeSt. Greene County HospitalComment on above:Performed By: #### HCGU #### [facility] [address] [place] [address]Tw Panel Informationon 60-93-1490Dsrb LAURO PINTO Pathologist: LILLI AMAYA ASA, MD, PhD Date of Procedure: 12/04/2021 Date PywodtsQF-Ooyrvswmyoduei-Egvwxzjb Work Phone: Order Reconciliationon 75-22-1014Sagrx Reconciliation Page 1 Discharge Reconciliation Document Reconciliation [...] tab(s) orally christina (more content not included)... NormalSt. Greene County HospitalOrder ReconciliationPage 1 Admission Reconciliation Document Reconciliation Type: Admission from OR requested on behalf of Modesto Blackburn (Resident) done by Modesto Blackburn (Resident)) Admission from OR - Reconciliation: 04-Dec-2021 05:06 by: Modesto Blackburn (Resident)) Home MedicationsEnteredLast Dose TakenReconciled with current Order Reconciliation Comment/ Additional Information omeprazole 20 mg oral delayed release capsule 1 cap(s) orally once a day 04-Dec-2021 Reviewed and Held traMADol 50 mg oral tablet 1 tab(s) orally every 6 hours as needed for pain not controlled with tylenol cesilia mckee, ICD10: G89.1761-Ecg-1894 Reviewed and Held Vraylar 1.5 mg oral capsule 1 cap(s) orally once a jbn16-Lzm-7123 Cariprazine Capsule (VRAYLAR)DOSE = 1.5 mg Oral DailyVraylar 1.5 mg oral capsule continued as the inpatient order Cariprazine Zoloft 25 mg oral tablet 0.5 tab(s) orally once a wqz14-Mto-2800 Reviewed and Held Additional Current Orders Acetaminophen [...] lozenge(s) Oral Every 2 Hours, PRN Sore ThroatNormalSt. Greene County HospitalPARATHYROID HORMONE,INTACTon 12-04-2021 PARATHYROID HORMONE,KLEGNP02.9 pg/xOXjyjed36.0 - 88.0[facility] Comment on above:Performed By: #### PTH #### [facility] [address] [place], [place] [address]Jukkpugwcmcg Intact, Serumon 88-50-4618Ijakjcvwuz.intact [Mass/Vol]38.9 pg/mLSee BipexZL-Bhqdvcvsvwzpsh-Nxmfyvsg Work Phone: comment on above:Reference Range: 12.0 - 88.0Patient Profile - Adult v2on 69-58-0957Jtpbakb Profile - Adult b6Otjvvcg: Initial Info: How to be Addressedmichelle(1) Spoken Language PreferredEnglish (1) Stated Reason for AdmissionSurgery Wants Family/Rep Notified of Admissionn/a; family present Notify PCPnotify PCP Informed of Patient Visiting Rightsyes Arrived FromOR Patient Belongingsnone Medications Brought to Hospitalno General Health: Blood Avoidance/Restrictionsnone(1) Previous Transfusion Reactionnot applicable(1) Weight in kg155.9 kilogram(s)(2) Weight in cnt847.7 pound(s) Weight Methodstated Scale Typebed Height in [...] From Patient Profile - Adult v2 10-Jul-2021 12:57NormalSt. Greene County HospitalPatient Profile - Preop v3on 37-37-9850Nikkcdl Profile - Preop n0Mxglyhy Profile - Preop: Initial Info: Patient DemographicsName: LAURO PINTO Date: 1975 Address: [address] [place] [address] Primary Phone [phone] How to be Addressedmichelle Spoken Language PreferredEnglish Source of Informationpatient Stated Reason for Admissionthyroidectomy Primary Contact Name and Numberbrenda-mother Limitations on Visitors/Phone Callsonly immediate family may visit Medications Brought to Hospitalno General Health: Weight in kg155.9 kilogram(s) Weight in dis833.7 pound(s) Weight Methodstated Height in feet6 feet [...] Tobacco Use: Tobacco Useno Pre-op Checklist: Arrival Irfy30-Xhw-7613 Arrival Time06:03 Procedure Typethyroidectomy NPOyes Last Food Digxyo77-Swd-6024 20:00 Last Clear Fluid Vshfhn33-Dqf-3791 20:00 ID Band On Patientpatient ID (name), [...] Last Updated: 04-Dec-2021 06:47 by Portia Naylor (SALLY)[facility] County HospitalRENAL FUNCTION PANELon 49-58-7827Lpiqkah [Mass/Vol]3.6 g/dLNormal3.4 - 5.0 [facility] [place] CityComment on above:Performed By: #### RENAL #### [address] [address]Xpqst gap [Moles/Vol]13 mmol/KVdtczc38 - 20SComanche County Memorial Hospital – LawtonComment on above:Performed By: #### RENAL #### [address] [address]Ogicxrb [Mass/Vol]8.5 mg/dLLow8.6 - 10.3St. Greene County HospitalComment on above:Performed By: #### RENAL #### [address] [place], [place] [address]Ebamffal [Moles/Vol]106 mmol/PQwzdfx60 - 107St. Greene County HospitalComment on above:Performed By: #### RENAL #### [address] [place], [place] [address]Ekpstwwnyv [Mass/Vol]0.89 mg/dLNormal0.50 - 1.05St. Greene County HospitalComment on above:Performed By: #### RENAL #### [address] [place], [place] [address]HAQ/1.73 sq M.predicted among non-blacks MDRD (S/P/Bld) [Vol rate/Area]81 mL/min/{1.73_m2}Normal>90St. Greene County HospitalComment on above: Result Comment: CALCULATIONS OF ESTIMATED GFR ARE PERFORMED USING THE 2020 CKD-EPI STUDY REFIT EQUATION WITHOUT THE RACE VARIABLE FOR THE IDMS-TRACEABLE CREATININE METHODS. https://jasn.asnjournals.org/content/early/ASN.5826274175Savdmswlq By: #### RENAL #### [address] [place], [place] [address]Wkvzetj [Mass/Vol]116 mg/yXRzqc17 - 99[facility] Comment on above:Performed By: #### RENAL #### [address] [place], [place] [address]NIJ0 (Bld) [Moles/Vol]21 mmol/MRtipor03 - 32St. [facility] County HospitalComment on above:Performed By: #### RENAL #### [address] [place], [place] [address]Ytambuywx [Mass/Vol]2.5 mg/dLNormal2.5 - 4.9St. Greene County HospitalComment on above:Result Comment: The performance characteristics of phosphorus testing in heparinized plasma have been validated by the individual laboratory site where testing is performed. Testing on heparinized plasma is not approved by the FDA; however, such approval is not necessary.Performed By: #### RENAL #### [address] [place], [place] [address]Nkhthnbnz [Moles/Vol]4.1 mmol/LNormal3.5 - 5.3St. [facility] HospitalComment on above:Performed By: #### RENAL #### [address] [place], [place] [address]Csuicr [Moles/Vol]136 mmol/QRojmcz095 - 145St. [facility] HospitalComment on above:Performed By: #### RENAL #### [address] [place], [place] [address]Owbv nitrogen [Mass/Vol]15 mg/dLNormal6 - 23St. [facility] HospitalComment on above:Performed By: #### RENAL #### [address] [place], [place] [address]Kgtoi Function Panelon 86-66-0617Zvinitv BCP dye [Mass/Vol]3.6 g/dL3.4 - 5.1BP-Sxoqzapwfpuggu-Rmsmxkfp Work Phone: [phone] gap [Moles/Vol]13 mmol/L10 - 20 GE-Mnzaoqzizrgamb-Bnxpgfyn Work Phone: [phone] [Mass/Vol]8.5 mg/dLbelow low threshold8.6 - 10.8WB-Gqlfpburwpmtcr-Bzgkhptx Work Phone: [phone] [Moles/Vol]106 mmol/L98 - 107 JD-Omirstpundviow-Dzhfrela Work Phone: [phone] [Moles/Vol]21 mmol/L21 - 32 VP-Dtqiyqsilbweis-Phygavnc Work Phone: [phone] [Mass/Vol]0.89 mg/dLSee Below ED-Bhqjnvldxcmolp-Jwftxmzb Work Phone: Comment on above:Reference Range: 0.50 - 1.05Glucose [Mass/Vol]116 mg/dLabove high - 57LC-Idhktigntuhrar-Tegqapcf Work Phone: Phosphate [Mass/Vol]2.5 mg/dL2.5 - 4.9 IJ-Luvdyahfgwdxgt-Tzqhzfwx Work Phone: Comment on above:The performance characteristics of phosphorus testing in heparinized plasma have been validated by the individual laboratory site where testing is performed. Testing on heparinized plasma is not approved by the FDA; however, such approval is not necessary.Potassium [Moles/Vol]4.1 mmol/L3.5 - 5.1UJ-Rtdejxrjepkzdl-Kvdcmwub Work Phone: [phone] [Moles/Vol]136 mmol/L136 - 145 MU-Wuvmyeijeniiru-Rwjtlaju Work Phone: [phone] nitrogen [Mass/Vol]15 mg/dL6 - 23 YJ-Ijqkkyitsqmzrf-Oswzlrvn Work Phone: [phone] Function Panel81 {mL/min/1.73m2}>90 JP-Smjezueavndfxa-Tvgsxmpn Work Phone: Comment on above:CALCULATIONS OF ESTIMATED GFR ARE PERFORMED USING THE 2020 CKD-EPI STUDY REFIT EQUATION WITHOUT THERACE VARIABLE FOR THE IDMS-TRACEABLE CREATININE METHODS.https://jasn.asnjournals.org/content//ASN.6389212043ZKE Surgical Pathology Departmenton [id number] Surgical Pathology DepartmentName LAURO PINTO Pathologist: LILLI AMAYA ASA, MD, PhD Date of Procedure: 12/04/2021 Date Received: 12/04/2021 Date Reported 12/10/2021 Submitting Physician: EDY DOMINGUEZ MD Location: [facility] External # FINAL DIAGNOSIS A. RIGHT [...] in toto superior to inferior AMD amd/12/06/2021 [facility] Department of Pathology [address] [place], [place] [id number] Hospital at St. Anthony Medical CampusComment on above:Performed By: #### [facility] #### [facility] Surgical Pathology Department [address] [place], [place] [id number] Teston 79-15-4958QMD ( test) Ql (U) IbhjrgxqExxfnrcxMP-Vgucxxftktpmtd-Spygpmyg Work Phone: Established Visit (Otolaryngology)on 10-27-2021 Established Visit (Otolaryngology)Diagnoses/Problems Thyroid nodule (241.0) (E04.1) Provider Impressions 45 [...] doing well and has not had any significantchanges. No issues with voice or swallowing Review [...] MOUTH ONCE DAILY Vitals Vital Signs Recorded: 27Oct2021 09:32AM Ayjtdeudirp40.9 F Incqwakl612 Mborgtkfb34 Height6 ft 1 in Nhapcb582 lb BMI Bxtqsjmact65.25 kg/m2 BSA Calculated2.71 Tobacco Useb) No Fall Screeninga) No falls within the last year Pain Scale0 Physical Exam Well appearing individual in no acute distress. No stertor and no Stridor. Good voice. No LAD. Skinis soft and supple. Oral cavity and oropharynx are without lesions. No thyromegaly. Anterior rhinoscopy reveals normal nasal mucosa bilaterally. EAC normal AU with RITIKA. Cranial Nerves grossly intact.Neck incision well-healed. Strong gag reflex Procedure Due to an excessive gag reflex after verbal consent a flexible laryngoscopy was performed. No lesions in the nasal cavity, nasopharynx, oropharynx, hypopharynx or larynx were seen. Normal TVC mobility was appreciated. 'Scores and Scales' Signatures Electronically signed by : Edy Dominguez MD; Oct 27 2021 10:15AM EST (Author) Normal [facility] Risk Screeningon 04-62-1782Eghd risk assessmenta) No falls within the last mdmnEE-Kpmstlenmdzhoo-Edorrvpy SJW 250 Work Phone: Tobacco use status CPHSb) EzOD-Htzmztqxwcfksd-Tekoevlu SJ[address] Work Phone: COVID + FLU Quick Testingon 27-22-3251CZQL-CoV-2 (COVID-19) RNA APURVA+probe Ql (Unsp spec)PositiveNothree rivers healthcare Agolo Other COVID + FLU Quick TestingNegativeNort Agolo Other Established Visit (Otolaryngology)on 07-21-2021 Established Visit (Otolaryngology)Diagnoses/Problems Thyroid nodule (241.0) (E04.1) Provider Impressions 45 [...] DAILY Vitals Vital Signs Recorded: 21Jul2021 02:48PM Imnstucliqr89.9 F Hqsrvfum564 Citugzkir26 Height6 ft 1 in Ppespp417 lb BMI Pfvzxuirmb79.59 kg/m2 BSA Calculated2.69 Tobacco Useb) No Fall Screeninga) No falls within the last year Pain Scale2 Physical Exam Steri-Strips removed, neck incision healing well, no sign of infection or fluid collection 'Scores and Scales' Signatures Electronically signed by : Edy Dominguez MD; Jul 25 2021 4:35AM EST (Author) NormalUH TouchworksTobacco Screening.on 83-34-2950Dfoi risk assessmenta) No falls within the last egihPG-Diczdbmncaepza-Fhbnsesk Work Phone: Tobacco use status CPHSb) IaTC-Wtqkhwwhbmolfs-Vrfyaaaw Work Phone: Daily Progress Note-ENTon 09-58-1610Xuyjt Progress Note-ENTService: ENT Subjective Data: LAURO PINTO is a [...] today Objective Data: Objective Information: T PRBPSpO2 Value36.84213496/5698% Date/Time07/10 22:5307/10 22:5307/10 19:40109/09 22:5307/10 22:53 Range(36.2C - 36.8C ) (69 - 83 ) (13 - 18 ) (108 - 133 )/ (56 - 73 ) (97% - 98% ) As of 10-Jul-2021 16:01:00, patient is on 2 L/min of oxygen via room air. Pain reported at 07/11 2:45: 4 = Moderate ---- Intake and Output ----- Mn/Dy/Year TimeIntakeOutputNet Jul 11, 2021 6:00 [id number] Jul 10, 2021 10:00 [id number] Jul 10, 2021 2:00 [id number] The Intake and Output Totals for the last 24 hours are: IntakeOutputNet [id number] Recent Lab Results: Results: Coagulation: 07/10/2021 07:50 PT / 12.0 / -------< INR < 1.0 PTT\ 26 \ Assessment and Plan: Comorbidities: Comorbidityobesity Obesitymorbid obesity (BMI 40+) Code Status: Code StatusFull Code Electronic Signatures: Edy Dominguez) (Signed 11-Jul-2021 06:06) Authored: Service, Subjective Data, Objective Data, Assessment and Plan, Note Completion Last Updated: 11-Jul-2021 06:06 by Edy Dominguez)NormalSt. Greene County HospitalAPTTon 48-50-2876mXAE Coag (Bld) [Time]26 vMpmkhk02 - 35St. [facility] County HospitalComment on above:Result Comment: THE APTT IS NO LONGER USED FOR MONITORING UNFRACTIONATED HEPARIN THERAPY. FOR MONITORING HEPARIN THERAPY, USE THE HEPARIN ASSAY.Performed By: #### APTT #### [facility] [address] [facility] [place], [place] [address]Eqncjwuzr Partial Thromboplastin Timeon 81-17-5360zUEV Coag (PPP) [Time]26 s25 - 00CE-Fhvuurypbvbeev-Hcihwnle Work Phone: comment on above:THE APTT IS NO LONGER USED FOR MONITORING UNFRACTIONATED HEPARIN THERAPY. FOR MONITORING HEPARIN THERAPY, USE THE HEPARIN ASSAY.Admission Risk Screen - Adulton 96-77-9028Jahgwyaep Risk Screen - AdultAllergies: Allergies: Succinylcholine Chloride: Unknown (Severe) Patient Verification: [...] AlertFor Ebola-like Symptoms: Isolate Patient and Notify Provider/Film Reader For Contact: Notify Provider/Film Reader Advance Directive: Advance Directive/DNRno Advance Directive Information [...] demonstration; verbal instruction Cultural Considerationsnone Developmental Considerationsnone Anglican Considerationsnone Learning Assessment (Other Learner): Other learner availableno Depression Screen: During the past month, have you often been bothered by feeling down, depressed or hopelessno During the past month, have you often had little interest or pleasure in doing thingsno Have you had any thoughts of harming anyone elseno [place] Suicide: Risk Screen Not Applicable/Able to Answerable to be screened In the Past Month: Have you wished you were or could go to sleep and not wake upno(1) In the Past Month: Have you had any actual thoughts of killing yourself no(1) Lifetime: Have you ever done, started to do, or prepared to do anything to end your lifeno(1) [place] Suicide Risknegative Adult Nutrition Screen: (more content not included)...NormalSt. Greene County HospitalDischarge Hbomlhx1wo 97-88-6693Qbiqfeapx Tzhrmpn1Hsrfxbmrd Orders: Anticipated Discharge Date: Anticipated Discharge Gpdg12-Ypm-7520 Anticipated Discharge Time11:00 Problem List: Medical History: [...] Course (Home Care/Gold Form), Gold Form - Implementation Project Coordinator Summary Edy Dominguez) (Signed 11-Jul-2021 06:07) Authored: Discharge Orders, Hospital Course (Home Care/Gold Form), Provider FINAL REVIEW of Orders Last Updated: 11-Jul-2021 06:07 by Edy Dominguez)NormalSt. Greene County HospitalHCG,URINEon 54-66-8451Csse HCG ( test) Ql (U)NegativeNormal NegativeSt. Greene County HospitalComment on above:Performed By: #### HCGU #### [facility] [address] [place], [place] [address]Jfbzrmbibt - Coagulationon 64-61-0703ZTY Coag (PPP) [Relative time]1.0 {INR}0.9 - 1.2ES-Tzzzoqtvqdfkxs-Hiqazkor Work Phone: PT Coag (PPP) [Time]12.0 sSee Below EQ-Iqwrgyfbunpleq-Ufgbvyrk Work Phone: comment on above:Reference Range: 10.1 - 13.3No Panel Informationon 69-53-3408Bazr LAURO PINTO Pathologist: LILLI AMAYA ASA, MD, PhD Date of Procedure: 07/10/2021 Date IwxakxrVF-Xwgqlemrayxsyv-Jmkwqkqo Work Phone: Order Reconciliationon 71-58-9100Rdxwn Reconciliation Page 1 Discharge Reconciliation Document Reconciliation [...] oral tablet 0.5 tab(s) orally once a dayNoCritical access hospitalt. [facility] County HospitalOrder ReconciliationPage 1 Admission Reconciliation Document Reconciliation Type: Admission from OR requested on behalf of Juan Becerra (Resident) done by Juan Becerra ( (Resident)) Admission from OR - Reconciliation: 10-Jul-2021 08:48 by: Juan Becerra ( (Resident)) Home MedicationsEnteredLast Dose TakenReconciled with current Order Reconciliation Comment/ Additional Information omeprazole 20 mg oral delayed release capsule 1 cap(s) orally once a day 463716-Yzq-8111 PM Pantoprazole Enteric Coated Tablet (PROTONIX)DOSE = 40 mg Oral DailyNotes from Pharmacy: Substitution for Omeprazole 20 mg Oral Capsule Dailyomeprazole 20 mg oral delayed release capsule continued as the inpatient order Pantoprazole Vraylar 1.5 mg oral capsule 1 cap(s) orally once a ahi89-Yqr-256779-Mxn-1722 PM Cariprazine Capsule (VRAYLAR)DOSE = 1.5 mg Oral DailyVraylar 1.5 mg oral capsule continued as the inpatient order Cariprazine Zoloft 25 mg oral tablet 0.5 tab(s) orally once a kzo31-Siv-568616-Mjb-1369 PM Sertraline - PEDS Tablet (ZOLOFT)DOSE = [...] a Day, and ambulat (more content not included)...NormalSt. Greene County HospitalPT/INRon 96-96-4044OK Coag (PPP) [Time] 12.0 pIyobpi39.1 - 13.3St. [facility] County HospitalComment on above:Performed By: #### MG #### [address] [address]YL, INR1.5Zuesit6.9 - 1.1St. [facility] County HospitalComment on above:Performed By: #### MG #### [address] [place], [place] [address]Jfadrmb Profile - Adult v2on 82-63-3755Wjinoqw Profile - Adult o5Wyuafov: Initial Info: How to be Addressedmichelle(1) Spoken Language PreferredEnglish (1) Source of Informationpatient Stated Reason for Admissionleft thyroidectomy Primary Contact Name and Numberheather [phone] Wants Family/Rep Notified of Admissionyes, primary contact Notify PCPnotify PCP Informed of Patient Visiting Rightsyes Arrived FromOR Was Admitted To in Past 90 Daysnone Patient Belongingsremains with patient Patient Belongings Remaining with Patientclothing; cell phone/electronics; purse/wallet; Purse, clothing, cell phone Medications Brought to Hospitalno General Health: Blood Avoidance/Restrictionsnone(1) Previous Transfusion Reactionno(1) Weight in kg152.9 kilogram(s) Weight in jsf802 pound(s) Weight Methodstated Scale Typestanding Height in [...] no (1) Are You Currently Breastfeedingno (1) 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 [facility] HospitalPatient Profile - Preop v3on 12-34-1986Awrqpfr Profile - Preop q3Fesatpd Profile - Preop: Initial Info: Patient DemographicsName: LAURO PINTO Date: 1975 Address: [address] [place] [address] Primary Phone [phone] How to be Addressedmichelle Spoken Language PreferredEnglish Source of Informationpatient Stated Reason for Admissionleft thyroidectomy Primary Contact Name and Numberheather [phone] Patient Belongingsnone Medications Brought to Hospitalno General [...] child(fely) Living Arrangementshouse Resource/Environmental Concernsnone Anticipated Transition [place] [facility] Anticipated at Transitionnone Tobacco Use: Tobacco Useno Pre-op Checklist: Arrival Bkzw63-Bwa-1035 Arrival Time06:45 Procedure Typeleft hemithyroidectomy NPOyes Last Food Igmvnt94-Cxd-4086 18:00 Last Clear Fluid Hqtqgx07-Qjp-1638 06:20 ID Band On Patientpatient ID (name) [...] - Surgical Update < 30 days 10-Jul-2021 07:14NormalSt. [facility] on 82-97-2197RWJ Surgical Pathology DepartmentName LAURO PINTO Pathologist: LILLI AMAYA ASA, MD, [...] nodule(s) or nodular follicular disease ADDITIONAL TESTING FABRIC WORKER FITTER BLOCKS: Normal Block: A20 Tumor Block: A8, [...] and has a heterogeneous, gelatinous cut surface. Nut Dehydrator Operator sections of the specimen are submitted in 20 cassettes. A 1 superior lobe, outbound telemarketing representative perpendicular sections 2-15 superior to inferior, outbound telemarketing representative sections 16 inferior lobe, outbound telemarketing representative perpendicular sections 17 isthmus resection margin, en face 18-20 outbound telemarketing representative sections of isthmus, from margin to lobe DLS dls/07/14/2021 [facility] Department of Pathology [address], [place] [address]PhptcbZHThe Memorial Hospital Of Salem CountyComment on above:Performed By: #### UHCS #### [facility] Surgical Pathology Department [address] [facility] [address]Zucyv Teston 99-45-7823YQX ( test) Ql (U) GbreiuudCivcpprcIY-Igsitbkswsgpyj-Yqifpjsg Work Phone: aPTTon 99-75-1782LCBRPidahlseXgcszaWw. [facility] County HospitalComment on above:Order Comment: TEST APTT WAS CANCELLED, 07/07/2021 12:20 SPECIMEN CLOTTED.PLEASE RESUBMIT.Result Comment: THE APTT IS NO LONGER USED FOR MONITORING UNFRACTIONATED HEPARIN THERAPY. FOR MONITORING HEPARIN THERAPY, USE THE HEPARIN ASSAY.Performed By: #### APTT #### [facility] [address] [place] [address]Zofjhebiu Partial Thromboplastin Timeon 22-65-2683sNCD Coag (PPP) [Time]JthkfujzKL-Gcqfaapsyjyxim-Vlwhtlkp Work Phone: comment on above:THE APTT IS NO LONGER USED FOR MONITORING UNFRACTIONATED HEPARIN THERAPY. FOR MONITORING HEPARIN THERAPY, USE THE HEPARIN ASSAY.CBC AND DIFFERENTIALon 07-07-2021% AUTOMATED IMMATURE GRAN0.3 %Normal0.0 - 0.9St. [facility] County HospitalComment on above:Result Comment: Immature Granulocyte Count (IG) includes promyelocytes, myelocytes and metamyelocytes but does not include bands. Percent differential counts (%) should be interpreted in the context of the absolute cell counts (cells/L).Performed By: #### PTINR #### [facility] [id number] [place] [address]Dzdsyktvj (Bld) [#/Vol]0.03 10*3/uLNormal0.00 - 0.10St. [facility] HospitalComment on above:Performed By: #### PTINR #### [address] [address]Nyfzrhmbh/100 WBC (Bld)0.4 %Normal0.0 - 2.0St. [facility] HospitalComment on above:Performed By: #### PTINR #### [address] [address]Pmynkabzftj (Bld) [#/Vol]0.10 10*3/uLNormal0.00 - 0.70St. [facility] HospitalComment on above:Performed By: #### PTINR #### [address] [address]Iwzzsfonqff/100 WBC (Bld)1.5 %Normal0.0 - 6.0St. [facility] HospitalComment on above:Performed By: #### PTINR #### [address] [address]Ssmpeeenzzp distribution width (RBC) [Ratio]13.9 %Qqjevm67.5 - 14.5St. [facility] HospitalComment on above:Performed By: #### PTINR #### [address] [address]Lguloefpwb (Bld) [Volume fraction]39.1 %Gpgltb78.0 - 46.0St. [facility] HospitalComment on above:Performed By: #### PTINR #### [address] [address]Jegkrtvggq (Bld) [Mass/Vol]11.7 g/dLLow12.0 - 16.0St. [facility] HospitalComment on above:Performed By: #### PTINR #### [address] [address]Pwvtkegthnb (Bld) [#/Vol]1.82 10*3/uLNormal1.20 - 4.80St. [facility] HospitalComment on above:Performed By: #### PTINR #### [address] [address]Aamscmayhjl/100 WBC (Bld)26.6 %Spevym35.0 - 44.0St. [facility] HospitalComment on above:Performed By: #### PTINR #### [address] [address]LVOT (RBC) [Mass/Vol]29.9 g/dLLow32.0 - 36.0St. [facility] HospitalComment on above:Performed By: #### PTINR #### [address] [address]HYK (RBC) [Entitic vol]89 dBLaqpnr99 - 100St. [facility] HospitalComment on above:Performed By: #### PTINR #### [address] [address]Xaxwpyxqu (Bld) [#/Vol]0.40 10*3/uLNormal0.10 - 1.00St. [facility] HospitalComment on above:Performed By: #### PTINR #### [address] [address]Dceokplov/100 WBC (Bld)5.8 %Normal2.0 - 10.0St. [facility] HospitalComment on above:Performed By: #### PTINR #### [address] [address]Dkaamylbyig (Bld) [#/Vol]4.47 10*3/uLNormal1.20 - 7.70St. [facility] HospitalComment on above:Performed By: #### PTINR #### [address] [address]Pnskyiixhiv/100 WBC (Bld)65.4 %Qmvboc14.0 - 80.0St. [facility] HospitalComment on above:Performed By: #### PTINR #### [address] [address]GPHRGZJHC RBC0.0 /100 WBCNormal0.0 - 0.0St. [facility] HospitalComment on above:Performed By: #### PTINR #### [address] [address]Xkbsclnvp (Bld) [#/Vol]243 10*3/pBTqihje705 - 450St. [facility] HospitalComment on above:Performed By: #### PTINR #### [address] [address]ZSG0.40 x10E12/LNormal4.00 - 5.20[facility] Comment on above:Performed By: #### PTINR #### [address] [address]DKZ (Bld) [#/Vol]6.8 10*3/uLNormal4.4 - 11.3St. [facility] HospitalComment on above:Performed By: #### PTINR #### [address] [address]BJTQJEKAOEQPS PANELon 26-91-4484Vdcsujp [Mass/Vol]4.0 g/dL Normal3.4 - 5.0St. [facility] HospitalComment on above:Performed By: #### PTINR #### [address] [address]PEE [Catalytic activity/Vol]49 U/JFwutku44 - 110St. [facility] HospitalComment on above:Performed By: #### PTINR #### [address] [address]MCP [Catalytic activity/Vol]5 U/LLow7 - 45St. [facility] County HospitalComment on above:Result Comment: Patients treated with Sulfasalazine may generate falsely decreased results for ALT.Performed By: #### PTINR #### [address] [address]Tmgqr gap [Moles/Vol]11 mmol/HZfaipt23 - 20St. [facility] HospitalComment on above:Performed By: #### PTINR #### [address] [address]EPY [Catalytic activity/Vol]13 U/LNormal9 - 39St. [facility] HospitalComment on above:Performed By: #### PTINR #### [address] [place], [place] [address]Hhgarwoiv [Mass/Vol]0.5 mg/dLNormal0.0 - 1.2St. [facility] HospitalComment on above:Performed By: #### PTINR #### [address] [place], [place] [address]Upnknfj [Mass/Vol]8.8 mg/dLNormal8.6 - 10.3St. [facility] HospitalComment on above:Performed By: #### PTINR #### [address] [place], [place] [address]Hzlbckku [Moles/Vol]106 mmol/VCpdesw66 - 107St. [facility] HospitalComment on above:Performed By: #### PTINR #### [address] [place], [place] [address]Jexuwyqpoy [Mass/Vol]0.69 mg/dLNormal0.50 - 1.05St. [facility] HospitalComment on above:Performed By: #### PTINR #### [address] [place], [place] [address]IIP-SGPIEFG AM.>60Normal>60St. [facility] County HospitalComment on above:Result Comment: CALCULATIONS OF ESTIMATED GFR ARE PERFORMED USING THE MDRD STUDY EQUATION FOR THE IDMS-TRACEABLE CREATININE METHODS. CLIN CHEM 2007;53:766-72Performed By: #### PTINR #### [address] [place], [place] [address]VRA-ODH AM.>60Normal>60St. [facility] County HospitalComment on above:Performed By: #### PTINR #### [address] [place], [place] [address]Nuamxtf [Mass/Vol]101 mg/kBViej50 - 99[facility] Comment on above:Performed By: #### PTINR #### [address] [place], [place] [address]NTR2 (Bld) [Moles/Vol]24 mmol/AGqluex90 - 32St. [facility] HospitalComment on above:Performed By: #### PTINR #### [address] [place], [place] [address]Mmnlpaxez [Moles/Vol]4.0 mmol/LNormal3.5 - 5.3St. [facility] HospitalCom[facility] on above:Performed By: #### PTINR #### [address] [place], [place] [address]Vohzhdg [Mass/Vol]7.1 g/dLNormal6.4 - 8.2St. [facility] HospitalComment on above:Performed By: #### PTINR #### [address] [place], [place] [address]Dsiobq [Moles/Vol]137 mmol/CRexska004 - 145St. [facility] HospitalComforest [facility] center on above:Performed By: #### PTINR #### [address] [place], [place] [address]Hrqb nitrogen [Mass/Vol]16 mg/dLNormal6 - 23St. [facility] HospitalComforest [facility] medical center on above:Performed By: #### PTINR #### [address] [place] [address]DWEZXAFOVES 2019, SCREEN ASYMPTOMATICon 62-29-0686IGKG-CoV-2 (COVID-19) RNA APURVA+probe Ql (Unsp spec)Not detectedNormalNot DetectedRobert Wood Johnson University HospitalComment on above:Result Comment: . This assay is designed to [...] patient management decisions. Fact sheet for providers: https://www.fda.gov/media/876054/download Fact sheet for patients: https://www.fda.gov/media/553888/download This test has received FDA Emergency Use Authorization (EUA) and has been verified by [facility] ([facility]). This test is only authorized for the duration of time that circumstances exist to justify the authorization of the emergency use of in vitro diagnostic tests for the detection of SARS-CoV-2 virus and/or diagnosis of COVID-19 infection under section 564(b)(1) of the Act, 21 U.S.C. 360bbb-3(b)(1), unless the authorization is terminated or revoked sooner. [facility] is certified under CLIA-88 as qualified to perform high complexity testing. Testing is performed in the [facility] laboratories located at [address] [place] [address].Performed By: #### COVSC #### [place], [place] [address]Lab Specimen SourceNasal, NasopharyngealNormalUH Jfk Medical CenterComment on above:Performed By: #### COVSC #### [place], [place] [address]Complete Blood Count + Differentialon 86-59-2241Gyyhoombh/100 WBC (Bld)0.4 %0.0 - 2.4OH-Tovfnwpvrrlcwc-Mygpahyk Work Phone: Erythrocyte distribution width (RBC) [Ratio]13.9 %See TdohlPC-Xpxfwjhwwczrsg-Gaeqgtzt Work Phone: Comment on above:Reference Range: 11.5 - 14.5 Hematocrit (Bld) [Volume fraction]39.1 %See JqinfGB-Vbubawrmjydfpc-Ozvqlhpg Work Phone: Comment on above:Reference Range: 36.0 - 46.0 Hemoglobin (Bld) [Mass/Vol]11.7 g/dLbelow low thresholdSee Below [facility] Work Phone: Comment on above:Reference Range: 12.0 - 16.0 Lymphocytes/100 WBC (Bld)26.6 %See FkszjRL-Prnvnspbzyilfm-Zbsomfkr Work Phone: Comment on above:Reference Range: 13.0 - 44.0MCHC (RBC) [Mass/Vol]29.9 g/dLbelow low thresholdSee DrchgQZ-Wwtzxsviauefxr-Dowgqozr Work Phone: Comment on above:Reference Range: 32.0 - 36.0MCV (RBC) [Entitic vol]89 fL80 - 044OC-Afvflqsuvlcwiq-Okzhljnk Work Phone: [phone]/100 WBC (Bld)5.8 %2.0 - 10.0 BJ-Wpexwtudsaxpbe-Dbmlmwto Work Phone: [phone]/100 WBC (Bld)65.4 %See Below [employer] Work Phone: Comment on above:Reference Range: 40.0 - 80.0Platelets (Bld) [#/Vol]243 10*3/uL150 - 571IZ-Cjydwnmpawymti-Hzbkhewa Work Phone: RBC (Bld) [#/Vol]4.40 {x10E12/L}See Below [employer] Work Phone: Comment on above:Reference Range: 4.00 - 5.20WBC (Bld) [#/Vol]6.8 10*3/uL4.4 - 11.2FO-Wiordyvqxkhcyb-Yocylnco Work Phone: Complete Blood Count + Differential0.03 {x10E9/L}See FcareQB-Jnddbpqhyvxwgo-Houfoasa Work Phone: Comment on above:Reference Range: 0.00 - 0.10Complete Blood Count + Differential0.10 {x10E9/L}See AjffqFY-Quqbdikpvuhndx-Nnkvchzp Work Phone: Comment on above:Reference Range: 0.00 - 0.70Complete Blood Count + Differential0.40 {x10E9/L}See NlutfLC-Znpobqntcjqoqv-Zvahulif Work Phone: Comment on above:Reference Range: 0.10 - 1.00Complete Blood Count + Differential1.82 {x10E9/L}See HxpkmUD-Lqbyicednxnlrc-Cirhteio Work Phone: Comment on above:Reference Range: 1.20 - 4.80Complete Blood Count + Differential4.47 {x10E9/L}See TkwxkAW-Gviukqakevtnhh-Xexwztqs Work Phone: Comment on above:Reference Range: 1.20 - 7.70Complete Blood Count + Differential1.5 %0.0 - 6.2VT-Kugqylufgxmnyh-Noqslvue Work Phone: Aomplete Blood Count + Differential0.3 %0.0 - 0.9 [facility] Work Phone: Aomment on above:Immature Granulocyte Count (IG) includes promyelocytes, myelocytes and metamyelocytes but does not include bands. Percent differential counts (%) should be interpreted in the context of the absolute cell counts (cells/L).Complete Blood Count + Differential0.0 {/100_WBC}0.0 - 0.3ZO-Egqfabdvihrzly-Vsaklmbd Work Phone: Doronavirus 2019 RNA by PCR, Screening Asymptomticon 63-40-9543Vggvzuuknes 2019 RNA by PCR, Screening AsymptomticNot detectedNormal See VvhsdZS-Xmztobfahyrwkc-Hbxjqtrp Work Phone: comment on above:SOURCE: Nasal, NasopharyngealReference Range: Not Detected.This assay is designed to detect the N, ORF1ab and/or S genes of SARS-CoV-2 via nucleic acid amplification. A Negative (NOT DETECTED) resultdoes not preclude 2019-nCoV infection since the adequacy of sample collection and/or low viral burden may result in presence of viral nucleic acids below the clinical sensitivity of this test method.Negative (NOT DETECTED) result should not be used as the sole basis for treatment or other patient management decisions. Rather negative results should be combined with clinical observations, patienthistory, and epidemiological information to make patient management decisions.Fact sheet for providers: https://www.fda.gov/media/137331/downloadFact sheet for patients: https://www.fda.gov/media/605681/downloadThis test has received FDA Emergency Use Authorization (EUA) and has been verified by [facility] ([facility]). This test is only authorized for the duration of time that circumstances exist to justify the authorization of the emergency use of in vitro diagnostic tests for the detection of SARS-CoV-2 virus and/or diagnosis of COVID-19 infection under section 564(b)(1) of the Act, 21 U.S.C. 360bbb- 3(b)(1), unless the authorization is terminated or revoked sooner. [facility] is certified under CLIA-88 as qualified to perform high complexity testing. Testing is performed in the [facility] laboratories located at [address] [place] [address].Covid 19 Resultson 07-07-2021 SARS-CoV-2 (COVID-19) RNA APURVA+probe Ql (Unsp spec)NEGATIVE COVID-19 Test Coronaviruses are common world-wide and [...] You may also be contacted by the [facility] to see if any of your [...] or Naproxen (Aleve) can also be used. Jugn-ynl-knvcpph cough and cold medicines can be used according to the instructions on the package. Some niko-zmh-zcqlaka medicines also contain acetaminophen. Make sure you [...] water are not available, use alcohol-based hand community relations representative. Avoid touching your eyes, nose, and mouth [...] gone for 24 carson (more content not included)...[facility] HealthcareEstablished Visit (Otolaryngology) on 84-16-9347Mdhcbiotwvm Visit (Otolaryngology)Diagnoses/Problems Thyroid nodule (241.0) (E04.1) Provider Impressions 46 [...] Complaint Goiter, thyroid nodule History of Present Vzorhmr29-oxkw-eyb female referred by Dr. Christian for evaluation [...] and no Stridor. Good voice. No LAD. Skinis soft and supple. Oral cavity and oropharynx [...] Jul 07 2021 12:41PM EST (Author) Normal TouchworksLaboratory - Chemistry and Chemistry - challengeon 07-07-2021 Albumin BCP dye [Mass/Vol]4.0 g/dL3.4 - 5.2JE-Jwhvimgtazhhil-Cxmmisrc Work Phone: [phone] [Catalytic activity/Vol]49 U/L33 - 110 JG-Dqseklcdkwyogu-Pqbjntlx Work Phone: [phone] With P-5'-P [Catalytic activity/Vol]5 U/Lbelow low threshold7 - 95SI-Lwxreocelkwqwp-Wyatkrud Work Phone: [phone] on above:Patients treated with Sulfasalazine may generate falsely decreased results for ALT.Anion gap [Moles/Vol]11 mmol/L10 - 48YZ-Ekijrcjjjzbggb-Vjhsxysc Work Phone: [phone] With P-5'-P [Catalytic activity/Vol]13 U/L9 - 39 CL-Hfhrhixcnzsnts-Dcwdabxh Work Phone: [phone] [Mass/Vol]0.5 mg/dL0.0 - 1.2 DS-Mpwajcnttfjioq-Klqeznyx Work Phone: [phone] [Mass/Vol]8.8 mg/dL8.6 - 10.3 KC-Lmyigwqxghptib-Hneczpqk Work Phone: [phone] [Moles/Vol]106 mmol/L98 - 107 WG-Ezfdhkakikommv-Kllchcvf Work Phone: [phone] [Moles/Vol]24 mmol/L21 - 32 FJ-Bdiptqdbxetuad-Yzuecyen Work Phone: [phone] [Mass/Vol]0.69 mg/dLSee Below LI-Nucruqwxwuxiza-Gqdaasck Work Phone: [phone] on above:Reference Range: 0.50 - 1.05Glucose [Mass/Vol]101 mg/dLabove high cgtmqkgdo03 - 47PF-Dyceoredujqlqx-Esuoqsna Work Phone: [phone] [Moles/Vol]4.0 mmol/L3.5 - 5.3 UJ-Vcgeybpskobsdw-Wtafitbm Work Phone: [phone] [Mass/Vol]7.1 g/dL6.4 - 8.2 MC-Jklnolhxbhwvex-Qpkekylu Work Phone: Sodium [Moles/Vol]137 mmol/L136 - 145 RX-Rpgljvnabxnzhx-Xzsrpker Work Phone: [phone] nitrogen [Mass/Vol]16 mg/dL6 - 23 GH-Tsjrgrqmtnhmkd-Jwcmktmn Work Phone: [phone] - Coagulationon 14-84-4466IYG Coag (PPP) [Relative time]AuiisgqhTO-Wsbaybpesemsgo-Zjmjtlyz Work Phone: [phone] Coag (PPP) [Time]UkucqtsbDO-Nuvfjyxsciimsj-Zxrhvvje Work Phone: [phone] Panel Informationon 07-07-2021>60>60 LB-Bcgyyxrljyuuzb-Wxttzvte Work Phone: Comment on above:CALCULATIONS OF ESTIMATED GFR ARE PERFORMED USING THE MDRD STUDY EQUATION FOR THE IDMS-TRACEABLE CREATININE METHODS. CLIN CHEM 2007;53:766-72 [email or web address]?RetrieveTestByDateTime?Patien hGV=[id number]&Da te=09-16-2020&Time=10%3a44%3a00%3a00&TestType=ECG&Site=12&OutputType=PDF&Ext=PDF WV-Wabwpaevjjzsbn-Nijaxuzn Work Phone: [phone] sinus yzqjobBD-Pltawixovrmhrm-Uliehyag Work Phone: [phone]-Eraxzcupxezsbo-[place] Work Phone: [phone] 2CH-Kstddcghnqqbjz-Bojkfcqd Work Phone: [phone] 9JQ-Msqnspvaoxkdty-Zxfbjtoe Work Phone: [phone] 4QQ-Tpuilvceewvzcv-Xyibsjng Work Phone: [phone] 4ZE-Sgdtquzwuwbizt-Okfftakx Work Phone: [phone] 6QJ-Gmpknpqafdfytz-Eyknnude Work Phone: [phone] 5IN-Otomjppgtbbdvw-Odwxxblp Work Phone: [phone] 9HQ-Sgiweatoetfmko-Sokrglzx Work Phone: [phone] 2UQ-Eudyfwzmvhkrlb-Zwkqgbha Work Phone: [phone] 6KK-Dalkhhxexleixs-Gkpftyis Work Phone: [phone] 0PE-Nqstsaltbaldzk-Jebffmbh Work Phone: [phone] 3GA-Aprfuvyuajtavg-Jvawbxpz Work Phone: [phone] 3TO-Qwzednhugizues-Ottrkfzm Work Phone: [phone] 5ZQ-Itnamulkfkrevl-Wrfdbixs Work Phone: [phone] 4XG-Fvuxhhbkrljlls-Ametwtqo Work Phone: PT/INRon [phone] TIMECanceledNormalSt. Greene County HospitalComment on above:Order Comment: TEST PT/INR WAS CANCELLED, 07/07/2021 12:20 SPECIMEN CLOTTED.PLEASE RESUBMITDUPLICATE ORDER.Performed By: #### PTINR #### [address] [place], [place] [address]BJ, INRCanceledNormalSt. Greene County HospitalComment on above: Order Comment: TEST PT/INR WAS CANCELLED, 07/07/2021 12:20 SPECIMEN CLOTTED.PLEASE RESUBMITDUPLICATE ORDER.Performed By: #### PTINR #### [address] 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 Outside images were requested and reviewed. 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 Once her outside records were available for review we went over everything in detail. She does havesubsternal extension on the left however this can likely be accessed without sternotomy. The ultrasound report backwards in terms of the size of the nodule as it reports a larger nodule on the right-hand side. Biopsy was labeled as left benign follicular nodule. We discussed some of the Limitationsof FNA with larger nodules. Considering the tracheal deviation and large size of the nodule we discussed surgical options which could include hemithyroidectomy or total thyroidectomy. We discussed the pros and cons of each. At this time she wants to proceed with hemithyroidectomy. We will arrange for an in person visit and preadmission testing Chief Complaint Goiter, thyroid nodule History of Present Djbmgeo64-dmcq-oxs female referred by Dr. Christian for evaluation [...] MD; Jun 13 2021 4:51AM EST (Author) [facility] TouchworksNo Panel Informationon 66-26-6857UP-Otolaryngology-[place] Work Phone: [facility] Surgical Pathology Departmenton [id number] Surgical Pathology DepartmentName LAURO PINTO Pathologist: MIGUEL GAMBLE MD Date of Procedure: 04/28/2021 Date Received: 04/28/2021 Date Reported 04/29/2021 Submitting Physician: EDY DOMINGUEZ MD Location: [facility] Other External # FINAL DIAGNOSIS A. [facility] [id number] (11/14/2020): LEFT THYROID FINE NEEDLE ASPIRATE: --BENIGN FOLLICULAR NODULAR (NODULAR HYPERPLASIA). Electronically Signed Out By MIGUEL GAMBLE MD/[facility] By the signature on this report, the individual or group listed as making the Final Interpretation/Diagnosis certifies that they have reviewed this case. Clinical History: FNA thyroid nodule Specimens Submitted As: A: [facility] [id number] (11/14/2020) Slide/Block Description Received from [employer], [address] [place] [address], are thirteen (13) slides labeled [id number] Keep Slides: N Slides Returned: N Personal Consult: 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 Outside images were requested and reviewed. 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 Once her outside records were available for review we went over everything in detail. She does havesubsternal extension on the left however this can likely be accessed without sternotomy. The ultrasound report backwards in terms of the size of the nodule as it reports a larger nodule on the right-hand side. Biopsy was labeled as left benign follicular nodule. We discussed some of the Limitationsof FNA with larger nodules. Considering the tracheal [...] Complaint Goiter, thyroid nodule History of Present Qzmbkxb51-phxz-wir female referred by Dr. Christian for evaluation [...] DAILY Vitals Vital Signs Recorded: 07Apr2021 02:27PM Ufthtdcwgme45.2 F Ukrjykud758 Cwirtmrbz35 Height6 ft 1 in Xclhmd139 lb BMI Bbyhcuiyvl61.33 kg/m2 BSA Calculated2.68 Tobacco Useb) No Fall [...] membranes, normal floor of mouth/tongue/OP, no masses orlesions are noted. PHARYNGEAL UMANZOR: No masses noted. Mucosa appears clean and moist NECK/LYMPH: No LAD, palpable left-sided goiter. Trachea palpably midline SKIN: Neck skin is without scar or injury PSYCH: Alert and oriented with appropriate mood and affect 'Scores and Scales' Signatures Electronically signed by : Edy Dominguez MD; May 04 2021 2:13PM EST (Author) Normal TouchworksTobacco Screening.on 77-10-1913Ucbx risk assessmenta) No falls within the last pouvFK-Awkuqfaqqwwbcd-Xwemvhms Work Phone: Tobacco use status CPHSb) IsQH-Pemoygadbqkmai-Lwjgtqre Work Phone: cTA CHEST WO W CONon 22-72-0068BZT CHEST WO W CON EXAMINATION: CTA CHEST WO W CON HISTORY: SHORTNESS OF BREATH [...] Electronically authenticated by: AMBREEN ZENDEJAS Date: 2020-08-28 22:10Norm[facility] AUTO DIFFon 25-28-4126Oevlvnueh (Bld) [#/Vol]0.0 103/ul Normal0.0-0.1Aultman HospitalComment on above:Performed By: #### CBC #### [facility] [address] [place], [place] [address] Aminata KarenBasophils/100 WBC (Bld)0.3 %Normal0.2-2.0The [facility] Comment on above:Performed By: #### CBC #### [facility] [address] [place], [place] [address] Aminata KarenEosinophils (Bld) [#/Vol]0.0 103/ulNormal0.0-0.7The [facility] HospitalComment on above:Performed By: #### CBC #### [facility] [address] [place], [place] [address] Aminata KarenEosinophils/100 WBC (Bld)0.2 %Critically low0.9-7.0The [facility] HospitalComment on above:Performed By: #### CBC #### [facility] [address] [place], [place] [address] Aminata KarenErythrocyte distribution width (RBC) [Ratio]13.6 %Rzsgqz50.0-15.0The [facility] HospitalComment on above:Performed By: #### CBC #### [facility] [address] [place] [address] Aminata KarenHematocrit (Bld) [Volume fraction]39.9 %Ydiqqx51.0-48.0The [facility] HospitalComment on above:Performed By: #### CBC #### [facility] [address] [place] [address] Aminata KarenHemoglobin (Bld) [Mass/Vol]12.5 g/hXWbkikd95.0-16.0The [facility] HospitalComment on above:Performed By: #### CBC #### [facility] [address] [place] [address] Aminata KarenIG #0.02 10e3/ulNormal0.00-0.03The [facility] HospitalComment on above:Performed By: #### CBC #### [facility] [address] [place] [address] Aminata KarenIG %0.2 %Normal0.0-0.5The [facility] HospitalComment on above: Performed By: #### CBC #### [facility] [address] [place] [address] Aminata KarenLymphocytes (Bld) [#/Vol]2.3 103/ulNormal1.2-3.8The [facility] HospitalComment on above:Performed By: #### CBC #### [facility] [address] [place] [address] Aminata KarenLymphocytes/100 WBC (Bld)20.1 %Critically low20.5-60.0The [facility] HospitalComment on above:Performed By: #### CBC #### [facility] [address] [place] [address] Aminata KarenMANUAL DIFF REQNONormalThe [facility] HospitalComment on above: Performed By: #### CBC #### [facility] [address] [place] [address] Aminata KarenMCH (RBC) [Entitic mass]27.0 kjFufinz73.7-34.0The [facility] Comment on above:Performed By: #### CBC #### [facility] [address] [place] [address] Aminata KarenMCHC (RBC) [Mass/Vol]31.3 g/rLIjqhhh17.9-35.2The [facility] Comment on above:Performed By: #### CBC #### [facility] [address] [place] [address] Aminata KarenMCV (RBC) [Entitic vol]86.2 jHLukfki87.0-99.0The [facility] Comment on above:Performed By: #### CBC #### [facility] [address] [place] [address] Aminata KarenMonocytes (Bld) [#/Vol]0.5 103/ulNormal0.3-0.8The [facility] Comment on above:Performed By: #### CBC #### [facility] [address] [place] [address] Aminata KarenMonocytes/100 WBC (Bld)4.5 %Normal1.7-12.0The [facility] Comment on above:Performed By: #### CBC #### [facility] [address] [place] [address] Aminata KarenNeutrophils (Bld) [#/Vol]8.4 103/ulCritically high1.4-6.5The [facility] HospitalComment on above:Performed By: #### CBC #### [facility] [address] [place] [address] Aminata KarenNeutrophils/100 WBC (Bld)74.7 %Durowv09.0-75.0The [facility] Comment on above:Performed By: #### CBC #### [facility] [address] [place] [address] Aminata KarenPlatelet mean volume (Bld) [Entitic vol]10.6 fLNormal9.5-13.5The [facility] HospitalComment on above:Performed By: #### CBC #### [facility] [address] [place] [address] Aminata KarenPlatelets (Bld) [#/Vol]293 103/lfJmlxnh405-270Ynn [facility] Comment on above:Performed By: #### CBC #### [facility] [address] [place] [address] Aminata KarenRBC (Bld) [#/Vol]4.63 106/ulNormal4.20-5.40The [facility] Comment on above:Performed By: #### CBC #### [facility] [address] [place] [address] Aminata KarenWBC (Bld) [#/Vol]11.2 103/ulCritically high4.0-11.0[facility] HospitalComment on above:Performed By: #### CBC #### [facility] [address] [place] [address] Aminata KarenCULTURE URINEon 08-86-1686NEVBZDU URINECulture Observations: NORMAL GENITAL FRANK. NO POTENTIAL PATHOGENS SEENProtestant Hospital Comment on above:Performed By: #### URCX #### [facility] [address] [place] [address] Aminata KarenER URINE PROFILEon 94-42-4718Ethixuhtu [Mass/Vol]NegativeNormal NEGATIVEAultman HospitalComment on above:Performed By: #### JOEY MADRIGAL #### [facility] [address] [place] [address] Aminata KarenBLOODTRACE-INTACTAbnormalNEGATIVEThe [facility] HospitalComment on above:Performed By: #### JOEY MADRIGAL #### [facility] [address] [place] [address] Aminata KarenClarity (U)CLEARNormalCLEARThe [facility] HospitalComment on above: Performed By: #### JOEY MADRIGAL #### [facility] [address] [place] [address] Aminata KarenColor (U)LT. YELLOWNormalYELLOWThe [facility] HospitalComment on above:Performed By: #### JOEY MADRIGAL #### [facility] [address] [place] [address] Aminata KarenERUAHDA micrscopic examination will be performed if indicated.Normal The [facility] HospitalComment on above:Performed By: #### GIULIANO MADRIGALR #### [facility] [address] [place] [address] Aminata KarenGlucose [Mass/Vol]NegativeNormalNEGATIVEThe [facility] HospitalComment on above:Performed By: #### GIULIANO MADRIGALR #### [facility] [address] [place] [address] Aminata KarenKetones Ql (U)NegativeNormalNEGATIVEAultman HospitalComment on above:Performed By: #### GIULIANO MADRIGALR #### [facility] [address] [place] [address] Aminata KarenNitrite Ql (U)NegativeNormalNEGATIVEThe [facility] HospitalComment on above:Performed By: #### GIULIANO MADRIGALR #### [facility] [address] [place] [address] Aminata KarenpH (Bld)7.0Obhblt1-3BipAultman HospitalComment on above:Performed By: #### GIULIANO MADRIGALR #### [facility] [address] [place] [address] Aminata KarenProtein (U) [Mass/Vol]NegativeNormalNEGATIVE/ TRACEThe [facility] HospitalComment on above:Performed By: #### GIULIANO MADRIGALR #### [facility] [address] [place] [address] Aminata KarenSPEC GRAVITY1.643Ohfchc0.005-<=1.025The [facility] HospitalComment on above:Performed By: #### JOEY MADRIGAL #### [facility] [address] [place] [address] Aminata KarenUR MICRO INDINDICATEDNormalThe [facility] HospitalComment on above: Performed By: #### JOEY MADRIGAL #### [facility] [address] [place] [address] Aminata KarenUrobilinogen Qn (U)0.2 EU/dlNormal0.2 - 1.0[facility] Comment on above:Performed By: #### JOEY MADRIGAL #### [facility] [address] [place] [address] Aminata KarenWBC (Bld) [#/Vol]SMALLAbnormalNEGATIVEAultman HospitalComment on above:Performed By: #### JOEY MADRIGAL #### [facility] [address] [place] [address] Aminata KarenPREG HCG QUALon 23-67-7016PQSBYXURA, QUALNegativeNormalNEGATIVEThe [facility] HospitalComment on above:Performed By: #### CBC #### [facility] [address] [place] [address] Aminata KarenPROF 14(COMP METB)on 89-54-8403Icvyodz [Mass/Vol]3.7 g/dLNormal 3.5-5.0[facility] HospitalComment on above:Performed By: #### HSTROPN, TSH, CMP #### [facility] [address] [place] [address] Aminata KarenAlbumin/Globulin [Mass ratio]1.0 {ratio}NormalAultman Hospital Comment on above:Performed By: #### HSTROPN, TSH, CMP #### [facility] [address] [place] [address] Aminata KarenALP [Catalytic activity/Vol]88 U/BVngcze12-462CvwAultman Hospital Comment on above:Performed By: #### HSTROPN, TSH, CMP #### [facility] [address] [place] [address] Aminata KarenALT [Catalytic activity/Vol]13 U/LNormal9-52[facility] Comment on above:Performed By: #### HSTROPN, TSH, CMP #### [facility] [address] [place] [address] Aminata KarenAnion gap [Moles/Vol]14.5 mmol/LNormalThe [facility] HospitalComment on above:Performed By: #### ESTEETROPN, TSH, CMP #### [facility] [address] [place] [address] Aminata KarenAST [Catalytic activity/Vol]16 U/GBbrqwm23-54Txl [facility] Comment on above:Performed By: #### ESTEETROPN TSH, CMP #### [facility] [address] [place] [address] Aminata KarenBilirubin Ql (U)0.7 mg/dLNormal0.2-1.3The [facility] HospitalComment on above:Performed By: #### SORAIDA TSH, CMP #### [facility] [address] [place] [address] Aminata KarenCalcium [Mass/Vol]8.8 mg/dLNormal8.4-10.2[facility] Comment on above:Performed By: #### ESTEETRLESLEE TSH, CMP #### [facility] [address] [place] [address] Aminata KarenChloride [Moles/Vol]106 mmol/LKonydt92-236OzaAultman Hospital Comment on above:Performed By: #### ESTEETRLESLEE TSH, CMP #### [facility] [address] [place] [address] Aminata KarenCO2 [Moles/Vol]24.3 mmol/CWlriew69.0-30.0[facility] Comment on above:Performed By: #### HSTROPN TSH, CMP #### [facility] [address] [place] [address] Aminata KarenCreatinine [Mass/Vol]0.96 mg/dLNormal0.52-1.04[facility] Comment on above:Performed By: #### ESTEETROPN TSH, CMP #### [facility] [address] [place] [address] Aminata KarenEGFR-AF HUNGARIAN>60Normal>=60The [facility] HospitalComment on above: Performed By: #### HSTROPN, TSH, CMP #### [facility] [address] [place] [address] Aminata KarenEGFR-NON AF HUNGARIAN>60Normal>=60The [facility] HospitalComment on above:Performed By: #### SALOMON QUIGLEY, CMP #### [facility] [address] [place] [address] Aminata KarenGlobulin (S) [Mass/Vol]3.8 g/dLNormalThe [facility] HospitalComment on above:Performed By: #### SALOMON QUIGLEY, CMP #### [facility] [address] [address] Aminata KarenGlucose [Mass/Vol]141 mg/dLCritically pxag50-269Yiz [facility] HospitalComment on above:Performed By: #### SALOMON QUIGLEY, CMP #### [facility] [address] [place] [address] Aminata KarenPotassium [Moles/Vol]3.8 mmol/LNormal3.4-5.0The [facility] Comment on above:Performed By: #### SORAIDA TSH, CMP #### [facility] [address] [address] Aminata KarenProtein [Mass/Vol]7.5 g/dLNormal6.1-8.2The [facility] HospitalComment on above:Performed By: #### SORAIDA TSH, CMP #### [facility] [address] [address] Aminata KarenSodium [Moles/Vol]141 mmol/TRlqihf332-765Jgg [facility] Comment on above:Performed By: #### ESTEETRLESLEE TSH, CMP #### [facility] [address] [place] [address] Aminata KarenUrea nitrogen [Mass/Vol]10.0 mg/dLNormal7.0-17.0The [facility] HospitalComment on above:Performed By: #### ESTEETRCHERYLN TSH, CMP #### [facility] [address] [address] Amniata KarenUrea nitrogen/Creatinine [Mass ratio]10.4 mg/mgNoOhio State Health Systemment on above:Performed By: #### HSTROPN, TSH, CMP #### [facility] [address] [place] [address] Aminata GautamPROTIMEon 76-81-0691TMY Coag (PPP) [Relative time]1.00 {INR}Normal [facility] on above:Performed By: #### PT, PTT #### [facility] [address] [place] [address] Aminata KarenPT Coag (PPP) [Time]SEE BELOWNoOhio State Health Systemment on above:Result Comment: DESIRED INR: 2.0 - 3.0 CONDITIONS NOT LISTED BELOW 2.5 - 3.5 FOR PROSTHETIC HEART VALVE REPLACEMENT 2.5 - 3.5 RECURRENT THROMBOSIS Performed By: #### PT, PTT #### [facility] [address] [place] [address] Aminata KarenPT Coag (PPP) [Time]10.9 sNormal9.0-11.6The [facility] Centerment on above:Performed By: #### PT, PTT #### [facility] [address] [place] [address] Aminata GautamPTTon 96-96-2025aEHG Coag (Bld) [Time]23.9 pYszmuc73.3-36.2The [facility] on above:Performed By: #### PT, PTT #### [facility] [address] [place] [address] Aminata BaileyenTROPONIN, HIGH SENSITIVITYon 64-40-6364ASFGRR<4.2Gipcwz8.0-35.5The [facility] on above:Result Comment: CUT-OFF POINTS HAVE BEEN ESTABLISHED BASED ON THE FOURTH UNIVERSAL DEFINITIONS OF MYOCARDIAL INFARCTION. THE UPPER REFERENCE LIMIT (URL) OF TROPONIN, DEFINED THE 99TH PERCENTILE OF cTnI DISTRIBUTION IN A REFERENCE POPULATION, HAS BEEN CONFIRMED THE DECISION THRESHOLD FOR [place] DIAGNOSIS. 90TH PERCENTILE (T=8508)= 35.6 - 109.2 PG/ML 99TH PERCENTILE = 51.4 PG/ML NOTE: HIGH-SENSITIVITY TROPONIN ASSAY IS NOT INTENDED TO BE USED IN ISOLATION BUT SHOULD BE INTERPRETED IN CONJUNCTION WITH OTHER DIAGNOSTIC AND CLINICAL INFORMATION.Performed By: #### ESTEETRLESLEE TSH, CMP #### [facility] [address] [place] [address] Aminata BaileyenTSHon 86-57-9986BMH Qn2.034 uIU/mLNormal0.470-4.680The [facility]Com[facility] on above:Performed By: #### SORAIDA TSH, CMP #### [facility] [address] [place] [address] QnSEE BELOWProtestant HospitalComment on above:Result Comment: <0.34 UIU/ml HYPERTHYROID 0.34-5.60 UIU/ml EUTHYROID >5.60 UIU/ml HYPOTHYROIDPerformed By: #### SORAIDA TSH, CMP #### [facility] [address] [place] [address] Aminata aBileyenURINE MICROSCOPIC ONLYon 40-74-3861Ojgpothj LM.HPF (Urine sed) [#/Area]NONE SEENNormalNONE SEENAultman HospitalComforest health medical center on above:Performed By: #### KAITLIN ERUR #### [facility] [address] [place] [address] Aminata KarenCASTSEENAbnormalNONE SEENOhio State University [facility] on above: Performed By: #### KAITLIN ERUR #### [facility] [address] [place] [address] Aminata KarenCrystals LM Nom (Urine sed)NONE SEENNormalNONE SEENAultman HospitalComforest health medical center on above:Performed By: #### KAITLIN ERUR #### [facility] [address] [place] [address] Aminata KarenCULTUREINDKettering Health Behavioral Medical CenterComforest health medical center on above: Performed By: #### KAITLIN ERUR #### [facility] [address] [place] [address] Aminata KarenEpithelial cells LM.HPF (Urine sed) [#/Area]FEWAbnormalNONE SEEN /RAREThe [facility] Medical Centerment on above:Performed By: #### KAITLIN, ERUR #### [facility] [address] [place] [address] Aminata BaileyenHYALINE CASTRARENormalAultman HospitalComforest health medical center on above: Performed By: #### KAITLIN, ERUR #### [facility] [address] [place] [address] Aminata BaileyenMUCOUSNONE SEENNormalNONE SEENOhio State University [facility] Medical Center on above: Performed By: #### KAITLIN, ERUR #### [facility] [address] [place] [address] Aminata KarenRBC (U) [#/Vol]1-2Neuhjmjl2-3CedOhio State University Wexner Medical Center on above: Performed By: #### KAITLIN, ERUR #### [facility] [address] [place] [address] Aminata BaileyenWBC (Bld) [#/Vol]5-10AbnormalNONE SEENWright-Patterson Medical Centerment on above:Performed By: #### KAITLIN, ERUR #### [facility] [address] [place] [address] Aminata KarenOPERATIVE REPORTon 41-37-3041IFRLCDGQP REPORTName: LAURO PINTOMR: [id number]: MORIS MITTAL D.P.M.DATE OF SURGERY: 02/24/2017ANESTHESIA: General.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 The leg was then dressed [facility] [place]URO [id number] [address] [id number] DR: Moris Mittal, DOPERATIVE REPORTwith sterile gauze, Rojas, Kerlix, and an William bandage. The patient toleratedthe procedure and anesthesia well in apparent satisfactory condition, wastransferred to the PACU. All vital signs were stable and vascular statusintact to her digits.COMPLICATIONS: None.PATHOLOGICAL SPECIMENS: External fixator, right leg. RADHA KNOX/Zuleyka/[id number]: 03/16/2017 10:56:16 E/S: Moris Mittal DPM03/25/17 1448Signature on File _[facility] [place] [id number] [address] [address] [id number] DR: CATALINO KnoxERATIVE REPORTNormalSaint [facility] Vital Signs Date TimeVital SignValuePerforming DidbvqredTwohvipn15-64-5248 13:10-0400Body .4 cmMatthew Justa PA Work Phone: [facility]10-02-2025 13:10-0400Body mass index (BMI) [Ratio]39.58 kg/m1Cjdlkce Nienberg PA Work Phone: [facility] Yxlfcn61-56-3959 13:10-0400Body nufcwg831.08 kgMatthew Nienberg PA Work Phone: [facility] Gowlps07-13-1486 13:10-0400Diastolic blood mm[Hg]Kyler Carvajal PA Work Phone: [facility] Ytvnan94-03-5543 13:10-0400Heart rate 92 /minMatthew Nienberg PA Work Phone: [facility] Nktigv86-00-5244 13:10-0400 Respiratory rate18 /minMatthew Nienberg PA Work Phone: [facility] Hrperz57-08-2825 13:10-1819WaP9% (BldA) [Mass fraction]100 %Kyler Carvajal PA Work Phone: [facility] [address] Llzyiv79-87-1347 13:10-0400Systolic blood kwyefzhw681 mm[Hg]Kyler Carvajal PA Work Phone: [facility] Unkrwv95-15-8579 14:22-0400Body mass index (BMI) [Ratio]40.24 kg/t9Bgfdx Lauren DO Work Phone: 1(394)768-[address] [place], [place] [address]Szkmykxcbg77-81-1218 14:22-0400Body ykibio220.35 kgCorey Lauren DO Work Phone: [phone] [place], [place] [address]Sctmdphjwm51-85-2901 14:22-0400Diastolic blood snetqxnh47 mm[Hg]Jorge Lauren DO Work Phone: 1(307)862-[address] [place], [place] [address]Libgxugsct14-73-3790 14:22-0400Systolic blood mm[Hg]Jorge Lauren DO Work Phone: 1(568)[facility] [place], [place] [address]Xafluupaoh04-43-2903 14:11-0400Body mass index (BMI) [Ratio]39.86 kg/j7Gdsjc Lauren DO Work Phone: 1(035)019-[address] [place], [place] [address]Vcdrskpcmh18-96-4617 14:11-0400Body shlsei783.04 kgCorey Lauren DO Work Phone: 1(257)812-[address] [place], [place] [address]Kgplodtrhq62-26-6128 14:11-0400Diastolic blood rzsaidfk95 mm[Hg]Jorge Lauren DO Work Phone: 1(500)260-[address] [place], [place] [address]Vuohkbkaxe54-61-8038 14:11-0400Systolic blood kzjovjmp761 mm[Hg]Jorge Lauren DO Work Phone: 1(938)489-[address] [place], [place] [address]Zgfqzvuzyk36-44-9238 13:08-0400Body uawggn073.4 cmMatthew Nitima PA Work Phone: [facility]06-26-2025 13:08-0400Body mass index (BMI) [Ratio]39.71 kg/m6Uelriqg Nitima PA Work Phone: [facility]06-26-2025 13:08-0400Body hnbwgo804.53 kgMatthew Nitima PA Work Phone: [facility]06-26-2025 13:08-0400Diastolic blood hoyddyaw45 mm[Hg]Kyler FRANCO Work Phone: [facility]06-26-2025 13:08-0400Heart rate 70 /minMatthew Justa PA Work Phone: [facility]06-26-2025 13:08-0400 Respiratory rate16 /minMatthew Justa PA Work Phone: [facility]06-26-2025 13:08-9563WkX4% (BldA) [Mass fraction]96 %Kyler FRANCO Work Phone: [facility]06-26-2025 13:08-0400Systolic blood usfhbihb285 mm[Hg]Kyler FRANCO Work Phone: [facility]06-25-2025 13:15-0400Body olthkg595.4 Matthew Stephens MD Work Phone: [phone])669-[address] [place], [place] [address]Ixuymefopy96-08-7081 13:15-0400Body mass index (BMI) [Ratio]40.11 kg/w8GqpnrThi Stephens MD Work Phone: 1(747)004-[address] [place], [place] [address]Wkzsaqljxt22-01-7940 13:15-0400Body eglcwk445.89 kgThi Stephens MD Work Phone: [phone])[address]06-25-2025 13:15-0400Heart rate73 /min Thi Stephens MD Work Phone: 1(156)894-[address] [place], [place] [address]Uoqjqbwjje33-24-2745 13:15-0400Respiratory rate16 /minThi Stephens MD Work Phone: [phone] [place], [place] [address]Omqngsyhqc37-05-2755 13:15-6683VsH9% (BldA) [Mass fraction]99 %Thi Stephens MD Work Phone: 1(454)203-[address] [place], [place] [address]Zysqgbhbxg52-59-1262 09:00-0400Body lfxwmu693.4 cmMatressa Carvajal PA Work Phone: [facility]03-27-2025 09:00-0400Body mass index (BMI) [Ratio]39.98 kg/o2OynekklKyler Carvajal PA Work Phone: [facility]03-27-2025 09:00-0400Body qhiyqm323.44 kgMatthew Nitima PA Work Phone: [facility]03-27-2025 09:00-0400Diastolic blood dskiybay15 mm[Hg]Kyler Carvajal PA Work Phone: [facility]03-27-2025 09:00-0400Heart rate 82 /minMatthew Nienberg PA Work Phone: [facility]03-27-2025 09:00-0400 Respiratory rate18 /minMatthew Nienberg PA Work Phone: [facility]03-27-2025 09:00-5611DzH6% (BldA) [Mass fraction]99 %Kyler Carvajal PA Work Phone: [facility]03-27-2025 09:00-0400Systolic blood ejecvfdr441 mm[Hg]Kyler Carvajal PA Work Phone: [facility]02-26-2025 13:03-0500Body mass index (BMI) [Ratio]39.46 kg/r2Duufv Lauren DO Work Phone: [facility] HospitalLdcexgqksu63-80-9342 13:03-0500Body .68 kgCorey Lauren DO Work Phone: [facility] HospitalMgswgejudr18-81-3926 13:03-0500Diastolic blood itzytzyl21 mm[Hg]Jorge Lauren DO Work Phone: [facility] HospitalTvizgdgxox98-62-4103 13:03-0500Systolic blood uzttqdou639 mm[Hg]Jorge Lauren DO Work Phone: [facility] HospitalCncevanuho29-18-4242 13:57-0500Body gwwdyd329.9 cmMatthew Nienberg PA Work Phone: [facility]02-20-2025 13:57-0500Body mass index (BMI) [Ratio]40.96 kg/x3Wpcwvax Nienberg PA Work Phone: [facility]02-20-2025 13:57-0500Body qoryga636.99 kgMattmarina Hongenberg PA Work Phone: [facility]02-20-2025 13:57-0500Diastolic blood gffshmar02 mm[Hg]Kyler Carvajal PA Work Phone: [facility]02-20-2025 13:57-0500Heart rate 71 /minMatthew Nienberg PA Work Phone: [facility]02-20-2025 13:57-0500 Respiratory rate18 /minMatthew Nienberg PA Work Phone: [facility]02-20-2025 13:57-0838UrW3% (BldA) [Mass fraction]100 %Kyler Carvajal PA Work Phone: [facility]02-20-2025 13:57-0500Systolic blood zjkulrep811 mm[Hg]Kyler Carvajal PA Work Phone: [facility]01-14-2025 13:21-0500Body kxhigh894.4 cmCorey Lauren DO Work Phone: [facility] HospitalGzljsdlanw29-39-3843 13:21-0500Body mass index (BMI) [Ratio]38.37 kg/b0Qehhr Lauren DO Work Phone: [facility] HospitalQrooxvthzr88-83-9284 13:21-0500Body .91 kgCorey Lauren DO Work Phone: [facility] HospitalVvdpcjfpmn89-63-8349 13:21-0500Diastolic blood ngesxlqp01 mm[Hg]Jorge Lauren DO Work Phone: [facility] HospitalMaijpuxxjj80-37-2560 13:21-0500Systolic blood auiywlco366 mm[Hg]Jorge Lauren DO Work Phone: [facility] HospitalVytgeibcvl48-19-1336 14:37-0500Body auzpjv545.4 cmMatthew Nienberg PA Work Phone: [facility] [address] Ngksms08-80-9408 14:37-0500Body mass index (BMI) [Ratio]38.39 kg/o5Dcdwwav Nienberg PA Work Phone: [facility] [address] Depcxb30-86-9298 14:37-0500Body xvmmho390 kgMatthew Nienberg PA Work Phone: [facility] [address] Fjpzyg39-41-2790 14:37-0500Diastolic blood mm[Hg]Kyler Hongenberg PA Work Phone: [facility] [address] Zgdqyd04-51-0144 14:37-0500Heart rate 80 /minMatthew Nienberg PA Work Phone: [facility] [address] Vemtxa06-91-7073 14:37-0500 Respiratory rate16 /minMatthew Nienberg PA Work Phone: [facility] [address] Evpuec08-17-7120 14:37-5151WiI4% (BldA) [Mass fraction]100 %Kyler Nienberg PA Work Phone: [facility] [address] Vpghsh58-28-1721 14:37-0500Systolic blood ealntege861 mm[Hg]Kyler Hongenberg PA Work Phone: [facility] [address] Gqnsqe40-33-5167 11:25-0400Body afkqkp735.4 cmMatthew Nienberg PA Work Phone: [facility] [address] Aejlaf88-39-7773 11:25-0400Body mass index (BMI) [Ratio]38.26 kg/o3Nsrkgxx Nienberg PA Work Phone: [facility] [address] Urxcqd73-07-2821 11:25-0400Body qefeol750.54 kgMatthew Nienberg PA Work Phone: [facility] [address] Imcyub55-53-2926 11:25-0400Diastolic blood oirifwen28 mm[Hg]Kyler Gelyenberg PA Work Phone: [facility] [address] Jdhfav07-67-2630 11:25-0400Heart rate 71 /minMatthew Justa PA Work Phone: [facility]09-12-2024 11:25-0400 Respiratory rate20 /minMatthew Justa PA Work Phone: [facility]09-12-2024 11:25-0400Systolic blood elyrnycc164 mm[Hg]Kyler Carvajal PA Work Phone: [facility]04-15-2022 16:25-0400Body qtphjo206.42 cmCharles P House Work Phone: 1(951) [phone]-Ymvtegkslxlspe-[employer] Work Phone: 1(334) 776-757004-15-2022 16:25-0400Body mass index (BMI) [Ratio] 45.33 kg/c0Xcvcbrm P House Work Phone: 1(616) [phone]-Zojzfxonyrsdxh-[place] Work Phone: 1(245) 757-857604-15-2022 16:25-0400Body surface area Derived from formula2.71 r3Glezvky P House Work Phone: 1(246) [phone]-Jxrrsyilpztzjn-[place] Work Phone: 1(930) 929-817604-15-2022 16:25-0400Body fvkuxsmbkot51.8 [degF] Toney P House Work Phone: [phone]-Xftlcolioiprrn-[place] Work Phone: 1(354) 703-574804-15-2022 16:25-0400Body blotli335.86 kgCharles P House Work Phone: 1(158) [phone]-Lbveslkxzhvmzu-[place] Work Phone: 1(272) 784-978202-21-2022 09:32-0500Body dsaenj066.42 cmNo PCP None LR-Iuabnorxwlmryt-Qwntixqm [address] Work Phone: 1(293) 122-455402-21-2022 09:32-0500Body mass index (BMI) [Ratio] 45.25 kg/m2No PCP PkpyQE-Avhyuyhctdzyzi-Lpadupca [address] Work Phone: 1(136) 129-265802-21-2022 09:32-0500Body surface area Derived from formula2.71 m2No PCP EynwXV-Kffmscjpmodyfv-Budojfbo [address] Work Phone: 1(698) 469-545502-21-2022 09:32-0500Body pplhxsenfqn41.9 [degF]No PCP AqcwJB-Tbyifmvnqkzalb-Vsadkkqc [address] Work Phone: 1(466) 254-110702-21-2022 09:32-0500Body arfexz001.58 kgNo PCP None BB-Vjsuoztcgnbwxb-Ghvelptx [address] Work Phone: 1(115) 948-133002-21-2022 09:32-0500Diastolic blood abdvsmms31 mm[Hg] No PCP FzwlYG-Rdfodwrnmozozt-Sjhyyfwx [facility] [address] Work Phone: 1(675) 102-299602-21-2022 09:32-0500Systolic blood rnzgqxum814 mm[Hg] No PCP RqttIL-Pwauakdcdcrxra-Lmkqmatw [address] Work Phone: 1(737) 666-643102-21-2022 09:32-47325 1No PCP None HN-Nclrkockkysymg-Iwutiedq [address] Work Phone: Comment on above:VsnaNwxhi63-64-0002 12:45-0500Body ibylub697.42 Siva [address] Other [employer] Other 12-11-2021 12:45-0500Body mass index (BMI) [Ratio] 41.55 kg/t2TslmffMelody Brandon Other [employer] Other 12-11-2021 12:45-0500Body iaojlwqunjn16.6 [degF]Melody [address] Other [employer] Other 12-11-2021 12:45-0500Body ykooto256.88 kgMelody Brandon Other [employer] Other 12-11-2021 12:45-0500Respiratory rate18 /minMelody Brandon Other [employer] Other 12-11-2021 12:45-3483VnZ4% (BldA) [Mass fraction]98 % Melody [address] Other [employer] Other 11-15-2021 14:48-0500Body fjuyds729.42 cmNo PCP None PH-Qdkwyqkgduarla-Jjwplsyn Work Phone: 1(745) 154-393611-15-2021 14:48-0500Body mass index (BMI) [Ratio] 44.59 kg/m2No PCP BomkXF-Tbumqiuuuxwthq-Tzmchjkj Work Phone: 1(821) 367-865711-15-2021 14:48-0500Body surface area Derived from formula2.69 m2No PCP KszqQO-Wqlrpyaergocyx-Klipevis Work Phone: 1(814) 725-819511-15-2021 14:48-0500Body ufhaadvmhod41.9 [degF]No PCP XjduSO-Rpqkmcgmgvvmtw-Jjoyttbl Work Phone: 1(681) 157-488711-15-2021 14:48-0500Body rkrjyn862.32 kgNo PCP None BN-Iqfatuqxsvoffo-Yagjlaja Work Phone: 1(647) 732-737211-15-2021 14:48-0500Diastolic blood eaxezbkf14 mm[Hg] No PCP QmmiAT-Dgzwknjurijpjz-Vbcfsdjw Work Phone: 1(407) 602-411311-15-2021 14:48-0500Systolic blood mm[Hg] No PCP KnggBJ-Meeeuldljqwope-Mepizrpx Work Phone: 1(240) 399-524911-15-2021 14:48-41451 1No PCP None MP-Tpjjyoxygwhiza-Wzhjvbfo Work Phone: comment on above:HqlaZcgvv31-76-0092 14:27-0400Body .42 cmNo PCP EvexBN-Aiwlosqijgsezh-Xuwnbhyv Work Phone: 1(479) 449-417408-02-2021 14:27-0400Body mass index (BMI) [Ratio] 44.33 kg/m2No PCP TujoQT-Tculbmsqvekkcn-Qkmowokv Work Phone: 1(346) 854-538408-02-2021 14:27-0400Body surface area Derived from formula2.68 m2No PCP EwmtSC-Vdxqttuvoqwvnf-Peslnund Work Phone: 1(392) 961-667608-02-2021 14:27-0400Body yvsbfnifxys50.2 [degF]No PCP BucuFU-Ctphtlspzzgixs-Naoplmfe Work Phone: 1(254) 538-503008-02-2021 14:27-0400Body qqtnqy664.41 kgNo PCP None QG-Afpgzpvxinedem-Zsrojofx Work Phone: 1(599) 344-314808-02-2021 14:27-0400Diastolic blood mm[Hg] No PCP TjueFM-Axpwvnaqsuzbuc-Msziahzi Work Phone: 1(279) 701-701908-02-2021 14:27-0400Systolic blood vzmyvrjb839 mm[Hg] No PCP JdosSZ-Uleoxmjhwxqwtb-Vqophpdp Work Phone: 1(572) 917-411908-02-2021 14:27-84420 1No PCP None IB-Scyuxoopzdpfpn-Nntnklfj Work Phone: comment on above:[employer] Encounters Encounter DateEncounter TypeCare ProviderFacilityStart: 06-19-2025 End: 18-25-2035hgptyzbsphXR CHARLES P HOUSEFacility:[facility] ClinicStart: 06-14-2025 End: 41-70-2964jhbrjhwigwCKDENDT P HOUSEFacility:[facility] ClinicStart: 06-14-2025 End: 68-82-1134Znklwzxjb Result EncounterCorey Lauren DO Work Phone: noms External Department UnsolicitedStart: 06-14-2025 End: 99-56-2266Ickselzcx Result EncounterCorey Lauren DO Work Phone: noms External Department UnsolicitedStart: 06-07-2025 End: 84-36-8547Stfokc outpatient visit [address] [place], [place] [address]tressa Carvajal PA Work Phone: [facility] - Pain Management ClinicComment on above:Lumbosacral spondylosis without myelopathy (Primary Dx) Start: 06-07-2025 End: 07-51-9545hvtpqhxxrwYWUALUOOur Lady of [facility] Hospital HospitalStart: 98-93-6146cwndoyrexkJI TONEY [facility]ENTERFacility:[facility] HospitalStart: 05-31-2025 End: 05-41-2415Tucdyxdso Result EncounterCorey Lauren DO Work Phone: noms External Department UnsolicitedStart: 05-31-2025 End: 29-85-9960Iilpouzrb Result EncounterCorey Lauren DO Work Phone: noms External Department UnsolicitedStart: 05-30-2025 End: 65-70-2477xgkzbyupqtEYGVGCO P [facility] HospitalStart: 05-29-2025 End: 95-71-3631Jgptdbxam Result EncounterCorey Lauren DO Work Phone: noms External Department UnsolicitedStart: 05-29-2025 End: 19-51-0318Oumfwqijb Result EncounterCorey Lauren DO Work Phone: noms External Department UnsolicitedStart: 05-29-2025 End: 58-85-9103Jhyaeno encounter procedureCorey Lauren DO Work Phone: [facility] [place] OBGYNComment on above:Pre-op examination; Menorrhagia with regular cycle; Pelvic pain; Dysmenorrhea; Dyspareunia in female; Well woman exam with routine gynecological exam; Breast cancer screening by mammogramStart: 05-29-2025 End: 12-19-4019Nzhuznxjhlpaq examination doneCorey Lauren DO Work Phone: NO HealthcareStart: 05-29-2025 End: 47-18-7319rztyehkdqjTCGNI FAZIONot AvailableStart: 62-86-3601Tvkqvhxev for general adult medical examination without abnormal findingsDO TONEY MONTOYA [facility] HospitalStart: 05-15-2025 End: 24-32-6707ympmpfcgklGA TONEY Melara HOUSEFacility:[facility] ClinicStart: 04-18-2025 End: 69-16-5587Olqgih flowsheetCorey Lauren DO Work Phone: N[facility] OBGYNStart: 04-18-2025 End: 54-53-6012Ggsuhg flowsheetCorey Lauren DO Work Phone: [facility] [place] [facility]BGYNStart: 04-18-2025 End: 89-16-4455Mzpogu outpatient visit 15 minutesCorey Lauren DO Work Phone: [facility] OBGYNComment on above:Dysfunctional uterine bleedingStart: 04-18-2025 End: 72-33-7311xkxddevvagWPXSQ FAZIONot AvailableStart: 04-12-2025 End: 17-58-5498wmhbsvqjjnPQLDFSA S [facility] HospitalStart: 03-30-2025 End: 31-53-7548noosqmubydBVNTTFX E [facility]ECESILIAAultman Hospital HospitalStart: 77-34-6871qwhlkeedlsLM TONEY Melara MUNROE FALLSFacility:[facility] ClinicStart: 03-01-2025 End: 02-62-2108Uxzncm outpatient visit 15 minutesMattmarina Carvajal SD Work Phone: [facility] - Pain Management ClinicComment on above:Disorder of sacrum (Primary Dx)Start: 03-01-2025 End: 23-06-6464nprcjpswioRNMDOKD S [facility] HospitalStart: 02-28-2025 End: 75-50-6604Viqoqv Zay Stephens MD Work Phone: [facility] ENDOCRINOLOGYStart: 02-28-2025 End: 54-35-0141Gfxust Zay Stephens MD Work Phone: [facility] ENDOCRINOLOGYStart: 02-28-2025 End: 32-30-4635Jskjfx outpatient visit 25 minutesThi Stephens MD Work Phone: [facility] ENDOCRINOLOGYComment on above:Postoperative hypothyroidism (Primary Dx); Papillary thyroid carcinoma (HCC); Vitamin D deficiency; Encounter for dietary consultation; Class 3 severe obesity due to excess calories without serious comorbidity with body mass index (BMI) of 40.0 to 44.9 in adult ([facility])Start: 02-28-2025 End: 30-11-0109wxzdykxyoqKSFXD F SABBAGHNot AvailableStart: 04-10-8590qofbcgpvrg DO TONEY Melara HOUSEFacility:[facility] ClinicStart: 11-30-2024 End: 99-17-7469Igycok outpatient visit 15 minutesKyler FRANCO Work Phone: [facility] - Pain Management ClinicComment on above:Lumbar spondylosis (Primary Dx)Start: 11-30-2024 End: 14-38-1670kiavjujxlpLRKCQBJ S NIENBERGAult[facility] HospitalStart: 11-17-2024 End: 46-22-0939kpqmpyhoioFPZAJJT E HOGANAultman Hospital HospitalStart: 11-10-2024 End: 39-23-1496ergncxjwqcEwfcw FazioFacility:[facility] Start: 11-10-2024 End: 96-23-7678Yyqvsidy Hunter Cole MD Work Phone: [facility] Ctr-LAB Path Spec [facility] HospStart: 11-03-2024 End: 82-67-7918Kkgffjnfu Result EncounterCorey Lauren DO Work Phone: noms External Department UnsolicitedStart: 11-03-2024 End: 79-09-5619Qoegcyxso Result EncounterCorey Lauren DO Work Phone: noms External Department UnsolicitedStart: 11-01-2024 End: 21-07-4902Mljnagq encounter procedureCorey Lauren DO Work Phone: noms BCP OBComment on above:Dysfunctional uterine bleeding; Pre-operative examStart: 11-01-2024 End: 89-17-7308Njidenoeguidr examination doneCorey Lauren DO Work Phone: noMS HealthcareStart: 11-01-2024 End: 78-39-3612smmquvgzhyZcquuLaurie Cole MD Work Phone: [facility] Work Phone: Start: 11-01-2024 End: 44-54-7668Hmfvqgmq ReferredSofiya Cole MD Work Phone: [facility]-LAB Path Spec [facility] HospStart: 10-26-2024 End: 32-44-7136Oqqhww outpatient visit 25 minutesKyler FRANCO Work Phone: [facility] - Pain Management ClinicComment on above:Disorder of sacrum (Primary Dx)Start: 10-26-2024 End: 81-97-7435jpauekxyroXGKTFRZ S NIENBERGAultman Hospital HospitalStart: 09-19-2024 End: 79-69-3633Cbjzrh flowsheetCorey Lauren DO Work Phone: noMS BCP OBStart: 09-19-2024 End: 21-36-8348Tevxum flowsheetCorey Lauren DO Work Phone: [facility] BCP OBStart: 09-19-2024 End: 00-12-3995Uufdnf outpatient new 20 minutesCorey Lauren DO Work Phone: noms BCP OBComment on above:Dysfunctional uterine bleeding; Iron deficiency anemia, unspecified iron deficiency anemia typeStart: 09-19-2024 End: 71-96-7211hvcpzcwhgtSLBDC Tundet AvailableStart: 09-11-2024 End: 63-59-9463Qqnafs Lupe FRANCO Work Phone: [phone]-VAUI ATLASComment on above:Postprocedural hypothyroidism; Malignant neoplasm of thyroid gland (CMS-HCC)Start: 09-11-2024 End: 77-31-6743xoidqgulcjXQFEZ F SABBAGHNot AvailableStart: 09-11-2024 End: 72-93-8995Gmxktp outpatient visit 25 minutesThi Stephens MD Work Phone: [facility] ENDOCRINOLOGYComment on above:Postoperative hypothyroidism (CMS/HCC) (Primary Dx); Papillary thyroid carcinoma (CMS/HCC); Vitamin D deficiency; Encounter for dietary consultation; Class 3 severe obesity due to excess calories without serious comorbidity with body mass index (BMI) of 40.0 to 44.9 in adult (CMS/HCC)Start: 09-07-2024 End: 72-83-5355Bjrzou outpatient visit 15 Shannon FRANCO Work Phone: [facility] - Pain Management ClinicComment on above:Lumbosacral spondylosis without myelopathy (Primary Dx) Start: 09-07-2024 End: 79-13-2308tczlcffipuWNFKWMK S [facility]BERGAultman Hospital HospitalStart: 08-14-2024 End: 41-98-5276whwhsvzlsfQIMRHUJ P [facility] HospitalStart: 08-11-2024 End: 79-32-0649bkyywactwbLFWQTYR E [facility] HospitalStart: 08-09-2024 End: 91-06-4106Swbzyttqs encounterIris Tyra [facility] - Pain Management ClinicStart: 08-07-2024 End: 28-83-4299mblglneojxCNWECSZ P HOUSEFacility:[facility] ClinicStart: 08-01-2024 End: 81-01-2147coqkuwxjapOODRNWV P [facility] HospitalStart: 07-25-2024 End: 60-46-2129Bgddfvou Hunter Cole MD Work Phone: [facility]-LAB Path Spec [facility] HospStart: 07-25-2024 End: 58-78-4393sloexbeeluRvcjjCami Cole MD Work Phone: [facility] Work Phone: Start: 07-25-2024 End: 49-57-8103uoqbgpzvlkVjpsomh FullerFacility:[facility] HospitalStart: 07-25-2024 End: 97-81-9536zfpmjmlwxfFvastpa FullerFacility:[facility] CLINICStart: 06-28-2024 End: 42-90-3288addtuhzbnzHXXXXPB P HOUSEFacility:[facility] ClinicStart: 06-22-2024 End: 30-82-1624nsudvvgjsnOJBFUIP P HOUSEProMedica Canton HospitalStart: 06-19-2024 End: 85-62-1699jenvftemwgSIZSEMR P HOUSEProMedica Canton HospitalStart: 06-17-2024 End: 75-45-6508pmpmghkxjoBEBAJZU E HOGANAultman Hospital HospitalStart: 06-16-2024 End: 02-05-0012bzimhymydmUCHLKJM E HOGANProMediMissouri [facility] HospitalStart: 05-29-2024 End: 00-15-1116Aabvzoasb encounterKyler FRANCO Work Phone: [facility] - Pain Management ClinicStart: 05-18-2024 End: 30-32-3471Vidmmg outpatient visit 25 minutesKyler FRANCO Work Phone: [facility] - Pain Management ClinicComment on above:Disorder of sacrum (Primary Dx)Start: 74-04-8743Stwogx follow up visit related to original pxCharles P House Work Phone: [phone]-Yxripukpmcgqmv-[place] Work Phone: Start: 35-60-0342JKYPLIwftjyd P House Work Phone: [phone]-Fhjcgvgkqazhnz-[place] Work Phone: Start: 04-15-2595YOBKJIopsqkr P House Work Phone: [phone]-Xmsjhgynlutonk-[place] Work Phone: Start: 47-12-1822Lywnvs outpatient visit 15 minutesNo PCP AtqbZZ-Yrzsthrjkbzfjp-Ctebmail [address] Work Phone: Start: 08-16-2021 End: 92-85-8956jnthqchlbaTaowro Dymond Other [facility] Agolo Other Start: 56-18-8393Oxrbve outpatient visit 15 minutes [facility] ClydeStart: 36-93-9982Ogreod follow up visit related to original pxNo PCP EbxyRJ-Gjhgbttaqlrkuk-Gyknmxyq Work Phone: Start: 25-48-3793XALZPKB, Provider: Edy Dominguez, Status: Pen, Time: 11:00 AMNo PCP ZvmxQH-Cvzmidyitobpqv-Vwpxlvco Work Phone: Start: 39-59-8174Javol UpdateNo PCP None GG-Rizliosiwerich-Epopfzol Work Phone: Start: 55-98-4006Oyargw outpatient visit 25 minutesNo PCP GeraNG-Nnkylheilqovwm-Qtcnpzub Work Phone: Start: 65-96-4548Nosf/qhp telephone evaluation 5-10 minNo PCP NsswRB-Dopbxjhgbrtutf-Hsafawwh Work Phone: Start: 53-80-4053Srypx UpdateNo PCP None CC-Alwbnhjnxjmujr-Pvnzxsxo Work Phone: Start: 19-97-4145Topxxv outpatient new 45 minutesNo PCP UltvVF-Wqhfcnrcqhfbhd-Qztfbibl Work Phone: Start: 08-28-2020 End: 58-17-3387Hconjka encounter procedureMELISSA MARKERFacility:H1 Procedures DateProcedureProcedure DetailPerforming ClinicianStart: 89-43-1846OSD 12-LEAD Jorge Lauren DO Work Phone: Start: 98-38-8900IY PELVIS W/ TRANSVAGINALCorey Lauren DO Work Phone: Start: 10-39-1122LDP,APTIMA HPV,AGE GDLNCorey Lauren DO Work Phone: Start: 18-44-0367KRF 12-LEADCorey Lauren DO Work Phone: Start: 30-12-4555Pushk test visual color cmprsn methsCorey Lauren DO Work Phone: Plan of Treatment DateCare ActivityDetailAuthorStart: 51-61-7611Zxjgz BMI ScreeningAdult BMI ScreeningProMedica Health SystemStart: 64-53-9626Sksxrqx ScreeningTobacco ScreeningProMedica Health SystemStart: 65-18-6490Fizmg BMI ScreeningAdult BMI ScreeningProMedica Health SystemStart: 38-58-5382Pijhlco ScreeningTobacco ScreeningProMedica Health SystemStart: 40-76-8658Legjt BMI ScreeningAdult BMI ScreeningProMedica Health SystemStart: 56-45-8834Gdrmogp ScreeningTobacco ScreeningProMedica Health SystemStart: 15-36-4951Fbsuq BMI ScreeningAdult BMI ScreeningProMedica Health SystemStart: 95-24-2704Ukjnezb ScreeningTobacco ScreeningProMedica Health SystemStart: 04-78-2747Dmdmt BMI ScreeningAdult BMI ScreeningProMedica Health SystemStart: 52-80-4650Bwxcury ScreeningTobacco ScreeningProMedica Health SystemStart: 08-22-2025 End: 07-97-9989Mpzvbvt encounter procedureNOMERCY [facility] ENDOCRINOLOGYStart: 08-11-2025 Tobacco ScreeningTobacco ScreeningProOur Lady Of Mercy Hospital - Andersonca [facility] SystemStart: 08-08-2025 End: 37-08-1810Weujyvf encounter cbkhmzjbo05/03/2025 2:30 PM EST Office Visit MAZIN MENDOZA [address] [place] [phone] Lindsey Collier PA [address] [place] [address] MAZIN Cristina OBGYNStart: 07-26-2025 End: 36-06-8574Xuhdrsf encounter /20/2025 1:00 PM EST Office Visit [facility] [address] [place] [phone] Kyler Carvajal PA [address] [place] [address] [facility] - Pain Management ClinicStart: 07-04-2025 End: 27-91-9910Fcgfdux encounter qoqpumdxa72/29/2025 2:30 PM EDT Office Visit MAZIN MENDOZA [address] [phone] Lindsey Collier PA [address] [place] [address] MAZIN CHACONGYNStart: 05-29-2025 End: 04-91-8305WO Breast - bilateral ScreeningBilateral screening mammogram Imaging Routine Breast cancer screening by mammogram Expected: 05/29/2025 (Approximate), Expires: 07/29/2026[facility] Work Phone: comment on above:Expected: 05/29/2025 (Approximate), Expires: 07/29/2026Start: 05-29-2025 End: 62-25-5226Fgwcvml encounter erfluzyym04/23/2025 1:40 PM EDT Procedure Visit [facility] [address] [facility] [place] [address] Jorge Aguilar DO [address] [place] [address] [facility] OBGYNStart: 05-23-2025 End: 16-08-3469Apaseatzgcez / ancillary services muwyqhlerq76/17/2025 1:00 PM EDT Ancillary Procedure [facility] [address] [facility] [place] [address] [facility] OBGYNStart: 56-81-5253Hpbwt BMI ScreeningAdult BMI ScreeningAkron Children's Hospital SystemStart: 93-47-3762Smnurth ScreeningTobacco ScreeningAkron Children's Hospital SystemStart: 27-13-4121Hiwjvuxdi vaccinationInfluenza VaccineAkron Children's Hospital SystemStart: 04-18-2025 End: 35-72-1057NV PelvisUS Pelvis w/ TV Imaging Routine Dysfunctional uterine bleeding Expected: 04/18/2025, Expires: 10/19/2025[facility] Work Phone: comment on above:Expected: 04/18/2025, Expires: 10/19/2025Start: 04-12-2025 End: 79-98-8378Wxxzalb encounter wwilmzmyn66/07/2025 1:30 PM EDT Office Visit [facility] [address] [place] [address] Kyler Carvajal PA [address] [place] [address] [facility] - Pain Management ClinicStart: 03-30-2025 End: 11-81-5883Bkiybkyxy to same day surgery ordhkp1703/30/2025 11:58 AM EDT - 03/30/2025 12:05 PM EDT Surgery [facility] - Pain Procedures [address] [facility] [place] [phone] Zeeshan Perry MD [address] [facility] [facility] [facility] [place], [place] [address] INJECTION BLOCK NERVE SACROILIAC [51016 (CPT )][facility] - Pain ProceduresComment on above:INJECTION BLOCK NERVE SACROILIAC [20740 (CPT )]Start: 03-30-2025 End: 33-16-6547Twksir si joint arthrgrphy&/anes/steroid w/imaINJECTION BLOCK NERVE SACROILIAC Disorder of sacrum 03/30/2025 11:58 AM EDTFREMONT PAINStart: 25-62-1862Wndtulkgkh hospital visit by dvcmpvyvg67/25/2025 11:58 AM EDT Hospital Encounter [facility] - Pain Procedures [address] [place] [address] Zeeshan Perry MD [address] [facility] [place] [phone] [facility] - Pain ProceduresStart: 02-28-2025 End: 43-90-8800FugoqmueuquwtEzhesbxnjlypv Lab Routine Postoperative hypothyroidism Papillary thyroid carcinoma (HCC) Expected: 02/28/2025 (Approximate), Expires: 02/28/2026[facility] Work Phone: Comment on above:Expected: 02/28/2025 (Approximate), Expires: 02/28/2026Start: 02-28-2025 End: 65-20-0290Uqdehlilatydr AntibodyThyroglobulin Antibody Lab Routine Postoperative hypothyroidism Papillary thyroid carcinoma (HCC) Expected: 02/28/2025 (Approximate), Expires: 02/28/2026[facility] HealthcareComment on above: Expected: 02/28/2025 (Approximate), Expires: 02/28/2026Start: 02-28-2025 End: 09-28-8391Lsdseoeknid [Units/volume] in Serum or PlasmaTSH Lab Routine Postoperative hypothyroidism Expected: 02/28/2025 (Approximate), Expires: 02/28/2026[facility] HealthcareComment on above:Expected: 02/28/2025 (Approximate), Expires: 02/28/2026Start: 02-28-2025 End: 95-12-9484Pjhsbnnvi (T4) free [Mass/volume] in Serum or PlasmaT4, free Lab Routine Postoperative hypothyroidism Expected: 02/28/2025 (Approximate), Expires: 02/28/2026[facility] HealthcareComment on above:Expected: 02/28/2025 (Approximate), Expires: 02/28/2026Start: 02-28-2025 End: 95-03-9187Jgipwbxroznrikef (T3) Free [Mass/volume] in Serum or PlasmaT3, free Lab Routine Postoperative hypothyroidism Expected: 02/28/2025 (Approximate), Expires: 02/28/2026[facility] HealthcareComment on above:Expected: 02/28/2025 (Approximate), Expires: 02/28/2026Start: 02-28-2025 End: 66-60-5620Ezdvrty encounter qsukbfcxh61/25/2025 1:20 PM EDT Office Visit [facility] ENDOCR[facility] [address] [place] [phone] Thi Stephens MD [address] [place] [address] [facility] ENDOCRINOLOGYComment on above:Arrived Start: 01-30-2025 End: 53-95-2785Vmqhpyg encounter avjksjssl16/27/2025 2:30 PM EDT Office Visit [facility] [address] [place] [phone] Kyler Carvajal PA [address] [place] [address] [facility] Pain Management ClinicStart: 12-07-2024 End: 74-46-7663Chdijfd encounter uplvlkqvv35/03/2025 1:30 PM EDT Office Visit [facility] [address] [place] [address] Kyler Carvajal PA [address] [place] [address] [facility] - Pain Management ClinicStart: 11-17-2024 End: 56-36-2026Voadzzjpe to same day surgery aafncl3911/17/2024 10:26 AM EDT - 11/17/2024 10:33 AM EDT Surgery [facility] Pain Procedures [address] [place] [address] Zeeshan Perry MD [address] [facility] [facility]Day[place], [place] [phone] INJECTION BLOCK SACROILIAC JOINT [62471 (CPT )][facility] - Pain ProceduresComment on above:INJECTION BLOCK SACROILIAC JOINT [64299 (CPT )]Start: 11-17-2024 End: 75-33-2866Stccbj si joint arthrgrphy&/anes/steroid w/imaINJECTION BLOCK SACROILIAC JOINT Disorder of sacrum 11/17/2024 10:26 AM EDTFREMONT PAINStart: 67-53-5642Huvryuimeu hospital visit by rbijwfmvi33/14/2025 10:26 AM EDT Hospital Encounter [facility] - Pain Procedures [address] [place] [address] Zeeshan Perry MD [address] [place], [place] [address] [facility] - Pain ProceduresStart: 11-09-2024 End: 57-96-2749Fnnzzpt encounter dqwzxugdy47/06/2025 2:45 PM EST Office Visit [facility] [address] [place] [address] Kyler Carvajal, JOAN [address] [place], [place] [phone] [facility] - Pain Management ClinicStart: 10-17-2024 End: 61-89-5860Lkyyzif encounter lexbvqqtu50/11/2025 2:30 PM EST Procedure Visit [facility] [address] [place] [address] Jorge Aguilar, DO [address] [place] [address] [facility] BCP OBStart: 09-19-2024 End: 70-06-7534HQ PelvisUS Pelvis w/ TV Imaging Routine Dysfunctional uterine bleeding Expected: 09/19/2024, Expires: 09/19/2025[facility] Work Phone: comment on above:Expected: 09/19/2024, Expires: 09/19/2025Start: 09-19-2024 End: 67-81-7373Sikjdvd encounter procedureNOLAKESIDE [facility]OS[facility] OBComment on above:Arrived Start: 09-11-2024 End: 10-28-2284ZqfuxgdjfutmfPC[facility] Work Phone: Comment on above:Expected: 09/11/2024 (Approximate), Expires: 09/11/2025Expected: 09/11/2024, Expires: 09/11/2025Start: 09-11-2024 End: 37-24-7098Okggtcreqwdcs Ab [Units/volume] in Serum or PlasmaThyroglobulin Ab Lab Routine Postprocedural hypothyroidism Malignant neoplasm of thyroid gland (CMS-HCC) Expected: 09/11/2024, Expires: 09/11/2025[facility] Work Phone: Comment on above:Expected: 09/11/2024, Expires: 09/11/2025Start: 09-11-2024 End: 84-77-0271Oxechhqysombo AntibodyThyroglobulin Antibody Lab Routine Postoperative hypothyroidism (CMS/HCC) Papillary thyroid carcinoma (CMS/HCC) Expected: 09/11/2024 (Approximate), Expires: 09/11/2025[facility] HealthcareComment on above:Expected: 09/11/2024 (Approximate), Expires: 09/11/2025Start: 09-11-2024 End: 71-82-1739Asvjqdp profile includes TSH DB7Czqqddx profile includes TSH FT4 Lab Routine Postprocedural hypothyroidism Malignant neoplasm of thyroid gland (CMS-HCC) Expected: 09/11/2024, Expires: 09/11/2025[facility] Work Phone: Comment on above:Expected: 09/11/2024, Expires: 09/11/2025Start: 09-11-2024 End: 03-26-1086Nhdgbzbhoql [Units/volume] in Serum or PlasmaTSH Lab Routine Postoperative hypothyroidism (CMS/HCC) Papillary thyroid carcinoma (CMS/HCC) Expected: 09/11/2024 (Approximate), Expires: 09/11/2025[facility] HealthcareComment on above:Expected: 09/11/2024 (Approximate), Expires: 09/11/2025Start: 09-11-2024 End: 88-91-6905Syavwovxq (T4) free [Mass/volume] in Serum or PlasmaAkron Children's Hospital SystemComment on above:Expected: 09/11/2024 (Approximate), Expires: 09/11/2025Expected: 09/11/2024, Expires: 09/11/2025Start: 09-11-2024 End: 21-89-7977Bvclnxoxkzqclsqz (T3) Free [Mass/volume] in Serum or Plasma [facility] HospitalComment on above:Expected: 09/11/2024 (Approximate), Expires: 09/11/2025Expected: 09/11/2024, Expires: 09/11/2025Start: 09-07-2024 End: 01-08-9938Mwawhud encounter irgoqedxj93/02/2025 2:30 PM EST Office Visit [facility] [address] [place] [address] Kyler Carvajal PA [address] [place], [place] [address] [facility] - Pain Management ClinicStart: 07-04-2024 End: 22-36-9375Bnohuvp encounter dfpemiyly22/29/2024 12:30 PM EDT Office Visit [facility] [address] [place] [address] Kyler Carvajal PA [address] [place], [place] [address] [facility] - Pain Management ClinicStart: 06-16-2024 End: 15-25-8769Uoinyovmp to same day surgery uaizjt1406/16/2024 11:15 AM EDT - 06/16/2024 11:22 AM EDT Surgery [facility] [address] [place] [address] Zeeshan Perry MD [address] [facility]Day[place], [place] [address] INJECTION BLOCK SACROILIAC JOINT [97392 (CPT )][facility] - Pain ProceduresComment on above:INJECTION BLOCK SACROILIAC JOINT [67272 (CPT )]Start: 06-16-2024 End: 59-07-0044Sohyoh si joint arthrgrphy&/anes/steroid w/imaINJECTION BLOCK SACROILIAC JOINT Disorder of sacrum 06/16/2024 11:15 AM EDTFREMONT PAINStart: 34-20-6417Jfeeyslura hospital visit by clkfyipdy58/11/2024 11:15 AM EDT Hospital Encounter [facility] [address] [place] [address] Zeeshan Perry MD [address] [place] [address] [facility] HospitalStart: 33-11-1203Kmctsahdk vaccinationInfluenza Vaccine [facility] SystemStart: 45-89-9602FGC, Provider: Edy Dominguez, Status: Pen, Time: 2:30 PMFUV, Provider: Edy Dominguez, Status: Pen, Time: 2:30 PM AJ-Dbcicseospkomj-Nuwycoby Work Phone: Start: 48-84-3183ATU, Provider: Edy Dominguez, Status: Pen, Time: 4:00 PMPOV, Provider: Edy Dominguez, Status: Pen, Time: 4:00 PM NA-Jpxfimyokqukyf-Knwvdlmg Work Phone: Start: 35-93-4526PCPHHUS, Provider: Edy Dominguez, Status: Pen, Time: 7:00 [facility], Provider: Edy Dominguez, Status: Pen, Time: 7:00 DHVW-Twymwrrvgryhnb-Oboocasf Work Phone: Start: 71-56-5591HTV, Provider: Edy Dominguez, Status: Pen, Time: 3:00 PMFUV, Provider: Edy Dominguez, Status: Pen, Time: 3:00 PM HD-Ykempolskmdyky-Mvokdbqj Work Phone: Start: 90-44-4686RBUPSJW, Provider: Edy Dominguez, Status: Pen, Time: 11:00 [facility], Provider: Edy Dominguez, Status: Pen, Time: 11:00 AQCN-Onxgdifmcxeejf-Cxwrkimb Work Phone: Start: 08-95-0957Wkqpvmtsj for malignant neoplasm of cervixPap SmearAkron Children's Hospital SystemStart: 90-77-3341UTeD,Tdap and Td Vaccines (1 - Tdap)DTaP,Tdap and Td Vaccines (1 - Tdap)[facility] SystemStart: 73-89-7092Vyvyn BMI Follow Up PlanAdult BMI Follow Up PlanUNC Health Waynetart: 48-22-0431Txkhxsthei ScreeningDepression ScreeningMemorial HospitalTHIN PREP TIS PAP AND HR HPV DNATHIN PREP TIS PAP AND HR HPV DNA Pathology and Cytology Routine Well woman exam with routine gynecological exam Ordered: 05/29/2025[facility] HospitalComment on above:Ordered: 05/29/2025Tissue examTissue exam Pathology and Cytology Routine Dysfunctional uterine bleeding Pre-operative exam Ordered: 11/01/2024[facility] Work Phone: comment on above:Ordered: 11/01/2024 End: 50-55-6259HI Lumbar spine 2 or 3 ViewsX-ray spine lumbar 2 or 3 views Imaging Routine Lumbosacral spondylosis without myelopathy 1 Occurrences starting 06/07/2025 until 06/07/2026[facility] Work Phone: Comment on above:1 Occurrences starting 06/07/2025 until 06/07/2026XR Lumbar spine 2 or 3 ViewsX-ray spine lumbar 2 or 3 views Imaging Routine Lumbosacral spondylosis without myelopathy 06/07/2025 1:49 PM [facility] Immunizations Immunization DateImmunizationNotesCare OerskzcpCgohvqmd00-25-1584hanuncmot, injectable, quadrivalent, contains preservativeAhkylah Stephens MD Work Phone: [facility] HospitalZkqvolmppi48-18-3273yltufeawl virus vaccine, unspecified formulationKyler FRANCO Work Phone: Memorial HospitalMypqio83-99-3460miarflikz, injectable, quadrivalent, contains preservativeThi Stephens MD Work Phone: [facility] Payers DatePayer CategoryPayerPolicy [id number]-pay2024Medicare (Managed Care)[employer] Member Subscriber Plan / Payer (Effective 2023-Present) Name: Lauro Pinto Relation to Subscriber: Self Name: Lauro Pinto Stephanie Payer ID: Not on file Group ID: [id number] Type: Not on file Address: [address] [place] [id number] 2023Medicaid [id number] 2023MedicareANTHEM MEDICARE AN[employer]M MEDICARE ADVANTAGE [id number] 2022-Present [id number] [place] [id number]. Medicare [employer] Member Subscriber Plan / Payer (Effective 2022-Present) Name: Lauro Pinto Relation to Subscriber: Self Name: Sukumar Pintonathen Brown Payer ID: [id number] (NAIC) Group ID: [id number] Type: Not on file Address: [address] [place] [id number] InsuranceAUTO INSURANCE [id number] [id number] 2.16.840.1.748436.3.57[id number] 2.16.840.1.849331.3.57[id number] 2.16840.1.921293.3.579.2.242336-44-7929Ihkvzok8754941 2.840.1.951857.3.579.2.859405-30-0440Aqcuord8216421 2.840.1.796898.3.579.2.929474-20-5002Gjwohze8515062 2.840.1.001089.3.579.2.859460-70-7313Xdufdtp655581491 2.840.1.456341.3.579.2.980015-96-5114Zculwta236416399 2.840.1.288511.3.579.2.241229-31-0082Sawioom093326226 2.840.1.028844.3.579.2.880222-87-9401Xmokfqz316064114 2.16840.1.447562.3.579.2.374245-36-8364Kzfdjqw285127871 2.16840.1.436888.3.579.2.848900-62-4376Tekzvvb676336065 2.16840.1.011644.3.579.2.904665-50-3399Fzdcxbe009483457 2.16.840.1.297663.3.579.2.399875-10-3694Uyoayoc259894039 2.840.1.039338.3.579.2.533520-00-6785Gsqwtzv084943361 2.840.1.585592.3.579.2.133044-45-9518Wbnjzjb295770511 2.840.1.033310.3.579.2.836867-36-9863Fabklhz884337682 2.840.1.452623.3.579.2.852478-57-2629Mlkblog853204457 2.840.1.633499.3.579.2.268773-32-4971Hundmsl93138574 2.840.1.127598.3.579.2.628238-62-0585Glageuh67826844 2.840.1.780288.3.579.2.479625-47-3512Fvkqipk99433794 2.0.1.862180.3.57[id number] 2.840.1.874562.3.579.[id number] 2.840.1.560061.3.579.2.5[id number] 2.840.1.145394.3.579.2.0[id number] 2.840.1.981036.3.579.[id number] 2.840.1.593421.3.579.2.[id number] 2.840.1.411142.3.57[id number] 2.840.1.493409.3.579.[id number] 2..840.1.515582.3.579.[id number] 2.840.1.321777.3.579.2.[id number] 2.840.1.116461.3.579.2.5[id number] 2.0.1.595425.3.579.[id number] 2.0.1.555162.3.579.2.49221-88-5628Jpoqpiq75347921 2.0.1.787182.3.579.[id number] 2.0.1.302385.3.579.[id number] 2.0.1.414337.3.579.2.718 [id number] 1959Medicare [id number] Health InsuranceB[facility] Insurance [id number] 2.840.1.6479[id number] 2.840.1.334833.3.579.2.531 [id number] 2.840.1.207703.3.579.2.531 Social History DateTypeDetailFacilityUnknown if ever smokedNothree rivers healthcare Agolo Other Start: 08-09-2024 End: 58-77-3392Eox Assigned At BirthMemorial HospitalTobacc smoking status NHISUnknown if ever smokedSt. Anthony'S [facility] Work Phone: Start: 04-11-2015 End: 57-02-0432JfuTgdaft (finding)[facility] Hospitaltart: 29-05-2577Mvr Assigned At BirthFeDetwiler Memorial Hospitaltart: 07-08-2022 End: 11-07-5348Yiiwmec smoking status NHISNever smoked tobaccoAkron Children's Hospital SystemStart: 07-08-2022 End: 75-29-1775Imcnetd use and exposureSmokeless tobacco non-userAkron Children's Hospital SystemStart: 09-07-2024 End: 26-14-1049Jkctugrln beverage intakeCurrent drinker of alcohol (finding) [facility] Waynetart: 08-09-2024 End: 07-99-6691Ixihtnj of Social functionMemorial HospitalAdolescent depression screening tffwzzhmuy9OmpXnqfuvUNC Health Waynetart: 41-23-2465Zfdcovg CommentSocialGalion Community Hospital SystemStart: 91-71-5641Eyo assigned at birthNot on fileMemorial Hospital Medical Equipment Procedure CodeEquipment CodeEquipment Original TextEquipment IdentifierDatesScr Bn Twstof Frs 2.0x13 Ns - Sws13 - [id number]: 45-84-9964Zijoeba on above:Description: WS13 2.0 major thread, 13 mm screw, pitch 0.87 - SCR BN TWSTOF FRS 2.0X13 NS Titanium Fixos 2.0 WS twist off screwsScr Bn Twstof Frs 2.0x15 Ns - Sws15 - [id number]: 34-66-7967Ocsncrf on above:Description: WS15 2.0 major thread, 15 mm screw, pitch 0.87 - SCR BN TWSTOF FRS 2.0X 15 NS Titanium Fixos 2.0 WS twist off screws Clinical Notes 05-04-2021 to 06-25-2025 Note Date & IhysBunzExrxvbyr73-53-2957 NoteEntered by TONEY MONTOYA DO on June 25, 2025 07:31:12 EDT From: TONEY MONTOYA DO To: [place] [address] Sent: 06/25/2025 07:31:12 EDT Subject: Medication Management Submitted: Complete:busPIRone (busPIRone 10 mg oral tablet) Signed by TONEY MONTOYA DO 06/25/2025 07:31:00 EDT Approved with modifications: busPIRone (busPIRone HCl 10 MG Oral Tablet) Take 1 tablet by mouth twice daily as needed Qty: 60 tab(s) Days Supply: 30 Refills: 5 Substitutions Allowed Route To Pharmacy - [place] [address] From: [place] [address] To: TONEY MONTOYA DO Sent: June 23, 2025 10:19:07 AM CDT Subject: Medication Management Due: June 24, 2025 12:02:50 AM CDT On Hold Pending Signature Dispensed Drug: busPIRone (busPIRone 10 mg oral tablet), Take 1 tablet by mouth twice daily as needed Quantity: 60 tab(s) Days Supply: 30 Refills: 0 Substitutions [id number] Note Entered by TONEY MONTOYA DO on June 11, 2025 07:37:34 EDT From: TONEY MONTOYA DO To: [place] [address] Sent: 06/11/2025 07:37:34 EDT Subject: Medication Management Submitted: Complete:dicyclomine (dicyclomine 20 mg oral tablet) Signed by TONEY MONTOYA DO 06/11/2025 07:37:00 EDT Approved with modifications: dicyclomine (DICYCLOMINE 20MG TAB) Take 1 tablet by mouth 4 times daily Qty: 120 tab(s) Days Supply: 30 Refills: 5 Substitutions Allowed Route To Pharmacy - [facility] From: [facility] To: TONEY MONTOYA DO Sent: June 10, 2025 5:41:15 AM CDT Subject: Medication Management Due: June 11, 2025 12:18:16 AM CDT On Hold Pending Signature Dispensed Drug: dicyclomine (dicyclomine 20 mg oral tablet), Take 1 tablet by mouth 4 times daily Quantity: 120 tab(s) Days Supply: 30 Refills: 0 Substitutions [facility] [id number] History of Present illness Narrative* JOAN John - 06/07/2025 1:15 PM EDT [facility] [address] [place] [address] Patient: Lauro Pinto Sex: female : 1975 [...] joint injection 08/07/2022 80% relief that continues. 11/3/23 Bilateral SI injection with 30% temporary relief. 08/11/2024 bilateral sacroiliac injection with 70% relief that continues. Bilat SI joint injection 60% relief that continues. Preop pain was 5/10 now 2/10 continuedrelief. 03/30/2025 bilateral sacroiliac joint injections with 80% [...] 03/20/2022 Performed by Zeeshan Perry MD at [facility] BLOCK NERVE MEDIAL BRANCH Bilat L 4/5,5/1 Bilateral 02/06/2022 Performed by Zeeshan Perry MD at [facility] INJECTION BLOCK SACROILIAC JOINT Bilateral 03/30/2025 Performed by Zeeshan Perry MD at [facility] INJECTION BLOCK SACROILIAC JOINT Bilateral 11/17/2024 Performed by Zeeshan Perry MD at [facility] INJECTION BLOCK SACROILIAC JOINT Bilateral 08/11/2024 Performed by Zeeshan Perry MD at [facility] INJECTION BLOCK SACROILIAC JOINT Bilateral 07/09/2023 Performed by Zeeshan Perry MD at [facility] INJECTION BLOCK SACROILIAC JOINT Bilateral 08/07/2022 Performed by Zeeshan Perry MD at [facility] MEDIAL BRANCH NERVE BLOCK Bialteral L 3/4, 4/5 Medial Branhc Block X 1 Bilateral 05/07/2017 Performed by Zeeshan Perry MD at [facility] MEDIAL BRANCH NERVE BLOCK BILATERAL L3/4, 4/5 Bilateral 10/22/2017 Performed by Zeeshan Perry MD at [facility] KNEE ARTHROSCOPY W/ MENISCECTOMY Left 11/2022 OSTEOTOMY KELTON PROCEDURE METATARSAL Right 02/11/2018 Performed by Hector Watson DPM at [facility] RADIOFREQUENCY ABLATION SPINAL left L 4/5, 5/1 Left 05/15/2022 Performed by Zeeshan Perry MD at [facility] RADIOFREQUENCY ABLATION SPINAL right L 4/5,5/1 Right 04/24/2022 Performed by Zeeshan Perry MD at [facility] RADIOFREQUENCY ABLATION SPINAL: right L34 45 rfa Right 03/11/2018 Performed by Zeeshan Perry MD at [facility] SPINE SURGERY 09/06/2009 L5/S1 diskectomy [...] during discussion, demonstrated appropriate cognitive reasoning and understandingof the medical condition by asking appropriate questions [...] spine and paraspinal musculature. Pain is elicited withflexion, extension, and lateral rotation of the lumbar [...] Side effects, and possible interactions of these medicationswere reviewed and the medication agreement has been discussed, agreed upon, and signed. The patientunderstands compliance concerns and the requirement of pill counts and drug screens while taking medications prescribed by this clinic. Lumbar spine xray Imaging/Diagnostic Testing - It is felt that additional diagnostic testing is necessary to further evaluate the patients currentpain pathology. For this reason, we will order [...] monitoring for toxicity We do not currently prescribeany controlled substance from this practice. Treatment plans [...] JOAN John 06/07/25 1415 documented in this encounterMemorial Hospital09-29-2025 NoteEntered by TONEY MONTOYA DO on June 04, 2025 07:37:41 EDT From: TONEY MONTOYA DO To: [facility] Sent: 06/04/2025 07:37:41 EDT Subject: Medication Management Submitted: Complete:mirtazapine (mirtazapine 30 mg oral tablet) Signed by TONYE MONTOYA DO 06/04/2025 07:37:00 EDT Approved with modifications: mirtazapine (Mirtazapine 30 MG Oral Tablet) TAKE 1 TABLET BY MOUTH ONCE DAILY AT BEDTIME Qty: 30 tab(s) Days Supply: 30 Refills: 5 Substitutions Allowed Route To Pharmacy - [place] [address] From: [place] [address] To: TONEY MONTOYA DO Sent: June 03, 2025 5:41:18 AM CDT Subject: Medication Management Due: June 04, 2025 12:20:17 AM CDT On Hold Pending Signature Dispensed Drug: mirtazapine (mirtazapine 30 mg oral tablet), TAKE 1 TABLET BY MOUTH ONCE DAILY AT BEDTIME Quantity: 30 tab(s) Days Supply: 30 Refills: 0 Substitutions [facility] [id number] History of Present illness Narrative* Leandra Rangel - 05/29/2025 1:40 PM EDT Reason for Appointment: Patient ID: Lauro Pinto is a 50 y.o. female who presents for Gynecologic Exam and Pre-op Visit Patient presents today for Pre Op/Annual appointment. Patient is scheduled to undergo Da Alison assisted Laparoscopic Hysterectomy, possible exploratory laparotomy, possible BSO, possible cystoscopy on 06-27-[address] Aguilar at [facility]. MEDICATIONS Current Outpatient Medications Medication Instructions [...] mass index (BMI) of 40.0 to 49.9 ([facility]) Papillary thyroid carcinoma (HCC) 07/2021 Post-surgical hypothyroidism Vitamin D deficiency, unspecified HISTORY PAST MEDICAL HISTORY SOCIAL HISTORY Past Medical History: Diagnosis Date Dietary counseling and surveillance Morbid obesity with body mass index (BMI) of 40.0 to 49.9 ([facility]) Papillary thyroid carcinoma (HCC) 07/2021 left side [...] nursing note reviewed. Exam conducted with a first dyer present. Vitals: Estimated body mass index is [...] complaints of menorrhagia, dyspareunia, dysmenorrhea and pelvic pain.I have discussed conservative management vs. surgical management with the patient in detail and patient desires surgical management at this time. Patient will undergo Da Alison assisted Laparoscopic Hy sterectomy, possible exploratory laparotomy, possible BSO, possible cystoscopy on 06-27-25. Surgical consents were signed, mmc was reviewed, and patient is to proceed to [facility] OR. Follow Up: Patient is to follow up at 1 & 6 weeks post operative to assess proper healing and recovery from procedure. Documented by Lotus Bailey LPN on behalf of: Jorge Aguilar DO documented in this encounterSalem Memorial District HospitalBaflqfaomw69-41-1514 Note From: TONEY MONTOYA DO To: [facility] Clinical Pool ([facility]); Sent: 05/28/2025 12:54:45 EDT Subject: FW: Medication Management Due Date/Time: 05/29/2025 12:26:00 EDT Caller Name: LAURO PINTO; Caller Number: , From: [facility] To: TONEY MONTOYA DO Sent: May 28, 2025 11:26:13 AM CDT Subject: Medication Management Due: May 29, 2025 12:02:02 AM CDT On Hold Pending Signature Dispensed Drug: LORazepam (LORazepam 0.5 mg oral tablet), TAKE 1 TABLET BY MOUTH THREE TIMES DAILY Quantity: 90 tab(s) Days Supply: 30 Refills: 0 Substitutions Allowed Notes from Pharmacy: From: Mey Gutierrez To: [facility] Sent: 05/28/2025 13:25:06 EDT Subject: FW: Medication Management Not Approved: proposed to provider LORazepam (LORazepam 0.5 MG Oral Tablet) TAKE 1 TABLET BY MOUTH THREE TIMES DAILY Qty: 90 tab(s) Days Supply: 30 Refills: 0 Substitutions Allowed Route To [place] [address] [address]ier[address] [facility]09-06-2025 NoteEntered by TONEY MONTOYA DO on May 12, 2025 11:34:27 EDT From: TONEY MONTOYA DO To: [place] [address] Sent: 05/12/2025 11:34:27 EDT Subject: Medication Management Submitted: Complete:deutetrabenazine (Austedo 6 mg oral tablet) Signed by TONEY MONTOYA DO 05/12/2025 11:34:00 EDT Approved deutetrabenazine (Austedo 6 MG Oral Tablet) Take 1 tablet by mouth twice daily with food Qty: 60 tab(s) Days Supply: 30 Refills: 0 Substitutions Allowed Route To [place] [address] From: [place] [address] To: TONEY MONTOYA DO Sent: May 12, 2025 9:03:43 AM CDT Subject: Medication Management Due: May 13, 2025 12:23:41 AM CDT On Hold Pending Signature Dispensed Drug: deutetrabenazine (Austedo 6 mg oral tablet), Take 1 tablet by mouth twice daily with food Quantity: 60 tab(s) Days Supply: 30 Refills: 0 Substitutions [facility] [id number] Note Entered by TONEY MONTOYA DO on April 30, 2025 11:41:27 EDT From: TONEY MONTOYA DO To: [place] [address] Sent: 04/30/2025 11:41:27 EDT Subject: Medication Management Submitted: Complete:citalopram (citalopram 20 mg oral tablet) Signed by TONEY MONTOYA DO 04/30/2025 11:41:00 EDT Approved with modifications: citalopram (Citalopram Hydrobromide 20 MG Oral Tablet) Take 1 tablet by mouth once daily Qty: 30 tab(s) Days Supply: 30 Refills: 5 Substitutions Allowed Route To Pharmacy - [place] [address] From: [place] [address] To: TONEY MONTOYA DO Sent: April 30, 2025 10:03:45 AM CDT Subject: Medication Management Due: May 01, 2025 12:02:58 AM CDT On Hold Pending Signature Dispensed Drug: citalopram (citalopram 20 mg oral tablet), Take 1 tablet by mouth once daily Quantity: 30 tab(s) Days Supply: 30 Refills: 0 Substitutions Allowed [facility] [id number] History of Present illness Narrative* Lotus Bailey, KAT - 04/18/2025 1:50 PM EDT Reason for Appointment: Patient ID: Lauro Pinto [...] mass index (BMI) of 40.0 to 49.9 ([facility]) Papillary thyroid carcinoma (HCC) 07/2021 Post-surgical hypothyroidism Vitamin D deficiency, unspecified HISTORY PAST MEDICAL HISTORY SOCIAL HISTORY Past Medical History: Diagnosis Date Dietary counseling and surveillance Morbid obesity with body mass index (BMI) of 40.0 to 49.9 ([facility]) Papillary thyroid carcinoma (HCC) 07/2021 left side [...] nursing note reviewed. Exam conducted with a first dyer present. Vitals: Estimated body mass index is [...] of: Jorge Aguilar DO documented in this encounterSalem Memorial District [id number] NoteEntered by TONEY MONTOYA DO on March 08, 2025 10:58:59 EDT From: TONEY MONTOYA DO To: [place] [address] Sent: 03/08/2025 10:58:58 EDT Subject: Medication Management Submitted: Complete:cariprazine (Vraylar 6 mg oral capsule) Signed by TONEY MONTOYA DO 03/08/2025 10:58:00 EDT Approved with modifications: cariprazine (Vraylar 6 MG Oral Capsule) Take 1 capsule by mouth once daily Qty: 30 cap(s) Days Supply: 30 Refills: 2 Substitutions Allowed Route To Pharmacy - [place] [address] From: [facility] To: TONEY MONTOYA DO Sent: March 08, 2025 9:53:19 AM CDT Subject: Medication Management Due: March 09, 2025 12:01:42 AM CDT On Hold Pending Signature Dispensed Drug: cariprazine (Vraylar 6 mg oral capsule), Take 1 capsule by mouth once daily Quantity: 30 cap(s) Days Supply: 30 Refills: 0 Substitutions [facility] [id number] History of Present illness Narrative* JOAN John - 03/01/2025 1:00 PM EDT [facility] [address] [place] [address] Patient: Lauro A Blair Sex: female : 1975 Age: 50 y.o. PCP: TONEY MONTOYA DO 03/01/2025 Lauronathen Pinto is here for a(n) 3 month follow up. Chief Complaint Patient presents with Back Pain HPI: PT/Water therapy 12/2022 last visit Back: Bilat SI joint injection 60% relief that continues. Preop pain was 5/10 now 2/10 continuedrelief. 02/06/22 Bilateral L4/5, 5/1 MBB with 75% [...] 03/20/2022 Performed by Zeeshan Perry MD at [facility] BLOCK NERVE MEDIAL BRANCH Bilat L 4/5,5/ Bilateral 02/06/2022 Performed by Zeeshan Perry MD at [facility] IN[facility] BLOCK SACROILIAC JOINT Bilateral 11/17/2024 Performed by Zeeshan Perry MD at [facility] IN[facility] BLOCK SACROILIAC JOINT Bilateral 08/11/2024 Performed by Zeeshan Perry MD at [facility] BLOCK SACROILIAC JOINT Bilateral 07/09/2023 Performed by Zeeshan Perry MD at [facility] IN[facility] BLOCK SACROILIAC JOINT Bilateral 08/07/2022 Performed by Zeeshan Perry MD at [facility] MEDIAL BRANCH NERVE BLOCK Bialteral L 3/4, 4/5 Medial Branhc Block X 1 Bilateral 05/07/2017 Performed by Zeeshan Perry MD at [facility] INJECTION MEDIAL BRANCH NERVE BLOCK BILATERAL L3/4, 4/5 Bilateral 10/22/2017 Performed by Zeeshan Perry MD at [facility] KNEE ARTHROSCOPY W/ MENISCECTOMY Left 11/2022 OSTEOTOMY KELTON PROCEDURE METATARSAL Right 02/11/2018 Performed by Hector Watson DPM at [facility] RADIOFREQUENCY ABLATION SPINAL left L 4/5, 5/1 Left 05/15/2022 Performed by Zeeshan Perry MD at [facility] RADIOFREQUENCY ABLATION SPINAL right L 4/5,5/1 Right 04/24/2022 Performed by Zeeshan Perry MD at [facility] RADIOFREQUENCY ABLATION SPINAL: right L34 45 rfa Right 03/11/2018 Performed by Zeeshan Perry MD at [facility] SPINE SURGERY 09/06/2009 L5/S1 diskectomy [...] during discussion, demonstrated appropriate cognitive reasoning and understandingof the medical condition by asking appropriate questions [...] procedure was described in detail to the patientas well as the potential benefits of pain [...] monitoring for toxicity We do not currently prescribeany controlled substance from this practice. It is noted that the patient did have good response from the previously performed procedure. It is felt that the patient would benefit from an additional procedure of the same nature in that the samesymptoms have returned. It is hopeful that this [...] the above service. Zainab Robles CNA 03/01/25 9407 JOAN John 03/01/25 1349 documented in this encounterMemorial Hospital06-26-2025 Instructions* Patient Instructions* Zainab JacquelinemyraVIVIAN - 03/01/2025 1:00 PM EDT Facet Injection [...] take you to the nearest emergency room. Tellthe emergency room staff that you recently had a spine injection. A doctor must evaluate you for bleeding and injection complications. If you lose control over bowel, bladder, or legs: Go to the nearest emergency room. documented in this encounterMemorial Hospital06-25-2025 History of Present illness Narrative* Thi Stephens MD - 02/28/2025 1:20 PM EDT Images from the original note were not [...] 08/2022 follow up visit on 08/18/2022 on 200+30=665 mcg daily. no new lab yet. HPI: 01/2022 New patient sent from Dr. Edy Dominguez, the surgeon, with the surgery for her twice in [facility] in [place], first one in left lobe for thyroid cancer, papillary, in July 2021. She doesnot remember if had been told if she needed radioactive treatment. Then, completion surgery done inNovember 2021, and ultrasound done of that, no lymphadenopathy. She is currently on 200 Euthyrox. She takes it without other medication. The pathology report on her right side normal. I do not have the pathology report left side. [id number], largest foci 0.8 cm. SUBJECTIVE: MEDICATIONS: Current [...] mass index (BMI) of 40.0 to 49.9 ([facility]) Papillary thyroid carcinoma (HCC) 07/2021 left [...] (BMI) of 40.0 to 44.9 in adult ([facility]) Diet and exercise reviewed with the patient Follow up in about 6 months (around 08/30/2025). documented in this encounterSalem Memorial District HospitalJgcctmtepu15-00-6586 NoteEntered by TONEY MONTOYA DO on February 07, 2025 16:09:29 EDT From: TONEY MONTOYA DO To: [place] [address] Sent: 02/07/2025 16:09:29 EDT Subject: Medication Management Submitted: Complete:ferrous gluconate (ferrous gluconate 324 mg (38 mg elemental iron) oral tablet) Signed by TONEY MONTOYA DO 02/07/2025 16:09:00 EDT Approved with modifications: ferrous gluconate (Ferrous Gluconate 324 (38 Fe) MG Oral Tablet) Take 1 tablet by mouth once daily Qty: 100 tab(s) Days Supply: 100 Refills: 1 Substitutions Allowed Route To Pharmacy - [place] [address] From: [place] [address] To: TONEY MONTOYA DO Sent: February 07, 2025 2:42:48 PM CDT Subject: Medication Management Due: February 08, 2025 12:58:21 PM CDT On Hold Pending Signature Dispensed Drug: ferrous gluconate (ferrous gluconate 324 mg (38 mg elemental iron) oral tablet), Take 1 tablet by mouth once daily Quantity: 100 tab(s) Days Supply: 100 Refills: 0 Substitutions [id number] Note Entered by TONEY MONTOYA DO on January 01, 2025 11:36:04 EDT From: TONEY MONTOYA DO To: [place] [address] Sent: 01/01/2025 11:36:03 EDT Subject: Medication Management Submitted: Complete:busPIRone (busPIRone 10 mg oral tablet) Signed by TONEY MONTOYA DO 01/01/2025 11:36:00 EDT Approved with modifications: busPIRone (busPIRone HCl 10 MG Oral Tablet) Take 1 tablet by mouth twice daily as needed Qty: 60 tab(s) Days Supply: 30 Refills: 1 Substitutions Allowed Route To Pharmacy - [place] [address] From: [place] [address] To: TONEY MONTOYA DO Sent: January 01, 2025 10:01:56 AM CDT Subject: Medication Management Due: January 02, 2025 9:38:10 AM CDT On Hold Pending Signature Dispensed Drug: busPIRone (busPIRone 10 mg oral tablet), Take 1 tablet by mouth twice daily as needed Quantity: 60 tab(s) Days Supply: 30 Refills: 0 Substitutions Allowed [facility] [id number] Note Entered by TONEY MONTOYA DO on December 18, 2024 07:29:23 EDT From: TONEY MONTOYA DO To: [place] [address] Sent: 12/18/2024 07:29:23 EDT Subject: Medication Management [...] 30 Refills: 5 Substitutions Allowed Route To [place] [address] Approved with modifications: mirtazapine (Mirtazapine 30 MG Oral Tablet) TAKE 1 TABLET BY MOUTH ONCE DAILY AT BEDTIME Qty: 30 tab(s) Days Supply: 30 Refills: 5 Substitutions Allowed Route To [place] [address] From: [place] [address] To: TONEY MONTOYA DO Sent: December 17, [...] Substitutions Allowed [facility] [id number] History of Present illness Narrative* JOAN John - 11/30/2024 9:00 AM EDT [facility] [address] [place] [address] Patient: Lauro Pinto Sex: female : 1975 [...] continues. Preop pain was 5/10 now 2/10 continuedrelief. 02/06/22 Bilateral L4/5, 5/1 MBB with 75% [...] lying down, twisting and bending. Stiffness is presentIn the morning (getting up from lying position). [...] 03/20/2022 Performed by Zeeshan Perry MD at [facility] INJECTION BLOCK NERVE MEDIAL BRANCH Bilat L 4/5,5/1 Bilateral 02/06/2022 Performed by Zeeshan Perry MD at [facility] INJECTION BLOCK SACROILIAC JOINT Bilateral 11/17/2024 Performed by Zeeshan Perry MD at [facility] INJECTION BLOCK SACROILIAC JOINT Bilateral 08/11/2024 Performed by Zeeshan Perry MD at [facility] INJECTION BLOCK SACROILIAC JOINT Bilateral 07/09/2023 Performed by Zeeshan Perry MD at [facility] INJECTION BLOCK SACROILIAC JOINT Bilateral 08/07/2022 Performed by Zeeshan Perry MD at [facility] MEDIAL BRANCH NERVE BLOCK Bialteral L 3/4, 4/5 Medial Branhc Block X 1 Bilateral 05/07/2017 Performed by Zeeshan Perry MD at [facility] MEDIAL BRANCH NERVE BLOCK BILATERAL L3/4, 4/5 Bilateral 10/22/2017 Performed by Zeeshan Perry MD at [facility] KNEE ARTHROSCOPY W/ MENISCECTOMY Left 11/2022 OSTEOTOMY KELTON PROCEDURE METATARSAL Right 02/11/2018 Performed by Hector Watson DPM at [facility] RADIOFREQUENCY ABLATION SPINAL left L 4/5, 5/1 Left 05/15/2022 Performed by Zeeshan Perry MD at [facility] RADIOFREQUENCY ABLATION SPINAL right L 4/5,5/1 Right 04/24/2022 Performed by Zeeshna Perry MD at [facility] RADIOFREQUENCY ABLATION SPINAL: right L34 45 rfa Right 03/11/2018 Performed by Zeeshan Perry MD at [facility] SPINE SURGERY 09/06/2009 L5/S1 diskectomy [...] during discussion, demonstrated appropriate cognitive reasoning and understandingof the medical condition by asking appropriate questions [...] spine and paraspinal musculature. Pain is elicited withflexion, extension, and lateral rotation of the lumbar [...] monitoring for toxicity We do not currently prescribeany controlled substance from this practice. Treatment plans discussed but not opted for at this time: Lumbar Medial Branch Block. Pain is underadequate control. It does appear that the patient benefited from the previous injection and the benefit has continuedthrough this visit. At this time, we will monitor the patient s symptoms from an interventional standpoint and consider another injection in the future if the patient s symptoms return or intensify severely. The patient was made aware that they should call if symptoms worsen or if their pain beginsto have a negative impact on their quality of life and activities of daily living again. The spine model was demonstrated and MRI was reviewed and used to explain the condition. Chronic conditions not treated during this visit that affected my overall medical decision making: Obesity OARRS: Reviewed. Scribe Statement: ICamelia RN, scribed for and in the presence of JOAN JOHN who performed the above service. Camelia Chakraborty RN 11/30/24 0335 JOAN John 11/30/24 0932 documented in this encounterMemorial Hospital03-17-2025 NoteEntered by TONEY MONTOYA DO on November 20, 2024 07:29:00 EDT From: TONEY MONTOYA DO To: [place] [address] Sent: 11/20/2024 07:29:00 EDT Subject: Medication Management Submitted: Complete:cariprazine (Vraylar 1.5 mg oral capsule) Signed by TONEY MNOTOYA DO 11/20/2024 07:28:00 EDT Approved with modifications: cariprazine (Vraylar 1.5 MG Oral Capsule) Take 1 capsule by mouth once daily Qty: 30 cap(s) Days Supply: 30 Refills: 5 Substitutions Allowed Route To Pharmacy - [place] [address] From: [place] [address] To: TONEY MONTOYA DO Sent: November 19, 2024 5:41:47 AM CDT Subject: Medication Management Due: November 20, 2024 12:27:06 AM CDT On Hold Pending Signature Dispensed Drug: cariprazine (Vraylar 1.5 mg oral capsule), Take 1 capsule by mouth once daily Quantity: 30 cap(s) Days Supply: 30 Refills: 0 Substitutions [id number] Note Entered by TONEY MONTOYA DO on November 06, 2024 11:01:24 EST From: TONEY MONTOYA DO To: [place] [address] Sent: 11/06/2024 11:01:24 EST Subject: Medication Management Submitted: Complete:citalopram (citalopram 20 mg oral tablet) Signed by TONEY MONTOYA DO 11/06/2024 11:01:00 EST Approved with modifications: citalopram (Citalopram Hydrobromide 20 MG Oral Tablet) Take 1 tablet by mouth once daily Qty: 30 tab(s) Days Supply: 30 Refills: 5 Substitutions Allowed Route To Pharmacy - [facility] To: TONEY MONTOYA DO Sent: November 06, 2024 8:20:27 AM STAFF NURSE Subject: Medication Management Due: November 07, 2024 12:02:49 AM STAFF NURSE On Hold Pending Signature Dispensed Drug: citalopram (citalopram 20 mg oral tablet), Take 1 tablet by mouth once daily Quantity: 30 tab(s) Days Supply: 30 Refills: 0 Substitutions [id number] History of Present illness Narrative* Lotus Lynn, SUSTAINABLE DESIGN COORDINATOR - 11/01/2024 1:00 PM EST Reason for Appointment: Patient ID: Lauro Pinto is a 49 y.o. female who presents for Vaginal Bleeding and Pre-op Visit Patient presents today for Pre Op/Endometrial Biopsy appointment. Patient is scheduled to undergo Endometrial Ablation with Anya on 11/10/[address] Aguilar at [facility]. MEDICATIONS Current Outpatient Medications Medication Instructions [...] mass index (BMI) of 40.0 to 49.9 ([facility]) Papillary thyroid carcinoma ([facility]/HCC) 07/2021 Post-surgical hypothyroidism ([facility]) Vitamin D deficiency, unspecified HISTORY PAST MEDICAL HISTORY SOCIAL HISTORY Past Medical History: Diagnosis Date Dietary counseling and surveillance Morbid obesity with body mass index (BMI) of 40.0 to 49.9 ([facility]/HCC) Papillary thyroid carcinoma ([facility]/HCC) 07/2021 left side Jul 2021, Completion sx November 2021 Post-surgical hypothyroidism ([facility]) Vitamin D deficiency, unspecified Social History Tobacco [...] nursing note reviewed. Exam conducted with a first dyer present. Vitals: Estimated body mass index is [...] of heavy periods. I have discussed conservative managementvs. surgical management with the patient in detail and patient desires surgical management at this time. Patient will undergo Endometrial Ablation with Anya on 11/10/24. Surgical consents were signed, mmc was reviewed, and patient is to proceed to [facility] OR. Follow Up: Patient is to follow up between 1-2 weeks post operative to assess proper healing and recovery fromprocedure. Documented by Lotus Bailey LPN on behalf of: Jorge Aguilar DO documented in this encounterSalem Memorial District [id number] NoteEntered by TONEY MONTOYA DO on October 31, 2024 14:25:57 EST From: TONEY MONTOYA DO To: [facility] Sent: 10/31/2024 14:25:57 EST Subject: Medication Management Submitted: Complete:omeprazole (omeprazole 40 mg oral delayed release capsule) Signed by TONEY MONTOYA DO 10/31/2024 14:25:00 EST Approved with modifications: omeprazole (OMEPRAZOLE DR 40MG CAP) Take 1 capsule by mouth once daily Qty: 30 cap(s) Days Supply: 30 Refills: 5 Substitutions Allowed Route To Pharmacy - [facility] From: [facility] To: TONEY MONTOYA DO Sent: October 31, 2024 12:02:15 PM STAFF NURSE Subject: Medication Management Due: November 01, 2024 12:11:39 AM STAFF NURSE On Hold Pending Signature Dispensed Drug: omeprazole (omeprazole 40 mg oral delayed release capsule), Take 1 capsule by mouthonce daily Quantity: 30 cap(s) Days Supply: 30 Refills: 0 Substitutions [id number] History of Present illness Narrative* JOAN John - 10/26/2024 2:00 PM EST [facility] [address] [place] [address] Patient: Lauro A Blair Sex: female : [...] pain is moderate. The pain is Worse duringthe day (thoracic pain is the worst with lying). The symptoms are aggravated by sitting, standing, position, lying down, twisting and bending. Stiffness is present In the morning (getting up from lying position). Pertinent negatives include no bladder incontinence, bowel incontinence, chest pain, fe souleymane, leg pain, numbness, tingling or weakness. Risk [...] disease Migraine Neuropathy Obesity Osteoarthritis Thyroid cancer ([facility]) left side but both sides removed Past Surgical History: Procedure Laterality Date APPENDECTOMY FOOT SURGERY x4; plantar fascitis and tarsal tunnel INJECTION BLOCK NERVE MEDIAL BRANCH Bilat L 4/5, 5/1 Bilateral 03/20/2022 Performed by Zeeshan Perry MD at [facility] INJECTION BLOCK NERVE MEDIAL BRANCH Bilat L 4/5,5/ Bilateral 02/06/2022 Performed by Zeeshan Perry MD at [facility] INJECTION BLOCK SACROILIAC JOINT Bilateral 08/11/2024 Performed by Zeeshan Perry MD at [facility] INJECTION BLOCK SACROILIAC JOINT Bilateral 07/09/2023 Performed by Zeeshan Perry MD at [facility] INJECTION BLOCK SACROILIAC JOINT Bilateral 08/07/2022 Performed by Zeeshan Perry MD at [facility] INJECTION MEDIAL BRANCH NERVE BLOCK Bialteral L 3/4, 4/5 Medial Branhc Block X 1 Bilateral 05/07/2017 Performed by Zeeshan Perry MD at [facility] MEDIAL BRANCH NERVE BLOCK BILATERAL L3/4, 4/5 Bilateral 10/22/2017 Performed by Zeeshan Perry MD at [facility] KNEE ARTHROSCOPY W/ MENISCECTOMY Left 11/2022 OSTEOTOMY KELTON PROCEDURE METATARSAL Right 02/11/2018 Performed by Hector Watson DPM at [facility] RADIOFREQUENCY ABLATION SPINAL left L 4/5, 5/ Left 05/15/2022 Performed by Zeeshan Perry MD at [facility] RADIOFREQUENCY ABLATION SPINAL right L 4/5,5/1 Right 04/24/2022 Performed by Zeeshan Perry MD at [facility] RADIOFREQUENCY ABLATION SPINAL: right L34 45 rfa Right 03/11/2018 Performed by Zeeshan Perry MD at [facility] SPINE SURGERY 09/06/2009 L5/S1 diskectomy [...] during discussion, demonstrated appropriate cognitive reasoning and understandingof the medical condition by asking appropriate questions [...] spine and paraspinal musculature. Pain is elicited withflexion, extension, and lateral rotation of the lumbar [...] procedure was described in detail to the patientas well as the potential benefits of pain [...] monitoring for toxicity We do not currently prescribeany controlled substance from this practice. It is noted that the patient did have good response from the previously performed procedure. It is felt that the patient would benefit from an additional procedure of the same nature in that the samesymptoms have returned. It is hopeful that this [...] would also help these symptoms. The patient isoptimistic about the treatment plan we have laid [...] described in the documentation, as scribed by aZinab Robles CNA in my presence, and it is both accurate and complete. Zainab Robles CNA 10/26/24 1434 JOAN John 10/31/24 1146 documented in this encounterTwin City HospitalLIFESYNC HOLDINGS02-20-2025 Instructions* Patient Instructions* Zainab Robles CNA - 10/26/2024 2:00 PM [...] take you to the nearest emergency room. Tellthe emergency room staff that you recently had a spine injection. A doctor must evaluate you for bleeding and injection complications. If you lose control over bowel, bladder, or legs: Go to the nearest emergency room. documented in this encounterMemorial Hospital02-03-2025 NoteEntered by TONEY MONTOYA DO on October 09, 2024 07:30:49 EST From: TONEY MONTOYA DO To: [place] [address] Sent: 10/09/2024 07:30:49 EST Subject: Medication Management Submitted: Complete:busPIRone (busPIRone 10 mg oral tablet) Signed by TONEY MONTOYA DO 10/09/2024 07:30:00 EST Approved with modifications: busPIRone (busPIRone HCl 10 MG Oral Tablet) Take 1 tablet by mouth twice daily as needed Qty: 60 tab(s) Days Supply: 30 Refills: 2 Substitutions Allowed Route To Pharmacy - [place] [address] From: [place] [address] To: TONEY MONTOYA DO Sent: October 06, 2024 12:01:36 PM STAFF NURSE Subject: Medication Management Due: October 07, 2024 12:04:38 AM STAFF NURSE On Hold Pending Signature Dispensed Drug: busPIRone (busPIRone 10 mg oral tablet), Take 1 tablet by mouth twice daily as needed Quantity: 60 tab(s) Days Supply: 30 Refills: 0 Substitutions [id number] History of Present illness Narrative* Lotus Bailey, SUSTAINABLE DESIGN COORDINATOR - 09/19/2024 1:10 PM EST Reason for Appointment: Patient ID: Lauro Pinto [...] Papillary thyroid carcinoma (CMS/HCC) 07/2021 Post-surgical hypothyroidism (CMS/[facility]) Vitamin D deficiency, unspecified HISTORY PAST MEDICAL [...] nursing note reviewed. Exam conducted with a first dyer present. Vitals: Estimated body mass index is [...] of: Jorge Aguilar DO documented in this encounterSalem Memorial District [id number] History of Present illness Narrative* Thi Stephens MD - 09/11/2024 11:40 AM EST Lauro Pinto is a 49 y.o. female [...] 08/2022 follow up visit on 08/18/2022 on 200+22=111 mcg daily. no new lab yet. HPI: 01/2022 New patient sent from Dr. Edy Dominguez, the surgeon, with the surgery for her twice in [facility] in [place], first one in left lobe for thyroid cancer, papillary, in July 2021. She doesnot remember if had been told if she needed radioactive treatment. Then, completion surgery done inNovember 2021, and ultrasound done of that, no lymphadenopathy. She is currently on 200 Euthyrox. She takes it without other medication. The pathology report on her right side normal. I do not have the pathology report left side. [id number], largest foci 0.8 cm. SUBJECTIVE: MEDICATIONS: Current [...] 3 months (around 12/10/2024). documented in this encounterSalem Memorial District [id number] History of Present illness Narrative* JOAN John - 09/07/2024 2:30 PM EST [facility] [address] [place] [address] Patient: Lauro Pinto Sex: female : 1975 [...] (ice, heat, bed rest, home exercises, NSAIDs, mu scle relaxant and walking (Previous injections, PT/Water therapy [...] 02/06/2022 Performed by Zeeshan Perry MD at [facility] INJECTION BLOCK SACROILIAC JOINT Bilateral 08/11/2024 Performed by Zeeshan Perry MD at [facility] INJECTION BLOCK SACROILIAC JOINT Bilateral 07/09/2023 Performed by Zeeshan Perry MD at [facility] INJECTION BLOCK SACROILIAC JOINT Bilateral 08/07/2022 Performed by Zeeshan Perry MD at [facility] MEDIAL BRANCH NERVE BLOCK Bialteral L 3/4, 4/5 Medial Branhc Block X 1 Bilateral 05/07/2017 Performed by Zeeshan Perry MD at [facility] MEDIAL BRANCH NERVE BLOCK BILATERAL L3/4, 4/5 Bilateral 10/22/2017 Performed by Zeeshan Perry MD at [facility] KNEE ARTHROSCOPY W/ MENISCECTOMY Left 11/2022 OSTEOTOMY KELTON PROCEDURE METATARSAL Right 02/11/2018 Performed by Hector Watson DPM at [facility] RADIOFREQUENCY ABLATION SPINAL left L 4/5, 5/1 Left 05/15/2022 Performed by Zeeshan Perry MD at [facility] RADIOFREQUENCY ABLATION SPINAL right L 4/5,5/1 Right 04/24/2022 Performed by Zeeshan Perry MD at [facility] RADIOFREQUENCY ABLATION SPINAL: right L34 45 rfa Right 03/11/2018 Performed by Zeeshan Perry MD at [facility] SPINE SURGERY 09/06/2009 L5/S1 diskectomy [...] during discussion, demonstrated appropriate cognitive reasoning and understandingof the medical condition by asking appropriate questions [...] spine and paraspinal musculature. Pain is elicited withflexion, extension, and lateral rotation of the lumbar [...] monitoring for toxicity We do not currently prescribeany controlled substance from this practice. It does appear that the patient benefited from the previous injection and the benefit has continuedthrough this visit. At this time, we will monitor the patient s symptoms from an interventional standpoint and consider another injection in the future if the patient s symptoms return or intensify severely. The patient was made aware that they should call if symptoms worsen or if their pain beginsto have a negative impact on their quality [...] Robles CNA 09/07/24 1507 documented in this encounterMemorial Hospital12-04-2024 Miscellaneous Notes* Telephone Encounter - Lata Mary RN - 08/09/2024 12:58 PM EST Pt calls asking if she can still [...] if she can proceed with procedure. PVU * Telephone Encounter - Marysol Smith PA-C - 08/09/2024 12:58 PM EST noted documented in this encounterMemorial Hospital12-04-2024 Telephone encounter Note* Telephone Encounter - Lata Mary RN - 08/09/2024 12:58 PM EST Pt calls asking if she can still [...] if she can proceed with procedure. [facility]12-[facility] Telephone encounter Note* Telephone Encounter - Marysol Smith PA-C - 08/09/2024 12:58 PM EST noted [facility]11[facility] Note [id number]-2024 [facility] SURGERY Clinical Discharge Summary PERSON INFORMATION Name LAURO PINTO Age 49 Years 1975 Sex FEMALE Language Yoruba PCP TONEY MONTOYA DO Marital Status Single Med Service Ambulatory Surgery Acct# Arrival 07/25/2024 06:22:59 Visit Reason SURGERY - EGD AND COLONOSCOPY - ANEMIA AND FAMILY HX COLON CANCER Acuity LOS 019 02:30 Address: [address] [place] [id number] Comment: PROVIDER INFORMATION VITALS INFORMATION Vital Sign [...] Follow up: With: Address: When: Korey Ford [address] [place] [address], [place] [address] [place] ([place]) , only if needed With: Address: When: TONEY MONTOYA DIAGNOSIS 1:Microcytic anemia Comment: [place] [facility]11-01-2024 NoteEntered by TONEY MONTOYA DO on July 07, 2024 16:49:08 EDT From: TONEY MONTOYA DO To: [place] [address] Sent: 07/07/2024 16:49:08 EDT Subject: Medication Management Submitted: Complete:amitriptyline (amitriptyline 100 mg oral tablet) Signed by TONEY MONTOYA DO 07/07/2024 16:49:00 EDT Approved with modifications: amitriptyline (Amitriptyline HCl 100 MG Oral Tablet) TAKE 1 TABLET BY MOUTH ONCE DAILY AT BEDTIME Qty: 30 tab(s) Days Supply: 30 Refills: 5 Substitutions Allowed Route To Pharmacy - [place] [address] From: [place] [address] To: TONEY MONTOYA DO Sent: July 07, 2024 4:41:06 AM CDT Subject: Medication Management Due: July 08, 2024 12:19:20 AM CDT On Hold Pending Signature Dispensed Drug: amitriptyline (amitriptyline 100 mg oral tablet), TAKE 1 TABLET BY MOUTH ONCE DAILYAT BEDTIME Quantity: 30 tab(s) Days Supply: 30 Refills: 0 Substitutions [facility]owed [id number] Miscellaneous Notes* Telephone Encounter - Naila Wheeler - 05/29/2024 1:04 PM EDT Insurance called requesting further clinical information regarding procedure that was requested. They stated Case not meeting criteria for requested procedure because: The notes do not show that theprevious injection met requirements for 50% and 3 months duration of relief. How do you want to pro ceed? * Telephone Encounter - JOAN John - 05/29/2024 1:04 PM EDT Chart please * Telephone Encounter - JOAN John - 05/29/2024 1:04 PM EDT Please call pt and ask how much relief she had after SI injection last year. I can do appeal if shehad greater than 50%. * Telephone Encounter - Naila Wheeler - 05/29/2024 1:04 PM EDT Called patient and she reported that 30% was a mistake. She claims she received at least 50% temporary relief. * Telephone Encounter - JOAN John - 05/29/2024 1:04 PM EDT May appeal: It is noted that the patient last completed a bilateral SI joint injection in July of 2023 which resulted in at least 50% pain reduction that led to considerable improvements in ADL performance and quality of life. This result lasted for over 6 months. As a result, it is felt that repeat SI injection is medically necessary. * Telephone Encounter - Naila Wheeler - 05/29/2024 1:04 PM EDT Date of service changed for patient. Could not change date of service with insurance so a new authorization needed to be submitted. New auth is pending further medical review. Insurance states The notes do not show Low back pain below L5 without radiculopathy. Clinicals have been submitted. Waiting response from insurance. * Telephone Encounter - Naila Wheeler - 05/29/2024 1:04 PM EDT Auth came back approved. [facility] [address] [id number] Telephone encounter Note* Telephone Encounter - Naila Wheeler - 05/29/2024 1:04 PM EDT Insurance called requesting further clinical information regarding procedure that was requested. They stated Case not meeting criteria for requested procedure because: The notes do not show that theprevious injection met requirements for 50% and 3 months duration of relief. How do you want to pro ceed? [facility] [address] [id number] Telephone encounter Note* Telephone Encounter - JOAN John - 05/29/2024 1:04 PM EDT Chart please [facility]Qn[facility] [id number] Telephone encounter Note* Telephone Encounter - JOAN John - 05/29/2024 1:04 PM EDT Please call pt and ask how much relief she had after SI injection last year. I can do appeal if shehad greater than 50%. [facility] [address] [id number] Telephone encounter Note* Telephone Encounter - Naila Wheeler - 05/29/2024 1:04 PM EDT Called patient and she reported that 30% was a mistake. She claims she received at least 50% temporary relief. [facility]Qn[facility] [id number] Telephone encounter Note* Telephone Encounter - JOAN John - 05/29/2024 1:04 PM EDT May appeal: It is noted that the patient last completed a bilateral SI joint injection in July of 2023 which resulted in at least 50% pain reduction that led to considerable improvements in ADL performance and quality of life. This result lasted for over 6 months. As a result, it is felt that repeat SI injection is medically necessary. [facility]09-[facility] Telephone encounter Note* Telephone Encounter - Naila Wheeler - 05/29/2024 1:04 PM EDT Date of service changed for patient. Could not change date of service with insurance so a new authorization needed to be submitted. New auth is pending further medical review. Insurance states The notes do not show Low back pain below L5 without radiculopathy. Clinicals have been submitted. Waiting response from insurance. [facility]09-[facility] Telephone encounter Note* Telephone Encounter - Naila Wheeler - 05/29/2024 1:04 PM EDT Auth came back approved. [facility]09-12-[facility] History of Present illness Narrative* JOAN John - 05/18/2024 10:45 AM EDT [facility] [address] [place] [address] Patient: Lauro Pinto Sex: female : 1975 Age: 49 y.o. PCP: TONEY MONTOYA DO 05/18/2024 Lauro Pinto is here for a(n) [...] muscle relaxant and walking (Previous injections, PT/Water therapy(06/2021), Nsaidsx2, tizanadine, tyl, topical, mobic, tramadol) for [...] 03/20/2022 Performed by Zeeshan Perry MD at [facility] INJECTION BLOCK NERVE MEDIAL BRANCH Bilat L 4/5,5/ Bilateral 02/06/2022 Performed by Zeeshan Perry MD at [facility] INJECTION BLOCK SACROILIAC JOINT Bilateral 07/09/2023 Performed by Zeeshan Perry MD at [facility] INJECTION BLOCK SACROILIAC JOINT Bilateral 08/07/2022 Performed by Zeeshan Perry MD at [facility] INJECTION MEDIAL BRANCH NERVE BLOCK Bialteral L 3/4, 4/5 Medial Branhc Block X 1 Bilateral 05/07/2017 Performed by Zeeshan Perry MD at [facility] INJECTION MEDIAL BRANCH NERVE BLOCK BILATERAL L3/4, 4/5 Bilateral 10/22/2017 Performed by Zeeshan Perry MD at [facility] KNEE ARTHROSCOPY W/ MENISCECTOMY Left 11/2022 OSTEOTOMY KELTON PROCEDURE METATARSAL Right 02/11/2018 Performed by Hector Watson DPM at [facility] RADIOFREQUENCY ABLATION SPINAL left L 4/5, 5/1 Left 05/15/2022 Performed by Zeeshan Perry MD at [facility] RADIOFREQUENCY ABLATION SPINAL right L 4/5,5/ Right 04/24/2022 Performed by Zeeshan Perry MD at [facility] RADIOFREQUENCY ABLATION SPINAL: right L34 45 rfa Right 03/11/2018 Performed by Zeeshan Perry MD at [facility] SPINE SURGERY 09/06/2009 L5/S1 diskectomy [...] during discussion, demonstrated appropriate cognitive reasoning and understandingof the medical condition by asking appropriate questions [...] procedure was described in detail to the patientas well as the potential benefits of pain [...] monitoring for toxicity We do not currently prescribeany controlled substance from this practice. It is noted that the patient did have good response from the previously performed procedure. It is felt that the patient would benefit from an additional procedure of the same nature in that the samesymptoms have returned. It is hopeful that this [...] would also help these symptoms. The patient isoptimistic about the treatment plan we have laid [...] JOAN John 05/18/24 1340 documented [facility] [id number] Instructions* Patient Instructions* Zainab Robles CNA - 05/18/2024 10:45 AM [...] take you to the nearest emergency room. Tellthe emergency room staff that you recently had a spine injection. A doctor must evaluate you for bleeding and injection complications. If you lose control over bowel, bladder, or legs: Go to the nearest emergency room. 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 Completion right thyroidectomy with [...] Completion Last Updated: 04-Dec-2021 09:55 by Edy Dominguez)[facility] [place] NoteHistory of Present Illness: /Lactating: Are You no Are You Currently Breastfeedingno History Present Illness: Reason for surgery: Thyroid cancer - completion thyroidectomy HPI: Surgery: Completion Right Thyroidectomy Name: Lauro Pinto ([id number]) Surgeon: Edy Dominguez MD Age: 46 Date [...] the note. I personally evaluated the patient [id number] Electronic Signatures: Modesto Blackburn (Resident)) (Signed 04-Dec-2021 04:52) Authored: History of Present Illness, Allergies, Home Medication Review, Impression/Procedure, ERAS, Physical Exam, Consent, Note Completion Edy Dominguez) (Signed 04-Dec-2021 05:52) Authored: History of Present Illness, Note Completion Co-Signer: History of Present Illness, Allergies, Home Medication Review, Impression/Procedure, ERAS, Physical Exam, Consent, Note Completion Last Updated: 04-Dec-2021 05:52 by Edy Dominguez)[facility] [place] Evaluation note* Encounter Date Diagnosis Assessment Notes Treatment Notes Treatment Clinical Notes Aug, Cough (ICD-10 - R05.9) Aug,OVID-19 (ICD-10 - U07.1) Drink plenty fluids, get plenty of rest. Continue home medications as prescribed. Use the albuterolinhaler as prescribed as needed for cough or shortness of breath. Follow-up with your family physician if no improvement in 2 to 3 days [employer] Other 11-05-2021 NoteSend Summary: Discharge Summary Providers: [...] Completion Last Updated: 11-Jul-2021 06:09 by Edy Dominguez)[facility] [place] NotePROCEDURE DETAILS Preoperative Diagnosis: Left thyroid nodule Postoperative Diagnosis: Left thyroid nodule Surgeon: Edy Dominguez Resident/Fellow/Other Protection Engineer: Juan Becerra Procedure: 1. Left hemithyroidectomy with [...] was identified, isolated, clipped, and cut. A [place] was placed on the superior pole being [...] Completion Last Updated: 10-Jul-2021 13:54 by Edy Dominguez)[facility] [place] NoteHistory & Physical [...] the note. I personally evaluated the patient [id number] Electronic Signatures: Juan Becerra (Resident)) (Signed 10-Jul-2021 07:14) Authored: History & Physical Reviewed, ERAS, Consent, Note Completion Edy Dominguez) (Signed 10-Jul-2021 08:58) Authored: Note Completion Co-Signer: History & Physical Reviewed, ERAS, Consent, Note Completion Last Updated: 10-Jul-2021 08:58 by Edy Dominguez)[facility] [place] History of Present [...] morning. She has not developed any symptoms LH-Tdfxhgzvaeurni-Jhjhpgap Work Phone: 1(246) 275-488708-29-2021 History of Present illness Narrative* 46-year-old female [...] rts social alcohol use. [facility] Work Phone: Evaluation noteNo assessment information available [facility] Work Phone: Evaluation note* Diagnosis Lumbosacral spondylosis without myelopathy- Primary [facility] Diagnosis Postprocedural hypothyroidism Postsurgical hypothyroidism Malignant neoplasm of thyroid gland (CMS-HCC) Malignant neoplasm of thyroid gland [facility]* Diagnosis Postoperative hypothyroidism (CMS/HCC)- Primary Postsurgical hypothyroidism Papillary thyroid carcinoma (CMS/HCC) Vitamin D deficiency Encounter for dietary consultation Class 3 severe obesity due to excess calories without serious comorbidity with body mass index (BMI) of 40.0 to 44.9 in adult (CMS/HCC) documented in this encounter [facility]* Diagnosis Dysfunctional uterine bleeding Other disorder of menstruation and other abnormal bleeding from female genital tract Iron deficiency anemia, unspecified iron deficiency anemia type documented in this encounter [facility] note* Diagnosis Disorder of sacrum- Primary Disorders of sacrum Disorder of sacrum- Primary Disorders of sacrum Disorder of sacrum Disorders of sacrum documented [facility]* Diagnosis Disorder of sacrum- Primary Disorders of sacrum Disorder of sacrum- Primary Disorders of sacrum Disorder of sacrum Disorders of sacrum documented [facility]* Diagnosis Dysfunctional uterine bleeding Other disorder of menstruation and other abnormal bleeding from female genital tract Pre-operative exam Unspecified pre-operative examination documented in this encounter [facility]* Diagnosis Lumbar spondylosis- Primary Lumbosacral spondylosis without myelopathy documented [facility]* Diagnosis Postoperative hypothyroidism- Primary Postsurgical hypothyroidism Papillary thyroid carcinoma (HCC) Vitamin D deficiency Encounter for dietary consultation Class 3 severe obesity due to excess calories without serious comorbidity with body mass index (BMI) of 40.0 to 44.9 in adult ([facility]-HCC) documented in this encounter [facility] HealthcareEvaluation note* Diagnosis Disorder of sacrum- Primary Disorders of sacrum Disorder of sacrum- Primary Disorders of sacrum Disorder of sacrum Disorders of sacrum documented [facility]* Diagnosis Dysfunctional uterine bleeding Other disorder of menstruation and other abnormal bleeding from female genital tract documented in this encounter [facility] note* Diagnosis Pre-op examination Menorrhagia with regular cycle Pelvic pain Dysmenorrhea Dyspareunia in female Well woman exam with routine gynecological exam Routine gynecological examination Breast cancer screening by mammogram documented in this encounter [facility] note* Diagnosis Lumbosacral spondylosis without myelopathy- Primary [facility] general Narrative - Reported* Type Description Date Medical History heartburn Medical Historypulmonary embolismSurgical HistorytonsillectomySurgical History umbilical hernia repairSurgical HistoryappendectomySurgical Historytubal ligationSurgical Historyback surgery r2Jreoyoal Historyright foot x5 Hospitalization Historysee above [employer] Other History of Present illness Narrative* 46-year-old [...] has not noticed any change in symptoms BU-Twypohrlaghsgd-Spylpevs Work Phone: History of Present illness NarrativePatient presents today after hemithyroidectomy. Final pathology pending. Doing well since her surgery. No issues with voice or gediwemwawEJ-Bfhgnsbmimzycp-Vpvnuvdr Work Phone: History of Present illness NarrativePatient presents today to discuss completion thyroidectomy. 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 She has been doing well and has not had any significant changes. No issues with voice or koztiuupmeJP-Tlqxxiyndnnmjx-Ugraathi [address] Work Phone: History of Present illness NarrativePatient presents today for follow up after completion thyroidectomy. Pathology after initial surgery showed multifocal carcinoma. No cancer identified on completion. She has been doing well No issueswith voice or bnneovylvwCS-Jeijtnjydjkmdo-Bkhtnqxs Work Phone: InstructionsNot on filedocumented in this encounter [facility] filedocumented in this encounter [facility]Not on filedocumented in this encounter [facility]ructionsNot on filedocumented in this encounter [facility] SystemInstructionsNot on filedocumented in this encounter [facility] SystemInstructionsNot on filedocumented in this encounter [facility] [address] System Summary Purpose Family History No Family History Records Found Relationship Condition Age at Onset Recorded Date/T margot mother Diabetes mellitus Unknown Advance Directives No Advanced Directives Records Found Advance Directive Response Recorded Date/ Time Advance Directives No November 10 1:38pm Chief Complaint Goiter, thyroid noduleGoiter, thyroid noduleGoiter, thyroid nodulepostopf/u thyroid cancerf/u thyroid cancer Reason for Referral SpecialtyDiagnoses / ProceduresReferred By ContactReferred To Contact Diagnoses Disorder of sacrum Procedures Case request operating room: INJECTION BLOCK SACROILIAC JOINT Kyler Carvajal, JOAN [address], [address] [place] [address] Referral IDStatusReasonStart DateExpiration DateVisits RequestedVisits [id number] Review/ Additional Source Comments INFORMATION SOURCE (unrecogn ized section and content) DATE CREATED AUTHOR 03/02/2018 [facility] [place] DATE CREATED AUTHOR AUTHOR'S ORGANIZ ATION 10/03/2020 [facility] DATE CREATED AUTHOR AUTHOR'S ORGANIZ ATION 12/13/2021 [facility] [place] DATE CREATED AUTHOR AUTHOR'S ORGANIZ ATION 12/21/2021 [facility] DATE CREATED AUTHOR AUTHOR'S ORGANIZ ATION 03/27/2022 [employer] DATE CREATED AUTHOR AUTHOR'S ORGANIZ ATION 11/15/2024 [facility] DATE CREATED AUTHOR AUTHOR'S ORGANIZ ATION 05/30/2025 [facility] DATE CREATED AUTHOR AUTHOR'S ORGANIZ ATION 06/12/2025 [facility] DATE CREATED AUTHOR AUTHOR'S ORGANIZ ATION 06/25/2025 [facility] REASON FOR VISIT (unrecogniz ed section and content) ReasonCommentsBack PainReasonCommentsVaginal BleedinganemiaReasonCommentsBack PainReasonCommentsBack PainKnee PainReasonCommentsVaginal BleedingPre-op Visit ReasonCommentsThyroid ProblemFollow-upReasonCommentsConsult For Hysterectomy Vaginal BleedingReasonCommentsGynecologic ExamPre-op Visit Care Teams (unrecognized sec tion and content) Team Status: Active Member Role Status Dates Sofiya Cole MD Primary Care Provider Active Team Status: Inactive Member Role Status Dates Sofiya Cole MD Primary Care Provider Active Start: July 25, 2024 End: July 25india Ford MDAttending ProviderActiveStart: July 25, 2024 End: July 25, 2024Team MemberRelationshipSpecialtyStart DateEnd Date Toney Montoya DO PCP - GeneralFamily Medicine09/13/20Team MemberRelationshipSpecialtyStart DateEnd Date Toney Montoya DO PCP - GeneralFamily Medicine09/13/20Team MemberRelationshipSpecialtyStart Toney Madsen MD [address] [place] [address] PCP - GeneralFamily Vmboxefy96/4/24Team MemberRelationshipSpecialtyStart Toney Madsen MD [address] [place] [address] PCP - GeneralFamily Uohvohjt73/4/24Team MemberRelationshipSpecialtyStart Toney Madsen MD [address] [place] [address] PCP - GeneralFamily Uonsyrni30/4/24Team MemberRelationshipSpecialtyStToney Chauhan DO [address] [place] [address] PCP - GeneralFamily Medicine09/13/20Team MemberRelationshipSpecialtyStart Toney Madsen DO PCP - GeneralFamily Medicine09/13/20Team MemberRelationshipSpecialtyStart Toney Madsen DO PCP - GeneralFamily Medicine09/13/20Team MemberRelationshipSpecialtyStart Toney Madsen DO PCP - GeneralFamily Medicine09/13/20Team MemberRelationshipSpecialtyStart Toney Madsen MD [address] [place] [address] PCP - GeneralFamily Xlxbjscr64/4/24 Team Status: Inactive Member Role Status Tom Cole MD Primary Care Provider Active Start: November 01, 2024 End: November 01antoni Aguilar DOAttending ProviderActiveStart: November 01, 2024 End: November 01, 2024Team MemberRelationshipSpecialtyStart Toney Madsen MD [address] [place] [address] PCP - GeneralFamily Rfzqoddu84/4/24 Team Status: Inactive Member Role Status Tom Aguilar DO Attending Provider Active Start : November 10, 2024 End: November 10, 2024Team MemberRelationshipSpecialtyStart Toney Madsen DO PCP - GeneralFamily Medicine09/13/20Team MemberRelationshipSpecialtyStart Toney Madsen MD [address] [place] [address] PCP - GeneralFamily Aarusksg53/4/24Team MemberRelationshipSpecialtyStart Toney Madsen MD [address] [place] [address] PCP - GeneralFamily Ixdodtoe27/4/24Team MemberRelationshipSpecialtyStart Toney Madsen MD [address] [place] [address] PCP - GeneralFamily Zbbaixoq64/4/24Team MemberRelationshipSpecialtyStart DateEnd Date Toney Montoya MD [address] [place] [address] PCP - [facility]08/09/24Te MemberRelationshipSpecialtyStart DateEnd Date Toney Montoya MD [address] [place] [address] PCP - [facility]08/09/24Te MemberRelationshipSpecialtyStart DateEnd Date Toney Montoya DO PCP - [facility]09/13/20 Goals (unrecognized section and content) Goals may [...] BE BASED ON THE PRIMARY CLINICAL RECORDS. [facility] [employer] [facility]. provides no warranty or guarantee of the accuracy or completeness of information in this document.
[2025-06-27 06:24] LABS: Hematocrit 42.7 % (36.0-48.0); Hemoglobin 14.0 g/dL (12.0-16.0); Immature Granulocytes Abs Auto 0.03 10^3/uL (0.00-0.03); Immature Granulocytes Pct Auto 0.3 % (0.0-0.5); Lymphocytes Absolute Auto 3.2 10^3/uL (1.2-3.8); Mean Corpuscular HGB Conc 32.8 g/dL (29.9-35.2); Mean Corpuscular Hemoglobin 29.9 pg (26.7-34.0); Mean Corpuscular Volume 91.2 fL (81.0-99.0); Platelet Count 244 10^3/uL (150-450); Red Blood Count 4.68 10^6/uL (4.20-5.40); White Blood Count 11.3 10^3/uL (4.0-11.0)
--- NOTE | 2025-06-27 07:31 | PC.NURSE ---
0640- While interviewing patient pre-operatively patient states there is a family history or malignant hyperthermia. OR staff notified. (0703) Dr. Aguilar notified of lab results from this am. (0710) Jonathan into room and assesses patient. Lung sounds are clear. (4730) PCXR completed. Patient tolerated it well. Sukhjinder Huerta BUSINESS DIVISION CHAIR at patient and talks with patient about past medical history.
--- NOTE | 2025-06-27 07:33 | XR_ITS ---
[place] [id number] Patient Name: LAURO TRAVIS MRN: [id number] date: 1975 Sex: F Assigned Patient Location: [facility] Current Patient Location: [facility] Accession/Order Number: [id number] Exam Date: 06/27/2025 07:28 Report Date: 06/27/2025 08:13 At the request of: ISAI QUINN DO Procedure: XR chest 1V XR chest 1V 06/27/2025 7:34 AM SIGNS AND SYMPTOMS: ^pre op PROTOCOL: Frontal radiograph of the chest COMPARISON: 08/28/2020 FINDINGS: The trachea is midline. The heart and mediastinal structures are within normal limits. The lung parenchyma is clear. The bony thorax is intact. XR/XR chest 1V IMPRESSION: No acute cardiopulmonary pathology. Impression dictated by: Juan Gerard M.D. 06/27/2025 8:13 AM Dictation Location: [place] [address] Electronically authenticated by: [id number] Y Date: 06/27/2025 08:13
[2025-06-27] MEDS: CEFAZOLIN SODIUM 2 GM/50 ML D5W PREMIX IV (08:18)
--- NOTE | 2025-06-27 08:23 | PC.NURSE ---
0725- Xray cleared per Radiologist.
--- NOTE | 2025-06-27 11:38 | P.ON_ITS ---
Brief Operative Note Date of procedure: 07/03/25 Pre-op diagnosis general: menorrhagia, dysparuenia, dysmenorrhea, pelvic pain Post-op diagnosis: same as pre-op Procedure: NAME OF PROCEDURE: [ ]attempted robotic hysterectomy converted to supracervical abdominal hysterectomy with cystoscopy. PROCEDURE:? The patient was taken back to the operating room, where she was prepped and draped in the normal sterile fashion after being placed in the dorsal lithotomy position.? Patient?s anesthesia was found to be adequate.? Surgical timeout was performed using two patient identifiers.? SCDs were on and in place.? Two grams of Ancef were given prior to the surgery.? Sterile Oneill catheter was inserted.? Standard size VCare was secured to the uterine cervix and the surgeon changed gloves.? Attention then was turned to the patient's abdomen, where a supraumbilical incision was then made.? Two S retractors were used to identify the patient?s fascia.? The fascia was then tented up using Gerson clamps and the patient?s fascia was incised sharply.? Patient?s abdomen was identified and entered bluntly.? The patient had the trocar placed and a pneumoperitoneum was obtained.? Approximately 4 liters of CO2 gas was used.? The camera was then placed through the trocar.? At this time, two robot trocars were placed in the patient?s left and right side, two hand widths from the midline, and this was placed under direct visualization.? upon visualization of the patients anatomy she was found to have pelvic adhesions from prior infection, dt distorted anatomy it was decided that abdominal approach would be the safer route. A Pfannenstiel skin incision was then made 2 cm above the symphysis and pubis and carried down to underlying rectus fascia using a Bovie. The fascia was incised in the midline and extended bilaterally using Kasper scissors. Two Gerson clamps were placed on the superior aspect of the fascia and dissected off the underlying rectus muscle. The same was performed on the inferior aspect as well. The muscle was then in the midline. The peritoneum was identified and entered bluntly. Peritoneum was then extended superiorly and inferiorly with good visualization of the bladder. An Dary'Orcncynw-B-Nspdfb retractor was placed into the patient's abdomen. The bowel was packed away with moist laparotomy sponges and the bladder blade was inserted. A Leahey tenaculum was placed on the patient's uterus and used for retraction. LigaSure apparatus was then used to come across the mesosalpingx from the fimbriated end to the uteroovarian ligament on the patient's right side which was then cauterized and transected. This was carried down serially through the broad ligament and across the round ligament. The bladder flap was then created using the Metzenbaum scissors, and the bladder was sharply dissected off the patient's lower uterine segment, however due to nature of pelvic adhesions affecting the bladder as supracervical hysterectomy was performed to prevent bladder injury. A curved Mattie was placed across the uterine artery on the right side which was clamped, transected, and suture ligated using #0 Monocryl. This was performed on the contralateral side as well. Excellent hemostasis was assured the uterus was then amputated and the cervical stump was closed using 0-pds. The patient's abdomen was copiously irrigated using warm saline. Cystoscopy was performed. Bladder was intact. Efflux was noted from both ostia. Cystoscope was removed.After excellent hemostasis was assured, all instruments were removed from the patient's abdomen. The patient's peritoneum was closed using 3-0 Vicryl in a running fashion. The patient's fascia was closed using #0 Vicryl in a running fashion. The patient's skin was closed using 4-0 vicryl on a kishor needle. The patient tolerated the procedure well. Sponge, lap, and needle counts were correct times two. Patient taken to the Recovery Room in stable condition Anesthesia: EMERALD Surgeon: Jorge Aguilar Resaw Machine Operator: Merissa Denis Estimated blood loss (mL): 100 Pathology: other (uterus and tubes) Condition: stable Disposition: floor Urinary Catheter Management Urinary Catheter Management Urethral: Cath placed during this visit: no
[2025-06-27] MEDS: HYDROMORPHONE HCL 0.5 MG/0.5 ML SYRINGE IV (12:51)
--- NOTE | 2025-06-27 13:07 | PC.NURSE ---
blood pressures were going a little higher than when patient arrived to PACU. This clinical writer moved and readjusted blood pressure cuff with a great response. blood pressure down to 111/81
[2025-06-27] MEDS: OXYCODONE HCL/ACETAMINOPHEN 5MG/325MG 2 TAB PO ×2 (15:53→22:22)
[2025-06-27] MEDS: CEFAZOLIN SODIUM/DEXTROSE,ISO 2 GM/50 ML PIGGYBACK IV ×2 (15:53→21:11)
[2025-06-27] MEDS: DOCUSATE SODIUM 100 MG CAPSULE PO (15:54)
[2025-06-27] MEDS: ENOXAPARIN SODIUM 40 MG/0.4 ML SYRINGE SUBQ (21:11)
[2025-06-27] MEDS: TEMAZEPAM 15 MG CAPSULE 30 MG PO (23:56)
[2025-06-28 03:59] VITALS: BP 109/70; PULSE 84; TEMP 37.2; O2SAT 91
[2025-06-28] MEDS: DOCUSATE SODIUM 100 MG CAPSULE PO (05:09)
[2025-06-28] MEDS: OXYCODONE HCL/ACETAMINOPHEN 5MG/325MG 2 TAB PO (05:09)
[2025-06-28 05:35] LABS: Hematocrit 38.1 % (36.0-48.0); Hemoglobin 12.4 g/dL (12.0-16.0); Immature Granulocytes Abs Auto 0.09 10^3/uL (0.00-0.03); Immature Granulocytes Pct Auto 0.5 % (0.0-0.5); Lymphocytes Absolute Auto 0.8 10^3/uL (1.2-3.8); Mean Corpuscular HGB Conc 32.5 g/dL (29.9-35.2); Mean Corpuscular Hemoglobin 29.7 pg (26.7-34.0); Mean Corpuscular Volume 91.1 fL (81.0-99.0); Platelet Count 213 10^3/uL (150-450); Red Blood Count 4.18 10^6/uL (4.20-5.40); White Blood Count 17.8 10^3/uL (4.0-11.0)
[2025-06-28 07:35] VITALS: BP 123/73; PULSE 83; TEMP 36.9; O2SAT 93
[2025-06-28] MEDS: KETOROLAC TROMETHAMINE 30 MG/ML VIAL IVP (08:35)
[2025-06-28] MEDS: MAGNESIUM HYDROXIDE 2,400 MG/10 ML ORAL.SUSP 2400 MG PO (08:35)
[2025-06-28] MEDS: SIMETHICONE 80 MG TAB.CHEW PO (08:35)
[2025-06-28 11:13] VITALS: BP 113/71; PULSE 78; TEMP 37; O2SAT 93
[2025-06-28] MEDS: IBUPROFEN 400 MG TABLET 800 MG PO (11:23)
[2025-06-28 11:25] VITALS: O2SAT 91
--- NOTE | 2025-06-28 13:55 | P.GYNPN_ITS ---
FRONT DESK CLERK - PN: Subj Post-Op Subjective: patient reports feeling better, patient has no complaints, patient desires discharge, pain is well controlled and patient is tolerating oral intake Exam Constitutional Vital Signs, click to edit/add: Last Vital Signs Temp 98.6 F 06/28/25 11:13 Pulse 78 06/28/25 11:13 Resp 16 06/28/25 11:13 BP 113/71 06/28/25 11:13 Pulse Ox 91 L 06/28/25 11:25 O2 Del Method Room Air 06/28/25 11:25 O2 Flow Rate 3 06/27/25 16:51 Documenting provider has reviewed patient's vital signs: yes Common normals: no apparent distress Respiratory Common normals: normal respiratory effort and clear to auscultation bilaterally Cardio Common normals: regular rate and regular rhythm GI Common normals: Normal to inspection, nondistended, normoactive bowel sounds present Extremity Common normals: no clubbing, cyanosis or edema and no calf tenderness Results Labs Labs: Short CBC 06/28/25 Range/Units 05:25 WBC 17.8 H (4.0-11.0) 10^3/uL Hgb 12.4 (12.0-16.0) g/dL Hct 38.1 (36.0-48.0) % Plt Count 213 (150-450) 10^3/uL FRONT DESK CLERK - A/P Postoperative Procedures: Procedures Operation Date: 06/27/25 07:30 Actual Procedure Side Surgeon p Attempted Robot assisted laparoscopic hysterectomy converted to Supracervical Abdominal Hysterectomy with bilateral salpingectomy and cystoscopy Not Applicable Jorge Aguilar DO Postoperative day: 1 Postoperative status FRONT DESK CLERK: doing well Post-operative plan FRONT DESK CLERK: routine post-op care, advance diet and discharge Fall Risk Details Haskins fall scale risk level: High Fall Risk Current medications: Current Medications Docusate Sodium (Docusate Sodium 100 Mg Capsule) 100 mg PO BID PRN PRN Reason: Constipation Last Admin: 06/28/25 05:09 Dose: 100 mg Enoxaparin Sodium (Enoxaparin Sodium 40 Mg/0.4 Ml Syringe) 40 mg SUBQ Q24H CONSTANCE Last Admin: 06/27/25 21:11 Dose: 40 mg Hydromorphone HCl (Hydromorphone Hcl 0.5 Mg/0.5 Ml Syringe) 0.5 mg IV Q3H PRN PRN Reason: Pain Scale 7-10 Promethazine HCl 25 mg/ Sodium (Chloride) 51 mls @ 204 mls/hr IV Q6H PRN PRN Reason: Nausea And Vomiting Ibuprofen (Ibuprofen 400 Mg Tablet) 800 mg PO Q6H PRN PRN Reason: Pain Last Admin: 06/28/25 11:23 Dose: 800 mg Ketorolac Tromethamine (Ketorolac Tromethamine 30 Mg/Ml Vial) 30 mg IVP Q6H PRN PRN Reason: Pain Last Admin: 06/28/25 08:35 Dose: 30 mg Ondansetron HCl (Ondansetron Pf 4 Mg/2 Ml Vial) 4 mg IV Q6H PRN PRN Reason: Nausea Oxycodone/Acetaminophen (Oxycodone Hcl/Acetaminophen 5mg/325mg) 2 tab PO Q6H PRN PRN Reason: Pain Last Admin: 06/28/25 05:09 Dose: 2 tab Simethicone (Simethicone 80 Mg Tab.Chew) 80 mg PO PCHS PRN PRN Reason: Abdominal Distention Last Admin: 06/28/25 08:35 Dose: 80 mg Temazepam (Temazepam 15 Mg Capsule) 30 mg PO QHS PRN PRN Reason: Sleep Last Admin: 06/27/25 23:56 Dose: 30 mg Time Spent With Patient Time: Total time spent is greater than 50% in coordination of care (as documented) at patient's floor/unit and/or counseling patient: Time with patient: less than 15 minutes Urinary Catheter Management Urinary Catheter Management Urethral: Cath placed during this visit: no
== END 2025-06-28 16:59 | disposition home or self-care (01) ==
LOC: SURGOUT 11:40 → MS 13:27
PROVIDERS: PCP Family Medicine; Visit Provider Obstetrics & Gynecology
PROC: (CPT 58180; principal; 2025-06-27 07:30)
DX: N92.0 Excessive and frequent menstruation with regular cycle (principal); N94.10 Unspecified dyspareunia; N94.6 Dysmenorrhea, unspecified; Z53.31 Laparoscopic surgical procedure converted to open procedure; N73.6 Female pelvic peritoneal adhesions (postinfective); D25.1 Intramural leiomyoma of uterus; N80.201 Endometriosis of right fallopian tube, unspecified depth; Z98.51 Tubal ligation status; Z90.49 Acquired absence of other specified parts of digestive tract; K21.9 Gastro-esophageal reflux disease without esophagitis; E03.9 Hypothyroidism, unspecified; Z85.850 Personal history of malignant neoplasm of thyroid; F41.9 Anxiety disorder, unspecified; F32.A Depression, unspecified
CPT/HCPCS: 58180; 36415; 71045; 84702; 85025; 88307; 94667; 94668; 94761; 96374; 96376; J0131; J0690; J1100; J1171; J1200; J1650; J1885; J2250; J2405; J2704; J3010

== ENCOUNTER 2025-07-04 15:16 | Emergency (ER) | payer MEDICARE, MEDICAID, SELFPAY ==
--- OUTSIDE RECORDS SUMMARY | 2025-06-26 10:33 | XMS_ITS | Encounter Summary ---
Author Organization [facility] tem Address [facility] [id number] [address] [place] [address] Care Team Providers Care Buff Wheel Fabricator Name Role Phone Toney Park DO Primary Care Provider [phone] Encounter Details DateTypeDepartmentCare Team (Latest Contact Info)Wvtchslhnfh11/21/2025 10:33 AM EDT - 06/26/2025 11:59 PM EDTHospital Encounter [facility] - [facility] [address] [place] [address] Abnormal mammogram Discharge Disposition: Home Social History Tobacco UseTypesPacks/DayYears UsedDateSmoking Tobacco: NeverSmokeless Tobacco: NeverAlcohol UseStandard Drinks/WeekCommentsYes0 (1 standard drink = 0.6 oz pure alcohol)SociallyPHQ-2AnswerDate RecordedTotal Snfil4691ChildcareAnswer Date IbyeodrxHglazgnbwNoksovc73/10/2019EmploymentAnswerDate RecordedEmployment Xoywegm4902/13/2019Hunger ScreeningAnswerDate RecordedWithin the past 12 months we worried whether our food would run out before we got money to buy more.Never True06/07/2025Within the past 12 months the food we bought just didn't last and we didn't have money to get more.Never True06/07/2025Purpose - LifeAnswerDate RecordedPurpose and direction in txdxWlsdrwx72/21/2021CommentsNoSex and Gender InformationValueDate RecordedSex Assigned at BirthNot on fileLegal Sex Zmqswx1704/11/2015 11:40 AM EDTGender IdentityNot on fileSexual OrientationNot on filedocumented as of this encounter Medications at Time of Discharge MedicationSigDispense QuantityRefillsLast FilledStart DateEnd Date acetaminophen (TYLENOL EXTRA STRENGTH) 500 mg tablet Take 1 tablet (500 mg total) by mouth every 6 (six) hours as needed for pain. amitriptyline (ELAVIL) 100 mg tablet Take 1 tablet (100 mg total) by mouth once daily at bedtime.05/14/2024 busPIRone (BUSPAR) 10 mg tablet Take 1 tablet (10 mg total) by mouth.04/26/2024 busPIRone (BUSPAR) 5 mg tablet Take 1 tablet (5 mg total) by mouth in the morning. calcium carbonate (OS-CHRIS) 500 mg calcium (1,250 mg) tablet 12/05/2021 cholecalciferol, vitamin D3, 5,000 units tablet Take 1 tablet (5,000 Units total) by mouth in the morning. citalopram (CeleXA) 20 mg tablet Take 1 tablet (20 mg total) by mouth in the morning.04/26/2024 dicyclomine (BENTYL) 20 mg tablet Take 1 tablet (20 mg total) by mouth every 6 (six) hours.08/24/2023 ferrous gluconate (FERGON) 324 mg tablet Take 1 tablet (324 mg total) by mouth daily with breakfast.08/09/2024 ferrous gluconate (FERGON) 324 mg tablet Take 1 tablet (324 mg total) by mouth in the morning.08/07/2024 hydrOXYzine (ATARAX) 10 mg tablet Take 1 tablet (10 mg total) by mouth 3 (three) times a day as needed for anxiety.01/24/2025 levothyroxine sodium (EUTHYROX ORAL) Take 300 mcg by mouth in the morning.01/01/2022 LORazepam (ATIVAN) 0.5 mg tablet Take 1 tablet (0.5 mg total) by mouth in the morning and 1 tablet (0.5 mg total) before bedtime.02/12/2025 meclizine (ANTIVERT) 25 mg tablet meloxicam (MOBIC) 7.5 mg tablet Take 1 tablet (7.5 mg total) by mouth in the morning.06/07/2024 methylPREDNISolone (MEDROL, GEMMA,) 4 mg tablet follow package directions 21 tablet 06/07/2025 mirtazapine (REMERON) 30 mg tablet Take 1 tablet (30 mg total) by mouth once daily at bedtime. omeprazole (PriLOSEC) 40 mg capsule Take 1 capsule (40 mg total) by mouth every morning before breakfast.documented as of this encounter Plan of Treatment DateTypeDepartmentCare Team (Latest Contact Info)Pdmqmbxmvao16/20/2025 1:00 PM ESTOffice Visit [facility] [address] [place] [address] Eros Marr PA [address] [place] [address] documented as of this encounter Procedures Procedure NamePriorityDate/TimeAssociated DiagnosisCommentsUS BREAST RT LIMITED Uzxbwyd0206/26/2025 11:14 AM EDT Abnormal mammogram documented in this encounter Results * Ultrasound breast limited right (06/26/2025 11:14 AM EDT)Anatomical Region LateralityModalityBreastRightUltrasoundSpecimen (Source)Anatomical Location / LateralityCollection Method / VolumeCollection TimeReceived Time06/26/2025 11:21 AM EDT Narrative 06/26/2025 11:24 AM EDT MALI PINTO 1975 [id number] EXAM: US BREAST RT LIMITED, 06/26/2025 10:58 AM CLINICAL INDICATIONS:Abnormal mammogram. . COMPARISON: Baseline screening exam 05/30/2025 TECHNIQUE: Multiple real-time perez-scale images of the right breast were performed. Color Doppler was utilized to assess vascular flow. FINDINGS: There is a benign-appearing cyst present in the right breast just lateral to the retroareolar complex 9:00 position. Benign-appearing lymph nodes demonstrated within the left axilla. IMPRESSION: No imaging evidence of malignancy. BI-RADS: BI-RADS 2 - Benign Recommendation: Routine screening mammogram in 1 year ?? Patient was given the results before leaving the department. Finalized by Mao Betancur DO on 06/26/2025 11:24 AM 2 MAMM 1 YR Procedure Note Mao Betancur DO - 06/26/2025 MALI PINTO 1975 [id number] EXAM: US BREAST RT LIMITED, 06/26/2025 10:58 AM CLINICAL INDICATIONS:Abnormal mammogram. . COMPARISON: Baseline screening exam 05/30/2025 TECHNIQUE: Multiple real-time perez-scale images of the right breast were performed. Color Doppler was utilized to assess vascular flow. FINDINGS: There is a benign-appearing cyst present in the right breast just lateralto the retroareolar complex 9:00 position. Benign-appearing lymph nodes demonstrated within the left axilla. IMPRESSION: No imaging evidence of malignancy. BI-RADS: BI-RADS 2 - Benign Recommendation: Routine screening mammogram in 1 year Patient was given the results before leaving the department. Finalized by Mao Betancur DO on 06/26/2025 11:24 AM 2 MAMM 1 YR Authorizing ProviderResult TypeResult StatusCharezekiel Park DOIMG US ORDERABLES Final Result documented in this encounter Visit Diagnoses Diagnosis Abnormal mammogram Abnormal mammogram, unspecified documented in this encounter Additional Health Concerns AssessmentNoted TimePHQ-9 Depression Total Score: 9:57 AM EDT documented as of this encounter Care Teams Team MemberRelationshipSpecialtyStart DateEnd Date Toney Park DO [address] [place] [address] PCP - GeneralFamily Buqhbylh81/21/25documented as of this encounter
--- OUTSIDE RECORDS SUMMARY | 2025-07-04 14:30 | XMS_ITS | Encounter Summary ---
Author Organization [facility] Address [address] [place] [address] Care Team Providers Care Customer Account Coordinator Name Role Phone House, Toney Melara MD Primary Care Provider [phone] Reason for Visit * ReasonCommentsPost-op Visit1 week post op scheduled lap [facility] [place] converted to [facility] Encounter Details DateTypeDepartmentCare Team (Latest Contact Info)Tauvwqtbbdo99/29/2025 2:30 PM EDTOffice Visit [facility] [address] [place] [phone] Lindsey Collier PA [address] [place] [place] [address] Postoperative examination Social History Tobacco UseTypesPacks/DayYears UsedDateSmoking Tobacco: NeverSmokeless Tobacco: NeverCommentsNoSex and Gender InformationValueDate RecordedSex Assigned at BirthNot on fileLegal LtlPqmtzo04/15/2023 7:23 PM EDTGender IdentityNot on fileSexual OrientationNot on filedocumented as of this encounter Last Filed Vital Signs Vital SignReadingTime TakenCommentsBlood Tboygzoz325/6810 2:43 PM EDT Pulse--Temperature--Respiratory Rate--Oxygen Saturation--Inhaled Oxygen Concentration--Fccraa549 kg (303 lb)07/04/2025 2:43 PM EDTHeight--Body Mass Index39.9806 1:15 PM EDTdocumented in this encounter Progress Notes * JOAN Ledesma - 07/04/2025 2:30 PM EDT Reason for Appointment: Patient ID: Mali Pinto is a 50 y.o. female who presents for Post-op Visit (1 week post op scheduled lap hyst converted to LYUDMILA) Patient presents today for 1 Week Post Op Follow Up appointment. MEDICATIONS Current Outpatient Medications Medication Instructions [...] Nightly omeprazole (PRILOSEC) 40 mg, Daily ALLERGIES Allergies Allergen Reactions Amoxicillin Itching PROBLEMS Active Ambulatory Problems Diagnosis Date Noted No Active Ambulatory Problems Resolved Ambulatory Problems Diagnosis Date Noted No Resolved Ambulatory Problems Past Medical History: Diagnosis Date Dietary counseling and surveillance Morbid obesity with body mass index (BMI) of 40.0 to 49.9 ([facility]) Papillary thyroid carcinoma (HCC) 07/2021 Post-surgical hypothyroidism Vitamin D deficiency, unspecified HISTORY PAST MEDICAL HISTORY SOCIAL HISTORY Past Medical History: Diagnosis Date Dietary counseling and surveillance Morbid obesity with body mass index (BMI) of 40.0 to 49.9 ([facility]) Papillary thyroid carcinoma (HCC) 07/2021 [...] ENDOMETRIAL ABLATION FOOT SURGERY Right [facility] SURGERY ROBOTIC ASSISTED HYSTERECTOMY 06/27/2025 Uterus w/bilateral fallopian tubes, supracervical hysterectomy and bilateral salpingectomy THYROIDECTOMY, PARTIAL Left 07/2021 TONSILLECTOMY TOTAL THYROIDECTOMY Right 11/2021 Papillary thyroid cancer TUBAL LIGATION UMBILICAL HERNIA REPAIR US GUIDED FINE PERCUTANEOUS ASPIRATION 11/14/2020 US GUIDED FINE PERCUTANEOUS ASPIRATION 11/14/2020 REVIEW OF SYSTEMS Review of Systems: Review of Systems Constitutional: Negative. HENT: Negative. Eyes: Negative. Respiratory: Negative. Cardiovascular: Negative. Gastrointestinal: Negative. Genitourinary: Negative. Musculoskeletal: Negative. Skin: Negative. Neurological: Negative. All other systems reviewed and are negative. Hematological: Negative. Endocrine: Negative. Allergic/Immunologic: Negative. OBJECTIVE Objective: Physical Exam Constitutional: Appearance: Normal appearance. She is normal weight. HENT: Head: Normocephalic. Cardiovascular: Rate and Rhythm: Tachycardia present. Rhythm irregular. Pulses: Normal pulses. Pulmonary: Effort: Pulmonary effort is normal. Breath sounds: Normal breath sounds. Abdominal: Palpations: Abdomen is soft. Comments: Incisions are clean and dry., steri strips in place Musculoskeletal: General: Normal range of motion. Neurological: General: No focal deficit present. Mental Status: She is alert and oriented to person, place, and time. Skin: General: Skin is warm. Psychiatric: Mood and Affect: Mood normal. Behavior: Behavior normal. Thought Content: Thought content normal. Judgment: Judgment normal. Vitals and nursing note reviewed. Vitals: Estimated body mass index is 39.98 kg/m?? as calculated from the following: Height as of 02/28/25: 6' 1 . Weight as of this encounter: 303 lb. BP: 128/68 No LMP recorded. Patient has had an ablation. Assessment/Plan ICD-10-CM 1. Postoperative examination Z09 Patient presents for one week follow up post LYUDMILA one week ago. She's states she has been feeling dizzy since her surgery. She states she almost passed out today while showering due to being light headed. Patient is dizzy in office, heart rate increased with sitting and laying back, some skipping ofbeats per patient. Due to pts symptoms we will send to er for evaluation of dizziness. I spoke with DR Berrios, er physician in regards to her being sent for eval. 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 [place] [place] [address] 08/22/2025 1:20 PM ESTOffice Visit [facility] [address] [place] [address] Thi Stephens MD [address] [place] [address] documented as of this encounter Visit Diagnoses Diagnosis Postoperative examination Follow-up examination, following unspecified surgery documented in this encounter Care Teams Team MemberRelationshipSpecialtyStart DateEnd Date Toney Park MD [address] [place] [address] PCP - GeneralFamily Bvfpqmdb20/4/24documented as of this encounter
--- OUTSIDE RECORDS SUMMARY | 2025-07-04 15:26 | XMS_ITS | Clinical Summary ---
Author Organization [employer] tem Address [facility]-[id number] [address] [place] [address] Care Team Providers Care Speech Correction Assistant Name Role Phone Toney Park DO Primary Care Provider [phone] Allergies No known active allergies Medications MedicationSigDispense [...] meniscal tear of left knee11/03/2022 Disorder of zcnekh3107/08/2022 Overview (07/08/2022): Added automatically from request for surgery [id number] Thoracic jbgefrawpojdx62/22/2022Lumbar lpywrsgvpvk44/16/2022Lumbar neuritis 11/19/2021Thyroid etzxdh401BMI 40.0-44.9, adult12/04/2020ight hip pain 07/18/2018 Overview (07/18/2018): Added automatically from request for surgery [id number] Cervical spondylosis without kspnsrajjf58/11/2018Lumbosacral spondylosis without sscpairuip82/07/2017 Encounters DateTypeDepartmentCare IareHkuclctgmwe60/21/2025 10:33 AM EDT - 06/26/2025 11:59 PM EDTHospital Encounter [facility] - Ultrasound [address] [place] [address] Abnormal mammogram Discharge Disposition: Home06/26/20254702Wwliea36/02/2025 1:35 PM EDT - 06/07/2025 11:59 PM EDTHospital Encounter [facility] - Radiology [address] [place] [address] Eros Marr PA Lumbosacral spondylosis without myelopathy Discharge Disposition: Home06/07/2025 1:15 PM EDTOffice Visit [facility] - [facility] Management [facility] [address] [place] [address] Eros Marr PA Lumbosacral spondylosis without myelopathy (Primary Dx)06/06/2025Travel 06/04/20252365Nvujym30/24/2025 2:49 PM EDT - 05/30/2025 11:59 PM EDTHospital Encounter [facility] - Mammography/DEXA Imaging [address] [place] [address] Visit for screening mammogram Discharge Disposition: Home05/29/20251260Auaqot11/07/2025 1:30 PM EDTOffice Visit [facility] [address] [place] [address] Eros Marr PA Lumbosacral spondylosis without myelopathy (Primary Dx)04/12/2025Travelfrom Last 3 Months Family History Medical HistoryRelationNameCommentsNo Known ProblemsFatherCancerMaternal GrandmotherColon cancerMaternal GrandmotherDiabetesMotherRelationNameStatus CommentsFatherAliveMaternal GrandmotherMotherAlive Social History Tobacco UseTypesPacks/DayYears UsedDateSmoking Tobacco: NeverSmokeless Tobacco: Never Tobacco Cessation:Counseling Given: Not Answered Alcohol UseStandard Drinks/WeekCommentsYes0 (1 standard drink = 0.6 oz pure alcohol)SociallyPHQ-2AnswerDate RecordedTotal Huncq3401ChildcareAnswer Date EnljrdziUsvsjgpryFrdpnbk01/10/2019EmploymentAnswerDate RecordedEmployment Odnrjqy0302/13/2019Hunger ScreeningAnswerDate RecordedWithin the past 12 months we worried whether our food would run out before we got money to buy more.Never True06/07/2025Within the past 12 months the food we bought just didn't last and we didn't have money to get more.Never True06/07/2025Purpose - LifeAnswerDate RecordedPurpose and direction in sbecMvwpsqk84/21/2021CommentsNoSex and Gender InformationValueDate RecordedSex Assigned at BirthNot on fileLegal Sex Oxjavj4104/11/2015 11:40 AM EDTGender IdentityNot on fileSexual OrientationNot on file Last Filed Vital Signs Vital SignReadingTime TakenCommentsBlood Jwxcczpa103/7610 1:10 PM EDT Zlyjo223306/07/2025 1:10 PM EJOProslbocnzt58 ??C (96.8 ??F)11/17/2024 11:08 AM EDT Respiratory Dzug6414 1:10 PM EDTOxygen Uuwaorpvmq636%06/07/2025 1:10 PM EDTInhaled Oxygen Concentration--Dxptxh551.1 kg (300 lb)06/07/2025 1:10 PM EDT Ejsvvg880.4 cm (6' 1 )06/07/2025 1:10 PM EDTBody Mass Index39.5806/07/2025 1:10 PM EDT Plan of Treatment DateTypeDepartmentCare Team (Latest Contact Info)Liqopsrouvx85/20/2025 1:00 PM ESTOffice Visit [facility] [address] [place] [phone] Eros Marr PA [address] [place] [address] Health MaintenanceDue DateLast DoneCommentsDepression Bkushxqme68/21/1988Adult BMI Follow Up Plan01/24/1994DTaP,Tdap and Td Vaccines (1 - Tdap)01/24/1995 Influenza Lowjzrc79, 05/23/2019Adult BMI Tcxorkiff61/02/2026 06/07/2025Tobacco Inxzpcwtl34Pap Smear Medical Devices ImplantedTypeAreaManufacturerDevice IdentifierShelf Expiration DateModel / Serial / LotScr Bn Twstof Frs 2.0x13 Ns - Sws13 - [id number] Implanted:Qty: 1 on 02/11/2018 by [facility]ector [facility] DPM [facility]: FootSt[employer]ker [id number] / WS13 / NADescription:WS13 2.0 major thread, 13 mm screw, pitch 0.87 - SCR BN TWSTOF FRS 2.0X13 NS Titanium Fixos 2.0 WS twist off screwsScr Bn Twstof Frs 2.0x15 Ns - Sws15 - [id number] Implanted:Qty: 1 on 02/11/2018 by [facility]ector Watson DPM [facility]: Foot/ WS15 / NADescription:WS15 2.0 major thread, 15 mm screw, pitch 0.87 - SCR BN TWSTOF FRS 2.0X 15 NS Titanium Fixos 2.0 WS twist off screwsLumbar Fusion Hardware Procedures Procedure NamePriorityDate/TimeAssociated DiagnosisCommentsUS BREAST RT LIMITED Ovfsaxn5206/26/2025 11:14 AM EDT Abnormal mammogram XR SPINE LUMBAR 2 OR 3 QPICgxjlqv56/02/2025 1:49 PM EDT Lumbosacral spondylosis without myelopathy MAMM SCREENING BILATERAL W RXZFejmbso80/24/2025 3:08 PM EDT Visit for screening mammogram from Last 3 Months Results * Ultrasound breast limited right (06/26/2025 11:14 AM EDT)Anatomical Region LateralityModalityBreastRightUltrasoundSpecimen (Source)Anatomical Location / LateralityCollection Method / VolumeCollection TimeReceived Time06/26/2025 11:21 AM EDT Narrative 06/26/2025 11:24 AM EDT MALI Brown THADDEUS 1975 [id number] EXAM: US BREAST RT LIMITED, 06/26/2025 10:58 [...] Betancur DO - 06/26/2025 MALI PINTO 1975 [id number] EXAM: US BREAST RT LIMITED, 06/26/2025 10:58 [...] YR Authorizing ProviderResult TypeResult StatusCharles P House [facility] US ORDERABLES Final Result * X-ray spine lumbar [...] on 06/08/2025 10:19 AM Authorizing ProviderResult TypeResult StatusMatthew [facility] DIAGNO[facility]ING ORDERABLESFinal Result * (ABNORMAL) Mammography screening bilateral with CAD (05/30/2025 3:08 PM EDT) Anatomical RegionLateralityModalityBreastBilateralMammographySpecimen (Source) Anatomical Location / LateralityCollection Method / VolumeCollection Time Received Time05/31/2025 12:17 PM EDT Narrative 05/31/2025 12:22 PM EDT MALI Brown THADDEUS 1975 [id number] EXAM: MAMM SCREENING BILATERAL W CAD, 05/30/2025 [...] b ADDITIONAL I FDA Accredited Performing Facility: [facility] - Mammography/DEXA Imaging [address] [facility] [address] Procedure Note Joss Richey MD - 05/31/2025 MALI Brown THADDEUS 1975 [id number] EXAM: MAMM SCREENING BILATERAL W CAD, 05/30/2025 [...] and family medical history was usedcalculate their [facility] Centerer-zi lifetime risk of malignancy. Scores less than20% are not considered high risk per ACR guidelines and patient shouldcontinue with the above recommendation. Finalized by Joss Richey MD on 05/31/2025 12:22 PM 0A b ADDITIONAL I FDA Accredited Performing Facility: [facility] - Mammography/DEXA Imaging [address] [facility] [address] Authorizing ProviderResult TypeResult StatusCharles P House DOIMG MAMMOGRAPHY ORDERABLESFinal Result from Last 3 Months Insurance Care Teams Team MemberRelationshipSpecialtyStart DateEnd Date Toney Park DO [address] [place] [address] PCP - GeneralFamily Txrkzeun36/21/25
--- OUTSIDE RECORDS SUMMARY | 2025-07-04 15:26 | XMS_ITS | Clinical Summary ---
Author Organization [facility] Address [address] [place] [address] Phone Care Team Providers Care Computer Systems Security Analyst Name Role Phone Toney Park DO Primary Care Provider [phone] Social History Tobacco UseTypesPacks/DayYears UsedDateSmoking Tobacco: Never Assessed CommentsUnknownSex and Gender InformationValueDate RecordedSex Assigned at Not on fileLegal PreAatphz85/26/2022 4:58 AM ESTGender IdentityNot on fileSexual OrientationNot on file Last Filed Vital Signs Vital SignReadingTime TakenCommentsBlood Neknjvkq743/8302 9:32 AM EST Pulse--Asgtngxkdkv81 ??C (96.8 ??F)12/19/2021 4:25 PM EDTRespiratory Rate-- Oxygen Saturation--Inhaled Oxygen Concentration--Eeeqjn497 kg (343 lb 9.6 oz) 12/19/2021 4:25 PM JRXKgjnsd317.4 cm (6' 1 )12/19/2021 4:25 PM EDTBody Mass Index45.33012/19/2021 4:25 PM EDT Plan of Treatment Not on file Care Teams Team MemberRelationshipSpecialtyStart DateEnd Date Toney Park DO PCP - General11/04/21
--- OUTSIDE RECORDS SUMMARY | 2025-07-04 15:26 | XMS_ITS | Encounter Summary ---
Author Organization [facility] tem Address [facility]-[id number] [address] [place] [address] Care Team Providers Care Chemist Assistant Name Role Phone Toney Park DO Primary Care Provider [phone] Encounter Details DateTypeDepartmentCare Team (Latest Contact Info)Bbogapbmznw19/21/2025Travel Social History Tobacco UseTypesPacks/DayYears UsedDateSmoking Tobacco: NeverSmokeless Tobacco: NeverAlcohol UseStandard Drinks/WeekCommentsYes0 (1 standard drink = 0.6 oz pure alcohol)SociallyPHQ-2AnswerDate RecordedTotal Sysit1191ChildcareAnswer Date NxrekidvGuhglmryfOitkmyw74/10/2019EmploymentAnswerDate RecordedEmployment Kkgpqlc6702/13/2019Hunger ScreeningAnswerDate RecordedWithin the past 12 months we worried whether our food would run out before we got money to buy more.Never True06/07/2025Within the past 12 months the food we bought just didn't last and we didn't have money to get more.Never True06/07/2025Purpose - LifeAnswerDate RecordedPurpose and direction in xucoGemxhmv10/21/2021CommentsNoSex and Gender InformationValueDate RecordedSex Assigned at BirthNot on fileLegal Sex Wlzkqe2404/11/2015 11:40 AM EDTGender IdentityNot on fileSexual OrientationNot on filedocumented as of this encounter Plan of Treatment DateTypeDepartmentCare Team (Latest Contact Info)Ugjonhlshcb76/20/2025 1:00 PM ESTOffice Visit [facility] [address] [place] [address] Eros Marr, PA [address] [place] [address] documented as of this encounter Visit Diagnoses Not on filedocumented in this encounter Additional Health Concerns AssessmentNoted TimePHQ-9 Depression Total Score: 9:57 AM EDT documented as of this encounter Care Teams Team MemberRelationshipSpecialtyStart DateEnd Date Toney Park DO [address] [place] [address] PCP - GeneralFamily Verabbli82/21/25documented as of this encounter
--- OUTSIDE RECORDS SUMMARY | 2025-07-04 15:26 | XMS_ITS | Encounter Summary ---
Author Organization [facility] Address [address] [facility] [place] [address] Care Team Providers Care Director Zone Name Role Phone House, Toney Melara MD Primary Care Provider [phone] Encounter Details DateTypeDepartmentCare Team (Latest Contact Info)Gptlmwcjpkf99/29/2025Bamboo flowsheet [facility] [address] [place] [address] Lindsey Collier PA [address] [place], [facility] Social History Tobacco UseTypesPacks/DayYears UsedDateSmoking Tobacco: NeverSmokeless Tobacco: NeverCommentsNoSex and Gender InformationValueDate RecordedSex Assigned at BirthNot on fileLegal PzhXaaebx15/15/2023 7:23 PM EDTGender IdentityNot on fileSexual OrientationNot on filedocumented as of this encounter Plan of Treatment DateTypeDepartmentCare Team (Latest Contact Info)Jschyamkwfb03/03/2025 2:30 PM ESTOffice Visit [facility] [address] [place] [address] Lindsey Collier PA [address] [place] [address] 08/22/2025 1:20 PM ESTOffice Visit [facility] [address] [place] [address] Thi Stephens MD [address] [place] [address] documented as of this encounter Visit Diagnoses Not on filedocumented in this encounter Care Teams Team MemberRelationshipSpecialtyStart DateEnd Date Toney Park MD [address] [place] [address] PCP - GeneralFamily Szcfcniz24/4/24documented as of this encounter
--- OUTSIDE RECORDS SUMMARY | 2025-07-04 15:26 | XMS_ITS | Patient Health Record ---
Author Organization [facility] Address [address] [place], [place] [address] Support Name Relationship Address Phone Ariela Pinto Emergency Contact , [place] BlairMali Guarantor Unknown [phone] Allergies No Known Allergies Reason For Referral No Information Problems Problem Type SNOMED Code ICD Code Onset Dates Problem Status W/U Status Risk Notes Problem Bacteremia (6923679) Bacteremia (R78.81) 04/04/2009 Acti ve confirmed ProblemDysphagia (91604441)Symptom, dysphagia (787.2) (787.2)08/13/2009ctive confirmedProblemAcute labyrinthitis (573399967495764)Acute labyrinthitis (H83.09)12/13/2007ctiveconfirmedDescription:LabyrinthitisProblemAcute sinusitis (67150188)Acute infection of nasal sinus (J01.90)12/20/2007ctiveconfirmed Description:Acute sinusitisProblemLow back pain (723795825)Lumbago (724.2) (724.2)07/10/2009ctiveconfirmedStory:ASSESSMENT: 1. Add Neurontin. 2. Keep follow up with Pain clinic and neurosurgery.,ProblemParoxysmal digital cyanosis (770330883)Paroxysmal digital cyanosis (I73.00)08/13/2009ctiveconfirmed Story:ASSESSMENT: Improving, CARROL, CRP, ESR, RF negative.,Description:Raynaud's syndromeProblemSpasm (89680578)Spasm, muscle (728.85) (728.85)03/05/2009ctive confirmedProblemSciatica (88040146)Neuralgia neuritis, sciatic nerve (M54.30) 07/10/2009ctiveconfirmedDescription:SciaticaProblemPyelonephritis, acute (590.1) (590.1)04/04/2009ctiveconfirmedProblemBackache (386133088)Backache (724.5) (724.5)03/05/2009ctiveconfirmedProblemSpinal stenosis of lumbar region (42323113)Lumbar canal stenosis (M48.061)10/01/2009ctiveconfirmed Description:Spinal stenosis of lumbar regionProblemIncreased frequency of urination (406033957)Urinary frequency (788.41) (788.41)04/18/2009ctive confirmedProblemDegeneration of lumbar intervertebral disc (47041167) Degeneration of lumbar or lumbosacral intervertebral disc (722.52) (722.52) 10/01/2009ctiveconfirmedProblemScleroderma (137857355)Scleroderma (M34.9) 08/13/2009ctiveconfirmedDescription:Systemic sclerosisProblemUrinary tract infectious disease (46542325)Infection of urinary tract (N39.0)04/18/2009ctive confirmedDescription:Urinary tract infection Plan Of Treatment No Information Medical (General) History Surgical History Surgery Date(Month/Year) SURGICAL: Appendectomy, ProblemStatus: A ctive, 2009-10-01 SURGICAL: Tonsillectomy and adenoidectom y, ProblemStatus: Active, 2009-10-01 SURGICAL: Laparoscopic tubal ligation by cautery, ProblemStatus: Active, 2009-10-01
--- OUTSIDE RECORDS SUMMARY | 2025-07-04 15:26 | XMS_ITS | Clinical Summary ---
Author Organization [facility] Healthcare Address [address] [place] [address] Care Team Providers Care Stock Digger Name Role Phone HouseToney MD Primary Care Provider [phone] Allergies Active AllergyReactionsCriticalityNoted AbbcEkschwcwXxhxkrdgitfXsnnueh87/11/2021 Medications MedicationSigDispense QuantityRefillsLast FilledStart DateEnd DateStatus dicyclomine (Bentyl) 20 MG tablet Take 20 mg by mouth every 6 (six) hours08/24/2023ctive omeprazole (PriLOSEC) [address] capsule Take 40 mg by mouth DailyActive levothyroxine (Synthroid, Levoxyl) 200 MCG tablet Indications:Postoperative hypothyroidismTake 1 tablet (200 mcg) by mouth Daily 90 tablet ctive levothyroxine (Synthroid, Levoxyl) 50 MCG tablet Indications:Postoperative hypothyroidismTake 1 tablet (50 mcg) by mouth Daily 90 tablet ctive mirtazapine (Remeron) 30 MG tablet Take 30 mg by mouth at brjulns3806/28/2024ctive meclizine (Antivert) 25 MG tablet Take 25 [...] this medication. 14 tablet Expired Encounters DateTypeDepartmentCare VtvqUszrvkwcvoe19/29/2025 2:30 PM [place]TOff[place] [phone] Lindsey Collier PA Postoperative xldpnlugolw29/29/2025amboo [place] [phone] Lindsey Collier PA 06/14/2025[place] [phone] Simi Wedlon LPN 06/14/2025[place] [phone] Isai Aguilar DO 5Clinisync Result Encounter NOMS External Department Unsolicited Isai Aguilar, DO 06/06/2025[place] [phone] Barbie Manzano MA 5Clinisync Result Encounter NOMS External Department Unsolicited Isai Aguilar, DO 05/29/2025 1:40 PM EDTPro[place] [address] Isai Aguilar, Pre-op examination; Menorrhagia with regular cycle; Pelvic pain; Dysmenorrhea; Dyspareunia in female; Well woman exam with routine gynecological exam; Breast cancer screening by miouoglol75/23/2025Clinisync Result Encounter NOMS External Department Unsolicited Isai Aguilar DO 04/18/2025 1:50 [place] [address] Isai Aguilar DO Dysfunctional uterine qozjszwu98/13/2025Bamboo flowsheet [facility] [place] [facility] [address] [facility] [place] [address] Isai Aguilar, from Last 3 Months Immunizations ImmunizationAdministration DatesNext DueInfluenza, injectable, quadrivalent 08/21/2020,05/23/2019 Family History Medical HistoryRelationNameCommentsHeart failureMaternal GrandfatherCancer Maternal GrandmotherHeart attackSisterRelationNameStatusCommentsMaternal GrandfatherMaternal GrandmotherSister Social History Tobacco UseTypesPacks/DayYears UsedDateSmoking Tobacco: NeverSmokeless Tobacco: Never Tobacco Cessation:Counseling Given: Not Answered CommentsNoSex and Gender InformationValueDate RecordedSex Assigned at BirthNot on fileLegal HqgUuegfi90/15/2023 7:23 PM EDTGender IdentityNot on file Sexual OrientationNot on file Last Filed Vital Signs Vital SignReadingTime TakenCommentsBlood Vmmtbwxq026/6810 2:43 PM EDT Zxfzz854002/28/2025 1:15 PM EDTTemperature--Respiratory Ffba186902/28/2025 1:15 PM EDTOxygen Ydfspnjoip35%02/28/2025 1:15 PM EDTInhaled Oxygen Concentration-- Nwoypd073 kg (303 lb)07/04/2025 2:43 PM PZJJsycav550.4 cm (6' 1 )02/28/2025 1:15 PM EDTBody Mass Index39.98002/28/2025 1:15 PM EDT Plan of Treatment DateTypeDepartmentCare Team (Latest Contact Info)Anfjkwrcalg14/03/2025 2:30 PM ESTOffice Visit [facility] [place] [address] [address] [place] [address] Lindsey Collier PA [address] [place] [address] [place] [address] 08/22/2025 1:20 PM ESTOffice Visit [facility] [address] [place] [address] Thi Stephens MD [address] [place] [address] Procedures Procedure NamePriorityDate/TimeAssociated DiagnosisCommentsALL TYPE AND SCREEN Bqifxwn0906/14/2025 2:00 PM EDT C[facility] VXMUKegloyp19/09/2025 2:00 PM EDT SRMCOH PROTHROMBIN TIME INR W/O TTUOHtvcfuz59/09/2025 2:00 PM EDT ALL BASIC METABOLIC VFIECGqcseys62/09/2025 2:00 PM EDT HMHP LIVER NNQMZGwbrmrl33/09/2025 2:00 PM EDT ALL CBC WITH AUTO EZXIIzaxlse85/09/2025 2:00 PM EDT ECG 12-LEAD06/14/2025 11:55 AM EDT US PELVIS W/ GSUDYKYWRWAD30/25/2025 2:52 PM EDT IGP,APTIMA HPV,AGE HWWOFvviuem82/23/2025 2:15 PM EDT PAP ZSTKSBrcawuu08/23/2025 12:00 AM EDTfrom Last 3 Months Results [...] 2:05 PM EDT Narrative CLINISYNC - 06/14/2025 3:00 PM EDT Authorizing ProviderResult TypeResult StatusCorey Luaren DOCLINISYNCFinal Result Performing OrganizationAddressCity/State/ZIP CodePhone Number [facility] * (ABNORMAL) [facility] LIVER PANEL (06/14/2025 2:00 PM EDT)ComponentValueRef Range Test MethodAnalysis TimePerformed AtPathologist SignatureBILIRUBIN TOTAL0.70.2 - 1.0 mg/dLTBHBILIRUBIN DIRECT0.20.0 - 0.2 mg/dLTBHASPARTATE AMINO TRANSFERASE 9(L)15 - 37 U/LTBHALANINE AMINOTRANSFERASE8(L)14 - 59 U/LTBHALKALINE CTAWJWPBNHH2572 - 116 U/LTBHTOTAL PROTEIN7.76.4 - 8.2 g/dLTBHALBUMIN LEVEL3.7 3.4 - 5.0 g/dLTBHGLOBULIN4.0g/dLTBHALBUMIN GLOBULIN RATIO0.9TBHSpecimen (Source)Anatomical Location / LateralityCollection Method / VolumeCollection TimeReceived Time06/14/2025 2:00 PM EDT1 2:05 PM EDT Narrative CLINISYNC - 06/14/2025 2:38 PM EDT Authorizing ProviderResult TypeResult StatusCorey Lauren DOCLINISYNCFinal Result Performing OrganizationAddressty/State/ZIP CodePhone Number KAREEN [facility] * [facility] APTT (06/14/2025 2:00 PM EDT)ComponentValueRef RangeTest MethodAnalysis TimePerformed AtPathologist SignaturePARTIAL THROMBOPLASTIN TIME25.422.3 - 36.2 secTBHSpecimen (Source)Anatomical Location / LateralityCollection Method / VolumeCollection TimeReceived Time06/14/2025 2:00 PM EDT1 2:05 PM EDT Narrative CLINISYMO - 06/14/2025 3:00 PM EDT Authorizing ProviderResult TypeResult StatusCorey Lauren DOCLINISYNCFinal Result Performing OrganizationAddressCity/State/ZIP CodePhone Number [facility] * ALL TYPE AND SCREEN (06/14/2025 2:00 PM EDT)ComponentValueRef RangeTest Method Analysis TimePerformed AtPathologist SignatureBLOOD TYPEA PositiveTBHANTIBODY SCREENNEGATIVETBHSpecimen (Source)Anatomical Location / LateralityCollection Method / VolumeCollection TimeReceived Time06/14/2025 2:00 PM EDT1 2:05 PM EDT Narrative CLINISYMO - 06/14/2025 3:34 PM EDT [facility] , ?? Authorizing ProviderResult TypeResult StatusCorey Lauren DOCLINISYNCFinal Result Performing OrganizationAddressCity/State/ZIP CodePhone Number [facility] * (ABNORMAL) ALL CBC WITH AUTO DIFF (06/14/2025 2:00 PM EDT)ComponentValueRef RangeTest MethodAnalysis TimePerformed AtPathologist SignatureTBH WBC9.44.0 - 11.0 10 3/uLTBHTBH RBC4.974.20 - 5.40 10 6/uLTBHTBH HGB14.812.0 - 16.0 g/dLTBH TBH HCT44.736.0 - 48.0 %TBHTBH MCV89.981.0 - 99.0 fLTBHTBH MCH29.826.7 - 34.0 pgTBHTBH MCHC33.129.9 - 35.2 g/dLTBHTBH RDW13.211.0 - 15.0 %TBHTBH TMH230882 - 450 10 3/uLTBHTBH MPV10.59.5 - 13.5 [...] CodePhone Number [facility] * (ABNORMAL) ALL BASIC METABOLIC PANEL (06/14/2025 2:00 PM EDT)ComponentValueRef RangeTest MethodAnalysis TimePerformed AtPathologist LmkhtdwsnTCDGFZ257741 - 145 mmol/LTBHPOTASSIUM4.83.5 - 5.1 mmol/XSHOPHSANUMP10355 - 107 mmol/LTBH CARBON VBXCDKO90.921.0 - 32.0 mmol/LTBHANION GAP13.1IXYMFOXNGW636(H)74 - 106 mg/dLTBHBLOOD UREA HONDEQGG27.07.0 - 18.0 mg/dLTBHCREATININE0.760.55 - 1.02 mg/dLTBHTBH EGFR-AF ARMENIAN>60>=60 mL/min/1.73m 2TBHTBH EGFR-NON AF ARMENIAN >60>=60 mL/min/1.73m 2TBHBUN CREATININE RATIO21.9EUXMCBJZGU5.18.5 - 10.1 mg/dL TBHSpecimen (Source)Anatomical Location / [...] EDT Narrative 06/14/2025 2:08 PM EDT [facility] ?[address] ? [place] [address] ? Electrocardiograph Report ? Signed ? Patient: MALI PINTO ?MR#: [id number] ?? : 1975 ?Acct:[id number] ?? Age/Sex: 50 / F ?ADM Date: 06/14/25 ?? Loc: PST ? Attending Dr: Isai Aguilar D.O. ? Ordering Physician: Isai Aguilar D.O. ?? Date of Service: 06/14/25 ?? Procedure(s): ECG 12 lead ?? Accession Number(s): [id number] ? cc: ?[facility] ? Test Date: ?2025-06-14 ?? Pat Name: ? MALI PINTO ?Department: ? Room: ? - ?? Gender: ? Female ? Cell Room Operator: ? : ?1975 ? Requested By: ISAI AGUILAR ?? Order Number: [id number] ?Reading MD: ?? MICHELLE ??Alicia HIDALGO ? Measurements ?? Intervals ?Cinebar ? Rate: ? 61 ? P: ?56 ?? FL: ? 138 ?QRS: ?-18 ?? QRSD: ? [...] 1408 ? DD/ 1155 ? TD/TT: ? Oil Painter: Procedure Note Radiology, Radiologist, MD - 06/14/[address] [address] Electrocardiograph Report Signed Patient: MALI PINTO AMR#: [id number] : 1975Acct:[id number] Age/Sex: 50 / FADM Date: 06/14/25 Loc: PST Attending Dr: Isai Aguilar D.O. Ordering Physician: Isai Aguilar D.O. Date of Service: 06/14/25 Procedure(s): ECG 12 lead Accession Number(s): [id number] cc: [facility] Test Date: 2025-06-14 Pat Name: MALI PINTO Department: Room: - Gender: Female Cell Room Operator: : 1975 Requested By: ISAI AGUILAR Order Number: [id number] Reading MD: MICHELLE HIDALGO M.D. Measurements Intervals Cinebar Rate: 61 P: 56 FL: 138 QRS: -18 QRSD: 86 T: 24 QT: 407 QTc: 411 Interpretive Statements SINUS RHYTHM POSSIBLE LEFT ATRIAL ENLARGEMENT [-0.1mV P WAVE IN V1/V2] Abnormal ECG Compared to ECG 11/03/2024 13:58:01 No significant changes Electronically Signed On 06-14-2025 14:08:13 EDT by MICHELLE HIDALGO M.D. Dictated By: MICHELLE HIDALGO Signed By:06/14/25 1408 DD/ 1155 TD/TT: Oil Painter: Authorizing ProviderResult TypeResult StatusCorey Lauren DOCLINISYNC IMAGINGFinal Result * US PELVIS W/ TRANSVAGINAL (05/31/2025 2:52 PM EDT)Anatomical RegionLaterality ModalityOtherSpecimen (Source)Anatomical Location / LateralityCollection Method / VolumeCollection TimeReceived Time05/31/2025 2:52 PM EDT Narrative 05/31/2025 2:55 PM EDT [facility] ?[address] ? [place] [address] ? Ultrasound Report ? Signed ? Patient: MALI PINTO ?MR#: [id number] ?? : 1975 ?Acct:[id number] ?? Age/Sex: 50 / F ?ADM Date: 05/31/25 ?? Loc: US ? Attending Dr: Isai Aguilar D.O. ? Ordering Physician: Isai Aguilar D.O. ?? Date of Service: 05/31/25 ?? Procedure(s): US pelvis w/ transvaginal ?? Accession Number(s): [id number] ? cc: Isai Aguilar D.O.; TONEY MONTOYA ? [facility] ? [address] ? [place] [address] ? Patient Name: ?? MALI PINTO ? MRN: [facility]:[id number] ? date: 1975 ?Sex: F ?? Assigned Patient Location: US ?? Current Patient Location: US ?? Accession/Order Number: [id number] ?? Exam Date: 05/31/2025 ??13:55 ?Report Date: [...] not ?? visualized. ? Impression dictated by: Rossy Julian Jr.O. ??05/31/2025 2:52 PM ? Dictation Location: [facility]-- ? Electronically authenticated by: [id number] ??Y ?? Date: 05/31/2025 ??14:52 ? Dictated By: ?Vlad Chamberlain M.D. ? Signed By: ?05/31/25 1455 ? DD/ 145 ? TD/TT: ? Oil Painter: Procedure Note Radiology, Radiologist, MD - 05/31/2025 [place] [address] Ultrasound Report Signed Patient: MALI PINTO [facility]#: [id number] : 1975Acct:[id number] Age/Sex: 50 / FADM Date: 05/31/25 Loc: US Attending Dr: Isai Aguilar D.O. Ordering Physician: Isai Aguilar D.O. Date of Service: 05/31/25 Procedure(s): US pelvis w/ transvaginal Accession Number(s): [id number] cc: Isai Aguilar D.O.; [place] [id number] Patient Name: MALI PINTO MRN: [facility]:[id number] date: 1975 Sex: F Assigned Patient Location: US Current Patient Location: US Accession/Order Number: [id number] Exam Date: 05/31/2025 13:55 Report Date: 05/31/2025 [...] Jr., D.O. 05/31/2025 2:52 PM Dictation Location: [place] [address] Electronically authenticated by: [id number] Y Date: 4:52 Dictated By: Vlad Chamberlain M.D. Signed By:05/31/251454 DD/ 51 TD/TT: Oil Painter: Authorizing ProviderResult TypeResult StatusCorey Lauren DOCLINISYNC IMAGINGFinal [...] at: 01 =G ?[facility] ?? [address] [place], [place] ??[phone] ?? Salome Li MD, IGP, APTIMA HPV, RFX 16/18,45Note.TBHComment: ?? TESTS ? RESULT ??FLAG ??UNITS ?REF RANGE ??LAB DIAGNOSIS: ?02 ?? NEGATIVE FOR INTRAEPITHELIAL LESION OR MALIGNANCY. ?? TRICHOMONAS VAGINALIS IS PRESENT. Specimen adequacy: ?02 ?? Satisfactory for evaluation. ??Endocervical and/or squamous metaplastic ?? cells (endocervical component) are present. Performed by: ? 02 ?? Shayy Mclain, Foundation Drill Operator (ASCP) . ? 02 Note: ? Note [...] Low,>-Panic High,A-Abnormal,AA-Critical Abnormal Performed at: 02 WB ?[facility] ?? [address] [place], [place] ??[address] ?? Salome Li MD, HPV APTIMANegativeNegativeTBHComment: This nucleic acid amplification test detects fourteen high- risk HPV types (16,18,31,33,35,39,45,51,52,56,58,59,66,68) without differentiation. Performed at: ??=G - [facility] ??[id number] Dinkey Motor Operator: Salome Li MD, Phone: ??[phone] Performed at: ??WB - [facility] ??[id number] Dinkey Motor Operator: Salome Li MD, Phone: ??[phone] Specimen (Source)Anatomical Location / LateralityCollection Method / Volume Collection TimeReceived Time05/29/2025 2:15 PM EDT05/29/2025 7:52 PM EDT Narrative CLINISYNC - 06/05/2025 1:08 PM EDT BRUSH-SPATULA CERVIX ENDOCERVIX Authorizing ProviderResult TypeResult StatusCorey Lauren DOLAB BLOOD ORDERABLES Final ResultPerforming OrganizationAddressCity/State/ZIP CodePhone Number CLINISYNC TBH * Pap Smear (05/29/2025 12:00 AM EDT)Specimen (Source)Anatomical Location / LateralityCollection Method / VolumeCollection TimeReceived TimeSwabCervical swab / Unknown Narrative Authorizing ProviderResult TypeResult StatusFazio Nurse Noms Bcp ObLAB CYTOLOGY ORDERABLESFinal ResultPerforming OrganizationAddressCity/State/ZIP CodePhone Number EXTERNAL LAB from Last 3 Months Insurance Care Teams Team MemberRelationshipSpecialtyStart DateEnd Toney Jose MD [address] [place] [address] PCP - GeneralFamily Uwpkuxlf08/4/24
[2025-07-04 15:28] VITALS: BP 131/87; PULSE 78; TEMP 36.8; O2SAT 99; BMI 39.6
--- OUTSIDE RECORDS SUMMARY | 2025-07-04 15:31 | XMS_ITS | CCD ---
Author Organization [facility] Care Team Providers Care Manufacturing Development Engineer Name Role Phone MARKER, AMY Admitting Unavailable MARKER, AMY Attending Unavailable SOFIYA COLE Primary Care UnavailRUPINDER Wahl Consulting Unavailable MARKER, AMY Consulting Unavailable AMBREEN ZENDEJAS Consulting Unavailable None, No PCP Unavailable Unavailable Unavailable Unavailable Toney Montoya Unavailable Melody rBandon Unavailable Sofiya Cole MD Primary Care Provider [phone] Korey Ford MD Attending Provider [phone] Toney Montoya DO Primary Care Provider Toney Montoya MD Primary Care Provider Toney Montoya DO Primary Care Provider Sofiya Cole MD Primary Care Provider Jorge Aguilar DO Attending Provider Sofiya Cole MD Primary Care Provider Jorge Aguilar DO Attending Provider Toney Montoya DO Primary Care Provider Toney Montoya MD Primary Care Provider JORGE AGUILAR Attending Unavailable THI STEPHENS Attending Unavailable HUY AGUILARY Attending Unavailable JORGE AGUILAR Attending Unavailable GISELA STEPHENSMAD F Attending Unavailable GISELA STEPHENSMAD F Referring Unavailable JORGE AGUILAR Attending Unavailable TONEY MONTOYA Referring Unavailable TONEY [...] Unavailable HOUSE, TONEY P Primary Care Unavailable Jorge Aguilar DO Attending Provider [phone] HOUSE, TONEY P Primary Care Unavailable Korey Ford Attending Unavailable Korey Ford Admitting Unavailable Korey Ford Attending Unavailable HOUSE, TONEY P Primary Care Unavailable HOUSE, DO TONEY P Admitting Unavailable HOUSE, DO TONEY P [...] Unavailable HOUSE, TONEY P Primary Care Unavailable Jorge Aguilar Attending Unavailable Jorge Aguilar Admitting Unavailable Jorge Aguilar Admitting Unavailable Lauren, Jorge Attending Unavailable Sofiya Cole Primary Care Unavailable Jorge Aguilar Attending Unavailable Jorge Aguilar Admitting Unavailable Korey Ford Admitting Unavailable Korey Ford Attending Unavailable Sofiya Cole Primary Care Unavailable Allergies Allergy ClassificationReported Allergen(s)Allergy TypeDate of OnsetReaction(s) Facility (1 source)[facility]icillinDrug [facility] Other (1 source)AmoxicillinDrug Syuvwkc03-73-2134[facility]jyhjkw[facility] Medications Current Medications MedicationDrug Class(es)DatesSig (Normalized)Sig (Original)acetaminophen 500 mg oral tablet (13 sources)take 1 tablet by mouth every six hours as needed for pain acetaminophen (TYLENOL EXTRA STRENGTH) 500 mg tablet Take 1 tablet (500 mg total) by mouth every 6 (six) hours as needed for pain. [id number] 200 actuat albuterol 0.09 mg/actuat metered dose inhaler (2 sources)beta2-Adrenergic AgonistStart: 64-41-1028feua 2 puff(s) by inhalation four times daily as neededAlbuterol Sulfate HFA 108 (90 Base) MCG/ACT 2 puffs Inhalation qid prn Aug, ActiveStart: 09-05-2020 End: 14-84-5455lmbl 2 puff(s) by mouth every four hoursVENTOLIN HFA 90 mcg/actuation inhaler INHALE 2 PUFFS BY MOUTH EVERY 4 HOURS DIRECTED 09/05/2020 05/18/2024 Discontinuedamitriptyline hydrochloride 100 mg oral tablet (18 sources)Tricyclic AntidepressantStart: 05-14-2024 End: 18-42-0625xalp 1 tablet by mouth once daily at bedtimeamitriptyline (ELAVIL) 100 mg tablet Take 1 tablet (100 mg total) by mouth once daily at bedtime. 05/14/2024 ActiveAzithromycin (1 source)Macrolide AntimicrobialAzithromycin ActivebusPIRone hydrochloride 10 mg oral tablet (20 sources)Start: 04-26-2024 End: 39-91-5612rdvYJLsyw (BUSPAR) 10 mg tablet Take 1 tablet (10 mg total) by mouth. 04/26/2024 Activetake 1 tablet by mouth in the morningbusPIRone (BUSPAR) 5 mg tablet Take 1 tablet (5 mg total) by mouth in the morning. Activecalcium carbonate 1250 mg oral tablet (19 sources)Start: 70-79-1379uvyotlm carbonate (OS-CHRIS) 500 mg calcium (1,250 mg) tablet 12/05/2021 Active End: 73-43-3774kzcs 1 tablet by mouth in the morningcalcium carbonate (Os-Chris) 1250 (500 Ca) MG tablet Take 1 tablet by mouth in the morning and 1 tablet before bedtime. 09/19/2024 Discontinuedcariprazine 1.5 mg oral capsule (20 sources)Atypical AntipsychoticStart: 10-01-2020 End: 14-42-3796amys 1 capsule by mouth in the morningVRAYLAR 1.5 mg capsule Take by mouth in the morning. 10/01/2020 ActiveVraylar Activecholecalciferol 0.125 mg oral tablet (18 sources)Vitamin D End: 49-76-5268pskf 1 tablet by mouth in the morningcholecalciferol, vitamin D3, 5,000 units tablet Take 1 tablet (5,000 Units total) by mouth in the morning. Activecitalopram 20 mg oral tablet (20 sources)Serotonin Reuptake InhibitorStart: 04-26-2024 End: 59-72-8573axbb 1 tablet by mouth in the morningcitalopram (CeleXA) 20 mg tablet Take 1 tablet (20 mg total) by mouth in the morning. 04/26/2024 Active take 1 tablet by mouth once dailycitalopram (CeleXA) 10 MG tablet Take 10 mg by mouth Daily Activedicyclomine hydrochloride 20 mg oral tablet (20 sources)AnticholinergicStart: 13-82-6849wixc 1 tablet by mouth every six hoursdicyclomine (Bentyl) 20 MG tablet Take 20 mg by mouth every 6 (six) hours 08/24/2023 Activeferrous gluconate 324 mg oral tablet (20 sources)Start: 41-33-8789jdpg 1 tablet by mouth at mealtimeferrous gluconate (Fergon) 324 (38 Fe) MG tablet Take 324 mg by mouth in the morning. Take with meals. 08/07/2024 ActivehydrOXYzine hydrochloride 10 mg oral tablet (2 sources)AntihistamineStart: 82-33-7973aphx 1 tablet by mouth three times daily as needed for anxietyhydrOXYzine (ATARAX) 10 mg tablet Take 1 tablet (10 mg total) by mouth 3 (three) times a day as needed for anxiety. 01/24/2025 Activelevothyroxine sodium 0.2 mg oral tablet (20 sources)l-ThyroxineStart: 09-11-2024 End: 42-15-1232wfjx 1 tablet by mouth once dailylevothyroxine (Synthroid, Levoxyl) 200 MCG tablet Indications: Postoperative hypothyroidism Take 1 tablet (200 mcg) by mouth Daily 90 tablet 3 09/11/2024 09/06/2025 ActiveStart: 09-11-2024 End: 78-84-8084safa 1 tablet by mouth once dailylevothyroxine (Synthroid, Levoxyl) 50 MCG tablet Indications: Postoperative hypothyroidism Take 1 tablet (50 mcg) by mouth Daily 90 tablet 3 09/11/2024 09/06/2025 ActiveStart: 02-19-2024 End: 25-01-5949bfwn 1 tablet by mouth before mealtimelevothyroxine (Synthroid, Unithroid) 300 MCG tablet Take 1 tablet by mouth in the morning. Take before meals. 02/19/2024 09/11/2024 Discontinued (Dose adjustment)Start: 09-68-2360voqu 300 ug by mouth in the morninglevothyroxine sodium (EUTHYROX ORAL) Take 300 mcg by mouth in the morning. 01/01/2022 ActiveStart: 84-40-2296avon 1 tablet by mouth once dailyEuthyrox 200 MCG Oral Tablet TAKE 1 TABLET BY MOUTH ONCE DAILY Quantity: 30 Refills: 0 Ordered: 05-Dec-2021 DO Start : 05-Dec-2021 Active End: 05-07-3569hbkc 1 tablet by mouth in the morninglevothyroxine (EUTHYROX) 50 MCG tablet Take 1 tablet (50 mcg total) by mouth in the morning. 05/18/2024 Discontinued (Ineffective)LORazepam 0.5 mg oral tablet (10 sources)BenzodiazepineStart: 13-36-2695xyfb 1 tablet by mouth in the morning, then take 1 tablet by mouth at bedtimeLORazepam (ATIVAN) 0.5 mg tablet Take 1 tablet (0.5 mg total) by mouth in the morning and 1 tablet (0.5 mg total) before bedtime. 02/12/2025 Activemeclizine hydrochloride 25 mg oral tablet (17 sources)AntiemeticStart: 30-03-7890yuzpcoqoc (Antivert) 25 MG tablet Take 25 mg by mouth as needed in the morning and 25 mg as needed at noon and 25 mg as needed in the evening for dizziness. 09/14/2024 Activemeloxicam 7.5 mg oral tablet (20 sources)Nonsteroidal Anti-inflammatory DrugStart: 15-46-4776tmqm 1 tablet by mouth in the morningmeloxicam (MOBIC) 7.5 mg tablet Take 1 tablet (7.5 mg total) by mouth in the morning. 06/07/2024 ActivemethylPREDNISolone (1 source)CorticosteroidStart: 95-62-4100dcurntOSWGJPFztnna (MEDROL, GEMMA,) 4 mg tablet follow package directions 21 tablet 06/07/2025 Activemirtazapine 30 mg oral tablet (20 sources)Start: 37-17-3767epwj 1 tablet by mouth at bedtimemirtazapine (Remeron) 30 MG tablet Take 30 mg by mouth at bedtime 06/28/2024 Active omeprazole 40 mg delayed release oral capsule (20 sources)Proton Pump Inhibitor End: 31-60-8627vsdd 1 capsule by mouth once dailyomeprazole (PriLOSEC) [address] capsule Take 40 mg by mouth Daily ActivePriLOSEC Active Completed/Discontinued Medications MedicationDrug Class(es)DatesSig (Normalized)Sig (Original)ascorbic acid 500 mg oral capsule (2 sources)Vitamin C End: 59-62-5513zckw 1 capsule by mouth once dailyAscorbic Acid (Vitamin C) 500 MG capsule Take 1 each by mouth Daily 09/19/2024 Discontinuedaspirin 845 mg / caffeine 65 mg oral powder (1 source)Platelet Aggregation Inhibitor, Nonsteroidal Anti-inflammatory Drug, Central Nervous System Stimulant, Methylxanthine End: 51-00-8567zrzkibm-caffeine 845-65 mg powder in packet Take by mouth as needed (headache). 05/18/2024 Discontinueddiclofenac sodium 50 mg delayed release oral tablet (1 source)Nonsteroidal Anti-inflammatory DrugStart: 06-16-2023 End: 67-53-4145skvq 1 tablet by mouth in the morning, then take 1 tablet by mouth at bedtimediclofenac (VOLTAREN) 50 mg EC tablet Take 1 tablet (50 mg total) by mouth in the morning and 1 tablet (50 mg total) before bedtime. 60 tablet 06/16/2023 05/18/2024 DiscontinueddimenhyDRINATE 50 mg oral tablet (1 source) End: 35-51-4724ktsr 1 tablet by mouth once daily as neededdimenhyDRINATE (DRAMAMINE) 50 mg tablet Take 50 mg by mouth nightly as needed for movement disorders. 05/18/2024 Discontinueddocusate sodium 100 mg oral capsule (6 sources)Start: 12-05-2021 End: 25-59-2863unix 1 capsule by mouth twice dailyDocusate Sodium 100 MG Oral Capsule TAKE 1 CAPSULE BY MOUTH TWICE DAILY Quantity: 28 Refills: 0 Ordered: 05-Dec-2021 DO Start : 05-Dec-2021 Activedoxycycline monohydrate 100 mg oral capsule (1 source)Tetracycline-class DrugStart: 16-47-7818mwbb 1 capsule by mouth every twelve hoursDoxycycline Monohydrate 100 MG 1 capsule Orally every 12 hrs for 7 days Dec, Not-Takingfluticasone propionate 0.05 mg/actuat metered dose nasal spray (2 sources)CorticosteroidStart: 18-40-3237ysjc 1 spray(s) nasal route once daily Fluticasone Propionate 50 MCG/ACT 1 spray in each nostril Nasally Once a day for 30 day(s) Dec, Not-TakingStart: 11-06-2020 End: 54-28-3924hjiw 1 spray(s) nasal route once dailyfluticasone propionate (FLONASE) 50 mcg/actuation nasal spray Indications: Chronic rhinitis Administer 1 spray into each nostril daily. 15.8 mL 12 11/06/2020 05/18/2024 Discontinued magnesium gluconate 550 mg oral tablet (1 source) End: 36-46-4692wfqo 1 tablet by mouth in the morning, then take 1 tablet by mouth at bedtimemagnesium 30 mg tablet Take 1 tablet (30 mg total) by mouth in the morning and 1 tablet (30 mg total) before bedtime. 05/18/2024 Discontinued methylPREDNISolone 4 MG Oral Tablet Therapy Pack (1 source)Start: 75-02-2527ylvyutZEGICFMplmvb 4 MG Oral Tablet Therapy Pack TAKE BY MOUTH DIRECTED ON INSIDE OF PACKAGE Quantity: 21 Refills: 0 Ordered: 07-Aug-2021 DO Start : 07-Aug-2021 ActiveOmeprazole TBEC (10 sources)Omeprazole TBEC Quantity: 0 Refills: 0 Ordered: 07-Apr-2021 DO Active predniSONE 10 mg oral tablet (2 sources)Start: 08-12-2022 End: 14-90-2249lzzv 1 tablet by mouth twice daily, then take 1 tablet by mouth once dailypredniSONE (DELTASONE) 10 mg tablet TAKE 1 TABLET BY MOUTH TWICE DAILY FOR 7 DAYS. THEN TAKE 1 TABLET ONCE DAILY FOR 7 DAYS UNTIL GONE 08/12/2022 05/18/2024 DiscontinuedpredniSONE Activesertraline 25 mg oral tablet (7 sources)Serotonin Reuptake Inhibitor End: 03-44-6141pnsz 1 tablet by mouth once dailysertraline (Zoloft) 25 MG tablet Take 1 tablet by mouth Daily 09/19/2024 DiscontinuedZoloft ActiveSertraline HCl CONC (10 sources)Sertraline HCl CONC Quantity: 0 Refills: 0 Ordered: 07-Apr-2021 DO ActivetraMADol hydrochloride 50 mg oral tablet (2 sources)Opioid AgonistStart: 96-99-6602pxkx 1 tablet by mouth every six hours as needed for paintraMADol HCl - 50 MG Oral Tablet TAKE 1 TABLET Every 6 hours As Needed for pain Quantity: 12 Refills: 0 Ordered: 05-Dec-2021 Edy Dominguez MD Start : 05-Dec-2021 ActivetraZODone hydrochloride 50 mg oral tablet (1 source)Serotonin Reuptake InhibitorStart: 09-19-2020 End: 68-26-3842zjaLSGfal (DESYREL) 50 mg tablet 09/19/2020 05/18/2024 Discontinued Problems Active Problems Problem ClassificationProblemDateDocumented DateEpisodic/ChronicAbdominal pain (1 source)Pain in pelvis; Translations: [Pelvic and perineal pain]05-29-2025 EpisodicAdministrative/social admission (5 sources)Patient encounter status; Translations: [Dietary counseling and surveillance]50-65-9492ZhyurwkkIfcuwfr disorders (2 sources)Anxiety disorder, unspecified; Translations: [ANXIETY DISORDER UNSPECIFIED]Onset: 36-78-8697JzrwtgbCkqvwv of thyroid (12 sources)Malignant tumor of thyroid gland; Translations: [Malignant neoplasm of thyroid gland]56-34-4735FyvhfeiOkemjxwbatudq of surgical procedures or medical care (9 sources)Postoperative hypothyroidism; Translations: [Postprocedural hypothyroidism]52-01-7181MgrmnrvJkzdpmheju associated with dizziness or vertigo (4 sources)Dizziness and giddiness; Translations: [DIZZINESS AND GIDDINESS] Onset: 07-32-8679OcksdrqrOlophcvkhi and other anemia (2 sources)Iron deficiency anemia; Translations: [Iron deficiency anemia, unspecified]11-68-1094UuwfqfuzCcdtdtihv hypertension (1 source)Essential (primary) hypertension; Translations: [Essential (primary) hypertension]Onset: 53-00-3555EodifirKrdtkrjku disorders (2 sources)Menorrhagia; Translations: [Excessive and frequent menstruation with regular cycle]74-84-7014QfsfcwzMrvopgewolu deficiencies (4 sources)Vitamin D deficiency; Translations: [Vitamin D deficiency, unspecified]93-99-6798UgmcdozTpemuprgmfoeep (13 sources)Osteoarthritis of left knee joint; Translations: [Unilateral primary osteoarthritis, left knee]Onset: 102763-30-9564NydgwjmZouul connective tissue disease (1 source)Arthrodesis status; Translations: [ARTHRODESIS STATUS]Onset: 59-02-8515MgrmishoUrnpm female genital disorders (4 sources)Abnormal uterine bleeding; Translations: [Other specified abnormal uterine and vaginal bleeding]08-24-0206ZswgsmbXvgfn female genital disorders (1 source)Pain in female genitalia on intercourse; Translations: [Unspecified dyspareunia]38-14-9858KibkdfoIyhlh hereditary and degenerative nervous system conditions (1 source)Drug induced akathisia; Translations: [Drug induced akathisia]Onset: 07-56-3603JpqijutOrgae lower respiratory disease (1 source)Shortness of breath; Translations: [SHORTNESS OF BREATH]Onset: 71-91-7956MqouvegxMxabx nervous system disorders (2 sources)Acute postoperative pain; Translations: [Other acute postoperative pain]EpisodicOther nutritional; endocrine; and metabolic disorders (13 sources)Body mass index 40+ - severely obese; Translations: [Body mass index (BMI) 40.0-44.9, adult]Onset: 664391-04-2856DxwlauuHgyit nutritional; endocrine; and metabolic disorders (4 sources)Severe obesity; Translations: [Class 3 severe obesity due to excess calories without serious comorbidity with body mass index (BMI) of 40.0 to 44.9 in adult ([facility])]63-24-5826RfxpnrfGoybb nutritional; endocrine; and metabolic disorders (1 source)Obesity, unspecified; Translations: [Obesity, unspecified]Onset: 94-08-4359MbfdfmsJnote screening for suspected conditions (not mental disorders or infectious disease) (2 sources)Other abnormal and inconclusive findings on diagnostic imaging of breast; Translations: [Encounter for screening mammogram for malignant neoplasm of breast]Onset: 12-34-5244RblctephRlblaxcgm heart disease (1 source)Personal history of pulmonary embolism; Translations: [PERSONAL HISTORY PULMONARY EMBOLISM]Onset: 07-47-3122MfuprpcaMblteyse codes; unclassified (1 source)Insomnia, unspecified; Translations: [Insomnia, unspecified]Onset: 18-20-1635BpenhkomDkgbsmoydh arthritis and related disease (1 source)Rheumatoid arthritis, unspecified; Translations: [Rheumatoid arthritis, unspecified]Onset: 30-84-3630NhsuafvPkrohbcwfbj; intervertebral disc disorders; other back problems (20 sources)Lumbosacral spondylosis without myelopathy; Translations: [Spondylosis without myelopathy or radiculopathy, lumbosacral region]Onset: 934315-28-9333EbsluwsTmknfda disorders (20 sources)Nontoxic goiter, unspecified; Translations: [Thyroid nodule]Onset: 002596-21-3549BxkpyuxQiuabex tract infections (1 source)Urinary tract infection, site not specified; Translations: [UTI SITE NOT SPECIFIED]Onset: 09-92-8894Lrblxmuc Past or Other Problems Problem ClassificationProblemDateDocumented DateEpisodic/ChronicDeficiency and other anemia (1 source)Iron deficiency anemia, unspecified; Translations: [Iron deficiency anemia, unspecified]Onset: 74-70-5241ExyykguxOrnwe disorders and dislocations; trauma-related (13 sources)Acute tear of meniscus of left knee; Translations: [Unspecified tear of unspecified meniscus, current injury, left knee, initial encounter]Onset: 943286-90-3291PdgqiqwjHzhi disorders (13 sources)Mood disordersOnset: 090777-59-6019Uvoqs lower respiratory disease (1 source)Unspecified acute lower respiratory infection; Translations: [Unspecified acute lower respiratory infection]Onset: 56-94-7938VabofyhgCixec non-traumatic joint disorders (12 sources)Hip pain; Translations: [Pain in right hip]Onset: 07-18-2018 54-61-5521HlzdsolxRzmko non-traumatic joint disorders (1 source)Pain in right hip joint; Translations: [Pain in right hip]Onset: 884423-75-4986ItoxvungPswyg non-traumatic joint disorders (1 source)Knee painOnset: 90-53-9619AexpvfjvIaceqdhgmbq; intervertebral disc disorders; other back problems (20 sources)Peripheral neuritis; Translations: [Radiculopathy, lumbar region] Onset: 609871-82-4621DzludhnrLvpltcnhqlwy (1 source)Cough R05.9Onset: 08-16-2021 Resolved: 59-25-1838Jywxe infection (1 source)COVID-19Onset: 08-16-2021 Resolved: 08-16-2021 Results Test NameValueInterpretationReference RangeFacilityLon 06-27-2025L Specimen: [id number] Received: 06/28/254 Status: WALDO Madsen Num: [id number] Spec Type: Surgical Subm Dr: Jorge Aguilar Tissues: A Uterus w/ or w/o tubes ovaries except neoplastic or prolap (UTERUS,BILATER Procedures: , Gross/Micro L5 Age/ Patient Sex Location Account Attending Physician Lauro Pinto 50/F [facility] [id number] Jorge Aguilar SPEC NUM: [id number] RECD: 06/28/25 STATUS: WALDO MADSEN NUM: [id number] MIGUELITO: 06/27/254 [facility] DR: Jorge Aguilar ENTERED: 06/28/25 [facility] [address]: Ibeth,Lab SPEC TYPE: Surgical DEPT: JORGE KULKARNI ENTERED BY: [id number] RECV BY: [id number] ORDERED: , Gross/Micro L5 ORDERED: , Gross/Micro L5 Pathological Diagnosis Uterus with bilateral fallopian tubes, supracervical hysterectomy and bilateral salpingectomy: - Weakly proliferative phase endometrium. - Intramural leiomyoma. - Serosa with no significant histopathology. - Bilateral dilated fallopian tubes with endometriosis of right tube. - No evidence of hyperplasia or malignancy identified. Clinical Information Menorrhagia, dyspareunia, dysmenorrhea Gross Description Part A is received in formalin labeled with the patients name, date of , and noy Pinto, bilateral fallopian tubes Is a 62 g, supracervical hysterectomy specimen, which consists of a uterine corpus without attached cervix, resected with detached left fallopian tube remnant, attached right fallopian tube remnant, and without bilateral ovaries. The uterine corpus is symmetrical, 4 cm cornu to cornu, 3.5 cm anterior to posterior and 5 cm fundus to cervical resection margin. The serosa is duarte-pink, smooth and glistening. The endometrial cavity is duarte-pink, focally erythematous, glistening and triangular, 3.2 x 3 cm with endometrium, up to 0.2 cm in thickness. The myometrium is duarte-pink and trabecular, up to 2 cm in thickness. Within the myometrium is a 0.8 cm in greatest dimension intramural nodule. The cut surfaces of the nodule are white, whorled, rubbery and uniform with no Specimen: [id number] Received: 06/28/25 Status: WALDO Madsen Num: [id number] Spec Type: Surgical Subm : Jorge Aguilar Tissues: A Uterus w/ or w/o tubes ovaries except neoplastic or prolap (UTERUS,BILATER Procedures: 8, Gross/Micro L5 Patient: Lauro Pinto [id number] (Continued) Specimen: [id number] Received: 06/28/25 (Continued) Gross Description (Continued) Signed (signature on file) Bertin Palacios MD 07/02/25 1415 Specimen: [id number] Received: 06/28/25 Status: WALDO Cale Num: [id number] Spec Type: Surgical Subm Dr: Jorge Aguilar Tissues: A Uterus w/ or w/o tubes ovaries except neoplastic or prolap (UTERUS,BILATER Procedures: Laura Gross/Micro L5 Patient: Lauro Pinto [id number] (Continued) Specimen: [id number] Received: 06/28/25-1308 (Continued) Gross Description (Continued) hemorrhage or degeneration identified. The detached left fallopian tube remnant with blunted end is 2.2 cm in length by 0.7 cm in diameter, while the attached right fallopian tube remnant with blunted distal end is 3 cm in length by 0.8 cm in diameter. The serosa is perez purple, smooth and glistening. Serial sections reveal dilated lumen, up to 0.3 cm in diameter within each segment that are filled with a red-brown, thick material. Cassettes: A1 Cervical resection margin A2 Serosa A3-A4 Full-thickness cross-sections of anterior endomyometrium (to include entirety of intramural nodule) A5-A6 Full-thickness cross-sections of posterior endomyometrium A7 Longitudinally bisected blunted end and personal financial representative cross-sections from left tube A8 Longitudinally bisected blunted ends and personal financial representative cross-sections from right tube (8, ss, BL86-376 A) JG Microscopic Description Microscopic examination is performed. CPT Codes 20922 (more content not included)...NormalFranklin County Memorial HospitalRad - Other Radiology Reporton 45-59-5893Uwl - Other Radiology Report [id number]#1.00OTGTTrumbull Memorial HospitalRad - Other Radiology Reporton 61-80-8315Jyg - Other Radiology Report [id number]#1.00OTGTTrumbull Memorial HospitalUS BREAST RT LIMITEDon 39-20-0797RK BREAST RT LIMITEDUS BREAST RT LIMITED LAURO Stephanie PINTO 1975 [id number] EXAM: US BREAST RT LIMITED, 06/26/2025 10:58 [...] on 06/26/2025 11:24 AM 2 [facility] 12-LEADon 65-47-5923[place] [address] Electrocardiograph Report Signed Patient: LAURO PINTO MR#: [id number] : 1975 Acct:[id number] Age/Sex: 50 / F ADM Date: 06/14/25 Loc: [facility] Attending Dr: Jorge Aguilar D.O. Ordering Physician: Jorge Aguilar D.O. Date of Service: 06/14/25 Procedure(s): ECG 12 lead Accession Number(s): [id number] cc: [facility] Test Date: 2025-06-14 Pat Name: LAURO PINTO Department: Room: - Gender: Female Manager Outpatient: : 1975 Requested By: JORGE AGUILAR Order Number: [id number] Reading MD: MICHELLE HIDALGO M.D. Measurements Intervals [place] Rate: 61 P: 56 [place]: 138 QRS: -18 QRSD: 86 T: 24 QT: 407 QTc: 411 Interpretive Statements SINUS RHYTHM POSSIBLE LEFT ATRIAL ENLARGEMENT [-0.1mV P WAVE IN V1/V2] Abnormal ECG Compared to ECG 11/03/2024 13:58:01 No significant changes Electronically Signed On 06-14-2025 14:08:13 EDT by MICHELLE HIDALGO M.D. Dictated By: MICHELLE HIDALGO Signed By: 06/14/25 1408 DD/ 1155 TD/TT: Banquet Line Cook:ELIadiologDima stallworth MD - 06/14/2025 [place] [address] Electrocardiograph Report Signed Patient: LAURO PINTO MR#: [id number] : 1975 Acct:[id number] Age/Sex: 50 / F ADM Date: 06/14/25 Loc: [facility] Attending Dr: Jorge Aguilar D.O. Ordering Physician: Jorge Aguilar D.O. Date of Service: 06/14/25 Procedure(s): ECG 12 lead Accession Number(s): [id number] cc: [facility] Test Date: 2025-06-14 Pat Name: LAURO PINTO Department: Room: - Gender: Female Manager Outpatient: : 1975 Requested By: JORGE AGUILAR Order Number: [id number] Reading MD: MICHELLE HIDALGO M.D. Measurements Intervals [place] Rate: 61 P: 56 [place]: 138 QRS: -18 QRSD: 86 T: 24 QT: 407 QTc: 411 Interpretive Statements SINUS RHYTHM POSSIBLE LEFT ATRIAL ENLARGEMENT [-0.1mV P WAVE IN V1/V2] Abnormal ECG Compared to ECG 11/03/2024 13:58:01 No significant changes Electronically Signed On 06-14-2025 14:08:13 EDT by MICHELLE HIDALGO M.D. Dictated By: MICHELLE HIDALGO Signed By: 06/14/25 1408 DD/ 1155 TD/TT: Banquet Line Cook: MAZIN HealthcareRadiology Study observation (narrative)MAZIN HealthcareECG 12-LEAD Ordered By: Radiologist Radiology on 48-48-7968BEPX [facility] Work Phone: coding Summaryon 01-94-6088Wpbcoc SummaryHTMLBase 64 ZsrzmlkxVOt3aEs+PGhlYWQ+FH6TWLAhS26heLVytP8rO7BYZQvCVnssCKTBUFcBQsIzocXwTR9vlTNy ZXJu [file] OiB (more content not included)...[facility] HospitalXR SPINE LUMBAR 2 OR 3 VWSon 10-34-1285NZ SPINE LUMBAR 2 OR 3 VWSXR SPINE [...] Los Santos MD on 06/08/2025 10:19 AMNormalProMedica Kaiser Foundation HospitalIGP,APTIMA HPV,AGE GDLNon 69-34-2068APW GDLN ACOG TESTINGNote.NOMS HealthcareComment on above:TESTS RESULT FLAG UNITS REF RANGE LAB Clinician Provided Cytology Information Source.............Cervix;Endocervix No. of containers..01 ThinPrep Vial Age Algo ACOG Kyleigh... 30-65 01 FLAG LEGEND: L-Low Normal,H-High Normal,LL-Alert Low,HH-Alert High <-Panic Low,>-Panic High,A-Abnormal,AA-Critical Abnormal Performed at: 01 =G [address], [place] [address] Salome Li MD, HPV APTIMANegativeNegativeNOMS HealthcareComment on above:This nucleic acid amplification test detects fourteen high- risk HPV types (16,18,31,33,35,39,45,51,52,56,58,59,66,68) without differentiation. Performed at: = - Lab[address] [id number] Nitro Man: Salome Li MD, Phone: [phone] Performed at: - Lab[address], [place] [id number] Nitro Man: Salome Li MD, Phone: [phone] IGP, APTIMA HPV, RFX 16/18,45Note.NOMS HealthcareComment on above:TESTS RESULT FLAG UNITS REF RANGE LAB DIAGNOSIS: 02 NEGATIVE FOR INTRAEPITHELIAL LESION OR MALIGNANCY. TRICHOMONAS VAGINALIS IS PRESENT. Specimen adequacy: 02 Satisfactory for evaluation. Endocervical and/or squamous metaplastic cells (endocervical component) are present. Performed by: Jarrod Mclain, Item Repair Manager (ASCP) . 02 Note: Note 02 The Pap [...] Low,>-Panic High,A-Abnormal,AA-Critical Abnormal Performed at: [address] [address] Salome Li MD, BRUSH-SPATULA CERVIX ENDOCERVIX CLINISYNCNOMadison Medical CenterRad - Mammography Reporton [id number] - Mammography [id number]#1.00OTGTTrumbull Memorial HospitalReminder Messageson 31-04-6039Vsughzhm Messages From: TONEY MONTOYA DO To: [facility] Innova Card (mGenerator); Sent: 06/04/2025 07:49:47 EDT ! Show up: 06/04/2025 07:49:47 EDT Subject: Results Follow Up Actions: Call the patient with result(s) Due Date/Time: 06/05/2025 07:49:00 EDT Reminder Comments: looks okay Results: Date Result Name Ind Value Ref Range 06/01/2025 12:29 T4 12.11 mcg/dL (6.09 - 12.23) 06/01/2025 12:29 TSH (L) 0.07 mcIU/mL (0.45 - 5.33) Patient notified of resultsMercy Health Perrysburg HospitalRad - Other Radiology Reporton 81-39-8972Akt - Other Radiology Report [id number]#1.00OTJoint [facility] District [facility] Reminder Messageson 94-92-9743Zmqkaumq Messages From: TONEY MONTOYA DO To: [facility] Innova Card (mGenerator); Sent: 06/01/2025 14:32:11 EDT ! Show up: [...] MCV 88 fL (81 - 100) 06/01/2025 12:29 MCH 30 pg (24 - 34) 06/01/2025 12:29 MCHC 34 gm/dL (26 - 37) 06/01/2025 12:29 RDW 14.0 % (11.5 - 15.0) 06/01/2025 12:29 Platelet 256 x103/mcL (138 - 427) 06/01/2025 12:29 MPV 9.5 fL (6.3 - 10.2) 06/01/2025 12:29 Auto Neut % 65 % (44 - 88) 06/01/2025 12:29 Auto Lymph % 28 % (14 - 48) 06/01/2025 12:29 Auto [place] % 5 % (1 - 12) 06/01/2025 12:29 Auto Eos % 1.4 % (0.9 - 4.0) 06/01/2025 12:29 Auto Baso % 0.9 % (0.2 - 2.0) 06/01/2025 12:29 Neut Abs# 4.5 x103/mcL (1.5 - 9.2) 06/01/2025 12:29 Lymph Abs# 1.9 x103/mcL (1.3 - 2.9) 06/01/2025 12:29 [place] Abs# 0.3 x103/mcL (0.0 - 0.8) 06/01/2025 12:29 Eos Abs# 0.1 x103/mcL (0.0 - 0.4) 06/01/2025 12:29 Baso Abs# 0.1 x103/mcL (0.0 - 0.2) pt notifMercy Memorial Hospital.Auto Diff 1on 69-22-8085Avdq [place] %5 %Normal 1-12Mer[facility] Community HospitalComment on above:Performed By: #### [id number], 69761787, 01999180, 9526096998, 6943300, 0704670 ####[facility] (DEFAULT)[address] [place] [address] 15615Gmxi Abs#0.1 m61Lbfvll5.0-0.2[facility] Hospital Comment on above:Performed By: #### [id number], 77156513, 74283894, 9639208579, 3864483, 7912819 ####[facility] (DEFAULT)[address] [place] [address] 15838Onzoeknlj/100 WBC (Bld)0.9 %Normal0.2-2.0[facility] Community HospitalComment on above:Performed By: #### 6367928030, 46922323, 74190611, 4695133527, 8878757, 2648766 ####[facility] (DEFAULT)[address] [place] [address] 74759 Eos Abs#0.1 w83Qiyckb5.0-0.4[facility] HospitalComment on above:Performed By: #### 2523934657, 58011757, 21029439, 4069852774, 1800908, 8615041 ####[facility] (DEFAULT)[address] [place] [address] 55469Wywhgkdoxzn/100 WBC (Bld)1.4 %Normal0.9-4.0Mauniversity hospitals [facility] HospitalComment on above:Performed By: #### 4659631136, 22123035, 86467462, 4357689803, 4810708, 4677541 ####[facility] (DEFAULT)[address] [place] [address] 57428Lwlqr Abs#1.9 y73Ixnokw 1.3-2.9[facility] HospitalComment on above:Performed By: #### 9234681506, 85262574, 58992827, 3020336919, 7984831, 4799331 ####[facility] (DEFAULT)[address] [place] [address] 51262Aswdqlddqai/100 WBC (Bld)28 % Ilmmvw62-47Uoskireq HospitalComment on above:Performed By: #### 5715341559, 70169156, 51455926, 6934071827, 1729378, 2544674 ####[facility] (DEFAULT)[address] [place] [address] 57881Bwpq Abs#0.3 n67Eeulcj5.0-0.8 [facility] HospitalComment on above:Performed By: #### [id number], 92844730, 47537034, 9198639820, 7553655, 6954827 ####[facility] (DEFAULT)[address] [place] [address] 42423Gmdx Abs#4.5 e47Abakid5.5-9.2Mlicking memorial hospitaluder Hospital Comment on above:Performed By: #### 9573690909, 91931349, 66994776, 3294131125, 9123638, 2228853 ####[facility] (DEFAULT)[address] [place] [address] 30367Dyswyfswxsg/100 WBC (Bld)65 %Suudzv56-61Hxgqnovu HospitalComment on above:Performed By: #### 1378124110, 15956956, 33616372, 7206417416, 2090093, 9628584 ####[facility] (DEFAULT)[address] [place] [address] 56997 CBC w/ Auto Diffon 01-43-9736Ptcfvprnynv distribution width (RBC) [Ratio]14.0 % Mwezsr91.5-15.0[facility] HospitalComment on above:Performed By: #### 6897210952, 00465272, 89935549, 4294797655, 8710742, 7340683 ####[facility] (DEFAULT)[address] [place] [address] 46551Smkkoyttru (Bld) [Volume fraction]41.6 %High33.7-40.4[facility] HospitalComment on above:Performed By: #### 6082430899, 73585738, 82898160, 7894044505, 7724193, 0093492 ####[facility] (DEFAULT)[address] [place] [address] 11084Xijquwcthp (Bld) [Mass/Vol]14.0 g/yHCeqevq28.3-15.9[facility] HospitalComment on above:Performed By: #### 5001953264, 71832786, 55627699, 3438601528, 7504709, 3328259 ####[facility] (DEFAULT)[address] [place] [address] 81537Dzz Diff? AutoInvalid Interpretation CodeMckitrick Hospital HospitalComment on above:Performed By: #### 2097622715, 92807375, 92981886, 8298706865, 8736696, 2954115 ####[facility] (DEFAULT)[address] [place] [address] 86621AND (RBC) [Entitic mass]30 ohMenmgr57-97Kvuewpsg HospitalComment on above:Performed By: #### 5606860232, 37194166, 88446528, 4621219451, 5256790, 0832320 ####[facility] (DEFAULT)[address] [place] [address] 71669DEZP (RBC) [Mass/Vol]34 g/pAXhwrxf24-76Nbjrhfew HospitalComment on above:Performed By: #### 1866532765, 96203613, 62824842, 4739320289, 7176150, 3669148 ####[facility] (DEFAULT)[address] [place] [address] 70526KZZ (RBC) [Entitic vol]88 fL Idqnud53-198Hcfruqsk HospitalComment on above:Performed By: #### 3394266567, 09622760, 80105980, 2872261298, 8615517, 1899573 ####[facility] (DEFAULT)[address] [place] [address] 70430Mzipkyxa771 g04Pgozad192-338 [facility] HospitalComment on above:Performed By: #### 4062989235, 73530969, 98746549, 3395397127, 0159960, 2735242 ####[facility] (DEFAULT)[address] [place] [address] 64594Gelqfzfa mean volume (Bld) [Entitic vol]9.5 fLNormal 6.3-10.2[facility]gal[facility] hospital HospitalComment on above:Performed By: #### 6142442514, 25341455, 99941110, 7965569915, 6234292, 2249210 ####[facility] (DEFAULT)[address] [place] [address] 89140GCI2.74 x55Cydcjq7.70-5.30 [facility] HospitalComment on above:Performed By: #### 2063056016, 48124733, 98899834, 2298606019, 2304336, 9797846 ####[facility] (DEFAULT)[address] [place] [address] 30769UKM0.9 x39Iwtcke3.5-10.5[facility] HospitalComment on above:Performed By: #### 0263564921, 42010268, 14083898, 5666550485, 1653811, 8014971 ####[facility] (DEFAULT)[address] [place] [address] 84610 CMP Standardon 57-52-1839sVAG Non AA>60Invalid Interpretation CodeMckitrick Hospital HospitalComment on above:Performed By: #### [id number], 14557443, 58657582, 6640040007, 1811850, 8914066 ####[facility] (DEFAULT)[address] [place] [address] 69191bLZJ AA>60Invalid Interpretation CodeMckitrick Hospital HospitalComment on above:Performed By: #### 3733923774, 16724306, 12538089, 7259264638, 4237010, 7185796 ####[facility] (DEFAULT)[address] [place] [address] 34507Ixwzlcl [Mass/Vol]3.4 g/dLLow3.5-5.0[facility] HospitalComment on above:Performed By: #### 8146750864, 74834709, 25745114, 2139079234, 2373281, 2055073 ####[facility] (DEFAULT)[address] [place] [address] 32588Txw Phos49 IU/ULxwzgx35-64Pdtknqck HospitalComment on above:Performed By: #### 0127871884, 71111339, 97581586, 0505949537, 7573287, 1400275 ####[facility] (DEFAULT)[address] [place] [address] 05706 ALT [Catalytic activity/Vol]7.0 U/LLow14.0-54.0[facility] HospitalComment on above:Performed By: #### 2706467140, 02175041, 44278189, 3373334518, 4592972, 0890319 ####[facility] (DEFAULT)[address] [place] [address] 24423 AST [Catalytic activity/Vol]17 U/ZKnakki72-99Rfkezktp HospitalComment on above: Performed By: #### 8527903515, 12774217, 59637764, 5506754772, 2684029, 6122394 ####[facility] (DEFAULT)[address] [place] [address] 63617Zuuj Total 0.7 mg/dLNormal0.3-1.2[facility] HospitalComment on above:Performed By: #### 6466568076, 11052668, 51721202, 3153982126, 5156632, 7844478 ####[facility] (DEFAULT)[address] [place] [address] 31261Fzttnbq [Mass/Vol]8.8 mg/dLLow8.9-10.3[facility] HospitalComment on above:Performed By: #### 3027293436, 96127729, 41018422, 3545630821, 0599340, 5348942 ####[facility] (DEFAULT)[address] [place] [address] 02467Whjvtffh [Moles/Vol]102 mmol/L Oqhvky290-276Xljlvwbo HospitalComment on above:Performed By: #### 2608897595, 98338097, 88722344, 5588138693, 4390550, 8186152 ####[facility] (DEFAULT)[address] [place] [address] 02853SY7 [Moles/Vol]22 mmol/LNormal 21-32[facility] HospitalComment on above:Performed By: #### 0667813525, 85203406, 20208117, 8055208081, 6493306, 9185993 ####[facility] (DEFAULT)[address] [place] [address] 48152Rzenwlgdkp [Mass/Vol]0.79 mg/dLNormal0.60-1.30 [facility] HospitalComment on above:Performed By: #### 4714648317, 79320879, 67631729, 6996429572, 0566543, 0775751 ####[facility] (DEFAULT)[address] [place] [address] 86438Aimdxbg [Mass/Vol]85.0 mg/mKNdjlad31.0-118.0 [facility] HospitalComment on above:Performed By: #### 4351838765, 61314858, 89643811, 9303907249, 6360849, 1809807 ####[facility] (DEFAULT)[address] [place] [address] 11103Dkyyonkkx [Moles/Vol]4.1 mmol/LNormal3.6-5.1 [facility] HospitalComment on above:Performed By: #### 0203557515, 63840785, 79349274, 9377641198, 2996274, 3830294 ####[facility] (DEFAULT)[address] [place] [address] 72678Bkplvts [Mass/Vol]6.9 g/dLNormal6.5-8.1[facility] HospitalComment on above:Performed By: #### 1856812376, 95983511, 45087917, 8246385448, 0766438, 3811761 ####[facility] (DEFAULT)[address] [place] [address] 71312Igoelw [Moles/Vol]133.0 mmol/MTzf744.0-144.0[facility] HospitalComment on above:Performed By: #### 4029219103, 12703992, 58710461, 9539504652, 2635242, 9689418 ####[facility] (DEFAULT)[address] [place] [address] 65301Ojga nitrogen [Mass/Vol]15 mg/dLNormal8-26[facility] HospitalComment on above:Performed By: #### 1656319011, 45392909, 17890346, 5880347240, 4087518, 8129851 ####[facility] (DEFAULT)[address] [place] [address] 99993Kvzzsdk/Globulin [Mass ratio]0.9 {ratio}Low1.4-2.6 [facility] HospitalComment on above:Performed By: #### 9732984039, 12025404, 79570395, 9437692673, 7800719, 2058100 ####[facility] (DEFAULT)[address] [place] [address] 71464Paxlc gap [Moles/Vol]13.1 mmol/LNormal5.0-19.0 [facility] HospitalComment on above:Performed By: #### 2405149364, 21229556, 09492567, 1987926628, 2075817, 0188275 ####[facility] (DEFAULT)[address] [place] [address] 01347Ssnnumah (S) [Mass/Vol]3.5 g/dLNormal1.5-4.3 [facility] HospitalComment on above:Performed By: #### 4825939208, 04530673, 23434924, 2086582949, 3440659, 1271586 ####[facility] (DEFAULT)[address] [place] [address] 82247Vvkryqjety691 mOsm/LInvalid Interpretation Code [facility] HospitalComment on above:Performed By: #### 6857755653, 21847997, 50740914, 9391093400, 4883922, 2780315 ####[facility] (DEFAULT)[address] [place] [address] 05742Vxmd nitrogen/Creatinine [Mass ratio]18.9 mg/mgHigh 4.6-16.2[facility] HospitalComment on above:Performed By: #### 1102914796, 70891015, 70428991, 4108536530, 4896677, 5186512 ####[facility] (DEFAULT)[address] [place] [address] 01672Tqejk Panel Standardon 24-51-0776Kutoefvkwnd [Mass/Vol]194.0 mg/tZGtwpwz95.0-200.0[facility] Comment on above:Performed By: #### 3738519921, 48808245, 29572838, 2458696413, 3632518, 2090076 ####[facility] (DEFAULT)[address] [place] [address] 04945Wsuqeemurvm in HDL [Mass/Vol]64 mg/lMXblqon85-78Ufejigov HospitalComment on above:Performed By: #### 1255937565, 88745149, 62333658, 5439781504, 3353449, 4530027 ####[facility] (DEFAULT)[address] [place] [address] 38798Cigsczdteomv [Mass/Vol]65.0 mg/dLNormal0.0-150.0[facility] HospitalComment on above:Performed By: #### 5847293146, 45611304, 37777517, 2888026302, 4689487, 2762504 ####[facility] (DEFAULT)[address] [place] [address] 62231Sahosaeicrk in LDL [Mass/Vol]117 mg/dLHigh1-100[facility] HospitalComment on above:Performed By: #### 1320223079, 86625554, 75012388, 7416968513, 0652018, 3448377 ####[facility] (DEFAULT)[address] [place] [address] 12490 Cholesterol.total/Cholesterol in HDL [Mass ratio]3.0 {ratio}Normal0.0-4.5 [facility] HospitalComment on above:Performed By: #### 4211429929, 67083219, 45922908, 2490784938, 0352333, 6385700 ####[facility] (DEFAULT)[address] [place] [address] 45058UTMP.13 mg/dLNormal5-40[facility] HospitalComment on above:Performed By: #### 2793789241, 76699980, 60062291, 8060436655, 3928047, 3031810 ####[facility] (DEFAULT)[address] [place] [address] 02257 T4, Totalon 17-34-2389F3 [Mass/Vol]12.11 ug/dLNormal6.09-12.23[facility] Comment on above:Performed By: #### 0898107923, 11640001, 23411108, 3347661922, 3076080, 8185765 ####[facility] (DEFAULT)[address] [place], [place] [address]TSHon 69-82-9343DYZ Qn0.07 m[IU]/LLow0.45-5.33[facility] HospitalComment on above:Result Comment: General Population (males and non- females, aged 21-88) 0.45 - 5.33 Females, 1st Trimester 0.05 - 3.70 Females, 2nd Trimester 0.31 - 4.35 Females, 3rd Trimester 0.41 - 5.18Performed By: #### 4705955742, 82801480, 45131052, 0513381998, 1583925, 1216815 ####[facility] (DEFAULT)[address] [place], [place] [address]WCQN SCREENING BILATERAL W CADon 67-58-5783OVDO SCREENING BILATERAL W CADMAMM SCREENING BILATERAL W CAD LAURO PINTO 1975 [id number] EXAM: MAMM SCREENING BILATERAL W CAD, 05/30/2025 [...] 05/31/2025 12:22 PM 0A b ADDITIONAL INormalProMedica Kaiser Foundation HospitalUS PELVIS W/ TRANSVAGINALon 51-87-1145[address] [address] Ultrasound Report Signed Patient: LAURO PINTO MR#: [id number] : 1975 Acct:[id number] Age/Sex: 50 / F ADM Date: 05/31/25 Loc: US Attending Dr: Jorge Aguilar D.O. Ordering Physician: Jorge Aguilar D.O. Date of Service: 05/31/25 Procedure(s): US pelvis w/ transvaginal Accession Number(s): [id number] cc: Jorge Aguilar D.O.; TONEY MONTOYA [place] [id number] Patient Name: LAURO PINTO MRN: [facility]:[id number] date: 1975 Sex: F Assigned Patient Location: US Current Patient Location: [place] Accession/Order Number: [id number] Exam Date: 05/31/2025 13:55 Report Date: 05/31/2025 [...] Jr., D.O. 05/31/2025 2:52 PM Dictation Location: [place] [address] Electronically authenticated by: [id number] Y Date: 05/31/2025 14:52 Dictated By: Vlad Chamberlain M.D. Signed By: 05/31/251454 DD/ 51 TD/TT: Banquet Line Cook:MARIAELENAHRadiology, Radiologist, - 05/31/[address] [address] Ultrasound Report Signed Patient: LAURO PINTO MR#: [id number] : 1975 Acct:[id number] Age/Sex: 50 / F ADM Date: 05/31/25 Loc: US Attending Dr: Jorge Aguilar D.O. Ordering Physician: Jorge Aguilar D.O. Date of Service: 05/31/25 Procedure(s): US pelvis w/ transvaginal Accession Number(s): [id number] cc: Jorge Aguilar D.O.; [place] [id number] Patient Name: LAURO PINTO MRN: [facility]:[id number] date: 1975 Sex: F Assigned Patient Location: US Current Patient Location: [place] Accession/Order Number: [id number] Exam Date: 05/31/2025 13:55 Report Date: 05/31/2025 [...] Jr., D.O. 05/31/2025 2:52 PM Dictation Location: [place] [address] Electronically authenticated by: [id number] Y Date: 05/31/2025 14:52 Dictated By: Vlad Chamberlain M.D. Signed By: 05/31/251454 DD/ 51 TD/TT: Banquet Line Cook: MAZIN HealthcareRadiology Study observation (narrative)MZAIN HealthcareUS PELVIS W/ TRANSVAGINALOrdered By: Radiologist Radiology on 74-14-6694BS[facility] Work Phone: Outside Recordson 92-79-1797Jmsxizd Records [id number]#1.00[facility] Outside Recordson 34-61-2052Vrooasm Records [id number]#[address] [place] [address] Pathology Sendout Teston 57-19-1843Yinwrhrrd Send Out.See ReportMercy Health Perrysburg HospitalComment on above:Order Comment: SIGMOID COLON POLYPFAMILY HX COLON CANCER, ANEMIAPerformed By: #### [id number] ####[facility] (DEFAULT)[address] [place] [address] 84291Wgogrxuur Send Out.See ReportMercy Health Perrysburg HospitalComment on above:Order Comment: DESCENDING COLON POLYP FAMILY HX COLON CANCER, ANEMIAPerformed By: #### [id number] #### [facility] (DEFAULT) [address] [place] [address] 314[address]Qxxqrwf Recordson 64-20-2670Wsguznd Records [id number]#[address] [place] [address] Pathology study report documentOrdered By: Dunia Beaulieu on 11-13-2024 [facility] Other Lon 11-10-2024L Specimen: [id number] Received: 11/10/24 Status: WALDO Madsen Num: [id number] Spec Type: Surgical Subm Dr: Jorge Aguilar Tissues: A Endometrial Polyp (ENDOMETRIAL POLYP) Procedures: HE/2, Gross/Micro L4 Age/ Patient Sex Location Account Attending Physician Lauro Pinto 49/F LABELL [id number] Jorge Aguilar SPEC NUM: [id number] RECD: 11/10/24 STATUS: WALDO CALE NUM: [id number] MIGUELITO: 11/10/24-[address] [facility] [address]: Jorge Aguilar ENTERED: 11/10/24-[address] [facility] [address]: Ibeth,Lab SPEC TYPE: [...] submitted in a single cassette. (1, ns, [id number] Edilia PARSON Microscopic Description Microscopic examinations are performed supporting the above interpretation Specimen: [id number] Received: 11/10/24 Status: WALDO Madsen Num: [id number] Spec Type: Surgical Subm Dr: Jorge Aguilar Tissues: A Endometrial Polyp (ENDOMETRIAL POLYP) Procedures: HE/Paramjit, Gross/Micro L4 Patient: Lauro Pinto [id number] (Continued) Specimen: [id number] Received: 11/10/24 (Continued) Signed (signature on file) Dunia Beaulieu MD 11/13/24 1608 Specimen: [id number] Received: 11/10/24 Status: WALDO Madsen Num: [id number] Spec Type: Surgical Subm Dr: Jorge Aguilar Tissues: A Endometrial Polyp (ENDOMETRIAL POLYP) Procedures: HE/2, Gross/Micro L4 Patient: Lauro Pinto [id number] (Continued) Specimen: [id number] Received: 11/10/24 (Continued) CPT Codes 83866 Specimen: [id number] Received: 11/10/24 Status: WALDO Madsen Num: [id number] Spec Type: Surgical Subm Dr: Jorge Aguilar Tissues: A Endometrial Polyp (ENDOMETRIAL POLYP) Procedures: HE/2, [place]/Va L4 Patient: Lauro Pinto [id number] (Continued) Signed (signature on file) Dunia Beaulieu MD 11/13/[address] [place] [address] Physician [facility] 12-LEADon [id number] [address] Electrocardiograph Report Signed Patient: LAURO PINTO MR#: [id number] : 1975 Acct:[id number] Age/Sex: 49 / F ADM Date: 11/03/24 Loc: PST Attending Dr: Jorge Aguilar D.O. Ordering Physician: Jorge Aguilar D.O. Date of Service: 11/03/24 Procedure(s): ECG 12 lead Accession Number(s): [id number] cc: [facility] Test Date: 2024-11-03 Pat Name: LAURO PINTO Department: Room: - Gender: Female Manager Outpatient: : 1975 Requested By: JORGE AGUILAR Order Number: [id number] Christine MD: CHUCKY MANZANO Measurements Intervals [place] Rate: 63 P: 56 [place]: 147 QRS: -5 QRSD: 92 T: 17 QT: 410 QTc: 421 Interpretive Statements SINUS RHYTHM Electronically Signed On 11-05-2024 8:08:21 EST by CHUCKY MANZANO Dictated By: Chucky Manzano D.O. Signed By: 11/05/24 0808 DD/ 1358 TD/TT: Banquet Line Cook:ELIadiolDima de la paz, - 11/05/2024 [place] [address] Electrocardiograph Report Signed Patient: LAURO PINTO MR#: [id number] : 1975 Acct:[id number] Age/Sex: 49 / F ADM Date: 11/03/24 Loc: [facility] Attending Dr: Jorge Aguilar D.O. Ordering Physician: Jorge Aguilra D.O. Date of Service: 11/03/24 Procedure(s): ECG 12 lead Accession Number(s): [id number] cc: [facility] Test Date: 2024-11-03 Pat Name: LUARO PINTO Department: Room: - Gender: Female Manager Outpatient: : 1975 Requested By: JORGE AGUILAR Order Number: [id number] Reading MD: CHUCKY MANZANO Measurements Intervals [place] Rate: 63 P: 56 [place]: 147 QRS: -5 QRSD: 92 T: 17 QT: 410 QTc: 421 Interpretive Statements SINUS RHYTHM Electronically Signed On 11-05-2024 8:08:21 EST by CHUCKY MANZANO Dictated By: Chucky Manzano D.O. Signed By: 11/05/24807 DD/ 1358 TD/TT: Banquet Line Cook: MAZIN Briseon 12-LEADOrdered By: Radiologist Radiology on [id number] Work Phone: ECG 12-LEADon [id number] Study observation (narrative)MAZIN HealthcareHCG ( test) Ql (U)on [id number] and review of laboratory resultsNormalNOMS HealthcarePreg Test, UrNegative NegativeNOMI HealthcareNOMI HealthcareLon 11-01-2024L Specimen: [id number] Received: 11/02/24 Status: WALDO Madsen Num: [id number] Spec Type: Surgical Subm : Jorge Aguilar Tissues: A Endometrium - Biopsy (ENDOMETRIAL BX) Procedures: HE/2, Gross/Va L4 Age/ Patient Sex Location Account Attending Physician Lauro Pinto 49/F [facility] [id number] Jorge Aguilar SPEC NUM: [id number] RECD: 11/02/24 STATUS: WALDO MADSEN NUM: [id number] MIGUELITO: 11/01/24-0000 SUBM : Jorge Aguilar ENTERED: 11/02/[address] [facility] [address]: SPEC TYPE: Surgical DEPT: S ENTERED BY: [id number] RECV BY: [id number] ORDERED: HE/2, Gross/Micro L4 ORDERED: HE, Gross/Micro L4 Pathological Diagnosis Endometrium, biopsy: Fragments [...] submitted in a single cassette. (1, ns, [id number] A) Microscopic Description Sections examined support the above rendered diagnosis. Specimen: [id number] Received: 11/02/24 Status: WALDO Madsen Num: [id number] Spec Type: Surgical Subm Dr: Jorge Aguilar Tissues: A Endometrium - Biopsy (ENDOMETRIAL BX) Procedures: /2, Gross/Micro L4 Patient: Lauro Pinto [id number] (Continued) Signed (signature on file) India Reyes MD 11/03/24 [facility] Specimen: [id number] Received: 11/02/24 Status: WALDO Madsen Num: [id number] Spec Type: Surgical Subm Dr: Jorge Aguilar Tissues: A Endometrium - Biopsy (ENDOMETRIAL BIOPSY) Procedures: JADA/Paramjit, Gross/Micro L4 Age/ Patient Sex Location Account Attending Physician Lauro Pinto 49/F LABELL [id number] Jorge Aguilar SPEC NUM: [id number] RECD: 11/02/24 STATUS: WALDO MADSEN NUM: [id number] MIGUELITO: 11/01/24- SUBM DR: Jorge Aguilar ENTERED: 11/07/[address] [facility] [address]: SPEC TYPE: Surgical DEPT: JORGE KULKARNI ENTERED BY: [id number] RECV BY: [id number] ORDERED: HE/2, Gross/Micro L4 ORDERED: HE/2, Gross/Micro [...] staff Clinical Information Dysfunctional uterine bleeding Specimen: [id number] Received: 11/02/24 Status: WALDO Madsen Num: [id number] Spec Type: Surgical Subm Dr: Jorge Aguilar Tissues: A Endometrium - Biopsy (ENDOMETRIAL BIOPSY) Procedures: Rosa Elena HURT Patient: Lauro Pinto [id number] (Continued) Specimen: [id number] Received: 11/02/24 (Continued) Signed (signature on file) Dunia Beaulieu MD 11/07/24 1928 Specimen: [id number] Received: 11/02/24 Status: WALDO Madsen Num: [id number] Spec Type: Surgical Subm Dr: Jorge Aguilar Tissues: A Endometrium - Biopsy (ENDOMETRIAL BIOPSY) Procedures: Herson HURT/Va L4 Patient: Lauro Pinto [id number] (Continued) Specimen: [id number] Received: 11/02/24 (Continued) Gross Description Part A is received in formalin labeled with the patients name, date of , and EMBx is a pale perez mucoid material, admixed with feathery duarte-pink tissue fragments, 0.8 x 0.3 x 0.1 cm in aggregate. The specimen is filtered and entirely submitted in a single cassette. (1, ns, [id number] A) Microscopic Description Sections examined support the above rendered diagnosis. CPT Codes 29736 Specimen: [id number] Received: 11/02/24 Status: WALDO Madsen Num: [id number] Spec Type: Surgical Subm Dr: Jorge Aguilar Tissues: A Endometrium - Biopsy (ENDOMETRIAL BIOPSY) Procedures: HE/2, Gross/Micro L4 Patient: Lauro Pinto [id number] (Continued) Signed (signature on file) Zbigniew-Antione Beaulieu MD 11/07/[address] [place] [address] Physician GroupOutside Recordson 05-56-9683Cimidua [id number]#1.00OTJoint Township District Memorial HospitalRad - Other Radiology Reporton 16-83-5024Rqx - Other Radiology Report [id number]#1.00OTJoint Township District Memorial HospitalXR CHEST 2 VWSon 82-43-3155FM CHEST 2 VWSXR CHEST 2 VWS XR CHEST 2 VWS INDICATION: Chest cold. FINDINGS: The cardiac silhouette is normal in size. The trachea is midline. No focal pulmonary consolidation. No pleural effusion. No pneumothorax. IMPRESSION: Normal chest x-ray. Finalized by Modesto Montalvo MD on 08/14/2024 4:51 PMNormalProMedica Kaiser Foundation HospitalCoselect specialty hospital [facility] Summaryon 15-67-2947Pceqni SummaryMLBase 64 VfpkfxqfJJt6iKe+PGhlYWQ+NC1IGDAdC16oyVWdnB6kT0KVCRxNOendCMFFBVnOLzEsvsKiNA2mxIAe ZXJu [file] LWN (more content not included)...NormalMercy Hospital AND AUTO DIFFon 58-83-6873PBZUEEAV BASOPHIL0.1 X10E9/LNormal0.0-0.2PWilson [facility] Comment on above:Performed By: #### CBCA #### [facility] ([id number]) [address], [address] [place], [place] [address]BVQAQBUO NEUTROPHIL5.2 X10E9/LNormal1.5-6.6[facility] South CampusComment on above:Performed By: #### CBCA #### [facility] ([id number]) [address], [address] [place], [place] [address]Eqqdrubcq/100 WBC (Bld)0.9 %[facility] Comment on above:Performed By: #### CBCA #### [facility] ([id number]) [address], [address] [place], [place] [address]Tfnzswngbqj (Bld) [#/Vol]0.1 10*3/uLNormal0.0-0.4Fire[facility] Center South CampusComment on above:Performed By: #### CBCA #### [facility] ([id number]) [address], [address] [place], [place] [address]Cthvvgusmpv/100 WBC (Bld)1.1 %[facility] Comment on above:Performed By: #### CBCA #### [facility] ([id number]) [address], [address] [place], [place] [address]Puewulqwvok distribution width (RBC) [Ratio]16.9 %High11.5-15.0 [facility] South CampusComment on above:Performed By: #### CBCA #### [facility] ([id number]) [address], [address] [place], [place] [address]Zlzgwprxvq (Bld) [Volume fraction]28.5 %Gnw06-21IplBlqrqjFirelands Regional Medical Center South CampusComment on above:Performed By: #### CBCA #### [facility] ([id number]) [address], [address] [place], [place] [address]Wzfablyees (Bld) [Mass/Vol]8.6 g/dLLow11.7-15.5PWilson Memorial HospitalComment on above:Performed By: #### CBCA #### [facility] ([id number]) [address], [address] [place], [place] [address]Mbhrbgfyjdn (Bld) [#/Vol]2.0 10*3/uLNormal1.0-3.5PWilson Memorial HospitalComment on above:Performed By: #### CBCA #### [facility] ([id number]) [address], [address] [place], [place] [address]Spdcharkjen/100 WBC (Bld)25.7 %NormalFirelands Regional Medical Center South Campus Comment on above:Performed By: #### CBCA #### [facility] ([id number]) [address], [address] [place] [address]CRY (RBC) [Entitic mass]22.1 skQeb76-11ZleSixpelFirelands Regional Medical Center South CampusComment on above:Performed By: #### CBCA #### [facility] ([id number]) [address], [address] [place], [place] [address]RGJF (RBC) [Mass/Vol]30.3 g/oHYon30-38DrzXlalziFirelands Regional Medical Center South Campus Comment on above:Performed By: #### CBCA #### [facility] ([id number]) [address], [address] [place], [place] [address]PWM (RBC) [Entitic vol]73 oPAbi27-932IoqMcsuthFirelands Regional Medical Center South Campus Comment on above:Performed By: #### CBCA #### [facility] ([id number]) [address], [address] [place] [address]Hhvouugqv (Bld) [#/Vol]0.4 10*3/uLNormal0-0.9[facility] Center South CampusComment on above:Performed By: #### CBCA #### [facility] ([id number]) [address], [address] [place], [place] [address]Rdhowgacf/100 WBC (Bld)4.6 %NormalFirelands Regional Medical Center South Campus Comment on above:Performed By: #### CBCA #### [facility] ([id number]) [address], [address] [place], [place] [address]Gqeljkpzzkj/100 WBC (Bld)67.7 %[facility] Comment on above:Performed By: #### CBCA #### [facility] ([id number]) [address], [address] [place], [place] [address]Jpmztdis mean volume (Bld) [Entitic vol]8.8 fLNormal7-12 [facility] South CampusComment on above:Performed By: #### CBCA #### [facility] ([id number]) [address], [address] [place] [address]Evwxfjlzv (Bld) [#/Vol]257 10*3/pRYabgdw700-317XxgNqnbwg Fremont HospitalComment on above:Performed By: #### CBCA #### [facility] ([id number]) [address], [address] [place], [place] [address]HKE COUNT3.91 X10E12/LNormal3.80-5.20[facility] Comment on above:Performed By: #### CBCA #### [facility] ([id number]) [address], [address] [place], [place] [address]TJF (Bld) [#/Vol]7.7 10*3/uLNormal4.0-11.0ProHca Houston Healthcare WestComment on above:Performed By: #### CBCA #### [facility] ([id number]) [address], [address] [place], [place] [address]Wim - AP Resultson 06-86-3276Uqs - AP Results [id number]#1.00[facility] Consent Formson 85-99-9077Yfjftdq Forms [id number]#1.00[facility] Provider Orderson 83-85-9121Wljzuear Orders [id number]#1.00[facility] Anesthesia Noteon 97-67-9900Nvjbzlvrcy NotePatient: LAURO PINTO Age: 49 years Sex: FEMALE : 1975 Associated Diagnoses: None Author: Chilo Abernathy MD Postoperative Information Post Operative Note Health Status Allergies: Allergic Reactions (All) No known allergies Problem list (past medical history): All Problems Anxiety / SNOMED CT 47583017 / Confirmed Arthritis / SNOMED CT 3089671 / Confirmed Asthma / SNOMED CT 520925733 / Confirmed Constipated / SNOMED CT 36423051 / Confirmed Depressed / SNOMED CT 49443020 / Confirmed Thyroid disease / SNOMED CT 79446806 / Confirmed GERD (gastroesophageal reflux disease) / SNOMED CT 301032446 / Confirmed HTN (hypertension) / SNOMED CT 0631434646 / Confirmed Hypothyroid / SNOMED CT 19189230 / Confirmed Insomnia / SNOMED CT 774236571 / Confirmed IBS (irritable bowel syndrome) / SNOMED CT 83748287 / Confirmed Microcytic anemia / SNOMED CT 430311700 / Confirmed Migraine / SNOMED CT 49467991 / Confirmed Rheumatoid arthritis / SNOMED CT 893349185 / Confirmed Physical Examination VS/Measurements Vital Signs [...] [Verified on: 07/25/2024 13:53 EST] Chilo Abernathy MDMercy Health Perrysburg HospitalAnesthesia NotePatient: LAURO PINTO Age: 49 years Sex: [...] history): All Problems Anxiety / SNOMED CT 35148851 / Confirmed Arthritis / SNOMED CT 6298986 / Confirmed Asthma / SNOMED CT 617434766 / Confirmed Constipated / SNOMED CT 69624779 / Confirmed Depressed / SNOMED CT 81130081 / Confirmed Thyroid disease / SNOMED CT 51580882 / Confirmed GERD (gastroesophageal reflux disease) / SNOMED CT 058489283 / Confirmed HTN (hypertension) / SNOMED CT 9987025515 / Confirmed Hypothyroid / SNOMED CT 42005784 / Confirmed Insomnia / SNOMED CT 996730936 / Confirmed IBS (irritable bowel syndrome) / SNOMED CT 31280223 / Confirmed Microcytic anemia / SNOMED CT 773617808 / Confirmed Migraine / SNOMED CT 17702230 / Confirmed Rheumatoid arthritis / SNOMED CT 408377987 / Confirmed Histories Family History: Thyroid Sister Anxiety Mother Diabetes mellitus Mother Hypertension Father Mother Arthritis Mother CHF - Congestive heart failure Grandparent Migraine Sister Cancer Grandparent Crohn disease Grandparent Parkinsons disease Grandparent Procedure history: Thyroid (931325376). Knee (370397857). Foot (50584619). Tonsil (797251812). Appendectomy (284499780). Back (592882873). Social History Electronic Cigarette/Vaping Assessment Electronic Cigarette [...] Torie Hernadez 08/23/2023 Category: Dr Orlando Davila [facility] 08/23/2023 Category: Dr Kat Nagel Tobacco [...] 25:) Review / Management Laboratory Results Plan [place] [employer] Anesthesiologists#(ASA) physical status classification: Class III. Anesthetic Preoperative Plan Anesthesia: Monitored anesthesia care, non-triggering, vaporizors removed and machine flushed per protocol . Anesthetic plan, risks, benefits, and alternatives discussed with the patient and/or family. Patient verbalized understanding. [Electronically Signed on: 07/25/2024 09:17 EST] Chilo Abernathy MD [Verified on: 07/25/2024 09:17 EST] Chilo Abernathy MDNoRegional Medical CenterInpatient Patient Summaryon 07-25-2024 In[place] [address] Patient Discharge Instructions Name: LAURO PINTO : 1975 Patient Address: [address] [place] [address] Primary Care Provider: Name: TONEY MONTOYA DO After you are discharged if you find you have any questions, please, call [phone] ext [phone] to speak to a nurse. Discharge Diagnosis: 1:Microcytic anemia Prescription Information: If you have been given a prescription for narcotics, seek immediate medical attention if you have any difficulty breathing or any sudden status changes such as confusion andsleepiness. If you or anyone you know is experiencing suicidal thoughts, mental health, alcohol and/or drug addiction problems; contact the Mental Health & Recovery Board [facility] 29/03 Crisis Hotline -Text 4HKQJ un 841817. If you received any narcotics, sedation, or [...] business decisions or sign any legal documents [facility] would like to thank you for allowing us to assist you with your healthcare needs.The following includes patient education materials and information regarding your injury/illness. LAURO PINTO has been given the following list of follow-up instructions, prescriptions, and patient education materials: Follow-up Instructions With: Address: When: Korey Ford [address] [place] [address], [place] [address] Business (1) , only if needed With: [...] procedure? After the procedure, (more content not included)...[facility] 07-25-2024L Specimen: [id number] Received: 07/25/24 Status: WALDO Madsen Num: [id number] Spec Type: Surgical Subm Dr: Korey Ford MD Tissues: A Colon Biopsy (DESCENDING COLON POLYP) B Colon Biopsy (SIGMOID COLON POLYP) Procedures: HE/4, Gross/Va L4/2 Age/ Patient Sex Location Account Attending Physician Lauro Pinto 49/F JOSE [id number] Korey Ford MD SPEC NUM: [id number] RECD: 07/25/24 STATUS: WALDO MADSEN NUM: [id number] MIGUELITO: 07/25/[address] [facility] [address]: Korey Ford MD ENTERED: 07/25/24 [facility] [address]: Lucinda,Leighton SPEC TYPE: Surgical DEPT: MAG KULKARNI ENTERED BY: [id number] REC BY: [id number] ORDERED: HE/4, Gross/Micro L4/2 ORDERED: HE/4, Gross/Micro [...] submitted in a single cassette. (1, ns, [id number] A) Part B is received in formalin labeled with the patients name, date of , and sigmoid colon polyp is a duarte-perez, focally erythematous, friable, 0.4 cm polypoid fragment. The specimen is inked black at the apparent point of attachment, bisected, and entirely submitted in a single cassette. (1, ns, [id number] B) J Specimen: [id number] Received: 07/25/24 Status: WALDO Cale Num: [id number] Spec Type: Surgical Subm Dr: Korey Ford MD Tissues: A Colon Biopsy (DESCENDING COLON POLYP) B Colon Biopsy (SIGMOID COLON POLYP) Procedures: HE/4, Gross/Micro L4/2 Patient: Lauro Pinto [id number] (Continued) Specimen: [id number] Received: 07/25/24 (Continued) Signed (signature on file) Brody Jordan MD 07/26/24 144 Specimen: [id number] Received: 07/25/24 Status: WALDO Madsen Num: [id number] Spec Type: Surgical Subm Dr: Korey Ford MD Tissues: A Colon Biopsy (DESCENDING COLON POLYP) B Colon Biopsy (SIGMOID COLON POLYP) Procedures: JADA/Alexx, Gross/Va L4/2 Patient: Lauro Pinto [id number] (Continued) Specimen: [id number] Received: 07/25/24 (Continued) CPT Codes 37467m0 Specimen: [id number] Received: 07/25/24 Status: WALDO Madsen Num: [id number] Spec Type: Surgical Subm Dr: Korey Ford MD Tissues: A Colon Biopsy (DESCENDING COLON POLYP) B Colon Biopsy (SIGMOID COLON POLYP) Procedures: JADA/Herson Coffey/Va L4/2 Patient: Lauro Pinto [id number] (Continued) Signed (signature on file) Brody Jordan MD 07/26/[address] [place] [address] Physician GroupMAGR Intraoperative Recordon 64-09-2402IQFS Intraoperative RecordMAGR Intra-Op Record Summary Primary Physician: Korey Ford MD Finalized Date/Time: 07/25/24 12:59:58 Pt. Name: LAURO PINTO/Sex: 1975 FEMALE Med Rec #: [id number] Physician: Korey Ford MD Financial #: [id number] Pt. Type: D Room/Bed: / Admit/Disch: 07/25/24 [...] Role Performed Surgeon - Primary Anesthesiologist of Custom Van Converter Record Time In 07/25/24 09:01:00 07/25/24 09:01:00 07/25/24 09:01:00 Time Out 07/25/24 09:31:00 07/25/24 09:31:00 07/25/24 09:31:00 Procedure Esophagogastroduodenosco Esophagogastroduodenosco Esophagogastroduodenosco py and Colonosco py and Colonosco py and Colonosco Last Modified By: Isabel Martinez RN, Erica RN Baumer, Erica RN 07/25/24 09:37:34 07/25/24 09:37:34 07/25/24 09:37:34 Entry 4 Entry 5 Case Attendee Awilda Castillo CSFA Lianna Box BISQUE FINISHER BISQUE FINISHER CSFA Role Performed Scrub Personnel Loft Patternmaker Time In 07/25/24 09:01:00 07/25/24 09:01:00 Time [...] Abernathy MD, Isabel Martinez RN, Lianna Box BISQUE FINISHER CSFA, Awilda Castillo [facility] BISQUE FINISHER Last Modified By: Isabel Martinez RN 07/25/24 [...] Outcome Met (O.80 (more content not included)...Normal [facility] Postoperative Recordon 39-71-3637CNGL Postoperative Record MAGR Phase II Record Summary Primary Physician: Korey Ford MD Finalized Date/Time: 07/25/24 10:30:12 Pt. Name: LAURO PINTO/Sex: 1975 FEMALE Med Rec #: [id number] Physician: Korey Ford MD Financial #: [id number] Pt. Type: D Room/Bed: / Admit/Disch: 07/25/24 [...] Signatures Signed By: Jumana Herbert RN 07/25/24 10:30[facility] Preoperative Recordon 89-70-8384ODOA Preoperative RecordMA Pre-Op Record Summary Primary Physician: Korey Ford MD Finalized Date/Time: 07/25/24 09:05:27 Pt. Name: LAURO PINTO/Sex: 1975 FEMALE Med Rec #: [id number] Physician: Korey Ford MD Financial #: [id number] Pt. Type: D Room/Bed: / Admit/Disch: 07/25/24 [...] Signatures Signed By: Isabel Martinez RN 07/25/24 09:05[facility] HospitalPatient Handouton 96-07-2056Znfemsy HandoutRadiology Upper and lower endoscopy, Care After [...] that are easy to digest. ? Take xvvx-wkg-hhledyc and prescription medicines only as told by [...] provider. Document Revised: 10/05/2023 Document Reviewed: 04/15/2022 [employer] Patient Education ? 2023 [employer].[facility] HospitalPregnancy Test Urine 1on 07-25-2024U PregNegativeMercy Health Perrysburg HospitalComment on above: Performed By: #### [id number] ####[facility] (DEFAULT)[address] [place], [place] [address]I Preg Internal ControlKeenan Private Hospital Comment on above:Performed By: #### [id number] ####[facility] (DEFAULT)[address] [place], [place] [address]Pidoukzc Note - Nurseon 54-12-0409Hkrsuxig Note - NurseWriter spoke with pt and pt stated that she has a family hx of malignant hyperthermia. Per pt her moms sister had an issue. Pt put copywriter on a 3 [address] call with pts mom. Per pts mom her sister had to be packed in ice and pts younger sister also had an issue. After speaking with pt and pts mom copywriter let Dr Abernathy know the above details. 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 She is now s/p completion thyroidectomy -advised her to establish care with local blackener to discuss BOB. They may just decide [...] DAILY Vitals Vital Signs Recorded: 19Dec2021 04:25PM Wisklixrpwc16.8 F Height6 ft 1 in Nekima465 lb 9.6 oz BMI Bhszojxfrs79.33 kg/m2 BSA Calculated2.71 Tobacco Useb) No Fall [...] grossly intact.Neck incision healing well Results/Data Surgical Rayzyeydi52Ysd8544 09:52AMEdy Dominguez [Dec 18, 2021 4:12PM Edy Dominguez] f/u 12/19 Test NameResultFlagReference Case Surgical Pathology(Report) Name LAURO PINTO Pathologist: LILLI AMAYA ASA, MD, PhD Date of Procedure: 12/04/2021 Date Received: 12/04/2021 Date Reported 12/10/2021 Submitting Physician: EDY DOMINGUEZ MD Location: [facility] Other External # FINAL DIAGNOSIS A. RIGHT HEMITHYROID STITCH@ ISTHMUS: MILD FOLLICULAR NODULAR DISEASE: THYROID, RIGHT COMPLETION THYROIDECTOMY SPECIMEN Electronically Signed Out By Haim AMAYA ASA, MD, PhD/SLA By the signature [...] Gross specimen was reviewed in person with Indigo on 12/06/2021 at 6:00 PM. A 1-16 Lobe in toto superior to inferior AMD amd/12/06/2021 [facility] Department of Pathology [address] [place] [address] Procedure 'Scores and Scales' Signatures Electronically signed by : Edy Dominguez MD; Dec 19 2021 7:05PM EST (Author) Normal TouchworksTobacco Screening.on 65-83-7401Gjuo risk assessmenta) No falls within the last mwxoGM-Zrmnllmdvfzswa-Qquoeark Work Phone: Tobacco use status CPHSb) DzNQ-Oqyvtlohvemguz-Vptqaxjw Work Phone: Daily Progress Note-ENTon 55-36-6977Fykvo Progress Note-ENTService: ENT Subjective Data: LAURO PINTO is a 46 year old Female who is Hospital Day # 2 and POD #1 for 1. Completion right thyroidectomy. Additional Information: no issues overnight eating and drinking without issue O: AFVSS postop PTH normal steris in place, neck flat A/P s/p completion thyroidectomy -d/c today -scripts provided Objective Data: Objective Information: T PRBPMAPSpO2 Value36.89889362/156238% Date/Time12/05 4: 4: 4: 4: 17: 4:00 Range(36.2C - 37.2C ) (79 - 90 ) (16 - 18 ) (117 - 142 )/ (59 - 67 ) (90 - 90 ) (93% - 94% ) Highest temp of 37.2 C was recorded at 12/04 20:00 Pain reported at 12/05 5:10: 3 = Mild ---- Intake and Output ----- Mn/Dy/Year TimeIntakeOutputNet Dec 04, 2021 10:00 pm000 Dec 04, 2021 2:00 [id number] The Intake and Output Totals for the last 24 hours are: IntakeOutputNet [id number] Recent Lab Results: Results: RFP: 12/04/2021 11:09 [...] Last Updated: 05-Dec-2021 07:10 by Edy Dominguez)NormalSt. Thomasville Regional Medical CenterMAGNESIUMon 33-95-7396Pnwjkkcwe [Mass/Vol]1.80 mg/dLNormal1.60 - 2.40St. [facility] Medical CenterComment on above:Performed By: #### MG #### [facility] [address] [address] [facility] [place], [place] [address]Qhmqwfzpq, Serumon 71-83-8504Yqguvxjek [Mass/Vol]1.80 mg/dLSee YcbarIH-Ahzdxsralsqafu-Adzfhnss Work Phone: Comment on above:Reference Range: 1.60 - 2.40 PARATHYROID HORMONE,INTACTon 18-15-4964CKMSNERBNRS HORMONE,JQKEHY21.2 pg/mL Jjvdtg01.0 - 88.0St. [facility] Medical CenterComment on above:Performed By: #### PTH #### [address], [place] [address]Fcfffoifrgmg Intact, Serumon 77-80-6506Zfqkbgxszv.intact [Mass/Vol]77.2 pg/mLSee BzozySQ-Cfekazxwprklqn-Ycwgapdm Work Phone: Comment on above:Reference Range: 12.0 - 88.0RENAL FUNCTION PANELon 28-44-0686Xcpvjsi [Mass/Vol]3.4 g/dLNormal3.4 - 5.0St. [facility] Medical CenterComment on above:Performed By: #### RENAL #### [address] [address]Rttdk gap [Moles/Vol]11 mmol/RYsqfuu73 - 20St. [facility] Regional Medical CenterComment on above:Performed By: #### RENAL #### [address] [address]Saeobro [Mass/Vol]8.5 mg/dLLow8.6 - 10.3St. [facility] Medical CenterComment on above:Performed By: #### RENAL #### [address] [address]Qisfjcgf [Moles/Vol]105 mmol/JVqazyz61 - 107St. [facility] Medical CenterComment on above:Performed By: #### RENAL #### [address] [address]Qnixkwiadu [Mass/Vol]0.77 mg/dLNormal0.50 - 1.05St. [facility] Medical CenterComment on above:Performed By: #### RENAL #### [address] [place], [place] [address]bYWC FEMALE>90Normal>90St. [facility]ville Regional Medical CenterComment on above:Result Comment: CALCULATIONS OF ESTIMATED GFR ARE PERFORMED USING THE 2020 CKD-EPI STUDY REFIT EQUATION WITHOUT THE RACE VARIABLE FOR THE IDMS-TRACEABLE CREATININE METHODS. https://jasn.asnjournals.org/content//ASN.8550420663Stzfjegcp By: #### RENAL #### [address] [place], [place] [address]Sojilzw [Mass/Vol]123 mg/uFPvbr07 - 99[facility] Comment on above:Performed By: #### RENAL #### [address] [place] [address]MSB6 (Bld) [Moles/Vol]25 mmol/JLvytro23 - 32St. [facility] Medical CenterComment on above:Performed By: #### RENAL #### [address] [place], [place] [address]Umfdvizpz [Mass/Vol]3.6 mg/dLNormal2.5 - 4.9St. [facility] Medical CenterComment on above:Result Comment: The performance characteristics of phosphorus testing in heparinized plasma have been validated by the individual laboratory site where testing is performed. Testing on heparinized plasma is not approved by the FDA; however, such approval is not necessary.Performed By: #### RENAL #### [address] [place], [place] [address]Zxestojkf [Moles/Vol]4.4 mmol/LNormal3.5 - 5.3St. [facility] Medical CenterComment on above:Performed By: #### RENAL #### [address] [place], [place] [address]Podxgr [Moles/Vol]137 mmol/ORyzoxg659 - 145St. [facility] Medical CenterComment on above:Performed By: #### RENAL #### [address] [place], [place] [address]Shev nitrogen [Mass/Vol]17 mg/dLNormal6 - 23St. [facility] Medical CenterComment on above:Performed By: #### RENAL #### [facility] [address] [address] [place], [place] [address]Xsftz Function Panelon 24-76-4350Nedmonz BCP dye [Mass/Vol]3.4 g/dL3.4 - 5.3UF-Njgdmhmplftbyn-Potkplnq Work Phone: Anion gap [Moles/Vol]11 mmol/L10 - 20 QT-Bhdnzepnlrjadg-Vxntevkn Work Phone: Calcium [Mass/Vol]8.5 mg/dLbelow low threshold8.6 - 10.5QZ-Xozoxpixnxvifi-Mofwvbtr Work Phone: [phone] [Moles/Vol]105 mmol/L98 - 107 DX-Efgbhwqxrjtsmp-Jsolfmsq Work Phone: [phone] [Moles/Vol]25 mmol/L21 - 32 AF-Brqavttqlwfogw-Vyeejvcj Work Phone: [phone] [Mass/Vol]0.77 mg/dLSee Below HI-Hdrxxwsphsvyeb-Hutuyiuy Work Phone: [phone] on above:Reference Range: 0.50 - 1.05Glucose [Mass/Vol]123 mg/dLabove high wysoullvi34 - 72FI-Usuxkhmpgxnjoi-Neucbxxp Work Phone: [phone] [Mass/Vol]3.6 mg/dL2.5 - 4.9 ZE-Iwllykrcqiwcgh-Qanqaklp Work Phone: [phone] on above:The performance characteristics of phosphorus testing in heparinized plasma have been validated by the individual laboratory site where testing is performed. Testing on heparinized plasma is not approved by the FDA; however, such approval is not necessary.Potassium [Moles/Vol]4.4 mmol/L3.5 - 5.1EP-Znedoocgnbxszh-Ssudijnn Work Phone: Sodium [Moles/Vol]137 mmol/L136 - 145 AI-Cjxafbtezgkjgj-Oykylmzh Work Phone: Urea nitrogen [Mass/Vol]17 mg/dL6 - 23 XB-Whgzewunxkprch-Illiivbe Work Phone: Renal Function Panel>90>73XC-Eqzfhbwtaqtnaj-Vlrwlbpf Work Phone: comment on above:CALCULATIONS OF ESTIMATED GFR ARE PERFORMED USING THE 2020 CKD-EPI STUDY REFIT EQUATION WITHOUT THERACE VARIABLE FOR THE IDMS-TRACEABLE CREATININE METHODS.https://jasn.asnjournals.org/content/early//ASN.1293271197 Admission Risk Screen - Adulton 55-84-3212Kndjragzy Risk Screen - Adult Allergies: Allergies: Succinylcholine Chloride: Unknown (Severe) Patient Verification: New W ID Band Applied in my Departmentno Type of ID Patient is WearingW wristband, but not applied here Patient Transferred from Other Facility ([facility], [facility],etc)no Patient Identity Verified Bypatient ID Band FULL [...] AlertFor Ebola-like Symptoms: Isolate Patient and Notify Provider/Gradall Operator For Contact: Notify Provider/Gradall Operator Advance Directive: Advance Directive/DNRno Advance Directive Information [...] Learning Preferencesverbal instruction Cultural Considerationsnone Developmental Considerationsnone Spiritism Considerationsnone Learning Assessment (Other Learner): Other learner availableno Depression Screen: During the past month, have you often been bothered by feeling down, depressed or hopelessno During the past month, have you often had little interest or pleasure in doing thingsno Have you had any thoughts of harming anyone elseno [place] Suicide: Risk Screen Not Applicable/Able to Answerable to be screened In the Past Month: Have you wished you were or could go to sleep and not wake upno(1) In the Past Month: Have you had any actual thoughts of killing yourself no(1) Lifetime: Have you ever done, started to do, or prepared to do anything to end your lifeno(1) [place] Suicide Risknegative Adult Nutrition Screen: Have you [...] Spiritual Screen: Are there any cultural, spiritual, christianity practices/values/needs that are important for us to knowno CAGE: [place] this an [place] [place]/[place]): no Vaccinations: Vaccination - Influenza Vaccination Screen: [...] these conditions Pneumonia v (more content not included)...[facility]. [facility] CORONAVIRUS 2019, SCREEN ASYMPTOMATICon 89-94-9533ERDK OF SYMPTOM ONSET [YYYYMMDD]?CanceledNormalSt. Thomasville Regional Medical CenterComment on above:Order Comment: TEST PT/INR WAS CANCELLED, 07/07/2021 12:20 SPECIMEN CLOTTED.PLEASE RESUBMITDUPLICATE ORDER.Performed By: #### PTINR #### [facility] [address] [place] [address]PZSR-WgK-3 (COVID-19) RNA APURVA+probe Ql (Unsp spec)Canceled Normal. [facility] Medical CenterComment on above:Order Comment: TEST PT/INR WAS CANCELLED, 07/07/2021 12:20 SPECIMEN CLOTTED.PLEASE RESUBMITDUPLICATE ORDER.Result Comment: . This test has received FDA Emergency Use Authorization (EUA) and has been verified by [facility]. This test is only authorized for the duration of time that circumstances exist to justify the authorization of the emergency use of in vitro diagnostic tests for the detection of SARS-CoV-2 virus and/or diagnosis of COVID-19 infection under section 564(b)(1) of the Act, 21 U.S.C. 360bbb-3(b)(1), unless the authorization is terminated or revoked sooner. [facility] is certified under CLIA-88 as qualified to perform high complexity testing. Testing is performed in the [facility] laboratory located at [address] [place] [address]. SARS-CoV-2/Flu/RSV Multiplex Test: Fact sheet for providers: https://www.fda.gov/media/508215/download Fact sheet for patients: https://www.fda.gov/media/358165/downloadPerformed By: #### PTINR #### [facility] [address] [place] [address]Hyg Specimen SourceNasal, NasopharyngealNormalSt. Thomasville Regional Medical CenterComment on above:Order Comment: TEST PT/INR WAS CANCELLED, 07/07/2021 12:20 SPECIMEN CLOTTED.PLEASE RESUBMITDUPLICATE ORDER.Performed By: #### PTINR #### [facility] [address] [place] [address] [address] [place] [address]Ewdgkrlb Intervention - Pharmacyon 42-49-5180Ofcrdjrs Intervention - PharmacyPharmacist's Clinical Intervention: Is this intervention medication reconciliation related: yes, History Electronic Signatures: Feliciano Martínez ([employer]) (Signed 04-Dec-2021 13:41) Authored: Pharmacist's Clinical Intervention Last Updated: 04-Dec-2021 13:41 by Feliciano Martínez ([employer])NormalSt. Thomasville Regional Medical CenterCoronavirus 2019 RNA by PCR, Screening Asymptomticon 12-04-2021 Date and time of symptom pxhtqKcsfcpeyWT-Zaxwhvuaizqmgo-Fkhmomyu Work Phone: coronavirus 2019 RNA by PCR, Screening Asymptomtic UwreclmmOJ-Caqqmpypyqnsrr-Xpzttfjj Work Phone: comment on above:SOURCE: Nasal, Nasopharyngeal.This test has received FDA Emergency Use Authorization (EUA) and has been verified by [facility]. This test is only authorized for the duration of time that circumstances exist to justify the authorization of the emergency use of in vitro diagnostic tests for the detection of SARS-CoV-2 virus and/or diagnosis of COVID-19 infection under section 564(b)(1) of the Act, 21 U.S.C. 360bbb-3(b)(1), unless the authorization is terminated or revoked sooner. [facility] is certified under CLIA-88 as qualified to perform high complexity testing. Testing is performed in the [facility] laboratory located at [address] [place] [address].SARS-CoV-2/Flu/RSV Multiplex Test: Fact sheetfor providers: https://www.fda.gov/media/883983/downloadFact sheet for patients: https://www.fda.gov/media/115167/downloadDischarge Ktjroky1sf 12-04-2021 Discharge Zzzmult1Ykzmziidj Orders: Anticipated Discharge Date: Anticipated Discharge Zodb53-Wgs-6644 Anticipated Discharge Time11:00 Problem List: Additional Dx: [...] (POV) Call to Schedule in2 weeks Phone [phone], please call with any questions CommentsYou will [...] REVIEW of Orders, Appointments, Gold Form - Plant Protection Supervisor Summary Alejandra Shukla (ASST N MGR) (Signed 05-Dec-19 (more content not included)... NormalSt. Thomasville Regional Medical CenterHCG,URINEon 13-82-7230Otqc HCG ( test) Ql (U)NegativeNormalNegativeSt. [facility]ville Regional Medical CenterComment on above:Performed By: #### HCGU #### [facility] [address] [place], [place] [address]Cg Panel Informationon 97-77-0914Qlgb LAURO PINTO Pathologist: LILLI AMAYA ASA, MD, PhD Date of Procedure: 12/04/2021 Date XqyvpgqYR-Fpwvxwvvqqupmm-Hzxajugk Work Phone: Order Reconciliationon 65-24-2533Wctks Reconciliation Page 1 Discharge Reconciliation Document Reconciliation [...] orally christina (more content not included)... NormalSt. Thomasville Regional Medical CenterOrder ReconciliationPage 1 Admission Reconciliation Document Reconciliation Type: [...] not controlled with tylenol cesilia mckee, ICD10: G89.2358-Zdu-1862 Reviewed and Held Vraylar 1.5 mg oral capsule 1 cap(s) orally once a ieu28-Dkv-0521 Cariprazine Capsule (VRAYLAR)DOSE = 1.5 mg Oral DailyVraylar 1.5 mg oral capsule continued as the inpatient order Cariprazine Zoloft 25 mg oral tablet 0.5 tab(s) orally once a qck88-Aim-5725 Reviewed and Held Additional Current Orders Acetaminophen [...] Oral Every 2 Hours, PRN Sore ThroatNormalSt. Thomasville Regional Medical CenterPARATHYROID HORMONE,INTACTon 12-04-2021 PARATHYROID HORMONE,VUFDKG39.9 pg/fCPutrnl81.0 - 88.0[facility] Comment on above:Performed By: #### PTH #### [facility] [address] [place], [place] [address]Mbgjxkiimtti Intact, Serumon 16-04-0739Wgyyokijno.intact [Mass/Vol]38.9 pg/mLSee QgxouIE-Hhnkglspvrjytt-Cmwseule Work Phone: comment on above:Reference Range: 12.0 - 88.0Patient Profile - Adult v2on 22-70-9444Kmcunyz Profile - Adult w6Iggkvwl: Initial Info: How to be Addressedmichelle(1) Spoken Language PreferredEnglish (1) Stated Reason for AdmissionSurgery Wants Family/Rep Notified of Admissionn/a; family present Notify PCPnotify PCP Informed of Patient Visiting Rightsyes Arrived FromOR Patient Belongingsnone Medications Brought to Hospitalno General Health: Blood Avoidance/Restrictionsnone(1) Previous Transfusion Reactionnot applicable(1) Weight in kg155.9 kilogram(s)(2) Weight in nhb077.7 pound(s) Weight Methodstated Scale Typebed Height in [...] and Physical - Surgery > 30 days 31-Mar-2022 07:30 4. Data Referenced From Patient Profile - Adult v2 10-Jul-2021 12:57NormalSt. [facility]ville Regional Medical CenterPatient Profile - Preop v3on 57-46-9088Fbrujqw Profile - Preop q7Zjxkpso Profile - Preop: Initial Info: Patient DemographicsName: LAURO PINTO Date: 1975 Address: [address] [place] [address] Primary Phone [phone] How to be Addressedmichelle Spoken Language PreferredEnglish Source of Informationpatient Stated Reason for Admissionthyroidectomy Primary Contact Name and Numberbrenda-mother Limitations on Visitors/Phone Callsonly immediate family may visit Medications Brought to Hospitalno General Health: Weight in kg155.9 kilogram(s) Weight in mdy367.7 pound(s) Weight Methodstated Height in feet6 feet Height in inches0.95 inch(es) Height in cm185.2 centimeter(s) Height Methodstated BMI (kg/m2)45.453 square meter Patient or Family Member Reaction to Anesthesiafamily reaction; no previous reaction Family Reaction to Anesthesiamalignant hyperthermia Blood Avoidance/Restrictionsnone Previous Transfusion Reactionnot applicable Health Mgmt: [facility]; respiratory Are You no Are You Currently Breastfeedingno Barriers to Managing Healthnone Relationship/Environ: Lives Withdependent child(fely) Living Arrangementshouse Resource/Environmental Concernsnone Anticipated Transition Toinpatient acute unit Services Anticipated at Transitionnone Tobacco Use: Tobacco Useno Pre-op Checklist: Arrival Nfff22-Unt-5808 Arrival Time06:03 Procedure Typethyroidectomy NPOyes Last Food Kwnevz49-Awg-5179 20:00 Last Clear Fluid Byjxxc73-Eqk-1299 20:00 ID Band On Patientpatient ID (name), [...] Last Updated: 04-Dec-2021 06:47 by Portia Naylor (SALLY)NormalSt. Thomasville Regional Medical CenterRENAL FUNCTION PANELon 04-97-7954Xiigasj [Mass/Vol]3.6 g/dLNormal3.4 - 5.0 [facility]Comment on above:Performed By: #### RENAL #### [address] [address]Nbkuh gap [Moles/Vol]13 mmol/SLxuzyf31 - 20St. [facility] Medical CenterComment on above:Performed By: #### RENAL #### [address] [address]Tlgoeum [Mass/Vol]8.5 mg/dLLow8.6 - 10.3St. [facility] Medical CenterComment on above:Performed By: #### RENAL #### [address] [address]Psvdacwj [Moles/Vol]106 mmol/JOyruco51 - 107St. [facility] Medical CenterComment on above:Performed By: #### RENAL #### [address] [address]Rlbcdnlrqz [Mass/Vol]0.89 mg/dLNormal0.50 - 1.05St. [facility] Medical CenterComment on above:Performed By: #### RENAL #### [address] [address]GWB/1.73 sq M.predicted among non-blacks MDRD (S/P/Bld) [Vol rate/Area]81 mL/min/{1.73_m2}Normal>90St. [facility] Medical CenterComment on above: Result Comment: CALCULATIONS OF ESTIMATED GFR ARE PERFORMED USING THE 2020 CKD-EPI STUDY REFIT EQUATION WITHOUT THE RACE VARIABLE FOR THE IDMS-TRACEABLE CREATININE METHODS. https://jasn.asnjournals.org/content/early/ASN.3184455977Uppxophjp By: #### RENAL #### [address] [place], [place] [address]Pvzahcz [Mass/Vol]116 mg/xKSnkb29 - 99[facility] Comment on above:Performed By: #### RENAL #### [address] [place], [place] [address]AKX1 (Bld) [Moles/Vol]21 mmol/OFxjsiw02 - 32St. [facility] Medical CenterComment on above:Performed By: #### RENAL #### [address] [place], [place] [address]Yfuzszips [Mass/Vol]2.5 mg/dLNormal2.5 - 4.9St. [facility] Medical CenterComment on above:Result Comment: The performance characteristics of phosphorus testing in heparinized plasma have been validated by the individual laboratory site where testing is performed. Testing on heparinized plasma is not approved by the FDA; however, such approval is not necessary.Performed By: #### RENAL #### [address] [place], [place] [address]Oelnzfzbo [Moles/Vol]4.1 mmol/LNormal3.5 - 5.3St. [facility] CenterComment on above:Performed By: #### RENAL #### [address] [place], [place] [address]Yuthtl [Moles/Vol]136 mmol/HAmnazn828 - 145St. [facility] Medical CenterComment on above:Performed By: #### RENAL #### [address] [place], [place] [address]Tpyg nitrogen [Mass/Vol]15 mg/dLNormal6 - 23St. [facility] Medical CenterComment on above:Performed By: #### RENAL #### [address] [place], [place] [address]Pnxru Function Panelon 51-86-1762Psjhfyb BCP dye [Mass/Vol]3.6 g/dL3.4 - 5.0YU-Kyijnoszpvwsbt-Nyeklrcn Work Phone: Anion gap [Moles/Vol]13 mmol/L10 - 20 KC-Irqrwsazevhiwr-Ugpuuzqy Work Phone: Calcium [Mass/Vol]8.5 mg/dLbelow low threshold8.6 - 10.7LN-Hfcpjcqtdrxqkw-Fhwmweco Work Phone: Chloride [Moles/Vol]106 mmol/L98 - 107 IL-Uxpeadhhmvdcyg-Qenuetls Work Phone: NZ9 [Moles/Vol]21 mmol/L21 - 32 TD-Wemiqjysnxinmn-Nsuwpmtd Work Phone: Creatinine [Mass/Vol]0.89 mg/dLSee Below UC-Xcwgficvocpolx-Dcvohsim Work Phone: Comment on above:Reference Range: 0.50 - 1.05Glucose [Mass/Vol]116 mg/dLabove high gbrjylohu33 - 89OO-Wrqspsloskmqzg-Xlqmbheh Work Phone: Phosphate [Mass/Vol]2.5 mg/dL2.5 - 4.9 HB-Yiqxcdtkuzewfl-Flnjhjxc Work Phone: Comment on above:The performance characteristics of phosphorus testing in heparinized plasma have been validated by the individual laboratory site where testing is performed. Testing on heparinized plasma is not approved by the FDA; however, such approval is not necessary.Potassium [Moles/Vol]4.1 mmol/L3.5 - 5.2TZ-Lietincotjjizv-Ngvefukq Work Phone: Sodium [Moles/Vol]136 mmol/L136 - 145 EL-Ptedhnpidfedsh-Cjnvchpw Work Phone: Urea nitrogen [Mass/Vol]15 mg/dL6 - 23 VW-Bqcpyrtoxmlrhk-Rajwvrvy Work Phone: Renal Function Panel81 {mL/min/1.73m2}>90 WT-Gtmvkiqmbhmzbs-Exbwkget Work Phone: comment on above:CALCULATIONS OF ESTIMATED GFR ARE PERFORMED USING THE 2020 CKD-EPI STUDY REFIT EQUATION WITHOUT THERACE VARIABLE FOR THE IDMS-TRACEABLE CREATININE METHODS.https://jasn.asnjournals.org/content/early//ASN.7532192894XUB Surgical Pathology Departmenton 90-15-9774MNM Surgical Pathology DepartmentName LAURO PINTO Pathologist: LILLI AMAYA ASA, MD, PhD Date of Procedure: 12/04/2021 Date Received: 12/04/2021 Date Reported 12/10/2021 Submitting Physician: EDY DOMINGUEZ MD Location: [facility] External # FINAL DIAGNOSIS A. RIGHT [...] in toto superior to inferior AMD amd/12/06/2021 [facility] Department of Pathology [address] [place], [place] [address]Comment on above:Performed By: #### [facility] #### [facility] Surgical Pathology Department [address] [facility] [address]Vflfx Teston 91-87-2576JWD ( test) Ql (U) BijtusjqLdclfkebHT-Ehlloafasrmqde-Vafqyghu Work Phone: Established Visit (Otolaryngology)on 10-27-2021 Established [...] MOUTH ONCE DAILY Vitals Vital Signs Recorded: 53Mgz4637 09:32AM Eqvjvtmqdtd77.9 F Wlnmqkib040 Wlbjpgfml76 Height6 ft 1 in Opqshl425 lb BMI Onzsaifbaa20.25 kg/m2 BSA Calculated2.71 Tobacco Useb) No Fall [...] MD; Oct 27 2021 10:15AM EST (Author) NormalUH TouchworksFalls Risk Screeningon 54-97-1704Tjnh risk assessmenta) No falls within the last hdpgSZ-Oupxhdkcufzdvf-Oslnxlql SJW 250 Work Phone: Tobacco use status CPHSb) DeGC-Ngqwzjkjciqaro-Xickjzwx Stre[address] 250 Work Phone: COVID + FLU Quick Testingon 91-37-4324PEBO-CoV-2 (COVID-19) RNA APURVA+probe Ql (Unsp spec)PositiveNocenterpointe hospital Writer.ly Other COVID + FLU Quick TestingNegativeMetropolitan Saint Louis Psychiatric CenteraXess [place] Other Established Visit (Otolaryngology)on 07-21-2021 Established Visit [...] DAILY Vitals Vital Signs Recorded: 21Jul2021 02:48PM Rlrmfzmntls70.9 F Ogbcoqro390 Mvtwqlbfb88 Height6 ft 1 in Yjnoxy225 lb BMI Qoqdbsezkz15.59 kg/m2 BSA Calculated2.69 Tobacco Useb) No Fall Screeninga) No falls within the last year Pain Scale2 Physical Exam Steri-Strips removed, neck incision healing well, no sign of infection or fluid collection 'Scores and Scales' Signatures Electronically signed by : Edy Dominguez MD; Jul 25 2021 4:35AM EST (Author) NormalUH TouchworksTobacco Screening.on 23-60-3144Mhww risk assessmenta) No falls within the last cgbbQR-Zkdbnvdboztijd-Vdjminoo Work Phone: Tobacco use status CPHSb) BkPU-Xlaeeutfgyappt-Jzjclpij Work Phone: Daily Progress Note-ENTon 21-42-2665Bbova Progress Note-ENTService: ENT Subjective Data: LAURO PINTO [...] today Objective Data: Objective Information: T PRBPSpO2 Value36.75784774/5698% Date/Time07/10 22:5307/10 22:5307/10 19: 22:5307/10 22:53 Range(36.2C - 36.8C ) (69 - 83 ) (13 - 18 ) (108 - 133 )/ (56 - 73 ) (97% - 98% ) As of 10-Jul-2021 16:01:00, patient is on 2 L/min of oxygen via room air. Pain reported at 07/11 2:45: 4 = Moderate ---- Intake and Output ----- Mn/Dy/Year TimeIntakeOutputNet Jul 11, 2021 6:00 jp916-88 Jul 10, 2021 10:00 [id number] Jul 10, 2021 2:00 [id number] The Intake and Output Totals for the last 24 hours are: IntakeOutputNet [id number] Recent Lab Results: Results: Coagulation: 07/10/2021 07:50 PT / 12.0 / -------< INR < 1.0 PTT\ 26 \ Assessment and Plan: Comorbidities: Comorbidityobesity Obesitymorbid obesity (BMI 40+) Code Status: Code StatusFull Code Electronic Signatures: Edy Dominguez) (Signed 11-Jul-2021 06:06) Authored: Service, Subjective Data, Objective Data, Assessment and Plan, Note Completion Last Updated: 11-Jul-2021 06:06 by Edy Dominguez)NormalSt. Thomasville Regional Medical CenterAPTCarondelet St. [facility] 25-56-2629xNZP Coag (Bld) [Time]26 fVhadcr61 - 35St. [facility] Medical CenterComment on above:Result Comment: THE APTT IS NO LONGER USED FOR MONITORING UNFRACTIONATED HEPARIN THERAPY. FOR MONITORING HEPARIN THERAPY, USE THE HEPARIN ASSAY.Performed By: #### APTT #### [facility] [address] [place], [place] [address]Teysuhwsx Partial Thromboplastin Timeon 84-06-0820hVXA Coag (PPP) [Time]26 s25 - 02XH-Xsksmzepptzzvg-Yqkpkkld Work Phone: comment on above:THE APTT IS NO LONGER USED FOR MONITORING UNFRACTIONATED HEPARIN THERAPY. FOR MONITORING HEPARIN THERAPY, USE THE HEPARIN ASSAY.Admission Risk Screen - Adulton 70-57-8232Mfzlxhvns Risk Screen - AdultAllergies: Allergies: Succinylcholine Chloride: [...] AlertFor Ebola-like Symptoms: Isolate Patient and Notify Provider/Gradall Operator For Contact: Notify Provider/Gradall Operator Advance Directive: Advance Directive/DNRno Advance Directive Information [...] demonstration; verbal instruction Cultural Considerationsnone Developmental Considerationsnone Spiritism Considerationsnone Learning Assessment (Other Learner): Other learner availableno Depression Screen: During the past month, have you often been bothered by feeling down, depressed or hopelessno During the past month, have you often had little interest or pleasure in doing thingsno Have you had any thoughts of harming anyone elseno [place] Suicide: Risk Screen Not Applicable/Able to Answerable to be screened In the Past Month: Have you wished you were or could go to sleep and not wake upno(1) In the Past Month: Have you had any actual thoughts of killing yourself no(1) Lifetime: Have you ever done, started to do, or prepared to do anything to end your lifeno(1) [place] Suicide Risknegative Adult Nutrition Screen: (more content not included)...NormalSt. Thomasville Regional Medical CenterDischarge Maxmrwa6xk 62-60-8704Yfbwycfgh Yyqyklx9Sudiapern Orders: Anticipated Discharge Date: Anticipated Discharge Gwbd68-Feh-3883 Anticipated Discharge Time11:00 Problem List: Medical History: [...] Course (Home Care/Gold Form), Gold Form - Plant Protection Supervisor Summary Edy Dominguez) (Signed 11-Jul-2021 06:07) Authored: Discharge Orders, Hospital Course (Home Care/Gold Form), Provider FINAL REVIEW of Orders Last Updated: 11-Jul-2021 06:07 by Edy Dominguez)NormalSt. Thomasville Regional Medical CenterHCG,URINEon 72-10-3969Wyor HCG ( test) Ql (U)NegativeNormal NegativeSt. Thomasville Regional Medical CenterComment on above:Performed By: #### HCGU #### [facility] [address] [address] [facility] [place], [place] [address]Kjehduehlg - Coagulationon 85-91-5896URP Coag (PPP) [Relative time]1.0 {INR}0.9 - 1.4DF-Lhkjnrpkcxandv-Csaxclgr Work Phone: PT Coag (PPP) [Time]12.0 sSee Below NJ-Pxgafaqlginjft-Eixanoph Work Phone: comment on above:Reference Range: 10.1 - 13.3No Panel Informationon 59-05-4525Cofl LAURO PINTO Pathologist: LILLI AMAYA ASA, MD, PhD Date of Procedure: 07/10/2021 Date QhizkwzIN-Jrpsyvnqwyywgo-Kbqemuni Work Phone: Order Reconciliationon 44-44-8284Djvbd Reconciliation Page 1 Discharge Reconciliation Document Reconciliation Type: Discharge requested on behalf of Juan Becerra (Resident) done by Juan Becerra (Resident)) Discharge - Reconciliation: 10-Jul-2021 13:57 by: [...] oral tablet 0.5 tab(s) orally once a dayNormalSt. Thomasville Regional Medical CenterOrder ReconciliationPage 1 Admission Reconciliation Document Reconciliation Type: Admission from OR requested on behalf of uJan Becerra (Resident) done by Juan Becerra ( (Resident)) Admission from OR - Reconciliation: 10-Jul-2021 08:48 by: Juan Becerra ( (Resident)) Home MedicationsEnteredLast Dose TakenReconciled with current Order Reconciliation Comment/ Additional Information omeprazole 20 mg oral delayed release capsule 1 cap(s) orally once a day 895577-Cay-3905 PM Pantoprazole Enteric Coated Tablet (PROTONIX)DOSE = 40 mg Oral DailyNotes from Pharmacy: Substitution for Omeprazole 20 mg Oral Capsule Dailyomeprazole 20 mg oral delayed release capsule continued as the inpatient order Pantoprazole Vraylar 1.5 mg oral capsule 1 cap(s) orally once a sjs08-Cup-014607-Tfc-4449 PM Cariprazine Capsule (VRAYLAR)DOSE = 1.5 mg Oral DailyVraylar 1.5 mg oral capsule continued as the inpatient order Cariprazine Zoloft 25 mg oral tablet 0.5 tab(s) orally once a gdg79-Gtl-538255-Qww-1925 PM Sertraline - PEDS Tablet (ZOLOFT)DOSE = [...] Day, and ambulat (more content not included)...NormalSt. Thomasville Regional Medical CenterPT/INRon 92-67-2447BS Coag (PPP) [Time] 12.0 oUnmgsn24.1 - 13.3St. [facility] Medical CenterComment on above:Performed By: #### MG #### [facility] [address] [address] [place], [place] [address]PU, INR1.4Bhvfzo1.9 - 1.1St. [facility] Medical CenterComment on above:Performed By: #### MG #### [facility] [address] [address] [facility] [place], [place] [address]Exrmlyx Profile - Adult v2on 00-70-8807Rcggkre Profile - Adult f4Rfbuhiu: Initial Info: How to be Addressedmichelle(1) Spoken Language PreferredEnglish (1) Source of Informationpatient Stated Reason for Admissionleft thyroidectomy Primary Contact Name and Numberheather [phone] Wants Family/Rep Notified of Admissionyes, primary contact Notify PCPnotify PCP Informed of Patient Visiting Rightsyes Arrived FromOR Was Admitted To in Past 90 Daysnone Patient Belongingsremains with patient Patient Belongings Remaining with Patientclothing; cell phone/electronics; purse/wallet; Purse, clothing, cell phone Medications Brought to Hospitalno General Health: Blood Avoidance/Restrictionsnone(1) Previous Transfusion Reactionno(1) Weight in kg152.9 kilogram(s) Weight in oie205 pound(s) Weight Methodstated Scale Typestanding Height in [...] no (1) Are You Currently Breastfeedingno (1) CLOTHING SORTER 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 Barriers to Managing Healthnone Relationship/Environ: Living [...] From Patient Profile - Preop v3 07-Jul-2021 11:02[facility]Patient [facility] - Preop v3on 31-48-8146Cxcbwlm Profile - Preop w5Meavuud Profile - Preop: Initial Info: Patient DemographicsName: LAURO PINTO Date: 1975 Address: [address] [place] [address] Primary Phone [phone] How to be Addressedmichelle Spoken Language PreferredEnglish Source of Informationpatient Stated Reason for Admissionleft thyroidectomy Primary Contact Name and Numberheather [phone] Patient Belongingsnone Medications Brought to Hospitalno General [...] child(fely) Living Arrangementshouse Resource/Environmental Concernsnone Anticipated Transition Toyance[employer] Services Anticipated at Transitionnone Tobacco Use: Tobacco Useno Pre-op Checklist: Arrival Wsky04-Tmb-5845 Arrival Time06:45 Procedure Typeleft hemithyroidectomy NPOyes Last Food Rwqdzm11-Mqx-0892 18:00 Last Clear Fluid Ofntpk48-Qxy-0643 06:20 ID Band On Patientpatient ID (name) [...] Surgical Update < 30 days 10-Jul-2021 07:14NormalSt. [facility] Department on 10-92-4227ETI Surgical Pathology DepartmentNammyra LAURO PINTO Pathologist: LILLI AMAYA ASA, MD, [...] nodule(s) or nodular follicular disease ADDITIONAL TESTING MELT HELPER BLOCKS: Normal Block: A20 Tumor Block: A8, [...] and has a heterogeneous, gelatinous cut surface. Account Manager Employee Benefits sections of the specimen are submitted in 20 cassettes. A 1 superior lobe, personal financial representative perpendicular sections 2-15 superior to inferior, personal financial representative sections 16 inferior lobe, personal financial representative perpendicular sections 17 isthmus resection margin, en face 18-20 personal financial representative sections of isthmus, from margin to lobe DLS dls/07/14/2021 [facility] Department of Pathology [address] [place], [place] [address]NoPenrose HospitalComment on above:Performed By: #### [facility] #### [facility] Surgical Pathology Department [address] [place], [place] [address]Urine Teston 43-33-6022PCK ( test) Ql (U) OzmvhjboYqbsfcmqCG-Rxflyimvslqqke-Rvcfvglh Work Phone: aPTTon 42-84-9772ZOZSIquvbkixItcoxmKr. Thomasville [facility] Medical CenterComment on above:Order Comment: TEST APTT WAS CANCELLED, 07/07/2021 12:20 SPECIMEN CLOTTED.PLEASE RESUBMIT.Result Comment: THE APTT IS NO LONGER USED FOR MONITORING UNFRACTIONATED HEPARIN THERAPY. FOR MONITORING HEPARIN THERAPY, USE THE HEPARIN ASSAY.Performed By: #### APTT #### [address] [address]Yvlyqsirr Partial Thromboplastin Timeon 40-82-8274zDWN Coag (PPP) [Time]YilggcxvRR-Efqevqblagzxuy-Dtnelruh Work Phone: comment on above:THE APTT IS NO LONGER USED FOR MONITORING UNFRACTIONATED HEPARIN THERAPY. FOR MONITORING HEPARIN THERAPY, USE THE HEPARIN ASSAY.CBC AND DIFFERENTIALon 07-07-2021% AUTOMATED IMMATURE GRAN0.3 %Normal0.0 - 0.9St. [facility] Medical CenterComment on above:Result Comment: Immature Granulocyte Count (IG) includes promyelocytes, myelocytes and metamyelocytes but does not include bands. Percent differential counts (%) should be interpreted in the context of the absolute cell counts (cells/L).Performed By: #### PTINR #### [address] [address]Fnwrtnpmz (Bld) [#/Vol]0.03 10*3/uLNormal0.00 - 0.10St. [facility] Medical CenterComment on above:Performed By: #### PTINR #### [address] [address]Bdsvoeaoo/100 WBC (Bld)0.4 %Normal0.0 - 2.0St. [facility] Medical CenterComment on above:Performed By: #### PTINR #### [address] [address]Lcumzsgnkzh (Bld) [#/Vol]0.10 10*3/uLNormal0.00 - 0.70St. [facility] Medical CenterComment on above:Performed By: #### PTINR #### [address] [address]Fcxwfqqnkfx/100 WBC (Bld)1.5 %Normal0.0 - 6.0St. [facility] Medical CenterComment on above:Performed By: #### PTINR #### [address] [address]Ifsewujogfl distribution width (RBC) [Ratio]13.9 %Paeqhp34.5 - 14.5St. [facility] Medical CenterComment on above:Performed By: #### PTINR #### [address] [place], [place] [address]Azeioosjvd (Bld) [Volume fraction]39.1 %Umbhdo18.0 - 46.0St. [facility] Medical CenterComment on above:Performed By: #### PTINR #### [address] [place], [place] [address]Gvezqafpoz (Bld) [Mass/Vol]11.7 g/dLLow12.0 - 16.0St. [facility] Medical CenterComment on above:Performed By: #### PTINR #### [address] [address]Fzaeyqdjiws (Bld) [#/Vol]1.82 10*3/uLNormal1.20 - 4.80St. [facility] Medical CenterComment on above:Performed By: #### PTINR #### [address] [address]Idmxxydnizh/100 WBC (Bld)26.6 %Itfdob70.0 - 44.0St. [facility] Medical CenterComment on above:Performed By: #### PTINR #### [address] [place], [place] [address]CRPW (RBC) [Mass/Vol]29.9 g/dLLow32.0 - 36.0St. [facility] Medical CenterComment on above:Performed By: #### PTINR #### [address] [place], [place] [address]JKX (RBC) [Entitic vol]89 tTCunlqn86 - 100St. [facility] Medical CenterComment on above:Performed By: #### PTINR #### [address] [address]Ozurpoxrf (Bld) [#/Vol]0.40 10*3/uLNormal0.10 - 1.00St. [facility] Medical CenterComment on above:Performed By: #### PTINR #### [address] [place], [place] [address]Aqjsaqnbl/100 WBC (Bld)5.8 %Normal2.0 - 10.0St. [facility] Medical CenterComment on above:Performed By: #### PTINR #### [address] [place], [place] [address]Hogyfsvrtmd (Bld) [#/Vol]4.47 10*3/uLNormal1.20 - 7.70St. [facility] Medical CenterComment on above:Performed By: #### PTINR #### [address] [address]Mqvfwzzexzz/100 WBC (Bld)65.4 %Etsinw87.0 - 80.0St. [facility] Medical CenterComment on above:Performed By: #### PTINR #### [address] [address]VNQZBTTEI RBC0.0 /100 WBCNormal0.0 - 0.0St. [facility] Medical CenterComment on above:Performed By: #### PTINR #### [address] [address]Mywyfytwf (Bld) [#/Vol]243 10*3/qSKmjghz989 - 450St. [facility] Medical CenterComment on above:Performed By: #### PTINR #### [address] [address]GEB3.40 x10E12/LNormal4.00 - 5.20[facility] Comment on above:Performed By: #### PTINR #### [address] [address]ZNM (Bld) [#/Vol]6.8 10*3/uLNormal4.4 - 11.3St. [facility] Medical CenterComment on above:Performed By: #### PTINR #### [address] [address]EZEUJTHXDLJOX PANELon 70-40-6954Vrmruid [Mass/Vol]4.0 g/dL Normal3.4 - 5.0St. [facility] Medical CenterComment on above:Performed By: #### PTINR #### [address] [place] [address]MLQ [Catalytic activity/Vol]49 U/QNyiblf65 - 110St. [facility] Medical CenterComment on above:Performed By: #### PTINR #### [address] [place], [place] [address]TAA [Catalytic activity/Vol]5 U/LLow7 - 45St. [facility] Medical CenterComment on above:Result Comment: Patients treated with Sulfasalazine may generate falsely decreased results for ALT.Performed By: #### PTINR #### [address] [address]Cigon gap [Moles/Vol]11 mmol/WHhyawy32 - 20St. [facility] Medical CenterComment on above:Performed By: #### PTINR #### [address] [address]YOE [Catalytic activity/Vol]13 U/LNormal9 - 39St. [facility] Medical CenterComment on above:Performed By: #### PTINR #### [address] [address]Ihdqkfttk [Mass/Vol]0.5 mg/dLNormal0.0 - 1.2St. [facility] CenterComment on above:Performed By: #### PTINR #### [address] [address]Jlmldvx [Mass/Vol]8.8 mg/dLNormal8.6 - 10.3St. [facility] CenterComment on above:Performed By: #### PTINR #### [address] [address]Vslpxoup [Moles/Vol]106 mmol/CIxswnv93 - 107St. [facility] Medical CenterComment on above:Performed By: #### PTINR #### [address] [address]Bebrthvuby [Mass/Vol]0.69 mg/dLNormal0.50 - 1.05St. [facility] Medical CenterComment on above:Performed By: #### PTINR #### [address] [place], [place] [address]BNG-ILGNVZG AM.>60Normal>60St. [facility] Medical CenterComment on above:Result Comment: CALCULATIONS OF ESTIMATED GFR ARE PERFORMED USING THE MDRD STUDY EQUATION FOR THE IDMS-TRACEABLE CREATININE METHODS. CLIN CHEM 2007;53:766-72Performed By: #### PTINR #### [address] [place], [place] [address]VSC-DGI AM.>60Normal>60St. [facility] Medical CenterComment on above:Performed By: #### PTINR #### [address] [address]Chkhvkz [Mass/Vol]101 mg/uTUboa59 - 99[facility] Comment on above:Performed By: #### PTINR #### [address] [address]QTG4 (Bld) [Moles/Vol]24 mmol/GUncnec29 - 32St. [facility] Medical CenterComment on above:Performed By: #### PTINR #### [address] [address]Aozrqewdp [Moles/Vol]4.0 mmol/LNormal3.5 - 5.3St. [facility] Medical CenterComment on above:Performed By: #### PTINR #### [address] [address]Ayttkat [Mass/Vol]7.1 g/dLNormal6.4 - 8.2St. [facility] CenterComment on above:Performed By: #### PTINR #### [address] [address]Zcxcud [Moles/Vol]137 mmol/ZNydiqa902 - 145St. [facility] Medical CenterComment on above:Performed By: #### PTINR #### [address] [address]Bhhm nitrogen [Mass/Vol]16 mg/dLNormal6 - 23St. [facility] Medical CenterComment on above:Performed By: #### PTINR #### [facility] [address] [place], [place] [address]LLOJMFKLVCL 2019, SCREEN ASYMPTOMATICon 20-17-4257HTTC-CoV-2 (COVID-19) RNA APURVA+probe Ql (Unsp spec)Not detectedNormalNot DetectedUH Overlook Medical CenterComment on above:Result Comment: . This assay is [...] patient management decisions. Fact sheet for providers: https://www.fda.gov/media/449207/download Fact sheet for patients: https://www.fda.gov/media/354048/download This test has received FDA Emergency Use Authorization (EUA) and has been verified by [facility] ([facility]). This test is only authorized for the duration of time that circumstances exist to justify the authorization of the emergency use of in vitro diagnostic tests for the detection of SARS-CoV-2 virus and/or diagnosis of COVID-19 infection under section 564(b)(1) of the Act, 21 U.S.C. 360bbb-3(b)(1), unless the authorization is terminated or revoked sooner. [facility] is certified under CLIA-88 as qualified to perform high complexity testing. Testing is performed in the [facility] laboratories located at [address] [place] [address].Performed By: #### COVSC #### [facility] [id number] [place], [place] [address]Lab Specimen SourceNasal, NasopharyngealNormalUH Overlook Medical CenterComment on above:Performed By: #### COVSC #### [facility] [id number] [place] [address] [place] [address]Qghadygr Blood Count + Differentialon 94-76-3192Ynxbjwqkz/100 WBC (Bld)0.4 %0.0 - 2.9WU-Klfkkkefxorehd-Dkklusfq Work Phone: Erythrocyte distribution width (RBC) [Ratio]13.9 %See NrdgjZL-Goxuvuwlyokoco-Jtnrdein Work Phone: [phone] on above:Reference Range: 11.5 - 14.5 Hematocrit (Bld) [Volume fraction]39.1 %See VilnjOR-Tfrisxpcvlkbok-Upflbinn Work Phone: Comment on above:Reference Range: 36.0 - 46.0 Hemoglobin (Bld) [Mass/Vol]11.7 g/dLbelow low thresholdSee Below PageScience Work Phone: Comment on above:Reference Range: 12.0 - 16.0 Lymphocytes/100 WBC (Bld)26.6 %See TcpznLE-Exaxqspnnqrmvv-Hakeijpp Work Phone: Comment on above:Reference Range: 13.0 - 44.0MCHC (RBC) [Mass/Vol]29.9 g/dLbelow low thresholdSee JpyqvQK-Ngdkshvzzwnguc-Uvbbljth Work Phone: Comment on above:Reference Range: 32.0 - 36.0MCV (RBC) [Entitic vol]89 fL80 - 457KQ-Eblzeeaijthpiy-Bcvcwefa Work Phone: Monocytes/100 WBC (Bld)5.8 %2.0 - 10.0 GD-Bloavbuhkdemzo-Qcrkwtqb Work Phone: [phone]/100 WBC (Bld)65.4 %See Below [employer] Work Phone: Comment on above:Reference Range: 40.0 - 80.0Platelets (Bld) [#/Vol]243 10*3/uL150 - 272CL-Kvrgwgntgeofkp-Zquzvkgv Work Phone: [phone] (Bld) [#/Vol]4.40 {x10E12/L}See Below ZZ-Fbrqqlqyfrcolx-Rwarvwat Work Phone: [phone] on above:Reference Range: 4.00 - 5.20WBC (Bld) [#/Vol]6.8 10*3/uL4.4 - 11.5TQ-Hdzbwurgbzggmq-Hiskzcwn Work Phone: [phone] Blood Count + Differential0.03 {x10E9/L}See BwatzVY-Sgezmwulglmazy-Fiwtidxc Work Phone: [phone] on above:Reference Range: 0.00 - 0.10Complete Blood Count + Differential0.10 {x10E9/L}See TypabTE-Jahulsgnkvavee-Nrrnexrr Work Phone: [phone] on above:Reference Range: 0.00 - 0.70Complete Blood Count + Differential0.40 {x10E9/L}See EdzphOF-Rkdcxvqwthzwnh-Ajgdghpa Work Phone: Comment on above:Reference Range: 0.10 - 1.00Complete Blood Count + Differential1.82 {x10E9/L}See AxrebAH-Kqxmrkrbbcpegb-Qtevavyx Work Phone: Comment on above:Reference Range: 1.20 - 4.80Complete Blood Count + Differential4.47 {x10E9/L}See IqhyzQJ-Vhkazyxmrpyvvd-Lyyuygqi Work Phone: [phone] on above:Reference Range: 1.20 - 7.70Complete Blood Count + Differential1.5 %0.0 - 6.6AQ-Tvxxbimaykmyxx-Ynqnjkuv Work Phone: [phone] Blood Count + Differential0.3 %0.0 - 0.9 IU-Yngknsjjumdhms-Odohogxs Work Phone: comment on above:Immature Granulocyte Count (IG) includes promyelocytes, myelocytes and metamyelocytes but does not include bands. Percent differential counts (%) should be interpreted in the context of the absolute cell counts (cells/L).Complete Blood Count + Differential0.0 {/100_WBC}0.0 - 0.6PS-Cxaqhdhgatwgpz-Harjchfp Work Phone: coronavirus 2019 RNA by PCR, Screening Asymptomticon 30-93-1186Lghsvnykphv 2019 RNA by PCR, Screening AsymptomticNot detectedNormal See BfhftQI-Djelahcvpoabbx-Leovmnez Work Phone: comqece on above:SOURCE: Nasal, NasopharyngealReference Range: Not Detected.This [...] make patient management decisions.Fact sheet for providers: https://www.fda.gov/media/915980/downloadFact sheet for patients: https://www.fda.gov/media/838668/downloadThis test has received FDA Emergency Use Authorization (EUA) and has been verified by [facility] ([facility]). This test is only authorized for the duration of time that circumstances exist to justify the authorization of the emergency use of in vitro diagnostic tests for the detection of SARS-CoV-2 virus and/or diagnosis of COVID-19 infection under section 564(b)(1) of the Act, 21 U.S.C. 360bbb- 3(b)(1), unless the authorization is terminated or revoked sooner. [facility] is certified under CLIA-88 as qualified to perform high complexity testing. Testing is performed in the [facility] laboratories located at [address] [place] [address].Covid 19 Resultson 07-07-2021 SARS-CoV-2 (COVID-19) RNA APURVA+probe [...] may also be contacted by the [facility] to see if any of your close [...] or Naproxen (Aleve) can also be used. Clga-lmk-svfyuih cough and cold medicines can be used according to the instructions on the package. Some izfp-hhj-dhtqpqb medicines also contain acetaminophen. Make sure you [...] water are not available, use alcohol-based hand tv host. Avoid touching your eyes, nose, and mouth [...] gone for 24 carson (more content not included)...NormalUH Overlook Medical CenterEstablished Visit (Otolaryngology) on 24-03-1925Brikazxfzlp Visit (Otolaryngology)Diagnoses/Problems Thyroid nodule (241.0) (E04.1) Provider [...] Complaint Goiter, thyroid nodule History of Present Shcprcq73-ezgg-enr female referred by Dr. Christian for evaluation [...] MD; Jul 07 2021 12:41PM EST (Author) [facility] TouchworksLaboratory - Chemistry and Chemistry - challengeon 07-07-2021 Albumin BCP dye [Mass/Vol]4.0 g/dL3.4 - 5.2HM-Niykxxzbfoubmo-Zgqbzajy Work Phone: [phone] [Catalytic activity/Vol]49 U/L33 - 110 SA-Zicdnmtjzekuig-Exmgfvje Work Phone: [phone] With P-5'-P [Catalytic activity/Vol]5 U/Lbelow low threshold7 - 85BY-Jfqgsvwlawjrlo-Ksdajspt Work Phone: [phone] on above:Patients treated with Sulfasalazine may generate falsely decreased results for ALT.Anion gap [Moles/Vol]11 mmol/L10 - 81LW-Ahzvmsmmauxion-Avucdaed Work Phone: [phone] With P-5'-P [Catalytic activity/Vol]13 U/L9 - 39 VW-Cprwsdhjnedwsh-Tysupqal Work Phone: Ailirubin [Mass/Vol]0.5 mg/dL0.0 - 1.2 PY-Hgimbulhotdjun-Wbnrhjfy Work Phone: [phone] [Mass/Vol]8.8 mg/dL8.6 - 10.3 JS-Csaqwdrzhlifot-Jyulxsvv Work Phone: [phone] [Moles/Vol]106 mmol/L98 - 107 YM-Oaxvgkwcsyzqem-Lvhdnbfn Work Phone: [phone] [Moles/Vol]24 mmol/L21 - 32 TI-Jhjslxdkfpbmgg-Tlawmbot Work Phone: [phone] [Mass/Vol]0.69 mg/dLSee Below ZK-Bucyxbdpbzgrvz-Njojivmu Work Phone: Comment on above:Reference Range: 0.50 - 1.05Glucose [Mass/Vol]101 mg/dLabove high - 25YY-Hqgqyfictuviuc-Mpthydpk Work Phone: Potassium [Moles/Vol]4.0 mmol/L3.5 - 5.3 BY-Kkzdwndknyhhyo-Uwptczeu Work Phone: [phone] [Mass/Vol]7.1 g/dL6.4 - 8.2 MP-Xmjmjuvccvhirf-Hdsbliuu Work Phone: Sodium [Moles/Vol]137 mmol/L136 - 145 YE-Ibqtbgfejlhplx-Wphtfvto Work Phone: Urea nitrogen [Mass/Vol]16 mg/dL6 - 23 JU-Kbjwencxleyxhd-Pstmoysi Work Phone: [phone] - Coagulationon 77-76-6527YMZ Coag (PPP) [Relative time]TlwwltkjHH-Hicphzfxpjpjbu-Fkfatxkk Work Phone: [phone] Coag (PPP) [Time]TwecqmtrME-Ytnrruocuijuvb-Pdyrcslb Work Phone: [phone] Panel Informationon 07-07-2021>60>60 YT-Jwrsyscjmshmaw-Gnkehfmi Work Phone: comment on above:CALCULATIONS OF ESTIMATED GFR ARE PERFORMED USING THE MDRD STUDY EQUATION FOR THE IDMS-TRACEABLE CREATININE METHODS. CLIN CHEM 2007;53:766-72 [email or web address]?RetrieveTestByDateTime?Patien fNW=[id number]&Da te=09-16-2020&Time=10%3a44%3a00%3a00&TestType=ECG&Site=12&OutputType=PDF&Ext=PDF DY-Mzmjmermdlbpfr-Tzzwxpgv Work Phone: Normal sinus ndkyiyLR-Fsomsakkecjowk-Cxaaedve Work Phone: [phone]-Sunoiutjfrcmgx-[place] Work Phone: [phone] 5IV-Yxsttrahvwzvez-Dxkywynd Work Phone: [phone] 2WO-Eklwqjdmnllsmm-Qffjigxf Work Phone: [phone] 2NR-Uwbauywnxrbsrl-Qynbtdmy Work Phone: [phone] 9UO-Lkjhjsihvpgszv-Rfrnfnod Work Phone: [phone] 9LG-Brdywbtcenjtsg-Hoddvlqg Work Phone: [phone] 6DT-Wsvyqqerhgaxzc-Vrsfvzpa Work Phone: [phone] 2MC-Uykrztzlfgxigy-Xuonemqw Work Phone: [phone] 4DW-Pvfhnrpnplcjcj-Rnkubvul Work Phone: [phone] 2OK-Uzhcfzbyieomvf-Msoorwca Work Phone: [phone] 6QF-Kcjexajthlzlnf-Dvyfekab Work Phone: [phone] 7LR-Xsxfthmomckxvw-Npuvzfyh Work Phone: [phone] 9JK-Mxpscxercjvuyt-Snmomlpm Work Phone: [phone] 6IV-Efnzfpzrrwbcdb-Crnkamhy Work Phone: [phone] 2LP-Sqfcggunxxlcqd-Pyfnzgtm Work Phone: PT/INRon [phone] TIMECanceledNormalSt. Thomasville Regional Medical CenterComment on above:Order Comment: TEST PT/INR WAS CANCELLED, 07/07/2021 12:20 SPECIMEN CLOTTED.PLEASE RESUBMITDUPLICATE ORDER.Performed By: #### PTINR #### [address] [place], [place] [address]EM, INRCanceledNormalSt. Thomasville Regional Medical CenterComment on above: Order Comment: TEST PT/INR WAS CANCELLED, 07/07/2021 12:20 SPECIMEN CLOTTED.PLEASE RESUBMITDUPLICATE ORDER.Performed By: #### PTINR #### [address] [place], [place] [address]Azpstdxemye Visit (Otolaryngology)on 58-79-5292Sladuskeoyq Visit (Otolaryngology)Diagnoses/Problems Thyroid nodule (241.0) (E04.1) Provider [...] Complaint Goiter, thyroid nodule History of Present Bszhasu53-uuxa-usx female referred by Dr. Christian for evaluation [...] MD; Jun 13 2021 4:51AM EST (Author) [facility] Panel Informationon 92-90-8952EL-OtolaryngologyLong Prairie Memorial Hospital [facility] Work Phone: [facility] Surgical Pathology Departmenton 64-82-0596EWW Surgical Pathology DepartmentName BLAIR LAURO Pathologist: MIGUEL GAMBLE MD Date of Procedure: 04/28/2021 Date Received: 04/28/2021 Date Reported 04/29/2021 Submitting Physician: EDY DOMINGUEZ MD Location: [facility] Other External # FINAL DIAGNOSIS [facility] [id number] (11/14/2020): LEFT THYROID FINE NEEDLE ASPIRATE: --BENIGN FOLLICULAR NODULAR (NODULAR HYPERPLASIA). Electronically Signed Out By MIGUEL GAMBLE MD/BEBA By the signature on this report, the individual or group listed as making the Final Interpretation/Diagnosis certifies that they have reviewed this case. Clinical History: FNA thyroid nodule Specimens Submitted As: A: [facility] [id number] (11/14/2020) Slide/Block Description Received from [employer], [address] [place] [address], are thirteen (13) slides labeled [id number] Keep Slides: N Slides Returned: N Personal Consult: [facility] HospitalComment on above:Performed By: #### [facility] #### [facility] Surgical Pathology Department [address] [facility] [address]Tbqkbcu Visit (Otolaryngology)on 31-49-5912Vcifmni Visit (Otolaryngology)Diagnoses/Problems Thyroid nodule (241.0) (E04.1) Provider [...] Complaint Goiter, thyroid nodule History of Present Fzktqyt13-hqsh-eyy female referred by Dr. Christian for evaluation [...] MOUTH ONCE DAILY Vitals Vital Signs Recorded: 12Udj3764 02:27PM Cxlbikgazqv00.2 F Nsmfnsik006 Ricmmdncq03 Height6 ft 1 in Mqetqp685 lb BMI Wtopfpmybh29.33 kg/m2 BSA Calculated2.68 Tobacco Useb) No Fall [...] MD; May 04 2021 2:13PM EST (Author) [facility] TouchworksTobacco Screening.on 59-36-7919Egvt risk assessmenta) No falls within the last jxeaPI-Fwqfwvozlkhptg-Zqtdcmjd Work Phone: Tobacco use status CPHSb) WaIK-Qycayejunbysws-Urwjclam Work Phone: cTA CHEST WO W CONon [phone] CHEST WO W CON EXAMINATION: CTA CHEST [...] Electronically authenticated by: AMBREEN ZENDEJAS Date: 2020-08-28 22:10[facility] AUTO DIFFon [id number] (Bld) [#/Vol]0.0 103/ul Normal0.0-0.1[facility] HospitalComment on above:Performed By: #### CBC #### [facility] [address] [place] [address] Aminata KarenBasophils/100 WBC (Bld)0.3 %Normal0.2-2.0[facility] Comment on above:Performed By: #### CBC #### [facility] [address] [place] [address] Aminata KarenEosinophils (Bld) [#/Vol]0.0 103/ulNormal0.0-0.7The [facility] HospitalComment on above:Performed By: #### CBC #### [facility] [address] [place] [address] Aminata KarenEosinophils/100 WBC (Bld)0.2 %Critically low0.9-7.0The [facility] HospitalComment on above:Performed By: #### CBC #### [facility] [address] [place] [address] Aminata KarenErythrocyte distribution width (RBC) [Ratio]13.6 %Ljliwb74.0-15.0The [facility] HospitalComment on above:Performed By: #### CBC #### [facility] [address] [place] [address] Aminata KarenHematocrit (Bld) [Volume fraction]39.9 %Soustv56.0-48.0The [facility] HospitalComment on above:Performed By: #### CBC #### [facility] [address] [place] [address] Aminata KarenHemoglobin (Bld) [Mass/Vol]12.5 g/kPImslpj40.0-16.0The [facility] HospitalComment on above:Performed By: #### CBC #### [facility] [address] [place] [address] Aminata KarenIG #0.02 10e3/ulNormal0.00-0.03The [facility] HospitalComment on above:Performed By: #### CBC #### [facility] [address] [address] Aminata KarenIG %0.2 %Normal0.0-0.5The [facility] HospitalComment on above: Performed By: #### CBC #### [facility] [address] [place] [address] Aminata KarenLymphocytes (Bld) [#/Vol]2.3 103/ulNormal1.2-3.8The [facility] HospitalComment on above:Performed By: #### CBC #### [facility] [address] [place] [address] Aminata KarenLymphocytes/100 WBC (Bld)20.1 %Critically low20.5-60.0The [facility] HospitalComment on above:Performed By: #### CBC #### [facility] [address] [place] [address] Aminata KarenMANUAL DIFF REQNONormalThe [facility] HospitalComment on above: Performed By: #### CBC #### [facility] [address] [place] [address] Aminata KarenMCH (RBC) [Entitic mass]27.0 zrGijvyf66.7-34.0[facility] Comment on above:Performed By: #### CBC #### [facility] [address] [place] [address] Aminata KarenMCHC (RBC) [Mass/Vol]31.3 g/lUZpmpnn93.9-35.2[facility] Comment on above:Performed By: #### CBC #### [facility] [address] [place] [address] Aminata KarenMCV (RBC) [Entitic vol]86.2 kRHejdgm68.0-99.0[facility] Comment on above:Performed By: #### CBC #### [facility] [address] [place] [address] Aminata KarenMonocytes (Bld) [#/Vol]0.5 103/ulNormal0.3-0.8Th[facility] Comment on above:Performed By: #### CBC #### [facility] [address] [place], [place] [address] Aminata KarenMonocytes/100 WBC (Bld)4.5 %Normal1.7-12.0[facility] Comment on above:Performed By: #### CBC #### [facility] [address] [address] Aminata KarenNeutrophils (Bld) [#/Vol]8.4 103/ulCritically high1.4-6.5The [facility] HospitalComment on above:Performed By: #### CBC #### [facility] [address] [address] Aminata KarenNeutrophils/100 WBC (Bld)74.7 %Gxhzbb32.0-75.0[facility] Comment on above:Performed By: #### CBC #### [facility] [address] [place] [address] Aminata KarenPlatelet mean volume (Bld) [Entitic vol]10.6 fLNormal9.5-13.5The [facility] HospitalComment on above:Performed By: #### CBC #### [facility] [address] [place] [address] Aminata KarenPlatelets (Bld) [#/Vol]293 103/iiSvehjn898-055Yho [facility] Comment on above:Performed By: #### CBC #### [facility] [address] [place] [address] Aminata KarenRBC (Bld) [#/Vol]4.63 106/ulNormal4.20-5.40[facility] Comment on above:Performed By: #### CBC #### [facility] [address] [place] [address] Aminata KarenWBC (Bld) [#/Vol]11.2 103/ulCritically high4.0-11.0[facility] HospitalComment on above:Performed By: #### CBC #### [facility] [address] [place] [address] Aminata KarenCULTURE URINEon 91-20-8473KWRUBOJ URINECulture Observations: NORMAL GENITAL FRANK. NO POTENTIAL PATHOGENS SEENPremier Health [facility] Comment on above:Performed By: #### URCX #### [facility] [address] [place] [address] Aminata KarenER URINE PROFILEon 65-68-6668Guvesxfut [Mass/Vol]NegativeNormal NEGATIVEAdena Pike Medical Center HospitalComment on above:Performed By: #### KAITLIN ERUR #### [facility] [address] [place] [address] Aminata KarenBLOODTRACE-INTACTAbnormalNEGATIVEMercy Health Willard HospitalComment on above:Performed By: #### GIULIANO MADRIGALR #### [facility] [address] [place] [address] Aminata KarenClarity (U)CLEARNormalCLEARMercy Health Willard HospitalComment on above: Performed By: #### GIULIANO MADRIGALR #### [facility] [address] [place] [address] Aminata KarenColor (U)LT. YELLOWNormalYELLOWMercy Health Willard HospitalComment on above:Performed By: #### GIULIANO MADRIGALR #### [facility] [address] [place] [address] Aminata KarenERUAHDA micrscopic examination will be performed if indicated.Normal The [facility] HospitalComment on above:Performed By: #### KAITLIN ERUR #### [facility] [address] [place] [address] Aminata KarenGlucose [Mass/Vol]NegativeNormalNEGATIVEMercy Health Willard HospitalComment on above:Performed By: #### KAITLIN ERUR #### [facility] [address] [place] [address] Aminata KarenKetones Ql (U)NegativeNormalNEGATIVEMercy Health Willard HospitalComment on above:Performed By: #### KAITLIN ERUR #### [facility] [address] [place] [address] Aminata KarenNitrite Ql (U)NegativeNormalNEGATIVEThe [facility] HospitalComment on above:Performed By: #### GIULIANO MADRIGALR #### [facility] [address] [id number] Aminata KarenpH (Bld)7.3Xdvkmt0-7Brg [facility] HospitalComment on above:Performed By: #### GIULIANO MADRIGALR #### [facility] [address] [address] Aminata KarenProtein (U) [Mass/Vol]NegativeNormalNEGATIVE/ TRACEThe [facility] HospitalComment on above:Performed By: #### GIULIANO MADRIGALR #### [facility] [address] [place] [address] Aminata KarenSPEC GRAVITY1.884Vxzymp2.005-<=1.025The [facility] [place] HospitalComment on above:Performed By: #### GIULIANO MADRIGALR #### [facility] [address] [place] [address] Aminata KarenUR MICRO INDINDICATEDNormalThe [facility] HospitalComment on above: Performed By: #### JOEY MADRIGAL #### [facility] [address] [place] [address] Aminata KarenUrobilinogen Qn (U)0.2 EU/dlNormal0.2 - 1.0The [facility] Comment on above:Performed By: #### KAITLIN ERUR #### [facility] [address] [address] Aminata KarenWBC (Bld) [#/Vol]SMALLAbnormalNEGATIVEThe [facility] [place] HospitalComment on above:Performed By: #### GIULIANO MADRIGALR #### [facility] [address] [place], [place] [address] Aminata KarenPREG HCG QUALon 52-45-3763MSNQFYRPI, QUALNegativeNormalNEGATIVEThe [facility] [place] HospitalComment on above:Performed By: #### CBC #### [facility] [address] [place] [address] Aminata KarenPROF 14(COMP METB)on 14-93-4992Uzlrugf [Mass/Vol]3.7 g/dLNormal 3.5-5.0The [facility] HospitalComment on above:Performed By: #### SALOMON QUIGLEY, CMP #### [facility] [address] [place] [address] Aminata KarenAlbumin/Globulin [Mass ratio]1.0 {ratio}NormalMercy Health [facility] Hospital Comment on above:Performed By: #### SALOMON QUIGLEY, CMP #### [facility] [address] [place] [address] Aminata KarenALP [Catalytic activity/Vol]88 U/FLgcesu16-122Cru [facility] Comment on above:Performed By: #### SALOMON QUIGLEY, CMP #### [facility] [address] [place] [address] Aminata KarenALT [Catalytic activity/Vol]13 U/LNormal9-52The [facility] Comment on above:Performed By: #### SALOMON QUIGLEY, CMP #### [facility] [address] [place] [address] Aminata KarenAnion gap [Moles/Vol]14.5 mmol/LNormalThe [facility] HospitalComment on above:Performed By: #### SALOMON QUIGLEY, CMP #### [facility] [address] [place] [address] Aminata KarenAST [Catalytic activity/Vol]16 U/VPumrmy18-41RkxMercy Health [facility] Hospital Comment on above:Performed By: #### SALOMON QUIGLEY, CMP #### [facility] [address] [place] [address] Aminata KarenBilirubin Ql (U)0.7 mg/dLNormal0.2-1.3The [facility] HospitalComment on above:Performed By: #### SALOMON QUIGLEY, CMP #### [facility] [address] [place] [address] Aminata KarenCalcium [Mass/Vol]8.8 mg/dLNormal8.4-10.2[facility] Comment on above:Performed By: #### HSTROPN, TSH, CMP #### [facility] [address] [address] Aminata KarenChloride [Moles/Vol]106 mmol/HQaggxr32-745Hag [facility] Comment on above:Performed By: #### HSTROPN, TSH, CMP #### [facility] [address] [address] Aminata KarenCO2 [Moles/Vol]24.3 mmol/ECjzlmx56.0-30.0The [facility] Comment on above:Performed By: #### HSTROPN, TSH, CMP #### [facility] [address] [address] Aminata KarenCreatinine [Mass/Vol]0.96 mg/dLNormal0.52-1.04The [facility] Comment on above:Performed By: #### HSTROPN, TSH, CMP #### [facility] [address] [address] Aminata KarenEGFR-AF CHILEAN>60Normal>=60The [facility] HospitalComment on above: Performed By: #### HSTROPN, TSH, CMP #### [facility] [address] [place] [address] Aminata KarenEGFR-NON AF CHILEAN>60Normal>=60The [facility] HospitalComment on above:Performed By: #### HSTROPN, TSH, CMP #### [facility] [address] [address] Aminata KarenGlobulin (S) [Mass/Vol]3.8 g/dLNormalThe [facility] HospitalComment on above:Performed By: #### HSTROPN, TSH, CMP #### [facility] [address] [address] Aminata KarenGlucose [Mass/Vol]141 mg/dLCritically njck48-378Vtk [facility] HospitalComment on above:Performed By: #### HSTROPN, TSH, CMP #### [facility] [address] [address] Aminata KarenPotassium [Moles/Vol]3.8 mmol/LNormal3.4-5.0The [facility] Comment on above:Performed By: #### SALOMON QUIGLEY, CMP #### [facility] [address] [place] [address] Aminata KarenProtein [Mass/Vol]7.5 g/dLNormal6.1-8.2The [facility] HospitalComment on above:Performed By: #### SALOMON QUIGLEY, CMP #### [facility] [address] [place] [address] Aminata KarenSodium [Moles/Vol]141 mmol/EChacil639-329Phf [facility] Comment on above:Performed By: #### SALOMON QUIGLEY, CMP #### [facility] [address] [place] [address] Aminata KarenUrea nitrogen [Mass/Vol]10.0 mg/dLNormal7.0-17.0The [facility] HospitalComment on above:Performed By: #### SALOMON QUIGLEY, CMP #### [facility] [address] [place] [address] Aminata KarenUrea nitrogen/Creatinine [Mass ratio]10.4 mg/mgNoProtestant HospitalComment on above:Performed By: #### SALOMON QUIGLEY, CMP #### [facility] [address] [place] [address] Aminata KarenPROTIMEon 75-79-8981NQJ Coag (PPP) [Relative time]1.00 {INR}Normal The [facility] HospitalComment on above:Performed By: #### PT, PTT #### [facility] [address] [place] [address] Aminata KarenPT Coag (PPP) [Time]SEE BELOWNoProtestant HospitalComhealthsource [place] on above:Result Comment: DESIRED INR: 2.0 - 3.0 CONDITIONS NOT LISTED BELOW 2.5 - 3.5 FOR PROSTHETIC HEART VALVE REPLACEMENT 2.5 - 3.5 RECURRENT THROMBOSIS Performed By: #### PT, PTT #### [facility] [address] [place] [address] Aminata KarenPT Coag (PPP) [Time]10.9 sNormal9.0-11.6The [facility] HospitalComment on above:Performed By: #### PT, PTT #### [facility] [address] [place] [address] Aminata GautamJoce 81-07-7448xBDT Coag (Bld) [Time]23.9 nSzxuyg76.3-36.2[facility] HospitalComment on above:Performed By: #### PT, PTT #### [facility] [address] [place] [address] Aminata BaileyenTROPONIN, HIGH SENSITIVITYon 11-67-9245GQOPNT<4.4Tgwdhg1.0-35.5The [facility] HospitalComhealthsource [place] on above:Result Comment: CUT-OFF POINTS HAVE BEEN ESTABLISHED BASED ON THE FOURTH UNIVERSAL DEFINITIONS OF MYOCARDIAL INFARCTION. THE UPPER REFERENCE LIMIT (URL) OF TROPONIN, DEFINED THE 99TH PERCENTILE OF cTnI DISTRIBUTION IN A REFERENCE POPULATION, HAS BEEN CONFIRMED THE DECISION THRESHOLD FOR VA DIAGNOSIS. 90TH PERCENTILE (Q=2661)= 35.6 - 109.2 PG/ML 99TH PERCENTILE = 51.4 PG/ML NOTE: HIGH-SENSITIVITY TROPONIN ASSAY IS NOT INTENDED TO BE USED IN ISOLATION BUT SHOULD BE INTERPRETED IN CONJUNCTION WITH OTHER DIAGNOSTIC AND CLINICAL INFORMATION.Performed By: #### HSTROPN, TSH, CMP #### [facility] [address] [place] [address] Aminata Martinez 11-12-1279EDI Qn2.034 uIU/mLNormal0.470-4.680The [facility] on above:Performed By: #### HSTROPN, TSH, CMP #### [facility] [address] [place], [place] [address]yohan BaileyBlue Ridge Regional Hospital QnSEE BELOWNormalThe [facility] HospitalComhealthsource [place] on above:Result Comment: <0.34 UIU/ml HYPERTHYROID 0.34-5.60 UIU/ml EUTHYROID >5.60 UIU/ml HYPOTHYROIDPerformed By: #### HSTROPN, TSH, CMP #### [facility] [address] [place] [address] Aminata GautamURINE MICROSCOPIC ONLYon [id number] LM.HPF (Urine sed) [#/Area]NONE SEENNormalNONE SEENMercy Health Willard HospitalComhealthsource [place] on above:Performed By: #### GIULIANO MADRIGALR #### [facility] [address] [place] [address] Aminata KarenCASTSEENAbnormalNONE SEENMercy Health Willard HospitalComhealthsource [place] on above: Performed By: #### GIULIANO MADRIGALR #### [facility] [address] [place] [address] Aminata KarenCrystals LM Nom (Urine sed)NONE SEENNormalNONE SEENMercy Health Willard HospitalComhealthsource [place] on above:Performed By: #### JOEY MADRIGAL #### [facility] [address] [place] [address] Aminata KarenCULTUREINDICATEDNormalThMemorial HospitalComhealthsource [place] on above: Performed By: #### GIULIANO MADRIGALR #### [facility] [address] [place] [address] Aminata KarenEpithelial cells LM.HPF (Urine sed) [#/Area]FEWAbnormalNONE SEEN /RAREThe [facility] HospitalComhealthsource [place] on above:Performed By: #### JOEY MADRIGAL #### [facility] [address] [place] [address] Aminata KarenHYALINE CASTRARENormalMercy Health Willard HospitalComhealthsource [place] on above: Performed By: #### GIULIANO MADRIGALR #### [facility] [address] [place] [address] Aminata KarenMUCOUSNONE SEENNormalNONE SEENMercy Health Willard HospitalComhealthsource [place] on above: Performed By: #### JOEY MADRIGAL #### [facility] [address] [place] [address] Aminata KarenRBC (U) [#/Vol]2-5Xnhrwiiy6-4Dms [facility] HospitalComhealthsource [place] on above: Performed By: #### GIULIANO MADRIGALR #### [facility] [address] [place] [address] Aminata KarenWBC (Bld) [#/Vol]5-10AbnormalNONE [facility] HospitalComment on above:Performed By: #### JOEY MADRIGAL #### [facility] [address] [place], [place] [address] Aminata LainezPERATIVE REPORTon [id number] REPORTName: LAURO PINTOMR: [id number]: MORIS MITTAL D.P.M.DATE OF SURGERY: 02/24/2017ANESTHESIA: General.1ST RADIOLOGY SERVICES MANAGER:PREOP DIAGNOSIS: Complication of external fixator, right.POSTOP DIAGNOSIS: Complication of external fixator, right.OPERATION: Removal of external fixator, right foot and leg.STAMP PRESS OPERATOR: Luis Fitzpatrick, PGY-2.HEMOSTASIS: Maintained on the field.ESTIMATED [...] completely removed. The leg was then dressed [facility] LAURO [id number] [address] [id number]: ANA M Knox REPORTwith sterile gauze, Rojas, Kerlix, and an William bandage. The patient toleratedthe procedure and anesthesia well in apparent satisfactory condition, wastransferred to the PACU. All vital signs were stable and vascular statusintact to her digits.COMPLICATIONS: None.PATHOLOGICAL SPECIMENS: External fixator, right leg. RADHA KNOX/[facility]/[id number]: 03/16/2017 10:56:16 E/S: Moris Mittal DPM03/25/17 1448Signature on File _[id number] [address] [id number]: ANA M Knox REPORTNormalSLafene Health Center Vital Signs Date TimeVital SignValuePerforming GkemnboxfByncfpns14-11-4123 13:10040Body rszomx940.4 cmKyler FRANCO Work Phone: [facility]10-02-2025 13:10-0400Body mass index (BMI) [Ratio]39.58 kg/y9QcotdnfKyler FRANCO Work Phone: [facility]10-02-2025 13:100400Body kjcodp061.08 kgMattrustam Carvajal PA Work Phone: [facility]10-02-2025 13:10040Diastolic blood vjienlsw16 mm[Hg]Kyler Carvajal PA Work Phone: [facility]10-02-2025 13:10-0400Heart rate 92 /minMatthew Justa PA Work Phone: [facility]10-02-2025 13:10-0400 Respiratory rate18 /minMatthew Justa PA Work Phone: [facility]10-02-2025 13:104899PbY4% (BldA) [Mass fraction]100 %Kyler Carvajal PA Work Phone: [facility]10-02-2025 13:10Systolic blood vottnbui087 mm[Hg]Kyler Carvajal PA Work Phone: [facility]09-23-2025 14:22-0400Body mass index (BMI) [Ratio]40.24 kg/x3Lhbbj Lauren DO Work Phone: [phone]-[facility], [facility]–1983[facility] HospitalXtlaiqgzuh40-47-2329 14:22-0400Body hsrkaa282.35 kgCorey Lauren DO Work Phone: [phone]-[facility], 1928–[address] HospitalAimauaicbm48-80-8556 14:22-040Diastolic blood ecaqbbdl16 mm[Hg]Jorge Lauren DO Work Phone: [phone] [place], [place] [address]Lslkpjszcb85-11-0897 14:22-040Systolic blood dbqefbyb279 mm[Hg]Jorge Lauren DO Work Phone: [phone] [place], [place] [address]Wzoocsgwea46-38-7541 14:11-0400Body mass index (BMI) [Ratio]39.86 kg/v2Wlqmp Lauren DO Work Phone: [phone]-[facility], 1928–[address] HospitalZbbleamqyr04-89-8507 14:11-0400Body .04 kgCorey Lauren DO Work Phone: [phone] [place] [address]-13-2025 14:11-0400Diastolic blood vrpeonow36 mm[Hg]Jorge Lauren DO Work Phone: [facility] HospitalLdgqcpeotq65-20-9766 14:11-0400Systolic blood mmcozoeq338 mm[Hg]Jorge Lauren DO Work Phone: [facility] HospitalNjwxlnizfy96-48-1096 13:08-0400Body falvjy595.4 cmMatthew Nienberg PA Work Phone: [facility]06-26-2025 13:08-0400Body mass index (BMI) [Ratio]39.71 kg/y7Xvkolys Nienberg PA Work Phone: [facility]06-26-2025 13:08-0400Body uwbxjp993.53 kgMatthew Nienberg PA Work Phone: [facility]06-26-2025 13:08-0400Diastolic blood lkevcbnb80 mm[Hg]Kyler Carvajal PA Work Phone: [facility]06-26-2025 13:08-0400Heart rate 70 /minMatthew Nienberg PA Work Phone: [facility]06-26-2025 13:08-0400 Respiratory rate16 /minMatthew Nienberg PA Work Phone: [facility]06-26-2025 13:08-2385QmV9% (BldA) [Mass fraction]96 %Kyler Carvajal PA Work Phone: [facility]06-26-2025 13:08-0400Systolic blood zepmmbxb736 mm[Hg]Kyler Carvajal PA Work Phone: [facility]06-25-2025 13:15-0400Body wacyse879.4 Matthew Stephens MD Work Phone: [facility] HospitalGyjrkpfkka97-37-6098 13:15-0400Body mass index (BMI) [Ratio]40.11 kg/h0QpmdeThi Stephens MD Work Phone: [facility] HospitalHstxfohzkh88-36-6510 13:15-0400Body kfjwdu791.89 kgThi Stephens MD Work Phone: [phone] [place], [place] [address]Fcluchqszj14-12-7028 13:15-0400Heart rate73 /min Thi Stephens MD Work Phone: [phone] [place], [place] [address]Tjzajzonan60-29-2231 13:15-0400Respiratory rate16 /minThi Stephens MD Work Phone: [phone]06-25-2025 13:15-1774QwA4% (BldA) [Mass fraction]99 %Thi Stephens MD Work Phone: [phone])830-[address] [place], [place] [address]Asjkqyinhs83-71-6477 09:00-0400Body hypicw312.4 cmMatthew Nienberg PA Work Phone: [facility]03-27-2025 09:00-0400Body mass index (BMI) [Ratio]39.98 kg/e7Yrnoxqa Nienberg PA Work Phone: [facility]03-27-2025 09:00-0400Body wvlcaa738.44 kgMatthew Nienberg PA Work Phone: [facility]03-27-2025 09:00-0400Diastolic blood eoferolv80 mm[Hg]Kyler Carvajal PA Work Phone: [facility]03-27-2025 09:00-0400Heart rate 82 /minMatthew Nienberg PA Work Phone: [facility]03-27-2025 09:00-0400 Respiratory rate18 /minMatthew Nienberg PA Work Phone: [facility]03-27-2025 09:00-7457YaN8% (BldA) [Mass fraction]99 %Kyler Carvajal PA Work Phone: [facility]03-27-2025 09:00-0400Systolic blood tpwohapy906 mm[Hg]Kyler Carvajal PA Work Phone: [facility]02-26-2025 13:03-0500Body mass index (BMI) [Ratio]39.46 kg/a5Nvxhx Lauren DO Work Phone: [facility] HospitalAdfpgxxnxp92-96-5072 13:03-0500Body xtthuw610.68 kgCorey Lauren DO Work Phone: [facility] HospitalCagbnwckic74-96-5197 13:03-0500Diastolic blood mm[Hg]Jorge Lauren DO Work Phone: [facility] HospitalHxqfwytiwc10-20-6105 13:03-0500Systolic blood ukwtexxc614 mm[Hg]Jorge Lauren DO Work Phone: [facility] HospitalHvrpznauil80-90-8452 13:57-0500Body .9 cmMatthew Nienberg PA Work Phone: [facility]02-20-2025 13:57-0500Body mass index (BMI) [Ratio]40.96 kg/b9Ehzdmkm Nienberg PA Work Phone: [facility]02-20-2025 13:57-0500Body vvsedc084.99 kgMatthew Nienberg PA Work Phone: [facility]02-20-2025 13:57-0500Diastolic blood wpullvdk62 mm[Hg]Kyler Carvajal PA Work Phone: [facility]02-20-2025 13:57-0500Heart rate 71 /minMatthew Nienberg PA Work Phone: [facility]02-20-2025 13:57-0500 Respiratory rate18 /minMatthew Nienberg PA Work Phone: [facility]02-20-2025 13:57-3290XqP7% (BldA) [Mass fraction]100 %Kyler Carvajal PA Work Phone: [facility]02-20-2025 13:57-0500Systolic blood akbosgiq726 mm[Hg]Kyler Carvajal PA Work Phone: [facility]01-14-2025 13:21-0500Body qcfuxu128.4 cmCorey Lauren DO Work Phone: [facility] HospitalWzggmhhmac90-61-9767 13:21-0500Body mass index (BMI) [Ratio]38.37 kg/o3Tzvst Lauren DO Work Phone: [phone] [place], [place] [address]Bowfovumur43-26-1988 13:21-0500Body .91 kgCorey Lauren DO Work Phone: [facility] HospitalEywjqlvkto15-37-6346 13:21-0500Diastolic blood qgqwyvej92 mm[Hg]Jorge Lauren DO Work Phone: [facility] HospitalHimbesncrv03-22-3403 13:21-0500Systolic blood gwbtibez013 mm[Hg]Jorge Lauren DO Work Phone: [phone] [place], [place] [address]Ugcewybrce62-25-0602 14:37-0500Body mviyjy678.4 cmMatthew Nienberg PA Work Phone: [facility]01-02-2025 14:37-0500Body mass index (BMI) [Ratio]38.39 kg/x9Qlkcviu Nienberg PA Work Phone: [facility]01-02-2025 14:37-0500Body kgMatthew Nienberg PA Work Phone: [facility]01-02-2025 14:37-0500Diastolic blood mm[Hg]Kyler Carvajal PA Work Phone: [facility]01-02-2025 14:37-0500Heart rate 80 /minMatthew Nienberg PA Work Phone: [facility]01-02-2025 14:37-0500 Respiratory rate16 /minMatthew Nienberg PA Work Phone: [phone] [place], [place] [address]001-02-2025 14:37-9400WlK5% (BldA) [Mass fraction]100 %Kyler Hongtima PA Work Phone: [facility]01-02-2025 14:37-0500Systolic blood ardgvisl478 mm[Hg]Kyler Hongtima PA Work Phone: [facility] [facility] Vvfiyb43-49-0494 11:25-0400Body .4 cmMatthew Nienberg PA Work Phone: [facility]09-12-2024 11:25-0400Body mass index (BMI) [Ratio]38.26 kg/x7Kivlvfi Nienberg PA Work Phone: [facility]09-12-2024 11:25-0400Body uogpzd639.54 kgMatthew Nienberg PA Work Phone: [facility] Fwipot03-63-8693 11:25-0400Diastolic blood yimhfzxz47 mm[Hg]Kyler Hongtima PA Work Phone: [facility] Hcspwt63-32-6876 11:25-0400Heart rate 71 /minMatthew Nienberg PA Work Phone: [facility] Lkpomc95-71-1730 11:25-0400 Respiratory rate20 /minMatthew Nienberg PA Work Phone: [facility] Awsqpa78-60-4864 11:25-0400Systolic blood aulqczbz476 mm[Hg]Kyler oHngtima PA Work Phone: [facility] Taeciq36-02-0137 16:25-0400Body .42 cmCharles P House Work Phone: mg379-3214QO-Xfulsuohjahngt-[employer] Work Phone: 1(157) 274-743704-15-2022 16:25-0400Body mass index (BMI) [Ratio] 45.33 kg/d2Hgrbegp P House Work Phone: mg282-9820VD-Mbirxfodqxuzcp-[place] Work Phone: 1(174) 476-327204-15-2022 16:25-0400Body surface area Derived from formula2.71 v3Pwufkdf P House Work Phone: [phone]-Eooacifvtfthqe-[place] Work Phone: 1(185) 243-716904-15-2022 16:25-0400Body pnxurbtupwf72.8 [degF] Toney P [place] Work Phone: [phone]-Kyxqrjfukqnzzt-[place] Work Phone: 1(274) 256-272104-15-2022 16:25-0400Body rynhvw419.86 kgCharles P [place] Work Phone: [phone]-Pzgxnttqilaaej-[place] Work Phone: 1(628) 755-498202-21-2022 09:32-0500Body lbsgmy529.42 cmNo PCP None HX-Urvusmffaaqpsi-Nkavkeij [address] Work Phone: 1(892) 697-988202-21-2022 09:32-0500Body mass index (BMI) [Ratio] 45.25 kg/m2No PCP GqhlIM-Pxudjcteiymmge-Bbkrkhht [address] Work Phone: 1(320) 794-815702-21-2022 09:32-0500Body surface area Derived from formula2.71 m2No PCP JsuyIM-Dxddfxuegaxept-Npsxlvap [address] Work Phone: 1(734) 134-289902-21-2022 09:32-0500Body akxwvdkjvhe32.9 [degF]No PCP JawxPY-Daicpjmjayyuae-Onenvmuo [address] Work Phone: 1(237) 169-282502-21-2022 09:32-0500Body icyfmj922.58 kgNo PCP None CA-Owwuhvnbeafefu-Isvnbhoj [address] Work Phone: 1(312) 827-465802-21-2022 09:32-0500Diastolic blood xihnnngm87 mm[Hg] No PCP VmtdUD-Hpnctzpshngzrt-Puirmyhz [facility] Work Phone: 1(302) 141-159602-21-2022 09:32-0500Systolic blood vuvbitgh521 mm[Hg] No PCP RskzSJ-Perhykhfkaojon-Bgutgdzz [address] Work Phone: 1(443) 769-685402-21-2022 09:32-30786 1No PCP None DW-Fmogxxtapzewlb-Hsfnbuso [facility] [address] Work Phone: Comment on above:PyvhRftye94-98-2123 12:45-0500Body .42 cmPamelstephanie Brandon Other [employer] Other 12-11-2021 12:45-0500Body mass index (BMI) [Ratio] 41.55 kg/n4Ikevvr Roma Other [employer] Other 12-11-2021 12:45-0500Body oyfkrisfdai84.6 [degF]Melody Roma Other [employer] Other 12-11-2021 12:45-0500Body .88 kgPapanfilo Brandon Other [employer] Other 12-11-2021 12:45-0500Respiratory rate18 /minJoanpanfilo Brandon Other [employer] Other 12-11-2021 12:45-5644GxQ0% (BldA) [Mass fraction]98 % Melody Casonmond Other [employer] Other 11-15-2021 14:48-0500Body uvgrje859.42 cmNo PCP None XH-Bijngmangiwzki-Crhdqcjz Work Phone: 1(311) 476-588811-15-2021 14:48-0500Body mass index (BMI) [Ratio] 44.59 kg/m2No PCP JkavSS-Vzvtlnlbabmonn-Jgqpsdwn Work Phone: 1(294) 949-259111-15-2021 14:48-0500Body surface area Derived from formula2.69 m2No PCP TtndRZ-Rrzcwbcwcdcdxs-Ekgnvojm Work Phone: 1(390) 886-816611-15-2021 14:48-0500Body uyaqwuvxqft15.9 [degF]No PCP UsyfGR-Cocemgumeyojwf-Wargzcaj Work Phone: 1(921) 226-484511-15-2021 14:48-0500Body vaysth168.32 kgNo PCP None VX-Pszvtwwrvtbymx-Yncfpvsg Work Phone: 1(521) 120-368511-15-2021 14:48-0500Diastolic blood txvntqwy72 mm[Hg] No PCP EpllBI-Jzdhczycdobbov-Exgcoiqb Work Phone: 1(297) 174-707911-15-2021 14:48-0500Systolic blood kmiwijfz143 mm[Hg] No PCP HubpLX-Calhsnhhjyhrxx-Difaozkq Work Phone: 1(307) 336-870111-15-2021 14:48-01611 1No PCP None VU-Fbegvoekadyrdd-Vixqwmzi Work Phone: comment on above:LusyEylzh74-91-0472 14:27-0400Body hdovcq350.42 cmNo PCP FxcsVY-Omqibaqbvggrdm-Yfxistsh Work Phone: 1(314) 611-471108-02-2021 14:27-0400Body mass index (BMI) [Ratio] 44.33 kg/m2No PCP LznfXW-Kayehrarsqoarl-Bknkcxrz Work Phone: 1(138) 863-515508-02-2021 14:27-0400Body surface area Derived from formula2.68 m2No PCP VqlePG-Xkzdpukndimalc-Tszhkrpy Work Phone: 1(840) 310-972308-02-2021 14:27-0400Body znbtxbferuv92.2 [degF]No PCP OctmKP-Ypnvcxoitszmim-Midipowp Work Phone: 1(673) 343-318308-02-2021 14:27-0400Body aqaknj411.41 kgNo PCP None AD-Xzhimascvbpofk-Apsqaxvk Work Phone: 1(987) 732-765808-02-2021 14:27-399Diastolic blood pzifnehm73 mm[Hg] No PCP CntwLO-Pzqcvwypuewkgr-Ljbihiig Work Phone: 1(722) 455-230408-02-2021 14:-399Systolic blood zjtnuqak169 mm[Hg] No PCP AzzmUF-Pwvxhycvilcicf-Srmcvveg Work Phone: [phone] 14:27- 1No PCP None DW-Olrngzdyskapzg-Faekqalj Work Phone: comment on above:[employer] Encounters Encounter DateEncounter [facility] ProviderFacilityStart: 06-27-2025 End: 66-86-5717piltslovabUrwvq Lauren-LAB Path Spec [place] HospStart: 06-27-2025 End: 01-21-0342Nzdprvsx ReferredCorey Lauren-LAB Path Spec [place] HospStart: 06-26-2025 End: 34-67-8352migqlhenuvFUHEYGZ P [facility] HospitalStart: 06-19-2025 End: 88-80-4994cxdnwzatjlKH CHARLES P HOUSEFacility:[facility] ClinicStart: 06-14-2025 End: 06-52-9179rqjhuqupwcWHUJSIX P HOUSEFacility:[facility] ClinicStart: 06-14-2025 End: 36-09-9168Kumrcpoza Result EncounterCorey Lauren DO Work Phone: [facility] External Department UnsolicitedStart: 06-14-2025 End: 17-90-8700Ppjgcjsfu Result EncounterCorey Lauren DO Work Phone: [facility] External Department UnsolicitedStart: 06-07-2025 End: 13-20-4139Xrlciv outpatient visit 25 minutesMatressa FRANCO Work Phone: [facility] ClinicComment on above:Lumbosacral spondylosis without myelopathy (Primary Dx) Start: 06-07-2025 End: 94-18-3251guysjewbjmKJRQGQA S [facility] HospitalStart: 38-47-8048hnmwfvccmbRA CHARLES P HOUSEFacility:[facility] HospitalStart: 05-31-2025 End: 50-08-2131Vjotcwcnv Result EncounterCorey Lauren DO Work Phone: [facility] External Department UnsolicitedStart: 05-31-2025 End: 20-83-4751Cxxckbdag Result EncounterCorey Lauren DO Work Phone: [facility] External Department UnsolicitedStart: 05-30-2025 End: 93-52-7790gqgxetzqrnLGBTQBM [facility] HospitalStart: 05-29-2025 End: 09-14-5573Cufisixhu Result EncounterCorey Lauren DO Work Phone: [facility] External Department UnsolicitedStart: 05-29-2025 End: 05-91-7628Yxswqnoau Result EncounterCorey Lauren DO Work Phone: [facility] External Department UnsolicitedStart: 05-29-2025 End: 55-42-5006Zdbuygd encounter procedureCorey Lauren DO Work Phone: [facility] OBGYNComment on above:Pre-op examination; Menorrhagia with regular cycle; Pelvic pain; Dysmenorrhea; Dyspareunia in female; Well woman exam with routine gynecological exam; Breast cancer screening by mammogramStart: 05-29-2025 End: 67-95-3582Xwydrpltfhoxy examination doneCorey Lauren DO Work Phone: noms HealthcareStart: 05-29-2025 End: 06-59-5445aljahnskwiZZBTO FAZIONot AvailableStart: 83-19-8521Tnmzzdtvt for general adult medical examination without abnormal findingsDO TONEY MONTOYA [facility] HospitalStart: 05-15-2025 End: 39-90-0718mqelwtajtxKT CHARLES P HOUSEFacility:[facility] ClinicStart: 04-18-2025 End: 34-07-8119Qiwwpn flowsheetCorey Lauren DO Work Phone: [facility] [place] [facility]BGYNStart: 04-18-2025 End: 47-91-6376Lwckjv flowsheetCorey Lauren DO Work Phone: [facility] [place] [facility]BGYNStart: 04-18-2025 End: 01-40-3701Pdlezv outpatient visit 15 minutesCorey Lauren DO Work Phone: [facility] OBGYNComment on above:Dysfunctional uterine bleedingStart: 04-18-2025 End: 73-10-2233njwsjphmpoAWKFZ [employer]ot AvailableStart: 04-12-2025 End: 53-99-6223rcoddzekmlMFRAEOP S [facility] HospitalStart: 03-30-2025 End: 63-54-2829bprnyhjaofPXZCRPV E [facility] CITYCESILIALutheran Hospital HospitalStart: 28-00-8090fmcjtzouwpQM CHARLES P HOUSEFacility:[facility] ClinicStart: 03-01-2025 End: 91-60-9374Chmjyg outpatient visit 15 minutesNyc Health + Hospitalsmary FRANCO Work Phone: [facility] ClinicComment on above:Disorder of sacrum (Primary Dx)Start: 03-01-2025 End: 93-19-3662ktolkzeolwQRETDPN [facility] HospitalStart: 02-28-2025 End: 37-75-7243Qheaex Zay Stephens MD Work Phone: noms ENDOCRINOLOGYStart: 02-28-2025 End: 79-79-0276Ksbbojcharli Stephens MD Work Phone: [facility]oms ENDOCRINOLOGYStart: 02-28-2025 End: 88-20-6211Vcjyxb outpatient visit 25 minutesThi Stephens MD Work Phone: noms ENDOCRINOLOGYComment on above:Postoperative hypothyroidism (Primary Dx); Papillary thyroid carcinoma (HCC); Vitamin D deficiency; Encounter for dietary consultation; Class 3 severe obesity due to excess calories without serious comorbidity with body mass index (BMI) of 40.0 to 44.9 in adult ([facility]-HCC)Start: 02-28-2025 End: 58-97-2529rcpqqqzspnPEYMJ F SABBAGHAbdifatah AvailableStart: 07-83-6214lxuflcwchi DO TONEY Saritha HOUSEFacility:[facility] ClinicStart: 11-30-2024 End: 69-40-8739Xhobva outpatient visit 15 Shannon FRANCO Work Phone: [facility] ClinicComment on above:Lumbar spondylosis (Primary Dx)Start: 11-30-2024 End: 08-89-9520zbhiauqehoIEBJVWO S NIENBERGLutheran Hospital HospitalStart: 11-17-2024 End: 95-45-9646mymzcjvbysAISPJWF E HOGANLutheran Hospital HospitalStart: 11-10-2024 End: 45-26-0418srgrutncdkEnvve Schermerhorn MD Work Phone: [facility] Work Phone: Start: 11-10-2024 End: 61-87-0335Razzbfmr ReferredSofiya Cole MD Work Phone: [facility]-LAB Path Spec [facility] HospStart: 11-03-2024 End: 59-97-6798Nxnynqjtd Result EncounterCorey Lauren DO Work Phone: [facility] External Department UnsolicitedStart: 11-03-2024 End: 74-12-1368Ljeruhbdt Result EncounterCorey Lauren DO Work Phone: [facility] External Department UnsolicitedStart: 11-01-2024 End: 67-19-6697Jzuujyr encounter procedureCorey Lauren DO Work Phone: [facility] OBComment on above:Dysfunctional uterine bleeding; Pre-operative examStart: 11-01-2024 End: 12-89-6431Aufjirbzgrrlu examination doneCorey Lauren DO Work Phone: [facility] HealthcareStart: 11-01-2024 End: 43-60-7625hbpbwasrmvRlwovLaurie Cole MD Work Phone: [facility] Work Phone: Start: 11-01-2024 End: 49-43-3437Lqqzayfy ReferredSofiya Cole MD Work Phone: [facility]-LAB Path Spec [place] HospStart: 10-26-2024 End: 40-64-3411Kocbwv outpatient visit 25 minutesKyler FRANCO Work Phone: [facility] ClinicComment on above:Disorder of sacrum (Primary Dx)Start: 10-26-2024 End: 84-16-6520jltfnbhngqODCOYBF S NIENBERGLutheran Hospital HospitalStart: 09-19-2024 End: 30-99-5009Jcydef flowsheetCorey Lauren DO Work Phone: noms BCP OBStart: 09-19-2024 End: 42-29-0422Fxsbys flowsheetCorey Lauren DO Work Phone: [facility] BCP OBStart: 09-19-2024 End: 11-50-2154Xjjpjp outpatient new 20 minutesCorey Lauren DO Work Phone: [facility] BCP OBComment on above:Dysfunctional uterine bleeding; Iron deficiency anemia, unspecified iron deficiency anemia typeStart: 09-19-2024 End: 56-24-3835dwoeazpltoDLPIG FAZIONot AvailableStart: 09-11-2024 End: 01-08-1990Xhfluk OnlyKylre FRANCO Work Phone: [phone]-SGFM ATLASComment on above:Postprocedural hypothyroidism; Malignant neoplasm of thyroid gland (CMS-HCC)Start: 09-11-2024 End: 41-36-9455nadsfqbivnQDHOLTracey Sidhu AvailableStart: 09-11-2024 End: 50-80-5057Sauelb outpatient visit 25 Christy Stephens MD Work Phone: NO[facility]E ENDOCRINOLOGYComment on above:Postoperative hypothyroidism (CMS/HCC) (Primary Dx); Papillary thyroid carcinoma (CMS/HCC); Vitamin D deficiency; Encounter for dietary consultation; Class 3 severe obesity due to excess calories without serious comorbidity with body mass index (BMI) of 40.0 to 44.9 in adult (CMS/HCC)Start: 09-07-2024 End: 55-96-7564Ldrtng outpatient visit 15 Shannon FRANCO Work Phone: [facility] ClinicComment on above:Lumbosacral spondylosis without myelopathy (Primary Dx) Start: 09-07-2024 End: 10-24-0157noirfmikyfWNZRQWN S [facility]BERGLutheran Hospital HospitalStart: 08-14-2024 End: 98-95-5286wjxpzhsalwMVXNJLZ P HOUSELutheran Hospital HospitalStart: 08-11-2024 End: 12-40-1799rjcibouxccLXSCSMJ E HOGANLutheran Hospital HospitalStart: 08-09-2024 End: 95-39-8123Swxcptkwn encounterIris [facility] ClinicStart: 08-07-2024 End: 95-04-0510xqpntajpfuQK CHARLES P HOUSEFacility:[facility] ClinicStart: 08-01-2024 End: 98-98-3967mcdrqdctybJCJJRTN P HOUSEProMarymount [facility] HospitalStart: 07-25-2024 End: 98-03-6295Wbgatpka Hunter Cole MD Work Phone: [facility]-LAB Path Spec [place] HospStart: 07-25-2024 End: 96-07-7655gnrxfdngugMfilsCami Cole MD Work Phone: [facility] Work Phone: Start: 07-25-2024 End: 37-14-5936fxafqrivwdUrilkvv FullerFacility:[facility] HospitalStart: 07-25-2024 End: 41-74-4013kzdpbmacyyRAKNNDX P HOUSEFacility:[facility]ICStart: 05-29-2024 End: 68-29-3676Kvdasdmak encounterKyler FRANCO Work Phone: [facility] ClinicStart: 05-18-2024 End: 43-32-2976Iwxzzq outpatient visit 25 minutesMatressa FRANCO Work Phone: [facility] ClinicComment on above:Disorder of sacrum (Primary Dx)Start: 09-58-7724Zfupnc follow up visit related to original pxCharles P House Work Phone: [phone]-Emjghkasvxdgjc-[employer] Work Phone: Start: 15-53-4182GTSFDXihtskk P House Work Phone: [phone]-Pmibgnruxdbuwv-[employer] Work Phone: Start: 96-87-3401EJMFMXzszfrr P House Work Phone: [phone]-Pbiicunflokjop-[employer] Work Phone: Start: 48-31-3588Ythtpd outpatient visit 15 minutesNo PCP AqxvJY-Opiwzpltmtxmqw-Dbnfrgff [address] Work Phone: Start: 08-16-2021 End: 79-40-7702uhqwuodtorMzkxuc Dymond Other [facility] [employer] Other Start: 94-32-2641Xyqbli outpatient visit 15 minutes Melody StoryG [facility] ClydeStart: 92-68-5758Caodzb follow up visit related to original pxNo PCP ClvyCC-Wenwrjaewvuiui-Iaasrnmt Work Phone: Start: 40-57-1007PUOHFZJ, Provider: Edy Dominguez, Status: Pen, Time: 11:00 AMNo PCP YaxgYL-Gmxbsczrbpfhhu-Zfhdulmg Work Phone: Start: 45-16-9893Ruttn UpdateNo PCP None UT-Xnaqyxooxevsgy-Fmaitsrr Work Phone: Start: 52-45-0520Gkdlmb outpatient visit 25 minutesNo PCP WbylIF-Wbygtsgbkgfeur-Rlmeaydg Work Phone: Start: 96-33-6320Qvxc/qhp telephone evaluation 5-10 minNo PCP CrpjHN-Usbwdkvkyouvbs-Zkqtjneh Work Phone: Start: 03-09-8771Gkcsp UpdateNo PCP None YE-Pskooqnsmiyeng-Gcnhqrkg Work Phone: Start: 14-84-8917Dlzktm outpatient new 45 minutesNo PCP LxikCW-Ltlyarsufftekx-Snnhzejf Work Phone: Start: 08-28-2020 End: 63-08-4102Hgstssr encounter procedureMELISSA MARKERFacility:H1 Procedures DateProcedureProcedure DetailPerforming ClinicianStart: 44-43-8243ING 12-LEAD Jorge Lauren DO Work Phone: Start: 24-93-4485HF PELVIS W/ TRANSVAGINALCorey Lauren DO Work Phone: Start: 95-06-4433KSG,APTIMA HPV,AGE GDLNCorey Lauren DO Work Phone: Start: 09-40-0455EBB 12-LEADCorey Lauren DO Work Phone: Start: 01-02-0644Jumuv test visual color cmprsn methsCorey Lauren DO Work Phone: Plan of Treatment DateCare ActivityDetailAuthorStart: 95-45-7951Xpaql BMI ScreeningAdult BMI ScreeningProMedica Health SystemStart: 24-67-2230Dcnbvin ScreeningTobacco ScreeningProMedica Health SystemStart: 31-66-4292Umbmi BMI ScreeningAdult BMI ScreeningProMedica Health SystemStart: 07-09-0158Unxqwnj ScreeningTobacco ScreeningProMedica Health SystemStart: 94-55-2612Qxhnt BMI ScreeningAdult BMI ScreeningProMedica Health SystemStart: 50-40-8244Lzjfkmm ScreeningTobacco ScreeningProMedica Health SystemStart: 68-04-6618Nsxaj BMI ScreeningAdult BMI ScreeningProMedica Health SystemStart: 95-30-7107Wpdggsh ScreeningTobacco ScreeningProMedica Health SystemStart: 98-10-2592Yxkir BMI ScreeningAdult BMI ScreeningProRegency Hospital Companyca [facility] SystemStart: 90-87-7916Qmmqbdg ScreeningTobacco ScreeningKettering Health – Soin Medical Centerca [facility] SystemStart: 08-22-2025 End: 69-97-7985Lccjexo encounter procedureNOKANSAS [facility] ENDOCRINOLOGYStart: 08-11-2025 Tobacco ScreeningTobacco ScreeningKettering Health – Soin Medical Centerca Health SystemStart: 08-08-2025 End: 73-02-8259Eactftw encounter awgbuapbs86/03/2025 2:30 PM EST Office Visit MAZIN MENDOZA [address] [place] [address] Lindsey Collier PA [address] [place] [address] MAZIN CONTRERAStart: 07-26-2025 End: 71-83-7517Migazxd encounter qjatsvmas76/20/2025 1:00 PM EST Office Visit [facility] [address] [place] [phone] Kyler Carvajal PA [address] [place], [place] [phone] [facility] Pain Management ClinicStart: 07-04-2025 End: 26-07-1830Mdvizqc encounter gfdjlfosn73/29/2025 2:30 PM EDT Office Visit MAZIN MENDOZA [address] [place] [phone] Lindsey Collier PA [address] [place], [place] [id number] NOMHaim Cristina OBGYNStart: 05-29-2025 End: 87-74-1007DC Breast - bilateral ScreeningBilateral screening mammogram Imaging Routine Breast cancer screening by mammogram Expected: 05/29/2025 (Approximate), Expires: 07/29/2026[facility] Work Phone: comment on above:Expected: 05/29/2025 (Approximate), Expires: 07/29/2026Start: 05-29-2025 End: 04-98-1596Iwcjtjd encounter nupmdrnkf83/23/2025 1:40 PM EDT Procedure Visit MAZIN MENDOZA [address] [place] [phone] Jorge Aguilar DO [address] [place] [address] MAZIN Cristina OBGYNStart: 05-23-2025 End: 02-75-0817Vxxtvfrkikhh / ancillary services fzrsuzqcfc52/17/2025 1:00 PM EDT Ancillary Procedure MAZIN MENDOZA [address] [place] [phone] [facility] OBGYNStart: 51-63-3476Kmfck BMI ScreeningAdult BMI ScreeningProMedica Health SystemStart: 92-03-9529Xqwgekk ScreeningTobacco ScreeningProMedica Health SystemStart: 70-19-0279Zpilkvjap vaccinationInfluenza VaccineProMedica Health SystemStart: 04-18-2025 End: 67-75-1141MS PelvisUS Pelvis w/ TV Imaging Routine Dysfunctional uterine bleeding Expected: 04/18/2025, Expires: [facility]2025[facility] Work Phone: comment on above:Expected: 04/18/2025, Expires: 10/19/2025Start: 04-12-2025 End: 75-27-6013Imqekmj encounter bxasbcrxu70/07/2025 1:30 PM EDT Office Visit [facility] [address] [facility] [place] [address] Kyler Carvajal PA [address] [place], [place] [phone] [facility] ClinicStart: 03-30-2025 End: 99-07-4941Cndnltxmr to same day surgery ikiplz2903/30/2025 11:58 AM EDT - 03/30/2025 12:05 PM EDT Surgery [facility] [address] [place] [phone] Zeeshan Perry MD [address] [place], [place] [id number] INJECTION BLOCK NERVE SACROILIAC [34422 (CPT )][facility] Pain ProceduresComment on above:INJECTION BLOCK NERVE SACROILIAC [44710 (CPT )]Start: 03-30-2025 End: 43-67-8709Bdznod si joint arthrgrphy&/anes/steroid w/imaINJECTION BLOCK NERVE SACROILIAC Disorder of sacrum 03/30/2025 11:58 AM EDTFREMONT PAINStart: 77-78-0544Yvehuxmelm hospital visit by /25/2025 11:58 AM EDT Hospital Encounter [facility] [address] [place] [address] Zeeshan Perry MD [address] [place], [place] [phone] [facility]: [facility]28[facility]2025 End: 05-75-8050BfijkslfcvjloPthnwozgwokub Lab Routine Postoperative hypothyroidism Papillary thyroid carcinoma (HCC) Expected: 02/28/2025 (Approximate), Expires: 02/28/2026[facility] Work Phone: Comment on above:Expected: 02/28/2025 (Approximate), Expires: 02/28/2026Start: 02-28-2025 End: 20-59-1287Pngcmwwmvsmck AntibodyThyroglobulin Antibody Lab Routine Postoperative hypothyroidism Papillary thyroid carcinoma (HCC) Expected: 02/28/2025 (Approximate), Expires: 02/28/2026[facility] HealthcareComment on above: Expected: 02/28/2025 (Approximate), Expires: 02/28/2026Start: 02-28-2025 End: 50-96-0465Iseyfrudbzm [Units/volume] in Serum or PlasmaTSH Lab Routine Postoperative hypothyroidism Expected: 02/28/2025 (Approximate), Expires: 02/28/2026[facility] HealthcareComment on above:Expected: 02/28/2025 (Approximate), Expires: 02/28/2026Start: 02-28-2025 End: 29-93-0845Fyqgezodz (T4) free [Mass/volume] in Serum or PlasmaT4, free Lab Routine Postoperative hypothyroidism Expected: 02/28/2025 (Approximate), Expires: 02/28/2026[facility] HealthcareComment on above:Expected: 02/28/2025 (Approximate), Expires: 02/28/2026Start: 02-28-2025 End: 70-22-0602Zfsuscunpnpuzash (T3) Free [Mass/volume] in Serum or PlasmaT3, free Lab Routine Postoperative hypothyroidism Expected: 02/28/2025 (Approximate), Expires: 02/28/2026[facility] HealthcareComment on above:Expected: 02/28/2025 (Approximate), Expires: 02/28/2026Start: 02-28-2025 End: 73-88-4493Hixvqki encounter lkozvmarg92/25/2025 1:20 PM EDT Office Visit [facility] [address] [place] [phone] Thi Stephens MD [address] [place] [address] ArrivedNOMS ENDOCRINOLOGYComment on above:Arrived Start: 01-30-2025 End: 31-11-5284Oblghwf encounter azbscckdd44/27/2025 2:30 PM EDT Office Visit [facility] [address] [place] [id number] Kyelr Carvajal PA [address] [place] [address] [facility]: 12-07-2024 End: 01-86-7971Yfllocp encounter jrugrdtzp10/03/2025 1:30 PM EDT Office Visit [facility] [address] [place] [address] Kyler Carvajal PA [address] [place] [address] [facility] ClinicStart: 11-17-2024 End: 56-20-2724Lkhebjwsd to same day surgery iobhgb7311/17/2024 10:26 AM EDT - 11/17/2024 10:33 AM EDT Surgery [facility] [address] [place] [address] Zeeshan Perry MD [address] [place] [address] INJECTION BLOCK SACROILIAC JOINT [46204 (CPT )][facility] - Pain ProceduresComment on above:INJECTION BLOCK SACROILIAC JOINT [10800 ([facility] )]Start: 11-17-2024 End: 11-81-6626Jhxkge si joint arthrgrphy&/anes/steroid w/imaINJECTION BLOCK SACROILIAC JOINT Disorder of sacrum 11/17/2024 10:26 AM EDTFREMONT PAINStart: 05-07-2695Piqrcvkfgb hospital visit by rxbmvgqea87/14/2025 10:26 AM EDT Hospital Encounter [facility] [address] [place] [address] Zeeshan Perry MD [address], [place] [id number] [facility] - Pain ProceduresStart: 11-09-2024 End: 42-54-8065Jtieevc encounter sjyorimoq79/06/2025 2:45 PM EST Office Visit [facility] [address] [place] [address] Kyler Carvajal PA [address] [facility] [place], [place] [address] [facility] Management ClinicStart: 10-17-2024 End: 85-70-2136Ydtlxox encounter lnnncgyxb84/11/2025 2:30 PM EST Procedure Visit [facility] [address] [place] [address] Jorge Aguilar DO [address] [place] [address] [facility] OBStart: 09-19-2024 End: 92-61-3510GJ PelvisUS Pelvis w/ TV Imaging Routine Dysfunctional uterine bleeding Expected: 09/19/2024, Expires: 09/19/2025[facility] Work Phone: comment on above:Expected: 09/19/2024, Expires: 09/19/2025Start: 09-19-2024 End: 20-13-6738Wnzqiln encounter procedureNOMS BCP OBComment on above:Arrived Start: 09-11-2024 End: 41-97-6198FhdgbnnusrdtfWJMK Healthcare Work Phone: Comment on above:Expected: 09/11/2024 (Approximate), Expires: 09/11/2025Expected: 09/11/2024, Expires: 09/11/2025Start: 09-11-2024 End: 43-42-8876Kvxmzzzszkzpg Ab [Units/volume] in Serum or PlasmaThyroglobulin Ab Lab Routine Postprocedural hypothyroidism Malignant neoplasm of thyroid gland (CMS-HCC) Expected: 09/11/2024, Expires: 09/11/2025[facility] Work Phone: Comment on above:Expected: 09/11/2024, Expires: 09/11/2025Start: 09-11-2024 End: 49-14-3091Heqsvfsfwwxpy AntibodyThyroglobulin Antibody Lab Routine Postoperative hypothyroidism (CMS/HCC) Papillary thyroid carcinoma (CMS/HCC) Expected: 09/11/2024 (Approximate), Expires: 09/11/2025[facility] HealthcareComment on above:Expected: 09/11/2024 (Approximate), Expires: 09/11/2025Start: 09-11-2024 End: 75-67-3158Cjsuyeb profile includes TSH BR2Iucetup profile includes TSH FT4 Lab Routine Postprocedural hypothyroidism Malignant neoplasm of thyroid gland (CMS-HCC) Expected: 09/11/2024, Expires: 09/11/2025[facility] Work Phone: Comment on above:Expected: 09/11/2024, Expires: 09/11/2025Start: 09-11-2024 End: 62-57-9785Iaaywnxrpoh [Units/volume] in Serum or PlasmaTSH Lab Routine Postoperative hypothyroidism (CMS/HCC) Papillary thyroid carcinoma (CMS/HCC) Expected: 09/11/2024 (Approximate), Expires: 09/11/2025[facility] HealthcareComment on above:Expected: 09/11/2024 (Approximate), Expires: 09/11/2025Start: 09-11-2024 End: 88-99-2545Fzklcffev (T4) free [Mass/volume] in Serum or PlasmaMercy Health St. Elizabeth Youngstown HospitalComment on above:Expected: 09/11/2024 (Approximate), Expires: 09/11/2025Expected: 09/11/2024, Expires: 09/11/2025Start: 09-11-2024 End: 89-95-2466Gwkidarjhuiuhupu (T3) Free [Mass/volume] in Serum or Plasma [facility] HospitalComment on above:Expected: 09/11/2024 (Approximate), Expires: 09/11/2025Expected: 09/11/2024, Expires: 09/11/2025Start: 09-07-2024 End: 13-60-6204Qieisjd encounter apwjylwmg33/02/2025 2:30 PM EST Office Visit [facility] [address] [place] [address] Kyler Carvajal PA [address], [address] [place], [place] [address] [facility] Management ClinicStart: 07-04-2024 End: 94-66-3158Ahgsowb encounter rwzddedtd69/29/2024 12:30 PM EDT Office Visit [facility] [address] [place] [address] Kyler Carvajal PA [address] [place] [address] [facility] Pain Management ClinicStart: 06-16-2024 End: 66-25-3366Giifuxhkf to same day surgery jbchxi4406/16/2024 11:15 AM EDT - 06/16/2024 11:22 AM EDT Surgery [facility] [address] [place] [address] Zeeshan Perry MD [address] [place] [address] INJECTION BLOCK SACROILIAC JOINT [18916 (CPT )][facility] - Pain ProceduresComment on above:INJECTION BLOCK SACROILIAC JOINT [56151 (CPT )]Start: 06-16-2024 End: 49-07-1452Nycgnq si joint arthrgrphy&/anes/steroid w/imaINJECTION BLOCK SACROILIAC JOINT Disorder of sacrum 06/16/2024 11:15 AM EDTFREMONT PAINStart: 03-16-3609Abxylsmnvy hospital visit by iuwnslavq17/11/2024 11:15 AM EDT Hospital Encounter [facility] [address] [place] [address] Zeeshan Perry MD [address], [place] [address] [facility] - Pain ProceduresStart: 47-46-5620Fegkhezxp vaccinationInfluenza Vaccine [facility] SystemStart: 83-22-7614NUX, Provider: Edy Dominguez, Status: Pen, Time: 2:30 PMFUV, Provider: Edy Dominguez, Status: Pen, Time: 2:30 PM QE-Xibovodbkubfrm-Ocyjersw Work Phone: Start: 66-09-7249FYZ, Provider: Edy Dominguez, Status: Pen, Time: 4:00 PMPOV, Provider: Edy Dominguez, Status: Pen, Time: 4:00 PM LX-Aplpcorhyozxgr-Pxvqgeaf Work Phone: Start: 11-63-8938WJOJNRD, Provider: Edy Dominguez, Status: Pen, Time: 7:00 [facility], Provider: Edy Dominguez, Status: Pen, Time: 7:00 RXFQ-Egypnmnkvhjulu-Sikgglkj Work Phone: Start: 87-78-3757HBC, Provider: Edy Dominguez, Status: Pen, Time: 3:00 PMFUV, Provider: Edy Dominguez, Status: Pen, Time: 3:00 PM QA-Tigigpopkejevc-Lgbctris Work Phone: Start: 08-51-2305CQSKVOG, Provider: Edy Dominguez, Status: Pen, Time: 11:00 [facility], Provider: Edy Dominguez, Status: Pen, Time: 11:00 WVQK-Yfbenvccvgnocb-Ozkqeosy Work Phone: Start: 47-41-3429Oospcopse for malignant neoplasm of cervixPap SmearPending sale to [facility] Healthtart: 78-00-1884RGpR,Tdap and Td Vaccines (1 - Tdap)DTaP,Tdap and Td Vaccines (1 - Tdap)[facility] ([facility]) [facility] Cent[facility]art: 57-92-9264Nlips BMI Follow Up PlanAdult BMI Follow Up PlanMarion Hospital Verteego ([facility] [employer]) [facility] Centertart: 22-99-1798Pidiuzhfgd ScreeningDepression ScreeningMercy Health St. Elizabeth Youngstown HospitalTHIN PREP TIS PAP AND HR HPV DNATHIN PREP TIS PAP AND HR HPV DNA Pathology and Cytology Routine Well woman exam with routine gynecological exam Ordered: 05/29/2025[facility] AudioairComment on above:Ordered: 05/29/2025Tissue examTissue exam Pathology and Cytology Routine Dysfunctional uterine bleeding Pre-operative exam Ordered: 11/01/20248 [employer] Work Phone: comment on above:Ordered: 11/01/2024 End: 46-86-5915KB Lumbar spine 2 or 3 ViewsX-ray spine lumbar 2 or 3 views Imaging Routine Lumbosacral spondylosis without myelopathy 1 Occurrences starting 06/07/2025 until 06/07/2026[facility] Work Phone: Comment on above:1 Occurrences starting 06/07/2025 until 06/07/2026XR Lumbar spine 2 or 3 ViewsX-ray spine lumbar 2 or 3 views Imaging Routine Lumbosacral spondylosis without myelopathy 06/07/2025 1:49 PM [facility] Immunizations Immunization DateImmunizationNotesCare DplszzyxKxfnpwsa37-88-0641rvdcnfjvm, injectable, quadrivalent, contains preservativeThi Stephens MD Work Phone: [facility] HospitalLyquetlnro05-71-2977bwqrmhhdk virus vaccine, unspecified formulationKytressa FRANCO Work Phone: [facility] HospitalSrbbqx76-23-7630mvlbuvvmc, injectable, quadrivalent, contains preservativeThi Stephens MD Work Phone: [facility] Payers DatePayer CategoryPayerPolicy [id number]-pay2024Medicare (Managed Care)[employer] Member Subscriber Plan / Payer (Effective 2023-Present) Name: Lauro Pinto Relation to Subscriber: Self Name: Lauro Pinto Payer ID: Not on file Group ID: [id number] Type: Not on file Address: [address] [place] [id number] 2023Medicaid [id number] 2023MedicareANTHEMMedicareANTHEM MEDICARE ANTHEM MEDICARE ADVANTAGE [id number] 2022-Present [phone] [address] [place] [id number] Medicare HMOANTHEM MEDICARE Member Subscriber Plan / Payer (Effective 2022-Present) Name: Lauro Pinto Relation to Subscriber: Self Name: Lauro Pinto Payer ID: [id number] (NAIC) Group ID: [id number] Type: Not on file Address: [facility] [address] [place] [id number] [id number] InsuranceAUTO INSURANCE [id number] [id number] 2..1.899575.3.57[id number] 2..1.947454.3.57[id number] 2..1.693344.3.57[id number] 2..1.998133.3.57[id number] 2..1.175141.3.57[id number] 2..1.304193.3.579.2.[id number] 2..1.234769.3.57[id number] 2.16.840.1.137846.3.57[id number] 2.16.840.1.159560.3.57[id number] 2.840.1.974060.3.579.[id number] 2.840.1.126608.3.57[id number] 2.840.1.361788.3.57[id number] 2.840.1.741590.3.57[id number] 2.0.1.855188.3.579.2.45[id number] 2.840.1.619213.3.579.[id number] 2.840.1.822592.3.579.2.10[id number] 2.840.1.630879.3.579.[id number] 2.840.1.369718.3.579.[id number] 2.840.1.146863.3.579.[id number] 2.840.1.655092.3.579.2.7[id number] 2.840.1.766797.3.579.[id number] 2.16.840.1.386988.3.579.2.5[id number] 2..840.1.310109.3.57[id number] 2.16.840.1.102730.3.57[id number] 2..840.1.158959.3.579.[id number] 2.840.1.646978.3.579.2.45728-93-4045Mdwlxwo25841028 2..840.1.490726.3.579.2.8[id number] 2.840.1.964900.3.579.2.08676-69-8435Xnfnslv47572918 2.840.1.971371.3.579.2.08247-94-6296Yyauenc09563297 2..840.1.835258.3.57[id number] 2.840.1.415517.3.57[id number] 2.840.1.548829.3.57[id number] 2.840.1.354801.3.579.2.718 [id number] 1960Medicare [id number] Health [id number] 2.840.1.433232.3.579.2.241Ipocvnv39689990 2..840.1.480784.3.579.2.531 [id number] 2..840.1.6[id number] 2.16.840.1.884333.3.579.2.531 Social History DateTypeDetailFacilityUnknown if ever smokedNort Writer.ly Other Start: 08-09-2024 End: 00-61-3448Yqt Assigned At BirthProSamaritan HospitalTobacco smoking status NHISUnknown if ever smokedHolzer Hospital Work Phone: Start: 04-11-2015 End: 37-81-1539HvyXuosxk (finding)[facility] Hospitaltart: 16-46-1292Atu Assigned At BirthFeSt. Mary's Medical Center, [place] Campustart: 07-08-2022 End: 52-25-4173Mbofxul smoking status NHISNever smoked tobaccoTriHealth Bethesda North Hospital SystemStart: 07-08-2022 End: 55-89-6048Keywkdq use and exposureSmokeless tobacco non-userTriHealth Bethesda North Hospital SystemStart: 09-07-2024 End: 38-46-9294Ymijkybqp beverage intakeCurrent drinker of alcohol (finding) [facility] SystemStart: 08-09-2024 End: 66-44-3171Jzuxusd of Social functionMercy Health St. Elizabeth [facility]stown HospitalAdolescent depression screening yckhjhxbtw6XteCdduxgPending sale to [facility] Healthtart: 79-70-1016Ebxiqiw CommentSociallyPShelby Memorial Hospital SystemStart: 81-37-6032Cwe assigned at birthNot on fileMercy Health St. Elizabeth [facility] Medical Equipment Procedure CodeEquipment CodeEquipment Original TextEquipment IdentifierDatesScr Bn Twstof Frs 2.0x13 Ns - Sws13 - [id number]: 30-23-1799Eqccaao on above:Description: WS13 2.0 major thread, 13 mm screw, pitch 0.87 - SCR BN TWSTOF FRS 2.0X13 NS Titanium Fixos 2.0 WS twist off screwsScr Bn Twstof Frs 2.0x15 Ns - Sws15 - [id number]: 69-07-5414Grngwsi on above:Description: WS15 2.0 major thread, 15 mm screw, pitch 0.87 - SCR BN TWSTOF FRS 2.0X 15 NS Titanium Fixos 2.0 WS twist off screws Clinical Notes 05-04-2021 to 07-02-2025 Note Date & TxpaPpfxOyiclbgy84-80-0048 NoteEntered by TONEY MONTOYA DO on July 02, 2025 07:43:35 EDT From: TONEY MONTOYA DO To: [place] [address] Sent: 07/02/2025 07:43:35 EDT Subject: Medication Management Submitted: Complete:meclizine (meclizine 25 mg oral tablet) Signed by TONEY MONTOYA DO 07/02/2025 07:43:00 EDT Approved with modifications: meclizine (Meclizine HCl 25 MG Oral Tablet) TAKE 1 TABLET BY MOUTH THREE TIMES DAILY NEEDED FOR DIZZINESS Qty: 30 tab(s) Days Supply: 10 Refills: 1 Substitutions Allowed Route To Pharmacy - [place] [address] From: [place] [address] To: TONEY MONTOYA DO Sent: July 01, 2025 12:19:46 PM CDT Subject: Medication Management Due: July 02, 2025 12:03:13 AM CDT On Hold Pending Signature Dispensed Drug: meclizine (meclizine 25 mg oral tablet), TAKE 1 TABLET BY MOUTH THREE TIMES DAILY NEEDED FOR DIZZINESS Quantity: 30 tab(s) Days Supply: 10 Refills: 0 Substitutions [id number] Note Entered by TONEY MONTOYA DO on June 25, 2025 07:31:12 EDT From: TONEY MONTOYA DO To: [place] [address] Sent: 06/25/2025 07:31:12 EDT Subject: Medication Management Submitted: Complete:busPIRone (busPIRone 10 mg oral tablet) Signed by TONEY MONTOYA DO 06/25/2025 07:31:00 EDT Approved with modifications: busPIRone (busPIRone HCl 10 MG Oral Tablet) Take 1 tablet by mouth twice daily as needed Qty: 60 tab(s) Days Supply: 30 Refills: 5 Substitutions Allowed Route To Pharmacy - [place] [address] From: [place] [address] To: TONEY MONTOYA DO Sent: June 23, 2025 10:19:07 AM CDT Subject: Medication Management Due: June 24, 2025 12:02:50 AM CDT On Hold Pending Signature Dispensed Drug: busPIRone (busPIRone 10 mg oral tablet), Take 1 tablet by mouth twice daily as needed Quantity: 60 tab(s) Days Supply: 30 Refills: 0 Substitutions [id number] Note Entered by TONEY MONTOYA DO on June 11, 2025 07:37:34 EDT From: TONEY MONTOYA DO To: [place] [address] Sent: 06/11/2025 07:37:34 EDT Subject: Medication Management Submitted: Complete:dicyclomine (dicyclomine 20 mg oral tablet) Signed by TONEY MONTOYA DO 06/11/2025 07:37:00 EDT Approved with modifications: dicyclomine (DICYCLOMINE 20MG TAB) Take 1 tablet by mouth 4 times daily Qty: 120 tab(s) Days Supply: 30 Refills: 5 Substitutions Allowed Route To Pharmacy - [facility] From: [facility] To: TONEY MONTOYA DO Sent: June 10, 2025 5:41:15 AM CDT Subject: Medication Management Due: June 11, 2025 12:18:16 AM CDT On Hold Pending Signature Dispensed Drug: dicyclomine (dicyclomine 20 mg oral tablet), Take 1 tablet by mouth 4 times daily Quantity: 120 tab(s) Days Supply: 30 Refills: 0 Substitutions Allowed [id number] History of Present illness Narrative* JOAN John - 06/07/2025 1:15 PM EDT [facility] [address] [place] [address] Patient: Lauro Pinto Sex: female : 1975 [...] before treatment: 6/10 Pain scale after treatment: 1-210 Back Pain This is a chronic (1993) [...] 03/20/2022 Performed by Zeeshan Perry MD at [facility] INJECTION BLOCK NERVE MEDIAL BRANCH Bilat L 4/5,5/1 Bilateral 02/06/2022 Performed by Zeeshan Perry MD at [facility] INJECTION BLOCK SACROILIAC JOINT Bilateral 03/30/2025 Performed by Zeeshan Perry MD at [facility] INJECTION BLOCK SACROILIAC JOINT Bilateral 11/17/2024 Performed by Zeeshan Perry MD at [facility] INJECTION BLOCK SACROILIAC JOINT Bilateral 08/11/2024 Performed by Zeeshan Perry MD at [facility] INJECTION BLOCK SACROILIAC JOINT Bilateral 07/09/2023 Performed by Zeeshan Perry MD at [facility] INJECTION BLOCK SACROILIAC JOINT Bilateral 08/07/2022 Performed by Zeeshan Perry MD at [facility] MEDIAL BRANCH NERVE BLOCK Bialteral L 3/4, 4/5 Medial Branhc Block X 1 Bilateral 05/07/2017 Performed by Zeeshan Perry MD at [facility] MEDIAL BRANCH NERVE BLOCK BILATERAL L3/4, 4/5 Bilateral 10/22/2017 Performed by Zeeshan Perry MD at [facility] KNEE ARTHROSCOPY W/ MENISCECTOMY Left 11/2022 OSTEOTOMY KELTON PROCEDURE METATARSAL Right 02/11/2018 Performed by Hector Watson DPM at [facility] RADIOFREQUENCY ABLATION SPINAL left L 4/5, 5/1 Left 05/15/2022 Performed by Zeeshan Perry MD at [facility] RADIOFREQUENCY ABLATION SPINAL right L 4/5,5/1 Right 04/24/2022 Performed by Zeeshan Perry MD at [facility] RADIOFREQUENCY ABLATION SPINAL: right L34 45 rfa Right 03/11/2018 Performed by Zeeshan Perry MD at [facility] SPINE SURGERY 09/06/2009 L5/S1 diskectomy and [...] JOAN John 06/07/25 1415 documented in this encounterMercy Health St. [facility]09-29-2025 NoteEntered by TONEY MONTOYA DO on June 04, 2025 07:37:41 EDT From: TONEY MONTOYA DO To: [place] [address] Sent: 06/04/2025 07:37:41 EDT Subject: Medication Management Submitted: Complete:mirtazapine (mirtazapine 30 mg oral tablet) Signed by TONEY MONTOYA DO 06/04/2025 07:37:00 EDT Approved with modifications: mirtazapine (Mirtazapine 30 MG Oral Tablet) TAKE 1 TABLET BY MOUTH ONCE DAILY AT BEDTIME Qty: 30 tab(s) Days Supply: 30 Refills: 5 Substitutions Allowed Route To Pharmacy - [place] [address] From: [place] [address] To: TONEY MONTOYA DO Sent: June 03, 2025 5:41:18 AM CDT Subject: Medication Management Due: June 04, 2025 12:20:17 AM CDT On Hold Pending Signature Dispensed Drug: mirtazapine (mirtazapine 30 mg oral tablet), TAKE 1 TABLET BY MOUTH ONCE DAILY AT BEDTIME Quantity: 30 tab(s) Days Supply: 30 Refills: 0 Substitutions [id number] History of Present illness Narrative* Leandra Rangel - 05/29/2025 1:40 PM EDT Reason for Appointment: Patient ID: Lauro Pinto is a 50 y.o. female who presents for Gynecologic Exam and Pre-op Visit Patient presents today for Pre Op/Annual appointment. Patient is scheduled to undergo Da Alison assisted Laparoscopic Hysterectomy, possible exploratory laparotomy, possible BSO, possible cystoscopy on 06-27-[address] Aguilar at [facility]. MEDICATIONS Current Outpatient Medications Medication Instructions [...] mass index (BMI) of 40.0 to 49.9 ([facility]) Papillary thyroid carcinoma (HCC) 07/2021 Post-surgical hypothyroidism Vitamin D deficiency, unspecified HISTORY PAST MEDICAL HISTORY SOCIAL HISTORY Past Medical History: Diagnosis Date Dietary counseling and surveillance Morbid obesity with body mass index (BMI) of 40.0 to 49.9 ([facility]) Papillary thyroid carcinoma (HCC) 07/2021 [...] nursing note reviewed. Exam conducted with a domestic technician present. Vitals: Estimated body mass index is [...] reviewed, and patient is to proceed to [facility] OR. Follow Up: Patient is to follow up at 1 & 6 weeks post operative to assess proper healing and recovery from procedure. Documented by Lotus Bailey LPN on behalf of: Jorge Aguilar DO documented in this encounterSainte Genevieve County Memorial [id number] Note From: TONEY MONTOYA DO To: [facility] Clinical Pool ([facility]); Sent: 05/28/2025 12:54:45 EDT Subject: FW: Medication Management Due Date/Time: 05/29/2025 12:26:00 EDT Caller Name: LAURO PINTO; Caller Number: , From: [facility] To: TONEY MONTOYA DO Sent: May 28, 2025 11:26:13 AM CDT Subject: Medication Management Due: May 29, 2025 12:02:02 AM CDT On Hold Pending Signature Dispensed Drug: LORazepam (LORazepam 0.5 mg oral tablet), TAKE 1 TABLET BY MOUTH THREE TIMES DAILY Quantity: 90 tab(s) Days Supply: 30 Refills: 0 Substitutions Allowed Notes from Pharmacy: From: Mey Gutierrez To: [place] [address] Sent: 05/28/2025 13:25:06 EDT Subject: FW: Medication Management Not Approved: proposed to provider LORazepam (LORazepam 0.5 MG Oral Tablet) TAKE 1 TABLET BY MOUTH THREE TIMES DAILY Qty: 90 tab(s) Days Supply: 30 Refills: 0 Substitutions Allowed Route To [place] [address] Signed by Mey Gutierrez [facility]09-06-2025 NoteEntered by TONEY MONTOYA DO on May 12, 2025 11:34:27 EDT From: TONEY MONTOYA DO To: [place] [address] Sent: 05/12/2025 11:34:27 EDT Subject: Medication Management Submitted: Complete:deutetrabenazine (Austedo 6 mg oral tablet) Signed by TONEY MONTOYA DO 05/12/2025 11:34:00 EDT Approved deutetrabenazine (Austedo 6 MG Oral Tablet) Take 1 tablet by mouth twice daily with food Qty: 60 tab(s) Days Supply: 30 Refills: 0 Substitutions Allowed Route To [place] [address] From: [place] [address] To: TONEY MONTOYA DO Sent: May 12, 2025 9:03:43 AM CDT Subject: Medication Management Due: May 13, 2025 12:23:41 AM CDT On Hold Pending Signature Dispensed Drug: deutetrabenazine (Austedo 6 mg oral tablet), Take 1 tablet by mouth twice daily with food Quantity: 60 tab(s) Days Supply: 30 Refills: 0 Substitutions [id number] Note Entered by TONEY MONTOYA DO on April 30, 2025 11:41:27 EDT From: TONEY MONTOYA DO To: [place] [id number] Sent: 04/30/2025 11:41:27 EDT Subject: Medication Management Submitted: Complete:citalopram (citalopram 20 mg oral tablet) Signed by TONEY MONTOYA DO 04/30/2025 11:41:00 EDT Approved with modifications: citalopram (Citalopram Hydrobromide 20 MG Oral Tablet) Take 1 tablet by mouth once daily Qty: 30 tab(s) Days Supply: 30 Refills: 5 Substitutions Allowed Route To Pharmacy - [place] [id number] From: [place] [id number] To: TONEY MONTOYA DO Sent: April 30, 2025 10:03:45 AM CDT Subject: Medication Management Due: May 01, 2025 12:02:58 AM CDT On Hold Pending Signature Dispensed Drug: citalopram (citalopram 20 mg oral tablet), Take 1 tablet by mouth once daily Quantity: 30 tab(s) Days Supply: 30 Refills: 0 Substitutions [id number] History of Present illness Narrative* Lotus Bailey LPN - 04/18/2025 1:50 PM EDT Reason for [...] mass index (BMI) of 40.0 to 49.9 ([facility]) Papillary thyroid carcinoma (HCC) 07/2021 Post-surgical hypothyroidism Vitamin D deficiency, unspecified HISTORY PAST MEDICAL HISTORY SOCIAL HISTORY Past Medical History: Diagnosis Date Dietary counseling and surveillance Morbid obesity with body mass index (BMI) of 40.0 to 49.9 ([facility]) Papillary thyroid carcinoma (HCC) 07/2021 [...] nursing note reviewed. Exam conducted with a domestic technician present. Vitals: Estimated body mass index is [...] of: Jorge Aguilar DO documented in this encounterSainte Genevieve County Memorial HospitalYujwvmfflu03-24-7025 NoteEntered by TONEY MONTOYA DO on March 08, 2025 10:58:59 EDT From: TONEY MONTOYA DO To: [place] [address] Sent: 03/08/2025 10:58:58 EDT Subject: Medication Management Submitted: Complete:cariprazine (Vraylar 6 mg oral capsule) Signed by TONEY MONTOYA DO 03/08/2025 10:58:00 EDT Approved with modifications: cariprazine (Vraylar 6 MG Oral Capsule) Take 1 capsule by mouth once daily Qty: 30 cap(s) Days Supply: 30 Refills: 2 Substitutions Allowed Route To Pharmacy - [place] [address] From: [facility] To: TONEY MONTOYA DO Sent: March 08, 2025 9:53:19 AM CDT Subject: Medication Management Due: March 09, 2025 12:01:42 AM CDT On Hold Pending Signature Dispensed Drug: cariprazine (Vraylar 6 mg oral capsule), Take 1 capsule by mouth once daily Quantity: 30 cap(s) Days Supply: 30 Refills: 0 Substitutions [id number] History of Present illness Narrative* JOAN John - 03/01/2025 1:00 PM EDT [facility] [address] [place] [address] Patient: Lauro A Blair Sex: female : 1975 Age: 50 y.o. PCP: TONEY MONTOYA DO 03/01/2025 Luaro Stephanie Pinto is here for a(n) 3 month [...] 03/20/2022 Performed by Zeeshan Perry MD at [facility] NERVE MEDIAL BRANCH Bilat L 4/5,01/04 Bilateral 02/06/2022 Performed by Zeeshan Perry MD at [facility] SACROILIAC JOINT Bilateral 11/17/2024 Performed by Zeeshan Perry MD at [facility] SACROILIAC JOINT Bilateral 08/11/2024 Performed by Zeeshan Perry MD at [facility] SACROILIAC JOINT Bilateral 07/09/2023 Performed by Zeeshan Perry MD at [facility] SACROILIAC JOINT Bilateral 08/07/2022 Performed by Zeeshan Perry MD at [facility] MEDIAL BRANCH NERVE BLOCK Bialteral L 3/4, 4/5 Medial Branhc Block X 1 Bilateral 05/07/2017 Performed by Zeeshan Perry MD at [facility] INJECTION MEDIAL BRANCH NERVE BLOCK BILATERAL L3/4, 4/5 Bilateral 10/22/2017 Performed by Zeeshan Perry MD at [facility] KNEE ARTHROSCOPY W/ MENISCECTOMY Left 11/2022 OSTEOTOMY KELTON PROCEDURE METATARSAL Right 02/11/2018 Performed by Hector Watson DPM at [facility] RADIOFREQUENCY ABLATION SPINAL left L 4/5, 5/1 Left 05/15/2022 Performed by Zeeshan Perry MD at [facility] RADIOFREQUENCY ABLATION SPINAL right L 4/5,5/1 Right 04/24/2022 Performed by Zeeshan Perry MD at [facility] RADIOFREQUENCY ABLATION SPINAL: right L34 45 rfa Right 03/11/2018 Performed by Zeeshan Perry MD at [facility] SPINE SURGERY 09/06/2009 L5/S1 diskectomy and [...] the above service. Zainab Robles CNA 03/01/25 6824 JOAN John 03/01/25 1340 documented in this encounterMer[facility] Health St. [facility]06-26-2025 Instructions* Patient Instructions* Zainabstephanie Robles CNA - 03/01/2025 1:00 PM EDT [...] the nearest emergency room. documented in this encounterMercy Health St. [facility]06-25-2025 History of Present illness Narrative* Thi [...] 08/2022 follow up visit on 08/18/2022 on 200+18=926 mcg daily. no new lab yet. HPI: 01/2022 New patient sent from Dr. Edy Dominguez, the surgeon, with the surgery for her twice in [facility] in [place], first one in left lobe for thyroid [...] not have the pathology report left side. [id number], largest foci 0.8 cm. SUBJECTIVE: MEDICATIONS: Current [...] mass index (BMI) of 40.0 to 49.9 ([facility]-HCC) Papillary thyroid carcinoma (HCC) 07/2021 [...] (BMI) of 40.0 to 44.9 in adult ([facility]-HCC) Diet and exercise reviewed with the patient Follow up in about 6 months (around 08/30/2025). documented in this encounterSainte Genevieve County Memorial HospitalIrjcuudzkg75-47-0522 NoteEntered by TONEY MONTOYA DO on February 07, 2025 16:09:29 EDT From: TONEY MONTOYA DO To: [facility] Sent: 02/07/2025 16:09:29 EDT Subject: [...] 1 Substitutions Allowed Route To Pharmacy - [facility] From: [place] [address] To: TONEY MONTOYA DO Sent: February 07, 2025 2:42:48 PM CDT Subject: Medication Management Due: February 08, 2025 12:58:21 PM CDT On Hold Pending Signature Dispensed Drug: ferrous gluconate (ferrous gluconate 324 mg (38 mg elemental iron) oral tablet), Take 1 tablet by mouth once daily Quantity: 100 tab(s) Days Supply: 100 Refills: 0 Substitutions [id number] Note Entered by TONEY MONTOYA DO on January 01, 2025 11:36:04 EDT From: TONEY OMNTOYA DO To: [place] [address] Sent: 01/01/2025 11:36:03 EDT Subject: Medication Management Submitted: Complete:busPIRone (busPIRone 10 mg oral tablet) Signed by TONEY MONTOYA DO 01/01/2025 11:36:00 EDT Approved with modifications: busPIRone (busPIRone HCl 10 MG Oral Tablet) Take 1 tablet by mouth twice daily as needed Qty: 60 tab(s) Days Supply: 30 Refills: 1 Substitutions Allowed Route To Pharmacy - [place] [address] From: [place] [address] To: TONEY MONTOYA DO Sent: January 01, 2025 10:01:56 AM CDT Subject: Medication Management Due: January 02, 2025 9:38:10 AM CDT On Hold Pending Signature Dispensed Drug: busPIRone (busPIRone 10 mg oral tablet), Take 1 tablet by mouth twice daily as needed Quantity: 60 tab(s) Days Supply: 30 Refills: 0 Substitutions Allowed [id number] Note Entered by TONEY MONTOYA DO on December 18, 2024 07:29:23 EDT From: TONEY MONTOYA DO To: [place] [address] Sent: 12/18/2024 07:29:23 EDT Subject: Medication Management [...] Refills: 5 Substitutions Allowed Route To Pharmacy [place] [address] Approved with modifications: mirtazapine (Mirtazapine 30 MG Oral Tablet) TAKE 1 TABLET BY MOUTH ONCE DAILY AT BEDTIME Qty: 30 tab(s) Days Supply: 30 Refills: 5 Substitutions Allowed Route To [place] [address] From: [place] [address] To: TONEY MONTOYA DO Sent: December 17, [...] Refills: 0 Substitutions Allowed [id number] History of Present illness Narrative* JOAN John - 11/30/2024 9:00 AM EDT [facility] [address] [place] [address] Patient: Lauro Pinto Sex: female : 1975 [...] 03/20/2022 Performed by Zeeshan Perry MD at [facility] INJECTION BLOCK NERVE MEDIAL BRANCH Bilat L 4/5,5/1 Bilateral 02/06/2022 Performed by Zeeshan Perry MD at [facility] INJECTION BLOCK SACROILIAC JOINT Bilateral 11/17/2024 Performed by Zeeshan Perry MD at [facility] INJECTION BLOCK SACROILIAC JOINT Bilateral 08/11/2024 Performed by Zeeshan Perry MD at [facility] INJECTION BLOCK SACROILIAC JOINT Bilateral 07/09/2023 Performed by Zeeshan Perry MD at [facility] INJECTION BLOCK SACROILIAC JOINT Bilateral 08/07/2022 Performed by Zeeshan Perry MD at [facility] INJECTION MEDIAL BRANCH NERVE BLOCK Bialteral L 3/4, 4/5 Medial Branhc Block X 1 Bilateral 05/07/2017 Performed by Zeeshan Perry MD at [facility] MEDIAL BRANCH NERVE BLOCK BILATERAL L3/4, 4/5 Bilateral 10/22/2017 Performed by Zeeshan Perry MD at [facility] KNEE ARTHROSCOPY W/ MENISCECTOMY Left 11/2022 OSTEOTOMY KELTON PROCEDURE METATARSAL Right 02/11/2018 Performed by Hector Watson DPM at [facility] RADIOFREQUENCY ABLATION SPINAL left L 4/5, 5/1 Left 05/15/2022 Performed by Zeeshan Perry MD at [facility] RADIOFREQUENCY ABLATION SPINAL right L 4/5,5/1 Right 04/24/2022 Performed by Zeeshan Perry MD at [facility] RADIOFREQUENCY ABLATION SPINAL: right L34 45 rfa Right 03/11/2018 Performed by Zeeshan Perry MD at [facility] SPINE SURGERY 09/06/2009 L5/S1 diskectomy and [...] JOAN John 11/30/24 0932 documented in this [facility]03-17-2025 NoteEntered by TONEY MONTOYA DO on November 20, 2024 07:29:00 EDT From: TONEY MONTOYA DO To: [place] [address] Sent: 11/20/2024 07:29:00 EDT Subject: Medication Management Submitted: Complete:cariprazine (Vraylar 1.5 mg oral capsule) Signed by TONEY MONTOYA DO 11/20/2024 07:28:00 EDT Approved with modifications: cariprazine (Vraylar 1.5 MG Oral Capsule) Take 1 capsule by mouth once daily Qty: 30 cap(s) Days Supply: 30 Refills: 5 Substitutions Allowed Route To Pharmacy - [place] [address] From: [place] [address] To: TONEY MONTOYA DO Sent: November 19, 2024 5:41:47 AM CDT Subject: Medication Management Due: November 20, 2024 12:27:06 AM CDT On Hold Pending Signature Dispensed Drug: cariprazine (Vraylar 1.5 mg oral capsule), Take 1 capsule by mouth once daily Quantity: 30 cap(s) Days Supply: 30 Refills: 0 Substitutions Allowed [id number] Note Entered by TONEY MONTOYA DO on November 06, 2024 11:01:24 EST From: TONEY MONTOYA DO To: [place] [address] Sent: 11/06/2024 11:01:24 EST Subject: Medication Management Submitted: Complete:citalopram (citalopram 20 mg oral tablet) Signed by TONEY MONTOYA DO 11/06/2024 11:01:00 EST Approved with modifications: citalopram (Citalopram Hydrobromide 20 MG Oral Tablet) Take 1 tablet by mouth once daily Qty: 30 tab(s) Days Supply: 30 Refills: 5 Substitutions Allowed Route To Pharmacy - [facility] From: [facility] To: TONEY MONTOYA DO Sent: November 06, 2024 8:20:27 AM BISQUE FINISHER Subject: Medication Management Due: November 07, 2024 12:02:49 AM BISQUE FINISHER On Hold Pending Signature Dispensed Drug: citalopram (citalopram 20 mg oral tablet), Take 1 tablet by mouth once daily Quantity: 30 tab(s) Days Supply: 30 Refills: 0 Substitutions Allowed [id number] History of Present illness Narrative* Lotus Bailey, DISTILLATION OPERATOR - 11/01/2024 1:00 PM EST Reason for Appointment: Patient ID: Lauro Pinto is a 49 y.o. female who presents for Vaginal Bleeding and Pre-op Visit Patient presents today for Pre Op/Endometrial Biopsy appointment. Patient is scheduled to undergo Endometrial Ablation with Anya on 11/10/[address] Aguilar at [facility]. MEDICATIONS Current Outpatient Medications Medication Instructions [...] mass index (BMI) of 40.0 to 49.9 ([facility]) Papillary thyroid carcinoma ([facility]) 07/2021 Post-surgical hypothyroidism ([facility]) Vitamin D deficiency, unspecified HISTORY PAST MEDICAL HISTORY SOCIAL HISTORY Past Medical History: Diagnosis Date Dietary counseling and surveillance Morbid obesity with body mass index (BMI) of 40.0 to 49.9 ([facility]) Papillary thyroid carcinoma ([facility]/HCC) 07/2021 left side Jul 2021, Completion sx November 2021 Post-surgical hypothyroidism ([facility]) Vitamin D deficiency, unspecified Social [...] nursing note reviewed. Exam conducted with a domestic technician present. Vitals: Estimated body mass index is [...] reviewed, and patient is to proceed to [facility] OR. Follow Up: Patient is to follow up between 1-2 weeks post operative to assess proper healing and recovery fromprocedure. Documented by Lotus Bailey LPN on behalf of: Jorge Aguilar DO documented in this encounterSainte Genevieve County Memorial [id number] NoteEntered by TONEY MONTOYA DO on October 31, 2024 14:25:57 EST From: TONEY MONTOYA DO To: [facility] Sent: 10/31/2024 14:25:57 EST Subject: Medication Management Submitted: Complete:omeprazole (omeprazole 40 mg oral delayed release capsule) Signed by TONEY MONTOYA DO 10/31/2024 14:25:00 EST Approved with modifications: omeprazole (OMEPRAZOLE DR 40MG CAP) Take 1 capsule by mouth once daily Qty: 30 cap(s) Days Supply: 30 Refills: 5 Substitutions Allowed Route To Pharmacy - [facility] From: [facility] To: TONEY MONTOYA DO Sent: October 31, 2024 12:02:15 PM BISQUE FINISHER Subject: Medication Management Due: November 01, 2024 12:11:39 AM BISQUE FINISHER On Hold Pending Signature Dispensed Drug: omeprazole (omeprazole 40 mg oral delayed release capsule), Take 1 capsule by mouthonce daily Quantity: 30 cap(s) Days Supply: 30 Refills: 0 Substitutions Allowed [id number] History of Present illness Narrative* JOAN John - 10/26/2024 2:00 PM EST [facility] [address] [place] [address] Patient: Lauro Pinto Sex: female : 1975 [...] 03/20/2022 Performed by Zeeshan Perry MD at [facility] INJECTION BLOCK NERVE MEDIAL BRANCH Bilat L 4/5,5/ Bilateral 02/06/2022 Performed by Zeeshan Perry MD at [facility] INJECTION BLOCK SACROILIAC JOINT Bilateral 08/11/2024 Performed by Zeeshan Perry MD at [facility] INJECTION BLOCK SACROILIAC JOINT Bilateral 07/09/2023 Performed by Zeeshan Perry MD at [facility] INJECTION BLOCK SACROILIAC JOINT Bilateral 08/07/2022 Performed by Zeeshan Perry MD at [facility] INJECTION MEDIAL BRANCH NERVE BLOCK Bialteral L 3/4, 4/5 Medial Branhc Block X 1 Bilateral 05/07/2017 Performed by Zeeshan Perry MD at [facility] INJECTION MEDIAL BRANCH NERVE BLOCK BILATERAL L3/4, 4/5 Bilateral 10/22/2017 Performed by Zeeshan Perry MD at [facility] KNEE ARTHROSCOPY W/ MENISCECTOMY Left 11/2022 OSTEOTOMY KELTON PROCEDURE METATARSAL Right 02/11/2018 Performed by Hector Watson DPM at [facility] RADIOFREQUENCY ABLATION SPINAL left L 4/5, 5/ Left 05/15/2022 Performed by Zeeshan Perry MD at [facility] RADIOFREQUENCY ABLATION SPINAL right L 4/5,5/1 Right 04/24/2022 Performed by Zeeshan Perry MD at [facility] RADIOFREQUENCY ABLATION SPINAL: right L34 45 rfa Right 03/11/2018 Performed by Zeeshan Perry MD at [facility] SPINE SURGERY 09/06/2009 L5/S1 diskectomy and [...] JOAN John 10/31/24 1146 documented in [address] encounterMer[facility] Health [facility]. [facility]02-20-2025 Instructions* Patient Instructions* Zainab Robles CNA - [...] the nearest emergency room. documented in this encounterMercy Health St. [facility]02-03-2025 NoteEntered by TONEY MONTOYA DO on October 09, 2024 07:30:49 EST From: TONEY MONTOYA DO To: [place] [address] Sent: 10/09/2024 07:30:49 EST Subject: Medication Management Submitted: Complete:busPIRone (busPIRone 10 mg oral tablet) Signed by TONEY MONTOYA DO 10/09/2024 07:30:00 EST Approved with modifications: busPIRone (busPIRone HCl 10 MG Oral Tablet) Take 1 tablet by mouth twice daily as needed Qty: 60 tab(s) Days Supply: 30 Refills: 2 Substitutions Allowed Route To Pharmacy - [place] [address] From: [place] [address] To: TONEY MONTOYA DO Sent: October 06, 2024 12:01:36 PM BISQUE FINISHER Subject: Medication Management Due: October 07, 2024 12:04:38 AM BISQUE FINISHER On Hold Pending Signature Dispensed Drug: busPIRone (busPIRone 10 mg oral tablet), Take 1 tablet by mouth twice daily as needed Quantity: 60 tab(s) Days Supply: 30 Refills: 0 Substitutions [facility]owed [id number] History of Present illness Narrative* Lotus Bailey, DISTILLATION OPERATOR - 09/19/2024 1:10 PM EST Reason for [...] mass index (BMI) of 40.0 to 49.9 ([facility]/HCC) Papillary thyroid carcinoma ([facility]/HCC) 07/2021 Post-surgical hypothyroidism ([facility]) Vitamin D deficiency, unspecified HISTORY [...] nursing note reviewed. Exam conducted with a domestic technician present. Vitals: Estimated body mass index is [...] of: Jorge Aguilar DO documented in this encounterSainte Genevieve County Memorial HospitalDketsbgazl87-43-0718 History of Present illness Narrative* Thi Stephens [...] 08/2022 follow up visit on 08/18/2022 on 200+76=329 mcg daily. no new lab yet. HPI: 01/2022 New patient sent from Dr. Edy Dominguez, the surgeon, with the surgery for her twice in [facility] in [place], first one in left lobe for thyroid [...] not have the pathology report left side. [id number], largest foci 0.8 cm. SUBJECTIVE: MEDICATIONS: Current [...] mass index (BMI) of 40.0 to 49.9 ([facility]) Papillary thyroid carcinoma ([facility]/HCC) 07/2021 [...] (BMI) of 40.0 to 44.9 in adult ([facility]) Follow up in about 3 months (around 12/10/2024). documented in this encounterSainte Genevieve County Memorial HospitalRrlsvbamvc20-16-6214 History of Present illness Narrative* JOAN John - 09/07/2024 2:30 PM EST [facility] [address] [place] [address] Patient: Lauro Pinto Sex: female : 1975 [...] 03/20/2022 Performed by Zeeshan Perry MD at [facility] BLOCK NERVE MEDIAL BRANCH Bilat L 4/5,5/1 Bilateral 02/06/2022 Performed by Zeeshan Perry MD at [facility] INJECTION BLOCK SACROILIAC JOINT Bilateral 08/11/2024 Performed by Zeeshan Perry MD at [facility] INJECTION BLOCK SACROILIAC JOINT Bilateral 07/09/2023 Performed by Zeeshan Perry MD at [facility] INJECTION BLOCK SACROILIAC JOINT Bilateral 08/07/2022 Performed by Zeeshan Perry MD at [facility] MEDIAL BRANCH NERVE BLOCK Bialteral L 3/4, 4/5 Medial Branhc Block X 1 Bilateral 05/07/2017 Performed by Zeeshan Perry MD at [facility] MEDIAL BRANCH NERVE BLOCK BILATERAL L3/4, 4/5 Bilateral 10/22/2017 Performed by Zeeshan Perry MD at [facility] KNEE ARTHROSCOPY W/ MENISCECTOMY Left 11/2022 OSTEOTOMY KELTON PROCEDURE METATARSAL Right 02/11/2018 Performed by Hector Watson DPM at [facility] RADIOFREQUENCY ABLATION SPINAL left L 4/5, 5/1 Left 05/15/2022 Performed by Zeeshan Perry MD at [facility] RADIOFREQUENCY ABLATION SPINAL right L 4/5,5/1 Right 04/24/2022 Performed by Zeeshan Perry MD at [facility] RADIOFREQUENCY ABLATION SPINAL: right L34 45 rfa Right 03/11/2018 Performed by Zeeshan Perry MD at [facility] SPINE SURGERY 09/06/2009 L5/S1 diskectomy and [...] Robles CNA 09/07/24 1507 documented in [address] encounterMer[facility] Health St. [facility]12-04-2024 Miscellaneous Notes* Telephone Encounter - Lata [...] 12:58 PM EST noted documented in this encounterMercy Health St. [facility]12-04-2024 Telephone encounter Note* Telephone Encounter - [...] if she can proceed with procedure. [facility]12-04-2024 Telephone encounter Note* Telephone Encounter - Marysol Smith PA-C - 08/09/2024 12:58 PM EST noted [facility]11-21-2024 Note [id number]2024 [facility] SUR[facility]ERY Clinical Discharge Summary PERSON INFORMATION Name LAURO PINTO Age 49 Years 1975 Sex FEMALE Language Upper Sorbian PCP TONEY MONTOYA DO Marital Status Single Med Service Ambulatory Surgery Acct# Arrival 07/25/2024 06:22:59 Visit Reason SURGERY - EGD AND COLONOSCOPY - ANEMIA AND FAMILY HX COLON CANCER [facility] LOS 019 02:30 Address: [address] [place] [address] Comment: PROVIDER INFORMATION VITALS INFORMATION Vital Sign [...] Follow up: With: Address: When: Korey Ford [address] [place] [address], [place] [address] Business (1) , only if needed With: Address: When: TONEY MONTOYA DIAGNOSIS 1:Microcytic anemia Comment: [place] [facility]11-01-2024 NoteEntered by TONEY MONTOYA DO on July 07, 2024 16:49:08 EDT From: TONEY MONTOYA DO To: [place] [address] Sent: 07/07/2024 16:49:08 EDT Subject: Medication Management Submitted: Complete:amitriptyline (amitriptyline 100 mg oral tablet) Signed by TONEY MONTOYA DO 07/07/2024 16:49:00 EDT Approved with modifications: amitriptyline (Amitriptyline HCl 100 MG Oral Tablet) TAKE 1 TABLET BY MOUTH ONCE DAILY AT BEDTIME Qty: 30 tab(s) Days Supply: 30 Refills: 5 Substitutions Allowed Route To Pharmacy - [place] [address] From: [place] [address] To: TONEY MONTOYA DO Sent: July 07, 2024 4:41:06 AM CDT Subject: Medication Management Due: July 08, 2024 12:19:20 AM CDT On Hold Pending Signature Dispensed Drug: amitriptyline (amitriptyline 100 mg oral tablet), TAKE 1 TABLET BY MOUTH ONCE DAILYAT BEDTIME Quantity: 30 tab(s) Days Supply: 30 Refills: 0 Substitutions Allowed [facility]Xfaqkftm12-07-4901 Miscellaneous Notes* Telephone Encounter - Naila Wheeler [...] Auth came back approved. documented in this encounterMercy Health St. [facility]09-23-2024 Telephone encounter Note* Telephone Encounter - Naila Wheeler - 05/29/2024 1:04 PM EDT Insurance called requesting further clinical information regarding procedure that was requested. They stated Case not meeting criteria for requested procedure because: The notes do not show that theprevious injection met requirements for 50% and 3 months duration of relief. How do you want to pro ceed? [facility] ([employer] [id number] Telephone encounter Note* Telephone Encounter - JOAN John - 05/29/2024 1:04 PM EDT Chart please [facility] [id number] Telephone encounter Note* Telephone Encounter - JOAN John - 05/29/2024 1:04 PM EDT Please call pt and ask how much relief she had after SI injection last year. I can do appeal if shehad greater than 50%. [facility] [id number] Telephone encounter Note* Telephone Encounter - Naila Wheeler - 05/29/2024 1:04 PM EDT Called patient and she reported that 30% was a mistake. She claims she received at least 50% temporary relief. [facility] ([employer] [id number] Telephone encounter Note* Telephone Encounter - JOAN [...] that repeat SI injection is medically necessary. [facility]09-23-2024 Telephone encounter Note* Telephone Encounter - [...] have been submitted. Waiting response from insurance. [facility]09-23-2024 Telephone encounter Note* Telephone Encounter - Naila Wheeler - 05/29/2024 1:04 PM EDT Auth came back approved. [facility]09-12-2024 History of Present illness Narrative* JOAN John - 05/18/2024 10:45 AM EDT [facility] [address] [place] [address] Patient: Lauro Pinto Sex: female : 1975 [...] 03/20/2022 Performed by Zeeshan Perry MD at [facility] INJECTION BLOCK NERVE MEDIAL BRANCH Bilat L 4/5,5/ Bilateral 02/06/2022 Performed by Zeeshan Perry MD at [facility] BLOCK SACROILIAC JOINT Bilateral 07/09/2023 Performed by Zeeshan Perry MD at [facility] INJECTION BLOCK SACROILIAC JOINT Bilateral 08/07/2022 Performed by Zeeshan Perry MD at [facility] INJECTION MEDIAL BRANCH NERVE BLOCK Bialteral L 3/4, 4/5 Medial Branhc Block X 1 Bilateral 05/07/2017 [facility] by [facility] HOSPITAL INJECTION MEDIAL BRANCH NERVE BLOCK BILATERAL L3/4, 4/5 Bilateral 10/22/2017 Performed by Zeeshan Perry MD at [facility] KNEE ARTHROSCOPY W/ MENISCECTOMY Left 11/2022 OSTEOTOMY KELTON PROCEDURE METATARSAL Right 02/11/2018 Performed by Hector Watson DPM at [facility] RADIOFREQUENCY ABLATION SPINAL left L 4/5, 5/1 Left 05/15/2022 Performed by Zeeshan Perry MD at [facility] RADIOFREQUENCY ABLATION SPINAL right L 4/5,5/1 Right 04/24/2022 Performed by Zeeshan Perry MD at [facility] RADIOFREQUENCY ABLATION SPINAL: right L34 45 rfa Right 03/11/2018 Performed by Zeeshan Perry MD at [facility] SPINE SURGERY 09/06/2009 L5/S1 diskectomy and [...] JOAN John 05/18/24 1340 documented in this encounterK[facility] CenterSirion Holdings [id number] Instructions* Patient Instructions* Zainab Robles CNA - [...] the nearest emergency room. 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 Completion right thyroidectomy with [...] Completion Last Updated: 04-Dec-2021 09:55 by Edy Dominguez)[facility] 12-04-2021 NoteHistory of Present Illness: /Lactating: Are You no Are You Currently Breastfeedingno History Present Illness: Reason for surgery: Thyroid cancer - completion thyroidectomy HPI: Surgery: Completion Right Thyroidectomy Name: Lauro Pinto ([id number]) Surgeon: Edy Dominguez MD Age: 46 Date [...] evaluated the patient. I personally obtained the eris and critical portions of the history and physical exam or was physically present for reis and critical portions performed by the resident/fellow. I reviewed the resident/fellows documentation and discussed the patient with the resident/fellow. I agree with the resident/fellows medical decision making as documented in the note. I personally evaluated the patient [id number] Electronic Signatures: Modesto Blackburn (Resident)) (Signed 04-Dec-2021 04:52) Authored: History of Present Illness, Allergies, Home Medication Review, Impression/Procedure, ERAS, Physical Exam, Consent, Note Completion Edy Dominguez) (Signed 04-Dec-2021 05:52) Authored: History of Present Illness, Note Completion Co-Signer: History of Present Illness, Allergies, Home Medication Review, Impression/Procedure, ERAS, Physical Exam, Consent, Note Completion Last Updated: 04-Dec-2021 05:52 by Edy Dominguez)[facility] 08-16-2021 Evaluation note* Encounter Date Diagnosis Assessment Notes Treatment Notes Treatment Clinical Notes Aug, Cough (ICD-10 - R05.9) Aug,OVID-19 (ICD-10 - U07.1) Drink plenty fluids, get plenty of rest. Continue home medications as prescribed. Use the albuterolinhaler as prescribed as needed for cough or shortness of breath. 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 Left hemithyroidectomy with [...] was identified, isolated, clipped, and cut. A [place] was placed on the superior pole being [...] Attestation: Note Completion: I am a:Resident/Fellow Attending AttmirthaationI was present for reis portions of the [...] Note Completion: I am a: Resident/Fellow Attending AttarI saw and evaluated the patient. I personally obtained the reis and critical portions of the history and physical exam or was physically present for reis and critical portions performed by the resident/fellow. I reviewed the resident/fellows documentation and discussed the patient with the resident/fellow. I agree with the resident/fellows medical decision making as documented in the note. I personally evaluated the patient [id number] Electronic Signatures: Juan Becerra (Resident)) (Signed 10-Jul-2021 [...] morning. She has not developed any symptoms TG-Lqhnizvidrvcjf-Dnxhlbqj Work Phone: [phone]) 843-589008-29-2021 History of Present illness Narrative* 46-year-old female [...] social alcohol use. She is on disability RB-Wattmyxncrretj-Wlfcefsh Work Phone: Evaluation noteNo assessment information available [facility] Work Phone: Evaluation note* Diagnosis Lumbosacral spondylosis without myelopathy- Primary [facility] Diagnosis Postprocedural hypothyroidism Postsurgical hypothyroidism Malignant neoplasm of thyroid gland (CMS-HCC) Malignant neoplasm of thyroid gland documented [facility]* Diagnosis Postoperative hypothyroidism (CMS/HCC)- Primary Postsurgical hypothyroidism Papillary thyroid carcinoma (CMS/HCC) Vitamin D deficiency Encounter for dietary consultation Class 3 severe obesity due to excess calories without serious comorbidity with body mass index (BMI) of 40.0 to 44.9 in adult (CMS/HCC) documented in this encounter [facility]* Diagnosis Dysfunctional uterine bleeding Other disorder of menstruation and other abnormal bleeding from female genital tract Iron deficiency anemia, unspecified iron deficiency anemia type documented in this encounter [facility]* Diagnosis Disorder of sacrum- Primary Disorders of sacrum Disorder of sacrum- Primary Disorders of sacrum Disorder of sacrum Disorders of sacrum documented [facility]* Diagnosis Disorder of sacrum- Primary Disorders of sacrum Disorder of sacrum- Primary Disorders of sacrum Disorder of sacrum Disorders of sacrum documented [facility]* Diagnosis Dysfunctional uterine bleeding Other disorder of menstruation and other abnormal bleeding from female genital tract Pre-operative exam Unspecified pre-operative examination documented in this encounter [facility]* Diagnosis Lumbar spondylosis- Primary Lumbosacral spondylosis without myelopathy documented [facility]* Diagnosis Postoperative hypothyroidism- Primary Postsurgical hypothyroidism Papillary thyroid carcinoma (HCC) Vitamin D deficiency Encounter for dietary consultation Class 3 severe obesity due to excess calories without serious comorbidity with body mass index (BMI) of 40.0 to 44.9 in adult ([facility]-HCC) documented in this encounter [facility]* Diagnosis Disorder of sacrum- Primary Disorders of sacrum Disorder of sacrum- Primary Disorders of sacrum Disorder of sacrum Disorders of sacrum documented [facility] this encounter [facility]* Diagnosis Dysfunctional uterine bleeding Other disorder of menstruation and other abnormal bleeding from female genital tract documented in this encounter [facility]* Diagnosis Pre-op examination Menorrhagia with regular cycle Pelvic pain Dysmenorrhea Dyspareunia in female Well woman exam with routine gynecological exam Routine gynecological examination Breast cancer screening by mammogram documented in this encounter [facility]* Diagnosis Lumbosacral spondylosis without myelopathy- Primary documented in this encounter [facility] SystemHistory general Narrative - Reported* Type Description Date Medical History heartburn Medical Historypulmonary embolismSurgical HistorytonsillectomySurgical History umbilical hernia repairSurgical HistoryappendectomySurgical Historytubal ligationSurgical Historyback surgery [id number] Historyright foot x5 Hospitalization Historysee above Plerts Other History of Present illness Narrative* 46-year-old [...] has not noticed any change in symptoms MQ-Jqrwqcigwrdfzj-Dorhxjbx Work Phone: History of Present illness NarrativePatient presents today after hemithyroidectomy. Final pathology pending. Doing well since her surgery. No issues with voice or mumhfrlakiAR-Fhstythcminsgn-Fclgbwdg Work Phone: History of Present illness NarrativePatient presents today to discuss completion thyroidectomy. 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 She has been doing well and has not had any significant changes. No issues with voice or rwcjgdkuavIH-Kehcdapirmwlaa-Meijerfg [address] Work Phone: History of Present illness NarrativePatient presents today for follow up after completion thyroidectomy. Pathology after initial surgery showed multifocal carcinoma. No cancer identified on completion. She has been doing well No issueswith voice or siurybrznqPY-Qhfsswxxljuqel-Mjkmjlea Work Phone: InstructionsNot on filedocumented in this encounter [facility] filedocumented in this encounter [facility] SystemInstructionsNot on filedocumented in this encounter [facility] SystemInstructionsNot on filedocumented in this encounter [facility] SystemInstructionsNot on filedocumented in this encounter [facility] SystemInstructionsNot on filedocumented in this encounter [facility] SystemReason for referral (narrative)No reason for referral information availableHolzer Hospital Work Phone: Summary Purpose Family History No Family History Records Found Relationship Condition Age at Onset Recorded Date/T margot mother Diabetes mellitus Unknown Advance Directives No Advanced Directives Records Found Advance Directive Response Recorded Date/ Time Advance Directives No November 10 1:38pm Advance Directive Response Recorded Date/ Time Advance Directives No June 28, 2025 1:00pm Chief Complaint Goiter, thyroid noduleGoiter, thyroid noduleGoiter, thyroid nodulepostopf/u thyroid cancerf/u thyroid cancer Reason for Referral SpecialtyDiagnoses / ProceduresReferred By ContactReferred To Contact Diagnoses Disorder of sacrum Procedures Case request operating room: INJECTION BLOCK SACROILIAC JOINT Kyler Carvajal, PA [address] [place] [address] Referral IDStatusReasonStart DateExpiration DateVisits RequestedVisits [id number] Review/ Additional Source Comments INFORMATION SOURCE (unrecogn ized section and content) DATE CREATED AUTHOR 03/02/2018 [facility] DATE CREATED AUTHOR AUTHOR'S ORGANIZ ATION 10/03/2020 [facility] DATE CREATED AUTHOR AUTHOR'S ORGANIZ ATION 12/13/2021 [facility] DATE CREATED AUTHOR AUTHOR'S ORGANIZ ATION 12/21/2021 [facility] DATE CREATED AUTHOR AUTHOR'S ORGANIZ ATION 03/27/2022 [facility] DATE CREATED AUTHOR AUTHOR'S ORGANIZ ATION 05/30/2025 [facility] DATE CREATED AUTHOR AUTHOR'S ORGANIZ ATION 06/27/2025 [facility] DATE CREATED AUTHOR AUTHOR'S ORGANIZ ATION 07/02/2025 [facility] DATE CREATED AUTHOR AUTHOR'S ORGANIZ ATION 07/03/2025 [facility] REASON FOR VISIT (unrecogniz ed section [...] Toney Montoya DO PCP - GeneralFamily Medicine09/13/20Team MemberRelationshipSpecialtyStToney Chauhan DO PCP - GeneralFamily Medicine09/13/20Team MemberRelationshipSpecialtyStart Toney Madsen MD [address] [place] [address] PCP - GeneralFamily Gsjvfkin31/4/24Team MemberTeodorahipSpecialtyStToney Chauhan MD [address] [place] [address] PCP - GeneralFamily Gpqgcymz77/4/24Team MemberRelationshipSpecialtyStToney Chauhan MD [address] [place] [address] PCP - GeneralFamily Tavtufji89/4/24Team BryantpecialtyStToney Chauhan DO [address] [place] [address] PCP - GeneralFamily Medicine09/13/20Team MemberRelationshipSpecialtyStToney Chauhan DO PCP - GeneralFamily Medicine09/13/20Team BryantpecialtyStart Toney Madsen DO PCP - GeneralFamily Medicine09/13/20Team MemberTeodorahipSpecialtyStToney Chauhan DO PCP - GeneralFamily Medicine09/13/20Team MemberRelationshipSpecialtyStart Toney Madsen MD [address] [place] [address] PCP - GeneralFamily Uvlkxjwr36/4/24 Team Status: Inactive Member Role Status Tom Cole MD Primary Care Provider Active Start: November 01, 2024 End: November 01antoni Aguilar DOAttending ProviderActiveStart: November 01, 2024 End: November 01, 2024Team MemberRelationshipSpecialtyStart Toney Madsen MD [address] [place] [address] PCP - GeneralFamily Xkurwwvf96/4/24 Team Status: Inactive Member Role Status Tom Aguilar DO Attending Provider Active Start : November 10, 2024 End: November 10, 2024Team MemberRelationshipSpecialtyStart Toney Madsen DO PCP - GeneralFamily Medicine09/13/20Team MemberRelationshipSpecialtyStart Toney Madsen MD [address] [place] [address] PCP - GeneralFamily Ejaxagnz68/4/24Team MemberRelationshipSpecialtyStart Toney Madsen MD [address] [place] [address] PCP - GeneralFamily Rypcigub13/4/24Team MemberRelationshipSpecialtyStart Toney Madsen MD [address] [place] [address] PCP - GeneralFamily Dnqpczhf45/4/24Te MemberRelationshipSpecialtyStart DateEnd Toney Jose MD [address] [place] [address] PCP - Generalmily Ubdigjhh41/4/24Te MemberRelationshipSpecialtyStart DateEnd Date Toney Montoya MD [address] [place] [address] PCP - [facility]Arch[facility]08/09/24Te MemberRelationshipSpecialtyStart DateEnd Toney Jose DO PCP - GeneralFamily Medicine09/13/20 Team Status: Inactive Member Role/Relationship Status Dates Jorge Aguilar DO Attending Provider Active Start : June 27, 2025 End: June 27, 2025 Goals (unrecognized section and content) Goals may [...] BE BASED ON THE PRIMARY CLINICAL RECORDS. [employer] [facility]. provides no warranty or guarantee of the accuracy or completeness of information in this document.
--- NOTE | 2025-07-04 15:37 | ECG_ITS ---
[facility] Test Date: 2025-07-04 Pat Name: LAURO TRAVIS Department: Room: - Gender: Female [employer]: : 1975 Requested By: [id number] Order Number: [id number] Reading MD: JAQUELIN LOPEZ Measurements Intervals [place] Rate: 66 P: 61 W[place]: 138 QRS: -8 QRSD: 76 T: 31 QT: 408 QTc: 421 Interpretive Statements 1100 Sinus rhythm 1470 with occasional supraventricular premature complexes 3113 Cannot rule out anterior myocardial infarction, probably old 8102 Low QRS voltage in chest leads 9150 abnormal ECG Compared to ECG 06/14/2025 11:55:59 Myocardial infarct finding now present Low QRS voltage now present Electronically Signed On 07-04-2025 18:40:57 EDT by JAQUELIN LOPEZ
--- NOTE | 2025-07-04 15:37 | XR_ITS ---
[place] [id number] Patient Name: LAURO TRAVIS MRN: [id number] date: 1975 Sex: F Assigned Patient Location: ER Current Patient Location: ED.MAIN Accession/Order Number: [id number] Exam Date: 07/04/2025 16:00 Report Date: 07/04/2025 16:42 At the request of: PEYMAN LEAL MD Procedure: XR chest 1V Single view chest: CLINICAL HISTORY: Dizziness, short of breath COMPARISON: CT chest 06/27/2025 FINDINGS: The heart is normal in size. The lungs are clear. The pulmonary vasculature is normal. Mediastinum and hilar regions are unremarkable. No pleural effusions are seen. Visualized bones are intact. XR/XR chest 1V IMPRESSION: NO ACUTE PROCESS. Impression dictated by: Vlad Chamberlain Jr., D.O. 07/04/2025 4:42 PM Dictation Location: [place] [address] Electronically authenticated by: [id number] Y Date: 07/04/2025 16:42
--- NOTE | 2025-07-04 15:38 | ED.GENADUL1 ---
HPI HPI - General Adult General Chief complaint: Dizziness Stated complaint: ALMOST PASSED OUT IN DR QUINN'S OFFICE Time Seen by Provider: 07/04/25 15:28 Source: patient Mode of arrival: walk-in Limitations: no limitations History of Present Illness HPI narrative: 50-year-old female presents for dizziness. 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 She felt dizzy and felt like she might pass out and recently has been feeling short of breath. In 2003 she had a pulmonary embolism and has been off of blood thinners for many years. No vaginal bleeding and no fever or cough. Related Data Home Medications ?Medication ?Instructions ?Recorded ?Confirmed buspirone 10 mg tablet 10 mg PO BID 11/03/24 06/27/25 citalopram 20 mg tablet 20 mg PO DAILY 11/03/24 06/27/25 dicyclomine 20 mg tablet 20 mg PO QID PRN abdominal pain 11/03/24 06/27/25 ferrous gluconate 324 mg (38 mg 324 mg PO DAILY 11/03/24 06/27/25 iron) tablet levothyroxine 200 mcg tablet 200 mcg PO DAILY 11/03/24 06/27/25 levothyroxine 50 mcg tablet 50 mcg PO DAILY 11/03/24 06/27/25 meclizine 25 mg tablet 25 mg PO TID PRN dizziness 11/03/24 06/27/25 meloxicam 7.5 mg tablet 7.5 mg PO DAILY PRN pain 11/03/24 06/27/25 mirtazapine 30 mg tablet 30 mg PO QPM 11/03/24 06/27/25 omeprazole 40 mg capsule,delayed 40 mg PO DAILY 11/03/24 06/27/25 release lorazepam 0.5 mg tablet 0.5 mg PO Q8H 06/14/25 06/27/25 phentermine 37.5 mg tablet 37.5 mg PO DAILY 06/14/25 06/27/25 Previous Rx's ?Medication ?Instructions ?Recorded docusate sodium 100 mg capsule 100 mg PO BID #60 caps 06/27/25 (Colace) ibuprofen 800 mg tablet 800 mg PO Q8H PRN pain 14 days #40 06/27/25 tabs oxycodone-acetaminophen 5 mg-325 1 tab PO Q6H PRN pain 5 days #20 06/27/25 mg tablet (Percocet) tabs Allergies Allergy/AdvReac Type Severity Reaction Status Date / Time No Known Drug Allergies Allergy Verified 07/04/25 15:28 Opioid HPI Opioid Management Most Recent Opioid Data: Last Pain Scale 4 06/28/25, 12:56 Last Pain Assessment 06/28/25, 16:08 Last MAR Pain Assessment 06/28/25, 12:56 Last ORT Total Score 1 06/27/25, 13:36 Last ORT Risk Category Low Risk 06/27/25, 13:36 Review of Systems ROS Narrative A ten point review of systems is negative except as noted above. [facility] Medical History (Updated 07/04/25 @ 17:12 by Dexter Berrios MD) Vertigo ?R42 - Dizziness and giddiness (ICD-10) Back pain ?M54.9 - Dorsalgia, unspecified (ICD-10) Arthritis ?M19.90 - Unspecified osteoarthritis, unspecified site (ICD-10) Anemia ?D64.9 - Anemia, unspecified (ICD-10) Pulmonary embolism (2003) ?I26.99 - Other pulmonary embolism without acute cor pulmonale (ICD-10) Panic attacks ?F41.0 - Panic disorder [episodic paroxysmal anxiety] (ICD-10) Depression ?F32.A - Depression, unspecified (ICD-10) Anxiety ?F41.9 - Anxiety disorder, unspecified (ICD-10) Asthma ?J45.909 - Unspecified asthma, uncomplicated (ICD-10) Migraine ?G43.909 - Migraine, unspecified, not intractable, without status migrainosus (ICD-10) Dizziness ?R42 - Dizziness and giddiness (ICD-10) Pelvic pain ?R10.2 - Pelvic and perineal pain (ICD-10) Abnormal uterine bleeding ?N93.9 - Abnormal uterine and vaginal bleeding, unspecified (ICD-10) Menorrhagia ?N92.0 - Excessive and frequent menstruation with regular cycle (ICD-10) IBS (irritable bowel syndrome) ?K58.9 - Irritable bowel syndrome, unspecified (ICD-10) GERD (gastroesophageal reflux disease) ?K21.9 - Gastro-esophageal reflux disease without esophagitis (ICD-10) Hypothyroidism ?E03.9 - Hypothyroidism, unspecified (ICD-10) Thyroid cancer ?C73 - Malignant neoplasm of thyroid gland (ICD-10) Surgical History (Updated 06/12/25 @ 12:09 by Emerita Cedillo NP) History of endometrial ablation (11/10/24) ?Z98.890 - Other specified postprocedural states (ICD-10) History of tonsillectomy ?Z90.89 - Acquired absence of other organs (ICD-10) History of arthroscopy of knee ?Z98.890 - Other specified postprocedural states (ICD-10) History of hernia repair ?Z98.890 - Other specified postprocedural states (ICD-10) ?Z87.19 - Personal history of other diseases of the digestive system (ICD-10) History of tubal ligation ?Z98.51 - Tubal ligation status (ICD-10) History of thyroidectomy ?Z98.890 - Other specified postprocedural states (ICD-10) ?Z90.89 - Acquired absence of other organs (ICD-10) History of foot surgery ?Z98.890 - Other specified postprocedural states (ICD-10) History of colonoscopy ?Z98.890 - Other specified postprocedural states (ICD-10) History of spinal surgery ?Z98.890 - Other specified postprocedural states (ICD-10) History of lumbosacral spine surgery ?Z98.890 - Other specified postprocedural states (ICD-10) History of appendectomy ?Z90.49 - Acquired absence of other specified parts of digestive tract (ICD-10) Family History (Updated 06/27/25 @ 07:16 by Demi Barrett RN) Sister Family history of myocardial infarction Aunt Malignant hyperthermia Mother Malignant hyperthermia Other CHF (congestive heart failure) Family history of cancer Family history of diabetes mellitus Family history of heart disease Family history of hypertension Social History (Updated 11/03/24 @ 13:43 by Emerita Cedillo NP) Within the past year, how often did you have a drink containing alcohol: monthly or less Smoking status: Never smoker Non-prescribed substance use: denies use 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 Skin:Warm, dry, no pallor noted.There is no rash noted. Head:Normocephalic, atraumatic Eye: Normal conjunctiva, no drainage Ears, Nose, Mouth, and Throat: oral mucosa is moist. Nares patent. Cardiovascular:Regular Rate and Rhythm Respiratory:Patient is in no distress, no accessory muscle use, lungs are clear to auscultation, no wheezing, rales or rhonchi Back:non-tender GI:Normal bowel sounds, no tenderness to palpation, no masses appreciated.No rebound, guarding, or rigidity noted. Musculoskeletal: The patient has no evidence of calf tenderness, no pitting edema, symmetrical pulses noted bilaterally Neurological:A&O, normal speech Psychiatric:Cooperative Constitutional Vital Signs, click to edit/add: Last Vital Signs Temp 98.3 F 07/04/25 15:28 Pulse 78 07/04/25 15:28 Resp 18 07/04/25 15:28 BP 131/87 07/04/25 15:28 Pulse Ox 99 07/04/25 15:28 O2 Del Method Room Air 07/04/25 15:28 Course Vital Signs Vital signs: Vital Signs Temperature 98.3 F 07/04/25 15:28 Pulse Rate 78 07/04/25 15:28 Respiratory Rate 18 07/04/25 15:28 Blood Pressure 131/87 07/04/25 15:28 Pulse Oximetry 99 07/04/25 15:28 Oxygen Delivery Method Room Air 07/04/25 15:28 Temperature 98.3 F 07/04/25 15:28 Pulse Rate 78 07/04/25 15:28 Respiratory Rate 18 07/04/25 15:28 Blood Pressure 131/87 07/04/25 15:28 Pulse Oximetry 99 07/04/25 15:28 Oxygen Delivery Method Room Air 07/04/25 15:28 Medical Decision Making [facility] Narrative Medical decision making narrative: Workup is negative including CTA chest. She is not anemic and renal function is normal. Troponin also negative. She is discharged home and will follow-up with her doctor if symptoms persist. Treatment diagnosis and follow-up were discussed with the patient. Differential Diagnosis Differential Diagnosis: PE, anemia, dehydration Lab Data Lab results reviewed: Yes I reviewed the patient's lab results Labs: Lab Results 07/04/25 Range/Units 15:49 WBC 10.1 (4.0-11.0) 10^3/uL RBC 4.44 (4.20-5.40) 10^6/uL Hgb 13.2 (12.0-16.0) g/dL Hct 41.2 (36.0-48.0) % MCV 92.8 (81.0-99.0) fL MCH 29.7 (26.7-34.0) pg MCHC 32.0 (29.9-35.2) g/dL RDW 13.0 (11.0-15.0) % Plt Count 217 (150-450) 10^3/uL MPV 10.6 (9.5-13.5) fL Neut % (Auto) 71.3 (43.0-75.0) % Lymph % (Auto) 19.6 L (20.5-60.0) % [place] % (Auto) 6.3 (1.7-12.0) % Eos % (Auto) 2.0 (0.9-7.0) % Baso % (Auto) 0.3 (0.2-2.0) % Neut # (Auto) 7.2 H (1.4-6.5) 10^3/uL Lymph # (Auto) 2.0 (1.2-3.8) 10^3/uL [place] # (Auto) 0.6 (0.3-0.8) 10^3/uL Eos # (Auto) 0.2 (0.0-0.7) 10^3/uL Baso # (Auto) 0.0 (0.0-0.1) 10^3/uL Abs Immat Gran (auto) 0.05 H (0.00-0.03) 10^3/uL Imm/Tot Granulo (auto) 0.5 (0.0-0.5) % Sodium 139 (136-145) mmol/L Potassium 4.4 (3.5-5.1) mmol/L Chloride 104 (98-107) mmol/L Carbon Dioxide 27.6 (21.0-32.0) mmol/L Anion Gap 11.8 BUN 13.0 (7.0-18.0) mg/dL Creatinine 0.72 (0.55-1.02) mg/dL Est GFR ( Amer) >60 (>=60 mL/min/1.73m^2) Est GFR (Non-Af Amer) >60 (>=60 mL/min/1.73m^2) BUN/Creatinine Ratio 18.1 Glucose 88 (74-106) mg/dL Calcium 8.9 (8.5-10.1) mg/dL Troponin I High Sens <4.0 L (4.0-51.3) pg/mL Imaging Data CT scan - chest: Radiologist's impression: ITS Impressions Chest X-Ray 07/04/25 15:37 IMPRESSION: NO ACUTE PROCESS. Impression dictated by: Vlad Chamberlain Jr., D.O. 07/04/2025 4:42 PM Dictation Location: [employer] Electronically authenticated by: [id number] Y Date: 07/04/2025 16:42 Chest CTA 07/04/25 16:08 IMPRESSION: No CT evidence of pulmonary embolism or acute cardiopulmonary process. Impression dictated by: Chad Mathur M.D. 07/04/2025 4:53 PM Dictation Location: [employer] Electronically authenticated by: [id number] Y Date: 07/04/2025 16:53 ECG Data Attestation: I personally reviewed and interpreted this ECG as follows: (EKG on my interpretation shows normal sinus rhythm with a rate of 66 and no acute change.) Discharge Plan Discharge Chief Complaint: Dizziness Clinical Impression: Dizziness Patient Disposition: Home, Self-Care Time of Disposition Decision: 17:12 Condition: Good Mode of Transportation: Private Vehicle Prescriptions / Home Meds: No Action lorazepam 0.5 mg tablet 0.5 mg PO Q8H phentermine 37.5 mg tablet 37.5 mg PO DAILY ibuprofen 800 mg tablet 800 mg PO Q8H PRN (Reason: pain) 14 Days Qty: 40 0RF oxycodone-acetaminophen [Percocet] 5-325 mg tablet 1 tab PO Q6H PRN (Reason: pain) 5 Days Qty: 20 0RF Rx Instructions: g89.18 docusate sodium [Colace] 100 mg capsule 100 mg PO BID Qty: 60 0RF omeprazole 40 mg capsule,delayed release(DR/EC) 40 mg PO DAILY meloxicam 7.5 mg tablet 7.5 mg PO DAILY PRN (Reason: pain) citalopram 20 mg tablet 20 mg PO DAILY dicyclomine 20 mg tablet 20 mg PO QID PRN (Reason: abdominal pain) meclizine 25 mg tablet 25 mg PO TID PRN (Reason: dizziness) levothyroxine 50 mcg tablet 50 mcg PO DAILY mirtazapine 30 mg tablet 30 mg PO QPM buspirone 10 mg tablet 10 mg PO BID levothyroxine 200 mcg tablet 200 mcg PO DAILY ferrous gluconate 324 mg (38 mg iron) tablet 324 mg PO DAILY Print Language: Cam[place]onian Instructions: Dizziness (ED) Referrals: CARL MONTOYA [Primary Care Provider, Family Practice] - 1 week
[2025-07-04 15:59] LABS: Hematocrit 41.2 % (36.0-48.0); Hemoglobin 13.2 g/dL (12.0-16.0); Immature Granulocytes Abs Auto 0.05 10^3/uL (0.00-0.03); Immature Granulocytes Pct Auto 0.5 % (0.0-0.5); Lymphocytes Absolute Auto 2.0 10^3/uL (1.2-3.8); Mean Corpuscular HGB Conc 32.0 g/dL (29.9-35.2); Mean Corpuscular Hemoglobin 29.7 pg (26.7-34.0); Mean Corpuscular Volume 92.8 fL (81.0-99.0); Platelet Count 217 10^3/uL (150-450); Red Blood Count 4.44 10^6/uL (4.20-5.40); White Blood Count 10.1 10^3/uL (4.0-11.0)
--- NOTE | 2025-07-04 16:08 | CT_ITS ---
The [address] [address] Patient Name: LAURO TRAVIS MRN: [id number] date: 1975 Sex: F Assigned Patient Location: ED.MAIN Current Patient Location: ED.MAIN Accession/Order Number: [id number] Exam Date: 07/04/2025 16:17 Report Date: 07/04/2025 16:53 At the request of: PEYMAN LEAL MD Procedure: CT angio chest CT ANGIOGRAM OF THE CHEST, PULMONARY EMBOLISM PROTOCOL: CLINICAL INFORMATION: Dizziness, shortness breath, recent surgery, history of pulmonary embolism elevated d-dimer TECHNIQUE: Following intravenous injection of contrast CT scans of the chest were obtained using pulmonary embolism protocol. Coronal and sagittal reconstructed images, as well as volume rendered CT pulmonary angiographic images were also submitted.The CT exam was performed using one or more of the following dose reduction techniques: Automated exposure control, adjustment of the MA and/or Kv according to patient size, or use of the iterative reconstruction technique. FINDINGS: Pulmonary Vasculature: Contrast bolus is adequate for evaluation of pulmonary embolism. Pulmonary trunk appears nondilated. No filling defects are identified to suggest pulmonary embolism. Mediastinum : Thoracic aorta is normal in caliber. No pericardial effusion. No lymphadenopathy. The esophagus is grossly unremarkable. Lungs: Minor hypoventilatory changes. No focal consolidation, pneumothorax or pleural effusion. Upper abdomen: No acute findings Soft tissue/bones: Soft tissues surrounding the chest wall demonstrate no acute findings. Osseous structures demonstrate degenerative change. CT/CT angio chest IMPRESSION: No CT evidence of pulmonary embolism or acute cardiopulmonary process. Impression dictated by: Chad Mathur M.D. 07/04/2025 4:53 PM Dictation Location: [place] [address] Electronically authenticated by: [id number] Y Date: 07/04/2025 16:53
[2025-07-04 16:17] LABS: Anion Gap 11.8; Blood Urea Nitrogen 13.0 mg/dL (7.0-18.0); Calcium 8.9 mg/dL (8.5-10.1); Carbon Dioxide 27.6 mmol/L (21.0-32.0); Chloride 104 mmol/L (98-107); Estimated GFR (African America >60 (>=60 mL/min/1.73m^2); Estimated GFR (Non-African Ame >60 (>=60 mL/min/1.73m^2); Glucose 88 mg/dL (74-106); Potassium 4.4 mmol/L (3.5-5.1); Sodium 139 mmol/L (136-145)
== END 2025-07-04 17:22 | disposition home or self-care (01) ==
PROVIDERS: Emergency Provider Emergency Medicine; PCP Family Medicine
DX: R42 Dizziness and giddiness (principal); Z90.710 Acquired absence of both cervix and uterus; Z86.711 Personal history of pulmonary embolism
CPT/HCPCS: 36415; 71045; 71275; 80048; 84484; 85025; 93005; 99285; Q9967